=== PATIENT | female | born 1985 | race African-American/Black ===

== ENCOUNTER 2016-05-18 02:22 | Emergency (ER) | payer OTHER ==
[~2016-05-18 02:22] MED LIST: HYDR-3535 PO
[2016-05-18 02:24] VITALS: BP 118/76; PULSE 114; RESP 20; TEMP 98.7; O2SAT 90
[2016-05-18] MEDS ORDERED: SODIUM CHLOR 0.9% 1000 ML INJ 1,000 ML IV ONE (07:38)
[2016-05-18 07:41] LABS: MEAN CORPUSCULAR HGB CONC 36.5 % (32.0-36.0)
[2016-05-18] MEDS ORDERED: diphenhydrAMINE HCL 50 MG/ML VIAL IV ONE (07:45)
[2016-05-18] MEDS ORDERED: HYDROmorphone HCL PF 1 MG/ML VIAL IVS ONE ×2 (07:45→09:45)
[2016-05-18] MEDS ORDERED: SODIUM CHLORIDE 0.9% FLUSH 5 ML FLUSH IVF PRN (07:45)
[2016-05-18 08:18] VITALS: BP 115/66; PULSE 79; RESP 16; O2SAT 95
--- NOTE | 2016-05-18 08:32 | PD ---
HPI Chief Complaint: Sickle Cell Time Seen by Provider: 07:30 Travel History International Travel<30 days: No Contact w/Intl Traveler<30days: No Traveled to known affect area: No History of Present Illness HPI 30-year-old woman with chronic pain and sickle cell anemia presents to the emergency department complaining exacerbation of her chronic back and legs pain , consistent with previous pain crises. She is otherwise well. No fevers or chills. No other complaints. She takes methadone for chronic pain, and Lortab for breakthrough. History Past Medical History Narrative Medical Chronic Back Pain Depression Hemosiderosis History of Sickle-Cell Anemia Influenza Vaccination: Yes PNEUMOCCOCAL Vaccine (Year): 2 LMP: 05/18/2016 : 2 Para: 1 Social History Alcohol Use: No Tobacco Use: No Allergies-Medications (Allergen,Severity, Reaction): Coded Allergies: Morphine (Verified Allergy, Severe, RASH, 05/18/16) *MDRO Multi-Drug Resistant Organism (Verified Allergy, Unknown, 05/18/16) Reported Meds & Prescriptions Reported Meds & Active Scripts Active Reported Lortab (Hydrocodone-Acetaminophen) 10-325 Mg Tab 1 Tab PO Q4H PRN Review of Systems Except as stated in HPI: all other systems reviewed are Neg Physical Exam Narrative GENERAL: 30 year-old woman, SKIN: Warm and dry. HEAD: Atraumatic. Normocephalic. CARDIOVASCULAR: Regular rate and rhythm. No murmur appreciated. RESPIRATORY: No accessory muscle use. Clear to auscultation. Breath sounds equal bilaterally. GASTROINTESTINAL: Abdomen soft, non-tender, nondistended. Hepatic and splenic margins not palpable. MUSCULOSKELETAL: No obvious deformities. No edema. NEUROLOGICAL: Awake and alert. No obvious cranial nerve deficits. Motor grossly within normal limits. Normal speech. Data Data Last Documented VS Vital Signs Date Time Temp Pulse Resp B/P Pulse Ox O2 Delivery O2 Flow Rate FiO2 05/18/16 08:18 79 16 115/66 95 Room Air 05/18/16 02:24 98.7 Orders Complete Blood Count With Diff (05/18/16 07:38) Comprehensive Metabolic Panel (05/18/16 07:38) Retic Count (05/18/16 07:38) Ecg Monitoring (05/18/16 07:38) Iv Access Insert/Monitor (05/18/16 07:38) Oximetry (05/18/16 07:38) Sodium Chloride 0.9% Flush (Ns Flush) (05/18/16 07:45) Sodium Chlor 0.9% 1000 Ml Inj (Ns 1000 M (05/18/16 07:38) Diphenhydramine Inj (Benadryl Inj) (05/18/16 07:45) Hydromorphone Pf Inj (Dilaudid Pf Inj) (05/18/16 07:45) Hydromorphone Pf Inj (Dilaudid Pf Inj) (05/18/16 09:45) Diphenhydramine Inj (Benadryl Inj) (05/18/16 09:38) Labs Laboratory Tests Test 05/18/16 08:30 White Blood Count 8.4 TH/MM3 Red Blood Count 2.49 MIL/MM3 Hemoglobin 7.4 GM/DL Hematocrit 20.2 % Mean Corpuscular Volume 81.0 FL Mean Corpuscular Hemoglobin 29.6 PG Mean Corpuscular Hemoglobin 36.5 % Concent Red Cell Distribution Width 23.5 % Platelet Count 355 TH/MM3 Mean Platelet Volume 8.2 FL Neutrophils (%) (Auto) 42.1 % Lymphocytes (%) (Auto) 42.8 % Monocytes (%) (Auto) 10.0 % Eosinophils (%) (Auto) 2.9 % Basophils (%) (Auto) 2.2 % Neutrophils # (Auto) 3.5 TH/MM3 Lymphocytes # (Auto) 3.6 TH/MM3 Monocytes # (Auto) 0.8 TH/MM3 Eosinophils # (Auto) 0.2 TH/MM3 Basophils # (Auto) 0.2 TH/MM3 CBC Comment AUTO DIFF Reticulocyte Count 6.6 % Absolute Reticulocyte Count 163.3 MIL/L Sodium Level 140 MEQ/L Potassium Level 3.6 MEQ/L Chloride Level 107 MEQ/L Carbon Dioxide Level 26.7 MEQ/L Anion Gap 6 MEQ/L Blood Urea Nitrogen 6 MG/DL Creatinine 0.41 MG/DL Estimat Glomerular Filtration 218 ML/MIN Rate Random Glucose 89 MG/DL Calcium Level 8.4 MG/DL Total Bilirubin 2.2 MG/DL Aspartate Amino Transf 66 U/L (AST/SGOT) Alanine Aminotransferase 14 U/L (ALT/SGPT) Alkaline Phosphatase 91 U/L Total Protein 7.5 GM/DL Albumin 3.4 GM/DL [facility] Medical Decision Making Medical Screen Exam Complete: Yes Emergency Medical Condition: Yes Interpretation(s) LABS: CBC remarkable for mild anemia. Retake count 6.6 Total bili 2.2 Differential Diagnosis Acute on chronic back pain, sickle cell crisis, other Narrative Course Medical decision making INITIAL: 30 year-old woman, well-known to the ED, sickle cell with frequent crises. We'll check labs, fluids and pain medicine, likely secondary dose and discharge. Diagnosis Primary Impression: Anemia, sickle cell with crisis Additional Instructions: Continue current medications. 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 Return to the emergency department for any new or worsening symptoms. Med/Other Pt SpecificInfo: No Change to Meds Disposition: 01 DISCHARGE HOME Condition: Stable Balbir Clark MD May 18, 2016 08:32
[2016-05-18 09:16] LABS: AUTOMATED NEUTROPHIL # 3.5 TH/MM3 (1.8-7.7); BASOPHIL # 0.2 TH/MM3 (0-0.2); BASOPHIL % 2.2 % (0.0-2.0); EOSINOPHIL # 0.2 TH/MM3 (0-0.4); EOSINOPHIL % 2.9 % (0.0-4.0); LYMPH % 42.8 % (9.0-44.0); LYMPHOCYTE # 3.6 TH/MM3 (1.0-4.8); MEAN CORPUSCULAR HEMOGLOBIN 29.6 PG (27.0-34.0); NEUT % 42.1 % (16.0-70.0); PLATELET COUNT 355 TH/MM3 (150-450); RED BLOOD COUNT 2.49 MIL/MM3 (4.00-5.30); RED CELL DISTRIBUTION WIDTH 23.5 % (11.6-17.2); RETIC % 6.6 % (0.4-3.0); WHITE BLOOD COUNT 8.4 TH/MM3 (4.0-11.0)
[2016-05-18 09:18] LABS: HEMO FLAGS AUTO DIFF; REVIEW FLAG FINAL
[2016-05-18 09:19] LABS: HEMATOCRIT 20.2 % (35.0-46.0)
[2016-05-18 09:23] LABS: ALKALINE PHOSPHATASE 91 U/L (45-117); ALT (GPT) 14 U/L (10-53); ANION GAP 6 MEQ/L (5-15); AST (GOT) 66 U/L (15-37); BICARBONATE 26.7 MEQ/L (21.0-32.0); BLOOD UREA NITROGEN 6 MG/DL (7-18); CHLORIDE 107 MEQ/L (98-107); GLOMERULAR FILTRATION RATE 218 ML/MIN (>89); SODIUM (NA) 140 MEQ/L (136-145); TOTAL BILIRUBIN ADULT 2.2 MG/DL (0.2-1.0)
[2016-05-18 09:24] LABS: POTASSIUM 3.6 MEQ/L (3.5-5.1)
[2016-05-18] MEDS ORDERED: diphenhydrAMINE HCL 50 MG/ML VIAL IV PUSH STA (09:38)
[2016-05-18 10:00] LABS: BANDS 3 % (0-6); CORRECTED NUCLEATED RBC 3 /100 WBC (0-0); EOSINOPHILS 5 % (0-4); MYELOCYTES 1 % (0-0); POLYS (SEG NEUTROPHILS) 44 % (16-70); SICKLE CELLS 2+ (NORMAL); WBC DIFF SAMPLE 100
[2016-05-18 10:01] LABS: PLATELET ESTIMATE SMEAR NORMAL (NORMAL); PLATELET MORPHOLOGY NORMAL (NORMAL); POLYCHROMASIA 2.6 % (0.0-1.9); SCAN/DIFF FINAL DIFF MANUAL; TARGET CELLS 1+ (NORMAL)
[2016-08-26] MEDS ORDERED: METH5TAB PO (11:49)
== END 2016-05-18 10:37 | disposition home or self-care (01) ==
LOC: NEPC 02:22
DX: D57.00 Hb-SS disease with crisis, unspecified (principal); G89.29 Other chronic pain
CPT/HCPCS: 80053; 85007; 85027; 85044; 96361; 96374; 96375; 96376; 99284; J1170; J1200; J1642; J7030

== ENCOUNTER 2016-06-01 02:46 | Emergency (ER) | payer OTHER ==
[~2016-06-01] VITALS: Ht 152.4 cm; Wt 58.0 kg
[2016-06-01 02:51] VITALS: BP 109/75; PULSE 96; RESP 20; TEMP 98.7; O2SAT 88
[2016-06-01] MEDS ORDERED: SODIUM CHLOR 0.9% 1000 ML INJ 1,000 ML IV ONE (03:15)
[2016-06-01] MEDS ORDERED: SODIUM CHLORIDE 0.9% FLUSH 5 ML FLUSH IVF PRN (03:15)
[2016-06-01] MEDS ORDERED: diphenhydrAMINE HCL 50 MG/ML VIAL IV PUSH ONE ×2 (04:00→08:00)
[2016-06-01] MEDS ORDERED: HYDROmorphone HCL PF 1 MG/ML VIAL IV PUSH ONE ×2 (04:00→08:00)
--- NOTE | 2016-06-01 04:19 | PD ---
HPI Chief Complaint: Sickle Cell Time Seen by Provider: 03:15 Travel History International Travel<30 days: No Contact w/Intl Traveler<30days: No Traveled to known affect area: No History of Present Illness HPI 30-year-old female with history of sickle cell anemia here for evaluation of sickle cell pain crisis. The patient reports having lower back pain and pain in her bilateral lower extremities. This is typical for her sickle cell crisis. She states that her menstrual period started yesterday and this usually triggers her sickle cell disease. No chest pain or dyspnea. No fevers or chills. PFSH Past Medical History Hx Anticoagulant Therapy: No Anemia: Yes (WITH MULTIPLE BLOOD TRANSFUSIONS) Arthritis: No Asthma: No Autoimmune Disease: No Blood Disorders: Yes (SICKLE CELL) Anxiety: No Depression: No Cancer: No Cardiovascular Problems: Yes (CHEST PAIN) Chemotherapy: No Chest Pain: Yes Congestive Heart Failure: No COPD: No Cerebrovascular Accident: No Diabetes: No Diminished Hearing: No Endocrine: No Gastrointestinal Disorders: Yes (GALLSTONES) GERD: No Genitourinary: Yes (MULTIPLE UTIs) Headaches: Yes Hiatal Hernia: No Immune Disorder: No Implanted Vascular Access Dvce: Yes (RIGHT CHEST INFUSAPORT) Insomnia: Yes Kidney Stones: No Musculoskeletal: Yes (BACK PAIN) Neurologic: Yes Psychiatric: No Reproductive: No Respiratory: No Immunizations Current: Yes Migraines: No Pneumonia: Yes Radiation Therapy: No Renal Failure: No Seizures: No Sickle Cell Disease: Yes Thyroid Disease: No Ulcer: No PNEUMOCCOCAL Vaccine (Year): 2 : 2 Para: 1 Miscarriage: 1 : 0 Tubal Ligation: Yes (IN 2007) Past Surgical History Abdominal Surgery: Yes AICD: No Arteriovenous Shunt: No Body Medical Devices: INFUSAPORT Cardiac Surgery: No Section: Yes Cholecystectomy: Yes (1994) Ear Surgery: No Endocrine Surgery: No Eye Surgery: No Genitourinary Surgery: No Gynecologic Surgery: Yes Insulin Pump: No Joint Replacement: No Oral Surgery: Yes Pacemaker: No Thoracic Surgery: Yes (CHEST PORT ) Tonsillectomy: Yes Other Surgery: Yes (RIGHT CHEST INFUSAPORT ) Social History Alcohol Use: No Tobacco Use: No Substance Use: No Allergies-Medications (Allergen,Severity, Reaction): Coded Allergies: Morphine (Verified Allergy, Severe, RASH, 06/01/16) *MDRO Multi-Drug Resistant Organism (Verified Allergy, Unknown, 06/01/16) Reported Meds & Prescriptions Reported Meds & Active Scripts Active Reported Lortab (Hydrocodone-Acetaminophen) 10-325 Mg Tab 1 Tab PO Q4H PRN Review of Systems Except as stated in HPI: all other systems reviewed are Neg Physical Exam Narrative GENERAL: Well-developed, well-nourished, comfortable, on cell phone, no acute distress. SKIN: Warm and dry. No rash. HEAD: Atraumatic. Normocephalic. EYES: Pupils equal and round. No scleral icterus. No injection or drainage. ENT: Mucous membranes pink and moist. NECK: Trachea midline. No JVD. No nuchal rigidity. CARDIOVASCULAR: Regular rate and rhythm. RESPIRATORY: No accessory muscle use. Clear to auscultation. Breath sounds equal bilaterally. GASTROINTESTINAL: Abdomen soft, non-tender, nondistended. MUSCULOSKELETAL: No obvious deformities. No clubbing. No cyanosis. No edema. No warmth or swelling to any joint or extremity. No dactylitis. Normal range of motion in all joints and extremities. NEUROLOGICAL: Awake and alert. No obvious cranial nerve deficits. Motor grossly within normal limits. Normal speech. PSYCHIATRIC: Appropriate mood and affect; insight and judgment normal. Data Data Last Documented VS Vital Signs Date Time Temp Pulse Resp B/P Pulse Ox O2 Delivery O2 Flow Rate FiO2 06/01/16 07:15 83 16 116/74 99 Nasal Cannula 2 06/01/16 02:51 98.7 Orders Basic Metabolic Panel (Bmp) (06/01/16 03:15) Complete Blood Count With Diff (06/01/16 03:15) Retic Count (06/01/16 03:15) Ecg Monitoring (06/01/16 03:15) Iv Access Insert/Monitor (06/01/16 03:15) Oximetry (06/01/16 03:15) Sodium Chloride 0.9% Flush (Ns Flush) (06/01/16 03:15) Sodium Chlor 0.9% 1000 Ml Inj (Ns 1000 M (06/01/16 03:15) Hydromorphone Pf Inj (Dilaudid Pf Inj) (06/01/16 04:00) Diphenhydramine Inj (Benadryl Inj) (06/01/16 04:00) Urinalysis - C+S If Indicated (06/01/16 03:47) Labs Laboratory Tests Test 06/01/16 05:40 White Blood Count 11.2 TH/MM3 Red Blood Count 2.13 MIL/MM3 Hemoglobin 6.5 GM/DL Hematocrit 17.6 % Mean Corpuscular Volume 82.9 FL Mean Corpuscular Hemoglobin 30.7 PG Mean Corpuscular Hemoglobin 37.0 % Concent Red Cell Distribution Width 24.2 % Platelet Count 293 TH/MM3 Mean Platelet Volume 8.6 FL Neutrophils (%) (Auto) 43.7 % Lymphocytes (%) (Auto) 44.1 % Monocytes (%) (Auto) 9.1 % Eosinophils (%) (Auto) 2.5 % Basophils (%) (Auto) 0.6 % Neutrophils # (Auto) 4.9 TH/MM3 Lymphocytes # (Auto) 4.9 TH/MM3 Monocytes # (Auto) 1.0 TH/MM3 Eosinophils # (Auto) 0.3 TH/MM3 Basophils # (Auto) 0.1 TH/MM3 CBC Comment AUTO DIFF Reticulocyte Count 9.3 % Absolute Reticulocyte Count 198.0 MIL/L Sodium Level 142 MEQ/L Potassium Level 3.9 MEQ/L Chloride Level 109 MEQ/L Carbon Dioxide Level 26.1 MEQ/L Anion Gap 7 MEQ/L Blood Urea Nitrogen 8 MG/DL Creatinine 0.49 MG/DL Estimat Glomerular Filtration 177 ML/MIN Rate Random Glucose 106 MG/DL Calcium Level 7.7 MG/DL [facility] Medical Decision Making Medical Screen Exam Complete: Yes Emergency Medical Condition: Yes Medical Record Reviewed: Yes Differential Diagnosis Sickle cell crisis, anemia, septic arthritis unlikely Narrative Course Vital signs reviewed. CBC is remarkable for hemoglobin 6.5, hematocrit 17.6. The patient's baseline hemoglobin is between 7 and 8. BMP is unremarkable. Call placed to the patient's contact lens polisher. At approximately 7:00 PM patient was signed out to Dr. Clark who will follow with hematology recommendations. Mitchell Bonds MD Jun 01, 2016 04:19
[2016-06-01 06:36] LABS: AUTOMATED NEUTROPHIL # 4.9 TH/MM3 (1.8-7.7); BASOPHIL # 0.1 TH/MM3 (0-0.2); BASOPHIL % 0.6 % (0.0-2.0); EOSINOPHIL # 0.3 TH/MM3 (0-0.4); EOSINOPHIL % 2.5 % (0.0-4.0); LYMPH % 44.1 % (9.0-44.0); LYMPHOCYTE # 4.9 TH/MM3 (1.0-4.8); MEAN CELL VOLUME 82.9 FL (80.0-100.0); MEAN CORPUSCULAR HEMOGLOBIN 30.7 PG (27.0-34.0); MONO % 9.1 % (0.0-8.0); NEUT % 43.7 % (16.0-70.0); PLATELET COUNT 293 TH/MM3 (150-450); RED BLOOD COUNT 2.13 MIL/MM3 (4.00-5.30); RED CELL DISTRIBUTION WIDTH 24.2 % (11.6-17.2); RETIC % 9.3 % (0.4-3.0); WHITE BLOOD COUNT 11.2 TH/MM3 (4.0-11.0)
[2016-06-01 06:39] LABS: BICARBONATE 26.1 MEQ/L (21.0-32.0)
[2016-06-01 06:43] LABS: POTASSIUM 3.9 MEQ/L (3.5-5.1)
[2016-06-01 06:44] LABS: HEMO FLAGS AUTO DIFF; REVIEW FLAG FINAL
[2016-06-01 06:48] LABS: HEMATOCRIT 17.6 % (35.0-46.0)
[2016-06-01 07:15] VITALS: BP_SYST 116; BP_DIAS 60; BP_DIAS 74; PULSE 83; RESP 16; RESP 18; O2SAT 99
[2016-06-01] MEDS ORDERED: SODIUM CHLOR 0.9% 250 ML INJ 250 ML IV ONE (07:45)
--- NOTE | 2016-06-01 07:53 | PD ---
Data Data Last Documented VS Vital Signs Date Time Temp Pulse Resp B/P Pulse Ox O2 Delivery O2 Flow Rate FiO2 06/01/16 07:15 83 16 116/74 99 Nasal Cannula 2 06/01/16 02:51 98.7 Orders Basic Metabolic Panel (Bmp) (06/01/16 03:15) Complete Blood Count With Diff (06/01/16 03:15) Retic Count (06/01/16 03:15) Ecg Monitoring (06/01/16 03:15) Iv Access Insert/Monitor (06/01/16 03:15) Oximetry (06/01/16 03:15) Sodium Chloride 0.9% Flush (Ns Flush) (06/01/16 03:15) Sodium Chlor 0.9% 1000 Ml Inj (Ns 1000 M (06/01/16 03:15) Hydromorphone Pf Inj (Dilaudid Pf Inj) (06/01/16 04:00) Diphenhydramine Inj (Benadryl Inj) (06/01/16 04:00) Urinalysis - C+S If Indicated (06/01/16 03:47) Chest, Single Ap (06/01/16 ) Sodium Chlor 0.9% 250 Ml Inj (Ns 250 Ml (06/01/16 07:45) Hydromorphone Pf Inj (Dilaudid Pf Inj) (06/01/16 08:00) Diphenhydramine Inj (Benadryl Inj) (06/01/16 08:00) Heparin Central Flush (Heparin Central F (06/01/16 08:00) Labs Laboratory Tests Test 06/01/16 05:40 White Blood Count 11.2 TH/MM3 Red Blood Count 2.13 MIL/MM3 Hemoglobin 6.5 GM/DL Hematocrit 17.6 % Mean Corpuscular Volume 82.9 FL Mean Corpuscular Hemoglobin 30.7 PG Mean Corpuscular Hemoglobin 37.0 % Concent Red Cell Distribution Width 24.2 % Platelet Count 293 TH/MM3 Mean Platelet Volume 8.6 FL Neutrophils (%) (Auto) 43.7 % Lymphocytes (%) (Auto) 44.1 % Monocytes (%) (Auto) 9.1 % Eosinophils (%) (Auto) 2.5 % Basophils (%) (Auto) 0.6 % Neutrophils # (Auto) 4.9 TH/MM3 Lymphocytes # (Auto) 4.9 TH/MM3 Monocytes # (Auto) 1.0 TH/MM3 Eosinophils # (Auto) 0.3 TH/MM3 Basophils # (Auto) 0.1 TH/MM3 CBC Comment AUTO DIFF Reticulocyte Count 9.3 % Absolute Reticulocyte Count 198.0 MIL/L Sodium Level 142 MEQ/L Potassium Level 3.9 MEQ/L Chloride Level 109 MEQ/L Carbon Dioxide Level 26.1 MEQ/L Anion Gap 7 MEQ/L Blood Urea Nitrogen 8 MG/DL Creatinine 0.49 MG/DL Estimat Glomerular Filtration 177 ML/MIN Rate Random Glucose 106 MG/DL Calcium Level 7.7 MG/DL [facility] Supervised Visit with KYE: Yes Interpretation(s) My review of chest x-ray: Negative. LABS: CBC remarkable for mild leukocytosis, anemia with a hemoglobin of 6.5, reticulocyte count 9.3 BMP is unremarkable Narrative Course Qian Ching, 30 year-old woman with sickle cell disease, one on the myself in the emergency department. Presents with back pain and vaso-occlusive pain crisis. Hemoglobin is low at 6.5. Normally runs about 7.5 or so. Pulse ox is a little bit low on arrival. Chest x-rays clear. She's also due to start her menstrual cycle shortly. I spoke with Dr. Lock, on-call for Dr. Stone. Recommended transfusion of 1 unit. I spoke with the patient. Planning on admission for transfusion. She has a lot of antibodies and states that normally takes some time to get blood ready for her. She does not want to stay in the hospital. States she was not expecting to stay. She sees oncology every week. She would like to be discharged and follow-up with him to arrange for transfusion. She is very familiar with this disease process, and states she will return if she has any complications including worsening anemia symptoms. Diagnosis Primary Impression: Anemia, sickle cell with crisis Additional Instruction: Return to the emergency department for any chest pain, shortness of breath, or any other new or worsening symptoms. Follow-up with oncology as scheduled. Return to the emergency department for any new or worsening symptoms. Med/Other Pt SpecificInfo: No Change to Meds Disposition: 01 DISCHARGE HOME Condition: Stable Balbir Clark MD Jun 01, 2016 07:53
[2016-06-01 08:16] VITALS: BP 118/79; PULSE 82; RESP 18; TEMP 98.3; O2SAT 97
[2016-06-01 08:27] LABS: CORRECTED NUCLEATED RBC 10 /100 WBC (0-0); EOSINOPHILS 6 % (0-4); POLYS (SEG NEUTROPHILS) 36 % (16-70); WBC DIFF SAMPLE 100
[2016-06-01 08:28] LABS: PLATELET ESTIMATE SMEAR NORMAL (NORMAL); PLATELET MORPHOLOGY ENLARGED (NORMAL); SCAN/DIFF FINAL DIFF MANUAL; SICKLE CELLS 3+ (NORMAL)
[2016-06-01 08:29] LABS: HOWELL-JOLLY BODIES PRESENT (NONE SEEN)
--- NOTE | 2016-06-01 09:18 | RADRPT ---
EXAM DATE/TIME: 06/01/2016 07:49 [facility] COMPARISON: CHEST SINGLE AP, April 28, 2016, 14:43. INDICATIONS : Shortness of breath. MEDICAL HISTORY : Sickle Cell disease. SURGICAL HISTORY : Port placement. ENCOUNTER: Initial ACUITY: 1 day PAIN SCORE: 0/10 LOCATION: chest FINDINGS: Portable AP view of the chest demonstrates a normal-sized cardiac silhouette. No effusion, consolidat ion, or pneumothorax is visualized. The bones and soft tissues demonstrate no acute abnormality. Lung s are underinflated. Right chest wall [id number] remains present. CONCLUSION: Underinflation without acute finding identified. Michael Ellsworth MD on June 01, 2016 at 9:16 Board Certified Radiologist. This report was verified electronically.
[2016-08-26] MEDS ORDERED: METH5TAB PO (11:49)
== END 2016-06-01 09:52 | disposition home or self-care (01) ==
LOC: NEPE 02:46
DX: D64.9 Anemia, unspecified (principal); D57.1 Sickle-cell disease without crisis
CPT/HCPCS: 71010; 80048; 85007; 85027; 85044; 96361; 96374; 96375; 96376; 99284; J1170; J1200; J7030

== ENCOUNTER 2016-06-09 05:43 | Emergency (ER) | payer OTHER ==
[~2016-06-09] VITALS: Ht 152.4 cm; Wt 58.0 kg
[2016-06-09 05:46] VITALS: BP 132/58; PULSE 95; RESP 16; TEMP 98.3; O2SAT 96
[2016-06-09] MEDS ORDERED: ONDANSETRON HCL 4 MG/2 ML VIAL IV PUSH ONE (06:30)
[2016-06-09] MEDS ORDERED: diphenhydrAMINE HCL 50 MG/ML VIAL IV PUSH ONE (06:30)
[2016-06-09] MEDS ORDERED: SODIUM CHLOR 0.9% 1000 ML INJ 1,000 ML IV ONE (06:30)
[2016-06-09] MEDS ORDERED: HYDROmorphone HCL PF 1 MG/ML VIAL IV PUSH ONE (06:30)
[2016-06-09 06:31] LABS: MEAN CORPUSCULAR HGB CONC 37.1 % (32.0-36.0)
--- NOTE | 2016-06-09 06:33 | PD ---
HPI Chief Complaint: Sickle Cell Time Seen by Provider: 06:18 Travel History International Travel<30 days: No Contact w/Intl Traveler<30days: No Traveled to known affect area: No History of Present Illness HPI 30-year-old female complains of back pain extremity pain. Patient has history of sickle cell disease. Patient has frequent sickle cell crisis. Patient states that she started having back pain extremity pain 2 days ago. Patient denies any fever chills. Patient denies any coughing congestion. Patient denies any headache. Patient denies any chest pain or shortness of breath. Patient denies abdominal pain. PFSH Past Medical History Hx Anticoagulant Therapy: No Anemia: Yes (WITH MULTIPLE BLOOD TRANSFUSIONS) Arthritis: No Asthma: No Autoimmune Disease: No Blood Disorders: Yes (SICKLE CELL) Anxiety: No Depression: No Cancer: No Cardiovascular Problems: Yes (CHEST PAIN) Chemotherapy: No Chest Pain: Yes Congestive Heart Failure: No COPD: No Cerebrovascular Accident: No Diabetes: No Diminished Hearing: No Endocrine: No Gastrointestinal Disorders: Yes (GALLSTONES) GERD: No Genitourinary: Yes (MULTIPLE UTIs) Headaches: Yes Hiatal Hernia: No Immune Disorder: No Implanted Vascular Access Dvce: Yes (RIGHT CHEST INFUSAPORT) Insomnia: Yes Kidney Stones: No Musculoskeletal: Yes (BACK PAIN) Neurologic: Yes Psychiatric: No Reproductive: No Respiratory: No Immunizations Current: Yes Migraines: No Pneumonia: Yes Radiation Therapy: No Renal Failure: No Seizures: No Sickle Cell Disease: Yes Thyroid Disease: No Ulcer: No PNEUMOCCOCAL Vaccine (Year): 2 ?: Not LMP: 06/07/16 : 2 Para: 1 Miscarriage: 1 : 0 Tubal Ligation: Yes (IN 2007) Past Surgical History Abdominal Surgery: Yes AICD: No Arteriovenous Shunt: No Body Medical Devices: INFUSAPORT Cardiac Surgery: No Section: Yes Cholecystectomy: Yes (1994) Ear Surgery: No Endocrine Surgery: No Eye Surgery: No Genitourinary Surgery: No Gynecologic Surgery: Yes Insulin Pump: No Joint Replacement: No Oral Surgery: Yes Pacemaker: No Thoracic Surgery: Yes (CHEST PORT ) Tonsillectomy: Yes Other Surgery: Yes (RIGHT CHEST INFUSAPORT ) Social History Alcohol Use: No Tobacco Use: No Substance Use: No Allergies-Medications (Allergen,Severity, Reaction): Coded Allergies: Morphine (Verified Allergy, Severe, RASH, 06/09/16) *MDRO Multi-Drug Resistant Organism (Verified Allergy, Unknown, 06/09/16) Reported Meds & Prescriptions Reported Meds & Active Scripts Active No Active Prescriptions or Reported Medications Review of Systems General / Constitutional: No: Fever Eyes: No: Visual changes HENT: No: Headaches Cardiovascular: No: Chest Pain or Discomfort Respiratory: No: Shortness of Breath Gastrointestinal: No: Abdominal Pain Genitourinary: No: Dysuria Musculoskeletal: No: Pain Skin: No Rash Neurologic: No: Weakness Psychiatric: No: Depression Endocrine: No: Polydipsia Hematologic/Lymphatic: No: Easy Bruising Physical Exam Narrative GENERAL: Well-nourished, well-developed patient. SKIN: Warm and dry. HEAD: Normocephalic. EYES: No scleral icterus. No injection or drainage. NECK: Supple, trachea midline. No JVD or lymphadenopathy. CARDIOVASCULAR: Regular rate and rhythm without murmurs, gallops, or rubs. RESPIRATORY: Breath sounds equal bilaterally. No accessory muscle use. GASTROINTESTINAL: Abdomen soft, non-tender, nondistended. MUSCULOSKELETAL: No cyanosis, or edema. BACK: Nontender without obvious deformity. No CVA tenderness. Data Data Last Documented VS Vital Signs Date Time Temp Pulse Resp B/P Pulse Ox O2 Delivery O2 Flow Rate FiO2 06/09/16 06:22 98 Nasal Cannula 1 06/09/16 05:46 98.3 95 16 132/58 Orders Hydromorphone Pf Inj (Dilaudid Pf Inj) (06/09/16 06:30) Ondansetron Inj (Zofran Inj) (06/09/16 06:30) Diphenhydramine Inj (Benadryl Inj) (06/09/16 06:30) Sodium Chlor 0.9% 1000 Ml Inj (Ns 1000 M (06/09/16 06:30) Complete Blood Count With Diff (06/09/16 06:27) Basic Metabolic Panel (Bmp) (06/09/16 06:27) Iv Access Insert/Monitor (06/09/16 06:27) Ecg Monitoring (06/09/16 06:27) Oximetry (06/09/16 06:27) Retic Count (06/09/16 06:27) Heparin Central Flush (Heparin Central F (06/09/16 06:30) Labs Laboratory Tests Test 06/09/16 06:30 White Blood Count 13.9 TH/MM3 Red Blood Count 1.82 MIL/MM3 Hemoglobin 5.6 GM/DL Hematocrit 15.0 % Mean Corpuscular Volume 82.4 FL Mean Corpuscular Hemoglobin 30.6 PG Mean Corpuscular Hemoglobin 37.1 % Concent Red Cell Distribution Width 24.9 % Platelet Count 329 TH/MM3 Mean Platelet Volume 8.6 FL Neutrophils (%) (Auto) % Lymphocytes (%) (Auto) % Monocytes (%) (Auto) % Eosinophils (%) (Auto) % Basophils (%) (Auto) % Neutrophils # (Auto) TH/MM3 Lymphocytes # (Auto) TH/MM3 Monocytes # (Auto) TH/MM3 Eosinophils # (Auto) TH/MM3 Basophils # (Auto) TH/MM3 CBC Comment AUTO DIFF Reticulocyte Count 10.3 % Absolute Reticulocyte Count 188.5 MIL/L MDM Medical Decision Making Medical Screen Exam Complete: Yes Emergency Medical Condition: Yes Interpretation(s) 7 AM. CBC WBC 13.9. Hemoglobin 5.6 hematocrit hematocrit 15.0. Patient normally: Hemoglobin 6.5-7.1. Differential Diagnosis Differential diagnoses include sickle cell crisis. Narrative Course 30-year-old female with back pain and extremity pain. History of sickle cell disease with frequent sickle cell crisis. Normal saline solution 1 L IV bolus. Dilaudid 1 mg IV. Zofran 4 mg IV. Benadryl 50 mg IV. I advised patient she should be admitted for blood transfusion. Patient states that she will see her physician in a.m. for office visit and blood transfusion. Patient does not want to stay today. Diagnosis Primary Impression: Anemia, sickle cell with crisis Patient Instructions: General Instructions Additional Instructions: Encourage by mouth fluid. Follow-up with personal physician in a.m. Return if worse. Med/Other Pt SpecificInfo: No Change to Meds Scripts No Active Prescriptions or Reported Meds Disposition: 01 DISCHARGE HOME Condition: Stable Brent Gonsalves MD Jun 09, 2016 06:33
[2016-06-09 06:46] LABS: MEAN CELL VOLUME 82.4 FL (80.0-100.0); MEAN CORPUSCULAR HEMOGLOBIN 30.6 PG (27.0-34.0); PLATELET COUNT 329 TH/MM3 (150-450); RED BLOOD COUNT 1.82 MIL/MM3 (4.00-5.30); RED CELL DISTRIBUTION WIDTH 24.9 % (11.6-17.2); RETIC % 10.3 % (0.4-3.0); WHITE BLOOD COUNT 13.9 TH/MM3 (4.0-11.0)
[2016-06-09 06:49] LABS: HEMO FLAGS AUTO DIFF
[2016-06-09 07:05] LABS: BICARBONATE 24.7 MEQ/L (21.0-32.0)
[2016-06-09 07:34] LABS: BANDS 2 % (0-6); CORRECTED NUCLEATED RBC 1 /100 WBC (0-0); EOSINOPHILS 1 % (0-4); NEUTROPHIL # MANUAL DIFF 3.6 TH/MM3 (1.8-7.7); PLATELET ESTIMATE SMEAR NORMAL (NORMAL); PLATELET MORPHOLOGY NORMAL (NORMAL); POLYS (SEG NEUTROPHILS) 24 % (16-70); SCAN/DIFF FINAL DIFF MANUAL; WBC DIFF SAMPLE 100
[2016-06-09 07:36] LABS: SICKLE CELLS 3+ (NORMAL)
[2016-06-09 07:39] LABS: HOWELL-JOLLY BODIES PRESENT (NONE SEEN); POLYCHROMASIA 2.4 % (0.0-1.9)
[2016-06-09 07:41] LABS: TARGET CELLS 1+ (NORMAL)
[2016-08-26] MEDS ORDERED: METH5TAB PO (11:49)
== END 2016-06-09 07:37 | disposition home or self-care (01) ==
LOC: NEPE 05:43
DX: D57.00 Hb-SS disease with crisis, unspecified (principal); D64.9 Anemia, unspecified; M79.602 Pain in left arm; M79.601 Pain in right arm; M79.605 Pain in left leg; M79.604 Pain in right leg
CPT/HCPCS: 80048; 85007; 85027; 85044; 96361; 96374; 96375; 99284; J1170; J1200; J1642; J2405; J7030

== ENCOUNTER 2016-06-21 00:44 | Emergency (ER) | payer OTHER ==
[~2016-06-21] VITALS: Ht 152.4 cm; Wt 57.0 kg
[2016-06-21 00:47] VITALS: BP 129/73; PULSE 87; RESP 16; TEMP 98.2; O2SAT 94
[2016-06-21] MEDS ORDERED: SODIUM CHLOR 0.9% 1000 ML INJ 1,000 ML IV ONE (00:56)
[2016-06-21 00:58] LABS: MEAN CORPUSCULAR HGB CONC 37.2 % (32.0-36.0)
[2016-06-21] MEDS ORDERED: diphenhydrAMINE HCL 50 MG/ML VIAL IV ONE (01:00)
[2016-06-21] MEDS ORDERED: HYDROmorphone HCL PF 1 MG/ML VIAL IVS ONE ×3 (01:00→03:00)
[2016-06-21] MEDS ORDERED: SODIUM CHLORIDE 0.9% FLUSH 5 ML FLUSH IVF PRN ×2 (01:00→03:30)
--- NOTE | 2016-06-21 01:28 | PD ---
HPI Chief Complaint: Sickle Cell Time Seen by Provider: 00:53 Travel History International Travel<30 days: No Contact w/Intl Traveler<30days: No Traveled to known affect area: No History of Present Illness HPI 30-year-old woman with chronic pain and sickle cell anemia presents to the emergency department complaining exacerbation of her chronic back and legs pain , consistent with previous pain crises. She is otherwise well. No fevers or chills. No other complaints. She takes methadone for chronic pain, and Lortab for breakthrough. History Past Medical History Narrative Medical Chronic Back Pain Depression Hemosiderosis History of Sickle-Cell Anemia PNEUMOCCOCAL Vaccine (Year): 2 LMP: LAST WK : 2 Para: 1 Social History Alcohol Use: No Tobacco Use: No Allergies-Medications (Allergen,Severity, Reaction): Coded Allergies: Morphine (Verified Allergy, Severe, RASH, 06/21/16) *MDRO Multi-Drug Resistant Organism (Verified Allergy, Unknown, 06/21/16) Reported Meds & Prescriptions Reported Meds & Active Scripts Active No Active Prescriptions or Reported Medications Review of Systems Except as stated in HPI: all other systems reviewed are Neg Physical Exam Narrative GENERAL: 30 year-old woman, appears uncomfortable, tearful and crying. SKIN: Warm and dry. HEAD: Atraumatic. Normocephalic. CARDIOVASCULAR: Regular rate and rhythm. No murmur appreciated. RESPIRATORY: No accessory muscle use. Clear to auscultation. Breath sounds equal bilaterally. GASTROINTESTINAL: Abdomen soft, non-tender, nondistended. Hepatic and splenic margins not palpable. MUSCULOSKELETAL: No obvious deformities. No edema. NEUROLOGICAL: Awake and alert. No obvious cranial nerve deficits. Motor grossly within normal limits. Normal speech. Data Data Last Documented VS Vital Signs Date Time Temp Pulse Resp B/P Pulse Ox O2 Delivery O2 Flow Rate FiO2 06/21/16 02:51 78 16 99/60 98 Room Air 06/21/16 00:47 98.2 Orders Basic Metabolic Panel (Bmp) (06/21/16 00:56) Complete Blood Count With Diff (06/21/16 00:56) Retic Count (06/21/16 00:56) Ecg Monitoring (06/21/16 00:56) Iv Access Insert/Monitor (06/21/16 00:56) Oximetry (06/21/16 00:56) Sodium Chloride 0.9% Flush (Ns Flush) (06/21/16 01:00) Sodium Chlor 0.9% 1000 Ml Inj (Ns 1000 M (06/21/16 00:56) Diphenhydramine Inj (Benadryl Inj) (06/21/16 01:00) Hydromorphone Pf Inj (Dilaudid Pf Inj) (06/21/16 01:00) Hydromorphone Pf Inj (Dilaudid Pf Inj) (06/21/16 02:15) Diphenhydramine Inj (Benadryl Inj) (06/21/16 02:15) Hydromorphone Pf Inj (Dilaudid Pf Inj) (06/21/16 03:00) Labs Laboratory Tests Test 06/21/16 01:31 White Blood Count 7.6 TH/MM3 Red Blood Count 2.33 MIL/MM3 Hemoglobin 7.2 GM/DL Hematocrit 19.3 % Mean Corpuscular Volume 82.9 FL Mean Corpuscular Hemoglobin 30.9 PG Mean Corpuscular Hemoglobin 37.2 % Concent Red Cell Distribution Width 25.0 % Platelet Count 326 TH/MM3 Mean Platelet Volume 7.9 FL Neutrophils (%) (Auto) 37.9 % Lymphocytes (%) (Auto) 46.2 % Monocytes (%) (Auto) 11.4 % Eosinophils (%) (Auto) 3.2 % Basophils (%) (Auto) 1.3 % Neutrophils # (Auto) 2.9 TH/MM3 Lymphocytes # (Auto) 3.5 TH/MM3 Monocytes # (Auto) 0.9 TH/MM3 Eosinophils # (Auto) 0.2 TH/MM3 Basophils # (Auto) 0.1 TH/MM3 CBC Comment AUTO DIFF Differential Total Cells 100 Counted Neutrophils % (Manual) 30 % Lymphocytes % 57 % Monocytes % 10 % Eosinophils % 3 % Neutrophils # (Manual) 2.3 TH/MM3 Nucleated Red Blood Cells 6 /100 WBC Differential Comment FINAL DIFF MANUAL Platelet Estimate NORMAL Platelet Morphology Comment NORMAL Polychromasia 4.0 % Sickle Cells 2+ Fields-Kinta Bodies PRESENT Reticulocyte Count 6.8 % Absolute Reticulocyte Count 157.7 MIL/L Sodium Level 141 MEQ/L Potassium Level 3.6 MEQ/L Chloride Level 106 MEQ/L Carbon Dioxide Level 27.1 MEQ/L Anion Gap 8 MEQ/L Blood Urea Nitrogen 5 MG/DL Creatinine 0.44 MG/DL Estimat Glomerular Filtration 201 ML/MIN Rate Random Glucose 83 MG/DL Calcium Level 8.5 MG/DL [facility] Medical Decision Making Medical Screen Exam Complete: Yes Emergency Medical Condition: Yes Interpretation(s) LABS: CBC remarkable for hemoglobin 7.2/medical 19.3 Reticulocyte count 6.8 BMP unremarkable Differential Diagnosis Vaso-occlusive pain crisis, strain or sprain, other Narrative Course Medical decision-making 30 year-old woman, well-known to me, in the ER with her typical vaso-occlusive pain in her back and legs. She had pretty significant anemia earlier, but did not wish to be admitted. She followed up as an outpatient doctor to recheck labs and hemoglobin was improved. We'll check labs, pain medicine, reassess. FINAL: Patient continues to be anemic. Offered admission for transfusion but declined. 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 Diagnosis Primary Impression: Anemia Additional Impression: Sickle cell disease Additional Instructions: Follow-up with your warehouse general laborer. Return to the emergency department for any new or worsening symptoms. Scripts No Active Prescriptions or Reported Meds Disposition: 01 DISCHARGE HOME Condition: Stable Balbir Clark MD Jun 21, 2016 01:28
[2016-06-21 01:46] LABS: AUTOMATED NEUTROPHIL # 2.9 TH/MM3 (1.8-7.7); BASOPHIL # 0.1 TH/MM3 (0-0.2); BASOPHIL % 1.3 % (0.0-2.0); EOSINOPHIL # 0.2 TH/MM3 (0-0.4); EOSINOPHIL % 3.2 % (0.0-4.0); LYMPH % 46.2 % (9.0-44.0); LYMPHOCYTE # 3.5 TH/MM3 (1.0-4.8); MEAN CELL VOLUME 82.9 FL (80.0-100.0); MEAN CORPUSCULAR HEMOGLOBIN 30.9 PG (27.0-34.0); MONO % 11.4 % (0.0-8.0); NEUT % 37.9 % (16.0-70.0); PLATELET COUNT 326 TH/MM3 (150-450); RED BLOOD COUNT 2.33 MIL/MM3 (4.00-5.30); RETIC % 6.8 % (0.4-3.0); WHITE BLOOD COUNT 7.6 TH/MM3 (4.0-11.0)
[2016-06-21 01:47] LABS: HEMO FLAGS AUTO DIFF; REVIEW FLAG AUTO DIFF
[2016-06-21 01:51] LABS: HEMATOCRIT 19.3 % (35.0-46.0)
[2016-06-21 02:00] LABS: BICARBONATE 27.1 MEQ/L (21.0-32.0)
[2016-06-21 02:01] LABS: POTASSIUM 3.6 MEQ/L (3.5-5.1)
[2016-06-21] MEDS ORDERED: diphenhydrAMINE HCL 50 MG/ML VIAL IV PUSH ONE (02:15)
[2016-06-21 02:28] LABS: CORRECTED NUCLEATED RBC 6 /100 WBC (0-0); EOSINOPHILS 3 % (0-4); NEUTROPHIL # MANUAL DIFF 2.3 TH/MM3 (1.8-7.7); POLYS (SEG NEUTROPHILS) 30 % (16-70); SCAN/DIFF FINAL DIFF MANUAL; SICKLE CELLS 2+ (NORMAL); WBC DIFF SAMPLE 100
[2016-06-21 02:29] LABS: HOWELL-JOLLY BODIES PRESENT (NONE SEEN); PLATELET ESTIMATE SMEAR NORMAL (NORMAL); PLATELET MORPHOLOGY NORMAL (NORMAL)
[2016-06-21 02:51] VITALS: BP 99/60; PULSE 78; RESP 16; O2SAT 98
[2016-08-26] MEDS ORDERED: METH5TAB PO (11:49)
== END 2016-06-21 03:35 | disposition home or self-care (01) ==
LOC: NEPC 00:44
DX: D64.9 Anemia, unspecified (principal); D57.1 Sickle-cell disease without crisis; G89.29 Other chronic pain; M54.9 Dorsalgia, unspecified; M79.605 Pain in left leg; M79.604 Pain in right leg
CPT/HCPCS: 80048; 85007; 85027; 85044; 96361; 96374; 96375; 96376; 99284; J1170; J1200; J1642; J7030

== ENCOUNTER 2016-06-29 02:50 | Emergency (ER) | payer OTHER ==
[~2016-06-29] VITALS: Ht 152.4 cm; Wt 57.0 kg
[2016-06-29 02:53] VITALS: BP 124/62; PULSE 111; RESP 18; TEMP 99.1; O2SAT 93
[2016-06-29] MEDS ORDERED: HYDR-3535 PO (03:37)
[2016-06-29] MEDS ORDERED: SODIUM CHLOR 0.9% 1000 ML INJ 1,000 ML IV ONE (03:41)
[2016-06-29] MEDS ORDERED: SODIUM CHLORIDE 0.9% FLUSH 5 ML FLUSH IVF PRN (03:45)
[2016-06-29] MEDS ORDERED: KETOROLAC TROMETHAMINE 30 MG/ML (IVP) VIAL IVP ONE (03:45)
[2016-06-29] MEDS ORDERED: ONDANSETRON HCL 4 MG/2 ML VIAL IVP ONE (03:45)
[2016-06-29] MEDS ORDERED: HYDROmorphone HCL PF 2 MG/ML VIAL IV PUSH ONE ×2 (04:00→05:30)
[2016-06-29] MEDS ORDERED: diphenhydrAMINE HCL 50 MG/ML VIAL IV PUSH ONE (04:15)
--- NOTE | 2016-06-29 04:32 | PD ---
HPI . Back pain and leg pain Chief Complaint: Sickle Cell Time Seen by Provider: 03:39 Travel History International Travel<30 days: No Contact w/Intl Traveler<30days: No Traveled to known affect area: No History of Present Illness HPI Patient presents stating that she is in sickle cell crisis. She is complaining with back and leg pain. She states that this is her normal sickle cell crisis. Pain has been unrelieved by Lortab. She denies any chest pain, shortness of breath, fever. She is not having any urinary tract symptoms. She is not having any vomiting or diarrhea. PFSH Past Medical History Hx Anticoagulant Therapy: No Anemia: Yes (WITH MULTIPLE BLOOD TRANSFUSIONS) Arthritis: No Asthma: No Autoimmune Disease: No Blood Disorders: Yes (SICKLE CELL) Anxiety: No Depression: No Cancer: No Cardiovascular Problems: Yes (CHEST PAIN) Chemotherapy: No Chest Pain: Yes Congestive Heart Failure: No COPD: No Cerebrovascular Accident: No Diabetes: No Diminished Hearing: No Endocrine: No Gastrointestinal Disorders: Yes (GALLSTONES) GERD: No Genitourinary: Yes (MULTIPLE UTIs) Headaches: Yes Hiatal Hernia: No Immune Disorder: No Implanted Vascular Access Dvce: Yes (RIGHT CHEST INFUSAPORT) Insomnia: Yes Kidney Stones: No Musculoskeletal: Yes (BACK PAIN) Neurologic: Yes Psychiatric: No Reproductive: No Respiratory: No Immunizations Current: Yes Migraines: No Pneumonia: Yes Radiation Therapy: No Renal Failure: No Seizures: No Sickle Cell Disease: Yes Thyroid Disease: No Ulcer: No PNEUMOCCOCAL Vaccine (Year): 2 ?: Not LMP: NOW : 2 Para: 1 Miscarriage: 1 : 0 Tubal Ligation: Yes (IN 2007) Past Surgical History Abdominal Surgery: Yes AICD: No Arteriovenous Shunt: No Body Medical Devices: INFUSAPORT Cardiac Surgery: No Section: Yes Cholecystectomy: Yes (1994) Ear Surgery: No Endocrine Surgery: No Eye Surgery: No Genitourinary Surgery: No Gynecologic Surgery: Yes Insulin Pump: No Joint Replacement: No Oral Surgery: Yes Pacemaker: No Thoracic Surgery: Yes (CHEST PORT ) Tonsillectomy: Yes Other Surgery: Yes (RIGHT CHEST INFUSAPORT ) Social History Alcohol Use: No Tobacco Use: No Substance Use: No Allergies-Medications (Allergen,Severity, Reaction): Coded Allergies: Morphine (Verified Allergy, Severe, RASH, 06/29/16) *MDRO Multi-Drug Resistant Organism (Verified Allergy, Unknown, 06/29/16) Reported Meds & Prescriptions Reported Meds & Active Scripts Active Reported Lortab (Hydrocodone-Acetaminophen) 10-325 Mg Tab 1 Tab PO Q6H PRN Review of Systems Except as stated in HPI: all other systems reviewed are Neg General / Constitutional: No: Fever, Chills Cardiovascular: No: Chest Pain or Discomfort Respiratory: No: Cough, Shortness of Breath Gastrointestinal: No: Nausea, Vomiting Genitourinary: No: Urgency, Frequency, Dysuria Musculoskeletal: Positive: Myalgias Physical Exam Narrative GENERAL: She looks pretty comfortable lying on the stretcher. SKIN: Warm and dry. HEAD: Atraumatic. Normocephalic. EYES: Pupils equal and round. ENT: No nasal bleeding or discharge. Mucous membranes pink and moist. NECK: Trachea midline. Neck is supple. CARDIOVASCULAR: Regular rate and rhythm. Heart sounds are normal. RESPIRATORY: No accessory muscle use. Lungs are clear. GASTROINTESTINAL: Abdomen soft, non-tender, nondistended. MUSCULOSKELETAL: No obvious deformities. No edema. Back and legs are nontender to palpation. NEUROLOGICAL: Awake and alert. No obvious cranial nerve deficits. Motor grossly within normal limits. Normal speech. PSYCHIATRIC: Appropriate mood and affect; insight and judgment normal. Data Data Last Documented VS Vital Signs Date Time Temp Pulse Resp B/P Pulse Ox O2 Delivery O2 Flow Rate FiO2 06/29/16 03:33 18 06/29/16 02:53 99.1 111 124/62 93 Room Air Orders Basic Metabolic Panel (Bmp) (06/29/16 03:41) Complete Blood Count With Diff (06/29/16 03:41) Retic Count (06/29/16 03:41) Iv Access Insert/Monitor (06/29/16 03:41) Ketorolac Inj (Toradol Inj) (06/29/16 03:45) Ondansetron Inj (Zofran Inj) (06/29/16 03:45) Sodium Chloride 0.9% Flush (Ns Flush) (06/29/16 03:45) Sodium Chlor 0.9% 1000 Ml Inj (Ns 1000 M (06/29/16 03:41) Hydromorphone Pf Inj (Dilaudid Pf Inj) (06/29/16 04:00) Diphenhydramine Inj (Benadryl Inj) (06/29/16 04:15) Labs Laboratory Tests Test 06/29/16 03:05 White Blood Count 9.4 TH/MM3 Red Blood Count 2.28 MIL/MM3 Hemoglobin 7.1 GM/DL Hematocrit 19.2 % Mean Corpuscular Volume 84.0 FL Mean Corpuscular Hemoglobin 31.1 PG Mean Corpuscular Hemoglobin 37.0 % Concent Red Cell Distribution Width 24.8 % Platelet Count 352 TH/MM3 Mean Platelet Volume 8.4 FL Neutrophils (%) (Auto) 39.6 % Lymphocytes (%) (Auto) 47.2 % Monocytes (%) (Auto) 9.1 % Eosinophils (%) (Auto) 2.6 % Basophils (%) (Auto) 1.5 % Neutrophils # (Auto) 3.7 TH/MM3 Lymphocytes # (Auto) 4.4 TH/MM3 Monocytes # (Auto) 0.9 TH/MM3 Eosinophils # (Auto) 0.2 TH/MM3 Basophils # (Auto) 0.1 TH/MM3 CBC Comment AUTO DIFF Reticulocyte Count 10.5 % Absolute Reticulocyte Count 238.4 MIL/L Sodium Level 139 MEQ/L Potassium Level 3.5 MEQ/L Chloride Level 103 MEQ/L Carbon Dioxide Level 26.2 MEQ/L Anion Gap 10 MEQ/L Blood Urea Nitrogen 4 MG/DL Creatinine 0.57 MG/DL Estimat Glomerular Filtration 149 ML/MIN Rate Random Glucose 110 MG/DL Calcium Level 8.1 MG/DL MDM Medical Decision Making Medical Screen Exam Complete: Yes Emergency Medical Condition: Yes Differential Diagnosis My differential diagnosis of sickle cell disease includes but is not limited to vaso-occlusive crisis, acute chest syndrome, occult infection, electrolyte disturbance, drug-seeking behavior. Narrative Course Patient presents stating that she is in sickle cell crisis. She looks pretty comfortable. We have accessed her port to give her IV fluids, IV Toradol, IV Dilaudid and IV Benadryl. CBC and reticulocyte count are pending as well as a BMP. CBC & BMP Diagram 06/29/16 03:05 H&H is at her baseline. When I went in to check on the patient, she was doing fine. She reported that she was comfortable being discharged home in a little while. She told me that they usually always gave her a dose of Dilaudid and Benadryl just prior to discharge. I explained to the patient that it had not yet been 4 hours since her last dose of Benadryl. Therefore a second dose of Benadryl was not warranted at this point. She then became somewhat argumentative with the nurse. However, she now states that she is ready to go. I will give her a dose of Dilaudid prior to discharge but not a second dose of Benadryl. Diagnosis Primary Impression: Anemia, sickle cell with crisis Patient Instructions: General Instructions, Sickle Cell Crisis (ED) Disposition: 01 DISCHARGE HOME Condition: Stable Inna Delacruz MD Jun 29, 2016 04:32
[2016-06-29 04:35] LABS: AUTOMATED NEUTROPHIL # 3.7 TH/MM3 (1.8-7.7); BASOPHIL # 0.1 TH/MM3 (0-0.2); BASOPHIL % 1.5 % (0.0-2.0); EOSINOPHIL # 0.2 TH/MM3 (0-0.4); EOSINOPHIL % 2.6 % (0.0-4.0); LYMPH % 47.2 % (9.0-44.0); LYMPHOCYTE # 4.4 TH/MM3 (1.0-4.8); MEAN CORPUSCULAR HEMOGLOBIN 31.1 PG (27.0-34.0); MONO % 9.1 % (0.0-8.0); NEUT % 39.6 % (16.0-70.0); PLATELET COUNT 352 TH/MM3 (150-450); RED BLOOD COUNT 2.28 MIL/MM3 (4.00-5.30); RED CELL DISTRIBUTION WIDTH 24.8 % (11.6-17.2); RETIC % 10.5 % (0.4-3.0); WHITE BLOOD COUNT 9.4 TH/MM3 (4.0-11.0)
[2016-06-29 04:36] LABS: HEMO FLAGS AUTO DIFF; REVIEW FLAG AUTO DIFF
[2016-06-29 04:38] LABS: HEMATOCRIT 19.2 % (35.0-46.0)
[2016-06-29 04:40] LABS: BICARBONATE 26.2 MEQ/L (21.0-32.0)
[2016-06-29 04:41] LABS: POTASSIUM 3.5 MEQ/L (3.5-5.1)
[2016-06-29 06:18] LABS: BASOPHILS 1 % (0-2); CORRECTED NUCLEATED RBC 3 /100 WBC (0-0); EOSINOPHILS 2 % (0-4); NEUTROPHIL # MANUAL DIFF 3.1 TH/MM3 (1.8-7.7); POLYS (SEG NEUTROPHILS) 33 % (16-70); WBC DIFF SAMPLE 100
[2016-06-29 06:21] LABS: PLATELET ESTIMATE SMEAR HIGH (NORMAL); PLATELET MORPHOLOGY GIANT (NORMAL); SCAN/DIFF FINAL DIFF MANUAL; SICKLE CELLS 3+ (NORMAL); TARGET CELLS 2+ (NORMAL)
[2016-08-26] MEDS ORDERED: METH5TAB PO (11:49)
== END 2016-06-29 06:15 | disposition home or self-care (01) ==
LOC: NEPC 02:50
DX: D57.00 Hb-SS disease with crisis, unspecified (principal); D64.9 Anemia, unspecified; M54.9 Dorsalgia, unspecified; M79.604 Pain in right leg; M79.605 Pain in left leg; Z86.2 Personal history of diseases of the blood and blood-forming organs and certain disorders involving the immune mechanism; Z86.79 Personal history of other diseases of the circulatory system; Z87.19 Personal history of other diseases of the digestive system; Z87.448 Personal history of other diseases of urinary system; Z87.39 Personal history of other diseases of the musculoskeletal system and connective tissue; Z86.69 Personal history of other diseases of the nervous system and sense organs; Z87.01 Personal history of pneumonia (recurrent)
CPT/HCPCS: 80048; 85007; 85027; 85044; 96361; 96374; 96375; 96376; 99284; J1170; J1200; J1642; J1885; J2405; J7030

== ENCOUNTER 2016-07-02 02:57 | Emergency (ER) | payer OTHER ==
[~2016-07-02] VITALS: Ht 152.4 cm; Wt 58.0 kg
[2016-07-02 03:01] VITALS: BP 110/78; PULSE 101; RESP 18; TEMP 99.3; O2SAT 92
[2016-07-02] MEDS ORDERED: SODIUM CHLOR 0.9% 1000 ML INJ 1,000 ML IV ONE (04:34)
[2016-07-02 04:36] LABS: MEAN CORPUSCULAR HGB CONC 37.2 % (32.0-36.0)
[2016-07-02] MEDS ORDERED: SODIUM CHLORIDE 0.9% FLUSH 5 ML FLUSH IVF PRN (04:45)
[2016-07-02 04:53] VITALS: RESP 16; O2SAT 100
[2016-07-02 05:02] LABS: AUTOMATED NEUTROPHIL # 5.1 TH/MM3 (1.8-7.7); BASOPHIL # 0.1 TH/MM3 (0-0.2); EOSINOPHIL # 0.3 TH/MM3 (0-0.4); EOSINOPHIL % 2.6 % (0.0-4.0); LYMPH % 35.1 % (9.0-44.0); LYMPHOCYTE # 3.5 TH/MM3 (1.0-4.8); MEAN CELL VOLUME 81.9 FL (80.0-100.0); MEAN CORPUSCULAR HEMOGLOBIN 30.4 PG (27.0-34.0); MONO % 10.8 % (0.0-8.0); NEUT % 50.5 % (16.0-70.0); PLATELET COUNT 335 TH/MM3 (150-450); RED BLOOD COUNT 2.23 MIL/MM3 (4.00-5.30); RED CELL DISTRIBUTION WIDTH 26.3 % (11.6-17.2); RETIC % 10.5 % (0.4-3.0)
[2016-07-02 05:09] LABS: HEMO FLAGS AUTO DIFF; REVIEW FLAG AUTO DIFF
[2016-07-02 05:11] LABS: HEMATOCRIT 18.3 % (35.0-46.0)
--- NOTE | 2016-07-02 05:28 | PD ---
HPI Chief Complaint: Sickle Cell Time Seen by Provider: 04:34 Travel History International Travel<30 days: No Contact w/Intl Traveler<30days: No Traveled to known affect area: No History of Present Illness HPI The patient is a 30 year old female who presents to the [facility] emergency department with a history of low back pain and knee pain that began to worsen today at work. The patient reports that the pain is similar to her prior sickle cell pain crises. The patient reports that she was just seen in the emergency department recently, approximately 3 days ago and her hemoglobin at that time was noted to be 7.1. She reports that she does not usually get transfused until her hemoglobin is less than 6.5 as her oncologist is concerned about iron overload. The patient reports that she became concerned that her hemoglobin may drop further as on Friday she started her menstrual cycle. She reports that it usually lasts 5-7 days. The patient reports that she took a Lortab 10 for pain earlier in the evening. The patient denies any recent fevers , cough, congestion, neck pain, chest pain, shortness of breath, abdominal pain , vomiting, diarrhea, urinary symptoms, or neurologic symptoms. LMP: Last Friday [facility] Past Medical History Narrative Medical The patient's past medical history is significant for chronic back pain, depression, edema cirrhosis, sickle cell anemia, history of recurrent sickle cell pain crisis Hx Anticoagulant Therapy: No Anemia: Yes (WITH MULTIPLE BLOOD TRANSFUSIONS) Arthritis: No Asthma: No Autoimmune Disease: No Blood Disorders: Yes (SICKLE CELL) Anxiety: No Depression: No Cancer: No Cardiovascular Problems: Yes (CHEST PAIN) Chemotherapy: No Chest Pain: Yes Congestive Heart Failure: No COPD: No Cerebrovascular Accident: No Diabetes: No Diminished Hearing: No Endocrine: No Gastrointestinal Disorders: Yes (GALLSTONES) GERD: No Genitourinary: Yes (MULTIPLE UTIs) Headaches: Yes Hiatal Hernia: No Immune Disorder: No Implanted Vascular Access Dvce: Yes (RIGHT CHEST INFUSAPORT) Insomnia: Yes Kidney Stones: No Musculoskeletal: Yes (BACK PAIN) Neurologic: Yes Psychiatric: No Reproductive: No Respiratory: No Immunizations Current: Yes Migraines: No Pneumonia: Yes Radiation Therapy: No Renal Failure: No Seizures: No Sickle Cell Disease: Yes Thyroid Disease: No Ulcer: No Tetanus Vaccination: < 5 Years Influenza Vaccination: Yes PNEUMOCCOCAL Vaccine (Year): 2 ?: Not LMP: NOW : 2 Para: 1 Miscarriage: 1 : 0 Tubal Ligation: Yes (IN 2007) Past Surgical History Narrative Surgical The patient's past surgical history is significant for cholecystectomy, tonsillectomy, bilateral tubal ligation, Abdominal Surgery: Yes AICD: No Arteriovenous Shunt: No Body Medical Devices: INFUSAPORT Cardiac Surgery: No Section: Yes Cholecystectomy: Yes (1994) Ear Surgery: No Endocrine Surgery: No Eye Surgery: No Genitourinary Surgery: No Gynecologic Surgery: Yes Insulin Pump: No Joint Replacement: No Oral Surgery: Yes Pacemaker: No Thoracic Surgery: Yes (CHEST PORT ) Tonsillectomy: Yes Other Surgery: Yes (RIGHT CHEST INFUSAPORT ) Social History Alcohol Use: No Tobacco Use: No Substance Use: No Allergies-Medications (Allergen,Severity, Reaction): Coded Allergies: Morphine (Verified Allergy, Severe, RASH, 07/02/16) *MDRO Multi-Drug Resistant Organism (Verified Allergy, Unknown, 07/02/16) Reported Meds & Prescriptions Reported Meds & Active Scripts Active Reported Lortab (Hydrocodone-Acetaminophen) 10-325 Mg Tab 1 Tab PO Q6H PRN Review of Systems Except as stated in HPI: all other systems reviewed are Neg General / Constitutional: No: Fever, Chills Eyes: No: Visual changes HENT: No: Headaches Cardiovascular: No: Chest Pain or Discomfort Respiratory: No: Shortness of Breath Gastrointestinal: No: Nausea, Vomiting, Diarrhea, Abdominal Pain Genitourinary: No: Dysuria Musculoskeletal: Positive: Myalgias, Pain Skin: No Rash Neurologic: No: Weakness Psychiatric: No: Depression Endocrine: No: Polydipsia Hematologic/Lymphatic: No: Easy Bruising Physical Exam Narrative General: The patient is a well-developed well-nourished female in no acute distress. Head and Neck exam: Head is normocephalic atraumatic. Eyes: Pupils are equal round and reactive to light. Nose: Midline septum with pink mucous membranes Mouth: Dentition unremarkable. Moist mucus membranes. Posterior oropharynx is not erythematous. No tonsillar hypertrophy. Uvula midline. Airway patent. Neck: No palpable lymphadenopathy. No nuchal rigidity. No thyromegaly. Cardiovascular: Regular rate and rhythm without murmurs, gallops, or rubs. Lungs: Clear to auscultation bilaterally. No wheezes, rhonchi, or rales. Abdomen: Soft, without tenderness to palpation in all 4 quadrants of the abdomen. No guarding, rebound, or rigidity. Normal bowel sounds are audible. Extremities: No clubbing, cyanosis, or edema. 2+ pulses in all 4 extremities. The patient reports having bilateral knee pain, however there is no effusion, no erythema, no ligament laxity. No crepitus or deformity. Back: No costovertebral angle tenderness to palpation. Neurologic Exam: Grossly nonfocal. Skin Exam: No rash noted. Intact skin that is warm and dry. Data Data Last Documented VS Vital Signs Date Time Temp Pulse Resp B/P Pulse Ox O2 Delivery O2 Flow Rate FiO2 07/02/16 04:53 16 100 Nasal Cannula 2 07/02/16 03:01 99.3 101 110/78 Orders Complete Blood Count With Diff (07/02/16 04:34) Comprehensive Metabolic Panel (07/02/16 04:34) Retic Count (07/02/16 04:34) Ecg Monitoring (07/02/16 04:34) Iv Access Insert/Monitor (07/02/16 04:34) Oximetry (07/02/16 04:34) Oxygen Administration (07/02/16 04:34) Sodium Chloride 0.9% Flush (Ns Flush) (07/02/16 04:45) Sodium Chlor 0.9% 1000 Ml Inj (Ns 1000 M (07/02/16 04:34) Hydromorphone Pf Inj (Dilaudid Pf Inj) (07/02/16 05:30) Ondansetron Inj (Zofran Inj) (07/02/16 05:30) Diphenhydramine Inj (Benadryl Inj) (07/02/16 05:30) Hydromorphone Pf Inj (Dilaudid Pf Inj) (07/02/16 07:00) Ondansetron Inj (Zofran Inj) (07/02/16 07:00) Diphenhydramine Inj (Benadryl Inj) (07/02/16 07:00) Heparin Central Flush (Heparin Central F (07/02/16 07:15) Labs Laboratory Tests Test 07/02/16 04:45 White Blood Count 10.0 TH/MM3 Red Blood Count 2.23 MIL/MM3 Hemoglobin 6.8 GM/DL Hematocrit 18.3 % Mean Corpuscular Volume 81.9 FL Mean Corpuscular Hemoglobin 30.4 PG Mean Corpuscular Hemoglobin 37.2 % Concent Red Cell Distribution Width 26.3 % Platelet Count 335 TH/MM3 Mean Platelet Volume 8.0 FL Neutrophils (%) (Auto) 50.5 % Lymphocytes (%) (Auto) 35.1 % Monocytes (%) (Auto) 10.8 % Eosinophils (%) (Auto) 2.6 % Basophils (%) (Auto) 1.0 % Neutrophils # (Auto) 5.1 TH/MM3 Lymphocytes # (Auto) 3.5 TH/MM3 Monocytes # (Auto) 1.1 TH/MM3 Eosinophils # (Auto) 0.3 TH/MM3 Basophils # (Auto) 0.1 TH/MM3 CBC Comment AUTO DIFF Differential Total Cells 100 Counted Neutrophils % (Manual) 49 % Band Neutrophils % 2 % Lymphocytes % 36 % Monocytes % 8 % Eosinophils % 3 % Basophils % 1 % Neutrophils # (Manual) 5.2 TH/MM3 Metamyelocytes 1 % Nucleated Red Blood Cells 8 /100 WBC Differential Comment FINAL DIFF MANUAL Platelet Estimate NORMAL Platelet Morphology Comment NORMAL Sickle Cells 2+ Fields-Dexter Bodies PRESENT Reticulocyte Count 10.5 % Absolute Reticulocyte Count 234.5 MIL/L Sodium Level 141 MEQ/L Potassium Level 3.5 MEQ/L Chloride Level 106 MEQ/L Carbon Dioxide Level 27.3 MEQ/L Anion Gap 8 MEQ/L Blood Urea Nitrogen 6 MG/DL Creatinine 0.49 MG/DL Estimat Glomerular Filtration 177 ML/MIN Rate Random Glucose 89 MG/DL Calcium Level 8.3 MG/DL Total Bilirubin 2.7 MG/DL Aspartate Amino Transf 72 U/L (AST/SGOT) Alanine Aminotransferase 16 U/L (ALT/SGPT) Alkaline Phosphatase 85 U/L Total Protein 7.6 GM/DL Albumin 3.4 GM/DL MDM Medical Decision Making Medical Screen Exam Complete: Yes Emergency Medical Condition: Yes Medical Record Reviewed: Yes Interpretation(s) Laboratory Tests Test 07/02/16 04:45 White Blood Count 10.0 TH/MM3 Red Blood Count 2.23 MIL/MM3 Hemoglobin 6.8 GM/DL Hematocrit 18.3 % Mean Corpuscular Volume 81.9 FL Mean Corpuscular Hemoglobin 30.4 PG Mean Corpuscular Hemoglobin 37.2 % Concent Red Cell Distribution Width 26.3 % Platelet Count 335 TH/MM3 Mean Platelet Volume 8.0 FL Neutrophils (%) (Auto) 50.5 % Lymphocytes (%) (Auto) 35.1 % Monocytes (%) (Auto) 10.8 % Eosinophils (%) (Auto) 2.6 % Basophils (%) (Auto) 1.0 % Neutrophils # (Auto) 5.1 TH/MM3 Lymphocytes # (Auto) 3.5 TH/MM3 Monocytes # (Auto) 1.1 TH/MM3 Eosinophils # (Auto) 0.3 TH/MM3 Basophils # (Auto) 0.1 TH/MM3 CBC Comment AUTO DIFF Differential Total Cells 100 Counted Neutrophils % (Manual) 49 % Band Neutrophils % 2 % Lymphocytes % 36 % Monocytes % 8 % Eosinophils % 3 % Basophils % 1 % Neutrophils # (Manual) 5.2 TH/MM3 Metamyelocytes 1 % Nucleated Red Blood Cells 8 /100 WBC Differential Comment FINAL DIFF MANUAL Platelet Estimate NORMAL Platelet Morphology Comment NORMAL Sickle Cells 2+ Fields-Dexter Bodies PRESENT Reticulocyte Count 10.5 % Absolute Reticulocyte Count 234.5 MIL/L Sodium Level 141 MEQ/L Potassium Level 3.5 MEQ/L Chloride Level 106 MEQ/L Carbon Dioxide Level 27.3 MEQ/L Anion Gap 8 MEQ/L Blood Urea Nitrogen 6 MG/DL Creatinine 0.49 MG/DL Estimat Glomerular Filtration 177 ML/MIN Rate Random Glucose 89 MG/DL Calcium Level 8.3 MG/DL Total Bilirubin 2.7 MG/DL Aspartate Amino Transf 72 U/L (AST/SGOT) Alanine Aminotransferase 16 U/L (ALT/SGPT) Alkaline Phosphatase 85 U/L Total Protein 7.6 GM/DL Albumin 3.4 GM/DL Differential Diagnosis Worsening anemia triggering sickle cell pain crisis, versus mild dehydration triggering sickle cell pain crisis Narrative Course During the course of the patients emergency department visit, the patients history, examination, and differential diagnosis were reviewed with the patient. The patient had her [id number] access. The patient was placed on 2 L nasal cannula O2. The patient was provided hydromorphone 1 mg IV, Zofran 4 mg IV, Benadryl 25 mg IV, normal saline 1 L IV fluid bolus. The patients laboratory studies were reviewed and remarkable for a hemoglobin of 6.8, Reportedly according to her above the threshold that her pediatric speech language pathologist would normally want to transfuse her at. CMP is remarkable for some BUN of 6, creatinine 0.49, total bilirubin 2.7, AST 72 The patient is instructed to follow-up with Dr. Perez, her oncologist for reexamination and possibly a repeat hemoglobin in 2 days. The patient is resting comfortably and feels better, is alert and in no distress. The patients results and examination findings were discussed with the patient. The repeat examination is unremarkable and benign. The history, exam, diagnostic testing, and current condition do not suggest any significant pathology to warrant further testing, continued ED treatment, admission, or surgical evaluation at this point. The vital signs have been stable. The patient does not have uncontrollable pain, intractable vomiting, or other significant symptoms. The patient's condition is stable and appropriate for discharge. The patient will pursue further outpatient evaluation with a primary care physician or other designated or consulting physician as indicated in the discharge instructions. The patient expressed understanding and was agreeable with this plan. Diagnosis Primary Impression: Sickle cell pain crisis Referrals: Juan Perez MD 2 days Patient Instructions: General Instructions, Narcotic given in the ED, Sickle Cell Crisis (ED), Sickle Cell Disease in Children (ED) Med/Other Pt SpecificInfo: No Change to Meds Disposition: 01 DISCHARGE HOME Condition: Stable Mignon Lin MD Jul 02, 2016 05:28 Mignon Lin MD Jul 02, 2016 05:28
[2016-07-02] MEDS ORDERED: HYDROmorphone HCL PF 1 MG/ML VIAL IV PUSH ONE ×2 (05:30→07:00)
[2016-07-02] MEDS ORDERED: ONDANSETRON HCL 4 MG/2 ML VIAL IV PUSH ONE ×2 (05:30→07:00)
[2016-07-02] MEDS ORDERED: diphenhydrAMINE HCL 50 MG/ML VIAL IV PUSH ONE ×2 (05:30→07:00)
[2016-07-02 05:35] LABS: ALKALINE PHOSPHATASE 85 U/L (45-117); ALT (GPT) 16 U/L (10-53); ANION GAP 8 MEQ/L (5-15); AST (GOT) 72 U/L (15-37); BICARBONATE 27.3 MEQ/L (21.0-32.0); BLOOD UREA NITROGEN 6 MG/DL (7-18); CHLORIDE 106 MEQ/L (98-107); GLOMERULAR FILTRATION RATE 177 ML/MIN (>89); POTASSIUM 3.5 MEQ/L (3.5-5.1); SODIUM (NA) 141 MEQ/L (136-145)
[2016-07-02 05:36] LABS: TOTAL BILIRUBIN ADULT 2.7 MG/DL (0.2-1.0)
[2016-07-02 05:54] LABS: BANDS 2 % (0-6); BASOPHILS 1 % (0-2); CORRECTED NUCLEATED RBC 8 /100 WBC (0-0); EOSINOPHILS 3 % (0-4); METAMYELOCYTES 1 % (0-1); NEUTROPHIL # MANUAL DIFF 5.2 TH/MM3 (1.8-7.7); POLYS (SEG NEUTROPHILS) 49 % (16-70); WBC DIFF SAMPLE 100
[2016-07-02 05:59] LABS: PLATELET ESTIMATE SMEAR NORMAL (NORMAL); PLATELET MORPHOLOGY NORMAL (NORMAL); SICKLE CELLS 2+ (NORMAL)
[2016-07-02 06:00] LABS: HOWELL-JOLLY BODIES PRESENT (NONE SEEN)
[2016-07-02 06:01] LABS: SCAN/DIFF FINAL DIFF MANUAL
[2016-08-26] MEDS ORDERED: METH5TAB PO (11:49)
== END 2016-07-02 07:43 | disposition home or self-care (01) ==
LOC: NEPC 02:57
DX: D57.00 Hb-SS disease with crisis, unspecified (principal); M25.569 Pain in unspecified knee; K74.60 Unspecified cirrhosis of liver; D64.9 Anemia, unspecified
CPT/HCPCS: 80053; 85007; 85027; 85044; 96361; 96374; 96375; 96376; 99284; J1170; J1200; J1642; J2405; J7030

== ENCOUNTER 2016-07-05 02:56 | Emergency (ER) | payer OTHER ==
[~2016-07-05] VITALS: Ht 152.4 cm; Wt 58.0 kg
[2016-07-05 02:58] VITALS: BP 109/65; PULSE 88; RESP 16; TEMP 99.1; O2SAT 90
[2016-07-05] MEDS ORDERED: SODIUM CHLOR 0.9% 1000 ML INJ 1,000 ML IV ONE (03:36)
[2016-07-05] MEDS ORDERED: SODIUM CHLORIDE 0.9% FLUSH 5 ML FLUSH IVF PRN (03:45)
[2016-07-05] MEDS ORDERED: ONDANSETRON HCL 4 MG/2 ML VIAL IVP ONE (03:45)
[2016-07-05] MEDS ORDERED: diphenhydrAMINE HCL 50 MG/ML VIAL IV ONE (03:45)
[2016-07-05] MEDS ORDERED: HYDROmorphone HCL PF 1 MG/ML VIAL IVS ONE ×2 (03:45→05:00)
[2016-07-05 04:14] LABS: AUTOMATED NEUTROPHIL # 3.1 TH/MM3 (1.8-7.7); BASOPHIL # 0.1 TH/MM3 (0-0.2); BASOPHIL % 1.3 % (0.0-2.0); EOSINOPHIL # 0.3 TH/MM3 (0-0.4); EOSINOPHIL % 3.2 % (0.0-4.0); LYMPH % 46.9 % (9.0-44.0); LYMPHOCYTE # 3.9 TH/MM3 (1.0-4.8); MEAN CELL VOLUME 83.5 FL (80.0-100.0); MEAN CORPUSCULAR HEMOGLOBIN 31.7 PG (27.0-34.0); MONO % 10.8 % (0.0-8.0); NEUT % 37.8 % (16.0-70.0); PLATELET COUNT 330 TH/MM3 (150-450); RED BLOOD COUNT 2.16 MIL/MM3 (4.00-5.30); RED CELL DISTRIBUTION WIDTH 28.4 % (11.6-17.2); WHITE BLOOD COUNT 8.2 TH/MM3 (4.0-11.0)
[2016-07-05 04:19] LABS: HEMO FLAGS AUTO DIFF
[2016-07-05 04:27] VITALS: O2SAT 98
[2016-07-05] MEDS ORDERED: SODIUM CHLOR 0.9% 250 ML INJ 250 ML IV ONE (04:45)
[2016-07-05 04:48] LABS: BICARBONATE 26.4 MEQ/L (21.0-32.0); POTASSIUM 3.4 MEQ/L (3.5-5.1)
[2016-07-05 05:00] LABS: BASOPHILS 3 % (0-2); CORRECTED NUCLEATED RBC 16 /100 WBC (0-0); EOSINOPHILS 3 % (0-4); MYELOCYTES 1 % (0-0); NEUTROPHIL # MANUAL DIFF 2.9 TH/MM3 (1.8-7.7); POLYS (SEG NEUTROPHILS) 34 % (16-70); SCAN/DIFF FINAL DIFF MANUAL; WBC DIFF SAMPLE 100
[2016-07-05] MEDS ORDERED: POTASSIUM CHLORIDE 20 MEQ CONTROLLED RELEASE TAB PO ONE (05:00)
--- NOTE | 2016-07-05 05:00 | PD ---
HPI Chief Complaint: Sickle Cell Time Seen by Provider: 03:36 Travel History International Travel<30 days: No Contact w/Intl Traveler<30days: No Traveled to known affect area: No History of Present Illness HPI 30-year-old female with history of sickle cell disease arrives to the ER complaining of back pain and leg pain and ankle pain. She had it for 5 days. Her sickle cell crises are typically associated menstruation. She was seen here and her hemoglobin was low. She received pain management and was discharged. She's had no fever or shortness of breath. No cough. PFSH Past Medical History Hx Anticoagulant Therapy: No Anemia: Yes (WITH MULTIPLE BLOOD TRANSFUSIONS) Arthritis: No Asthma: No Autoimmune Disease: No Blood Disorders: Yes (SICKLE CELL) Anxiety: No Depression: No Cancer: No Cardiovascular Problems: Yes (CHEST PAIN) Chemotherapy: No Chest Pain: Yes Congestive Heart Failure: No COPD: No Cerebrovascular Accident: No Diabetes: No Diminished Hearing: No Endocrine: No Gastrointestinal Disorders: Yes (GALLSTONES) GERD: No Genitourinary: Yes (MULTIPLE UTIs) Headaches: Yes Hiatal Hernia: No Immune Disorder: No Implanted Vascular Access Dvce: Yes (RIGHT CHEST INFUSAPORT) Insomnia: Yes Kidney Stones: No Musculoskeletal: Yes (BACK PAIN) Neurologic: Yes Psychiatric: No Reproductive: No Respiratory: No Immunizations Current: Yes Migraines: No Pneumonia: Yes Radiation Therapy: No Renal Failure: No Seizures: No Sickle Cell Disease: Yes Thyroid Disease: No Ulcer: No PNEUMOCCOCAL Vaccine (Year): 2 ?: Not : 2 Para: 1 Miscarriage: 1 : 0 Tubal Ligation: Yes (IN 2007) Past Surgical History Abdominal Surgery: Yes AICD: No Arteriovenous Shunt: No Body Medical Devices: INFUSAPORT Cardiac Surgery: No Section: Yes Cholecystectomy: Yes (1994) Ear Surgery: No Endocrine Surgery: No Eye Surgery: No Genitourinary Surgery: No Gynecologic Surgery: Yes Insulin Pump: No Joint Replacement: No Oral Surgery: Yes Pacemaker: No Thoracic Surgery: Yes (CHEST PORT ) Tonsillectomy: Yes Other Surgery: Yes (RIGHT CHEST INFUSAPORT ) Social History Alcohol Use: No Tobacco Use: No Substance Use: No Allergies-Medications (Allergen,Severity, Reaction): Coded Allergies: Morphine (Verified Allergy, Severe, RASH, 07/05/16) *MDRO Multi-Drug Resistant Organism (Verified Allergy, Unknown, 07/05/16) Reported Meds & Prescriptions Reported Meds & Active Scripts Active Reported Lortab (Hydrocodone-Acetaminophen) 10-325 Mg Tab 1 Tab PO Q6H PRN Review of Systems Except as stated in HPI: all other systems reviewed are Neg Physical Exam Narrative GENERAL: 30 yo F, WNWND, NAD SKIN: Warm and dry. HEAD: Atraumatic. Normocephalic. EYES: Pupils equal and round. No scleral icterus. No injection or drainage. ENT: No nasal bleeding or discharge. Mucous membranes pink and moist. NECK: Trachea midline. No JVD. CARDIOVASCULAR: Regular rate and rhythm. RESPIRATORY: No accessory muscle use. Clear to auscultation. Breath sounds equal bilaterally. R anterior chest wall hemaport. GASTROINTESTINAL: Abdomen soft, non-tender, nondistended. Hepatic and splenic margins not palpable. MUSCULOSKELETAL: Extremities without clubbing, cyanosis, or edema. No obvious deformities. NEUROLOGICAL: Awake and alert. No obvious cranial nerve deficits. Motor grossly within normal limits. Five out of 5 muscle strength in the arms and legs. Normal speech. PSYCHIATRIC: Appropriate mood and affect; insight and judgment normal. Data Data Last Documented VS Vital Signs Date Time Temp Pulse Resp B/P Pulse Ox O2 Delivery O2 Flow Rate FiO2 07/05/16 04:27 98 Room Air 07/05/16 02:58 99.1 88 16 109/65 VS reviewed Orders Basic Metabolic Panel (Bmp) (07/05/16 03:36) Complete Blood Count With Diff (07/05/16 03:36) Ecg Monitoring (07/05/16 03:36) Iv Access Insert/Monitor (07/05/16 03:36) Oximetry (07/05/16 03:36) Ondansetron Inj (Zofran Inj) (07/05/16 03:45) Sodium Chloride 0.9% Flush (Ns Flush) (07/05/16 03:45) Sodium Chlor 0.9% 1000 Ml Inj (Ns 1000 M (07/05/16 03:36) Hydromorphone Pf Inj (Dilaudid Pf Inj) (07/05/16 03:45) Diphenhydramine Inj (Benadryl Inj) (07/05/16 03:45) Heparin Central Flush (Heparin Central F (07/05/16 03:45) Heparin Central Flush (Heparin Central F (07/05/16 03:45) Red Blood Cells (Rbc) (07/05/16 04:41) Blood Product Administration .UPON TRANSFUSION (07/05/16 04:41) Sodium Chlor 0.9% 250 Ml Inj (Ns 250 Ml (07/05/16 04:45) Hydromorphone Pf Inj (Dilaudid Pf Inj) (07/05/16 05:00) Labs Laboratory Tests Test 07/05/16 04:00 White Blood Count 8.2 TH/MM3 Red Blood Count 2.16 MIL/MM3 Hemoglobin 6.9 GM/DL Hematocrit 18.0 % Mean Corpuscular Volume 83.5 FL Mean Corpuscular Hemoglobin 31.7 PG Mean Corpuscular Hemoglobin 38.0 % Concent Red Cell Distribution Width 28.4 % Platelet Count 330 TH/MM3 Mean Platelet Volume 8.1 FL Neutrophils (%) (Auto) 37.8 % Lymphocytes (%) (Auto) 46.9 % Monocytes (%) (Auto) 10.8 % Eosinophils (%) (Auto) 3.2 % Basophils (%) (Auto) 1.3 % Neutrophils # (Auto) 3.1 TH/MM3 Lymphocytes # (Auto) 3.9 TH/MM3 Monocytes # (Auto) 0.9 TH/MM3 Eosinophils # (Auto) 0.3 TH/MM3 Basophils # (Auto) 0.1 TH/MM3 CBC Comment AUTO DIFF Sodium Level 143 MEQ/L Potassium Level 3.4 MEQ/L Chloride Level 108 MEQ/L Carbon Dioxide Level 26.4 MEQ/L Anion Gap 9 MEQ/L Blood Urea Nitrogen 6 MG/DL Creatinine 0.41 MG/DL Estimat Glomerular Filtration 218 ML/MIN Rate Random Glucose 87 MG/DL Calcium Level 8.3 MG/DL MDM Medical Decision Making Medical Screen Exam Complete: Yes Emergency Medical Condition: Yes Medical Record Reviewed: Yes Differential Diagnosis Anemia, acute chest syndrome, septic arthritis, avascular necrosis, PE Narrative Course CBC & BMP Diagram 07/05/16 04:00 Pt will f/u with Dr Perez today for transfusion. Diagnosis Primary Impression: Anemia, sickle cell with crisis Additional Impression: Hypokalemia Referrals: Juan Perez MD 1 day Additional Instructions: You have a choice when it comes to health care, and we are glad that you chose [email or web address]. Hopefully, we have met your expectations on today's visit. You are welcome to return to [email or web address] at any time, as we are committed to meeting the health care needs of our community. Med/Other Pt SpecificInfo: No Change to Meds Disposition: 01 DISCHARGE HOME Condition: Mac Crespo MD Jul 05, 2016 05:00
[2016-07-05 05:01] LABS: PLATELET ESTIMATE SMEAR NORMAL (NORMAL); PLATELET MORPHOLOGY NORMAL (NORMAL); SICKLE CELLS 2+ (NORMAL)
[2016-07-05 05:04] LABS: POLYCHROMASIA 7.6 % (0.0-1.9)
[2016-07-05 05:05] LABS: HOWELL-JOLLY BODIES PRESENT (NONE SEEN)
[2016-07-05] MEDS ORDERED: diphenhydrAMINE HCL 50 MG/ML VIAL IV PUSH ONE (05:15)
[2016-08-26] MEDS ORDERED: METH5TAB PO (11:49)
== END 2016-07-05 06:01 | disposition home or self-care (01) ==
LOC: NEPE 02:56
DX: D57.00 Hb-SS disease with crisis, unspecified (principal); E87.6 Hypokalemia; M79.606 Pain in leg, unspecified; M25.579 Pain in unspecified ankle and joints of unspecified foot
CPT/HCPCS: 80048; 85007; 85027; 96374; 96375; 96376; 99284; J1170; J1200; J1642; J2405; J7030

== ENCOUNTER 2016-07-06 03:39 | Emergency (ER) | payer OTHER ==
[~2016-07-06] VITALS: Ht 152.4 cm; Wt 58.0 kg
[2016-07-06 03:41] VITALS: BP 113/73; PULSE 90; RESP 16; TEMP 98.6; O2SAT 90
--- NOTE | 2016-07-06 04:35 | PD ---
HPI Chief Complaint: Sickle Cell Time Seen by Provider: 04:30 Travel History International Travel<30 days: No Contact w/Intl Traveler<30days: No Traveled to known affect area: No History of Present Illness HPI 30-year-old female returns to the emergency department for complaint of pain associated with her sickle cell disease. Patient complains of back pain and leg pain. Patient's had symptoms over the past several days. Patient was artery seen yesterday 07/05/16 for same complaint and 07/02/16 for same complaint. In the interim patient has not been to see Dr. Perez her sisal picker as she reports she was not able to make an appointment. No fever no chills no nausea no vomiting no chest pain no shortness of breath no cough reported. No reported abdominal pain. Patient reportedly had a hemoglobin of 6.9 yesterday and was encouraged to follow-up with her sisal picker for outpatient blood transfusion. Patient reports he routinely does not get a transfusion lesser hemoglobin is 6.5. Patient is menstruating and states that this is typically what triggers her sickle cell pain related issues. PFSH Past Medical History Narrative Medical Sickle cell disease multiple blood transfusions recurrent chest pain cholelithiasis right chest Pjblgj-[id number] chronic back pain pneumonia 2 para 1 miscarriage 1 tubal ligation cholecystectomy no tobacco use no alcohol use nursing notes reviewed Hx Anticoagulant Therapy: No Anemia: Yes (WITH MULTIPLE BLOOD TRANSFUSIONS) Arthritis: No Asthma: No Autoimmune Disease: No Blood Disorders: Yes (SICKLE CELL) Anxiety: No Depression: No Cancer: No Cardiovascular Problems: Yes (CHEST PAIN) Chemotherapy: No Chest Pain: Yes Congestive Heart Failure: No COPD: No Cerebrovascular Accident: No Diabetes: No Diminished Hearing: No Endocrine: No Gastrointestinal Disorders: Yes (GALLSTONES) GERD: No Genitourinary: Yes (MULTIPLE UTIs) Headaches: Yes Hiatal Hernia: No Immune Disorder: No Implanted Vascular Access Dvce: Yes (RIGHT CHEST INFUSAPORT) Insomnia: Yes Kidney Stones: No Musculoskeletal: Yes (BACK PAIN) Neurologic: Yes Psychiatric: No Reproductive: No Respiratory: No Immunizations Current: Yes Migraines: No Pneumonia: Yes Radiation Therapy: No Renal Failure: No Seizures: No Sickle Cell Disease: Yes Thyroid Disease: No Ulcer: No PNEUMOCCOCAL Vaccine (Year): 2 ?: Not LMP: CURRENT : 2 Para: 1 Miscarriage: 1 : 0 Tubal Ligation: Yes (IN 2007) Past Surgical History Abdominal Surgery: Yes AICD: No Arteriovenous Shunt: No Body Medical Devices: INFUSAPORT Cardiac Surgery: No Section: Yes Cholecystectomy: Yes (1994) Ear Surgery: No Endocrine Surgery: No Eye Surgery: No Genitourinary Surgery: No Gynecologic Surgery: Yes Insulin Pump: No Joint Replacement: No Oral Surgery: Yes Pacemaker: No Thoracic Surgery: Yes (CHEST PORT ) Tonsillectomy: Yes Other Surgery: Yes (RIGHT CHEST INFUSAPORT ) Social History Alcohol Use: No Tobacco Use: No Substance Use: No Allergies-Medications (Allergen,Severity, Reaction): Coded Allergies: Morphine (Verified Allergy, Severe, RASH, 07/05/16) *MDRO Multi-Drug Resistant Organism (Verified Allergy, Unknown, 07/05/16) Reported Meds & Prescriptions Reported Meds & Active Scripts Active Reported Lortab (Hydrocodone-Acetaminophen) 10-325 Mg Tab 1 Tab PO Q6H PRN Review of Systems Except as stated in HPI: all other systems reviewed are Neg General / Constitutional: No: Fever, Chills Eyes: No: Visual changes HENT: No: Congestion Cardiovascular: No: Chest Pain or Discomfort Respiratory: No: Shortness of Breath Gastrointestinal: No: Vomiting, Abdominal Pain Genitourinary: Positive: Flank Pain Musculoskeletal: Positive: Myalgias, Arthralgias, Pain (back pain and lower extremity pain) Skin: No Rash Neurologic: No: Weakness, Dizziness, Syncope, Focal Abnormalities, Coordination Problem Psychiatric: No: Anxiety Endocrine: No: Heat Intolerance Hematologic/Lymphatic: No: Easy Bruising Physical Exam Narrative GENERAL: Well-developed well-nourished female in no acute distress no respiratory distress SKIN: Warm and dry. HEAD: Normocephalic. EYES: No scleral icterus. No injection or drainage. NECK: Supple, trachea midline. No JVD or lymphadenopathy. CARDIOVASCULAR: Increased Regular rate and rhythm without murmurs, gallops, or rubs. RESPIRATORY: Breath sounds equal bilaterally. No accessory muscle use. GASTROINTESTINAL: Abdomen soft, non-tender, nondistended. MUSCULOSKELETAL: No cyanosis, or edema. BACK: Nontender without obvious deformity. No CVA tenderness. Data Data Last Documented VS Vital Signs Date Time Temp Pulse Resp B/P Pulse Ox O2 Delivery O2 Flow Rate FiO2 07/06/16 08:00 82 16 115/73 95 Room Air 07/06/16 03:41 98.6 Orders Sodium Chlor 0.9% 1000 Ml Inj (Ns 1000 M (07/06/16 04:45) Hydromorphone Pf Inj (Dilaudid Pf Inj) (07/06/16 04:45) Diphenhydramine Inj (Benadryl Inj) (07/06/16 04:45) Ondansetron Inj (Zofran Inj) (07/06/16 04:45) Complete Blood Count With Diff (07/06/16 05:51) Comprehensive Metabolic Panel (07/06/16 05:51) Ecg Monitoring (07/06/16 05:51) Iv Access Insert/Monitor (07/06/16 05:51) Oximetry (07/06/16 05:51) Sodium Chloride 0.9% Flush (Ns Flush) (07/06/16 06:00) Hydromorphone Pf Inj (Dilaudid Pf Inj) (07/06/16 07:45) Diphenhydramine Inj (Benadryl Inj) (07/06/16 07:45) Sodium Chlorid 0.9% 500 Ml Inj (Ns 500 M (07/06/16 07:45) Heparin Central Flush (Heparin Central F (07/06/16 07:45) Labs Laboratory Tests Test 07/06/16 04:30 White Blood Count 9.0 TH/MM3 Red Blood Count 2.18 MIL/MM3 Hemoglobin 6.8 GM/DL Hematocrit 18.6 % Mean Corpuscular Volume 85.1 FL Mean Corpuscular Hemoglobin 31.1 PG Mean Corpuscular Hemoglobin 36.5 % Concent Red Cell Distribution Width 27.4 % Platelet Count 347 TH/MM3 Mean Platelet Volume 8.4 FL Neutrophils (%) (Auto) 46.5 % Lymphocytes (%) (Auto) 41.3 % Monocytes (%) (Auto) 8.7 % Eosinophils (%) (Auto) 2.6 % Basophils (%) (Auto) 0.9 % Neutrophils # (Auto) 4.2 TH/MM3 Lymphocytes # (Auto) 3.7 TH/MM3 Monocytes # (Auto) 0.8 TH/MM3 Eosinophils # (Auto) 0.2 TH/MM3 Basophils # (Auto) 0.1 TH/MM3 CBC Comment AUTO DIFF Differential Total Cells 100 Counted Neutrophils % (Manual) 32 % Band Neutrophils % 1 % Lymphocytes % 53 % Monocytes % 9 % Eosinophils % 4 % Basophils % 1 % Neutrophils # (Manual) 3.0 TH/MM3 Nucleated Red Blood Cells 24 /100 WBC Differential Comment FINAL DIFF MANUAL Platelet Estimate NORMAL Platelet Morphology Comment NORMAL Polychromasia 2.4 % Sickle Cells 3+ Target Cells 1+ Fields-[place] Bodies PRESENT Sodium Level 141 MEQ/L Potassium Level 3.5 MEQ/L Chloride Level 108 MEQ/L Carbon Dioxide Level 24.4 MEQ/L Anion Gap 9 MEQ/L Blood Urea Nitrogen 7 MG/DL Creatinine 0.56 MG/DL Estimat Glomerular Filtration 152 ML/MIN Rate Random Glucose 101 MG/DL Calcium Level 8.1 MG/DL Total Bilirubin 1.9 MG/DL Aspartate Amino Transf 63 U/L (AST/SGOT) Alanine Aminotransferase 19 U/L (ALT/SGPT) Alkaline Phosphatase 87 U/L Total Protein 7.2 GM/DL Albumin 3.3 GM/DL MDM Medical Decision Making Medical Screen Exam Complete: Yes Emergency Medical Condition: Yes Medical Record Reviewed: Yes Interpretation(s) Vital Signs Date Time Temp Pulse Resp B/P Pulse Ox O2 Delivery O2 Flow Rate FiO2 07/06/16 07:02 18 96 Room Air 07/06/16 06:00 84 16 109/70 94 07/06/16 03:41 98.6 90 16 113/73 90 CBC & BMP Diagram 07/06/16 04:30 Differential Diagnosis Exacerbation sickle cell disease, vaso-occlusive crisis, anemia, UTI Narrative Course Fufjhs-x-Ytxk access patient given IV fluid bolus Benadryl and Dilaudid At 6:55 AM hemoglobin is cold as a critical at 6.8 this is essentially unchanged from hemoglobin 07/05/16 of 6.9. Patient reports that she does not typically receive blood transfusion until her hemoglobin is 6.5. Patient still having pain therefore additional Dilaudid 1 mg Benadryl 25 mg and additional IV fluid 500 cc bolus will be administered patient also ordered to receive a heparin flush for her Kyephr-p-Lnir. Patient is otherwise stable for outpatient management and close follow-up with her sisal picker on Friday. Patient is aware of lab values and desirous of being discharged to home after additional pain medication. Diagnosis Primary Impression: Anemia, sickle cell with crisis Referrals: Juan Perez MD 2 days Patient Instructions: General Instructions, Narcotic given in the ED, Sickle Cell Crisis (ED) Additional Instructions: Follow-up with your sisal picker on Friday Return to the emergency department for any concerns or change in condition Increase fluid hydration Continue taking your pain medication as prescribed by your sisal picker as needed Take acetaminophen/Tylenol as needed for fever 100.4F or greater Med/Other Pt SpecificInfo: No Change to Meds Disposition: 01 DISCHARGE HOME Condition: Stable Halina Jiang MD Jul 06, 2016 04:35
[2016-07-06] MEDS ORDERED: diphenhydrAMINE HCL 50 MG/ML VIAL IV PUSH ONE ×2 (04:45→07:45)
[2016-07-06] MEDS ORDERED: HYDROmorphone HCL PF 1 MG/ML VIAL IV PUSH ONE ×2 (04:45→07:45)
[2016-07-06] MEDS ORDERED: ONDANSETRON HCL 4 MG/2 ML VIAL IV PUSH ONE (04:45)
[2016-07-06] MEDS ORDERED: SODIUM CHLOR 0.9% 1000 ML INJ 1,000 ML IV ONE (04:45)
[2016-07-06 05:53] LABS: MEAN CORPUSCULAR HGB CONC 36.5 % (32.0-36.0)
[2016-07-06 06:00] VITALS: BP 109/70; PULSE 84; RESP 16; O2SAT 94
[2016-07-06] MEDS ORDERED: SODIUM CHLORIDE 0.9% FLUSH 5 ML FLUSH IVF PRN (06:00)
[2016-07-06 06:37] LABS: AUTOMATED NEUTROPHIL # 4.2 TH/MM3 (1.8-7.7); BASOPHIL # 0.1 TH/MM3 (0-0.2); BASOPHIL % 0.9 % (0.0-2.0); EOSINOPHIL # 0.2 TH/MM3 (0-0.4); EOSINOPHIL % 2.6 % (0.0-4.0); LYMPH % 41.3 % (9.0-44.0); LYMPHOCYTE # 3.7 TH/MM3 (1.0-4.8); MEAN CELL VOLUME 85.1 FL (80.0-100.0); MEAN CORPUSCULAR HEMOGLOBIN 31.1 PG (27.0-34.0); MONO % 8.7 % (0.0-8.0); NEUT % 46.5 % (16.0-70.0); PLATELET COUNT 347 TH/MM3 (150-450); RED BLOOD COUNT 2.18 MIL/MM3 (4.00-5.30); RED CELL DISTRIBUTION WIDTH 27.4 % (11.6-17.2)
[2016-07-06 06:41] LABS: HEMO FLAGS AUTO DIFF
[2016-07-06 06:48] LABS: HEMATOCRIT 18.6 % (35.0-46.0)
[2016-07-06 07:00] LABS: ALKALINE PHOSPHATASE 87 U/L (45-117); TOTAL BILIRUBIN ADULT 1.9 MG/DL (0.2-1.0)
[2016-07-06 07:02] VITALS: RESP 18; O2SAT 96
[2016-07-06 07:07] LABS: ALT (GPT) 19 U/L (10-53); ANION GAP 9 MEQ/L (5-15); AST (GOT) 63 U/L (15-37); BICARBONATE 24.4 MEQ/L (21.0-32.0); BLOOD UREA NITROGEN 7 MG/DL (7-18); CHLORIDE 108 MEQ/L (98-107); GLOMERULAR FILTRATION RATE 152 ML/MIN (>89); SODIUM (NA) 141 MEQ/L (136-145)
[2016-07-06 07:08] LABS: POTASSIUM 3.5 MEQ/L (3.5-5.1)
[2016-07-06] MEDS ORDERED: SODIUM CHLORID 0.9% 500 ML INJ 500 ML IV ONE (07:45)
[2016-07-06 08:00] VITALS: BP 115/73; PULSE 82; RESP 16; O2SAT 95
[2016-07-06 08:22] LABS: BANDS 1 % (0-6); BASOPHILS 1 % (0-2); CORRECTED NUCLEATED RBC 24 /100 WBC (0-0); EOSINOPHILS 4 % (0-4); POLYS (SEG NEUTROPHILS) 32 % (16-70); WBC DIFF SAMPLE 100
[2016-07-06 08:23] LABS: HOWELL-JOLLY BODIES PRESENT (NONE SEEN); PLATELET ESTIMATE SMEAR NORMAL (NORMAL); PLATELET MORPHOLOGY NORMAL (NORMAL); POLYCHROMASIA 2.4 % (0.0-1.9); SCAN/DIFF FINAL DIFF MANUAL; SICKLE CELLS 3+ (NORMAL); TARGET CELLS 1+ (NORMAL)
[2016-08-26] MEDS ORDERED: METH5TAB PO (11:49)
== END 2016-07-06 08:45 | disposition home or self-care (01) ==
LOC: NEPC 03:39
DX: D57.819 Other sickle-cell disorders with crisis, unspecified (principal); D64.9 Anemia, unspecified
CPT/HCPCS: 80053; 85007; 85027; 96360; 96361; 96374; 96375; 96376; 99284; J1170; J1200; J1642; J2405; J7030; J7040

== ENCOUNTER 2016-07-10 01:59 | Inpatient (IN) | payer OTHER ==
[~2016-07-10] VITALS: Ht 152.4 cm; Wt 58.0 kg
[2016-07-10] VITALS (14 sets, daily range): BP systolic 98–131; BP diastolic 60–82; PULSE 70–101; RESP 16–20; TEMP 97.4–99.2; O2SAT 91–99
[2016-07-10] MEDS ORDERED: HYDROmorphone HCL PF 1 MG/ML VIAL IVS ONE (03:15)
[2016-07-10] MEDS ORDERED: diphenhydrAMINE HCL 50 MG/ML VIAL IV ONE (03:15)
[2016-07-10] MEDS ORDERED: SODIUM CHLOR 0.9% 1000 ML INJ 1,000 ML IV ONE (03:15)
[2016-07-10] MEDS ORDERED: SODIUM CHLORIDE 0.9% FLUSH 5 ML FLUSH IVF PRN (03:15)
--- NOTE | 2016-07-10 03:15 | PD ---
HPI Chief Complaint: Sickle Cell Time Seen by Provider: 03:05 Travel History International Travel<30 days: No Contact w/Intl Traveler<30days: No Traveled to known affect area: No History of Present Illness HPI 30-year-old female with history of sickle cell disease, well-known to the emergency department and myself for frequent vaso-occlusive crises, here for evaluation of sickle cell pain. The patient is currently on her menstrual period and states that this usually triggers her sickle cell crisis. She is having diffuse joint pains and upper back pain. No dyspnea. No cough. No fever. PFSH Past Medical History Hx Anticoagulant Therapy: No Anemia: Yes (WITH MULTIPLE BLOOD TRANSFUSIONS) Arthritis: No Asthma: No Autoimmune Disease: No Blood Disorders: Yes (SICKLE CELL) Anxiety: No Depression: No Cancer: No Cardiovascular Problems: Yes (CHEST PAIN) Chemotherapy: No Chest Pain: Yes Congestive Heart Failure: No COPD: No Cerebrovascular Accident: No Diabetes: No Diminished Hearing: No Endocrine: No Gastrointestinal Disorders: Yes (GALLSTONES) GERD: No Genitourinary: Yes (MULTIPLE UTIs) Headaches: Yes Hiatal Hernia: No Immune Disorder: No Implanted Vascular Access Dvce: Yes (RIGHT CHEST INFUSAPORT) Insomnia: Yes Kidney Stones: No Musculoskeletal: Yes (BACK PAIN) Neurologic: Yes Psychiatric: No Reproductive: No Respiratory: No Immunizations Current: Yes Migraines: No Pneumonia: Yes Radiation Therapy: No Renal Failure: No Seizures: No Sickle Cell Disease: Yes Thyroid Disease: No Ulcer: No Tetanus Vaccination: < 5 Years Influenza Vaccination: Yes PNEUMOCCOCAL Vaccine (Year): 2 ?: Not : 2 Para: 1 Miscarriage: 1 : 0 Tubal Ligation: Yes (IN 2007) Past Surgical History Abdominal Surgery: Yes AICD: No Arteriovenous Shunt: No Body Medical Devices: INFUSAPORT Cardiac Surgery: No Section: Yes Cholecystectomy: Yes (1994) Ear Surgery: No Endocrine Surgery: No Eye Surgery: No Genitourinary Surgery: No Gynecologic Surgery: Yes Insulin Pump: No Joint Replacement: No Oral Surgery: Yes Pacemaker: No Thoracic Surgery: Yes (CHEST PORT ) Tonsillectomy: Yes Other Surgery: Yes (RIGHT CHEST INFUSAPORT ) Social History Alcohol Use: No Tobacco Use: No Substance Use: No Allergies-Medications (Allergen,Severity, Reaction): Coded Allergies: Morphine (Verified Allergy, Severe, RASH, 07/10/16) *MDRO Multi-Drug Resistant Organism (Verified Allergy, Unknown, 07/10/16) Reported Meds & Prescriptions Reported Meds & Active Scripts Active Reported Lortab (Hydrocodone-Acetaminophen) 10-325 Mg Tab 1 Tab PO Q6H PRN Review of Systems Except as stated in HPI: all other systems reviewed are Neg Physical Exam Narrative GENERAL: Well-developed, well-nourished, comfortable, no acute distress. SKIN: Warm and dry. No rash. HEAD: Atraumatic. Normocephalic. EYES: Pupils equal and round. No scleral icterus. No injection or drainage. ENT: Mucous membranes pink and moist. NECK: Trachea midline. No JVD. No nuchal rigidity. CARDIOVASCULAR: Regular rate and rhythm. No murmur appreciated. RESPIRATORY: No accessory muscle use. Clear to auscultation. Breath sounds equal bilaterally. GASTROINTESTINAL: Abdomen soft, non-tender, nondistended. MUSCULOSKELETAL: No obvious deformities. No clubbing. No cyanosis. No edema. No dactylitis. NEUROLOGICAL: Awake and alert. No obvious cranial nerve deficits. Motor grossly within normal limits. Normal speech. PSYCHIATRIC: Appropriate mood and affect; insight and judgment normal. Data Data Last Documented VS Vital Signs Date Time Temp Pulse Resp B/P Pulse Ox O2 Delivery O2 Flow Rate FiO2 07/10/16 03:42 18 98 Room Air 07/10/16 02:03 99.2 101 118/76 Orders Basic Metabolic Panel (Bmp) (07/10/16 03:05) Complete Blood Count With Diff (07/10/16 03:05) Retic Count (07/10/16 03:05) Chest, Single Ap (07/10/16 03:05) Ecg Monitoring (07/10/16 03:05) Iv Access Insert/Monitor (07/10/16 03:05) Oximetry (07/10/16 03:05) Sodium Chloride 0.9% Flush (Ns Flush) (07/10/16 03:15) Hydromorphone Pf Inj (Dilaudid Pf Inj) (07/10/16 03:15) Diphenhydramine Inj (Benadryl Inj) (07/10/16 03:15) Beta Hcg (Quant/Titer) (07/10/16 03:05) Sodium Chlor 0.9% 1000 Ml Inj (Ns 1000 M (07/10/16 03:15) Potassium Chloride (Kcl) (07/10/16 04:45) Type And Screen (07/10/16 05:42) Red Blood Cells (Rbc) (07/10/16 05:42) Blood Product Administration .UPON TRANSFUSION (07/10/16 05:42) Sodium Chlor 0.9% 250 Ml Inj (Ns 250 Ml (07/10/16 05:45) Hydromorphone Pf Inj (Dilaudid Pf Inj) (07/10/16 05:45) Diphenhydramine Inj (Benadryl Inj) (07/10/16 05:45) Labs Laboratory Tests Test 07/10/16 03:40 White Blood Count 8.9 TH/MM3 Red Blood Count 2.15 MIL/MM3 Hemoglobin 6.5 GM/DL Hematocrit 18.0 % Mean Corpuscular Volume 84.0 FL Mean Corpuscular Hemoglobin 30.1 PG Mean Corpuscular Hemoglobin 35.9 % Concent Red Cell Distribution Width 24.6 % Platelet Count 322 TH/MM3 Mean Platelet Volume 8.3 FL Neutrophils (%) (Auto) 47.4 % Lymphocytes (%) (Auto) 35.0 % Monocytes (%) (Auto) 14.1 % Eosinophils (%) (Auto) 3.0 % Basophils (%) (Auto) 0.5 % Neutrophils # (Auto) 4.0 TH/MM3 Lymphocytes # (Auto) 2.9 TH/MM3 Monocytes # (Auto) 1.2 TH/MM3 Eosinophils # (Auto) 0.3 TH/MM3 Basophils # (Auto) 0.0 TH/MM3 CBC Comment AUTO DIFF Differential Comment AUTO DIFF CONFIRMED Platelet Estimate NORMAL Platelet Morphology Comment NORMAL Sickle Cells 2+ Fields-[place] Bodies PRESENT Reticulocyte Count 9.4 % Absolute Reticulocyte Count 202.7 MIL/L Hematology Comments Sodium Level 142 MEQ/L Potassium Level 3.0 MEQ/L Chloride Level 107 MEQ/L Carbon Dioxide Level 24.6 MEQ/L Anion Gap 10 MEQ/L Blood Urea Nitrogen 7 MG/DL Creatinine 0.50 MG/DL Estimat Glomerular Filtration 173 ML/MIN Rate Random Glucose 105 MG/DL Calcium Level 7.7 MG/DL Human Chorionic Gonadotropin, LESS THAN 1 Quant MIU/ML MDM Medical Decision Making Medical Screen Exam Complete: Yes Emergency Medical Condition: Yes Differential Diagnosis Vaso-occlusive crisis, critical anemia, acute chest syndrome Narrative Course Vital signs show heart rate 101, blood pressure 118/76, pulse ox 98% on room air , oral temp of 99.2F. CBC is remarkable for hemoglobin 6.5, hematocrit 18. Reticulocyte count is 9.4% BMP is remarkable for potassium 3.0 which was replaced orally. Beta hCG is negative. Chest x-ray shows cardiomegaly, right Ifuxim-f-Ipuf unchanged, no new consolidation or effusion, mild interstitial prominence which is stable. Patient's baseline hemoglobin is between 7 and 8. She usually receives a blood transfusion when her hemoglobin is 6.5 and below. She was seen in the emergency department 5 days ago and at time her hemoglobin was 6.8. Patient is having ongoing pain despite receiving 1 mg of IV Dilaudid. She was made aware of all findings and agrees to admission for blood transfusion. Her emission technician is Dr. Perez. Case discussed with hospitalist Dr. Zepeda who will admit the patient to her service. Diagnosis Primary Impression: Anemia, sickle cell with crisis Admitting Information Admitting Physician Requests: Observation Mitchell Bonds MD Jul 10, 2016 03:14
[2016-07-10 04:13] LABS: BETA HCG QUANT LESS THAN 1 MIU/ML (0-5)
[2016-07-10 04:16] LABS: ANION GAP 10 MEQ/L (5-15); BICARBONATE 24.6 MEQ/L (21.0-32.0); CHLORIDE 107 MEQ/L (98-107); GLOMERULAR FILTRATION RATE 173 ML/MIN (>89); SODIUM (NA) 142 MEQ/L (136-145)
[2016-07-10 04:21] LABS: BLOOD UREA NITROGEN 7 MG/DL (7-18)
--- NOTE | 2016-07-10 04:27 | RADRPT ---
EXAM DATE/TIME: 07/10/2016 03:44 [facility] COMPARISON: CHEST SINGLE AP, June 01, 2016, 7:49. INDICATIONS : Short of breath. MEDICAL HISTORY : None. SURGICAL HISTORY : None. ENCOUNTER: Initial ACUITY: 1 day PAIN SCORE: 6/10 LOCATION: Bilateral chest FINDINGS: Right Dafrpy-j-Mbmk in superior vena cava. No focal consolidation or effusion. Cardiomegaly. Tortuous aorta. CONCLUSION: 1. Cardiomegaly. Right Hetqrq-i-Aaxl unchanged. No new consolidation or effusion. Mild interstitial p rominence, stable. Patrice Cheema MD on July 10, 2016 at 4:24 Board Certified Radiologist. This report was verified electronically.
[2016-07-10 04:37] LABS: BASOPHIL % 0.5 % (0.0-2.0); EOSINOPHIL # 0.3 TH/MM3 (0-0.4); HEMO FLAGS AUTO DIFF; LYMPHOCYTE # 2.9 TH/MM3 (1.0-4.8); MEAN CORPUSCULAR HEMOGLOBIN 30.1 PG (27.0-34.0); MEAN CORPUSCULAR HGB CONC 35.9 % (32.0-36.0); MONO % 14.1 % (0.0-8.0); NEUT % 47.4 % (16.0-70.0); RED BLOOD COUNT 2.15 MIL/MM3 (4.00-5.30); RED CELL DISTRIBUTION WIDTH 24.6 % (11.6-17.2); RETIC % 9.4 % (0.4-3.0)
[2016-07-10 04:38] LABS: PLATELET COUNT 322 TH/MM3 (150-450); REVIEW FLAG AUTO DIFF; WHITE BLOOD COUNT 8.9 TH/MM3 (4.0-11.0)
[2016-07-10] MEDS ORDERED: POTASSIUM CHLORIDE 20 MEQ CONTROLLED RELEASE TAB PO ONE (04:45)
[2016-07-10 05:03] LABS: PLATELET ESTIMATE SMEAR NORMAL (NORMAL); PLATELET MORPHOLOGY NORMAL (NORMAL); SCAN/DIFF AUTO DIFF CONFIRMED
[2016-07-10 05:04] LABS: HOWELL-JOLLY BODIES PRESENT (NONE SEEN); SICKLE CELLS 2+ (NORMAL)
[2016-07-10] MEDS ORDERED: HYDROmorphone HCL PF 1 MG/ML VIAL IV PUSH ONE (05:45)
[2016-07-10] MEDS ORDERED: diphenhydrAMINE HCL 50 MG/ML VIAL IV PUSH ONE (05:45)
[2016-07-10] MEDS ORDERED: SODIUM CHLOR 0.9% 250 ML INJ 250 ML IV ONE (05:45)
[2016-07-10] MEDS ORDERED: SODIUM CHLORIDE 0.9% FLUSH 5 ML FLUSH FLUSH PRN (06:15)
[2016-07-10] MEDS ORDERED: NALOXONE HCL 0.4 MG/ML AMP IV PRN (06:15)
[2016-07-10] MEDS ORDERED: HYDROmorphone HCL PF 1 MG/ML VIAL IV PUSH PRN (06:30)
[2016-07-10] MEDS: SODIUM CHLORIDE 0.9% FLUSH 5 ML FLUSH FLUSH SCH ×2 (08:09→21:00)
--- NOTE | 2016-07-10 10:21 | HHI.HP ---
[facility] Service [facility] Primary Care Physician No Primary Care Physician Admission Diagnosis sickle cell crisis with anemia Diagnoses: (1) Sickle cell pain crisis (2) Anemia, sickle cell with crisis (3) Narcotic seeking behavior Chief Complaint: pain all over Travel History International Travel<30 Days: No Contact w/Intl Traveler <30 Da: No Traveled to Known Affected Are: No History of Present Illness 30-year-old female with history of sickle cell disease presents with a 2 day history of diffuse pain consistent with her sickle cell flareups. She denies any chest pain or shortness of breath. Patient has made multiple numerous ED visits for possible weeks secondary to what she described as crisis. Patient has an appointment with Hematology Dr. Perez next week. Patient also states she' s been having her period and has felt weak. 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 Social History Denies any tobacco, alcohol, or illicit drug use. Physical Exam Vital Signs Vital Signs Date Time Temp Pulse Resp B/P Pulse Ox O2 Delivery O2 Flow Rate FiO2 07/10/16 08:55 99.2 88 20 117/76 92 07/10/16 08:10 98.6 81 16 111/71 94 Room Air 07/10/16 07:55 98.2 89 16 108/72 97 Room Air 07/10/16 03:42 18 98 Room Air 07/10/16 02:07 16 07/10/16 02:03 99.2 101 16 118/76 91 Physical Exam GENERAL: This is a well-nourished, well-developed patient, in no apparent distress. SKIN: No rashes, ecchymoses or lesions. Cool and dry. HEAD: Atraumatic. Normocephalic. No temporal or scalp tenderness. EYES: Pupils equal round and reactive. Extraocular motions intact. No scleral icterus. No injection or drainage. ENT: Nose without bleeding, purulent drainage or septal hematoma. Throat without erythema, tonsillar hypertrophy or exudate. Uvula midline. Airway patent. NECK: Trachea midline. No JVD or lymphadenopathy. Supple, nontender, no meningeal signs. CARDIOVASCULAR: Regular rate and rhythm without murmurs, gallops, or rubs. RESPIRATORY: Clear to auscultation. Breath sounds equal bilaterally. No wheezes , rales, or rhonchi. GASTROINTESTINAL: Abdomen soft, non-tender, nondistended. No hepato-splenomegaly , or palpable masses. No guarding. MUSCULOSKELETAL: Extremities without clubbing, cyanosis, or edema. No joint tenderness, effusion, or edema noted. No calf tenderness. Negative Homans sign bilaterally. NEUROLOGICAL: Awake and alert. Cranial nerves II through XII intact. Motor and sensory grossly within normal limits. Five out of 5 muscle strength in all muscle groups. Normal speech. Laboratory Laboratory Tests Test 07/10/16 07/10/16 03:40 06:26 White Blood Count 8.9 Red Blood Count 2.15 Hemoglobin 6.5 Hematocrit 18.0 Mean Corpuscular Volume 84.0 Mean Corpuscular Hemoglobin 30.1 Mean Corpuscular Hemoglobin 35.9 Concent Red Cell Distribution Width 24.6 Platelet Count 322 Mean Platelet Volume 8.3 Neutrophils (%) (Auto) 47.4 Lymphocytes (%) (Auto) 35.0 Monocytes (%) (Auto) 14.1 Eosinophils (%) (Auto) 3.0 Basophils (%) (Auto) 0.5 Neutrophils # (Auto) 4.0 Lymphocytes # (Auto) 2.9 Monocytes # (Auto) 1.2 Eosinophils # (Auto) 0.3 Basophils # (Auto) 0.0 CBC Comment AUTO DIFF Differential Comment AUTO DIFF CONFIRMED Platelet Estimate NORMAL Platelet Morphology Comment NORMAL Sickle Cells 2+ Fields-Crenshaw Bodies PRESENT Reticulocyte Count 9.4 Absolute Reticulocyte Count 202.7 Hematology Comments Sodium Level 142 Potassium Level 3.0 Chloride Level 107 Carbon Dioxide Level 24.6 Anion Gap 10 Blood Urea Nitrogen 7 Creatinine 0.50 Estimat Glomerular Filtration 173 Rate Random Glucose 105 Calcium Level 7.7 Human Chorionic Gonadotropin, LESS THAN 1 Quant Blood Type B POSITIVE Antibody Screen NEGATIVE Crossmatch Leukocyte-Reduced Red Blood Cells Blood Bank Comment Result Diagram: 07/10/1633907/10/16339 Assessment and Plan Problem List: (1) Sickle cell pain crisis ICD Code: D57.00 Status: Acute (2) Anemia, sickle cell with crisis ICD Code: D57.00 Status: Acute Assessment and Plan 30-year-old female with 1-Sickle cell pain crisis: Supportive care with IV fluid hydration, pain management, multivitamin 1 tablet by mouth daily, check LDH and reticulocyte counts. Patient will follow with hematology next week 2-Anemia, sickle cell disease: Transfuse 2 units packed red blood cell and monitor H&H 3-DVT prophylaxis: Lovenox in a.m. Code Status Full code Discussed Condition With Patient Zeke Gandhi MD Jul 10, 2016 10:21
[2016-07-10] MEDS ORDERED: diphenhydrAMINE HCL 25 MG CAP PO PRN (11:00)
[2016-07-10] MEDS ORDERED: ACETAMINOPHEN 325 MG TAB PO PRN ×2 (11:00→11:15)
[2016-07-10] MEDS ORDERED: DOCUSATE SODIUM 50 MG/SENNA 8.6 MG TAB PO PRN (11:15)
[2016-07-10] MEDS ORDERED: ONDANSETRON HCL 4 MG/2 ML VIAL IV PRN (11:15)
[2016-07-10] MEDS ORDERED: MULTIVITAMIN TAB PO SCH (11:15)
[2016-07-10] MEDS ORDERED: ENOXAPARIN SODIUM 40 MG/0.4 ML SYRINGE SQ SCH (11:15)
[2016-07-10] MEDS ORDERED: TEMAZEPAM 15 MG CAP PO PRN (11:15)
[2016-07-10] MEDS: HYDROmorphone HCL PF 1 MG/ML VIAL IV PUSH PRN ×3 (12:03→23:39)
[2016-07-10] MEDS: diphenhydrAMINE HCL 50 MG/ML VIAL IV PUSH PRN ×3 (12:04→23:39)
[2016-07-10] MEDS: SODIUM CHLOR 0.9% 1000 ML INJ 1,000 ML IV SCH ×2 (12:04→23:25)
[2016-07-11] MEDS: diphenhydrAMINE HCL 50 MG/ML VIAL IV PUSH PRN (05:15)
[2016-07-11] MEDS: HYDROmorphone HCL PF 1 MG/ML VIAL IV PUSH PRN (05:16)
[2016-07-11 06:05] VITALS: BP 126/69; PULSE 88; RESP 18; TEMP 98.9; O2SAT 98
[2016-07-11] MEDS ORDERED: ACETAMINOPHEN/HYDROcodone 325 MG/7.5 MG TAB PO PRN (07:30)
[2016-07-11 07:38] LABS: AUTOMATED NEUTROPHIL # 3.4 TH/MM3 (1.8-7.7); BASOPHIL % 0.6 % (0.0-2.0); EOSINOPHIL # 0.5 TH/MM3 (0-0.4); EOSINOPHIL % 5.9 % (0.0-4.0); HEMATOCRIT 26.9 % (35.0-46.0); LYMPH % 44.6 % (9.0-44.0); LYMPHOCYTE # 3.9 TH/MM3 (1.0-4.8); MEAN CELL VOLUME 84.6 FL (80.0-100.0); MEAN CORPUSCULAR HEMOGLOBIN 30.5 PG (27.0-34.0); MONO % 9.3 % (0.0-8.0); NEUT % 39.6 % (16.0-70.0); PLATELET COUNT 369 TH/MM3 (150-450); RED BLOOD COUNT 3.18 MIL/MM3 (4.00-5.30); RED CELL DISTRIBUTION WIDTH 20.7 % (11.6-17.2); WHITE BLOOD COUNT 8.7 TH/MM3 (4.0-11.0)
[2016-07-11 07:49] LABS: BICARBONATE 24.4 MEQ/L (21.0-32.0); HEMO FLAGS AUTO DIFF; POTASSIUM 3.7 MEQ/L (3.5-5.1)
--- NOTE | 2016-07-11 08:05 | HHI.PR ---
Subjective Remarks Follow-up sickle cell crisis/anemia of sickle cell disease 07/11/16-patient seen and examined, H&H stable. This morning patient refused vital check, and when confronted she states she was going to walk AMA which he attempted , then returned into her room Objective Vitals Vital Signs Date Time Temp Pulse Resp B/P Pulse Ox O2 Delivery O2 Flow Rate FiO2 07/11/16 07:53 07/11/16 06:05 98.9 88 18 126/69 98 07/10/16 23:55 98.1 77 18 106/66 95 07/10/16 16:15 98.3 70 20 110/73 94 07/10/16 16:00 97.4 73 20 109/70 97 07/10/16 13:25 97.7 85 19 98/63 99 07/10/16 13:10 97.6 84 19 102/60 99 07/10/16 12:55 97.6 80 19 107/65 97 07/10/16 12:25 97.6 82 19 105/70 98 07/10/16 12:25 97.6 75 20 130/80 97 07/10/16 11:33 97.4 83 20 131/82 97 07/10/16 10:00 97.4 82 18 131/82 98 07/10/16 08:55 99.2 88 20 117/76 92 07/10/16 08:10 98.6 81 16 111/71 94 Room Air I/O 07/10/16 07/10/16 07/10/16 07/11/16 07/11/16 07/11/16 06:59 14:59 22:59 06:59 14:59 22:59 Intake Total 1500 ml Balance 1500 ml Intake IV Total 500 ml Packed Cells 1000 ml # Voids 3 Result Diagram: 07/11/16 0330 07/11/16 0330 Imaging Last Impressions Chest X-Ray 07/10/16 0305 Signed Impressions: Service Date/Time: Sunday, July 10, 2016 03:44 - CONCLUSION: 1. Cardiomegaly. Right [id number] unchanged. No new consolidation or effusion. Mild interstitial prominence, stable. Patrice Cheema MD Objective Remarks GENERAL: NAD SKIN: Warm and dry. HEAD: Normocephalic. EYES: No scleral icterus. No injection or drainage. NECK: Supple, trachea midline. No JVD or lymphadenopathy. Infusion port in place CARDIOVASCULAR: Regular rate and rhythm without murmurs, gallops, or rubs. RESPIRATORY: Breath sounds equal bilaterally. No accessory muscle use. GASTROINTESTINAL: Abdomen soft, non-tender, nondistended. MUSCULOSKELETAL: No cyanosis, or edema. BACK: Nontender without obvious deformity. No CVA tenderness. A/P Problem List: (1) Sickle cell pain crisis ICD Code: D57.00 Status: Acute (2) Anemia, sickle cell with crisis ICD Code: D57.00 Status: Acute Assessment and Plan 30-year-old female with 1-Sickle cell pain crisis: Improved with Supportive care with IV fluid hydration , pain management, multivitamin 1 tablet by mouth daily. LDH and reticulocyte counts reviewed. Patient will follow with hematology next week 2-Anemia, sickle cell disease: Transfused 2 units packed red blood cell and H& H stable this morning 3-DVT prophylaxis: Lovenox Discharge Planning Discharge patient to home Condition on discharge: Improved Regular Diet as tolerated Ad Chichi activity Rx written: see EMR Follow-up with primary care physician in 1 week Zeke Gandhi MD Jul 11, 2016 08:05
[2016-07-11] MEDS ORDERED: THERTAB15 PO (08:08)
[2016-07-11] MEDS ORDERED: HYDR-3580 PO (08:08)
[2016-07-11] MEDS ORDERED: ENOXAPARIN SODIUM 40 MG/0.4 ML SYRINGE SQ SCH (09:00)
[2016-07-11 09:01] LABS: BANDS 1 % (0-6); BASOPHILS 1 % (0-2); CORRECTED NUCLEATED RBC 7 /100 WBC (0-0); EOSINOPHILS 4 % (0-4); NEUTROPHIL # MANUAL DIFF 3.2 TH/MM3 (1.8-7.7); POLYS (SEG NEUTROPHILS) 36 % (16-70); SICKLE CELLS 3+ (NORMAL); WBC DIFF SAMPLE 100
[2016-07-11 09:03] LABS: HOWELL-JOLLY BODIES PRESENT (NONE SEEN); PLATELET ESTIMATE SMEAR NORMAL (NORMAL); POLYCHROMASIA 2.4 % (0.0-1.9)
[2016-07-11 09:04] LABS: PLATELET MORPHOLOGY NORMAL (NORMAL); SCAN/DIFF FINAL DIFF MANUAL
[2016-08-26] MEDS ORDERED: METH5TAB PO (11:49)
== END 2016-07-11 09:39 | disposition home or self-care (01) | DRG 812 ==
LOC: NED 01:59 → NEDA 06:12 → OBSVTOIN 06:18 → NEPFCDU 08:24
PROVIDERS: ADMIT Hospitalist; ATTEND Hospitalist
DX: D57.00 Hb-SS disease with crisis, unspecified (principal); Z87.440 Personal history of urinary (tract) infections
CPT/HCPCS: 36430; 71010; 80048; 83615; 84702; 85007; 85025; 85027; 85044; 86850; 86900; 86901; 86920; 96374; 96375; 96376; J1170; J1200; J7030; J7050; P9016

== ENCOUNTER 2016-07-22 03:47 | Emergency (ER) | payer OTHER ==
[~2016-07-22] VITALS: Ht 152.4 cm; Wt 60.0 kg
[~2016-07-22 03:47] MED LIST changes: -HYDR-3535 PO; +HYDR-3580 PO; +THERTAB15 PO
[2016-07-22 03:53] VITALS: BP 111/55; PULSE 97; RESP 16; TEMP 99.5; O2SAT 95
[2016-07-22 04:55] LABS: AUTOMATED NEUTROPHIL # 4.5 TH/MM3 (1.8-7.7); BASOPHIL # 0.1 TH/MM3 (0-0.2); BASOPHIL % 1.4 % (0.0-2.0); EOSINOPHIL # 0.3 TH/MM3 (0-0.4); EOSINOPHIL % 2.5 % (0.0-4.0); HEMATOCRIT 21.7 % (35.0-46.0); LYMPH % 44.4 % (9.0-44.0); LYMPHOCYTE # 4.7 TH/MM3 (1.0-4.8); MEAN CELL VOLUME 85.2 FL (80.0-100.0); MEAN CORPUSCULAR HEMOGLOBIN 30.4 PG (27.0-34.0); MEAN CORPUSCULAR HGB CONC 35.6 % (32.0-36.0); MONO % 8.8 % (0.0-8.0); NEUT % 42.9 % (16.0-70.0); PLATELET COUNT 484 TH/MM3 (150-450); RED BLOOD COUNT 2.55 MIL/MM3 (4.00-5.30); RED CELL DISTRIBUTION WIDTH 18.9 % (11.6-17.2); RETIC % 7.1 % (0.4-3.0); WHITE BLOOD COUNT 10.5 TH/MM3 (4.0-11.0)
[2016-07-22 05:03] LABS: HEMO FLAGS AUTO DIFF
[2016-07-22 05:04] LABS: REVIEW FLAG FINAL
[2016-07-22 05:07] LABS: ALKALINE PHOSPHATASE 86 U/L (45-117); TOTAL BILIRUBIN ADULT 2.2 MG/DL (0.2-1.0)
[2016-07-22 05:12] LABS: ALT (GPT) 18 U/L (10-53); ANION GAP 9 MEQ/L (5-15); AST (GOT) 50 U/L (15-37); BICARBONATE 25.8 MEQ/L (21.0-32.0); BLOOD UREA NITROGEN 5 MG/DL (7-18); CHLORIDE 107 MEQ/L (98-107); GLOMERULAR FILTRATION RATE 177 ML/MIN (>89); POTASSIUM 3.3 MEQ/L (3.5-5.1); SODIUM (NA) 142 MEQ/L (136-145)
[2016-07-22] MEDS ORDERED: diphenhydrAMINE HCL 50 MG/ML VIAL IV PUSH STA ×2 (05:17→06:02)
[2016-07-22] MEDS ORDERED: SODIUM CHLORIDE 0.9% FLUSH 5 ML FLUSH IVF PRN (05:30)
[2016-07-22] MEDS ORDERED: SODIUM CHLOR 0.9% 1000 ML INJ 1,000 ML IV ONE (05:30)
[2016-07-22] MEDS ORDERED: HYDROmorphone HCL PF 1 MG/ML VIAL IVS ONE ×2 (05:30→06:15)
[2016-07-22 05:37] LABS: BANDS 1 % (0-6); BASOPHILS 1 % (0-2); CORRECTED NUCLEATED RBC 2 /100 WBC (0-0); EOSINOPHILS 2 % (0-4); NEUTROPHIL # MANUAL DIFF 4.2 TH/MM3 (1.8-7.7); PLATELET ESTIMATE SMEAR HIGH (NORMAL); PLATELET MORPHOLOGY NORMAL (NORMAL); POLYS (SEG NEUTROPHILS) 39 % (16-70); SCAN/DIFF FINAL DIFF MANUAL; SICKLE CELLS 1+ (NORMAL); WBC DIFF SAMPLE 100
[2016-07-22 05:38] LABS: DOHLE BODIES PRESENT (NONE SEEN)
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
[2016-07-22 06:35] VITALS: BP 108/61
[2016-08-26] MEDS ORDERED: METH5TAB PO (11:49)
== END 2016-07-22 06:35 | disposition home or self-care (01) ==
LOC: NEPE 03:47
DX: D57.00 Hb-SS disease with crisis, unspecified (principal)
CPT/HCPCS: 80053; 85007; 85027; 85044; 96361; 96374; 96375; 96376; 99284; J1170; J1200; J1642; J7030

== ENCOUNTER 2016-07-26 01:23 | Emergency (ER) | payer OTHER ==
[~2016-07-26] VITALS: Ht 152.4 cm; Wt 60.0 kg
[2016-07-26 01:25] VITALS: BP 123/57; PULSE 75; RESP 14; TEMP 98.3; O2SAT 98
[2016-07-26] MEDS ORDERED: ONDANSETRON HCL 4 MG/2 ML VIAL IVP ONE (02:15)
[2016-07-26] MEDS ORDERED: SODIUM CHLOR 0.9% 1000 ML INJ 1,000 ML IV ONE (02:15)
[2016-07-26] MEDS ORDERED: SODIUM CHLORIDE 0.9% FLUSH 5 ML FLUSH IVF PRN (02:15)
[2016-07-26] MEDS ORDERED: HYDROmorphone HCL PF 1 MG/ML VIAL IVS ONE ×2 (02:15→03:45)
[2016-07-26] MEDS ORDERED: diphenhydrAMINE HCL 50 MG/ML VIAL IV PUSH ONE ×2 (02:15→03:45)
--- NOTE | 2016-07-26 02:43 | RADRPT ---
EXAM DATE/TIME: 07/26/2016 02:21 [facility] COMPARISON: CHEST SINGLE AP, July 10, 2016, 3:44. INDICATIONS : Shortness of breath. MEDICAL HISTORY : Sickle Cell disease. SURGICAL HISTORY : Port placement. ENCOUNTER: Initial ACUITY: 1 day PAIN SCORE: 0/10 LOCATION: Bilateral chest FINDINGS: A single view of the chest demonstrates [id number] in superior vena cava. Minimal basilar atelecta sis or scarring. Cardiomegaly. No effusion or pneumothorax. CONCLUSION: 1. Cardiomegaly. [id number] in superior vena cava. Minimal basilar atelectasis or scarring. No sabrina nge from July 10. Patrice Cheema MD on July 26, 2016 at 2:40 Board Certified Radiologist. This report was verified electronically.
[2016-07-26 02:44] LABS: BASOPHIL # 0.2 TH/MM3 (0-0.2); BASOPHIL % 1.3 % (0.0-2.0); EOSINOPHIL # 0.4 TH/MM3 (0-0.4); EOSINOPHIL % 3.2 % (0.0-4.0); HEMATOCRIT 22.7 % (35.0-46.0); LYMPH % 45.7 % (9.0-44.0); LYMPHOCYTE # 5.6 TH/MM3 (1.0-4.8); MEAN CELL VOLUME 88.4 FL (80.0-100.0); MEAN CORPUSCULAR HEMOGLOBIN 31.2 PG (27.0-34.0); MEAN CORPUSCULAR HGB CONC 35.3 % (32.0-36.0); MONO % 9.2 % (0.0-8.0); NEUT % 40.6 % (16.0-70.0); PLATELET COUNT 440 TH/MM3 (150-450); RED BLOOD COUNT 2.56 MIL/MM3 (4.00-5.30); RED CELL DISTRIBUTION WIDTH 19.7 % (11.6-17.2); RETIC % 10.2 % (0.4-3.0); WHITE BLOOD COUNT 12.4 TH/MM3 (4.0-11.0)
[2016-07-26 02:46] LABS: HEMO FLAGS AUTO DIFF
[2016-07-26 02:47] LABS: REVIEW FLAG AUTO DIFF
[2016-07-26 03:03] LABS: BICARBONATE 28.4 MEQ/L (21.0-32.0); POTASSIUM 3.7 MEQ/L (3.5-5.1)
[2016-07-26 03:09] LABS: BANDS 1 % (0-6); CORRECTED NUCLEATED RBC 2 /100 WBC (0-0); EOSINOPHILS 3 % (0-4); NEUTROPHIL # MANUAL DIFF 6.7 TH/MM3 (1.8-7.7); PLATELET ESTIMATE SMEAR HIGH (NORMAL); PLATELET MORPHOLOGY NORMAL (NORMAL); POLYS (SEG NEUTROPHILS) 53 % (16-70); SCAN/DIFF FINAL DIFF MANUAL; WBC DIFF SAMPLE 100
[2016-07-26 03:10] LABS: HOWELL-JOLLY BODIES PRESENT (NONE SEEN); SICKLE CELLS 2+ (NORMAL)
[2016-07-26 03:11] LABS: TOXIC VACUOLATION PRESENT (NONE SEEN)
[2016-07-26 05:07] VITALS: RESP 18
--- NOTE | 2016-07-26 05:08 | PD ---
HPI Chief Complaint: Sickle Cell Time Seen by Provider: 02:08 Travel History International Travel<30 days: No Contact w/Intl Traveler<30days: No Traveled to known affect area: No History of Present Illness HPI Patient is a 30-year-old female who presents to emergency room with complaints of sickle cell crisis. Patient reports that she recently started her menstrual cycle on Friday, reports that this seemed to exacerbate her sickle cell pain. Reports that she feels as if she is an sickle cell crisis at this time, reports that she is having increased pains to her chest, back, leg. Patient reports that her symptoms are similar to her normal sickle cell crisis. Patient denies any fevers or chills, denies any nausea or vomiting. Patient reports that symptoms are typical sickle cell crisis, she usually does get IV Dilaudid, Zofran as well as Benadryl and fluids which usually helps with her symptoms. Patient does follow-up with Dr. Preez in the office with hematology [facility] Past Medical History Hx Anticoagulant Therapy: No Anemia: Yes (WITH MULTIPLE BLOOD TRANSFUSIONS) Arthritis: No Asthma: No Autoimmune Disease: No Blood Disorders: No Anxiety: No Depression: No Cancer: No Cardiovascular Problems: No Chemotherapy: No Chest Pain: Yes Congestive Heart Failure: No COPD: No Cerebrovascular Accident: No Diabetes: No Diminished Hearing: No Endocrine: No Gastrointestinal Disorders: Yes (GALLSTONES) GERD: No Genitourinary: No Headaches: Yes Hiatal Hernia: No Immune Disorder: Yes (SICKLE CELL) Implanted Vascular Access Dvce: Yes (RIGHT CHEST INFUSAPORT) Insomnia: Yes Kidney Stones: No Musculoskeletal: No Neurologic: No Psychiatric: No Reproductive: No Respiratory: No Immunizations Current: Yes Migraines: No Pneumonia: Yes Radiation Therapy: No Renal Failure: No Seizures: No Sickle Cell Disease: Yes Thyroid Disease: No Ulcer: No PNEUMOCCOCAL Vaccine (Year): 2 ?: Not LMP: NOW : 2 Para: 1 Miscarriage: 1 : 0 Tubal Ligation: Yes (IN 2007) Past Surgical History Abdominal Surgery: Yes AICD: No Arteriovenous Shunt: No Body Medical Devices: MEDPORT Cardiac Surgery: No Section: Yes Cholecystectomy: Yes (1994) Ear Surgery: No Endocrine Surgery: No Eye Surgery: No Genitourinary Surgery: No Gynecologic Surgery: Yes Insulin Pump: No Joint Replacement: No Oral Surgery: Yes Pacemaker: No Thoracic Surgery: Yes (CHEST PORT ) Tonsillectomy: Yes Other Surgery: Yes (RIGHT CHEST INFUSAPORT ) Social History Alcohol Use: No Tobacco Use: No Substance Use: No Allergies-Medications (Allergen,Severity, Reaction): Coded Allergies: Morphine (Verified Allergy, Severe, RASH, 07/26/16) *MDRO Multi-Drug Resistant Organism (Verified Adverse Reaction, Unknown, MRSA, 07/26/16) MRSA (blood) - 12/18/2004 Reported Meds & Prescriptions Reported Meds & Active Scripts Active Thera/Beta-Carotene (Multiple Vitamin) 1 Tab Tab 1 Tab PO DAILY Hydrocodone-Acetaminophen 7.5-325 mg Tab 1 Tab PO Q4H PRN Review of Systems General / Constitutional: No: Fever Eyes: No: Visual changes HENT: No: Headaches, Rhinorrhea Cardiovascular: Positive: Chest Pain or Discomfort Respiratory: No: Shortness of Breath Gastrointestinal: No: Abdominal Pain Genitourinary: No: Dysuria Musculoskeletal: Positive: Pain (leg pain and back pain) Skin: No Rash Neurologic: No: Weakness Psychiatric: No: Depression Endocrine: No: Polydipsia Hematologic/Lymphatic: No: Easy Bruising Physical Exam Narrative GENERAL: Mild distress SKIN: Warm and dry. HEAD: Atraumatic. Normocephalic. EYES: Pupils equal and round. No scleral icterus. No injection or drainage. ENT: No nasal bleeding or discharge. Mucous membranes pink and moist. NECK: Trachea midline. No JVD. CARDIOVASCULAR: Regular rate and rhythm. No murmur appreciated. RESPIRATORY: No accessory muscle use. Clear to auscultation. Breath sounds equal bilaterally. GASTROINTESTINAL: Abdomen soft, non-tender, nondistended. Hepatic and splenic margins not palpable. MUSCULOSKELETAL: No obvious deformities. No clubbing. No cyanosis. No edema. NEUROLOGICAL: Awake and alert. No obvious cranial nerve deficits. Motor grossly within normal limits. Normal speech. PSYCHIATRIC: Appropriate mood and affect; insight and judgment normal. Data Data Last Documented VS Vital Signs Date Time Temp Pulse Resp B/P Pulse Ox O2 Delivery O2 Flow Rate FiO2 07/26/16 05:07 18 07/26/16 01:38 Room Air 07/26/16 01:25 98.3 75 123/57 98 Orders Basic Metabolic Panel (Bmp) (07/26/16 02:15) Complete Blood Count With Diff (07/26/16 02:15) Retic Count (07/26/16 02:15) Chest, Single Ap (07/26/16 02:15) Ecg Monitoring (07/26/16 02:15) Iv Access Insert/Monitor (07/26/16 02:15) Oximetry (07/26/16 02:15) Ondansetron Inj (Zofran Inj) (07/26/16 02:15) Sodium Chloride 0.9% Flush (Ns Flush) (07/26/16 02:15) Sodium Chlor 0.9% 1000 Ml Inj (Ns 1000 M (07/26/16 02:15) Hydromorphone Pf Inj (Dilaudid Pf Inj) (07/26/16 02:15) Diphenhydramine Inj (Benadryl Inj) (07/26/16 02:15) Diphenhydramine Inj (Benadryl Inj) (07/26/16 03:45) Hydromorphone Pf Inj (Dilaudid Pf Inj) (07/26/16 03:45) Labs Laboratory Tests Test 07/26/16 02:30 White Blood Count 12.4 TH/MM3 Red Blood Count 2.56 MIL/MM3 Hemoglobin 8.0 GM/DL Hematocrit 22.7 % Mean Corpuscular Volume 88.4 FL Mean Corpuscular Hemoglobin 31.2 PG Mean Corpuscular Hemoglobin 35.3 % Concent Red Cell Distribution Width 19.7 % Platelet Count 440 TH/MM3 Mean Platelet Volume 9.1 FL Neutrophils (%) (Auto) 40.6 % Lymphocytes (%) (Auto) 45.7 % Monocytes (%) (Auto) 9.2 % Eosinophils (%) (Auto) 3.2 % Basophils (%) (Auto) 1.3 % Neutrophils # (Auto) 5.0 TH/MM3 Lymphocytes # (Auto) 5.6 TH/MM3 Monocytes # (Auto) 1.1 TH/MM3 Eosinophils # (Auto) 0.4 TH/MM3 Basophils # (Auto) 0.2 TH/MM3 CBC Comment AUTO DIFF Differential Total Cells 100 Counted Neutrophils % (Manual) 53 % Band Neutrophils % 1 % Lymphocytes % 40 % Monocytes % 3 % Eosinophils % 3 % Neutrophils # (Manual) 6.7 TH/MM3 Nucleated Red Blood Cells 2 /100 WBC Differential Comment FINAL DIFF MANUAL Toxic Vacuolation PRESENT Platelet Estimate HIGH Platelet Morphology Comment NORMAL Sickle Cells 2+ Fields-Repton Bodies PRESENT Reticulocyte Count 10.2 % Absolute Reticulocyte Count 261.6 MIL/L Sodium Level 142 MEQ/L Potassium Level 3.7 MEQ/L Chloride Level 105 MEQ/L Carbon Dioxide Level 28.4 MEQ/L Anion Gap 9 MEQ/L Blood Urea Nitrogen 7 MG/DL Creatinine 0.49 MG/DL Estimat Glomerular Filtration 177 ML/MIN Rate Random Glucose 102 MG/DL Calcium Level 8.6 MG/DL MDM Medical Decision Making Medical Screen Exam Complete: Yes Emergency Medical Condition: Yes Interpretation(s) Vital Signs Date Time Temp Pulse Resp B/P Pulse Ox O2 Delivery O2 Flow Rate FiO2 07/26/16 03:05 18 07/26/16 01:38 Room Air 07/26/16 01:25 98.3 75 14 123/57 98 Room Air Laboratory Tests Test 07/26/16 02:30 White Blood Count 12.4 TH/MM3 (4.0-11.0) Red Blood Count 2.56 MIL/MM3 (4.00-5.30) Hemoglobin 8.0 GM/DL (11.6-15.3) Hematocrit 22.7 % (35.0-46.0) Mean Corpuscular Volume 88.4 FL (80.0-100.0) Mean Corpuscular Hemoglobin 31.2 PG (27.0-34.0) Mean Corpuscular Hemoglobin 35.3 % Concent (32.0-36.0) Red Cell Distribution Width 19.7 % (11.6-17.2) Platelet Count 440 TH/MM3 (150-450) Mean Platelet Volume 9.1 FL (7.0-11.0) Neutrophils (%) (Auto) 40.6 % (16.0-70.0) Lymphocytes (%) (Auto) 45.7 % (9.0-44.0) Monocytes (%) (Auto) 9.2 % (0.0-8.0) Eosinophils (%) (Auto) 3.2 % (0.0-4.0) Basophils (%) (Auto) 1.3 % (0.0-2.0) Neutrophils # (Auto) 5.0 TH/MM3 (1.8-7.7) Lymphocytes # (Auto) 5.6 TH/MM3 (1.0-4.8) Monocytes # (Auto) 1.1 TH/MM3 (0-0.9) Eosinophils # (Auto) 0.4 TH/MM3 (0-0.4) Basophils # (Auto) 0.2 TH/MM3 (0-0.2) CBC Comment AUTO DIFF Differential Total Cells 100 Counted Neutrophils % (Manual) 53 % (16-70) Band Neutrophils % 1 % (0-6) Lymphocytes % 40 % (9-44) Monocytes % 3 % (0-8) Eosinophils % 3 % (0-4) Neutrophils # (Manual) 6.7 TH/MM3 (1.8-7.7) Nucleated Red Blood Cells 2 /100 WBC (0-0) Differential Comment FINAL DIFF MANUAL Toxic Vacuolation PRESENT (NONE SEEN) Platelet Estimate HIGH (NORMAL) Platelet Morphology Comment NORMAL (NORMAL) Sickle Cells 2+ (NORMAL) Fields-Repton Bodies PRESENT (NONE SEEN) Reticulocyte Count 10.2 % (0.4-3.0) Absolute Reticulocyte Count 261.6 MIL/L (20.0-150.0) Sodium Level 142 MEQ/L (136-145) Potassium Level 3.7 MEQ/L (3.5-5.1) Chloride Level 105 MEQ/L (98-107) Carbon Dioxide Level 28.4 MEQ/L (21.0-32.0) Anion Gap 9 MEQ/L (5-15) Blood Urea Nitrogen 7 MG/DL (7-18) Creatinine 0.49 MG/DL (0.50-1.00) Estimat Glomerular Filtration 177 ML/MIN Rate (>89) Random Glucose 102 MG/DL (74-106) Calcium Level 8.6 MG/DL (8.5-10.1) Differential Diagnosis Sickle cell disease, anemia Narrative Course Patient is a 30-year-old female who presents to emergency room with complaints of sickle cell crisis. Patient reports that she has been having increased chest , back, leg pain for the past few days. Patient reports that symptoms are typical her normal sickle cell crisis pain. Patient requesting pain medications at this time. Laboratory Tests Test 07/26/16 02:30 White Blood Count 12.4 TH/MM3 (4.0-11.0) Red Blood Count 2.56 MIL/MM3 (4.00-5.30) Hemoglobin 8.0 GM/DL (11.6-15.3) Hematocrit 22.7 % (35.0-46.0) Mean Corpuscular Volume 88.4 FL (80.0-100.0) Mean Corpuscular Hemoglobin 31.2 PG (27.0-34.0) Mean Corpuscular Hemoglobin 35.3 % Concent (32.0-36.0) Red Cell Distribution Width 19.7 % (11.6-17.2) Platelet Count 440 TH/MM3 (150-450) Mean Platelet Volume 9.1 FL (7.0-11.0) Neutrophils (%) (Auto) 40.6 % (16.0-70.0) Lymphocytes (%) (Auto) 45.7 % (9.0-44.0) Monocytes (%) (Auto) 9.2 % (0.0-8.0) Eosinophils (%) (Auto) 3.2 % (0.0-4.0) Basophils (%) (Auto) 1.3 % (0.0-2.0) Neutrophils # (Auto) 5.0 TH/MM3 (1.8-7.7) Lymphocytes # (Auto) 5.6 TH/MM3 (1.0-4.8) Monocytes # (Auto) 1.1 TH/MM3 (0-0.9) Eosinophils # (Auto) 0.4 TH/MM3 (0-0.4) Basophils # (Auto) 0.2 TH/MM3 (0-0.2) CBC Comment AUTO DIFF Differential Total Cells 100 Counted Neutrophils % (Manual) 53 % (16-70) Band Neutrophils % 1 % (0-6) Lymphocytes % 40 % (9-44) Monocytes % 3 % (0-8) Eosinophils % 3 % (0-4) Neutrophils # (Manual) 6.7 TH/MM3 (1.8-7.7) Nucleated Red Blood Cells 2 /100 WBC (0-0) Differential Comment FINAL DIFF MANUAL Toxic Vacuolation PRESENT (NONE SEEN) Platelet Estimate HIGH (NORMAL) Platelet Morphology Comment NORMAL (NORMAL) Sickle Cells 2+ (NORMAL) Fields-Repton Bodies PRESENT (NONE SEEN) Reticulocyte Count 10.2 % (0.4-3.0) Absolute Reticulocyte Count 261.6 MIL/L (20.0-150.0) Sodium Level 142 MEQ/L (136-145) Potassium Level 3.7 MEQ/L (3.5-5.1) Chloride Level 105 MEQ/L (98-107) Carbon Dioxide Level 28.4 MEQ/L (21.0-32.0) Anion Gap 9 MEQ/L (5-15) Blood Urea Nitrogen 7 MG/DL (7-18) Creatinine 0.49 MG/DL (0.50-1.00) Estimat Glomerular Filtration 177 ML/MIN Rate (>89) Random Glucose 102 MG/DL (74-106) Calcium Level 8.6 MG/DL (8.5-10.1) Last Impressions Chest X-Ray 07/26/16 0215 Signed Impressions: Service Date/Time: Tuesday, July 26, 2016 02:21 - CONCLUSION: 1. Cardiomegaly. [id number] in superior vena cava. Minimal basilar atelectasis or scarring. No change from July 10. Patrice Cheema MD Patient reports return of pain, will premedicate Patient reevaluated, patient with complete resolution of symptoms at this time. Patient will follow-up with her rug sample beveler and return to the emergency room as needed. I did review all labs and all studies with patient in detail. Diagnosis Primary Impression: Sickle cell pain crisis Additional Impression: Anemia Patient Instructions: General Instructions Additional Instructions: Please follow-up with your rug sample beveler Return to the emergency room as needed Disposition: 01 DISCHARGE HOME Condition: Stable Sheri Montoya DO Jul 26, 2016 05:08
[2016-07-26 05:20] VITALS: O2SAT 97
[2016-08-26] MEDS ORDERED: METH5TAB PO (11:49)
== END 2016-07-26 05:23 | disposition home or self-care (01) ==
LOC: NEPC 01:23
DX: D57.00 Hb-SS disease with crisis, unspecified (principal); D64.9 Anemia, unspecified
CPT/HCPCS: 71010; 80048; 85007; 85027; 85044; 96361; 96374; 96375; 96376; 99284; J1170; J1200; J1642; J2405; J7030

== ENCOUNTER 2016-07-30 03:03 | Emergency (ER) | payer OTHER ==
[2016-07-30 03:06] VITALS: BP 112/67; PULSE 84; RESP 16; TEMP 98.7; O2SAT 95
[2016-07-30] MEDS ORDERED: SODIUM CHLOR 0.9% 1000 ML INJ 1,000 ML IV ONE (05:07)
[2016-07-30] MEDS ORDERED: diphenhydrAMINE HCL 50 MG/ML VIAL IV PUSH ONE ×2 (05:15→06:45)
[2016-07-30] MEDS ORDERED: SODIUM CHLORIDE 0.9% FLUSH 5 ML FLUSH IVF PRN (05:15)
[2016-07-30] MEDS ORDERED: ONDANSETRON HCL 4 MG/2 ML VIAL IVP ONE (05:15)
[2016-07-30] MEDS ORDERED: HYDROmorphone HCL PF 1 MG/ML VIAL IVS ONE (05:15)
[2016-07-30 05:40] LABS: AUTOMATED NEUTROPHIL # 5.6 TH/MM3 (1.8-7.7); BASOPHIL # 0.2 TH/MM3 (0-0.2); BASOPHIL % 1.6 % (0.0-2.0); EOSINOPHIL # 0.3 TH/MM3 (0-0.4); EOSINOPHIL % 2.6 % (0.0-4.0); HEMATOCRIT 23.8 % (35.0-46.0); LYMPH % 35.2 % (9.0-44.0); LYMPHOCYTE # 3.8 TH/MM3 (1.0-4.8); MEAN CELL VOLUME 85.7 FL (80.0-100.0); MEAN CORPUSCULAR HEMOGLOBIN 30.5 PG (27.0-34.0); MEAN CORPUSCULAR HGB CONC 35.6 % (32.0-36.0); MONO % 8.2 % (0.0-8.0); NEUT % 52.4 % (16.0-70.0); PLATELET COUNT 396 TH/MM3 (150-450); RED BLOOD COUNT 2.78 MIL/MM3 (4.00-5.30); RED CELL DISTRIBUTION WIDTH 19.3 % (11.6-17.2); RETIC % 6.5 % (0.4-3.0); WHITE BLOOD COUNT 10.7 TH/MM3 (4.0-11.0)
[2016-07-30 05:45] LABS: HEMO FLAGS AUTO DIFF
[2016-07-30 06:00] LABS: ALKALINE PHOSPHATASE 100 U/L (45-117); ALT (GPT) 24 U/L (10-53); ANION GAP 9 MEQ/L (5-15); AST (GOT) 58 U/L (15-37); BICARBONATE 26.2 MEQ/L (21.0-32.0); BLOOD UREA NITROGEN 4 MG/DL (7-18); CHLORIDE 105 MEQ/L (98-107); GLOMERULAR FILTRATION RATE 165 ML/MIN (>89); POTASSIUM 3.9 MEQ/L (3.5-5.1); SODIUM (NA) 140 MEQ/L (136-145); TOTAL BILIRUBIN ADULT 2.1 MG/DL (0.2-1.0)
[2016-07-30] MEDS ORDERED: ONDANSETRON HCL 4 MG/2 ML VIAL IV PUSH ONE (06:45)
[2016-07-30] MEDS ORDERED: HYDROmorphone HCL PF 1 MG/ML VIAL IV PUSH ONE (06:45)
[2016-07-30 06:47] LABS: ACANTHOCYTES OCC (NORMAL); SICKLE CELLS 1+ (NORMAL); TARGET CELLS 1+ (NORMAL)
[2016-07-30 06:49] LABS: PLATELET ESTIMATE SMEAR NORMAL (NORMAL)
[2016-07-30 06:50] LABS: KERATOCYTES OCC (NORMAL); PLATELET MORPHOLOGY NORMAL (NORMAL); SCAN/DIFF AUTO DIFF CONFIRMED
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
[2016-07-30 07:22] VITALS: RESP 18; O2SAT 95
[2016-07-30] MEDS ORDERED: HYDR-3535 PO (07:29)
[2016-07-30 07:38] VITALS: RESP 18
[2016-08-26] MEDS ORDERED: METH5TAB PO (11:49)
== END 2016-07-30 07:58 | disposition home or self-care (01) ==
LOC: NEPC 03:03
DX: D57.00 Hb-SS disease with crisis, unspecified (principal); M54.5 Low back pain; M25.561 Pain in right knee; M25.562 Pain in left knee
CPT/HCPCS: 80053; 85025; 85044; 96361; 96374; 96375; 96376; 99283; J1170; J1200; J2405; J7030

== ENCOUNTER 2016-08-04 02:14 | Emergency (ER) | payer OTHER ==
[~2016-08-04 02:14] MED LIST changes: +HYDR-3535 PO
[2016-08-04] MEDS ORDERED: HYDROmorphone HCL PF 1 MG/ML VIAL IV PUSH ONE ×2 (02:35→03:00)
[2016-08-04] MEDS ORDERED: diphenhydrAMINE HCL 50 MG/ML VIAL IV PUSH ONE ×2 (02:35→03:00)
[2016-08-04] MEDS ORDERED: SODIUM CHLOR 0.9% 1000 ML INJ 1,000 ML IV ONE ×2 (02:35→03:00)
[2016-08-04 02:50] VITALS: BP 124/74; PULSE 108; RESP 18; TEMP 99.2; O2SAT 98
--- NOTE | 2016-08-04 02:51 | PD ---
HPI Chief Complaint: chest pain Time Seen by Provider: 02:47 Travel History International Travel<30 days: No Contact w/Intl Traveler<30days: No Traveled to known affect area: No History of Present Illness HPI 30-year-old female complaining chest pain, back pain, extremity pain. 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 Patient states the pain started 3 days ago. Patient denies any headache. Patient denies any neck pain. Patient denies any coughing congestion fever chills. Patient denies abdominal pain. Patient denies any nausea vomiting diarrhea. Patient denies any dysuria or frequency. PFSH Past Medical History Hx Anticoagulant Therapy: No Anemia: Yes (WITH MULTIPLE BLOOD TRANSFUSIONS) Arthritis: No Asthma: No Autoimmune Disease: No Blood Disorders: No Anxiety: No Depression: No Cancer: No Cardiovascular Problems: No Chemotherapy: No Chest Pain: Yes Congestive Heart Failure: No COPD: No Cerebrovascular Accident: No Diabetes: No Diminished Hearing: No Endocrine: No Gastrointestinal Disorders: Yes (GALLSTONES) GERD: No Genitourinary: No Headaches: Yes Hiatal Hernia: No Immune Disorder: Yes (SICKLE CELL) Implanted Vascular Access Dvce: Yes (RIGHT CHEST INFUSAPORT) Insomnia: Yes Kidney Stones: No Musculoskeletal: No Neurologic: No Psychiatric: No Reproductive: No Respiratory: No Immunizations Current: Yes Migraines: No Pneumonia: Yes Radiation Therapy: No Renal Failure: No Seizures: No Sickle Cell Disease: Yes Thyroid Disease: No Ulcer: No PNEUMOCCOCAL Vaccine (Year): 2 : 2 Para: 1 Miscarriage: 1 : 0 Tubal Ligation: Yes (IN 2007) Past Surgical History Abdominal Surgery: Yes AICD: No Arteriovenous Shunt: No Body Medical Devices: MEDPORT Cardiac Surgery: No Section: Yes Cholecystectomy: Yes (1994) Ear Surgery: No Endocrine Surgery: No Eye Surgery: No Genitourinary Surgery: No Gynecologic Surgery: Yes Insulin Pump: No Joint Replacement: No Oral Surgery: Yes Pacemaker: No Thoracic Surgery: Yes (CHEST PORT ) Tonsillectomy: Yes Other Surgery: Yes (RIGHT CHEST INFUSAPORT ) Social History Alcohol Use: No Tobacco Use: No Substance Use: No Allergies-Medications (Allergen,Severity, Reaction): Coded Allergies: Morphine (Verified Allergy, Severe, RASH, 08/04/16) *MDRO Multi-Drug Resistant Organism (Verified Adverse Reaction, Unknown, MRSA, 08/04/16) MRSA (blood) - 12/18/2004 Reported Meds & Prescriptions Reported Meds & Active Scripts Active Thera/Beta-Carotene (Multiple Vitamin) 1 Tab Tab 1 Tab PO DAILY Review of Systems General / Constitutional: No: Fever Eyes: No: Visual changes HENT: No: Headaches Cardiovascular: Positive: Chest Pain or Discomfort Respiratory: No: Shortness of Breath Gastrointestinal: No: Abdominal Pain Genitourinary: No: Dysuria Musculoskeletal: Positive: Pain Skin: No Rash Neurologic: No: Weakness Psychiatric: No: Depression Endocrine: No: Polydipsia Hematologic/Lymphatic: No: Easy Bruising Physical Exam Narrative GENERAL: Well-nourished, well-developed patient. SKIN: Warm and dry. HEAD: Normocephalic. EYES: No scleral icterus. No injection or drainage. NECK: Supple, trachea midline. No JVD or lymphadenopathy. CARDIOVASCULAR: Regular rate and rhythm without murmurs, gallops, or rubs. RESPIRATORY: Breath sounds equal bilaterally. No accessory muscle use. GASTROINTESTINAL: Abdomen soft, non-tender, nondistended. MUSCULOSKELETAL: No cyanosis, or edema. BACK: Nontender without obvious deformity. No CVA tenderness. Neurologic exam normal. Data Data Last Documented VS Vital Signs Date Time Temp Pulse Resp B/P Pulse Ox O2 Delivery O2 Flow Rate FiO2 08/04/16 02:53 108 18 08/04/16 02:50 99.2 124/74 98 Orders Sodium Chlor 0.9% 1000 Ml Inj (Ns 1000 M (08/04/16 03:00) Hydromorphone Pf Inj (Dilaudid Pf Inj) (08/04/16 03:00) Diphenhydramine Inj (Benadryl Inj) (08/04/16 03:00) Complete Blood Count With Diff (08/04/16 02:53) Iv Access Insert/Monitor (08/04/16 02:53) Ecg Monitoring (08/04/16 02:53) Oximetry (08/04/16 02:53) Retic Count (08/04/16 02:53) Hydromorphone Pf Inj (Dilaudid Pf Inj) (08/04/16 02:35) Diphenhydramine Inj (Benadryl Inj) (08/04/16 02:35) Sodium Chlor 0.9% 1000 Ml Inj (Ns 1000 M (08/04/16 02:35) Labs Laboratory Tests Test 08/04/16 03:10 White Blood Count 10.4 TH/MM3 Red Blood Count 2.39 MIL/MM3 Hemoglobin 7.4 GM/DL Hematocrit 20.1 % Mean Corpuscular Volume 84.2 FL Mean Corpuscular Hemoglobin 31.1 PG Mean Corpuscular Hemoglobin 37.0 % Concent Red Cell Distribution Width 20.7 % Platelet Count 326 TH/MM3 Mean Platelet Volume 8.3 FL Neutrophils (%) (Auto) 58.0 % Lymphocytes (%) (Auto) 29.8 % Monocytes (%) (Auto) 9.4 % Eosinophils (%) (Auto) 2.3 % Basophils (%) (Auto) 0.5 % Neutrophils # (Auto) 6.0 TH/MM3 Lymphocytes # (Auto) 3.1 TH/MM3 Monocytes # (Auto) 1.0 TH/MM3 Eosinophils # (Auto) 0.2 TH/MM3 Basophils # (Auto) 0.1 TH/MM3 CBC Comment AUTO DIFF Reticulocyte Count 10.6 % Absolute Reticulocyte Count 252.6 MIL/L MDM Medical Decision Making Medical Screen Exam Complete: Yes Emergency Medical Condition: Yes Medical Record Reviewed: Yes Interpretation(s) 3:52 AM. CBC normal globin 7.4 hematocrit 20.1. Patient's past hemoglobin run between 7.7-8.5. Reticulocyte count 10.6. Differential Diagnosis Differential diagnosis including sickle cell crisis, acute exacerbation of chronic pain. Narrative Course 30-year-old female with chest pain, back pain, extremity pain. History of sickle cell disease with frequent sickle cell crisis. Normal saline solution 1 L IV bolus. Dilaudid 1 mg IV. Benadryl 50 mg IV. Diagnosis Primary Impression: Sickle cell pain crisis Patient Instructions: General Instructions Additional Instructions: Encourage by mouth fluids. Follow-up with personal physician. Return if worse. Med/Other Pt SpecificInfo: No Change to Meds Disposition: 01 DISCHARGE HOME Condition: Stable Brent Gonsalves MD Aug 04, 2016 02:51 Brent Gonsalves MD Aug 04, 2016 02:51
[2016-08-04 03:27] LABS: BASOPHIL # 0.1 TH/MM3 (0-0.2); BASOPHIL % 0.5 % (0.0-2.0); EOSINOPHIL # 0.2 TH/MM3 (0-0.4); EOSINOPHIL % 2.3 % (0.0-4.0); LYMPH % 29.8 % (9.0-44.0); LYMPHOCYTE # 3.1 TH/MM3 (1.0-4.8); MEAN CELL VOLUME 84.2 FL (80.0-100.0); MEAN CORPUSCULAR HEMOGLOBIN 31.1 PG (27.0-34.0); MONO % 9.4 % (0.0-8.0); PLATELET COUNT 326 TH/MM3 (150-450); RED BLOOD COUNT 2.39 MIL/MM3 (4.00-5.30); RED CELL DISTRIBUTION WIDTH 20.7 % (11.6-17.2); RETIC % 10.6 % (0.4-3.0); WHITE BLOOD COUNT 10.4 TH/MM3 (4.0-11.0)
[2016-08-04 03:31] LABS: HEMO FLAGS AUTO DIFF
[2016-08-04 03:32] LABS: HEMATOCRIT 20.1 % (35.0-46.0)
[2016-08-04 04:18] VITALS: BP 112/68
[2016-08-04 04:37] LABS: KERATOCYTES 1+ (NORMAL); SICKLE CELLS 3+ (NORMAL); TARGET CELLS 1+ (NORMAL)
[2016-08-04 04:38] LABS: OVALOCYTES 1+ (NORMAL)
[2016-08-04 04:39] LABS: SCAN/DIFF AUTO DIFF CONFIRMED
[2016-08-26] MEDS ORDERED: METH5TAB PO (11:49)
== END 2016-08-04 04:19 | disposition home or self-care (01) ==
LOC: NETRI 02:14 → NEPC 04:19
DX: D57.00 Hb-SS disease with crisis, unspecified (principal); G89.29 Other chronic pain
CPT/HCPCS: 85025; 85044; 96374; 96375; 99284; J1170; J1200; J1642; J7030

== ENCOUNTER 2016-08-10 03:39 | Emergency (ER) | payer OTHER ==
[~2016-08-10] VITALS: Ht 152.4 cm; Wt 58.0 kg
[~2016-08-10 03:39] MED LIST changes: -HYDR-3535 PO; -HYDR-3580 PO
[2016-08-10 03:41] VITALS: BP 125/76; PULSE 98; RESP 14; TEMP 99.2; O2SAT 93
[2016-08-10] MEDS ORDERED: SODIUM CHLOR 0.9% 1000 ML INJ 1,000 ML IV ONE ×2 (04:44→05:50)
[2016-08-10] MEDS ORDERED: diphenhydrAMINE HCL 50 MG/ML VIAL IV ONE ×2 (04:45→06:00)
[2016-08-10] MEDS ORDERED: SODIUM CHLORIDE 0.9% FLUSH 10 ML FLUSH IVF PRN ×2 (04:45)
[2016-08-10] MEDS ORDERED: ONDANSETRON HCL 4 MG/2 ML VIAL IVP ONE ×2 (04:45→06:00)
[2016-08-10] MEDS ORDERED: HYDROmorphone HCL PF 1 MG/ML VIAL IVS ONE ×2 (04:45→06:00)
[2016-08-10 05:04] LABS: MEAN CORPUSCULAR HGB CONC 37.6 % (32.0-36.0)
[2016-08-10 05:13] VITALS: RESP 18; O2SAT 95
--- NOTE | 2016-08-10 05:28 | RADRPT ---
EXAM DATE/TIME: 08/10/2016 05:12 [facility] COMPARISON: CHEST SINGLE AP, July 26, 2016, 2:21. INDICATIONS : Shortness of breath. MEDICAL HISTORY : Sickle Cell disease. SURGICAL HISTORY : Port placement. ENCOUNTER: Initial ACUITY: 1 day PAIN SCORE: 0/10 LOCATION: Bilateral chest FINDINGS: Portable AP view of the chest demonstrates cardiac silhouette size at the upper limits for normal. Ri ght chest wall [id number] remains present. Lungs are underinflated with mild atelectasis at the ba ses. No pleural effusion, airspace consolidation, or pneumothorax is visualized. The bones and soft t issues demonstrate no acute finding. There has been prior cholecystectomy. CONCLUSION: Underinflated examination with mild atelectasis at the lung bases. Otherwise, no acute finding is vis ualized. Michael Ellsworth MD on August 10, 2016 at 5:26 Board Certified Radiologist. This report was verified electronically.
[2016-08-10 05:29] LABS: AUTOMATED NEUTROPHIL # 7.1 TH/MM3 (1.8-7.7); BASOPHIL # 0.1 TH/MM3 (0-0.2); BASOPHIL % 0.7 % (0.0-2.0); EOSINOPHIL # 0.3 TH/MM3 (0-0.4); EOSINOPHIL % 2.5 % (0.0-4.0); HEMATOCRIT 21.9 % (35.0-46.0); LYMPH % 27.7 % (9.0-44.0); LYMPHOCYTE # 3.3 TH/MM3 (1.0-4.8); MEAN CELL VOLUME 84.3 FL (80.0-100.0); MEAN CORPUSCULAR HEMOGLOBIN 31.7 PG (27.0-34.0); MONO % 9.8 % (0.0-8.0); NEUT % 59.3 % (16.0-70.0); PLATELET COUNT 362 TH/MM3 (150-450); RED CELL DISTRIBUTION WIDTH 20.1 % (11.6-17.2); WHITE BLOOD COUNT 11.9 TH/MM3 (4.0-11.0)
[2016-08-10 05:30] LABS: HEMO FLAGS AUTO DIFF
[2016-08-10 06:04] LABS: BICARBONATE 22.9 MEQ/L (21.0-32.0); POTASSIUM 3.8 MEQ/L (3.5-5.1)
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
[2016-08-10 06:24] LABS: SICKLE CELLS 3+ (NORMAL)
[2016-08-10 06:25] LABS: OVALOCYTES 1+ (NORMAL)
[2016-08-10 06:27] LABS: CRENATED RBCS 1+ (NORMAL); KERATOCYTES 1+ (NORMAL); SCAN/DIFF AUTO DIFF CONFIRMED; TEARDROP RBCS 1+ (NORMAL)
[2016-08-26] MEDS ORDERED: METH5TAB PO (11:49)
== END 2016-08-10 07:03 | disposition home or self-care (01) ==
LOC: NEPC 03:39
DX: D57.00 Hb-SS disease with crisis, unspecified (principal); M54.9 Dorsalgia, unspecified; M79.605 Pain in left leg; M79.604 Pain in right leg; Z86.2 Personal history of diseases of the blood and blood-forming organs and certain disorders involving the immune mechanism; Z87.19 Personal history of other diseases of the digestive system; Z87.01 Personal history of pneumonia (recurrent)
CPT/HCPCS: 71010; 80048; 85025; 96361; 96374; 96375; 96376; J1170; J1200; J1642; J2405; J7030

== ENCOUNTER 2016-08-12 03:31 | Inpatient (IN) | payer OTHER ==
[2016-08-12] VITALS (14 sets, daily range): BP systolic 89–120; BP diastolic 54–71; PULSE 62–88; RESP 15–21; TEMP 97.6–98.7; O2SAT 92–100
[~2016-08-12] VITALS: Ht 154.9 cm; Wt 62.5 kg
[2016-08-12] MEDS ORDERED: SODIUM CHLOR 0.9% 1000 ML INJ 1,000 ML IV ONE (05:42)
[2016-08-12] MEDS ORDERED: SODIUM CHLORIDE 0.9% FLUSH 10 ML FLUSH IVF PRN (05:45)
[2016-08-12 06:05] LABS: AUTOMATED NEUTROPHIL # 6.2 TH/MM3 (1.8-7.7); BASOPHIL # 0.1 TH/MM3 (0-0.2); BASOPHIL % 0.5 % (0.0-2.0); EOSINOPHIL # 0.3 TH/MM3 (0-0.4); EOSINOPHIL % 2.4 % (0.0-4.0); LYMPH % 42.7 % (9.0-44.0); MEAN CELL VOLUME 84.2 FL (80.0-100.0); MEAN CORPUSCULAR HEMOGLOBIN 30.3 PG (27.0-34.0); MONO % 10.2 % (0.0-8.0); NEUT % 44.2 % (16.0-70.0); PLATELET COUNT 388 TH/MM3 (150-450); RED BLOOD COUNT 1.49 MIL/MM3 (4.00-5.30); RETIC % 7.6 % (0.4-3.0); WHITE BLOOD COUNT 14.1 TH/MM3 (4.0-11.0)
[2016-08-12 06:09] LABS: BACTERIA, URINE MANY /hpf; BLOOD, URINE NEG (NEG); COMMENT (UR) CULTURE INDICATED; CULTURE IF INDICATED CULTURE INDICATED; GLUCOSE,URINE NEG (NEG); KETONE, URINE NEG (NEG); MUCUS URINE FEW /lpf (OCC); NITRITE,URINE POS (NEG); PH, URINE 5.5 (5.0-8.5); SQUAMOUS EPITHELIAL CELL URINE 1 /hpf (0-5); URINE COLOR YELLOW (YELLW/STRAW)
[2016-08-12 06:13] LABS: HEMO FLAGS AUTO DIFF; REVIEW FLAG AUTO DIFF
[2016-08-12 06:15] LABS: HEMATOCRIT 12.6 % (35.0-46.0)
[2016-08-12] MEDS ORDERED: ONDANSETRON HCL 4 MG/2 ML VIAL IV PUSH ONE ×2 (06:45→07:30)
[2016-08-12] MEDS ORDERED: HYDROmorphone HCL PF 1 MG/ML VIAL IV PUSH ONE ×2 (06:45→07:30)
[2016-08-12] MEDS ORDERED: diphenhydrAMINE HCL 50 MG/ML VIAL IV PUSH ONE ×2 (06:45→07:30)
[2016-08-12 06:49] LABS: BANDS 1 % (0-6); BASOPHILS 1 % (0-2); CORRECTED NUCLEATED RBC 3 /100 WBC (0-0); EOSINOPHILS 1 % (0-4); NEUTROPHIL # MANUAL DIFF 6.5 TH/MM3 (1.8-7.7); POLYS (SEG NEUTROPHILS) 45 % (16-70); WBC DIFF SAMPLE 100
[2016-08-12 06:51] LABS: HOWELL-JOLLY BODIES PRESENT (NONE SEEN); PLATELET ESTIMATE SMEAR NORMAL (NORMAL); PLATELET MORPHOLOGY NORMAL (NORMAL); SCAN/DIFF FINAL DIFF MANUAL; SICKLE CELLS 1+ (NORMAL); TARGET CELLS 1+ (NORMAL)
[2016-08-12 06:57] LABS: ALKALINE PHOSPHATASE 93 U/L (45-117); ALT (GPT) 17 U/L (10-53); ANION GAP 12 MEQ/L (5-15); AST (GOT) 60 U/L (15-37); BICARBONATE 23.4 MEQ/L (21.0-32.0); BLOOD UREA NITROGEN 6 MG/DL (7-18); CHLORIDE 106 MEQ/L (98-107); GLOMERULAR FILTRATION RATE 181 ML/MIN (>89); POTASSIUM 3.6 MEQ/L (3.5-5.1); SODIUM (NA) 141 MEQ/L (136-145); TOTAL BILIRUBIN ADULT 2.5 MG/DL (0.2-1.0)
[2016-08-12] MEDS ORDERED: SODIUM CHLORIDE 0.9% FLUSH 10 ML FLUSH IV FLUSH PRN (07:00)
[2016-08-12] MEDS ORDERED: cefTRIAXone INJ 1,000 MG in SODIUM CHLORIDE 0.9% INJ 100 ML IV ONE (07:00)
[2016-08-12] MEDS ORDERED: ONDANSETRON HCL 4 MG/2 ML VIAL IVP PRN (07:00)
[2016-08-12] MEDS ORDERED: ACETAMINOPHEN 325 MG TAB PO PRN (07:00)
[2016-08-12] MEDS ORDERED: BISACODYL 10 MG SUPP RECTAL PRN (07:00)
--- NOTE | 2016-08-12 07:30 | PD ---
HPI Chief Complaint: Sickle Cell Time Seen by Provider: 05:42 Travel History International Travel<30 days: No Contact w/Intl Traveler<30days: No Traveled to known affect area: No History of Present Illness HPI The patient is a 30 year old female who presents to the [facility] emergency department with a history of a sickle cell pain crisis that she reports began on Friday. The patient reports that the pain is in her back, chest, bilateral legs. The patient was seen in the emergency department on Friday regarding this. The patient reports that she was discharged home and has been taking Lortab, however it has not been helping. Her finished goods inspector is Dr. Perez. She reports that she is currently on her menstrual cycle. She reports that this started on . She denies her cycle being heavier than usual. She reports that it is usually heavy. She reports that she was previously on control pills last year, however they were discontinued related to headaches. The patient reports that her finished goods inspector will transfuse her if her hemoglobin is reportedly less than 6. The patient reports that her chest pain is related to her sickle cell crisis. She denies having any cough, congestion, fever, chills, or shortness of breath. She denies having any dysuria, hematuria, urinary urgency or frequency. The patient denies any neck pain,abdominal pain, vomiting, diarrhea, or neurologic symptoms. [facility] Past Medical History Narrative Medical The patient's past medical history is significant for sickle cell anemia with frequent pain crises, history of chest pain with her sickle cell pain crises, history of gallstones, history of pneumonia. Hx Anticoagulant Therapy: No Anemia: Yes (WITH MULTIPLE BLOOD TRANSFUSIONS) Arthritis: No Asthma: No Autoimmune Disease: No Blood Disorders: No Anxiety: No Depression: No Cancer: No Cardiovascular Problems: No Chemotherapy: No Chest Pain: Yes Congestive Heart Failure: No COPD: No Cerebrovascular Accident: No Diabetes: No Diminished Hearing: No Endocrine: No Gastrointestinal Disorders: Yes (GALLSTONES) GERD: No Genitourinary: No Headaches: Yes Hiatal Hernia: No Immune Disorder: Yes (SICKLE CELL) Implanted Vascular Access Dvce: Yes (RIGHT CHEST INFUSAPORT) Insomnia: Yes Kidney Stones: No Musculoskeletal: No Neurologic: No Psychiatric: No Reproductive: No Respiratory: No Immunizations Current: Yes Migraines: No Pneumonia: Yes Radiation Therapy: No Renal Failure: No Seizures: No Sickle Cell Disease: Yes Thyroid Disease: No Ulcer: No Tetanus Vaccination: < 5 Years Influenza Vaccination: Yes PNEUMOCCOCAL Vaccine (Year): 2 ?: Not : 2 Para: 1 Miscarriage: 1 : 0 Tubal Ligation: Yes (IN 2007) Past Surgical History Narrative Surgical The patient's past surgical history is significant for Rvpfzf-s-Cvyo placement, cholecystectomy, , tonsillectomy. Abdominal Surgery: Yes AICD: No Arteriovenous Shunt: No Body Medical Devices: MEDPORT Cardiac Surgery: No Section: Yes Cholecystectomy: Yes (1994) Ear Surgery: No Endocrine Surgery: No Eye Surgery: No Genitourinary Surgery: No Gynecologic Surgery: Yes Insulin Pump: No Joint Replacement: No Oral Surgery: Yes Pacemaker: No Thoracic Surgery: Yes (CHEST PORT ) Tonsillectomy: Yes Other Surgery: Yes (RIGHT CHEST INFUSAPORT ) Social History Alcohol Use: No Tobacco Use: No Substance Use: No Allergies-Medications (Allergen,Severity, Reaction): Coded Allergies: Morphine (Verified Allergy, Severe, RASH, 08/12/16) *MDRO Multi-Drug Resistant Organism (Verified Adverse Reaction, Unknown, MRSA, 08/12/16) MRSA (blood) - 12/18/2004 Reported Meds & Prescriptions Reported Meds & Active Scripts Active Thera/Beta-Carotene (Multiple Vitamin) 1 Tab Tab 1 Tab PO DAILY Review of Systems Except as stated in HPI: all other systems reviewed are Neg General / Constitutional: No: Fever Eyes: No: Visual changes HENT: No: Headaches, Rhinorrhea, Congestion Cardiovascular: Positive: Chest Pain or Discomfort, No: Dyspnea on exertion Respiratory: No: Shortness of Breath Gastrointestinal: No: Nausea, Vomiting, Diarrhea, Abdominal Pain Genitourinary: No: Dysuria Musculoskeletal: No: Pain Skin: No Rash Neurologic: No: Weakness, Focal Abnormalities, Change in Mentation, Slurred Speech, Sensory Disturbance Psychiatric: No: Depression Endocrine: No: Polydipsia Hematologic/Lymphatic: No: Easy Bruising Physical Exam Narrative General: The patient is a well-developed well-nourished female, tearful on examination, however otherwise in no acute distress. Head and Neck exam: Head is normocephalic atraumatic. Eyes: EOMI, pupils are equal round and reactive to light. Nose: Midline septum with pink mucous membranes Mouth: Dentition unremarkable. Moist mucus membranes. Posterior oropharynx is not erythematous. No tonsillar hypertrophy. Uvula midline. Airway patent. Neck: No palpable lymphadenopathy. No nuchal rigidity. No thyromegaly. Cardiovascular: Regular rate and rhythm without murmurs, gallops, or rubs. Lungs: Clear to auscultation bilaterally. No wheezes, rhonchi, or rales. Abdomen: Soft, without tenderness to palpation in all 4 quadrants of the abdomen. No guarding, rebound, or rigidity. Normal bowel sounds are audible. No tenderness on palpation of McBurney's point. Extremities: No clubbing, cyanosis, or edema. 2+ pulses in all 4 extremities. No calf tenderness on palpation. No joint swelling or deformity. Back: No spinous process tenderness to palpation. Left-sided CVA tenderness on palpation. Neurologic Exam: Grossly nonfocal. Skin Exam: No rash noted. Intact skin that is warm and dry. Data Data Last Documented VS Vital Signs Date Time Temp Pulse Resp B/P Pulse Ox O2 Delivery O2 Flow Rate FiO2 08/12/16 06:30 98.1 76 18 111/65 100 08/12/16 06:14 Room Air Orders Complete Blood Count With Diff (08/12/16 05:42) Comprehensive Metabolic Panel (08/12/16 05:42) Retic Count (08/12/16 05:42) Urinalysis - C+S If Indicated (08/12/16 05:42) Ecg Monitoring (08/12/16 05:42) Iv Access Insert/Monitor (08/12/16 05:42) Oximetry (08/12/16 05:42) Oxygen Administration (08/12/16 05:42) Sodium Chloride 0.9% Flush (Ns Flush) (08/12/16 05:45) Sodium Chlor 0.9% 1000 Ml Inj (Ns 1000 M (08/12/16 05:42) Urine Culture (08/12/16 05:49) Red Blood Cells (Rbc) (08/12/16 06:20) Blood Product Administration .UPON TRANSFUSION (08/12/16 06:20) Type And Screen (08/12/16 06:20) Hydromorphone Pf Inj (Dilaudid Pf Inj) (08/12/16 06:45) Ondansetron Inj (Zofran Inj) (08/12/16 06:45) Diphenhydramine Inj (Benadryl Inj) (08/12/16 06:45) Ceftriaxone Inj (Rocephin Inj) (08/12/16 07:00) Admit Order (Ed Use Only) (08/12/16 06:50) Labs Laboratory Tests Test 08/12/16 05:49 White Blood Count 14.1 TH/MM3 Red Blood Count 1.49 MIL/MM3 Hemoglobin 4.5 GM/DL Hematocrit 12.6 % Mean Corpuscular Volume 84.2 FL Mean Corpuscular Hemoglobin 30.3 PG Mean Corpuscular Hemoglobin 36.0 % Concent Red Cell Distribution Width 20.0 % Platelet Count 388 TH/MM3 Mean Platelet Volume 8.4 FL Neutrophils (%) (Auto) 44.2 % Lymphocytes (%) (Auto) 42.7 % Monocytes (%) (Auto) 10.2 % Eosinophils (%) (Auto) 2.4 % Basophils (%) (Auto) 0.5 % Neutrophils # (Auto) 6.2 TH/MM3 Lymphocytes # (Auto) 6.0 TH/MM3 Monocytes # (Auto) 1.4 TH/MM3 Eosinophils # (Auto) 0.3 TH/MM3 Basophils # (Auto) 0.1 TH/MM3 CBC Comment AUTO DIFF Differential Total Cells 100 Counted Neutrophils % (Manual) 45 % Band Neutrophils % 1 % Lymphocytes % 48 % Monocytes % 4 % Eosinophils % 1 % Basophils % 1 % Neutrophils # (Manual) 6.5 TH/MM3 Nucleated Red Blood Cells 3 /100 WBC Differential Comment FINAL DIFF MANUAL Platelet Estimate NORMAL Platelet Morphology Comment NORMAL Polychromasia 2.0 % Sickle Cells 1+ Target Cells 1+ Fields-Brainerd Bodies PRESENT Reticulocyte Count 7.6 % Absolute Reticulocyte Count 112.8 MIL/L Urine Color YELLOW Urine Turbidity HAZY Urine pH 5.5 Urine Specific [place] 1.010 Urine Protein NEG mg/dL Urine Glucose (UA) NEG mg/dL Urine Ketones NEG mg/dL Urine Occult Blood NEG Urine Nitrite POS Urine Bilirubin NEG Urine Urobilinogen 2.0 MG/DL Urine Leukocyte Esterase SMALL Urine RBC 1 /hpf Urine WBC 11 /hpf Urine Squamous Epithelial 1 /hpf Cells Urine Bacteria MANY /hpf Urine Mucus FEW /lpf Microscopic Urinalysis Comment CULTURE INDICATED Sodium Level 141 MEQ/L Potassium Level 3.6 MEQ/L Chloride Level 106 MEQ/L Carbon Dioxide Level 23.4 MEQ/L Anion Gap 12 MEQ/L Blood Urea Nitrogen 6 MG/DL Creatinine 0.48 MG/DL Estimat Glomerular Filtration 181 ML/MIN Rate Random Glucose 85 MG/DL Calcium Level 8.8 MG/DL Total Bilirubin 2.5 MG/DL Aspartate Amino Transf 60 U/L (AST/SGOT) Alanine Aminotransferase 17 U/L (ALT/SGPT) Alkaline Phosphatase 93 U/L Total Protein 8.0 GM/DL Albumin 3.5 GM/DL MDM Medical Decision Making Medical Screen Exam Complete: Yes Emergency Medical Condition: Yes Medical Record Reviewed: Yes Differential Diagnosis Sickle cell pain crisis, versus worsening anemia related to menstrual cycle with sickle cell anemia, versus pyelonephritis, versus cystitis Narrative Course During the course of the patients emergency department visit, the patients history, examination, and differential diagnosis were reviewed with the patient. The patient had her Mxvwfo-w-Hioh access. The patient was placed on a monitoring engineer with oximetry and blood pressure monitoring. The patient was provided normal saline 1 L IV fluid bolus, hydromorphone 1 mg IV , Zofran 4 mg IV, Benadryl 25 mg IV. When she had continued pain the patient was given a second dose of pain medication. The patients laboratory studies were reviewed and remarkable for a CBC that shows a white count of 14.1, hemoglobin 4.5, platelets 388 with 48 lymphocytes. The patient was typed and crossmatched for 2 units of pack red blood cells, 1 unit will be administered and her hemoglobin will be reassessed. CMP is remarkable for a BUN of 6, creatinine 0.48, AST 60, total bilirubin 2.5, urinalysis shows positive nitrites small leukocyte esterase 11 wbc's 1 RBC many bacteria. The patient was started on Rocephin 1 g IV. The patient's results were discussed with her. She is agreeable with plan to proceed with admission for sickle cell pain crisis with intractable pain and worsening anemia. The patients results were discussed with the patient, including the plan of care. I explained that further testing and/ or monitoring is indicated based on the patients history, examination, and/ or laboratory findings. Therefore, I recommended admission for additional evaluation. The patient expressed understanding and was agreeable with this plan. The patient was admitted to the hospital in stable condition and sent to a bed under the care of the [facility]. Physician Communication Physician Communication The patient's case is discussed with Dr. Galdamez who did agree to admit the patient for further evaluation and treatment at this time. Diagnosis Primary Impression: Sickle cell pain crisis Additional Impressions: Anemia Qualified Code: D64.9 - Anemia, unspecified type Urinary tract infection Qualified Code: N39.0 - Urinary tract infection without hematuria, site unspecified Admitting Information Admitting Physician Requests: it Mignon Lin MD Aug 12, 2016 07:30
--- NOTE | 2016-08-12 08:04 | HHI.HP ---
[facility] Primary Care Physician No Primary Care Physician Admission Diagnosis Sickle cell pain crisis, worsening anemia Diagnoses: Chief Complaint: Sickle Cell Pain crisis Travel History International Travel<30 Days: No Contact w/Intl Traveler <30 Da: No Traveled to Known Affected Are: No History of Present Illness This is a pleasant 30 y/o Female with Sickle Cell disease, multiple admissions due to Sickle Cell crisis with Anemia, chronic Pain syndrome/Narcotic dependence/Narcotic Seeking Behavior, followed by business analysis specialist doctor Chris Velasquez. the patient was seen already some days ago in ER, reported back pain, chest and bilateral leg pain, discharged on Lortab but not helping, currently on her Menstrual cycle, heavier than usual, she was on control pills last year was discontinued related to Headaches, reported that her process specialist recommended to transfuse as needed for Hb less than 6. She denies having any cough, congestion, fever, chills, or shortness of breath. She denies having any dysuria, hematuria, urinary urgency or frequency. The patient denies any neck pain,abdominal pain, vomiting , diarrhea, or neurologic symptoms. Seen in her bedroom no new symptoms stable Past Family Social History Past Medical History Sickled Cell Disease Multiple blood transfusions. Past Surgical History Tubal ligation Ijwakn-z-Sbep placement Cholecystectomy 1994 Tonsillectomy Reported Medications Reported Meds & Active Scripts Active Thera/Beta-Carotene (Multiple Vitamin) 1 Tab Tab 1 Tab PO DAILY Allergies: Coded Allergies: Morphine (Verified Allergy, Severe, RASH, 08/12/16) *MDRO Multi-Drug Resistant Organism (Verified Adverse Reaction, Unknown, MRSA, 08/12/16) MRSA (blood) - 12/18/2004 Active Ordered Medications Current Medications Medications (Trade) Dose Ordered Sig/Marielle Route Start Time Stop Time Status Last Admin (Folate) 1 mg DAILY PO 08/12/16 09:00 Diphenhydramine HCl 25 mg 25 mg Q4H PRN IV PUSH 08/12/16 07:00 (NS 1000 ml Inj) 1,000 ml @ 150 mls/hr Q6H40M IV 08/12/16 08:00 (NS Flush) 2 ml UNSCH PRN IV FLUSH 08/12/16 07:00 (NS Flush) 2 ml BID IV FLUSH 08/12/16 09:00 (Zofran Inj) 4 mg Q6H PRN IVP 08/12/16 07:00 (Dulcolax Supp) 10 mg DAILY PRN RECTAL 08/12/16 07:00 (Tylenol) 650 mg Q6H PRN PO 08/12/16 07:00 (Dilaudid Pf Inj) 1 mg Q2H PRN IV 08/12/16 07:00 (Dilaudid Pf Inj) 2 mg Q3H PRN IV 08/12/16 07:00 (Theragran) 1 tab DAILY PO 08/12/16 09:00 Family History Sister with sickle cell disease Denies any other significant family history of cancers, stroke, diabetes, or heart disease. Social History Lives with her Son, Denies any tobacco, alcohol, or illicit drug use. Physical Exam Vital Signs Vital Signs Date Time Temp Pulse Resp B/P Pulse Ox O2 Delivery O2 Flow Rate FiO2 08/12/16 06:30 98.1 76 18 111/65 100 08/12/16 06:14 100 Room Air 08/12/16 06:14 98 Room Air 08/12/16 05:11 75 18 100 Room Air 08/12/16 03:32 98.7 88 16 120/62 94 Physical Exam GENERAL: This is a well-nourished, well-developed patient, in no apparent distress. SKIN: No rashes, ecchymoses or lesions. Cool and dry. HEAD: Atraumatic. Normocephalic. No temporal or scalp tenderness. EYES: Pupils equal round and reactive. Extraocular motions intact. No scleral icterus. No injection or drainage. ENT: Nose without bleeding, purulent drainage or septal hematoma. Throat without erythema, tonsillar hypertrophy or exudate. Uvula midline. Airway patent. NECK: Trachea midline. No JVD or lymphadenopathy. Supple, nontender, no meningeal signs. CARDIOVASCULAR: Regular rate and rhythm without murmurs, gallops, or rubs. RESPIRATORY: Clear to auscultation. Breath sounds equal bilaterally. No wheezes , rales, or rhonchi. GASTROINTESTINAL: Abdomen soft, non-tender, nondistended. No hepato-splenomegaly , or palpable masses. No guarding. MUSCULOSKELETAL: Extremities without clubbing, cyanosis, or edema. No joint tenderness, effusion, or edema noted. No calf tenderness. Negative Homans sign bilaterally. NEUROLOGICAL: Awake and alert. Cranial nerves II through XII intact. Motor and sensory grossly within normal limits. Five out of 5 muscle strength in all muscle groups. Normal speech. Laboratory Laboratory Tests Test 08/12/16 08/12/16 05:49 06:30 White Blood Count 14.1 Red Blood Count 1.49 Hemoglobin 4.5 Hematocrit 12.6 Mean Corpuscular Volume 84.2 Mean Corpuscular Hemoglobin 30.3 Mean Corpuscular Hemoglobin 36.0 Concent Red Cell Distribution Width 20.0 Platelet Count 388 Mean Platelet Volume 8.4 Neutrophils (%) (Auto) 44.2 Lymphocytes (%) (Auto) 42.7 Monocytes (%) (Auto) 10.2 Eosinophils (%) (Auto) 2.4 Basophils (%) (Auto) 0.5 Neutrophils # (Auto) 6.2 Lymphocytes # (Auto) 6.0 Monocytes # (Auto) 1.4 Eosinophils # (Auto) 0.3 Basophils # (Auto) 0.1 CBC Comment AUTO DIFF Differential Total Cells 100 Counted Neutrophils % (Manual) 45 Band Neutrophils % 1 Lymphocytes % 48 Monocytes % 4 Eosinophils % 1 Basophils % 1 Neutrophils # (Manual) 6.5 Nucleated Red Blood Cells 3 Differential Comment FINAL DIFF MANUAL Platelet Estimate NORMAL Platelet Morphology Comment NORMAL Polychromasia 2.0 Sickle Cells 1+ Target Cells 1+ Fields-Thomson Bodies PRESENT Reticulocyte Count 7.6 Absolute Reticulocyte Count 112.8 Urine Color YELLOW Urine Turbidity HAZY Urine pH 5.5 Urine Specific [place] 1.010 Urine Protein NEG Urine Glucose (UA) NEG Urine Ketones NEG Urine Occult Blood NEG Urine Nitrite POS Urine Bilirubin NEG Urine Urobilinogen 2.0 Urine Leukocyte Esterase SMALL Urine RBC 1 Urine WBC 11 Urine Squamous Epithelial 1 Cells Urine Bacteria MANY Urine Mucus FEW Microscopic Urinalysis Comment CULTURE INDICATED Sodium Level 141 Potassium Level 3.6 Chloride Level 106 Carbon Dioxide Level 23.4 Anion Gap 12 Blood Urea Nitrogen 6 Creatinine 0.48 Estimat Glomerular Filtration 181 Rate Random Glucose 85 Calcium Level 8.8 Total Bilirubin 2.5 Aspartate Amino Transf 60 (AST/SGOT) Alanine Aminotransferase 17 (ALT/SGPT) Alkaline Phosphatase 93 Total Protein 8.0 Albumin 3.5 Blood Type B POSITIVE Antibody Screen NEGATIVE Crossmatch Leukocyte-Reduced Red Blood Cells Blood Bank Comment Date/Time Procedure Status Source Growth 08/12/16 05:49 Urine Culture Received Urine Clean Catch Pending Result Diagram: 08/12/16 0549 08/12/16 0549 Imaging No new imaging studies performed. Assessment and Plan Assessment and Plan 1-Sickle cell pain crisis: Supportive care with IV fluid hydration, pain management, multivitamin 1 tablet by mouth daily consult process specialist. 2-Anemia, Hemoglobin 4.5 due to sickle cell disease, related to menstrual cycle , Transfuse 2 units packed red blood cell and monitor H&H 3. UTI on Rocephin, DVT prophylaxis:SCDs Code Status Full code Discussed Condition With Patient Code Status Full Code Discussed Condition With Patient in the room. Physician Certification 2 Midnight Certification Type: Admission for Inpatient Services Order for Inpatient Services The services are ordered in accordance with Medicare regulations or non- Medicare payer requirements, as applicable. In the case of services not specified as inpatient-only, they are appropriately provided as inpatient services in accordance with the 2-midnight benchmark. Estimated LOS (days): 3 days is the estimated time the patient will need to remain in the hospital, assuming treatment plan goals are met and no additional complications. Post-Hospital Plan: Home Aldo Fletcher MD Aug 12, 2016 08:04
[2016-08-12] MEDS: SODIUM CHLOR 0.9% 1000 ML INJ 1,000 ML IV SCH ×2 (08:22→17:05)
[2016-08-12] MEDS: MULTIVITAMIN TAB PO SCH (08:22)
[2016-08-12] MEDS: FOLIC ACID 1 MG TAB PO SCH (08:22)
[2016-08-12] MEDS: SODIUM CHLORIDE 0.9% FLUSH 10 ML FLUSH IV FLUSH SCH ×2 (08:22→21:00)
[2016-08-12] MEDS: diphenhydrAMINE HCL 50 MG/ML VIAL IV PUSH PRN ×4 (11:29→21:32)
[2016-08-12] MEDS: HYDROmorphone HCL PF 2 MG/ML VIAL IV PRN (11:30)
[2016-08-12] MEDS: HYDROmorphone HCL PF 1 MG/ML VIAL IV PRN ×3 (14:59→21:32)
[2016-08-12 21:02] LABS: MEAN CORPUSCULAR HGB CONC 36.3 % (32.0-36.0)
[2016-08-13] VITALS (7 sets, daily range): BP systolic 98–125; BP diastolic 58–83; PULSE 62–73; RESP 17–20; TEMP 97.2–98.5; O2SAT 92–96
[2016-08-13] MEDS: diphenhydrAMINE HCL 50 MG/ML VIAL IV PUSH PRN ×6 (00:38→22:39)
[2016-08-13] MEDS: HYDROmorphone HCL PF 1 MG/ML VIAL IV PRN ×8 (00:39→22:38)
[2016-08-13 05:38] LABS: AUTOMATED NEUTROPHIL # 3.2 TH/MM3 (1.8-7.7); BASOPHIL # 0.1 TH/MM3 (0-0.2); BASOPHIL % 1.1 % (0.0-2.0); EOSINOPHIL # 0.3 TH/MM3 (0-0.4); EOSINOPHIL % 4.2 % (0.0-4.0); HEMATOCRIT 26.4 % (35.0-46.0); LYMPH % 43.9 % (9.0-44.0); LYMPHOCYTE # 3.5 TH/MM3 (1.0-4.8); MEAN CELL VOLUME 83.6 FL (80.0-100.0); MEAN CORPUSCULAR HEMOGLOBIN 30.3 PG (27.0-34.0); MONO % 10.2 % (0.0-8.0); NEUT % 40.6 % (16.0-70.0); PLATELET COUNT 294 TH/MM3 (150-450); RED BLOOD COUNT 3.15 MIL/MM3 (4.00-5.30); RED CELL DISTRIBUTION WIDTH 22.3 % (11.6-17.2); WHITE BLOOD COUNT 7.9 TH/MM3 (4.0-11.0)
[2016-08-13 05:42] LABS: HEMO FLAGS AUTO DIFF
[2016-08-13 06:12] LABS: ALKALINE PHOSPHATASE 78 U/L (45-117)
[2016-08-13 06:22] LABS: ALT (GPT) 13 U/L (10-53); ANION GAP 9 MEQ/L (5-15); AST (GOT) 49 U/L (15-37); BICARBONATE 22.7 MEQ/L (21.0-32.0); BLOOD UREA NITROGEN 3 MG/DL (7-18); CHLORIDE 109 MEQ/L (98-107); GLOMERULAR FILTRATION RATE 218 ML/MIN (>89); POTASSIUM 3.7 MEQ/L (3.5-5.1); SODIUM (NA) 141 MEQ/L (136-145)
[2016-08-13] MEDS: SODIUM CHLOR 0.9% 1000 ML INJ 1,000 ML IV SCH ×2 (06:30→07:00)
[2016-08-13] MEDS: MULTIVITAMIN TAB PO SCH (07:50)
[2016-08-13] MEDS: FOLIC ACID 1 MG TAB PO SCH (07:50)
[2016-08-13] MEDS: cefTRIAXone INJ 1,000 MG in SODIUM CHLORIDE 0.9% INJ 100 ML IV SCH (07:53)
[2016-08-13 07:57] LABS: BANDS 1 % (0-6); CORRECTED NUCLEATED RBC 4 /100 WBC (0-0); EOSINOPHILS 4 % (0-4); NEUTROPHIL # MANUAL DIFF 3.6 TH/MM3 (1.8-7.7); POLYS (SEG NEUTROPHILS) 45 % (16-70); WBC DIFF SAMPLE 100
[2016-08-13 07:58] LABS: HOWELL-JOLLY BODIES PRESENT (NONE SEEN); OVALOCYTES 1+ (NORMAL); PLATELET ESTIMATE SMEAR NORMAL (NORMAL); PLATELET MORPHOLOGY NORMAL (NORMAL); SCAN/DIFF FINAL DIFF MANUAL; SICKLE CELLS 2+ (NORMAL)
--- NOTE | 2016-08-13 09:01 | HHI.PR ---
Subjective Remarks This is a pleasant 30 y/o Female with Sickle Cell disease, multiple admissions due to Sickle Cell crisis with Anemia, chronic Pain syndrome/Narcotic dependence/Narcotic Seeking Behavior, followed by payroll accounting specialist doctor Chris Velasquez. the patient was seen already some days ago in ER, reported back pain, chest and bilateral leg pain, discharged on Lortab but not helping, currently on her Menstrual cycle, heavier than usual, she was on control pills last year was discontinued related to Headaches, reported that her cyber security specialist recommended to transfuse as needed for Hb less than 6. 4/04 Seen in her bedroom at all times with Nurse Mr. Mathur, no nausea, vomit or diarrhea, discussed with her about the use of Benadryl and Dilaudid together has to be given Benadryl Before Dilaudid because is given for itching and not for Synergistic Purposes. Objective Vital Signs Date Time Temp Pulse Resp B/P Pulse Ox O2 Delivery O2 Flow Rate FiO2 08/13/16 04:00 97.5 69 20 98/58 94 08/13/16 00:00 97.3 62 20 103/69 94 08/12/16 21:00 62 08/12/16 20:00 98.7 64 20 110/71 98 08/12/16 17:30 98.2 73 18 101/68 94 08/12/16 16:58 98.2 71 19 106/69 95 08/12/16 16:00 98.3 69 19 96/69 96 08/12/16 12:00 97.6 72 19 89/59 94 08/12/16 12:00 97.6 72 19 89/59 96 08/12/16 10:00 98.0 72 18 98/71 95 08/12/16 09:30 98.1 72 20 99/59 93 Room Air 08/12/16 09:08 98.0 75 18 99/54 92 Room Air I/O 08/12/16 08/12/16 08/12/16 08/13/16 08/13/16 08/13/16 07:00 15:00 23:00 07:00 15:00 23:00 Intake Total 500 ml Balance 500 ml Intake Oral 500 ml # Voids 4 1 # Bowel Movements 2 Result Diagram: 08/13/1651908/13/16 05 Imaging No Imaging studies performed. Procedures No procedures performed. Other Results Laboratory Tests Test 08/12/16 08/12/16 08/13/16 05:49 06:30 05:20 Basophils % 1 % Polychromasia 2.0 % Target Cells 1+ Reticulocyte Count 7.6 % Absolute Reticulocyte Count 112.8 MIL/L Urine Color YELLOW Urine Turbidity HAZY Urine pH 5.5 Urine Specific [place] 1.010 Urine Protein NEG mg/dL Urine Glucose (UA) NEG mg/dL Urine Ketones NEG mg/dL Urine Occult Blood NEG Urine Nitrite POS Urine Bilirubin NEG Urine Urobilinogen 2.0 MG/DL Urine Leukocyte Esterase SMALL Urine RBC 1 /hpf Urine WBC 11 /hpf Urine Squamous Epithelial 1 /hpf Cells Urine Bacteria MANY /hpf Urine Mucus FEW /lpf Microscopic Urinalysis Comment CULTURE INDICATED Blood Type B POSITIVE Antibody Screen NEGATIVE Crossmatch Leukocyte-Reduced Red Blood Cells Blood Bank Comment White Blood Count 7.9 TH/MM3 Red Blood Count 3.15 MIL/MM3 Hemoglobin 9.6 GM/DL Hematocrit 26.4 % Mean Corpuscular Volume 83.6 FL Mean Corpuscular Hemoglobin 30.3 PG Mean Corpuscular Hemoglobin 36.3 % Concent Red Cell Distribution Width 22.3 % Platelet Count 294 TH/MM3 Mean Platelet Volume 7.9 FL Neutrophils (%) (Auto) 40.6 % Lymphocytes (%) (Auto) 43.9 % Monocytes (%) (Auto) 10.2 % Eosinophils (%) (Auto) 4.2 % Basophils (%) (Auto) 1.1 % Neutrophils # (Auto) 3.2 TH/MM3 Lymphocytes # (Auto) 3.5 TH/MM3 Monocytes # (Auto) 0.8 TH/MM3 Eosinophils # (Auto) 0.3 TH/MM3 Basophils # (Auto) 0.1 TH/MM3 CBC Comment AUTO DIFF Differential Total Cells 100 Counted Neutrophils % (Manual) 45 % Band Neutrophils % 1 % Lymphocytes % 43 % Monocytes % 7 % Eosinophils % 4 % Neutrophils # (Manual) 3.6 TH/MM3 Nucleated Red Blood Cells 4 /100 WBC Differential Comment FINAL DIFF MANUAL Platelet Estimate NORMAL Platelet Morphology Comment NORMAL Sickle Cells 2+ Ovalocytes 1+ [place] Bodies PRESENT Sodium Level 141 MEQ/L Potassium Level 3.7 MEQ/L Chloride Level 109 MEQ/L Carbon Dioxide Level 22.7 MEQ/L Anion Gap 9 MEQ/L Blood Urea Nitrogen 3 MG/DL Creatinine 0.41 MG/DL Estimat Glomerular Filtration 218 ML/MIN Rate Random Glucose 84 MG/DL Calcium Level 8.1 MG/DL Total Bilirubin 2.0 MG/DL Aspartate Amino Transf 49 U/L (AST/SGOT) Alanine Aminotransferase 13 U/L (ALT/SGPT) Alkaline Phosphatase 78 U/L Total Protein 6.9 GM/DL Albumin 3.0 GM/DL Objective Remarks GENERAL: This is a well-nourished, well-developed patient, in no apparent distress. SKIN: No rashes, ecchymoses or lesions. Cool and dry. HEAD: Atraumatic. Normocephalic. No temporal or scalp tenderness. EYES: Pupils equal round and reactive. Extraocular motions intact. No scleral icterus. No injection or drainage. ENT: Nose without bleeding, purulent drainage or septal hematoma. Throat without erythema, tonsillar hypertrophy or exudate. Uvula midline. Airway patent. NECK: Trachea midline. No JVD or lymphadenopathy. Supple, nontender, no meningeal signs. CARDIOVASCULAR: Regular rate and rhythm without murmurs, gallops, or rubs. RESPIRATORY: Clear to auscultation. Breath sounds equal bilaterally. No wheezes , rales, or rhonchi. GASTROINTESTINAL: Abdomen soft, non-tender, nondistended. No hepato-splenomegaly , or palpable masses. No guarding. MUSCULOSKELETAL: Extremities without clubbing, cyanosis, or edema. No joint tenderness, effusion, or edema noted. No calf tenderness. Negative Homans sign bilaterally. NEUROLOGICAL: Awake and alert. Cranial nerves II through XII intact. Motor and sensory grossly within normal limits. Five out of 5 muscle strength in all muscle groups. Normal speech. 1-Sickle cell pain crisis: Supportive care with IV fluid hydration, pain management, multivitamin 1 tablet by mouth daily consult cyber security specialist. 2-Anemia, Hemoglobin 4.5 due to sickle cell disease, related to menstrual cycle , Transfuse 2 units packed red blood cell and monitor H&H 3. UTI on Rocephin, DVT prophylaxis:SCDs Code Status Full code Discussed Condition With Patient Code Status Full Code Medications and IVs Current Medications Medications (Trade) Dose Ordered Sig/Marielle Route Start Time Stop Time Status Last Admin (Folate) 1 mg DAILY PO 08/12/16 09:00 08/13/16 07:50 Diphenhydramine HCl 25 mg 25 mg Q4H PRN IV PUSH 08/12/16 07:00 08/13/16 07:47 (NS 1000 ml Inj) 1,000 ml @ 150 mls/hr Q6H40M IV 08/12/16 08:00 08/13/16 07:00 (NS Flush) 2 ml UNSCH PRN IV FLUSH 08/12/16 07:00 (NS Flush) 2 ml BID IV FLUSH 08/12/16 09:00 08/12/16 08:22 (Zofran Inj) 4 mg Q6H PRN IVP 08/12/16 07:00 (Dulcolax Supp) 10 mg DAILY PRN RECTAL 08/12/16 07:00 (Tylenol) 650 mg Q6H PRN PO 08/12/16 07:00 (Dilaudid Pf Inj) 1 mg Q2H PRN IV 08/12/16 07:00 08/13/16 08:16 (Dilaudid Pf Inj) 2 mg Q3H PRN IV 08/12/16 07:00 08/12/16 11:30 Multivitamins 1 tab 1 tab DAILY PO 08/12/16 09:00 08/13/16 07:50 (Rocephin Inj/NS Inj) 100 ml @ 200 mls/hr Q24H IV 08/13/16 08:00 08/13/16 07:53 A/P Assessment and Plan 1-Sickle cell pain crisis: Supportive care with IV fluid hydration, pain management, multivitamin 1 tablet by mouth daily consult Hematology performed by Doctor Chris Martinez appreciated following recommendations to continue IV fluids blood transfusion and no chelation therapy . 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 Leukemoid reaction trend back to normal. 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 2-Anemia, Hemoglobin 4.5 due to sickle cell disease, related to menstrual cycle , Transfuse 2 units PRBCs Hemoglobin 9.6 today. 3. UTI on Rocephin, DVT prophylaxis:SCDs Code Status Full code Discussed Condition With Patient and Nurse Mr. Mathur present at all times while I was in the room. Code Status Full Code Discharge Planning Expected by tomorrow. Aldo Fletcher MD Aug 13, 2016 09:01
--- NOTE | 2016-08-13 09:34 | MB ---
cc: SILVESTRE FITZPATRICK M.D. DATE OF CONSULTATION 08/13/[address] Ciro Tierney REASON FOR CONSULTATION Hematology consult to render opinion regarding patient admitted with sickle-cell crisis. HISTORY OF PRESENT ILLNESS The patient is a 30-year-old female with a history of sickle-cell disease and frequent hospital visits for pain crisis. She presented to the hospital complaining of back pain, her usual chest pain and bilateral leg pain. She stated that she started menstruating two days ago and it was irregular. She did not feel well and has increased weakness. When she presented to the hospital, her hemoglobin was found to be 4.5. She was given two units of packed red blood cell. When I saw this morning, she is feeling better. She denies any chest pressure or shortness of breath or cough. She has no nausea, vomiting or diarrhea. She denies any significant abdominal pain. Denies any dysuria or hematuria. PAST MEDICAL HISTORY 1. Sickle-cell disease and frequent pain crisis. 2. Chronic back pain 3. Depression 4. Hemosiderosis PAST SURGICAL HISTORY 1. Cholecystectomy 2. Tonsillectomy 3. Tubal ligation 4. Port placement FAMILY HISTORY Sister has sickle-cell disease. SOCIAL HISTORY Denies tobacco or alcohol use. ALLERGIES MORPHINE CURRENT MEDICATIONS 1. Ceftriaxone 2. Folic acid 3. Multivitamin 4. Dilaudid p.r.n. REVIEW OF SYSTEMS CONSTITUTIONAL: Denies any fever or chills, night sweats, weight loss. EYES: Denies any blurry vision or double vision. ENT: No mouth sores or voice changes. CARDIOVASCULAR: Denies chest pressure or palpitations. RESPIRATORY: Denies significant shortness of breath or cough. GI: No nausea, vomiting, diarrhea, or abdominal pain. : No dysuria or hematuria. She just started her menstrual period. MUSCULOSKELETAL: Chronic back pain. HEMATOLOGY: As above. ENDOCRINE: Negative. DERMATOLOGY: Negative. PSYCHIATRIC: Negative. NEUROLOGIC: Negative. PHYSICAL EXAMINATION VITAL SIGNS: Temperature 97.5, blood pressure 98/50, O2 saturation 94% room air. GENERAL: She is alert and oriented x3 in no acute distress. HEENT: Atraumatic, normocephalic. Pupils equal, round and reactive to light. Extraocular muscle intact. No sclerae icterus. Oropharynx dry mucosa. No lesion, thrush or mucositis. NECK: No thyromegaly. No palpable masses. LYMPHATICS: No palpable cervical, clavicular, axillary or inguinal lymph nodes. CARDIOVASCULAR: Regular S1-S2. No murmur. LUNGS: Clear to auscultation without wheezing or rhonchi. ABDOMEN: Soft and nontender. Could not palpate liver or spleen. EXTREMITIES: No cyanosis, clubbing or edema. No calf tenderness. BACK: No significant tenderness. SKIN: No rash or petechiae. NEUROLOGIC: Exam nonfocal. LABORATORY DATA Reviewed ASSESSMENT 1. Sickle-cell disease admitted with pain crisis. She has chronic back pain, but over last few days she has increased back pain, her usual chest pain and bilateral leg pain. She has frequent visits to the emergency room. Her recent workup showed hemoglobin-S around 81% with hemoglobin-F of 3.6%. She was noncompliant with taking hydroxyurea and has not been taking it for a while. She is taking her folic acid. At this time, she presented with a hemoglobin of 4.5. When I saw her this morning, she had received two units of packed red blood cells transfusion and hemoglobin is up to 9.6. I suspect that the hemoglobin of 4.5 is likely not accurate. Her bilirubin is quite stable at 2. No significant hemolysis noted at this time. She did have a menstrual bleed, but stated it was regular. 2. 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 She is currently not on chelation therapy. 3. Leukocytosis due to leukemoid reaction. White blood cell count has trended back down to normal. 4. 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 RECOMMENDATIONS 1. Continue supportive care with IV fluid hydration, oxygen supplement and pain management. 2. Monitor CBC. 3. Continue Rocephin for UTI. The patient has recently been discharged from [facility]. She will need to establish care with another assembly line brazer once she is discharged from the hospital. Thank you Dr. Tanner for asking us see this patient. MD GIOVANA Talavera/MAYCO /9:07 AM /9:19 AM CARLA
[2016-08-13] MEDS: SODIUM CHLORIDE 0.9% FLUSH 10 ML FLUSH IV FLUSH SCH (20:34)
[2016-08-14] MEDS: SODIUM CHLOR 0.9% 1000 ML INJ 1,000 ML IV SCH ×4 (00:26→20:08)
[2016-08-14] MEDS: HYDROmorphone HCL PF 1 MG/ML VIAL IV PRN ×4 (00:26→06:40)
[2016-08-14 00:54] VITALS: BP 100/63; PULSE 71; RESP 17; TEMP 98.4; O2SAT 94
[2016-08-14] MEDS: diphenhydrAMINE HCL 50 MG/ML VIAL IV PUSH PRN ×4 (04:53→22:34)
[2016-08-14 05:40] VITALS: BP 120/74; PULSE 73; RESP 17; TEMP 98.2; O2SAT 96
[2016-08-14 08:00] VITALS: BP 135/76; PULSE 70; RESP 17; TEMP 97.4; O2SAT 100
[2016-08-14] MEDS: MULTIVITAMIN TAB PO SCH (08:56)
[2016-08-14] MEDS: FOLIC ACID 1 MG TAB PO SCH (08:56)
[2016-08-14] MEDS: HYDROmorphone HCL PF 2 MG/ML VIAL IV PRN ×6 (08:57→23:10)
[2016-08-14] MEDS: cefTRIAXone INJ 1,000 MG in SODIUM CHLORIDE 0.9% INJ 100 ML IV SCH (08:57)
[2016-08-14] MEDS: SODIUM CHLORIDE 0.9% FLUSH 10 ML FLUSH IV FLUSH SCH ×2 (08:58→20:08)
[2016-08-14 10:00] VITALS: BP 115/72; PULSE 76; RESP 20; TEMP 98.2; O2SAT 95
--- NOTE | 2016-08-14 11:57 | PD.ONC.PN ---
Subjective Subjective Remarks Afebrile overnight. Patient reports still having pain in her legs and arms. She denies chest pain. Objective Data Date Time Temp Pulse Resp B/P Pulse Ox O2 Delivery O2 Flow Rate FiO2 08/14/16 08:00 97.4 70 17 135/76 100 08/14/16 05:40 98.2 73 17 120/74 96 08/14/16 00:54 98.4 71 17 100/63 94 08/13/16 21:00 64 08/13/16 20:20 97.2 73 17 101/65 94 08/13/16 16:00 98.5 72 20 111/73 92 08/13/16 12:03 98.1 65 20 104/64 93 08/14/16 08/14/16 08/14/16 07:00 15:00 23:00 Intake Total 1832 ml Balance 1832 ml Result Diagram: 08/13/16 0520 08/13/16 0520 Culture Results Microbiology Date/Time Procedure Status Source Growth 08/12/16 05:49 Urine Culture - Final Complete Urine Clean Catch Escherichia Coli Administered Medications Medications (Trade) Dose Ordered Sig/Marielle Route PRN Reason Start Time Stop Time Status Last Admin Dose Admin Folic Acid 1 mg 1 mg DAILY PO 08/12/16 09:00 08/14/16 08:56 Sodium Chloride (NS 1000 ml Inj) 1,000 ml @ 150 mls/hr Q6H40M IV 08/12/16 08:00 08/14/16 06:40 Sodium Chloride (NS Flush) 2 ml BID IV FLUSH 08/12/16 09:00 08/14/16 08:58 Hydromorphone HCl (Dilaudid Pf Inj) 1 mg Q2H PRN IV Pain 3-5 08/12/16 07:00 08/14/16 06:40 Hydromorphone HCl (Dilaudid Pf Inj) 2 mg Q3H PRN IV Pain 6-10 08/12/16 07:00 08/14/16 11:03 Multivitamins 1 tab 1 tab DAILY PO 08/12/16 09:00 08/14/16 08:56 Ceftriaxone Sodium/Sodium Chloride (Rocephin Inj/NS Inj) 100 ml @ 200 mls/hr Q24H IV 08/13/16 08:00 08/14/16 08:57 Diphenhydramine HCl (Benadryl Inj) 25 mg Q6H PRN IV PUSH ITCHING 08/13/16 18:30 08/14/16 11:03 Objective Remarks GENERAL: Young woman, sitting up in bed in nad. SKIN: Warm and dry. HEAD: Normocephalic. EYES: No injection or drainage. NECK: Supple, trachea midline. CARDIOVASCULAR: Regular rate and rhythm RESPIRATORY: Breath sounds equal bilaterally. No accessory muscle use. GASTROINTESTINAL: Abdomen soft, non-tender, nondistended. EXTREMITIES: No cyanosi NEUROLOGICAL: No obvious focal deficit. Awake, alert, and oriented x3. Assessment/Plan Problem List: (1) Sickle cell pain crisis Status: Acute Plan: --continue supportive care with IVF and pain management --recent workup showed hemoglobin-S around 81% with hemoglobin-F of 3.6%. --noncompliant with taking hydroxyurea and has not been taking it for a while. (2) UTI (urinary tract infection) Status: Acute Plan: --on abx Assessment 30y/o female with sickle cell disease admitted with pain crisis. Plan 1. continue IVF and pain management 2. monitor CBC 3. ok for discharge when pain controlled. 4. will need to find new lathe winder to follow up with. She was discharged from our clinic prior to this admission. Attending Statement The exam, history, and the medical decision-making described in the above note were completed with the assistance of the mid-level provider. I reviewed and agree with the findings presented. I attest that I had a [id number] encounter with the patient on the same day, and personally performed and documented my assessment and findings in the medical record. Pain in low back and legs improving. Hgb stable. Continue supportive care. Continue abx for UTI. Can be d/c once pain controlled. Ledy Hogan Aug 14, 2016 11:57 Juan Perez MD Aug 14, 2016 13:16
--- NOTE | 2016-08-14 12:17 | HHI.PR ---
Subjective Remarks This is a pleasant 30 y/o Female with Sickle Cell disease, multiple admissions due to Sickle Cell crisis with Anemia, chronic Pain syndrome/Narcotic dependence/Narcotic Seeking Behavior, followed by applied behavior science specialist doctor Chris Velasquez. the patient was seen already some days ago in ER, reported back pain, chest and bilateral leg pain, discharged on Lortab but not helping, currently on her Menstrual cycle, heavier than usual, she was on control pills last year was discontinued related to Headaches, reported that her desktop support specialist recommended to transfuse as needed for Hb less than 6. 08/13 Seen in her bedroom at all times with Nurse Jocelyn Kevan, discussed about the use of Benadryl and Dilaudid given together. 08/14 Recommended again to the nurse Mr Wharton to give Benadryl 30 minutes before Dilaudid to avoid Synergistic effect with Dilaudid this is given not for Synergy is given to avoid itchy sensation due to Narcotic, denies nausea, vomit or diarrhea. Objective Vital Signs Date Time Temp Pulse Resp B/P Pulse Ox O2 Delivery O2 Flow Rate FiO2 08/14/16 08:00 97.4 70 17 135/76 100 08/14/16 05:40 98.2 73 17 120/74 96 08/14/16 00:54 98.4 71 17 100/63 94 08/13/16 21:00 64 08/13/16 20:20 97.2 73 17 101/65 94 08/13/16 16:00 98.5 72 20 111/73 92 I/O 08/13/16 08/13/16 08/13/16 08/14/16 08/14/16 08/14/16 07:00 15:00 23:00 07:00 15:00 23:00 Intake Total 600 ml 1832 ml Balance 600 ml 1832 ml Intake Oral 600 ml 480 ml IV Total 1352 ml # Voids 1 4 6 # Bowel Movements 2 1 Result Diagram: 08/13/1651908/13/16519 Imaging No Imaging studies. Procedures No procedures performed. Other Results Laboratory Tests Test 08/12/16 08/12/16 08/13/16 05:49 06:30 05:20 Basophils % 1 % Polychromasia 2.0 % Target Cells 1+ Reticulocyte Count 7.6 % Absolute Reticulocyte Count 112.8 MIL/L Urine Color YELLOW Urine Turbidity HAZY Urine pH 5.5 Urine Specific [place] 1.010 Urine Protein NEG mg/dL Urine Glucose (UA) NEG mg/dL Urine Ketones NEG mg/dL Urine Occult Blood NEG Urine Nitrite POS Urine Bilirubin NEG Urine Urobilinogen 2.0 MG/DL Urine Leukocyte Esterase SMALL Urine RBC 1 /hpf Urine WBC 11 /hpf Urine Squamous Epithelial 1 /hpf Cells Urine Bacteria MANY /hpf Urine Mucus FEW /lpf Microscopic Urinalysis Comment CULTURE INDICATED Blood Type B POSITIVE Antibody Screen NEGATIVE Crossmatch Leukocyte-Reduced Red Blood Cells Blood Bank Comment White Blood Count 7.9 TH/MM3 Red Blood Count 3.15 MIL/MM3 Hemoglobin 9.6 GM/DL Hematocrit 26.4 % Mean Corpuscular Volume 83.6 FL Mean Corpuscular Hemoglobin 30.3 PG Mean Corpuscular Hemoglobin 36.3 % Concent Red Cell Distribution Width 22.3 % Platelet Count 294 TH/MM3 Mean Platelet Volume 7.9 FL Neutrophils (%) (Auto) 40.6 % Lymphocytes (%) (Auto) 43.9 % Monocytes (%) (Auto) 10.2 % Eosinophils (%) (Auto) 4.2 % Basophils (%) (Auto) 1.1 % Neutrophils # (Auto) 3.2 TH/MM3 Lymphocytes # (Auto) 3.5 TH/MM3 Monocytes # (Auto) 0.8 TH/MM3 Eosinophils # (Auto) 0.3 TH/MM3 Basophils # (Auto) 0.1 TH/MM3 CBC Comment AUTO DIFF Differential Total Cells 100 Counted Neutrophils % (Manual) 45 % Band Neutrophils % 1 % Lymphocytes % 43 % Monocytes % 7 % Eosinophils % 4 % Neutrophils # (Manual) 3.6 TH/MM3 Nucleated Red Blood Cells 4 /100 WBC Differential Comment FINAL DIFF MANUAL Platelet Estimate NORMAL Platelet Morphology Comment NORMAL Sickle Cells 2+ Ovalocytes 1+ [place] Bodies PRESENT Sodium Level 141 MEQ/L Potassium Level 3.7 MEQ/L Chloride Level 109 MEQ/L Carbon Dioxide Level 22.7 MEQ/L Anion Gap 9 MEQ/L Blood Urea Nitrogen 3 MG/DL Creatinine 0.41 MG/DL Estimat Glomerular Filtration 218 ML/MIN Rate Random Glucose 84 MG/DL Calcium Level 8.1 MG/DL Total Bilirubin 2.0 MG/DL Aspartate Amino Transf 49 U/L (AST/SGOT) Alanine Aminotransferase 13 U/L (ALT/SGPT) Alkaline Phosphatase 78 U/L Total Protein 6.9 GM/DL Albumin 3.0 GM/DL Objective Remarks GENERAL: This is a well-nourished, well-developed patient, in no apparent distress. SKIN: No rashes, ecchymoses or lesions. Cool and dry. HEAD: Atraumatic. Normocephalic. No temporal or scalp tenderness. EYES: Pupils equal round and reactive. Extraocular motions intact. No scleral icterus. No injection or drainage. ENT: Nose without bleeding, purulent drainage or septal hematoma. Throat without erythema, tonsillar hypertrophy or exudate. Uvula midline. Airway patent. NECK: Trachea midline. No JVD or lymphadenopathy. Supple, nontender, no meningeal signs. CARDIOVASCULAR: Regular rate and rhythm without murmurs, gallops, or rubs. RESPIRATORY: Clear to auscultation. Breath sounds equal bilaterally. No wheezes , rales, or rhonchi. GASTROINTESTINAL: Abdomen soft, non-tender, nondistended. No hepato-splenomegaly , or palpable masses. No guarding. MUSCULOSKELETAL: Extremities without clubbing, cyanosis, or edema. No joint tenderness, effusion, or edema noted. No calf tenderness. Negative Homans sign bilaterally. NEUROLOGICAL: Awake and alert. Cranial nerves II through XII intact. Motor and sensory grossly within normal limits. Five out of 5 muscle strength in all muscle groups. Normal speech. 1-Sickle cell pain crisis: Supportive care with IV fluid hydration, pain management, multivitamin 1 tablet by mouth daily consult desktop support specialist. 2-Anemia, Hemoglobin 4.5 due to sickle cell disease, related to menstrual cycle , Transfuse 2 units packed red blood cell and monitor H&H 3. UTI on Rocephin, DVT prophylaxis:SCDs Code Status Full code Discussed Condition With Patient Code Status Full Code Medications and IVs Current Medications Medications (Trade) Dose Ordered Sig/Marielle Route Start Time Stop Time Status Last Admin Folic Acid 1 mg 1 mg DAILY PO 08/12/16 09:00 08/14/16 08:56 (NS 1000 ml Inj) 1,000 ml @ 150 mls/hr Q6H40M IV 08/12/16 08:00 08/14/16 06:40 (NS Flush) 2 ml UNSCH PRN IV FLUSH 08/12/16 07:00 (NS Flush) 2 ml BID IV FLUSH 08/12/16 09:00 08/14/16 08:58 (Zofran Inj) 4 mg Q6H PRN IVP 08/12/16 07:00 (Dulcolax Supp) 10 mg DAILY PRN RECTAL 08/12/16 07:00 (Tylenol) 650 mg Q6H PRN PO 08/12/16 07:00 (Dilaudid Pf Inj) 1 mg Q2H PRN IV 08/12/16 07:00 08/14/16 06:40 (Dilaudid Pf Inj) 2 mg Q3H PRN IV 08/12/16 07:00 08/14/16 11:03 Multivitamins 1 tab 1 tab DAILY PO 08/12/16 09:00 08/14/16 08:56 (Rocephin Inj/NS Inj) 100 ml @ 200 mls/hr Q24H IV 08/13/16 08:00 08/14/16 08:57 (Benadryl Inj) 25 mg Q6H PRN IV PUSH 08/13/16 18:30 08/14/16 11:03 A/P Assessment and Plan 1-Sickle cell pain crisis: Supportive care with IV fluid hydration, pain management, multivitamin 1 tablet by mouth daily consult Hematology performed by Doctor Chris Martinez appreciated following recommendations to continue IV fluids blood transfusion and no chelation therapy . 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 Leukemoid reaction trend back to normal. 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 2-Anemia, Hemoglobin 4.5 due to sickle cell disease, related to menstrual cycle , Transfuse 2 units PRBCs Hemoglobin 9.6 today. stable desktop support specialist following. 3. UTI on Rocephin, DVT prophylaxis:SCDs Code Status Full code Discussed Condition With Patient and Nurse Mr. Wharton in the room at all times while I was in the room. all questions answered to the best of my abilities. Code Status Full Code Discharge Planning Expected by tomorrow. Aldo Fletcher MD Aug 14, 2016 12:16
[2016-08-14 12:52] LABS: AUTOMATED NEUTROPHIL # 2.9 TH/MM3 (1.8-7.7); BASOPHIL % 0.7 % (0.0-2.0); EOSINOPHIL # 0.7 TH/MM3 (0-0.4); EOSINOPHIL % 11.2 % (0.0-4.0); LYMPH % 33.5 % (9.0-44.0); LYMPHOCYTE # 2.1 TH/MM3 (1.0-4.8); MEAN CELL VOLUME 85.5 FL (80.0-100.0); MEAN CORPUSCULAR HEMOGLOBIN 29.6 PG (27.0-34.0); MEAN CORPUSCULAR HGB CONC 34.6 % (32.0-36.0); MONO % 9.3 % (0.0-8.0); NEUT % 45.3 % (16.0-70.0); PLATELET COUNT 263 TH/MM3 (150-450); RED CELL DISTRIBUTION WIDTH 22.1 % (11.6-17.2); WHITE BLOOD COUNT 6.4 TH/MM3 (4.0-11.0)
[2016-08-14 12:55] LABS: HEMO FLAGS AUTO DIFF
[2016-08-14 13:30] LABS: HOWELL-JOLLY BODIES PRESENT (NONE SEEN); KERATOCYTES OCC (NORMAL); PLATELET ESTIMATE SMEAR NORMAL (NORMAL); PLATELET MORPHOLOGY NORMAL (NORMAL); SCAN/DIFF AUTO DIFF CONFIRMED
[2016-08-14 13:31] LABS: SICKLE CELLS 2+ (NORMAL)
[2016-08-14 16:00] VITALS: BP 124/76; PULSE 69; RESP 18; TEMP 98; O2SAT 96
[2016-08-14 20:00] VITALS: BP 119/69; PULSE 77; RESP 18; TEMP 98.7; O2SAT 97
[2016-08-15] MEDS: HYDROmorphone HCL PF 2 MG/ML VIAL IV PRN ×8 (02:05→23:05)
[2016-08-15] MEDS: SODIUM CHLOR 0.9% 1000 ML INJ 1,000 ML IV SCH ×4 (02:40→20:17)
[2016-08-15 04:00] VITALS: BP 118/72; PULSE 65; RESP 18; TEMP 97.4; O2SAT 95
[2016-08-15] MEDS: diphenhydrAMINE HCL 50 MG/ML VIAL IV PUSH PRN ×4 (04:36→22:37)
[2016-08-15] MEDS: SODIUM CHLORIDE 0.9% FLUSH 10 ML FLUSH IV FLUSH SCH ×2 (08:21→20:14)
[2016-08-15] MEDS: cefTRIAXone INJ 1,000 MG in SODIUM CHLORIDE 0.9% INJ 100 ML IV SCH (08:21)
[2016-08-15] MEDS: MULTIVITAMIN TAB PO SCH (08:22)
[2016-08-15] MEDS: FOLIC ACID 1 MG TAB PO SCH (08:22)
[2016-08-15 08:29] VITALS: BP 121/73; PULSE 76; RESP 20; TEMP 97.3; O2SAT 97
--- NOTE | 2016-08-15 09:05 | PD.ONC.PN ---
Subjective Subjective Remarks Pain improving. No CP/SOB. Objective Data Date Time Temp Pulse Resp B/P Pulse Ox O2 Delivery O2 Flow Rate FiO2 08/15/16 08:29 97.3 76 20 121/73 97 08/15/16 04:00 97.4 65 18 118/72 95 08/14/16 20:00 98.7 77 18 119/69 97 08/14/16 16:00 98.0 69 18 124/76 96 08/14/16 10:00 98.2 76 20 115/72 95 08/15/16 08/15/16 08/15/16 07:00 15:00 23:00 Intake Total 1725 ml Balance 1725 ml Result Diagram: 08/14/16 1242 08/13/16 0520 Laboratory Results Laboratory Tests Test 08/14/16 12:42 White Blood Count 6.4 TH/MM3 Red Blood Count 2.80 MIL/MM3 Hemoglobin 8.3 GM/DL Hematocrit 24.0 % Mean Corpuscular Volume 85.5 FL Mean Corpuscular Hemoglobin 29.6 PG Mean Corpuscular Hemoglobin 34.6 % Concent Red Cell Distribution Width 22.1 % Platelet Count 263 TH/MM3 Mean Platelet Volume 7.6 FL Neutrophils (%) (Auto) 45.3 % Lymphocytes (%) (Auto) 33.5 % Monocytes (%) (Auto) 9.3 % Eosinophils (%) (Auto) 11.2 % Basophils (%) (Auto) 0.7 % Neutrophils # (Auto) 2.9 TH/MM3 Lymphocytes # (Auto) 2.1 TH/MM3 Monocytes # (Auto) 0.6 TH/MM3 Eosinophils # (Auto) 0.7 TH/MM3 Basophils # (Auto) 0.0 TH/MM3 CBC Comment AUTO DIFF Differential Comment AUTO DIFF CONFIRMED Platelet Estimate NORMAL Platelet Morphology Comment NORMAL Sickle Cells 2+ [place] Bodies PRESENT Keratocytes OCC Administered Medications Medications (Trade) Dose Ordered Sig/Marielle Route PRN Reason Start Time Stop Time Status Last Admin Dose Admin Folic Acid 1 mg 1 mg DAILY PO 08/12/16 09:00 08/15/16 08:22 Sodium Chloride (NS 1000 ml Inj) 1,000 ml @ 150 mls/hr Q6H40M IV 08/12/16 08:00 08/15/16 08:22 Sodium Chloride (NS Flush) 2 ml BID IV FLUSH 08/12/16 09:00 08/14/16 08:58 Hydromorphone HCl (Dilaudid Pf Inj) 1 mg Q2H PRN IV Pain 3-5 08/12/16 07:00 08/14/16 06:40 Hydromorphone HCl (Dilaudid Pf Inj) 2 mg Q3H PRN IV Pain 6-10 08/12/16 07:00 08/15/16 08:22 Multivitamins 1 tab 1 tab DAILY PO 08/12/16 09:00 08/15/16 08:22 Ceftriaxone Sodium/Sodium Chloride (Rocephin Inj/NS Inj) 100 ml @ 200 mls/hr Q24H IV 08/13/16 08:00 08/15/16 08:21 Diphenhydramine HCl (Benadryl Inj) 25 mg Q6H PRN IV PUSH ITCHING 08/13/16 18:30 08/15/16 04:36 Objective Remarks GENERAL: Well-nourished, well-developed patient. SKIN: Warm and dry. HEAD: Normocephalic. EYES: No scleral icterus. No injection or drainage. NECK: Supple, trachea midline. No JVD or lymphadenopathy. LYMPHATIC: No adenopathy. CARDIOVASCULAR: Regular rate and rhythm without murmurs. RESPIRATORY: Breath sounds equal bilaterally. No accessory muscle use. GASTROINTESTINAL: Abdomen soft, non-tender, nondistended. EXTREMITIES: No cyanosis, or edema. MUSCULOSKELETAL: Adequate muscle tone. NEUROLOGICAL: No obvious focal deficit. Awake, alert, and oriented x3. PSYCHIATRIC: Appropriate mood and affect; insight and judgment normal. Assessment/Plan Problem List: (1) Sickle cell pain crisis Status: Acute Plan: --Improved. --continue supportive care with IVF and pain management --recent workup showed hemoglobin-S around 81% with hemoglobin-F of 3.6%. --noncompliant with taking hydroxyurea and has not been taking it for a while. (2) UTI (urinary tract infection) Status: Acute Plan: --on abx Assessment 30y/o female with sickle cell disease admitted with pain crisis. Plan 1. continue IVF and pain management 2. monitor CBC while in patient. 3. Can be d/c when pain controlled. 4. will need to find new atmospheric physicist to follow up with. She was discharged from our clinic prior to this admission. Juan Perez MD Aug 15, 2016 09:05
[2016-08-15] MEDS ORDERED: HYDROmorphone HCL PF 1 MG/ML VIAL IV PRN (13:52)
--- NOTE | 2016-08-15 13:54 | HHI.PR ---
Subjective Remarks Follow-up sickle cell pain crisis. Still reporting pain in her back and knees, but states that the pain is improving. Does not feel ready to go home yet. Objective Vitals Vital Signs Date Time Temp Pulse Resp B/P Pulse Ox O2 Delivery O2 Flow Rate FiO2 08/15/16 08:29 97.3 76 20 121/73 97 08/15/16 04:00 97.4 65 18 118/72 95 08/14/16 20:00 98.7 77 18 119/69 97 08/14/16 16:00 98.0 69 18 124/76 96 I/O 08/14/16 08/14/16 08/14/16 08/15/16 08/15/16 08/15/16 07:00 15:00 23:00 07:00 15:00 23:00 Intake Total 1832 ml 650 ml 1725 ml Balance 1832 ml 650 ml 1725 ml Intake Oral 480 ml 650 ml IV Total 1352 ml 1725 ml # Voids 6 4 4 # Bowel Movements 1 1 Result Diagram: 08/14/16 1242 08/13/16 0520 Objective Remarks Patient examined in presence of the nurse. General: No acute distress. Heart: Regular rate and rhythm. No murmur. Lungs: Clear to auscultation bilaterally. No wheezes, rales, or rhonchi. Breathing is nonlabored. Abdomen: Soft, nontender, nondistended. Extremities: No lower extremity edema. Psych: Alert and oriented. Procedures None Urinary Catheter: No Vascular Central Line Catheter: No A/P Problem List: (1) Sickle cell pain crisis ICD Code: D57.00 Status: Acute (2) Anemia ICD Code: D64.9 Status: Acute Assessment and Plan 1. Sickle cell pain crisis: Continue supportive care with fluids, pain control. Appreciate hematology recommendations. 2. Anemia: S/P transfusion of 2 units PRBCs this hospitalization. H/H improved. 3. UTI: Continue antibiotics. Discharge Planning Discharge home when pain is controlled. Problem Qualifiers (1) Anemia: Qualified Code: D64.9 - Anemia, unspecified type Dilan Magallanes MD Aug 15, 2016 13:53
[2016-08-15 20:00] VITALS: BP 100/55; PULSE 80; RESP 20; TEMP 97; O2SAT 98
[2016-08-16] VITALS: BP 115/72; PULSE 65; RESP 20; TEMP 97.2; O2SAT 98
[2016-08-16] MEDS: HYDROmorphone HCL PF 2 MG/ML VIAL IV PRN ×6 (02:00→17:02)
[2016-08-16] MEDS: diphenhydrAMINE HCL 50 MG/ML VIAL IV PUSH PRN ×3 (04:26→16:56)
[2016-08-16 04:29] VITALS: BP 147/92; PULSE 64; RESP 18; RESP 48; TEMP 97.2; O2SAT 100
[2016-08-16] MEDS: SODIUM CHLOR 0.9% 1000 ML INJ 1,000 ML IV SCH ×3 (05:04→18:40)
[2016-08-16 08:00] VITALS: BP 125/85; PULSE 64; RESP 20; TEMP 97.8; O2SAT 95
[2016-08-16] MEDS: MULTIVITAMIN TAB PO SCH (08:18)
[2016-08-16] MEDS: SODIUM CHLORIDE 0.9% FLUSH 10 ML FLUSH IV FLUSH SCH (08:18)
[2016-08-16] MEDS: cefTRIAXone INJ 1,000 MG in SODIUM CHLORIDE 0.9% INJ 100 ML IV SCH (08:18)
[2016-08-16] MEDS: FOLIC ACID 1 MG TAB PO SCH (08:18)
[2016-08-16] MEDS ORDERED: FOLI1TAB4 PO (11:50)
[2016-08-16] MEDS ORDERED: HYDR-3580 PO (11:50)
--- NOTE | 2016-08-16 11:51 | HHI.DCPOC ---
Discharge Care Plan Diagnosis: (1) Anemia (2) Sickle cell pain crisis (3) UTI (urinary tract infection) Goals to Promote Your Health * To prevent worsening of your condition and complications * To maintain your health at the optimal level Directions to Meet Your Goals Take your medications as prescribed Follow your dietary instruction Follow activity as directed Keep your appointments as scheduled Take your immunizations and boosters as scheduled If your symptoms worsen call your PCP, if no PCP go to Urgent Care Center or Emergency Room Smoking is Dangerous to Your Health. Avoid second hand smoke Call the 24-hour hour crisis hotline for domestic abuse at Dilan Magallanes MD Aug 16, 2016 11:51
--- NOTE | 2016-08-16 11:54 | HHI.DS ---
Discharge Summary Admission Date Aug 12, 2016 at 06:52 Discharge Date: Aug 16, 2016 Admitting Diagnosis Sickle cell pain crisis, worsening anemia (1) Sickle cell pain crisis ICD Code: D57.00 (2) Anemia ICD Code: D64.9 Procedures None Brief History - From Admission This is a pleasant 30 y/o Female with Sickle Cell disease, multiple admissions due to Sickle Cell crisis with Anemia, chronic Pain syndrome/Narcotic dependence/Narcotic Seeking Behavior, followed by customer relations specialist doctor Chris Velasquez. the patient was seen already some days ago in ER, reported back pain, chest and bilateral leg pain, discharged on Lortab but not helping, currently on her Menstrual cycle, heavier than usual, she was on control pills last year was discontinued related to Headaches, reported that her culinary specialist recommended to transfuse as needed for Hb less than 6. She denies having any cough, congestion, fever, chills, or shortness of breath. She denies having any dysuria, hematuria, urinary urgency or frequency. The patient denies any neck pain,abdominal pain, vomiting , diarrhea, or neurologic symptoms. Seen in her bedroom no new symptoms stable CBC/BMP: 08/14/16 1242 08/13/16 0520 Significant Findings Laboratory Tests Test 08/14/16 12:42 Red Blood Count 2.80 MIL/MM3 (4.00-5.30) Hemoglobin 8.3 GM/DL (11.6-15.3) Hematocrit 24.0 % (35.0-46.0) Red Cell Distribution Width 22.1 % (11.6-17.2) Monocytes (%) (Auto) 9.3 % (0.0-8.0) Eosinophils (%) (Auto) 11.2 % (0.0-4.0) Eosinophils # (Auto) 0.7 TH/MM3 (0-0.4) Sickle Cells 2+ (NORMAL) Keratocytes OCC (NORMAL) PE at Discharge Patient examined in presence of the CHART READER. General: No acute distress. Heart: Regular rate and rhythm. No murmur. Lungs: Clear to auscultation bilaterally. No wheezes, rales, or rhonchi. Breathing is nonlabored. Abdomen: Soft, nontender, nondistended. Extremities: No lower extremity edema. Psych: Alert and oriented. Pt update on day of discharge The patient states that she feels better today. She is hoping she can go home this afternoon. Still having pain in her back and knees, but is less severe. Hospital Course The patient was admitted for management of sickle cell pain crisis with severe anemia. She received transfusion of 2 units PRBCs. Hematology was consulted. Patient was treated with Rocephin for urinary tract infection. Her pain improved and the patient felt that she was ready to go home with oral pain medication. Pt Condition on Discharge: Stable Discharge Disposition: Discharge Home Discharge Time: > 30 minutes Discharge Instructions DIET: Follow Instructions for: As Tolerated, No Restrictions Activities you can perform: Regular-No Restrictions Follow up Referrals: PCP Follow-up - 1 Week New Medications: Hydrocodone-Acetaminophen (Hydrocodone-Acetaminophen) 7.5-325 mg Tab 1 TAB PO Q6H PRN PAIN #30 Ref 0 TAB Folic Acid (Folate) 1 Mg Tab 1 MG PO DAILY Supplement #30 Ref 0 TAB Continued Medications: Multiple Vitamin (Thera/Beta-Carotene) 1 Tab Tab 1 TAB PO DAILY Immunosuppression #30 TAB Dilan Magallanes MD Aug 16, 2016 11:54
[2016-08-16 12:00] VITALS: BP 124/85; PULSE 86; RESP 20; TEMP 97.4; O2SAT 98
[2016-08-26] MEDS ORDERED: METH5TAB PO (11:49)
== END 2016-08-16 19:47 | disposition home or self-care (01) | DRG 812 ==
LOC: NEPC 03:31 → NEDA 06:52 → N05A 09:50
PROVIDERS: ADMIT Family Medicine; ATTEND Family Medicine
PROC: 30233N1 Transfusion of Nonautologous Red Blood Cells into Peripheral Vein, Percutaneous Approach (ICD-10-PCS; principal; 2016-08-12)
DX: D57.00 Hb-SS disease with crisis, unspecified (principal); F11.20 Opioid dependence, uncomplicated; N39.0 Urinary tract infection, site not specified; G47.00 Insomnia, unspecified; M54.9 Dorsalgia, unspecified; E83.19 Other disorders of iron metabolism; D72.823 Leukemoid reaction; G89.4 Chronic pain syndrome; B96.20 Unspecified Escherichia coli [E. coli] as the cause of diseases classified elsewhere; F32.9 Major depressive disorder, single episode, unspecified; Z86.14 Personal history of Methicillin resistant Staphylococcus aureus infection; Z88.5 Allergy status to narcotic agent; Z91.14 Patient's other noncompliance with medication regimen
CPT/HCPCS: 36430; 71010; 80048; 80053; 81001; 85007; 85025; 85027; 85044; 86850; 86900; 86901; 86920; 87077; 87086; 87186; 96361; 96374; 96375; 96376; J0696; J1170; J1200; J1642; J2405; J7030; P9016

== ENCOUNTER 2016-08-22 01:47 | Emergency (ER) | payer OTHER ==
[~2016-08-22] VITALS: Ht 152.4 cm; Wt 59.0 kg
[~2016-08-22 01:47] MED LIST changes: +FOLI1TAB4 PO; +HYDR-3580 PO
[2016-08-22 01:49] VITALS: BP 110/81; PULSE 93; RESP 16; TEMP 99; O2SAT 97
[2016-08-22 02:34] VITALS: BP 116/70; PULSE 83; RESP 18; O2SAT 100
[2016-08-22] MEDS ORDERED: SODIUM CHLOR 0.9% 1000 ML INJ 1,000 ML IV ONE (02:41)
[2016-08-22 02:44] LABS: MEAN CORPUSCULAR HGB CONC 36.3 % (32.0-36.0)
--- NOTE | 2016-08-22 02:44 | PD ---
HPI Chief Complaint: Sickle Cell Time Seen by Provider: 02:37 Travel History International Travel<30 days: No Contact w/Intl Traveler<30days: No Traveled to known affect area: No History of Present Illness HPI 30-year-old female with history of sickle cell disease, well-known to me, here for evaluation of sickle cell pain. The patient reports that she is on her menstrual period which usually triggers for her sickle cell pain crisis. She is complaining of chest, abdomen, back, and knee pains. She states that the pain feels like someone is kicking her in these areas. She reports that this is usual for her pain crises. No fevers. No dyspnea. PFSH Past Medical History Hx Anticoagulant Therapy: No Anemia: Yes (WITH MULTIPLE BLOOD TRANSFUSIONS) Arthritis: No Asthma: No Autoimmune Disease: No Blood Disorders: No Anxiety: No Depression: No Cancer: No Cardiovascular Problems: No Chemotherapy: No Chest Pain: Yes Congestive Heart Failure: No COPD: No Cerebrovascular Accident: No Diabetes: No Diminished Hearing: No Endocrine: No Gastrointestinal Disorders: Yes (GALLSTONES) GERD: No Genitourinary: No Headaches: Yes Hiatal Hernia: No Immune Disorder: Yes (SICKLE CELL) Implanted Vascular Access Dvce: Yes (RIGHT CHEST INFUSAPORT) Insomnia: Yes Kidney Stones: No Musculoskeletal: No Neurologic: No Psychiatric: No Reproductive: No Respiratory: No Immunizations Current: Yes Migraines: No Pneumonia: Yes Radiation Therapy: No Renal Failure: No Seizures: No Sickle Cell Disease: Yes Thyroid Disease: No Ulcer: No Tetanus Vaccination: < 5 Years Influenza Vaccination: Yes PNEUMOCCOCAL Vaccine (Year): 2 ?: Not : 2 Para: 1 Miscarriage: 1 : 0 Tubal Ligation: Yes (IN 2007) Past Surgical History Abdominal Surgery: Yes AICD: No Arteriovenous Shunt: No Body Medical Devices: MEDPORT Cardiac Surgery: No Section: Yes Cholecystectomy: Yes (1994) Ear Surgery: No Endocrine Surgery: No Eye Surgery: No Genitourinary Surgery: No Gynecologic Surgery: Yes Hysterectomy: Yes (TUBAL) Insulin Pump: No Joint Replacement: No Oral Surgery: Yes Pacemaker: No Thoracic Surgery: Yes (CHEST PORT ) Tonsillectomy: Yes Other Surgery: Yes (RIGHT CHEST INFUSAPORT ) Social History Alcohol Use: No Tobacco Use: No Substance Use: No Allergies-Medications (Allergen,Severity, Reaction): Coded Allergies: Morphine (Verified Allergy, Severe, RASH, 08/22/16) *MDRO Multi-Drug Resistant Organism (Verified Adverse Reaction, Unknown, MRSA, 08/22/16) MRSA (blood) - 12/18/2004 Reported Meds & Prescriptions Reported Meds & Active Scripts Active Hydrocodone-Acetaminophen 7.5-325 mg Tab 1 Tab PO Q6H PRN Folate (Folic Acid) 1 Mg Tab 1 Mg PO DAILY Review of Systems Except as stated in HPI: all other systems reviewed are Neg Physical Exam Narrative GENERAL: Well-developed, well-nourished, overall very well-appearing, on cell phone, comfortable, no acute distress. SKIN: Focused skin assessment warm/dry. HEAD: Atraumatic. Normocephalic. EYES: Pupils equal and round. Bilateral scleral icterus. No injection or drainage. ENT: Mucous membranes pink and moist. NECK: Trachea midline. No JVD. CARDIOVASCULAR: Regular rate and rhythm. RESPIRATORY: No accessory muscle use. Clear to auscultation. Breath sounds equal bilaterally. GASTROINTESTINAL: Abdomen soft, non-tender, nondistended. MUSCULOSKELETAL: No obvious deformities. No clubbing. No cyanosis. No edema. No dactylitis. NEUROLOGICAL: Awake and alert. No obvious cranial nerve deficits. Motor grossly within normal limits. Normal speech. PSYCHIATRIC: Appropriate mood and affect; insight and judgment normal. Data Data Last Documented VS Vital Signs Date Time Temp Pulse Resp B/P Pulse Ox O2 Delivery O2 Flow Rate FiO2 08/22/16 02:34 83 18 116/70 100 Nasal Cannula 1 08/22/16 01:49 99.0 Orders Complete Blood Count With Diff (08/22/16 02:41) Comprehensive Metabolic Panel (08/22/16 02:41) Retic Count (08/22/16 02:41) Chest, Single Ap (08/22/16 02:41) Ecg Monitoring (08/22/16 02:41) Iv Access Insert/Monitor (08/22/16 02:41) Oximetry (08/22/16 02:41) Sodium Chloride 0.9% Flush (Ns Flush) (08/22/16 02:45) Sodium Chlor 0.9% 1000 Ml Inj (Ns 1000 M (08/22/16 02:41) Hydromorphone Pf Inj (Dilaudid Pf Inj) (08/22/16 02:45) Diphenhydramine Inj (Benadryl Inj) (08/22/16 02:45) Beta Hcg (Quant/Titer) (08/22/16 02:41) Labs Laboratory Tests Test 08/22/16 03:00 White Blood Count 9.1 TH/MM3 Red Blood Count 2.95 MIL/MM3 Hemoglobin 9.0 GM/DL Hematocrit 24.8 % Mean Corpuscular Volume 84.0 FL Mean Corpuscular Hemoglobin 30.5 PG Mean Corpuscular Hemoglobin 36.3 % Concent Red Cell Distribution Width 20.1 % Platelet Count 346 TH/MM3 Mean Platelet Volume 8.4 FL Neutrophils (%) (Auto) 37.4 % Lymphocytes (%) (Auto) 47.7 % Monocytes (%) (Auto) 11.4 % Eosinophils (%) (Auto) 2.1 % Basophils (%) (Auto) 1.4 % Neutrophils # (Auto) 3.4 TH/MM3 Lymphocytes # (Auto) 4.3 TH/MM3 Monocytes # (Auto) 1.0 TH/MM3 Eosinophils # (Auto) 0.2 TH/MM3 Basophils # (Auto) 0.1 TH/MM3 CBC Comment AUTO DIFF Differential Comment AUTO DIFF CONFIRMED Platelet Estimate NORMAL Platelet Morphology Comment NORMAL Sickle Cells 1+ Reticulocyte Count 0.7 % Absolute Reticulocyte Count 21.5 MIL/L Sodium Level 139 MEQ/L Potassium Level 3.4 MEQ/L Chloride Level 103 MEQ/L Carbon Dioxide Level 28.2 MEQ/L Anion Gap 8 MEQ/L Blood Urea Nitrogen 10 MG/DL Creatinine 0.51 MG/DL Estimat Glomerular Filtration 169 ML/MIN Rate Random Glucose 91 MG/DL Calcium Level 8.6 MG/DL Total Bilirubin 2.4 MG/DL Aspartate Amino Transf 59 U/L (AST/SGOT) Alanine Aminotransferase 20 U/L (ALT/SGPT) Alkaline Phosphatase 80 U/L Total Protein 8.1 GM/DL Albumin 3.7 GM/DL Human Chorionic Gonadotropin, LESS THAN 1 Quant MIU/ML [facility] Medical Decision Making Medical Screen Exam Complete: Yes Emergency Medical Condition: Yes Differential Diagnosis Sickle cell pain crisis, acute chest syndrome, anemia Narrative Course Vital signs show heart rate 93, blood pressure 110/80, pulse ox 97% on room air , oral temp of 99F. CBC shows WBC 9.1, hemoglobin 9, hematocrit 24.8, platelets 346. CMP is remarkable for potassium 3.4, T bili 2.4 which is around her baseline, otherwise unremarkable. Beta hCG is negative. Chest x-ray: FINDINGS: A single view of the chest demonstrates the lungs to be symmetrically aerated without evidence of mass, infiltrate or effusion. There is cardiomegaly and slight interstitial prominence. The cardiomediastinal contours are unremarkable. Osseous structures are intact. Right-sided portacatheter with tip unchanged. CONCLUSION: Cardiomegaly and slight interstitial prominence. Patient was made aware of all findings. She is resting comfortably. No respiratory distress. She was given a dose of Dilaudid with improvement in pain. She is stable for discharge home with outpatient follow-up with a primary care physician or microelectronics technician this week. She tells me that she recently received a letter from the office of her microelectronics technician Dr. Perez stating that they will no longer see her. She did not tell me why they sent her this letter. I told her that she should contact their office and ask them to refer her to another microelectronics technician. She was informed on when to return to the emergency department. She verbalizes understanding and agreement with plan. Diagnosis Primary Impression: Sickle cell pain crisis Referrals: Juan Perez MD 3 days Primary Care Physician 3 days Additional Instructions: Call your microelectronics technician's office and ask for a referral to a another microelectronics technician. Follow-up with a primary care physician this week. Return to the emergency department for worsening symptoms or any other concerns. Disposition: 01 DISCHARGE HOME Condition: Stable Mitchell Bonds MD Aug 22, 2016 02:44
[2016-08-22] MEDS ORDERED: SODIUM CHLORIDE 0.9% FLUSH 10 ML FLUSH IVF PRN (02:45)
[2016-08-22] MEDS ORDERED: HYDROmorphone HCL PF 1 MG/ML VIAL IVS ONE (02:45)
[2016-08-22] MEDS ORDERED: diphenhydrAMINE HCL 50 MG/ML VIAL IV ONE (02:45)
[2016-08-22 03:18] LABS: AUTOMATED NEUTROPHIL # 3.4 TH/MM3 (1.8-7.7); BASOPHIL # 0.1 TH/MM3 (0-0.2); BASOPHIL % 1.4 % (0.0-2.0); EOSINOPHIL # 0.2 TH/MM3 (0-0.4); EOSINOPHIL % 2.1 % (0.0-4.0); HEMATOCRIT 24.8 % (35.0-46.0); LYMPH % 47.7 % (9.0-44.0); LYMPHOCYTE # 4.3 TH/MM3 (1.0-4.8); MEAN CORPUSCULAR HEMOGLOBIN 30.5 PG (27.0-34.0); MONO % 11.4 % (0.0-8.0); NEUT % 37.4 % (16.0-70.0); PLATELET COUNT 346 TH/MM3 (150-450); RED BLOOD COUNT 2.95 MIL/MM3 (4.00-5.30); RED CELL DISTRIBUTION WIDTH 20.1 % (11.6-17.2); RETIC % 0.7 % (0.4-3.0); WHITE BLOOD COUNT 9.1 TH/MM3 (4.0-11.0)
[2016-08-22 03:22] LABS: HEMO FLAGS AUTO DIFF
[2016-08-22 03:47] LABS: ALKALINE PHOSPHATASE 80 U/L (45-117); BETA HCG QUANT LESS THAN 1 MIU/ML (0-5); TOTAL BILIRUBIN ADULT 2.4 MG/DL (0.2-1.0)
[2016-08-22 03:52] LABS: ALT (GPT) 20 U/L (10-53); ANION GAP 8 MEQ/L (5-15); AST (GOT) 59 U/L (15-37); BICARBONATE 28.2 MEQ/L (21.0-32.0); BLOOD UREA NITROGEN 10 MG/DL (7-18); CHLORIDE 103 MEQ/L (98-107); GLOMERULAR FILTRATION RATE 169 ML/MIN (>89); POTASSIUM 3.4 MEQ/L (3.5-5.1); SODIUM (NA) 139 MEQ/L (136-145)
[2016-08-22 04:03] LABS: PLATELET ESTIMATE SMEAR NORMAL (NORMAL); PLATELET MORPHOLOGY NORMAL (NORMAL); SCAN/DIFF AUTO DIFF CONFIRMED; SICKLE CELLS 1+ (NORMAL)
--- NOTE | 2016-08-22 04:08 | RADRPT ---
EXAM DATE/TIME: 08/22/2016 02:57 [facility] COMPARISON: CHEST SINGLE AP, August 10, 2016, 5:12. INDICATIONS : Sickle Cell crisis MEDICAL HISTORY : Sickle Cell disease. SURGICAL HISTORY : Port placement ENCOUNTER: Initial ACUITY: 1 day PAIN SCORE: 0/10 LOCATION: Bilateral chest FINDINGS: A single view of the chest demonstrates the lungs to be symmetrically aerated without evidence of mas s, infiltrate or effusion. There is cardiomegaly and slight interstitial prominence. The cardiomedias tinal contours are unremarkable. Osseous structures are intact. Right-sided portacatheter with tip u nchanged. CONCLUSION: Cardiomegaly and slight interstitial prominence. Zeke Griffith MD on August 22, 2016 at 4:05 Board Certified Radiologist. This report was verified electronically.
[2016-08-22] MEDS ORDERED: HYDROmorphone HCL PF 1 MG/ML VIAL IV PUSH ONE (04:30)
[2016-08-22] MEDS ORDERED: diphenhydrAMINE HCL 50 MG/ML VIAL IV PUSH ONE (04:30)
[2016-08-26] MEDS ORDERED: METH5TAB PO (11:49)
== END 2016-08-22 05:11 | disposition home or self-care (01) ==
LOC: NEPC 01:47
DX: D57.00 Hb-SS disease with crisis, unspecified (principal)
CPT/HCPCS: 71010; 80053; 84702; 85025; 85044; 96374; 96375; 96376; 99284; J1170; J1200; J1642; J7030

== ENCOUNTER 2016-08-23 02:31 | Emergency (ER) | payer OTHER ==
[~2016-08-23] VITALS: Ht 152.4 cm; Wt 59.0 kg
[~2016-08-23 02:31] MED LIST changes: -THERTAB15 PO
[2016-08-23 02:33] VITALS: BP 114/75; PULSE 83; RESP 16; TEMP 99; O2SAT 98
--- NOTE | 2016-08-23 03:17 | PD ---
HPI Chief Complaint: Sickle Cell Time Seen by Provider: 03:08 Travel History International Travel<30 days: No Contact w/Intl Traveler<30days: No Traveled to known affect area: No History of Present Illness HPI 30-year-old female with history of sickle cell disease here for evaluation of sickle cell pain. Patient is complaining of pain all over. I personally evaluated the patient yesterday for similar symptoms. She had reassuring lab workup with CBC that showed WBC 9.1, hemoglobin 9.0, hematocrit 24.8%, platelets 346. Her chest x-ray also was unremarkable, not suggestive of acute chest syndrome. She was treated in the emergency department and discharged with significant improvement in pain. She tells me today that her pain never really got better. 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 PFSH Past Medical History Hx Anticoagulant Therapy: No Anemia: Yes (WITH MULTIPLE BLOOD TRANSFUSIONS) Arthritis: No Asthma: No Autoimmune Disease: No Blood Disorders: No Anxiety: No Depression: No Cancer: No Cardiovascular Problems: No Chemotherapy: No Chest Pain: Yes Congestive Heart Failure: No COPD: No Cerebrovascular Accident: No Diabetes: No Diminished Hearing: No Endocrine: No Gastrointestinal Disorders: Yes (GALLSTONES) GERD: No Genitourinary: No Headaches: Yes Hiatal Hernia: No Immune Disorder: Yes (SICKLE CELL) Implanted Vascular Access Dvce: Yes (RIGHT CHEST INFUSAPORT) Insomnia: Yes Kidney Stones: No Musculoskeletal: No Neurologic: No Psychiatric: No Reproductive: No Respiratory: No Immunizations Current: Yes Migraines: No Pneumonia: Yes Radiation Therapy: No Renal Failure: No Seizures: No Sickle Cell Disease: Yes Thyroid Disease: No Ulcer: No PNEUMOCCOCAL Vaccine (Year): 2 : 2 Para: 1 Miscarriage: 1 : 0 Tubal Ligation: Yes (IN 2007) Past Surgical History Abdominal Surgery: Yes AICD: No Arteriovenous Shunt: No Body Medical Devices: MEDPORT Cardiac Surgery: No Section: Yes Cholecystectomy: Yes (1994) Ear Surgery: No Endocrine Surgery: No Eye Surgery: No Genitourinary Surgery: No Gynecologic Surgery: Yes Hysterectomy: Yes (TUBAL) Insulin Pump: No Joint Replacement: No Oral Surgery: Yes Pacemaker: No Thoracic Surgery: Yes (CHEST PORT ) Tonsillectomy: Yes Other Surgery: Yes (RIGHT CHEST INFUSAPORT ) Social History Alcohol Use: No Tobacco Use: No Substance Use: No Allergies-Medications (Allergen,Severity, Reaction): Coded Allergies: Morphine (Verified Allergy, Severe, RASH, 08/23/16) *MDRO Multi-Drug Resistant Organism (Verified Adverse Reaction, Unknown, MRSA, 08/23/16) MRSA (blood) - 12/18/2004 Reported Meds & Prescriptions Reported Meds & Active Scripts Active Hydrocodone-Acetaminophen 7.5-325 mg Tab 1 Tab PO Q6H PRN Folate (Folic Acid) 1 Mg Tab 1 Mg PO DAILY Review of Systems Except as stated in HPI: all other systems reviewed are Neg Physical Exam Narrative GENERAL: Well-developed, well-nourished, comfortable, no acute distress. SKIN: Focused skin assessment warm/dry. HEAD: Atraumatic. Normocephalic. EYES: Pupils equal and round. No scleral icterus. No injection or drainage. ENT: Mucous membranes pink and moist. CARDIOVASCULAR: Regular rate and rhythm. RESPIRATORY: No accessory muscle use. Clear to auscultation. Breath sounds equal bilaterally. GASTROINTESTINAL: Abdomen soft, non-tender, nondistended. MUSCULOSKELETAL: No obvious deformities. No clubbing. No cyanosis. No edema. No dactylitis. NEUROLOGICAL: Awake and alert. No obvious cranial nerve deficits. Motor grossly within normal limits. Normal speech. PSYCHIATRIC: Appropriate mood and affect; insight and judgment normal. Data Data Last Documented VS Vital Signs Date Time Temp Pulse Resp B/P Pulse Ox O2 Delivery O2 Flow Rate FiO2 08/23/16 02:33 99.0 83 16 114/75 98 Room Air MDM Medical Decision Making Medical Screen Exam Complete: Yes Emergency Medical Condition: Yes Differential Diagnosis Sickle cell pain crisis, anemia, acute chest syndrome, drug-seeking behavior Narrative Course Vital signs show heart rate 83, blood pressure 116/70, pulse ox 97% on room air , oral temp of 99F. Patient is overall very well-appearing. Again I assessed the patient in the emergency department yesterday and she had reassuring lab work and was discharged home with significant improvement in pain after she received 2 doses of IV Dilaudid. I told her today that I will not be repeating these labs as she is overall very well-appearing and I offered to give her oral pain medication. The patient became upset that she was not going to receive intravenous pain medication and decided to leave the emergency department before being discharged. She walked out of the emergency department comfortably , without difficulty, and without assistance. Diagnosis Primary Impression: Left against medical advice Additional Impression: Sickle cell pain crisis Disposition: 07 AGAINST MEDICAL ADVICE Condition: Stable Mitchell Bonds MD Aug 23, 2016 03:17
== END 2016-08-23 03:20 | disposition left against medical advice (07) ==
LOC: NEPE 02:31
DX: D57.00 Hb-SS disease with crisis, unspecified (principal)
CPT/HCPCS: 99283

== ENCOUNTER 2016-08-24 06:46 | Inpatient (IN) | payer OTHER ==
[~2016-08-24] VITALS: Ht 152.4 cm; Wt 58.0 kg
[2016-08-24] VITALS (8 sets, daily range): BP systolic 108–132; BP diastolic 67–86; PULSE 68–92; RESP 14–20; TEMP 97.9–98.9; O2SAT 95–98
[2016-08-24] MEDS ORDERED: HYDROmorphone HCL PF 1 MG/ML VIAL IV PUSH ONE ×3 (07:30→09:45)
[2016-08-24] MEDS ORDERED: diphenhydrAMINE HCL 50 MG/ML VIAL IV PUSH ONE ×2 (07:30→08:45)
[2016-08-24] MEDS ORDERED: SODIUM CHLOR 0.9% 1000 ML INJ 1,000 ML IV ONE ×2 (07:30→09:45)
--- NOTE | 2016-08-24 08:00 | PD ---
HPI Chief Complaint: Sickle Cell Time Seen by Provider: 07:19 Travel History International Travel<30 days: No Contact w/Intl Traveler<30days: No Traveled to known affect area: No History of Present Illness HPI This is a 30-year-old female who is well-known to this emerged department, who presents today with complaints of sickle cell pain. The patient has a history of sickle cell disease and usually presents with complaints of pain in her chest wall and joints. She denies any shortness of breath. She denies any fevers, chills. The patient denies a productive cough. There are no urinary symptoms. Patient was seen here 2 days ago and had stable laboratory tests. Given this, I had discussion with her that we would likely not send any new blood work as this is not a new exacerbation. PFSH Past Medical History Hx Anticoagulant Therapy: No Anemia: Yes Arthritis: No Asthma: No Autoimmune Disease: No Blood Disorders: No Anxiety: No Depression: No Cancer: No Cardiovascular Problems: No Chemotherapy: No Chest Pain: Yes Congestive Heart Failure: No COPD: No Cerebrovascular Accident: No Diabetes: No Diminished Hearing: No Endocrine: No Gastrointestinal Disorders: Yes (GALLSTONES) GERD: No Genitourinary: No Headaches: Yes Hiatal Hernia: No Immune Disorder: Yes (SICKLE CELL) Implanted Vascular Access Dvce: Yes (RIGHT CHEST ) Insomnia: Yes Kidney Stones: No Musculoskeletal: No Neurologic: No Psychiatric: No Reproductive: No Respiratory: No Immunizations Current: Yes Migraines: No Pneumonia: Yes Radiation Therapy: No Renal Failure: No Seizures: No Sickle Cell Disease: Yes Thyroid Disease: No Ulcer: No Tetanus Vaccination: < 5 Years Influenza Vaccination: Yes PNEUMOCCOCAL Vaccine (Year): 2 ?: Not LMP: 08/24/16 : 2 Para: 1 Miscarriage: 1 : 0 Tubal Ligation: Yes Past Surgical History Abdominal Surgery: Yes AICD: No Arteriovenous Shunt: No Body Medical Devices: MEDPORT Cardiac Surgery: No Section: Yes Cholecystectomy: Yes Ear Surgery: No Endocrine Surgery: No Eye Surgery: No Genitourinary Surgery: No Gynecologic Surgery: Yes Hysterectomy: Yes Insulin Pump: No Joint Replacement: No Oral Surgery: Yes Pacemaker: No Thoracic Surgery: Yes (CHEST PORT ) Tonsillectomy: Yes Other Surgery: Yes (RIGHT CHEST INFUSAPORT ) Social History Alcohol Use: No Tobacco Use: No Substance Use: No Allergies-Medications (Allergen,Severity, Reaction): Coded Allergies: Morphine (Verified Allergy, Severe, RASH, 08/24/16) *MDRO Multi-Drug Resistant Organism (Verified Adverse Reaction, Unknown, MRSA, 08/24/16) MRSA (blood) - 12/18/2004 Reported Meds & Prescriptions Reported Meds & Active Scripts Active Hydrocodone-Acetaminophen 7.5-325 mg Tab 1 Tab PO Q6H PRN Folate (Folic Acid) 1 Mg Tab 1 Mg PO DAILY Review of Systems Except as stated in HPI: all other systems reviewed are Neg General / Constitutional: No: Fever, Chills HENT: No: Headaches, Lightheadedness, Neck Pain Cardiovascular: Positive: Chest Pain or Discomfort, No: Palpitations (chest wall), Tachycardia, Syncope Respiratory: No: Cough, Shortness of Breath Gastrointestinal: Positive: Nausea, No: Vomiting, Abdominal Pain Genitourinary: Positive: Other (the patient states that she feels as though her menstrual cycles coming on. She states that she is using exacerbated her of her sickle cell disease.), No: Frequency, Dysuria, Discharge Musculoskeletal: Positive: Myalgias, Pain (joint), No: Weakness Neurologic: No: Weakness, Dizziness, Headache Physical Exam Narrative GENERAL: Well-nourished, well-developed patient. SKIN: Focused skin assessment warm/dry. HEAD: Normocephalic/atraumatic. EYES: Slight scleral icterus. No injection or drainage. NECK: Supple, trachea midline. CARDIOVASCULAR: Regular rate and rhythm without murmurs, gallops, or rubs. RESPIRATORY: Breath sounds equal bilaterally. No accessory muscle use. GASTROINTESTINAL: Abdomen soft, non-tender, nondistended. MUSCULOSKELETAL: No cyanosis, or edema. NEUROLOGICAL: Awake and alert. Cranial nerves II through XII intact. Motor grossly within normal limits. Five out of 5 muscle strength in all muscle groups. Normal speech. Data Data Last Documented VS Vital Signs Date Time Temp Pulse Resp B/P Pulse Ox O2 Delivery O2 Flow Rate FiO2 08/24/16 09:30 92 17 118/76 97 Room Air 08/24/16 06:47 98.9 Orders Diphenhydramine Inj (Benadryl Inj) (08/24/16 07:30) Hydromorphone Pf Inj (Dilaudid Pf Inj) (08/24/16 07:30) Sodium Chlor 0.9% 1000 Ml Inj (Ns 1000 M (08/24/16 07:30) Hydromorphone Pf Inj (Dilaudid Pf Inj) (08/24/16 08:45) Diphenhydramine Inj (Benadryl Inj) (08/24/16 08:45) Sodium Chlor 0.9% 1000 Ml Inj (Ns 1000 M (08/24/16 09:45) Hydromorphone Pf Inj (Dilaudid Pf Inj) (08/24/16 09:45) Admit Order (Ed Use Only) (08/24/16 10:17) MDM Medical Decision Making Medical Screen Exam Complete: Yes Emergency Medical Condition: Yes Differential Diagnosis Sickle cell disease versus pain crisis versus acute exacerbation of chronic pain Narrative Course 30-year-old female history of sickle cell disease, well-known to this emergency department, who presents with pain crisis. The patient was seen here 2 days ago and had blood work done. Laboratory tests were within normal limits for her. Her reticulocyte count was 0.7. I discussed with her that we would try pain management with I V fluids. She is required 3 doses of IV pain medicines. I told her at this point if she was still in pain we would need to bring her in under observation. She states that if she were to go home, she would likely end up having to come back tomorrow if we were to send her home. There is a call out to the [facility] hospitalist service. She has had her second liter of IV fluid hung. I'm hoping that we can get her feeling better over the next 24 hours to go home. Diagnosis Primary Impression: Sickle cell pain crisis Admitting Information Admitting Physician Requests: Observation Lazaro Teague MD Aug 24, 2016 08:00
[2016-08-24] MEDS ORDERED: ACETAMINOPHEN 325 MG TAB PO PRN (10:45)
[2016-08-24] MEDS: DOCUSATE SODIUM 100 MG CAP PO SCH ×2 (10:45→21:00)
[2016-08-24] MEDS ORDERED: NALOXONE HCL 0.4 MG/ML AMP IV PRN (10:45)
[2016-08-24] MEDS ORDERED: ONDANSETRON HCL 4 MG/2 ML VIAL IVP PRN (10:45)
[2016-08-24] MEDS ORDERED: BISACODYL 10 MG SUPP RECTAL PRN (10:45)
--- NOTE | 2016-08-24 10:59 | HHI.HP ---
[facility] Service [facility] Hospitalists Primary Care Physician No Primary Care Physician Admission Diagnosis sickle cell crisis Diagnoses: Chief Complaint: Sickle cell pain crisis Travel History International Travel<30 Days: No Contact w/Intl Traveler <30 Da: No Traveled to Known Affected Are: No History of Present Illness This is a pleasant 30 y/o Female with Sickle Cell disease, multiple admissions due to Sickle Cell crisis with Anemia, chronic Pain syndrome/Narcotic dependence/Narcotic Seeking Behavior, followed by ad operations specialist doctor Chris Velasquez. the patient was recently discharged from this facility, she continue to come to Emergency room with chest pain, back pain and arm pain, Discussed She is been evaluated continuously in Emergency room she comes and is given Dilaudid IV and return at the very next day with Pain, as discussed with Doctor Lazaro Teague Emergency Medicine he does not think the patient has a real Sickle cell pain crisis, she has important Drug Seeking behavior, denies having any cough, congestion, fever, chills, or shortness of breath. She denies having any dysuria, hematuria, urinary urgency or frequency. no new laboratory performed in Emergency room due to multiple labs taken all this days. seen in Emergency room, in No acute distress. asking for Dilaudid and Benadryl to be given Together. Review of Systems Cardiovascular: COMPLAINS OF: Chest pain Musculoskeletal: COMPLAINS OF: Joint pain Past Family Social History Past Medical History Sickled Cell Disease Multiple blood transfusions. Past Surgical History Tubal ligation [id number] placement Cholecystectomy 1994 Tonsillectomy Reported Medications Reported Meds & Active Scripts Active Hydrocodone-Acetaminophen 7.5-325 mg Tab 1 Tab PO Q6H PRN Folate (Folic Acid) 1 Mg Tab 1 Mg PO DAILY Allergies: Coded Allergies: Morphine (Verified Allergy, Severe, RASH, 08/24/16) *MDRO Multi-Drug Resistant Organism (Verified Adverse Reaction, Unknown, MRSA, 08/24/16) MRSA (blood) - 12/18/2004 Active Ordered Medications Current Medications Medications (Trade) Dose Ordered Sig/Marielle Route Start Time Stop Time Status Last Admin (NS 1000 ml Inj) 1,000 ml @ 999 mls/hr BOLUS ONCE IV 08/24/16 09:45 08/24/16 10:45 08/24/16 10:02 Family History Sister with sickle cell disease Denies any other significant family history of cancers, stroke, diabetes, or heart disease. Social History Lives with her Son, Denies any tobacco, alcohol, or illicit drug use. Physical Exam Vital Signs Vital Signs Date Time Temp Pulse Resp B/P Pulse Ox O2 Delivery O2 Flow Rate FiO2 08/24/16 09:30 92 17 118/76 97 Room Air 08/24/16 07:40 88 15 126/68 98 Room Air 08/24/16 06:47 98.9 75 14 131/75 98 Room Air Physical Exam GENERAL: This is a well-nourished, well-developed patient, in no apparent distress. SKIN: No rashes, ecchymoses or lesions. Cool and dry. HEAD: Atraumatic. Normocephalic. No temporal or scalp tenderness. EYES: Pupils equal round and reactive. Extraocular motions intact. No scleral icterus. No injection or drainage. ENT: Nose without bleeding, purulent drainage or septal hematoma. Throat without erythema, tonsillar hypertrophy or exudate. Uvula midline. Airway patent. NECK: Trachea midline. No JVD or lymphadenopathy. Supple, nontender, no meningeal signs. CARDIOVASCULAR: Regular rate and rhythm without murmurs, gallops, or rubs. RESPIRATORY: Clear to auscultation. Breath sounds equal bilaterally. No wheezes , rales, or rhonchi. GASTROINTESTINAL: Abdomen soft, non-tender, nondistended. No hepato-splenomegaly , or palpable masses. No guarding. MUSCULOSKELETAL: Extremities without clubbing, cyanosis, or edema. No joint tenderness, effusion, or edema noted. No calf tenderness. Negative Homans sign bilaterally. NEUROLOGICAL: Awake and alert. Cranial nerves II through XII intact. Motor and sensory grossly within normal limits. Five out of 5 muscle strength in all muscle groups. Normal speech. Laboratory No New Laboratory performed. Imaging No new Imaging studies. Assessment and Plan Assessment and Plan 1-Sickle cell pain crisis: Supportive care with IV fluid hydration, pain management. 2. Narcotic dependency and Drug Seeking behavior. 3. Anemia, Hemoglobin 9 DVT prophylaxis: Lovenox Code Status Full Code Discussed Condition With Patient and Emergency Emergency Medicine Physician Doctor Lazaro Teague Physician Certification 2 Midnight Certification Type: Admission for Inpatient Services Order for Inpatient Services The services are ordered in accordance with Medicare regulations or non- Medicare payer requirements, as applicable. In the case of services not specified as inpatient-only, they are appropriately provided as inpatient services in accordance with the 2-midnight benchmark. Estimated LOS (days): 1 days is the estimated time the patient will need to remain in the hospital, assuming treatment plan goals are met and no additional complications. Post-Hospital Plan: Home Aldo Fletcher MD Aug 24, 2016 10:59
[2016-08-24] MEDS: ENOXAPARIN SODIUM 40 MG/0.4 ML SYRINGE SQ SCH (11:00)
[2016-08-24] MEDS: SODIUM CHLOR 0.9% 1000 ML INJ 1,000 ML IV SCH ×3 (11:19→18:05)
[2016-08-24] MEDS: FOLIC ACID 1 MG TAB PO SCH (11:30)
[2016-08-24] MEDS: ACETAMINOPHEN/HYDROcodone 325 MG/7.5 MG TAB PO PRN ×3 (13:10→21:45)
[2016-08-24] MEDS: diphenhydrAMINE HCL 50 MG/ML VIAL IV PUSH PRN ×3 (13:11→21:45)
[2016-08-24] MEDS: HYDROmorphone HCL PF 1 MG/ML VIAL IV PUSH PRN ×3 (14:15→22:40)
[2016-08-24 17:59] LABS: SQUAMOUS EPITHELIAL CELL URINE 2 /hpf (0-5)
[2016-08-24 18:00] LABS: BLOOD, URINE NEG (NEG); COMMENT (UR) CULT NOT INDICATED; CULTURE IF INDICATED CULT NOT INDICATED; GLUCOSE,URINE NEG (NEG); KETONE, URINE NEG (NEG); NITRITE,URINE NEG (NEG); URINE COLOR LIGHT-YELLOW (YELLW/STRAW)
[2016-08-24] MEDS: SODIUM CHLORIDE 0.9% FLUSH 10 ML FLUSH IV FLUSH SCH (21:00)
[2016-08-25] MEDS: ACETAMINOPHEN/HYDROcodone 325 MG/7.5 MG TAB PO PRN ×6 (01:48→22:49)
[2016-08-25] MEDS: diphenhydrAMINE HCL 50 MG/ML VIAL IV PUSH PRN ×6 (01:49→22:49)
[2016-08-25] MEDS: HYDROmorphone HCL PF 1 MG/ML VIAL IV PUSH PRN ×5 (02:44→19:34)
[2016-08-25 04:21] VITALS: BP 115/68; PULSE 75; RESP 18; TEMP 98.3; O2SAT 97
[2016-08-25 05:31] LABS: AUTOMATED NEUTROPHIL # 4.5 TH/MM3 (1.8-7.7); BASOPHIL # 0.1 TH/MM3 (0-0.2); BASOPHIL % 0.8 % (0.0-2.0); EOSINOPHIL # 0.5 TH/MM3 (0-0.4); EOSINOPHIL % 4.2 % (0.0-4.0); LYMPH % 46.1 % (9.0-44.0); LYMPHOCYTE # 5.2 TH/MM3 (1.0-4.8); MEAN CELL VOLUME 86.2 FL (80.0-100.0); MEAN CORPUSCULAR HEMOGLOBIN 29.4 PG (27.0-34.0); MEAN CORPUSCULAR HGB CONC 34.2 % (32.0-36.0); MONO % 8.7 % (0.0-8.0); NEUT % 40.2 % (16.0-70.0); PLATELET COUNT 382 TH/MM3 (150-450); RED BLOOD COUNT 2.42 MIL/MM3 (4.00-5.30); RED CELL DISTRIBUTION WIDTH 20.6 % (11.6-17.2); WHITE BLOOD COUNT 11.2 TH/MM3 (4.0-11.0)
[2016-08-25 05:43] LABS: HEMO FLAGS AUTO DIFF
[2016-08-25 05:44] LABS: HEMATOCRIT 20.9 % (35.0-46.0)
[2016-08-25] MEDS: SODIUM CHLOR 0.9% 1000 ML INJ 1,000 ML IV SCH ×3 (05:56→22:49)
[2016-08-25 06:00] LABS: BICARBONATE 27.4 MEQ/L (21.0-32.0); POTASSIUM 3.1 MEQ/L (3.5-5.1)
--- NOTE | 2016-08-25 07:59 | HHI.PR ---
Subjective Remarks This is a pleasant 30 y/o Female with Sickle Cell disease, multiple admissions due to Sickle Cell crisis with Anemia, chronic Pain syndrome/Narcotic dependence/Narcotic Seeking Behavior, followed by vocational services specialist doctor Chris Velasquez. the patient was recently discharged from this facility, she continue to come to Emergency room with chest pain, back pain and arm pain, Discussed She is been evaluated continuously in Emergency room she comes and is given Dilaudid IV and return at the very next day with Pain, as discussed with Doctor Lazaro Teague Emergency Medicine he does not think the patient has a real Sickle cell pain crisis, she has important Drug Seeking behavior, denies having any cough, congestion, fever, chills, or shortness of breath. She denies having any dysuria, hematuria, urinary urgency or frequency. no new laboratory performed in Emergency room due to multiple labs taken all this days. seen in Emergency room, in No acute distress. asking for Dilaudid and Benadryl to be given Together. 08/25: Seen in her bedroom in the presence of nurse miss Valencia No nausea, vomit or diarrhea, improving her pain, continue present care. Objective Vital Signs Date Time Temp Pulse Resp B/P Pulse Ox O2 Delivery O2 Flow Rate FiO2 08/25/16 04:21 98.3 75 18 115/68 97 08/24/16 23:40 98.3 78 19 115/70 96 08/24/16 18:25 71 18 118/77 95 08/24/16 16:00 98.2 68 20 108/67 97 08/24/16 12:30 97.9 72 20 117/76 95 08/24/16 11:36 74 16 132/86 98 08/24/16 09:30 92 17 118/76 97 Room Air I/O 08/24/16 08/24/16 08/24/16 08/25/16 08/25/16 08/25/16 07:00 15:00 23:00 07:00 15:00 23:00 Intake Total 240 ml 800 ml Output Total 150 ml Balance 240 ml 650 ml Intake Oral 240 ml IV Total 800 ml Output Urine Total 150 ml # Voids 1 # Bowel Movements 1 Result Diagram: 08/25/16 0431 08/25/16 0431 Imaging No Imaging studies performed Procedures No procedures performed Other Results Laboratory Tests Test 08/24/16 08/25/16 17:30 04:31 Urine Color LIGHT-YELLOW Urine Turbidity CLEAR Urine pH 7.0 Urine Specific [place] 1.008 Urine Protein NEG mg/dL Urine Glucose (UA) NEG mg/dL Urine Ketones NEG mg/dL Urine Occult Blood NEG Urine Nitrite NEG Urine Bilirubin NEG Urine Urobilinogen 2.0 MG/DL Urine Leukocyte Esterase NEG Urine WBC LESS THAN 1 /hpf Urine Squamous Epithelial 2 /hpf Cells Microscopic Urinalysis Comment CULT NOT INDICATED White Blood Count 11.2 TH/MM3 Red Blood Count 2.42 MIL/MM3 Hemoglobin 7.1 GM/DL Hematocrit 20.9 % Mean Corpuscular Volume 86.2 FL Mean Corpuscular Hemoglobin 29.4 PG Mean Corpuscular Hemoglobin 34.2 % Concent Red Cell Distribution Width 20.6 % Platelet Count 382 TH/MM3 Mean Platelet Volume 8.8 FL Neutrophils (%) (Auto) 40.2 % Lymphocytes (%) (Auto) 46.1 % Monocytes (%) (Auto) 8.7 % Eosinophils (%) (Auto) 4.2 % Basophils (%) (Auto) 0.8 % Neutrophils # (Auto) 4.5 TH/MM3 Lymphocytes # (Auto) 5.2 TH/MM3 Monocytes # (Auto) 1.0 TH/MM3 Eosinophils # (Auto) 0.5 TH/MM3 Basophils # (Auto) 0.1 TH/MM3 CBC Comment AUTO DIFF Sodium Level 142 MEQ/L Potassium Level 3.1 MEQ/L Chloride Level 107 MEQ/L Carbon Dioxide Level 27.4 MEQ/L Anion Gap 8 MEQ/L Blood Urea Nitrogen 3 MG/DL Creatinine 0.45 MG/DL Estimat Glomerular Filtration 195 ML/MIN Rate Random Glucose 96 MG/DL Calcium Level 8.3 MG/DL Objective Remarks GENERAL: This is a well-nourished, well-developed patient, in no apparent distress. SKIN: No rashes, ecchymoses or lesions. Cool and dry. HEAD: Atraumatic. Normocephalic. No temporal or scalp tenderness. EYES: Pupils equal round and reactive. Extraocular motions intact. No scleral icterus. No injection or drainage. ENT: Nose without bleeding, purulent drainage or septal hematoma. Throat without erythema, tonsillar hypertrophy or exudate. Uvula midline. Airway patent. NECK: Trachea midline. No JVD or lymphadenopathy. Supple, nontender, no meningeal signs. CARDIOVASCULAR: Regular rate and rhythm without murmurs, gallops, or rubs. RESPIRATORY: Clear to auscultation. Breath sounds equal bilaterally. No wheezes , rales, or rhonchi. GASTROINTESTINAL: Abdomen soft, non-tender, nondistended. No hepato-splenomegaly , or palpable masses. No guarding. MUSCULOSKELETAL: Extremities without clubbing, cyanosis, or edema. No joint tenderness, effusion, or edema noted. No calf tenderness. Negative Homans sign bilaterally. NEUROLOGICAL: Awake and alert. Cranial nerves II through XII intact. Motor and sensory grossly within normal limits. Five out of 5 muscle strength in all muscle groups. Normal speech. Medications and IVs Current Medications Medications (Trade) Dose Ordered Sig/Marielle Route Start Time Stop Time Status Last Admin Folic Acid 1 mg 1 mg DAILY PO 08/24/16 10:45 08/24/16 11:30 (NS 1000 ml Inj) 1,000 ml @ 150 mls/hr Q6H40M IV 08/24/16 10:44 08/25/16 05:56 (NS Flush) 2 ml UNSCH PRN IV FLUSH 08/24/16 10:45 (NS Flush) 2 ml BID IV FLUSH 08/24/16 21:00 (Tylenol) 650 mg Q4H PRN PO 08/24/16 10:45 (Zofran Inj) 4 mg Q6H PRN IVP 08/24/16 10:45 (Dulcolax Supp) 10 mg DAILY PRN RECTAL 08/24/16 10:45 (Colace) 100 mg Q12HR PO 08/24/16 10:45 (Lovenox Inj) 40 mg Q24H SQ 08/24/16 11:00 (Narcan Inj) 0.4 mg UNSCH PRN IV 08/24/16 10:45 (Dilaudid Pf Inj) 1 mg Q4H PRN IV PUSH 08/24/16 11:00 08/25/16 07:11 ([place] 7.5-325 Mg) 1 tab Q4H PRN PO 08/24/16 11:00 08/25/16 05:55 (Benadryl Inj) 25 mg Q4H PRN IV PUSH 08/24/16 11:00 08/25/16 05:55 (KCl) 40 meq ONCE ONCE PO 08/25/16 08:00 08/25/16 08:01 UNV A/P Assessment and Plan 1-Sickle cell pain crisis: Supportive care with IV fluid hydration, pain management. 2. Narcotic dependency and Drug Seeking behavior. 3. Anemia, Hemoglobin 7.1 dilutional effect. 4. Electrolyte derangement replaced and following. Decreased IV fluids to 100 ml per hour. DVT prophylaxis: Lovenox Code Status Full Code Discussed Condition With Aldo Fletcher MD Aug 25, 2016 07:59
[2016-08-25 08:00] VITALS: BP 110/65; PULSE 67; RESP 20; TEMP 97.3; O2SAT 93
[2016-08-25] MEDS ORDERED: POTASSIUM CHLORIDE 20 MEQ CONTROLLED RELEASE TAB PO ONE ×2 (08:00→11:00)
[2016-08-25 08:25] LABS: CORRECTED NUCLEATED RBC 1 /100 WBC (0-0); EOSINOPHILS 2 % (0-4); KERATOCYTES OCC (NORMAL); NEUTROPHIL # MANUAL DIFF 5.2 TH/MM3 (1.8-7.7); PLATELET ESTIMATE SMEAR NORMAL (NORMAL); PLATELET MORPHOLOGY NORMAL (NORMAL); POLYS (SEG NEUTROPHILS) 46 % (16-70); SCAN/DIFF FINAL DIFF MANUAL; SICKLE CELLS 1+ (NORMAL); WBC DIFF SAMPLE 100
[2016-08-25 08:26] LABS: OVALOCYTES 1+ (NORMAL)
[2016-08-25 08:39] LABS: MAGNESIUM 1.5 MG/DL (1.5-2.5)
[2016-08-25] MEDS: DOCUSATE SODIUM 100 MG CAP PO SCH ×2 (09:00→20:18)
[2016-08-25] MEDS: SODIUM CHLORIDE 0.9% FLUSH 10 ML FLUSH IV FLUSH SCH ×2 (09:00→20:18)
[2016-08-25] MEDS: FOLIC ACID 1 MG TAB PO SCH (09:27)
[2016-08-25] MEDS: ENOXAPARIN SODIUM 40 MG/0.4 ML SYRINGE SQ SCH (11:00)
[2016-08-25 12:00] VITALS: BP 114/77; PULSE 81; RESP 20; TEMP 97.7; O2SAT 94
[2016-08-25] MEDS: MAGNESIUM SULFATE 1 GM PREMIX 100 ML IV SCH ×2 (13:40→15:21)
[2016-08-25 16:00] VITALS: BP 108/70; PULSE 73; RESP 20; TEMP 97.4; O2SAT 95
[2016-08-25 17:12] LABS: HEMATOCRIT 22.2 % (35.0-46.0); MEAN CELL VOLUME 86.5 FL (80.0-100.0); MEAN CORPUSCULAR HEMOGLOBIN 29.4 PG (27.0-34.0); PLATELET COUNT 405 TH/MM3 (150-450); RED BLOOD COUNT 2.57 MIL/MM3 (4.00-5.30); RED CELL DISTRIBUTION WIDTH 20.8 % (11.6-17.2); REVIEW FLAG FINAL
[2016-08-25 19:39] VITALS: BP 120/77; PULSE 77; RESP 17; TEMP 98.6; O2SAT 99
[2016-08-26] VITALS: BP 100/63; PULSE 71; RESP 18; TEMP 97.3; O2SAT 94
[2016-08-26] MEDS: HYDROmorphone HCL PF 1 MG/ML VIAL IV PUSH PRN ×6 (00:03→22:37)
[2016-08-26] MEDS: diphenhydrAMINE HCL 50 MG/ML VIAL IV PUSH PRN ×5 (03:40→22:03)
[2016-08-26] MEDS: ACETAMINOPHEN/HYDROcodone 325 MG/7.5 MG TAB PO PRN (03:40)
[2016-08-26 04:00] VITALS: BP 106/64; PULSE 71; RESP 18; TEMP 97.4; O2SAT 95
[2016-08-26 05:06] LABS: MAGNESIUM 1.9 MG/DL (1.5-2.5); POTASSIUM 3.3 MEQ/L (3.5-5.1)
[2016-08-26 08:08] VITALS: BP 128/71; PULSE 73; RESP 18; TEMP 97.6; O2SAT 95
--- NOTE | 2016-08-26 08:14 | HHI.PR ---
Subjective Remarks This is a pleasant 30 y/o Female with Sickle Cell disease, multiple admissions due to Sickle Cell crisis with Anemia, chronic Pain syndrome/Narcotic dependence/Narcotic Seeking Behavior, followed by employee communications specialist doctor Chris Velasquez. the patient was recently discharged from this facility, she continue to come to Emergency room with chest pain, back pain and arm pain, Discussed She is been evaluated continuously in Emergency room she comes and is given Dilaudid IV and return at the very next day with Pain, as discussed with Doctor Lazaro Teague Emergency Medicine he does not think the patient has a real Sickle cell pain crisis, she has important Drug Seeking behavior, denies having any cough, congestion, fever, chills, or shortness of breath. She denies having any dysuria, hematuria, urinary urgency or frequency. no new laboratory performed in Emergency room due to multiple labs taken all this days. seen in Emergency room, in No acute distress. asking for Dilaudid and Benadryl to be given Together. 08/25: Seen in her bedroom in the presence of nurse miss Valencai, improving her pain. 08/26: Seen in the room in the presence of Nurse Miss Yang and Training nurse Miss Moncada present at all times while I was in the room, patient continue asking for the medicines Benadryl and Dilaudid given together, explained to the nurses that Benadryl is given previous to Dilaudid to prevent itching but not for Synergy, she asks to be given Methadone at Discharge she will need to follow with her retail presentation specialist and Pain medicine to continue this medicine No Nausea, vomit or diarrhea, but states continue in pain and do not want to go today will see how she feels tomorrow. Objective Vital Signs Date Time Temp Pulse Resp B/P Pulse Ox O2 Delivery O2 Flow Rate FiO2 08/26/16 08:08 97.6 73 18 128/71 95 08/26/16 04:00 97.4 71 18 106/64 95 08/26/16 00:00 97.3 71 18 100/63 94 08/25/16 19:39 98.6 77 17 120/77 99 08/25/16 16:00 97.4 73 20 108/70 95 08/25/16 12:00 97.7 81 20 114/77 94 I/O 08/25/16 08/25/16 08/25/16 08/26/1608/26/17 4/17/17 07:00 15:00 23:00 07:00 15:00 23:00 Output Total 500 ml Balance -500 ml Output Urine Total 500 ml # Voids 4 4 # Bowel Movements 1 Result Diagram: 08/25/16 1657 08/26/16 0340 Imaging No Imaging studies performed Procedures No procedures performed Other Results Laboratory Tests Test 08/24/16 08/25/16 08/25/16 08/26/16 17:30 04:31 16:57 03:40 Urine Color LIGHT-YELLOW Urine Turbidity CLEAR Urine pH 7.0 Urine Specific [place] 1.008 Urine Protein NEG mg/dL Urine Glucose (UA) NEG mg/dL Urine Ketones NEG mg/dL Urine Occult Blood NEG Urine Nitrite NEG Urine Bilirubin NEG Urine Urobilinogen 2.0 MG/DL Urine Leukocyte Esterase NEG Urine WBC LESS THAN 1 /hpf Urine Squamous Epithelial 2 /hpf Cells Microscopic Urinalysis Comment CULT NOT INDICATED Neutrophils (%) (Auto) 40.2 % Lymphocytes (%) (Auto) 46.1 % Monocytes (%) (Auto) 8.7 % Eosinophils (%) (Auto) 4.2 % Basophils (%) (Auto) 0.8 % Neutrophils # (Auto) 4.5 TH/MM3 Lymphocytes # (Auto) 5.2 TH/MM3 Monocytes # (Auto) 1.0 TH/MM3 Eosinophils # (Auto) 0.5 TH/MM3 Basophils # (Auto) 0.1 TH/MM3 CBC Comment AUTO DIFF Differential Total Cells 100 Counted Neutrophils % (Manual) 46 % Lymphocytes % 48 % Monocytes % 4 % Eosinophils % 2 % Neutrophils # (Manual) 5.2 TH/MM3 Nucleated Red Blood Cells 1 /100 WBC Differential Comment FINAL DIFF MANUAL Platelet Estimate NORMAL Platelet Morphology Comment NORMAL Sickle Cells 1+ Ovalocytes 1+ Keratocytes OCC Sodium Level 142 MEQ/L Chloride Level 107 MEQ/L Carbon Dioxide Level 27.4 MEQ/L Anion Gap 8 MEQ/L Blood Urea Nitrogen 3 MG/DL Creatinine 0.45 MG/DL Estimat Glomerular Filtration 195 ML/MIN Rate Random Glucose 96 MG/DL Calcium Level 8.3 MG/DL White Blood Count 11.0 TH/MM3 Red Blood Count 2.57 MIL/MM3 Hemoglobin 7.6 GM/DL Hematocrit 22.2 % Mean Corpuscular Volume 86.5 FL Mean Corpuscular Hemoglobin 29.4 PG Mean Corpuscular Hemoglobin 34.0 % Concent Red Cell Distribution Width 20.8 % Platelet Count 405 TH/MM3 Mean Platelet Volume 8.0 FL Potassium Level 3.3 MEQ/L Magnesium Level 1.9 MG/DL Objective Remarks GENERAL: This is a well-nourished, well-developed patient, in no apparent distress. SKIN: No rashes, ecchymoses or lesions. Cool and dry. HEAD: Atraumatic. Normocephalic. No temporal or scalp tenderness. EYES: Pupils equal round and reactive. Extraocular motions intact. No scleral icterus. No injection or drainage. ENT: Nose without bleeding, purulent drainage or septal hematoma. Throat without erythema, tonsillar hypertrophy or exudate. Uvula midline. Airway patent. NECK: Trachea midline. No JVD or lymphadenopathy. Supple, nontender, no meningeal signs. CARDIOVASCULAR: Regular rate and rhythm without murmurs, gallops, or rubs. RESPIRATORY: Clear to auscultation. Breath sounds equal bilaterally. No wheezes , rales, or rhonchi. GASTROINTESTINAL: Abdomen soft, non-tender, nondistended. No hepato-splenomegaly , or palpable masses. No guarding. MUSCULOSKELETAL: Extremities without clubbing, cyanosis, or edema. No joint tenderness, effusion, or edema noted. No calf tenderness. Negative Homans sign bilaterally. NEUROLOGICAL: Awake and alert. Cranial nerves II through XII intact. Motor and sensory grossly within normal limits. Five out of 5 muscle strength in all muscle groups. Normal speech. Medications and IVs Current Medications Medications (Trade) Dose Ordered Sig/Marielle Route Start Time Stop Time Status Last Admin Folic Acid 1 mg 1 mg DAILY PO 08/24/16 10:45 08/25/16 09:27 (NS 1000 ml Inj) 1,000 ml @ 100 mls/hr Q10H IV 08/24/16 10:44 08/25/16 22:49 (NS Flush) 2 ml UNSCH PRN IV FLUSH 08/24/16 10:45 (NS Flush) 2 ml BID IV FLUSH 08/24/16 21:00 (Tylenol) 650 mg Q4H PRN PO 08/24/16 10:45 (Zofran Inj) 4 mg Q6H PRN IVP 08/24/16 10:45 (Dulcolax Supp) 10 mg DAILY PRN RECTAL 08/24/16 10:45 (Colace) 100 mg Q12HR PO 08/24/16 10:45 (Lovenox Inj) 40 mg Q24H SQ 08/24/16 11:00 (Narcan Inj) 0.4 mg UNSCH PRN IV 08/24/16 10:45 (Dilaudid Pf Inj) 1 mg Q4H PRN IV PUSH 08/24/16 11:00 08/26/16 04:58 ([place] 7.5-325 Mg) 1 tab Q4H PRN PO 08/24/16 11:00 08/26/16 03:40 (Benadryl Inj) 25 mg Q4H PRN IV PUSH 08/24/16 11:00 08/26/16 03:40 A/P Assessment and Plan 1-Sickle cell pain crisis: Supportive care with IV fluid hydration, pain management. 2. Narcotic dependency and Drug Seeking behavior. asking for Script at discharge on Methadone I told her for this medicine will need to follow with Hematology and better with Pain medicine specialist this medicine has to be handled by Specialist. 3. Anemia, Hemoglobin 7.6 try not to give blood transfusion only if Hemoglobin below 7. 4. Electrolyte derangement replaced and following. IV fluids to 100 ml per hour. DVT prophylaxis: Lovenox Code Status Full Code Discussed Condition With Patient and Nurses Miss Yang and Miss Moncada Discharge Planning Expected later today or in am tomorrow. Aldo Fletcher MD Aug 26, 2016 08:14
[2016-08-26] MEDS: SODIUM CHLOR 0.9% 1000 ML INJ 1,000 ML IV SCH ×2 (08:37→18:33)
[2016-08-26] MEDS: SODIUM CHLORIDE 0.9% FLUSH 10 ML FLUSH IV FLUSH SCH ×2 (08:38→21:00)
[2016-08-26] MEDS: DOCUSATE SODIUM 100 MG CAP PO SCH ×2 (08:38→21:00)
[2016-08-26] MEDS: FOLIC ACID 1 MG TAB PO SCH (08:38)
[2016-08-26] MEDS: SODIUM CHLORIDE 0.9% FLUSH 10 ML FLUSH IV FLUSH PRN ×6 (08:58→18:34)
[2016-08-26] MEDS ORDERED: POTASSIUM CHLORIDE 20 MEQ CONTROLLED RELEASE TAB PO ONE ×2 (10:00→11:30)
[2016-08-26] MEDS: ENOXAPARIN SODIUM 40 MG/0.4 ML SYRINGE SQ SCH (11:00)
[2016-08-26 11:01] VITALS: BP 116/68; PULSE 72; RESP 18; TEMP 98.3; O2SAT 95
[2016-08-26] MEDS ORDERED: METH5TAB PO ×2 (11:49)
[2016-08-26 16:17] VITALS: BP 135/84; PULSE 86; RESP 18; TEMP 98.7; O2SAT 94
[2016-08-26 20:00] VITALS: BP 117/79; PULSE 60; RESP 20; TEMP 98; O2SAT 97
[2016-08-27] MEDS: diphenhydrAMINE HCL 50 MG/ML VIAL IV PUSH PRN ×6 (02:02→22:58)
[2016-08-27] MEDS: HYDROmorphone HCL PF 1 MG/ML VIAL IV PUSH PRN ×5 (02:38→21:29)
[2016-08-27] MEDS: SODIUM CHLOR 0.9% 1000 ML INJ 1,000 ML IV SCH ×2 (04:23→14:37)
[2016-08-27 07:48] VITALS: BP 98/52; PULSE 76; RESP 18; TEMP 97.8; O2SAT 92
[2016-08-27] MEDS: POTASSIUM CHLORIDE 20 MEQ CONTROLLED RELEASE TAB PO ONE ×2 (08:30→09:19)
[2016-08-27] MEDS: DOCUSATE SODIUM 100 MG CAP PO SCH ×2 (09:00→21:00)
[2016-08-27] MEDS: SODIUM CHLORIDE 0.9% FLUSH 10 ML FLUSH IV FLUSH SCH ×2 (09:00→21:28)
[2016-08-27] MEDS: FOLIC ACID 1 MG TAB PO SCH (09:19)
[2016-08-27] MEDS: SODIUM CHLORIDE 0.9% FLUSH 10 ML FLUSH IV FLUSH PRN ×6 (10:30→18:41)
[2016-08-27] MEDS: ENOXAPARIN SODIUM 40 MG/0.4 ML SYRINGE SQ SCH (10:30)
[2016-08-27 12:10] VITALS: BP 112/66; PULSE 72; RESP 18; TEMP 98.7; O2SAT 96
--- NOTE | 2016-08-27 12:53 | HHI.PR ---
Subjective Remarks This is a pleasant 30 y/o Female with Sickle Cell disease, multiple admissions due to Sickle Cell crisis with Anemia, chronic Pain syndrome/Narcotic dependence/Narcotic Seeking Behavior, followed by supply specialist doctor Chris Velasquez. the patient was recently discharged from this facility, she continue to come to Emergency room with chest pain, back pain and arm pain, Discussed She is been evaluated continuously in Emergency room she comes and is given Dilaudid IV and return at the very next day with Pain, as discussed with Doctor Lazaro Teague Emergency Medicine he does not think the patient has a real Sickle cell pain crisis, she has important Drug Seeking behavior, denies having any cough, congestion, fever, chills, or shortness of breath. She denies having any dysuria, hematuria, urinary urgency or frequency. no new laboratory performed in Emergency room due to multiple labs taken all this days. seen in Emergency room, in No acute distress. asking for Dilaudid and Benadryl to be given Together. 08/25: Seen in her bedroom in the presence of nurse miss Valencia, improving her pain. 08/26: Seen in the room in the presence of Nurse Miss Yang and Training nurse Miss Moncada present at all times while I was in the room, patient continue asking for the medicines Benadryl and Dilaudid given together, explained to the nurses that Benadryl is given previous to Dilaudid to prevent itching but not for Synergy, she asks to be given Methadone at Discharge she will need to follow with her publishing specialist and Pain medicine to continue this medicine No Nausea, vomit or diarrhea, but states continue in pain and do not want to go today will see how she feels tomorrow. 08/27: Stable initially states she needs to be seen by publishing specialist because she is not improving, as per nurse Miss Moncada the patient is been singing in the room, but at this time states she continue in pain and the need for specialized management, given one dose of Pain medicine and consulted publishing specialist. asked for new laboratory. discussed Potassium management will continue IV replacement she does not want to take this medicine by Mouth. Objective Vital Signs Date Time Temp Pulse Resp B/P Pulse Ox O2 Delivery O2 Flow Rate FiO2 08/27/16 12:10 98.7 72 18 112/66 96 08/27/16 07:48 97.8 76 18 98/52 92 08/26/16 20:00 98.0 60 20 117/79 97 08/26/16 16:17 98.7 86 18 135/84 94 I/O 08/26/16 08/26/16 08/26/16 08/27/16 08/27/16 08/27/16 07:00 15:00 23:00 07:00 15:00 23:00 Intake Total 1400 ml Balance 1400 ml Intake Oral 500 ml IV Total 900 ml # Voids 4 2 Result Diagram: 08/25/16 1657 08/27/16 1127 Imaging No Imaging studies performed. Procedures No procedures performed Other Results Laboratory Tests Test 08/24/16 08/25/16 08/25/16 08/26/16 17:30 04:31 16:57 03:40 Urine Color LIGHT-YELLOW Urine Turbidity CLEAR Urine pH 7.0 Urine Specific [place] 1.008 Urine Protein NEG mg/dL Urine Glucose (UA) NEG mg/dL Urine Ketones NEG mg/dL Urine Occult Blood NEG Urine Nitrite NEG Urine Bilirubin NEG Urine Urobilinogen 2.0 MG/DL Urine Leukocyte Esterase NEG Urine WBC LESS THAN 1 /hpf Urine Squamous Epithelial 2 /hpf Cells Microscopic Urinalysis Comment CULT NOT INDICATED Neutrophils (%) (Auto) 40.2 % Lymphocytes (%) (Auto) 46.1 % Monocytes (%) (Auto) 8.7 % Eosinophils (%) (Auto) 4.2 % Basophils (%) (Auto) 0.8 % Neutrophils # (Auto) 4.5 TH/MM3 Lymphocytes # (Auto) 5.2 TH/MM3 Monocytes # (Auto) 1.0 TH/MM3 Eosinophils # (Auto) 0.5 TH/MM3 Basophils # (Auto) 0.1 TH/MM3 CBC Comment AUTO DIFF Differential Total Cells 100 Counted Neutrophils % (Manual) 46 % Lymphocytes % 48 % Monocytes % 4 % Eosinophils % 2 % Neutrophils # (Manual) 5.2 TH/MM3 Nucleated Red Blood Cells 1 /100 WBC Differential Comment FINAL DIFF MANUAL Platelet Estimate NORMAL Platelet Morphology Comment NORMAL Sickle Cells 1+ Ovalocytes 1+ Keratocytes OCC Sodium Level 142 MEQ/L Chloride Level 107 MEQ/L Carbon Dioxide Level 27.4 MEQ/L Anion Gap 8 MEQ/L Blood Urea Nitrogen 3 MG/DL Creatinine 0.45 MG/DL Estimat Glomerular Filtration 195 ML/MIN Rate Random Glucose 96 MG/DL Calcium Level 8.3 MG/DL White Blood Count 11.0 TH/MM3 Red Blood Count 2.57 MIL/MM3 Hemoglobin 7.6 GM/DL Hematocrit 22.2 % Mean Corpuscular Volume 86.5 FL Mean Corpuscular Hemoglobin 29.4 PG Mean Corpuscular Hemoglobin 34.0 % Concent Red Cell Distribution Width 20.8 % Platelet Count 405 TH/MM3 Mean Platelet Volume 8.0 FL Magnesium Level 1.9 MG/DL Test 08/27/16 11:27 Potassium Level 3.4 MEQ/L Objective Remarks GENERAL: This is a well-nourished, well-developed patient, in no apparent distress. SKIN: No rashes, ecchymoses or lesions. Cool and dry. HEAD: Atraumatic. Normocephalic. No temporal or scalp tenderness. EYES: Pupils equal round and reactive. Extraocular motions intact. No scleral icterus. No injection or drainage. ENT: Nose without bleeding, purulent drainage or septal hematoma. Throat without erythema, tonsillar hypertrophy or exudate. Uvula midline. Airway patent. NECK: Trachea midline. No JVD or lymphadenopathy. Supple, nontender, no meningeal signs. CARDIOVASCULAR: Regular rate and rhythm without murmurs, gallops, or rubs. RESPIRATORY: Clear to auscultation. Breath sounds equal bilaterally. No wheezes , rales, or rhonchi. GASTROINTESTINAL: Abdomen soft, non-tender, nondistended. No hepato-splenomegaly , or palpable masses. No guarding. MUSCULOSKELETAL: Extremities without clubbing, cyanosis, or edema. No joint tenderness, effusion, or edema noted. No calf tenderness. Negative Homans sign bilaterally. NEUROLOGICAL: Awake and alert. Cranial nerves II through XII intact. Motor and sensory grossly within normal limits. Five out of 5 muscle strength in all muscle groups. Normal speech. Medications and IVs Current Medications Medications (Trade) Dose Ordered Sig/Marielle Route Start Time Stop Time Status Last Admin Folic Acid 1 mg 1 mg DAILY PO 08/24/16 10:45 08/27/16 09:19 (NS 1000 ml Inj) 1,000 ml @ 100 mls/hr Q10H IV 08/24/16 10:44 08/27/16 04:23 (NS Flush) 2 ml UNSCH PRN IV FLUSH 08/24/16 10:45 08/27/16 11:07 (NS Flush) 2 ml BID IV FLUSH 08/24/16 21:00 (Tylenol) 650 mg Q4H PRN PO 08/24/16 10:45 (Zofran Inj) 4 mg Q6H PRN IVP 08/24/16 10:45 (Dulcolax Supp) 10 mg DAILY PRN RECTAL 08/24/16 10:45 (Colace) 100 mg Q12HR PO 08/24/16 10:45 (Lovenox Inj) 40 mg Q24H SQ 08/24/16 11:00 (Narcan Inj) 0.4 mg UNSCH PRN IV 08/24/16 10:45 (Dilaudid Pf Inj) 1 mg Q4H PRN IV PUSH 08/24/16 11:00 08/27/16 11:07 ([place] 7.5-325 Mg) 1 tab Q4H PRN PO 08/24/16 11:00 08/26/16 03:40 (Benadryl Inj) 25 mg Q4H PRN IV PUSH 08/24/16 11:00 08/27/16 10:30 A/P Assessment and Plan 1-Sickle cell pain crisis: Supportive care with IV fluid hydration, pain management. as per patient is not improving will ask for publishing specialist consult. given one extra dose of Dilaudid. 2. Narcotic dependency and Drug Seeking behavior. she already discussed about her case with Life Coach she is asking for Pain medicines at discharge and was given a list of PCP and Hematology specialists in her Area. 3. Anemia, Hemoglobin 7.6 try not to give blood transfusion only if Hemoglobin below 7. get new laboratory 4. Electrolyte derangement replaced and following. DVT prophylaxis: Lovenox Code Status Full Code Discussed Condition With Patient and Nurses Miss Moncada and web marketing manager. Discharge Planning Once Cleared by publishing specialist. Aldo Fletcher MD Aug 27, 2016 12:53
[2016-08-27] MEDS ORDERED: HYDROmorphone HCL PF 1 MG/ML VIAL IV PUSH ONE (13:30)
[2016-08-27] MEDS: POTASSIUM CHLOR 10 MEQ PREMIX 100 ML IV SCH ×3 (16:46→21:28)
[2016-08-27 17:13] VITALS: BP 130/87; PULSE 84; RESP 18; TEMP 98.8; O2SAT 97
[2016-08-27 20:03] VITALS: BP 108/75; PULSE 86; RESP 20; O2SAT 98
--- NOTE | 2016-08-27 21:27 | MB ---
cc: SILVESTRE FITZPATRICK MD DATE OF CONSULTATION 08/27/[address] Tanner REASON FOR CONSULTATION Hematology is consulted to render opinion regarding patient with sickle-cell disease admitted with pain crisis. HISTORY OF PRESENT ILLNESS Patient is a 30-year-old female with history of sickle-cell disease and frequent hospital visits for pain crisis who presented to hospital again last Friday with increased pain in the chest, low back and leg which is her usual pain. She has had multiple ER visits. She used to come to the clinic every week to get pain medicine and IV hydration. She was recently discharged from hematology clinic. She has not established care with another legal assistant. She was admitted to the hospital early this month with pain crisis. At that time, hemoglobin trended down to 4.5 and she received 2 units of packed blood cell transfusion. She also was noted to have urinary tract infection at that time. When I saw her today, she looked very comfortable. She was sitting on the bed playing with her phone. She denies any chest pressure, denies shortness of breath or cough, denied nausea or vomiting. Her last menstrual period was about 2 or 3 weeks ago. She denies any headache, denies any visual changes. She is asking for more pain medication, but she otherwise has no complaints. PAST MEDICAL HISTORY 1. Sickle-cell disease and frequent pain crisis. 2. Chronic back pain. 3. Depression. 4. Hemosiderosis PAST SURGICAL HISTORY 1. Cholecystectomy, 2. Tonsillectomy, 3. Tubal ligation 4. Port placement. FAMILY HISTORY Sister has sickle-cell disease. SOCIAL HISTORY Denies tobacco or alcohol use. ALLERGIES MORPHINE MEDICATIONS Current - 1. Dilaudid. 2. Lovenox. 3. Folic acid. REVIEW OF SYSTEMS CONSTITUTIONAL: Denies any fever, chills, night sweats or weight loss. EYES: Denies any blurry vision, double vision. ENT: Denies mouth sores pr voice changes. CARDIOVASCULAR: Denies chest pressure or palpitation RESPIRATORY: Denies shortness of breath or cough. GI: Denies any nausea, vomiting, diarrhea or abdominal pain. : No dysuria, hematuria. MUSCULOSKELETAL: As above. HEMATOLOGY: As above. ENDOCRINE: Negative. DERMATOLOGY: Negative. PSYCHIATRIC: Negative. NEUROLOGIC: Negative. PHYSICAL EXAMINATION VITAL SIGNS: Temperature 98.8, blood pressure 130/87, O2 saturation 97, pulse rate of 84. GENERAL: She is alert and oriented x3 in no acute distress. HEENT: Atraumatic, normocephalic. Pupils equal, round and reactive to light. Extraocular muscles intact. No scleral icterus Oropharynx moist mucosa. No lesion or thrush. No mucositis. NECK: No thyromegaly. No palpable masses. LYMPHATICS: No palpable cervical, clavicular, axillary or inguinal lymph node CARDIOVASCULAR: Regular S1-S2, no murmur. LUNGS: Clear to auscultation, bilateral wheezing ___ rhonchi. ABDOMEN: Soft, nontender, could not palpate liver or spleen. EXTREMITIES: No cyanosis or clubbing or edema. BACK: No paravertebral tenderness. SKIN: No rash or petechiae. NEUROLOGIC: Nonfocal. LABORATORY DATA Reviewed ASSESSMENT 1. Sickle-cell disease with frequent hospital visits with complaint of pain crisis. She was admitted earlier this month with pain crisis. At that time, she had a urinary tract infection and hemoglobin trended down to 4.5. She had two units of packed red blood cell transfusion and hemoglobin trended up to 9.5.. Since discharge from hospital, she has been to emergency room multiple times. She used to come to the clinic weekly for hydration and pain medicine. She was recently discharged from hematology clinic. She has not establish care with a hematology yet. When I saw her this afternoon, she looked very comfortable. She does not seem to be in pain. However, she is still asking for me to increase her Dilaudid schedule to every three hours from every four hours. When I talked to the nursing staff, apparently the patient has been singing in the room and talking on the phone when she is not asking for the pain medicine. Her hemoglobin two days ago was 7.6 which is her baseline. She does not appear that she is in significant crisis at this time. I think she is demonstrating drug-seeking behavior. I will check her CBC again tomorrow morning, if her hemoglobin is stable I think she can be discharged home. 2. 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 She is no longer on chelation therapy. 3. Chronic leukocytosis, leukemoid reaction. White blood cell count is stable. 4. Jaundice with chronic hemolysis. Her bilirubin is stable. RECOMMENDATIONS 1. Continue IV fluid hydration, oxygen supplement and pain management. 2. Check a CBC in the morning and, if her hemoglobin is stable, she can be discharged home. 3. The patient has been discharged from [place] hematology clinic. She is supposed to establish care with another legal assistant. Thank you, Dr. Tanner. for asking us see this patient. MD GIOVANA Talavera/ /5:50 PM /9:09 PM CARLA
[2016-08-28] MEDS: HYDROmorphone HCL PF 1 MG/ML VIAL IV PUSH PRN ×4 (01:45→14:27)
[2016-08-28] MEDS: SODIUM CHLOR 0.9% 1000 ML INJ 1,000 ML IV SCH ×2 (01:45→14:27)
[2016-08-28] MEDS: diphenhydrAMINE HCL 50 MG/ML VIAL IV PUSH PRN ×4 (03:03→15:39)
--- NOTE | 2016-08-28 07:50 | HHI.PR ---
Subjective Remarks This is a pleasant 30 y/o Female with Sickle Cell disease, multiple admissions due to Sickle Cell crisis with Anemia, chronic Pain syndrome/Narcotic dependence/Narcotic Seeking Behavior, followed by marketing services specialist doctor Chris Velasquez. the patient was recently discharged from this facility, she continue to come to Emergency room with chest pain, back pain and arm pain, Discussed She is been evaluated continuously in Emergency room she comes and is given Dilaudid IV and return at the very next day with Pain, as discussed with Doctor Lazaro Teague Emergency Medicine he does not think the patient has a real Sickle cell pain crisis, she has important Drug Seeking behavior, denies having any cough, congestion, fever, chills, or shortness of breath. She denies having any dysuria, hematuria, urinary urgency or frequency. no new laboratory performed in Emergency room due to multiple labs taken all this days. seen in Emergency room, in No acute distress. asking for Dilaudid and Benadryl to be given Together. 08/25: Seen in her bedroom in the presence of nurse miss Valencia, improving her pain. 08/26: Seen in the room in the presence of Nurse Miss Yang and Training nurse Miss Monacda present at all times while I was in the room, patient continue asking for the medicines Benadryl and Dilaudid given together, explained to the nurses that Benadryl is given previous to Dilaudid to prevent itching but not for Synergy, she asks to be given Methadone at Discharge she will need to follow with her workers compensation specialist and Pain medicine to continue this medicine No Nausea, vomit or diarrhea, but states continue in pain and do not want to go today will see how she feels tomorrow. 08/27: Stable initially states she needs to be seen by workers compensation specialist because she is not improving, as per nurse Miss Moncada the patient is been singing in the room, but at this time states she continue in pain and the need for specialized management, given one dose of Pain medicine and consulted workers compensation specialist. asked for new laboratory. discussed Potassium management will continue IV replacement she does not want to take this medicine by Mouth. 08/28: Seen in her bedroom in the presence at all times of female nurse Miss Garcia, the patient states she is not feeling well she is been cleared for discharge by workers compensation specialist, Internet Cafe Manager helping her to get a PCP and Hematology on the area, no nausea, vomit or diarrhea. Objective Vital Signs Date Time Temp Pulse Resp B/P Pulse Ox O2 Delivery O2 Flow Rate FiO2 08/28/16 06:23 16 08/27/16 20:03 86 20 108/75 98 08/27/16 17:13 98.8 84 18 130/87 97 08/27/16 12:10 98.7 72 18 112/66 96 I/O 08/27/16 08/27/16 08/27/16 08/28/16 08/28/16 08/28/16 07:00 15:00 23:00 07:00 15:00 23:00 Intake Total 2160 ml Balance 2160 ml Intake Oral 960 ml IV Total 1200 ml # Voids 1 Result Diagram: 08/25/16 1657 08/27/16 1127 Imaging No Imaging performed Procedures No procedures performed Other Results Laboratory Tests Test 08/24/16 08/25/16 08/25/16 08/26/16 17:30 04:31 16:57 03:40 Urine Color LIGHT-YELLOW Urine Turbidity CLEAR Urine pH 7.0 Urine Specific [place] 1.008 Urine Protein NEG mg/dL Urine Glucose (UA) NEG mg/dL Urine Ketones NEG mg/dL Urine Occult Blood NEG Urine Nitrite NEG Urine Bilirubin NEG Urine Urobilinogen 2.0 MG/DL Urine Leukocyte Esterase NEG Urine WBC LESS THAN 1 /hpf Urine Squamous Epithelial 2 /hpf Cells Microscopic Urinalysis Comment CULT NOT INDICATED Neutrophils (%) (Auto) 40.2 % Lymphocytes (%) (Auto) 46.1 % Monocytes (%) (Auto) 8.7 % Eosinophils (%) (Auto) 4.2 % Basophils (%) (Auto) 0.8 % Neutrophils # (Auto) 4.5 TH/MM3 Lymphocytes # (Auto) 5.2 TH/MM3 Monocytes # (Auto) 1.0 TH/MM3 Eosinophils # (Auto) 0.5 TH/MM3 Basophils # (Auto) 0.1 TH/MM3 CBC Comment AUTO DIFF Differential Total Cells 100 Counted Neutrophils % (Manual) 46 % Lymphocytes % 48 % Monocytes % 4 % Eosinophils % 2 % Neutrophils # (Manual) 5.2 TH/MM3 Nucleated Red Blood Cells 1 /100 WBC Differential Comment FINAL DIFF MANUAL Platelet Estimate NORMAL Platelet Morphology Comment NORMAL Sickle Cells 1+ Ovalocytes 1+ Keratocytes OCC Sodium Level 142 MEQ/L Chloride Level 107 MEQ/L Carbon Dioxide Level 27.4 MEQ/L Anion Gap 8 MEQ/L Blood Urea Nitrogen 3 MG/DL Creatinine 0.45 MG/DL Estimat Glomerular Filtration 195 ML/MIN Rate Random Glucose 96 MG/DL Calcium Level 8.3 MG/DL White Blood Count 11.0 TH/MM3 Red Blood Count 2.57 MIL/MM3 Hemoglobin 7.6 GM/DL Hematocrit 22.2 % Mean Corpuscular Volume 86.5 FL Mean Corpuscular Hemoglobin 29.4 PG Mean Corpuscular Hemoglobin 34.0 % Concent Red Cell Distribution Width 20.8 % Platelet Count 405 TH/MM3 Mean Platelet Volume 8.0 FL Magnesium Level 1.9 MG/DL Test 08/27/16 08/27/16 11:18 11:27 Nasal Screen MRSA (PCR) NEGATIVE Potassium Level 3.4 MEQ/L Objective Remarks GENERAL: This is a well-nourished, well-developed patient, in no apparent distress. SKIN: No rashes, ecchymoses or lesions. Cool and dry. HEAD: Atraumatic. Normocephalic. No temporal or scalp tenderness. EYES: Pupils equal round and reactive. Extraocular motions intact. No scleral icterus. No injection or drainage. ENT: Nose without bleeding, purulent drainage or septal hematoma. Throat without erythema, tonsillar hypertrophy or exudate. Uvula midline. Airway patent. NECK: Trachea midline. No JVD or lymphadenopathy. Supple, nontender, no meningeal signs. CARDIOVASCULAR: Regular rate and rhythm without murmurs, gallops, or rubs. RESPIRATORY: Clear to auscultation. Breath sounds equal bilaterally. No wheezes , rales, or rhonchi. GASTROINTESTINAL: Abdomen soft, non-tender, nondistended. No hepato-splenomegaly , or palpable masses. No guarding. MUSCULOSKELETAL: Extremities without clubbing, cyanosis, or edema. No joint tenderness, effusion, or edema noted. No calf tenderness. Negative Homans sign bilaterally. NEUROLOGICAL: Awake and alert. Cranial nerves II through XII intact. Motor and sensory grossly within normal limits. Five out of 5 muscle strength in all muscle groups. Normal speech. Medications and IVs Current Medications Medications (Trade) Dose Ordered Sig/Marielle Route Start Time Stop Time Status Last Admin Folic Acid 1 mg 1 mg DAILY PO 08/24/16 10:45 08/27/16 09:19 (NS 1000 ml Inj) 1,000 ml @ 100 mls/hr Q10H IV 08/24/16 10:44 08/28/16 01:45 (NS Flush) 2 ml UNSCH PRN IV FLUSH 08/24/16 10:45 08/27/16 18:41 (NS Flush) 2 ml BID IV FLUSH 08/24/16 21:00 08/27/16 21:28 (Tylenol) 650 mg Q4H PRN PO 08/24/16 10:45 (Zofran Inj) 4 mg Q6H PRN IVP 08/24/16 10:45 (Dulcolax Supp) 10 mg DAILY PRN RECTAL 08/24/16 10:45 (Colace) 100 mg Q12HR PO 08/24/16 10:45 (Lovenox Inj) 40 mg Q24H SQ 08/24/16 11:00 (Narcan Inj) 0.4 mg UNSCH PRN IV 08/24/16 10:45 (Dilaudid Pf Inj) 1 mg Q4H PRN IV PUSH 08/24/16 11:00 08/28/16 05:52 ([place] 7.5-325 Mg) 1 tab Q4H PRN PO 08/24/16 11:00 08/26/16 03:40 (Benadryl Inj) 25 mg Q4H PRN IV PUSH 08/24/16 11:00 08/28/16 07:26 A/P Assessment and Plan 1-Sickle cell pain crisis: Supportive care with IV fluid hydration, pain management. seen by workers compensation specialist and if Hemoglobin stable today 8.6 cleared for discharge, Dilaudid to by mouth, the patient states she is not feeling well continue present care. 2. Narcotic dependency and Drug Seeking behavior. she already discussed about her case with Internet Cafe Manager she is asking for Pain medicines at discharge and was given a list of PCP and Hematology specialists in her Area. 3. Anemia, Hemoglobin 8.6 try not to give blood transfusion only if Hemoglobin below 7. get new laboratory 4. Electrolyte derangement replaced and following. DVT prophylaxis: Lovenox Code Status Full Code Discussed Condition With Patient and Nurse Miss Garcia also discussed with Internet Cafe Manager. Discharge Planning Cleared by workers compensation specialist. Aldo Fletcher MD Aug 28, 2016 07:50
[2016-08-28 08:34] VITALS: BP 105/58; PULSE 60; RESP 20; TEMP 98.9; O2SAT 100
[2016-08-28] MEDS: SODIUM CHLORIDE 0.9% FLUSH 10 ML FLUSH IV FLUSH SCH (09:00)
[2016-08-28] MEDS: DOCUSATE SODIUM 100 MG CAP PO SCH (09:00)
[2016-08-28] MEDS: FOLIC ACID 1 MG TAB PO SCH (09:06)
[2016-08-28 09:15] LABS: AUTOMATED NEUTROPHIL # 5.8 TH/MM3 (1.8-7.7); BASOPHIL # 0.1 TH/MM3 (0-0.2); BASOPHIL % 0.9 % (0.0-2.0); EOSINOPHIL # 0.7 TH/MM3 (0-0.4); EOSINOPHIL % 5.7 % (0.0-4.0); HEMATOCRIT 26.2 % (35.0-46.0); LYMPH % 36.2 % (9.0-44.0); LYMPHOCYTE # 4.2 TH/MM3 (1.0-4.8); MEAN CELL VOLUME 89.4 FL (80.0-100.0); MEAN CORPUSCULAR HEMOGLOBIN 29.4 PG (27.0-34.0); MEAN CORPUSCULAR HGB CONC 32.9 % (32.0-36.0); MONO % 7.3 % (0.0-8.0); NEUT % 49.9 % (16.0-70.0); PLATELET COUNT 452 TH/MM3 (150-450); RED BLOOD COUNT 2.94 MIL/MM3 (4.00-5.30); RED CELL DISTRIBUTION WIDTH 22.6 % (11.6-17.2); WHITE BLOOD COUNT 11.6 TH/MM3 (4.0-11.0)
[2016-08-28 09:20] LABS: HEMO FLAGS AUTO DIFF
[2016-08-28 09:39] LABS: ANION GAP 8 MEQ/L (5-15); BICARBONATE 26.3 MEQ/L (21.0-32.0); BLOOD UREA NITROGEN 4 MG/DL (7-18); CHLORIDE 105 MEQ/L (98-107); GLOMERULAR FILTRATION RATE 190 ML/MIN (>89); LDH SERUM 562 U/L (84-246); MAGNESIUM 1.7 MG/DL (1.5-2.5); POTASSIUM 3.6 MEQ/L (3.5-5.1); SODIUM (NA) 139 MEQ/L (136-145)
[2016-08-28 09:58] LABS: CORRECTED NUCLEATED RBC 2 /100 WBC (0-0); EOSINOPHILS 6 % (0-4); NEUTROPHIL # MANUAL DIFF 6.5 TH/MM3 (1.8-7.7); POLYCHROMASIA 3.2 % (0.0-1.9); POLYS (SEG NEUTROPHILS) 56 % (16-70); WBC DIFF SAMPLE 100
[2016-08-28 09:59] LABS: HOWELL-JOLLY BODIES PRESENT (NONE SEEN); PLATELET ESTIMATE SMEAR HIGH (NORMAL); PLATELET MORPHOLOGY NORMAL (NORMAL); SCAN/DIFF FINAL DIFF MANUAL; SICKLE CELLS 1+ (NORMAL); TARGET CELLS 1+ (NORMAL); TEARDROP RBCS 1+ (NORMAL)
[2016-08-28] MEDS: ENOXAPARIN SODIUM 40 MG/0.4 ML SYRINGE SQ SCH (11:00)
[2016-08-28 11:57] VITALS: BP 109/69; PULSE 72; RESP 18; TEMP 97.9; O2SAT 100
--- NOTE | 2016-08-28 13:30 | PD.ONC.PN ---
Subjective Subjective Remarks Afebrile overnight. Patient resting comfortably. She states she still has pain in her back and legs, although reports that it is improving. Objective Data Date Time Temp Pulse Resp B/P Pulse Ox O2 Delivery O2 Flow Rate FiO2 08/28/16 11:57 97.9 72 18 109/69 100 08/28/16 08:34 98.9 60 20 105/58 100 08/28/16 06:23 16 08/27/16 20:03 86 20 108/75 98 08/27/16 17:13 98.8 84 18 130/87 97 Result Diagram: 08/28/16 0804 08/28/16 0804 Laboratory Results Laboratory Tests Test 08/28/16 08:04 White Blood Count 11.6 TH/MM3 Red Blood Count 2.94 MIL/MM3 Hemoglobin 8.6 GM/DL Hematocrit 26.2 % Mean Corpuscular Volume 89.4 FL Mean Corpuscular Hemoglobin 29.4 PG Mean Corpuscular Hemoglobin 32.9 % Concent Red Cell Distribution Width 22.6 % Platelet Count 452 TH/MM3 Mean Platelet Volume 8.5 FL Neutrophils (%) (Auto) 49.9 % Lymphocytes (%) (Auto) 36.2 % Monocytes (%) (Auto) 7.3 % Eosinophils (%) (Auto) 5.7 % Basophils (%) (Auto) 0.9 % Neutrophils # (Auto) 5.8 TH/MM3 Lymphocytes # (Auto) 4.2 TH/MM3 Monocytes # (Auto) 0.9 TH/MM3 Eosinophils # (Auto) 0.7 TH/MM3 Basophils # (Auto) 0.1 TH/MM3 CBC Comment AUTO DIFF Differential Total Cells 100 Counted Neutrophils % (Manual) 56 % Lymphocytes % 31 % Monocytes % 7 % Eosinophils % 6 % Neutrophils # (Manual) 6.5 TH/MM3 Nucleated Red Blood Cells 2 /100 WBC Differential Comment FINAL DIFF MANUAL Platelet Estimate HIGH Platelet Morphology Comment NORMAL Polychromasia 3.2 % Sickle Cells 1+ Target Cells 1+ Tear Drop Cells 1+ Fields-Everest Bodies PRESENT Red Cell Morphology Comment Sodium Level 139 MEQ/L Potassium Level 3.6 MEQ/L Chloride Level 105 MEQ/L Carbon Dioxide Level 26.3 MEQ/L Anion Gap 8 MEQ/L Blood Urea Nitrogen 4 MG/DL Creatinine 0.46 MG/DL Estimat Glomerular Filtration 190 ML/MIN Rate Random Glucose 82 MG/DL Calcium Level 8.6 MG/DL Phosphorus Level 4.3 MG/DL Magnesium Level 1.7 MG/DL Lactate Dehydrogenase 562 U/L C-Reactive Protein LESS THAN 0.29 MG/DL Administered Medications Medications (Trade) Dose Ordered Sig/Marielle Route PRN Reason Start Time Stop Time Status Last Admin Dose Admin Folic Acid 1 mg 1 mg DAILY PO 08/24/16 10:45 08/28/16 09:06 Sodium Chloride (NS 1000 ml Inj) 1,000 ml @ 100 mls/hr Q10H IV 08/24/16 10:44 08/28/16 01:45 Sodium Chloride (NS Flush) 2 ml UNSCH PRN IV FLUSH FLUSH AFTER USING IV ACCESS 08/24/16 10:45 08/27/16 18:41 Sodium Chloride (NS Flush) 2 ml BID IV FLUSH 08/24/16 21:00 08/27/16 21:28 Hydromorphone HCl (Dilaudid Pf Inj) 1 mg Q4H PRN IV PUSH PAIN SCALE 6 TO 10 08/24/16 11:00 08/28/16 10:03 Acetaminophen/ Hydrocodone Bitart (Jansen 7.5-325 Mg) 1 tab Q4H PRN PO PAIN SCALE 1 TO 5 08/24/16 11:00 08/26/16 03:40 Diphenhydramine HCl (Benadryl Inj) 25 mg Q4H PRN IV PUSH ITCHING 08/24/16 11:00 08/28/16 11:30 Objective Remarks GENERAL: Young woman, sitting up in bed in nad, listening to music on her phone SKIN: Warm and dry. HEAD: Normocephalic. EYES: No injection or drainage. NECK: Supple, trachea midline. CARDIOVASCULAR: Regular rate and rhythm RESPIRATORY: Breath sounds equal bilaterally. No accessory muscle use. GASTROINTESTINAL: Abdomen soft, non-tender, nondistended. EXTREMITIES: No cyanosis NEUROLOGICAL: No obvious focal deficit. Awake, alert, and oriented x3. Assessment/Plan Problem List: (1) Sickle cell disease Status: Chronic Plan: --IVF, pain medications, supportive care Assessment 30y/o female with sickle cell disease admitted for pain crisis Plan 1. hematology clear for discharge. 2. patient needs to arrange follow up with a new closing supervisor. he has been discharged from our clinic. Attending Statement The exam, history, and the medical decision-making described in the above note were completed with the assistance of the mid-level provider. I reviewed and agree with the findings presented. I attest that I had a [id number] encounter with the patient on the same day, and personally performed and documented my assessment and findings in the medical record. Pt appears comfortable. Hgb up to 8.6, CRP normal. No significant hemolysis noted. She can be d/c from hematology standpoint. Problem Qualifiers (1) Sickle cell disease: Qualified Code: D57.00 - Hb-SS disease with crisis Ledy Hogan Aug 28, 2016 13:30 Juan Perez MD Aug 28, 2016 17:05
[2016-08-28] MEDS ORDERED: HYDROmorphone HCL 4 MG TAB PO PRN (14:45)
[2016-08-28] MEDS ORDERED: POTASSIUM CHLORIDE 20 MEQ CONTROLLED RELEASE TAB PO ONE (15:00)
[2016-08-28 15:49] VITALS: BP 119/71; PULSE 76; RESP 20; TEMP 98.5; O2SAT 100
[2016-08-28] MEDS ORDERED: POTASSIUM CHLOR 20 MEQ PREMIX 100 ML IV ONE (16:45)
[2016-08-28] MEDS ORDERED: DILA4TAB2 PO (17:05)
--- NOTE | 2016-08-28 17:07 | HHI.DS ---
Discharge Summary Admission Date Aug 24, 2016 at 10:19 Discharge Date: Aug 28, 2016 Admitting Diagnosis sickle cell crisis (1) Sickle cell pain crisis ICD Code: D57.00 Diagnosis: Principal Procedures No procedures performed. Brief History - From Admission This is a pleasant 30 y/o Female with Sickle Cell disease, multiple admissions due to Sickle Cell crisis with Anemia, chronic Pain syndrome/Narcotic dependence/Narcotic Seeking Behavior, followed by claim benefit specialist doctor Chris Velasquez. the patient was recently discharged from this facility, she continue to come to Emergency room with chest pain, back pain and arm pain, Discussed She is been evaluated continuously in Emergency room she comes and is given Dilaudid IV and return at the very next day with Pain, as discussed with Doctor Lazaro Teague Emergency Medicine he does not think the patient has a real Sickle cell pain crisis, she has important Drug Seeking behavior, denies having any cough, congestion, fever, chills, or shortness of breath. She denies having any dysuria, hematuria, urinary urgency or frequency. no new laboratory performed in Emergency room due to multiple labs taken all this days. seen in Emergency room, in No acute distress. asking for Dilaudid and Benadryl to be given Together. CBC/BMP: 08/28/16 0804 08/28/16 0804 Significant Findings Laboratory Tests Test 08/26/16 08/26/16 08/27/16 08/28/16 03:40 15:34 11:27 08:04 Potassium Level 3.3 MEQ/L 3.2 MEQ/L 3.4 MEQ/L (3.5-5.1) (3.5-5.1) (3.5-5.1) White Blood Count 11.6 TH/MM3 (4.0-11.0) Red Blood Count 2.94 MIL/MM3 (4.00-5.30) Hemoglobin 8.6 GM/DL (11.6-15.3) Hematocrit 26.2 % (35.0-46.0) Red Cell Distribution Width 22.6 % (11.6-17.2) Platelet Count 452 TH/MM3 (150-450) Eosinophils (%) (Auto) 5.7 % (0.0-4.0) Eosinophils # (Auto) 0.7 TH/MM3 (0-0.4) Eosinophils % 6 % (0-4) Nucleated Red Blood Cells 2 /100 WBC (0-0) Platelet Estimate HIGH (NORMAL) Polychromasia 3.2 % (0.0-1.9) Sickle Cells 1+ (NORMAL) Target Cells 1+ (NORMAL) Tear Drop Cells 1+ (NORMAL) Blood Urea Nitrogen 4 MG/DL (7-18) Creatinine 0.46 MG/DL (0.50-1.00) Lactate Dehydrogenase 562 U/L (84-246) Imaging No imaging studies. PE at Discharge GENERAL: This is a well-nourished, well-developed patient, in no apparent distress. SKIN: No rashes, ecchymoses or lesions. Cool and dry. HEAD: Atraumatic. Normocephalic. No temporal or scalp tenderness. EYES: Pupils equal round and reactive. Extraocular motions intact. No scleral icterus. No injection or drainage. ENT: Nose without bleeding, purulent drainage or septal hematoma. Throat without erythema, tonsillar hypertrophy or exudate. Uvula midline. Airway patent. NECK: Trachea midline. No JVD or lymphadenopathy. Supple, nontender, no meningeal signs. CARDIOVASCULAR: Regular rate and rhythm without murmurs, gallops, or rubs. RESPIRATORY: Clear to auscultation. Breath sounds equal bilaterally. No wheezes , rales, or rhonchi. GASTROINTESTINAL: Abdomen soft, non-tender, nondistended. No hepato-splenomegaly , or palpable masses. No guarding. MUSCULOSKELETAL: Extremities without clubbing, cyanosis, or edema. No joint tenderness, effusion, or edema noted. No calf tenderness. Negative Homans sign bilaterally. NEUROLOGICAL: Awake and alert. Cranial nerves II through XII intact. Motor and sensory grossly within normal limits. Five out of 5 muscle strength in all muscle groups. Normal speech. Hospital Course This is a pleasant 30 y/o Female with Sickle Cell disease, multiple admissions due to Sickle Cell crisis with Anemia, chronic Pain syndrome/Narcotic dependence/Narcotic Seeking Behavior, followed by claim benefit specialist doctor Chris Velasquez. the patient was recently discharged from this facility, she continue to come to Emergency room with chest pain, back pain and arm pain, Discussed She is been evaluated continuously in Emergency room she comes and is given Dilaudid IV and return at the very next day with Pain, as discussed with Doctor Lazaro Teague Emergency Medicine he does not think the patient has a real Sickle cell pain crisis, she has important Drug Seeking behavior, denies having any cough, congestion, fever, chills, or shortness of breath. She denies having any dysuria, hematuria, urinary urgency or frequency. no new laboratory performed in Emergency room due to multiple labs taken all this days. seen in Emergency room, in No acute distress. asking for Dilaudid and Benadryl to be given Together. 08/25: Seen in her bedroom in the presence of nurse Annie, improving her pain. 08/26: Seen in the room in the presence of Nurse Miss Yang and Training nurse Miss Moncada present at all times while I was in the room, patient continue asking for the medicines Benadryl and Dilaudid given together, explained to the nurses that Benadryl is given previous to Dilaudid to prevent itching but not for Synergy, she asks to be given Methadone at Discharge she will need to follow with her revenue specialist and Pain medicine to continue this medicine No Nausea, vomit or diarrhea, but states continue in pain and do not want to go today will see how she feels tomorrow. 08/27: Stable initially states she needs to be seen by revenue specialist because she is not improving, as per nurse Miss Moncada the patient is been singing in the room, but at this time states she continue in pain and the need for specialized management, given one dose of Pain medicine and consulted revenue specialist. asked for new laboratory. discussed Potassium management will continue IV replacement she does not want to take this medicine by Mouth. 08/28: Seen in her bedroom in the presence at all times of female nurse Radha, the patient states she is not feeling well she is been cleared for discharge by revenue specialist, Rolled Seat Trimmer helping her to get a PCP and Hematology on the area, no nausea, vomit or diarrhea. Assessment and Plan 1-Sickle cell pain crisis: Supportive care with IV fluid hydration, pain management. seen by revenue specialist and if Hemoglobin stable today 8.6 cleared for discharge, Dilaudid to by mouth, the patient states she is not feeling well continue present care. 2. Narcotic dependency and Drug Seeking behavior. she already discussed about her case with Rolled Seat Trimmer she is asking for Pain medicines at discharge and was given a list of PCP and Hematology specialists in her Area. 3. Anemia, Hemoglobin 8.6 try not to give blood transfusion only if Hemoglobin below 7. get new laboratory 4. Electrolyte derangement replaced and following. DVT prophylaxis: Lovenox Code Status Full Code Discussed Condition With Patient and Nurse Miss Garcia also discussed with Rolled Seat Trimmer. Discharge Planning Cleared by revenue specialist. Pt Condition on Discharge: Good Discharge Disposition: Discharge Home Discharge Time: <= 30 minutes Discharge Instructions DIET: Follow Instructions for: As Tolerated, No Restrictions Activities you can perform: Regular-No Restrictions Aldo Fletcher MD Aug 28, 2016 17:07
== END 2016-08-28 18:27 | disposition home or self-care (01) | DRG 812 ==
LOC: NEPE 06:46 → OBSVTOIN 10:19 → NEDA 10:19 → NEPGCP 11:43
PROVIDERS: ADMIT Internal Medicine; ATTEND Internal Medicine
DX: D57.00 Hb-SS disease with crisis, unspecified (principal); F11.20 Opioid dependence, uncomplicated; R17 Unspecified jaundice; D72.823 Leukemoid reaction; G89.4 Chronic pain syndrome; Z76.5 Malingerer [conscious simulation]
CPT/HCPCS: 71010; 80048; 80053; 81001; 83615; 83735; 84100; 84132; 84702; 85007; 85025; 85027; 85044; 86140; 87641; 96374; 96375; 96376; 99283; J1170; J1200; J1642; J3475; J3480; J7030

== ENCOUNTER 2016-08-31 02:39 | Emergency (ER) | payer OTHER ==
[~2016-08-31] VITALS: Ht 167.6 cm; Wt 58.0 kg
[~2016-08-31 02:39] MED LIST changes: +DILA4TAB2 PO; +METH5TAB PO
[2016-08-31 02:42] VITALS: BP 123/76; PULSE 107; RESP 15; TEMP 99; O2SAT 99
[2016-08-31] MEDS ORDERED: SODIUM CHLOR 0.9% 1000 ML INJ 1,000 ML IV ONE (04:20)
--- NOTE | 2016-08-31 04:26 | PD ---
HPI Chief Complaint: Sickle Cell Time Seen by Provider: 04:07 Travel History International Travel<30 days: No Contact w/Intl Traveler<30days: No Traveled to known affect area: No History of Present Illness HPI The patient is a 30-year-old after [place] female who presents to the emergency department for sickle cell vaso-occlusive crisis. The patient has a history of sickle cell, multiple visits to emergency department with recent admission for sickle cell crisis. The patient was evaluated in the hospital by the oncologist, Dr. Perez. The patient has been recently discharged from the local oncology/hematology practice and is currently trying to get follow-up with another lube man for her primary physician. The patient states she was prescribed Dilaudid at discharge, but was unable to fill the Dilaudid secondary to monetary reasons. The patient is currently complaining of low back pain, joint pain, and chest pain, which she states her normal symptoms for sickle cell crisis. The patient also complains of intermittent abdominal pain located in the right upper quadrant, however, has been having normal bowel movements. She denies any dysuria, frequency, or urgency. She notes previous tubal ligation and denies . The patient has also had a previous cholecystectomy. PFSH Past Medical History Hx Anticoagulant Therapy: No Anemia: Yes Arthritis: No Asthma: No Autoimmune Disease: No Blood Disorders: No Anxiety: No Depression: No Cancer: No Cardiovascular Problems: No Chemotherapy: No Chest Pain: Yes Congestive Heart Failure: No COPD: No Cerebrovascular Accident: No Diabetes: No Diminished Hearing: No Endocrine: No Gastrointestinal Disorders: Yes (GALLSTONES) GERD: No Genitourinary: No Headaches: Yes Hiatal Hernia: No Immune Disorder: Yes (SICKLE CELL) Implanted Vascular Access Dvce: Yes (RIGHT CHEST ) Insomnia: Yes Kidney Stones: No Musculoskeletal: No Neurologic: No Psychiatric: No Reproductive: No Respiratory: No Immunizations Current: Yes Migraines: No Pneumonia: Yes Radiation Therapy: No Renal Failure: No Seizures: No Sickle Cell Disease: Yes Thyroid Disease: No Ulcer: No Tetanus Vaccination: < 5 Years Influenza Vaccination: Yes PNEUMOCCOCAL Vaccine (Year): 2 ?: Not : 2 Para: 1 Miscarriage: 1 : 0 Tubal Ligation: Yes Past Surgical History Abdominal Surgery: Yes AICD: No Arteriovenous Shunt: No Body Medical Devices: MEDPORT Cardiac Surgery: No Section: Yes Cholecystectomy: Yes Ear Surgery: No Endocrine Surgery: No Eye Surgery: No Genitourinary Surgery: No Gynecologic Surgery: Yes Hysterectomy: Yes Insulin Pump: No Joint Replacement: No Oral Surgery: Yes Pacemaker: No Thoracic Surgery: Yes (CHEST PORT ) Tonsillectomy: Yes Other Surgery: Yes (RIGHT CHEST INFUSAPORT ) Social History Alcohol Use: No Tobacco Use: No Substance Use: No Allergies-Medications (Allergen,Severity, Reaction): Coded Allergies: Morphine (Verified Allergy, Severe, RASH, 08/24/16) *MDRO Multi-Drug Resistant Organism (Verified Adverse Reaction, Unknown, MRSA, 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 Hydrocodone-Acetaminophen 7.5-325 mg Tab 1 Tab PO Q6H PRN Folate (Folic Acid) 1 Mg Tab 1 Mg PO DAILY Reported Methadone (Methadone HCl) 5 Mg Tab 5 Mg PO TID Review of Systems Except as stated in HPI: all other systems reviewed are Neg General / Constitutional: No: Fever Cardiovascular: No: Chest Pain or Discomfort Respiratory: No: Shortness of Breath Gastrointestinal: Positive: Abdominal Pain, No: Nausea, Vomiting Genitourinary: No: Dysuria Musculoskeletal: Positive: Myalgias, Arthralgias, Pain Physical Exam Narrative GENERAL: Awake, alert, 30-year-old female who appears her stated age and is in no acute respiratory distress. SKIN: Focused skin assessment warm/dry. HEAD: Atraumatic. Normocephalic. EYES: Pupils equal and round. Minimal icterus. ENT: No nasal bleeding or discharge. Mucous membranes pink and moist. NECK: Trachea midline. No JVD. CARDIOVASCULAR: Regular rate and rhythm. No murmur appreciated. Port in place right upper chest wall. RESPIRATORY: No accessory muscle use. Clear to auscultation. Breath sounds equal bilaterally. GASTROINTESTINAL: Abdomen soft, non-tender, nondistended. No rebound tenderness. Back: No CVA tenderness. MUSCULOSKELETAL: No obvious deformities. No clubbing. No cyanosis. No edema. NEUROLOGICAL: Awake and alert. No obvious cranial nerve deficits. Motor grossly within normal limits. Normal speech. PSYCHIATRIC: Appropriate mood and affect; insight and judgment normal. Data Data Last Documented VS Vital Signs Date Time Temp Pulse Resp B/P Pulse Ox O2 Delivery O2 Flow Rate FiO2 08/31/16 02:42 99.0 107 15 123/76 99 Room Air Orders Complete Blood Count With Diff (08/31/16 04:20) Retic Count (08/31/16 04:20) Ecg Monitoring (08/31/16 04:20) Iv Access Insert/Monitor (08/31/16 04:20) Oximetry (08/31/16 04:20) Hydromorphone Pf Inj (Dilaudid Pf Inj) (08/31/16 04:30) Ondansetron Inj (Zofran Inj) (08/31/16 04:30) Sodium Chloride 0.9% Flush (Ns Flush) (08/31/16 04:30) Sodium Chlor 0.9% 1000 Ml Inj (Ns 1000 M (08/31/16 04:20) Diphenhydramine Inj (Benadryl Inj) (08/31/16 04:30) Heparin Central Flush (Heparin Central F (08/31/16 04:30) Sodium Chloride 0.9% Flush (Ns Flush) (08/31/16 04:30) Heparin Central Flush (Heparin Central F (08/31/16 04:30) Labs Laboratory Tests Test 08/31/16 04:37 White Blood Count 8.6 TH/MM3 Red Blood Count 2.44 MIL/MM3 Hemoglobin 7.5 GM/DL Hematocrit 21.2 % Mean Corpuscular Volume 87.1 FL Mean Corpuscular Hemoglobin 30.8 PG Mean Corpuscular Hemoglobin 35.4 % Concent Red Cell Distribution Width 20.4 % Platelet Count 367 TH/MM3 Mean Platelet Volume 8.4 FL Neutrophils (%) (Auto) 52.1 % Lymphocytes (%) (Auto) 32.2 % Monocytes (%) (Auto) 12.0 % Eosinophils (%) (Auto) 2.8 % Basophils (%) (Auto) 0.9 % Neutrophils # (Auto) 4.5 TH/MM3 Lymphocytes # (Auto) 2.8 TH/MM3 Monocytes # (Auto) 1.0 TH/MM3 Eosinophils # (Auto) 0.2 TH/MM3 Basophils # (Auto) 0.1 TH/MM3 CBC Comment AUTO DIFF Reticulocyte Count 3.2 % Absolute Reticulocyte Count 77.7 MIL/L MDM Medical Decision Making Medical Screen Exam Complete: Yes Emergency Medical Condition: Yes Medical Record Reviewed: Yes Interpretation(s) Laboratory Tests Test 08/31/16 04:37 White Blood Count 8.6 TH/MM3 Red Blood Count 2.44 MIL/MM3 Hemoglobin 7.5 GM/DL Hematocrit 21.2 % Mean Corpuscular Volume 87.1 FL Mean Corpuscular Hemoglobin 30.8 PG Mean Corpuscular Hemoglobin 35.4 % Concent Red Cell Distribution Width 20.4 % Platelet Count 367 TH/MM3 Mean Platelet Volume 8.4 FL Neutrophils (%) (Auto) 52.1 % Lymphocytes (%) (Auto) 32.2 % Monocytes (%) (Auto) 12.0 % Eosinophils (%) (Auto) 2.8 % Basophils (%) (Auto) 0.9 % Neutrophils # (Auto) 4.5 TH/MM3 Lymphocytes # (Auto) 2.8 TH/MM3 Monocytes # (Auto) 1.0 TH/MM3 Eosinophils # (Auto) 0.2 TH/MM3 Basophils # (Auto) 0.1 TH/MM3 CBC Comment AUTO DIFF Reticulocyte Count 3.2 % Absolute Reticulocyte Count 77.7 MIL/L Differential Diagnosis Differential diagnosis includes vaso-occlusive crisis, symptomatic anemia, hemolytic anemia, drug-seeking behavior, malingering. Narrative Course The patient's port was accessed, labs are drawn and sent, and the patient was placed on cardiac telemetry monitoring and continuous pulse oximetry monitoring. CBC and reticulocyte count were sent to lab. The patient was administered Dilaudid, Zofran, Benadryl, and IV fluids. I reviewed the patient' s previous hospitalization notes by Dr. Tanner and Dr. Perez, it appears they thought the patient possibly had drug-seeking behavior as she appeared very comfortable and always requested Benadryl with Dilaudid. The patient is currently tachycardic with a heart rate of 105 on initial vitals, during examination a heart rate was in the 80s. Patient was administered Dilaudid, Benadryl, Zofran, and IV fluids. The patient's hemoglobin was 7.5, reticulin count was elevated at 3.2, appropriate. The patient was monitored in the emergency department. The patient was reevaluated at 5:13 AM, her heart rate was 88, O2 sat 96%, she appeared comfortable and was listening to music on her cell phone. Diagnosis Primary Impression: Sickle cell pain crisis Condition: Stable Markus Villarreal MD Aug 31, 2016 04:26
[2016-08-31] MEDS ORDERED: HYDROmorphone HCL PF 2 MG/ML VIAL IVS ONE (04:30)
[2016-08-31] MEDS ORDERED: ONDANSETRON HCL 4 MG/2 ML VIAL IVP ONE (04:30)
[2016-08-31] MEDS ORDERED: SODIUM CHLORIDE 0.9% FLUSH 10 ML FLUSH IVF PRN ×2 (04:30)
[2016-08-31] MEDS ORDERED: diphenhydrAMINE HCL 50 MG/ML VIAL IV ONE (04:30)
[2016-08-31 04:54] LABS: AUTOMATED NEUTROPHIL # 4.5 TH/MM3 (1.8-7.7); BASOPHIL # 0.1 TH/MM3 (0-0.2); BASOPHIL % 0.9 % (0.0-2.0); EOSINOPHIL # 0.2 TH/MM3 (0-0.4); EOSINOPHIL % 2.8 % (0.0-4.0); HEMATOCRIT 21.2 % (35.0-46.0); LYMPH % 32.2 % (9.0-44.0); LYMPHOCYTE # 2.8 TH/MM3 (1.0-4.8); MEAN CELL VOLUME 87.1 FL (80.0-100.0); MEAN CORPUSCULAR HEMOGLOBIN 30.8 PG (27.0-34.0); MEAN CORPUSCULAR HGB CONC 35.4 % (32.0-36.0); NEUT % 52.1 % (16.0-70.0); PLATELET COUNT 367 TH/MM3 (150-450); RED BLOOD COUNT 2.44 MIL/MM3 (4.00-5.30); RED CELL DISTRIBUTION WIDTH 20.4 % (11.6-17.2); RETIC % 3.2 % (0.4-3.0); WHITE BLOOD COUNT 8.6 TH/MM3 (4.0-11.0)
[2016-08-31 04:56] LABS: HEMO FLAGS AUTO DIFF; REVIEW FLAG AUTO DIFF
[2016-08-31 05:15] VITALS: PULSE 86; RESP 16; O2SAT 96
[2016-08-31 05:26] LABS: SCAN/DIFF AUTO DIFF CONFIRMED; SICKLE CELLS 1+ (NORMAL)
[2016-08-31 05:27] LABS: HOWELL-JOLLY BODIES PRESENT (NONE SEEN)
[2016-08-31] MEDS ORDERED: HYDROmorphone HCL PF 2 MG/ML VIAL IV PUSH ONE (05:45)
== END 2016-08-31 07:24 | disposition home or self-care (01) ==
LOC: NEPC 02:39
DX: D57.00 Hb-SS disease with crisis, unspecified (principal); M54.5 Low back pain; M25.50 Pain in unspecified joint; R07.9 Chest pain, unspecified; R10.11 Right upper quadrant pain; Z86.2 Personal history of diseases of the blood and blood-forming organs and certain disorders involving the immune mechanism; Z87.19 Personal history of other diseases of the digestive system; Z87.01 Personal history of pneumonia (recurrent)
CPT/HCPCS: 85025; 85044; 96361; 96374; 96375; 96376; 99284; J1170; J1200; J1642; J2405; J7030

== ENCOUNTER 2016-09-05 02:44 | Emergency (ER) | payer OTHER ==
[~2016-09-05] VITALS: Ht 152.4 cm; Wt 58.0 kg
[2016-09-05 02:46] VITALS: BP 126/73; PULSE 106; RESP 18; TEMP 98.9; O2SAT 99
--- NOTE | 2016-09-05 02:52 | PD ---
HPI Chief Complaint: Sickle Cell Time Seen by Provider: 02:52 Travel History International Travel<30 days: No Contact w/Intl Traveler<30days: No Traveled to known affect area: No History of Present Illness HPI 30-year-old female came to the emergency room with history of sickle cell painful crisis. Patient has been in the emergency room multiple times for her sickle cell pain related crisis. She says she is taking Folic acid. Her team facilitator Dr. Del Castillo has retired and currently she has an appointment with another team facilitator in a week. Meanwhile the pain started last night. She describes the pain all over her body. She was mildly tachycardic in triage. PFSH Past Medical History Narrative Medical List of her past medical, surgical, social and family history was reviewed from the nursing note. Hx Anticoagulant Therapy: No Anemia: Yes Arthritis: No Asthma: No Autoimmune Disease: No Blood Disorders: No Anxiety: No Depression: No Cancer: No Cardiovascular Problems: No Chemotherapy: No Chest Pain: Yes Congestive Heart Failure: No COPD: No Cerebrovascular Accident: No Diabetes: No Diminished Hearing: No Endocrine: No Gastrointestinal Disorders: Yes (GALLSTONES) GERD: No Genitourinary: No Headaches: Yes Hiatal Hernia: No Immune Disorder: Yes (SICKLE CELL) Implanted Vascular Access Dvce: Yes (RIGHT CHEST ) Insomnia: Yes Kidney Stones: No Musculoskeletal: No Neurologic: No Psychiatric: No Reproductive: No Respiratory: No Immunizations Current: Yes Migraines: No Pneumonia: Yes Radiation Therapy: No Renal Failure: No Seizures: No Sickle Cell Disease: Yes Thyroid Disease: No Ulcer: No Influenza Vaccination: Yes PNEUMOCCOCAL Vaccine (Year): 2 ?: Not : 2 Para: 1 Miscarriage: 1 : 0 Tubal Ligation: Yes Past Surgical History Abdominal Surgery: Yes AICD: No Arteriovenous Shunt: No Body Medical Devices: MEDPORT Cardiac Surgery: No Section: Yes Cholecystectomy: Yes Ear Surgery: No Endocrine Surgery: No Eye Surgery: No Genitourinary Surgery: No Gynecologic Surgery: Yes Hysterectomy: Yes Insulin Pump: No Joint Replacement: No Oral Surgery: Yes Pacemaker: No Thoracic Surgery: Yes (CHEST PORT ) Tonsillectomy: Yes Other Surgery: Yes (RIGHT CHEST INFUSAPORT ) Social History Alcohol Use: No Tobacco Use: No Substance Use: No Allergies-Medications (Allergen,Severity, Reaction): Coded Allergies: Morphine (Verified Allergy, Severe, RASH, 4/27/17) *MDRO Multi-Drug Resistant Organism (Verified Adverse Reaction, Unknown, MRSA, 09/05/16) MRSA (blood) - 12/18/2004 Comments List of her allergies reviewed from the nursing note. Reported Meds & Prescriptions Reported Meds & Active Scripts Active Folate (Folic Acid) 1 Mg Tab 1 Mg PO DAILY Narrative Medication List of her home medications reviewed from the nursing note. Review of Systems Except as stated in HPI: all other systems reviewed are Neg Physical Exam Narrative GENERAL: Awake, alert, no obvious distress SKIN: Focused skin assessment warm/dry. HEAD: Atraumatic. Normocephalic. EYES: Pupils equal and round. No scleral icterus. No injection or drainage. ENT: No nasal bleeding or discharge. Mucous membranes pink and moist. NECK: Trachea midline. No JVD. CARDIOVASCULAR: Regular rate and rhythm. No murmur appreciated. RESPIRATORY: No accessory muscle use. Clear to auscultation. Breath sounds equal bilaterally. GASTROINTESTINAL: Abdomen soft, non-tender, nondistended. Hepatic and splenic margins not palpable. MUSCULOSKELETAL: No obvious deformities. No clubbing. No cyanosis. No edema. NEUROLOGICAL: Awake and alert. No obvious cranial nerve deficits. Motor grossly within normal limits. Normal speech. PSYCHIATRIC: Appropriate mood and affect; insight and judgment normal. Data Data Last Documented VS Vital Signs Date Time Temp Pulse Resp B/P Pulse Ox O2 Delivery O2 Flow Rate FiO2 09/05/16 02:46 98.9 106 18 126/73 99 Orders Complete Blood Count With Diff (09/05/16 03:07) Retic Count (09/05/16 03:07) Hydromorphone Pf Inj (Dilaudid Pf Inj) (09/05/16 03:15) Sodium Chlor 0.9% 1000 Ml Inj (Ns 1000 M (09/05/16 03:15) Heparin Central Flush (Heparin Central F (09/05/16 05:15) Labs Laboratory Tests Test 09/05/16 03:38 White Blood Count 12.9 TH/MM3 Red Blood Count 3.04 MIL/MM3 Hemoglobin 8.9 GM/DL Hematocrit 26.5 % Mean Corpuscular Volume 87.3 FL Mean Corpuscular Hemoglobin 29.4 PG Mean Corpuscular Hemoglobin 33.6 % Concent Red Cell Distribution Width 21.3 % Platelet Count 407 TH/MM3 Mean Platelet Volume 9.3 FL Neutrophils (%) (Auto) 60.6 % Lymphocytes (%) (Auto) 28.0 % Monocytes (%) (Auto) 9.6 % Eosinophils (%) (Auto) 1.1 % Basophils (%) (Auto) 0.7 % Neutrophils # (Auto) 7.8 TH/MM3 Lymphocytes # (Auto) 3.6 TH/MM3 Monocytes # (Auto) 1.2 TH/MM3 Eosinophils # (Auto) 0.1 TH/MM3 Basophils # (Auto) 0.1 TH/MM3 CBC Comment DIFF FINAL Differential Comment Reticulocyte Count 9.2 % Absolute Reticulocyte Count 278.9 MIL/L MDM Medical Decision Making Medical Screen Exam Complete: Yes Emergency Medical Condition: Yes Medical Record Reviewed: Yes Differential Diagnosis Sickle cell painful crisis Narrative Course 4:20 AM blood test results are back. Patient is slightly anemic but when trended to her past hemoglobin she has had that in the past as well. We could count is elevated but she has had elevated reticulocyte count in the past as well. I have medicated her for pain and 1 L of IV fluid bolus. I'm ready to discharge her at this point. Procedures EKG Prior to Arrival: No Diagnosis Primary Impression: Sickle cell pain crisis Referrals: Primary Care Physician 2 days Additional Instructions: Please return to the ER if the condition worsens or any other new concerns. Please follow-up with your team facilitator. Med/Other Pt SpecificInfo: No Change to Meds Disposition: 01 DISCHARGE HOME Condition: Stable Iesha Lynn MD Sep 05, 2016 02:52 Iesha Lynn MD Sep 05, 2016 02:52
[2016-09-05] MEDS ORDERED: SODIUM CHLOR 0.9% 1000 ML INJ 1,000 ML IV ONE (03:15)
[2016-09-05] MEDS ORDERED: HYDROmorphone HCL PF 1 MG/ML VIAL IV PUSH ONE (03:15)
[2016-09-05 04:04] LABS: RETIC % 9.2 % (0.4-3.0)
[2016-09-05 04:05] LABS: REVIEW FLAG FINAL
[2016-09-05 04:07] LABS: AUTOMATED NEUTROPHIL # 7.8 TH/MM3 (1.8-7.7); BASOPHIL # 0.1 TH/MM3 (0-0.2); BASOPHIL % 0.7 % (0.0-2.0); EOSINOPHIL # 0.1 TH/MM3 (0-0.4); EOSINOPHIL % 1.1 % (0.0-4.0); HEMATOCRIT 26.5 % (35.0-46.0); HEMO FLAGS DIFF FINAL; LYMPHOCYTE # 3.6 TH/MM3 (1.0-4.8); MEAN CELL VOLUME 87.3 FL (80.0-100.0); MEAN CORPUSCULAR HEMOGLOBIN 29.4 PG (27.0-34.0); MEAN CORPUSCULAR HGB CONC 33.6 % (32.0-36.0); MONO % 9.6 % (0.0-8.0); NEUT % 60.6 % (16.0-70.0); PLATELET COUNT 407 TH/MM3 (150-450); RED BLOOD COUNT 3.04 MIL/MM3 (4.00-5.30); RED CELL DISTRIBUTION WIDTH 21.3 % (11.6-17.2); WHITE BLOOD COUNT 12.9 TH/MM3 (4.0-11.0)
== END 2016-09-05 05:22 | disposition home or self-care (01) ==
LOC: NEPE 02:44
DX: D57.00 Hb-SS disease with crisis, unspecified (principal)
CPT/HCPCS: 85025; 85044; 96361; 96374; 99284; J1170; J1642; J7030

== ENCOUNTER 2016-09-06 00:30 | Emergency (ER) | payer OTHER ==
[~2016-09-06] VITALS: Ht 152.4 cm; Wt 58.0 kg
[~2016-09-06 00:30] MED LIST changes: -DILA4TAB2 PO; -HYDR-3580 PO; -METH5TAB PO
[2016-09-06 00:32] VITALS: BP 125/77; PULSE 88; RESP 16; TEMP 99.2; O2SAT 98
[2016-09-06] MEDS ORDERED: HYDROmorphone HCL PF 1 MG/ML VIAL IV PUSH ONE ×2 (03:45→05:00)
[2016-09-06] MEDS ORDERED: SODIUM CHLOR 0.9% 1000 ML INJ 1,000 ML IV ONE (03:45)
[2016-09-06] MEDS ORDERED: ONDANSETRON HCL 4 MG/2 ML VIAL IV PUSH ONE (03:45)
[2016-09-06 04:29] LABS: AUTOMATED NEUTROPHIL # 6.3 TH/MM3 (1.8-7.7); BASOPHIL % 0.4 % (0.0-2.0); EOSINOPHIL # 0.2 TH/MM3 (0-0.4); EOSINOPHIL % 1.5 % (0.0-4.0); HEMATOCRIT 23.8 % (35.0-46.0); HEMO FLAGS DIFF FINAL; LYMPHOCYTE # 3.2 TH/MM3 (1.0-4.8); MEAN CELL VOLUME 86.4 FL (80.0-100.0); MEAN CORPUSCULAR HEMOGLOBIN 30.3 PG (27.0-34.0); MONO % 10.8 % (0.0-8.0); NEUT % 58.3 % (16.0-70.0); PLATELET COUNT 424 TH/MM3 (150-450); RED BLOOD COUNT 2.75 MIL/MM3 (4.00-5.30); WHITE BLOOD COUNT 10.9 TH/MM3 (4.0-11.0)
[2016-09-06 04:33] LABS: RETIC % 10.5 % (0.4-3.0)
[2016-09-06 04:34] LABS: REVIEW FLAG FINAL
--- NOTE | 2016-09-06 04:49 | PD ---
HPI Chief Complaint: Sickle Cell Time Seen by Provider: 03:42 Travel History International Travel<30 days: No Contact w/Intl Traveler<30days: No Traveled to known affect area: No History of Present Illness HPI 30-year-old female came to the emergency room with history of joint pains. Patient has history of sickle cell disease. I have seen this patient yesterday for the same complain. Vital signs otherwise stable. PFSH Past Medical History Narrative Medical List of her past medical, surgical, social and family history as reviewed from the nursing note. Hx Anticoagulant Therapy: No Anemia: Yes Arthritis: No Asthma: No Autoimmune Disease: No Blood Disorders: No Anxiety: No Depression: No Cancer: No Cardiovascular Problems: No Chemotherapy: No Chest Pain: Yes Congestive Heart Failure: No COPD: No Cerebrovascular Accident: No Diabetes: No Diminished Hearing: No Endocrine: No Gastrointestinal Disorders: Yes (GALLSTONES) GERD: No Genitourinary: No Headaches: Yes Hiatal Hernia: No Immune Disorder: Yes (SICKLE CELL) Implanted Vascular Access Dvce: Yes (RIGHT CHEST ) Insomnia: Yes Kidney Stones: No Musculoskeletal: No Neurologic: No Psychiatric: No Reproductive: No Respiratory: No Immunizations Current: Yes Migraines: No Pneumonia: Yes Radiation Therapy: No Renal Failure: No Seizures: No Sickle Cell Disease: Yes Thyroid Disease: No Ulcer: No PNEUMOCCOCAL Vaccine (Year): 2 ?: Not LMP: 09/05/2016 : 2 Para: 1 Miscarriage: 1 : 0 Tubal Ligation: Yes Past Surgical History Abdominal Surgery: Yes AICD: No Arteriovenous Shunt: No Body Medical Devices: MEDPORT Cardiac Surgery: No Section: Yes Cholecystectomy: Yes Ear Surgery: No Endocrine Surgery: No Eye Surgery: No Genitourinary Surgery: No Gynecologic Surgery: Yes Hysterectomy: Yes Insulin Pump: No Joint Replacement: No Oral Surgery: Yes Pacemaker: No Thoracic Surgery: Yes (CHEST PORT ) Tonsillectomy: Yes Other Surgery: Yes (RIGHT CHEST INFUSAPORT ) Social History Alcohol Use: No Tobacco Use: No Substance Use: No Allergies-Medications (Allergen,Severity, Reaction): Coded Allergies: Morphine (Verified Allergy, Severe, RASH, 09/05/16) *MDRO Multi-Drug Resistant Organism (Verified Adverse Reaction, Unknown, MRSA, 09/05/16) MRSA (blood) - 12/18/2004 Comments List or allergies reviewed from the nursing note. Reported Meds & Prescriptions Reported Meds & Active Scripts Active Folate (Folic Acid) 1 Mg Tab 1 Mg PO DAILY Narrative Medication List of her home medications reviewed from the nursing note. Review of Systems Except as stated in HPI: all other systems reviewed are Neg Physical Exam Narrative GENERAL: Awake, alert, moderate distress SKIN: Focused skin assessment warm/dry. HEAD: Atraumatic. Normocephalic. EYES: Pupils equal and round. No scleral icterus. No injection or drainage. ENT: No nasal bleeding or discharge. Mucous membranes pink and moist. NECK: Trachea midline. No JVD. CARDIOVASCULAR: Regular rate and rhythm. No murmur appreciated. RESPIRATORY: No accessory muscle use. Clear to auscultation. Breath sounds equal bilaterally. GASTROINTESTINAL: Abdomen soft, non-tender, nondistended. Hepatic and splenic margins not palpable. MUSCULOSKELETAL: No obvious deformities. No clubbing. No cyanosis. No edema. NEUROLOGICAL: Awake and alert. No obvious cranial nerve deficits. Motor grossly within normal limits. Normal speech. PSYCHIATRIC: Appropriate mood and affect; insight and judgment normal. Data Data Last Documented VS Vital Signs Date Time Temp Pulse Resp B/P Pulse Ox O2 Delivery O2 Flow Rate FiO2 09/06/16 06:24 83 20 108/69 97 09/06/16 00:32 99.2 Room Air Orders Complete Blood Count With Diff (09/06/16 03:42) Retic Count (09/06/16 03:42) Hydromorphone Pf Inj (Dilaudid Pf Inj) (09/06/16 03:45) Sodium Chlor 0.9% 1000 Ml Inj (Ns 1000 M (09/06/16 03:45) Ondansetron Inj (Zofran Inj) (09/06/16 03:45) Hydromorphone Pf Inj (Dilaudid Pf Inj) (09/06/16 05:00) Chest, Single Ap (09/06/16 ) Heparin Central Flush (Heparin Central F (09/06/16 06:00) Labs Laboratory Tests Test 09/06/16 04:10 White Blood Count 10.9 TH/MM3 Red Blood Count 2.75 MIL/MM3 Hemoglobin 8.3 GM/DL Hematocrit 23.8 % Mean Corpuscular Volume 86.4 FL Mean Corpuscular Hemoglobin 30.3 PG Mean Corpuscular Hemoglobin 35.0 % Concent Red Cell Distribution Width 21.0 % Platelet Count 424 TH/MM3 Mean Platelet Volume 8.3 FL Neutrophils (%) (Auto) 58.3 % Lymphocytes (%) (Auto) 29.0 % Monocytes (%) (Auto) 10.8 % Eosinophils (%) (Auto) 1.5 % Basophils (%) (Auto) 0.4 % Neutrophils # (Auto) 6.3 TH/MM3 Lymphocytes # (Auto) 3.2 TH/MM3 Monocytes # (Auto) 1.2 TH/MM3 Eosinophils # (Auto) 0.2 TH/MM3 Basophils # (Auto) 0.0 TH/MM3 CBC Comment DIFF FINAL Differential Comment Reticulocyte Count 10.5 % Absolute Reticulocyte Count 296.2 MIL/L MDM Medical Decision Making Medical Screen Exam Complete: Yes Emergency Medical Condition: Yes Medical Record Reviewed: Yes Differential Diagnosis Sickle cell disease, painful crisis. Chronic pain Narrative Course 6:04 AM blood test results are back. Hemoglobin has slightly drop since yesterday and the reticulocyte count is slightly gone on since yesterday. Chest x-rays negative. Patient received pain medications 2 and IV fluid bolus. I'll discharge her home. Procedures EKG Prior to Arrival: No Diagnosis Primary Impression: Sickle cell pain crisis Referrals: Primary Care Physician 3 days Disposition: DISCHARGE HOME Condition: Stable Iesha Lynn MD Sep 06, 2016 04:49
--- NOTE | 2016-09-06 05:18 | RADRPT ---
EXAM DATE/TIME: 09/06/2016 05:02 [facility] COMPARISON: CHEST SINGLE AP, August 22, 2016, 2:57. INDICATIONS : Sickle cell crisis. MEDICAL HISTORY : Sickle Cell disease. SURGICAL HISTORY : Port placement. ENCOUNTER: Initial ACUITY: 1 day PAIN SCORE: 4/10 LOCATION: Bilateral chest FINDINGS: No infiltrate or effusion demonstrated. No pneumothorax. Heart size stable, upper limits of normal. T here is a right subclavian [id number] catheter are again noted with tip at atriocaval junction. CONCLUSION: No significant change. Lungs reasonably clear. Borderline compensated cardiomegaly. Michael Downey MD on September 06, 2016 at 5:16 Board Certified Radiologist. This report was verified electronically.
[2016-09-06 06:24] VITALS: BP 108/69
== END 2016-09-06 06:36 | disposition home or self-care (01) ==
LOC: NEPC 00:30
DX: D57.00 Hb-SS disease with crisis, unspecified (principal)
CPT/HCPCS: 71010; 85025; 85044; 96361; 96374; 96375; 96376; 99284; J1170; J1642; J2405; J7030

== ENCOUNTER 2016-09-13 02:21 | Emergency (ER) | payer OTHER ==
[~2016-09-13] VITALS: Ht 167.6 cm; Wt 85.0 kg
[2016-09-13 02:24] VITALS: BP 111/73; PULSE 88; RESP 14; TEMP 99; O2SAT 92
[2016-09-13] MEDS ORDERED: SODIUM CHLOR 0.9% 1000 ML INJ 1,000 ML IV ONE (03:29)
[2016-09-13] MEDS ORDERED: ONDANSETRON HCL 4 MG/2 ML VIAL IVP ONE (03:30)
[2016-09-13] MEDS ORDERED: HYDROmorphone HCL PF 1 MG/ML VIAL IV PUSH ONE (03:30)
[2016-09-13] MEDS ORDERED: SODIUM CHLORIDE 0.9% FLUSH 10 ML FLUSH IVF PRN (03:30)
[2016-09-13] MEDS ORDERED: diphenhydrAMINE HCL 50 MG/ML VIAL IV PUSH ONE (03:30)
[2016-09-13 04:12] VITALS: O2SAT 98
[2016-09-13 04:17] LABS: AUTOMATED NEUTROPHIL # 5.7 TH/MM3 (1.8-7.7); BASOPHIL # 0.1 TH/MM3 (0-0.2); BASOPHIL % 0.8 % (0.0-2.0); EOSINOPHIL # 0.2 TH/MM3 (0-0.4); EOSINOPHIL % 1.3 % (0.0-4.0); HEMATOCRIT 22.6 % (35.0-46.0); LYMPH % 46.5 % (9.0-44.0); LYMPHOCYTE # 6.5 TH/MM3 (1.0-4.8); MEAN CELL VOLUME 87.1 FL (80.0-100.0); MEAN CORPUSCULAR HEMOGLOBIN 30.4 PG (27.0-34.0); MEAN CORPUSCULAR HGB CONC 34.9 % (32.0-36.0); MONO % 10.7 % (0.0-8.0); NEUT % 40.7 % (16.0-70.0); PLATELET COUNT 347 TH/MM3 (150-450); RED BLOOD COUNT 2.59 MIL/MM3 (4.00-5.30); RED CELL DISTRIBUTION WIDTH 21.3 % (11.6-17.2); RETIC % 6.8 % (0.4-3.0); WHITE BLOOD COUNT 14.1 TH/MM3 (4.0-11.0)
[2016-09-13 04:33] LABS: HEMO FLAGS AUTO DIFF; REVIEW FLAG AUTO DIFF
[2016-09-13 04:41] LABS: BICARBONATE 27.3 MEQ/L (21.0-32.0)
--- NOTE | 2016-09-13 04:41 | RADRPT ---
EXAM DATE/TIME: 09/13/2016 03:55 [facility] COMPARISON: CHEST SINGLE AP, September 06, 2016, 5:02. INDICATIONS : Shortness of breath. MEDICAL HISTORY : Sickle Cell disease. SURGICAL HISTORY : Infusaport. ENCOUNTER: Initial ACUITY: 1 day PAIN SCORE: Non-responsive. LOCATION: Bilateral chest FINDINGS: A single view of the chest demonstrates the lungs to be symmetrically aerated without evidence of mas s, infiltrate or effusion. Right-sided portacatheter unchanged. The cardiomediastinal contours are un remarkable. Osseous structures are intact. CONCLUSION: No acute disease. Zeke Griffith MD on September 13, 2016 at 4:39 Board Certified Radiologist. This report was verified electronically.
[2016-09-13 04:43] LABS: POTASSIUM 2.8 MEQ/L (3.5-5.1)
--- NOTE | 2016-09-13 04:58 | PD ---
HPI Chief Complaint: Sickle Cell Time Seen by Provider: 03:29 Travel History International Travel<30 days: No Contact w/Intl Traveler<30days: No Traveled to known affect area: No History of Present Illness HPI 30-year-old female with history of sickle cell anemia with multiple visits to the emergency department returns for complaint of joint pain or lower extremity pain typical of her sickle cell crises. Patient states that this episode is not as severe as prior episodes. Patient states she is trying to get an early to get IV medication to control her pain since that she can continue to manage her pain as an outpatient. Patient has appointment with her new filemaker developer Dr. Rivas on Friday. Patient denies other concerns or complaints. No fever no chills no nausea no vomiting no chest pain no shortness of breath no pleuritic pain no abdominal pain no flank pain. Patient states she just finished her menstrual cycle which typically triggers an episode of sickle pain. Patient denies any other concerns or complaints. Patient rates her pain 8/10 in intensity. PFSH Past Medical History Narrative Medical Sickle-cell anemia chest pain headache [id number]-[id number] insomnia tubal ligation cholecystectomy; no tobacco use; nursing notes reviewed Hx Anticoagulant Therapy: No Anemia: Yes Arthritis: No Asthma: No Autoimmune Disease: No Blood Disorders: No Anxiety: No Depression: No Cancer: No Cardiovascular Problems: No Chemotherapy: No Chest Pain: Yes Congestive Heart Failure: No COPD: No Cerebrovascular Accident: No Diabetes: No Diminished Hearing: No Endocrine: No Gastrointestinal Disorders: Yes (GALLSTONES) GERD: No Genitourinary: No Headaches: Yes Hiatal Hernia: No Immune Disorder: Yes (SICKLE CELL) Implanted Vascular Access Dvce: Yes (RIGHT CHEST ) Insomnia: Yes Kidney Stones: No Musculoskeletal: No Neurologic: No Psychiatric: No Reproductive: No Respiratory: No Immunizations Current: Yes Migraines: No Pneumonia: Yes Radiation Therapy: No Renal Failure: No Seizures: No Sickle Cell Disease: Yes Thyroid Disease: No Ulcer: No Tetanus Vaccination: < 5 Years PNEUMOCCOCAL Vaccine (Year): 2 ?: Not : 2 Para: 1 Miscarriage: 1 : 0 Tubal Ligation: Yes Past Surgical History Abdominal Surgery: Yes AICD: No Arteriovenous Shunt: No Body Medical Devices: MEDPORT Cardiac Surgery: No Section: Yes Cholecystectomy: Yes Ear Surgery: No Endocrine Surgery: No Eye Surgery: No Genitourinary Surgery: No Gynecologic Surgery: Yes Hysterectomy: Yes Insulin Pump: No Joint Replacement: No Oral Surgery: Yes Pacemaker: No Thoracic Surgery: Yes (CHEST PORT ) Tonsillectomy: Yes Other Surgery: Yes (RIGHT CHEST INFUSAPORT ) Social History Alcohol Use: No Tobacco Use: No Substance Use: No Allergies-Medications (Allergen,Severity, Reaction): Coded Allergies: Morphine (Verified Allergy, Severe, RASH, 09/05/16) *MDRO Multi-Drug Resistant Organism (Verified Adverse Reaction, Unknown, MRSA, 09/05/16) MRSA (blood) - 12/18/2004 Reported Meds & Prescriptions Reported Meds & Active Scripts Active Potassium Chloride CR (Potassium Chloride) 10 Meq Tab 10 Meq PO BID 5 Days Folate (Folic Acid) 1 Mg Tab 1 Mg PO DAILY Review of Systems Except as stated in HPI: all other systems reviewed are Neg General / Constitutional: No: Fever, Chills HENT: No: Congestion Cardiovascular: No: Chest Pain or Discomfort Respiratory: No: Cough Gastrointestinal: No: Nausea Genitourinary: No: Urgency Musculoskeletal: No: Myalgias Skin: No Rash Neurologic: No: Weakness Psychiatric: No: Anxiety Hematologic/Lymphatic: No: Lymph Node Enlargement Physical Exam Narrative GENERAL: Well-developed well-nourished male in no acute distress no respiratory distress SKIN: Warm and dry. HEAD: Normocephalic. EYES: No scleral icterus. No injection or drainage. NECK: Supple, trachea midline. No JVD or lymphadenopathy. CARDIOVASCULAR: Regular rate and rhythm without murmurs, gallops, or rubs. RESPIRATORY: Breath sounds equal bilaterally. No accessory muscle use. GASTROINTESTINAL: Abdomen soft, non-tender, nondistended. MUSCULOSKELETAL: No cyanosis, or edema. BACK: Nontender without obvious deformity. No CVA tenderness. Data Data Last Documented VS Vital Signs Date Time Temp Pulse Resp B/P Pulse Ox O2 Delivery O2 Flow Rate FiO2 09/13/16 05:20 75 16 118/74 98 09/13/16 02:24 99.0 Room Air Orders Basic Metabolic Panel (Bmp) (09/13/16 03:29) Complete Blood Count With Diff (09/13/16 03:29) Retic Count (09/13/16 03:29) Chest, Single Ap (09/13/16 03:29) Ecg Monitoring (09/13/16 03:29) Iv Access Insert/Monitor (09/13/16 03:29) Oximetry (09/13/16 03:29) Ondansetron Inj (Zofran Inj) (09/13/16 03:30) Sodium Chloride 0.9% Flush (Ns Flush) (09/13/16 03:30) Sodium Chlor 0.9% 1000 Ml Inj (Ns 1000 M (09/13/16 03:29) Hydromorphone Pf Inj (Dilaudid Pf Inj) (09/13/16 03:30) Diphenhydramine Inj (Benadryl Inj) (09/13/16 03:30) Ed Urine Pregnancytest Poc (09/13/16 03:29) Potassium Chloride (Kcl) (09/13/16 05:00) Potassium Chlor 10 Meq Premix (Kcl 10 Me (09/13/16 05:00) Heparin Central Flush (Heparin Central F (09/13/16 05:30) Potassium Chloride (Kcl) (09/13/16 05:30) Labs Laboratory Tests Test 09/13/16 04:00 White Blood Count 14.1 TH/MM3 Red Blood Count 2.59 MIL/MM3 Hemoglobin 7.9 GM/DL Hematocrit 22.6 % Mean Corpuscular Volume 87.1 FL Mean Corpuscular Hemoglobin 30.4 PG Mean Corpuscular Hemoglobin 34.9 % Concent Red Cell Distribution Width 21.3 % Platelet Count 347 TH/MM3 Mean Platelet Volume 8.0 FL Neutrophils (%) (Auto) 40.7 % Lymphocytes (%) (Auto) 46.5 % Monocytes (%) (Auto) 10.7 % Eosinophils (%) (Auto) 1.3 % Basophils (%) (Auto) 0.8 % Neutrophils # (Auto) 5.7 TH/MM3 Lymphocytes # (Auto) 6.5 TH/MM3 Monocytes # (Auto) 1.5 TH/MM3 Eosinophils # (Auto) 0.2 TH/MM3 Basophils # (Auto) 0.1 TH/MM3 CBC Comment AUTO DIFF Differential Total Cells 100 Counted Neutrophils % (Manual) 45 % Band Neutrophils % 1 % Lymphocytes % 46 % Monocytes % 7 % Eosinophils % 1 % Neutrophils # (Manual) 6.5 TH/MM3 Nucleated Red Blood Cells 1 /100 WBC Differential Comment FINAL DIFF MANUAL Platelet Estimate NORMAL Platelet Morphology Comment NORMAL Sickle Cells 1+ Hillary Bodies PRESENT Reticulocyte Count 6.8 % Absolute Reticulocyte Count 175.8 MIL/L Sodium Level 141 MEQ/L Potassium Level 2.8 MEQ/L Chloride Level 105 MEQ/L Carbon Dioxide Level 27.3 MEQ/L Anion Gap 9 MEQ/L Blood Urea Nitrogen 5 MG/DL Creatinine 0.45 MG/DL Estimat Glomerular Filtration 195 ML/MIN Rate Random Glucose 91 MG/DL Calcium Level 8.7 MG/DL MDM Medical Decision Making Medical Screen Exam Complete: Yes Emergency Medical Condition: Yes Medical Record Reviewed: Yes Interpretation(s) CBC & BMP Diagram 09/13/16 04:00 Vital Signs Date Time Temp Pulse Resp B/P Pulse Ox O2 Delivery O2 Flow Rate FiO2 09/13/16 04:12 98 09/13/16 02:24 99.0 88 14 111/73 92 Room Air Differential Diagnosis Sickle-cell crisis is occlusive crisis anemia pneumonia UTI Narrative Course [id number] access to IV fluid normal saline bolus administered 1 L along with Dilaudid 1 mg IV Benadryl 25 mg IV Specimens collected and sent for resulting Patient identified to have potassium of 2.8; patient given oral potassium 40 mEq and ordered for 10 mEq IV along with oral hydration with Gatorade Patient reports feels improved after IV Dilaudid and Benadryl Informed by patient's nurse that she is refusing IV potassium; with nurse at bedside now reports she didn't know she needed iv potassium -- not willing to have iv potassium peripherally Diagnosis Primary Impression: Sickle cell anemia Qualified Code: D57.00 - Hb-SS disease with crisis Additional Impression: Hypokalemia Referrals: Primary Care Physician 1 day follow up with your managing filemaker developer Dr. Rivas Patient Instructions: General Instructions Additional Instructions: Increase fluid hydration Add potassium containing foods and beverages to dietary intake Take potassium supplement as prescribed Return to the emergency department for any concerns or change in condition Take acetaminophen/Tylenol as needed for fever 100.4F or greater Med/Other Pt SpecificInfo: Prescription(s) given Scripts Potassium Chloride ER (Potassium Chloride CR)10 Meq Tab10 Meq PO BID 5 Days Prov:Halina Jiang MD 09/13/16 Halina Jiang MD September 13, 2016 04:58
[2016-09-13] MEDS ORDERED: POTASSIUM CHLORIDE 20 MEQ CONTROLLED RELEASE TAB PO ONE (05:00)
[2016-09-13] MEDS ORDERED: POTASSIUM CHLOR 10 MEQ PREMIX 100 ML IV ONE (05:00)
[2016-09-13 05:18] LABS: BANDS 1 % (0-6); CORRECTED NUCLEATED RBC 1 /100 WBC (0-0); EOSINOPHILS 1 % (0-4); NEUTROPHIL # MANUAL DIFF 6.5 TH/MM3 (1.8-7.7); POLYS (SEG NEUTROPHILS) 45 % (16-70); SCAN/DIFF FINAL DIFF MANUAL; WBC DIFF SAMPLE 100
[2016-09-13 05:19] VITALS: RESP 16
[2016-09-13 05:19] LABS: PLATELET ESTIMATE SMEAR NORMAL (NORMAL); PLATELET MORPHOLOGY NORMAL (NORMAL); SICKLE CELLS 1+ (NORMAL)
[2016-09-13 05:20] VITALS: BP 118/74
[2016-09-13 05:20] LABS: HOWELL-JOLLY BODIES PRESENT (NONE SEEN)
[2016-09-13] MEDS ORDERED: POTA10TA8 PO (05:24)
[2016-09-13] MEDS ORDERED: POTASSIUM CHLORIDE 10 MEQ CONTROLLED RELEASE TAB PO ONE (05:30)
== END 2016-09-13 05:37 | disposition home or self-care (01) ==
LOC: NEPC 02:21
DX: D57.00 Hb-SS disease with crisis, unspecified (principal); E87.6 Hypokalemia
CPT/HCPCS: 71010; 80048; 85007; 85027; 85044; 96361; 96374; 96375; 99284; J1170; J1200; J2405; J7030

== ENCOUNTER 2016-09-17 01:36 | Emergency (ER) | payer OTHER ==
[~2016-09-17] VITALS: Ht 167.6 cm; Wt 85.0 kg
[~2016-09-17 01:36] MED LIST changes: +POTA10TA8 PO
[2016-09-17 01:39] VITALS: BP 101/63; PULSE 122; RESP 16; TEMP 102.9; O2SAT 94
[2016-09-17] MEDS ORDERED: diphenhydrAMINE HCL 50 MG/ML VIAL IV PUSH STA ×2 (02:33→03:50)
[2016-09-17] MEDS ORDERED: HYDROmorphone HCL PF 2 MG/ML VIAL IVS ONE ×2 (02:45→04:00)
[2016-09-17] MEDS ORDERED: SODIUM CHLOR 0.9% 1000 ML INJ 1,000 ML IV ONE (02:45)
[2016-09-17] MEDS ORDERED: ACETAMINOPHEN 325 MG TAB PO ONE (02:45)
--- NOTE | 2016-09-17 03:06 | RADRPT ---
EXAM DATE/TIME: 09/17/2016 02:49 [facility] COMPARISON: CHEST SINGLE AP, September 13, 2016, 3:55. INDICATIONS : Fever. MEDICAL HISTORY : Sickle Cell disease. SURGICAL HISTORY : Infusaport. ENCOUNTER: Initial ACUITY: 1 day PAIN SCORE: 5/10 LOCATION: Bilateral chest FINDINGS: A single view of the chest demonstrates the lungs to be symmetrically aerated without evidence of mas s, infiltrate or effusion. The cardiomediastinal contours are unremarkable. Osseous structures are intact. A right subclavian Port-A-Cath. CONCLUSION: Normal examination. Marquis Dukes Jr., MD on September 17, 2016 at 3:04 Board Certified Radiologist. This report was verified electronically.
[2016-09-17 03:10] VITALS: O2SAT 95
[2016-09-17 03:16] LABS: AUTOMATED NEUTROPHIL # 16.6 TH/MM3 (1.8-7.7); BASOPHIL % 0.2 % (0.0-2.0); EOSINOPHIL % 0.1 % (0.0-4.0); HEMATOCRIT 24.3 % (35.0-46.0); LYMPH % 6.4 % (9.0-44.0); LYMPHOCYTE # 1.3 TH/MM3 (1.0-4.8); MEAN CELL VOLUME 87.9 FL (80.0-100.0); MEAN CORPUSCULAR HEMOGLOBIN 29.3 PG (27.0-34.0); MEAN CORPUSCULAR HGB CONC 33.3 % (32.0-36.0); MONO % 12.3 % (0.0-8.0); PLATELET COUNT 373 TH/MM3 (150-450); RED BLOOD COUNT 2.76 MIL/MM3 (4.00-5.30); RED CELL DISTRIBUTION WIDTH 19.5 % (11.6-17.2); WHITE BLOOD COUNT 20.5 TH/MM3 (4.0-11.0)
[2016-09-17 03:34] LABS: HEMO FLAGS AUTO DIFF
[2016-09-17 03:41] LABS: ALKALINE PHOSPHATASE 118 U/L (45-117); ALT (GPT) 25 U/L (10-53); ANION GAP 8 MEQ/L (5-15); AST (GOT) 41 U/L (15-37); BICARBONATE 29.1 MEQ/L (21.0-32.0); BLOOD UREA NITROGEN 11 MG/DL (7-18); CHLORIDE 99 MEQ/L (98-107); GLOMERULAR FILTRATION RATE 140 ML/MIN (>89); MAGNESIUM 2.2 MG/DL (1.5-2.5); SODIUM (NA) 136 MEQ/L (136-145); TOTAL BILIRUBIN ADULT 4.4 MG/DL (0.2-1.0)
[2016-09-17 03:45] VITALS: BP 108/85; PULSE 108; RESP 18; TEMP 99; O2SAT 95
[2016-09-17 03:47] LABS: POTASSIUM 2.8 MEQ/L (3.5-5.1)
--- NOTE | 2016-09-17 04:01 | PD ---
HPI Chief Complaint: Sickle Cell Time Seen by Provider: 02:09 Travel History International Travel<30 days: No Contact w/Intl Traveler<30days: No Traveled to known affect area: No History of Present Illness HPI Is a 30 year-old woman presents to the emergency department complaining of feeling bad, sluggish, chills, and back pain and leg pain. She is a known history of sickle cell disease. She is in the emergency department weekly. She states she's felt unwell for a day or 2 now. She hasn't had any cough. No urinary symptoms. She did just start her menstrual cycle. The pain in her back arms and legs is typical for her sickle cell crisis. She has a port. No other recent illness or injury. No other complaints. History Past Medical History Narrative Medical Sickle cell disease. Hemosiderosis Chronic back pain Tetanus Vaccination: < 5 Years Influenza Vaccination: Yes PNEUMOCCOCAL Vaccine (Year): 2 : 2 Para: 1 Social History Alcohol Use: No Tobacco Use: No Allergies-Medications (Allergen,Severity, Reaction): Coded Allergies: Morphine (Verified Allergy, Severe, RASH, 09/05/16) *MDRO Multi-Drug Resistant Organism (Verified Adverse Reaction, Unknown, MRSA, 09/05/16) MRSA (blood) - 12/18/2004 Reported Meds & Prescriptions Reported Meds & Active Scripts Active Potassium Chloride CR (Potassium Chloride) 10 Meq Tab 10 Meq PO BID 5 Days Folate (Folic Acid) 1 Mg Tab 1 Mg PO DAILY Review of Systems Except as stated in HPI: all other systems reviewed are Neg Physical Exam Narrative GENERAL: The surgery she looks like her normal self. No acute distress. SKIN: Focused skin assessment warm/dry. NECK: Trachea midline. No JVD. CARDIOVASCULAR: Heart rates over rapid. No murmurs. RESPIRATORY: No accessory muscle use. Clear to auscultation. Breath sounds equal bilaterally. GASTROINTESTINAL: Abdomen soft, non-tender, nondistended. Hepatic and splenic margins not palpable. MUSCULOSKELETAL: No obvious deformities. No edema. NEUROLOGICAL: Awake and alert. No obvious cranial nerve deficits. Motor grossly within normal limits. Normal speech. PSYCHIATRIC: Appropriate mood and affect; insight and judgment normal. Data Data Last Documented VS Vital Signs Date Time Temp Pulse Resp B/P Pulse Ox O2 Delivery O2 Flow Rate FiO2 09/17/16 03:10 95 Room Air 09/17/16 01:39 102.9 122 16 101/63 Orders Complete Blood Count With Diff (09/17/16 02:33) Comprehensive Metabolic Panel (09/17/16 02:33) Lactic Acid Sepsis Protocol (09/17/16 02:33) Magnesium (Mg) (09/17/16 02:33) Urinalysis - C+S If Indicated (09/17/16 02:33) Influenzae A/B Antigen (09/17/16 02:33) Blood Culture (09/17/16 02:33) Chest, Single Ap (09/17/16 02:33) Blood Glucose (09/17/16 02:33) Ecg Monitoring (09/17/16 02:33) Iv Access Insert/Monitor (09/17/16 02:33) Oximetry (09/17/16 02:33) Oxygen Administration (09/17/16 02:33) Acetaminophen (Tylenol) (09/17/16 02:45) Ed Urine Pregnancytest Poc (09/17/16 02:33) Sodium Chlor 0.9% 1000 Ml Inj (Ns 1000 M (09/17/16 02:45) Hydromorphone Pf Inj (Dilaudid Pf Inj) (09/17/16 02:45) Diphenhydramine Inj (Benadryl Inj) (09/17/16 02:33) Hydromorphone Pf Inj (Dilaudid Pf Inj) (09/17/16 04:00) Diphenhydramine Inj (Benadryl Inj) (09/17/16 03:50) Labs Laboratory Tests Test 09/17/16 02:55 White Blood Count 20.5 TH/MM3 Red Blood Count 2.76 MIL/MM3 Hemoglobin 8.1 GM/DL Hematocrit 24.3 % Mean Corpuscular Volume 87.9 FL Mean Corpuscular Hemoglobin 29.3 PG Mean Corpuscular Hemoglobin 33.3 % Concent Red Cell Distribution Width 19.5 % Platelet Count 373 TH/MM3 Mean Platelet Volume 7.9 FL Neutrophils (%) (Auto) 81.0 % Lymphocytes (%) (Auto) 6.4 % Monocytes (%) (Auto) 12.3 % Eosinophils (%) (Auto) 0.1 % Basophils (%) (Auto) 0.2 % Neutrophils # (Auto) 16.6 TH/MM3 Lymphocytes # (Auto) 1.3 TH/MM3 Monocytes # (Auto) 2.5 TH/MM3 Eosinophils # (Auto) 0.0 TH/MM3 Basophils # (Auto) 0.0 TH/MM3 CBC Comment AUTO DIFF Sodium Level 136 MEQ/L Potassium Level 2.8 MEQ/L Chloride Level 99 MEQ/L Carbon Dioxide Level 29.1 MEQ/L Anion Gap 8 MEQ/L Blood Urea Nitrogen 11 MG/DL Creatinine 0.60 MG/DL Estimat Glomerular Filtration 140 ML/MIN Rate Random Glucose 108 MG/DL Lactic Acid Level 0.5 mmol/L Calcium Level 8.4 MG/DL Magnesium Level 2.2 MG/DL Total Bilirubin 4.4 MG/DL Aspartate Amino Transf 41 U/L (AST/SGOT) Alanine Aminotransferase 25 U/L (ALT/SGPT) Alkaline Phosphatase 118 U/L Total Protein 7.9 GM/DL Albumin 3.4 GM/DL [facility] Medical Decision Making Medical Screen Exam Complete: Yes Emergency Medical Condition: Yes Interpretation(s) LABS: CBC is remarkable for mild anemia, significant leukocytosis at 20,000 CMP remarkable for hypokalemia Total bili 4.4 Lactate 0.5 Influenza negative. Chest x-ray: Negative Differential Diagnosis Infection or sepsis, port infection, bacteremia, sickle cell crisis, pneumonia, other Narrative Course Medical decision making This a 30 year-old woman presents to the emergency department complaining of feeling poorly, fevers and chills, back and leg pain with sickle cell crisis. She isn't typically have a fever when she calms, especially up to 103. Her white count is not usually more than 14, today it is 20. She does look otherwise well. FINAL: Unfortunately brendon Ching is not able to stay because she has to go get her child. She has sepsis but looks overall pretty well. I'm not sure if this is from a source of infection, related to her pain crisis. She also is hypokalemic. I'm not sure why she is hypokalemic but she has been recently. She is on potassium. I recommend keeping her in the hospital for further evaluation but she states she has to leave. Her plan is to return to the emergency department at 8 AM for repeat evaluation and likely admission. Diagnosis Primary Impression: Sepsis Additional Impression: Sickle cell pain crisis Additional Instructions: Return to the emergency department for further evaluation for possible sepsis. Disposition: 01 DISCHARGE HOME Condition: Stable Balbir Clark MD September 17, 2016 04:01
[2016-09-17] MEDS ORDERED: POTASSIUM CHLORIDE 25 MEQ EFFERVESCENT TAB PO ONE (04:30)
[2016-09-17 04:38] LABS: SCAN/DIFF AUTO DIFF CONFIRMED
[2016-09-17 04:39] LABS: HOWELL-JOLLY BODIES PRESENT (NONE SEEN); PLATELET ESTIMATE SMEAR NORMAL (NORMAL); PLATELET MORPHOLOGY NORMAL (NORMAL)
[2016-09-20] MEDS ORDERED: cefTRIAXone INJ 1,000 MG in SODIUM CHLORIDE 0.9% INJ 100 ML IV SCH (06:00)
== END 2016-09-17 04:54 | disposition home or self-care (01) ==
LOC: NEPE 01:36
DX: A41.9 Sepsis, unspecified organism (principal); D57.00 Hb-SS disease with crisis, unspecified
CPT/HCPCS: 71010; 80053; 83605; 83735; 85025; 87040; 87077; 87186; 87205; 87804; 96374; 96375; 96376; 99283; J1170; J1200; J1642; J7030

== ENCOUNTER 2016-09-20 02:46 | Inpatient (IN) | payer OTHER ==
[2016-09-20] VITALS (14 sets, daily range): BP systolic 88–112; BP diastolic 50–63; PULSE 79–109; RESP 16–18; TEMP 96–101.9; O2SAT 96–100
[~2016-09-20] VITALS: Ht 152.4 cm; Wt 59.1 kg
[2016-09-20] MEDS ORDERED: cefTRIAXone INJ 1,000 MG in SODIUM CHLORIDE 0.9% INJ 100 ML IV ONE (03:30)
[2016-09-20] MEDS ORDERED: SODIUM CHLOR 0.9% 1000 ML INJ 1,000 ML IV ONE (03:30)
[2016-09-20] MEDS ORDERED: diphenhydrAMINE HCL 50 MG/ML VIAL IV PUSH ONE (03:30)
[2016-09-20] MEDS ORDERED: HYDROmorphone HCL PF 1 MG/ML VIAL IV PUSH ONE (03:30)
[2016-09-20] MEDS ORDERED: VANCOMYCIN INJ 1,000 MG in SODIUM CHLOR 0.9% 250 ML INJ 250 ML IV ONE (03:30)
--- NOTE | 2016-09-20 03:39 | PD ---
HPI Chief Complaint: Sickle Cell Time Seen by Provider: 03:02 Travel History International Travel<30 days: No Contact w/Intl Traveler<30days: No Traveled to known affect area: No History of Present Illness HPI 30-year-old female complains of fever and joint pain. Patient has history of sickle cell disease with frequent sickle cell crisis pain. Patient was seen in emergency room 3 days ago for fever which started 2 days before that. Patient had blood test done and blood culture done. Patient was advised to be admitted for IV antibiotic treatment for fever. Patient was unable to stay because of family situation. Patient states that she had persistent fever since last visit. Patient also complaining of joint pain all over the body. Patient denies any headache. Patient denies any earache sore throat. Patient denies any coughing congestion. Patient denies abdominal pain. Patient denies any nausea vomiting diarrhea. Patient denies any dysuria or frequency. Patient denies any vaginal discharge or bleeding. Blood culture done closeted grew Escherichia coli which is sensitive to all antibiotics except ampicillin. UA was ordered however was not able to be collected at last visit. PFSH Past Medical History Hx Anticoagulant Therapy: No Anemia: Yes Arthritis: No Asthma: No Autoimmune Disease: No Blood Disorders: No Anxiety: No Depression: No Cancer: No Cardiovascular Problems: No Chemotherapy: No Chest Pain: Yes Congestive Heart Failure: No COPD: No Cerebrovascular Accident: No Diabetes: No Diminished Hearing: No Endocrine: No Gastrointestinal Disorders: Yes (GALLSTONES) GERD: No Genitourinary: No Headaches: Yes Hiatal Hernia: No Immune Disorder: Yes (SICKLE CELL) Implanted Vascular Access Dvce: Yes (RIGHT CHEST ) Insomnia: Yes Kidney Stones: No Musculoskeletal: No Neurologic: No Psychiatric: No Reproductive: No Respiratory: No Immunizations Current: Yes Migraines: No Pneumonia: Yes Radiation Therapy: No Renal Failure: No Seizures: No Sickle Cell Disease: Yes Thyroid Disease: No Ulcer: No PNEUMOCCOCAL Vaccine (Year): 2 ?: Not LMP: CURRENT : 2 Para: 1 Miscarriage: 1 : 0 Tubal Ligation: Yes Past Surgical History Abdominal Surgery: Yes AICD: No Arteriovenous Shunt: No Body Medical Devices: MEDPORT Cardiac Surgery: No Section: Yes Cholecystectomy: Yes Ear Surgery: No Endocrine Surgery: No Eye Surgery: No Genitourinary Surgery: No Gynecologic Surgery: Yes Hysterectomy: Yes Insulin Pump: No Joint Replacement: No Oral Surgery: Yes Pacemaker: No Thoracic Surgery: Yes (CHEST PORT ) Tonsillectomy: Yes Other Surgery: Yes (RIGHT CHEST INFUSAPORT ) Social History Alcohol Use: No Tobacco Use: No Substance Use: No Allergies-Medications (Allergen,Severity, Reaction): Coded Allergies: Morphine (Verified Allergy, Severe, RASH, 09/20/16) *MDRO Multi-Drug Resistant Organism (Verified Adverse Reaction, Unknown, MRSA, 09/20/16) MRSA (blood) - 12/18/2004 Reported Meds & Prescriptions Reported Meds & Active Scripts Active Potassium Chloride CR (Potassium Chloride) 10 Meq Tab 10 Meq PO BID 5 Days Folate (Folic Acid) 1 Mg Tab 1 Mg PO DAILY Review of Systems General / Constitutional: Positive: Fever Eyes: No: Visual changes HENT: No: Headaches Cardiovascular: No: Chest Pain or Discomfort Respiratory: No: Shortness of Breath Gastrointestinal: No: Abdominal Pain Genitourinary: No: Dysuria Musculoskeletal: Positive: Pain Skin: No Rash Neurologic: No: Weakness Psychiatric: No: Depression Endocrine: No: Polydipsia Hematologic/Lymphatic: No: Easy Bruising Physical Exam Narrative GENERAL: Well-nourished, well-developed patient. SKIN: Focused skin assessment warm/dry. HEAD: Normocephalic. EYES: No scleral icterus. No injection or drainage. NECK: Supple, trachea midline. No JVD or lymphadenopathy. CARDIOVASCULAR: Regular rate and rhythm without murmurs, gallops, or rubs. RESPIRATORY: Breath sounds equal bilaterally. No accessory muscle use. GASTROINTESTINAL: Abdomen soft, non-tender, nondistended. MUSCULOSKELETAL: No cyanosis, or edema. BACK: Nontender without obvious deformity. No CVA tenderness. Neurologic exam normal. Data Data Last Documented VS Vital Signs Date Time Temp Pulse Resp B/P Pulse Ox O2 Delivery O2 Flow Rate FiO2 09/20/16 03:48 100 Room Air 09/20/16 02:48 101.9 109 18 112/61 Orders Complete Blood Count With Diff (09/20/16 03:20) Comprehensive Metabolic Panel (09/20/16 03:20) Prothrombin Time / Inr (Pt) (09/20/16 03:20) Act Partial Throm Time (Ptt) (09/20/16 03:20) Blood Culture (09/20/16 03:20) Urinalysis - C+S If Indicated (09/20/16 03:20) Influenzae A/B Antigen (09/20/16 03:20) Chest, Single Ap (09/20/16 03:20) Iv Access Insert/Monitor (09/20/16 03:20) Ecg Monitoring (09/20/16 03:20) Oximetry (09/20/16 03:20) Sodium Chlor 0.9% 1000 Ml Inj (Ns 1000 M (09/20/16 03:30) Ceftriaxone Inj (Rocephin Inj) (09/20/16 03:30) Hydromorphone Pf Inj (Dilaudid Pf Inj) (09/20/16 03:30) Diphenhydramine Inj (Benadryl Inj) (09/20/16 03:30) Vancomycin Inj (Vancomycin Inj) (09/20/16 03:30) Lactic Acid (09/20/16 03:39) Labs Laboratory Tests Test 09/20/16 09/20/16 03:53 04:00 White Blood Count 21.3 TH/MM3 Red Blood Count 1.93 MIL/MM3 Hemoglobin 5.5 GM/DL Hematocrit 16.6 % Mean Corpuscular Volume 85.8 FL Mean Corpuscular Hemoglobin 28.4 PG Mean Corpuscular Hemoglobin 33.2 % Concent Red Cell Distribution Width 21.6 % Platelet Count 426 TH/MM3 Mean Platelet Volume 8.8 FL Neutrophils (%) (Auto) 73.5 % Lymphocytes (%) (Auto) 12.9 % Monocytes (%) (Auto) 12.8 % Eosinophils (%) (Auto) 0.3 % Basophils (%) (Auto) 0.5 % Neutrophils # (Auto) 15.6 TH/MM3 Lymphocytes # (Auto) 2.7 TH/MM3 Monocytes # (Auto) 2.7 TH/MM3 Eosinophils # (Auto) 0.1 TH/MM3 Basophils # (Auto) 0.1 TH/MM3 CBC Comment AUTO DIFF Prothrombin Time 13.1 SEC Prothromb Time International 1.2 RATIO Ratio Activated Partial 44.9 SEC Thromboplast Time Sodium Level 135 MEQ/L Potassium Level 2.9 MEQ/L Chloride Level 96 MEQ/L Carbon Dioxide Level 29.4 MEQ/L Anion Gap 10 MEQ/L Blood Urea Nitrogen 8 MG/DL Creatinine 0.71 MG/DL Estimat Glomerular Filtration 115 ML/MIN Rate Random Glucose 98 MG/DL Calcium Level 8.5 MG/DL Total Bilirubin 3.9 MG/DL Aspartate Amino Transf 54 U/L (AST/SGOT) Alanine Aminotransferase 32 U/L (ALT/SGPT) Alkaline Phosphatase 260 U/L Total Protein 8.2 GM/DL Albumin 3.1 GM/DL Lactic Acid Level 0.7 mmol/L MDM Medical Decision Making Medical Screen Exam Complete: Yes Emergency Medical Condition: Yes Interpretation(s) 4:50 AM. Last Impressions Chest X-Ray 09/20/16 0320 Signed Impressions: Service Date/Time: Tuesday, September 20, 2016 03:39 - CONCLUSION: No acute disease. No significant change has occurred. Devin Alamo MD 4:50 AM. CBC WBC 21.3. Hemoglobin 5.5. Hematocrit 16.6. 73 neutrophil. Potassium 2.9. Lactic acid 0.7. Alkaline phosphatase 260. AST 54. Total bili 3.9. Differential Diagnosis Differential diagnosis including UTI, pyelonephritis, port infection, pneumonia , sepsis. Narrative Course 30-year-old female with persistent fever. History of sickle cell disease. Blood culture was positive 3 days ago for Escherichia coli. Patient did not want to be admitted at that time. Patient returned today. Patient still has fever. Normal saline solution 1 L IV bolus. Dilaudid 1 mg IV. Zofran 4 mg IV. Benadryl 50 mg IV. Rocephin 1 g IV. Vancomycin 1 g IV. I advised patient that we should obtain peripheral line and gave medication and blood through peripheral line. Patient refused IV referral. Patient demanded that we use her port. I advised patient that she has infection that could be coming from the port. Patient still demanded that we use her port. KCl 40 mEq by mouth. KCl 20 mEq IV given. Type and cross 2 units of blood. Diagnosis Primary Impression: Sepsis Qualified Code: A41.51 - Sepsis due to Escherichia coli Additional Impressions: Severe anemia Hypokalemia Admitting Information Admitting Physician Requests: Admit Brent Gonsalves MD September 20, 2016 03:39
--- NOTE | 2016-09-20 04:14 | RADRPT ---
EXAM DATE/TIME: 09/20/2016 03:39 [facility] COMPARISON: CHEST SINGLE AP, September 17, 2016, 2:49. INDICATIONS : Shortness of breath and fever. MEDICAL HISTORY : Sickle Cell disease. Hypertension SURGICAL HISTORY : Infusaport. ENCOUNTER: Initial ACUITY: 1 day PAIN SCORE: 0/10 LOCATION: Bilateral chest FINDINGS: A single view of the chest demonstrates the lungs to be symmetrically aerated without evidence of mas s, infiltrate or effusion. The cardiomediastinal contours are unremarkable. Osseous structures are intact. Right-sided central line Remains in place. CONCLUSION: No acute disease. No significant change has occurred. Devin Alamo MD on September 20, 2016 at 4:12 Board Certified Radiologist. This report was verified electronically.
[2016-09-20 04:19] LABS: AUTOMATED NEUTROPHIL # 15.6 TH/MM3 (1.8-7.7); BASOPHIL # 0.1 TH/MM3 (0-0.2); BASOPHIL % 0.5 % (0.0-2.0); EOSINOPHIL # 0.1 TH/MM3 (0-0.4); EOSINOPHIL % 0.3 % (0.0-4.0); LYMPH % 12.9 % (9.0-44.0); LYMPHOCYTE # 2.7 TH/MM3 (1.0-4.8); MEAN CELL VOLUME 85.8 FL (80.0-100.0); MEAN CORPUSCULAR HEMOGLOBIN 28.4 PG (27.0-34.0); MEAN CORPUSCULAR HGB CONC 33.2 % (32.0-36.0); MONO % 12.8 % (0.0-8.0); NEUT % 73.5 % (16.0-70.0); PLATELET COUNT 426 TH/MM3 (150-450); RED BLOOD COUNT 1.93 MIL/MM3 (4.00-5.30); RED CELL DISTRIBUTION WIDTH 21.6 % (11.6-17.2); WHITE BLOOD COUNT 21.3 TH/MM3 (4.0-11.0)
[2016-09-20 04:22] LABS: HEMO FLAGS AUTO DIFF
[2016-09-20 04:27] LABS: HEMATOCRIT 16.6 % (35.0-46.0)
[2016-09-20 04:28] LABS: APTT (PATIENT) 44.9 SEC (24.3-30.1); INTERNATIONAL NORMALIZED RATIO 1.2 RATIO; PROTHROMBIN TIME - PATIENT 13.1 SEC (9.8-11.6)
[2016-09-20 04:40] LABS: ALKALINE PHOSPHATASE 260 U/L (45-117); ALT (GPT) 32 U/L (10-53); ANION GAP 10 MEQ/L (5-15); AST (GOT) 54 U/L (15-37); BICARBONATE 29.4 MEQ/L (21.0-32.0); BLOOD UREA NITROGEN 8 MG/DL (7-18); CHLORIDE 96 MEQ/L (98-107); GLOMERULAR FILTRATION RATE 115 ML/MIN (>89); SODIUM (NA) 135 MEQ/L (136-145); TOTAL BILIRUBIN ADULT 3.9 MG/DL (0.2-1.0)
[2016-09-20 04:41] LABS: POTASSIUM 2.9 MEQ/L (3.5-5.1)
[2016-09-20 04:51] LABS: PLATELET ESTIMATE SMEAR NORMAL (NORMAL); TARGET CELLS 1+ (NORMAL)
[2016-09-20 04:52] LABS: PLATELET MORPHOLOGY NORMAL (NORMAL); SCAN/DIFF AUTO DIFF CONFIRMED
[2016-09-20 04:56] LABS: POLYCHROMASIA 3.8 % (0.0-1.9)
[2016-09-20] MEDS ORDERED: SODIUM CHLOR 0.9% 250 ML INJ 250 ML IV ONE (05:15)
[2016-09-20] MEDS ORDERED: POTASSIUM CHLORIDE 20 MEQ CONTROLLED RELEASE TAB PO ONE (05:15)
[2016-09-20] MEDS ORDERED: POTASSIUM CHLOR 20 MEQ PREMIX 100 ML IV ONE (05:15)
[2016-09-20] MEDS ORDERED: ONDANSETRON HCL 4 MG/2 ML VIAL IVP PRN (05:45)
[2016-09-20] MEDS ORDERED: NALOXONE HCL 0.4 MG/ML AMP IV PRN (05:45)
[2016-09-20] MEDS ORDERED: Vancomycin Consult Pharmacy 1 EA OTHER SCH ×2 (06:00→06:30)
--- NOTE | 2016-09-20 06:15 | HHI.HP ---
[facility] Phys[facility] Unknown Admission Diagnosis sepsis. Anemia. Hypokalemia. Diagnoses: Chief Complaint: Generalized pain Travel History International Travel<30 Days: No Contact w/Intl Traveler <30 Da: No Traveled to Known Affected Are: No Sepsis Criteria SIRS Criteria (2 or more): Temp > 100.9 or < 96.8, Heart rate over 90, WBC > 56043, < 4000 or > 10% bands Sepsis Criteria (SIRS+source): Infect source susp/known History of Present Illness This a 30-year-old female patient with sickle cell disease and multiple blood transfusions in the past. Patient reports initially started feeling generally unwell on Sundays came to the emergency department on 09/17/2016 and had a temperature of 11.9 with heart rate of 122 blood and urine cultures were obtained and patient was advised to stay in the hospital for admission and further treatment. Patient left the hospital stating that she had arrange care for her son. Patient returned to emergency department today because of generalized pain. Patient reports the pain is, "all over," and "real bad." Patient unable to elaborate further. Patient patient reports this pain is not consistent with her typical sickle cell crises as with her typical sickle cell crises she pain primarily located in her back. Urine cultures obtained 2016 positive for Escherichia coli, blood cultures 2 obtained from right upper chest port positive Escherichia coli 2. Per nursing at the time patient refused to have peripheral blood culture drawn. Patient's hemoglobin noted to be 5.5. Patient reports her usual menstrual cycle in heavy and last 3-4 days last menstrual cycle started Friday is ending. Patient denies shortness of breath nausea vomiting diarrhea constipation or chills. Patient also noted have a temperature of 101.9 upon arrival reports she was unaware she had a fever. Review of Systems Except as stated in HPI: all other systems reviewed are Neg Past Family Social History Past Medical History Sickled Cell Disease Multiple blood transfusions. Past Surgical History Tubal ligation [id number] placement Cholecystectomy 1994 Tonsillectomy Reported Medications Folate (Folic Acid) 1 Mg Tab 1 Mg PO DAILY Allergies: Coded Allergies: Morphine (Verified Allergy, Severe, RASH, 10/16/16) *MDRO Multi-Drug Resistant Organism (Verified Adverse Reaction, Unknown, MRSA, 10/16/16) MRSA (blood) - 12/18/2004 MRSA PCR screen NEGATIVE 08/27/16 & 09/21/16 Cleared per Infection Control Active Ordered Medications Current Medications Medications (Trade) Dose Ordered Sig/Marielle Route Start Time Stop Time Status Last Admin Sodium Chloride 250 ml @ 15 mls/hr ONCE ONCE IV 09/20/16 05:15 09/20/16 21:54 Potassium Chloride 100 ml @ 50 mls/hr BOLUS ONCE IV 09/20/16 05:15 09/20/16 07:14 (KCl 20 Meq Premix Inj) 100 ml @ 50 mls/hr Q2H IV 09/20/16 05:45 09/20/16 09:44 (NS Flush) 2 ml UNSCH PRN IV FLUSH 09/20/16 05:45 (NS Flush) 2 ml BID IV FLUSH 09/20/16 09:00 (Zofran Inj) 4 mg Q6H PRN IVP 09/20/16 05:45 Naloxone HCl 0.4 mg 0.4 mg UNSCH PRN IV 09/20/16 05:45 Ceftriaxone Sodium 1000 mg/ Sodium Chloride 100 ml @ 200 mls/hr Q24H IV 09/20/16 07:00 (NS 1000 ml Inj) 1,000 ml @ 200 mls/hr Q5H IV 09/20/16 07:00 (Dilaudid Pf Inj) 0.5 mg Q4H PRN IV PUSH 09/20/16 06:15 (Benadryl Inj) 25 mg Q4H PRN IV PUSH 09/20/16 06:15 Family History Sister with sickle cell disease Mother had breast CA Social History Lives with her Son, Denies any tobacco, alcohol, or illicit drug use. Physical Exam Vital Signs Vital Signs Date Time Temp Pulse Resp B/P Pulse Ox O2 Delivery O2 Flow Rate FiO2 09/20/16 05:01 99.0 85 18 98/55 98 Room Air 09/20/16 03:48 100 Room Air 09/20/16 02:48 101.9 109 18 112/61 96 Room Air Physical Exam GENERAL: This is a well-nourished, well-developed patient, appears fatigued and generally unwell SKIN: No rashes, ecchymoses or lesions. Cool and dry. HEAD: Atraumatic. Normocephalic. No temporal or scalp tenderness. EYES: Extraocular motions intact. No scleral icterus. No injection or drainage. CARDIOVASCULAR: Regular rate and rhythm without murmurs, gallops, or rubs. RESPIRATORY: Clear to auscultation. Breath sounds equal bilaterally. No wheezes , rales, or rhonchi. GASTROINTESTINAL: Abdomen soft, non-tender, nondistended. No hepato-splenomegaly , or palpable masses. No guarding. MUSCULOSKELETAL: Extremities without clubbing, cyanosis, or edema. No joint tenderness, effusion, or edema noted. No calf tenderness. Negative Homans sign bilaterally. NEUROLOGICAL: Awake and alert. No focal deficits appreciated. Motor and sensory grossly within normal limits. 4 out of 5 muscle strength in all muscle groups. Normal speech. Laboratory Laboratory Tests Test 09/20/16 09/20/16 03:53 04:00 White Blood Count 21.3 Red Blood Count 1.93 Hemoglobin 5.5 Hematocrit 16.6 Mean Corpuscular Volume 85.8 Mean Corpuscular Hemoglobin 28.4 Mean Corpuscular Hemoglobin 33.2 Concent Red Cell Distribution Width 21.6 Platelet Count 426 Mean Platelet Volume 8.8 Neutrophils (%) (Auto) 73.5 Lymphocytes (%) (Auto) 12.9 Monocytes (%) (Auto) 12.8 Eosinophils (%) (Auto) 0.3 Basophils (%) (Auto) 0.5 Neutrophils # (Auto) 15.6 Lymphocytes # (Auto) 2.7 Monocytes # (Auto) 2.7 Eosinophils # (Auto) 0.1 Basophils # (Auto) 0.1 CBC Comment AUTO DIFF Differential Comment AUTO DIFF CONFIRMED Platelet Estimate NORMAL Platelet Morphology Comment NORMAL Polychromasia 3.8 Target Cells 1+ Prothrombin Time 13.1 Prothromb Time International 1.2 Ratio Activated Partial 44.9 Thromboplast Time Sodium Level 135 Potassium Level 2.9 Chloride Level 96 Carbon Dioxide Level 29.4 Anion Gap 10 Blood Urea Nitrogen 8 Creatinine 0.71 Estimat Glomerular Filtration 115 Rate Random Glucose 98 Calcium Level 8.5 Total Bilirubin 3.9 Aspartate Amino Transf 54 (AST/SGOT) Alanine Aminotransferase 32 (ALT/SGPT) Alkaline Phosphatase 260 Total Protein 8.2 Albumin 3.1 Lactic Acid Level 0.7 Date/Time Procedure Status Source Growth 09/20/16 04:00 Influenza Types A,B Antigen (INOCENTE) - Final Complete Nasal Washing NEGATIVE FOR FLU A AND B ANTIGEN.... 09/20/16 04:00 Aerobic Blood Culture Received Blood Peripheral Pending 09/20/16 04:00 Anaerobic Blood Culture Received Blood Peripheral Pending Result Diagram: 09/20/16 0353 09/20/16 0353 Imaging Last Impressions Chest X-Ray 09/20/16 0320 Signed Impressions: Service Date/Time: Friday, September 20, 2016 03:39 - CONCLUSION: No acute disease. No significant change has occurred. Devin Alamo MD Assessment and Plan Problem List: (1) Sepsis ICD Code: A41.9 Status: Acute (2) Severe anemia ICD Code: D64.9 Status: Acute (3) Hypokalemia ICD Code: E87.6 Status: Acute (4) UTI (urinary tract infection) ICD Code: N39.0 Status: Acute (5) Bacteremia ICD Code: R78.81 Status: Acute Assessment and Plan This a 30-year-old female patient with sickle cell disease and multiple blood transfusions in the past. Patient reports initially started feeling generally unwell since Sundays came to the emergency department on 09/17/2016 Urine cultures obtained 09/17/2016 positive for Escherichia coli, blood cultures 2 obtained from right upper chest port positive Escherichia coli 2. Per nursing at the time patient refused to have peripheral blood culture drawn. Patient's hemoglobin noted to be 5.5. Patient reports her usual menstrual cycle in heavy and last 3-4 days last menstrual cycle started Friday is ending. Sepsis (suspected source UTI) bacteremia and positive blood cultures Leukocytosis Urine cultures obtained 09/17/2016 positive for Escherichia coli, blood cultures 2 obtained from right upper chest port positive Escherichia coli 2. Repeat blood cultures 2 both from port and peripheral line Vancomycin and Rocephin emergency department will continue with pharmacy consulted to dose vancomycin Infectious disease consultation Severe anemia hemoglobin 5.5 Transfuse 2 units of packed red blood cells and continue close monitoring Hypokalemia potassium 2.9 with magnesium 2.2 on 09/17/2016 At on magnesium Patient refusing by mouth potassium supplementation will supplement IV Closely monitor with continuous telemetry and repeat lab draw Discussed ER provider, nursing and patient Written by Yajaira Hodge, acting as scribe for Dr. Zepeda on 09/20/16 at 06: 42. This note was transcribed by scribe [Yajaira Hodge,]. I, Dr. Jaci Zepeda personally performed the history, physical exam, and medical decision making; and confirmed the accuracy of the information in the transcribed note. Authenticated by Dr. Jaci Zepeda on 09/20/16 at 06:42. Physician Certification 2 Midnight Certification Type: Admission for Inpatient Services Order for Inpatient Services The services are ordered in accordance with Medicare regulations or non- Medicare payer requirements, as applicable. In the case of services not specified as inpatient-only, they are appropriately provided as inpatient services in accordance with the 2-midnight benchmark. Estimated LOS (days): 3 days is the estimated time the patient will need to remain in the hospital, assuming treatment plan goals are met and no additional complications. Post-Hospital Plan: Home Problem Qualifiers (1) Sepsis: Qualified Code: A41.51 - Sepsis due to Escherichia coli Yajaira Hodge September 20, 2016 06:15 Jcai Zepeda MD Oct 21, 2016 12:23
[2016-09-20] MEDS: POTASSIUM CHLOR 20 MEQ PREMIX 100 ML IV SCH ×2 (06:34→08:08)
[2016-09-20] MEDS: SODIUM CHLOR 0.9% 1000 ML INJ 1,000 ML IV SCH ×3 (06:48→16:57)
[2016-09-20] MEDS ORDERED: cefTRIAXone INJ 1,000 MG in SODIUM CHLORIDE 0.9% INJ 100 ML IV SCH (07:00)
[2016-09-20 07:38] LABS: MAGNESIUM 2.5 MG/DL (1.5-2.5)
[2016-09-20] MEDS: SODIUM CHLORIDE 0.9% FLUSH 10 ML FLUSH IV FLUSH SCH ×2 (08:09→21:25)
[2016-09-20] MEDS: diphenhydrAMINE HCL 50 MG/ML VIAL IV PUSH PRN ×3 (08:10→18:35)
[2016-09-20] MEDS: HYDROmorphone HCL PF 1 MG/ML VIAL IV PUSH PRN ×3 (08:10→18:35)
[2016-09-20] MEDS ORDERED: ACETAMINOPHEN 325 MG TAB PO ONE (13:45)
[2016-09-20] MEDS ORDERED: VANCOMYCIN INJ 900 MG in SODIUM CHLOR 0.9% 250 ML INJ 250 ML IV SCH (17:00)
--- NOTE | 2016-09-20 17:22 | PD.ID.CON ---
History of Present Illness Service ID Consult Requested By Latoya Jimenez. Reason for Consult Evaluation and Mment of E.coli bacteremia in a patient with Port for sickle cell anemia Management. Primary Care Physician Unknown Diagnoses: History of Present Illness is a 30-year-old female with sickle cell disease, status post multiple blood transfusions in the past using port. Patient's past medical history is significant for multiple infections including MRSA, MSSA, strep viridans and Escherichia coli bacteremia related to her port. Patient also has had several ED visits for Escherichia coli UTIs. Patient has had her port removed at least twice once in 2005 and another time in 2012. With this background patient presents to the emergency room on September 17, 2016 with signs and symptoms suggestive sepsis and underwent a sepsis workup. Patient did not have anybody to leave her son with and therefore decided to leave the hospital. Blood cultures from September 17, 2016 are positive for Escherichia coli which appears to be pansensitive. Patient to return to the emergency department today because of generalized pain and feeling of unwellness. Patient reports pain in her back. Urine cultures obtained on 09/17/2016 and positive for Escherichia coli and so her blood cultures. Blood cultures were drawn from the port as patient refused peripheral IV blood draws. At the time of evaluation in the emergency department her hemoglobin was 5.5. Patient also reported that she was having her menstrual cycles which are heavy for the last several days prior to admission. Patient denies any shortness of breath, nausea vomiting diarrhea constipation or chills prior to admission. Upon admission she has a temperature 101.9 but she was unaware of this fever. Patient again met criteria for sepsis. Of note patient was not on any antibiotics in the interim period between September 17, 2016 and this readmission on September 20, 2016. Infectious disease is consulted for evaluation and management of Escherichia coli bacteremia and Escherichia coli UTI in a patient with port for sickle cell anemia management. Review of Systems ROS Limitations: Poor Historian Constitutional: COMPLAINS OF: Fever, Chills, DENIES: Diaphoretic episodes, Fatigue, Weight gain, Weight loss, Dizziness, Change in appetite, Night Sweats Endocrine: DENIES: Abnorml menstrual pattern, Heat/cold intolerance, Polydipsia , Polyuria, Polyphagia Eyes: DENIES: Blurred vision, Diplopia, Eye inflammation, Eye pain, Vision loss , Photosensitivity, Double Vision Ears, nose, mouth, throat: DENIES: Tinnitus, Hearing loss, Vertigo, Nasal discharge, Oral lesions, Throat pain, Hoarseness, Ear Pain, Running Nose, Epistaxis, Sinus Pain, Toothache, Odynophagia Respiratory: DENIES: Apneas, Cough, Snoring, Wheezing, Hemoptysis, Sputum production, Shortness of breath Cardiovascular: DENIES: Chest pain, Palpitations, Syncope, Dyspnea on Exertion , PND, Lower Extremity Edema, Orthopnea, Claudication Gastrointestinal: DENIES: Abdominal pain, Black stools, Bloody stools, Constipation, Diarrhea, Nausea, Vomiting, Difficulty Swallowing, Anorexia Genitourinary: DENIES: Abnormal vaginal bleeding, Dysmenorrhea, Dyspareunia, Sexual dysfunction, Urinary frequency, Urinary incontinence, Urgency, Hematuria , Dysuria, Nocturia, Vaginal discharge Musculoskeletal: DENIES: Joint pain, Muscle aches, Stiffness, Joint Swelling, Back pain, Neck pain Integumentary: DENIES: Abnormal pigmentation, Pruritus, Rash, Nail changes, Breast masses, Breast skin changes, Nipple discharge Immunologic/allergic: DENIES: Eczema, Urticaria Neurologic: DENIES: Abnormal gait, Headache, Localized weakness, Paresthesias, Seizures, Speech Problems, Tremor, Poor Balance Psychiatric: DENIES: Anxiety, Confusion, Mood changes, Depression, Hallucinations, Agitation, Suicidal Ideation, Homicidal Ideation, Delusions Except as stated in HPI: all other systems reviewed are Neg Past Family Social History Allergies: Coded Allergies: Morphine (Verified Allergy, Severe, RASH, 09/20/16) *MDRO Multi-Drug Resistant Organism (Verified Adverse Reaction, Unknown, MRSA, 09/20/16) MRSA (blood) - 12/18/2004 Past Medical History MRSA and MSSA bacteremia port related s/p removal in 2005 E.coli bacteremia twice in 2012, s/p port removal. h/o Strep bacteremia port related. Recurrent E.coli UTIs Sickle Cell Disease Multiple blood transfusions. Past Surgical History Tubal ligation [id number] placement and removal several times (2005.2012) Cholecystectomy 1995 Tonsillectomy Reported Medications Reported Meds & Active Scripts Active Folate (Folic Acid) 1 Mg Tab 1 Mg PO DAILY Active Ordered Medications Current Medications Medications (Trade) Dose Ordered Sig/Marielle Route Start Time Stop Time Status Last Admin (NS 250 ml Inj) 250 ml @ 15 mls/hr ONCE ONCE IV 09/20/16 05:15 09/20/16 21:54 (NS Flush) 2 ml UNSCH PRN IV FLUSH 09/20/16 05:45 (NS Flush) 2 ml BID IV FLUSH 09/20/16 09:00 09/20/16 08:09 (Zofran Inj) 4 mg Q6H PRN IVP 09/20/16 05:45 Naloxone HCl 0.4 mg 0.4 mg UNSCH PRN IV 09/20/16 05:45 Ceftriaxone Sodium 1000 mg/ Sodium Chloride 100 ml @ 200 mls/hr Q24H IV 09/20/16 07:00 09/20/16 08:08 (NS 1000 ml Inj) 1,000 ml @ 200 mls/hr Q5H IV 09/20/16 07:00 09/20/16 16:57 (Dilaudid Pf Inj) 0.5 mg Q4H PRN IV PUSH 09/20/16 06:15 09/20/16 18:35 Diphenhydramine HCl 25 mg 25 mg Q4H PRN IV PUSH 09/20/16 06:15 09/20/16 18:35 Pharmacy Profile Note 0 ml @ 0 mls/hr UNSCH OTHER 09/20/16 06:30 (Vancomycin Inj/ NS 250 ml Inj) 259 ml @ 250 mls/hr Q12H IV 09/20/16 17:00 09/20/16 16:56 Miscellaneous Information SPECIFIC LAB TO BE DRAWN:VANCO TROUGH DATE TO... ONCE ONCE .XX 09/21/16 16:45 09/21/16 16:46 Family History Sister with sickle cell disease Mother had breast CA Social History Lives with her Son, Denies any tobacco, alcohol, or illicit drug use. Physical Exam Vital Signs Vital Signs Date Time Temp Pulse Resp B/P Pulse Ox O2 Delivery O2 Flow Rate FiO2 09/20/16 14:15 100.2 99 17 98/63 98 09/20/16 14:00 100.2 97 16 96/61 98 09/20/16 13:45 100.4 90 16 93/56 97 09/20/16 13:38 100.3 98 17 100/61 98 09/20/16 13:30 100.3 97 16 100/61 100 09/20/16 11:30 99.4 86 16 92/58 98 09/20/16 08:00 98.9 87 16 88/55 97 09/20/16 06:10 88 18 100 Room Air 09/20/16 05:01 99.0 85 18 98/55 98 Room Air 09/20/16 03:48 100 Room Air 09/20/16 02:48 101.9 109 18 112/61 96 Room Air Physical Exam GENERAL: This is a well-nourished, well-developed patient, in no apparent distress. SKIN: No rashes, ecchymoses or lesions. Cool and dry. HEAD: Atraumatic. Normocephalic. No temporal or scalp tenderness. EYES: Pupils equal round and reactive. Extraocular motions intact. No scleral icterus. No injection or drainage. ENT: Nose without bleeding, purulent drainage or septal hematoma. Throat without erythema, tonsillar hypertrophy or exudate. Uvula midline. Airway patent. NECK: Trachea midline. No JVD or lymphadenopathy. Supple, nontender, no meningeal signs. CARDIOVASCULAR: Regular rate and rhythm without murmurs, gallops, or rubs. RESPIRATORY: Clear to auscultation. Breath sounds equal bilaterally. No wheezes , rales, or rhonchi. GASTROINTESTINAL: Abdomen soft, non-tender, nondistended. No hepato-splenomegaly , or palpable masses. No guarding. MUSCULOSKELETAL: Extremities without clubbing, cyanosis, or edema. No joint tenderness, effusion, or edema noted. No calf tenderness. Negative Homans sign bilaterally. NEUROLOGICAL: Awake and alert. Cranial nerves II through XII intact. Motor and sensory grossly within normal limits. Five out of 5 muscle strength in all muscle groups. Normal speech. Laboratory Laboratory Tests Test 09/20/16 09/20/16 09/20/16 03:53 04:00 06:45 White Blood Count 21.3 Red Blood Count 1.93 Hemoglobin 5.5 Hematocrit 16.6 Mean Corpuscular Volume 85.8 Mean Corpuscular Hemoglobin 28.4 Mean Corpuscular Hemoglobin 33.2 Concent Red Cell Distribution Width 21.6 Platelet Count 426 Mean Platelet Volume 8.8 Neutrophils (%) (Auto) 73.5 Lymphocytes (%) (Auto) 12.9 Monocytes (%) (Auto) 12.8 Eosinophils (%) (Auto) 0.3 Basophils (%) (Auto) 0.5 Neutrophils # (Auto) 15.6 Lymphocytes # (Auto) 2.7 Monocytes # (Auto) 2.7 Eosinophils # (Auto) 0.1 Basophils # (Auto) 0.1 CBC Comment AUTO DIFF Differential Comment AUTO DIFF CONFIRMED Platelet Estimate NORMAL Platelet Morphology Comment NORMAL Polychromasia 3.8 Target Cells 1+ Prothrombin Time 13.1 Prothromb Time International 1.2 Ratio Activated Partial 44.9 Thromboplast Time Sodium Level 135 Potassium Level 2.9 Chloride Level 96 Carbon Dioxide Level 29.4 Anion Gap 10 Blood Urea Nitrogen 8 Creatinine 0.71 Estimat Glomerular Filtration 115 Rate Random Glucose 98 Calcium Level 8.5 Magnesium Level 2.5 Total Bilirubin 3.9 Aspartate Amino Transf 54 (AST/SGOT) Alanine Aminotransferase 32 (ALT/SGPT) Alkaline Phosphatase 260 Total Protein 8.2 Albumin 3.1 Lactic Acid Level 0.7 Blood Type B POSITIVE Antibody Screen NEGATIVE Crossmatch Leukocyte-Reduced Red Blood Cells Blood Bank Comment Date/Time Procedure Status Source Growth 09/20/16 04:00 Influenza Types A,B Antigen (INOCENTE) - Final Complete Nasal Washing NEGATIVE FOR FLU A AND B ANTIGEN.... 09/20/16 04:00 Aerobic Blood Culture Received Blood Peripheral Pending 09/20/16 04:00 Anaerobic Blood Culture Received Blood Peripheral Pending Result Diagram: 09/20/16 0353 09/20/16 0353 Imaging Last Impressions Chest X-Ray 09/20/16 0320 Signed Impressions: Service Date/Time: Tuesday, September 20, 2016 03:39 - CONCLUSION: No acute disease. No significant change has occurred. Devin Alamo MD Assessment and Plan Assessment and Plan Sepsis present on admission Escherichia coli bacteremia Escherichia coli UTI Sickle cell crisis likely due to infection as a precipitant. Anemia requiring transfusion Port in place Abnormal LFTs likely sepsis related or sickle cell crisis related Recs: Ultrasound kidney ureter bladder rule out stones. Patient is complaining of back pain. Rule out hydronephrosis. If any stones or hydronephrosis please consult urology. Repeat blood cultures 2 if persistent bacteremia. Continue ceftriaxone IV increase dose to 2 g in view of bacteremia. Discontinue vancomycin IV sources E coli bacteremia and UTI Follow cultures Follow clinically If any interim cultures are positive please call Dr. Corbett sooner. Dr. Corbett covering for me this weekend. Mariel Espinoza MD September 20, 2016 17:21
[2016-09-21] MEDS: diphenhydrAMINE HCL 50 MG/ML VIAL IV PUSH PRN ×5 (00:31→23:59)
[2016-09-21] MEDS: HYDROmorphone HCL PF 1 MG/ML VIAL IV PUSH PRN ×5 (00:31→23:59)
[2016-09-21] MEDS: SODIUM CHLORIDE 0.9% FLUSH 10 ML FLUSH IV FLUSH PRN (00:32)
[2016-09-21 04:25] VITALS: BP 92/62; PULSE 74; RESP 16; TEMP 98.4; O2SAT 98
[2016-09-21] MEDS: cefTRIAXone INJ 2,000 MG in SODIUM CHLORIDE 0.9% INJ 100 ML IV SCH (06:52)
[2016-09-21 07:25] LABS: AUTOMATED NEUTROPHIL # 9.3 TH/MM3 (1.8-7.7); BASOPHIL # 0.2 TH/MM3 (0-0.2); BASOPHIL % 1.2 % (0.0-2.0); EOSINOPHIL # 0.4 TH/MM3 (0-0.4); EOSINOPHIL % 2.8 % (0.0-4.0); HEMATOCRIT 26.2 % (35.0-46.0); LYMPH % 19.3 % (9.0-44.0); LYMPHOCYTE # 2.7 TH/MM3 (1.0-4.8); MEAN CELL VOLUME 85.9 FL (80.0-100.0); MEAN CORPUSCULAR HEMOGLOBIN 28.2 PG (27.0-34.0); MEAN CORPUSCULAR HGB CONC 32.9 % (32.0-36.0); NEUT % 65.7 % (16.0-70.0); PLATELET COUNT 386 TH/MM3 (150-450); RED BLOOD COUNT 3.05 MIL/MM3 (4.00-5.30); RED CELL DISTRIBUTION WIDTH 19.3 % (11.6-17.2); WHITE BLOOD COUNT 14.2 TH/MM3 (4.0-11.0)
[2016-09-21 07:27] LABS: HEMO FLAGS AUTO DIFF
[2016-09-21 08:00] VITALS: BP 92/53; PULSE 81; RESP 16; TEMP 98.1; O2SAT 96
[2016-09-21 08:38] LABS: BANDS 1 % (0-6); CORRECTED NUCLEATED RBC 1 /100 WBC (0-0); EOSINOPHILS 2 % (0-4); HOWELL-JOLLY BODIES PRESENT (NONE SEEN); MYELOCYTES 1 % (0-0); NEUTROPHIL # MANUAL DIFF 8.5 TH/MM3 (1.8-7.7); PLASMA CELLS 1 % (0-0); PLATELET ESTIMATE SMEAR NORMAL (NORMAL); PLATELET MORPHOLOGY NORMAL (NORMAL); POLYS (SEG NEUTROPHILS) 58 % (16-70); SCAN/DIFF FINAL DIFF MANUAL; TARGET CELLS 1+ (NORMAL); WBC DIFF SAMPLE 100
[2016-09-21] MEDS: SODIUM CHLORIDE 0.9% FLUSH 10 ML FLUSH IV FLUSH SCH ×2 (09:00→20:07)
--- NOTE | 2016-09-21 09:24 | HHI.PR ---
Subjective Remarks In bed. Says she feels very weak and tired. She is nauseated but dud not vomit. Zodayana helps with nausea. Able to keep some food down. Doesn't eat much, has decreased appetite. K is low again. Says she can't tolerate PO K as it makes her nauseated Objective Vitals Vital Signs Date Time Temp Pulse Resp B/P Pulse Ox O2 Delivery O2 Flow Rate FiO2 09/21/16 08:00 98.1 81 16 92/53 96 09/21/16 04:25 98.4 74 16 92/62 98 09/20/16 21:50 99.5 86 18 96/55 98 09/20/16 21:30 98.2 93 17 90/56 98 09/20/16 20:00 96.0 103 18 93/50 99 09/20/16 16:00 98.6 79 16 95/54 96 09/20/16 14:15 100.2 99 17 98/63 98 09/20/16 14:00 100.2 97 16 96/61 98 09/20/16 13:45 100.4 90 16 93/56 97 09/20/16 13:38 100.3 98 17 100/61 98 09/20/16 13:30 100.3 97 16 100/61 100 09/20/16 11:30 99.4 86 16 92/58 98 I/O 09/20/16 09/20/16 09/20/16 09/21/16 09/21/16 09/21/16 07:00 15:00 23:00 07:00 15:00 23:00 Intake Total 840 ml 240 ml Balance 840 ml 240 ml Intake Oral 840 ml 240 ml # Voids 4 2 # Bowel Movements 0 0 Result Diagram: 09/21/16 0700 09/20/16 0353 Imaging Last Impressions Chest X-Ray 09/20/16 0320 Signed Impressions: Service Date/Time: Tuesday, September 20, 2016 03:39 - CONCLUSION: No acute disease. No significant change has occurred. Devin Alamo MD Objective Remarks GENERAL: This is a well-nourished, well-developed patient, appears fatigued and generally unwell SKIN: No rashes, ecchymoses or lesions. Cool and dry. HEAD: Atraumatic. Normocephalic. No temporal or scalp tenderness. EYES: Extraocular motions intact. No scleral icterus. No injection or drainage. CARDIOVASCULAR: Regular rate and rhythm without murmurs, gallops, or rubs. RESPIRATORY: Clear to auscultation. Breath sounds equal bilaterally. No wheezes , rales, or rhonchi. GASTROINTESTINAL: Abdomen soft, non-tender, nondistended. No hepato-splenomegaly , or palpable masses. No guarding. MUSCULOSKELETAL: Extremities without clubbing, cyanosis, or edema. No joint tenderness, effusion, or edema noted. No calf tenderness. Negative Homans sign bilaterally. NEUROLOGICAL: Awake and alert. No focal deficits appreciated. Motor and sensory grossly within normal limits. 4 out of 5 muscle strength in all muscle groups. Normal speech. A/P Problem List: (1) Sepsis ICD Code: A41.9 Status: Acute (2) Severe anemia ICD Code: D64.9 Status: Acute (3) Hypokalemia ICD Code: E87.6 Status: Acute (4) UTI (urinary tract infection) ICD Code: N39.0 Status: Acute (5) Bacteremia ICD Code: R78.81 Status: Acute Assessment and Plan This a 30-year-old female patient with sickle cell disease and multiple blood transfusions in the past. Patient reports initially started feeling generally unwell since Sundays came to the emergency department on 09/17/2016 Urine cultures obtained 09/17/2016 positive for Escherichia coli, blood cultures 2 obtained from right upper chest port positive Escherichia coli 2. Per nursing at the time patient refused to have peripheral blood culture drawn. Patient's hemoglobin noted to be 5.5. Patient reports her usual menstrual cycle in heavy and last 3-4 days last menstrual cycle started Friday is ending. Sepsis (suspected source UTI) Bacteremia and positive blood cultures. E coli . Repeat blood cx Leukocytosis Urine cultures obtained 09/17/2016 positive for Escherichia coli, blood cultures 2 obtained from right upper chest port positive Escherichia coli 2. Repeat blood cultures 2 both from port and peripheral line Vancomycin and Rocephin emergency department will continue with pharmacy consulted to dose vancomycin Infectious disease consulted, appreciate recommendations Severe anemia hemoglobin 5.5 on admission Type and screen, pretreated. Transfused 2 units of packed red blood cell. Monitor H/H and transfuse if HGB < 7 Hypokalemia potassium 2.9 with magnesium 2.2 on 09/17/2016 Continue magnesium Patient refusing by mouth potassium supplementation will supplement IV Closely monitor with continuous telemetry and repeat lab draw Discussed with the patient , nurse Problem Qualifiers (1) Sepsis: Qualified Code: A41.51 - Sepsis due to Escherichia coli Gianna Nixon MD September 21, 2016 09:23
[2016-09-21] MEDS: POTASSIUM CHLOR 20 MEQ PREMIX 100 ML IV SCH ×2 (11:16→13:47)
[2016-09-21 12:00] VITALS: BP_SYST 101; BP_SYST 125; BP_DIAS 69; BP_DIAS 72; PULSE 81; PULSE 98; RESP 15; RESP 17; TEMP 96.5; TEMP 98.4; O2SAT 96; O2SAT 98
[2016-09-21 12:27] LABS: BICARBONATE 28.2 MEQ/L (21.0-32.0); POTASSIUM 3.5 MEQ/L (3.5-5.1)
[2016-09-21] MEDS: SODIUM CHLOR 0.9% 1000 ML INJ 1,000 ML IV SCH ×3 (13:00→20:06)
--- NOTE | 2016-09-21 15:48 | EC ---
Study Study Date:09/21/2016 STUDY CONCLUSIONS SUMMARY - Left ventricle: The cavity size was normal. Wall thickness was normal. Systolic function was normal. The estimated ejection fraction was in the range of 55% to 60%. Wall motion was normal; there were no regional wall motion abnormalities. - Aortic valve: Valve area: 2.03cm^2 (Vmax). If LV function is below 40, please consider prescribing an ACEI or ARB or document rationale for non-use. PROCEDURE DATA STUDY STATUS: Elective. Procedure: Transthoracic echocardiography. Image quality was good. Scanning was performed from the parasternal, apical, and subcostal acoustic windows. Study completion: The patient tolerated the procedure well. Transthoracic echocardiography. M-mode, complete 2D, complete spectral Doppler, and color Doppler. Height: Height: 60in. Weight: Weight: 126.7lb. Body mass index: BMI: 24.8kg/m^2. Body surface area: BSA: 1.54m^2. Patient status: Inpatient. CARDIAC ANATOMY LEFT VENTRICLE: The cavity size was normal. Wall thickness was normal. Systolic function was normal. The estimated ejection fraction was in the range of 55% to 60%. Wall motion was normal; there were no regional wall motion abnormalities. AORTIC VALVE: Trileaflet; normal thickness leaflets. Doppler: Transvalvular velocity was within the normal range. There was no stenosis. No regurgitation. Valve area: 2.03cm^2 (Vmax). Indexed valve area: 1.32cm^2/m^2 (Vmax). AORTA: Aortic root: The aortic root was normal in size. MITRAL VALVE: Structurally normal valve. Doppler: Transvalvular velocity was within the normal range. There was no evidence for stenosis. No regurgitation. Peak gradient: 5mm Hg (D). LEFT ATRIUM: The atrium was normal in size. RIGHT VENTRICLE: The cavity size was normal. Wall thickness was normal. PULMONIC VALVE: Doppler: Transvalvular velocity was within the normal range. There was no evidence for stenosis. No regurgitation. TRICUSPID VALVE: Structurally normal valve. Doppler: Transvalvular velocity was within the normal range. No regurgitation. PULMONARY ARTERY: The main pulmonary artery was normal-sized. Systolic pressure was within the normal range. RIGHT ATRIUM: The atrium was normal in size. PERICARDIUM: There was no pericardial effusion. SYSTEMIC VEINS: Inferior vena cava: The vessel was normal in size. Patient weight: 126.7lb _Ejection fraction:_ 65-75% _Fractional shortening:_ 32% up to 5Kg 5-11.5Kg 11.6-22.9Kg 23-45Kg 45-57Kg Aortic Root 7-13 <17 13-22 17-27 17-27 LA diam 6-13 <23 24-38 33-47 37-40 RVID 10-17 7-15 7-15 7-18 8-17 LVIDd 12-22 <32 24-38 33-47 37-40 LVPW 2-4 3-6 5-7 6-8 7-8 IVS 2-4 3-6 5-7 6-8 7-8 BASIC MEASUREMENTS ADULT NORMAL Left ventricle LV internal dimension, ED, chordal 44 mm 43-52 level, PLAX LV internal dimension, ES, chordal 33 mm 23-38 level, PLAX Fractional shortening, chordal level, *25 % >29 PLAX LV posterior wall thickness, ED 9.92 mm IVS/LVPW ratio, ED 1.11 <1.3 Ventricular septum Septal thickness, ED 11 mm Aortic valve Leaflet separation 15 mm 15-26 BASIC MEASUREMENTS ADULT NORMAL Aortic valve Leaflet separation 15 mm 15-26 Aorta Root diameter, ED 29 mm 20-37 Left atrium Anterior-posterior dimension, ES 26 mm 19-40 Anterior-posterior dimension index, ES 1.69 cm/m^2 <2.2 LA/aortic root ratio 0.9 DOPPLER MEASUREMENTS ADULT NORMAL Main pulmonary artery Pressure, S 25 mm Hg =30 Aortic valve Peak velocity, S 138 cm/s Valve area, Vmax 2.03 cm^2 Valve area index, Vmax 1.32 cm^2/m^2 Mitral valve Peak E-wave velocity 112 cm/s Peak A-wave velocity 54.3 cm/s Deceleration time *144 ms 150-230 Peak gradient, D 5 mm Hg Peak E/A ratio 2.1 Tricuspid valve Regurgitant peak velocity 227 cm/s Peak RV-RA gradient, S 21 mm Hg Maximal regurgitant velocity 227 cm/s Systemic veins Estimated CVP 10 mm Hg Right ventricle RV pressure, S *32 mm Hg <30 Pulmonic valve Peak velocity, S 128 cm/s LEGEND: Mean values are shown as u=mean value. Asterisk (*) san values outside specified normal range. Prepared and signed by Sonny Arguelles [id number]
[2016-09-21 16:00] VITALS: BP 96/59; PULSE 81; RESP 18; TEMP 99.6; O2SAT 99
[2016-09-21] MEDS ORDERED: PHARMACY ORDERED LAB ONE (16:45)
[2016-09-21 19:55] VITALS: BP 95/55; PULSE 86; RESP 16; TEMP 100.1; O2SAT 98
[2016-09-22] VITALS: BP 94/65; PULSE 79; RESP 17; TEMP 99.3; O2SAT 97
[2016-09-22] MEDS: SODIUM CHLOR 0.9% 1000 ML INJ 1,000 ML IV SCH ×2 (04:00→20:16)
[2016-09-22] MEDS: diphenhydrAMINE HCL 50 MG/ML VIAL IV PUSH PRN ×6 (04:03→23:56)
[2016-09-22] MEDS: HYDROmorphone HCL PF 1 MG/ML VIAL IV PUSH PRN ×6 (04:04→23:56)
[2016-09-22] MEDS: cefTRIAXone INJ 2,000 MG in SODIUM CHLORIDE 0.9% INJ 100 ML IV SCH (06:23)
[2016-09-22 08:00] VITALS: BP 98/57; PULSE 74; RESP 18; TEMP 97.7; O2SAT 99
--- NOTE | 2016-09-22 13:07 | HHI.PR ---
Subjective Remarks Eating better. She is refusing blood cultures. No n/v/d/c. Patient says she feel very weak. She has a weak voice. No fever or chills overnight. Objective Vitals Vital Signs Date Time Temp Pulse Resp B/P Pulse Ox O2 Delivery O2 Flow Rate FiO2 09/22/16 08:00 97.7 74 18 98/57 99 09/22/16 00:00 99.3 79 17 94/65 97 09/21/16 19:55 100.1 86 16 95/55 98 09/21/16 16:00 99.6 81 18 96/59 99 I/O 09/21/16 09/21/16 09/21/16 09/22/16 09/22/16 09/22/16 06:59 14:59 22:59 06:59 14:59 22:59 Intake Total 240 ml 2300 ml 480 ml Output Total 800 ml Balance 240 ml 1500 ml 480 ml Intake Oral 240 ml 1200 ml 480 ml IV Total 1100 ml Output Urine Total 800 ml # Voids 2 6 1 # Bowel Movements 0 Result Diagram: 09/21/16 0700 09/21/16 1150 Imaging Last Impressions Chest X-Ray 09/20/16 0320 Signed Impressions: Service Date/Time: Tuesday, September 20, 2016 03:39 - CONCLUSION: No acute disease. No significant change has occurred. Devin Alamo MD Objective Remarks GENERAL: This is a well-nourished, well-developed patient, appears fatigued and generally unwell SKIN: No rashes, ecchymoses or lesions. Cool and dry. HEAD: Atraumatic. Normocephalic. No temporal or scalp tenderness. EYES: Extraocular motions intact. No scleral icterus. No injection or drainage. CARDIOVASCULAR: Regular rate and rhythm without murmurs, gallops, or rubs. RESPIRATORY: Clear to auscultation. Breath sounds equal bilaterally. No wheezes , rales, or rhonchi. GASTROINTESTINAL: Abdomen soft, non-tender, nondistended. No hepato-splenomegaly , or palpable masses. No guarding. MUSCULOSKELETAL: Extremities without clubbing, cyanosis, or edema. No joint tenderness, effusion, or edema noted. No calf tenderness. Negative Homans sign bilaterally. NEUROLOGICAL: Awake and alert. No focal deficits appreciated. Motor and sensory grossly within normal limits. 4 out of 5 muscle strength in all muscle groups. Normal speech. A/P Problem List: (1) Sepsis ICD Code: A41.9 Status: Acute (2) Severe anemia ICD Code: D64.9 Status: Acute (3) Hypokalemia ICD Code: E87.6 Status: Acute (4) UTI (urinary tract infection) ICD Code: N39.0 Status: Acute (5) Bacteremia ICD Code: R78.81 Status: Acute Assessment and Plan This a 30-year-old female patient with sickle cell disease and multiple blood transfusions in the past. Patient reports initially started feeling generally unwell since Sundays came to the emergency department on 09/17/2016 Urine cultures obtained 09/17/2016 positive for Escherichia coli, blood cultures 2 obtained from right upper chest port positive Escherichia coli 2. Per nursing at the time patient refused to have peripheral blood culture drawn. Patient's hemoglobin noted to be 5.5. Patient reports her usual menstrual cycle in heavy and last 3-4 days last menstrual cycle started Friday is ending. Sepsis (suspected source UTI) Bacteremia and positive blood cultures. E coli . Repeat blood cx Leukocytosis Urine cultures obtained 09/17/2016 positive for Escherichia coli, blood cultures 2 obtained from right upper chest port positive Escherichia coli 2. Repeat blood cultures 2 both from port and peripheral line Vancomycin and Rocephin emergency department will continue with pharmacy consulted to dose vancomycin Infectious disease consulted, appreciate recommendations Severe anemia hemoglobin 5.5 on admission Type and screen, pretreated. Transfused 2 units of packed red blood cell. Monitor H/H and transfuse if HGB < 7 Hypokalemia potassium 2.9 with magnesium 2.2 on 09/17/2016 Continue magnesium Patient refusing by mouth potassium supplementation will supplement IV Closely monitor with continuous telemetry and repeat lab draw Discussed with the patient , nurse Problem Qualifiers (1) Sepsis: Qualified Code: A41.51 - Sepsis due to Escherichia coli Gianna Nixon MD September 22, 2016 13:07
[2016-09-22 16:00] VITALS: BP 110/70; PULSE 75; RESP 18; TEMP 97.5; O2SAT 98
[2016-09-22] MEDS: SODIUM CHLORIDE 0.9% FLUSH 10 ML FLUSH IV FLUSH SCH (20:16)
[2016-09-22 20:20] VITALS: BP 100/69; PULSE 85; RESP 17; TEMP 99.2; O2SAT 100
[2016-09-22] MEDS: SODIUM CHLORIDE 0.9% FLUSH 10 ML FLUSH IV FLUSH PRN (23:56)
[2016-09-23 00:30] VITALS: BP 90/59; PULSE 73; RESP 17; TEMP 98.6; O2SAT 99
[2016-09-23] MEDS: diphenhydrAMINE HCL 50 MG/ML VIAL IV PUSH PRN (04:01)
[2016-09-23] MEDS: HYDROmorphone HCL PF 1 MG/ML VIAL IV PUSH PRN (04:02)
[2016-09-23 04:19] VITALS: BP 106/62; PULSE 78; RESP 17; TEMP 97.3; O2SAT 100
[2016-09-23] MEDS: SODIUM CHLOR 0.9% 1000 ML INJ 1,000 ML IV SCH ×2 (05:00)
[2016-09-23] MEDS: cefTRIAXone INJ 2,000 MG in SODIUM CHLORIDE 0.9% INJ 100 ML IV SCH (06:42)
--- NOTE | 2016-09-23 09:54 | HHI.DS ---
Discharge Summary Admission Date September 20, 2016 at 05:11 Discharge Date: September 23, 2016 Admitting Diagnosis sepsis. Anemia. Hypokalemia. (1) Sepsis ICD Code: A41.9 Diagnosis: Principal (2) Severe anemia ICD Code: D64.9 Diagnosis: Principal (3) Hypokalemia ICD Code: E87.6 Diagnosis: Principal (4) UTI (urinary tract infection) ICD Code: N39.0 Diagnosis: Principal (5) Bacteremia ICD Code: R78.81 Diagnosis: Principal Procedures none Brief History - From Admission This a 30-year-old female patient with sickle cell disease and multiple blood transfusions in the past. Patient reports initially started feeling generally unwell on Sundays came to the emergency department on 09/17/2016 and had a temperature of 11.9 with heart rate of 122 blood and urine cultures were obtained and patient was advised to stay in the hospital for admission and further treatment. Patient left the hospital stating that she had arrange care for her son. Patient returned to emergency department today because of generalized pain. Patient reports the pain is, "all over," and "real bad." Patient unable to elaborate further. Patient patient reports this pain is not consistent with her typical sickle cell crises as with her typical sickle cell crises she pain primarily located in her back. Urine cultures obtained 2016 positive for Escherichia coli, blood cultures 2 obtained from right upper chest port positive Escherichia coli 2. Per nursing at the time patient refused to have peripheral blood culture drawn. Patient's hemoglobin noted to be 5.5. Patient reports her usual menstrual cycle in heavy and last 3-4 days last menstrual cycle started Friday is ending. Patient denies shortness of breath nausea vomiting diarrhea constipation or chills. Patient also noted have a temperature of 101.9 upon arrival reports she was unaware she had a fever. CBC/BMP: 09/21/16 0700 09/21/16 1150 Significant Findings Laboratory Tests Test 09/21/16 09/21/16 07:00 11:50 White Blood Count 14.2 TH/MM3 (4.0-11.0) Red Blood Count 3.05 MIL/MM3 (4.00-5.30) Hemoglobin 8.6 GM/DL (11.6-15.3) Hematocrit 26.2 % (35.0-46.0) Red Cell Distribution Width 19.3 % (11.6-17.2) Monocytes (%) (Auto) 11.0 % (0.0-8.0) Neutrophils # (Auto) 9.3 TH/MM3 (1.8-7.7) Monocytes # (Auto) 1.6 TH/MM3 (0-0.9) Neutrophils # (Manual) 8.5 TH/MM3 (1.8-7.7) Myelocytes 1 % (0-0) Nucleated Red Blood Cells 1 /100 WBC (0-0) Plasma Cells 1 % (0-0) Target Cells 1+ (NORMAL) Blood Urea Nitrogen 2 MG/DL (7-18) Random Glucose 108 MG/DL (74-106) Calcium Level 7.9 MG/DL (8.5-10.1) PE at Discharge GENERAL: This is a well-nourished, well-developed patient, appears fatigued and generally unwell SKIN: No rashes, ecchymoses or lesions. Cool and dry. HEAD: Atraumatic. Normocephalic. No temporal or scalp tenderness. EYES: Extraocular motions intact. No scleral icterus. No injection or drainage. CARDIOVASCULAR: Regular rate and rhythm without murmurs, gallops, or rubs. RESPIRATORY: Clear to auscultation. Breath sounds equal bilaterally. No wheezes , rales, or rhonchi. GASTROINTESTINAL: Abdomen soft, non-tender, nondistended. No hepato-splenomegaly , or palpable masses. No guarding. MUSCULOSKELETAL: Extremities without clubbing, cyanosis, or edema. No joint tenderness, effusion, or edema noted. No calf tenderness. Negative Homans sign bilaterally. NEUROLOGICAL: Awake and alert. No focal deficits appreciated. Motor and sensory grossly within normal limits. 4 out of 5 muscle strength in all muscle groups. Normal speech. Pt update on day of discharge Refusing repeat blood cultures. patient left A Hospital Course This a 30-year-old female patient with sickle cell disease and multiple blood transfusions in the past. Patient reports initially started feeling generally unwell since Sundays came to the emergency department on 09/17/2016 Urine cultures obtained 09/17/2016 positive for Escherichia coli, blood cultures 2 obtained from right upper chest port positive Escherichia coli 2. Per nursing at the time patient refused to have peripheral blood culture drawn. Patient's hemoglobin noted to be 5.5. Patient reports her usual menstrual cycle in heavy and last 3-4 days last menstrual cycle started Friday is ending. Sepsis (suspected source UTI) Bacteremia and positive blood cultures. E coli . Repeat blood cx Leukocytosis Urine cultures obtained 09/17/2016 positive for Escherichia coli, blood cultures 2 obtained from right upper chest port positive Escherichia coli 2. Repeat blood cultures 2 both from port and peripheral line Vancomycin and Rocephin emergency department will continue with pharmacy consulted to dose vancomycin Infectious disease consulted, appreciate recommendations Severe anemia hemoglobin 5.5 on admission Type and screen, pretreated. Transfused 2 units of packed red blood cell. Monitor H/H and transfuse if HGB < 7 Hypokalemia potassium 2.9 with magnesium 2.2 on 09/17/2016 Continue magnesium Patient refusing by mouth potassium supplementation will supplement IV Closely monitor with continuous telemetry and repeat lab draw Refusing repeat blood cultures , treatments as well. Patient left AMA Pt Condition on Discharge: Stable Discharge Disposition: Discharge Home (AMA) Discharge Time: <= 30 minutes Discharge Instructions DIET: Follow Instructions for: As Tolerated, No Restrictions Activities you can perform: Regular-No Restrictions Gianna Nixon MD September 23, 2016 09:54
[2016-09-23] MEDS ORDERED: HYDR-3535 PO (11:26)
== END 2016-09-23 08:57 | disposition left against medical advice (07) | DRG 872 ==
LOC: NEPC 02:46 → NEDA 05:11 → N06B 07:00
PROVIDERS: ADMIT Hospitalist; ATTEND Hospitalist
PROC: 30233N1 Transfusion of Nonautologous Red Blood Cells into Peripheral Vein, Percutaneous Approach (ICD-10-PCS; principal; 2016-09-20)
DX: A41.51 Sepsis due to Escherichia coli [E. coli] (principal); D57.1 Sickle-cell disease without crisis; N39.0 Urinary tract infection, site not specified; E87.6 Hypokalemia; G47.00 Insomnia, unspecified; B96.20 Unspecified Escherichia coli [E. coli] as the cause of diseases classified elsewhere
CPT/HCPCS: 36430; 71010; 76937; 80048; 80053; 83605; 83735; 85007; 85025; 85027; 85610; 85730; 86850; 86900; 86901; 86920; 87040; 87641; 87804; 93306; 96374; 96375; J0696; J1170; J1200; J3370; J3480; J7030; J7050; P9016

== ENCOUNTER 2016-09-23 10:21 | Inpatient (IN) | payer OTHER ==
[~2016-09-23] VITALS: Ht 162.6 cm; Wt 64.9 kg
[~2016-09-23 10:21] MED LIST changes: -POTA10TA8 PO
[2016-09-23 10:24] VITALS: BP 111/74; PULSE 92; RESP 20; TEMP 99.2; O2SAT 97
[2016-09-23] MEDS ORDERED: HYDR-3535 PO (11:26)
[2016-09-23] MEDS ORDERED: diphenhydrAMINE HCL 50 MG/ML VIAL IV PUSH ONE (11:30)
[2016-09-23] MEDS ORDERED: ONDANSETRON HCL 4 MG/2 ML VIAL IVP ONE (11:30)
[2016-09-23] MEDS ORDERED: HYDROmorphone HCL PF 1 MG/ML VIAL IVS ONE (11:30)
[2016-09-23] MEDS ORDERED: SODIUM CHLOR 0.9% 1000 ML INJ 1,000 ML IV ONE (11:45)
[2016-09-23] MEDS ORDERED: BISACODYL 10 MG SUPP RECTAL PRN (12:00)
[2016-09-23] MEDS ORDERED: ONDANSETRON HCL 4 MG/2 ML VIAL IVP PRN (12:00)
[2016-09-23] MEDS ORDERED: SODIUM CHLORIDE 0.9% FLUSH 10 ML FLUSH IV FLUSH PRN (12:00)
[2016-09-23] MEDS ORDERED: ACETAMINOPHEN 325 MG TAB PO PRN (12:00)
[2016-09-23] MEDS ORDERED: VANCOMYCIN INJ 1,000 MG in SODIUM CHLOR 0.9% 250 ML INJ 250 ML IV SCH (12:00)
[2016-09-23] MEDS ORDERED: Vancomycin Consult Pharmacy 1 EA OTHER SCH (12:00)
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
[2016-09-23 12:09] VITALS: O2SAT 97
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
[2016-09-23 12:30] VITALS: BP 118/77; PULSE 90; RESP 20; TEMP 99.2; O2SAT 99
[2016-09-23 12:41] LABS: AUTOMATED NEUTROPHIL # 8.4 TH/MM3 (1.8-7.7); BASOPHIL # 0.1 TH/MM3 (0-0.2); BASOPHIL % 0.9 % (0.0-2.0); EOSINOPHIL # 0.2 TH/MM3 (0-0.4); EOSINOPHIL % 2.1 % (0.0-4.0); HEMATOCRIT 30.2 % (35.0-46.0); HEMO FLAGS DIFF FINAL; LYMPH % 12.5 % (9.0-44.0); LYMPHOCYTE # 1.3 TH/MM3 (1.0-4.8); MEAN CORPUSCULAR HEMOGLOBIN 28.4 PG (27.0-34.0); MEAN CORPUSCULAR HGB CONC 32.7 % (32.0-36.0); MONO % 6.3 % (0.0-8.0); NEUT % 78.2 % (16.0-70.0); PLATELET COUNT 543 TH/MM3 (150-450); RED BLOOD COUNT 3.48 MIL/MM3 (4.00-5.30); WHITE BLOOD COUNT 10.7 TH/MM3 (4.0-11.0)
[2016-09-23] MEDS: HEPARIN SODIUM - SQ 10,000 UNITS/ML VIAL SQ SCH (13:00)
[2016-09-23 13:05] LABS: ALKALINE PHOSPHATASE 206 U/L (45-117); ALT (GPT) 57 U/L (10-53); ANION GAP 8 MEQ/L (5-15); AST (GOT) 52 U/L (15-37); BICARBONATE 24.7 MEQ/L (21.0-32.0); BLOOD UREA NITROGEN 4 MG/DL (7-18); CHLORIDE 106 MEQ/L (98-107); GLOMERULAR FILTRATION RATE 158 ML/MIN (>89); POTASSIUM 3.9 MEQ/L (3.5-5.1); SODIUM (NA) 139 MEQ/L (136-145)
[2016-09-23] MEDS ORDERED: VANCOMYCIN 1,000 MG/NS 250 ML IV ONE ×2 (13:15)
[2016-09-23] MEDS: SODIUM CHLOR 0.9% 1000 ML INJ 1,000 ML IV SCH ×2 (13:32→21:40)
[2016-09-23] MEDS: cefTRIAXone INJ 2,000 MG in SODIUM CHLORIDE 0.9% INJ 100 ML IV SCH (13:32)
[2016-09-23] MEDS: VANCOMYCIN 1,000 MG/NS 250 ML IV SCH ×4 (14:00→21:39)
[2016-09-23 14:27] VITALS: BP 121/84; PULSE 88; RESP 20; O2SAT 98
[2016-09-23] MEDS ORDERED: NALOXONE HCL 0.4 MG/ML AMP IV PRN (14:30)
[2016-09-23] MEDS ORDERED: HYDROmorphone HCL PF 1 MG/ML VIAL IV PRN ×2 (14:30→15:45)
[2016-09-23 14:49] LABS: LDH SERUM 347 U/L (84-246)
[2016-09-23] MEDS: diphenhydrAMINE HCL 50 MG/ML VIAL IV PUSH PRN ×2 (16:18→20:33)
[2016-09-23] MEDS: HYDROmorphone HCL PF 1 MG/ML VIAL IV PRN ×2 (16:19→20:34)
[2016-09-23 20:00] VITALS: BP 100/68; PULSE 79; RESP 17; TEMP 97; O2SAT 98
[2016-09-23] MEDS: SODIUM CHLORIDE 0.9% FLUSH 10 ML FLUSH IV FLUSH SCH (21:00)
[2016-09-23 22:15] VITALS: O2SAT 98
[2016-09-23 23:06] LABS: AMPHETAMINE, URINE NEG (NEG); BARBITURATES, URINE NEG (NEG); COCAINE, URINE NEG (NEG)
[2016-09-24] VITALS (8 sets, daily range): BP systolic 98–106; BP diastolic 55–68; PULSE 74–80; RESP 17–20; TEMP 96.8–98.6; O2SAT 67–97
[2016-09-24] MEDS: diphenhydrAMINE HCL 50 MG/ML VIAL IV PUSH PRN ×5 (00:10→20:12)
[2016-09-24] MEDS: HEPARIN SODIUM - SQ 10,000 UNITS/ML VIAL SQ SCH ×3 (00:10→12:14)
[2016-09-24] MEDS: HYDROmorphone HCL PF 1 MG/ML VIAL IV PRN ×6 (00:11→20:18)
[2016-09-24 05:57] LABS: AUTOMATED NEUTROPHIL # 4.7 TH/MM3 (1.8-7.7); BASOPHIL # 0.1 TH/MM3 (0-0.2); BASOPHIL % 0.7 % (0.0-2.0); EOSINOPHIL # 0.4 TH/MM3 (0-0.4); EOSINOPHIL % 4.5 % (0.0-4.0); HEMATOCRIT 26.9 % (35.0-46.0); HEMO FLAGS DIFF FINAL; LYMPH % 30.7 % (9.0-44.0); LYMPHOCYTE # 2.7 TH/MM3 (1.0-4.8); MEAN CELL VOLUME 86.7 FL (80.0-100.0); MEAN CORPUSCULAR HEMOGLOBIN 28.8 PG (27.0-34.0); MEAN CORPUSCULAR HGB CONC 33.2 % (32.0-36.0); MONO % 11.4 % (0.0-8.0); NEUT % 52.7 % (16.0-70.0); PLATELET COUNT 516 TH/MM3 (150-450); RED BLOOD COUNT 3.11 MIL/MM3 (4.00-5.30); RED CELL DISTRIBUTION WIDTH 19.2 % (11.6-17.2)
[2016-09-24] MEDS: VANCOMYCIN 1,000 MG/NS 250 ML IV SCH ×6 (06:29→23:41)
[2016-09-24 06:33] LABS: ALKALINE PHOSPHATASE 177 U/L (45-117); ALT (GPT) 45 U/L (10-53); ANION GAP 7 MEQ/L (5-15); AST (GOT) 43 U/L (15-37); BICARBONATE 25.8 MEQ/L (21.0-32.0); BLOOD UREA NITROGEN 2 MG/DL (7-18); CHLORIDE 107 MEQ/L (98-107); GLOMERULAR FILTRATION RATE 201 ML/MIN (>89); SODIUM (NA) 140 MEQ/L (136-145); TOTAL BILIRUBIN ADULT 0.7 MG/DL (0.2-1.0)
[2016-09-24] MEDS: SODIUM CHLOR 0.9% 1000 ML INJ 1,000 ML IV SCH ×2 (07:49→16:06)
--- NOTE | 2016-09-24 07:54 | HHI.PR ---
Subjective Remarks Patient is in bed, per nurse she is not moving much. She is complaining of pain all over the body especially in her joints says she has less abdominal pain today. She was able to eat regular food. No fever or chills. Objective Vitals Vital Signs Date Time Temp Pulse Resp B/P Pulse Ox O2 Delivery O2 Flow Rate FiO2 09/24/16 04:00 96.8 76 17 104/68 97 09/24/16 00:00 96.9 80 17 98/55 96 09/23/16 22:15 98 21 09/23/16 20:00 97.0 79 17 100/68 98 09/23/16 14:27 88 20 121/84 98 Room Air 09/23/16 12:30 99.2 90 20 118/77 99 Room Air 09/23/16 12:18 18 09/23/16 12:09 97 21 09/23/16 11:21 100 18 100 Room Air 09/23/16 10:24 99.2 92 20 111/74 97 Room Air I/O 09/23/16 09/23/16 09/23/16 09/24/16 09/24/16 09/24/16 07:00 15:00 23:00 07:00 15:00 23:00 Intake Total 240 ml 1440 ml 600 ml 1888 ml Output Total 450 ml 1100 ml 1200 ml Balance -210 ml 340 ml -600 ml 1888 ml Intake Oral 240 ml 1440 ml 600 ml IV Total 1888 ml Output Urine Total 450 ml 1100 ml 1200 ml Result Diagram: 09/24/16 0416 09/24/16 0416 Objective Remarks GENERAL: This is a well-nourished, well-developed patient, in no apparent distress. SKIN: No rashes, ecchymoses or lesions. Cool and dry. HEAD: Atraumatic. Normocephalic. No temporal or scalp tenderness. EYES: Pupils equal round and reactive. Extraocular motions intact. No scleral icterus. No injection or drainage. ENT: Nose without bleeding, purulent drainage or septal hematoma. Throat without erythema, tonsillar hypertrophy or exudate. Uvula midline. Airway patent. NECK: Trachea midline. No JVD or lymphadenopathy. Supple, nontender, no meningeal signs. CARDIOVASCULAR: Regular rate and rhythm without murmurs, gallops, or rubs. RESPIRATORY: Clear to auscultation. Breath sounds equal bilaterally. No wheezes , rales, or rhonchi. GASTROINTESTINAL: Abdomen soft, non-tender, nondistended. No hepato-splenomegaly , or palpable masses. No guarding. MUSCULOSKELETAL: Extremities without clubbing, cyanosis, or edema. No joint tenderness, effusion, or edema noted. No calf tenderness. Negative Homans sign bilaterally. NEUROLOGICAL: Awake and alert. Cranial nerves II through XII intact. Motor and sensory grossly within normal limits. Five out of 5 muscle strength in all muscle groups. Normal speech. A/P Assessment and Plan This a 30-year-old female patient with sickle cell disease and multiple blood transfusions in the past. Patient reports initially started feeling generally unwell since Sundays came to the emergency department on 09/17/2016 Urine cultures obtained 09/17/2016 positive for Escherichia coli, blood cultures 2 obtained from right upper chest port positive Escherichia coli 2. Per nursing at the time patient refused to have peripheral blood culture drawn. Patient's hemoglobin noted to be 5.5. Patient reports her usual menstrual cycle in heavy and last 3-4 days last menstrual cycle started Friday is ending. Sepsis (suspected source UTI) bacteremia and positive blood cultures Leukocytosis Urine cultures obtained 09/17/2016 positive for Escherichia coli, blood cultures 2 obtained from right upper chest port positive Escherichia coli 2. Repeat blood cultures 2 both from port and peripheral line Vancomycin and Rocephin IV abx pharmacy consulted to dose vancomycin Infectious disease consultation Anemia hemoglobin is stable She had a hgb of 5.5 last admission and received 2 units of packed red blood cells. Will monitor H/H Hypokalemia potassium 2.9 with magnesium 2.2 on 09/17/2016, persistently low during the stay, replaced. Today normal. Will monitor. Patient refusing by mouth potassium supplementation will supplement IV if need. Closely monitor, repeat lab Discussed with the nurse and the patient Discharge plan Patient is with bacteremia. Blood cultures 09/23/16 negative to date. Per infectious disease if blood cultures remain negative for 72 hours we'll consider discharging patient on by mouth antibiotics. If blood cultures are positive needs to remove port and sent the tip for culture. Gianna Nixon MD September 24, 2016 07:54
[2016-09-24] MEDS: SODIUM CHLORIDE 0.9% FLUSH 10 ML FLUSH IV FLUSH SCH ×2 (08:06→21:00)
[2016-09-24] MEDS: FOLIC ACID 1 MG TAB PO SCH (08:09)
--- NOTE | 2016-09-24 11:23 | PD.ID.CON ---
History of Present Illness Service ID Consult Requested By Reason for Consult Evaluation and Mment of E.coli bacteremia in a patient with PORT. Primary Care Physician No Primary Care Physician Diagnoses: History of Present Illness is a 30-year-old female with sickle cell disease, status post multiple blood transfusions in the past using port. Patient's past medical history is significant for multiple infections including MRSA, MSSA, strep viridans and Escherichia coli bacteremia related to her port. Patient also has had several ED visits for Escherichia coli UTIs. Patient has had her port removed at least twice once in 2005 and another time in 2012. With this background patient presents to the emergency room on September 17, 2016 with signs and symptoms suggestive sepsis and underwent a sepsis workup. Patient did not have anybody to leave her son with and therefore decided to leave the hospital. Blood cultures from September 17, 2016 are positive for Escherichia coli which appears to be pansensitive. Patient to return to the emergency department today because of generalized pain and feeling of unwellness. Patient reports pain in her back. Urine cultures obtained on 09/17/2016 and positive for Escherichia coli and so her blood cultures. Blood cultures were drawn from the port as patient refused peripheral IV blood draws. At the time of evaluation in the emergency department her hemoglobin was 5.5. Patient also reported that she was having her menstrual cycles which are heavy for the last several days prior to admission. Patient denies any shortness of breath, nausea vomiting diarrhea constipation or chills prior to admission. Upon admission she has a temperature 101.9 but she was unaware of this fever. Patient again met criteria for sepsis. Of note patient was not on any antibiotics in the interim period between September 17, 2016 and this readmission on September 20, 2016. Infectious disease is consulted for evaluation and management of Escherichia coli bacteremia and Escherichia coli UTI in a patient with port for sickle cell anemia management. Review of Systems ROS Limitations: Poor Historian Constitutional: DENIES: Diaphoretic episodes, Fatigue, Fever, Weight gain, Weight loss, Chills, Dizziness, Change in appetite, Night Sweats Endocrine: DENIES: Abnorml menstrual pattern, Heat/cold intolerance, Polydipsia , Polyuria, Polyphagia Eyes: DENIES: Blurred vision, Diplopia, Eye inflammation, Eye pain, Vision loss , Photosensitivity, Double Vision Ears, nose, mouth, throat: DENIES: Tinnitus, Hearing loss, Vertigo, Nasal discharge, Oral lesions, Throat pain, Hoarseness, Ear Pain, Running Nose, Epistaxis, Sinus Pain, Toothache, Odynophagia Respiratory: DENIES: Apneas, Cough, Snoring, Wheezing, Hemoptysis, Sputum production, Shortness of breath Cardiovascular: DENIES: Chest pain, Palpitations, Syncope, Dyspnea on Exertion , PND, Lower Extremity Edema, Orthopnea, Claudication Gastrointestinal: DENIES: Abdominal pain, Black stools, Bloody stools, Constipation, Diarrhea, Nausea, Vomiting, Difficulty Swallowing, Anorexia Genitourinary: DENIES: Abnormal vaginal bleeding, Dysmenorrhea, Dyspareunia, Sexual dysfunction, Urinary frequency, Urinary incontinence, Urgency, Hematuria , Dysuria, Nocturia, Vaginal discharge Musculoskeletal: COMPLAINS OF: Joint pain, Muscle aches, DENIES: Stiffness, Joint Swelling, Back pain, Neck pain Integumentary: DENIES: Abnormal pigmentation, Pruritus, Rash, Nail changes, Breast masses, Breast skin changes, Nipple discharge Hematologic/lymphatic: DENIES: Bruising, Lymphadenopathy Immunologic/allergic: DENIES: Eczema, Urticaria Neurologic: DENIES: Abnormal gait, Headache, Localized weakness, Paresthesias, Seizures, Speech Problems, Tremor, Poor Balance Psychiatric: DENIES: Anxiety, Confusion, Mood changes, Depression, Hallucinations, Agitation, Suicidal Ideation, Homicidal Ideation, Delusions Except as stated in HPI: all other systems reviewed are Neg Past Family Social History Allergies: Coded Allergies: Morphine (Verified Allergy, Severe, RASH, 09/23/16) *MDRO Multi-Drug Resistant Organism (Verified Adverse Reaction, Unknown, MRSA, 09/24/16) MRSA (blood) - 12/18/2004 MRSA PCR screen NEGATIVE 08/27/16 & 09/21/16 Cleared per Infection Control Past Medical History MRSA and MSSA bacteremia port related s/p removal in 2005 E.coli bacteremia twice in 2012, s/p port removal. h/o Strep bacteremia port related. Recurrent E.coli UTIs Sickle Cell Disease Multiple blood transfusions. Past Surgical History Tubal ligation [id number] placement and removal several times (2005.2012) Cholecystectomy 1995 Tonsillectomy. Reported Medications Reported Meds & Active Scripts Active Folate (Folic Acid) 1 Mg Tab 1 Mg PO DAILY Reported Lortab (Hydrocodone-Acetaminophen) 10-325 Mg Tab 1 Tab PO Q6H PRN Active Ordered Medications Current Medications Medications (Trade) Dose Ordered Sig/Marielle Route Start Time Stop Time Status Last Admin (NS 1000 ml Inj) 1,000 ml @ 100 mls/hr Q10H IV 09/23/16 11:49 09/24/16 07:49 (NS Flush) 2 ml UNSCH PRN IV FLUSH 09/23/16 12:00 (NS Flush) 2 ml BID IV FLUSH 09/23/16 21:00 (Tylenol) 650 mg Q4H PRN PO 09/23/16 12:00 (Zofran Inj) 4 mg Q6H PRN IVP 09/23/16 12:00 (Dulcolax Supp) 10 mg DAILY PRN RECTAL 09/23/16 12:00 (Heparin Inj) 5,000 units Q12H SQ 09/23/16 13:00 Folic Acid 1 mg 1 mg DAILY PO 09/24/16 09:00 09/24/16 08:09 Ceftriaxone Sodium 2000 mg/ Sodium Chloride 100 ml @ 200 mls/hr Q24H IV 09/23/16 13:00 09/24/16 12:18 Pharmacy Profile Note 0 ml @ 0 mls/hr UNSCH OTHER 09/23/16 12:00 (Vancomycin Inj/ NS 250 ml Inj) 250 ml @ 250 mls/hr Q8H IV 09/23/16 14:00 09/24/16 06:29 (Roxicodone) 10 mg Q4H PRN PO 09/23/16 14:30 09/23/16 15:08 (Roxicodone) 5 mg Q4H PRN PO 09/23/16 14:30 (Narcan Inj) 0.4 mg UNSCH PRN IV 09/23/16 14:30 (Dilaudid Pf Inj) 0.5 mg Q4H PRN IV 09/23/16 15:45 (Dilaudid Pf Inj) 1 mg Q3H PRN IV 09/23/16 15:45 09/24/16 12:09 (Dilaudid Pf Inj) 1 mg Q4H PRN IV 09/23/16 15:45 09/23/16 20:34 (Benadryl Inj) 25 mg Q4H PRN IV PUSH 09/23/16 15:45 09/24/16 12:08 Family History Sister with sickle cell disease Mother had breast CA. Social History Lives with her Son, Denies any tobacco, alcohol, or illicit drug use. Physical Exam Vital Signs Vital Signs Date Time Temp Pulse Resp B/P Pulse Ox O2 Delivery O2 Flow Rate FiO2 09/24/16 09:30 97 21 09/24/16 08:00 97.2 74 20 103/60 97 09/24/16 04:00 96.8 76 17 104/68 97 09/24/16 00:00 96.9 80 17 98/55 96 09/23/16 22:15 98 21 09/23/16 20:00 97.0 79 17 100/68 98 09/23/16 14:27 88 20 121/84 98 Room Air 09/23/16 12:30 99.2 90 20 118/77 99 Room Air 09/23/16 12:18 18 09/23/16 12:09 97 21 Physical Exam GENERAL: This is a well-nourished, well-developed patient, in no apparent distress. SKIN: No rashes, ecchymoses or lesions. Cool and dry. HEAD: Atraumatic. Normocephalic. No temporal or scalp tenderness. EYES: Pupils equal round and reactive. Extraocular motions intact. No scleral icterus. No injection or drainage. ENT: Nose without bleeding, purulent drainage or septal hematoma. Throat without erythema, tonsillar hypertrophy or exudate. Uvula midline. Airway patent. NECK: Trachea midline. Supple, nontender, no meningeal signs. Port with no e.o infection. CARDIOVASCULAR: RRR RESPIRATORY: Clear to auscultation. Breath sounds equal bilaterally. No wheezes , rales, or rhonchi. GASTROINTESTINAL: Abdomen soft, non-tender, nondistended. MUSCULOSKELETAL: Extremities without clubbing, cyanosis, or edema. NEUROLOGICAL: Awake and alert. Grossly non focal Psych: cooperative IV line sites with no e.o infection. Laboratory Laboratory Tests Test 09/23/16 09/23/16 09/24/16 11:50 22:00 04:16 White Blood Count 10.7 9.0 Red Blood Count 3.48 3.11 Hemoglobin 9.9 8.9 Hematocrit 30.2 26.9 Mean Corpuscular Volume 87.0 86.7 Mean Corpuscular Hemoglobin 28.4 28.8 Mean Corpuscular Hemoglobin 32.7 33.2 Concent Red Cell Distribution Width 20.0 19.2 Platelet Count 543 516 Mean Platelet Volume 8.6 8.1 Neutrophils (%) (Auto) 78.2 52.7 Lymphocytes (%) (Auto) 12.5 30.7 Monocytes (%) (Auto) 6.3 11.4 Eosinophils (%) (Auto) 2.1 4.5 Basophils (%) (Auto) 0.9 0.7 Neutrophils # (Auto) 8.4 4.7 Lymphocytes # (Auto) 1.3 2.7 Monocytes # (Auto) 0.7 1.0 Eosinophils # (Auto) 0.2 0.4 Basophils # (Auto) 0.1 0.1 CBC Comment DIFF FINAL DIFF FINAL Differential Comment Sodium Level 139 140 Potassium Level 3.9 4.0 Chloride Level 106 107 Carbon Dioxide Level 24.7 25.8 Anion Gap 8 7 Blood Urea Nitrogen 4 2 Creatinine 0.54 0.44 Estimat Glomerular Filtration 158 201 Rate Random Glucose 101 81 Calcium Level 9.2 8.5 Total Bilirubin 1.0 0.7 Aspartate Amino Transf 52 43 (AST/SGOT) Alanine Aminotransferase 57 45 (ALT/SGPT) Alkaline Phosphatase 206 177 Lactate Dehydrogenase 347 Total Protein 8.4 7.3 Albumin 3.1 2.5 Urine Opiates Screen NEG Urine Barbiturates Screen NEG Urine Amphetamines Screen NEG Urine Benzodiazepines Screen NEG Urine Cocaine Screen NEG Urine Cannabinoids Screen NEG Date/Time Procedure Status Source Growth 09/23/16 11:55 Aerobic Blood Culture - Preliminary Resulted Blood Peripheral NO GROWTH IN 1 DAY 09/23/16 11:55 Anaerobic Blood Culture - Preliminary Resulted Blood Peripheral NO GROWTH IN 1 DAY Result Diagram: 09/24/16 0416 09/24/16 0416 Assessment and Plan Assessment and Plan Sepsis present on admission E.coli bacteremia E.coli UTI/? Pyelonephritis. Sickle cell crisis Recs: Ceftriaxone 2 gm IV q24hrs Hopefully if repeat cultures from today are negative at 72 hrs we can transition to oral high dose Levaquin on discharge. Vasquez franco. Mariel Espinoza MD September 24, 2016 11:23
[2016-09-24] MEDS: cefTRIAXone INJ 2,000 MG in SODIUM CHLORIDE 0.9% INJ 100 ML IV SCH (12:18)
[2016-09-24] MEDS ORDERED: PHARMACY ORDERED LAB ONE (13:45)
[2016-09-25] VITALS (8 sets, daily range): BP systolic 93–107; BP diastolic 58–67; PULSE 65–79; RESP 15–17; TEMP 97.5–98.9; O2SAT 96–99
[2016-09-25] MEDS: diphenhydrAMINE HCL 50 MG/ML VIAL IV PUSH PRN ×7 (00:15→23:58)
[2016-09-25] MEDS: HYDROmorphone HCL PF 1 MG/ML VIAL IV PRN ×7 (00:19→23:59)
[2016-09-25] MEDS: SODIUM CHLOR 0.9% 1000 ML INJ 1,000 ML IV SCH ×2 (00:19→13:49)
[2016-09-25] MEDS: HEPARIN SODIUM - SQ 10,000 UNITS/ML VIAL SQ SCH ×2 (00:21→13:00)
[2016-09-25] MEDS: VANCOMYCIN 1,000 MG/NS 250 ML IV SCH ×4 (06:37→14:00)
[2016-09-25] MEDS: FOLIC ACID 1 MG TAB PO SCH (07:57)
[2016-09-25] MEDS: SODIUM CHLORIDE 0.9% FLUSH 10 ML FLUSH IV FLUSH SCH ×2 (09:00→21:00)
[2016-09-25] MEDS: cefTRIAXone INJ 2,000 MG in SODIUM CHLORIDE 0.9% INJ 100 ML IV SCH (13:17)
--- NOTE | 2016-09-25 15:24 | HHI.PR ---
Subjective Remarks no fever or chills "comfortable" denies any dysuria, cough Objective Vitals Vital Signs Date Time Temp Pulse Resp B/P Pulse Ox O2 Delivery O2 Flow Rate FiO2 09/25/16 12:00 97.5 67 16 100/64 97 09/25/16 10:26 98 09/25/16 08:30 18 09/25/16 08:00 97.5 65 16 101/61 97 09/25/16 04:00 97.6 78 16 107/58 99 09/25/16 00:00 98.0 79 17 93/60 98 09/24/16 20:00 98.6 79 17 101/62 96 09/24/16 19:35 93 Nasal Cannula 21 09/24/16 16:56 97.2 76 20 100/60 95 I/O 09/24/16 09/24/16 09/24/16 09/25/16 09/25/16 09/25/16 07:00 15:00 23:00 07:00 15:00 23:00 Intake Total 600 ml 2128 ml 1502 ml 480 ml Output Total 1200 ml Balance -600 ml 2128 ml 1502 ml 480 ml Intake Oral 600 ml 240 ml 240 ml 480 ml IV Total 1888 ml 1262 ml Output Urine Total 1200 ml # Voids 5 2 5 # Bowel Movements 1 Result Diagram: 09/24/16 0416 09/24/16 0416 Objective Remarks awake and alert, NAD anicteric lungs clear port site- no erythema regular rhtyhm abdomen soft, nontender, no CVA tenderness no leg swelling A/P Assessment and Plan This a 30-year-old female patient with sickle cell disease and multiple blood transfusions in the past. Patient reports initially started feeling generally unwell since Sundays came to the emergency department on 09/17/2016 Urine cultures obtained 09/17/2016 positive for Escherichia coli, blood cultures 2 obtained from right upper chest port positive Escherichia coli 2. Per nursing at the time patient refused to have peripheral blood culture drawn. Patient's hemoglobin noted to be 5.5. Patient reports her usual menstrual cycle in heavy and last 3-4 days last menstrual cycle started Friday is ending. Sepsis - E. coli bacteremia Leukocytosis Urine cultures obtained 09/17/2016 positive for Escherichia coli, blood cultures 2 obtained from right upper chest port positive Escherichia coli 2. Repeat blood cultures 2 both from port and peripheral line Vancomycin and Rocephin IV abx pharmacy consulted to dose vancomycin Infectious disease consultation Anemia hemoglobin S/P 2 units RBC H and H up Per infectious disease if blood cultures remain negative for 72 hours we'll consider discharging patient on by mouth antibiotics. If blood cultures persistently positive are positive needs to remove port and sent the tip for culture. encourage patient to up and ambulate, increase activity Zeina Allen MD September 25, 2016 15:24 Zeina Allen MD September 25, 2016 15:24
[2016-09-26] VITALS (8 sets, daily range): BP systolic 93–143; BP diastolic 54–76; PULSE 64–87; RESP 16–18; TEMP 96–97.9; O2SAT 97–100
[2016-09-26] MEDS: SODIUM CHLOR 0.9% 1000 ML INJ 1,000 ML IV SCH ×3 (00:02→19:49)
[2016-09-26] MEDS: HEPARIN SODIUM - SQ 10,000 UNITS/ML VIAL SQ SCH ×2 (01:00→13:00)
[2016-09-26] MEDS: diphenhydrAMINE HCL 50 MG/ML VIAL IV PUSH PRN ×6 (03:58→23:31)
[2016-09-26] MEDS: HYDROmorphone HCL PF 1 MG/ML VIAL IV PRN ×6 (03:59→23:30)
[2016-09-26] MEDS ORDERED: PHARMACY ORDERED LAB ONE (05:45)
[2016-09-26] MEDS: SODIUM CHLORIDE 0.9% FLUSH 10 ML FLUSH IV FLUSH SCH ×2 (09:00→21:00)
[2016-09-26] MEDS ORDERED: SODIUM CHLORID 0.9% 500 ML INJ 500 ML IV ONE (09:00)
[2016-09-26] MEDS: FOLIC ACID 1 MG TAB PO SCH (09:31)
[2016-09-26] MEDS: cefTRIAXone INJ 2,000 MG in SODIUM CHLORIDE 0.9% INJ 100 ML IV SCH (12:53)
[2016-09-26 13:24] LABS: AUTOMATED NEUTROPHIL # 6.5 TH/MM3 (1.8-7.7); BASOPHIL # 0.1 TH/MM3 (0-0.2); BASOPHIL % 0.6 % (0.0-2.0); EOSINOPHIL # 0.2 TH/MM3 (0-0.4); EOSINOPHIL % 2.6 % (0.0-4.0); HEMATOCRIT 29.6 % (35.0-46.0); HEMO FLAGS DIFF FINAL; LYMPHOCYTE # 1.8 TH/MM3 (1.0-4.8); MEAN CORPUSCULAR HEMOGLOBIN 27.5 PG (27.0-34.0); MONO % 9.2 % (0.0-8.0); NEUT % 68.6 % (16.0-70.0); PLATELET COUNT 588 TH/MM3 (150-450); RED BLOOD COUNT 3.44 MIL/MM3 (4.00-5.30); RED CELL DISTRIBUTION WIDTH 19.5 % (11.6-17.2); WHITE BLOOD COUNT 9.5 TH/MM3 (4.0-11.0)
[2016-09-26 13:29] LABS: RETIC % 0.9 % (0.4-3.0); REVIEW FLAG FINAL
[2016-09-26 13:42] LABS: ALT (GPT) 31 U/L (10-53); ANION GAP 7 MEQ/L (5-15); AST (GOT) 26 U/L (15-37); BICARBONATE 26.7 MEQ/L (21.0-32.0); BLOOD UREA NITROGEN 4 MG/DL (7-18); CHLORIDE 107 MEQ/L (98-107); GLOMERULAR FILTRATION RATE 165 ML/MIN (>89); POTASSIUM 3.5 MEQ/L (3.5-5.1); SODIUM (NA) 141 MEQ/L (136-145)
[2016-09-26 13:44] LABS: ALKALINE PHOSPHATASE 161 U/L (45-117); LDH SERUM 290 U/L (84-246); TOTAL BILIRUBIN ADULT 0.7 MG/DL (0.2-1.0)
--- NOTE | 2016-09-26 20:54 | HHI.PR ---
Subjective Remarks Deferred entry - patient seen earlier at 8:50 am Patient hypotensive with sbp in the 90's denies sob c/o pain in chest and back. Objective Vitals Vital Signs Date Time Temp Pulse Resp B/P Pulse Ox O2 Delivery O2 Flow Rate FiO2 09/26/16 16:00 97.3 73 18 102/66 98 09/26/16 12:00 96.8 66 16 102/71 97 09/26/16 11:05 66 102/71 09/26/16 08:42 96.0 64 16 93/54 97 09/26/16 08:00 96.0 64 16 93/54 97 09/26/16 07:37 16 09/26/16 04:00 97.6 87 17 111/65 100 09/26/16 00:00 97.8 76 17 106/66 97 I/O 09/25/16 09/25/16 09/25/16 09/26/16 09/26/16 09/26/16 07:00 15:00 23:00 07:00 15:00 23:00 Intake Total 480 ml 720 ml 600 ml 600 ml 720 ml Balance 480 ml 720 ml 600 ml 600 ml 720 ml Intake Oral 480 ml 720 ml 600 ml 600 ml 720 ml # Voids 5 3 3 3 7 # Bowel Movements 1 1 Result Diagram: 09/26/16 1300 09/26/16 1300 Objective Remarks awake and alert, NAD anicteric lungs clear port site- no erythema regular rhtyhm abdomen soft, nontender, no CVA tenderness no leg swelling Procedures None Medications and IVs Current Medications Medications (Trade) Dose Ordered Sig/Marielle Route Start Time Stop Time Status Last Admin (NS 1000 ml Inj) 1,000 ml @ 100 mls/hr Q10H IV 09/23/16 11:49 09/26/16 00:02 (NS Flush) 2 ml UNSCH PRN IV FLUSH 09/23/16 12:00 (NS Flush) 2 ml BID IV FLUSH 09/23/16 21:00 09/25/16 21:00 (Tylenol) 650 mg Q4H PRN PO 09/23/16 12:00 (Zofran Inj) 4 mg Q6H PRN IVP 09/23/16 12:00 (Dulcolax Supp) 10 mg DAILY PRN RECTAL 09/23/16 12:00 (Heparin Inj) 5,000 units Q12H SQ 09/23/16 13:00 Folic Acid 1 mg 1 mg DAILY PO 09/24/16 09:00 09/26/16 09:31 (Rocephin Inj/NS Inj) 100 ml @ 200 mls/hr Q24H IV 09/23/16 13:00 09/26/16 12:53 (Roxicodone) 10 mg Q4H PRN PO 09/23/16 14:30 09/23/16 15:08 (Roxicodone) 5 mg Q4H PRN PO 09/23/16 14:30 (Narcan Inj) 0.4 mg UNSCH PRN IV 09/23/16 14:30 (Dilaudid Pf Inj) 0.5 mg Q4H PRN IV 09/23/16 15:45 (Dilaudid Pf Inj) 1 mg Q4H PRN IV 09/23/16 15:45 09/26/16 19:12 (Benadryl Inj) 25 mg Q4H PRN IV PUSH 09/23/16 15:45 09/26/16 19:12 A/P Problem List: (1) Sepsis ICD Code: A41.9 Status: Acute Plan: Present on admission. Patient initially with tachycardia and leukocytosis. Urine cultures obtained on 09/17/16 positive for Escherichia coli, blood cultures 2 obtained from right upper chest port positive for Escherichia coli 2. Repeat blood cultures obtained on 09/21/16 and 09/23/16 are so far negative to date. Infectious disease consulted on following. Appreciate recommendations. As per ID recommendations if blood cultures remain negative for 72 hours, patient will be considered for discharge. Continue IV antibiotics as per infectious disease recommendations. The patient currently on IV Rocephin. (2) E coli bacteremia ICD Code: R78.81 Status: Acute Plan: As above (3) UTI (urinary tract infection) ICD Code: N39.0 Status: Acute Plan: As above (4) Anemia, sickle cell with crisis ICD Code: D57.00 Status: Acute Plan: Status post infusion of 2 units of packed red blood cells. Continue IV fluids, oxygen and pain control with oxycodone. Check haptoglobin, LDH and reticulocyte count. (5) Hypotension ICD Code: I95.9 Status: Acute Assessment and Plan DVT prophylaxis: Heparin subcutaneously. Discharge Planning Pending clinical improvement and ID clearance. Problem Qualifiers (1) Sepsis: Qualified Code: A41.51 - Sepsis due to Escherichia coli Gus Zayas MD September 26, 2016 20:54
[2016-09-27] VITALS: BP 111/62; PULSE 72; RESP 17; TEMP 98.1; O2SAT 98
[2016-09-27] MEDS: HEPARIN SODIUM - SQ 10,000 UNITS/ML VIAL SQ SCH ×2 (01:00→11:43)
[2016-09-27] MEDS: HYDROmorphone HCL PF 1 MG/ML VIAL IV PRN ×6 (03:30→23:39)
[2016-09-27] MEDS: diphenhydrAMINE HCL 50 MG/ML VIAL IV PUSH PRN ×6 (03:31→23:39)
[2016-09-27 04:00] VITALS: BP 100/65; PULSE 69; RESP 17; TEMP 96.1; O2SAT 99
[2016-09-27] MEDS: SODIUM CHLOR 0.9% 1000 ML INJ 1,000 ML IV SCH ×2 (05:49→15:49)
[2016-09-27 06:56] LABS: AUTOMATED NEUTROPHIL # 4.2 TH/MM3 (1.8-7.7); BASOPHIL # 0.1 TH/MM3 (0-0.2); BASOPHIL % 0.8 % (0.0-2.0); EOSINOPHIL # 0.3 TH/MM3 (0-0.4); EOSINOPHIL % 3.9 % (0.0-4.0); HEMATOCRIT 28.8 % (35.0-46.0); HEMO FLAGS DIFF FINAL; LYMPH % 34.6 % (9.0-44.0); LYMPHOCYTE # 2.8 TH/MM3 (1.0-4.8); MEAN CELL VOLUME 86.3 FL (80.0-100.0); MEAN CORPUSCULAR HGB CONC 32.5 % (32.0-36.0); MONO % 9.5 % (0.0-8.0); NEUT % 51.2 % (16.0-70.0); PLATELET COUNT 579 TH/MM3 (150-450); RED BLOOD COUNT 3.34 MIL/MM3 (4.00-5.30); RED CELL DISTRIBUTION WIDTH 19.2 % (11.6-17.2); WHITE BLOOD COUNT 8.2 TH/MM3 (4.0-11.0)
[2016-09-27] MEDS ORDERED: LEVA750T PO (06:57)
--- NOTE | 2016-09-27 07:04 | HHI.PR ---
Addendum to Inpatient Note Addendum Reason: Additional Documentation Additional Information Chart reviewed Cultures repeat negative at 72 hours. BP improved. DC Ceftriaxone IV Discharge plan: Start Levaquin oral plan for 12 additional days. Will sign off please call back if any change in clinical condition or questions. covering for me this weekend if need be. Mariel Espinoza MD September 27, 2016 07:04
[2016-09-27] MEDS ORDERED: LEVOFLOXACIN 750 MG TAB PO ONE (07:30)
[2016-09-27 07:32] LABS: ALKALINE PHOSPHATASE 161 U/L (45-117); ALT (GPT) 29 U/L (10-53); ANION GAP 9 MEQ/L (5-15); AST (GOT) 29 U/L (15-37); BICARBONATE 25.4 MEQ/L (21.0-32.0); BLOOD UREA NITROGEN 5 MG/DL (7-18); CHLORIDE 104 MEQ/L (98-107); GLOMERULAR FILTRATION RATE 165 ML/MIN (>89); MAGNESIUM 1.9 MG/DL (1.5-2.5); POTASSIUM 3.7 MEQ/L (3.5-5.1); SODIUM (NA) 138 MEQ/L (136-145); TOTAL BILIRUBIN ADULT 0.6 MG/DL (0.2-1.0)
[2016-09-27 08:45] VITALS: BP 109/73; PULSE 73; RESP 16; TEMP 97.8; O2SAT 96
[2016-09-27] MEDS: SODIUM CHLORIDE 0.9% FLUSH 10 ML FLUSH IV FLUSH SCH ×2 (09:00→21:19)
[2016-09-27] MEDS: FOLIC ACID 1 MG TAB PO SCH (11:33)
[2016-09-27 12:41] VITALS: BP 98/65; PULSE 70; RESP 16; TEMP 97.1; O2SAT 97
[2016-09-27] MEDS ORDERED: ACETAMINOPHEN/HYDROcodone 325 MG/5 MG TAB PO PRN (14:00)
[2016-09-27] MEDS: ACETAMINOPHEN/HYDROcodone 325 MG/5 MG TAB PO PRN ×3 (14:20→23:08)
--- NOTE | 2016-09-27 16:00 | HHI.PR ---
Subjective Remarks Patient complains of pain in the back and all over her body. She rates the pain as 8/10. States that Percocet is not helping. RN states that the patient is only requesting IV Dilaudid and she is requesting frequently. Objective Vitals Vital Signs Date Time Temp Pulse Resp B/P Pulse Ox O2 Delivery O2 Flow Rate FiO2 09/27/16 12:41 97.1 70 16 98/65 97 09/27/16 08:45 97.8 73 16 109/73 96 09/27/16 05:10 16 09/27/16 04:00 96.1 69 17 100/65 99 09/27/16 00:00 98.1 72 17 111/62 98 09/26/16 20:00 97.3 85 17 93/62 98 09/26/16 16:00 97.3 73 18 102/66 98 I/O 09/26/16 09/26/16 09/26/16 09/27/16 09/27/16 09/27/16 07:00 15:00 23:00 07:00 15:00 23:00 Intake Total 600 ml 720 ml 600 ml 1580 ml Balance 600 ml 720 ml 600 ml 1580 ml Intake Oral 600 ml 720 ml 600 ml 960 ml IV Total 620 ml # Voids 3 7 2 4 6 # Bowel Movements 1 1 Result Diagram: 09/27/1652709/27/16527 Objective Remarks awake and alert, NAD anicteric lungs clear port site- no erythema regular rhtyhm abdomen soft, nontender, no CVA tenderness no leg swelling Procedures None Medications and IVs Current Medications Medications (Trade) Dose Ordered Sig/Marielle Route Start Time Stop Time Status Last Admin (NS 1000 ml Inj) 1,000 ml @ 100 mls/hr Q10H IV 09/23/16 11:49 09/26/16 19:49 (NS Flush) 2 ml UNSCH PRN IV FLUSH 09/23/16 12:00 (NS Flush) 2 ml BID IV FLUSH 09/23/16 21:00 09/26/16 21:00 (Tylenol) 650 mg Q4H PRN PO 09/23/16 12:00 (Zofran Inj) 4 mg Q6H PRN IVP 09/23/16 12:00 (Dulcolax Supp) 10 mg DAILY PRN RECTAL 09/23/16 12:00 (Heparin Inj) 5,000 units Q12H SQ 09/23/16 13:00 (Folate) 1 mg DAILY PO 09/24/16 09:00 09/27/16 11:33 (Narcan Inj) 0.4 mg UNSCH PRN IV 09/23/16 14:30 (Dilaudid Pf Inj) 1 mg Q4H PRN IV 09/23/16 15:45 09/27/16 15:16 (Benadryl Inj) 25 mg Q4H PRN IV PUSH 09/23/16 15:45 09/27/16 15:20 (Levaquin) 750 mg Q24H PO 09/28/16 09:00 ([place] 5-325 Mg) 1 tab Q4H PRN PO 09/27/16 14:00 ([place] 5-325 Mg) 2 tab Q4H PRN PO 09/27/16 14:00 09/27/16 14:20 A/P Problem List: (1) Sepsis ICD Code: A41.9 Status: Acute Plan: Present on admission. Patient initially with tachycardia and leukocytosis. Urine cultures obtained on 09/17/16 positive for Escherichia coli, blood cultures 2 obtained from right upper chest port positive for Escherichia coli 2. Repeat blood cultures obtained on 09/21/16 and 09/23/16 are so far negative to date. Infectious disease consulted on following. Appreciate recommendations. As per ID recommendations if blood cultures remain negative for 72 hours, patient will be considered for discharge. Continue IV antibiotics as per infectious disease recommendations. The patient currently on IV Rocephin. 09/27 IV Rocephin discontinued by infectious disease. The patient started on oral Levaquin to be taken for 12 days. (2) E coli bacteremia ICD Code: R78.81 Status: Acute Plan: As above (3) UTI (urinary tract infection) ICD Code: N39.0 Status: Acute Plan: As above (4) Anemia, sickle cell with crisis ICD Code: D57.00 Status: Acute Plan: Status post infusion of 2 units of packed red blood cells. Continue IV fluids, oxygen and pain control with oxycodone. Haptoglobin is low at 8, LDH is trending down from 347 2 290, bilirubin total is 0.6 and hemoglobin continues to be stable at 9.3 which seems to be the patient's baseline. (5) Hypotension ICD Code: I95.9 Status: Acute Plan: Patient's hypotension resolved after IV bolus administration. Continue to monitor vital signs. Assessment and Plan DVT prophylaxis: Heparin subcutaneously. Discharge Planning Pending improvement of pain. We'll discharge either later today or tomorrow in a.m. Problem Qualifiers (1) Sepsis: Qualified Code: A41.51 - Sepsis due to Escherichia coli (2) Hypotension: Qualified Code: I95.9 - Hypotension, unspecified hypotension type Gus Zayas MD September 27, 2016 16:00
[2016-09-27 16:49] VITALS: BP 102/55; PULSE 72; RESP 16; TEMP 97.5; O2SAT 98
[2016-09-27 20:00] VITALS: BP 108/71; PULSE 65; RESP 17; TEMP 97.1; O2SAT 97
[2016-09-28] VITALS: BP 112/73; PULSE 71; RESP 18; TEMP 97; O2SAT 97
[2016-09-28] MEDS: HEPARIN SODIUM - SQ 10,000 UNITS/ML VIAL SQ SCH ×2 (00:16→13:00)
[2016-09-28] MEDS: SODIUM CHLOR 0.9% 1000 ML INJ 1,000 ML IV SCH ×3 (01:49→19:30)
[2016-09-28] MEDS: ACETAMINOPHEN/HYDROcodone 325 MG/5 MG TAB PO PRN ×6 (03:07→22:20)
[2016-09-28] MEDS: HYDROmorphone HCL PF 1 MG/ML VIAL IV PRN ×6 (03:44→23:17)
[2016-09-28] MEDS: diphenhydrAMINE HCL 50 MG/ML VIAL IV PUSH PRN ×6 (03:44→23:17)
[2016-09-28 04:00] VITALS: BP 98/62; PULSE 76; RESP 17; TEMP 97; O2SAT 96
[2016-09-28] MEDS: SODIUM CHLORIDE 0.9% FLUSH 10 ML FLUSH IV FLUSH SCH ×2 (07:33→19:30)
[2016-09-28] MEDS: LEVOFLOXACIN 750 MG TAB PO SCH (07:33)
[2016-09-28] MEDS: FOLIC ACID 1 MG TAB PO SCH (07:33)
[2016-09-28 08:00] VITALS: BP 100/59; PULSE 69; RESP 16; TEMP 97; O2SAT 97
[2016-09-28 12:00] VITALS: BP 93/55; PULSE 68; RESP 18; TEMP 97.6; O2SAT 98
--- NOTE | 2016-09-28 14:14 | HHI.PR ---
Subjective Remarks As per RN report, the patient previously seen in moderate distress due to pain. Patient still complains of back pain and generalized muscle pain. Denies fevers or chills Denies shortness of breath or chest pain. Objective Vitals Vital Signs Date Time Temp Pulse Resp B/P Pulse Ox O2 Delivery O2 Flow Rate FiO2 09/28/16 12:00 97.6 68 18 93/55 98 09/28/16 08:00 97.0 69 16 100/59 97 09/28/16 04:00 97.0 76 17 98/62 96 09/28/16 00:00 97.0 71 18 112/73 97 09/27/16 20:00 97.1 65 17 108/71 97 09/27/16 16:49 97.5 72 16 102/55 98 I/O 09/27/16 09/27/16 09/27/16 09/28/16 09/28/16 09/28/16 06:59 14:59 22:59 06:59 14:59 22:59 Intake Total 1580 ml 1280 ml 480 ml Balance 1580 ml 1280 ml 480 ml Intake Oral 960 ml 480 ml 480 ml IV Total 620 ml 800 ml # Voids 4 6 7 5 # Bowel Movements 1 3 1 Result Diagram: 09/27/1652709/27/16527 Objective Remarks awake and alert, NAD anicteric lungs clear port site- no erythema regular rhtyhm abdomen soft, nontender, no CVA tenderness no leg swelling Procedures None Medications and IVs Current Medications Medications (Trade) Dose Ordered Sig/Marielle Route Start Time Stop Time Status Last Admin (NS 1000 ml Inj) 1,000 ml @ 100 mls/hr Q10H IV 09/23/16 11:49 09/28/16 07:33 (NS Flush) 2 ml UNSCH PRN IV FLUSH 09/23/16 12:00 09/28/16 03:44 (NS Flush) 2 ml BID IV FLUSH 09/23/16 21:00 09/26/16 21:00 (Tylenol) 650 mg Q4H PRN PO 09/23/16 12:00 (Zofran Inj) 4 mg Q6H PRN IVP 09/23/16 12:00 (Dulcolax Supp) 10 mg DAILY PRN RECTAL 09/23/16 12:00 (Heparin Inj) 5,000 units Q12H SQ 09/23/16 13:00 (Folate) 1 mg DAILY PO 09/24/16 09:00 09/28/16 07:33 (Narcan Inj) 0.4 mg UNSCH PRN IV 09/23/16 14:30 (Dilaudid Pf Inj) 1 mg Q4H PRN IV 09/23/16 15:45 09/28/16 11:27 (Benadryl Inj) 25 mg Q4H PRN IV PUSH 09/23/16 15:45 09/28/16 11:28 (Levaquin) 750 mg Q24H PO 09/28/16 09:00 09/28/16 07:33 ([place] 5-325 Mg) 1 tab Q4H PRN PO 09/27/16 14:00 ([place] 5-325 Mg) 2 tab Q4H PRN PO 09/27/16 14:00 09/28/16 14:38 Urinary Catheter: No Vascular Central Line Catheter: No A/P Problem List: (1) Sepsis ICD Code: A41.9 Status: Resolved Plan: Present on admission. Patient initially with tachycardia and leukocytosis. Urine cultures obtained on 09/17/16 positive for Escherichia coli, blood cultures 2 obtained from right upper chest port positive for Escherichia coli 2. Repeat blood cultures obtained on 09/21/16 and 09/23/16 are so far negative to date. Infectious disease consulted on following. Appreciate recommendations. As per ID recommendations if blood cultures remain negative for 72 hours, patient will be considered for discharge. Continue IV antibiotics as per infectious disease recommendations. The patient currently on IV Rocephin. 09/27 IV Rocephin discontinued by infectious disease. The patient started on oral Levaquin to be taken for 12 days. (2) E coli bacteremia ICD Code: R78.81 Status: Acute Plan: As above (3) UTI (urinary tract infection) ICD Code: N39.0 Status: Acute Plan: As above (4) Anemia, sickle cell with crisis ICD Code: D57.00 Status: Acute Plan: Status post infusion of 2 units of packed red blood cells. Continue IV fluids, oxygen and pain control with Lortab and IV Dilaudid. Haptoglobin is low at 8, LDH is trending down from 347 2 290, bilirubin total is 0.6 and hemoglobin continues to be stable at 9.3 which seems to be the patient's baseline. Patient still with significant pain. Will continue to provide treatment as above and plan to DC tomorrow if pain controlled. I will consult hematology Monitor CBC, LDH, haptoglobin and reticulocyte count. (5) Hypotension ICD Code: I95.9 Status: Resolved Plan: Patient's hypotension resolved after IV bolus administration. Continue to monitor vital signs. Assessment and Plan DVT prophylaxis: Heparin subcutaneously. Discharge Planning Pending improvement of pain. We'll discharge either later today or tomorrow in a.m. Problem Qualifiers (1) Sepsis: Qualified Code: A41.51 - Sepsis due to Escherichia coli (2) Hypotension: Qualified Code: I95.9 - Hypotension, unspecified hypotension type Gus Zayas MD September 28, 2016 14:14
[2016-09-28 16:00] VITALS: BP 107/67; PULSE 65; RESP 18; TEMP 96.6; O2SAT 99
[2016-09-28 19:21] LABS: AUTOMATED NEUTROPHIL # 4.1 TH/MM3 (1.8-7.7); BASOPHIL # 0.1 TH/MM3 (0-0.2); BASOPHIL % 1.1 % (0.0-2.0); EOSINOPHIL # 0.3 TH/MM3 (0-0.4); EOSINOPHIL % 3.3 % (0.0-4.0); HEMATOCRIT 30.1 % (35.0-46.0); HEMO FLAGS DIFF FINAL; LYMPH % 32.5 % (9.0-44.0); LYMPHOCYTE # 2.5 TH/MM3 (1.0-4.8); MEAN CORPUSCULAR HEMOGLOBIN 28.3 PG (27.0-34.0); MEAN CORPUSCULAR HGB CONC 32.5 % (32.0-36.0); MONO % 8.7 % (0.0-8.0); NEUT % 54.4 % (16.0-70.0); PLATELET COUNT 606 TH/MM3 (150-450); RED BLOOD COUNT 3.46 MIL/MM3 (4.00-5.30); RED CELL DISTRIBUTION WIDTH 19.1 % (11.6-17.2); WHITE BLOOD COUNT 7.6 TH/MM3 (4.0-11.0)
[2016-09-28 19:40] LABS: ALKALINE PHOSPHATASE 147 U/L (45-117); ALT (GPT) 28 U/L (10-53); ANION GAP 8 MEQ/L (5-15); AST (GOT) 32 U/L (15-37); BICARBONATE 27.7 MEQ/L (21.0-32.0); BLOOD UREA NITROGEN 6 MG/DL (7-18); CHLORIDE 104 MEQ/L (98-107); GLOMERULAR FILTRATION RATE 128 ML/MIN (>89); LDH SERUM 367 U/L (84-246); POTASSIUM 3.9 MEQ/L (3.5-5.1); SODIUM (NA) 140 MEQ/L (136-145); TOTAL BILIRUBIN ADULT 0.8 MG/DL (0.2-1.0)
[2016-09-28 20:00] VITALS: BP 105/63; PULSE 81; RESP 17; TEMP 98; O2SAT 96
[2016-09-29] VITALS: BP 98/64; PULSE 76; RESP 18; TEMP 96.8; O2SAT 96
[2016-09-29] MEDS: HEPARIN SODIUM - SQ 10,000 UNITS/ML VIAL SQ SCH (01:00)
[2016-09-29] MEDS: ACETAMINOPHEN/HYDROcodone 325 MG/5 MG TAB PO PRN ×2 (02:24→06:02)
[2016-09-29] MEDS: diphenhydrAMINE HCL 50 MG/ML VIAL IV PUSH PRN ×5 (03:05→18:22)
[2016-09-29] MEDS: HYDROmorphone HCL PF 1 MG/ML VIAL IV PRN ×5 (03:05→18:22)
[2016-09-29 04:00] VITALS: BP 105/63; PULSE 69; RESP 17; TEMP 97.3; O2SAT 98
[2016-09-29] MEDS: SODIUM CHLOR 0.9% 1000 ML INJ 1,000 ML IV SCH (06:02)
[2016-09-29 07:15] LABS: RETIC % 0.5 % (0.4-3.0); REVIEW FLAG FINAL
[2016-09-29] MEDS: SODIUM CHLORIDE 0.9% FLUSH 10 ML FLUSH IV FLUSH SCH (07:47)
[2016-09-29] MEDS: LEVOFLOXACIN 750 MG TAB PO SCH (07:48)
[2016-09-29] MEDS: FOLIC ACID 1 MG TAB PO SCH (07:48)
[2016-09-29 08:00] VITALS: BP 95/55; PULSE 63; RESP 16; TEMP 96.6; O2SAT 95
[2016-09-29 12:00] VITALS: BP 105/63; PULSE 61; RESP 16; TEMP 97.8; O2SAT 97
[2016-09-29] MEDS ORDERED: HYDR-3535 PO (14:07)
--- NOTE | 2016-09-29 14:08 | HHI.DCPOC ---
Discharge Care Plan Diagnosis: (1) Hypotension (2) Sepsis (3) E coli bacteremia (4) Anemia, sickle cell with crisis (5) UTI (urinary tract infection) Goals to Promote Your Health * To prevent worsening of your condition and complications * To maintain your health at the optimal level Directions to Meet Your Goals Take your medications as prescribed Follow your dietary instruction Follow activity as directed Keep your appointments as scheduled Take your immunizations and boosters as scheduled If your symptoms worsen call your PCP, if no PCP go to Urgent Care Center or Emergency Room Smoking is Dangerous to Your Health. Avoid second hand smoke Call the 24-hour hour crisis hotline for domestic abuse at Gus Zayas MD September 29, 2016 14:08
--- NOTE | 2016-09-29 14:38 | HHI.DS ---
Discharge Summary Admission Date September 23, 2016 at 11:59 Discharge Date: September 29, 2016 Admitting Diagnosis SEPSIS, SICKLE CELL, ANEMIA (1) Sepsis ICD Code: A41.9 Diagnosis: Principal (2) E coli bacteremia ICD Code: R78.81 Diagnosis: Principal (3) UTI (urinary tract infection) ICD Code: N39.0 Diagnosis: Principal (4) Anemia, sickle cell with crisis ICD Code: D57.00 Diagnosis: Principal (5) Hypotension ICD Code: I95.9 Diagnosis: Principal Procedures None Brief History - From Admission This a 30-year-old female patient with sickle cell disease and multiple blood transfusions in the past. Patient presented initially to the hospital reporting started feeling generally unwell on Sundays came to the emergency department on 09/17/2016 and had a temperature of 101.9 with heart rate of 122 blood and urine cultures were obtained and patient was advised to stay in the hospital for admission and further treatment. Patient left the hospital stating that she had arrange care for her son. Patient returned to emergency department because of generalized pain. Bl;ood cultures are positive with E Coli. Patient was started on IV abx ceftriaxone and vancoycin. She refused repeat cultures. She also left AMA today in the morning again on 09/23/16 and return today at noon in the ED for further care. Patient reports pain is, "all over". Patient unable to elaborate further. Patient patient reports this pain is not consistent with her typical sickle cell crises as with her typical sickle cell crises she pain primarily located in her back. Urine cultures obtained 09/17/2016 positive for Escherichia coli, blood cultures 2 obtained from right upper chest port positive Escherichia coli 2. Refused repeat cultures, however she did have blood cultures drawn today in the ED. Patient denies shortness of breath nausea vomiting diarrhea constipation or chills. Patient says she went home because was told somebody broke in her house. Says she has pain and she return to the ED. Says pain is all over her body and it feels like SSA crisis. CBC/BMP: 09/28/16 1840 5/20/17 1840 Significant Findings Laboratory Tests Test 09/27/16 09/28/16 09/29/16 05:28 18:40 06:00 Red Blood Count 3.34 MIL/MM3 3.46 MIL/MM3 (4.00-5.30) (4.00-5.30) Hemoglobin 9.3 GM/DL 9.8 GM/DL (11.6-15.3) (11.6-15.3) Hematocrit 28.8 % 30.1 % (35.0-46.0) (35.0-46.0) Red Cell Distribution Width 19.2 % 19.1 % (11.6-17.2) (11.6-17.2) Platelet Count 579 TH/MM3 606 TH/MM3 (150-450) (150-450) Monocytes (%) (Auto) 9.5 % (0.0-8.0) 8.7 % (0.0-8.0) Blood Urea Nitrogen 5 MG/DL (7-18) 6 MG/DL (7-18) Alkaline Phosphatase 161 U/L 147 U/L (45-117) (45-117) Albumin 2.6 GM/DL 2.9 GM/DL (3.4-5.0) (3.4-5.0) Haptoglobin LESS THAN 10 MG/DL (30-200) Lactate Dehydrogenase 367 U/L (84-246) Absolute Reticulocyte Count 16.7 MIL/L (20.0-150.0) PE at Discharge awake and alert, NAD anicteric lungs clear port site- no erythema regular rhtyhm abdomen soft, nontender, no CVA tenderness no leg swelling Pt update on day of discharge still c/o of generalized pain but controlled. denies cp or sob. Hospital Course 1) Sepsis Present on admission. Patient initially with tachycardia and leukocytosis. Urine cultures obtained on 09/17/16 positive for Escherichia coli, blood cultures 2 obtained from right upper chest port positive for Escherichia coli 2. Repeat blood cultures obtained on 09/21/16 and 09/23/16 are so far negative to date. Infectious disease consulted, patient was treated with IV vancomycin and IV Rocephin which will eventually discontinued and transitioned to oral Levaquin. 09/27 IV Rocephin discontinued by infectious disease. The patient started on oral Levaquin to be taken for 12 days. (2) E coli bacteremia As above (3) UTI (urinary tract infection) As above (4) Anemia, sickle cell with crisis Status post infusion of 2 units of packed red blood cells. Continue IV fluids, oxygen and pain control with Lortab and IV Dilaudid. Haptoglobin is low at 8, LDH is trending down from 347 2 290, bilirubin total is 0.6 and hemoglobin continues to be stable at 9.3 which seems to be the patient's baseline. Patient still with significant pain. Will continue to provide treatment as above and plan to DC tomorrow if pain controlled. During hospital stay CBC, LDH, haptoglobin and reticulocyte count were monitored. (5) Hypotension Patient's hypotension resolved after IV bolus administration. Vital signs monitored throughout hospital stay DVT prophylaxis: Heparin subcutaneously. Pt Condition on Discharge: Stable Discharge Disposition: Discharge Home Discharge Time: <= 30 minutes Discharge Instructions Follow up Referrals: Oncology - 1 Week PCP Follow-up - 1 Week New Medications: Hydrocodone-Acetaminophen (Lortab) 10-325 Mg Tab 1 TAB PO Q4H PRN PAIN #30 Ref 0 TAB Levofloxacin (Levaquin) 750 Mg Tab 750 MG PO DAILY E.coli bacteremia Days 12 Ref 0 TAB Continued Medications: Folic Acid (Folate) 1 Mg Tab 1 MG PO DAILY Supplement #30 Ref 0 TAB Discontinued Medications: Hydrocodone-Acetaminophen (Lortab) 10-325 Mg Tab 1 TAB PO Q6H PRN PAIN Ref 0 TAB Gus Zayas MD September 29, 2016 14:38
[2016-09-29 16:00] VITALS: BP 106/57; PULSE 63; RESP 16; TEMP 97.9; O2SAT 97
== END 2016-09-29 18:33 | disposition home or self-care (01) | DRG 871 ==
LOC: NEPC 10:21 → NEDA 11:59 → HOCB 14:46
PROVIDERS: ADMIT Hospitalist; ATTEND Hospitalist
DX: A41.51 Sepsis due to Escherichia coli [E. coli] (principal); D57.00 Hb-SS disease with crisis, unspecified; I95.9 Hypotension, unspecified; N39.0 Urinary tract infection, site not specified; E87.6 Hypokalemia; G47.00 Insomnia, unspecified; Z88.5 Allergy status to narcotic agent; Z86.14 Personal history of Methicillin resistant Staphylococcus aureus infection; Z80.3 Family history of malignant neoplasm of breast
CPT/HCPCS: 80053; 80202; 80307; 83010; 83615; 83735; 84100; 85025; 85044; 87040; 96374; 96375; J0696; J1170; J1200; J1644; J2405; J3370; J7030; J7040; J7050

== ENCOUNTER 2016-10-09 02:12 | Emergency (ER) | payer OTHER ==
[~2016-10-09 02:12] MED LIST changes: +HYDR-3535 PO; +LEVA750T PO
[2016-10-09 02:15] VITALS: BP 113/78; PULSE 98; RESP 16; TEMP 99.3; O2SAT 95
[2016-10-09] MEDS ORDERED: SODIUM CHLOR 0.9% 1000 ML INJ 1,000 ML IV ONE (02:49)
--- NOTE | 2016-10-09 02:54 | PD ---
HPI Chief Complaint: Sickle Cell Time Seen by Provider: 02:33 Travel History International Travel<30 days: No Contact w/Intl Traveler<30days: No Traveled to known affect area: No History of Present Illness HPI The patient is a 30-year-old L[place] female who presents emergency department for chest pain and back pain related to her sickle cell. The patient has a history of sickle cell SS, states she recently started her menstrual cycle, which triggered her sickle cell crisis. The patient was at work earlier [employer] in [place], [place], when she was traveling home and developed pain. The patient denies any change in her pain pattern, denies any shortness of breath, nausea, vomiting, or fever. The patient was recently hospitalized earlier this month for sepsis with a prolonged hospital course. She denies any current fever, dysuria, or cough. Symptoms are moderate , exacerbated by history of sickle cell disease, and there are no current alleviating factors. PFSH Past Medical History Hx Anticoagulant Therapy: No Anemia: Yes Arthritis: No Asthma: No Autoimmune Disease: No Blood Disorders: No Anxiety: No Depression: No Cancer: No Cardiovascular Problems: No Chemotherapy: No Chest Pain: Yes Congestive Heart Failure: No COPD: No Cerebrovascular Accident: No Diabetes: No Diminished Hearing: No Endocrine: No Gastrointestinal Disorders: Yes (GALLSTONES) GERD: No Genitourinary: Yes Headaches: Yes Hiatal Hernia: No Immune Disorder: No Implanted Vascular Access Dvce: Yes (RIGHT CHEST ) Insomnia: Yes Kidney Stones: Yes Musculoskeletal: No Neurologic: No Psychiatric: No Reproductive: No Respiratory: No Immunizations Current: Yes Migraines: No Pneumonia: Yes Radiation Therapy: No Renal Failure: No Seizures: No Sickle Cell Disease: Yes Thyroid Disease: No Ulcer: No PNEUMOCCOCAL Vaccine (Year): 2 ?: Not : 2 Para: 1 Miscarriage: 1 : 0 Tubal Ligation: Yes Past Surgical History Abdominal Surgery: Yes (hector) AICD: No Arteriovenous Shunt: No Body Medical Devices: MEDPORT Cardiac Surgery: No Section: Yes Cholecystectomy: Yes Ear Surgery: No Endocrine Surgery: No Eye Surgery: No Genitourinary Surgery: No Gynecologic Surgery: Yes (tubal ligation) Hysterectomy: No Insulin Pump: No Joint Replacement: No Oral Surgery: Yes Pacemaker: No Thoracic Surgery: Yes (CHEST PORT ) Tonsillectomy: Yes Other Surgery: Yes (RIGHT CHEST INFUSAPORT ) Social History Alcohol Use: No Tobacco Use: No Substance Use: No Allergies-Medications (Allergen,Severity, Reaction): Coded Allergies: Morphine (Verified Allergy, Severe, RASH, 10/09/16) *MDRO Multi-Drug Resistant Organism (Verified Adverse Reaction, Unknown, MRSA, 10/09/16) MRSA (blood) - 12/18/2004 MRSA PCR screen NEGATIVE 08/27/16 & 09/21/16 Cleared per Infection Control Reported Meds & Prescriptions Reported Meds & Active Scripts Active Lortab (Hydrocodone-Acetaminophen) 10-325 Mg Tab 1 Tab PO Q4H PRN Levaquin (Levofloxacin) 750 Mg Tab 750 Mg PO DAILY 12 Days Folate (Folic Acid) 1 Mg Tab 1 Mg PO DAILY Review of Systems Except as stated in HPI: all other systems reviewed are Neg General / Constitutional: No: Fever Cardiovascular: Positive: Chest Pain or Discomfort Respiratory: No: Shortness of Breath Gastrointestinal: No: Nausea, Vomiting, Abdominal Pain Musculoskeletal: Positive: Myalgias, Arthralgias Physical Exam Narrative GENERAL: Awake, alert, pleasant 30-year-old female who appears her stated age and is in no acute respiratory distress. SKIN: Focused skin assessment warm/dry. HEAD: Atraumatic. Normocephalic. EYES: Pupils equal and round. Mild icterus. ENT: No nasal bleeding or discharge. Mucous membranes pink and moist. NECK: Trachea midline. No JVD. CARDIOVASCULAR: Regular, tachycardic with a heart rate of 105. Port in place right chest wall. RESPIRATORY: No accessory muscle use. Clear to auscultation. Breath sounds equal bilaterally. GASTROINTESTINAL: Abdomen soft, non-tender, nondistended. MUSCULOSKELETAL: No obvious deformities. No clubbing. No cyanosis. No edema. NEUROLOGICAL: Awake and alert. No obvious cranial nerve deficits. Motor grossly within normal limits. Normal speech. PSYCHIATRIC: Appropriate mood and affect; insight and judgment normal. Data Data Last Documented VS Vital Signs Date Time Temp Pulse Resp B/P Pulse Ox O2 Delivery O2 Flow Rate FiO2 10/09/16 03:35 100 20 106/64 97 10/09/16 02:15 99.3 Room Air Orders Complete Blood Count With Diff (10/09/16 02:49) Retic Count (10/09/16 02:49) Ecg Monitoring (10/09/16 02:49) Iv Access Insert/Monitor (10/09/16 02:49) Oximetry (10/09/16 02:49) Hydromorphone Pf Inj (Dilaudid Pf Inj) (10/09/16 03:00) Ondansetron Inj (Zofran Inj) (10/09/16 03:00) Sodium Chloride 0.9% Flush (Ns Flush) (10/09/16 03:00) Sodium Chlor 0.9% 1000 Ml Inj (Ns 1000 M (10/09/16 02:49) Diphenhydramine Inj (Benadryl Inj) (10/09/16 03:00) Hydromorphone Pf Inj (Dilaudid Pf Inj) (10/09/16 04:00) Diphenhydramine Inj (Benadryl Inj) (10/09/16 04:00) Labs Laboratory Tests Test 10/09/16 03:10 White Blood Count 13.1 TH/MM3 Red Blood Count 2.82 MIL/MM3 Hemoglobin 8.1 GM/DL Hematocrit 24.2 % Mean Corpuscular Volume 85.9 FL Mean Corpuscular Hemoglobin 28.8 PG Mean Corpuscular Hemoglobin 33.5 % Concent Red Cell Distribution Width 19.5 % Platelet Count 482 TH/MM3 Mean Platelet Volume 8.3 FL Neutrophils (%) (Auto) 48.8 % Lymphocytes (%) (Auto) 39.4 % Monocytes (%) (Auto) 7.8 % Eosinophils (%) (Auto) 2.6 % Basophils (%) (Auto) 1.4 % Neutrophils # (Auto) 6.4 TH/MM3 Lymphocytes # (Auto) 5.2 TH/MM3 Monocytes # (Auto) 1.0 TH/MM3 Eosinophils # (Auto) 0.3 TH/MM3 Basophils # (Auto) 0.2 TH/MM3 CBC Comment AUTO DIFF Differential Total Cells 100 Counted Neutrophils % (Manual) 52 % Lymphocytes % 36 % Monocytes % 8 % Eosinophils % 4 % Neutrophils # (Manual) 6.8 TH/MM3 Nucleated Red Blood Cells 1 /100 WBC Differential Comment FINAL DIFF MANUAL Platelet Estimate HIGH Platelet Morphology Comment NORMAL Target Cells 1+ Ovalocytes 1+ [place] Bodies PRESENT Keratocytes 1+ Reticulocyte Count 7.1 % Absolute Reticulocyte Count 199.6 MIL/L [facility] Medical Decision Making Medical Screen Exam Complete: Yes Emergency Medical Condition: Yes Medical Record Reviewed: Yes Interpretation(s) Laboratory Tests Test 10/09/16 03:10 White Blood Count 13.1 TH/MM3 Red Blood Count 2.82 MIL/MM3 Hemoglobin 8.1 GM/DL Hematocrit 24.2 % Mean Corpuscular Volume 85.9 FL Mean Corpuscular Hemoglobin 28.8 PG Mean Corpuscular Hemoglobin 33.5 % Concent Red Cell Distribution Width 19.5 % Platelet Count 482 TH/MM3 Mean Platelet Volume 8.3 FL Neutrophils (%) (Auto) 48.8 % Lymphocytes (%) (Auto) 39.4 % Monocytes (%) (Auto) 7.8 % Eosinophils (%) (Auto) 2.6 % Basophils (%) (Auto) 1.4 % Neutrophils # (Auto) 6.4 TH/MM3 Lymphocytes # (Auto) 5.2 TH/MM3 Monocytes # (Auto) 1.0 TH/MM3 Eosinophils # (Auto) 0.3 TH/MM3 Basophils # (Auto) 0.2 TH/MM3 CBC Comment AUTO DIFF Differential Total Cells 100 Counted Neutrophils % (Manual) 52 % Lymphocytes % 36 % Monocytes % 8 % Eosinophils % 4 % Neutrophils # (Manual) 6.8 TH/MM3 Nucleated Red Blood Cells 1 /100 WBC Differential Comment FINAL DIFF MANUAL Platelet Estimate HIGH Platelet Morphology Comment NORMAL Target Cells 1+ Ovalocytes 1+ [place]ck Bodies PRESENT Keratocytes 1+ Reticulocyte Count 7.1 % Absolute Reticulocyte Count 199.6 MIL/L Differential Diagnosis Differential diagnosis includes vaso-occlusive crisis, aplastic anemia, hemolytic anemia, drug-seeking behavior, malingering, dehydration, sepsis. Narrative Course The patient's port was accessed. Labs were drawn and sent and the patient was placed on cardiac telemetry monitoring and continuous pulse oximetry monitoring. The patient was provided Dilaudid, Zofran, Benadryl, and IV fluids. The patient was reevaluated, continued to have pain, therefore, was redosed with pain medications. Hemoglobin is stable at 8.1, retake count is appropriate. No evidence of aplastic crisis. The patient was reevaluated at 4: 25 AM, her symptoms have improved. The patient will be discharged home is advised to follow-up with her brush stainer. Return if symptoms worsen or progress. Diagnosis Primary Impression: Sickle cell crisis Patient Instructions: General Instructions Additional Instructions: Follow-up with your primary physician and/or brush stainer. Return if symptoms worsen or progress. Disposition: 01 DISCHARGE HOME Condition: Stable Markus Villarreal MD October 09, 2016 02:54
[2016-10-09] MEDS ORDERED: HYDROmorphone HCL PF 2 MG/ML VIAL IVS ONE (03:00)
[2016-10-09] MEDS ORDERED: SODIUM CHLORIDE 0.9% FLUSH 10 ML FLUSH IVF PRN (03:00)
[2016-10-09] MEDS ORDERED: diphenhydrAMINE HCL 50 MG/ML VIAL IV ONE (03:00)
[2016-10-09] MEDS ORDERED: ONDANSETRON HCL 4 MG/2 ML VIAL IVP ONE (03:00)
[2016-10-09 03:35] VITALS: BP 106/64; PULSE 100; RESP 20; O2SAT 97
[2016-10-09 03:36] LABS: AUTOMATED NEUTROPHIL # 6.4 TH/MM3 (1.8-7.7); BASOPHIL # 0.2 TH/MM3 (0-0.2); BASOPHIL % 1.4 % (0.0-2.0); EOSINOPHIL # 0.3 TH/MM3 (0-0.4); EOSINOPHIL % 2.6 % (0.0-4.0); HEMATOCRIT 24.2 % (35.0-46.0); LYMPH % 39.4 % (9.0-44.0); LYMPHOCYTE # 5.2 TH/MM3 (1.0-4.8); MEAN CELL VOLUME 85.9 FL (80.0-100.0); MEAN CORPUSCULAR HEMOGLOBIN 28.8 PG (27.0-34.0); MEAN CORPUSCULAR HGB CONC 33.5 % (32.0-36.0); MONO % 7.8 % (0.0-8.0); NEUT % 48.8 % (16.0-70.0); PLATELET COUNT 482 TH/MM3 (150-450); RED BLOOD COUNT 2.82 MIL/MM3 (4.00-5.30); RED CELL DISTRIBUTION WIDTH 19.5 % (11.6-17.2); RETIC % 7.1 % (0.4-3.0); WHITE BLOOD COUNT 13.1 TH/MM3 (4.0-11.0)
[2016-10-09 03:43] LABS: HEMO FLAGS AUTO DIFF; REVIEW FLAG AUTO DIFF
[2016-10-09] MEDS ORDERED: HYDROmorphone HCL PF 2 MG/ML VIAL IV PUSH ONE (04:00)
[2016-10-09] MEDS ORDERED: diphenhydrAMINE HCL 50 MG/ML VIAL IV PUSH ONE (04:00)
[2016-10-09 04:15] LABS: CORRECTED NUCLEATED RBC 1 /100 WBC (0-0); EOSINOPHILS 4 % (0-4); NEUTROPHIL # MANUAL DIFF 6.8 TH/MM3 (1.8-7.7); POLYS (SEG NEUTROPHILS) 52 % (16-70); WBC DIFF SAMPLE 100
[2016-10-09 04:16] LABS: OVALOCYTES 1+ (NORMAL); TARGET CELLS 1+ (NORMAL)
[2016-10-09 04:17] LABS: HOWELL-JOLLY BODIES PRESENT (NONE SEEN); KERATOCYTES 1+ (NORMAL); PLATELET ESTIMATE SMEAR HIGH (NORMAL); PLATELET MORPHOLOGY NORMAL (NORMAL); SCAN/DIFF FINAL DIFF MANUAL
[2016-10-09 05:18] VITALS: BP 120/68
== END 2016-10-09 05:20 | disposition home or self-care (01) ==
LOC: NEPC 02:12
DX: D57.00 Hb-SS disease with crisis, unspecified (principal)
CPT/HCPCS: 85007; 85027; 85044; 96361; 96374; 96375; 96376; 99284; J1170; J1200; J1642; J2405; J7030

== ENCOUNTER 2016-10-10 02:06 | Emergency (ER) | payer OTHER ==
[~2016-10-10] VITALS: Ht 152.4 cm; Wt 57.0 kg
[2016-10-10 02:08] VITALS: BP 121/74; PULSE 93; RESP 16; TEMP 100; O2SAT 93
[2016-10-10] MEDS ORDERED: SODIUM CHLOR 0.9% 1000 ML INJ 1,000 ML IV ONE (03:18)
[2016-10-10] MEDS ORDERED: HYDROmorphone HCL PF 1 MG/ML VIAL IV PUSH ONE ×2 (03:30→05:00)
[2016-10-10] MEDS ORDERED: ONDANSETRON HCL 4 MG/2 ML VIAL IVP ONE (03:30)
[2016-10-10] MEDS ORDERED: diphenhydrAMINE HCL 50 MG/ML VIAL IV PUSH ONE (03:30)
[2016-10-10 03:35] VITALS: RESP 18; O2SAT 98
[2016-10-10] MEDS: SODIUM CHLORIDE 0.9% FLUSH 10 ML FLUSH IVF PRN ×2 (04:07→05:18)
[2016-10-10 04:15] LABS: AUTOMATED NEUTROPHIL # 5.2 TH/MM3 (1.8-7.7); BASOPHIL # 0.1 TH/MM3 (0-0.2); BASOPHIL % 0.7 % (0.0-2.0); EOSINOPHIL # 0.4 TH/MM3 (0-0.4); EOSINOPHIL % 3.3 % (0.0-4.0); HEMATOCRIT 23.4 % (35.0-46.0); LYMPH % 44.7 % (9.0-44.0); LYMPHOCYTE # 5.3 TH/MM3 (1.0-4.8); MEAN CELL VOLUME 85.5 FL (80.0-100.0); MEAN CORPUSCULAR HEMOGLOBIN 29.4 PG (27.0-34.0); MEAN CORPUSCULAR HGB CONC 34.4 % (32.0-36.0); NEUT % 43.3 % (16.0-70.0); PLATELET COUNT 447 TH/MM3 (150-450); RED BLOOD COUNT 2.74 MIL/MM3 (4.00-5.30); RED CELL DISTRIBUTION WIDTH 18.8 % (11.6-17.2); RETIC % 6.5 % (0.4-3.0)
[2016-10-10 04:17] LABS: HEMO FLAGS AUTO DIFF; REVIEW FLAG AUTO DIFF
[2016-10-10 04:39] LABS: BICARBONATE 29.5 MEQ/L (21.0-32.0); POTASSIUM 3.7 MEQ/L (3.5-5.1)
[2016-10-10 04:45] LABS: BANDS 2 % (0-6); EOSINOPHILS 5 % (0-4); METAMYELOCYTES 1 % (0-1); NEUTROPHIL # MANUAL DIFF 6.1 TH/MM3 (1.8-7.7); PLATELET ESTIMATE SMEAR NORMAL (NORMAL); PLATELET MORPHOLOGY NORMAL (NORMAL); POLYS (SEG NEUTROPHILS) 48 % (16-70); SCAN/DIFF FINAL DIFF MANUAL; WBC DIFF SAMPLE 100
[2016-10-10 04:48] LABS: ACANTHOCYTES OCC (NORMAL); HOWELL-JOLLY BODIES PRESENT (NONE SEEN)
--- NOTE | 2016-10-10 04:51 | PD ---
HPI Chief Complaint: Sickle Cell Time Seen by Provider: 03:18 Travel History International Travel<30 days: No Contact w/Intl Traveler<30days: No Traveled to known affect area: No History of Present Illness HPI 30 year-old female with sickle cell anemia presents to the emergency department stating that she is in crisis. Patient states she typically has crisis type symptoms when she starts her period. Patient was seen yesterday in the emergency department for same complaint. Patient denies fever chills nausea vomiting or any respiratory illness symptoms or other infectious complaints. Patient states that her medications at home and not working for her. Her general maintenance engineer Dr. Rivas is out of town. Patient states that she would like to have a dose of medication to help control her pain so that she can go home and continue her home regimen. Patient denies other concerns or complaints. PFSH Past Medical History Narrative Medical Sickle cell anemia nephrolithiasis cholecystectomy [id number]; nursing notes reviewed Hx Anticoagulant Therapy: No Anemia: Yes Arthritis: No Asthma: No Autoimmune Disease: No Blood Disorders: No Anxiety: No Depression: No Cancer: No Cardiovascular Problems: No Chemotherapy: No Chest Pain: Yes Congestive Heart Failure: No COPD: No Cerebrovascular Accident: No Diabetes: No Diminished Hearing: No Endocrine: No Gastrointestinal Disorders: Yes (GALLSTONES) GERD: No Genitourinary: Yes Headaches: Yes Hiatal Hernia: No Immune Disorder: No Implanted Vascular Access Dvce: Yes (RIGHT CHEST ) Insomnia: Yes Kidney Stones: Yes Musculoskeletal: No Neurologic: No Psychiatric: No Reproductive: No Respiratory: No Immunizations Current: Yes Migraines: No Pneumonia: Yes Radiation Therapy: No Renal Failure: No Seizures: No Sickle Cell Disease: Yes Thyroid Disease: No Ulcer: No Tetanus Vaccination: < 5 Years Influenza Vaccination: Yes PNEUMOCCOCAL Vaccine (Year): 2 ?: Not LMP: NOW : 2 Para: 1 Miscarriage: 1 : 0 Tubal Ligation: Yes Past Surgical History Abdominal Surgery: Yes (hector) AICD: No Arteriovenous Shunt: No Body Medical Devices: MEDPORT Cardiac Surgery: No Section: Yes Cholecystectomy: Yes Ear Surgery: No Endocrine Surgery: No Eye Surgery: No Genitourinary Surgery: No Gynecologic Surgery: Yes (tubal ligation) Hysterectomy: No Insulin Pump: No Joint Replacement: No Oral Surgery: Yes Pacemaker: No Thoracic Surgery: Yes (CHEST PORT ) Tonsillectomy: Yes Other Surgery: Yes (RIGHT CHEST INFUSAPORT ) Social History Alcohol Use: No Tobacco Use: No Substance Use: No Allergies-Medications (Allergen,Severity, Reaction): Coded Allergies: Morphine (Verified Allergy, Severe, RASH, 10/10/16) *MDRO Multi-Drug Resistant Organism (Verified Adverse Reaction, Unknown, MRSA, 10/10/16) MRSA (blood) - 12/18/2004 MRSA PCR screen NEGATIVE 08/27/16 & 09/21/16 Cleared per Infection Control Reported Meds & Prescriptions Reported Meds & Active Scripts Active Lortab (Hydrocodone-Acetaminophen) 10-325 Mg Tab 1 Tab PO Q4H PRN Review of Systems Except as stated in HPI: all other systems reviewed are Neg Physical Exam Narrative GENERAL: Well-developed thin female in apparent mild discomfort with no respiratory distress SKIN: Warm and dry. HEAD: Normocephalic. EYES: No scleral icterus. No injection or drainage. NECK: Supple, trachea midline. No JVD or lymphadenopathy. CARDIOVASCULAR: Regular rate and rhythm without murmurs, gallops, or rubs. RESPIRATORY: Breath sounds equal bilaterally. No accessory muscle use. GASTROINTESTINAL: Abdomen soft, non-tender, nondistended. MUSCULOSKELETAL: No cyanosis, or edema. BACK: Nontender without obvious deformity. No CVA tenderness. Data Data Last Documented VS Vital Signs Date Time Temp Pulse Resp B/P Pulse Ox O2 Delivery O2 Flow Rate FiO2 10/10/16 03:35 18 98 Room Air 10/10/16 02:08 100.0 93 121/74 Orders Basic Metabolic Panel (Bmp) (10/10/16 03:18) Complete Blood Count With Diff (10/10/16 03:18) Retic Count (10/10/16 03:18) Ecg Monitoring (10/10/16 03:18) Iv Access Insert/Monitor (10/10/16 03:18) Oximetry (10/10/16 03:18) Ondansetron Inj (Zofran Inj) (10/10/16 03:30) Sodium Chloride 0.9% Flush (Ns Flush) (10/10/16 03:30) Sodium Chlor 0.9% 1000 Ml Inj (Ns 1000 M (10/10/16 03:18) Hydromorphone Pf Inj (Dilaudid Pf Inj) (10/10/16 03:30) Diphenhydramine Inj (Benadryl Inj) (10/10/16 03:30) Sodium Chlorid 0.9% 500 Ml Inj (Ns 500 M (10/10/16 05:00) Hydromorphone Pf Inj (Dilaudid Pf Inj) (10/10/16 05:00) Diphenhydramine Inj (Benadryl Inj) (10/10/16 05:00) Heparin Central Flush (Heparin Central F (10/10/16 05:00) Labs Laboratory Tests Test 10/10/16 03:00 White Blood Count 12.0 TH/MM3 Red Blood Count 2.74 MIL/MM3 Hemoglobin 8.0 GM/DL Hematocrit 23.4 % Mean Corpuscular Volume 85.5 FL Mean Corpuscular Hemoglobin 29.4 PG Mean Corpuscular Hemoglobin 34.4 % Concent Red Cell Distribution Width 18.8 % Platelet Count 447 TH/MM3 Mean Platelet Volume 8.4 FL Neutrophils (%) (Auto) 43.3 % Lymphocytes (%) (Auto) 44.7 % Monocytes (%) (Auto) 8.0 % Eosinophils (%) (Auto) 3.3 % Basophils (%) (Auto) 0.7 % Neutrophils # (Auto) 5.2 TH/MM3 Lymphocytes # (Auto) 5.3 TH/MM3 Monocytes # (Auto) 1.0 TH/MM3 Eosinophils # (Auto) 0.4 TH/MM3 Basophils # (Auto) 0.1 TH/MM3 CBC Comment AUTO DIFF Differential Total Cells 100 Counted Neutrophils % (Manual) 48 % Band Neutrophils % 2 % Lymphocytes % 36 % Monocytes % 8 % Eosinophils % 5 % Neutrophils # (Manual) 6.1 TH/MM3 Metamyelocytes 1 % Differential Comment FINAL DIFF MANUAL Atypical Lymphocytes % Platelet Estimate NORMAL Platelet Morphology Comment NORMAL [place] Bodies PRESENT Acanthocytes OCC Reticulocyte Count 6.5 % Absolute Reticulocyte Count 176.7 MIL/L Sodium Level 140 MEQ/L Potassium Level 3.7 MEQ/L Chloride Level 104 MEQ/L Carbon Dioxide Level 29.5 MEQ/L Anion Gap 7 MEQ/L Blood Urea Nitrogen 5 MG/DL Creatinine 0.53 MG/DL Estimat Glomerular Filtration 162 ML/MIN Rate Random Glucose 86 MG/DL Calcium Level 8.8 MG/DL MDM Medical Decision Making Medical Screen Exam Complete: Yes Emergency Medical Condition: Yes Medical Record Reviewed: Yes Interpretation(s) Absolutely retake 176.7; take count 6.5( these values are improved from 10/09/16) Vital Signs Date Time Temp Pulse Resp B/P Pulse Ox O2 Delivery O2 Flow Rate FiO2 10/10/16 03:35 18 98 Room Air 10/10/16 02:13 16 10/10/16 02:08 100.0 93 16 121/74 93 Room Air CBC & BMP Diagram 10/10/16 03:00 Vital Signs Date Time Temp Pulse Resp B/P Pulse Ox O2 Delivery O2 Flow Rate FiO2 10/10/16 03:35 18 98 Room Air 10/10/16 02:13 16 10/10/16 02:08 100.0 93 16 121/74 93 Room Air Differential Diagnosis Sickle-cell crisis, vaso-occlusive crisis, anemia, dehydration, electronic disturbance Narrative Course Patient's port accessed and patient administered 1 L normal saline along with Dilaudid 1 mg IV and Benadryl 25 mg IV and Zofran 4 mg IV Lab values collected and shows evidence of improvement of results compared to day before Patient requested one additional dose of pain medicine prior to being discharged given 500 cc normal saline Dilaudid 1 mg and Benadryl 25 mg Patient stable for outpatient management and follow-up with your managing physician. Diagnosis Primary Impression: Anemia, sickle cell with crisis Referrals: Primary Care Physician call for appointment Follow-up with your general maintenance engineer call office name to schedule follow-up appointment Patient Instructions: General Instructions Additional Instructions: Increase fluid hydration Take as needed acetaminophen/Tylenol for fever 100.4F or greater monitor temperature every 4 hours with thermometer Continue chronic medications as chronically prescribed Follow-up with your primary care provider/general maintenance engineer call office in a.m. to schedule follow-up appointment Return to the emergency department for any concerns or change in condition Med/Other Pt SpecificInfo: No Change to Meds Disposition: 01 DISCHARGE HOME Condition: Stable Halina Jiang MD Oct 10, 2016 04:51
[2016-10-10] MEDS ORDERED: SODIUM CHLORID 0.9% 500 ML INJ 500 ML IV ONE (05:00)
[2016-10-10] MEDS ORDERED: diphenhydrAMINE HCL 50 MG/ML VIAL IM ONE (05:00)
== END 2016-10-10 05:53 | disposition home or self-care (01) ==
LOC: NEPC 02:06
DX: D57.819 Other sickle-cell disorders with crisis, unspecified (principal); Z87.442 Personal history of urinary calculi
CPT/HCPCS: 80048; 85007; 85027; 85044; 96361; 96372; 96374; 96375; 96376; 99284; J1170; J1200; J1642; J2405; J7030; J7040

== ENCOUNTER 2016-10-13 02:17 | Emergency (ER) | payer OTHER ==
[~2016-10-13] VITALS: Ht 152.4 cm; Wt 58.0 kg
[~2016-10-13 02:17] MED LIST changes: -FOLI1TAB4 PO; -LEVA750T PO
[2016-10-13 02:18] VITALS: BP 120/63; PULSE 94; RESP 16; TEMP 98.7; O2SAT 95
[2016-10-13] MEDS ORDERED: SODIUM CHLOR 0.9% 1000 ML INJ 1,000 ML IV ONE (04:42)
[2016-10-13] MEDS ORDERED: SODIUM CHLORIDE 0.9% FLUSH 10 ML FLUSH IVF PRN (04:45)
[2016-10-13] MEDS ORDERED: KETOROLAC TROMETHAMINE 30 MG/ML (IVP) VIAL IVP ONE (04:45)
--- NOTE | 2016-10-13 05:01 | RADRPT ---
EXAM DATE/TIME: 10/13/2016 04:55 [facility] COMPARISON: CHEST SINGLE AP, September 20, 2016, 3:39. INDICATIONS : Chest pain. MEDICAL HISTORY : Hypertension. Sickle Cell disease. SURGICAL HISTORY : Infusaport. ENCOUNTER: Initial ACUITY: 1 day PAIN SCORE: 5/10 LOCATION: Bilateral chest FINDINGS: The lungs are clear without infiltrate, nodule, or mass. There is no appreciable pleural effusion fo r technique. Heart and mediastinum are unremarkable. Right subclavian [id number] is present with tip overlapping the expected region of the SVC. CONCLUSION: No acute cardiopulmonary disease. Khadar Delgado MD on October 13, 2016 at 5:00 Board Certified Radiologist. This report was verified electronically.
--- NOTE | 2016-10-13 05:10 | PD ---
HPI . Sickle cell crisis Chief Complaint: Sickle Cell Time Seen by Provider: 04:34 Travel History International Travel<30 days: No Contact w/Intl Traveler<30days: No Traveled to known affect area: No History of Present Illness HPI Patient presents complaining with sickle cell crisis. She is complaining with diffuse body pain and chest pain. She complains of pain that she rates as 8/ 10. No exacerbating factors. Pain is been unrelieved by Lortab. She denies any cough or shortness of breath. She has not been running a fever. She denies any vomiting or diarrhea. She denies any urinary tract symptoms. PFSH Past Medical History Hx Anticoagulant Therapy: No Anemia: Yes Arthritis: No Asthma: No Autoimmune Disease: No Blood Disorders: No Anxiety: No Depression: No Cancer: No Cardiovascular Problems: No Chemotherapy: No Chest Pain: Yes Congestive Heart Failure: No COPD: No Cerebrovascular Accident: No Diabetes: No Diminished Hearing: No Endocrine: No Gastrointestinal Disorders: Yes (GALLSTONES) GERD: No Genitourinary: Yes Headaches: Yes Hiatal Hernia: No Immune Disorder: No Implanted Vascular Access Dvce: Yes (RIGHT CHEST ) Insomnia: Yes Kidney Stones: Yes Musculoskeletal: No Neurologic: No Psychiatric: No Reproductive: No Respiratory: No Immunizations Current: Yes Migraines: No Pneumonia: Yes Radiation Therapy: No Renal Failure: No Seizures: No Sickle Cell Disease: Yes Thyroid Disease: No Ulcer: No Tetanus Vaccination: < 5 Years Influenza Vaccination: Yes PNEUMOCCOCAL Vaccine (Year): 2 ?: Not LMP: 10/13/16 : 2 Para: 1 Miscarriage: 1 : 0 Tubal Ligation: Yes Past Surgical History Abdominal Surgery: Yes (hector) AICD: No Arteriovenous Shunt: No Body Medical Devices: MEDPORT Cardiac Surgery: No Section: Yes Cholecystectomy: Yes Ear Surgery: No Endocrine Surgery: No Eye Surgery: No Genitourinary Surgery: No Gynecologic Surgery: Yes (tubal ligation) Hysterectomy: No Insulin Pump: No Joint Replacement: No Oral Surgery: Yes Pacemaker: No Thoracic Surgery: Yes (CHEST PORT ) Tonsillectomy: Yes Other Surgery: Yes (RIGHT CHEST INFUSAPORT ) Social History Alcohol Use: No Tobacco Use: No Substance Use: No Allergies-Medications (Allergen,Severity, Reaction): Coded Allergies: Morphine (Verified Allergy, Severe, RASH, 10/13/16) *MDRO Multi-Drug Resistant Organism (Verified Adverse Reaction, Unknown, MRSA, 10/13/16) MRSA (blood) - 12/18/2004 MRSA PCR screen NEGATIVE 08/27/16 & 09/21/16 Cleared per Infection Control Reported Meds & Prescriptions Reported Meds & Active Scripts Active Lortab (Hydrocodone-Acetaminophen) 10-325 Mg Tab 1 Tab PO Q4H PRN Review of Systems Except as stated in HPI: all other systems reviewed are Neg General / Constitutional: No: Fever, Chills Cardiovascular: Positive: Chest Pain or Discomfort Respiratory: No: Cough, Shortness of Breath Gastrointestinal: No: Nausea, Vomiting, Diarrhea Genitourinary: No: Urgency, Frequency, Dysuria Musculoskeletal: Positive: Myalgias, No: Limited ROM Physical Exam Narrative GENERAL: Patient is lying on the stretcher with earphones in in no acute distress. SKIN: Warm and dry. HEAD: Atraumatic. Normocephalic. EYES: Pupils equal and round. Positive scleral icterus. ENT: No nasal bleeding or discharge. Mucous membranes pink and moist. NECK: Trachea midline. Neck is supple. CARDIOVASCULAR: Regular rate and rhythm. She is not tachycardic. RESPIRATORY: No accessory muscle use. Lungs are clear with full air movement throughout. GASTROINTESTINAL: Abdomen soft, non-tender, nondistended. MUSCULOSKELETAL: No obvious deformities. No edema. NEUROLOGICAL: Awake and alert. No obvious cranial nerve deficits. Motor grossly within normal limits. Normal speech. PSYCHIATRIC: Appropriate mood and affect; insight and judgment normal. Data Data Last Documented VS Vital Signs Date Time Temp Pulse Resp B/P Pulse Ox O2 Delivery O2 Flow Rate FiO2 10/13/16 02:18 98.7 94 16 120/63 95 Room Air Orders Basic Metabolic Panel (Bmp) (10/13/16 04:42) Complete Blood Count With Diff (10/13/16 04:42) Retic Count (10/13/16 04:42) Urinalysis - C+S If Indicated (10/13/16 04:42) Chest, Single Ap (10/13/16 04:42) Iv Access Insert/Monitor (10/13/16 04:42) Ketorolac Inj (Toradol Inj) (10/13/16 04:45) Sodium Chloride 0.9% Flush (Ns Flush) (10/13/16 04:45) Sodium Chlor 0.9% 1000 Ml Inj (Ns 1000 M (10/13/16 04:42) Heparin Central Flush (Heparin Central F (10/13/16 05:30) MDM Medical Decision Making Medical Screen Exam Complete: Yes Emergency Medical Condition: Yes Medical Record Reviewed: Yes (this patient was seen here on a very frequent basis. She was admitted in mid September. She had Escherichia coli sepsis. It looks like she actually left the hospital twice AMA and then later returned. She was eventually discharged on 09/29. She has been back here twice since then. ) Differential Diagnosis My differential diagnosis of sickle cell disease includes but is not limited to vaso-occlusive crisis, acute chest syndrome, occult infection, electrolyte disturbance, drug-seeking behavior. Narrative Course Patient presents complaining with sickle cell crisis. She looks comfortable. CXR>>No acute cardiopulmonary disease. A chest x-ray was independently viewed by me. I did not order narcotic pain medications for this patient initially. The nurse tells me that the patient now states that she is ready to leave. Diagnosis Primary Impression: Sickle cell disease Qualified Code: D57.00 - Hb-SS disease with crisis Disposition: AGAINST MEDICAL ADVICE Condition: Stable Inna Delacruz MD Oct 13, 2016 05:10
[2016-10-13 05:39] LABS: AUTOMATED NEUTROPHIL # 6.8 TH/MM3 (1.8-7.7); BASOPHIL # 0.2 TH/MM3 (0-0.2); BASOPHIL % 1.3 % (0.0-2.0); EOSINOPHIL # 0.4 TH/MM3 (0-0.4); EOSINOPHIL % 2.9 % (0.0-4.0); LYMPH % 31.1 % (9.0-44.0); LYMPHOCYTE # 3.8 TH/MM3 (1.0-4.8); MEAN CELL VOLUME 85.3 FL (80.0-100.0); MEAN CORPUSCULAR HEMOGLOBIN 29.6 PG (27.0-34.0); MEAN CORPUSCULAR HGB CONC 34.7 % (32.0-36.0); MONO % 8.4 % (0.0-8.0); NEUT % 56.3 % (16.0-70.0); PLATELET COUNT 419 TH/MM3 (150-450); RED BLOOD COUNT 2.69 MIL/MM3 (4.00-5.30); RED CELL DISTRIBUTION WIDTH 19.9 % (11.6-17.2); RETIC % 9.6 % (0.4-3.0); WHITE BLOOD COUNT 12.1 TH/MM3 (4.0-11.0)
[2016-10-13 05:45] LABS: HEMO FLAGS AUTO DIFF; REVIEW FLAG AUTO DIFF
[2016-10-13 06:09] LABS: BICARBONATE 25.1 MEQ/L (21.0-32.0); POTASSIUM 3.8 MEQ/L (3.5-5.1)
[2016-10-13 07:00] LABS: ACANTHOCYTES OCC (NORMAL)
[2016-10-13 07:02] LABS: HOWELL-JOLLY BODIES PRESENT (NONE SEEN)
[2016-10-13 07:03] LABS: SCAN/DIFF AUTO DIFF CONFIRMED
== END 2016-10-13 05:39 | disposition left against medical advice (07) ==
LOC: NEPC 02:17
DX: D57.00 Hb-SS disease with crisis, unspecified (principal); R07.9 Chest pain, unspecified; R52 Pain, unspecified; Z87.442 Personal history of urinary calculi
CPT/HCPCS: 71010; 80048; 85025; 85044; 99284; J1642; J7030

== ENCOUNTER 2016-10-14 03:03 | Emergency (ER) | payer OTHER ==
[2016-10-14 03:05] VITALS: BP 117/74; PULSE 87; RESP 16; TEMP 98.9; O2SAT 96
--- NOTE | 2016-10-14 04:09 | PD ---
HPI Chief Complaint: Sickle Cell Time Seen by Provider: 03:56 Travel History International Travel<30 days: No Contact w/Intl Traveler<30days: No Traveled to known affect area: No History of Present Illness HPI 30-year-old female complains of chest wall pain and joint pain. Patient has history of sickle cell disease. Patient has been to the emergency room multiple times recently for sickle cell pain crisis. Patient was seen in emergency room 5 times last month for sickle cell pain crisis. Patient was seen in emergency room 4 days ago for the same problem. Patient was seen in emergency room yesterday and left AMA. Patient denies any fever chills. Patient denies any new problem. CBC done yesterday which showed WBC 12.1. Hemoglobin 8.0 hematocrit 23.0. Normal differential. Reticulocyte count 9.6. PFSH Past Medical History Hx Anticoagulant Therapy: No Anemia: Yes Arthritis: No Asthma: No Autoimmune Disease: No Blood Disorders: No Anxiety: No Depression: No Cancer: No Cardiovascular Problems: No Chemotherapy: No Chest Pain: Yes Congestive Heart Failure: No COPD: No Cerebrovascular Accident: No Diabetes: No Diminished Hearing: No Endocrine: No Gastrointestinal Disorders: Yes (GALLSTONES) GERD: No Genitourinary: Yes Headaches: Yes Hiatal Hernia: No Immune Disorder: No Implanted Vascular Access Dvce: Yes (RIGHT CHEST ) Insomnia: Yes Kidney Stones: Yes Musculoskeletal: No Neurologic: No Psychiatric: No Reproductive: No Respiratory: No Immunizations Current: Yes Migraines: No Pneumonia: Yes Radiation Therapy: No Renal Failure: No Seizures: No Sickle Cell Disease: Yes Thyroid Disease: No Ulcer: No PNEUMOCCOCAL Vaccine (Year): 2 ?: Not : 2 Para: 1 Miscarriage: 1 : 0 Tubal Ligation: Yes Past Surgical History Abdominal Surgery: Yes (hector) AICD: No Arteriovenous Shunt: No Body Medical Devices: MEDPORT Cardiac Surgery: No Section: Yes Cholecystectomy: Yes Ear Surgery: No Endocrine Surgery: No Eye Surgery: No Genitourinary Surgery: No Gynecologic Surgery: Yes (tubal ligation) Hysterectomy: No Insulin Pump: No Joint Replacement: No Oral Surgery: Yes Pacemaker: No Thoracic Surgery: Yes (CHEST PORT ) Tonsillectomy: Yes Other Surgery: Yes (RIGHT CHEST INFUSAPORT ) Social History Alcohol Use: No Tobacco Use: No Substance Use: No Allergies-Medications (Allergen,Severity, Reaction): Coded Allergies: Morphine (Verified Allergy, Severe, RASH, 10/16/16) *MDRO Multi-Drug Resistant Organism (Verified Adverse Reaction, Unknown, MRSA, 10/16/16) MRSA (blood) - 12/18/2004 MRSA PCR screen NEGATIVE 08/27/16 & 09/21/16 Cleared per Infection Control Reported Meds & Prescriptions Reported Meds & Active Scripts Active Lortab (Hydrocodone-Acetaminophen) 10-325 Mg Tab 1 Tab PO Q4H PRN Review of Systems General / Constitutional: No: Fever Eyes: No: Visual changes HENT: No: Headaches Cardiovascular: Positive: Chest Pain or Discomfort Respiratory: No: Shortness of Breath Gastrointestinal: No: Abdominal Pain Genitourinary: No: Dysuria Musculoskeletal: Positive: Pain Skin: No Rash Neurologic: No: Weakness Psychiatric: No: Depression Endocrine: No: Polydipsia Hematologic/Lymphatic: No: Easy Bruising Physical Exam Narrative GENERAL: Well-nourished, well-developed patient. SKIN: Focused skin assessment warm/dry. HEAD: Normocephalic. EYES: No scleral icterus. No injection or drainage. NECK: Supple, trachea midline. No JVD or lymphadenopathy. CARDIOVASCULAR: Regular rate and rhythm without murmurs, gallops, or rubs. RESPIRATORY: Breath sounds equal bilaterally. No accessory muscle use. GASTROINTESTINAL: Abdomen soft, non-tender, nondistended. MUSCULOSKELETAL: No cyanosis, or edema. BACK: Nontender without obvious deformity. No CVA tenderness. Neurologic exam normal. Data Data Last Documented VS Vital Signs Date Time Temp Pulse Resp B/P Pulse Ox O2 Delivery O2 Flow Rate FiO2 10/14/16 03:05 98.9 87 16 117/74 96 Room Air Orders Hydromorphone Pf Inj (Dilaudid Pf Inj) (10/14/16 04:15) Diphenhydramine Inj (Benadryl Inj) (10/14/16 04:15) Ondansetron Odt (Zofran Odt) (10/14/16 04:15) MDM Medical Decision Making Medical Screen Exam Complete: Yes Emergency Medical Condition: Yes Differential Diagnosis Differential diagnosis including sickle cell pain crisis, acute on chronic pain Narrative Course 30-year-old female with frequent ED visits for sickle cell pain crisis. Blood test done yesterday and at baseline. Dilaudid 0.5 mg IM. Benadryl 25 mg IM. Zofran 4 g ODT. I advised patient I do not want to access her port today and give her the medication through the port. Patient states that she would accept the medication IM injection. Diagnosis Primary Impression: Sickle cell pain crisis Patient Instructions: General Instructions Additional Instructions: Advised patient to follow-up with her physician. Return as needed. Med/Other Pt SpecificInfo: No Change to Meds Disposition: 01 DISCHARGE HOME Condition: Stable Brent Gonsalves MD Oct 14, 2016 04:09
[2016-10-14] MEDS ORDERED: ONDANSETRON ODT 4 MG TAB PO ONE (04:15)
[2016-10-14] MEDS ORDERED: diphenhydrAMINE HCL 50 MG/ML VIAL IM ONE (04:15)
[2016-10-14] MEDS ORDERED: HYDROmorphone HCL PF 1 MG/ML VIAL IM ONE (04:15)
== END 2016-10-14 04:46 | disposition home or self-care (01) ==
LOC: NEPC 03:03
DX: D57.00 Hb-SS disease with crisis, unspecified (principal)
CPT/HCPCS: 96372; 99284; J1170; J1200

== ENCOUNTER 2016-10-16 02:59 | Emergency (ER) | payer OTHER ==
[~2016-10-16] VITALS: Ht 152.4 cm; Wt 57.0 kg
[2016-10-16 03:01] VITALS: BP 117/78; PULSE 104; RESP 18; TEMP 99.2; O2SAT 97
[2016-10-16] MEDS ORDERED: SODIUM CHLOR 0.9% 1000 ML INJ 1,000 ML IV ONE (03:44)
[2016-10-16] MEDS ORDERED: KETOROLAC TROMETHAMINE 30 MG/ML (IVP) VIAL IV PUSH ONE (04:00)
[2016-10-16 04:14] VITALS: RESP 18; O2SAT 98
[2016-10-16] MEDS: SODIUM CHLORIDE 0.9% FLUSH 10 ML FLUSH IVF PRN ×2 (04:15→05:27)
[2016-10-16 04:23] LABS: AUTOMATED NEUTROPHIL # 6.7 TH/MM3 (1.8-7.7); BASOPHIL # 0.1 TH/MM3 (0-0.2); BASOPHIL % 0.7 % (0.0-2.0); EOSINOPHIL # 0.4 TH/MM3 (0-0.4); HEMATOCRIT 23.9 % (35.0-46.0); HEMO FLAGS DIFF FINAL; LYMPH % 33.5 % (9.0-44.0); LYMPHOCYTE # 4.2 TH/MM3 (1.0-4.8); MEAN CELL VOLUME 85.6 FL (80.0-100.0); MEAN CORPUSCULAR HEMOGLOBIN 29.3 PG (27.0-34.0); MEAN CORPUSCULAR HGB CONC 34.2 % (32.0-36.0); NEUT % 52.8 % (16.0-70.0); PLATELET COUNT 357 TH/MM3 (150-450); RED BLOOD COUNT 2.79 MIL/MM3 (4.00-5.30); RED CELL DISTRIBUTION WIDTH 19.2 % (11.6-17.2); RETIC % 8.3 % (0.4-3.0); REVIEW FLAG FINAL; WHITE BLOOD COUNT 12.7 TH/MM3 (4.0-11.0)
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
[2016-10-16 04:36] LABS: BACTERIA, URINE RARE /hpf; BLOOD, URINE NEG (NEG); COMMENT (UR) CULT NOT INDICATED; CULTURE IF INDICATED CULT NOT INDICATED; GLUCOSE,URINE NEG (NEG); KETONE, URINE NEG (NEG); MUCUS URINE FEW /lpf (OCC); NITRITE,URINE NEG (NEG); PH, URINE 5.5 (5.0-8.5); SQUAMOUS EPITHELIAL CELL URINE 4 /hpf (0-5); URINE COLOR YELLOW (YELLW/STRAW)
[2016-10-16 04:41] LABS: ALT (GPT) 31 U/L (10-53); ANION GAP 10 MEQ/L (5-15); AST (GOT) 64 U/L (15-37); BICARBONATE 25.2 MEQ/L (21.0-32.0); BLOOD UREA NITROGEN 6 MG/DL (7-18); CHLORIDE 104 MEQ/L (98-107); GLOMERULAR FILTRATION RATE 165 ML/MIN (>89); POTASSIUM 3.3 MEQ/L (3.5-5.1); SODIUM (NA) 139 MEQ/L (136-145)
--- NOTE | 2016-10-16 04:42 | RADRPT ---
EXAM DATE/TIME: 10/16/2016 04:02 [facility] COMPARISON: CHEST SINGLE AP, October 13, 2016, 4:55. INDICATIONS : Cough. MEDICAL HISTORY : Hypertension. Sickle Cell disease. SURGICAL HISTORY : Infusaport. ENCOUNTER: Initial ACUITY: 1 day PAIN SCORE: 4/10 LOCATION: Bilateral chest FINDINGS: A single view of the chest demonstrates the lungs to be symmetrically aerated without evidence of mas s, infiltrate or effusion. The cardiomediastinal contours are unremarkable. Osseous structures are intact. CONCLUSION: Normal examination. Right subclavian [id number] catheter with its tip in excellent position Balbir Oneill MD on October 16, 2016 at 4:40 Board Certified Radiologist. This report was verified electronically.
[2016-10-16 04:43] LABS: ALKALINE PHOSPHATASE 116 U/L (45-117); TOTAL BILIRUBIN ADULT 1.9 MG/DL (0.2-1.0)
[2016-10-16] MEDS ORDERED: POTASSIUM CHLORIDE 20 MEQ CONTROLLED RELEASE TAB PO ONE (05:00)
[2016-10-16] MEDS ORDERED: ONDANSETRON HCL 4 MG/2 ML VIAL IV PUSH ONE (05:00)
[2016-10-16] MEDS ORDERED: diphenhydrAMINE HCL 50 MG/ML VIAL IV PUSH ONE (05:00)
[2016-10-16] MEDS ORDERED: HYDROmorphone HCL PF 1 MG/ML VIAL IV PUSH ONE (05:00)
[2016-10-16] MEDS ORDERED: SODIUM CHLORID 0.9% 500 ML INJ 500 ML IV ONE (05:00)
[2016-10-16] MEDS ORDERED: SODIUM CHLORIDE 0.9% FLUSH 10 ML FLUSH IVF PRN (05:45)
== END 2016-10-16 06:00 | disposition home or self-care (01) ==
LOC: NEPE 02:59
DX: D57.00 Hb-SS disease with crisis, unspecified (principal); J06.9 Acute upper respiratory infection, unspecified; R05 Cough; V49.9XXA Car occupant (driver) (passenger) injured in unspecified traffic accident, initial encounter
CPT/HCPCS: 71010; 80053; 81001; 84703; 85025; 85044; 86140; 87040; 96361; 96374; 96375; 99284; J1170; J1200; J1885; J2405; J7030; J7040

== ENCOUNTER 2016-10-26 03:20 | Emergency (ER) | payer OTHER ==
[~2016-10-26] VITALS: Ht 152.4 cm; Wt 57.0 kg
[2016-10-26 03:22] VITALS: BP 121/82; PULSE 110; RESP 18; TEMP 99.6; O2SAT 100
[2016-10-26] MEDS ORDERED: SODIUM CHLOR 0.9% 1000 ML INJ 1,000 ML IV ONE (03:46)
[2016-10-26] MEDS ORDERED: diphenhydrAMINE HCL 50 MG/ML VIAL IV ONE (04:00)
[2016-10-26] MEDS ORDERED: HYDROmorphone HCL PF 1 MG/ML VIAL IVS ONE (04:00)
[2016-10-26] MEDS ORDERED: SODIUM CHLORIDE 0.9% FLUSH 10 ML FLUSH IVF PRN ×2 (04:00)
--- NOTE | 2016-10-26 04:02 | PD ---
HPI Chief Complaint: Sickle Cell Time Seen by Provider: 03:40 Travel History International Travel<30 days: No Contact w/Intl Traveler<30days: No Traveled to known affect area: No History of Present Illness HPI Patient is a 30-year-old female with history of sickle cell well-known to myself and our emergency department here with complaint of pain. Patient has been feeling poorly for the last 2 days with reported subjective fevers and chills. Notes body aches throughout, most notably in the back, neck. Patient states that this is typically where her sickle cell pain seems to be most prominent. She denies any cough congestion, significant chest pain, sputum production. No abdominal pain or urinary symptoms. Patient takes methadone for her chronic pain and has been compliant with this. PFSH Past Medical History Hx Anticoagulant Therapy: No Anemia: Yes Arthritis: No Asthma: No Autoimmune Disease: No Blood Disorders: No Anxiety: No Depression: No Cancer: No Cardiovascular Problems: No Chemotherapy: No Chest Pain: Yes Congestive Heart Failure: No COPD: No Cerebrovascular Accident: No Diabetes: No Diminished Hearing: No Endocrine: No Gastrointestinal Disorders: Yes (GALLSTONES) GERD: No Genitourinary: Yes Headaches: Yes Hiatal Hernia: No Immune Disorder: No Implanted Vascular Access Dvce: Yes (RIGHT CHEST ) Insomnia: Yes Kidney Stones: Yes Musculoskeletal: No Neurologic: No Psychiatric: No Reproductive: No Respiratory: No Immunizations Current: Yes Migraines: No Pneumonia: Yes Radiation Therapy: No Renal Failure: No Seizures: No Sickle Cell Disease: Yes Thyroid Disease: No Ulcer: No PNEUMOCCOCAL Vaccine (Year): 2 ?: Not LMP: 10/26/16 : 2 Para: 1 Miscarriage: 1 : 0 Tubal Ligation: Yes Past Surgical History Abdominal Surgery: Yes (hector) AICD: No Arteriovenous Shunt: No Body Medical Devices: MEDPORT Cardiac Surgery: No Section: Yes Cholecystectomy: Yes Ear Surgery: No Endocrine Surgery: No Eye Surgery: No Genitourinary Surgery: No Gynecologic Surgery: Yes (tubal ligation) Hysterectomy: No Insulin Pump: No Joint Replacement: No Oral Surgery: Yes Pacemaker: No Thoracic Surgery: Yes (CHEST PORT ) Tonsillectomy: Yes Other Surgery: Yes (RIGHT CHEST INFUSAPORT ) Social History Alcohol Use: No Tobacco Use: No Substance Use: No Allergies-Medications (Allergen,Severity, Reaction): Coded Allergies: Morphine (Verified Allergy, Severe, RASH, 10/26/16) *MDRO Multi-Drug Resistant Organism (Verified Adverse Reaction, Unknown, MRSA, 10/26/16) MRSA (blood) - 12/18/2004 MRSA PCR screen NEGATIVE 08/27/16 & 09/21/16 Cleared per Infection Control Reported Meds & Prescriptions Reported Meds & Active Scripts Active Lortab (Hydrocodone-Acetaminophen) 10-325 Mg Tab 1 Tab PO Q4H PRN Review of Systems Except as stated in HPI: all other systems reviewed are Neg Physical Exam Narrative GENERAL: female in no acute distress SKIN: Focused skin assessment warm/dry. HEAD: Normocephalic. EYES: Pupils equal and round. No scleral icterus. No injection or drainage. ENT: No nasal bleeding or discharge. Mucous membranes pink and moist. NECK: Trachea midline. No JVD. CARDIOVASCULAR: Tachycardic with heart rate 110, regular rhythm No murmur appreciated. RESPIRATORY: No accessory muscle use. Clear to auscultation. Breath sounds equal bilaterally. GASTROINTESTINAL: Abdomen soft, non-tender, nondistended. MUSCULOSKELETAL: No obvious deformities. No edema. NEUROLOGICAL: Awake and alert. Normal speech. PSYCHIATRIC: Appropriate mood and affect; insight and judgment normal. Data Data Last Documented VS Vital Signs Date Time Temp Pulse Resp B/P Pulse Ox O2 Delivery O2 Flow Rate FiO2 10/26/16 04:38 83 18 103/65 98 Room Air 10/26/16 03:22 99.6 Orders Basic Metabolic Panel (Bmp) (10/26/16 03:46) C-Reactive Protein (Crp) (10/26/16 03:46) Complete Blood Count With Diff (10/26/16 03:46) Retic Count (10/26/16 03:46) Blood Culture (10/26/16 03:46) Chest, Single Ap (10/26/16 03:46) Ecg Monitoring (10/26/16 03:46) Iv Access Insert/Monitor (10/26/16 03:46) Oximetry (10/26/16 03:46) Sodium Chloride 0.9% Flush (Ns Flush) (10/26/16 04:00) Sodium Chlor 0.9% 1000 Ml Inj (Ns 1000 M (10/26/16 03:46) Hydromorphone Pf Inj (Dilaudid Pf Inj) (10/26/16 04:00) Diphenhydramine Inj (Benadryl Inj) (10/26/16 04:00) Heparin Central Flush (Heparin Central F (10/26/16 04:00) Sodium Chloride 0.9% Flush (Ns Flush) (10/26/16 04:00) Heparin Central Flush (Heparin Central F (10/26/16 04:00) Labs Laboratory Tests Test 10/26/16 04:00 White Blood Count 16.4 TH/MM3 Red Blood Count 3.05 MIL/MM3 Hemoglobin 8.9 GM/DL Hematocrit 25.9 % Mean Corpuscular Volume 84.7 FL Mean Corpuscular Hemoglobin 29.3 PG Mean Corpuscular Hemoglobin 34.6 % Concent Red Cell Distribution Width 20.0 % Platelet Count 386 TH/MM3 Mean Platelet Volume 7.8 FL Neutrophils (%) (Auto) 64.5 % Lymphocytes (%) (Auto) 23.9 % Monocytes (%) (Auto) 8.9 % Eosinophils (%) (Auto) 1.9 % Basophils (%) (Auto) 0.8 % Neutrophils # (Auto) 10.6 TH/MM3 Lymphocytes # (Auto) 3.9 TH/MM3 Monocytes # (Auto) 1.5 TH/MM3 Eosinophils # (Auto) 0.3 TH/MM3 Basophils # (Auto) 0.1 TH/MM3 CBC Comment AUTO DIFF Reticulocyte Count 9.7 % Absolute Reticulocyte Count 294.4 MIL/L Sodium Level 135 MEQ/L Potassium Level 3.4 MEQ/L Chloride Level 100 MEQ/L Carbon Dioxide Level 27.1 MEQ/L Anion Gap 8 MEQ/L Blood Urea Nitrogen 10 MG/DL Creatinine 0.53 MG/DL Estimat Glomerular Filtration 162 ML/MIN Rate Random Glucose 94 MG/DL Calcium Level 8.8 MG/DL C-Reactive Protein 2.77 MG/DL MDM Medical Decision Making Medical Screen Exam Complete: Yes Emergency Medical Condition: Yes Medical Record Reviewed: Yes Differential Diagnosis 30-year-old female with history of sickle cell here with subjective fevers and chills and generalized body pains for the last 1-2 days. Differential includes viral syndrome, bacteremia, acute chest syndrome, anemia, vaso-occlusive pain crisis, pneumonia Narrative Course Patient placed on monitor, her port was accessed and blood obtained. Given 1 L normal saline bolus, 1 mg Dilaudid, 25 mg Benadryl. Portal chest x-ray obtained that by my read shows no acute abnormalities. CBC, BMP, CRP, reticulocyte count, blood cultures notable for mild leukocytosis with WBC 16. CRP slightly elevated and hemoglobin is actually improved from baseline. Her heart rate normalized into the 80s after the above treatment and she is feeling improved. No evidence of acute chest syndrome at this time. Suspect viral syndrome. Will be discharged home pending blood cultures. Diagnosis Primary Impression: Viral syndrome Additional Impression: Sickle cell pain crisis Referrals: Primary Care Physician as needed Additional Instructions: Return to the ER for the warning signs discussed Med/Other Pt SpecificInfo: No Change to Meds Disposition: 01 DISCHARGE HOME Condition: Stable Theresa Casillas MD Oct 26, 2016 04:02
[2016-10-26 04:03] VITALS: RESP 18; O2SAT 100
[2016-10-26 04:12] LABS: AUTOMATED NEUTROPHIL # 10.6 TH/MM3 (1.8-7.7); BASOPHIL # 0.1 TH/MM3 (0-0.2); BASOPHIL % 0.8 % (0.0-2.0); EOSINOPHIL # 0.3 TH/MM3 (0-0.4); EOSINOPHIL % 1.9 % (0.0-4.0); HEMATOCRIT 25.9 % (35.0-46.0); LYMPH % 23.9 % (9.0-44.0); LYMPHOCYTE # 3.9 TH/MM3 (1.0-4.8); MEAN CELL VOLUME 84.7 FL (80.0-100.0); MEAN CORPUSCULAR HEMOGLOBIN 29.3 PG (27.0-34.0); MEAN CORPUSCULAR HGB CONC 34.6 % (32.0-36.0); MONO % 8.9 % (0.0-8.0); NEUT % 64.5 % (16.0-70.0); PLATELET COUNT 386 TH/MM3 (150-450); RED BLOOD COUNT 3.05 MIL/MM3 (4.00-5.30); RETIC % 9.7 % (0.4-3.0); WHITE BLOOD COUNT 16.4 TH/MM3 (4.0-11.0)
[2016-10-26 04:14] LABS: HEMO FLAGS AUTO DIFF; REVIEW FLAG AUTO DIFF
--- NOTE | 2016-10-26 04:29 | RADRPT ---
EXAM DATE/TIME: 10/26/2016 03:45 [facility] COMPARISON: CHEST SINGLE AP, October 16, 2016, 4:02. INDICATIONS : Pt feeling shortness of breath. MEDICAL HISTORY : Sickle Cell disease. SURGICAL HISTORY : None. ENCOUNTER: Initial ACUITY: 1 day PAIN SCORE: 6/10 LOCATION: Bilateral chest FINDINGS: Right Fsrvrp-r-Uyih tip in superior vena cava. Minimal basilar atelectasis. No effusion. No pneumotho rax. Heart size upper limits normal. CONCLUSION: 1. Right Qiuosr-i-Sywd in superior vena cava. Minimal basilar atelectasis. No significant change from October 16. Patrice Cheema MD on October 26, 2016 at 4:27 Board Certified Radiologist. This report was verified electronically.
[2016-10-26 04:33] LABS: BICARBONATE 27.1 MEQ/L (21.0-32.0); POTASSIUM 3.4 MEQ/L (3.5-5.1)
[2016-10-26 04:38] VITALS: BP 103/65; PULSE 83; RESP 18; O2SAT 98
[2016-10-26 05:42] LABS: TARGET CELLS 1+ (NORMAL)
[2016-10-26 05:43] LABS: OVALOCYTES 1+ (NORMAL); PLATELET ESTIMATE SMEAR NORMAL (NORMAL); PLATELET MORPHOLOGY NORMAL (NORMAL); SCAN/DIFF AUTO DIFF CONFIRMED; SICKLE CELLS 1+ (NORMAL)
== END 2016-10-26 05:15 | disposition home or self-care (01) ==
LOC: NEPE 03:20
DX: B34.9 Viral infection, unspecified (principal); D57.00 Hb-SS disease with crisis, unspecified; Z87.442 Personal history of urinary calculi
CPT/HCPCS: 71010; 80048; 85025; 85044; 86140; 87040; 96361; 96374; 96375; 99284; J1170; J1200; J1642; J7030

== ENCOUNTER 2016-10-31 03:42 | Emergency (ER) | payer OTHER ==
[~2016-10-31] VITALS: Ht 152.4 cm; Wt 57.0 kg
[2016-10-31 03:43] VITALS: BP 129/62; PULSE 98; RESP 16; TEMP 99.2; O2SAT 98
== END 2016-10-31 04:06 | disposition left against medical advice (07) ==
LOC: NEPC 03:42
DX: D57.1 Sickle-cell disease without crisis (principal)
CPT/HCPCS: 99281

== ENCOUNTER 2016-11-02 03:30 | Emergency (ER) | payer OTHER ==
[~2016-11-02] VITALS: Ht 152.4 cm; Wt 58.0 kg
[~2016-11-02 03:30] MED LIST changes: +FOLI1TAB4 PO; +LEVA750T PO
[2016-11-02 03:32] VITALS: BP 122/74; PULSE 89; RESP 15; TEMP 99.6; O2SAT 96
--- NOTE | 2016-11-02 05:36 | PD ---
HPI Chief Complaint: Sickle Cell Time Seen by Provider: 05:36 Travel History International Travel<30 days: No Contact w/Intl Traveler<30days: No Traveled to known affect area: No History of Present Illness HPI 31-year-old female came to the emergency room with history of body ache from her sickle cell crisis. Patient has been here multiple times. Says this time she came back from [facility] and ever since she has been hurting. Vital signs are stable. She did not appear in any significant distress. [facility] Past Medical History Narrative Medical List of her past medical, surgical, social and family history was reviewed from the nursing note. Hx Anticoagulant Therapy: No Anemia: Yes Arthritis: No Asthma: No Autoimmune Disease: No Blood Disorders: No Anxiety: No Depression: No Cancer: No Cardiovascular Problems: No Chemotherapy: No Chest Pain: Yes Congestive Heart Failure: No COPD: No Cerebrovascular Accident: No Diabetes: No Diminished Hearing: No Endocrine: No Gastrointestinal Disorders: Yes (GALLSTONES) GERD: No Genitourinary: Yes Headaches: Yes Hiatal Hernia: No Immune Disorder: No Implanted Vascular Access Dvce: Yes (RIGHT CHEST ) Insomnia: Yes Kidney Stones: Yes Musculoskeletal: No Neurologic: No Psychiatric: No Reproductive: No Respiratory: No Immunizations Current: Yes Migraines: No Pneumonia: Yes Radiation Therapy: No Renal Failure: No Seizures: No Sickle Cell Disease: Yes Thyroid Disease: No Ulcer: No PNEUMOCCOCAL Vaccine (Year): 2 ?: Not LMP: CURRENT : 2 Para: 1 Miscarriage: 1 : 0 Tubal Ligation: Yes Past Surgical History Abdominal Surgery: Yes (hector) AICD: No Arteriovenous Shunt: No Body Medical Devices: MEDPORT Cardiac Surgery: No Section: Yes Cholecystectomy: Yes Ear Surgery: No Endocrine Surgery: No Eye Surgery: No Genitourinary Surgery: No Gynecologic Surgery: Yes (tubal ligation) Hysterectomy: No Insulin Pump: No Joint Replacement: No Oral Surgery: Yes Pacemaker: No Thoracic Surgery: Yes (CHEST PORT ) Tonsillectomy: Yes Other Surgery: Yes (RIGHT CHEST INFUSAPORT ) Social History Alcohol Use: No Tobacco Use: No Substance Use: No Allergies-Medications (Allergen,Severity, Reaction): Coded Allergies: Morphine (Verified Allergy, Severe, RASH, 11/05/16) *MDRO Multi-Drug Resistant Organism (Verified Adverse Reaction, Unknown, MRSA, 11/05/16) MRSA (blood) - 12/18/2004 MRSA PCR screen NEGATIVE 08/27/16 & 09/21/16 Cleared per Infection Control Comments List of her allergies reviewed from the nursing note. Reported Meds & Prescriptions Reported Meds & Active Scripts Active Lortab (Hydrocodone-Acetaminophen) 10-325 Mg Tab 1 Tab PO Q4H PRN Narrative Medication List of her home medications reviewed from the nursing note. Review of Systems Except as stated in HPI: all other systems reviewed are Neg Physical Exam Narrative GENERAL: Awake, alert, no obvious distress SKIN: Focused skin assessment warm/dry. HEAD: Atraumatic. Normocephalic. EYES: Pupils equal and round. No scleral icterus. No injection or drainage. ENT: No nasal bleeding or discharge. Mucous membranes pink and moist. NECK: Trachea midline. No JVD. CARDIOVASCULAR: Regular rate and rhythm. No murmur appreciated. RESPIRATORY: No accessory muscle use. Clear to auscultation. Breath sounds equal bilaterally. GASTROINTESTINAL: Abdomen soft, non-tender, nondistended. Hepatic and splenic margins not palpable. MUSCULOSKELETAL: No obvious deformities. No clubbing. No cyanosis. No edema. NEUROLOGICAL: Awake and alert. No obvious cranial nerve deficits. Motor grossly within normal limits. Normal speech. PSYCHIATRIC: Appropriate mood and affect; insight and judgment normal. Data Data Last Documented VS Orders Ketorolac Inj (Toradol Inj) (11/02/16 06:00) [facility] Medical Decision Making Medical Screen Exam Complete: Yes Emergency Medical Condition: Yes Medical Record Reviewed: Yes Differential Diagnosis Sickle cell crisis, chronic pain Narrative Course 5:54 AM patient is medicated for pain. I'll discharge her home. She is drinking Gatorade. Procedures EKG Prior to Arrival: No Diagnosis Primary Impression: Chronic pain Qualified Code: G89.29 - Other chronic pain Referrals: Primary Care Physician Additional Instructions: Please follow-up with her primary care. Disposition: DISCHARGE HOME Condition: Iesha Hannah MD Nov 02, 2016 05:36 Referrals: Primary Care Physician Additional Instructions: Please follow-up with her primary care. Disposition: DISCHARGE HOME Condition: Iesha Hannah MD Nov 02, 2016 05:36
[2016-11-02] MEDS ORDERED: KETOROLAC TROMETHAMINE 60 MG/2 ML (IM) VIAL IM ONE (06:00)
== END 2016-11-02 06:14 | disposition home or self-care (01) ==
LOC: NEPC 03:30
DX: G89.29 Other chronic pain (principal); D57.00 Hb-SS disease with crisis, unspecified; Z88.5 Allergy status to narcotic agent; Z79.899 Other long term (current) drug therapy
CPT/HCPCS: 99281

== ENCOUNTER 2016-11-04 09:38 | Emergency (ER) | payer OTHER ==
[~2016-11-04] VITALS: Ht 152.4 cm; Wt 58.0 kg
[~2016-11-04 09:38] MED LIST changes: -FOLI1TAB4 PO; -LEVA750T PO
== END 2016-11-04 11:07 | disposition left against medical advice (07) ==
LOC: NEPC 09:38
DX: D57.1 Sickle-cell disease without crisis (principal); Z53.21 Procedure and treatment not carried out due to patient leaving prior to being seen by health care provider
CPT/HCPCS: 99281

== ENCOUNTER 2016-11-05 03:17 | Emergency (ER) | payer OTHER ==
[2016-11-05 03:19] VITALS: BP 117/71; PULSE 97; RESP 18; TEMP 98.7; O2SAT 96
[2016-11-05] MEDS ORDERED: SODIUM CHLOR 0.9% 1000 ML INJ 1,000 ML IV ONE ×2 (03:50→06:15)
--- NOTE | 2016-11-05 03:57 | PD ---
HPI Chief Complaint: Chest Pain Time Seen by Provider: 03:50 Travel History International Travel<30 days: No Contact w/Intl Traveler<30days: No Traveled to known affect area: No History of Present Illness HPI The patient is a 31 year old female who presents to the [facility] emergency department with a history of all over body pain that began on Friday. The patient reports that the pain is similar to her prior sickle cell pain crises. She last took Lortab 10mg for pain at 11 PM. She has had intermittent fevers. Her last fever was 100.8 yesterday. She has chest pain that has been constant since Friday. Her last BM was this morning. The patient denies any recent cough, congestion, neck pain, shortness of breath, abdominal pain, vomiting, diarrhea, urinary symptoms, or neurologic symptoms. LMP: Started on Friday. PFSH Past Medical History Narrative Medical The patient's past medical history is significant for sickle cell anemia with frequent pain crises, history of sepsis related to Escherichia coli, history of headaches, history of kidney stones, remote prior history of pneumonia. Hx Anticoagulant Therapy: No Anemia: Yes Arthritis: No Asthma: No Autoimmune Disease: No Blood Disorders: No Anxiety: No Depression: No Cancer: No Cardiovascular Problems: No Chemotherapy: No Chest Pain: Yes Congestive Heart Failure: No COPD: No Cerebrovascular Accident: No Diabetes: No Diminished Hearing: No Endocrine: No Gastrointestinal Disorders: Yes (GALLSTONES) GERD: No Genitourinary: Yes Headaches: Yes Hiatal Hernia: No Immune Disorder: No Implanted Vascular Access Dvce: Yes (RIGHT CHEST ) Insomnia: Yes Kidney Stones: Yes Musculoskeletal: No Neurologic: No Psychiatric: No Reproductive: No Respiratory: No Immunizations Current: Yes Migraines: No Pneumonia: Yes Radiation Therapy: No Renal Failure: No Seizures: No Sickle Cell Disease: Yes Thyroid Disease: No Ulcer: No PNEUMOCCOCAL Vaccine (Year): 2 ?: Not : 2 Para: 1 Miscarriage: 1 : 0 Tubal Ligation: Yes Past Surgical History Narrative Surgical The patient's past surgical history is significant for bilateral tubal ligation , Drggro-a-Vmvh placement, cholecystectomy, , tonsillectomy. Abdominal Surgery: Yes (hector) AICD: No Arteriovenous Shunt: No Body Medical Devices: MEDPORT Cardiac Surgery: No Section: Yes Cholecystectomy: Yes Ear Surgery: No Endocrine Surgery: No Eye Surgery: No Genitourinary Surgery: No Gynecologic Surgery: Yes (tubal ligation) Hysterectomy: No Insulin Pump: No Joint Replacement: No Oral Surgery: Yes Pacemaker: No Thoracic Surgery: Yes (CHEST PORT ) Tonsillectomy: Yes Other Surgery: Yes (RIGHT CHEST INFUSAPORT ) Social History Alcohol Use: No Tobacco Use: No Substance Use: No Allergies-Medications (Allergen,Severity, Reaction): Coded Allergies: Morphine (Verified Allergy, Severe, RASH, 11/05/16) *MDRO Multi-Drug Resistant Organism (Verified Adverse Reaction, Unknown, MRSA, 11/05/16) MRSA (blood) - 12/18/2004 MRSA PCR screen NEGATIVE 08/27/16 & 09/21/16 Cleared per Infection Control Reported Meds & Prescriptions Reported Meds & Active Scripts Active Lortab (Hydrocodone-Acetaminophen) 10-325 Mg Tab 1 Tab PO Q4H PRN Review of Systems Except as stated in HPI: all other systems reviewed are Neg General / Constitutional: Positive: Fever Eyes: No: Visual changes HENT: No: Headaches Cardiovascular: Positive: Chest Pain or Discomfort Respiratory: No: Shortness of Breath Gastrointestinal: No: Nausea, Vomiting, Diarrhea, Abdominal Pain Genitourinary: No: Dysuria Musculoskeletal: Positive: Myalgias, Arthralgias, Pain, No: Edema Skin: No Rash Neurologic: No: Weakness Psychiatric: No: Depression Endocrine: No: Polydipsia Hematologic/Lymphatic: No: Easy Bruising Physical Exam Narrative General: The patient is a well-developed well-nourished female, uncomfortable appearing on arrival, tearful on examination. Head and Neck exam: Head is normocephalic atraumatic. Eyes: EOMI, pupils are equal round and reactive to light. Nose: Midline septum with pink mucous membranes Mouth: Dentition unremarkable. Moist mucus membranes. Posterior oropharynx is not erythematous. No tonsillar hypertrophy. Uvula midline. Airway patent. Neck: No palpable lymphadenopathy. No nuchal rigidity. No thyromegaly. Cardiovascular: Regular rate and rhythm without murmurs, gallops, or rubs. Lungs: Clear to auscultation bilaterally. No wheezes, rhonchi, or rales. Abdomen: Soft, without tenderness to palpation in all 4 quadrants of the abdomen. No guarding, rebound, or rigidity. Normal bowel sounds are audible. No tenderness on palpation of McBurney's point. Extremities: No clubbing, cyanosis, or edema. 2+ pulses in all 4 extremities. No calf tenderness on palpation. No joint swelling or erythema or loss of range of motion on examination of her extremities. Back: No spinous process tenderness to palpation. No costovertebral angle tenderness to palpation. No step-off or crepitus, no erythema or ecchymosis. Neurologic Exam: Grossly nonfocal. Skin Exam: No rash noted. Intact skin that is warm and dry. Data Data Last Documented VS Vital Signs Date Time Temp Pulse Resp B/P Pulse Ox O2 Delivery O2 Flow Rate FiO2 11/05/16 06:44 100 Room Air 11/05/16 03:19 98.7 97 18 117/71 Orders C-Reactive Protein (Crp) (11/05/16 03:50) Complete Blood Count With Diff (11/05/16 03:50) Comprehensive Metabolic Panel (11/05/16 03:50) Retic Count (11/05/16 03:50) Urinalysis - C+S If Indicated (11/05/16 03:50) Blood Culture (11/05/16 03:50) Chest, Single Ap (11/05/16 03:50) Ecg Monitoring (11/05/16 03:50) Iv Access Insert/Monitor (11/05/16 03:50) Oximetry (11/05/16 03:50) Oxygen Administration (11/05/16 03:50) Sodium Chloride 0.9% Flush (Ns Flush) (11/05/16 04:00) Sodium Chlor 0.9% 1000 Ml Inj (Ns 1000 M (11/05/16 03:50) Creatine Kinase (Cpk) (11/05/16 03:50) Ckmb (Isoenzyme) Profile (11/05/16 03:50) Troponin I (11/05/16 03:50) B-Type Natriuretic Peptide (11/05/16 03:50) Ed Urine Pregnancytest Poc (11/05/16 03:50) Hydromorphone Pf Inj (Dilaudid Pf Inj) (11/05/16 05:15) Ondansetron Inj (Zofran Inj) (11/05/16 05:15) Diphenhydramine Inj (Benadryl Inj) (11/05/16 05:15) Sodium Chlor 0.9% 1000 Ml Inj (Ns 1000 M (11/05/16 06:15) Labs Laboratory Tests Test 11/05/16 04:08 White Blood Count 16.4 TH/MM3 Red Blood Count 2.89 MIL/MM3 Hemoglobin 8.2 GM/DL Hematocrit 24.6 % Mean Corpuscular Volume 85.3 FL Mean Corpuscular Hemoglobin 28.4 PG Mean Corpuscular Hemoglobin 33.3 % Concent Red Cell Distribution Width 20.5 % Platelet Count 350 TH/MM3 Mean Platelet Volume 8.0 FL Neutrophils (%) (Auto) 42.0 % Lymphocytes (%) (Auto) 44.4 % Monocytes (%) (Auto) 9.9 % Eosinophils (%) (Auto) 2.6 % Basophils (%) (Auto) 1.1 % Neutrophils # (Auto) 6.9 TH/MM3 Lymphocytes # (Auto) 7.3 TH/MM3 Monocytes # (Auto) 1.6 TH/MM3 Eosinophils # (Auto) 0.4 TH/MM3 Basophils # (Auto) 0.2 TH/MM3 CBC Comment AUTO DIFF Differential Total Cells 100 Counted Neutrophils % (Manual) 45 % Band Neutrophils % 3 % Lymphocytes % 38 % Monocytes % 7 % Eosinophils % 5 % Neutrophils # (Manual) 8.2 TH/MM3 Metamyelocytes 1 % Myelocytes 1 % Nucleated Red Blood Cells 3 /100 WBC Differential Comment FINAL DIFF MANUAL Toxic Vacuolation PRESENT Platelet Estimate NORMAL Platelet Morphology Comment NORMAL Sickle Cells 1+ [place] Bodies PRESENT Reticulocyte Count 12.1 % Absolute Reticulocyte Count 348.5 MIL/L Sodium Level 137 MEQ/L Potassium Level 3.4 MEQ/L Chloride Level 102 MEQ/L Carbon Dioxide Level 26.8 MEQ/L Anion Gap 8 MEQ/L Blood Urea Nitrogen 7 MG/DL Creatinine 0.58 MG/DL Estimat Glomerular Filtration 145 ML/MIN Rate Random Glucose 112 MG/DL Calcium Level 8.5 MG/DL Total Bilirubin 2.3 MG/DL Aspartate Amino Transf 59 U/L (AST/SGOT) Alanine Aminotransferase 20 U/L (ALT/SGPT) Alkaline Phosphatase 114 U/L Total Creatine Kinase 41 U/L Troponin I LESS THAN 0.02 NG/ML C-Reactive Protein 1.30 MG/DL B-Type Natriuretic Peptide 7 PG/ML Total Protein 8.7 GM/DL Albumin 3.3 GM/DL MDM Medical Decision Making Medical Screen Exam Complete: Yes Emergency Medical Condition: Yes Medical Record Reviewed: Yes Interpretation(s) Last Impressions Chest X-Ray 11/05/16 0350 Signed Impressions: Service Date/Time: Saturday, November 05, 2016 04:06 - CONCLUSION: No focal infiltrates seen. Marquis Redding MD Differential Diagnosis Sickle cell pain crisis, versus pneumonia, versus chest syndrome, versus urinary tract infection Narrative Course During the course of the patients emergency department visit, the patients history, examination, and differential diagnosis were reviewed with the patient. The patient had IV access obtained and blood work sent for analysis. The patient was placed on a awake overnight monitor with oximetry and blood pressure monitoring. An EKG was done on arrival. The patient's EKG shows a sinus tachycardia rate of 118, however the patient was crying during her initial evaluation. QRS duration 85 ms, QTC 497 ms, nonspecific T-wave abnormalities are noted, T waves inverted in V1, V3, V4, V5. The patient was initially provided hydromorphone 1 mg IV, Benadryl 25 mg IV, Zofran 4 mg IV, normal saline 1 L IV fluid bolus was administered. This was repeated 1. The patient was started on nasal cannula O2. The patients laboratory studies were reviewed and remarkable for a white count 16.4 which is the same as previously, hemoglobin 8.2 which is at the patient's baseline, platelets 350 with 44.4 lymphocytes, monocytes 9.9. CRP is 1.3 which is decreased compared to 2.77 on October 26. CMP is remarkable for potassium 3.4, glucose 112, AST 59, CPK 41, troponin I less than 0.02, BNP 7, urinalysis is pending Radiology studies were reviewed and remarkable for a chest x-ray that shows no evidence of acute infiltrates. The patient's results were discussed with her, the only thing that is pending is a urinalysis. 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 As the urinalysis is pending I did discuss this further with Dr. Gonsalves. He will review the patient's urinalysis and treat with antibiotic necessary. The patient is resting comfortably and feels better, is alert and in no distress. The patients results and examination findings were discussed with the patient. The repeat examination is unremarkable and benign. The history, exam, diagnostic testing, and current condition do not suggest any significant pathology to warrant further testing, continued ED treatment, admission, or surgical evaluation at this point. The vital signs have been stable. The patient does not have uncontrollable pain, intractable vomiting, or other significant symptoms. The patient's condition is stable and appropriate for discharge. The patient will pursue further outpatient evaluation with a primary care physician or other designated or consulting physician as indicated in the discharge instructions. The patient expressed understanding and was agreeable with this plan. Diagnosis Primary Impression: Sickle cell pain crisis Referrals: Primary Care Physician 2 days Patient Instructions: General Instructions, Sickle Cell Crisis (ED) Med/Other Pt SpecificInfo: No Change to Meds Disposition: 01 DISCHARGE HOME Condition: Stable Mignon Lin MD Nov 05, 2016 03:57
[2016-11-05] MEDS ORDERED: SODIUM CHLORIDE 0.9% FLUSH 10 ML FLUSH IVF PRN (04:00)
[2016-11-05 04:21] LABS: AUTOMATED NEUTROPHIL # 6.9 TH/MM3 (1.8-7.7); BASOPHIL # 0.2 TH/MM3 (0-0.2); BASOPHIL % 1.1 % (0.0-2.0); EOSINOPHIL # 0.4 TH/MM3 (0-0.4); EOSINOPHIL % 2.6 % (0.0-4.0); HEMATOCRIT 24.6 % (35.0-46.0); LYMPH % 44.4 % (9.0-44.0); LYMPHOCYTE # 7.3 TH/MM3 (1.0-4.8); MEAN CELL VOLUME 85.3 FL (80.0-100.0); MEAN CORPUSCULAR HEMOGLOBIN 28.4 PG (27.0-34.0); MEAN CORPUSCULAR HGB CONC 33.3 % (32.0-36.0); MONO % 9.9 % (0.0-8.0); PLATELET COUNT 350 TH/MM3 (150-450); RED BLOOD COUNT 2.89 MIL/MM3 (4.00-5.30); RED CELL DISTRIBUTION WIDTH 20.5 % (11.6-17.2); RETIC % 12.1 % (0.4-3.0); WHITE BLOOD COUNT 16.4 TH/MM3 (4.0-11.0)
[2016-11-05 04:23] LABS: HEMO FLAGS AUTO DIFF; REVIEW FLAG AUTO DIFF
--- NOTE | 2016-11-05 04:31 | RADRPT ---
EXAM DATE/TIME: 11/05/2016 04:06 [facility] COMPARISON: CHEST SINGLE AP, October 26, 2016, 3:45. INDICATIONS : Short of breath. MEDICAL HISTORY : Sickle Cell disease. SURGICAL HISTORY : None. ENCOUNTER: Initial ACUITY: 1 day PAIN SCORE: 0/10 LOCATION: Bilateral chest FINDINGS: A single view of the chest demonstrates the lungs to be symmetrically aerated without evidence of mas s, infiltrate or effusion. The cardiomediastinal contours are unremarkable. Osseous structures are intact. Serebi-d-Eghh catheter tip at the cavoatrial junction. CONCLUSION: No focal infiltrates seen. Marquis Redding MD on November 05, 2016 at 4:30 Board Certified Radiologist. This report was verified electronically.
[2016-11-05 04:46] LABS: ALKALINE PHOSPHATASE 114 U/L (45-117); TOTAL BILIRUBIN ADULT 2.3 MG/DL (0.2-1.0)
[2016-11-05 05:01] LABS: ALT (GPT) 20 U/L (10-53); ANION GAP 8 MEQ/L (5-15); AST (GOT) 59 U/L (15-37); BICARBONATE 26.8 MEQ/L (21.0-32.0); BLOOD UREA NITROGEN 7 MG/DL (7-18); CHLORIDE 102 MEQ/L (98-107); GLOMERULAR FILTRATION RATE 145 ML/MIN (>89); POTASSIUM 3.4 MEQ/L (3.5-5.1); SODIUM (NA) 137 MEQ/L (136-145)
[2016-11-05 05:02] LABS: CREATINE KINASE 41 U/L (26-192)
[2016-11-05] MEDS ORDERED: ONDANSETRON HCL 4 MG/2 ML VIAL IV PUSH ONE (05:15)
[2016-11-05] MEDS ORDERED: HYDROmorphone HCL PF 1 MG/ML VIAL IV PUSH ONE (05:15)
[2016-11-05] MEDS ORDERED: diphenhydrAMINE HCL 50 MG/ML VIAL IV PUSH ONE (05:15)
[2016-11-05 05:18] LABS: BANDS 3 % (0-6); CORRECTED NUCLEATED RBC 3 /100 WBC (0-0); EOSINOPHILS 5 % (0-4); METAMYELOCYTES 1 % (0-1); MYELOCYTES 1 % (0-0); NEUTROPHIL # MANUAL DIFF 8.2 TH/MM3 (1.8-7.7); PLATELET ESTIMATE SMEAR NORMAL (NORMAL); PLATELET MORPHOLOGY NORMAL (NORMAL); POLYS (SEG NEUTROPHILS) 45 % (16-70); SCAN/DIFF FINAL DIFF MANUAL; WBC DIFF SAMPLE 100
[2016-11-05 05:19] LABS: HOWELL-JOLLY BODIES PRESENT (NONE SEEN); SICKLE CELLS 1+ (NORMAL); TOXIC VACUOLATION PRESENT (NONE SEEN)
[2016-11-05 06:44] VITALS: O2SAT 100
[2016-11-05 07:21] VITALS: BP 117/67; PULSE 86; RESP 18; O2SAT 98
[2016-11-05 07:32] LABS: BLOOD, URINE NEG (NEG); COMMENT (UR) CULT NOT INDICATED; CULTURE IF INDICATED CULT NOT INDICATED; GLUCOSE,URINE NEG (NEG); HYALINE CAST, URINE 1 /lpf (RARE); KETONE, URINE NEG (NEG); MUCUS URINE FEW /lpf (OCC); NITRITE,URINE NEG (NEG); PH, URINE 5.5 (5.0-8.5); SQUAMOUS EPITHELIAL CELL URINE 2 /hpf (0-5); URINE COLOR YELLOW (YELLW/STRAW)
--- NOTE | 2016-11-07 00:02 | EKG ---
Date Performed: 11/05/2016 Time Performed: 03:45:53 PTAGE: 31 years EKG: SINUS TACHYCARDIA ST DEVIATION AND MODERATE T-WAVE ABNORMALITY, ABNORMAL ECG PREVIOUS TRACING : 02/04/2016 06.19 Compared to the previous tracing RATE FASTER DOCTOR: Rocco Monahan Interpretating Date/Time 11/07/2016 00:00:43
== END 2016-11-05 07:40 | disposition home or self-care (01) ==
LOC: NEPE 03:17
DX: D57.00 Hb-SS disease with crisis, unspecified (principal); R00.0 Tachycardia, unspecified
CPT/HCPCS: 71010; 80053; 81001; 82550; 83880; 84484; 84703; 85007; 85027; 85044; 86140; 87040; 93005; 96374; 96375; 99284; J1170; J1200; J1642; J2405; J7030

== ENCOUNTER 2016-11-09 02:39 | Emergency (ER) | payer OTHER ==
[2016-11-09 02:42] VITALS: BP 112/64; PULSE 94; TEMP 98.8; O2SAT 100
[2016-11-09] MEDS ORDERED: FOLI400T PO (02:57)
[2016-11-09] MEDS ORDERED: SODIUM CHLOR 0.9% 1000 ML INJ 1,000 ML IV ONE (03:26)
[2016-11-09 03:28] LABS: MEAN CORPUSCULAR HGB CONC 37.2 % (32.0-36.0)
[2016-11-09] MEDS ORDERED: ONDANSETRON HCL 4 MG/2 ML VIAL IVP ONE (03:30)
[2016-11-09] MEDS ORDERED: diphenhydrAMINE HCL 50 MG/ML VIAL IV ONE (03:30)
[2016-11-09] MEDS ORDERED: HYDROmorphone HCL PF 1 MG/ML VIAL IVS ONE (03:30)
[2016-11-09] MEDS ORDERED: KETOROLAC TROMETHAMINE 30 MG/ML (IVP) VIAL IVP ONE (03:30)
[2016-11-09] MEDS ORDERED: SODIUM CHLORIDE 0.9% FLUSH 10 ML FLUSH IVF PRN (03:30)
--- NOTE | 2016-11-09 03:51 | RADRPT ---
EXAM DATE/TIME: 11/09/2016 03:38 [place] COMPARISON: CHEST SINGLE AP, November 05, 2016, 4:06. INDICATIONS : Shortness of breat for two days. Pain in center chest area. MEDICAL HISTORY : Sickle Cell disease. SURGICAL HISTORY : None. ENCOUNTER: Initial ACUITY: 2 days PAIN SCORE: 7/10 LOCATION: Bilateral chest FINDINGS: A single view of the chest demonstrates the lungs to be symmetrically aerated without evidence of mas s, infiltrate or effusion. The cardiomediastinal contours are unremarkable. Osseous structures are intact. CONCLUSION: Normal examination. Right subclavian Jtwgqj-r-Jizb catheter Balbir Oneill MD on November 09, 2016 at 3:48 Board Certified Radiologist. This report was verified electronically.
[2016-11-09 04:15] LABS: AUTOMATED NEUTROPHIL # 7.2 TH/MM3 (1.8-7.7); BASOPHIL # 0.1 TH/MM3 (0-0.2); BASOPHIL % 1.1 % (0.0-2.0); EOSINOPHIL # 0.3 TH/MM3 (0-0.4); EOSINOPHIL % 2.2 % (0.0-4.0); HEMATOCRIT 21.7 % (35.0-46.0); LYMPH % 32.8 % (9.0-44.0); LYMPHOCYTE # 4.2 TH/MM3 (1.0-4.8); MEAN CORPUSCULAR HEMOGLOBIN 31.3 PG (27.0-34.0); MONO % 8.3 % (0.0-8.0); NEUT % 55.6 % (16.0-70.0); PLATELET COUNT 335 TH/MM3 (150-450); RED BLOOD COUNT 2.59 MIL/MM3 (4.00-5.30); RED CELL DISTRIBUTION WIDTH 21.4 % (11.6-17.2); RETIC % 12.1 % (0.4-3.0); WHITE BLOOD COUNT 12.9 TH/MM3 (4.0-11.0)
[2016-11-09 04:17] LABS: HEMO FLAGS AUTO DIFF
[2016-11-09 04:18] LABS: REVIEW FLAG AUTO DIFF
[2016-11-09 04:51] LABS: BICARBONATE 27.9 MEQ/L (21.0-32.0); POTASSIUM 3.7 MEQ/L (3.5-5.1)
[2016-11-09 05:33] LABS: BANDS 2 % (0-6); BASOPHILS 1 % (0-2); CORRECTED NUCLEATED RBC 5 /100 WBC (0-0); EOSINOPHILS 4 % (0-4); NEUTROPHIL # MANUAL DIFF 7.2 TH/MM3 (1.8-7.7); POLYS (SEG NEUTROPHILS) 54 % (16-70); WBC DIFF SAMPLE 100
[2016-11-09 05:34] LABS: SICKLE CELLS 2+ (NORMAL)
[2016-11-09 05:35] LABS: PLATELET ESTIMATE SMEAR NORMAL (NORMAL); PLATELET MORPHOLOGY NORMAL (NORMAL); SCAN/DIFF FINAL DIFF MANUAL; TARGET CELLS 1+ (NORMAL)
[2016-11-09] MEDS ORDERED: HYDROmorphone HCL PF 1 MG/ML VIAL IV PUSH ONE (06:15)
[2016-11-09 06:20] VITALS: O2SAT 95
[2016-11-09 06:21] VITALS: BP 105/61; PULSE 72; RESP 18; O2SAT 95
--- NOTE | 2016-11-09 06:26 | PD ---
HPI Chief Complaint: Sickle Cell Time Seen by Provider: 03:26 Travel History International Travel<30 days: No Contact w/Intl Traveler<30days: No Traveled to known affect area: No History of Present Illness HPI 31-year-old female presents to the emergency department complaining of 3 days of generalized body pain consistent with exacerbation of her sickle cell disease. Patient states she return from the [facility] 1 week ago Friday and since that time has had bone pain affecting her arms or back or chest or spine her pelvis and her extremities. Patient states this is consistent with a flare- up of her sickle cell disease. Patient was seen by her restaurant and bar manager reportedly last was seen reportedly in the emergency department on Friday of this week and then saw her restaurant and bar manager again on who told her to come to the emergency room when she has these episodes and if anyone has a concern about her need to be here to call his office. Patient states that she has been taking her medication as prescribed and has not provided any relief. Patient does not report any fever or chills. Patient states often times when she has her. She will also have an exacerbation of her anemia. Patient reportedly started her period 3 days ago and states this is day 3 of her period. Review of medical records from her visit Friday indicates that her. Actually began on Friday based on that report and that information provided by her on Friday. Patient denies . Patient is status post tubal ligation. Patient does not report pelvic pain or abdominal pain. PFSH Past Medical History Narrative Medical Sickle cell anemia headache kidney stones cholecystectomy [id number] tubal ligation; no tobacco use: Nursing notes reviewed Hx Anticoagulant Therapy: No Anemia: Yes Arthritis: No Asthma: No Autoimmune Disease: No Blood Disorders: No Anxiety: No Depression: No Cancer: No Cardiovascular Problems: No Chemotherapy: No Chest Pain: Yes Congestive Heart Failure: No COPD: No Cerebrovascular Accident: No Diabetes: No Diminished Hearing: No Endocrine: No Gastrointestinal Disorders: Yes (GALLSTONES) GERD: No Genitourinary: Yes Headaches: Yes Hiatal Hernia: No Immune Disorder: No Implanted Vascular Access Dvce: Yes (RIGHT CHEST ) Insomnia: Yes Kidney Stones: Yes Musculoskeletal: No Neurologic: No Psychiatric: No Reproductive: No Respiratory: No Immunizations Current: Yes Migraines: No Pneumonia: Yes Radiation Therapy: No Renal Failure: No Seizures: No Sickle Cell Disease: Yes Thyroid Disease: No Ulcer: No PNEUMOCCOCAL Vaccine (Year): 2 ?: Not : 2 Para: 1 Miscarriage: 1 : 0 Tubal Ligation: Yes Past Surgical History Abdominal Surgery: Yes (hector) AICD: No Arteriovenous Shunt: No Body Medical Devices: MEDPORT Cardiac Surgery: No Section: Yes Cholecystectomy: Yes Ear Surgery: No Endocrine Surgery: No Eye Surgery: No Genitourinary Surgery: No Gynecologic Surgery: Yes (tubal ligation) Hysterectomy: No Insulin Pump: No Joint Replacement: No Oral Surgery: Yes Pacemaker: No Thoracic Surgery: Yes (CHEST PORT ) Tonsillectomy: Yes Other Surgery: Yes (RIGHT CHEST INFUSAPORT ) Social History Alcohol Use: No Tobacco Use: No Substance Use: No Allergies-Medications (Allergen,Severity, Reaction): Coded Allergies: Morphine (Verified Allergy, Severe, RASH, 11/09/16) *MDRO Multi-Drug Resistant Organism (Verified Adverse Reaction, Unknown, MRSA, 11/09/16) MRSA (blood) - 12/18/2004 MRSA PCR screen NEGATIVE 08/27/16 & 09/21/16 Cleared per Infection Control Reported Meds & Prescriptions Reported Meds & Active Scripts Active Lortab (Hydrocodone-Acetaminophen) 10-325 Mg Tab 1 Tab PO Q4H PRN Reported Folic Acid 400 Mcg Tab 400 Mcg PO DAILY Review of Systems Except as stated in HPI: all other systems reviewed are Neg General / Constitutional: No: Fever, Chills HENT: No: Sore Throat, Congestion, Neck Pain Cardiovascular: No: Chest Pain or Discomfort Respiratory: No: Shortness of Breath Gastrointestinal: No: Abdominal Pain Genitourinary: No: Flank Pain Musculoskeletal: Positive: Myalgias, Arthralgias, Pain Skin: No Rash Neurologic: No: Weakness Psychiatric: No: Anxiety Hematologic/Lymphatic: No: Lymph Node Enlargement Physical Exam Narrative GENERAL: Well-developed well-nourished female in no acute distress no respiratory distress SKIN: Warm and dry. HEAD: Normocephalic. EYES: No scleral icterus. No injection or drainage. NECK: Supple, trachea midline. No JVD or lymphadenopathy. CARDIOVASCULAR: Regular rate and rhythm without murmurs, gallops, or rubs. Chest wall: Osjubq-c-Gufr/no redness tenderness or induration RESPIRATORY: Breath sounds equal bilaterally. No accessory muscle use. GASTROINTESTINAL: Abdomen soft, non-tender, nondistended. MUSCULOSKELETAL: No cyanosis, or edema. BACK: Nontender without obvious deformity. No CVA tenderness. Data Data Last Documented VS Vital Signs Date Time Temp Pulse Resp B/P Pulse Ox O2 Delivery O2 Flow Rate FiO2 11/09/16 06:45 18 11/09/16 06:21 72 105/61 95 Room Air 11/09/16 02:42 98.8 Orders Basic Metabolic Panel (Bmp) (11/09/16 03:26) Complete Blood Count With Diff (11/09/16 03:26) Retic Count (11/09/16 03:26) Chest, Single Ap (11/09/16 03:26) Ecg Monitoring (11/09/16 03:26) Iv Access Insert/Monitor (11/09/16 03:26) Oximetry (11/09/16 03:26) Ketorolac Inj (Toradol Inj) (11/09/16 03:30) Ondansetron Inj (Zofran Inj) (11/09/16 03:30) Sodium Chloride 0.9% Flush (Ns Flush) (11/09/16 03:30) Sodium Chlor 0.9% 1000 Ml Inj (Ns 1000 M (11/09/16 03:26) Hydromorphone Pf Inj (Dilaudid Pf Inj) (11/09/16 03:30) Diphenhydramine Inj (Benadryl Inj) (11/09/16 03:30) Hydromorphone Pf Inj (Dilaudid Pf Inj) (11/09/16 06:15) Heparin Central Flush (Heparin Central F (11/09/16 09:00) Diphenhydramine Inj (Benadryl Inj) (11/09/16 06:30) Heparin Central Flush (Heparin Central F (11/09/16 06:45) Labs Laboratory Tests Test 11/09/16 04:02 White Blood Count 12.9 TH/MM3 Red Blood Count 2.59 MIL/MM3 Hemoglobin 8.1 GM/DL Hematocrit 21.7 % Mean Corpuscular Volume 84.0 FL Mean Corpuscular Hemoglobin 31.3 PG Mean Corpuscular Hemoglobin 37.2 % Concent Red Cell Distribution Width 21.4 % Platelet Count 335 TH/MM3 Mean Platelet Volume 8.1 FL Neutrophils (%) (Auto) 55.6 % Lymphocytes (%) (Auto) 32.8 % Monocytes (%) (Auto) 8.3 % Eosinophils (%) (Auto) 2.2 % Basophils (%) (Auto) 1.1 % Neutrophils # (Auto) 7.2 TH/MM3 Lymphocytes # (Auto) 4.2 TH/MM3 Monocytes # (Auto) 1.1 TH/MM3 Eosinophils # (Auto) 0.3 TH/MM3 Basophils # (Auto) 0.1 TH/MM3 CBC Comment AUTO DIFF Differential Total Cells 100 Counted Neutrophils % (Manual) 54 % Band Neutrophils % 2 % Lymphocytes % 31 % Monocytes % 8 % Eosinophils % 4 % Basophils % 1 % Neutrophils # (Manual) 7.2 TH/MM3 Nucleated Red Blood Cells 5 /100 WBC Differential Comment FINAL DIFF MANUAL Platelet Estimate NORMAL Platelet Morphology Comment NORMAL Sickle Cells 2+ Target Cells 1+ Reticulocyte Count 12.1 % Absolute Reticulocyte Count 312.4 MIL/L Sodium Level 136 MEQ/L Potassium Level 3.7 MEQ/L Chloride Level 104 MEQ/L Carbon Dioxide Level 27.9 MEQ/L Anion Gap 4 MEQ/L Blood Urea Nitrogen 9 MG/DL Creatinine 0.49 MG/DL Estimat Glomerular Filtration 176 ML/MIN Rate Random Glucose 90 MG/DL Calcium Level 8.6 MG/DL [facility] Medical Decision Making Medical Screen Exam Complete: Yes Emergency Medical Condition: Yes Medical Record Reviewed: Yes Interpretation(s) Last Impressions Chest X-Ray 11/09/16 0326 Signed Impressions: Service Date/Time: Wednesday, November 09, 2016 03:38 - CONCLUSION: Normal examination. Right subclavian Xgtnop-c-Cvhj catheter Balbir Oneill MD CBC & BMP Diagram 11/09/16 04:02 Vital Signs Date Time Temp Pulse Resp B/P Pulse Ox O2 Delivery O2 Flow Rate FiO2 11/09/16 06:21 72 18 105/61 95 Room Air 11/09/16 06:20 95 Room Air 11/09/16 02:53 18 100 11/09/16 02:42 98.8 94 112/64 100 Differential Diagnosis Sickle cell anemia, vaso-occlusive crisis, pneumonia, ACS, UTI, dehydration Narrative Course Port was accessed IV fluids administered along with Dilaudid Benadryl and Zofran ; specimens collected and sent for resulting Diagnosis Primary Impression: Sickle cell anemia Qualified Code: D57.00 - Hb-SS disease with crisis Additional Impression: Sickle cell pain crisis Referrals: Primary Care Physician 2 days Patient Instructions: Narcotic given in the ED, General Instructions Additional Instructions: Continue current medications as presently prescribed Follow-up with your primary care provider Return to the emergency department for any concerns or change in condition Take acetaminophen as needed for fever 100.4F or greater Med/Other Pt SpecificInfo: No Change to Meds Disposition: 01 DISCHARGE HOME Condition: Stable Halina Jiang MD Nov 09, 2016 06:26
[2016-11-09] MEDS ORDERED: diphenhydrAMINE HCL 50 MG/ML VIAL IV PUSH ONE (06:30)
[2016-11-09 06:45] VITALS: RESP 18
== END 2016-11-09 06:47 | disposition home or self-care (01) ==
LOC: NEPC 02:39
DX: D57.00 Hb-SS disease with crisis, unspecified (principal); R52 Pain, unspecified
CPT/HCPCS: 71010; 80048; 85007; 85027; 85044; 96361; 96374; 96375; 96376; 99284; J1170; J1200; J1642; J1885; J2405; J7030

== ENCOUNTER 2016-11-23 04:16 | Emergency (ER) | payer OTHER ==
[~2016-11-23] VITALS: Ht 160 cm; Wt 55.0 kg
[~2016-11-23 04:16] MED LIST changes: +FOLI400T PO
[2016-11-23 04:24] VITALS: BP 117/65; PULSE 84; RESP 12; O2SAT 100
[2016-11-23] MEDS ORDERED: SODIUM CHLOR 0.9% 1000 ML INJ 1,000 ML IV ONE (04:26)
[2016-11-23 04:28] LABS: MEAN CORPUSCULAR HGB CONC 36.9 % (32.0-36.0)
[2016-11-23] MEDS ORDERED: SODIUM CHLORIDE 0.9% FLUSH 10 ML FLUSH IVF PRN ×2 (04:30)
[2016-11-23] MEDS ORDERED: HYDROmorphone HCL 2 MG TAB PO ONE (04:30)
[2016-11-23] MEDS ORDERED: diphenhydrAMINE HCL 50 MG CAP PO ONE (04:30)
[2016-11-23] MEDS ORDERED: ONDANSETRON HCL 4 MG/2 ML VIAL IV PUSH ONE (04:45)
--- NOTE | 2016-11-23 04:58 | PD ---
HPI Chief Complaint: Sickle Cell Time Seen by Provider: 04:23 Travel History International Travel<30 days: No Contact w/Intl Traveler<30days: No Traveled to known affect area: No History of Present Illness HPI 31-year-old female with history of sickle cell well-known to myself in our ER here with complaint of increasing crisis. Patient states that she got her menstrual period yesterday and since her pain has increased. Describes pain in the neck, primarily in the back, and less so in the extremities. This is typical for her pain crises. Patient denies any chest pain, shortness of breath , cough, chest congestion or fever. No urinary symptoms. Patient is followed by hematology, who prescribes her methadone. Patient has been compliant with this. PFSH Past Medical History Hx Anticoagulant Therapy: No Anemia: Yes Arthritis: No Asthma: No Autoimmune Disease: No Blood Disorders: No Anxiety: No Depression: No Cancer: No Cardiovascular Problems: No Chemotherapy: No Chest Pain: Yes Congestive Heart Failure: No COPD: No Cerebrovascular Accident: No Diabetes: No Diminished Hearing: No Endocrine: No Gastrointestinal Disorders: Yes (GALLSTONES) GERD: No Genitourinary: Yes Headaches: Yes Hiatal Hernia: No Immune Disorder: No Implanted Vascular Access Dvce: Yes (RIGHT CHEST ) Insomnia: Yes Kidney Stones: Yes Musculoskeletal: No Neurologic: No Psychiatric: No Reproductive: No Respiratory: No Immunizations Current: Yes Migraines: No Pneumonia: Yes Radiation Therapy: No Renal Failure: No Seizures: No Sickle Cell Disease: Yes Thyroid Disease: No Ulcer: No PNEUMOCCOCAL Vaccine (Year): 2 ?: Not : 2 Para: 1 Miscarriage: 1 : 0 Tubal Ligation: Yes Past Surgical History Abdominal Surgery: Yes (hector) AICD: No Arteriovenous Shunt: No Body Medical Devices: MEDPORT Cardiac Surgery: No Section: Yes Cholecystectomy: Yes Ear Surgery: No Endocrine Surgery: No Eye Surgery: No Genitourinary Surgery: No Gynecologic Surgery: Yes (tubal ligation) Hysterectomy: No Insulin Pump: No Joint Replacement: No Oral Surgery: Yes Pacemaker: No Thoracic Surgery: Yes (CHEST PORT ) Tonsillectomy: Yes Other Surgery: Yes (RIGHT CHEST INFUSAPORT ) Social History Alcohol Use: No Tobacco Use: No Substance Use: No Allergies-Medications (Allergen,Severity, Reaction): Coded Allergies: Morphine (Verified Allergy, Severe, RASH, 11/23/16) *MDRO Multi-Drug Resistant Organism (Verified Adverse Reaction, Unknown, MRSA, 11/23/16) MRSA (blood) - 12/18/2004 MRSA PCR screen NEGATIVE 08/27/16 & 09/21/16 Cleared per Infection Control Reported Meds & Prescriptions Reported Meds & Active Scripts Active Lortab (Hydrocodone-Acetaminophen) 10-325 Mg Tab 1 Tab PO Q4H PRN Reported Folic Acid 400 Mcg Tab 400 Mcg PO DAILY Review of Systems Except as stated in HPI: all other systems reviewed are Neg Physical Exam Narrative GENERAL: Well-appearing female in no acute distress SKIN: Focused skin assessment warm/dry. HEAD: Normocephalic. EYES: No scleral icterus. No injection or drainage. ENT: Mucous membranes pink and moist. NECK: Supple CARDIOVASCULAR: Regular rate and rhythm. No murmur appreciated. RESPIRATORY: No accessory muscle use. Clear to auscultation. Breath sounds equal bilaterally. GASTROINTESTINAL: Abdomen soft, non-tender, nondistended. MUSCULOSKELETAL: No obvious deformities. No edema. NEUROLOGICAL: Awake and alert. Motor grossly within normal limits. Normal speech. PSYCHIATRIC: Appropriate mood and affect; insight and judgment normal. Data Data Last Documented VS Vital Signs Date Time Temp Pulse Resp B/P Pulse Ox O2 Delivery O2 Flow Rate FiO2 11/23/16 05:40 99.1 11/23/16 05:19 18 98 11/23/16 04:24 84 117/65 Room Air Orders Complete Blood Count With Diff (11/23/16 04:26) Ecg Monitoring (11/23/16 04:26) Iv Access Insert/Monitor (11/23/16 04:26) Oximetry (11/23/16 04:26) Sodium Chloride 0.9% Flush (Ns Flush) (11/23/16 04:30) Sodium Chlor 0.9% 1000 Ml Inj (Ns 1000 M (11/23/16 04:26) Heparin Central Flush (Heparin Central F (11/23/16 04:30) Sodium Chloride 0.9% Flush (Ns Flush) (11/23/16 04:30) Heparin Central Flush (Heparin Central F (11/23/16 04:30) Hydromorphone (Dilaudid) (11/23/16 04:30) Diphenhydramine (Benadryl) (11/23/16 04:30) Ondansetron Inj (Zofran Inj) (11/23/16 04:45) Ketorolac Inj (Toradol Inj) (11/23/16 05:15) Diphenhydramine Inj (Benadryl Inj) (11/23/16 05:15) Labs Laboratory Tests Test 11/23/16 05:05 White Blood Count 10.4 TH/MM3 Red Blood Count 2.65 MIL/MM3 Hemoglobin 8.4 GM/DL Hematocrit 22.7 % Mean Corpuscular Volume 85.8 FL Mean Corpuscular Hemoglobin 31.6 PG Mean Corpuscular Hemoglobin 36.9 % Concent Red Cell Distribution Width 21.9 % Platelet Count 380 TH/MM3 Mean Platelet Volume 7.7 FL Neutrophils (%) (Auto) 33.8 % Lymphocytes (%) (Auto) 51.0 % Monocytes (%) (Auto) 10.5 % Eosinophils (%) (Auto) 3.2 % Basophils (%) (Auto) 1.5 % Neutrophils # (Auto) 3.5 TH/MM3 Lymphocytes # (Auto) 5.3 TH/MM3 Monocytes # (Auto) 1.1 TH/MM3 Eosinophils # (Auto) 0.3 TH/MM3 Basophils # (Auto) 0.2 TH/MM3 CBC Comment AUTO DIFF MDM Medical Decision Making Medical Screen Exam Complete: Yes Emergency Medical Condition: Yes Medical Record Reviewed: Yes Differential Diagnosis 31-year-old female with history of sickle cell here with complaint of pain in the neck, back 2 days since starting her menstrual period. Differential includes acute on chronic pain syndrome, sickle cell crisis, dehydration, elect to light abnormality, and less likely acute chest syndrome. Narrative Course Patient placed on monitor, her port was accessed and blood obtained. She was given 1 L normal saline bolus, 4 mg Zofran. I had ordered 2 mg Dilaudid and 50 mg Benadryl orally, but patient refused requesting Toradol and Benadryl IV instead. She was given 30 mg Toradol, 50 mg Benadryl IV. CBC notable for hemoglobin 8.4, stable for patient. Diagnosis Primary Impression: Pain syndrome, chronic Referrals: Primary Care Physician as needed Additional Instructions: Home analgesics as prescribed. Follow-up with ent physician as needed. Med/Other Pt SpecificInfo: No Change to Meds Disposition: 01 DISCHARGE HOME Condition: Stable Theresa Casillas MD Nov 23, 2016 04:58
[2016-11-23] MEDS ORDERED: KETOROLAC TROMETHAMINE 30 MG/ML (IVP) VIAL IVP ONE (05:15)
[2016-11-23] MEDS ORDERED: diphenhydrAMINE HCL 50 MG/ML VIAL IV PUSH ONE (05:15)
[2016-11-23 05:19] VITALS: RESP 18; O2SAT 98
[2016-11-23 05:22] LABS: AUTOMATED NEUTROPHIL # 3.5 TH/MM3 (1.8-7.7); BASOPHIL # 0.2 TH/MM3 (0-0.2); BASOPHIL % 1.5 % (0.0-2.0); EOSINOPHIL # 0.3 TH/MM3 (0-0.4); EOSINOPHIL % 3.2 % (0.0-4.0); HEMATOCRIT 22.7 % (35.0-46.0); HEMO FLAGS AUTO DIFF; LYMPHOCYTE # 5.3 TH/MM3 (1.0-4.8); MEAN CELL VOLUME 85.8 FL (80.0-100.0); MEAN CORPUSCULAR HEMOGLOBIN 31.6 PG (27.0-34.0); MONO % 10.5 % (0.0-8.0); NEUT % 33.8 % (16.0-70.0); PLATELET COUNT 380 TH/MM3 (150-450); RED BLOOD COUNT 2.65 MIL/MM3 (4.00-5.30); RED CELL DISTRIBUTION WIDTH 21.9 % (11.6-17.2); WHITE BLOOD COUNT 10.4 TH/MM3 (4.0-11.0)
[2016-11-23 05:40] VITALS: TEMP 99.1
[2016-11-23 06:13] LABS: BANDS 1 % (0-6); BASOPHILS 2 % (0-2); CORRECTED NUCLEATED RBC 8 /100 WBC (0-0); EOSINOPHILS 2 % (0-4); NEUTROPHIL # MANUAL DIFF 3.2 TH/MM3 (1.8-7.7); PLATELET ESTIMATE SMEAR NORMAL (NORMAL); PLATELET MORPHOLOGY NORMAL (NORMAL); POLYS (SEG NEUTROPHILS) 30 % (16-70); SCAN/DIFF FINAL DIFF MANUAL; SMUDGE CELLS PRESENT PRESENT; WBC DIFF SAMPLE 100
[2016-11-23 06:14] LABS: SICKLE CELLS 1+ (NORMAL)
== END 2016-11-23 06:30 | disposition home or self-care (01) ==
LOC: NEPE 04:16
DX: G89.4 Chronic pain syndrome (principal); D57.1 Sickle-cell disease without crisis
CPT/HCPCS: 85007; 85027; 96361; 96374; 96375; 99284; J1200; J1642; J1885; J7030

== ENCOUNTER 2016-11-28 02:49 | Emergency (ER) | payer OTHER ==
[2016-11-28 02:59] VITALS: BP 114/61; PULSE 92; RESP 16; TEMP 99; O2SAT 95
[2016-11-28] MEDS ORDERED: SODIUM CHLOR 0.9% 1000 ML INJ 1,000 ML IV ONE ×2 (03:56→04:30)
[2016-11-28 03:58] LABS: MEAN CORPUSCULAR HGB CONC 37.5 % (32.0-36.0)
[2016-11-28] MEDS ORDERED: SODIUM CHLORIDE 0.9% FLUSH 10 ML FLUSH IVF PRN (04:00)
--- NOTE | 2016-11-28 04:26 | PD ---
HPI Chief Complaint: Sickle Cell Time Seen by Provider: 04:11 Travel History International Travel<30 days: No Contact w/Intl Traveler<30days: No Traveled to known affect area: No History of Present Illness HPI Patient is a 31-year-old female with history of sickle cell disease, who is well -known to the emergency room, presents to the Emergency room with complaints of sickle cell crisis. Patient reports that she has been having her typical flair up of sickle cell pain with neck, back and leg pain. Patient reports that symptoms are typical for her sickle cell crisis. Denies chest pain/sob. Denies cough/congestion. Reports that she is followed by chief ultrasound technologist and was told to come to ER for breakthrough pain as needed. PFSH Past Medical History Hx Anticoagulant Therapy: No Anemia: Yes Arthritis: No Asthma: No Autoimmune Disease: No Blood Disorders: No Anxiety: No Depression: No Cancer: No Cardiovascular Problems: No Chemotherapy: No Chest Pain: Yes Congestive Heart Failure: No COPD: No Cerebrovascular Accident: No Diabetes: No Diminished Hearing: No Endocrine: No Gastrointestinal Disorders: Yes (GALLSTONES) GERD: No Genitourinary: Yes Headaches: Yes Hiatal Hernia: No Immune Disorder: No Implanted Vascular Access Dvce: Yes (RIGHT CHEST ) Insomnia: Yes Kidney Stones: Yes Musculoskeletal: No Neurologic: No Psychiatric: No Reproductive: No Respiratory: No Immunizations Current: Yes Migraines: No Pneumonia: Yes Radiation Therapy: No Renal Failure: No Seizures: No Sickle Cell Disease: Yes Thyroid Disease: No Ulcer: No PNEUMOCCOCAL Vaccine (Year): 2 ?: Not LMP: 11/26/16 : 2 Para: 1 Miscarriage: 1 : 0 Tubal Ligation: Yes Past Surgical History Abdominal Surgery: Yes (hector) AICD: No Arteriovenous Shunt: No Body Medical Devices: MEDPORT Cardiac Surgery: No Section: Yes Cholecystectomy: Yes Ear Surgery: No Endocrine Surgery: No Eye Surgery: No Genitourinary Surgery: No Gynecologic Surgery: Yes (tubal ligation) Hysterectomy: No Insulin Pump: No Joint Replacement: No Oral Surgery: Yes Pacemaker: No Thoracic Surgery: Yes (CHEST PORT ) Tonsillectomy: Yes Other Surgery: Yes (RIGHT CHEST INFUSAPORT ) Social History Alcohol Use: No Tobacco Use: No Substance Use: No Allergies-Medications (Allergen,Severity, Reaction): Coded Allergies: Morphine (Verified Allergy, Severe, RASH, 11/23/16) *MDRO Multi-Drug Resistant Organism (Verified Adverse Reaction, Unknown, MRSA, 11/23/16) MRSA (blood) - 12/18/2004 MRSA PCR screen NEGATIVE 08/27/16 & 09/21/16 Cleared per Infection Control Reported Meds & Prescriptions Reported Meds & Active Scripts Active Lortab (Hydrocodone-Acetaminophen) 10-325 Mg Tab 1 Tab PO Q4H PRN Reported Folic Acid 400 Mcg Tab 400 Mcg PO DAILY Review of Systems General / Constitutional: No: Fever Eyes: No: Visual changes HENT: No: Headaches Cardiovascular: No: Chest Pain or Discomfort Respiratory: No: Shortness of Breath Gastrointestinal: No: Abdominal Pain Genitourinary: No: Dysuria Musculoskeletal: Positive: Pain (back pain and leg pain) Skin: No Rash Neurologic: No: Weakness Psychiatric: No: Depression Endocrine: No: Polydipsia Hematologic/Lymphatic: No: Easy Bruising Physical Exam Narrative GENERAL: nad, nontoxic SKIN: Focused skin assessment warm/dry. HEAD: Atraumatic. Normocephalic. EYES: Pupils equal and round. No scleral icterus. No injection or drainage. ENT: No nasal bleeding or discharge. Mucous membranes pink and moist. NECK: Trachea midline. No JVD. CARDIOVASCULAR: Regular rate and rhythm. No murmur appreciated. RESPIRATORY: No accessory muscle use. Clear to auscultation. Breath sounds equal bilaterally. GASTROINTESTINAL: Abdomen soft, non-tender, nondistended. Hepatic and splenic margins not palpable. MUSCULOSKELETAL: No obvious deformities. No clubbing. No cyanosis. No edema. NEUROLOGICAL: Awake and alert. No obvious cranial nerve deficits. Motor grossly within normal limits. Normal speech. PSYCHIATRIC: Appropriate mood and affect; insight and judgment normal. Data Data Last Documented VS Vital Signs Date Time Temp Pulse Resp B/P Pulse Ox O2 Delivery O2 Flow Rate FiO2 11/28/16 04:30 76 16 100 Room Air 11/28/16 02:59 99.0 114/61 Orders Basic Metabolic Panel (Bmp) (11/28/16 03:56) Complete Blood Count With Diff (11/28/16 03:56) Retic Count (11/28/16 03:56) Urinalysis - C+S If Indicated (11/28/16 03:56) Ecg Monitoring (11/28/16 03:56) Iv Access Insert/Monitor (11/28/16 03:56) Oximetry (11/28/16 03:56) Sodium Chloride 0.9% Flush (Ns Flush) (11/28/16 04:00) Sodium Chlor 0.9% 1000 Ml Inj (Ns 1000 M (11/28/16 03:56) Hydromorphone Pf Inj (Dilaudid Pf Inj) (11/28/16 04:30) Diphenhydramine Inj (Benadryl Inj) (11/28/16 04:30) Sodium Chlor 0.9% 1000 Ml Inj (Ns 1000 M (11/28/16 04:30) Labs Laboratory Tests Test 11/28/16 11/28/16 04:15 04:30 White Blood Count 9.9 TH/MM3 Red Blood Count 2.44 MIL/MM3 Hemoglobin 7.6 GM/DL Hematocrit 20.3 % Mean Corpuscular Volume 83.4 FL Mean Corpuscular Hemoglobin 31.3 PG Mean Corpuscular Hemoglobin 37.5 % Concent Red Cell Distribution Width 22.0 % Platelet Count 340 TH/MM3 Mean Platelet Volume 8.0 FL Neutrophils (%) (Auto) 46.6 % Lymphocytes (%) (Auto) 38.6 % Monocytes (%) (Auto) 10.6 % Eosinophils (%) (Auto) 3.1 % Basophils (%) (Auto) 1.1 % Neutrophils # (Auto) 4.6 TH/MM3 Lymphocytes # (Auto) 3.8 TH/MM3 Monocytes # (Auto) 1.0 TH/MM3 Eosinophils # (Auto) 0.3 TH/MM3 Basophils # (Auto) 0.1 TH/MM3 CBC Comment AUTO DIFF Differential Total Cells 100 Counted Neutrophils % (Manual) 50 % Band Neutrophils % 1 % Lymphocytes % 40 % Monocytes % 5 % Eosinophils % 1 % Basophils % 1 % Neutrophils # (Manual) 5.2 TH/MM3 Myelocytes 1 % Promyelocytes 1 % Nucleated Red Blood Cells 6 /100 WBC Differential Comment FINAL DIFF MANUAL Platelet Estimate NORMAL Platelet Morphology Comment NORMAL Polychromasia 3.2 % Sickle Cells 2+ Reticulocyte Count 7.5 % Absolute Reticulocyte Count 183.5 MIL/L Sodium Level 141 MEQ/L Potassium Level 4.2 MEQ/L Chloride Level 105 MEQ/L Carbon Dioxide Level 28.5 MEQ/L Anion Gap 8 MEQ/L Blood Urea Nitrogen 10 MG/DL Creatinine 0.49 MG/DL Estimat Glomerular Filtration 176 ML/MIN Rate Random Glucose 85 MG/DL Calcium Level 8.3 MG/DL Urine Color YELLOW Urine Turbidity HAZY Urine pH 6.0 Urine Specific Macy 1.011 Urine Protein NEG mg/dL Urine Glucose (UA) NEG mg/dL Urine Ketones NEG mg/dL Urine Occult Blood NEG Urine Nitrite NEG Urine Bilirubin NEG Urine Urobilinogen 4.0 MG/DL Urine Leukocyte Esterase NEG Urine RBC LESS THAN 1 /hpf Urine WBC 2 /hpf Urine Squamous Epithelial 1 /hpf Cells Urine Amorphous Sediment RARE Urine Mucus FEW /lpf Microscopic Urinalysis Comment CULT NOT INDICATED MDM Medical Decision Making Medical Screen Exam Complete: Yes Emergency Medical Condition: Yes Interpretation(s) Vital Signs Date Time Temp Pulse Resp B/P Pulse Ox O2 Delivery O2 Flow Rate FiO2 11/28/16 02:59 99.0 92 16 114/61 95 Room Air Differential Diagnosis Differential includes sickle cell crisis, chronic pain, dehydration, electrolyte abnormality, anemia Narrative Course Patient is a 31-year-old female who presents to emergency room with complaints of sickle cell crisis. Patient was placed on a cardiac monitor technician upon arrival to ER. Her port was accessed and blood was obtained. Labs including retic count ordered. Plan to give ivf, dilaudid and benadryl. Will monitor patient. Vital Signs Date Time Temp Pulse Resp B/P Pulse Ox O2 Delivery O2 Flow Rate FiO2 11/28/16 04:30 76 16 100 Room Air 11/28/16 02:59 99.0 92 16 114/61 95 Room Air Laboratory Tests Test 11/28/16 11/28/16 04:15 04:30 White Blood Count 9.9 TH/MM3 (4.0-11.0) Red Blood Count 2.44 MIL/MM3 (4.00-5.30) Hemoglobin 7.6 GM/DL (11.6-15.3) Hematocrit 20.3 % (35.0-46.0) Mean Corpuscular Volume 83.4 FL (80.0-100.0) Mean Corpuscular Hemoglobin 31.3 PG (27.0-34.0) Mean Corpuscular Hemoglobin 37.5 % Concent (32.0-36.0) Red Cell Distribution Width 22.0 % (11.6-17.2) Platelet Count 340 TH/MM3 (150-450) Mean Platelet Volume 8.0 FL (7.0-11.0) Neutrophils (%) (Auto) 46.6 % (16.0-70.0) Lymphocytes (%) (Auto) 38.6 % (9.0-44.0) Monocytes (%) (Auto) 10.6 % (0.0-8.0) Eosinophils (%) (Auto) 3.1 % (0.0-4.0) Basophils (%) (Auto) 1.1 % (0.0-2.0) Neutrophils # (Auto) 4.6 TH/MM3 (1.8-7.7) Lymphocytes # (Auto) 3.8 TH/MM3 (1.0-4.8) Monocytes # (Auto) 1.0 TH/MM3 (0-0.9) Eosinophils # (Auto) 0.3 TH/MM3 (0-0.4) Basophils # (Auto) 0.1 TH/MM3 (0-0.2) CBC Comment AUTO DIFF Differential Total Cells 100 Counted Neutrophils % (Manual) 50 % (16-70) Band Neutrophils % 1 % (0-6) Lymphocytes % 40 % (9-44) Monocytes % 5 % (0-8) Eosinophils % 1 % (0-4) Basophils % 1 % (0-2) Neutrophils # (Manual) 5.2 TH/MM3 (1.8-7.7) Myelocytes 1 % (0-0) Promyelocytes 1 % (0-0) Nucleated Red Blood Cells 6 /100 WBC (0-0) Differential Comment FINAL DIFF MANUAL Platelet Estimate NORMAL (NORMAL) Platelet Morphology Comment NORMAL (NORMAL) Polychromasia 3.2 % (0.0-1.9) Sickle Cells 2+ (NORMAL) Reticulocyte Count 7.5 % (0.4-3.0) Absolute Reticulocyte Count 183.5 MIL/L (20.0-150.0) Urine Color YELLOW (YELLW/STRAW) Urine Turbidity HAZY (CLEAR) Urine pH 6.0 (5.0-8.5) Urine Specific Macy 1.011 (1.002-1.035) Urine Protein NEG mg/dL (NEG-TRACE) Urine Glucose (UA) NEG mg/dL (NEG) Urine Ketones NEG mg/dL (NEG) Urine Occult Blood NEG (NEG) Urine Nitrite NEG (NEG) Urine Bilirubin NEG (NEG) Urine Urobilinogen 4.0 MG/DL (LESS THAN 2.0) Urine Leukocyte Esterase NEG (NEG) Urine RBC LESS THAN 1 /hpf (0-3) Urine WBC 2 /hpf (0-5) Urine Squamous Epithelial 1 /hpf (0-5) Cells Urine Amorphous Sediment RARE Urine Mucus FEW /lpf (OCC) Microscopic Urinalysis Comment CULT NOT INDICATED Patient re-evaluated, patient reports that she is feeling much better. patient requesting to be discharged to home. I reviewed all labs and studies with patient in detail. patient will follow up with her chief ultrasound technologist as well as pcp , she will return to ER as needed Diagnosis Primary Impression: Pain syndrome, chronic Additional Impression: Anemia Qualified Code: D64.9 - Anemia, unspecified type Patient Instructions: General Instructions, Narcotic given in the ED Additional Instructions: Please follow up with your primary care doctor Return to ER as needed Return to ER if symptoms return Please follow up with your chief ultrasound technologist Disposition: 01 DISCHARGE HOME Condition: Stable Sheri Montoya DO Nov 28, 2016 04:26
[2016-11-28 04:30] VITALS: PULSE 76; RESP 16; O2SAT 100
[2016-11-28] MEDS ORDERED: diphenhydrAMINE HCL 50 MG/ML VIAL IV ONE (04:30)
[2016-11-28] MEDS ORDERED: HYDROmorphone HCL PF 1 MG/ML VIAL IVS ONE (04:30)
[2016-11-28 04:43] LABS: AUTOMATED NEUTROPHIL # 4.6 TH/MM3 (1.8-7.7); BASOPHIL # 0.1 TH/MM3 (0-0.2); BASOPHIL % 1.1 % (0.0-2.0); EOSINOPHIL # 0.3 TH/MM3 (0-0.4); EOSINOPHIL % 3.1 % (0.0-4.0); LYMPH % 38.6 % (9.0-44.0); LYMPHOCYTE # 3.8 TH/MM3 (1.0-4.8); MEAN CELL VOLUME 83.4 FL (80.0-100.0); MEAN CORPUSCULAR HEMOGLOBIN 31.3 PG (27.0-34.0); MONO % 10.6 % (0.0-8.0); NEUT % 46.6 % (16.0-70.0); PLATELET COUNT 340 TH/MM3 (150-450); RED BLOOD COUNT 2.44 MIL/MM3 (4.00-5.30); RETIC % 7.5 % (0.4-3.0); WHITE BLOOD COUNT 9.9 TH/MM3 (4.0-11.0)
[2016-11-28 04:44] LABS: HEMO FLAGS AUTO DIFF; REVIEW FLAG AUTO DIFF
[2016-11-28 04:45] LABS: HEMATOCRIT 20.3 % (35.0-46.0)
[2016-11-28 04:46] LABS: BLOOD, URINE NEG (NEG); COMMENT (UR) CULT NOT INDICATED; CULTURE IF INDICATED CULT NOT INDICATED; GLUCOSE,URINE NEG (NEG); KETONE, URINE NEG (NEG); MUCUS URINE FEW /lpf (OCC); NITRITE,URINE NEG (NEG); SQUAMOUS EPITHELIAL CELL URINE 1 /hpf (0-5); URINE COLOR YELLOW (YELLW/STRAW)
[2016-11-28 05:13] LABS: BANDS 1 % (0-6); BASOPHILS 1 % (0-2); CORRECTED NUCLEATED RBC 6 /100 WBC (0-0); EOSINOPHILS 1 % (0-4); MYELOCYTES 1 % (0-0); NEUTROPHIL # MANUAL DIFF 5.2 TH/MM3 (1.8-7.7); POLYS (SEG NEUTROPHILS) 50 % (16-70); PROMYELOCYTES 1 % (0-0); SCAN/DIFF FINAL DIFF MANUAL; WBC DIFF SAMPLE 100
[2016-11-28 05:16] LABS: PLATELET ESTIMATE SMEAR NORMAL (NORMAL); PLATELET MORPHOLOGY NORMAL (NORMAL); SICKLE CELLS 2+ (NORMAL)
[2016-11-28 05:18] LABS: POLYCHROMASIA 3.2 % (0.0-1.9)
[2016-11-28 05:34] LABS: BICARBONATE 28.5 MEQ/L (21.0-32.0)
[2016-11-28 05:35] LABS: POTASSIUM 4.2 MEQ/L (3.5-5.1)
== END 2016-11-28 05:49 | disposition home or self-care (01) ==
LOC: NEPC 02:49
DX: D57.00 Hb-SS disease with crisis, unspecified (principal)
CPT/HCPCS: 80048; 81001; 85007; 85027; 85044; 96374; 96375; 99284; J1170; J1200; J7030

== ENCOUNTER 2016-12-02 02:15 | Emergency (ER) | payer OTHER ==
[2016-12-02 02:17] VITALS: BP 128/58; PULSE 68; RESP 16; TEMP 98.9; O2SAT 96
[2016-12-02] MEDS ORDERED: SODIUM CHLOR 0.9% 1000 ML INJ 1,000 ML IV ONE (04:18)
[2016-12-02 04:21] LABS: MEAN CORPUSCULAR HGB CONC 36.1 % (32.0-36.0)
[2016-12-02] MEDS ORDERED: SODIUM CHLORIDE 0.9% FLUSH 10 ML FLUSH IVF PRN (04:30)
[2016-12-02] MEDS ORDERED: HYDROmorphone HCL PF 1 MG/ML VIAL IVS ONE (04:30)
[2016-12-02] MEDS ORDERED: diphenhydrAMINE HCL 50 MG/ML VIAL IV PUSH ONE (04:30)
[2016-12-02 04:56] LABS: HEMATOCRIT 23.7 % (35.0-46.0); MEAN CELL VOLUME 85.4 FL (80.0-100.0); MEAN CORPUSCULAR HEMOGLOBIN 30.8 PG (27.0-34.0); PLATELET COUNT 374 TH/MM3 (150-450); RED BLOOD COUNT 2.77 MIL/MM3 (4.00-5.30); RED CELL DISTRIBUTION WIDTH 22.6 % (11.6-17.2); RETIC % 10.9 % (0.4-3.0); WHITE BLOOD COUNT 11.3 TH/MM3 (4.0-11.0)
--- NOTE | 2016-12-02 04:56 | PD ---
HPI Chief Complaint: Sickle Cell Time Seen by Provider: 04:10 Travel History International Travel<30 days: No Contact w/Intl Traveler<30days: No Traveled to known affect area: No History of Present Illness HPI 31yo F with PMH of sickle cell disease presents to the ED with c/o sickle cell crisis. States she has bilateral arm pain, back pain and chest pain and feels like her sickle cell crisis. Chest pain is throbbing, midsternal and not associated with any sob. Denies any fever, n/v, abdominal pain, focal weakness or numbness. Pt is a well known patient to our ED and comes often for this. States her twisting operator is Dr. Rivas and she took lortab for pain which didnt help. States she has appointment with Dr. Rivas this Friday. PFSH Past Medical History Hx Anticoagulant Therapy: No Anemia: Yes Arthritis: No Asthma: No Autoimmune Disease: No Blood Disorders: No Anxiety: No Depression: No Cancer: No Cardiovascular Problems: No Chemotherapy: No Chest Pain: Yes Congestive Heart Failure: No COPD: No Cerebrovascular Accident: No Diabetes: No Diminished Hearing: No Endocrine: No Gastrointestinal Disorders: Yes (GALLSTONES) GERD: No Genitourinary: Yes Headaches: Yes Hiatal Hernia: No Immune Disorder: No Implanted Vascular Access Dvce: Yes (RIGHT CHEST ) Insomnia: Yes Kidney Stones: Yes Musculoskeletal: No Neurologic: No Psychiatric: No Reproductive: No Respiratory: No Immunizations Current: Yes Migraines: No Pneumonia: Yes Radiation Therapy: No Renal Failure: No Seizures: No Sickle Cell Disease: Yes Thyroid Disease: No Ulcer: No PNEUMOCCOCAL Vaccine (Year): 2 ?: Not LMP: currently : 2 Para: 1 Miscarriage: 1 : 0 Tubal Ligation: Yes Past Surgical History Abdominal Surgery: Yes (hector) AICD: No Arteriovenous Shunt: No Body Medical Devices: MEDPORT Cardiac Surgery: No Section: Yes Cholecystectomy: Yes Ear Surgery: No Endocrine Surgery: No Eye Surgery: No Genitourinary Surgery: No Gynecologic Surgery: Yes (tubal ligation) Hysterectomy: No Insulin Pump: No Joint Replacement: No Oral Surgery: Yes Pacemaker: No Thoracic Surgery: Yes (CHEST PORT ) Tonsillectomy: Yes Other Surgery: Yes (RIGHT CHEST INFUSAPORT ) Social History Alcohol Use: No Tobacco Use: No Substance Use: No Allergies-Medications (Allergen,Severity, Reaction): Coded Allergies: Morphine (Verified Allergy, Severe, RASH, 11/23/16) *MDRO Multi-Drug Resistant Organism (Verified Adverse Reaction, Unknown, MRSA, 11/23/16) MRSA (blood) - 12/18/2004 MRSA PCR screen NEGATIVE 08/27/16 & 09/21/16 Cleared per Infection Control Reported Meds & Prescriptions Reported Meds & Active Scripts Active Lortab (Hydrocodone-Acetaminophen) 10-325 Mg Tab 1 Tab PO Q4H PRN Reported Folic Acid 400 Mcg Tab 400 Mcg PO DAILY Review of Systems Except as stated in HPI: all other systems reviewed are Neg Physical Exam Narrative GENERAL: 31yo F in mild distress. SKIN: Focused skin assessment warm/dry. HEAD: Atraumatic. Normocephalic. EYES: Pupils equal and round. No scleral icterus. No injection or drainage. ENT: No nasal bleeding or discharge. Mucous membranes pink and moist. NECK: Trachea midline. No JVD. CARDIOVASCULAR: Regular rate and rhythm. No murmur appreciated. CHEST WALL: +TTP midsternal region. RESPIRATORY: No accessory muscle use. Clear to auscultation. Breath sounds equal bilaterally. GASTROINTESTINAL: Abdomen soft, non-tender, nondistended. MUSCULOSKELETAL: No obvious deformities. No clubbing. No cyanosis. No edema. NEUROLOGICAL: Awake and alert. No obvious cranial nerve deficits. Motor grossly within normal limits. Normal speech. PSYCHIATRIC: Appropriate mood and affect; insight and judgment normal. Data Data Last Documented VS Vital Signs Date Time Temp Pulse Resp B/P Pulse Ox O2 Delivery O2 Flow Rate FiO2 12/02/16 02:17 98.9 68 16 128/58 96 Room Air Orders Basic Metabolic Panel (Bmp) (12/02/16 04:18) Complete Blood Count With Diff (12/02/16 04:18) Retic Count (12/02/16 04:18) Chest, Single Ap (12/02/16 04:18) Ecg Monitoring (12/02/16 04:18) Iv Access Insert/Monitor (12/02/16 04:18) Oximetry (12/02/16 04:18) Sodium Chloride 0.9% Flush (Ns Flush) (12/02/16 04:30) Sodium Chlor 0.9% 1000 Ml Inj (Ns 1000 M (12/02/16 04:18) Hydromorphone Pf Inj (Dilaudid Pf Inj) (12/02/16 04:30) Diphenhydramine Inj (Benadryl Inj) (12/02/16 04:30) Troponin I (12/02/16 04:18) Electrocardiogram (12/02/16 ) Labs Laboratory Tests Test 12/02/16 04:30 White Blood Count 11.3 TH/MM3 Red Blood Count 2.77 MIL/MM3 Hemoglobin 8.5 GM/DL Hematocrit 23.7 % Mean Corpuscular Volume 85.4 FL Mean Corpuscular Hemoglobin 30.8 PG Mean Corpuscular Hemoglobin 36.1 % Concent Red Cell Distribution Width 22.6 % Platelet Count 374 TH/MM3 Mean Platelet Volume 8.5 FL Neutrophils (%) (Auto) % Lymphocytes (%) (Auto) % Monocytes (%) (Auto) % Eosinophils (%) (Auto) % Basophils (%) (Auto) % Neutrophils # (Auto) TH/MM3 Lymphocytes # (Auto) TH/MM3 Monocytes # (Auto) TH/MM3 Eosinophils # (Auto) TH/MM3 Basophils # (Auto) TH/MM3 CBC Comment AUTO DIFF Reticulocyte Count 10.9 % Absolute Reticulocyte Count 301.6 MIL/L Sodium Level 140 MEQ/L Potassium Level 3.7 MEQ/L Chloride Level 105 MEQ/L Carbon Dioxide Level 27.2 MEQ/L Anion Gap 8 MEQ/L Blood Urea Nitrogen 8 MG/DL Creatinine 0.52 MG/DL Estimat Glomerular Filtration 164 ML/MIN Rate Random Glucose 90 MG/DL Calcium Level 8.6 MG/DL Troponin I LESS THAN 0.02 NG/ML MDM Medical Decision Making Medical Screen Exam Complete: Yes Emergency Medical Condition: Yes Interpretation(s) EKG: NSR 75bpm. Normal axis. TWI V3. Differential Diagnosis Vasoocclusive crisis vs. acute chest syndrome vs. malingering Narrative Course 31yo F with sickle cell disease here with complaint of her usual crisis. Chest pain is very atypical and states that it is part of her crisis. Do not think this is cardiac. Labs reviewed, WBC 11.3. H/H 8.5/23.7. Troponin negative. Reticulocyte count elevated at 10.9. CXR showed no acute cardiopulmonary abnormality. Pt given NS IVF, dilaudid 1mg IV, and diphenhydramine 25mg IV. Pt reevaluated at bedside and pain has improved. Instructed pt to follow up with her twisting operator. Diagnosis Primary Impression: Sickle cell pain crisis Patient Instructions: General Instructions Departure Forms: Tests/Procedures Additional Instructions: Please follow up with your twisting operator in 1-2 days at your appointment. Return to the ED if your symptoms worsen. Med/Other Pt SpecificInfo: No Change to Meds Disposition: 01 DISCHARGE HOME Condition: Stable Allison Hernandez DO Dec 02, 2016 04:56
[2016-12-02 05:00] LABS: HEMO FLAGS AUTO DIFF
[2016-12-02 05:01] LABS: REVIEW FLAG AUTO DIFF
--- NOTE | 2016-12-02 05:04 | RADRPT ---
EXAM DATE/TIME: 12/02/2016 04:39 [facility] COMPARISON: CHEST SINGLE AP, November 05, 2016, 4:06. CHEST SINGLE AP, November 09, 2016, 3:38. INDICATIONS : Chest pain. MEDICAL HISTORY : Sickle Cell disease. SURGICAL HISTORY : None. ENCOUNTER: Initial ACUITY: 1 day PAIN SCORE: 0/10 LOCATION: Bilateral chest FINDINGS: Portable AP view of the chest demonstrates a normal-sized cardiac silhouette. Right chest wall Infuse -a-Port is present. Lungs are underinflated. No pleural effusion or pneumothorax is identified. No de finite consolidation is seen. CONCLUSION: Underinflated examination. No acute cardiopulmonary abnormality is identified. Michael Elslworth MD on December 02, 2016 at 5:01 Board Certified Radiologist. This report was verified electronically.
[2016-12-02 05:17] LABS: ANION GAP 8 MEQ/L (5-15); BICARBONATE 27.2 MEQ/L (21.0-32.0); BLOOD UREA NITROGEN 8 MG/DL (7-18); CHLORIDE 105 MEQ/L (98-107); GLOMERULAR FILTRATION RATE 164 ML/MIN (>89); POTASSIUM 3.7 MEQ/L (3.5-5.1); SODIUM (NA) 140 MEQ/L (136-145)
[2016-12-02 06:28] LABS: BANDS 1 % (0-6); CORRECTED NUCLEATED RBC 5 /100 WBC (0-0); EOSINOPHILS 1 % (0-4); NEUTROPHIL # MANUAL DIFF 5.5 TH/MM3 (1.8-7.7); POLYS (SEG NEUTROPHILS) 48 % (16-70); WBC DIFF SAMPLE 100
[2016-12-02 06:30] LABS: SICKLE CELLS 2+ (NORMAL)
[2016-12-02 06:32] LABS: OVALOCYTES 1+ (NORMAL); PLATELET ESTIMATE SMEAR NORMAL (NORMAL); PLATELET MORPHOLOGY NORMAL (NORMAL); SCAN/DIFF FINAL DIFF MANUAL
[2016-12-02 06:48] VITALS: BP 132/64
--- NOTE | 2016-12-02 08:38 | EKG ---
Date Performed: 12/02/2016 Time Performed: 05:24:20 PTAGE: 31 years EKG: Sinus rhythm NONSPECIFIC T-WAVE ABNORMALITY BORDERLINE ECG PREVIOUS TRACING : 11/05/2016 03.45 Compared to previous tracing, nonspecific ST abnormality no longer present. DOCTOR: Solis [place] Interpretating Date/Time 12/02/2016 08:37:37
== END 2016-12-02 06:55 | disposition home or self-care (01) ==
LOC: NEPC 02:15
DX: D57.00 Hb-SS disease with crisis, unspecified (principal); R07.89 Other chest pain; M79.602 Pain in left arm; M79.601 Pain in right arm; M54.9 Dorsalgia, unspecified; R94.31 Abnormal electrocardiogram [ECG] [EKG]; Z88.5 Allergy status to narcotic agent; Z79.899 Other long term (current) drug therapy
CPT/HCPCS: 71010; 80048; 84484; 85007; 85027; 85044; 93005; 96361; 96374; 96375; 99285; J1170; J1200; J1642; J7030

== ENCOUNTER 2016-12-04 04:08 | Emergency (ER) | payer OTHER ==
[~2016-12-04] VITALS: Ht 152.4 cm; Wt 58.0 kg
[2016-12-04 04:10] VITALS: BP 127/71; PULSE 93; RESP 16; TEMP 99.1; O2SAT 94
[2016-12-04 05:40] VITALS: BP 108/66; PULSE 95; RESP 16; O2SAT 97
[2016-12-04] MEDS ORDERED: SODIUM CHLOR 0.9% 1000 ML INJ 1,000 ML IV ONE (05:57)
[2016-12-04 05:59] LABS: MEAN CORPUSCULAR HGB CONC 36.4 % (32.0-36.0)
[2016-12-04] MEDS ORDERED: SODIUM CHLORIDE 0.9% FLUSH 10 ML FLUSH IVF PRN (06:00)
[2016-12-04 06:03] VITALS: O2SAT 98
--- NOTE | 2016-12-04 06:05 | PD ---
HPI Chief Complaint: Sickle Cell Time Seen by Provider: 05:57 Travel History International Travel<30 days: No Contact w/Intl Traveler<30days: No Traveled to known affect area: No History of Present Illness HPI The patient is a 31 year old female who presents to the [facility] emergency department with a history of dizziness, chest pain, back pain, bilateral knee pain similar to her prior pain crises that began 2 days ago. She reports that she typically will get a pain crisis with her menstrual cycle. Her menstrual cycle began on Friday, 2 days ago. She is taking Lortab 10mg at home. She has had n/v x2. She was seen in the emergency department yesterday for treatment. She has a f/u with her supervisor heading scheduled for Friday. On review of systems, she denies any recent fevers, cough, congestion, neck pain, shortness of breath, abdominal pain, diarrhea, urinary symptoms, or neurologic symptoms. PFSH Past Medical History Narrative Medical The patient's past medical history is significant for sickle cell anemia with recurrent pain crises, history of chest pain with pain crises, history of headaches Hx Anticoagulant Therapy: No Anemia: Yes Arthritis: No Asthma: No Autoimmune Disease: No Blood Disorders: No Anxiety: No Depression: No Cancer: No Cardiovascular Problems: No Chemotherapy: No Chest Pain: Yes Congestive Heart Failure: No COPD: No Cerebrovascular Accident: No Diabetes: No Diminished Hearing: No Endocrine: No Gastrointestinal Disorders: Yes (GALLSTONES) GERD: No Genitourinary: Yes Headaches: Yes Hiatal Hernia: No Immune Disorder: No Implanted Vascular Access Dvce: Yes (RIGHT CHEST ) Insomnia: Yes Kidney Stones: Yes Musculoskeletal: No Neurologic: No Psychiatric: No Reproductive: No Respiratory: No Immunizations Current: Yes Migraines: No Pneumonia: Yes Radiation Therapy: No Renal Failure: No Seizures: No Sickle Cell Disease: Yes Thyroid Disease: No Ulcer: No PNEUMOCCOCAL Vaccine (Year): 2 ?: Not LMP: CURRENT : 2 Para: 1 Miscarriage: 1 : 0 Tubal Ligation: Yes Past Surgical History Narrative Surgical The patient's past surgical history is significant for Jeaeax-j-Bnpv placement, cholecystectomy, Abdominal Surgery: Yes (hector) AICD: No Arteriovenous Shunt: No Body Medical Devices: MEDPORT Cardiac Surgery: No Section: Yes Cholecystectomy: Yes Ear Surgery: No Endocrine Surgery: No Eye Surgery: No Genitourinary Surgery: No Gynecologic Surgery: Yes (tubal ligation) Hysterectomy: No Insulin Pump: No Joint Replacement: No Oral Surgery: Yes Pacemaker: No Thoracic Surgery: Yes (CHEST PORT ) Tonsillectomy: Yes Other Surgery: Yes (RIGHT CHEST INFUSAPORT ) Social History Alcohol Use: No Tobacco Use: No Substance Use: No Allergies-Medications (Allergen,Severity, Reaction): Coded Allergies: Morphine (Verified Allergy, Severe, RASH, 12/04/16) *MDRO Multi-Drug Resistant Organism (Verified Adverse Reaction, Unknown, MRSA, 12/04/16) MRSA (blood) - 12/18/2004 MRSA PCR screen NEGATIVE 08/27/16 & 09/21/16 Cleared per Infection Control Reported Meds & Prescriptions Reported Meds & Active Scripts Active Lortab (Hydrocodone-Acetaminophen) 10-325 Mg Tab 1 Tab PO Q4H PRN Reported Folic Acid 400 Mcg Tab 400 Mcg PO DAILY Review of Systems Except as stated in HPI: all other systems reviewed are Neg General / Constitutional: No: Fever Eyes: No: Visual changes HENT: No: Headaches Cardiovascular: Positive: Chest Pain or Discomfort (chest wall pain) Respiratory: No: Shortness of Breath Gastrointestinal: Positive: Nausea, Vomiting, No: Diarrhea, Abdominal Pain, Changes in Bowel Habits, Indigestion, Loss of Appetite Genitourinary: No: Dysuria Musculoskeletal: Positive: Myalgias, Arthralgias, Pain Skin: No Rash Neurologic: No: Weakness Psychiatric: No: Depression Endocrine: No: Polydipsia Hematologic/Lymphatic: No: Easy Bruising Physical Exam Narrative General: The patient is a well-developed well-nourished female in no acute distress. Head and Neck exam: Head is normocephalic atraumatic. Eyes: EOMI, pupils are equal round and reactive to light. Nose: Midline septum with pink mucous membranes Mouth: Dentition unremarkable. Moist mucus membranes. Posterior oropharynx is not erythematous. No tonsillar hypertrophy. Uvula midline. Airway patent. Neck: No palpable lymphadenopathy. No nuchal rigidity. No thyromegaly. Cardiovascular: Regular rate and rhythm without murmurs, gallops, or rubs. Lungs: Clear to auscultation bilaterally. No wheezes, rhonchi, or rales. Abdomen: Soft, without tenderness to palpation in all 4 quadrants of the abdomen. No guarding, rebound, or rigidity. Normal bowel sounds are audible. No tenderness on palpation of McBurney's point. Negative [place] sign. Extremities: No clubbing, cyanosis, or edema. 2+ pulses in all 4 extremities. No calf tenderness on palpation. The patient reports having bilateral knee pain, however there is no effusion, no erythema. No loss of range of motion. No crepitus. No ballotable patella. No ligament laxity. Back: No spinous process tenderness to palpation. She reports having bilateral CVA tenderness on palpation. Neurologic Exam: Grossly nonfocal. Skin Exam: No rash noted. Intact skin that is warm and dry. Data Data Last Documented VS Vital Signs Date Time Temp Pulse Resp B/P Pulse Ox O2 Delivery O2 Flow Rate FiO2 12/04/16 06:03 98 Room Air 12/04/16 05:40 95 16 108/66 12/04/16 04:10 99.1 Orders Complete Blood Count With Diff (12/04/16 05:57) Comprehensive Metabolic Panel (12/04/16 05:57) Retic Count (12/04/16 05:57) Urinalysis - C+S If Indicated (12/04/16 05:57) Ecg Monitoring (12/04/16 05:57) Iv Access Insert/Monitor (12/04/16 05:57) Oximetry (12/04/16 05:57) Oxygen Administration (12/04/16 05:57) Sodium Chloride 0.9% Flush (Ns Flush) (12/04/16 06:00) Sodium Chlor 0.9% 1000 Ml Inj (Ns 1000 M (12/04/16 05:57) Hydromorphone Pf Inj (Dilaudid Pf Inj) (12/04/16 06:45) Ondansetron Inj (Zofran Inj) (12/04/16 06:45) Diphenhydramine Inj (Benadryl Inj) (12/04/16 06:45) Ketorolac Inj (Toradol Inj) (12/04/16 07:15) Potassium Chloride Eff (K-Lyte Cl Eff) (12/04/16 08:00) Labs Laboratory Tests Test 7/26/17 7/26/17 06:15 07:26 White Blood Count 13.5 TH/MM3 Red Blood Count 2.68 MIL/MM3 Hemoglobin 8.3 GM/DL Hematocrit 22.7 % Mean Corpuscular Volume 84.8 FL Mean Corpuscular Hemoglobin 30.9 PG Mean Corpuscular Hemoglobin 36.4 % Concent Red Cell Distribution Width 23.0 % Platelet Count 367 TH/MM3 Mean Platelet Volume 7.3 FL Neutrophils (%) (Auto) 42.4 % Lymphocytes (%) (Auto) 43.5 % Monocytes (%) (Auto) 10.2 % Eosinophils (%) (Auto) 2.4 % Basophils (%) (Auto) 1.5 % Neutrophils # (Auto) 5.7 TH/MM3 Lymphocytes # (Auto) 5.9 TH/MM3 Monocytes # (Auto) 1.4 TH/MM3 Eosinophils # (Auto) 0.3 TH/MM3 Basophils # (Auto) 0.2 TH/MM3 CBC Comment AUTO DIFF Differential Total Cells 100 Counted Neutrophils % (Manual) 49 % Lymphocytes % 44 % Monocytes % 5 % Eosinophils % 1 % Basophils % 1 % Neutrophils # (Manual) 6.6 TH/MM3 Nucleated Red Blood Cells 5 /100 WBC Differential Comment FINAL DIFF MANUAL Platelet Estimate NORMAL Platelet Morphology Comment NORMAL Polychromasia 2.4 % Sickle Cells 2+ Ovalocytes 1+ Reticulocyte Count 8.4 % Absolute Reticulocyte Count 225.8 MIL/L Sodium Level 140 MEQ/L Potassium Level 3.2 MEQ/L Chloride Level 106 MEQ/L Carbon Dioxide Level 26.5 MEQ/L Anion Gap 8 MEQ/L Blood Urea Nitrogen 5 MG/DL Creatinine 0.49 MG/DL Estimat Glomerular Filtration 176 ML/MIN Rate Random Glucose 103 MG/DL Calcium Level 8.4 MG/DL Total Bilirubin 2.0 MG/DL Aspartate Amino Transf 64 U/L (AST/SGOT) Alanine Aminotransferase 24 U/L (ALT/SGPT) Alkaline Phosphatase 107 U/L Total Protein 7.9 GM/DL Albumin 3.4 GM/DL Urine Color YELLOW Urine Turbidity HAZY Urine pH 5.5 Urine Specific [place] 1.010 Urine Protein NEG mg/dL Urine Glucose (UA) NEG mg/dL Urine Ketones NEG mg/dL Urine Occult Blood TRACE Urine Nitrite NEG Urine Bilirubin NEG Urine Urobilinogen 4.0 MG/DL Urine Leukocyte Esterase NEG Urine RBC 1 /hpf Urine WBC 1 /hpf Urine Squamous Epithelial 2 /hpf Cells Urine Bacteria RARE /hpf Urine Mucus FEW /lpf Microscopic Urinalysis Comment CULT NOT INDICATED MDM Medical Decision Making Medical Screen Exam Complete: Yes Emergency Medical Condition: Yes Medical Record Reviewed: Yes Differential Diagnosis Sickle cell pain crisis, versus pyelonephritis, versus musculoskeletal strain, versus arthritis Narrative Course During the course of the patients emergency department visit, the patients history, examination, and differential diagnosis were reviewed with the patient. The patient had IV access obtained and blood work sent for analysis. The patient was placed on a surveillance monitor with oximetry and blood pressure monitoring. The patient was initially provided hydromorphone 1 mg IV, Benadryl 25 mg IV, Zofran 4 mg IV along with normal saline 1 L IV fluid bolus. The patient was given additional pain relief 20 minutes later with Toradol 15 mg IV. The patients laboratory studies were reviewed and remarkable for white count of 13.5, hemoglobin 8.3, platelets 367 with 10.2 monocytes, reticulocyte count 8.4, CMP is remarkable for a potassium of 3.2 which will be supplemented orally , BUN 5, creatinine 0.49, calcium 8.4, total bilirubin 2.0, AST 64. Urinalysis shows no acute abnormality. The patient is again instructed regarding the importance of following up with her supervisor heading as soon as possible. The patient is resting comfortably and feels better, is alert and in no distress. The patients results and examination findings were discussed with the patient. The repeat examination is unremarkable and benign. The history, exam, diagnostic testing, and current condition do not suggest any significant pathology to warrant further testing, continued ED treatment, admission, or surgical evaluation at this point. The vital signs have been stable. The patient does not have uncontrollable pain, intractable vomiting, or other significant symptoms. The patient's condition is stable and appropriate for discharge. The patient will pursue further outpatient evaluation with a primary care physician or other designated or consulting physician as indicated in the discharge instructions. The patient expressed understanding and was agreeable with this plan. Diagnosis Primary Impression: Sickle cell pain crisis Referrals: supervisor heading 1 day Patient Instructions: Sickle Cell Crisis (ED), General Instructions Med/Other Pt SpecificInfo: No Change to Meds Disposition: 01 DISCHARGE HOME Condition: Stable Mignon Lin MD Dec 04, 2016 06:05
[2016-12-04 06:32] LABS: AUTOMATED NEUTROPHIL # 5.7 TH/MM3 (1.8-7.7); BASOPHIL # 0.2 TH/MM3 (0-0.2); BASOPHIL % 1.5 % (0.0-2.0); EOSINOPHIL # 0.3 TH/MM3 (0-0.4); EOSINOPHIL % 2.4 % (0.0-4.0); HEMATOCRIT 22.7 % (35.0-46.0); LYMPH % 43.5 % (9.0-44.0); LYMPHOCYTE # 5.9 TH/MM3 (1.0-4.8); MEAN CELL VOLUME 84.8 FL (80.0-100.0); MEAN CORPUSCULAR HEMOGLOBIN 30.9 PG (27.0-34.0); MONO % 10.2 % (0.0-8.0); NEUT % 42.4 % (16.0-70.0); PLATELET COUNT 367 TH/MM3 (150-450); RED BLOOD COUNT 2.68 MIL/MM3 (4.00-5.30); RETIC % 8.4 % (0.4-3.0); WHITE BLOOD COUNT 13.5 TH/MM3 (4.0-11.0)
[2016-12-04 06:33] LABS: HEMO FLAGS AUTO DIFF
[2016-12-04 06:34] LABS: REVIEW FLAG AUTO DIFF
[2016-12-04] MEDS ORDERED: diphenhydrAMINE HCL 50 MG/ML VIAL IV PUSH ONE (06:45)
[2016-12-04] MEDS ORDERED: HYDROmorphone HCL PF 1 MG/ML VIAL IV PUSH ONE (06:45)
[2016-12-04] MEDS ORDERED: ONDANSETRON HCL 4 MG/2 ML VIAL IV PUSH ONE (06:45)
[2016-12-04 07:03] LABS: ALKALINE PHOSPHATASE 107 U/L (45-117); ALT (GPT) 24 U/L (10-53); ANION GAP 8 MEQ/L (5-15); AST (GOT) 64 U/L (15-37); BICARBONATE 26.5 MEQ/L (21.0-32.0); BLOOD UREA NITROGEN 5 MG/DL (7-18); CHLORIDE 106 MEQ/L (98-107); GLOMERULAR FILTRATION RATE 176 ML/MIN (>89); POTASSIUM 3.2 MEQ/L (3.5-5.1); SODIUM (NA) 140 MEQ/L (136-145)
[2016-12-04] MEDS ORDERED: KETOROLAC TROMETHAMINE 30 MG/ML (IVP) VIAL IV PUSH ONE (07:15)
[2016-12-04 07:53] LABS: BASOPHILS 1 % (0-2); CORRECTED NUCLEATED RBC 5 /100 WBC (0-0); EOSINOPHILS 1 % (0-4); NEUTROPHIL # MANUAL DIFF 6.6 TH/MM3 (1.8-7.7); OVALOCYTES 1+ (NORMAL); PLATELET ESTIMATE SMEAR NORMAL (NORMAL); PLATELET MORPHOLOGY NORMAL (NORMAL); POLYCHROMASIA 2.4 % (0.0-1.9); POLYS (SEG NEUTROPHILS) 49 % (16-70); SICKLE CELLS 2+ (NORMAL); WBC DIFF SAMPLE 100
[2016-12-04 07:54] LABS: SCAN/DIFF FINAL DIFF MANUAL
[2016-12-04] MEDS ORDERED: POTASSIUM CHLORIDE 25 MEQ EFFERVESCENT TAB PO ONE (08:00)
[2016-12-04 08:24] LABS: BACTERIA, URINE RARE /hpf; BLOOD, URINE TRACE (NEG); COMMENT (UR) CULT NOT INDICATED; CULTURE IF INDICATED CULT NOT INDICATED; GLUCOSE,URINE NEG (NEG); KETONE, URINE NEG (NEG); MUCUS URINE FEW /lpf (OCC); NITRITE,URINE NEG (NEG); PH, URINE 5.5 (5.0-8.5); SQUAMOUS EPITHELIAL CELL URINE 2 /hpf (0-5); URINE COLOR YELLOW (YELLW/STRAW)
[2016-12-04] MEDS ORDERED: HYDROmorphone HCL PF 1 MG/ML VIAL IVS ONE (08:45)
== END 2016-12-04 09:02 | disposition home or self-care (01) ==
LOC: NEPE 04:08
DX: D57.00 Hb-SS disease with crisis, unspecified (principal); R11.2 Nausea with vomiting, unspecified; R42 Dizziness and giddiness; R07.9 Chest pain, unspecified; M54.9 Dorsalgia, unspecified; M25.562 Pain in left knee; M25.561 Pain in right knee; D64.9 Anemia, unspecified; Z79.899 Other long term (current) drug therapy
CPT/HCPCS: 80053; 81001; 85007; 85027; 85044; 96361; 96374; 96375; 96376; 99284; J1170; J1200; J1642; J1885; J2405; J7030

== ENCOUNTER 2016-12-13 04:08 | Emergency (ER) | payer OTHER ==
[2016-12-13 04:10] VITALS: BP 124/64; PULSE 92; RESP 16; TEMP 98.7; O2SAT 95
[2016-12-13] MEDS ORDERED: SODIUM CHLOR 0.9% 1000 ML INJ 1,000 ML IV ONE ×2 (04:36→05:42)
[2016-12-13] MEDS ORDERED: ONDANSETRON HCL 4 MG/2 ML VIAL IVP ONE ×2 (04:45→05:45)
[2016-12-13] MEDS ORDERED: HYDROmorphone HCL PF 1 MG/ML VIAL IVS ONE ×2 (04:45→05:45)
[2016-12-13] MEDS ORDERED: SODIUM CHLORIDE 0.9% FLUSH 10 ML FLUSH IVF PRN ×2 (04:45)
[2016-12-13] MEDS ORDERED: diphenhydrAMINE HCL 50 MG/ML VIAL IV ONE ×2 (04:45→05:45)
--- NOTE | 2016-12-13 04:56 | PD ---
HPI Chief Complaint: Sickle Cell Time Seen by Provider: 04:36 Travel History International Travel<30 days: No Contact w/Intl Traveler<30days: No Traveled to known affect area: No History of Present Illness HPI 31-year-old female history of sickle cell disease arrives complaining of chest pain consistent with a typical sickle cell pain crisis. Her pain crises 10 to accompany menstruation, which is currently affecting the patient. No dyspnea. Pain is constant. She started hydroxyurea about 2 weeks ago. She denies fever. PFSH Past Medical History Hx Anticoagulant Therapy: No Anemia: Yes Arthritis: No Asthma: No Autoimmune Disease: No Blood Disorders: No Anxiety: No Depression: No Cancer: No Cardiovascular Problems: No Chemotherapy: No Chest Pain: Yes Congestive Heart Failure: No COPD: No Cerebrovascular Accident: No Diabetes: No Diminished Hearing: No Endocrine: No Gastrointestinal Disorders: Yes (GALLSTONES) GERD: No Genitourinary: Yes Headaches: Yes Hiatal Hernia: No Immune Disorder: No Implanted Vascular Access Dvce: Yes (RIGHT CHEST ) Insomnia: Yes Kidney Stones: Yes Musculoskeletal: No Neurologic: No Psychiatric: No Reproductive: No Respiratory: No Immunizations Current: Yes Migraines: No Pneumonia: Yes Radiation Therapy: No Renal Failure: No Seizures: No Sickle Cell Disease: Yes Thyroid Disease: No Ulcer: No Tetanus Vaccination: < 5 Years Influenza Vaccination: Yes PNEUMOCCOCAL Vaccine (Year): 2 ?: Unknown : 2 Para: 1 Miscarriage: 1 : 0 Tubal Ligation: Yes Past Surgical History Abdominal Surgery: Yes (hector) AICD: No Arteriovenous Shunt: No Body Medical Devices: MEDPORT Cardiac Surgery: No Section: Yes Cholecystectomy: Yes Ear Surgery: No Endocrine Surgery: No Eye Surgery: No Genitourinary Surgery: No Gynecologic Surgery: Yes (tubal ligation) Hysterectomy: No Insulin Pump: No Joint Replacement: No Oral Surgery: Yes Pacemaker: No Thoracic Surgery: Yes (CHEST PORT ) Tonsillectomy: Yes Other Surgery: Yes (RIGHT CHEST INFUSAPORT ) Social History Alcohol Use: No Tobacco Use: No Substance Use: No Allergies-Medications (Allergen,Severity, Reaction): Coded Allergies: Morphine (Verified Allergy, Severe, RASH, 12/04/16) *MDRO Multi-Drug Resistant Organism (Verified Adverse Reaction, Unknown, MRSA, 12/04/16) MRSA (blood) - 12/18/2004 MRSA PCR screen NEGATIVE 08/27/16 & 09/21/16 Cleared per Infection Control Reported Meds & Prescriptions Reported Meds & Active Scripts Active Lortab (Hydrocodone-Acetaminophen) 10-325 Mg Tab 1 Tab PO Q4H PRN Reported Folic Acid 400 Mcg Tab 400 Mcg PO DAILY Review of Systems Except as stated in HPI: all other systems reviewed are Neg General / Constitutional: No: Fever Physical Exam Narrative GENERAL: 31-year-old female well-nourished well-developed mild distress secondary to pain SKIN: Focused skin assessment warm/dry. HEAD: Atraumatic. Normocephalic. EYES: Pupils equal and round. No scleral icterus. No injection or drainage. ENT: No nasal bleeding or discharge. Mucous membranes pink and moist. NECK: Trachea midline. No JVD. CARDIOVASCULAR: Regular rate and rhythm. No murmur appreciated. RESPIRATORY: No accessory muscle use. Clear to auscultation. Breath sounds equal bilaterally. GASTROINTESTINAL: Abdomen soft, non-tender, nondistended. Hepatic and splenic margins not palpable. MUSCULOSKELETAL: No obvious deformities. No clubbing. No cyanosis. No edema. NEUROLOGICAL: Awake and alert. No obvious cranial nerve deficits. Motor grossly within normal limits. Normal speech. PSYCHIATRIC: Appropriate mood and affect; insight and judgment normal. Data Data Last Documented VS Vital Signs Date Time Temp Pulse Resp B/P Pulse Ox O2 Delivery O2 Flow Rate FiO2 12/13/16 06:02 16 12/13/16 04:10 98.7 92 124/64 95 Room Air Vital signs reviewed Orders Ecg Monitoring (12/13/16 04:36) Iv Access Insert/Monitor (12/13/16 04:36) Oximetry (12/13/16 04:36) Ondansetron Inj (Zofran Inj) (12/13/16 04:45) Sodium Chloride 0.9% Flush (Ns Flush) (12/13/16 04:45) Sodium Chlor 0.9% 1000 Ml Inj (Ns 1000 M (12/13/16 04:36) Hydromorphone Pf Inj (Dilaudid Pf Inj) (12/13/16 04:45) Diphenhydramine Inj (Benadryl Inj) (12/13/16 04:45) Heparin Central Flush (Heparin Central F (12/13/16 04:45) Sodium Chloride 0.9% Flush (Ns Flush) (12/13/16 04:45) Heparin Central Flush (Heparin Central F (12/13/16 04:45) Ondansetron Inj (Zofran Inj) (12/13/16 05:45) Sodium Chlor 0.9% 1000 Ml Inj (Ns 1000 M (12/13/16 05:42) Hydromorphone Pf Inj (Dilaudid Pf Inj) (12/13/16 05:45) Diphenhydramine Inj (Benadryl Inj) (12/13/16 05:45) MDM Medical Decision Making Medical Screen Exam Complete: Yes Emergency Medical Condition: Yes Medical Record Reviewed: Yes Differential Diagnosis avascular necrosis, anemia, sick cell anemia, PE Narrative Course Having come to know Miss Ching quite well over the past 3 years we can see that today's presentation is a fairly mild sickle cell crisis fairly typical for her. As such routine blood work considered reasonably safely deferable. Patient will maintain a low threshold to return if necessary. As of 6:24 AM the Patient's pain has been controlled and she is ready for discharge home. Diagnosis Primary Impression: Sickle cell disease Qualified Code: D57.00 - Hb-SS disease with crisis Referrals: [facility] call for appointment Additional Instructions: You have a choice when it comes to health care, and we are glad that you chose [facility]. Hopefully, we have met your expectations on today's visit. You are welcome to return to [facility] at any time, as we are committed to meeting the health care needs of our community. Med/Other Pt SpecificInfo: No Change to Meds Disposition: 01 DISCHARGE HOME Condition: Mac Crespo MD Dec 13, 2016 04:56
[2016-12-13 06:02] VITALS: RESP 16
== END 2016-12-13 06:35 | disposition home or self-care (01) ==
LOC: NEPC 04:08
DX: D57.00 Hb-SS disease with crisis, unspecified (principal)
CPT/HCPCS: 96361; 96374; 96375; 96376; 99284; J1170; J1200; J1642; J2405; J7030

== ENCOUNTER 2016-12-19 02:26 | Emergency (ER) | payer OTHER ==
[~2016-12-19] VITALS: Ht 152.4 cm; Wt 58.0 kg
[2016-12-19 02:29] VITALS: BP 133/66; PULSE 93; RESP 16; TEMP 99; O2SAT 95
[2016-12-19 02:50] VITALS: RESP 18; O2SAT 97
[2016-12-19] MEDS ORDERED: SODIUM CHLOR 0.9% 1000 ML INJ 1,000 ML IV ONE (02:53)
[2016-12-19 02:56] LABS: MEAN CORPUSCULAR HGB CONC 36.2 % (32.0-36.0)
--- NOTE | 2016-12-19 02:58 | PD ---
HPI Chief Complaint: Sickle Cell Time Seen by Provider: 02:51 Travel History International Travel<30 days: No Contact w/Intl Traveler<30days: No Traveled to known affect area: No History of Present Illness HPI 31-year-old female with history of sickle cell disease, frequent visits to the emergency department for pain crisis, here for evaluation of chest pain, back pain, abdominal pain, bilateral knee and joint pains. Symptoms are typical for her sickle cell crisis. She also reports feeling nauseous and having a couple episodes of vomiting while at work today. She claims to have tried to call her auxiliary powerplant operator Dr. Rivas, however the office is closed. She is not sure if she is having any fevers. No dyspnea. She tried her Lortab at home without relief of symptoms. PFSH Past Medical History Hx Anticoagulant Therapy: No Anemia: Yes Arthritis: No Asthma: No Autoimmune Disease: No Blood Disorders: No Anxiety: No Depression: No Cancer: No Cardiovascular Problems: No Chemotherapy: No Chest Pain: Yes Congestive Heart Failure: No COPD: No Cerebrovascular Accident: No Diabetes: No Diminished Hearing: No Endocrine: No Gastrointestinal Disorders: Yes (GALLSTONES) GERD: No Genitourinary: Yes Headaches: Yes Hiatal Hernia: No Immune Disorder: No Implanted Vascular Access Dvce: Yes (RIGHT CHEST ) Insomnia: Yes Kidney Stones: Yes Musculoskeletal: No Neurologic: No Psychiatric: No Reproductive: No Respiratory: No Immunizations Current: Yes Migraines: No Pneumonia: Yes Radiation Therapy: No Renal Failure: No Seizures: No Sickle Cell Disease: Yes Thyroid Disease: No Ulcer: No PNEUMOCCOCAL Vaccine (Year): 2 ?: Not : 2 Para: 1 Miscarriage: 1 : 0 Tubal Ligation: Yes Past Surgical History Abdominal Surgery: Yes (hector) AICD: No Arteriovenous Shunt: No Body Medical Devices: MEDPORT Cardiac Surgery: No Section: Yes Cholecystectomy: Yes Ear Surgery: No Endocrine Surgery: No Eye Surgery: No Genitourinary Surgery: No Gynecologic Surgery: Yes (tubal ligation) Hysterectomy: No Insulin Pump: No Joint Replacement: No Oral Surgery: Yes Pacemaker: No Thoracic Surgery: Yes (CHEST PORT ) Tonsillectomy: Yes Other Surgery: Yes (RIGHT CHEST INFUSAPORT ) Social History Alcohol Use: No Tobacco Use: No Substance Use: No Allergies-Medications (Allergen,Severity, Reaction): Coded Allergies: Morphine (Verified Allergy, Severe, RASH, 8/10/17) *MDRO Multi-Drug Resistant Organism (Verified Adverse Reaction, Unknown, MRSA, 12/19/16) MRSA (blood) - 12/18/2004 MRSA PCR screen NEGATIVE 08/27/16 & 09/21/16 Cleared per Infection Control Reported Meds & Prescriptions Reported Meds & Active Scripts Active Lortab (Hydrocodone-Acetaminophen) 10-325 Mg Tab 1 Tab PO Q4H PRN Reported Folic Acid 400 Mcg Tab 400 Mcg PO DAILY Review of Systems Except as stated in HPI: all other systems reviewed are Neg Physical Exam Narrative GENERAL: Well-developed, well-nourished, awake, alert, no apparent distress, ambulated to and from the restroom without difficulty and without assistance. SKIN: Focused skin assessment warm/dry. No rash. HEAD: Atraumatic. Normocephalic. EYES: Pupils equal and round. No injection or drainage. ENT: Mucous membranes pink and moist. NECK: Trachea midline. No JVD. CARDIOVASCULAR: Regular rate and rhythm. RESPIRATORY: No accessory muscle use. Clear to auscultation. Breath sounds equal bilaterally. GASTROINTESTINAL: Abdomen soft, non-tender, nondistended. MUSCULOSKELETAL: No obvious deformities. No clubbing. No cyanosis. No edema. No swollen or warm joints. No dactylitis. NEUROLOGICAL: Awake and alert. No obvious cranial nerve deficits. Motor grossly within normal limits. Normal speech. PSYCHIATRIC: Appropriate mood and affect; insight and judgment normal. Data Data Last Documented VS Vital Signs Date Time Temp Pulse Resp B/P Pulse Ox O2 Delivery O2 Flow Rate FiO2 12/19/16 04:37 85 18 111/62 95 Room Air 12/19/16 02:29 99.0 Orders Complete Blood Count With Diff (12/19/16 02:53) Comprehensive Metabolic Panel (12/19/16 02:53) Retic Count (12/19/16 02:53) Ecg Monitoring (12/19/16 02:53) Iv Access Insert/Monitor (12/19/16 02:53) Oximetry (12/19/16 02:53) Ondansetron Inj (Zofran Inj) (12/19/16 03:00) Sodium Chloride 0.9% Flush (Ns Flush) (12/19/16 03:00) Sodium Chlor 0.9% 1000 Ml Inj (Ns 1000 M (12/19/16 02:53) Hydromorphone Pf Inj (Dilaudid Pf Inj) (12/19/16 03:00) Chest, Single Ap (12/19/16 ) Labs Laboratory Tests Test 12/19/16 03:10 White Blood Count 11.7 TH/MM3 Red Blood Count 2.59 MIL/MM3 Hemoglobin 7.9 GM/DL Hematocrit 21.9 % Mean Corpuscular Volume 84.3 FL Mean Corpuscular Hemoglobin 30.5 PG Mean Corpuscular Hemoglobin 36.2 % Concent Red Cell Distribution Width 23.7 % Platelet Count 329 TH/MM3 Mean Platelet Volume 7.6 FL Neutrophils (%) (Auto) 44.3 % Lymphocytes (%) (Auto) 42.5 % Monocytes (%) (Auto) 9.2 % Eosinophils (%) (Auto) 2.9 % Basophils (%) (Auto) 1.1 % Neutrophils # (Auto) 5.2 TH/MM3 Lymphocytes # (Auto) 5.0 TH/MM3 Monocytes # (Auto) 1.1 TH/MM3 Eosinophils # (Auto) 0.3 TH/MM3 Basophils # (Auto) 0.1 TH/MM3 CBC Comment AUTO DIFF Differential Total Cells 100 Counted Neutrophils % (Manual) 55 % Lymphocytes % 39 % Monocytes % 4 % Eosinophils % 2 % Neutrophils # (Manual) 6.4 TH/MM3 Nucleated Red Blood Cells 3 /100 WBC Differential Comment FINAL DIFF MANUAL Platelet Estimate NORMAL Platelet Morphology Comment NORMAL Polychromasia 6.5 % Sickle Cells 2+ [place] Bodies PRESENT Reticulocyte Count 10.7 % Absolute Reticulocyte Count 276.5 MIL/L Sodium Level 140 MEQ/L Potassium Level 3.6 MEQ/L Chloride Level 107 MEQ/L Carbon Dioxide Level 26.9 MEQ/L Anion Gap 6 MEQ/L Blood Urea Nitrogen 7 MG/DL Creatinine 0.46 MG/DL Estimat Glomerular Filtration 189 ML/MIN Rate Random Glucose 91 MG/DL Calcium Level 8.5 MG/DL Total Bilirubin 2.5 MG/DL Aspartate Amino Transf 60 U/L (AST/SGOT) Alanine Aminotransferase 17 U/L (ALT/SGPT) Alkaline Phosphatase 98 U/L Total Protein 8.1 GM/DL Albumin 3.4 GM/DL MDM Medical Decision Making Medical Screen Exam Complete: Yes Emergency Medical Condition: Yes Medical Record Reviewed: Yes Differential Diagnosis Sickle cell crisis, acute chest syndrome, anemia, drug-seeking Narrative Course Initial vital signs show heart rate 93, blood pressure 133/66, pulse ox 97% on room air, oral temp of 99F. CBC shows WBC 11.7, hemoglobin 7.9, hematocrit 21.9, platelets 329, neutrophils 44.3%. 2+ sickle cells Reticulocyte count of 10.7%. CMP is remarkable for TB bili 2.5, otherwise unremarkable. Chest x-ray: No acute disease. On my initial assessment, the patient appeared very comfortable. She had just walked back from the restroom and did not appear to be in any distress. One nurse administered for pain medication and the patient found out that she was not receiving Benadryl with her Dilaudid, she began to cry loudly. Patient was given one dose of IV Dilaudid. On reassessment she is resting comfortably. She is tolerating Gatorade orally. She was made aware of all laboratory findings. She is stable for discharge home. I informed her to follow up with her auxiliary powerplant operator Dr. Rivas today. She was informed on when to return to the emergency department. She verbalizes understanding and agreement with plan. Diagnosis Primary Impression: Sickle cell pain crisis Referrals: Oncologist 1 day Additional Instructions: Follow-up with your auxiliary powerplant operator today. Return to the emergency department for worsening symptoms or any other concerns. Disposition: 01 DISCHARGE HOME Condition: Stable Mitchell Bonds MD Dec 19, 2016 02:58
[2016-12-19] MEDS ORDERED: SODIUM CHLORIDE 0.9% FLUSH 10 ML FLUSH IVF PRN (03:00)
[2016-12-19] MEDS ORDERED: ONDANSETRON HCL 4 MG/2 ML VIAL IVP ONE (03:00)
[2016-12-19] MEDS ORDERED: HYDROmorphone HCL PF 1 MG/ML VIAL IVS ONE (03:00)
[2016-12-19 03:20] LABS: AUTOMATED NEUTROPHIL # 5.2 TH/MM3 (1.8-7.7); BASOPHIL # 0.1 TH/MM3 (0-0.2); BASOPHIL % 1.1 % (0.0-2.0); EOSINOPHIL # 0.3 TH/MM3 (0-0.4); EOSINOPHIL % 2.9 % (0.0-4.0); HEMATOCRIT 21.9 % (35.0-46.0); HEMO FLAGS AUTO DIFF; LYMPH % 42.5 % (9.0-44.0); MEAN CELL VOLUME 84.3 FL (80.0-100.0); MEAN CORPUSCULAR HEMOGLOBIN 30.5 PG (27.0-34.0); MONO % 9.2 % (0.0-8.0); NEUT % 44.3 % (16.0-70.0); PLATELET COUNT 329 TH/MM3 (150-450); RED BLOOD COUNT 2.59 MIL/MM3 (4.00-5.30); RED CELL DISTRIBUTION WIDTH 23.7 % (11.6-17.2); RETIC % 10.7 % (0.4-3.0); REVIEW FLAG AUTO DIFF; WHITE BLOOD COUNT 11.7 TH/MM3 (4.0-11.0)
--- NOTE | 2016-12-19 03:38 | RADRPT ---
EXAM DATE/TIME: 12/19/2016 02:53 [place] COMPARISON: CHEST SINGLE AP, December 02, 2016, 4:39. INDICATIONS : Chest pain, sickle cell crisis MEDICAL HISTORY : Sickle Cell disease. SURGICAL HISTORY : None. ENCOUNTER: Initial ACUITY: 2 days PAIN SCORE: 10/10 LOCATION: Bilateral chest FINDINGS: A single view of the chest demonstrates the lungs to be symmetrically aerated without evidence of mas s, infiltrate or effusion. The cardiomediastinal contours are unremarkable. Osseous structures are intact. Right portacatheter again noted. CONCLUSION: No acute disease. Jose Alfredo Gu MD on December 19, 2016 at 3:36 Board Certified Radiologist. This report was verified electronically.
[2016-12-19 03:50] LABS: ALKALINE PHOSPHATASE 98 U/L (45-117); TOTAL BILIRUBIN ADULT 2.5 MG/DL (0.2-1.0)
[2016-12-19 03:51] LABS: CORRECTED NUCLEATED RBC 3 /100 WBC (0-0); EOSINOPHILS 2 % (0-4); NEUTROPHIL # MANUAL DIFF 6.4 TH/MM3 (1.8-7.7); POLYS (SEG NEUTROPHILS) 55 % (16-70); SCAN/DIFF FINAL DIFF MANUAL; SICKLE CELLS 2+ (NORMAL); WBC DIFF SAMPLE 100
[2016-12-19 03:55] LABS: PLATELET ESTIMATE SMEAR NORMAL (NORMAL); PLATELET MORPHOLOGY NORMAL (NORMAL)
[2016-12-19 04:02] LABS: POLYCHROMASIA 6.5 % (0.0-1.9)
[2016-12-19 04:03] LABS: HOWELL-JOLLY BODIES PRESENT (NONE SEEN)
[2016-12-19 04:08] LABS: ALT (GPT) 17 U/L (10-53); ANION GAP 6 MEQ/L (5-15); AST (GOT) 60 U/L (15-37); BICARBONATE 26.9 MEQ/L (21.0-32.0); BLOOD UREA NITROGEN 7 MG/DL (7-18); CHLORIDE 107 MEQ/L (98-107); GLOMERULAR FILTRATION RATE 189 ML/MIN (>89); POTASSIUM 3.6 MEQ/L (3.5-5.1); SODIUM (NA) 140 MEQ/L (136-145)
[2016-12-19 04:37] VITALS: BP 111/62; PULSE 85; RESP 18; O2SAT 95
== END 2016-12-19 06:06 | disposition home or self-care (01) ==
LOC: NEPE 02:26
DX: D57.00 Hb-SS disease with crisis, unspecified (principal)
CPT/HCPCS: 71010; 80053; 85007; 85027; 85044; 96361; 96374; 96375; 99284; J1170; J1642; J2405; J7030

== ENCOUNTER 2016-12-21 15:30 | Inpatient (IN) | payer OTHER ==
[~2016-12-21] VITALS: Ht 152.4 cm; Wt 59.7 kg
[2016-12-21 15:38] VITALS: BP 106/56; PULSE 71; RESP 16; TEMP 97.6; O2SAT 99
[2016-12-21] MEDS ORDERED: SODIUM CHLOR 0.9% 1000 ML INJ 1,000 ML IV ONE (15:41)
[2016-12-21 15:44] LABS: MEAN CORPUSCULAR HGB CONC 36.8 % (32.0-36.0)
[2016-12-21] MEDS ORDERED: HYDROmorphone HCL PF 1 MG/ML VIAL IVS ONE ×2 (15:45→17:00)
[2016-12-21] MEDS ORDERED: SODIUM CHLORIDE 0.9% FLUSH 10 ML FLUSH IVF PRN (15:45)
[2016-12-21] MEDS ORDERED: ONDANSETRON HCL 4 MG/2 ML VIAL IVP ONE (15:45)
[2016-12-21] MEDS ORDERED: diphenhydrAMINE HCL 50 MG/ML VIAL IV ONE (15:45)
[2016-12-21 16:16] VITALS: O2SAT 100
--- NOTE | 2016-12-21 16:20 | PD ---
HPI Chief Complaint: Sickle Cell Time Seen by Provider: 15:41 Travel History International Travel<30 days: No Contact w/Intl Traveler<30days: No Traveled to known affect area: No History of Present Illness HPI This is a 31-year-old female well known to this emerged from, presents here with complaints of sickle cell pain. The patient was here last 2 days ago. She states that she is having worse pain in all of her joints. She denies any fevers but does state that she's been warm over the last 24 hours. She denies any PFSH Past Medical History Hx Anticoagulant Therapy: No Anemia: Yes Arthritis: No Asthma: No Autoimmune Disease: No Blood Disorders: No Anxiety: No Depression: No Cancer: No Cardiovascular Problems: No Chemotherapy: No Chest Pain: Yes Congestive Heart Failure: No COPD: No Cerebrovascular Accident: No Diabetes: No Diminished Hearing: No Endocrine: No Gastrointestinal Disorders: Yes (GALLSTONES) GERD: No Genitourinary: Yes Headaches: Yes Hiatal Hernia: No Immune Disorder: No Implanted Vascular Access Dvce: Yes (RIGHT CHEST ) Insomnia: Yes Kidney Stones: Yes Musculoskeletal: No Neurologic: No Psychiatric: No Reproductive: No Respiratory: No Immunizations Current: Yes Migraines: No Pneumonia: Yes Radiation Therapy: No Renal Failure: No Seizures: No Sickle Cell Disease: Yes Thyroid Disease: No Ulcer: No PNEUMOCCOCAL Vaccine (Year): 2 ?: Not LMP: now : 2 Para: 1 Miscarriage: 1 : 0 Tubal Ligation: Yes Past Surgical History Abdominal Surgery: Yes (hector) AICD: No Arteriovenous Shunt: No Body Medical Devices: MEDPORT Cardiac Surgery: No Section: Yes Cholecystectomy: Yes Ear Surgery: No Endocrine Surgery: No Eye Surgery: No Genitourinary Surgery: No Gynecologic Surgery: Yes (tubal ligation) Insulin Pump: No Joint Replacement: No Oral Surgery: Yes Pacemaker: No Thoracic Surgery: Yes (CHEST PORT ) Tonsillectomy: Yes Other Surgery: Yes (RIGHT CHEST INFUSAPORT ) Social History Alcohol Use: No Tobacco Use: No Substance Use: No Allergies-Medications (Allergen,Severity, Reaction): Coded Allergies: Morphine (Verified Allergy, Severe, RASH, 12/21/16) *MDRO Multi-Drug Resistant Organism (Verified Adverse Reaction, Unknown, MRSA, 12/21/16) MRSA (blood) - 12/18/2004 MRSA PCR screen NEGATIVE 08/27/16 & 09/21/16 Cleared per Infection Control Reported Meds & Prescriptions Reported Meds & Active Scripts Active Lortab (Hydrocodone-Acetaminophen) 10-325 Mg Tab 1 Tab PO Q4H PRN Reported Folic Acid 400 Mcg Tab 400 Mcg PO DAILY Physical Exam Narrative GENERAL: Well-nourished, well-developed patient. SKIN: Focused skin assessment warm/dry. HEAD: Normocephalic/atraumatic. EYES: No scleral icterus. No injection or drainage. NECK: Supple, trachea midline. No JVD or lymphadenopathy. CARDIOVASCULAR: Regular rate and rhythm without murmurs, gallops, or rubs. RESPIRATORY: Breath sounds equal bilaterally. No accessory muscle use. GASTROINTESTINAL: Abdomen soft, non-tender, nondistended. MUSCULOSKELETAL: No cyanosis, or edema. BACK: Subjective joint pain including her lower back. NEUROLOGICAL: Awake and alert. Cranial nerves II through XII intact. Motor grossly within normal limits. Five out of 5 muscle strength in all muscle groups. Normal speech. Data Data Last Documented VS Vital Signs Date Time Temp Pulse Resp B/P Pulse Ox O2 Delivery O2 Flow Rate FiO2 12/21/16 17:12 81 15 100/61 94 Room Air 12/21/16 16:16 1 12/21/16 15:38 97.6 Orders Basic Metabolic Panel (Bmp) (12/21/16 15:41) Complete Blood Count With Diff (12/21/16 15:41) Retic Count (12/21/16 15:41) Urinalysis - C+S If Indicated (12/21/16 15:41) Ecg Monitoring (12/21/16 15:41) Iv Access Insert/Monitor (12/21/16 15:41) Oximetry (12/21/16 15:41) Ondansetron Inj (Zofran Inj) (12/21/16 15:45) Sodium Chloride 0.9% Flush (Ns Flush) (12/21/16 15:45) Sodium Chlor 0.9% 1000 Ml Inj (Ns 1000 M (12/21/16 15:41) Hydromorphone Pf Inj (Dilaudid Pf Inj) (12/21/16 15:45) Diphenhydramine Inj (Benadryl Inj) (12/21/16 15:45) Hydromorphone Pf Inj (Dilaudid Pf Inj) (12/21/16 17:00) Admit Order (Ed Use Only) (12/21/16 17:30) Ns + Kcl 40 Meq Inj (Ns + Kcl 40 Meq Inj (12/21/16 17:30) Labs Laboratory Tests Test 12/21/16 15:50 White Blood Count 12.2 TH/MM3 Red Blood Count 2.67 MIL/MM3 Hemoglobin 8.2 GM/DL Hematocrit 22.3 % Mean Corpuscular Volume 83.4 FL Mean Corpuscular Hemoglobin 30.7 PG Mean Corpuscular Hemoglobin 36.8 % Concent Red Cell Distribution Width 21.6 % Platelet Count 392 TH/MM3 Mean Platelet Volume 8.5 FL Neutrophils (%) (Auto) 62.7 % Lymphocytes (%) (Auto) 27.2 % Monocytes (%) (Auto) 7.4 % Eosinophils (%) (Auto) 1.8 % Basophils (%) (Auto) 0.9 % Neutrophils # (Auto) 7.6 TH/MM3 Lymphocytes # (Auto) 3.3 TH/MM3 Monocytes # (Auto) 0.9 TH/MM3 Eosinophils # (Auto) 0.2 TH/MM3 Basophils # (Auto) 0.1 TH/MM3 CBC Comment AUTO DIFF Differential Comment AUTO DIFF CONFIRMED Platelet Estimate NORMAL Platelet Morphology Comment NORMAL Sickle Cells 2+ Reticulocyte Count 7.8 % Absolute Reticulocyte Count 206.8 MIL/L Sodium Level 140 MEQ/L Potassium Level 2.5 MEQ/L Chloride Level 105 MEQ/L Carbon Dioxide Level 21.2 MEQ/L Anion Gap 14 MEQ/L Blood Urea Nitrogen 5 MG/DL Creatinine 0.60 MG/DL Estimat Glomerular Filtration 139 ML/MIN Rate Random Glucose 162 MG/DL Calcium Level 9.0 MG/DL [facility] Medical Decision Making Medical Screen Exam Complete: Yes Emergency Medical Condition: Yes Differential Diagnosis Sickle cell pain crisis versus metabolic derangement versus UTI Narrative Course This is a 31-year-old female with history of sickle cell disease, who presents today with complaints of reported pain crisis. The patient states this is worse than her normal pain crisis. She was seen here 2 days ago for the same thing. At that time she had stable blood work. Today her blood potassium comes back at 2.5. She will be admitted to the hospital under observation for pain control and potassium replacement. The case was discussed with the resident service who graciously here to see the patient and will admit her under observation. Diagnosis Primary Impression: Sickle cell pain crisis Additional Impression: Hypokalemia Admitting Information Admitting Physician Requests: Observation Lazaro Teague MD Dec 21, 2016 16:20
[2016-12-21 16:26] LABS: AUTOMATED NEUTROPHIL # 7.6 TH/MM3 (1.8-7.7); BASOPHIL # 0.1 TH/MM3 (0-0.2); BASOPHIL % 0.9 % (0.0-2.0); EOSINOPHIL # 0.2 TH/MM3 (0-0.4); EOSINOPHIL % 1.8 % (0.0-4.0); HEMATOCRIT 22.3 % (35.0-46.0); LYMPH % 27.2 % (9.0-44.0); LYMPHOCYTE # 3.3 TH/MM3 (1.0-4.8); MEAN CELL VOLUME 83.4 FL (80.0-100.0); MEAN CORPUSCULAR HEMOGLOBIN 30.7 PG (27.0-34.0); MONO % 7.4 % (0.0-8.0); NEUT % 62.7 % (16.0-70.0); PLATELET COUNT 392 TH/MM3 (150-450); RED BLOOD COUNT 2.67 MIL/MM3 (4.00-5.30); RED CELL DISTRIBUTION WIDTH 21.6 % (11.6-17.2); RETIC % 7.8 % (0.4-3.0); WHITE BLOOD COUNT 12.2 TH/MM3 (4.0-11.0)
[2016-12-21 16:28] LABS: HEMO FLAGS AUTO DIFF; REVIEW FLAG AUTO DIFF
[2016-12-21 16:56] LABS: SICKLE CELLS 2+ (NORMAL)
[2016-12-21 16:57] LABS: PLATELET ESTIMATE SMEAR NORMAL (NORMAL); PLATELET MORPHOLOGY NORMAL (NORMAL); SCAN/DIFF AUTO DIFF CONFIRMED
[2016-12-21 17:12] VITALS: BP 100/61; PULSE 81; RESP 15; O2SAT 94
[2016-12-21 17:18] LABS: BICARBONATE 21.2 MEQ/L (21.0-32.0)
[2016-12-21 17:20] LABS: POTASSIUM 2.5 MEQ/L (3.5-5.1)
[2016-12-21] MEDS ORDERED: NS + KCL 40 MEQ INJ 1,000 ML IV SCH (17:30)
--- NOTE | 2016-12-21 17:40 | HHI.HP ---
HPI Service Family Medicine Primary Care Physician Unknown Admission Diagnosis sickle cell pain crisis, hypokalemia Diagnoses: International Travel<30 Days: No Contact w/Intl Traveler<30days: No Known Affected Area: No History of Present Illness Pt is a 31 year old female with past medical history significant for sickle cell disease presenting due to an acute pain crisis. Patient was brought to the ED via [facility]. She reports that while she was getting dressed earlier this morning she started to feel hot. She proceeded to get in the shower and felt as if she was going to faint. She stepped out of the shower to go lay down and started to have severe pain in her back and lower extremities. She was not able to walk and fell to the ground due to pain. No injury sustained. She reports that pain in her legs and back is a 10 out of 10 in intensity. She endorses lower abdominal pain which she attributes to her menstrual period. She reports that her director of vital statistics is Dr. Rivas, she last saw him several weeks ago. She reports that her hemoglobin normally ranges from 89. She denies any chest pain, shortness of breath. (Christie Henry MD R3) Review of Systems Constitutional: DENIES: Fever, Chills Endocrine: DENIES: Abnorml menstrual pattern Eyes: DENIES: Blurred vision Ears, nose, mouth, throat: DENIES: Hearing loss Respiratory: DENIES: Shortness of breath Cardiovascular: DENIES: Chest pain Gastrointestinal: COMPLAINS OF: Abdominal pain (menstrual cramps) Musculoskeletal: COMPLAINS OF: Joint pain, Muscle aches, Back pain Integumentary: DENIES: Rash Hematologic/lymphatic: DENIES: Bruising Neurologic: COMPLAINS OF: Localized weakness (Christie Henry MD R3) Past Family Social History Past Medical History Sickled Cell Disease Multiple blood transfusions. Past Surgical History Tubal ligation Ikhbrp-[id number] placement Cholecystectomy 1994 Tonsillectomy Reported Medications Reported Meds & Active Scripts Active Lortab (Hydrocodone-Acetaminophen) 10-325 Mg Tab 1 Tab PO Q4H PRN Reported Folic Acid 400 Mcg Tab 400 Mcg PO DAILY (Christie Henry MD R3) Allergies: Coded Allergies: Morphine (Verified Allergy, Severe, RASH, 12/21/16) *MDRO Multi-Drug Resistant Organism (Verified Adverse Reaction, Unknown, MRSA, 12/21/16) MRSA (blood) - 12/18/2004 MRSA PCR screen NEGATIVE 08/27/16 & 09/21/16 Cleared per Infection Control Active Ordered Medications Inpatient Medications Acetaminophen (Tylenol) 650 mg Q4H PRN PO TEMP > 100.4; Start 12/21/16 at 17:45 Acetaminophen/ Hydrocodone Bitart ([place] 5-325 Mg) 1 tab Q4H PRN PO PAIN SCALE 3 TO 5; Start 12/21/16 at 18:15 Acetaminophen/ Hydrocodone Bitart ([place] 10-325 Mg) 1 tab Q4H PRN PO PAIN SCALE 6 TO 10; Start 12/21/16 at 18:15 Bisacodyl (Dulcolax Supp) 10 mg DAILY PRN RECTAL SEVERE CONSITIPATION; Start at 17:45 Diphenhydramine HCl (Benadryl Inj) 25 mg Q4H PRN IM ITCHING Last administered on 12/22/16 04:44; Start 12/21/16 at 19:45 Diphenhydramine HCl (Benadryl) 25 mg Q4H PRN PO MILD TO MODERATE ITCHING; Start 12/21/16 at 18:15; Stop 12/21/16 at 19:47; Status DC Hydromorphone HCl (Dilaudid Pf Inj) 1 mg Q3H PRN IV BREAKTHROUGH PAIN Last administered on 12/22/16 04:45; Start 12/21/16 at 18:15 Hydromorphone HCl 1 mg 1 mg ONCE ONCE IVS Last administered on 12/21/16 17:09 ; Start 12/21/16 at 17:00; Stop 12/21/16 at 17:01; Status DC Influenza Virus Vaccine (Flu (Quadrivalent) Vaccine Inj) 0.5 ml ONCE ONCE IM ; Start 12/22/16 at 10:00; Stop 12/22/16 at 10:00; Status DC Lactulose (Lactulose Liq) 30 ml DAILY PRN PO SEVERE CONSITIPATION; Start at 17:45 Magnesium Hydroxide (Milk Of Magnesia Liq) 30 ml Q12H PRN PO MILD - MODERATE CONSTIPATION; Start 12/21/16 at 17:45 Naloxone HCl (Narcan Inj) 0.4 mg UNSCH PRN IV SEE LABEL COMMENTS; Start at 18:15 Ondansetron HCl (Zofran Inj) 4 mg Q6H PRN IVP NAUSEA OR VOMITING; Start at 17:45 Pneumococcal Polyvalent Vaccine (Pneumovax-23 Inj) 25 mcg ONCE ONCE IM ; Start 12/22/16 at 10:00; Stop 12/22/16 at 10:01 Potassium Chloride 40 meq 40 meq ONCE ONCE PO Last administered on 12/22/16 03:30; Start 12/22/16 at 03:30; Stop 12/22/16 at 03:31; Status DC Potassium Chloride/Sodium Chloride (NS + KCl 40 Meq Inj) 1,000 ml @ 100 mls/hr Q10H IV Last administered on 12/22/16 04:46; Start 12/22/16 at 04:45 Senna/Docusate Sodium (Leticia-Colace) 1 tab BID PO Last administered on 20:29; Start 12/21/16 at 21:00 Sennosides (Senokot) 17.2 mg Q12H PRN PO MODERATE - SEVERE CONSTIPATION; Start 12/21/16 at 17:45 Sodium Chloride (NS 1000 ml Inj) 1,000 ml @ 100 mls/hr Q10H IV Last administered on 12/21/16 17:45; Start 12/21/16 at 17:45; Stop 12/22/16 at 04:25 ; Status DC Sodium Chloride (NS Flush) 2 ml BID IV FLUSH Last administered on 12/21/16 20: 29; Start 12/21/16 at 21:00 Family History Mother: Breast cancer Father: None Sister with sickle cell Social History Lives with her son Denies looking, alcohol, illicit substance use (Christie Henry MD R3) Physical Exam Vital Signs Vital Signs Date Time Temp Pulse Resp B/P Pulse Ox O2 Delivery O2 Flow Rate FiO2 12/21/16 17:35 15 12/21/16 17:12 81 15 100/61 94 Room Air 12/21/16 16:24 15 12/21/16 16:16 100 Nasal Cannula 1 12/21/16 15:38 97.6 71 16 106/56 99 Physical Exam GENERAL: This is a well-nourished, well-developed patient, laying in bed, appears uncomfortable. SKIN: No rashes, ecchymoses or lesions. Cool and dry. HEAD: Atraumatic. Normocephalic. No temporal or scalp tenderness. EYES: Pupils equal round and reactive. [place] sclera. Extraocular motions intact. ENT: Nose without bleeding, purulent drainage or septal hematoma. Throat without erythema, tonsillar hypertrophy or exudate. Uvula midline. Airway patent. NECK: Trachea midline. No JVD or lymphadenopathy. Supple, nontender, no meningeal signs. CARDIOVASCULAR: Regular rate and rhythm without murmurs, gallops, or rubs. RESPIRATORY: Clear to auscultation. Breath sounds equal bilaterally. No wheezes , rales, or rhonchi. GASTROINTESTINAL: Abdomen soft, mild tenderness of lower quadrants, nondistended. No palpable masses. No guarding. MUSCULOSKELETAL: Extremities without clubbing, cyanosis, or edema. Pain with palpation of lower extremities and lower back. Pt declines additional movement due to pain. No calf tenderness. Negative Homans sign bilaterally. NEUROLOGICAL: Awake and alert. Cranial nerves II through XII intact. Motor and sensory grossly within normal limits. Five out of 5 muscle strength in all muscle groups. Normal speech. Laboratory Laboratory Tests Test 12/21/16 15:50 White Blood Count 12.2 Red Blood Count 2.67 Hemoglobin 8.2 Hematocrit 22.3 Mean Corpuscular Volume 83.4 Mean Corpuscular Hemoglobin 30.7 Mean Corpuscular Hemoglobin 36.8 Concent Red Cell Distribution Width 21.6 Platelet Count 392 Mean Platelet Volume 8.5 Neutrophils (%) (Auto) 62.7 Lymphocytes (%) (Auto) 27.2 Monocytes (%) (Auto) 7.4 Eosinophils (%) (Auto) 1.8 Basophils (%) (Auto) 0.9 Neutrophils # (Auto) 7.6 Lymphocytes # (Auto) 3.3 Monocytes # (Auto) 0.9 Eosinophils # (Auto) 0.2 Basophils # (Auto) 0.1 CBC Comment AUTO DIFF Differential Comment AUTO DIFF CONFIRMED Platelet Estimate NORMAL Platelet Morphology Comment NORMAL Sickle Cells 2+ Reticulocyte Count 7.8 Absolute Reticulocyte Count 206.8 Sodium Level 140 Potassium Level 2.5 Chloride Level 105 Carbon Dioxide Level 21.2 Anion Gap 14 Blood Urea Nitrogen 5 Creatinine 0.60 Estimat Glomerular Filtration 139 Rate Random Glucose 162 Calcium Level 9.0 (Christie Henry MD R3) Result Diagram: 12/21/16 1550 12/21/16 1550 Assessment and Plan Assessment and Plan Patient is a 31-piyn-ifi-[place] female with past history significant for sickle cell disease presenting to the ED due to a pain crisis. Code Status Full Discussed Condition With SDW Dr. Dill (Christie Henry MD R3) Attending Attestation THIS CASE WAS DISCUSSED WITH THE RESIDENT PHYSICIANS. I HAVE REVIEWED THE RECORD AND AGREE WITH THE ABOVE NOTE AND PLAN OF CARE WAS DISCUSSED. I HAVE AUTHORIZED THE ORDER FOR ADMISSION TO AN IN-PATIENT STATUS. (Anthony Berry MD) Problem List: (1) Sickle cell pain crisis Status: Acute Plan: Patient with history of sickle cell disease reports acute pain crisis. Patient is afebrile and vital signs are stable. Patient has had 8 visits to the ED over the past 2 months due to pain crises. -Hemoglobin currently stable at 8.2 -Continue to monitor H&H -See fluids below -[place] 5325 prn pain 3-5, [place] 5325 prn pain 6-10 -Dilaudid 1 mg IV Q3hrs prn breakthrough -Benadryl prn Itching -Continue home folate -Consider chest x-ray if patient becomes febrile to evaluate for acute chest syndrome (2) Hypokalemia Status: Acute Plan: On admission potassium low at 2.5. -Pt given 40 meq of KCL IV with fluid x2 -Patient refuses any oral potassium she reports that this causes GI upset -Will recheck in the morning (3) FEN/PPX Status: Acute Plan: Fluids: Normal saline with KCl at 100mls/hr Electrolytes: See hypokalemia above, continue to monitor. Nutrition: Regular diet DVT PPX: Heparin, scds/tessie hose (Christie Henry MD R3) Christie Henry MD R3 Dec 21, 2016 17:39 Anthony Berry MD Dec 22, 2016 15:26
[2016-12-21] MEDS ORDERED: BISACODYL 10 MG SUPP RECTAL PRN (17:45)
[2016-12-21] MEDS ORDERED: ONDANSETRON HCL 4 MG/2 ML VIAL IVP PRN (17:45)
[2016-12-21] MEDS ORDERED: ACETAMINOPHEN 325 MG TAB PO PRN (17:45)
[2016-12-21] MEDS ORDERED: MAGNESIUM HYDROXIDE SUSP 30 ML CUP PO PRN (17:45)
[2016-12-21] MEDS ORDERED: LACTULOSE SYRUP 20 GM/30 ML CUP PO PRN (17:45)
[2016-12-21] MEDS ORDERED: SODIUM CHLOR 0.9% 1000 ML INJ 1,000 ML IV SCH (17:45)
[2016-12-21] MEDS ORDERED: SENNOSIDES 8.6 MG TAB PO PRN (17:45)
[2016-12-21] MEDS ORDERED: SODIUM CHLORIDE 0.9% FLUSH 10 ML FLUSH IV FLUSH PRN (17:45)
[2016-12-21] MEDS ORDERED: diphenhydrAMINE HCL 25 MG CAP PO PRN (18:15)
[2016-12-21] MEDS ORDERED: ACETAMINOPHEN/HYDROcodone 325 MG/10 MG TAB PO PRN (18:15)
[2016-12-21] MEDS ORDERED: ACETAMINOPHEN/HYDROcodone 325 MG/5 MG TAB PO PRN (18:15)
[2016-12-21] MEDS ORDERED: NALOXONE HCL 0.4 MG/ML AMP IV PRN (18:15)
[2016-12-21 20:00] VITALS: BP 127/57; PULSE 103; RESP 20; TEMP 98.5; O2SAT 92
[2016-12-21] MEDS: diphenhydrAMINE HCL 50 MG/ML VIAL IM PRN (20:28)
[2016-12-21] MEDS: HYDROmorphone HCL PF 1 MG/ML VIAL IV PRN (20:29)
[2016-12-21] MEDS: SODIUM CHLORIDE 0.9% FLUSH 10 ML FLUSH IV FLUSH SCH (20:29)
[2016-12-21] MEDS: DOCUSATE SODIUM 50 MG/SENNA 8.6 MG TAB PO SCH (20:29)
[2016-12-22] VITALS (9 sets, daily range): BP systolic 95–127; BP diastolic 50–78; PULSE 64–90; RESP 14–20; TEMP 96.3–98.7; O2SAT 90–97
[2016-12-22] MEDS: diphenhydrAMINE HCL 50 MG/ML VIAL IM PRN ×2 (00:40→04:44)
[2016-12-22] MEDS: HYDROmorphone HCL PF 1 MG/ML VIAL IV PRN ×4 (00:41→15:29)
[2016-12-22] MEDS ORDERED: POTASSIUM CHLORIDE 10 MEQ CAP PO ONE (03:30)
[2016-12-22] MEDS: NS + KCL 40 MEQ INJ 1,000 ML IV SCH (04:46)
[2016-12-22] MEDS: HEPARIN SODIUM - SQ 10,000 UNITS/ML VIAL SQ SCH ×2 (09:00→21:00)
[2016-12-22] MEDS: SODIUM CHLORIDE 0.9% FLUSH 10 ML FLUSH IV FLUSH SCH ×2 (09:00→21:00)
--- NOTE | 2016-12-22 09:15 | HHI.FPPN ---
Subjective Remarks FM Attending Note: Patient seen and examined. S: Chart and all resident physician notes reviewed. In summary this is a 31 year old female who was admitted with an admission diagnosis of Sickle Cell Crisis Pain,Hypokalemia. This patient has a past medical history significant for sickle cell disease presenting due to an acute pain crisis. Patient was brought to the ED via [facility]. She reports that while she was getting dressed earlier this morning she started to feel hot. She proceeded to get in the shower and felt as if she was going to faint. She stepped out of the shower to go lay down and started to have severe pain in her back and lower extremities. She was not able to walk and fell to the ground due to pain. No injury sustained. She reports that pain in her legs and back is a 10 out of 10 in intensity. She endorses lower abdominal pain which she attributes to her menstrual period. She reports that her crate tier is Dr. Rivas, she last saw him several weeks ago. She reports that her hemoglobin normally ranges from 89. She denies any chest pain, shortness of breath. Over night and this morning the patient continues to have pain in her low back and legs. Overall she feels it has improved somewhat but still significant requiring parenteral pain medications. The patient was again asked about precipitating events and none are noted. The history of the present illness, past/family/social history and review of systems documented by Dr. Henry were reviewed and confirmed. Objective Vitals Vital Signs Date Time Temp Pulse Resp B/P Pulse Ox O2 Delivery O2 Flow Rate FiO2 12/22/16 07:44 98.4 75 16 93 12/22/16 05:47 18 12/22/16 04:00 98.2 83 20 95/53 96 12/22/16 00:00 96.3 81 20 103/50 90 12/21/16 20:00 98.5 103 20 127/57 92 12/21/16 17:35 15 12/21/16 17:12 81 15 100/61 94 Room Air 12/21/16 16:24 15 12/21/16 16:16 100 Nasal Cannula 1 12/21/16 15:38 97.6 71 16 106/56 99 I/O 12/21/16 12/21/16 12/21/16 12/22/16 12/22/16 12/22/16 07:00 15:00 23:00 07:00 15:00 23:00 Intake Total 450 ml Balance 450 ml Intake Oral 450 ml Result Diagram: 12/21/16 1550 12/21/16 1550 Other Results Item Value Date Time Absolute Reticulocyte Count 206.8 MIL/L H 12/21/16 1550 Reticulocyte Count 7.8 % H 12/21/16 1550 Sickle Cells 2+ H 12/21/16 1550 Potassium Level 4.2 MEQ/L # 12/22/16 1045 Creatinine 0.51 MG/DL 12/22/16 1045 Magnesium Level 1.7 MG/DL 12/22/16 1045 Total Bilirubin 2.3 MG/DL H 12/22/16 1045 Aspartate Amino Transf (AST/SGOT) 58 U/L H 12/22/16 1045 Alanine Aminotransferase (ALT/SGPT) 13 U/L 12/22/16 1045 Objective Remarks O. CONSTITUTIONAL/GEN: normally nourished, in NAD. EYES: conjunctiva normal, PERRLA, EOMI. ENT: Mouth and pharynx normal. NECK: thyroid midline, carotids symmetrical. LUNGS: clear A-P, respiratory effort is normal. CARDIOVASCULAR: RR without murmur or gallop. No significant edema. GI/ABD: soft without masses, without organomegaly. NEURO: No focal deficits. SKIN: color normal, no rashes noted. HEME/LYMPH: no bruising, petechia or significant adenopathy MUSC: back is normal in appearance. Extremities are normal in appearance. PSYCH/MENTAL STATUS: Alert and oriented x 3. A/P Assessment and Plan Patient is a 71-gmij-wns-[place] female with past history significant for sickle cell disease presenting to the ED due to a pain crisis. Problem List: (1) Sickle cell pain crisis Status: Acute Plan: Patient with history of sickle cell disease reports acute pain crisis. Patient is afebrile and vital signs are stable. Patient has had 8 visits to the ED over the past 2 months due to pain crises. -Hemoglobin currently stable at 8.2 -Continue to monitor H&H -See fluids below -[place] 5325 prn pain 3-5, [place] 5325 prn pain 6-10 -Dilaudid 1 mg IV Q3hrs prn breakthrough -Benadryl prn Itching -Continue home folate -Consider chest x-ray if patient becomes febrile to evaluate for acute chest syndrome 12/22/16 The patient notes that her pain is somewhat improved but still present. She is tearful during our examination due to discomfort. For now will continue current treatment with IV hydration and pain medications. Will continue to observe. (2) Hypokalemia Status: Acute Plan: On admission potassium low at 2.5. -Pt given 40 meq of KCL IV with fluid x2 -Patient refuses any oral potassium she reports that this causes GI upset -Will recheck in the morning 12/22/16 The repeat potassium level this morning now is within the normal range. (3) FEN/PPX Status: Acute Plan: Fluids: Normal saline with KCl at 100mls/hr Electrolytes: See hypokalemia above, continue to monitor. Nutrition: Regular diet DVT PPX: Heparin, scds/Anthony Cheung MD Dec 22, 2016 09:15
[2016-12-22] MEDS ORDERED: diphenhydrAMINE HCL 50 MG/ML VIAL IM PRN (10:00)
[2016-12-22] MEDS ORDERED: INFLUENZA VIRUS VACCINE (QUADRIVALENT) 0.5 ML SYR IM ONE (10:00)
[2016-12-22] MEDS ORDERED: PNEUMOCOCCAL POLYVALENT INJ 25 MCG/0.5 ML SYR IM ONE (10:00)
[2016-12-22] MEDS: diphenhydrAMINE HCL 50 MG/ML VIAL IV PUSH PRN ×4 (10:52→23:53)
[2016-12-22] MEDS: FOLIC ACID 1 MG TAB PO SCH (11:06)
[2016-12-22] MEDS: DOCUSATE SODIUM 50 MG/SENNA 8.6 MG TAB PO SCH ×2 (11:06→21:00)
[2016-12-22 11:18] LABS: AUTOMATED NEUTROPHIL # 4.3 TH/MM3 (1.8-7.7); BASOPHIL # 0.1 TH/MM3 (0-0.2); BASOPHIL % 0.9 % (0.0-2.0); EOSINOPHIL # 0.2 TH/MM3 (0-0.4); EOSINOPHIL % 2.7 % (0.0-4.0); LYMPH % 33.1 % (9.0-44.0); LYMPHOCYTE # 2.7 TH/MM3 (1.0-4.8); MEAN CELL VOLUME 83.8 FL (80.0-100.0); MEAN CORPUSCULAR HEMOGLOBIN 30.1 PG (27.0-34.0); MEAN CORPUSCULAR HGB CONC 35.9 % (32.0-36.0); MONO % 11.7 % (0.0-8.0); NEUT % 51.6 % (16.0-70.0); PLATELET COUNT 301 TH/MM3 (150-450); RED BLOOD COUNT 2.22 MIL/MM3 (4.00-5.30); RED CELL DISTRIBUTION WIDTH 22.2 % (11.6-17.2); WHITE BLOOD COUNT 8.3 TH/MM3 (4.0-11.0)
[2016-12-22 11:31] LABS: HEMATOCRIT 18.6 % (35.0-46.0); HEMO FLAGS AUTO DIFF
[2016-12-22 11:45] LABS: ALKALINE PHOSPHATASE 86 U/L (45-117); ALT (GPT) 13 U/L (10-53); ANION GAP 6 MEQ/L (5-15); AST (GOT) 58 U/L (15-37); BICARBONATE 26.4 MEQ/L (21.0-32.0); BLOOD UREA NITROGEN 3 MG/DL (7-18); CHLORIDE 111 MEQ/L (98-107); GLOMERULAR FILTRATION RATE 168 ML/MIN (>89); MAGNESIUM 1.7 MG/DL (1.5-2.5); POTASSIUM 4.2 MEQ/L (3.5-5.1); SODIUM (NA) 143 MEQ/L (136-145); TOTAL BILIRUBIN ADULT 2.3 MG/DL (0.2-1.0)
[2016-12-22 12:07] LABS: BANDS 1 % (0-6); CORRECTED NUCLEATED RBC 10 /100 WBC (0-0); EOSINOPHILS 1 % (0-4); POLYS (SEG NEUTROPHILS) 59 % (16-70); SICKLE CELLS 2+ (NORMAL); WBC DIFF SAMPLE 100
[2016-12-22 12:09] LABS: HOWELL-JOLLY BODIES PRESENT (NONE SEEN); PLATELET ESTIMATE SMEAR NORMAL (NORMAL); PLATELET MORPHOLOGY NORMAL (NORMAL); POLYCHROMASIA 3.8 % (0.0-1.9); SCAN/DIFF FINAL DIFF MANUAL
[2016-12-22] MEDS ORDERED: diphenhydrAMINE HCL 25 MG CAP PO PRN (13:45)
[2016-12-22] MEDS ORDERED: SODIUM CHLOR 0.9% 250 ML INJ 250 ML IV ONE (13:45)
[2016-12-22] MEDS ORDERED: POTASSIUM CHLORIDE INJ 40 MEQ in SODIUM CHLOR 0.9% 1000 ML INJ 1,000 ML IV SCH (17:45)
[2016-12-22] MEDS: HYDROmorphone HCL PF 1 MG/ML VIAL IV PUSH PRN ×2 (19:55→23:54)
[2016-12-22] MEDS ORDERED: ACETAMINOPHEN 325 MG TAB PO PRN (20:15)
--- NOTE | 2016-12-22 20:31 | MB ---
cc: JITENDRA SERNA M.D., RUBY ANNE E. M.D. CHEW, BOON Y. M.D. DATE OF CONSULTATION: 12/22/2016. REASON FOR CONSULTATION / CHIEF COMPLAINT: Dr. Dill requested a consultation for Ms. Ching regarding sickle-cell disease and acute vasoocclusive pain crises. REFERRING PHYSICIAN: Dr. Cinthya Serna. HISTORY OF PRESENT ILLNESS: Ms. Ching is a 31-year-old woman well-known patient with sickle-cell disease. She has frequent vasoocclusive pain crises. She has had multiple emergency room visits for pain. She has been discharged from the hematology clinic. She was last seen by my partner, Dr. Juan Perez, on 08/27/2016, during a hospital consultation. Ms. Ching describes the precipitating event of her vasoocclusive pain crises is her menses. She describes having a syncopal episodes witnessed by her 9-year-old son. On review of records from the emergency room, she complained of sickle pain and had been in the emergency department two days prior. She describes worsening joint pains. She describes that her menses are quite heavy. She was agreeable to transfusions. Her hemoglobin on admission was 8.2. After hydration, her hemoglobin decreased to 6.7. She appears comfortable with moving all her extremities. She reports an 8/10 pain to nursing. She is currently under the care of Dr. Rivas. She describes being under the care of a rodding machine tender and has not responded well to Depo-Provera in controlling her menses. She is contemplating other options to stop her menses. She has had a tubal ligation. The rest of her review of systems is negative. She denies any fevers, chills or night sweats. She has no sick contacts. No headaches at present. No nausea or vomiting. She has a typical crisis-like pain. She denies any urinary complaints. PAST MEDICAL HISTORY: 1. Sickle-cell disease and frequent vasoocclusive pain crises. 2. Chronic back pain. 3. Depression. 4. Iron overload. PAST SURGICAL HISTORY: 1. Cholecystectomy. 2. Tonsillectomy. 3. Tubal ligation. 4. Port placement. FAMILY HISTORY: A sister has sickle-cell disease. Both parents have trait. SOCIAL HISTORY: She denies any tobacco, alcohol or illicit drug use. ALLERGIES: MORPHINE. CURRENT MEDICATIONS: 1. Hydromorphone. 2. Sodium chloride. 3. Benadryl PRN. 4. Folic acid. 5. Leticia-Colace. PHYSICAL EXAMINATION: VITAL SIGNS: Temperature 98.2, heart rate 83, respiratory rate 14, blood pressure 114/78, saturation 92%. GENERAL: Ms. Ching is a well-developed, well-nourished woman in no acute distress. She looks heavier than previous evaluation. HEAD, EYES, EARS, NOSE, THROAT: The sclerae are mildly icteric. Her oropharynx is clear. NECK: The neck is supple. LUNGS: Clear to auscultation. CARDIOVASCULAR: Normal rate and rhythm. ABDOMEN: Benign. LOWER EXTREMITIES: No edema. LABS: Significant for: Normocytic anemia with hemoglobin of 6.7. Chemistry significant for elevated bilirubin of 2.3. AST is elevated at 58. Renal function is normal. Her last ferritin from 2016 is 537. ASSESSMENT AND PLAN: Ms. Ching is a 31-year-old woman with sickle-cell disease and frequent vasoocclusive pain crises and chronic pain. She has multiple emergency room admissions for vasoocclusive pain symptoms. She reports that they are precipitated by her menses. She is admitted with acute vasoocclusive pain crises. She was given supportive treatment, IV fluid hydration and pain medication. Her pain appears to be well-controlled on the current regimen. We discussed the risks and benefits of transfusion, to which she was agreeable. I recommend a unit of packed red cells. She is encouraged to follow with Dr. Rivas. He checks her ferritin for iron overload. We will monitor her bilirubin and LDH decrease as surrogates for hemolysis improving. She describes that her typical crises symptoms last three days and she usually is able to manage at home. Her questions were answered to her satisfaction. MD RAGHAV Pierre/JCC /8:00 PM /8:10 PM [facility]ITALMarvin
[2016-12-22 21:05] LABS: MEAN CORPUSCULAR HGB CONC 36.4 % (32.0-36.0)
[2016-12-23] VITALS: BP 107/60; PULSE 79; RESP 16; TEMP 98.7; O2SAT 93
[2016-12-23 04:00] VITALS: BP 117/75; PULSE 65; RESP 17; TEMP 97.2; O2SAT 96
[2016-12-23] MEDS: diphenhydrAMINE HCL 50 MG/ML VIAL IV PUSH PRN ×6 (04:09→23:58)
[2016-12-23] MEDS: HYDROmorphone HCL PF 1 MG/ML VIAL IV PUSH PRN ×3 (04:09→12:36)
[2016-12-23] MEDS: NS + KCL 40 MEQ INJ 1,000 ML IV SCH ×4 (04:15→22:18)
[2016-12-23 06:05] LABS: HEMATOCRIT 25.8 % (35.0-46.0); MEAN CELL VOLUME 84.5 FL (80.0-100.0); MEAN CORPUSCULAR HEMOGLOBIN 30.8 PG (27.0-34.0); PLATELET COUNT 351 TH/MM3 (150-450); RED BLOOD COUNT 3.06 MIL/MM3 (4.00-5.30); WHITE BLOOD COUNT 9.7 TH/MM3 (4.0-11.0)
[2016-12-23 06:09] LABS: REVIEW FLAG FINAL
[2016-12-23 06:33] LABS: BICARBONATE 28.6 MEQ/L (21.0-32.0); INDIRECT BILIRUBIN 1.8 MG/DL (0.0-0.8); POTASSIUM 4.2 MEQ/L (3.5-5.1); TOTAL BILIRUBIN ADULT 2.2 MG/DL (0.2-1.0)
[2016-12-23 08:00] VITALS: BP 117/78; PULSE 76; RESP 16; TEMP 99; O2SAT 96
--- NOTE | 2016-12-23 08:14 | PD.ONC.PN ---
Subjective Subjective Remarks Pt did not want me to see her. She was dismissed from [facility] hematology clinic earlier this year. She has been seeing another ice guard inspector. She does not want me to participate in her care. I did not perform any exam. I will sign off. Objective Data Date Time Temp Pulse Resp B/P Pulse Ox O2 Delivery O2 Flow Rate FiO2 12/23/16 04:00 97.2 65 17 117/75 96 12/22/16 23:48 97.9 64 19 127/70 97 12/22/16 21:33 96.9 83 18 101/61 94 12/22/16 21:15 96.5 83 18 106/68 95 12/22/16 20:00 98.7 79 16 107/60 93 12/22/16 16:00 98.0 83 14 114/78 92 12/22/16 11:21 88 16 102/63 92 12/22/16 11:19 20 Result Diagram: 12/23/16 0410 12/23/16 0410 Laboratory Results Laboratory Tests Test 12/22/16 12/22/16 12/23/16 10:45 15:40 04:10 White Blood Count 8.3 TH/MM3 9.7 TH/MM3 Red Blood Count 2.22 MIL/MM3 3.06 MIL/MM3 Hemoglobin 6.7 GM/DL 9.4 GM/DL Hematocrit 18.6 % 25.8 % Mean Corpuscular Volume 83.8 FL 84.5 FL Mean Corpuscular Hemoglobin 30.1 PG 30.8 PG Mean Corpuscular Hemoglobin 35.9 % 36.4 % Concent Red Cell Distribution Width 22.2 % 21.0 % Platelet Count 301 TH/MM3 351 TH/MM3 Mean Platelet Volume 8.1 FL 8.6 FL Neutrophils (%) (Auto) 51.6 % Lymphocytes (%) (Auto) 33.1 % Monocytes (%) (Auto) 11.7 % Eosinophils (%) (Auto) 2.7 % Basophils (%) (Auto) 0.9 % Neutrophils # (Auto) 4.3 TH/MM3 Lymphocytes # (Auto) 2.7 TH/MM3 Monocytes # (Auto) 1.0 TH/MM3 Eosinophils # (Auto) 0.2 TH/MM3 Basophils # (Auto) 0.1 TH/MM3 CBC Comment AUTO DIFF Differential Total Cells 100 Counted Neutrophils % (Manual) 59 % Band Neutrophils % 1 % Lymphocytes % 34 % Monocytes % 5 % Eosinophils % 1 % Neutrophils # (Manual) 5.0 TH/MM3 Nucleated Red Blood Cells 10 /100 WBC Differential Comment FINAL DIFF MANUAL Platelet Estimate NORMAL Platelet Morphology Comment NORMAL Polychromasia 3.8 % Sickle Cells 2+ Fields-Woodall Bodies PRESENT Sodium Level 143 MEQ/L 140 MEQ/L Potassium Level 4.2 MEQ/L 4.2 MEQ/L Chloride Level 111 MEQ/L 107 MEQ/L Carbon Dioxide Level 26.4 MEQ/L 28.6 MEQ/L Anion Gap 6 MEQ/L 4 MEQ/L Blood Urea Nitrogen 3 MG/DL 4 MG/DL Creatinine 0.51 MG/DL 0.50 MG/DL Estimat Glomerular Filtration 168 ML/MIN 172 ML/MIN Rate Random Glucose 87 MG/DL 88 MG/DL Calcium Level 8.1 MG/DL 8.4 MG/DL Magnesium Level 1.7 MG/DL Total Bilirubin 2.3 MG/DL 2.2 MG/DL Aspartate Amino Transf 58 U/L (AST/SGOT) Alanine Aminotransferase 13 U/L (ALT/SGPT) Alkaline Phosphatase 86 U/L Total Protein 7.1 GM/DL Albumin 3.0 GM/DL Blood Type B POSITIVE Antibody Screen NEGATIVE Crossmatch Leukocyte-Reduced Red Blood Cells Blood Bank Comment Ferritin 466 NG/ML Direct Bilirubin 0.4 MG/DL Indirect Bilirubin 1.8 MG/DL Lactate Dehydrogenase 1018 U/L Administered Medications Medications (Trade) Dose Ordered Sig/Marielle Route PRN Reason Start Time Stop Time Status Last Admin Dose Admin Sodium Chloride (NS Flush) 2 ml BID IV FLUSH 12/21/16 21:00 12/21/16 20:29 Senna/Docusate Sodium (Leticia-Colace) 1 tab BID PO 12/21/16 21:00 12/22/16 11:06 Hydromorphone HCl 1 mg 1 mg Q3H PRN IV BREAKTHROUGH PAIN 12/21/16 18:15 12/22/16 15:29 Potassium Chloride/Sodium Chloride (NS + KCl 40 Meq Inj) 1,000 ml @ 150 mls/hr Q6H40M IV 12/22/16 04:45 12/23/16 04:15 Folic Acid (Folate) 1 mg DAILY PO 12/22/16 09:00 12/22/16 11:06 Diphenhydramine HCl (Benadryl Inj) 25 mg Q4H PRN IV PUSH PAIN SCALE 1 TO 10 12/22/16 10:00 12/23/16 04:09 Hydromorphone HCl (Dilaudid Pf Inj) 1 mg Q3H PRN IV PUSH PAIN3-10 12/22/16 19:45 12/23/16 04:09 Objective Remarks GENERAL: Well-nourished, well-developed patient. SKIN: Warm and dry. HEAD: Normocephalic. EYES: No scleral icterus. No injection or drainage. NECK: Supple, trachea midline. No JVD or lymphadenopathy. LYMPHATIC: No adenopathy. CARDIOVASCULAR: Regular rate and rhythm without murmurs. RESPIRATORY: Breath sounds equal bilaterally. No accessory muscle use. GASTROINTESTINAL: Abdomen soft, non-tender, nondistended. EXTREMITIES: No cyanosis, or edema. MUSCULOSKELETAL: Adequate muscle tone. NEUROLOGICAL: No obvious focal deficit. Awake, alert, and oriented x3. PSYCHIATRIC: Appropriate mood and affect; insight and judgment normal. Juan Perez MD Dec 23, 2016 08:14
[2016-12-23] MEDS: FOLIC ACID 1 MG TAB PO SCH (08:43)
[2016-12-23] MEDS: SODIUM CHLORIDE 0.9% FLUSH 10 ML FLUSH IV FLUSH SCH ×2 (08:44→23:59)
[2016-12-23] MEDS: HEPARIN SODIUM - SQ 10,000 UNITS/ML VIAL SQ SCH ×3 (08:44→20:13)
[2016-12-23] MEDS: DOCUSATE SODIUM 50 MG/SENNA 8.6 MG TAB PO SCH ×2 (08:44→20:05)
--- NOTE | 2016-12-23 09:47 | HHI.FPPN ---
Subjective Remarks Patient states that she is doing better this morning. She says that the pain in her chest has resolved, but she is still having pain in her back and legs. Her current pain is an 8 out of 10. She feels that the Dilaudid is helping and thinks that she may be able to go home tomorrow. She does not want to stay for more than 3 days. She does not expect to for her pain to fully go away, but to be manageable so she can return home. (Carmel Patricio MD R1) Objective Vitals Vital Signs Date Time Temp Pulse Resp B/P Pulse Ox O2 Delivery O2 Flow Rate FiO2 12/23/16 08:00 99.0 76 16 117/78 96 12/23/16 04:00 97.2 65 17 117/75 96 12/22/16 23:48 97.9 64 19 127/70 97 12/22/16 21:33 96.9 83 18 101/61 94 12/22/16 21:15 96.5 83 18 106/68 95 12/22/16 20:00 98.7 79 16 107/60 93 12/22/16 16:00 98.0 83 14 114/78 92 12/22/16 11:21 88 16 102/63 92 12/22/16 11:19 20 I/O 12/22/16 12/22/16 12/22/16 12/23/16 12/23/16 12/23/16 07:00 15:00 23:00 07:00 15:00 23:00 Intake Total 450 ml 480 ml 480 ml Balance 450 ml 480 ml 480 ml Intake Oral 450 ml 480 ml 480 ml # Voids 4 3 # Bowel Movements 2 1 # Sanitary Pads 3 Pads (Carmel Patricio MD R1) Result Diagram: 12/23/1640912/23/160 Objective Remarks O. CONSTITUTIONAL/GEN: normally nourished, in NAD. EYES: conjunctiva normal, PERRLA, EOMI. ENT: Mouth and pharynx normal. NECK: thyroid midline, carotids symmetrical. LUNGS: clear A-P, respiratory effort is normal. CARDIOVASCULAR: RR without murmur or gallop. No significant edema. GI/ABD: soft without masses, without organomegaly. NEURO: No focal deficits. SKIN: color normal, no rashes noted. HEME/LYMPH: no bruising, petechia or significant adenopathy MUSC: back is normal in appearance. Extremities are normal in appearance. PSYCH/MENTAL STATUS: Alert and oriented x 3. (Carmel Patricio MD R1) A/P Assessment and Plan Patient is a 42-ovwa-vfj-[place]inamese female with past history significant for sickle cell disease presenting to the ED due to a pain crisis. Discharge Planning Plan to discharge once pain is under control and hemoglobin is stable. (Carmel Patricio MD R1) Attending Attestation Patient seen and examined. Case reviewed and discussed with the resident team. Agree with plan of care as discussed with me and documented in the resident note. (Anthony Berry MD) Problem List: (1) Sickle cell pain crisis Status: Acute Plan: Patient with history of sickle cell disease reports acute pain crisis. Patient is afebrile and vital signs are stable. Patient has had 8 visits to the ED over the past 2 months due to pain crises. -Hemoglobin currently at 9.4 s/p transfusion. -Continue to monitor H&H -Will monitor trend of bilirubin and LDH per Heme recs -See fluids below -[place] [id number] prn pain 3-5, [place] 5325 prn pain 6-10 -Dilaudid 1 mg IV Q3hrs prn breakthrough -Benadryl prn Itching -Continue home folate -Consider chest x-ray if patient becomes febrile to evaluate for acute chest syndrome (2) FEN/PPX Status: Acute Plan: Fluids: Normal saline with KCl at 100mls/hr Electrolytes: Hypokalemia resolved, will continue to monitor. Nutrition: Regular diet DVT PPX: Heparin, scds/tessie rahmane (Carmel Patricio MD R1) Carmel Patricio MD R1 Dec 23, 2016 09:47 Anthony Berry MD Dec 24, 2016 10:24
[2016-12-23 13:00] VITALS: BP 123/76; PULSE 71; RESP 16; TEMP 98.2; O2SAT 95
[2016-12-23 14:12] LABS: AUTOMATED NEUTROPHIL # 3.2 TH/MM3 (1.8-7.7); BASOPHIL # 0.1 TH/MM3 (0-0.2); BASOPHIL % 0.8 % (0.0-2.0); EOSINOPHIL # 0.7 TH/MM3 (0-0.4); EOSINOPHIL % 8.7 % (0.0-4.0); HEMATOCRIT 25.6 % (35.0-46.0); LYMPH % 44.7 % (9.0-44.0); LYMPHOCYTE # 3.8 TH/MM3 (1.0-4.8); MEAN CELL VOLUME 85.2 FL (80.0-100.0); MEAN CORPUSCULAR HGB CONC 35.3 % (32.0-36.0); MONO % 8.5 % (0.0-8.0); NEUT % 37.3 % (16.0-70.0); PLATELET COUNT 345 TH/MM3 (150-450); RED CELL DISTRIBUTION WIDTH 20.5 % (11.6-17.2); WHITE BLOOD COUNT 8.6 TH/MM3 (4.0-11.0)
[2016-12-23 14:17] LABS: HEMO FLAGS AUTO DIFF
[2016-12-23 14:33] LABS: ALKALINE PHOSPHATASE 87 U/L (45-117); ALT (GPT) 14 U/L (10-53); ANION GAP 6 MEQ/L (5-15); AST (GOT) 60 U/L (15-37); BICARBONATE 25.5 MEQ/L (21.0-32.0); BLOOD UREA NITROGEN 3 MG/DL (7-18); CHLORIDE 107 MEQ/L (98-107); GLOMERULAR FILTRATION RATE 210 ML/MIN (>89); INDIRECT BILIRUBIN 1.7 MG/DL (0.0-0.8); LDH SERUM 982 U/L (84-246); POTASSIUM 4.4 MEQ/L (3.5-5.1); SODIUM (NA) 138 MEQ/L (136-145)
[2016-12-23 15:36] LABS: CORRECTED NUCLEATED RBC 7 /100 WBC (0-0); EOSINOPHILS 8 % (0-4); NEUTROPHIL # MANUAL DIFF 3.3 TH/MM3 (1.8-7.7); OVALOCYTES 2+ (NORMAL); PLATELET ESTIMATE SMEAR NORMAL (NORMAL); PLATELET MORPHOLOGY NORMAL (NORMAL); POLYS (SEG NEUTROPHILS) 38 % (16-70); SCAN/DIFF FINAL DIFF MANUAL; SICKLE CELLS 2+ (NORMAL); TARGET CELLS 1+ (NORMAL); WBC DIFF SAMPLE 100
[2016-12-23 16:00] VITALS: BP 110/68; PULSE 81; RESP 18; TEMP 98.5; O2SAT 96
[2016-12-23] MEDS: HYDROmorphone HCL PF 1 MG/ML VIAL IV PRN ×3 (16:03→23:59)
[2016-12-23 20:00] VITALS: BP 119/68; PULSE 75; RESP 18; TEMP 98.9; O2SAT 96
[2016-12-24 04:00] VITALS: BP 114/68; PULSE 71; RESP 18; TEMP 97.7; O2SAT 97
[2016-12-24] MEDS: NS + KCL 40 MEQ INJ 1,000 ML IV SCH ×5 (04:13→22:21)
[2016-12-24] MEDS: HYDROmorphone HCL PF 1 MG/ML VIAL IV PRN ×2 (04:14→20:43)
[2016-12-24] MEDS: diphenhydrAMINE HCL 50 MG/ML VIAL IV PUSH PRN ×5 (04:15→20:41)
[2016-12-24 04:51] LABS: AUTOMATED NEUTROPHIL # 2.8 TH/MM3 (1.8-7.7); BASOPHIL # 0.1 TH/MM3 (0-0.2); BASOPHIL % 1.2 % (0.0-2.0); EOSINOPHIL # 0.9 TH/MM3 (0-0.4); EOSINOPHIL % 10.2 % (0.0-4.0); HEMATOCRIT 27.4 % (35.0-46.0); LYMPH % 45.8 % (9.0-44.0); LYMPHOCYTE # 3.9 TH/MM3 (1.0-4.8); MEAN CORPUSCULAR HEMOGLOBIN 30.1 PG (27.0-34.0); MEAN CORPUSCULAR HGB CONC 35.4 % (32.0-36.0); NEUT % 32.8 % (16.0-70.0); PLATELET COUNT 355 TH/MM3 (150-450); RED BLOOD COUNT 3.22 MIL/MM3 (4.00-5.30); RED CELL DISTRIBUTION WIDTH 20.6 % (11.6-17.2); WHITE BLOOD COUNT 8.5 TH/MM3 (4.0-11.0)
[2016-12-24 04:56] LABS: HEMO FLAGS AUTO DIFF
[2016-12-24 05:08] LABS: ALT (GPT) 16 U/L (10-53)
[2016-12-24 05:23] LABS: ALKALINE PHOSPHATASE 92 U/L (45-117); ANION GAP 4 MEQ/L (5-15); AST (GOT) 57 U/L (15-37); BICARBONATE 28.4 MEQ/L (21.0-32.0); BLOOD UREA NITROGEN 7 MG/DL (7-18); CHLORIDE 107 MEQ/L (98-107); GLOMERULAR FILTRATION RATE 172 ML/MIN (>89); INDIRECT BILIRUBIN 1.9 MG/DL (0.0-0.8); LDH SERUM 992 U/L (84-246); POTASSIUM 4.3 MEQ/L (3.5-5.1); SODIUM (NA) 139 MEQ/L (136-145); TOTAL BILIRUBIN ADULT 2.3 MG/DL (0.2-1.0)
[2016-12-24 08:00] VITALS: BP 106/67; PULSE 65; RESP 16; TEMP 98.2; O2SAT 95
[2016-12-24] MEDS: FOLIC ACID 1 MG TAB PO SCH (08:02)
[2016-12-24] MEDS: DOCUSATE SODIUM 50 MG/SENNA 8.6 MG TAB PO SCH ×2 (08:02→20:43)
[2016-12-24] MEDS: SODIUM CHLORIDE 0.9% FLUSH 10 ML FLUSH IV FLUSH SCH ×2 (08:03→20:40)
[2016-12-24 08:10] LABS: BANDS 1 % (0-6); BASOPHILS 1 % (0-2); CORRECTED NUCLEATED RBC 4 /100 WBC (0-0); EOSINOPHILS 10 % (0-4); METAMYELOCYTES 1 % (0-1); NEUTROPHIL # MANUAL DIFF 5.5 TH/MM3 (1.8-7.7); POLYS (SEG NEUTROPHILS) 63 % (16-70); WBC DIFF SAMPLE 100
[2016-12-24] MEDS: HEPARIN SODIUM - SQ 10,000 UNITS/ML VIAL SQ SCH ×2 (08:10→20:41)
[2016-12-24] MEDS: HYDROmorphone HCL PF 1 MG/ML VIAL IV PUSH PRN ×3 (08:10→16:19)
[2016-12-24 08:11] LABS: OVALOCYTES 2+ (NORMAL); SICKLE CELLS 3+ (NORMAL); TARGET CELLS 1+ (NORMAL)
[2016-12-24 08:12] LABS: PLATELET ESTIMATE SMEAR NORMAL (NORMAL); PLATELET MORPHOLOGY NORMAL (NORMAL); SCAN/DIFF FINAL DIFF MANUAL
[2016-12-24] MEDS ORDERED: HYDR-3535 PO (08:31)
--- NOTE | 2016-12-24 09:14 | HHI.FPPN ---
Subjective Remarks Patient seen and examined this morning. No acute events overnight. States pain is improving this morning. Pain is still in legs and back. No new pain. Rates pain as 7/10. Would like to possibly go home later this afternoon. Denies any fever/chills, chest pain, SOB, abdominal pain. (Desean Doty MD, R2) Objective Vitals Vital Signs Date Time Temp Pulse Resp B/P Pulse Ox O2 Delivery O2 Flow Rate FiO2 12/24/16 04:44 16 12/24/16 04:00 97.7 71 18 114/68 97 12/23/16 20:00 98.9 75 18 119/68 96 12/23/16 16:00 98.5 81 18 110/68 96 12/23/16 13:00 98.2 71 16 123/76 95 I/O 12/23/16 12/23/16 12/23/16 12/24/16 12/24/16 12/24/16 07:00 15:00 23:00 07:00 15:00 23:00 Intake Total 480 ml 1560 ml 720 ml Balance 480 ml 1560 ml 720 ml Intake Oral 480 ml 1560 ml 720 ml # Voids 3 8 3 # Bowel Movements 1 1 # Sanitary Pads 3 Pads 3 Pads (Desean Doty MD, R2) Result Diagram: 12/24/1640912/24/16409 Objective Remarks CONSTITUTIONAL/GEN: Lying in bed, no acute distress LUNGS: clear A-P, respiratory effort is normal. CARDIOVASCULAR: RR without murmur or gallop. GI/ABD: soft without masses, without organomegaly. NEURO: No focal deficits. EXT: No edema. no calf pain MUSC: back is normal in appearance. Extremities are normal in appearance. PSYCH/MENTAL STATUS: Alert and oriented x 3. (Desean Doty MD, R2) A/P Assessment and Plan Patient is a 47-vuak-fbn-[place] female with past history significant for sickle cell disease presenting to the ED due to a pain crisis. Admitted for pain control and to stabilize hemoglobin levels. Discharge Planning Plan to discharge once pain is under control and hemoglobin is stable, possibly later today (Desean Doty MD, R2) Attending Attestation Patient seen and examined. Case reviewed and discussed with the resident team. Agree with plan of care as discussed with me and documented in the resident note. (Anthony Berry MD) Problem List: (1) Sickle cell pain crisis Status: Acute Plan: Patient with history of sickle cell disease reports acute pain crisis. Patient is afebrile and vital signs are stable. Patient has had 8 visits to the ED over the past 2 months due to pain crises. Hemoglobin stable, s/p 1 unit pRBC on 12/22 Consider chest x-ray if patient becomes febrile to evaluate for acute chest syndrome -Continue to monitor H&H -Will monitor trend of bilirubin and LDH per Heme recs -See fluids below Meds -Dilaudid 1 mg IV Q3hrs prn pain 3-10 & for breakthrough -Benadryl prn Itching -Continue home folate (2) FEN/PPX Status: Acute Plan: Fluids: Normal saline with KCl at 100mls/hr Electrolytes: wnl, continue to monitor Nutrition: Regular diet DVT PPX: Heparin, scds/tessie hose (Desean Doty MD, R2) Desean Doty MD, R2 Dec 24, 2016 09:14 Anthony Berry MD Dec 24, 2016 10:28
[2016-12-24 12:00] VITALS: BP 112/62; PULSE 67; RESP 18; TEMP 98.6; O2SAT 96
--- NOTE | 2016-12-24 14:18 | HHI.DCPOC ---
Discharge Care Plan Diagnosis: (1) Hypokalemia, excessive renal losses (2) Sickle cell crisis Goals to Promote Your Health * To prevent worsening of your condition and complications * To maintain your health at the optimal level Directions to Meet Your Goals Take your medications as prescribed Follow your dietary instruction Follow activity as directed Keep your appointments as scheduled Take your immunizations and boosters as scheduled If your symptoms worsen call your PCP, if no PCP go to Urgent Care Center or Emergency Room Smoking is Dangerous to Your Health. Avoid second hand smoke Call the 24-hour hour crisis hotline for domestic abuse at Carmel Patricio MD R1 Dec 24, 2016 14:18
--- NOTE | 2016-12-24 14:29 | HHI.DS ---
Discharge Summary Admission Date Dec 22, 2016 at 13:06 Discharge Date: Dec 24, 2016 Admitting Diagnosis sickle cell pain crisis, hypokalemia (1) Sickle cell pain crisis Diagnosis: Principal Plan: Patient with history of sickle cell disease reports acute pain crisis. Patient is afebrile and vital signs are stable. Patient has had 8 visits to the ED over the past 2 months due to pain crises. Hemoglobin stable, s/p 1 unit pRBC on 12/22 Consider chest x-ray if patient becomes febrile to evaluate for acute chest syndrome -Continue to monitor H&H -Will monitor trend of bilirubin and LDH per Heme recs -See fluids below Meds -Dilaudid 1 mg IV Q3hrs prn pain 3-10 & for breakthrough -Benadryl prn Itching -Continue home folate (2) FEN/PPX Diagnosis: Secondary Plan: Fluids: Normal saline with KCl at 100mls/hr Electrolytes: wnl, continue to monitor Nutrition: Regular diet DVT PPX: Heparin, scds/tessie [facility] Procedures Transfusion pRBCs Brief History Pt is a 31 year old female with past medical history significant for sickle cell disease presenting due to an acute pain crisis. Patient was brought to the ED via [facility]. She reports that while she was getting dressed earlier this morning she started to feel hot. She proceeded to get in the shower and felt as if she was going to faint. She stepped out of the shower to go lay down and started to have severe pain in her back and lower extremities. She was not able to walk and fell to the ground due to pain. No injury sustained. She reports that pain in her legs and back is a 10 out of 10 in intensity. She endorses lower abdominal pain which she attributes to her menstrual period. She reports that her brineyard supervisor is Dr. Rivas, she last saw him several weeks ago. She reports that her hemoglobin normally ranges from 89. She denies any chest pain, shortness of breath. CBC/BMP: 12/24/16 0410 12/24/16 0410 Significant Findings Laboratory Tests Test 12/21/16 12/22/16 12/23/16 12/23/16 15:50 10:45 04:10 12:30 White Blood Count 12.2 TH/MM3 (4.0-11.0) Red Blood Count 2.67 MIL/MM3 2.22 MIL/MM3 3.06 MIL/MM3 3.00 MIL/MM3 (4.00-5.30) (4.00-5.30) (4.00-5.30) (4.00-5.30) Hemoglobin 8.2 GM/DL 6.7 GM/DL 9.4 GM/DL 9.0 GM/DL (11.6-15.3) (11.6-15.3) (11.6-15.3) (11.6-15.3) Hematocrit 22.3 % 18.6 % 25.8 % 25.6 % (35.0-46.0) (35.0-46.0) (35.0-46.0) (35.0-46.0) Mean Corpuscular Hemoglobin 36.8 % 36.4 % Concent (32.0-36.0) (32.0-36.0) Red Cell Distribution Width 21.6 % 22.2 % 21.0 % 20.5 % (11.6-17.2) (11.6-17.2) (11.6-17.2) (11.6-17.2) Sickle Cells 2+ (NORMAL) 2+ (NORMAL) 2+ (NORMAL) Reticulocyte Count 7.8 % (0.4-3.0) Absolute Reticulocyte Count 206.8 MIL/L (20.0-150.0) Potassium Level 2.5 MEQ/L (3.5-5.1) Blood Urea Nitrogen 5 MG/DL (7-18) 3 MG/DL (7-18) 4 MG/DL (7-18) 3 MG/DL (7-18) Random Glucose 162 MG/DL (74-106) Monocytes (%) (Auto) 11.7 % 8.5 % (0.0-8.0) (0.0-8.0) Monocytes # (Auto) 1.0 TH/MM3 (0-0.9) Nucleated Red Blood Cells 10 /100 WBC 7 /100 WBC (0-0) (0-0) Polychromasia 3.8 % (0.0-1.9) Chloride Level 111 MEQ/L (98-107) Calcium Level 8.1 MG/DL 8.4 MG/DL 8.2 MG/DL (8.5-10.1) (8.5-10.1) (8.5-10.1) Total Bilirubin 2.3 MG/DL 2.2 MG/DL 2.0 MG/DL (0.2-1.0) (0.2-1.0) (0.2-1.0) Aspartate Amino Transf 58 U/L (15-37) 60 U/L (15-37) (AST/SGOT) Albumin 3.0 GM/DL 3.1 GM/DL (3.4-5.0) (3.4-5.0) Anion Gap 4 MEQ/L (5-15) Ferritin 466 NG/ML (8-252) Direct Bilirubin 0.4 MG/DL 0.3 MG/DL (0.0-0.2) (0.0-0.2) Indirect Bilirubin 1.8 MG/DL 1.7 MG/DL (0.0-0.8) (0.0-0.8) Lactate Dehydrogenase 1018 U/L 982 U/L (84-246) (84-246) Lymphocytes (%) (Auto) 44.7 % (9.0-44.0) Eosinophils (%) (Auto) 8.7 % (0.0-4.0) Eosinophils # (Auto) 0.7 TH/MM3 (0-0.4) Lymphocytes % 46 % (9-44) Eosinophils % 8 % (0-4) Target Cells 1+ (NORMAL) Ovalocytes 2+ (NORMAL) Creatinine 0.42 MG/DL (0.50-1.00) Test 12/24/16 04:10 Red Blood Count 3.22 MIL/MM3 (4.00-5.30) Hemoglobin 9.7 GM/DL (11.6-15.3) Hematocrit 27.4 % (35.0-46.0) Red Cell Distribution Width 20.6 % (11.6-17.2) Lymphocytes (%) (Auto) 45.8 % (9.0-44.0) Monocytes (%) (Auto) 10.0 % (0.0-8.0) Eosinophils (%) (Auto) 10.2 % (0.0-4.0) Eosinophils # (Auto) 0.9 TH/MM3 (0-0.4) Eosinophils % 10 % (0-4) Nucleated Red Blood Cells 4 /100 WBC (0-0) Sickle Cells 3+ (NORMAL) Target Cells 1+ (NORMAL) Ovalocytes 2+ (NORMAL) Anion Gap 4 MEQ/L (5-15) Calcium Level 8.2 MG/DL (8.5-10.1) Total Bilirubin 2.3 MG/DL (0.2-1.0) Direct Bilirubin 0.4 MG/DL (0.0-0.2) Indirect Bilirubin 1.9 MG/DL (0.0-0.8) Aspartate Amino Transf 57 U/L (15-37) (AST/SGOT) Lactate Dehydrogenase 992 U/L (84-246) Albumin 3.3 GM/DL (3.4-5.0) PE at Discharge CONSTITUTIONAL/GEN: Lying in bed, no acute distress LUNGS: clear A-P, respiratory effort is normal. CARDIOVASCULAR: RR without murmur or gallop. GI/ABD: soft without masses, without organomegaly. NEURO: No focal deficits. EXT: No edema. no calf pain MUSC: back is normal in appearance. Extremities are normal in appearance. PSYCH/MENTAL STATUS: Alert and oriented x 3. Hospital Course Ms. Ching is a 31yo female with a past medical history of sickle cell disease who was came to the ED with acute pain in her back and lower extremities. She was diagnosed with sickle cell pain crisis. Her initial hemoglobin was 8.2, but after getting IV fluids it decreased to 6.7. She was transfused one unit of packed RBCs after which her hemoglobin increased to 9.4 and stabilized. Her pain was controlled with IV Dilaudid. She is being discharged home in stable condition. She is to follow up with her PCP and brineyard supervisor within one week. Pt Condition on Discharge: Stable Discharge Disposition: Discharge Home Discharge Instructions DIET: Follow Instructions for: As Tolerated, No Restrictions Activities you can perform: Regular-No Restrictions Follow up Referrals: Hematology - 1 Week PCP Follow-up - 1 Week Continued Medications: Folic Acid (Folic Acid) 400 Mcg Tab 400 MCG PO DAILY Nutritional Supplement Ref 0 TAB Hydrocodone-Acetaminophen (Lortab) 10-325 Mg Tab 1 TAB PO Q4H PRN PAIN #30 Ref 0 TAB (This prescription has been renewed) Carmel Patricio MD R1 Dec 24, 2016 14:29
[2016-12-24 16:00] VITALS: BP 103/70; PULSE 79; RESP 18; TEMP 98; O2SAT 96
[2016-12-24 20:00] VITALS: BP 99/66; PULSE 79; RESP 16; TEMP 99; O2SAT 97
[2016-12-25] VITALS: BP 126/65; PULSE 86; RESP 16; TEMP 86; O2SAT 94
[2016-12-25] MEDS: diphenhydrAMINE HCL 50 MG/ML VIAL IV PUSH PRN ×6 (00:17→21:20)
[2016-12-25] MEDS: HYDROmorphone HCL PF 1 MG/ML VIAL IV PUSH PRN ×5 (00:18→16:06)
[2016-12-25 04:00] VITALS: BP 102/71; PULSE 79; RESP 16; TEMP 98.5; O2SAT 94
[2016-12-25] MEDS: HEPARIN SODIUM - SQ 10,000 UNITS/ML VIAL SQ SCH ×2 (07:51→20:30)
[2016-12-25] MEDS: DOCUSATE SODIUM 50 MG/SENNA 8.6 MG TAB PO SCH ×2 (07:51→20:30)
[2016-12-25] MEDS: FOLIC ACID 1 MG TAB PO SCH (07:51)
[2016-12-25] MEDS: SODIUM CHLORIDE 0.9% FLUSH 10 ML FLUSH IV FLUSH SCH ×2 (07:52→20:31)
[2016-12-25 08:00] VITALS: BP 107/78; PULSE 73; RESP 18; TEMP 98.3; O2SAT 97
--- NOTE | 2016-12-25 09:13 | HHI.FPPN ---
Subjective Remarks Pt states that she is feeling better this AM. She feels that she will be able to go home this evening before dinner. Her pain is still 7/10, but just in her back and knees. No fever/chills, nausea/vomiting, no abdominal pain. (Carmel Patricio MD R1) Objective Vitals Vital Signs Date Time Temp Pulse Resp B/P Pulse Ox O2 Delivery O2 Flow Rate FiO2 12/25/16 08:00 98.3 73 18 107/78 97 12/25/16 04:00 98.5 79 16 102/71 94 12/25/16 00:00 86.0 86 16 126/65 94 12/24/16 20:00 99.0 79 16 99/66 97 12/24/16 16:00 98.0 79 18 103/70 96 12/24/16 12:00 98.6 67 18 112/62 96 I/O 12/24/16 12/24/16 12/24/16 12/25/16 12/25/16 12/25/16 07:00 15:00 23:00 07:00 15:00 23:00 Intake Total 720 ml 829 ml 460 ml 450 ml Output Total 800 ml Balance 720 ml 829 ml -340 ml 450 ml Intake Oral 720 ml 460 ml 450 ml IV Total 829 ml Output Urine Total 800 ml # Voids 3 2 # Bowel Movements 0 0 (Carmel Patricio MD R1) Result Diagram: 12/24/1640912/24/16409 Objective Remarks CONSTITUTIONAL/GEN: Lying in bed, no acute distress LUNGS: clear A-P, respiratory effort is normal. CARDIOVASCULAR: RR without murmur or gallop. GI/ABD: soft without masses, nontender, without organomegaly. NEURO: No focal deficits. EXT: No edema. no calf pain MUSC: back is normal in appearance. Extremities are normal in appearance. PSYCH/MENTAL STATUS: Alert and oriented x 3. Procedures 1x Transfusion pRBCs (Carmel Patricio MD R1) A/P Assessment and Plan Patient is a 17-xvga-eao-[place]ian female with past history significant for sickle cell disease presenting to the ED due to a pain crisis. Admitted for pain control and to stabilize hemoglobin levels. Discharge Planning Plan to discharge today since pain is under control and hemoglobin is stable. ( Carmel Patricio MD R1) Attending Attestation Patient seen and examined. Case reviewed and discussed with the resident team. Agree with plan of care as discussed with me and documented in the resident note. (Anthony Berry MD) Problem List: (1) Sickle cell pain crisis Status: Acute Plan: Patient with history of sickle cell disease reports acute pain crisis. Patient is afebrile and vital signs are stable. Patient has had 8 visits to the ED over the past 2 months due to pain crises. Hemoglobin stable, s/p 1 unit pRBC on 12/22 Consider chest x-ray if patient becomes febrile to evaluate for acute chest syndrome -Continue to monitor H&H -Will monitor trend of bilirubin and LDH per Heme recs -See fluids below Meds -Dilaudid 1 mg IV Q3hrs prn pain 3-10 & for breakthrough -Benadryl prn Itching -Continue home folate (2) FEN/PPX Status: Acute Plan: Fluids: Normal saline with KCl at 100mls/hr Electrolytes: wnl, continue to monitor Nutrition: Regular diet DVT PPX: Heparin, scds/tessie hose (Carmel Patricio MD R1) Carmel Patricio MD R1 Dec 25, 2016 09:13 Anthony Berry MD Dec 25, 2016 16:02
[2016-12-25 12:00] VITALS: BP 104/66; PULSE 90; RESP 18; TEMP 98; O2SAT 95
[2016-12-25] MEDS: NS + KCL 40 MEQ INJ 1,000 ML IV SCH ×2 (14:18→20:30)
--- NOTE | 2016-12-25 19:15 | HHI.PR ---
Addendum to Inpatient Note Addendum Reason: Additional Documentation Additional Information Got a page from the nurse at 6pm about patient still having 8/10 and not wanting to go home. Went to see patient with Dr. Doty. Explained to her about the risks of nosocomial infections from prolonged hospital stay, especially for a patient with sickle cell disease. She stated that she wanted her pain to be at a 5/10 and she was currently at a 7. We decided to start her back on her at home Lortab medication with IV Dilaudid for breakthrough pain. Will reassess patient in the morning. Carmel Patricio MD R1 Dec 25, 2016 19:15
[2016-12-25 20:00] VITALS: BP 110/73; PULSE 85; RESP 16; TEMP 98.8; O2SAT 93
[2016-12-25] MEDS: ACETAMINOPHEN/HYDROcodone 325 MG/10 MG TAB PO SCH ×2 (20:29→23:03)
[2016-12-25 21:09] LABS: MEAN CORPUSCULAR HGB CONC 36.2 % (32.0-36.0)
[2016-12-25] MEDS: HYDROmorphone HCL PF 1 MG/ML VIAL IV PRN (21:20)
[2016-12-26] VITALS: BP 99/66; PULSE 87; RESP 16; TEMP 98.4; O2SAT 94
[2016-12-26] MEDS: HYDROmorphone HCL PF 1 MG/ML VIAL IV PRN ×5 (00:53→17:43)
[2016-12-26] MEDS: diphenhydrAMINE HCL 50 MG/ML VIAL IV PUSH PRN ×4 (00:54→17:43)
[2016-12-26] MEDS: ACETAMINOPHEN/HYDROcodone 325 MG/10 MG TAB PO SCH ×4 (02:45→15:32)
[2016-12-26] MEDS: NS + KCL 40 MEQ INJ 1,000 ML IV SCH ×3 (03:38→16:58)
[2016-12-26 04:00] VITALS: BP_SYST 86; BP_SYST 98; BP_DIAS 52; BP_DIAS 64; PULSE 80; RESP 16; TEMP 97.5; O2SAT 92
[2016-12-26 05:36] LABS: AUTOMATED NEUTROPHIL # 3.8 TH/MM3 (1.8-7.7); BASOPHIL # 0.1 TH/MM3 (0-0.2); BASOPHIL % 0.7 % (0.0-2.0); EOSINOPHIL # 0.6 TH/MM3 (0-0.4); EOSINOPHIL % 6.7 % (0.0-4.0); HEMATOCRIT 27.4 % (35.0-46.0); LYMPH % 41.7 % (9.0-44.0); LYMPHOCYTE # 3.9 TH/MM3 (1.0-4.8); MEAN CORPUSCULAR HEMOGLOBIN 30.4 PG (27.0-34.0); MONO % 10.2 % (0.0-8.0); NEUT % 40.7 % (16.0-70.0); PLATELET COUNT 287 TH/MM3 (150-450); RED BLOOD COUNT 3.26 MIL/MM3 (4.00-5.30); RED CELL DISTRIBUTION WIDTH 20.7 % (11.6-17.2); RETIC % 3.4 % (0.4-3.0); WHITE BLOOD COUNT 9.4 TH/MM3 (4.0-11.0)
[2016-12-26 05:38] LABS: HEMO FLAGS AUTO DIFF; REVIEW FLAG FINAL
[2016-12-26 05:39] VITALS: BP 115/69
[2016-12-26 06:09] LABS: BANDS 2 % (0-6); BASOPHILS 2 % (0-2); CORRECTED NUCLEATED RBC 6 /100 WBC (0-0); EOSINOPHILS 6 % (0-4); HOWELL-JOLLY BODIES PRESENT (NONE SEEN); NEUTROPHIL # MANUAL DIFF 4.3 TH/MM3 (1.8-7.7); OVALOCYTES 1+ (NORMAL); PLATELET ESTIMATE SMEAR NORMAL (NORMAL); PLATELET MORPHOLOGY NORMAL (NORMAL); POLYS (SEG NEUTROPHILS) 44 % (16-70); SCAN/DIFF FINAL DIFF MANUAL; SICKLE CELLS 2+ (NORMAL); WBC DIFF SAMPLE 100
[2016-12-26 06:22] LABS: ALKALINE PHOSPHATASE 102 U/L (45-117); ALT (GPT) 16 U/L (10-53); ANION GAP 6 MEQ/L (5-15); BICARBONATE 27.9 MEQ/L (21.0-32.0); BLOOD UREA NITROGEN 9 MG/DL (7-18); CHLORIDE 100 MEQ/L (98-107); GLOMERULAR FILTRATION RATE 134 ML/MIN (>89); INDIRECT BILIRUBIN 2.1 MG/DL (0.0-0.8); LDH SERUM 1014 U/L (84-246); POTASSIUM 3.9 MEQ/L (3.5-5.1); SODIUM (NA) 134 MEQ/L (136-145); TOTAL BILIRUBIN ADULT 2.5 MG/DL (0.2-1.0)
[2016-12-26 06:23] LABS: AST (GOT) 54 U/L (15-37)
[2016-12-26] MEDS: FOLIC ACID 1 MG TAB PO SCH (08:30)
[2016-12-26 08:31] VITALS: BP 95/67; PULSE 63; RESP 18; TEMP 98; O2SAT 98
[2016-12-26] MEDS: DOCUSATE SODIUM 50 MG/SENNA 8.6 MG TAB PO SCH (08:31)
[2016-12-26] MEDS: SODIUM CHLORIDE 0.9% FLUSH 10 ML FLUSH IV FLUSH SCH (08:31)
[2016-12-26] MEDS: HEPARIN SODIUM - SQ 10,000 UNITS/ML VIAL SQ SCH (08:31)
[2016-12-26 09:33] VITALS: BP 118/83; PULSE 108
--- NOTE | 2016-12-26 10:51 | HHI.FPPN ---
Subjective Remarks Pt states that she is feeling the same this morning. Her pain is 7/10 in her back and legs. She states that even though she is not feeling better she will still leave to go home today. She is feeling frustrated that her pain has not subsided like it usually does. Her menstrual cycle usually lasts 3 days and have for years, but this one is prolonged with heavy bleeding. She sees Dr. Rivas in [place] for Hematology. She says that his practice does not have the means to deal with an acute pain crisis, which is why she returns to the ED often. She has been on hydroxyurea in the past, but had to discontinue because it made her sick.This morning she is having no fever/chills, no abdominal pain, no CP/SOB, no nausea/vomiting, her bowel movements are regular. (Carmel Patricio MD R1) Objective Vitals Vital Signs Date Time Temp Pulse Resp B/P Pulse Ox O2 Delivery O2 Flow Rate FiO2 12/26/16 09:33 108 118/83 12/26/16 08:31 98.0 63 18 95/67 98 Manual Cuff/Auscultation 12/26/16 05:39 115/69 12/26/16 04:00 97.5 80 16 86/52 92 98/64 12/26/16 00:00 98.4 87 16 99/66 94 12/25/16 20:00 98.8 85 16 110/73 93 12/25/16 16:36 18 12/25/16 12:00 98.0 90 18 104/66 95 I/O 12/25/16 12/25/16 12/25/16 12/26/16 12/26/16 12/26/16 06:59 14:59 22:59 06:59 14:59 22:59 Intake Total 450 ml 1080 ml 600 ml 600 ml Balance 450 ml 1080 ml 600 ml 600 ml Intake Oral 450 ml 1080 ml 600 ml 600 ml # Voids 2 2 2 3 # Bowel Movements 0 0 2 1 (Carmel Patricio MD R1) Result Diagram: 12/26/1645812/26/16458 Objective Remarks CONSTITUTIONAL/GEN: Lying in bed, no acute distress EYES: scleral icterus LUNGS: clear A-P, respiratory effort is normal. CARDIOVASCULAR: RR without murmur or gallop. GI/ABD: soft without masses, nontender, without organomegaly. NEURO: No focal deficits. EXT: No edema. no calf pain MUSC: back is normal in appearance. Extremities are normal in appearance. PSYCH/MENTAL STATUS: Alert and oriented x 3. Procedures 1x Transfusion pRBCs (Carmel Patricio MD R1) A/P Assessment and Plan Patient is a [id number] female with past history significant for sickle cell disease presenting to the ED due to a pain crisis. Admitted for pain control and to stabilize hemoglobin levels. Discharge Planning Plan to discharge today since pain is under control and hemoglobin is stable. ( Carmel Patricio MD R1) Attending Attestation Patient seen and examined. Case reviewed and discussed with the resident team. Agree with plan of care as discussed with me and documented in the resident note. (Anthony Berry MD) Problem List: (1) Sickle cell pain crisis Status: Acute Plan: Patient with history of sickle cell disease reports acute pain crisis. Patient is afebrile and vital signs are stable. Patient has had 8 visits to the ED over the past 2 months due to pain crises. Hemoglobin stable, s/p 1 unit pRBC on 12/22 Consider chest x-ray if patient becomes febrile to evaluate for acute chest syndrome -Continue to monitor H&H -Will monitor trend of bilirubin and LDH per Heme recs -See fluids below Meds -Gansevoort 325-10mg q4hrs -Dilaudid 1 mg IV Q4hrs prn pain 3-10 & for breakthrough -Benadryl prn Itching -Continue home folate (2) FEN/PPX Status: Acute Plan: Fluids: Normal saline with KCl at 100mls/hr Electrolytes: wnl, continue to monitor Nutrition: Regular diet DVT PPX: Heparin, scds/tessie hose (Carmel Patricio MD R1) Carmel Patricio MD R1 Dec 26, 2016 10:51 Anthony Berry MD Dec 26, 2016 21:23
[2016-12-26 13:30] VITALS: BP 110/74; PULSE 92; RESP 16; TEMP 98.3; O2SAT 96
== END 2016-12-26 18:37 | disposition home or self-care (01) | DRG 812 ==
LOC: NEPC 15:30 → NEDA 17:33 → NEPHCDU 18:49 → OBSVTOIN 12-22 13:06 → HOCB 12-22 16:14
PROVIDERS: ADMIT Family Medicine; ATTEND Family Medicine
PROC: 30233N1 Transfusion of Nonautologous Red Blood Cells into Peripheral Vein, Percutaneous Approach (ICD-10-PCS; principal; 2016-12-22)
DX: D57.00 Hb-SS disease with crisis, unspecified (principal); F32.9 Major depressive disorder, single episode, unspecified; E87.6 Hypokalemia; G89.29 Other chronic pain; M54.9 Dorsalgia, unspecified
CPT/HCPCS: 36430; 80048; 80053; 82247; 82248; 82728; 83615; 83735; 85007; 85025; 85027; 85044; 86850; 86900; 86901; 86920; 96361; 96374; 96375; 96376; G0378; G8987-GP; G8988-GP; J1170; J1200; J1644; J2405; J3480; J7030; J7050; P9016

== ENCOUNTER 2017-01-10 03:09 | Emergency (ER) | payer OTHER ==
[2017-01-10 03:11] VITALS: BP 126/57; PULSE 84; RESP 16; TEMP 99.1; O2SAT 95
[2017-01-10 03:55] VITALS: BP 103/57; PULSE 87; RESP 14; O2SAT 95
[2017-01-10] MEDS ORDERED: ONDANSETRON HCL 4 MG/2 ML VIAL IV PUSH ONE (04:30)
[2017-01-10] MEDS ORDERED: diphenhydrAMINE HCL 50 MG/ML VIAL IV PUSH ONE ×2 (04:30→06:00)
[2017-01-10] MEDS ORDERED: HYDROmorphone HCL PF 1 MG/ML VIAL IV PUSH ONE ×2 (04:30→06:00)
--- NOTE | 2017-01-10 04:43 | PD ---
HPI Chief Complaint: Sickle Cell Time Seen by Provider: 04:08 Travel History International Travel<30 days: No Contact w/Intl Traveler<30days: No Traveled to known affect area: No History of Present Illness HPI 31yo F with PMH of sickle cell disease presents to the ED with c/o having a sickle cell crisis. States she has her usual symptoms which include chest pain , back pain, leg pain for 2 days. Chest pain is midsternal and she states she has it every time with her crisis and it feels like her crisis. Pt is requesting pain medication with benadryl and zofran. Denies any fever, sob, vomiting, abdominal pain, focal weakness or numbness. PFSH Past Medical History Hx Anticoagulant Therapy: No Anemia: Yes Arthritis: No Asthma: No Autoimmune Disease: No Anxiety: No Depression: No Heart Rhythm Problems: No Cancer: No Cardiovascular Problems: Yes (sickle cell disease) High Cholesterol: No Chemotherapy: No Chest Pain: No Congestive Heart Failure: No COPD: No Cerebrovascular Accident: No Diabetes: No Diminished Hearing: No Endocrine: No GERD: No Genitourinary: No Headaches: Yes Hiatal Hernia: No Immune Disorder: No Insomnia: Yes Kidney Stones: Yes Musculoskeletal: No Neurologic: No Psychiatric: No Reproductive: No Respiratory: No Immunizations Current: Yes Migraines: No Pneumonia: Yes Radiation Therapy: No Renal Failure: No Seizures: No Sickle Cell Disease: Yes Sleep Apnea: No Thyroid Disease: No Ulcer: No Influenza Vaccination: No PNEUMOCCOCAL Vaccine (Year): 2 ?: Not : 2 Para: 1 Miscarriage: 1 : 0 Tubal Ligation: Yes Past Surgical History Abdominal Surgery: Yes (gallbladder removed) AICD: No Arteriovenous Shunt: No Body Medical Devices: right chest port Cardiac Surgery: No Section: Yes Cholecystectomy: Yes Ear Surgery: No Endocrine Surgery: No Eye Surgery: No Genitourinary Surgery: No Gynecologic Surgery: Yes (tubal ligation) Insulin Pump: No Joint Replacement: No Oral Surgery: Yes Pacemaker: No Thoracic Surgery: Yes (CHEST PORT ) Tonsillectomy: Yes Other Surgery: Yes (right chest port) Social History Alcohol Use: No Tobacco Use: No Substance Use: No Allergies-Medications (Allergen,Severity, Reaction): Coded Allergies: morphine (Unverified Allergy, Severe, RASH, 01/10/17) *MDRO Multi-Drug Resistant Organism (Verified Adverse Reaction, Unknown, MRSA, 01/10/17) MRSA (blood) - 12/18/2004 MRSA PCR screen NEGATIVE 08/27/16 & 09/21/16 Cleared per Infection Control Reported Meds & Prescriptions Reported Meds & Active Scripts Active Lortab (Hydrocodone-Acetaminophen) 10-325 Mg Tab 1 Tab PO Q4H PRN Reported Folic Acid 400 Mcg Tab 400 Mcg PO DAILY Review of Systems Except as stated in HPI: all other systems reviewed are Neg Physical Exam Narrative GENERAL: 31yo F in mild distress. SKIN: Focused skin assessment warm/dry. HEAD: Atraumatic. Normocephalic. EYES: Pupils equal and round. No scleral icterus. No injection or drainage. ENT: No nasal bleeding or discharge. Mucous membranes pink and moist. NECK: Trachea midline. No JVD. CARDIOVASCULAR: Regular rate and rhythm. No murmur appreciated. RESPIRATORY: No accessory muscle use. Clear to auscultation. Breath sounds equal bilaterally. GASTROINTESTINAL: Abdomen soft, non-tender, nondistended. No rebound tenderness or guarding. MUSCULOSKELETAL: No obvious deformities. No clubbing. No cyanosis. No edema. NEUROLOGICAL: Awake and alert. No obvious cranial nerve deficits. Motor grossly within normal limits. Normal speech. PSYCHIATRIC: Appropriate mood and affect; insight and judgment normal. Data Data Last Documented VS Vital Signs Date Time Temp Pulse Resp B/P (MAP) Pulse Ox O2 Delivery O2 Flow Rate FiO2 01/10/17 03:55 87 14 103/57 (72) 95 Room Air 01/10/17 03:11 99.1 Orders Orders Complete Blood Count With Diff (01/10/17 04:11) Retic Count (01/10/17 04:11) Electrocardiogram (01/10/17 ) Troponin I (01/10/17 04:30) Chest, Single Ap (01/10/17 ) Bhcg Screen Qualitative (01/10/17 04:30) Hydromorphone Pf Inj (Dilaudid Pf Inj) (01/10/17 04:30) Diphenhydramine Inj (Benadryl Inj) (01/10/17 04:30) Ondansetron Inj (Zofran Inj) (01/10/17 04:30) Sodium Chlor 0.9% 1000 Ml Inj (Ns 1000 M (01/10/17 04:45) Basic Metabolic Panel (Bmp) (01/10/17 04:30) Hydromorphone Pf Inj (Dilaudid Pf Inj) (01/10/17 06:00) Diphenhydramine Inj (Benadryl Inj) (01/10/17 06:00) Sodium Chlor 0.9% 1000 Ml Inj (Ns 1000 M (01/10/17 06:00) Potassium Chloride (Kcl) (01/10/17 06:45) Labs Laboratory Tests Test 01/10/17 04:20 White Blood Count 13.0 TH/MM3 Red Blood Count 2.47 MIL/MM3 Hemoglobin 7.7 GM/DL Hematocrit 21.2 % Mean Corpuscular Volume 85.9 FL Mean Corpuscular Hemoglobin 31.1 PG Mean Corpuscular Hemoglobin Concent 36.2 % Red Cell Distribution Width 20.8 % Platelet Count 285 TH/MM3 Mean Platelet Volume 8.5 FL Neutrophils (%) (Auto) 46.3 % Lymphocytes (%) (Auto) 40.0 % Monocytes (%) (Auto) 10.5 % Eosinophils (%) (Auto) 2.7 % Basophils (%) (Auto) 0.5 % Neutrophils # (Auto) 6.0 TH/MM3 Lymphocytes # (Auto) 5.2 TH/MM3 Monocytes # (Auto) 1.4 TH/MM3 Eosinophils # (Auto) 0.4 TH/MM3 Basophils # (Auto) 0.1 TH/MM3 CBC Comment AUTO DIFF Differential Total Cells Counted 100 Neutrophils % (Manual) 50 % Lymphocytes % 37 % Monocytes % 8 % Eosinophils % 5 % Neutrophils # (Manual) 6.5 TH/MM3 Nucleated Red Blood Cells 2 /100 WBC Differential Comment FINAL DIFF MANUAL Platelet Estimate NORMAL Platelet Morphology Comment NORMAL Sickle Cells 2+ Target Cells 1+ Ovalocytes 1+ Fields-Mahtomedi Bodies PRESENT Reticulocyte Count 9.8 % Absolute Reticulocyte Count 243.2 MIL/L Blood Urea Nitrogen 7 MG/DL Creatinine 0.64 MG/DL Random Glucose 89 MG/DL Calcium Level 8.1 MG/DL Sodium Level 138 MEQ/L Potassium Level 3.0 MEQ/L Chloride Level 102 MEQ/L Carbon Dioxide Level 27.4 MEQ/L Anion Gap 9 MEQ/L Estimat Glomerular Filtration Rate 129 ML/MIN Troponin I LESS THAN 0.02 NG/ML Beta HCG, Qualitative LESS THAN 1 MIU/ML MDM Medical Decision Making Medical Screen Exam Complete: Yes Emergency Medical Condition: Yes Interpretation(s) EKG: NSR 79bpm. Normal axis. TWI III, V2, V3, V4. Differential Diagnosis Vasoocclusive crisis vs. acute chest syndrome Narrative Course 31yo F with sickle cell disease here with her usual sickle cell crisis. Pt states she always have chest pain with it and does not feel sob. Labs reviewed , leukocytosis at 13,000. H/H is low at 7.7/21.2. Increased retic count at 9.8. Troponin negative. negative. Hypokalemia at 3.0, replaced orally with 60mEq KCl. CXR negative. Pt given 2mg of IV dialudid, 50mg diphenhydramine, 4mg zofran and NS IVF x2. Pt reevaluated at bedside and said her pain has resolved and she wants to go home. States she can follow up with her career services representative as outpatient. Return precautions given. Diagnosis Primary Impression: Sickle cell crisis Patient Instructions: General Instructions Departure Forms: Tests/Procedures Additional Instructions: Please follow up with your career services representative in 1-2 days. Return to the ED if symptoms worsen. Med/Other Pt SpecificInfo: No Change to Meds Disposition: 01 DISCHARGE HOME Condition: Stable HernandezSakina saundersnoble FRAZIER Jan 10, 2017 04:43
[2017-01-10] MEDS ORDERED: SODIUM CHLOR 0.9% 1000 ML INJ 1,000 ML IV ONE ×2 (04:45→06:00)
[2017-01-10 05:00] LABS: BASOPHIL # 0.1 TH/MM3 (0-0.2); BASOPHIL % 0.5 % (0.0-2.0); EOSINOPHIL # 0.4 TH/MM3 (0-0.4); EOSINOPHIL % 2.7 % (0.0-4.0); HEMATOCRIT 21.2 % (35.0-46.0); LYMPHOCYTE # 5.2 TH/MM3 (1.0-4.8); MEAN CELL VOLUME 85.9 FL (80.0-100.0); MEAN CORPUSCULAR HEMOGLOBIN 31.1 PG (27.0-34.0); MONO % 10.5 % (0.0-8.0); NEUT % 46.3 % (16.0-70.0); PLATELET COUNT 285 TH/MM3 (150-450); RED BLOOD COUNT 2.47 MIL/MM3 (4.00-5.30); RED CELL DISTRIBUTION WIDTH 20.8 % (11.6-17.2); RETIC % 9.8 % (0.4-3.0)
[2017-01-10 05:08] LABS: HEMO FLAGS AUTO DIFF; MEAN CORPUSCULAR HGB CONC 36.2 % (32.0-36.0); REVIEW FLAG AUTO DIFF
--- NOTE | 2017-01-10 05:28 | RADRPT ---
EXAM DATE/TIME: 01/10/2017 04:52 [facility] COMPARISON: CHEST SINGLE AP, December 19, 2016, 2:53. INDICATIONS : Chest pain. MEDICAL HISTORY : Sickle cell. SURGICAL HISTORY : None. ENCOUNTER: Initial ACUITY: 1 day PAIN SCORE: 8/10 LOCATION: chest FINDINGS: Underinflated portable AP view of the chest demonstrates a normal-sized cardiac silhouette. Right elvis st wall [id number] is present with distal tip in the superior vena cava. No effusion, consolidatio n, or pneumothorax identified. Bones and soft tissues demonstrate no acute finding. Cholecystectomy c lips are present. CONCLUSION: No acute cardiopulmonary abnormality is identified. Michael Ellsworth MD on January 10, 2017 at 5:26 Board Certified Radiologist. This report was verified electronically.
[2017-01-10 06:01] LABS: BLOOD UREA NITROGEN 7 MG/DL (7-18); GLOMERULAR FILTRATION RATE 129 ML/MIN (>89)
[2017-01-10 06:02] LABS: ANION GAP 9 MEQ/L (5-15); BICARBONATE 27.4 MEQ/L (21.0-32.0); CHLORIDE 102 MEQ/L (98-107); SODIUM (NA) 138 MEQ/L (136-145)
[2017-01-10 06:14] LABS: BHCG SCREEN QUALITATIVE LESS THAN 1 MIU/ML (0-5)
[2017-01-10 06:17] LABS: CORRECTED NUCLEATED RBC 2 /100 WBC (0-0); EOSINOPHILS 5 % (0-4); NEUTROPHIL # MANUAL DIFF 6.5 TH/MM3 (1.8-7.7); POLYS (SEG NEUTROPHILS) 50 % (16-70); TARGET CELLS 1+ (NORMAL); WBC DIFF SAMPLE 100
[2017-01-10 06:18] LABS: HOWELL-JOLLY BODIES PRESENT (NONE SEEN); OVALOCYTES 1+ (NORMAL); PLATELET ESTIMATE SMEAR NORMAL (NORMAL); PLATELET MORPHOLOGY NORMAL (NORMAL); SCAN/DIFF FINAL DIFF MANUAL; SICKLE CELLS 2+ (NORMAL)
[2017-01-10] MEDS ORDERED: POTASSIUM CHLORIDE 20 MEQ CONTROLLED RELEASE TAB PO ONE (06:45)
--- NOTE | 2017-01-11 00:17 | EKG ---
Date Performed: 01/10/2017 Time Performed: 04:53:17 PTAGE: 31 years EKG: Sinus rhythm MODERATE T-WAVE ABNORMALITY, CONSIDER ANTERIOR ISCHEMIA ABNORMAL ECG PREVIOUS TRACING : 12/02/2016 05.24 Compared to prior tracing no significant change DOCTOR: Nelson Pulido Interpretating Date/Time 01/11/2017 00:16:35
== END 2017-01-10 06:55 | disposition home or self-care (01) ==
LOC: NEPC 03:09
DX: D57.00 Hb-SS disease with crisis, unspecified (principal); D72.829 Elevated white blood cell count, unspecified; E87.6 Hypokalemia; R94.31 Abnormal electrocardiogram [ECG] [EKG]; Z86.2 Personal history of diseases of the blood and blood-forming organs and certain disorders involving the immune mechanism; Z86.79 Personal history of other diseases of the circulatory system; Z87.442 Personal history of urinary calculi; Z87.01 Personal history of pneumonia (recurrent)
CPT/HCPCS: 71010; 80048; 84484; 84703; 85007; 85027; 85044; 93005; 96361; 96374; 96375; 96376; 99285; J1170; J1200; J2405; J7030

== ENCOUNTER 2017-01-22 07:09 | Emergency (ER) | payer OTHER ==
[~2017-01-22] VITALS: Ht 152.4 cm; Wt 55.0 kg
[2017-01-22 07:11] VITALS: BP 124/63; PULSE 104; RESP 20; TEMP 98.7; O2SAT 96
[2017-01-22] MEDS ORDERED: SODIUM CHLORID 0.9% 500 ML INJ 500 ML IV ONE (08:00)
[2017-01-22] MEDS ORDERED: HYDROmorphone HCL PF 1 MG/ML VIAL IV PUSH ONE (08:00)
[2017-01-22] MEDS ORDERED: diphenhydrAMINE HCL 50 MG/ML VIAL IV PUSH ONE (08:00)
--- NOTE | 2017-01-22 08:30 | PD ---
HPI Chief Complaint: Sickle Cell Time Seen by Provider: 07:49 Travel History International Travel<30 days: No Contact w/Intl Traveler<30days: No Traveled to known affect area: No History of Present Illness HPI Is a 31-year-old woman who presents to the emergency department complaining of sickle cell disease. She's gone on to myself and to the emergency department. Symptoms before for the past couple days. She is on her menstrual cycle now and can get anemic. She has pain in her chest and throughout her body. No fevers. No trouble breathing. History Past Medical History Narrative Medical Sickle cell disease PNEUMOCCOCAL Vaccine (Year): 2 : 2 Para: 1 Social History Alcohol Use: No Tobacco Use: No Allergies-Medications (Allergen,Severity, Reaction): Coded Allergies: morphine (Unverified Allergy, Severe, RASH, 01/10/17) *MDRO Multi-Drug Resistant Organism (Verified Adverse Reaction, Unknown, MRSA, 01/10/17) MRSA (blood) - 12/18/2004 MRSA PCR screen NEGATIVE 08/27/16 & 09/21/16 Cleared per Infection Control Reported Meds & Prescriptions Reported Meds & Active Scripts Active Lortab (Hydrocodone-Acetaminophen) 10-325 Mg Tab 1 Tab PO Q4H PRN Reported Folic Acid 400 Mcg Tab 400 Mcg PO DAILY Review of Systems Except as stated in HPI: all other systems reviewed are Neg Physical Exam Narrative GENERAL: Well-appearing 31-year-old woman, no acute distress. SKIN: Focused skin assessment warm/dry. HEAD: Atraumatic. Normocephalic. EYES: Pupils equal and round. No scleral icterus. No injection or drainage. ENT: No nasal bleeding or discharge. Mucous membranes pink and moist. NECK: Trachea midline. No JVD. CARDIOVASCULAR: Regular rate and rhythm. No murmur appreciated. RESPIRATORY: No accessory muscle use. Clear to auscultation. Breath sounds equal bilaterally. GASTROINTESTINAL: Abdomen soft, non-tender, nondistended. Hepatic and splenic margins not palpable. MUSCULOSKELETAL: No obvious deformities. No clubbing. No cyanosis. No edema. NEUROLOGICAL: Awake and alert. No obvious cranial nerve deficits. Motor grossly within normal limits. Normal speech. PSYCHIATRIC: Appropriate mood and affect; insight and judgment normal. Data Data Last Documented VS Vital Signs Date Time Temp Pulse Resp B/P (MAP) Pulse Ox O2 Delivery O2 Flow Rate FiO2 01/22/17 07:11 98.7 104 20 124/63 (83) 96 Room Air Orders Orders Complete Blood Count With Diff (01/22/17 07:37) Comprehensive Metabolic Panel (01/22/17 07:37) Retic Count (01/22/17 07:37) Hydromorphone Pf Inj (Dilaudid Pf Inj) (01/22/17 08:00) Diphenhydramine Inj (Benadryl Inj) (01/22/17 08:00) Sodium Chlorid 0.9% 500 Ml Inj (Ns 500 M (01/22/17 08:00) Hydromorphone Pf Inj (Dilaudid Pf Inj) (01/22/17 09:15) Diphenhydramine Inj (Benadryl Inj) (01/22/17 09:07) Hydromorphone Pf Inj (Dilaudid Pf Inj) (01/22/17 10:45) Heparin Central Flush (Heparin Central F (01/22/17 10:45) Labs Laboratory Tests Test 01/22/17 08:15 White Blood Count 12.3 TH/MM3 Red Blood Count 2.43 MIL/MM3 Hemoglobin 7.3 GM/DL Hematocrit 20.5 % Mean Corpuscular Volume 84.3 FL Mean Corpuscular Hemoglobin 29.9 PG Mean Corpuscular Hemoglobin Concent 35.5 % Red Cell Distribution Width 20.9 % Platelet Count 323 TH/MM3 Mean Platelet Volume 8.0 FL Neutrophils (%) (Auto) 51.9 % Lymphocytes (%) (Auto) 33.9 % Monocytes (%) (Auto) 9.4 % Eosinophils (%) (Auto) 3.7 % Basophils (%) (Auto) 1.1 % Neutrophils # (Auto) 6.4 TH/MM3 Lymphocytes # (Auto) 4.2 TH/MM3 Monocytes # (Auto) 1.2 TH/MM3 Eosinophils # (Auto) 0.5 TH/MM3 Basophils # (Auto) 0.1 TH/MM3 CBC Comment AUTO DIFF Differential Total Cells Counted 100 Neutrophils % (Manual) 52 % Lymphocytes % 36 % Monocytes % 7 % Eosinophils % 3 % Basophils % 1 % Neutrophils # (Manual) 6.5 TH/MM3 Myelocytes 1 % Nucleated Red Blood Cells 5 /100 WBC Differential Comment FINAL DIFF MANUAL Platelet Estimate NORMAL Platelet Morphology Comment NORMAL Polychromasia 2.2 % Sickle Cells 3+ Fields-Ursine Bodies PRESENT Reticulocyte Count 7.7 % Absolute Reticulocyte Count 189.4 MIL/L Blood Urea Nitrogen 6 MG/DL Creatinine 0.44 MG/DL Random Glucose 88 MG/DL Total Protein 8.0 GM/DL Albumin 3.4 GM/DL Calcium Level 8.3 MG/DL Alkaline Phosphatase 96 U/L Aspartate Amino Transf (AST/SGOT) 72 U/L Alanine Aminotransferase (ALT/SGPT) 19 U/L Total Bilirubin 2.9 MG/DL Sodium Level 138 MEQ/L Potassium Level 3.7 MEQ/L Chloride Level 105 MEQ/L Carbon Dioxide Level 25.5 MEQ/L Anion Gap 8 MEQ/L Estimat Glomerular Filtration Rate 199 ML/MIN [facility] Medical Decision Making Medical Screen Exam Complete: Yes Emergency Medical Condition: Yes Interpretation(s) Hemoglobin 7.2 Differential Diagnosis Sickle cell disease, anemia, pain crisis, other Narrative Course Medical decision making 31-year-old woman, well-known to us, here vaso-occlusive pain crisis. Looks well. May be anemic. We'll check labs. Diagnosis Primary Impression: Sickle cell crisis Additional Instructions: Follow-up with Dr. Perez tomorrow. Disposition: 01 DISCHARGE HOME Condition: Stable Balbir Clark MD Jan 22, 2017 08:30
[2017-01-22 08:44] LABS: AUTOMATED NEUTROPHIL # 6.4 TH/MM3 (1.8-7.7); BASOPHIL # 0.1 TH/MM3 (0-0.2); BASOPHIL % 1.1 % (0.0-2.0); EOSINOPHIL # 0.5 TH/MM3 (0-0.4); EOSINOPHIL % 3.7 % (0.0-4.0); LYMPH % 33.9 % (9.0-44.0); LYMPHOCYTE # 4.2 TH/MM3 (1.0-4.8); MEAN CELL VOLUME 84.3 FL (80.0-100.0); MEAN CORPUSCULAR HEMOGLOBIN 29.9 PG (27.0-34.0); MEAN CORPUSCULAR HGB CONC 35.5 % (32.0-36.0); MONO % 9.4 % (0.0-8.0); NEUT % 51.9 % (16.0-70.0); PLATELET COUNT 323 TH/MM3 (150-450); RED BLOOD COUNT 2.43 MIL/MM3 (4.00-5.30); RED CELL DISTRIBUTION WIDTH 20.9 % (11.6-17.2); WHITE BLOOD COUNT 12.3 TH/MM3 (4.0-11.0)
[2017-01-22 08:46] LABS: HEMO FLAGS AUTO DIFF
[2017-01-22 08:48] LABS: RETIC % 7.7 % (0.4-3.0)
[2017-01-22 08:49] LABS: HEMATOCRIT 20.5 % (35.0-46.0); REVIEW FLAG FINAL
[2017-01-22] MEDS ORDERED: diphenhydrAMINE HCL 50 MG/ML VIAL IV PUSH STA (09:07)
[2017-01-22 09:08] LABS: ALT (GPT) 19 U/L (10-53)
[2017-01-22 09:10] LABS: ALKALINE PHOSPHATASE 96 U/L (45-117); TOTAL BILIRUBIN ADULT 2.9 MG/DL (0.2-1.0)
[2017-01-22] MEDS ORDERED: HYDROmorphone HCL PF 1 MG/ML VIAL IVS ONE ×2 (09:15→10:45)
[2017-01-22 09:24] LABS: ANION GAP 8 MEQ/L (5-15); AST (GOT) 72 U/L (15-37); BICARBONATE 25.5 MEQ/L (21.0-32.0); BLOOD UREA NITROGEN 6 MG/DL (7-18); CHLORIDE 105 MEQ/L (98-107); GLOMERULAR FILTRATION RATE 199 ML/MIN (>89); SODIUM (NA) 138 MEQ/L (136-145)
[2017-01-22 09:25] LABS: POTASSIUM 3.7 MEQ/L (3.5-5.1)
[2017-01-22 09:50] LABS: BASOPHILS 1 % (0-2); CORRECTED NUCLEATED RBC 5 /100 WBC (0-0); EOSINOPHILS 3 % (0-4); MYELOCYTES 1 % (0-0); NEUTROPHIL # MANUAL DIFF 6.5 TH/MM3 (1.8-7.7); PLATELET ESTIMATE SMEAR NORMAL (NORMAL); PLATELET MORPHOLOGY NORMAL (NORMAL); POLYS (SEG NEUTROPHILS) 52 % (16-70); SCAN/DIFF FINAL DIFF MANUAL; WBC DIFF SAMPLE 100
[2017-01-22 09:51] LABS: HOWELL-JOLLY BODIES PRESENT (NONE SEEN); POLYCHROMASIA 2.2 % (0.0-1.9); SICKLE CELLS 3+ (NORMAL)
== END 2017-01-22 16:21 | disposition home or self-care (01) ==
LOC: NEPE 07:09
DX: D57.00 Hb-SS disease with crisis, unspecified (principal)
CPT/HCPCS: 80053; 85007; 85027; 85044; 96361; 96374; 96375; 96376; 99284; J1170; J1200; J7040

== ENCOUNTER 2017-02-01 02:51 | Emergency (ER) | payer OTHER ==
[~2017-02-01] VITALS: Ht 152.4 cm; Wt 58.0 kg
[2017-02-01 02:52] VITALS: BP 131/58; PULSE 88; RESP 16; TEMP 98.9; O2SAT 98
[2017-02-01] MEDS ORDERED: diphenhydrAMINE HCL 50 MG/ML VIAL IV ONE (03:45)
[2017-02-01] MEDS ORDERED: HYDROmorphone HCL PF 2 MG/ML VIAL IVS ONE (03:45)
[2017-02-01] MEDS ORDERED: SODIUM CHLOR 0.9% 1000 ML INJ 1,000 ML IV ONE (03:45)
[2017-02-01] MEDS ORDERED: ONDANSETRON HCL 4 MG/2 ML VIAL IVP ONE (03:45)
--- NOTE | 2017-02-01 03:50 | PD ---
HPI Chief Complaint: Sickle Cell Time Seen by Provider: 03:34 Travel History International Travel<30 days: No Contact w/Intl Traveler<30days: No Traveled to known affect area: No History of Present Illness HPI The patient is a 31-year-old after [place] female who presents to the emergency department for sickle cell pain crisis. The patient has a history of sickle cell, is followed by a police officer booking and Tate who writes her for Merritt 10 mg. However, the patient states she is having breakthrough pain. The pain is located in the lower back, through the chest, is her typical sickle cell pain. The patient does note her hemoglobin has been running on the lower and they're 7.1 7.5 recently, states her baseline is at 8. She denies any acute shortness of breath, nausea, vomiting, or headache. Symptoms are moderate, exacerbated by history of sickle cell, and there are no current alleviating factors. She denies any company fever, chills, or sweats. PFSH Past Medical History Hx Anticoagulant Therapy: No Anemia: Yes Arthritis: No Asthma: No Autoimmune Disease: No Anxiety: No Depression: No Heart Rhythm Problems: No Cancer: No Cardiovascular Problems: Yes (sickle cell disease) High Cholesterol: No Chemotherapy: No Chest Pain: No Congestive Heart Failure: No COPD: No Cerebrovascular Accident: No Diabetes: No Diminished Hearing: No Endocrine: No GERD: No Genitourinary: No Headaches: Yes Hiatal Hernia: No Immune Disorder: No Insomnia: Yes Kidney Stones: Yes Musculoskeletal: No Neurologic: No Psychiatric: No Reproductive: No Respiratory: No Immunizations Current: Yes Migraines: No Pneumonia: Yes Radiation Therapy: No Renal Failure: No Seizures: No Sickle Cell Disease: Yes Sleep Apnea: No Thyroid Disease: No Ulcer: No PNEUMOCCOCAL Vaccine (Year): 2 ?: Not LMP: CURRENT : 2 Para: 1 Miscarriage: 1 : 0 Tubal Ligation: Yes Past Surgical History Abdominal Surgery: Yes (gallbladder removed) AICD: No Arteriovenous Shunt: No Body Medical Devices: right chest port Cardiac Surgery: No Section: Yes Cholecystectomy: Yes Ear Surgery: No Endocrine Surgery: No Eye Surgery: No Genitourinary Surgery: No Gynecologic Surgery: Yes (tubal ligation) Insulin Pump: No Joint Replacement: No Oral Surgery: Yes Pacemaker: No Thoracic Surgery: Yes (CHEST PORT ) Tonsillectomy: Yes Other Surgery: Yes (right chest port) Social History Alcohol Use: No Tobacco Use: No Substance Use: No Allergies-Medications (Allergen,Severity, Reaction): Coded Allergies: morphine (Unverified Allergy, Severe, RASH, 02/01/17) *MDRO Multi-Drug Resistant Organism (Verified Adverse Reaction, Unknown, MRSA, 02/01/17) MRSA (blood) - 12/18/2004 MRSA PCR screen NEGATIVE 08/27/16 & 09/21/16 Cleared per Infection Control Reported Meds & Prescriptions Reported Meds & Active Scripts Active Lortab (Hydrocodone-Acetaminophen) 10-325 Mg Tab 1 Tab PO Q4H PRN Reported Folic Acid 400 Mcg Tab 400 Mcg PO DAILY Review of Systems Except as stated in HPI: all other systems reviewed are Neg General / Constitutional: No: Fever Cardiovascular: Positive: Chest Pain or Discomfort Respiratory: No: Shortness of Breath Gastrointestinal: No: Nausea, Vomiting, Abdominal Pain Musculoskeletal: Positive: Myalgias, Arthralgias Physical Exam Narrative GENERAL: Awake, alert, nontoxic-appearing 31 year-old female who appears her stated age and is in no acute respiratory distress. SKIN: Focused skin assessment warm/dry. HEAD: Atraumatic. Normocephalic. EYES: Pupils equal and round. Bilateral scleral icterus noted.. ENT: No nasal bleeding or discharge. Mucous membranes pink and moist. NECK: Trachea midline. No JVD. CARDIOVASCULAR: Regular rate and rhythm. No murmur appreciated. Port in place right chest wall. RESPIRATORY: No accessory muscle use. Clear to auscultation. Breath sounds equal bilaterally. MUSCULOSKELETAL: No obvious deformities. No clubbing. No cyanosis. No edema. NEUROLOGICAL: Awake and alert. No obvious cranial nerve deficits. Motor grossly within normal limits. Normal speech. PSYCHIATRIC: Appropriate mood and affect; insight and judgment normal. Data Data Last Documented VS Vital Signs Date Time Temp Pulse Resp B/P (MAP) Pulse Ox O2 Delivery O2 Flow Rate FiO2 02/01/17 05:59 02/01/17 02:52 98.9 88 16 98 Orders Orders Complete Blood Count With Diff (02/01/17 03:45) Retic Count (02/01/17 03:45) Ecg Monitoring (02/01/17 03:45) Iv Access Insert/Monitor (02/01/17 03:45) Oximetry (02/01/17 03:45) Hydromorphone Pf Inj (Dilaudid Pf Inj) (02/01/17 03:45) Ondansetron Inj (Zofran Inj) (02/01/17 03:45) Sodium Chloride 0.9% Flush (Ns Flush) (02/01/17 03:45) Sodium Chlor 0.9% 1000 Ml Inj (Ns 1000 M (02/01/17 03:45) Diphenhydramine Inj (Benadryl Inj) (02/01/17 03:45) Hydromorphone Pf Inj (Dilaudid Pf Inj) (02/01/17 05:00) Diphenhydramine Inj (Benadryl Inj) (02/01/17 05:30) Heparin Central Flush (Heparin Central F (02/01/17 06:00) Labs Laboratory Tests Test 02/01/17 04:10 White Blood Count 10.5 TH/MM3 Red Blood Count 2.44 MIL/MM3 Hemoglobin 7.6 GM/DL Hematocrit 20.6 % Mean Corpuscular Volume 84.5 FL Mean Corpuscular Hemoglobin 31.3 PG Mean Corpuscular Hemoglobin Concent 37.0 % Red Cell Distribution Width 21.4 % Platelet Count 310 TH/MM3 Mean Platelet Volume 8.1 FL Neutrophils (%) (Auto) 54.2 % Lymphocytes (%) (Auto) 30.8 % Monocytes (%) (Auto) 10.8 % Eosinophils (%) (Auto) 3.4 % Basophils (%) (Auto) 0.8 % Neutrophils # (Auto) 5.7 TH/MM3 Lymphocytes # (Auto) 3.2 TH/MM3 Monocytes # (Auto) 1.1 TH/MM3 Eosinophils # (Auto) 0.4 TH/MM3 Basophils # (Auto) 0.1 TH/MM3 CBC Comment AUTO DIFF Differential Total Cells Counted 100 Neutrophils % (Manual) 56 % Band Neutrophils % 1 % Lymphocytes % 30 % Monocytes % 8 % Eosinophils % 4 % Neutrophils # (Manual) 6.1 TH/MM3 Myelocytes 1 % Nucleated Red Blood Cells 9 /100 WBC Differential Comment FINAL DIFF MANUAL Platelet Estimate NORMAL Platelet Morphology Comment NORMAL Sickle Cells 2+ Target Cells 1+ Ovalocytes 1+ Helmet Cells 1+ Keratocytes 1+ Reticulocyte Count 8.0 % Absolute Reticulocyte Count 196.2 MIL/L MDM Medical Decision Making Medical Screen Exam Complete: Yes Emergency Medical Condition: Yes Medical Record Reviewed: Yes Interpretation(s) Laboratory Tests Test 02/01/17 04:10 White Blood Count 10.5 TH/MM3 Red Blood Count 2.44 MIL/MM3 Hemoglobin 7.6 GM/DL Hematocrit 20.6 % Mean Corpuscular Volume 84.5 FL Mean Corpuscular Hemoglobin 31.3 PG Mean Corpuscular Hemoglobin Concent 37.0 % Red Cell Distribution Width 21.4 % Platelet Count 310 TH/MM3 Mean Platelet Volume 8.1 FL Neutrophils (%) (Auto) 54.2 % Lymphocytes (%) (Auto) 30.8 % Monocytes (%) (Auto) 10.8 % Eosinophils (%) (Auto) 3.4 % Basophils (%) (Auto) 0.8 % Neutrophils # (Auto) 5.7 TH/MM3 Lymphocytes # (Auto) 3.2 TH/MM3 Monocytes # (Auto) 1.1 TH/MM3 Eosinophils # (Auto) 0.4 TH/MM3 Basophils # (Auto) 0.1 TH/MM3 CBC Comment AUTO DIFF Reticulocyte Count 8.0 % Absolute Reticulocyte Count 196.2 MIL/L Differential Diagnosis Differential diagnosis includes vaso-occlusive crisis, sickle cell crisis, dehydration, drug-seeking behavior, malingering, symptomatically anemia. Narrative Course The patient's port was accessed, labs are drawn and sent, and the patient was placed on cardiac telemetry monitoring and continuous pulse oximetry monitoring. The patient was administered Dilaudid, Zofran, Benadryl, and IV fluids. CBC and reticulocyte count were sent to lab. The patient's hemoglobin had improved to 7.6, retake count is appropriate. The patient was administered a second dose of pain medications. The patient is stable for outpatient follow- up with her police officer booking. She is advised to return if symptoms worsen or progress. Diagnosis Primary Impression: Sickle cell pain crisis Patient Instructions: General Instructions Additional Instructions: Follow-up with her primary physician/police officer booking. Return if symptoms worsen or progress. Disposition: 01 DISCHARGE HOME Condition: Stable Markus Villarreal MD Feb 01, 2017 03:50
[2017-02-01] MEDS: SODIUM CHLORIDE 0.9% FLUSH 10 ML FLUSH IVF PRN ×2 (04:16→05:34)
[2017-02-01 04:30] LABS: AUTOMATED NEUTROPHIL # 5.7 TH/MM3 (1.8-7.7); BASOPHIL # 0.1 TH/MM3 (0-0.2); BASOPHIL % 0.8 % (0.0-2.0); EOSINOPHIL # 0.4 TH/MM3 (0-0.4); EOSINOPHIL % 3.4 % (0.0-4.0); LYMPH % 30.8 % (9.0-44.0); LYMPHOCYTE # 3.2 TH/MM3 (1.0-4.8); MEAN CELL VOLUME 84.5 FL (80.0-100.0); MEAN CORPUSCULAR HEMOGLOBIN 31.3 PG (27.0-34.0); MONO % 10.8 % (0.0-8.0); NEUT % 54.2 % (16.0-70.0); PLATELET COUNT 310 TH/MM3 (150-450); RED BLOOD COUNT 2.44 MIL/MM3 (4.00-5.30); RED CELL DISTRIBUTION WIDTH 21.4 % (11.6-17.2); WHITE BLOOD COUNT 10.5 TH/MM3 (4.0-11.0)
[2017-02-01 05:00] LABS: HEMO FLAGS AUTO DIFF; REVIEW FLAG AUTO DIFF
[2017-02-01] MEDS ORDERED: HYDROmorphone HCL PF 1 MG/ML VIAL IV PUSH ONE (05:00)
[2017-02-01 05:01] LABS: HEMATOCRIT 20.6 % (35.0-46.0)
[2017-02-01] MEDS ORDERED: diphenhydrAMINE HCL 50 MG/ML VIAL IV PUSH ONE (05:30)
[2017-02-01 06:00] LABS: BANDS 1 % (0-6); CORRECTED NUCLEATED RBC 9 /100 WBC (0-0); EOSINOPHILS 4 % (0-4); MYELOCYTES 1 % (0-0); NEUTROPHIL # MANUAL DIFF 6.1 TH/MM3 (1.8-7.7); OVALOCYTES 1+ (NORMAL); POLYS (SEG NEUTROPHILS) 56 % (16-70); SICKLE CELLS 2+ (NORMAL); TARGET CELLS 1+ (NORMAL); WBC DIFF SAMPLE 100
[2017-02-01 06:01] LABS: HELMET CELLS 1+ (NORMAL); KERATOCYTES 1+ (NORMAL); PLATELET ESTIMATE SMEAR NORMAL (NORMAL); PLATELET MORPHOLOGY NORMAL (NORMAL); SCAN/DIFF FINAL DIFF MANUAL
== END 2017-02-01 06:05 | disposition home or self-care (01) ==
LOC: NEPE 02:51
DX: D57.00 Hb-SS disease with crisis, unspecified (principal); M54.5 Low back pain
CPT/HCPCS: 85007; 85027; 85044; 96361; 96374; 96375; 96376; 99284; J1170; J1200; J1642; J2405; J7030

== ENCOUNTER 2017-02-05 01:31 | Emergency (ER) | payer OTHER ==
[~2017-02-05] VITALS: Ht 152.4 cm; Wt 57.0 kg
[2017-02-05 01:33] VITALS: BP 129/72; PULSE 91; RESP 16; TEMP 98.9; O2SAT 92
[2017-02-05] MEDS ORDERED: SODIUM CHLOR 0.9% 1000 ML INJ 1,000 ML IV ONE (03:23)
[2017-02-05] MEDS ORDERED: ONDANSETRON HCL 4 MG/2 ML VIAL IVP ONE (03:30)
[2017-02-05] MEDS ORDERED: HYDROmorphone HCL PF 1 MG/ML VIAL IVS ONE (03:30)
[2017-02-05] MEDS ORDERED: SODIUM CHLORIDE 0.9% FLUSH 10 ML FLUSH IVF PRN (03:30)
[2017-02-05 03:32] VITALS: RESP 18
--- NOTE | 2017-02-05 03:33 | PD ---
HPI Chief Complaint: Sickle Cell Time Seen by Provider: 03:21 Travel History International Travel<30 days: No Contact w/Intl Traveler<30days: No Traveled to known affect area: No History of Present Illness HPI The patient is a 31 year old female who presents to the [facility] emergency department with a history of pain in her back, legs, and chest that began yesterday. It is similar to her prior sickle cell pain crisis. She has felt weak. She denies having any fevers or chills, cough or congestion. She denies having any shortness of breath. She denies having any swelling or redness to her joints. She denies having any rashes. Otherwise on review of systems, the patient denies any recent neck pain, abdominal pain, vomiting, diarrhea, urinary symptoms, or neurologic symptoms. The patient reports that she is currently on her menstrual cycle and her menstrual cycles usually trigger a sickle cell pain crisis. LMP: started yesterday. Shop Firer/Fireman is Dr. Rivas. [facility] Past Medical History Narrative Medical The patient's pelvis medical history is significant for sickle cell anemia, dysmenorrhea, chronic back pain, depression, history of iron overload. Hx Anticoagulant Therapy: No Anemia: Yes Arthritis: No Asthma: No Autoimmune Disease: No Anxiety: No Depression: No Heart Rhythm Problems: No Cancer: No Cardiovascular Problems: Yes (sickle cell disease) High Cholesterol: No Chemotherapy: No Chest Pain: No Congestive Heart Failure: No COPD: No Cerebrovascular Accident: No Diabetes: No Diminished Hearing: No Endocrine: No GERD: No Genitourinary: No Headaches: Yes Hiatal Hernia: No Immune Disorder: No Implanted Vascular Access Dvce: Yes (RIGHT CHEST ) Insomnia: Yes Kidney Stones: Yes Musculoskeletal: No Neurologic: No Psychiatric: No Reproductive: No Respiratory: No Immunizations Current: Yes Migraines: No Pneumonia: Yes Radiation Therapy: No Renal Failure: No Seizures: No Sickle Cell Disease: Yes Sleep Apnea: No Thyroid Disease: No Ulcer: No PNEUMOCCOCAL Vaccine (Year): 2 ?: Not : 2 Para: 1 Miscarriage: 1 : 0 Tubal Ligation: Yes Past Surgical History Narrative Surgical The patient's past surgical history is significant for cholecystectomy, tonsillectomy, bilateral tubal ligation, [id number]-[id number] placement in the right chest Abdominal Surgery: Yes (gallbladder removed) AICD: No Arteriovenous Shunt: No Body Medical Devices: right chest port Cardiac Surgery: No Section: Yes Cholecystectomy: Yes Ear Surgery: No Endocrine Surgery: No Eye Surgery: No Genitourinary Surgery: No Gynecologic Surgery: Yes (tubal ligation) Insulin Pump: No Joint Replacement: No Oral Surgery: Yes Pacemaker: No Thoracic Surgery: Yes (CHEST PORT ) Tonsillectomy: Yes Other Surgery: Yes (right chest port) Social History Alcohol Use: No Tobacco Use: No Substance Use: No Allergies-Medications (Allergen,Severity, Reaction): Coded Allergies: morphine (Unverified Allergy, Severe, RASH, 02/05/17) *MDRO Multi-Drug Resistant Organism (Verified Adverse Reaction, Unknown, MRSA, 02/05/17) MRSA (blood) - 12/18/2004 MRSA PCR screen NEGATIVE 08/27/16 & 09/21/16 Cleared per Infection Control Reported Meds & Prescriptions Reported Meds & Active Scripts Active Lortab (Hydrocodone-Acetaminophen) 10-325 Mg Tab 1 Tab PO Q4-6H PRN Review of Systems Except as stated in HPI: all other systems reviewed are Neg General / Constitutional: No: Fever Eyes: No: Visual changes HENT: No: Headaches, Congestion Cardiovascular: Positive: Chest Pain or Discomfort, No: Dyspnea on exertion Respiratory: No: Shortness of Breath Gastrointestinal: No: Abdominal Pain Genitourinary: No: Dysuria Musculoskeletal: Positive: Myalgias, Arthralgias, Pain, No: Limited ROM, Edema Skin: No Rash Neurologic: No: Weakness Psychiatric: No: Depression Endocrine: No: Polydipsia Hematologic/Lymphatic: No: Easy Bruising Physical Exam Narrative General: The patient is a well-developed well-nourished female in no acute distress. Head and Neck exam: Head is normocephalic atraumatic. Eyes: EOMI, pupils are equal round and reactive to light. Nose: Midline septum with pink mucous membranes Mouth: Dentition unremarkable. Moist mucus membranes. Posterior oropharynx is not erythematous. No tonsillar hypertrophy. Uvula midline. Airway patent. Neck: No palpable lymphadenopathy. No nuchal rigidity. No thyromegaly. Cardiovascular: Regular rate and rhythm without murmurs, gallops, or rubs. The patient has an [id number]-[id number] in place in the right upper chest that appears to be in good repair without any overlying erythema, edema, or tenderness to palpation Lungs: Clear to auscultation bilaterally. No wheezes, rhonchi, or rales. Abdomen: Soft, without tenderness to palpation in all 4 quadrants of the abdomen. No guarding, rebound, or rigidity. Normal bowel sounds are audible. No tenderness on palpation of McBurney's point Extremities: No clubbing, cyanosis, or edema. 2+ pulses in all 4 extremities. Back: No spinous process tenderness to palpation. No costovertebral angle tenderness to palpation. Neurologic Exam: Grossly nonfocal. Skin Exam: No rash noted. Intact skin that is warm and dry. Data Data Last Documented VS Vital Signs Date Time Temp Pulse Resp B/P (MAP) Pulse Ox O2 Delivery O2 Flow Rate FiO2 02/05/17 05:35 02/05/17 05:05 89 16 96 Room Air 02/05/17 01:33 98.9 Orders Orders Complete Blood Count With Diff (02/05/17 03:23) Comprehensive Metabolic Panel (02/05/17 03:23) Retic Count (02/05/17 03:23) Ecg Monitoring (02/05/17 03:23) Iv Access Insert/Monitor (02/05/17 03:23) Oximetry (02/05/17 03:23) Oxygen Administration (02/05/17 03:23) Ondansetron Inj (Zofran Inj) (02/05/17 03:30) Sodium Chloride 0.9% Flush (Ns Flush) (02/05/17 03:30) Sodium Chlor 0.9% 1000 Ml Inj (Ns 1000 M (02/05/17 03:23) Hydromorphone Pf Inj (Dilaudid Pf Inj) (02/05/17 03:30) Diphenhydramine Inj (Benadryl Inj) (02/05/17 03:45) Hydromorphone Pf Inj (Dilaudid Pf Inj) (02/05/17 05:30) Diphenhydramine Inj (Benadryl Inj) (02/05/17 05:30) Heparin Central Flush (Heparin Central F (02/05/17 05:30) Labs Laboratory Tests Test 02/05/17 03:30 White Blood Count 12.3 TH/MM3 Red Blood Count 2.41 MIL/MM3 Hemoglobin 7.4 GM/DL Hematocrit 20.9 % Mean Corpuscular Volume 86.8 FL Mean Corpuscular Hemoglobin 30.8 PG Mean Corpuscular Hemoglobin Concent 35.5 % Red Cell Distribution Width 22.4 % Platelet Count 308 TH/MM3 Mean Platelet Volume 8.5 FL Neutrophils (%) (Auto) 45.1 % Lymphocytes (%) (Auto) 39.9 % Monocytes (%) (Auto) 10.3 % Eosinophils (%) (Auto) 4.0 % Basophils (%) (Auto) 0.7 % Neutrophils # (Auto) 5.6 TH/MM3 Lymphocytes # (Auto) 4.9 TH/MM3 Monocytes # (Auto) 1.3 TH/MM3 Eosinophils # (Auto) 0.5 TH/MM3 Basophils # (Auto) 0.1 TH/MM3 CBC Comment AUTO DIFF Differential Total Cells Counted 100 Neutrophils % (Manual) 44 % Band Neutrophils % 2 % Lymphocytes % 40 % Monocytes % 9 % Eosinophils % 3 % Basophils % 1 % Neutrophils # (Manual) 5.8 TH/MM3 Metamyelocytes 1 % Nucleated Red Blood Cells 11 /100 WBC Differential Comment FINAL DIFF MANUAL Platelet Estimate NORMAL Platelet Morphology Comment NORMAL Polychromasia 7.0 % Sickle Cells 2+ Target Cells 1+ Fields-Sparks Bodies PRESENT Reticulocyte Count 13.3 % Absolute Reticulocyte Count 319.9 MIL/L Blood Urea Nitrogen 8 MG/DL Creatinine 0.64 MG/DL Random Glucose 94 MG/DL Total Protein 7.4 GM/DL Albumin 3.2 GM/DL Calcium Level 8.2 MG/DL Alkaline Phosphatase 85 U/L Aspartate Amino Transf (AST/SGOT) 59 U/L Alanine Aminotransferase (ALT/SGPT) 14 U/L Total Bilirubin 2.6 MG/DL Sodium Level 140 MEQ/L Potassium Level 3.9 MEQ/L Chloride Level 105 MEQ/L Carbon Dioxide Level 29.5 MEQ/L Anion Gap 6 MEQ/L Estimat Glomerular Filtration Rate 129 ML/MIN MDM Medical Decision Making Medical Screen Exam Complete: Yes Emergency Medical Condition: Yes Medical Record Reviewed: Yes Differential Diagnosis Sickle cell pain crisis, versus arthritis, versus musculoskeletal strain, versus septic joint Narrative Course During the course of the patients emergency department visit, the patients history, examination, and differential diagnosis were reviewed with the patient. The patient had IV access obtained and blood work sent for analysis. The patient states on a cardiac/vascular sonographer with oximetry and blood pressure monitoring. The patient was initially provided 2 L nasal cannula O2 to prevent further sickling, normal saline 1 L IV fluid bolus, hydromorphone 1 mg IV, Zofran 4 mg IV and Benadryl 25 mg IV for itching. The patients laboratory studies were reviewed and remarkable for a white count of 12.3, hemoglobin 7.4 which is compared to the patient's prior hemoglobin at this facility which over the last few evaluations ranged from 7.7- 7.3. She reports that her telecommunication lines repairer will usually only transfuse her when her hemoglobin is down to 6, given her iron overload from prior transfusions. Her platelets are noted to be 308, she has a monocytosis at 9, sickle cells are 2+, reticulocyte count is 13.3, CMP is remarkable for a calcium of 8.2, total bilirubin 2.6, AST 59, albumin 3.2. The patient reported improvement in her pain to a decreased pain level, however an additional dose of pain relief was administered to further lower her pain level. She reports that her telecommunication lines repairer is currently out of town, and she is currently out of her hydrocodone for pain crises. The patient was given a small course of pain reliever. She was instructed to follow-up with her tire adjuster to discuss further options regarding her dysmenorrhea as he seems to be triggering her pain crises. The patient was agreeable with this plan. The patient is resting comfortably and feels better, is alert and in no distress. The patients results and examination findings were discussed with the patient. The repeat examination is unremarkable and benign. The history, exam, diagnostic testing, and current condition do not suggest any significant pathology to warrant further testing, continued ED treatment, admission, or surgical evaluation at this point. The vital signs have been stable. The patient does not have uncontrollable pain, intractable vomiting, or other significant symptoms. The patient's condition is stable and appropriate for discharge. The patient will pursue further outpatient evaluation with a primary care physician or other designated or consulting physician as indicated in the discharge instructions. The patient expressed understanding and was agreeable with this plan. Diagnosis Primary Impression: Sickle cell crisis Referrals: Primary Care Physician 3 days Patient Instructions: General Instructions, Sickle Cell Crisis (ED) Med/Other Pt SpecificInfo: Prescription(s) given Scripts Hydrocodone-Acetaminophen (Lortab) 10-325 Mg Tab 1 TAB PO Q4-6H Y for PAIN, #12 TAB 0 Refills Prov: Mignon Lin MD 02/05/17 Disposition: 01 DISCHARGE HOME Condition: Stable Mignon Lin MD Feb 05, 2017 03:33
[2017-02-05 03:45] LABS: AUTOMATED NEUTROPHIL # 5.6 TH/MM3 (1.8-7.7); BASOPHIL # 0.1 TH/MM3 (0-0.2); BASOPHIL % 0.7 % (0.0-2.0); EOSINOPHIL # 0.5 TH/MM3 (0-0.4); LYMPH % 39.9 % (9.0-44.0); LYMPHOCYTE # 4.9 TH/MM3 (1.0-4.8); MEAN CELL VOLUME 86.8 FL (80.0-100.0); MEAN CORPUSCULAR HEMOGLOBIN 30.8 PG (27.0-34.0); MEAN CORPUSCULAR HGB CONC 35.5 % (32.0-36.0); MONO % 10.3 % (0.0-8.0); NEUT % 45.1 % (16.0-70.0); PLATELET COUNT 308 TH/MM3 (150-450); RED BLOOD COUNT 2.41 MIL/MM3 (4.00-5.30); RED CELL DISTRIBUTION WIDTH 22.4 % (11.6-17.2); RETIC % 13.3 % (0.4-3.0); WHITE BLOOD COUNT 12.3 TH/MM3 (4.0-11.0)
[2017-02-05] MEDS ORDERED: diphenhydrAMINE HCL 50 MG/ML VIAL IV PUSH ONE ×2 (03:45→05:30)
[2017-02-05 03:46] LABS: HEMO FLAGS AUTO DIFF; REVIEW FLAG AUTO DIFF
[2017-02-05 03:48] LABS: HEMATOCRIT 20.9 % (35.0-46.0)
[2017-02-05 04:07] LABS: ALKALINE PHOSPHATASE 85 U/L (45-117); ALT (GPT) 14 U/L (10-53); TOTAL BILIRUBIN ADULT 2.6 MG/DL (0.2-1.0)
[2017-02-05 04:17] LABS: ANION GAP 6 MEQ/L (5-15); AST (GOT) 59 U/L (15-37); BICARBONATE 29.5 MEQ/L (21.0-32.0); BLOOD UREA NITROGEN 8 MG/DL (7-18); CHLORIDE 105 MEQ/L (98-107); GLOMERULAR FILTRATION RATE 129 ML/MIN (>89); SODIUM (NA) 140 MEQ/L (136-145)
[2017-02-05 04:18] LABS: POTASSIUM 3.9 MEQ/L (3.5-5.1)
[2017-02-05 04:22] LABS: BANDS 2 % (0-6); BASOPHILS 1 % (0-2); CORRECTED NUCLEATED RBC 11 /100 WBC (0-0); EOSINOPHILS 3 % (0-4); METAMYELOCYTES 1 % (0-1); NEUTROPHIL # MANUAL DIFF 5.8 TH/MM3 (1.8-7.7); POLYS (SEG NEUTROPHILS) 44 % (16-70); SCAN/DIFF FINAL DIFF MANUAL; WBC DIFF SAMPLE 100
[2017-02-05 04:24] LABS: PLATELET ESTIMATE SMEAR NORMAL (NORMAL); PLATELET MORPHOLOGY NORMAL (NORMAL); SICKLE CELLS 2+ (NORMAL)
[2017-02-05 04:28] LABS: HOWELL-JOLLY BODIES PRESENT (NONE SEEN); TARGET CELLS 1+ (NORMAL)
[2017-02-05 05:05] VITALS: BP 121/68; PULSE 89; RESP 16; O2SAT 96
[2017-02-05] MEDS ORDERED: HYDR-3535 PO (05:22)
[2017-02-05] MEDS ORDERED: HYDROmorphone HCL PF 1 MG/ML VIAL IV PUSH ONE (05:30)
== END 2017-02-05 05:37 | disposition home or self-care (01) ==
LOC: NEPE 01:31
DX: D57.00 Hb-SS disease with crisis, unspecified (principal)
CPT/HCPCS: 80053; 85007; 85027; 85044; 96361; 96374; 96375; 96376; 99284; J1170; J1200; J1642; J2405; J7030

== ENCOUNTER 2017-02-11 02:11 | Emergency (ER) | payer OTHER ==
[~2017-02-11 02:11] MED LIST changes: -FOLI400T PO
[2017-02-11 02:13] VITALS: BP 118/72; PULSE 91; RESP 16; TEMP 99.1; O2SAT 96
[2017-02-11] MEDS ORDERED: SODIUM CHLOR 0.9% 1000 ML INJ 1,000 ML IV ONE (03:01)
[2017-02-11] MEDS ORDERED: SODIUM CHLORIDE 0.9% FLUSH 10 ML FLUSH IVF PRN (03:15)
[2017-02-11] MEDS ORDERED: ONDANSETRON HCL 4 MG/2 ML VIAL IVP ONE (03:15)
[2017-02-11] MEDS ORDERED: HYDROmorphone HCL PF 1 MG/ML VIAL IVS ONE (03:15)
[2017-02-11] MEDS ORDERED: diphenhydrAMINE HCL 50 MG/ML VIAL IV PUSH ONE ×2 (03:15→04:30)
[2017-02-11] MEDS ORDERED: KETOROLAC TROMETHAMINE 30 MG/ML (IVP) VIAL IVP ONE (03:15)
--- NOTE | 2017-02-11 03:16 | PD ---
HPI . Sickle cell crisis Chief Complaint: Sickle Cell Time Seen by Provider: 03:01 Travel History International Travel<30 days: No Contact w/Intl Traveler<30days: No Traveled to known affect area: No History of Present Illness HPI This patient presents with the chief complaint of sickle cell crisis. Current onset of symptoms was today. She states that she took a Lortab 10 at about 10: 30 PM with no relief of her symptoms. She is complaining with diffuse pain. No cough or fever. No urinary tract symptoms. No vomiting or diarrhea. Patient reports that her sickle cell is exacerbated her menstrual cycle. She states that she is currently menstruating. The patient was seen here on 02/05 for the same thing. She was also menstruating at that time. She states that it is not at all unusual for her periods to last for several weeks. PFSH Past Medical History Hx Anticoagulant Therapy: No Anemia: Yes Arthritis: No Asthma: No Autoimmune Disease: No Blood Disorders: Yes (sickle cell disease) Anxiety: No Depression: No Heart Rhythm Problems: No Cancer: No Cardiovascular Problems: Yes (sickle cell disease) High Cholesterol: No Chemotherapy: No Chest Pain: No Congestive Heart Failure: No COPD: No Cerebrovascular Accident: No Diabetes: No Diminished Hearing: No Endocrine: No GERD: No Genitourinary: No Headaches: Yes Hiatal Hernia: No Immune Disorder: No Implanted Vascular Access Dvce: Yes (RIGHT CHEST ) Insomnia: Yes Kidney Stones: Yes Musculoskeletal: No Neurologic: No Psychiatric: No Reproductive: No Respiratory: No Immunizations Current: Yes Migraines: No Pneumonia: Yes Radiation Therapy: No Renal Failure: No Seizures: No Sickle Cell Disease: Yes Sleep Apnea: No Thyroid Disease: No Ulcer: No Tetanus Vaccination: < 5 Years Influenza Vaccination: Yes PNEUMOCCOCAL Vaccine (Year): 2 ?: Not : 2 Para: 1 Miscarriage: 1 : 0 Tubal Ligation: Yes Past Surgical History Abdominal Surgery: Yes (gallbladder removed) AICD: No Arteriovenous Shunt: No Body Medical Devices: right chest port Cardiac Surgery: No Section: Yes Cholecystectomy: Yes Ear Surgery: No Endocrine Surgery: No Eye Surgery: No Genitourinary Surgery: No Gynecologic Surgery: Yes (tubal ligation) Insulin Pump: No Joint Replacement: No Oral Surgery: Yes Pacemaker: No Thoracic Surgery: Yes (CHEST PORT ) Tonsillectomy: Yes Other Surgery: Yes (right chest port) Social History Alcohol Use: No Tobacco Use: No Substance Use: No Allergies-Medications (Allergen,Severity, Reaction): Coded Allergies: morphine (Unverified Allergy, Severe, RASH, 02/11/17) *MDRO Multi-Drug Resistant Organism (Verified Adverse Reaction, Unknown, MRSA, 02/05/17) MRSA (blood) - 12/18/2004 MRSA PCR screen NEGATIVE 08/27/16 & 09/21/16 Cleared per Infection Control Reported Meds & Prescriptions Reported Meds & Active Scripts Active Lortab (Hydrocodone-Acetaminophen) 10-325 Mg Tab 1 Tab PO Q4-6H PRN Review of Systems Except as stated in HPI: all other systems reviewed are Neg General / Constitutional: No: Fever, Chills Eyes: No: Blurred Vision HENT: No: Headaches Cardiovascular: Positive: Chest Pain or Discomfort Respiratory: No: Cough, Shortness of Breath Gastrointestinal: No: Nausea, Vomiting, Diarrhea Genitourinary: Positive: Vaginal Bleeding, No: Urgency, Frequency, Dysuria Musculoskeletal: Positive: Pain Physical Exam Narrative GENERAL: Patient is awake and alert. She does not appear to be in any acute distress. SKIN: warm/dry. HEAD: Normocephalic. Atraumatic. EYES: Pupils equal and round. No scleral icterus. No injection or drainage. ENT: No nasal bleeding or discharge. Mucous membranes pink and moist. NECK: Trachea midline. Full range of motion without pain.. CARDIOVASCULAR: Regular rate and rhythm. Heart sounds are normal. RESPIRATORY: No accessory muscle use. Clear to auscultation. Breath sounds equal bilaterally. GASTROINTESTINAL: Abdomen soft. Nontender. Bowel sounds present. Nondistended. MUSCULOSKELETAL: No obvious deformities. NEUROLOGICAL: Awake and alert. No obvious cranial nerve deficits. Motor grossly within normal limits. Normal speech. PSYCHIATRIC: Appropriate mood and affect; insight and judgment normal. Data Data Last Documented VS Vital Signs Date Time Temp Pulse Resp B/P (MAP) Pulse Ox O2 Delivery O2 Flow Rate FiO2 02/11/17 02:59 18 98 Room Air 02/11/17 02:13 99.1 91 118/72 (87) Orders Orders Complete Blood Count With Diff (02/11/17 03:01) Comprehensive Metabolic Panel (02/11/17 03:01) Retic Count (02/11/17 03:01) Iv Access Insert/Monitor (02/11/17 03:01) Oxygen Administration (02/11/17 03:01) Ketorolac Inj (Toradol Inj) (02/11/17 03:15) Ondansetron Inj (Zofran Inj) (02/11/17 03:15) Sodium Chloride 0.9% Flush (Ns Flush) (02/11/17 03:15) Sodium Chlor 0.9% 1000 Ml Inj (Ns 1000 M (02/11/17 03:01) Hydromorphone Pf Inj (Dilaudid Pf Inj) (02/11/17 03:15) Diphenhydramine Inj (Benadryl Inj) (02/11/17 03:15) Labs Laboratory Tests Test 02/11/17 03:34 White Blood Count 11.1 TH/MM3 Red Blood Count 2.41 MIL/MM3 Hemoglobin 7.6 GM/DL Hematocrit 20.4 % Mean Corpuscular Volume 84.5 FL Mean Corpuscular Hemoglobin 31.5 PG Mean Corpuscular Hemoglobin Concent 37.3 % Red Cell Distribution Width 24.0 % Platelet Count 270 TH/MM3 Mean Platelet Volume 7.8 FL Neutrophils (%) (Auto) 45.4 % Lymphocytes (%) (Auto) 39.2 % Monocytes (%) (Auto) 10.8 % Eosinophils (%) (Auto) 3.4 % Basophils (%) (Auto) 1.2 % Neutrophils # (Auto) 5.0 TH/MM3 Lymphocytes # (Auto) 4.3 TH/MM3 Monocytes # (Auto) 1.2 TH/MM3 Eosinophils # (Auto) 0.4 TH/MM3 Basophils # (Auto) 0.1 TH/MM3 CBC Comment AUTO DIFF Reticulocyte Count 9.9 % Absolute Reticulocyte Count 239.1 MIL/L Blood Urea Nitrogen 7 MG/DL Creatinine 0.52 MG/DL Random Glucose 94 MG/DL Total Protein 7.7 GM/DL Albumin 3.3 GM/DL Calcium Level 7.7 MG/DL Alkaline Phosphatase 86 U/L Aspartate Amino Transf (AST/SGOT) 78 U/L Alanine Aminotransferase (ALT/SGPT) 17 U/L Total Bilirubin 2.5 MG/DL Sodium Level 137 MEQ/L Potassium Level 3.4 MEQ/L Chloride Level 103 MEQ/L Carbon Dioxide Level 26.4 MEQ/L Anion Gap 8 MEQ/L Estimat Glomerular Filtration Rate 164 ML/MIN [facility] Medical Decision Making Medical Screen Exam Complete: Yes Emergency Medical Condition: Yes Medical Record Reviewed: Yes (patient was treated here on 02/05 with Dilaudid 1 mg IV 2, Zofran, Benadryl, IV fluids and oxygen. Her hemoglobin was 7.4 which is her baseline. Reticulocyte count was 13.3. Her bilirubin was 2.6.) Differential Diagnosis My differential diagnosis of sickle cell disease includes but is not limited to vaso-occlusive crisis, acute chest syndrome, occult infection, electrolyte disturbance, drug-seeking behavior. Narrative Course This patient presents with her usual pain associated with sickle cell crisis. I have ordered oxygen, IV fluids, IV Dilaudid, IV Zofran and IV Benadryl. Labs will be checked. CBC & BMP Diagram 02/11/17 03:34 Total Protein 7.7, Albumin 3.3 L, Calcium Level 7.7 L, Alkaline Phosphatase 86, Aspartate Amino Transf (AST/SGOT) 78 H, Alanine Aminotransferase (ALT/SGPT) 17, Total Bilirubin 2.5 H Reticulocyte count is 9.9. Patient reports she is feeling much better. She is requesting an additional dose of medication prior to discharge. Otherwise, she states that she is ready to go home. Diagnosis Primary Impression: Sickle cell crisis Patient Instructions: General Instructions, Sickle Cell Crisis (ED) Disposition: DISCHARGE HOME Condition: Stable Inna Delacruz MD Feb 11, 2017 03:16
[2017-02-11 03:41] LABS: BASOPHIL # 0.1 TH/MM3 (0-0.2); BASOPHIL % 1.2 % (0.0-2.0); EOSINOPHIL # 0.4 TH/MM3 (0-0.4); EOSINOPHIL % 3.4 % (0.0-4.0); LYMPH % 39.2 % (9.0-44.0); LYMPHOCYTE # 4.3 TH/MM3 (1.0-4.8); MEAN CELL VOLUME 84.5 FL (80.0-100.0); MEAN CORPUSCULAR HEMOGLOBIN 31.5 PG (27.0-34.0); MONO % 10.8 % (0.0-8.0); NEUT % 45.4 % (16.0-70.0); PLATELET COUNT 270 TH/MM3 (150-450); RED BLOOD COUNT 2.41 MIL/MM3 (4.00-5.30); RETIC % 9.9 % (0.4-3.0); WHITE BLOOD COUNT 11.1 TH/MM3 (4.0-11.0)
[2017-02-11 03:42] LABS: MEAN CORPUSCULAR HGB CONC 37.3 % (32.0-36.0)
[2017-02-11 03:43] LABS: HEMO FLAGS AUTO DIFF; REVIEW FLAG AUTO DIFF
[2017-02-11 03:53] LABS: HEMATOCRIT 20.4 % (35.0-46.0)
[2017-02-11 04:06] LABS: ALKALINE PHOSPHATASE 86 U/L (45-117); TOTAL BILIRUBIN ADULT 2.5 MG/DL (0.2-1.0)
[2017-02-11 04:12] LABS: ALT (GPT) 17 U/L (10-53); ANION GAP 8 MEQ/L (5-15); AST (GOT) 78 U/L (15-37); BICARBONATE 26.4 MEQ/L (21.0-32.0); BLOOD UREA NITROGEN 7 MG/DL (7-18); CHLORIDE 103 MEQ/L (98-107); GLOMERULAR FILTRATION RATE 164 ML/MIN (>89); POTASSIUM 3.4 MEQ/L (3.5-5.1); SODIUM (NA) 137 MEQ/L (136-145)
[2017-02-11 04:15] LABS: BASOPHILS 2 % (0-2); CORRECTED NUCLEATED RBC 11 /100 WBC (0-0); EOSINOPHILS 4 % (0-4); MYELOCYTES 1 % (0-0); NEUTROPHIL # MANUAL DIFF 5.3 TH/MM3 (1.8-7.7); POLYS (SEG NEUTROPHILS) 47 % (16-70); SCAN/DIFF FINAL DIFF MANUAL; WBC DIFF SAMPLE 100
[2017-02-11 04:16] LABS: PLATELET ESTIMATE SMEAR NORMAL (NORMAL); PLATELET MORPHOLOGY NORMAL (NORMAL); SICKLE CELLS 2+ (NORMAL)
[2017-02-11 04:26] LABS: HOWELL-JOLLY BODIES PRESENT (NONE SEEN)
[2017-02-11 04:28] LABS: TARGET CELLS 1+ (NORMAL)
[2017-02-11] MEDS ORDERED: HYDROmorphone HCL PF 1 MG/ML VIAL IV PUSH ONE (04:30)
== END 2017-02-11 04:54 | disposition home or self-care (01) ==
LOC: NEPE 02:11
DX: D57.00 Hb-SS disease with crisis, unspecified (principal)
CPT/HCPCS: 80053; 85007; 85027; 85044; 96374; 96375; 99284; J1170; J1200; J1885; J2405; J7030

== ENCOUNTER 2017-02-15 02:48 | Emergency (ER) | payer OTHER ==
[~2017-02-15] VITALS: Ht 152.4 cm; Wt 58.0 kg
[2017-02-15 02:50] VITALS: BP 123/72; PULSE 122; RESP 15; TEMP 100.4; O2SAT 92
[2017-02-15] MEDS ORDERED: SODIUM CHLOR 0.9% 1000 ML INJ 1,000 ML IV ONE (03:48)
[2017-02-15] MEDS ORDERED: SODIUM CHLORIDE 0.9% FLUSH 10 ML FLUSH IVF PRN (04:00)
[2017-02-15] MEDS ORDERED: HYDROmorphone HCL PF 1 MG/ML VIAL IVS ONE (04:00)
[2017-02-15] MEDS ORDERED: ONDANSETRON HCL 4 MG/2 ML VIAL IVP ONE (04:00)
[2017-02-15] MEDS ORDERED: diphenhydrAMINE HCL 50 MG/ML VIAL IV PUSH ONE (04:00)
--- NOTE | 2017-02-15 04:14 | PD ---
HPI Chief Complaint: Sickle Cell Time Seen by Provider: 04:12 Travel History International Travel<30 days: No Contact w/Intl Traveler<30days: No Traveled to known affect area: No History of Present Illness HPI 31-year-old female with history of sickle cell disease, presents to the ER today for 1 day history of sickle cell crisis, states that she is having back pain, chest pains, feels like her usual crisis symptoms. Pain is described as a constant 810 ache. She states she has been having fevers of 100.9. She denies any nausea, vomiting, or other symptoms. Modifying Factors: None Associated Signs & Symptoms: Chest and back pains, fevers Risk Factors: Sickle cell PFSH Past Medical History Hx Anticoagulant Therapy: No Anemia: Yes Arthritis: No Asthma: No Autoimmune Disease: No Blood Disorders: Yes (sickle cell disease) Anxiety: No Depression: No Heart Rhythm Problems: No Cancer: No Cardiovascular Problems: Yes (sickle cell disease) High Cholesterol: No Chemotherapy: No Chest Pain: No Congestive Heart Failure: No COPD: No Cerebrovascular Accident: No Diabetes: No Diminished Hearing: No Endocrine: No GERD: No Genitourinary: No Headaches: Yes Hiatal Hernia: No Immune Disorder: No Implanted Vascular Access Dvce: Yes (RIGHT CHEST ) Insomnia: Yes Kidney Stones: Yes Musculoskeletal: No Neurologic: No Psychiatric: No Reproductive: No Respiratory: No Immunizations Current: Yes Migraines: No Pneumonia: Yes Radiation Therapy: No Renal Failure: No Seizures: No Sickle Cell Disease: Yes Sleep Apnea: No Thyroid Disease: No Ulcer: No PNEUMOCCOCAL Vaccine (Year): 2 ?: Not LMP: CURRENT : 2 Para: 1 Miscarriage: 1 : 0 Tubal Ligation: Yes Past Surgical History Abdominal Surgery: Yes (gallbladder removed) AICD: No Arteriovenous Shunt: No Body Medical Devices: right chest port Cardiac Surgery: No Section: Yes Cholecystectomy: Yes Ear Surgery: No Endocrine Surgery: No Eye Surgery: No Genitourinary Surgery: No Gynecologic Surgery: Yes (tubal ligation) Insulin Pump: No Joint Replacement: No Oral Surgery: Yes Pacemaker: No Thoracic Surgery: Yes (CHEST PORT ) Tonsillectomy: Yes Other Surgery: Yes (right chest port) Social History Alcohol Use: No Tobacco Use: No Substance Use: No Allergies-Medications (Allergen,Severity, Reaction): Coded Allergies: morphine (Unverified Allergy, Severe, RASH, 10/3/17) *MDRO Multi-Drug Resistant Organism (Verified Adverse Reaction, Unknown, MRSA, 02/05/17) MRSA (blood) - 12/18/2004 MRSA PCR screen NEGATIVE 08/27/16 & 09/21/16 Cleared per Infection Control Reported Meds & Prescriptions Reported Meds & Active Scripts Active Lortab (Hydrocodone-Acetaminophen) 10-325 Mg Tab 1 Tab PO Q4-6H PRN Review of Systems Except as stated in HPI: all other systems reviewed are Neg Physical Exam Narrative GENERAL: Well-developed young -[place] female patient currently in mild distress. Awake and oriented 3. SKIN: Focused skin assessment warm/dry. HEAD: Atraumatic. Normocephalic. EYES: Pupils equal and round. No scleral icterus. No injection or drainage. ENT: No nasal bleeding or discharge. Mucous membranes pink and moist. NECK: Trachea midline. No JVD. CARDIOVASCULAR: Regular rate and rhythm. No murmur appreciated. RESPIRATORY: No accessory muscle use. Clear to auscultation. Breath sounds equal bilaterally. GASTROINTESTINAL: Abdomen soft, non-tender, nondistended. Hepatic and splenic margins not palpable. MUSCULOSKELETAL: No obvious deformities. No clubbing. No cyanosis. No edema. NEUROLOGICAL: Awake and alert. No obvious cranial nerve deficits. Motor grossly within normal limits. Normal speech. PSYCHIATRIC: Appropriate mood and affect; insight and judgment normal. Data Data Last Documented VS Vital Signs Date Time Temp Pulse Resp B/P (MAP) Pulse Ox O2 Delivery O2 Flow Rate FiO2 02/15/17 02:50 100.4 122 15 123/72 (89) 92 Room Air Orders Orders C-Reactive Protein (Crp) (02/15/17 03:48) Complete Blood Count With Diff (02/15/17 03:48) Comprehensive Metabolic Panel (02/15/17 03:48) Retic Count (02/15/17 03:48) Chest, Single Ap (02/15/17 03:48) Ecg Monitoring (02/15/17 03:48) Iv Access Insert/Monitor (02/15/17 03:48) Oximetry (02/15/17 03:48) Ondansetron Inj (Zofran Inj) (02/15/17 04:00) Sodium Chloride 0.9% Flush (Ns Flush) (02/15/17 04:00) Sodium Chlor 0.9% 1000 Ml Inj (Ns 1000 M (02/15/17 03:48) Hydromorphone Pf Inj (Dilaudid Pf Inj) (02/15/17 04:00) Diphenhydramine Inj (Benadryl Inj) (02/15/17 04:00) Electrocardiogram (02/15/17 03:48) Red Blood Cells (Rbc) (02/15/17 05:10) Blood Product Administration (02/15/17 05:10) Sodium Chlor 0.9% 250 Ml Inj (Ns 250 Ml (02/15/17 05:15) Type And Screen (02/15/17 05:10) Acetamin-Hydrocod 325-5 Mg ([place] 5-325 (02/15/17 05:45) Labs Laboratory Tests Test 02/15/17 04:28 White Blood Count 11.0 TH/MM3 Red Blood Count 1.90 MIL/MM3 Hemoglobin 6.0 GM/DL Hematocrit 16.2 % Mean Corpuscular Volume 85.2 FL Mean Corpuscular Hemoglobin 31.8 PG Mean Corpuscular Hemoglobin Concent 37.3 % Red Cell Distribution Width 23.2 % Platelet Count 304 TH/MM3 Mean Platelet Volume 8.3 FL Neutrophils (%) (Auto) 41.1 % Lymphocytes (%) (Auto) 40.7 % Monocytes (%) (Auto) 10.2 % Eosinophils (%) (Auto) 6.9 % Basophils (%) (Auto) 1.1 % Neutrophils # (Auto) 4.5 TH/MM3 Lymphocytes # (Auto) 4.5 TH/MM3 Monocytes # (Auto) 1.1 TH/MM3 Eosinophils # (Auto) 0.8 TH/MM3 Basophils # (Auto) 0.1 TH/MM3 CBC Comment AUTO DIFF Reticulocyte Count 10.6 % Absolute Reticulocyte Count 201.8 MIL/L Blood Urea Nitrogen 7 MG/DL Creatinine 0.53 MG/DL Random Glucose 97 MG/DL Total Protein 7.6 GM/DL Albumin 3.4 GM/DL Calcium Level 8.1 MG/DL Alkaline Phosphatase 89 U/L Aspartate Amino Transf (AST/SGOT) 97 U/L Alanine Aminotransferase (ALT/SGPT) 23 U/L Total Bilirubin 2.5 MG/DL Sodium Level 139 MEQ/L Potassium Level 4.2 MEQ/L Chloride Level 108 MEQ/L Carbon Dioxide Level 24.7 MEQ/L Anion Gap 6 MEQ/L Estimat Glomerular Filtration Rate 161 ML/MIN C-Reactive Protein 1.29 MG/DL [facility] Medical Decision Making Medical Screen Exam Complete: Yes Emergency Medical Condition: Yes Medical Record Reviewed: Yes Interpretation(s) EKG shows NSR, no ST elevation or depression, and no arrhythmias. No significant T-wave inversions. Laboratory Tests Test 02/15/17 04:28 Red Blood Count 1.90 MIL/MM3 (4.00-5.30) Hemoglobin 6.0 GM/DL (11.6-15.3) Hematocrit 16.2 % (35.0-46.0) Mean Corpuscular Hemoglobin Concent 37.3 % (32.0-36.0) Red Cell Distribution Width 23.2 % (11.6-17.2) Monocytes (%) (Auto) 10.2 % (0.0-8.0) Eosinophils (%) (Auto) 6.9 % (0.0-4.0) Monocytes # (Auto) 1.1 TH/MM3 (0-0.9) Eosinophils # (Auto) 0.8 TH/MM3 (0-0.4) Reticulocyte Count 10.6 % (0.4-3.0) Absolute Reticulocyte Count 201.8 MIL/L (20.0-150.0) Calcium Level 8.1 MG/DL (8.5-10.1) Aspartate Amino Transf (AST/SGOT) 97 U/L (15-37) Total Bilirubin 2.5 MG/DL (0.2-1.0) Chloride Level 108 MEQ/L (98-107) C-Reactive Protein 1.29 MG/DL (0.00-0.30) Last 24 hours Impressions Chest X-Ray 02/15/17 0348 Signed Impressions: Service Date/Time: Wednesday, February 15, 2017 04:04 - CONCLUSION: No acute disease. Marquis Dukes Jr., MD Differential Diagnosis Sickle cell crisis versus acute chest syndrome versus pneumonia versus bronchitis versus dysrhythmias versus metabolic issues versus dehydration versus sepsis Narrative Course EKG did not show any signs of dysrhythmias or ST changes. Her chest x-ray was unremarkable. Lab work does show significant anemia which is suspect is causing some of her symptoms. She was given IV fluids, Dilaudid, Zofran, and Medrol in the ER. On reevaluation at 5 AM, she is feeling improved and her pain is down to a 4 out of 10. Patient will need transfusion for further treatment and at this point, I have urged to patient to be admitted for further treatment. However, she states that she has to go make arrangements for her child before she gets treatment. She states her child is with her sister and she wants to go home and make arrangements and then come back for the transfusion and treatment and to be admitted for further treatment. At this point, considering her symptoms, this would not be medically advisable but I will be releasing her as the patient wishes. She states she will return for further treatment this morning after she makes the rain judgment for her child. She will be leaving AGAINST MEDICAL ADVICE. AMA: The risks of leaving against medical advice without further evaluation treatment were discussed with the patient. These risks include cardiac dysfunction, cardiac dysrhythmia, possible heart attack, possible stroke or . The patient indicated understanding of these risks and appeared to have the capacity to make this decision. Diagnosis Primary Impression: Sickle cell crisis Additional Impression: Anemia, sickle cell with crisis Disposition: 07 AGAINST MEDICAL ADVICE Condition: Stable Diallo Kiran MD Feb 15, 2017 04:14
--- NOTE | 2017-02-15 04:29 | RADRPT ---
EXAM DATE/TIME: 02/15/2017 04:04 [facility] COMPARISON: CHEST SINGLE AP, January 10, 2017, 4:52. INDICATIONS : Short of breath. MEDICAL HISTORY : Sickle Cell disease. SURGICAL HISTORY : Port. ENCOUNTER: Initial ACUITY: 2 days PAIN SCORE: 6/10 LOCATION: Left chest FINDINGS: A single view of the chest demonstrates the lungs to be symmetrically aerated without evidence of mas s, infiltrate or effusion. The cardiomediastinal contours are unremarkable. Osseous structures are intact. A power port is seen on the right. CONCLUSION: No acute disease. Marquis Dukes Jr., MD on February 15, 2017 at 4:27 Board Certified Radiologist. This report was verified electronically.
[2017-02-15 04:47] LABS: AUTOMATED NEUTROPHIL # 4.5 TH/MM3 (1.8-7.7); BASOPHIL # 0.1 TH/MM3 (0-0.2); BASOPHIL % 1.1 % (0.0-2.0); EOSINOPHIL # 0.8 TH/MM3 (0-0.4); EOSINOPHIL % 6.9 % (0.0-4.0); LYMPH % 40.7 % (9.0-44.0); LYMPHOCYTE # 4.5 TH/MM3 (1.0-4.8); MEAN CELL VOLUME 85.2 FL (80.0-100.0); MEAN CORPUSCULAR HEMOGLOBIN 31.8 PG (27.0-34.0); MONO % 10.2 % (0.0-8.0); NEUT % 41.1 % (16.0-70.0); PLATELET COUNT 304 TH/MM3 (150-450); RED CELL DISTRIBUTION WIDTH 23.2 % (11.6-17.2); RETIC % 10.6 % (0.4-3.0)
[2017-02-15 04:55] LABS: HEMO FLAGS AUTO DIFF; MEAN CORPUSCULAR HGB CONC 37.3 % (32.0-36.0); REVIEW FLAG AUTO DIFF
[2017-02-15 05:00] LABS: ALKALINE PHOSPHATASE 89 U/L (45-117); HEMATOCRIT 16.2 % (35.0-46.0); TOTAL BILIRUBIN ADULT 2.5 MG/DL (0.2-1.0)
[2017-02-15] MEDS ORDERED: SODIUM CHLOR 0.9% 250 ML INJ 250 ML IV ONE (05:15)
[2017-02-15 05:21] LABS: ALT (GPT) 23 U/L (10-53); ANION GAP 6 MEQ/L (5-15); AST (GOT) 97 U/L (15-37); BICARBONATE 24.7 MEQ/L (21.0-32.0); BLOOD UREA NITROGEN 7 MG/DL (7-18); CHLORIDE 108 MEQ/L (98-107); GLOMERULAR FILTRATION RATE 161 ML/MIN (>89); POTASSIUM 4.2 MEQ/L (3.5-5.1); SODIUM (NA) 139 MEQ/L (136-145)
[2017-02-15] MEDS ORDERED: ACETAMINOPHEN/HYDROcodone 325 MG/5 MG TAB PO ONE (05:45)
[2017-02-15 06:26] LABS: CORRECTED NUCLEATED RBC 12 /100 WBC (0-0); EOSINOPHILS 2 % (0-4); NEUTROPHIL # MANUAL DIFF 4.6 TH/MM3 (1.8-7.7); POLYS (SEG NEUTROPHILS) 42 % (16-70); WBC DIFF SAMPLE 100
[2017-02-15 06:27] LABS: SICKLE CELLS 2+ (NORMAL)
[2017-02-15 06:28] LABS: PLATELET ESTIMATE SMEAR NORMAL (NORMAL); PLATELET MORPHOLOGY NORMAL (NORMAL); SCAN/DIFF FINAL DIFF MANUAL; TARGET CELLS 2+ (NORMAL)
[2017-02-15 06:29] LABS: OVALOCYTES 1+ (NORMAL)
[2017-02-15 06:30] LABS: KERATOCYTES OCC (NORMAL)
[2017-02-15] MEDS ORDERED: FOLI400T PO (09:07)
--- NOTE | 2017-02-15 14:21 | EKG ---
Date Performed: 02/15/2017 Time Performed: 05:07:27 PTAGE: 31 years EKG: Sinus rhythm NONSPECIFIC T-WAVE ABNORMALITY BORDERLINE ECG PREVIOUS TRACING : 01/10/2017 04.53 DOCTOR: Holger De La Paz Interpretating Date/Time 02/15/2017 14:15:33
== END 2017-02-15 05:59 | disposition left against medical advice (07) ==
LOC: NEPC 02:48
DX: D57.00 Hb-SS disease with crisis, unspecified (principal)
CPT/HCPCS: 71010; 80053; 85007; 85027; 85044; 86140; 86920; 93005; 96374; 96375; J1170; J1200; J1642; J2405; J7030

== ENCOUNTER 2017-02-15 08:19 | Inpatient (IN) | payer OTHER ==
[~2017-02-15] VITALS: Ht 152.4 cm; Wt 61.1 kg
[2017-02-15] VITALS (10 sets, daily range): BP systolic 99–122; BP diastolic 57–67; PULSE 20–104; RESP 14–22; TEMP 97.3–98.8; O2SAT 90–98
[2017-02-15] MEDS ORDERED: FOLI400T PO (09:07)
[2017-02-15] MEDS ORDERED: SODIUM CHLOR 0.9% 250 ML INJ 250 ML IV ONE (09:15)
--- NOTE | 2017-02-15 09:17 | PD ---
HPI Chief Complaint: Sickle Cell Time Seen by Provider: 08:58 Travel History International Travel<30 days: No Contact w/Intl Traveler<30days: No Traveled to known affect area: No History of Present Illness HPI Patient is a 31 year old female with history of sickle cell anemia presents to the ER for evaluation of anemia. patient seen last night for sickle cell pain crisis found to have hemoglobin of 6.0 and recommended for transfusion and admission to the hospital. Patient had personal business to take care of and left AMA. She presents for transfusion. Patient only at the end of the encounter endorses pain and requests pain medication. Denies CP/SOB/Abdominal pain/NV/Diarrhea. But she does state she feels pain all over and asks me to "look at her record to find out what she gets for her pain". PFSH Past Medical History Hx Anticoagulant Therapy: No Anemia: Yes Arthritis: No Asthma: No Autoimmune Disease: No Blood Disorders: Yes (sickle cell disease) Anxiety: No Depression: No Heart Rhythm Problems: No Cancer: No Cardiovascular Problems: Yes (sickle cell disease) High Cholesterol: No Chemotherapy: No Chest Pain: No Congestive Heart Failure: No COPD: No Cerebrovascular Accident: No Diabetes: No Diminished Hearing: No Endocrine: No GERD: No Genitourinary: No Headaches: Yes Hiatal Hernia: No Immune Disorder: No Implanted Vascular Access Dvce: Yes (RIGHT CHEST ) Insomnia: Yes Kidney Stones: Yes Musculoskeletal: No Neurologic: No Psychiatric: No Reproductive: No Respiratory: Yes Immunizations Current: Yes Migraines: No Pneumonia: Yes Radiation Therapy: No Renal Failure: No Seizures: No Sickle Cell Disease: Yes Sleep Apnea: No Thyroid Disease: No Ulcer: No PNEUMOCCOCAL Vaccine (Year): 2 ?: Not LMP: 02/15/17 : 2 Para: 1 Miscarriage: 1 : 0 Tubal Ligation: Yes Past Surgical History Abdominal Surgery: Yes (gallbladder removed) AICD: No Arteriovenous Shunt: No Body Medical Devices: right chest port Cardiac Surgery: No Section: Yes (X 1) Cholecystectomy: Yes Ear Surgery: No Endocrine Surgery: No Eye Surgery: No Genitourinary Surgery: No Gynecologic Surgery: Yes (tubal ligation) Insulin Pump: No Joint Replacement: No Oral Surgery: Yes Pacemaker: No Thoracic Surgery: Yes (CHEST PORT ) Tonsillectomy: Yes Other Surgery: Yes (right chest port) Social History Alcohol Use: No Tobacco Use: No Substance Use: No Allergies-Medications (Allergen,Severity, Reaction): Coded Allergies: morphine (Verified Allergy, Severe, RASH, 02/15/17) *MDRO Multi-Drug Resistant Organism (Verified Adverse Reaction, Unknown, MRSA, 02/15/17) MRSA (blood) - 12/18/2004 MRSA PCR screen NEGATIVE 08/27/16 & 09/21/16 Cleared per Infection Control Reported Meds & Prescriptions Reported Meds & Active Scripts Active Lortab (Hydrocodone-Acetaminophen) 10-325 Mg Tab 1 Tab PO Q4-6H PRN Reported Folic Acid 0.4 Mg Tab 400 Mcg PO DAILY Review of Systems Except as stated in HPI: all other systems reviewed are Neg Physical Exam Narrative GENERAL: WD/WN in nad. SKIN: Warm and dry. HEAD: Atraumatic. Normocephalic. EYES: Pupils equal and round. No scleral icterus. No injection or drainage. ENT: No nasal bleeding or discharge. Mucous membranes pink and moist. NECK: Trachea midline. No JVD. CARDIOVASCULAR: Regular rate and rhythm. RESPIRATORY: No accessory muscle use. Clear to auscultation. Breath sounds equal bilaterally. GASTROINTESTINAL: Abdomen soft, non-tender, nondistended. Hepatic and splenic margins not palpable. MUSCULOSKELETAL: Extremities without clubbing, cyanosis, or edema. No obvious deformities. NEUROLOGICAL: Awake and alert. No obvious cranial nerve deficits. Motor grossly within normal limits. Five out of 5 muscle strength in the arms and legs. Normal speech. PSYCHIATRIC: Appropriate mood and affect; insight and judgment normal. Data Data Last Documented VS Vital Signs Date Time Temp Pulse Resp B/P (MAP) Pulse Ox O2 Delivery O2 Flow Rate FiO2 02/15/17 08:21 97.7 104 14 122/60 (80) 98 Orders Orders Red Blood Cells (Rbc) (02/15/17 09:14) Blood Product Administration (02/15/17 09:14) Sodium Chlor 0.9% 250 Ml Inj (Ns 250 Ml (02/15/17 09:15) Diphenhydramine Inj (Benadryl Inj) (02/15/17 09:30) Hydromorphone Pf Inj (Dilaudid Pf Inj) (02/15/17 09:30) Admit Order (Ed Use Only) (10/7/17 ) Vital Signs (Adult) GURDEEP.Q4H (02/15/17 09:37) Sodium Chloride 0.9% Flush (Ns Flush) (02/15/17 09:45) Sodium Chloride 0.9% Flush (Ns Flush) (02/15/17 21:00) Type And Screen (02/15/17 09:36) MDM Medical Decision Making Medical Screen Exam Complete: Yes Emergency Medical Condition: Yes Differential Diagnosis Anemia, Aplastic crisis, chronic anemia, occlusive crisis. Narrative Course patient with hbg of 6.0 has indication for admission and transfusion. She is agreeable after discussion of R/B/C/A of transfusion. Discussed with Dr. Lyons for admission. Labs reviewed from early ED visit. No indication for further workup at this time. Pritesh Deng MD Feb 15, 2017 09:17
[2017-02-15] MEDS ORDERED: diphenhydrAMINE HCL 50 MG/ML VIAL IV PUSH ONE (09:30)
[2017-02-15] MEDS ORDERED: HYDROmorphone HCL PF 1 MG/ML VIAL IV PUSH ONE (09:30)
[2017-02-15] MEDS: SODIUM CHLORIDE 0.9% FLUSH 10 ML FLUSH IV FLUSH PRN ×3 (09:42→23:17)
--- NOTE | 2017-02-15 10:03 | HHI.HP ---
HPI Service Family Medicine Primary Care Physician No Primary Care Physician Admission Diagnosis Sickle Cell crisis with anemia requiring transfusion. Diagnoses: International Travel<30 Days: No Contact w/Intl Traveler<30days: No Known Affected Area: No History of Present Illness 31-year-old female with sickle cell disease, and history of multiple hospitalizations for sickle cell crisis, returns to the ED this morning for sickle cell crisis; she has been experiencing leg pain, back pain, and epigastric pain since 8 AM yesterday. He felt the sickle cell crisis coming on and it got much worse yesterday afternoon. She normally takes Lortab 10 when she feels her crisis coming on, however this time the Lortab did not work. She is also on her period right now which is commonly when she experiences her worst exacerbations. She started her period 2 days ago and she has had a regular flow, requiring 2-3 pads per day. She felt a little fatigued this week but not much more than usual. He denies any chest pain or shortness of breath. She did have a fever of 100.9 at home. She came into the ED at 3 AM and was found to have a hemoglobin of 6.0 and a temperature of 100.4. However, she had to leave AMA because she had to take care of her cat at home. The patient has a history of multiple admissions for sickle cell crisis, the last being in December. She has 3-4 exacerbations per year and requires 2-3 transfusions per year. Her engineer byproduct is Dr. Rivas, and her baseline hemoglobin is 8-9. (Philly Cooney MD R2) Review of Systems Constitutional: DENIES: Weight loss, Dizziness Endocrine: DENIES: Polyuria, Polyphagia Eyes: DENIES: Eye inflammation, Eye pain Ears, nose, mouth, throat: DENIES: Hearing loss, Vertigo Respiratory: DENIES: Sputum production, Shortness of breath Cardiovascular: DENIES: Palpitations, Syncope Gastrointestinal: DENIES: Diarrhea, Nausea Genitourinary: DENIES: Urgency Musculoskeletal: DENIES: Stiffness, Joint Swelling Integumentary: DENIES: Pruritus Hematologic/lymphatic: DENIES: Bruising Psychiatric: DENIES: Anxiety, Confusion (Philly Cooney MD R2) Past Family Social History Past Medical History Sickled Cell Disease - diagnosed at 1 years old, hx per HPI Multiple blood transfusions -2-3x/year Past Surgical History Tubal ligation [id number]-u-[id number] placement : 2005 Cholecystectomy 1995 (Philly Cooney MD R2) Allergies: Coded Allergies: morphine (Verified Allergy, Severe, RASH, 02/15/17) *MDRO Multi-Drug Resistant Organism (Verified Adverse Reaction, Unknown, MRSA, 02/15/17) MRSA (blood) - 12/18/2004 MRSA PCR screen NEGATIVE 08/27/16 & 09/21/16 Cleared per Infection Control Family History sister- sickle cell parents- sickle cell trait Social History denies smoking, drinking, drugs social: school and work, lives at home with son (Philly Cooney MD R2) Physical Exam Vital Signs Vital Signs Date Time Temp Pulse Resp B/P (MAP) Pulse Ox O2 Delivery O2 Flow Rate FiO2 02/15/17 09:50 96 14 109/61 (77) 95 Nasal Cannula 3.00 02/15/17 08:21 97.7 104 14 122/60 (80) 98 Physical Exam GENERAL: This is a well-nourished, well-developed patient, in no apparent distress. SKIN: No rashes, ecchymoses or lesions. Cool and dry. HEAD: Atraumatic. Normocephalic. No temporal or scalp tenderness. EYES: Pupils equal round and reactive. Extraocular motions intact. No scleral icterus. No injection or drainage. ENT: Nose without bleeding, purulent drainage or septal hematoma. Throat without erythema, tonsillar hypertrophy or exudate. Uvula midline. Airway patent. NECK: Trachea midline. No JVD or lymphadenopathy. Supple, nontender, no meningeal signs. CARDIOVASCULAR: Regular rate and rhythm without murmurs, gallops, or rubs. RESPIRATORY: Clear to auscultation. Breath sounds equal bilaterally. No wheezes , rales, or rhonchi. GASTROINTESTINAL: Abdomen soft, non-tender, nondistended. No hepato-splenomegaly , or palpable masses. No guarding. MUSCULOSKELETAL: Extremities without clubbing, cyanosis, or edema. tenderness to light touch of legs, arms, and spine, no erythema or swelling, no pitting edema. Negative Homans sign bilaterally. NEUROLOGICAL: Awake and alert. Cranial nerves II through XII intact. Motor and sensory grossly within normal limits. Five out of 5 muscle strength in all muscle groups. Normal speech. (Philly Cooney MD R2) Caprini VTE Risk Assessment Caprini VTE Risk Assessment: No/Low Risk (score <= 1) Caprini Risk Assessment Model Point Value = 1 Point Value = 2 Point Value = 3 Point Value = 5 Age 41-60 Minor surgery BMI > 25 kg/m2 Swollen legs Varicose veins or History of unexplained or recurrent spontaneous Oral contraceptives or hormone replacement Sepsis (< 1 month) Serious lung disease, including pneumonia (< 1 month) Abnormal pulmonary function Acute myocardial infarction Congestive heart failure (< 1 month) History of inflammatory bowel disease Medical patient at bed rest Age 61-74 Arthroscopic surgery Major open surgery (> 45 min) Laparoscopic surgery (> 45 min) Malignancy Confined to bed (> 72 hours) Immobilizing plaster cast Central venous access Age >= 75 History of VTE Family history of VTE Factor V Leiden Prothrombin [id number] Lupus anticoagulant Anticardiolipin antibodies Elevated serum homocysteine Heparin-induced thrombocytopenia Other congenital or acquired thrombophilia Stroke (< 1 month) Elective arthroplasty Hip, pelvis, or leg fracture Acute spinal cord injury (< 1 month) Prophylaxis Regimen Total Risk Factor Score Risk Level Prophylaxis Regimen 0-1 Low Early ambulation 2 Moderate Order ONE of the following: *Sequential Compression Device (SCD) *Heparin 5000 units SQ BID 3-4 Higher Order ONE of the following medications: *Heparin 5000 units SQ TID *Enoxaparin/Lovenox 40 mg SQ daily (WT < 150 kg, CrCl > 30 mL/min) *Enoxaparin/Lovenox 30 mg SQ daily (WT < 150 kg, CrCl > 10-29 mL/min) *Enoxaparin/Lovenox 30 mg SQ BID (WT < 150 kg, CrCl > 30 mL/min) AND/OR *Sequential Compression Device (SCD) 5 or more Highest Order ONE of the following medications: *Heparin 5000 units SQ TID (Preferred with Epidurals) *Enoxaparin/Lovenox 40 mg SQ daily (WT < 150 kg, CrCl > 30 mL/min) *Enoxaparin/Lovenox 30 mg SQ daily (WT < 150 kg, CrCl > 10-29 mL/min) *Enoxaparin/Lovenox 30 mg SQ BID (WT < 150 kg, CrCl > 30 mL/min) AND *Sequential Compression Device (SCD) (Philly Cooney MD R2) Assessment and Plan Assessment and Plan 31-year-old female with sickle cell disease admitted for sickle cell crisis and acute anemia Code Status Full code Discussed Condition With Dr. Lyons (Philly Cooney MD R2) Attending Attestation THIS CASE WAS DISCUSSED WITH THE RESIDENT PHYSICIANS. I HAVE REVIEWED THE RECORD AND AGREE WITH THE ABOVE NOTE AND PLAN OF CARE WAS DISCUSSED. I HAVE AUTHORIZED THE ORDER FOR ADMISSION TO AN IN-PATIENT STATUS. (Devin Potts MD) Problem List: (1) Sickle cell pain crisis ICD Codes: D57.00 - Hb-SS disease with crisis, unspecified Status: Acute Plan: Patient with history of sickle cell disease reports acute pain crisis. Patient is afebrile and vital signs are stable. Patient has had 9 visits to the ED over the past 5 months due to pain crises. -Hemoglobin at 3AM 6.0 -Transfuse 2U PRBC -See fluids below -Dilaudid 1 mg IV Q3hrs pain 1-5, Dilaudid 2mg IV q3h pain 5-10 -Benadryl prn Itching -Continue home folate - Incentive spirometer -CXR: No acute disease. (2) fen/ppx Status: Chronic Plan: Fluid: Half normal Saline at 100 mL per hour Electrolytes: Within normal limits, follow-up BMP Nutrition: Regular diet DVT prophylaxis: Heparin every 8, SCDs (Philly Cooney MD R2) Physician Certification 2 Midnight Certification Type: Admission for Inpatient Services Order for Inpatient Services The services are ordered in accordance with Medicare regulations or non- Medicare payer requirements, as applicable. In the case of services not specified as inpatient-only, they are appropriately provided as inpatient services in accordance with the 2-midnight benchmark. Estimated LOS (days): 2 days is the estimated time the patient will need to remain in the hospital, assuming treatment plan goals are met and no additional complications. Post-Hospital Plan: Home (Philly Cooney MD R2) Philly Cooney MD R2 Feb 15, 2017 10:03 Devin Potts MD Feb 15, 2017 12:55
[2017-02-15] MEDS ORDERED: diphenhydrAMINE HCL 25 MG CAP PO PRN ×3 (10:30→12:30)
[2017-02-15] MEDS ORDERED: HYDROmorphone HCL PF 2 MG/ML VIAL IV PUSH PRN ×3 (10:30→15:45)
[2017-02-15] MEDS ORDERED: HYDROmorphone HCL PF 1 MG/ML VIAL IV PUSH PRN ×2 (10:30→12:30)
[2017-02-15] MEDS ORDERED: DOCUSATE SODIUM 50 MG/SENNA 8.6 MG TAB PO PRN (10:30)
[2017-02-15] MEDS ORDERED: ACETAMINOPHEN 325 MG TAB PO PRN ×2 (10:30→11:00)
[2017-02-15] MEDS ORDERED: MAGNESIUM HYDROXIDE SUSP 30 ML CUP PO PRN (10:30)
[2017-02-15] MEDS ORDERED: RESP: ALBUTEROL 2.5 MG/IPRATROPIUM 0.5 MG NEB (PRN) INH (10:30)
[2017-02-15] MEDS: HEPARIN SODIUM - SQ 10,000 UNITS/ML VIAL SQ SCH (11:00)
[2017-02-15 11:59] LABS: POTASSIUM 4.1 MEQ/L (3.5-5.1)
--- NOTE | 2017-02-15 12:54 | HHI.HP ---
HPI Service Family Medicine Primary Care Physician No Primary Care Physician Admission Diagnosis Sickle Cell crisis with anemia requiring transfusion. Diagnoses: (1) Sickle cell pain crisis (2) fen/ppx International Travel<30 Days: No Contact w/Intl Traveler<30days: No Known Affected Area: No History of Present Illness 31-year-old female with a history of sickle cell disease and multiple sickle cell crisis/attacks presenting to the hospital with 1 day history of progressive low back/leg pain that is now described as full body pain. She states that this began yesterday while she was at work and became much worse throughout the day. She tried to go home, hydrate herself and take pain medication, however this did not seem to help and she presented to the hospital this morning where she was found to have a hemoglobin of 6 and it was recommended that she be admitted to the hospital for blood transfusion and treatment of her sickle cell crisis. She had to take care of her son, so she left the hospital AMA but returned for admission and further treatment. She states that her sickle cell crisis are usually associated with her menses, and she has been on her menses for the last 2 days and she describes them as moderate to heavy. She denies any melena or hematochezia, denies any nausea or vomiting, denies any fevers or chills, denies any chest pain or shortness of breath, denies any cough or sputum production. The patient has a history of multiple admissions for sickle cell crisis, the last being in December. She has 3-4 exacerbations per year and requires 2-3 transfusions per year. Her manager hvac is Dr. Rivas, and her baseline hemoglobin is 8-9. Review of Systems Constitutional: DENIES: Fever, Chills Eyes: DENIES: Blurred vision Respiratory: DENIES: Cough, Wheezing, Hemoptysis, Sputum production, Shortness of breath Cardiovascular: DENIES: Chest pain, Palpitations, Syncope, Dyspnea on Exertion Gastrointestinal: COMPLAINS OF: Abdominal pain, DENIES: Black stools, Bloody stools, Constipation, Diarrhea, Nausea, Vomiting Genitourinary: DENIES: Abnormal vaginal bleeding, Dysuria Musculoskeletal: COMPLAINS OF: Joint pain, Muscle aches, Back pain, Neck pain Hematologic/lymphatic: DENIES: Bruising Past Family Social History Past Medical History Sickled Cell Disease - diagnosed at 1 years old, hx per HPI Multiple blood transfusions -2-3x/year Past Surgical History Tubal ligation Qrcijx-i-Ffjt placement : 2005 Cholecystectomy 1994 Allergies: Coded Allergies: morphine (Verified Allergy, Severe, RASH, 02/15/17) *MDRO Multi-Drug Resistant Organism (Verified Adverse Reaction, Unknown, MRSA, 02/15/17) MRSA (blood) - 12/18/2004 MRSA PCR screen NEGATIVE 08/27/16 & 09/21/16 Cleared per Infection Control Family History sister- sickle cell parents- sickle cell trait Social History denies smoking, drinking, drugs social: school and work, lives at home with son Physical Exam Vital Signs Vital Signs Date Time Temp Pulse Resp B/P (MAP) Pulse Ox O2 Delivery O2 Flow Rate FiO2 02/15/17 12:00 97.8 89 20 99/61 (74) 92 02/15/17 11:05 02/15/17 10:58 20 02/15/17 09:50 96 14 109/61 (77) 95 Nasal Cannula 3.00 02/15/17 08:21 97.7 104 14 122/60 (80) 98 Physical Exam GENERAL: This is a well-nourished, well-developed patient, in no apparent distress. SKIN: No rashes, ecchymoses or lesions. Cool and dry. CARDIOVASCULAR: Regular rate and rhythm without murmurs, gallops, or rubs. RESPIRATORY: Clear to auscultation. Breath sounds equal bilaterally. No wheezes , rales, or rhonchi. GASTROINTESTINAL: Abdomen soft, non-tender, nondistended. MUSCULOSKELETAL: Extremities without clubbing, cyanosis, or edema. Diffusely painful with musculoskeletal exam, but no distinct areas of erythema, swelling, or gross abnormality. NEUROLOGICAL: Awake and alert. Normal speech. Laboratory Laboratory Tests Test 02/15/17 11:10 Blood Urea Nitrogen 6 Creatinine 0.47 Random Glucose 100 Calcium Level 7.8 Lactate Dehydrogenase 1111 Sodium Level 141 Potassium Level 4.1 Chloride Level 110 Carbon Dioxide Level 25.0 Anion Gap 6 Estimat Glomerular Filtration Rate 185 CBC on 02/15/17: WBC 11.0, hemoglobin 6.0, hematocrit 16.2, platelets 304 CRP on 02/15/17:1.29 Result Diagram: 02/15/17 1110 Imaging 02/15/17: Chest x-ray - Single view of the chest demonstrates lungs to be symmetrically aerated without evidence of mass, infiltrate, or effusion. Cardiomediastinal contours are unremarkable. Osseous structures are intact. Power port is seen on the right Septic Shock Reassessment Heart: Regular rate and rhythm Lungs: Clear Skin: Warm Peripheral Pulses: Bounding Right Radial Bounding Left Radial Capillary Refill: Brisk Caprini VTE Risk Assessment Caprini VTE Risk Assessment: No/Low Risk (score <= 1) Caprini Risk Assessment Model Point Value = 1 Point Value = 2 Point Value = 3 Point Value = 5 Age 41-60 Minor surgery BMI > 25 kg/m2 Swollen legs Varicose veins or History of unexplained or recurrent spontaneous Oral contraceptives or hormone replacement Sepsis (< 1 month) Serious lung disease, including pneumonia (< 1 month) Abnormal pulmonary function Acute myocardial infarction Congestive heart failure (< 1 month) History of inflammatory bowel disease Medical patient at bed rest Age 61-74 Arthroscopic surgery Major open surgery (> 45 min) Laparoscopic surgery (> 45 min) Malignancy Confined to bed (> 72 hours) Immobilizing plaster cast Central venous access Age >= 75 History of VTE Family history of VTE Factor V Leiden Prothrombin [id number] Lupus anticoagulant Anticardiolipin antibodies Elevated serum homocysteine Heparin-induced thrombocytopenia Other congenital or acquired thrombophilia Stroke (< 1 month) Elective arthroplasty Hip, pelvis, or leg fracture Acute spinal cord injury (< 1 month) Prophylaxis Regimen Total Risk Factor Score Risk Level Prophylaxis Regimen 0-1 Low Early ambulation 2 Moderate Order ONE of the following: *Sequential Compression Device (SCD) *Heparin 5000 units SQ BID 3-4 Higher Order ONE of the following medications: *Heparin 5000 units SQ TID *Enoxaparin/Lovenox 40 mg SQ daily (WT < 150 kg, CrCl > 30 mL/min) *Enoxaparin/Lovenox 30 mg SQ daily (WT < 150 kg, CrCl > 10-29 mL/min) *Enoxaparin/Lovenox 30 mg SQ BID (WT < 150 kg, CrCl > 30 mL/min) AND/OR *Sequential Compression Device (SCD) 5 or more Highest Order ONE of the following medications: *Heparin 5000 units SQ TID (Preferred with Epidurals) *Enoxaparin/Lovenox 40 mg SQ daily (WT < 150 kg, CrCl > 30 mL/min) *Enoxaparin/Lovenox 30 mg SQ daily (WT < 150 kg, CrCl > 10-29 mL/min) *Enoxaparin/Lovenox 30 mg SQ BID (WT < 150 kg, CrCl > 30 mL/min) AND *Sequential Compression Device (SCD) Assessment and Plan Assessment and Plan 31-year-old female with sickle cell disease admitted for sickle cell crisis and acute anemia Problem List: (1) Sickle cell pain crisis ICD Codes: D57.00 - Hb-SS disease with crisis, unspecified Status: Acute Plan: Patient with history of sickle cell disease reports acute pain crisis. Patient is afebrile without leukocytosis or acute findings on chest x-ray. Consult placed for hematology to evaluate patient, patient's manager hvac is Dr. Rivas in [place] who does not round in this hospital - Hemoglobin at 3AM 6.0 -Transfuse 2U PRBC per emergency department orders - IV fluid hydration with 1/2 normal Saline at 100 mL per hour - Dilaudid 1 mg IV Q3hrs pain 1-5, Dilaudid 2mg IV q3h pain 5-10 - Benadryl prn Itching - Continue home folate - Started on hydroxyurea - Incentive spirometer - CXR: No acute disease. (2) fen/ppx Status: Chronic Plan: Fluid: Half normal Saline at 100 mL per hour Electrolytes: Within normal limits, follow-up BMP Nutrition: Regular diet DVT prophylaxis: Heparin every 8, SCDs Physician Certification 2 Midnight Certification Type: Admission for Inpatient Services Order for Inpatient Services The services are ordered in accordance with Medicare regulations or non- Medicare payer requirements, as applicable. In the case of services not specified as inpatient-only, they are appropriately provided as inpatient services in accordance with the 2-midnight benchmark. Estimated LOS (days): 2 2 days is the estimated time the patient will need to remain in the hospital, assuming treatment plan goals are met and no additional complications. Post-Hospital Plan: Home Devin Potts MD Feb 15, 2017 12:54
--- NOTE | 2017-02-15 16:40 | MB ---
cc: GISSELLE LOU MD DATE OF CONSULTATION: 02/15/2017. REASON FOR CONSULTATION / HEMATOLOGIC ISSUE: Hemoglobin sickle-cell disease, the patient presenting with pain crisis. CONSULTATION REQUESTED BY: Dr. Potts of Family Medicine. PRIMARY SHAREPOINT ADMINISTRATOR: Dr. Melissa Pineda of [facility]. CHIEF COMPLAINT: The patient reports pain in her back, shoulders legs and hips which started about 24 hours ago. She reports the pain was provoked by her menstrual cycle. She presented to the emergency department last night for pain management. She was given pain medications. She left and because of pain did not improve at home and because it did not respond to her oral opioids, she came back into the emergency department earlier this morning and was admitted to the hospital. Blood work drawn last night revealed a hemoglobin of 6 gm/dl. The hematology service has been asked to see her for management of her sickle cell pain crisis. Her pain crisis appears not to be complicated by acute chest syndrome, pneumonia, acute stroke or avascular necrosis. PAST MEDICAL HISTORY: 1. Hemoglobin sickle-cell disease. 2. Recurrent pain crises. 3. High tolerance for opioid pain medications. 4. Suspected opioid pain medication dependence. 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 PAST SURGICAL HISTORY: 1. Tubal ligation. 2. Infusion port placement. 3. Cholecystectomy. 4. section. FAMILY HISTORY: Sister with sickle cell disease. Parents with sickle cell traits. SOCIAL HISTORY: Denies smoking, alcohol. 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 She does have son who is 9 years old. She lives at home with him. She lives with her grandmother. ALLERGIES: MORPHINE. CURRENT INPATIENT MEDICATIONS: 1. Folic acid 1 milligram once daily. 2. Hydroxyurea 500 milligrams p.o. daily. 3. Normal saline 100 cc/hour. 4. Heparin 5000 units subcutaneous q. 8 hours. 5. Hydromorphone 2 milligrams IV every 3 hours mixed in 100 cc normal saline infused over thirty minutes. 6. Tylenol 650 milligrams q. 4 hours as needed for pain. 7. Colace / Senna two tablets twice a day as needed for constipation. REVIEW OF SYSTEMS: A thirteen point review of systems was obtained and the following are the pertinent positives and negatives. CONSTITUTIONAL: Fatigue, weakness, she reports having had a low grade fever of 100.9 degrees Fahrenheit last night. She reports her appetite is fair. She denies overt bleeding. HEAD, EYES, EARS, NOSE, THROAT: No complaints. RESPIRATORY: Denies respiratory difficulty, she denies cough, shortness of breath. She denies pleuritic chest pain. CARDIOVASCULAR: Denies angina-like chest pain, PND, orthopnea. Denies lower extremity edema. GI: Denies nausea, vomiting, diarrhea, hematochezia, or melena. UG: Reports currently being on her menstrual cycle. BURNER OPERATOR: Denies any focal sensory or motor deficits. MUSCULOSKELETAL: Please note she has sickle cell related back pain, hip pain and shoulder pain. PHYSICAL EXAMINATION Vital signs: Temperature 98.6 degrees Fahrenheit, heart rate 91 beats minute, blood pressure is 100/65, O2 sats 92% 3 liters nasal cannula. GENERAL PHYSICAL APPEARANCE: Ms. Ching is a 31-year-old female who is sitting up in bed. She appears to be in no acute distress and her son is at bedside. HEAD, EYES, EARS, NOSE, THROAT: Head is atraumatic and normocephalic. Conjunctivae are pale. The sclerae are icteric. Extraocular muscles intact. Pupils equal, round and reactive to light and accommodation. ORAL EXAM: No pharyngeal erythema. NECK EXAM: No palpable cervical or supraclavicular lymphadenopathy. RESPIRATORY EXAM: Good air movement bilaterally. No added breath sounds. CARDIOVASCULAR EXAM: Regular rate and rhythm. S1, S2. No obvious murmurs, rubs or gallops. ABDOMINAL EXAM: Protuberant, soft, nontender and nondistended. No palpable organ enlargement. LOWER EXTREMITIES: No pretibial edema. No calf tenderness. BURNER OPERATOR: No focal sensory or motor deficits. LABORATORY FINDINGS: The blood work dated 02/15/2017: WBC count 11, hemoglobin 6 gm/dl, hematocrit 16%, platelet count 304,000. Absolute neutrophil count is 4.5. Sickle cells were noted, target cells noted, karyocytes and reticulocytes were noted. Chemistries: Sodium 139, potassium 4.2, chloride 108, bicarb 24.7, BUN 7, creatinine 0.53, EGFR 161, random glucose 97, calcium 8.1, total bilirubin 2.5, AST 97, ALT 23, alkaline phosphatase 89, CRP 1.29, albumin 3.4. IMAGING STUDIES: Chest x-ray dated 02/15/2017 performed in the emergency department reveals no acute disease. ASSESSMENT: Ms. Ching is a 31-year-old female with a diagnosis of hemoglobin sickle cell disease. She has recurrent pain crises, frequent hospitalizations, ER visits and outpatient clinic visits for management of her pain symptoms. This patient presents to the hospital with a 24-hour history of sickle cell related pain involving her hips, lower back and shoulders. She tells me she thinks the pain crisis was provoked by her menstrual cycles. The hematology service has been asked to see her for management of her sickle cell pain crisis. She is presently on hydromorphone every three hours. She is on IV fluid hydration and O2 supplementation. RECOMMENDATIONS: 1. Uncomplicated sickle-cell crisis: I would recommend continuing IV fluid hydration. I would change her IV fluids to a hypotonic saline such as half-normal saline to help promote intracellular displacement of free water to help prevent sickling of additional red blood cells. I would recommend incentive spirometry. Continue oxygen supplementation. 2. Management of pain: I would recommend using IV opioids very judiciously in this patient because she has a track record of opioid dependence. She has been discharged from our practice some months ago due to various incidents in which this patient's conduct was concerning for drug-seeking behavior. I did talk to her about breakthrough pain management with intravenous Dilaudid. I told her that for management of her pain, Dilaudid would be infused over thirty minutes rather than being given as a bolused push. This did not sit well with her. She became very quickly abusive. Please note, in the future to consider calling her primary mechanical engineer with [facility] as [facility] is not involved with her outpatient care. Perhaps it would preferable to the patient that her primary mechanical engineer be telephoned and involved with the patient's care going forward. The [facility] will be however available for all inpatient-related care if there are emergencies in the future. Please note that this is the patient's preference and if you review her previous notes, she has refused to see multiple [facility]ologists in the past, including myself. MD BRENDA Olivo/DAREK /3:42 PM /4:07 PM CARLA
[2017-02-15] MEDS: diphenhydrAMINE HCL 50 MG/ML VIAL IV PUSH SCH ×2 (19:59→23:16)
[2017-02-15] MEDS: DEXT 5%-NACL 0.45% 1000 ML INJ 1,000 ML IV SCH (19:59)
[2017-02-15] MEDS: HYDROMORPHONE IV PRN ×2 (20:00→23:21)
[2017-02-15] MEDS: SODIUM CHLORIDE 0.9% IV PRN ×2 (20:00→23:21)
[2017-02-15] MEDS: SODIUM CHLORIDE 0.9% FLUSH 10 ML FLUSH IV FLUSH SCH (20:04)
[2017-02-16] VITALS (7 sets, daily range): BP systolic 95–146; BP diastolic 55–70; PULSE 57–89; RESP 16–20; TEMP 97.3–99; O2SAT 90–99
[2017-02-16] MEDS: diphenhydrAMINE HCL 50 MG/ML VIAL IV PUSH SCH ×8 (02:00→23:00)
[2017-02-16] MEDS: SODIUM CHLORIDE 0.9% IV PRN ×7 (02:15→22:50)
[2017-02-16] MEDS: HYDROMORPHONE IV PRN ×7 (02:15→22:50)
[2017-02-16] MEDS: HEPARIN SODIUM - SQ 10,000 UNITS/ML VIAL SQ SCH ×2 (03:00→11:00)
[2017-02-16 03:28] LABS: REVIEW FLAG FINAL
[2017-02-16] MEDS: DEXT 5%-NACL 0.45% 1000 ML INJ 1,000 ML IV SCH ×2 (05:02→22:50)
[2017-02-16 05:18] LABS: AUTOMATED NEUTROPHIL # 3.5 TH/MM3 (1.8-7.7); BASOPHIL # 0.1 TH/MM3 (0-0.2); BASOPHIL % 1.3 % (0.0-2.0); EOSINOPHIL # 0.8 TH/MM3 (0-0.4); EOSINOPHIL % 8.3 % (0.0-4.0); LYMPH % 41.7 % (9.0-44.0); LYMPHOCYTE # 3.9 TH/MM3 (1.0-4.8); MEAN CELL VOLUME 82.7 FL (80.0-100.0); MEAN CORPUSCULAR HEMOGLOBIN 29.7 PG (27.0-34.0); MEAN CORPUSCULAR HGB CONC 35.9 % (32.0-36.0); MONO % 10.4 % (0.0-8.0); NEUT % 38.3 % (16.0-70.0); PLATELET COUNT 311 TH/MM3 (150-450); RED BLOOD COUNT 3.39 MIL/MM3 (4.00-5.30); RED CELL DISTRIBUTION WIDTH 21.8 % (11.6-17.2); WHITE BLOOD COUNT 9.2 TH/MM3 (4.0-11.0)
[2017-02-16 05:28] LABS: HEMO FLAGS AUTO DIFF
[2017-02-16 07:44] LABS: BANDS 1 % (0-6); CORRECTED NUCLEATED RBC 7 /100 WBC (0-0); EOSINOPHILS 9 % (0-4); NEUTROPHIL # MANUAL DIFF 4.4 TH/MM3 (1.8-7.7); POLYS (SEG NEUTROPHILS) 47 % (16-70); WBC DIFF SAMPLE 100
[2017-02-16 07:45] LABS: SICKLE CELLS 2+ (NORMAL)
[2017-02-16 07:46] LABS: POLYCHROMASIA 2.7 % (0.0-1.9)
[2017-02-16 07:47] LABS: HOWELL-JOLLY BODIES PRESENT (NONE SEEN)
[2017-02-16 07:49] LABS: PLATELET ESTIMATE SMEAR NORMAL (NORMAL); PLATELET MORPHOLOGY NORMAL (NORMAL); SCAN/DIFF FINAL DIFF MANUAL
[2017-02-16] MEDS: FOLIC ACID 1 MG TAB PO SCH (08:31)
[2017-02-16] MEDS: HYDROXYUREA 500 MG CAP PO SCH (08:35)
--- NOTE | 2017-02-16 11:59 | HHI.FPPN ---
Subjective Remarks Pt seen and examined this morning. No acute events overnight. Pt reports that her pain is improving, but is not yet tolerable. She has been afebrile. Chest pain has improved, she denies shortness of breath, cough. She endorsing abdominal cramping. Menstrual bleeding is decreasing. Pain medication is helping. (Christie Henry MD R3) Objective Vitals Vital Signs Date Time Temp Pulse Resp B/P (MAP) Pulse Ox O2 Delivery O2 Flow Rate FiO2 02/16/17 08:00 98.6 77 18 103/60 (74) 93 02/16/17 04:00 98.3 80 16 108/61 (77) 99 02/16/17 00:57 92 21 02/15/17 23:15 98.8 86 16 105/64 91 02/15/17 23:15 Room Air 02/15/17 21:26 97.3 78 16 107/67 93 02/15/17 21:01 98.5 87 16 120/65 93 02/15/17 20:00 Room Air 02/15/17 17:30 98.3 20 20 100/59 02/15/17 16:00 98.5 86 18 107/57 (74) 90 02/15/17 14:50 98.6 86 20 107/57 02/15/17 14:35 98.6 91 22 100/65 02/15/17 14:00 Nasal Cannula 1.00 02/15/17 12:00 97.8 89 20 99/61 (74) 92 I/O 02/15/17 02/15/17 02/15/17 02/16/17 02/16/17 02/16/17 07:00 15:00 23:00 07:00 15:00 23:00 Intake Total 10 ml 1771 ml 1482 ml Balance 10 ml 1771 ml 1482 ml Intake Oral 960 ml 360 ml IV Total 101 ml 812 ml Packed Cells 400 ml 300 ml Blood Product IV Normal Saline Flush 10 ml 310 ml 10 ml # Voids 2 4 # Bowel Movements 1 1 (Christie Henry MD R3) Result Diagram: 02/16/17 0500 02/15/17 1110 Objective Remarks GENERAL: This is a well-nourished, well-developed patient, resting comfortably in bed. SKIN: No rashes, ecchymoses or lesions. Cool and dry. HEAD: Atraumatic. Normocephalic. No temporal or scalp tenderness. EYES: Extraocular motions intact. No scleral icterus. No injection or drainage. ENT: Nose without bleeding, purulent drainage or septal hematoma. Uvula midline. Airway patent. NECK: Trachea midline. No JVD or lymphadenopathy. Supple, nontender, no meningeal signs. CARDIOVASCULAR: Regular rate and rhythm without obvious murmurs, gallops, or rubs. RESPIRATORY: Clear to auscultation. Breath sounds equal bilaterally. No wheezes , rales, or rhonchi. GASTROINTESTINAL: Abdomen soft, non-tender, nondistended. No hepato-splenomegaly , or palpable masses. No guarding. MUSCULOSKELETAL: Extremities without clubbing, cyanosis, or edema. Pt endorses tenderness with palpation of lower back, legs, arms, but is distractible. NEUROLOGICAL: Awake and alert. Cranial nerves II through XII intact. Motor and sensory grossly within normal limits. Five out of 5 muscle strength in all muscle groups. Normal speech. (Christie Henry MD R3) A/P Assessment and Plan 31-year-old female with sickle cell disease admitted for sickle cell crisis and acute anemia Discharge Planning Anticipate discahrege later today or tomorrow, once pain medication stable on oral medications. (Christie Henry MD R3) Attending Attestation Pt. examined and case discussed with resident physicians I have read the above note and agree with the assessment/plan as discussed with me I was involved in all medical decision making for this patient Devin Potts MD (Devin Potts MD) Problem List: (1) Sickle cell pain crisis ICD Codes: D57.00 - Hb-SS disease with crisis, unspecified Status: Acute Plan: Patient with history of sickle cell disease reports acute pain crisis. Patient is afebrile without leukocytosis or acute findings on chest x-ray. Pain control: -Dilaudid 2 mg mixed with normal saline to be infused over 30 minutes, Q3hrs prn breakthrough, use caution with additional IV pain medication due to concern for pain seeking behavior, refer to hematology note. -[place] 10-325 Q4hrs prn pain 5-10 -See fluids below -Benadryl as needed for itching -Home folate continued -Continue Hydroxyurea -Incentive spirometry Imaging: CXR 02/15/17: No acute disease (2) fen/ppx Status: Chronic Plan: Fluid: D5 Half normal Saline at 100 mLs per hour Electrolytes: Within normal limits, continue to monitor Nutrition: Regular diet DVT prophylaxis: Heparin every 8, SCDs (Christie Henry MD R3) Christie Henry MD R3 Feb 16, 2017 11:59 Devin Potts MD Feb 16, 2017 13:34
[2017-02-16] MEDS ORDERED: ACETAMINOPHEN/HYDROcodone 325 MG/5 MG TAB PO PRN (13:30)
[2017-02-16] MEDS: ACETAMINOPHEN/HYDROcodone 325 MG/10 MG TAB PO PRN (20:45)
[2017-02-16] MEDS: SODIUM CHLORIDE 0.9% FLUSH 10 ML FLUSH IV FLUSH SCH (20:46)
[2017-02-16 22:03] LABS: ALT (GPT) 19 U/L (10-53)
[2017-02-16 22:05] LABS: ANION GAP 6 MEQ/L (5-15); AST (GOT) 76 U/L (15-37); BICARBONATE 24.2 MEQ/L (21.0-32.0); BLOOD UREA NITROGEN 7 MG/DL (7-18); CHLORIDE 107 MEQ/L (98-107); GLOMERULAR FILTRATION RATE 180 ML/MIN (>89); SODIUM (NA) 137 MEQ/L (136-145)
[2017-02-16 22:06] LABS: ALKALINE PHOSPHATASE 94 U/L (45-117); TOTAL BILIRUBIN ADULT 1.6 MG/DL (0.2-1.0)
[2017-02-16 22:09] LABS: POTASSIUM 4.1 MEQ/L (3.5-5.1)
[2017-02-16] MEDS: SODIUM CHLORIDE 0.9% FLUSH 10 ML FLUSH IV FLUSH PRN (22:51)
[2017-02-17] VITALS: BP 105/64; PULSE 81; RESP 18; TEMP 98.2; O2SAT 90
[2017-02-17] MEDS: ACETAMINOPHEN/HYDROcodone 325 MG/10 MG TAB PO PRN ×2 (01:11→05:58)
[2017-02-17] MEDS: HYDROMORPHONE IV PRN ×3 (02:58→12:42)
[2017-02-17] MEDS: diphenhydrAMINE HCL 50 MG/ML VIAL IV PUSH SCH ×6 (02:58→16:18)
[2017-02-17] MEDS: SODIUM CHLORIDE 0.9% IV PRN ×3 (02:58→12:42)
[2017-02-17] MEDS: HEPARIN SODIUM - SQ 10,000 UNITS/ML VIAL SQ SCH ×2 (02:59→11:00)
[2017-02-17] MEDS: SODIUM CHLORIDE 0.9% FLUSH 10 ML FLUSH IV FLUSH PRN (03:00)
[2017-02-17 07:05] LABS: AUTOMATED NEUTROPHIL # 2.8 TH/MM3 (1.8-7.7); BASOPHIL % 0.5 % (0.0-2.0); EOSINOPHIL % 11.9 % (0.0-4.0); HEMATOCRIT 29.4 % (35.0-46.0); LYMPH % 43.3 % (9.0-44.0); LYMPHOCYTE # 3.6 TH/MM3 (1.0-4.8); MEAN CELL VOLUME 83.9 FL (80.0-100.0); MEAN CORPUSCULAR HEMOGLOBIN 30.2 PG (27.0-34.0); NEUT % 34.3 % (16.0-70.0); PLATELET COUNT 322 TH/MM3 (150-450); RED CELL DISTRIBUTION WIDTH 22.3 % (11.6-17.2); WHITE BLOOD COUNT 8.2 TH/MM3 (4.0-11.0)
[2017-02-17 07:08] LABS: HEMO FLAGS AUTO DIFF
[2017-02-17 07:28] LABS: ALKALINE PHOSPHATASE 83 U/L (45-117); ALT (GPT) 19 U/L (10-53); TOTAL BILIRUBIN ADULT 1.8 MG/DL (0.2-1.0)
[2017-02-17 07:29] VITALS: O2SAT 99
[2017-02-17 07:33] LABS: ANION GAP 8 MEQ/L (5-15); AST (GOT) 67 U/L (15-37); BICARBONATE 22.3 MEQ/L (21.0-32.0); BLOOD UREA NITROGEN 4 MG/DL (7-18); CHLORIDE 107 MEQ/L (98-107); GLOMERULAR FILTRATION RATE 194 ML/MIN (>89); POTASSIUM 4.2 MEQ/L (3.5-5.1); SODIUM (NA) 137 MEQ/L (136-145)
[2017-02-17] MEDS: FOLIC ACID 1 MG TAB PO SCH (08:07)
[2017-02-17] MEDS: SODIUM CHLORIDE 0.9% FLUSH 10 ML FLUSH IV FLUSH SCH (08:08)
[2017-02-17 08:10] VITALS: BP 107/65; PULSE 76; RESP 17; TEMP 99; O2SAT 94
[2017-02-17] MEDS: HYDROXYUREA 500 MG CAP PO SCH (08:17)
[2017-02-17 08:18] LABS: BASOPHILS 2 % (0-2); CORRECTED NUCLEATED RBC 2 /100 WBC (0-0); EOSINOPHILS 13 % (0-4); NEUTROPHIL # MANUAL DIFF 3.3 TH/MM3 (1.8-7.7); POLYS (SEG NEUTROPHILS) 40 % (16-70); SICKLE CELLS 2+ (NORMAL); WBC DIFF SAMPLE 100
[2017-02-17 08:19] LABS: PLATELET ESTIMATE SMEAR NORMAL (NORMAL); PLATELET MORPHOLOGY NORMAL (NORMAL); SCAN/DIFF FINAL DIFF MANUAL
[2017-02-17 08:20] LABS: HOWELL-JOLLY BODIES PRESENT (NONE SEEN)
--- NOTE | 2017-02-17 09:41 | HHI.FPPN ---
Subjective Remarks No acute events overnight. Afebrile vital signs stable overnight. Patient still complaining of pain. She reports that her chest pain is improved. She still has diffuse pain in her chest and extremities. She reports that her pain is currently a 9 out of 10. She would like her pain to be a 5 out of 10 before leaving the hospital. Discussed plan of care with patient. Patient refused to transition to oral medications. She reports that once her pain is under 5 out of 10, that she will leave the hospital without needing additional IV pain medication. (Flaco Lyons MD R2) Objective Vitals Vital Signs Date Time Temp Pulse Resp B/P (MAP) Pulse Ox O2 Delivery O2 Flow Rate FiO2 02/17/17 08:10 99.0 76 17 107/65 (79) 94 02/17/17 07:29 99 21 02/17/17 00:00 Room Air 02/17/17 00:00 98.2 81 18 105/64 (78) 90 02/16/17 20:00 Room Air 02/16/17 20:00 98.9 89 18 101/61 (74) 90 02/16/17 16:00 97.9 84 18 95/55 (68) 98 02/16/17 12:00 99.0 74 18 106/62 (77) 94 I/O 02/16/17 02/16/17 02/16/17 02/17/17 02/17/17 02/17/17 07:00 15:00 23:00 07:00 15:00 23:00 Intake Total 1482 ml 720 ml 360 ml Balance 1482 ml 720 ml 360 ml Intake Oral 360 ml 720 ml 360 ml IV Total 812 ml Packed Cells 300 ml Blood Product IV Normal Saline Flush 10 ml # Voids 4 4 3 # Bowel Movements 1 1 (Flaco Lyons MD R2) Result Diagram: 02/17/17 0653 02/17/17652 Objective Remarks GENERAL: This is a well-nourished, well-developed patient, resting comfortably in bed. SKIN: No rashes, ecchymoses or lesions. Cool and dry. HEAD: Atraumatic. Normocephalic. EYES: Extraocular motions intact. No scleral icterus. No injection or drainage. ENT: Nose without bleeding, purulent drainage or septal hematoma. Uvula midline. Airway patent. NECK: Trachea midline. No JVD or lymphadenopathy. Supple, nontender, no meningeal signs. CARDIOVASCULAR: Regular rate and rhythm without obvious murmurs, gallops, or rubs. RESPIRATORY: Clear to auscultation. Breath sounds equal bilaterally. No wheezes , rales, or rhonchi. GASTROINTESTINAL: Abdomen soft, non-tender, nondistended. No guarding. MUSCULOSKELETAL: Extremities without clubbing, cyanosis, or edema. No calf tenderness NEUROLOGICAL: Awake and alert. Cranial nerves II through XII grossly intact. Motor and sensory grossly within normal limits. Normal speech. (Flaco Lyons MD R2) A/P Assessment and Plan 31-year-old female with sickle cell disease admitted for sickle cell crisis and acute anemia s/p transfusion of 2u PRBC Discharge Planning Anticipate discahrege later today or tomorrow, once pain under 5/10 and we can discharge with oral medications. (Flaco Lyons MD R2) Attending Attestation Pt. examined and case discussed with resident physicians. I have read the above note and agree with the assessment and plan as discussed with me. I was involved in all medical decision making for this patient. Devin Potts MD (Devin Potts MD) Problem List: (1) Sickle cell pain crisis ICD Codes: D57.00 - Hb-SS disease with crisis, unspecified Status: Acute Plan: Patient with history of sickle cell disease reports acute pain crisis. Patient is afebrile without leukocytosis or acute findings on chest x-ray. Pain control: -Dilaudid 2 mg mixed with normal saline to be infused over 30 minutes, Q4hrs prn for breakthrough pain, use caution with additional IV pain medication due to concern for pain seeking behavior, refer to hematology note. -[place] Q4hrs prn pain 1-10 -See fluids below -Benadryl as needed for itching -Home folate continued -Continue Hydroxyurea -Incentive spirometry Imaging: CXR 02/15/17: No acute disease (2) fen/ppx Status: Chronic Plan: Fluid: D5 Half normal Saline at 100 mLs per hour Electrolytes: Within normal limits, continue to monitor Nutrition: Regular diet DVT prophylaxis: Heparin every 8, SCDs (Flaco Lyons MD R2) Problem List: (1) fen/ppx Status: Chronic Plan: Fluid: D5 Half normal Saline at 100 mLs per hour Electrolytes: Within normal limits, continue to monitor Nutrition: Regular diet DVT prophylaxis: Heparin every 8, SCDs (2) Sickle cell pain crisis ICD Codes: D57.00 - Hb-SS disease with crisis, unspecified Status: Acute Plan: Patient with history of sickle cell disease reports acute pain crisis. Patient is afebrile without leukocytosis or acute findings on chest x-ray. Pain control: -Dilaudid 2 mg mixed with normal saline to be infused over 30 minutes, Q4hrs prn for breakthrough pain, use caution with additional IV pain medication due to concern for pain seeking behavior, refer to hematology note. -[place] Q4hrs prn pain 1-10 -See fluids below -Benadryl as needed for itching -Home folate continued -Continue Hydroxyurea -Incentive spirometry Imaging: CXR 02/15/17: No acute disease (Devin Potts MD) Flaco Lyons MD R2 Feb 17, 2017 09:41 Devin Potts MD Feb 17, 2017 21:03
[2017-02-17 12:12] VITALS: BP 100/58; PULSE 72; RESP 17; TEMP 98.2; O2SAT 95
[2017-02-17] MEDS ORDERED: HYDR500C PO (14:21)
[2017-02-17] MEDS ORDERED: HYDR-3516 PO (14:21)
--- NOTE | 2017-02-17 14:22 | HHI.DCPOC ---
Discharge Care Plan Diagnosis: (1) Anemia, sickle cell with crisis (2) Sickle cell pain crisis (3) Anemia Goals to Promote Your Health * To prevent worsening of your condition and complications, please follow up with your doctor. * To maintain your health at the optimal level, please follow your doctor's instructions/recommendations. Directions to Meet Your Goals Take your medications as prescribed Follow your dietary instruction Follow activity as directed Keep your appointments as scheduled Take your immunizations and boosters as scheduled If your symptoms worsen call your PCP, if no PCP go to Urgent Care Center or Emergency Room Smoking is Dangerous to Your Health. Avoid second hand smoke Call the 24-hour hour crisis hotline for domestic abuse at Flaco Lyons MD R2 Feb 17, 2017 14:22
[2017-02-17] MEDS ORDERED: HYDR-3583 PO (14:25)
[2017-02-17] MEDS ORDERED: HYDROMORPHONE IV PRN (14:30)
[2017-02-17] MEDS ORDERED: SODIUM CHLORIDE 0.9% IV PRN (14:30)
== END 2017-02-17 17:01 | disposition home or self-care (01) | DRG 812 ==
LOC: NEPC 08:19 → NEDA 09:38 → N04A 11:00
PROVIDERS: ADMIT Family Medicine; ATTEND Family Medicine
PROC: 30233N1 Transfusion of Nonautologous Red Blood Cells into Peripheral Vein, Percutaneous Approach (ICD-10-PCS; principal; 2017-02-15)
DX: D57.00 Hb-SS disease with crisis, unspecified (principal)
CPT/HCPCS: 36430; 71010; 80048; 80053; 83615; 85007; 85014; 85018; 85027; 85044; 86140; 86850; 86900; 86901; 86920; 93005; 94150; 96374; 96375; J1170; J1200; J1642; J2405; J7030; P9016

== ENCOUNTER 2017-03-01 01:55 | Emergency (ER) | payer OTHER ==
[~2017-03-01] VITALS: Ht 162.6 cm; Wt 66.0 kg
[~2017-03-01 01:55] MED LIST changes: +FOLI400T PO; -HYDR-3535 PO; +HYDR-3583 PO; +HYDR500C PO
[2017-03-01 01:58] VITALS: BP 124/58; PULSE 78; RESP 16; TEMP 98.2; O2SAT 96
[2017-03-01] MEDS ORDERED: HYDROmorphone HCL PF 1 MG/ML VIAL IV PUSH ONE (02:45)
[2017-03-01] MEDS ORDERED: SODIUM CHLOR 0.9% 1000 ML INJ 1,000 ML IV ONE (02:45)
--- NOTE | 2017-03-01 03:06 | RADRPT ---
EXAM DATE/TIME: 03/01/2017 02:54 [facility] COMPARISON: CHEST SINGLE AP, February 15, 2017, 4:04. INDICATIONS : Sickle cell patient with chest pain. MEDICAL HISTORY : Sickle Cell disease. SURGICAL HISTORY : None. ENCOUNTER: Initial ACUITY: 1 day PAIN SCORE: 7/10 LOCATION: Bilateral chest FINDINGS: PA and lateral views of the chest demonstrate the lungs to be symmetrically aerated without evidence of mass, infiltrate or effusion. There are multiple codfish-type thoracic vertebra consistent with hi story of sickle cell anemia.. Osseous structures are intact. The right-sided implantable port cathet er remains in place. CONCLUSION: No acute disease. Flaco Young MD on March 01, 2017 at 3:04 Board Certified Radiologist. This report was verified electronically.
[2017-03-01] MEDS ORDERED: diphenhydrAMINE HCL 25 MG CAP PO ONE (03:15)
[2017-03-01] MEDS ORDERED: ONDANSETRON HCL 4 MG/2 ML VIAL IV PUSH ONE (03:15)
[2017-03-01 03:39] LABS: AUTOMATED NEUTROPHIL # 5.8 TH/MM3 (1.8-7.7); BASOPHIL # 0.1 TH/MM3 (0-0.2); BASOPHIL % 1.1 % (0.0-2.0); EOSINOPHIL # 0.2 TH/MM3 (0-0.4); EOSINOPHIL % 2.2 % (0.0-4.0); HEMATOCRIT 21.3 % (35.0-46.0); HEMOGLOBIN 7.5 GM/DL (11.6-15.3); LYMPH % 28.2 % (9.0-44.0); LYMPHOCYTE # 2.9 TH/MM3 (1.0-4.8); MEAN CELL VOLUME 84.6 FL (80.0-100.0); MEAN CORPUSCULAR HEMOGLOBIN 29.8 PG (27.0-34.0); MEAN CORPUSCULAR HGB CONC 35.2 % (32.0-36.0); MEAN PLATELET VOLUME 8.3 FL (7.0-11.0); MONO % 12.9 % (0.0-8.0); MONOCYTE # 1.3 TH/MM3 (0-0.9); NEUT % 55.6 % (16.0-70.0); PLATELET COUNT 457 TH/MM3 (150-450); RED BLOOD COUNT 2.52 MIL/MM3 (4.00-5.30); RED CELL DISTRIBUTION WIDTH 19.6 % (11.6-17.2); RETIC # 203.5 MIL/L (20.0-150.0); RETIC % 8.1 % (0.4-3.0); WHITE BLOOD COUNT 10.4 TH/MM3 (4.0-11.0)
[2017-03-01 03:45] VITALS: BP 102/64; PULSE 73; RESP 18; O2SAT 96
[2017-03-01 04:01] LABS: BICARBONATE 27.8 MEQ/L (21.0-32.0); CALCIUM 8.7 MG/DL (8.5-10.1); CREATININE 0.4 MG/DL (0.50-1.00)
[2017-03-01 04:25] LABS: BANDS 1 % (0-6); BASOPHILS 1 % (0-2); CORRECTED NUCLEATED RBC 1 /100 WBC (0-0); LYMPHOCYTES 24 % (9-44); MONOCYTES 17 % (0-8); NEUTROPHIL # MANUAL DIFF 5.6 TH/MM3 (1.8-7.7); NUCLEATED RED BLOOD CELL 1 (0-0); POLYS (SEG NEUTROPHILS) 53 % (16-70)
[2017-03-01 04:31] LABS: SICKLE CELLS 2+ (NORMAL)
[2017-03-01 04:32] LABS: HOWELL-JOLLY BODIES PRESENT (NONE SEEN); KERATOCYTES 1+ (NORMAL); POLYCHROMASIA 2.2 % (0.0-1.9)
--- NOTE | 2017-03-01 05:56 | PD ---
HPI Chief Complaint: Sickle Cell Time Seen by Provider: 02:29 Travel History International Travel<30 days: No Contact w/Intl Traveler<30days: No Traveled to known affect area: No History of Present Illness HPI Patient is a 31-year-old female with history of sickle cell disease, who comes in complaining of crisis. She is here often and well-known to this emergency department. She says for the past week she has had a cold and she feels like says triggered her crisis. She says she feels weak. She denies shortness of breath. She denies chest pain. She says she has pain in her hands and feet. She denies fever or chills. She says she took Lortab at home without relief. PFSH Past Medical History Hx Anticoagulant Therapy: No Anemia: Yes Arthritis: No Asthma: No Autoimmune Disease: No Blood Disorders: Yes (sickle cell disease) Anxiety: No Depression: No Heart Rhythm Problems: No Cancer: No Cardiovascular Problems: Yes (sickle cell disease) High Cholesterol: No Chemotherapy: No Chest Pain: No Congestive Heart Failure: No COPD: No Cerebrovascular Accident: No Diabetes: No Diminished Hearing: No Endocrine: No GERD: No Genitourinary: No Headaches: Yes Hiatal Hernia: No Immune Disorder: No Implanted Vascular Access Dvce: Yes (RIGHT CHEST ) Insomnia: Yes Kidney Stones: Yes Musculoskeletal: No Neurologic: No Psychiatric: No Reproductive: No Respiratory: No Immunizations Current: Yes Migraines: No Pneumonia: Yes Radiation Therapy: No Renal Failure: No Seizures: No Sickle Cell Disease: Yes Sleep Apnea: No Thyroid Disease: No Ulcer: No PNEUMOCCOCAL Vaccine (Year): 2 ?: Unknown : 2 Para: 1 Miscarriage: 1 : 0 Tubal Ligation: Yes Past Surgical History Abdominal Surgery: Yes (gallbladder removed) AICD: No Arteriovenous Shunt: No Body Medical Devices: right chest port Cardiac Surgery: No Section: Yes (X 1) Cholecystectomy: Yes Ear Surgery: No Endocrine Surgery: No Eye Surgery: No Genitourinary Surgery: No Gynecologic Surgery: Yes (tubal ligation) Insulin Pump: No Joint Replacement: No Oral Surgery: Yes Pacemaker: No Thoracic Surgery: Yes (CHEST PORT ) Tonsillectomy: Yes Other Surgery: Yes (right chest port) Social History Alcohol Use: No Tobacco Use: No Substance Use: No Allergies-Medications (Allergen,Severity, Reaction): Coded Allergies: morphine (Verified Allergy, Severe, RASH, 02/15/17) *MDRO Multi-Drug Resistant Organism (Verified Adverse Reaction, Unknown, MRSA, 02/15/17) MRSA (blood) - 12/18/2004 MRSA PCR screen NEGATIVE 08/27/16 & 09/21/16 Cleared per Infection Control Reported Meds & Prescriptions Reported Meds & Active Scripts Active Hydrocodone-Acetaminophen 10-325 mg Tab 1 Tab PO Q6H PRN Hydrea (Hydroxyurea) 500 Mg Cap 500 Mg PO DAILY 30 Days Reported Folic Acid 0.4 Mg Tab 400 Mcg PO DAILY Review of Systems Except as stated in HPI: all other systems reviewed are Neg General / Constitutional: No: Fever, Chills Eyes: No: Blurred Vision HENT: Positive: Congestion, No: Headaches Cardiovascular: No: Chest Pain or Discomfort Respiratory: No: Shortness of Breath Gastrointestinal: No: Nausea, Vomiting Musculoskeletal: Positive: Myalgias Skin: No Rash, No Change in Pigmentation Neurologic: No: Weakness, Dizziness Physical Exam Narrative GENERAL: Awake and alert, in no acute distress. SKIN: Focused skin assessment warm/dry. HEAD: Atraumatic. Normocephalic. EYES: Pupils equal and round. No scleral icterus. ENT: Mucous membranes pink and moist. NECK: Trachea midline. No JVD. CARDIOVASCULAR: Regular rate and rhythm. No murmur appreciated. RESPIRATORY: No accessory muscle use. Clear to auscultation. Breath sounds equal bilaterally. GASTROINTESTINAL: Abdomen soft, non-tender, nondistended. MUSCULOSKELETAL: No obvious deformities. No clubbing. No cyanosis. No edema. NEUROLOGICAL: Awake and alert. No obvious cranial nerve deficits. Motor grossly within normal limits. Normal speech. PSYCHIATRIC: Appropriate mood and affect; insight and judgment normal. Data Data Last Documented VS Vital Signs Date Time Temp Pulse Resp B/P (MAP) Pulse Ox O2 Delivery O2 Flow Rate FiO2 03/01/17 03:45 73 18 102/64 (77) 96 Room Air 03/01/17 01:58 98.2 Orders Orders Iv Access Insert/Monitor (03/01/17 02:38) Complete Blood Count With Diff (03/01/17 02:38) Basic Metabolic Panel (Bmp) (03/01/17 02:38) Retic Count (03/01/17 02:38) Chest, Pa & Lat (03/01/17 ) Ed Urine Pregnancytest Poc (03/01/17 02:38) Sodium Chlor 0.9% 1000 Ml Inj (Ns 1000 M (03/01/17 02:45) Hydromorphone Pf Inj (Dilaudid Pf Inj) (03/01/17 02:45) Diphenhydramine (Benadryl) (03/01/17 03:15) Ondansetron Inj (Zofran Inj) (03/01/17 03:15) Labs Laboratory Tests Test 03/01/17 03:25 White Blood Count 10.4 TH/MM3 Red Blood Count 2.52 MIL/MM3 Hemoglobin 7.5 GM/DL Hematocrit 21.3 % Mean Corpuscular Volume 84.6 FL Mean Corpuscular Hemoglobin 29.8 PG Mean Corpuscular Hemoglobin Concent 35.2 % Red Cell Distribution Width 19.6 % Platelet Count 457 TH/MM3 Mean Platelet Volume 8.3 FL Neutrophils (%) (Auto) 55.6 % Lymphocytes (%) (Auto) 28.2 % Monocytes (%) (Auto) 12.9 % Eosinophils (%) (Auto) 2.2 % Basophils (%) (Auto) 1.1 % Neutrophils # (Auto) 5.8 TH/MM3 Lymphocytes # (Auto) 2.9 TH/MM3 Monocytes # (Auto) 1.3 TH/MM3 Eosinophils # (Auto) 0.2 TH/MM3 Basophils # (Auto) 0.1 TH/MM3 CBC Comment AUTO DIFF Differential Total Cells Counted 100 Neutrophils % (Manual) 53 % Band Neutrophils % 1 % Lymphocytes % 24 % Monocytes % 17 % Eosinophils % 4 % Basophils % 1 % Neutrophils # (Manual) 5.6 TH/MM3 Nucleated Red Blood Cells 1 /100 WBC Differential Comment FINAL DIFF MANUAL Platelet Estimate HIGH Platelet Morphology Comment ENLARGED Polychromasia 2.2 % Sickle Cells 2+ Fields-Hilger Bodies PRESENT Keratocytes 1+ Reticulocyte Count 8.1 % Absolute Reticulocyte Count 203.5 MIL/L Blood Urea Nitrogen 9 MG/DL Creatinine 0.40 MG/DL Random Glucose 89 MG/DL Calcium Level 8.7 MG/DL Sodium Level 139 MEQ/L Potassium Level 3.4 MEQ/L Chloride Level 105 MEQ/L Carbon Dioxide Level 27.8 MEQ/L Anion Gap 6 MEQ/L Estimat Glomerular Filtration Rate 222 ML/MIN MDM Medical Decision Making Medical Screen Exam Complete: Yes Emergency Medical Condition: Yes Medical Record Reviewed: Yes Differential Diagnosis Sickle cell crisis versus anemia versus URI Narrative Course Patient is a 31-year-old female comes in complaining of sickle cell crisis. Exam shows no acute abnormalities. Port accessed, labs sent. Labs show hemoglobin of 7.5 with an inappropriate or tick count. Her labs are similar to previous. She's given IV fluids, Dilaudid and oral Benadryl. She reports feeling better. 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 Chest x-ray performed shows no acute abnormalities. Advised to return to the ED as needed for any worsening symptoms. Diagnosis Primary Impression: Sickle cell crisis Patient Instructions: General Instructions, Sickle Cell Crisis (ED) Additional Instructions: Drink plenty of fluids. Follow-up with her doctor. Return to the ED as needed for any worsening symptoms. Disposition: 01 DISCHARGE HOME Condition: Stable Tresa Gu MD Mar 01, 2017 05:56
[2017-03-01 06:15] VITALS: BP 92/56
== END 2017-03-01 06:17 | disposition home or self-care (01) ==
LOC: NEPE 01:55
DX: D57.00 Hb-SS disease with crisis, unspecified (principal)
CPT/HCPCS: 71020; 80048; 84703; 85007; 85027; 85044; 96361; 96374; 96375; 99284; J1170; J2405; J7030

== ENCOUNTER 2017-03-03 02:08 | Emergency (ER) | payer OTHER ==
[~2017-03-03] VITALS: Ht 152.4 cm; Wt 57.2 kg
[2017-03-03 02:09] VITALS: BP 110/64; PULSE 96; RESP 16; TEMP 99.2; O2SAT 95
[2017-03-03] MEDS ORDERED: SODIUM CHLORIDE 0.9% FLUSH 10 ML FLUSH IVF PRN (03:15)
--- NOTE | 2017-03-03 03:19 | PD ---
HPI Chief Complaint: Sickle Cell Time Seen by Provider: 03:11 Travel History International Travel<30 days: No Contact w/Intl Traveler<30days: No Traveled to known affect area: No History of Present Illness HPI The patient is a 31 year old female who presents to the [facility] emergency department with a history of sickle cell pain that began on Friday. The pain is in her ankles, knees, elbows, back, and today it began in her chest. She reports that the symptoms are similar to her usual sickle cell pain crisis. She is unsure of the trigger. She has been taking Lortab 10mg without relief. She reports having generalized weakness. She has had a clear rhinorrhea with a mild cough that she attributes to a mild cold. She has had chills. No known fevers on review of systems otherwise, the patient denies having any recent neck pain, shortness of breath, abdominal pain, vomiting, diarrhea, urinary symptoms, or neurologic symptoms. Dr. Rivas- Loan Processing Supervisor on Friday. LMP: 01/28/17 [facility] Past Medical History Narrative Medical The patient's past medical history is significant for sickle cell anemia, asthma , dysmenorrhea Hx Anticoagulant Therapy: No Anemia: Yes Arthritis: No Asthma: No Autoimmune Disease: No Blood Disorders: Yes (sickle cell disease) Anxiety: No Depression: No Heart Rhythm Problems: No Cancer: No Cardiovascular Problems: Yes (sickle cell disease) High Cholesterol: No Chemotherapy: No Chest Pain: No Congestive Heart Failure: No COPD: No Cerebrovascular Accident: No Diabetes: No Diminished Hearing: No Endocrine: No GERD: No Genitourinary: No Headaches: Yes Hiatal Hernia: No Immune Disorder: No Implanted Vascular Access Dvce: Yes (RIGHT CHEST ) Insomnia: Yes Kidney Stones: Yes Musculoskeletal: No Neurologic: No Psychiatric: No Reproductive: No Respiratory: No Immunizations Current: Yes Migraines: No Pneumonia: Yes Radiation Therapy: No Renal Failure: No Seizures: No Sickle Cell Disease: Yes Sleep Apnea: No Thyroid Disease: No Ulcer: No PNEUMOCCOCAL Vaccine (Year): 2 ?: Not LMP: 02-01-17 : 2 Para: 1 Miscarriage: 1 : 0 Tubal Ligation: Yes Past Surgical History Abdominal Surgery: Yes (gallbladder removed) AICD: No Arteriovenous Shunt: No Body Medical Devices: right chest port Cardiac Surgery: No Section: Yes (X 1) Cholecystectomy: Yes Ear Surgery: No Endocrine Surgery: No Eye Surgery: No Genitourinary Surgery: No Gynecologic Surgery: Yes (tubal ligation) Insulin Pump: No Joint Replacement: No Oral Surgery: Yes Pacemaker: No Thoracic Surgery: Yes (CHEST PORT ) Tonsillectomy: Yes Other Surgery: Yes (right chest port) Social History Alcohol Use: No Tobacco Use: No Substance Use: No Allergies-Medications (Allergen,Severity, Reaction): Coded Allergies: morphine (Verified Allergy, Severe, RASH, 03/03/17) *MDRO Multi-Drug Resistant Organism (Verified Adverse Reaction, Unknown, MRSA, 03/03/17) MRSA (blood) - 12/18/2004 MRSA PCR screen NEGATIVE 08/27/16 & 09/21/16 Cleared per Infection Control Reported Meds & Prescriptions Reported Meds & Active Scripts Active Hydrocodone-Acetaminophen 10-325 mg Tab 1 Tab PO Q6H PRN Hydrea (Hydroxyurea) 500 Mg Cap 500 Mg PO DAILY 30 Days Reported Folic Acid 0.4 Mg Tab 400 Mcg PO DAILY Review of Systems Except as stated in HPI: all other systems reviewed are Neg General / Constitutional: No: Fever Eyes: No: Visual changes HENT: Positive: Rhinorrhea, No: Headaches, Congestion Cardiovascular: Positive: Chest Pain or Discomfort, No: Dyspnea on exertion Respiratory: Positive: Cough, No: Shortness of Breath Gastrointestinal: No: Abdominal Pain Genitourinary: No: Dysuria Musculoskeletal: Positive: Myalgias, Arthralgias, Pain, No: Edema Skin: No Rash Neurologic: No: Weakness, Change in Mentation, Slurred Speech, Sensory Disturbance Psychiatric: No: Depression Endocrine: No: Polydipsia Hematologic/Lymphatic: No: Easy Bruising Physical Exam Narrative General: The patient is well-developed well-nourished female in no acute distress. Head and Neck exam: Head is normocephalic atraumatic. Eyes: EOMI, pupils are equal round and reactive to light. Nose: Midline septum with pink mucous membranes Mouth: Dentition unremarkable. Moist mucus membranes. Posterior oropharynx is not erythematous. No tonsillar hypertrophy. Uvula midline. Airway patent. Neck: No palpable lymphadenopathy. No nuchal rigidity. No thyromegaly. Cardiovascular: Regular rate and rhythm without murmurs, gallops, or rubs. The patient has a port in place in the right upper anterior chest that appears to be in good repair without any overlying erythema, edema, or drainage noted. Lungs: Clear to auscultation bilaterally. No wheezes, rhonchi, or rales. Abdomen: Soft, without tenderness to palpation in all 4 quadrants of the abdomen. No guarding, rebound, or rigidity. Normal bowel sounds are audible. No tenderness on palpation of McBurney's point. Extremities: No clubbing, cyanosis, or edema. 2+ pulses in all 4 extremities. No joint swelling or erythema. No loss of range of motion. However, the patient does report having an aching sensation in bilateral elbows, bilateral ankles, bilateral knees. Back: No spinous process tenderness to palpation. No costovertebral angle tenderness to palpation. Neurologic Exam: Grossly nonfocal. Skin Exam: No rash noted. Intact skin that is warm and dry. Data Data Last Documented VS Vital Signs Date Time Temp Pulse Resp B/P (MAP) Pulse Ox O2 Delivery O2 Flow Rate FiO2 03/03/17 06:03 03/03/17 02:09 99.2 96 16 95 Room Air Orders Orders Complete Blood Count With Diff (03/03/17 03:11) Comprehensive Metabolic Panel (03/03/17 03:11) Retic Count (03/03/17 03:11) Ecg Monitoring (03/03/17 03:11) Iv Access Insert/Monitor (03/03/17 03:11) Oximetry (03/03/17 03:11) Sodium Chloride 0.9% Flush (Ns Flush) (03/03/17 03:15) Diphenhydramine Inj (Benadryl Inj) (03/03/17 03:30) Ketorolac Inj (Toradol Inj) (03/03/17 03:30) Ondansetron Inj (Zofran Inj) (03/03/17 03:30) Sodium Chlor 0.9% 1000 Ml Inj (Ns 1000 M (03/03/17 03:30) Hydromorphone Pf Inj (Dilaudid Pf Inj) (03/03/17 03:45) Potassium Chloride (Kcl) (03/03/17 05:00) Potassium Chloride Eff (K-Lyte Cl Eff) (03/03/17 05:15) Hydromorphone Pf Inj (Dilaudid Pf Inj) (03/03/17 05:15) Diphenhydramine Inj (Benadryl Inj) (03/03/17 05:15) Hydromorphone Pf Inj (Dilaudid Pf Inj) (03/03/17 05:15) Heparin Central Flush (Heparin Central F (03/03/17 05:15) Ed Discharge Order (03/03/17 05:11) Labs Laboratory Tests Test 03/03/17 03:17 White Blood Count 14.9 TH/MM3 Red Blood Count 2.83 MIL/MM3 Hemoglobin 8.1 GM/DL Hematocrit 24.1 % Mean Corpuscular Volume 85.3 FL Mean Corpuscular Hemoglobin 28.6 PG Mean Corpuscular Hemoglobin Concent 33.6 % Red Cell Distribution Width 18.6 % Platelet Count 470 TH/MM3 Mean Platelet Volume 9.0 FL Neutrophils (%) (Auto) 43.5 % Lymphocytes (%) (Auto) 44.1 % Monocytes (%) (Auto) 9.2 % Eosinophils (%) (Auto) 2.1 % Basophils (%) (Auto) 1.1 % Neutrophils # (Auto) 6.5 TH/MM3 Lymphocytes # (Auto) 6.5 TH/MM3 Monocytes # (Auto) 1.4 TH/MM3 Eosinophils # (Auto) 0.3 TH/MM3 Basophils # (Auto) 0.2 TH/MM3 CBC Comment AUTO DIFF Differential Total Cells Counted 100 Neutrophils % (Manual) 45 % Band Neutrophils % 1 % Lymphocytes % 42 % Monocytes % 7 % Eosinophils % 4 % Basophils % 1 % Neutrophils # (Manual) 6.9 TH/MM3 Nucleated Red Blood Cells 3 /100 WBC Differential Comment FINAL DIFF MANUAL Atypical Lymphocytes % Platelet Estimate HIGH Platelet Morphology Comment NORMAL Polychromasia 6.4 % Sickle Cells 1+ [place] Bodies PRESENT Acanthocytes OCC Reticulocyte Count 8.8 % Absolute Reticulocyte Count 247.3 MIL/L Blood Urea Nitrogen 5 MG/DL Creatinine 0.52 MG/DL Random Glucose 90 MG/DL Total Protein 8.0 GM/DL Albumin 3.6 GM/DL Calcium Level 8.4 MG/DL Alkaline Phosphatase 96 U/L Aspartate Amino Transf (AST/SGOT) 51 U/L Alanine Aminotransferase (ALT/SGPT) 15 U/L Total Bilirubin 2.5 MG/DL Sodium Level 139 MEQ/L Potassium Level 3.1 MEQ/L Chloride Level 105 MEQ/L Carbon Dioxide Level 26.5 MEQ/L Anion Gap 8 MEQ/L Estimat Glomerular Filtration Rate 164 ML/MIN MDM Medical Decision Making Medical Screen Exam Complete: Yes Emergency Medical Condition: Yes Medical Record Reviewed: Yes Differential Diagnosis Sickle cell pain crisis, versus chest syndrome, versus septic arthritis, versus arthritis Narrative Course During the course of the patients emergency department visit, the patients history, examination, and differential diagnosis were reviewed with the patient. The patient was placed on a electronic device monitor with oximetry and frequent blood pressure monitoring. The patient had IV access obtained and blood work sent for analysis. The patient was initially provided normal saline 1 L IV fluid bolus, hydromorphone 1 mg IV, Benadryl 25 mg IV for reported itching, Zofran 4 mg IV. The patient was additionally given Toradol 15 mg IV for pain. On reexamination , the patient reported that her pain level was improved, however still present. The patient was given a second dose of hydromorphone and another dose of Benadryl for itching. The patients laboratory studies were reviewed and remarkable for a white count of 14.9, hemoglobin 8.1, platelets 470 with 44.1 lymphocytes, monocytes 9.2, CMP is remarkable for a potassium of 3.1 which was supplemented orally with a potassium effervescence solution as well as Gatorade. BUN 5, calcium 8.4, total bilirubin 2.5, AST 51 The patient on reexamination at discharge reportedly was feeling improved. The patient is resting comfortably and feels better, is alert and in no distress. The patients results and examination findings were discussed with the patient. The repeat examination is unremarkable and benign. The history, exam, diagnostic testing, and current condition do not suggest any significant pathology to warrant further testing, continued ED treatment, admission, or surgical evaluation at this point. The vital signs have been stable. The patient does not have uncontrollable pain, intractable vomiting, or other significant symptoms. The patient's condition is stable and appropriate for discharge. The patient will pursue further outpatient evaluation with a primary care physician or other designated or consulting physician as indicated in the discharge instructions. The patient expressed understanding and was agreeable with this plan. Diagnosis Primary Impression: Sickle cell pain crisis Referrals: Zhao Louise MD 1 week Bow Maker Machine Tender 1 week Primary Care Physician 3 days Follow-up with her wind turbine technician, Dr. Rivas as previously scheduled this week Patient Instructions: General Instructions, Sickle Cell Crisis (ED) Med/Other Pt SpecificInfo: No Change to Meds Disposition: 01 DISCHARGE HOME Condition: Stable Mignon Lin MD Mar 03, 2017 03:19
[2017-03-03] MEDS ORDERED: ONDANSETRON HCL 4 MG/2 ML VIAL IV PUSH ONE (03:30)
[2017-03-03] MEDS ORDERED: diphenhydrAMINE HCL 50 MG/ML VIAL IV PUSH ONE ×2 (03:30→05:15)
[2017-03-03] MEDS ORDERED: HYDROmorphone HCL PF 1 MG/ML VIAL IV PUSH ONE (03:30)
[2017-03-03] MEDS ORDERED: SODIUM CHLOR 0.9% 1000 ML INJ 1,000 ML IV ONE (03:30)
[2017-03-03] MEDS ORDERED: KETOROLAC TROMETHAMINE 30 MG/ML (IVP) VIAL IV PUSH ONE (03:30)
[2017-03-03 03:33] LABS: AUTOMATED NEUTROPHIL # 6.5 TH/MM3 (1.8-7.7); BASOPHIL # 0.2 TH/MM3 (0-0.2); BASOPHIL % 1.1 % (0.0-2.0); EOSINOPHIL # 0.3 TH/MM3 (0-0.4); EOSINOPHIL % 2.1 % (0.0-4.0); HEMATOCRIT 24.1 % (35.0-46.0); HEMOGLOBIN 8.1 GM/DL (11.6-15.3); LYMPH % 44.1 % (9.0-44.0); LYMPHOCYTE # 6.5 TH/MM3 (1.0-4.8); MEAN CELL VOLUME 85.3 FL (80.0-100.0); MEAN CORPUSCULAR HEMOGLOBIN 28.6 PG (27.0-34.0); MEAN CORPUSCULAR HGB CONC 33.6 % (32.0-36.0); MONO % 9.2 % (0.0-8.0); MONOCYTE # 1.4 TH/MM3 (0-0.9); NEUT % 43.5 % (16.0-70.0); PLATELET COUNT 470 TH/MM3 (150-450); RED BLOOD COUNT 2.83 MIL/MM3 (4.00-5.30); RED CELL DISTRIBUTION WIDTH 18.6 % (11.6-17.2); RETIC # 247.3 MIL/L (20.0-150.0); RETIC % 8.8 % (0.4-3.0); WHITE BLOOD COUNT 14.9 TH/MM3 (4.0-11.0)
[2017-03-03] MEDS ORDERED: HYDROmorphone HCL PF 0.5 MG/0.5 ML SYRINGE IV PUSH ONE ×3 (03:45→05:15)
[2017-03-03 03:47] LABS: ALKALINE PHOSPHATASE 96 U/L (45-117); TOTAL BILIRUBIN ADULT 2.5 MG/DL (0.2-1.0)
[2017-03-03 03:51] LABS: ALBUMIN 3.6 GM/DL (3.4-5.0); ALT (GPT) 15 U/L (10-53); AST (GOT) 51 U/L (15-37); BICARBONATE 26.5 MEQ/L (21.0-32.0); BLOOD UREA NITROGEN 5 MG/DL (7-18); CALCIUM 8.4 MG/DL (8.5-10.1); CHLORIDE 105 MEQ/L (98-107); CREATININE 0.52 MG/DL (0.50-1.00); GLOMERULAR FILTRATION RATE 164 ML/MIN (>89); GLUCOSE,RANDOM 90 MG/DL (74-106); SODIUM (NA) 139 MEQ/L (136-145)
[2017-03-03 04:16] LABS: BANDS 1 % (0-6); BASOPHILS 1 % (0-2); CORRECTED NUCLEATED RBC 3 /100 WBC (0-0); LYMPHOCYTES 42 % (9-44); MONOCYTES 7 % (0-8); NEUTROPHIL # MANUAL DIFF 6.9 TH/MM3 (1.8-7.7); NUCLEATED RED BLOOD CELL 3 (0-0); POLYS (SEG NEUTROPHILS) 45 % (16-70)
[2017-03-03 04:17] LABS: SICKLE CELLS 1+ (NORMAL)
[2017-03-03 04:18] LABS: POLYCHROMASIA 6.4 % (0.0-1.9)
[2017-03-03 04:19] LABS: ACANTHOCYTES OCC (NORMAL); HOWELL-JOLLY BODIES PRESENT (NONE SEEN)
[2017-03-03] MEDS ORDERED: POTASSIUM CHLORIDE 20 MEQ CONTROLLED RELEASE TAB PO ONE (05:00)
[2017-03-03] MEDS ORDERED: POTASSIUM CHLORIDE 25 MEQ EFFERVESCENT TAB PO ONE (05:15)
== END 2017-03-03 06:05 | disposition home or self-care (01) ==
LOC: NEPC 02:08
DX: D57.00 Hb-SS disease with crisis, unspecified (principal)
CPT/HCPCS: 80053; 85007; 85027; 85044; 96374; 96375; 96376; 99284; J1170; J1200; J1642; J1885; J2405; J7030

== ENCOUNTER 2017-03-13 01:39 | Emergency (ER) | payer OTHER ==
[~2017-03-13] VITALS: Ht 152.4 cm; Wt 55.0 kg
[2017-03-13 01:41] VITALS: BP 108/56; PULSE 106; RESP 16; TEMP 99.4; O2SAT 96
[2017-03-13] MEDS ORDERED: SODIUM CHLOR 0.9% 1000 ML INJ 1,000 ML IV ONE (03:09)
[2017-03-13] MEDS ORDERED: SODIUM CHLORIDE 0.9% FLUSH 10 ML FLUSH IVF PRN (03:15)
--- NOTE | 2017-03-13 03:40 | PD ---
HPI . Sickle cell crisis Chief Complaint: Sickle Cell Time Seen by Provider: 03:35 Travel History International Travel<30 days: No Contact w/Intl Traveler<30days: No Traveled to known affect area: No History of Present Illness HPI This patient presents with chief complaint of sickle cell crisis. She is complaining of pain in her chest, legs and back. She states that it is her usual sickle cell pain. It started about 10:30 this morning. It has been unrelieved by Lortab. She believes that her symptoms may be exacerbated by working out in the cold. She rates her pain as 10/10. PFSH Past Medical History Hx Anticoagulant Therapy: No Anemia: Yes Arthritis: No Asthma: No Autoimmune Disease: No Blood Disorders: Yes (sickle cell disease) Anxiety: No Depression: No Heart Rhythm Problems: No Cancer: No Cardiovascular Problems: Yes (sickle cell disease) High Cholesterol: No Chemotherapy: No Chest Pain: No Congestive Heart Failure: No COPD: No Cerebrovascular Accident: No Diabetes: No Diminished Hearing: No Endocrine: No GERD: No Genitourinary: No Headaches: Yes Hiatal Hernia: No Immune Disorder: No Implanted Vascular Access Dvce: Yes (RIGHT CHEST ) Insomnia: Yes Kidney Stones: Yes Musculoskeletal: No Neurologic: No Psychiatric: No Reproductive: No Respiratory: No Immunizations Current: Yes Migraines: No Pneumonia: Yes Radiation Therapy: No Renal Failure: No Seizures: No Sickle Cell Disease: Yes Sleep Apnea: No Thyroid Disease: No Ulcer: No Influenza Vaccination: Yes PNEUMOCCOCAL Vaccine (Year): 2 ?: Not LMP: 03/13/2017 : 2 Para: 1 Miscarriage: 1 : 0 Tubal Ligation: Yes Past Surgical History Abdominal Surgery: Yes AICD: No Arteriovenous Shunt: No Body Medical Devices: right chest port Cardiac Surgery: No Section: Yes (X 1) Cholecystectomy: Yes Ear Surgery: No Endocrine Surgery: No Eye Surgery: No Genitourinary Surgery: No Gynecologic Surgery: Yes (tubal ligation) Insulin Pump: No Joint Replacement: No Oral Surgery: Yes Pacemaker: No Thoracic Surgery: Yes (CHEST PORT ) Tonsillectomy: Yes Other Surgery: Yes (right chest port) Social History Alcohol Use: No Tobacco Use: No Substance Use: No Allergies-Medications (Allergen,Severity, Reaction): Coded Allergies: morphine (Verified Allergy, Severe, RASH, 03/08/17) *MDRO Multi-Drug Resistant Organism (Verified Adverse Reaction, Unknown, MRSA, 03/08/17) MRSA (blood) - 12/18/2004 MRSA PCR screen NEGATIVE 08/27/16 & 09/21/16 Cleared per Infection Control Reported Meds & Prescriptions Reported Meds & Active Scripts Active Hydrocodone-Acetaminophen 10-325 mg Tab 1 Tab PO Q6H PRN Hydrea (Hydroxyurea) 500 Mg Cap 500 Mg PO DAILY 30 Days Reported Folic Acid 0.4 Mg Tab 400 Mcg PO DAILY Review of Systems Except as stated in HPI: all other systems reviewed are Neg General / Constitutional: No: Fever, Chills Respiratory: No: Shortness of Breath Gastrointestinal: No: Nausea, Vomiting Musculoskeletal: Positive: Pain Physical Exam Narrative GENERAL: She looks her usual self. SKIN: warm/dry. HEAD: Normocephalic. Atraumatic. EYES: Pupils equal and round. No scleral icterus. No injection or drainage. ENT: No nasal bleeding or discharge. Mucous membranes pink and moist. NECK: Trachea midline. Full range of motion without pain.. CARDIOVASCULAR: Tachycardic at about 110. RESPIRATORY: No accessory muscle use. Clear to auscultation. Breath sounds equal bilaterally. GASTROINTESTINAL: Abdomen soft. Nontender. Bowel sounds present. Nondistended. MUSCULOSKELETAL: No obvious deformities. NEUROLOGICAL: Awake and alert. No obvious cranial nerve deficits. Motor grossly within normal limits. Normal speech. PSYCHIATRIC: Appropriate mood and affect; insight and judgment normal. Data Data Last Documented VS Vital Signs Date Time Temp Pulse Resp B/P (MAP) Pulse Ox O2 Delivery O2 Flow Rate FiO2 03/13/17 02:31 96 Room Air 03/13/17 01:41 99.4 106 16 108/56 (73) Orders Orders Complete Blood Count With Diff (03/13/17 03:09) Comprehensive Metabolic Panel (03/13/17 03:09) Retic Count (03/13/17 03:09) Iv Access Insert/Monitor (03/13/17 03:09) Sodium Chlor 0.9% 1000 Ml Inj (Ns 1000 M (03/13/17 03:09) Heparin Central Flush (Heparin Central F (03/13/17 03:15) Sodium Chloride 0.9% Flush (Ns Flush) (03/13/17 03:15) Heparin Central Flush (Heparin Central F (03/13/17 03:15) Ketorolac Inj (Toradol Inj) (03/13/17 03:45) Labs Laboratory Tests Test 03/13/17 03:46 White Blood Count 13.2 TH/MM3 Red Blood Count 2.64 MIL/MM3 Hemoglobin 7.9 GM/DL Hematocrit 22.3 % Mean Corpuscular Volume 84.7 FL Mean Corpuscular Hemoglobin 30.0 PG Mean Corpuscular Hemoglobin Concent 35.4 % Red Cell Distribution Width 20.7 % Platelet Count 377 TH/MM3 Mean Platelet Volume 7.7 FL Neutrophils (%) (Auto) 62.6 % Lymphocytes (%) (Auto) 23.7 % Monocytes (%) (Auto) 11.8 % Eosinophils (%) (Auto) 1.3 % Basophils (%) (Auto) 0.6 % Neutrophils # (Auto) 8.3 TH/MM3 Lymphocytes # (Auto) 3.1 TH/MM3 Monocytes # (Auto) 1.6 TH/MM3 Eosinophils # (Auto) 0.2 TH/MM3 Basophils # (Auto) 0.1 TH/MM3 CBC Comment AUTO DIFF Reticulocyte Count 7.9 % Absolute Reticulocyte Count 208.9 MIL/L MDM Medical Decision Making Medical Screen Exam Complete: Yes Emergency Medical Condition: Yes Medical Record Reviewed: Yes (this patient presents here extremely frequently with sickle cell crisis. She was last seen on 03/08. Her hemoglobin was 8.0 which is about her baseline. Her reticulocyte count was 6.9 and her bilirubin was 2.3. She always rates her pain 10/10. She often states that her SCC is brought on by menstruation.) Differential Diagnosis My differential diagnosis of sickle cell disease includes but is not limited to vaso-occlusive crisis, acute chest syndrome, occult infection, electrolyte disturbance, drug-seeking behavior. Narrative Course This patient presents with chief complaint of sickle cell crisis. This patient is seen here extremely frequently for same. I have ordered IV fluids and labs. She was given Toradol for pain. The patient subsequently requested to see me again. She wants to go home as long as she is going to be here. I have told her that I can let her go right now if she would like. Diagnosis Primary Impression: Chronic pain Qualified Codes: G89.4 - Chronic pain syndrome Patient Instructions: Chronic Pain (DC), General Instructions Disposition: 01 DISCHARGE HOME Condition: Stable Inna Delacruz MD Mar 13, 2017 03:40
[2017-03-13] MEDS ORDERED: KETOROLAC TROMETHAMINE 30 MG/ML (IVP) VIAL IV PUSH ONE (03:45)
[2017-03-13 04:01] LABS: AUTOMATED NEUTROPHIL # 8.3 TH/MM3 (1.8-7.7); BASOPHIL # 0.1 TH/MM3 (0-0.2); BASOPHIL % 0.6 % (0.0-2.0); EOSINOPHIL # 0.2 TH/MM3 (0-0.4); EOSINOPHIL % 1.3 % (0.0-4.0); HEMATOCRIT 22.3 % (35.0-46.0); LYMPH % 23.7 % (9.0-44.0); LYMPHOCYTE # 3.1 TH/MM3 (1.0-4.8); MEAN CELL VOLUME 84.7 FL (80.0-100.0); MEAN CORPUSCULAR HGB CONC 35.4 % (32.0-36.0); MONO % 11.8 % (0.0-8.0); NEUT % 62.6 % (16.0-70.0); PLATELET COUNT 377 TH/MM3 (150-450); RED BLOOD COUNT 2.64 MIL/MM3 (4.00-5.30); RED CELL DISTRIBUTION WIDTH 20.7 % (11.6-17.2); RETIC % 7.9 % (0.4-3.0); WHITE BLOOD COUNT 13.2 TH/MM3 (4.0-11.0)
[2017-03-13 04:02] LABS: HEMO FLAGS AUTO DIFF; REVIEW FLAG AUTO DIFF
[2017-03-13 04:33] LABS: ALKALINE PHOSPHATASE 85 U/L (45-117); ALT (GPT) 20 U/L (10-53); TOTAL BILIRUBIN ADULT 2.1 MG/DL (0.2-1.0)
[2017-03-13 04:36] LABS: ANION GAP 10 MEQ/L (5-15); AST (GOT) 49 U/L (15-37); BICARBONATE 24.6 MEQ/L (21.0-32.0); BLOOD UREA NITROGEN 6 MG/DL (7-18); CHLORIDE 102 MEQ/L (98-107); GLOMERULAR FILTRATION RATE 216 ML/MIN (>89); POTASSIUM 3.7 MEQ/L (3.5-5.1); SODIUM (NA) 137 MEQ/L (136-145)
[2017-03-13 04:39] LABS: BANDS 1 % (0-6); CORRECTED NUCLEATED RBC 5 /100 WBC (0-0); EOSINOPHILS 1 % (0-4); NEUTROPHIL # MANUAL DIFF 8.6 TH/MM3 (1.8-7.7); POLYS (SEG NEUTROPHILS) 64 % (16-70); WBC DIFF SAMPLE 100
[2017-03-13 04:40] LABS: PLATELET ESTIMATE SMEAR NORMAL (NORMAL); PLATELET MORPHOLOGY NORMAL (NORMAL); SCAN/DIFF FINAL DIFF MANUAL; SICKLE CELLS 1+ (NORMAL)
[2017-03-13 04:42] LABS: POLYCHROMASIA 5.2 % (0.0-1.9)
[2017-03-13 04:43] LABS: HOWELL-JOLLY BODIES PRESENT (NONE SEEN)
== END 2017-03-13 04:57 | disposition home or self-care (01) ==
LOC: NEPE 01:39
DX: G89.4 Chronic pain syndrome (principal); D57.00 Hb-SS disease with crisis, unspecified
CPT/HCPCS: 80053; 85007; 85027; 85044; 96361; 96374; 99284; J1642; J1885; J7030

== ENCOUNTER 2017-03-22 02:44 | Emergency (ER) | payer OTHER ==
[~2017-03-22] VITALS: Ht 165.1 cm; Wt 57.0 kg
[2017-03-22 04:22] LABS: ALT (GPT) 22 U/L (10-53); ANION GAP 8 MEQ/L (5-15); AST (GOT) 50 U/L (15-37); BLOOD UREA NITROGEN 9 MG/DL (7-18); CHLORIDE 106 MEQ/L (98-107); GLOMERULAR FILTRATION RATE 185 ML/MIN (>89); POTASSIUM 3.4 MEQ/L (3.5-5.1); SODIUM (NA) 140 MEQ/L (136-145)
[2017-03-22 04:23] LABS: ALKALINE PHOSPHATASE 92 U/L (45-117); TOTAL BILIRUBIN ADULT 1.8 MG/DL (0.2-1.0)
[2017-03-22] MEDS ORDERED: SODIUM CHLOR 0.9% 1000 ML INJ 1,000 ML IV ONE (04:30)
--- NOTE | 2017-03-22 04:32 | PD ---
HPI Chief Complaint: Sickle Cell Time Seen by Provider: 03:21 Travel History International Travel<30 days: No Contact w/Intl Traveler<30days: No Traveled to known affect area: No History of Present Illness HPI Patient is a sickle cell disease patient who has had a cold recently and that her menstruation precipitates the crisis she says. She feels pain in her femur distally bilaterally above the knee she has lower back pain And some chest sternal pain where she usually gets her crisis pain . She says her doctor used to be able to let her come in for oxygen and IV fluid but there is no longer set of there so she is coming in for treatment in the ER she has a port which we have accessed and we have sent off CBC. I ordered chest x-ray and reticular count count. We'll give her a liter fluid put her on oxygen and give her IV dose of narcotics to start PFSH Past Medical History Hx Anticoagulant Therapy: No Anemia: Yes Arthritis: No Asthma: No Autoimmune Disease: No Blood Disorders: Yes (sickle cell disease) Anxiety: No Depression: No Heart Rhythm Problems: No Cancer: No Cardiovascular Problems: Yes (sickle cell disease) High Cholesterol: No Chemotherapy: No Chest Pain: No Congestive Heart Failure: No COPD: No Cerebrovascular Accident: No Diabetes: No Diminished Hearing: No Endocrine: No GERD: No Genitourinary: No Headaches: Yes Hiatal Hernia: No Immune Disorder: No Implanted Vascular Access Dvce: Yes (RIGHT CHEST ) Insomnia: Yes Kidney Stones: Yes Musculoskeletal: No Neurologic: No Psychiatric: No Reproductive: No Respiratory: No Immunizations Current: Yes Migraines: No Pneumonia: Yes Radiation Therapy: No Renal Failure: No Seizures: No Sickle Cell Disease: Yes Sleep Apnea: No Thyroid Disease: No Ulcer: No PNEUMOCCOCAL Vaccine (Year): 2 ?: Not LMP: CURRENT : 2 Para: 1 Miscarriage: 1 : 0 Tubal Ligation: Yes Past Surgical History Abdominal Surgery: Yes AICD: No Arteriovenous Shunt: No Body Medical Devices: right chest port Cardiac Surgery: No Section: Yes (X 1) Cholecystectomy: Yes Ear Surgery: No Endocrine Surgery: No Eye Surgery: No Genitourinary Surgery: No Gynecologic Surgery: Yes (tubal ligation) Insulin Pump: No Joint Replacement: No Oral Surgery: Yes Pacemaker: No Thoracic Surgery: Yes (CHEST PORT ) Tonsillectomy: Yes Other Surgery: Yes (right chest port) Social History Alcohol Use: No Tobacco Use: No Substance Use: No Allergies-Medications (Allergen,Severity, Reaction): Coded Allergies: morphine (Verified Allergy, Severe, RASH, 03/22/17) *MDRO Multi-Drug Resistant Organism (Verified Adverse Reaction, Unknown, MRSA, 03/22/17) MRSA (blood) - 12/18/2004 MRSA PCR screen NEGATIVE 08/27/16 & 09/21/16 Cleared per Infection Control Reported Meds & Prescriptions Reported Meds & Active Scripts Active Hydrocodone-Acetaminophen 10-325 mg Tab 1 Tab PO Q6H PRN Hydrea (Hydroxyurea) 500 Mg Cap 500 Mg PO DAILY 30 Days Reported Folic Acid 0.4 Mg Tab 400 Mcg PO DAILY Review of Systems Except as stated in HPI: all other systems reviewed are Neg Musculoskeletal: Positive: Myalgias, Arthralgias, Pain (low back pain and sternal pain) Physical Exam Narrative GENERAL: Patient appears comfortable not in any severe crisis pain mild jaundice of her sclera SKIN: Warm and dry. HEAD: Atraumatic. Normocephalic. EYES: Pupils equal and round. +positive scleral icterus. No injection or drainage. ENT: No nasal bleeding or discharge. Mucous membranes pink and moist. NECK: Trachea midline. No JVD. CARDIOVASCULAR: Regular rate and rhythm. RESPIRATORY: No accessory muscle use. Clear to auscultation. Breath sounds equal bilaterally. GASTROINTESTINAL: Abdomen soft, non-tender, nondistended. Hepatic and splenic margins not palpable. MUSCULOSKELETAL: Extremities without clubbing, cyanosis, or edema. No obvious deformities. NEUROLOGICAL: Awake and alert. No obvious cranial nerve deficits. Motor grossly within normal limits. Five out of 5 muscle strength in the arms and legs. Normal speech. PSYCHIATRIC: Appropriate mood and affect; insight and judgment normal. Data Data Orders Orders Retic Count (03/22/17 03:32) Complete Blood Count With Diff (03/22/17 03:32) Comprehensive Metabolic Panel (03/22/17 03:32) Sodium Chlor 0.9% 1000 Ml Inj (Ns 1000 M (03/22/17 04:30) Hydromorphone Pf Inj (Dilaudid Pf Inj) (03/22/17 05:30) Diphenhydramine Inj (Benadryl Inj) (03/22/17 05:30) Ed Discharge Order (03/22/17 06:04) Heparin Central Flush (Heparin Central F (03/22/17 06:15) Labs Laboratory Tests Test 03/22/17 03:47 White Blood Count 12.3 TH/MM3 Red Blood Count 2.48 MIL/MM3 Hemoglobin 7.4 GM/DL Hematocrit 21.1 % Mean Corpuscular Volume 84.8 FL Mean Corpuscular Hemoglobin 29.9 PG Mean Corpuscular Hemoglobin Concent 35.2 % Red Cell Distribution Width 19.6 % Platelet Count 358 TH/MM3 Mean Platelet Volume 8.4 FL Neutrophils (%) (Auto) 49.0 % Lymphocytes (%) (Auto) 38.2 % Monocytes (%) (Auto) 9.0 % Eosinophils (%) (Auto) 2.8 % Basophils (%) (Auto) 1.0 % Neutrophils # (Auto) 6.0 TH/MM3 Lymphocytes # (Auto) 4.7 TH/MM3 Monocytes # (Auto) 1.1 TH/MM3 Eosinophils # (Auto) 0.3 TH/MM3 Basophils # (Auto) 0.1 TH/MM3 CBC Comment AUTO DIFF Differential Total Cells Counted 100 Neutrophils % (Manual) 52 % Lymphocytes % 39 % Monocytes % 8 % Neutrophils # (Manual) 6.5 TH/MM3 Myelocytes 1 % Nucleated Red Blood Cells 3 /100 WBC Differential Comment FINAL DIFF MANUAL Atypical Lymphocytes % Platelet Estimate NORMAL Platelet Morphology Comment NORMAL Sickle Cells 1+ Target Cells 1+ Keratocytes OCC Reticulocyte Count 7.2 % Absolute Reticulocyte Count 173.6 MIL/L Blood Urea Nitrogen 9 MG/DL Creatinine 0.47 MG/DL Random Glucose 96 MG/DL Total Protein 7.3 GM/DL Albumin 3.1 GM/DL Calcium Level 8.2 MG/DL Alkaline Phosphatase 92 U/L Aspartate Amino Transf (AST/SGOT) 50 U/L Alanine Aminotransferase (ALT/SGPT) 22 U/L Total Bilirubin 1.8 MG/DL Sodium Level 140 MEQ/L Potassium Level 3.4 MEQ/L Chloride Level 106 MEQ/L Carbon Dioxide Level 26.0 MEQ/L Anion Gap 8 MEQ/L Estimat Glomerular Filtration Rate 185 ML/MIN [facility] Medical Decision Making Medical Screen Exam Complete: Yes Emergency Medical Condition: Yes Differential Diagnosis SCD vs acute pain crisis vs acute chest syndrome vs medication addiction Narrative Course pt is anemic to 21 HCT pt offered admission and transfusion but refuses to stay and says she wants to go to take care of her child and then return after I tell her that she would have to sign out against medical advice as she could exacerbate her SCD crisis and cuase infection that could lead to sepsis and eventually possible , she under sttod but still wanted to sign out against medical advise Diagnosis Primary Impression: Sickle cell crisis Kirk Angeles MD Mar 22, 2017 04:32
[2017-03-22 04:53] LABS: BASOPHIL # 0.1 TH/MM3 (0-0.2); EOSINOPHIL # 0.3 TH/MM3 (0-0.4); EOSINOPHIL % 2.8 % (0.0-4.0); HEMATOCRIT 21.1 % (35.0-46.0); LYMPH % 38.2 % (9.0-44.0); LYMPHOCYTE # 4.7 TH/MM3 (1.0-4.8); MEAN CELL VOLUME 84.8 FL (80.0-100.0); MEAN CORPUSCULAR HEMOGLOBIN 29.9 PG (27.0-34.0); MEAN CORPUSCULAR HGB CONC 35.2 % (32.0-36.0); PLATELET COUNT 358 TH/MM3 (150-450); RED BLOOD COUNT 2.48 MIL/MM3 (4.00-5.30); RED CELL DISTRIBUTION WIDTH 19.6 % (11.6-17.2); WHITE BLOOD COUNT 12.3 TH/MM3 (4.0-11.0)
[2017-03-22 04:55] LABS: HEMO FLAGS AUTO DIFF
[2017-03-22 05:14] LABS: RETIC % 7.2 % (0.4-3.0)
[2017-03-22] MEDS ORDERED: diphenhydrAMINE HCL 50 MG/ML VIAL IV PUSH ONE (05:30)
[2017-03-22] MEDS ORDERED: HYDROmorphone HCL PF 2 MG/ML VIAL IV PUSH ONE (05:30)
[2017-03-22 05:53] LABS: REVIEW FLAG FINAL
[2017-03-22 06:40] LABS: CORRECTED NUCLEATED RBC 3 /100 WBC (0-0); KERATOCYTES OCC (NORMAL); MYELOCYTES 1 % (0-0); NEUTROPHIL # MANUAL DIFF 6.5 TH/MM3 (1.8-7.7); POLYS (SEG NEUTROPHILS) 52 % (16-70); SICKLE CELLS 1+ (NORMAL); WBC DIFF SAMPLE 100
[2017-03-22 06:41] LABS: PLATELET ESTIMATE SMEAR NORMAL (NORMAL); PLATELET MORPHOLOGY NORMAL (NORMAL); TARGET CELLS 1+ (NORMAL)
[2017-03-22 06:42] LABS: SCAN/DIFF FINAL DIFF MANUAL
== END 2017-03-22 06:31 | disposition home or self-care (01) ==
LOC: NEPE 02:44
DX: D57.00 Hb-SS disease with crisis, unspecified (principal); D64.9 Anemia, unspecified; Z87.442 Personal history of urinary calculi; Z79.899 Other long term (current) drug therapy; Z88.5 Allergy status to narcotic agent
CPT/HCPCS: 80053; 85007; 85027; 85044; 96361; 96374; 96375; 99284; J1170; J1200; J1642; J7030

== ENCOUNTER 2017-03-22 13:30 | Emergency (ER) | payer OTHER ==
[2017-03-22 13:44] VITALS: BP 109/72; PULSE 80; RESP 18; TEMP 98.9; O2SAT 100
[2017-03-22 13:47] VITALS: BP 109/72; PULSE 76; RESP 18; TEMP 98.9; O2SAT 98
--- NOTE | 2017-03-22 13:54 | PD ---
HPI Chief Complaint: Sickle Cell Time Seen by Provider: 13:53 Travel History International Travel<30 days: No Contact w/Intl Traveler<30days: No Traveled to known affect area: No History of Present Illness HPI 31-year-old female , with history of sickle cell, arrives via EMS with complaint of continued generalized pain that started yesterday. Says she was seen here earlier this morning and the doctor told her that he wanted to admit her and she couldn't be admitted at that time and he told her to come back. She has continued pain in her legs, arms, elbows, back, chest. Rates pain as/ 10. Describes it as a throbbing sensation. Denies fever. Reports vomiting last 2 hours ago. Sickle cell crisis is aggravated with onset of menses. No known relieving factors. Allergies to morphine. Primary care providers at this to care. Denies other significant past medical history. He has no other medical complaints. No other modifying factors or associated signs and symptoms. PFSH Past Medical History Hx Anticoagulant Therapy: No Anemia: Yes Arthritis: No Asthma: No Autoimmune Disease: No Blood Disorders: Yes (sickle cell disease) Anxiety: No Depression: No Heart Rhythm Problems: No Cancer: No Cardiovascular Problems: Yes (sickle cell disease) High Cholesterol: No Chemotherapy: No Chest Pain: No Congestive Heart Failure: No COPD: No Cerebrovascular Accident: No Diabetes: No Diminished Hearing: No Endocrine: No GERD: No Genitourinary: No Headaches: Yes Hiatal Hernia: No Heparin Induced Thrombocytopen: No Immune Disorder: No Implanted Vascular Access Dvce: Yes (RIGHT CHEST ) Insomnia: Yes Kidney Stones: Yes Musculoskeletal: No Neurologic: No Psychiatric: No Reproductive: No Respiratory: No Immunizations Current: Yes Migraines: No Pneumonia: Yes Radiation Therapy: No Renal Failure: No Seizures: No Sickle Cell Disease: Yes Sleep Apnea: No Thyroid Disease: No Ulcer: No PNEUMOCCOCAL Vaccine (Year): 2 ?: Not LMP: 03/22/17 : 2 Para: 1 Miscarriage: 1 : 0 Tubal Ligation: Yes Past Surgical History Abdominal Surgery: Yes AICD: No Arteriovenous Shunt: No Body Medical Devices: right chest port Cardiac Surgery: No Section: Yes (X 1) Cholecystectomy: Yes Ear Surgery: No Endocrine Surgery: No Eye Surgery: No Genitourinary Surgery: No Gynecologic Surgery: Yes (tubal ligation) Insulin Pump: No Joint Replacement: No Oral Surgery: Yes Pacemaker: No Thoracic Surgery: Yes (CHEST PORT ) Tonsillectomy: Yes Other Surgery: Yes (right chest port) Social History Alcohol Use: No Tobacco Use: No Substance Use: No Allergies-Medications (Allergen,Severity, Reaction): Coded Allergies: morphine (Verified Allergy, Severe, RASH, 03/22/17) *MDRO Multi-Drug Resistant Organism (Verified Adverse Reaction, Unknown, MRSA, 03/22/17) MRSA (blood) - 12/18/2004 MRSA PCR screen NEGATIVE 08/27/16 & 09/21/16 Cleared per Infection Control Reported Meds & Prescriptions Reported Meds & Active Scripts Active Hydrocodone-Acetaminophen 10-325 mg Tab 1 Tab PO Q6H PRN Hydrea (Hydroxyurea) 500 Mg Cap 500 Mg PO DAILY 30 Days Reported Folic Acid 0.4 Mg Tab 400 Mcg PO DAILY Review of Systems Except as stated in HPI: all other systems reviewed are Neg Physical Exam Narrative GENERAL: Well-nourished, well-developed black female patient, in no acute distress; afebrile, nontoxic-appearing SKIN: Warm and dry. HEAD: Atraumatic. Normocephalic. EYES: Pupils equal and round. No scleral icterus. No injection or drainage. ENT: Mucosa pink and moist. Airway patent. NECK: Trachea midline. CARDIOVASCULAR: Regular rate and rhythm. No murmur appreciated. RESPIRATORY: No accessory muscle use. Breath sounds clear and equal bilaterally. GASTROINTESTINAL: Abdomen soft, non-tender, nondistended. MUSCULOSKELETAL: No obvious deformities. No clubbing. No cyanosis. No edema. NEUROLOGICAL: Awake and alert. Oriented 3. No obvious cranial nerve deficits. Motor grossly within normal limits. Normal speech. PSYCHIATRIC: Appropriate mood and affect; insight and judgment normal. Data Data Last Documented VS Vital Signs Date Time Temp Pulse Resp B/P (MAP) Pulse Ox O2 Delivery O2 Flow Rate FiO2 03/22/17 13:47 98.9 76 18 109/72 (84) 98 Room Air Orders Orders Hydromorphone Pf Inj (Dilaudid Pf Inj) (03/22/17 14:15) Ondansetron Inj (Zofran Inj) (03/22/17 14:15) Sodium Chlor 0.9% 1000 Ml Inj (Ns 1000 M (03/22/17 14:06) Electrocardiogram (03/22/17 14:06) [facility] Medical Decision Making Medical Screen Exam Complete: Yes Emergency Medical Condition: Yes Medical Record Reviewed: Yes Differential Diagnosis Sickle cell crisis, narcotic seeking, medical clearance, malingering Narrative Course This is a 31-year-old female with sickle cell crisis it was seen here earlier this morning for sickle cell crisis. The patient returned via [facility] with continued generalized pain. Labs were drawn earlier today show retic count 7.2 , absolute reticulocyte 173.6 and hemoglobin 7.4 which is consistent with her hemoglobin for the past month. This patient is well-known to the emergency department and seen multiple times for sickle cell crisis. Dr. Addison chirinoss Dilaudid, Zofran, 1 L normal saline, EKG and to discharge patient home. Orders entered. 1422: AMA: The risks of leaving against medical advice without further evaluation treatment were discussed with the patient. These risks include cardiac dysfunction, cardiac dysrhythmia, possible heart attack, possible stroke or . The patient indicated understanding of these risks and appeared to have the capacity to make this decision. Diagnosis Primary Impression: Left against medical advice Additional Impression: Malingering Disposition: 07 AGAINST MEDICAL ADVICE Nohemy Sandoval Mar 22, 2017 13:54
[2017-03-22] MEDS ORDERED: SODIUM CHLOR 0.9% 1000 ML INJ 1,000 ML IV SCH (14:06)
[2017-03-22] MEDS ORDERED: HYDROmorphone HCL PF 1 MG/ML VIAL IV PUSH ONE (14:15)
[2017-03-22] MEDS ORDERED: ONDANSETRON HCL 4 MG/2 ML VIAL IV PUSH ONE (14:15)
== END 2017-03-22 15:09 | disposition left against medical advice (07) ==
LOC: NEPD 13:30
DX: Z76.5 Malingerer [conscious simulation] (principal); D57.1 Sickle-cell disease without crisis; R52 Pain, unspecified; D64.9 Anemia, unspecified; Z87.442 Personal history of urinary calculi
CPT/HCPCS: 96374; 96375

== ENCOUNTER 2017-03-24 10:41 | Emergency (ER) | payer OTHER ==
[~2017-03-24] VITALS: Ht 152.4 cm; Wt 58.0 kg
[2017-03-24 10:52] VITALS: BP 110/71; PULSE 104; RESP 20; TEMP 98.7; O2SAT 96
[2017-03-24] MEDS ORDERED: SODIUM CHLOR 0.9% 1000 ML INJ 1,000 ML IV ONE (10:55)
[2017-03-24] MEDS ORDERED: HYDROmorphone HCL PF 2 MG/ML VIAL IVS ONE (11:00)
[2017-03-24] MEDS ORDERED: diphenhydrAMINE HCL 50 MG/ML VIAL IV PUSH ONE ×2 (11:00→12:45)
[2017-03-24] MEDS ORDERED: SODIUM CHLORIDE 0.9% FLUSH 10 ML FLUSH IVF PRN (11:00)
[2017-03-24 11:02] VITALS: RESP 19; O2SAT 94
--- NOTE | 2017-03-24 11:04 | PD ---
HPI Chief Complaint: Abnormal Results Time Seen by Provider: 10:46 Travel History International Travel<30 days: No Contact w/Intl Traveler<30days: No Traveled to known affect area: No History of Present Illness HPI The patient is a 31-year-old female who is well-known to the emergency department, who presents with a sickle cell crisis. The patient states over the last several days she's had URI type symptoms with cough and cold symptoms, now complains of chest pain and body aches. The patient was evaluated in the emergency department last week and was offered admission but her hemoglobin was noted to be in the sevens, however, had to leave AGAINST MEDICAL ADVICE to go home and take care of her child. She denies any fever. She does complain of body aches, try to follow-up with her frozen foods manager Dr. Rivas, however, her physician was not in the office today. The patient's symptoms are moderate, there are no current alleviating or exacerbating factors. She does have a history of sickle cell crisis in the past with similar symptoms. She denies any shortness of breath. PFSH Past Medical History Hx Anticoagulant Therapy: Yes Anemia: Yes Arthritis: No Asthma: No Autoimmune Disease: No Blood Disorders: Yes (sickle cell disease) Anxiety: No Depression: No Heart Rhythm Problems: No Cancer: No Cardiovascular Problems: Yes (sickle cell disease) High Cholesterol: No Chemotherapy: No Chest Pain: No Congestive Heart Failure: No COPD: No Cerebrovascular Accident: No Diabetes: No Diminished Hearing: No Endocrine: No GERD: No Genitourinary: No Headaches: Yes Hiatal Hernia: No Heparin Induced Thrombocytopen: No Immune Disorder: No Implanted Vascular Access Dvce: Yes (RIGHT CHEST ) Insomnia: Yes Kidney Stones: Yes Musculoskeletal: No Neurologic: No Psychiatric: No Reproductive: No Respiratory: No Immunizations Current: Yes Migraines: No Pneumonia: Yes Radiation Therapy: No Renal Failure: No Seizures: No Sickle Cell Disease: Yes Sleep Apnea: No Thyroid Disease: No Ulcer: No PNEUMOCCOCAL Vaccine (Year): 2 ?: Not : 2 Para: 1 Miscarriage: 1 : 0 Tubal Ligation: Yes Past Surgical History Abdominal Surgery: Yes AICD: No Arteriovenous Shunt: No Body Medical Devices: right chest port Cardiac Surgery: No Section: Yes (X 1) Cholecystectomy: Yes Ear Surgery: No Endocrine Surgery: No Eye Surgery: No Genitourinary Surgery: No Gynecologic Surgery: Yes (tubal ligation) Insulin Pump: No Joint Replacement: No Oral Surgery: Yes Pacemaker: No Thoracic Surgery: Yes (CHEST PORT ) Tonsillectomy: Yes Other Surgery: Yes (right chest port) Social History Alcohol Use: No Tobacco Use: No Substance Use: No Allergies-Medications (Allergen,Severity, Reaction): Coded Allergies: morphine (Verified Allergy, Severe, RASH, 03/24/17) *MDRO Multi-Drug Resistant Organism (Verified Adverse Reaction, Unknown, MRSA, 03/24/17) MRSA (blood) - 12/18/2004 MRSA PCR screen NEGATIVE 08/27/16 & 09/21/16 Cleared per Infection Control Reported Meds & Prescriptions Reported Meds & Active Scripts Active Hydrocodone-Acetaminophen 10-325 mg Tab 1 Tab PO Q6H PRN Hydrea (Hydroxyurea) 500 Mg Cap 500 Mg PO DAILY 30 Days Reported Folic Acid 0.4 Mg Tab 400 Mcg PO DAILY Review of Systems Except as stated in HPI: all other systems reviewed are Neg General / Constitutional: No: Fever HENT: Positive: Congestion Cardiovascular: Positive: Chest Pain or Discomfort Respiratory: Positive: Cough, No: Shortness of Breath Gastrointestinal: No: Nausea, Vomiting, Abdominal Pain Genitourinary: No: Dysuria Musculoskeletal: Positive: Myalgias, Arthralgias, Pain Physical Exam Narrative GENERAL: Awake, alert, pleasant 31 year-old female who appears her stated age and is in no acute respiratory distress. SKIN: Focused skin assessment warm/dry. HEAD: Atraumatic. Normocephalic. EYES: Pupils equal and round. Mild scleral icterus. ENT: No nasal bleeding or discharge. Mucous membranes pink and moist. NECK: Trachea midline. No JVD. CARDIOVASCULAR: Regular, tachycardic with a heart rate of 105. Port in place right chest wall. RESPIRATORY: No accessory muscle use. Clear to auscultation. Breath sounds equal bilaterally. GASTROINTESTINAL: Abdomen soft, non-tender, nondistended. No guarding or rigidity. MUSCULOSKELETAL: No obvious deformities. No clubbing. No cyanosis. No edema. NEUROLOGICAL: Awake and alert. No obvious cranial nerve deficits. Motor grossly within normal limits. Normal speech. PSYCHIATRIC: Appropriate mood and affect; insight and judgment normal. Data Data Last Documented VS Vital Signs Date Time Temp Pulse Resp B/P (MAP) Pulse Ox O2 Delivery O2 Flow Rate FiO2 03/24/17 11:02 19 94 Room Air 03/24/17 10:52 98.7 104 110/71 (84) Orders Orders Complete Blood Count With Diff (03/24/17 10:55) Retic Count (03/24/17 10:55) Chest, Single Ap (03/24/17 10:55) Ecg Monitoring (03/24/17 10:55) Iv Access Insert/Monitor (03/24/17 10:55) Oximetry (03/24/17 10:55) Hydromorphone Pf Inj (Dilaudid Pf Inj) (03/24/17 11:00) Sodium Chloride 0.9% Flush (Ns Flush) (03/24/17 11:00) Sodium Chlor 0.9% 1000 Ml Inj (Ns 1000 M (03/24/17 10:55) Diphenhydramine Inj (Benadryl Inj) (03/24/17 11:00) Heparin Central Flush (Heparin Central F (03/24/17 11:00) Hydromorphone Pf Inj (Dilaudid Pf Inj) (03/24/17 12:45) Diphenhydramine Inj (Benadryl Inj) (03/24/17 12:45) Labs Laboratory Tests Test 03/24/17 11:00 White Blood Count 10.3 TH/MM3 Red Blood Count 2.58 MIL/MM3 Hemoglobin 7.6 GM/DL Hematocrit 21.7 % Mean Corpuscular Volume 84.3 FL Mean Corpuscular Hemoglobin 29.6 PG Mean Corpuscular Hemoglobin Concent 35.1 % Red Cell Distribution Width 21.0 % Platelet Count 352 TH/MM3 Mean Platelet Volume 7.8 FL Neutrophils (%) (Auto) 38.9 % Lymphocytes (%) (Auto) 45.9 % Monocytes (%) (Auto) 10.3 % Eosinophils (%) (Auto) 4.2 % Basophils (%) (Auto) 0.7 % Neutrophils # (Auto) 4.0 TH/MM3 Lymphocytes # (Auto) 4.8 TH/MM3 Monocytes # (Auto) 1.1 TH/MM3 Eosinophils # (Auto) 0.4 TH/MM3 Basophils # (Auto) 0.1 TH/MM3 CBC Comment AUTO DIFF Differential Total Cells Counted 100 Neutrophils % (Manual) 43 % Band Neutrophils % 2 % Lymphocytes % 38 % Monocytes % 12 % Eosinophils % 3 % Basophils % 2 % Neutrophils # (Manual) 4.6 TH/MM3 Nucleated Red Blood Cells 8 /100 WBC Differential Comment FINAL DIFF MANUAL Platelet Estimate NORMAL Platelet Morphology Comment NORMAL Sickle Cells 2+ Target Cells 1+ Fields-Roderfield Bodies PRESENT Reticulocyte Count 10.1 % Absolute Reticulocyte Count 260.7 MIL/L MDM Medical Decision Making Medical Screen Exam Complete: Yes Emergency Medical Condition: Yes Medical Record Reviewed: Yes Interpretation(s) Last Impressions Chest X-Ray 03/24/17 1055 Signed Impressions: Service Date/Time: Friday, March 24, 2017 11:08 - CONCLUSION: Mild cardiomegaly. Clear lungs. Marquis Dukes Jr., MD Laboratory Tests Test 03/24/17 11:00 White Blood Count 10.3 TH/MM3 Red Blood Count 2.58 MIL/MM3 Hemoglobin 7.6 GM/DL Hematocrit 21.7 % Mean Corpuscular Volume 84.3 FL Mean Corpuscular Hemoglobin 29.6 PG Mean Corpuscular Hemoglobin Concent 35.1 % Red Cell Distribution Width 21.0 % Platelet Count 352 TH/MM3 Mean Platelet Volume 7.8 FL Neutrophils (%) (Auto) 38.9 % Lymphocytes (%) (Auto) 45.9 % Monocytes (%) (Auto) 10.3 % Eosinophils (%) (Auto) 4.2 % Basophils (%) (Auto) 0.7 % Neutrophils # (Auto) 4.0 TH/MM3 Lymphocytes # (Auto) 4.8 TH/MM3 Monocytes # (Auto) 1.1 TH/MM3 Eosinophils # (Auto) 0.4 TH/MM3 Basophils # (Auto) 0.1 TH/MM3 CBC Comment AUTO DIFF Differential Total Cells Counted 100 Neutrophils % (Manual) 43 % Band Neutrophils % 2 % Lymphocytes % 38 % Monocytes % 12 % Eosinophils % 3 % Basophils % 2 % Neutrophils # (Manual) 4.6 TH/MM3 Nucleated Red Blood Cells 8 /100 WBC Differential Comment FINAL DIFF MANUAL Platelet Estimate NORMAL Platelet Morphology Comment NORMAL Sickle Cells 2+ Target Cells 1+ Fields-Roderfield Bodies PRESENT Reticulocyte Count 10.1 % Absolute Reticulocyte Count 260.7 MIL/L Differential Diagnosis Differential diagnosis includes sickle cell crisis, malingering, drug-seeking behavior, acute chest syndrome, bronchitis, pneumonia. Narrative Course The patient's port was accessed, labs are drawn and sent, and the patient was placed on cardiac telemetry monitoring and continuous pulse oximetry monitoring. Chest x-ray was obtained. The patient was administered Dilaudid, Benadryl, Zofran, and IV fluids. Hemoglobin is 7.6, reticulin is elevated and appropriate. Chest x-ray reveals cardiomegaly but no acute findings. Patient is afebrile there is no hypoxia. The patient was administered a second dose of pain medications. She will be discharged home is advised to follow-up with her frozen foods manager. Return if symptoms worsen or progress. Diagnosis Primary Impression: Sickle cell pain crisis Patient Instructions: General Instructions Additional Instructions: Follow-up with her frozen foods manager. Return for fever or progressing symptoms. Plenty of fluids to stay hydrated. Med/Other Pt SpecificInfo: No Change to Meds Disposition: 01 DISCHARGE HOME Condition: Stable Markus Villarreal MD Mar 24, 2017 11:04
[2017-03-24 11:32] LABS: BASOPHIL # 0.1 TH/MM3 (0-0.2); BASOPHIL % 0.7 % (0.0-2.0); EOSINOPHIL # 0.4 TH/MM3 (0-0.4); EOSINOPHIL % 4.2 % (0.0-4.0); HEMATOCRIT 21.7 % (35.0-46.0); LYMPH % 45.9 % (9.0-44.0); LYMPHOCYTE # 4.8 TH/MM3 (1.0-4.8); MEAN CELL VOLUME 84.3 FL (80.0-100.0); MEAN CORPUSCULAR HEMOGLOBIN 29.6 PG (27.0-34.0); MEAN CORPUSCULAR HGB CONC 35.1 % (32.0-36.0); MONO % 10.3 % (0.0-8.0); NEUT % 38.9 % (16.0-70.0); PLATELET COUNT 352 TH/MM3 (150-450); RED BLOOD COUNT 2.58 MIL/MM3 (4.00-5.30); RETIC % 10.1 % (0.4-3.0); WHITE BLOOD COUNT 10.3 TH/MM3 (4.0-11.0)
[2017-03-24 11:33] LABS: HEMO FLAGS AUTO DIFF; REVIEW FLAG FINAL
--- NOTE | 2017-03-24 11:34 | RADRPT ---
EXAM DATE/TIME: 03/24/2017 11:08 [facility] COMPARISON: CHEST PA & LAT, March 01, 2017, 2:54. CHEST SINGLE AP, February 15, 2017, 4:04. INDICATIONS : Patient states shortness of breath. MEDICAL HISTORY : Sickle Cell disease. SURGICAL HISTORY : Port ENCOUNTER: Initial ACUITY: 1 day PAIN SCORE: 0/10 LOCATION: Bilateral chest FINDINGS: A single view of the chest demonstrates the lungs to be symmetrically aerated without evidence of mas s, infiltrate or effusion. Mild cardiomegaly. No pulmonary vascular engorgement. Endplate changes see n involving the thoracic spine consistent with the underlying history of sickle cell disease. A Port- A-Cath overlies the right chest. CONCLUSION: Mild cardiomegaly. Clear lungs. Marquis Dukes Jr., MD on March 24, 2017 at 11:31 Board Certified Radiologist. This report was verified electronically.
[2017-03-24 12:42] LABS: BANDS 2 % (0-6); BASOPHILS 2 % (0-2); CORRECTED NUCLEATED RBC 8 /100 WBC (0-0); EOSINOPHILS 3 % (0-4); HOWELL-JOLLY BODIES PRESENT (NONE SEEN); NEUTROPHIL # MANUAL DIFF 4.6 TH/MM3 (1.8-7.7); POLYS (SEG NEUTROPHILS) 43 % (16-70); SICKLE CELLS 2+ (NORMAL); TARGET CELLS 1+ (NORMAL); WBC DIFF SAMPLE 100
[2017-03-24 12:43] LABS: PLATELET ESTIMATE SMEAR NORMAL (NORMAL); PLATELET MORPHOLOGY NORMAL (NORMAL); SCAN/DIFF FINAL DIFF MANUAL
[2017-03-24] MEDS ORDERED: HYDROmorphone HCL PF 2 MG/ML VIAL IV PUSH ONE (12:45)
== END 2017-03-24 14:03 | disposition home or self-care (01) ==
LOC: NEPE 10:41
DX: D57.00 Hb-SS disease with crisis, unspecified (principal); R07.9 Chest pain, unspecified; R05 Cough; Z79.01 Long term (current) use of anticoagulants
CPT/HCPCS: 71010; 85007; 85027; 85044; 96361; 96374; 96375; 96376; 99284; J1170; J1200; J1642; J7030

== ENCOUNTER 2017-03-29 01:54 | Emergency (ER) | payer OTHER ==
[~2017-03-29] VITALS: Ht 152.4 cm; Wt 57.0 kg
[2017-03-29 01:55] VITALS: BP 115/66; PULSE 77; RESP 16; TEMP 99.1; O2SAT 95
[2017-03-29] MEDS ORDERED: SODIUM CHLOR 0.9% 1000 ML INJ 1,000 ML IV ONE (02:37)
[2017-03-29] MEDS ORDERED: SODIUM CHLORIDE 0.9% FLUSH 10 ML FLUSH IVF PRN (02:45)
[2017-03-29] MEDS ORDERED: diphenhydrAMINE HCL 50 MG/ML VIAL IV PUSH ONE (02:45)
[2017-03-29] MEDS ORDERED: ONDANSETRON HCL 4 MG/2 ML VIAL IVP ONE (02:45)
[2017-03-29] MEDS ORDERED: HYDROmorphone HCL PF 1 MG/ML VIAL IVS ONE (02:45)
--- NOTE | 2017-03-29 02:46 | PD ---
HPI Chief Complaint: Sickle Cell Time Seen by Provider: 02:42 Travel History International Travel<30 days: No Contact w/Intl Traveler<30days: No Traveled to known affect area: No History of Present Illness HPI 31-year-old female patient with history of sickle cell disease, presents to the ER today for 1 day history of sickle cell crisis, lower back pains, knee pains, chest pains. She states that she had tried to take control medications at home but is not getting better. She denies any fevers, vomiting, shortness of breath , or any other symptoms. She states that she thinks it was triggered by being out in the cold. Modifying Factors: None Associated Signs & Symptoms: Chest discomfort, back pains, knee pains, sickle cell crisis Risk Factors: History of sickle cell disease PFSH Past Medical History Hx Anticoagulant Therapy: Yes Anemia: Yes Arthritis: No Asthma: No Autoimmune Disease: No Blood Disorders: Yes (sickle cell disease) Anxiety: No Depression: No Heart Rhythm Problems: No Cancer: No Cardiovascular Problems: Yes (sickle cell disease) High Cholesterol: No Chemotherapy: No Chest Pain: No Congestive Heart Failure: No COPD: No Cerebrovascular Accident: No Diabetes: No Diminished Hearing: No Endocrine: No GERD: No Genitourinary: No Headaches: Yes Hiatal Hernia: No Heparin Induced Thrombocytopen: No Immune Disorder: No Implanted Vascular Access Dvce: Yes (RIGHT CHEST ) Insomnia: Yes Kidney Stones: Yes Musculoskeletal: No Neurologic: No Psychiatric: No Reproductive: No Respiratory: No Immunizations Current: Yes Migraines: No Pneumonia: Yes Radiation Therapy: No Renal Failure: No Seizures: No Sickle Cell Disease: Yes Sleep Apnea: No Thyroid Disease: No Ulcer: No PNEUMOCCOCAL Vaccine (Year): 2 ?: Not LMP: CURRENT : 2 Para: 1 Miscarriage: 1 : 0 Tubal Ligation: Yes Past Surgical History Abdominal Surgery: Yes AICD: No Arteriovenous Shunt: No Body Medical Devices: right chest port Cardiac Surgery: No Section: Yes (X 1) Cholecystectomy: Yes Ear Surgery: No Endocrine Surgery: No Eye Surgery: No Genitourinary Surgery: No Gynecologic Surgery: Yes (tubal ligation) Insulin Pump: No Joint Replacement: No Oral Surgery: Yes Pacemaker: No Thoracic Surgery: Yes (CHEST PORT ) Tonsillectomy: Yes Other Surgery: Yes (right chest port) Social History Alcohol Use: No Tobacco Use: No Substance Use: No Allergies-Medications (Allergen,Severity, Reaction): Coded Allergies: morphine (Verified Allergy, Severe, RASH, 03/29/17) *MDRO Multi-Drug Resistant Organism (Verified Adverse Reaction, Unknown, MRSA, 03/29/17) MRSA (blood) - 12/18/2004 MRSA PCR screen NEGATIVE 08/27/16 & 09/21/16 Cleared per Infection Control Reported Meds & Prescriptions Reported Meds & Active Scripts Active Hydrocodone-Acetaminophen 10-325 mg Tab 1 Tab PO Q6H PRN Hydrea (Hydroxyurea) 500 Mg Cap 500 Mg PO DAILY 30 Days Reported Folic Acid 0.4 Mg Tab 400 Mcg PO DAILY Review of Systems Except as stated in HPI: all other systems reviewed are Neg Physical Exam Narrative GENERAL: Well-developed young -[place] female patient currently in mild distress. Awake and oriented 3. SKIN: Focused skin assessment warm/dry. HEAD: Atraumatic. Normocephalic. EYES: Pupils equal and round. No scleral icterus. No injection or drainage. ENT: No nasal bleeding or discharge. Mucous membranes pink and moist. NECK: Trachea midline. No JVD. CARDIOVASCULAR: Regular rate and rhythm. No murmur appreciated. RESPIRATORY: No accessory muscle use. Clear to auscultation. Breath sounds equal bilaterally. GASTROINTESTINAL: Abdomen soft, non-tender, nondistended. Hepatic and splenic margins not palpable. MUSCULOSKELETAL: No obvious deformities. No clubbing. No cyanosis. No edema. NEUROLOGICAL: Awake and alert. No obvious cranial nerve deficits. Motor grossly within normal limits. Normal speech. PSYCHIATRIC: Appropriate mood and affect; insight and judgment normal. Data Data Last Documented VS Vital Signs Date Time Temp Pulse Resp B/P (MAP) Pulse Ox O2 Delivery O2 Flow Rate FiO2 03/29/17 02:24 96 Room Air 03/29/17 01:55 99.1 77 16 115/66 (82) Orders Orders C-Reactive Protein (Crp) (03/29/17 02:37) Complete Blood Count With Diff (03/29/17 02:37) Comprehensive Metabolic Panel (03/29/17 02:37) Retic Count (03/29/17 02:37) Urinalysis - C+S If Indicated (03/29/17 02:37) Ecg Monitoring (03/29/17 02:37) Iv Access Insert/Monitor (03/29/17 02:37) Oximetry (03/29/17 02:37) Ondansetron Inj (Zofran Inj) (03/29/17 02:45) Sodium Chloride 0.9% Flush (Ns Flush) (03/29/17 02:45) Sodium Chlor 0.9% 1000 Ml Inj (Ns 1000 M (03/29/17 02:37) Hydromorphone Pf Inj (Dilaudid Pf Inj) (03/29/17 02:45) Diphenhydramine Inj (Benadryl Inj) (03/29/17 02:45) Chest, Single Ap (03/29/17 02:42) Electrocardiogram (03/29/17 02:42) Type And Screen (03/29/17 03:55) Red Blood Cells (Rbc) (03/29/17 03:55) Blood Product Administration (03/29/17 03:55) Sodium Chlor 0.9% 250 Ml Inj (Ns 250 Ml (03/29/17 04:00) Hydromorphone Pf Inj (Dilaudid Pf Inj) (03/29/17 04:15) Ed Discharge Order (03/29/17 04:16) Labs Laboratory Tests Test 03/29/17 03:00 White Blood Count 9.2 TH/MM3 Red Blood Count 2.33 MIL/MM3 Hemoglobin 6.9 GM/DL Hematocrit 19.6 % Mean Corpuscular Volume 84.3 FL Mean Corpuscular Hemoglobin 29.7 PG Mean Corpuscular Hemoglobin Concent 35.2 % Red Cell Distribution Width 21.1 % Platelet Count 322 TH/MM3 Mean Platelet Volume 8.3 FL Neutrophils (%) (Auto) 47.3 % Lymphocytes (%) (Auto) 38.5 % Monocytes (%) (Auto) 10.0 % Eosinophils (%) (Auto) 3.0 % Basophils (%) (Auto) 1.2 % Neutrophils # (Auto) 4.3 TH/MM3 Lymphocytes # (Auto) 3.5 TH/MM3 Monocytes # (Auto) 0.9 TH/MM3 Eosinophils # (Auto) 0.3 TH/MM3 Basophils # (Auto) 0.1 TH/MM3 CBC Comment AUTO DIFF Reticulocyte Count 11.2 % Absolute Reticulocyte Count 260.6 MIL/L Blood Urea Nitrogen 7 MG/DL Creatinine 0.43 MG/DL Random Glucose 86 MG/DL Total Protein 7.1 GM/DL Albumin 3.1 GM/DL Calcium Level 7.5 MG/DL Alkaline Phosphatase 89 U/L Aspartate Amino Transf (AST/SGOT) 57 U/L Alanine Aminotransferase (ALT/SGPT) 19 U/L Total Bilirubin 1.9 MG/DL Sodium Level 142 MEQ/L Potassium Level 3.2 MEQ/L Chloride Level 110 MEQ/L Carbon Dioxide Level 25.1 MEQ/L Anion Gap 7 MEQ/L Estimat Glomerular Filtration Rate 205 ML/MIN C-Reactive Protein 0.65 MG/DL [facility] Medical Decision Making Medical Screen Exam Complete: Yes Emergency Medical Condition: Yes Medical Record Reviewed: Yes Interpretation(s) EKG shows NSR, no ST elevation or depression, and no arrhythmias. No significant T-wave inversions. Laboratory Tests Test 03/29/17 03:00 Red Blood Count 2.33 MIL/MM3 (4.00-5.30) Hemoglobin 6.9 GM/DL (11.6-15.3) Hematocrit 19.6 % (35.0-46.0) Red Cell Distribution Width 21.1 % (11.6-17.2) Monocytes (%) (Auto) 10.0 % (0.0-8.0) Reticulocyte Count 11.2 % (0.4-3.0) Absolute Reticulocyte Count 260.6 MIL/L (20.0-150.0) Creatinine 0.43 MG/DL (0.50-1.00) Albumin 3.1 GM/DL (3.4-5.0) Calcium Level 7.5 MG/DL (8.5-10.1) Aspartate Amino Transf (AST/SGOT) 57 U/L (15-37) Total Bilirubin 1.9 MG/DL (0.2-1.0) Potassium Level 3.2 MEQ/L (3.5-5.1) Chloride Level 110 MEQ/L (98-107) C-Reactive Protein 0.65 MG/DL (0.00-0.30) Differential Diagnosis Chest pains, back pains, knee pains: Sickle cell crisis versus acute chest syndrome versus pneumonia versus symptomatic anemia versus malingering Narrative Course Blood work shows significant anemia even compared to her previous studies. At this point, I think that she may be having some underlying symptomatic anemia as well. I have recommended that she be admitted for blood transfusion. However, the patient states that she cannot stay at this time, has other obligations, and does not want to get transfused right now. She states that she will be back today for transfusion and admission. At this point, patient was made aware that her symptoms could be affected by the anemia, that she could have worsening and have outcome secondary to this issue. Patient states understanding and will be leaving AGAINST MEDICAL ADVICE. AMA: The risks of leaving against medical advice without further evaluation treatment were discussed with the patient. These risks include cardiac dysfunction, cardiac dysrhythmia, possible heart attack, possible stroke or . The patient indicated understanding of these risks and appeared to have the capacity to make this decision. Diagnosis Primary Impression: Anemia, sickle cell with crisis Additional Impression: Severe anemia Disposition: 07 AGAINST MEDICAL ADVICE Condition: Stable Diallo Kiran MD Mar 29, 2017 02:46
--- NOTE | 2017-03-29 03:02 | RADRPT ---
EXAM DATE/TIME: 03/29/2017 02:48 [place] COMPARISON: CHEST SINGLE AP, March 24, 2017, 11:08. INDICATIONS : Chest pain started this morning. MEDICAL HISTORY : Sickle Cell disease. SURGICAL HISTORY : Port ENCOUNTER: Initial ACUITY: 1 day PAIN SCORE: 5/10 LOCATION: Bilateral chest FINDINGS: A single view of the chest demonstrates the lungs to be symmetrically aerated without evidence of mas s, infiltrate or effusion. The cardiomediastinal contours are unremarkable. Osseous structures are intact. [id number] catheter tip projects at the cavoatrial junction. CONCLUSION: The lungs are clear. Marquis Redding MD on March 29, 2017 at 3:01 Board Certified Radiologist. This report was verified electronically.
[2017-03-29 03:33] LABS: AUTOMATED NEUTROPHIL # 4.3 TH/MM3 (1.8-7.7); BASOPHIL # 0.1 TH/MM3 (0-0.2); BASOPHIL % 1.2 % (0.0-2.0); EOSINOPHIL # 0.3 TH/MM3 (0-0.4); LYMPH % 38.5 % (9.0-44.0); LYMPHOCYTE # 3.5 TH/MM3 (1.0-4.8); MEAN CELL VOLUME 84.3 FL (80.0-100.0); MEAN CORPUSCULAR HEMOGLOBIN 29.7 PG (27.0-34.0); MEAN CORPUSCULAR HGB CONC 35.2 % (32.0-36.0); NEUT % 47.3 % (16.0-70.0); PLATELET COUNT 322 TH/MM3 (150-450); RED BLOOD COUNT 2.33 MIL/MM3 (4.00-5.30); RED CELL DISTRIBUTION WIDTH 21.1 % (11.6-17.2); RETIC % 11.2 % (0.4-3.0); WHITE BLOOD COUNT 9.2 TH/MM3 (4.0-11.0)
[2017-03-29 03:38] LABS: HEMO FLAGS AUTO DIFF; REVIEW FLAG AUTO DIFF
[2017-03-29 03:41] LABS: HEMATOCRIT 19.6 % (35.0-46.0)
[2017-03-29 03:52] LABS: ALKALINE PHOSPHATASE 89 U/L (45-117); ALT (GPT) 19 U/L (10-53); TOTAL BILIRUBIN ADULT 1.9 MG/DL (0.2-1.0)
[2017-03-29] MEDS ORDERED: SODIUM CHLOR 0.9% 250 ML INJ 250 ML IV ONE (04:00)
[2017-03-29 04:06] LABS: ANION GAP 7 MEQ/L (5-15); AST (GOT) 57 U/L (15-37); BICARBONATE 25.1 MEQ/L (21.0-32.0); BLOOD UREA NITROGEN 7 MG/DL (7-18); CHLORIDE 110 MEQ/L (98-107); GLOMERULAR FILTRATION RATE 205 ML/MIN (>89); POTASSIUM 3.2 MEQ/L (3.5-5.1); SODIUM (NA) 142 MEQ/L (136-145)
[2017-03-29] MEDS ORDERED: HYDROmorphone HCL PF 1 MG/ML VIAL IV PUSH ONE (04:15)
[2017-03-29 04:34] LABS: CORRECTED NUCLEATED RBC 3 /100 WBC (0-0); EOSINOPHILS 4 % (0-4); NEUTROPHIL # MANUAL DIFF 4.1 TH/MM3 (1.8-7.7); POLYS (SEG NEUTROPHILS) 45 % (16-70); WBC DIFF SAMPLE 100
[2017-03-29 04:36] LABS: POLYCHROMASIA 2.7 % (0.0-1.9); SICKLE CELLS 2+ (NORMAL); TARGET CELLS 1+ (NORMAL)
[2017-03-29 04:38] LABS: PLATELET ESTIMATE SMEAR NORMAL (NORMAL); PLATELET MORPHOLOGY NORMAL (NORMAL); SCAN/DIFF FINAL DIFF MANUAL
--- NOTE | 2017-03-29 16:00 | EKG ---
Date Performed: 03/29/2017 Time Performed: 02:49:39 PTAGE: 31 years EKG: Sinus rhythm NONSPECIFIC T-WAVE ABNORMALITY Compared to prior tracing no significant change BORDERLINE ECG PREVIOUS TRACING : 02/15/2017 05.07 DOCTOR: Rubén Henry Interpretating Date/Time 03/29/2017 15:59:37
[2017-03-30] MEDS ORDERED: HYDR-3583 PO (12:36)
== END 2017-03-29 04:46 | disposition left against medical advice (07) ==
LOC: NEPE 01:54
DX: D57.00 Hb-SS disease with crisis, unspecified (principal); D64.9 Anemia, unspecified; M54.5 Low back pain; M25.562 Pain in left knee; M25.561 Pain in right knee; R07.9 Chest pain, unspecified; R94.31 Abnormal electrocardiogram [ECG] [EKG]; Z53.29 Procedure and treatment not carried out because of patient's decision for other reasons; Z86.2 Personal history of diseases of the blood and blood-forming organs and certain disorders involving the immune mechanism; Z86.79 Personal history of other diseases of the circulatory system; Z87.442 Personal history of urinary calculi
CPT/HCPCS: 71010; 80053; 85007; 85027; 85044; 86140; 86920; 93005; 96361; 96374; 96375; J1170; J1200; J2405; J7030

== ENCOUNTER 2017-03-29 08:27 | Inpatient (IN) | payer OTHER ==
[~2017-03-29] VITALS: Ht 152.4 cm; Wt 57.0 kg
[2017-03-29 08:30] VITALS: BP 120/72; PULSE 84; RESP 17; TEMP 98.2; O2SAT 95
[2017-03-29] MEDS ORDERED: diphenhydrAMINE HCL 25 MG CAP PO ONE (09:00)
[2017-03-29] MEDS ORDERED: ACETAMINOPHEN 325 MG TAB PO ONE (09:00)
[2017-03-29] MEDS ORDERED: SODIUM CHLOR 0.9% 250 ML INJ 250 ML IV ONE (09:00)
--- NOTE | 2017-03-29 09:08 | PD ---
HPI . Anemia Chief Complaint: Sickle Cell Time Seen by Provider: 08:40 Travel History International Travel<30 days: No Contact w/Intl Traveler<30days: No History of Present Illness HPI This patient presents for a blood transfusion. She was seen here around 3 in the morning for her usual sickle cell crisis. Her hemoglobin was found to be 6.9. Blood was ordered for her but she signed out AMA stating that she would be back this morning for her transfusion. She states that she is transfused infrequently, probably about every 3-4 months. She states that her dial buffer tries to keep her hemoglobin above 7. She states that she has been feeling unusually tired and weak. She is also complaining with her usual sickle cell pain. At triage, she rates her pain 8/10. However, her pain was 5/ 10 by the time she got to her room. PFSH Past Medical History Hx Anticoagulant Therapy: No Anemia: Yes Arthritis: No Asthma: No Autoimmune Disease: No Blood Disorders: Yes (sickle cell disease) Anxiety: No Depression: No Heart Rhythm Problems: No Cancer: No Cardiovascular Problems: No High Cholesterol: No Chemotherapy: No Chest Pain: No Congestive Heart Failure: No COPD: No Cerebrovascular Accident: No Diabetes: No Diminished Hearing: No Endocrine: No Gastrointestinal Disorders: Yes (GALLSTONES) GERD: No Genitourinary: No Headaches: Yes Hiatal Hernia: No Heparin Induced Thrombocytopen: No Immune Disorder: No Implanted Vascular Access Dvce: Yes (RIGHT CHEST ) Insomnia: Yes Kidney Stones: Yes Medical other: Yes Musculoskeletal: No Neurologic: No Psychiatric: No Reproductive: No Respiratory: No Immunizations Current: Yes Migraines: No Pneumonia: Yes Radiation Therapy: No Renal Failure: No Seizures: No Sickle Cell Disease: Yes Sleep Apnea: No Thyroid Disease: No Ulcer: No Tetanus Vaccination: < 5 Years Influenza Vaccination: Yes PNEUMOCCOCAL Vaccine (Year): 2 ?: Not LMP: 03/29/17 : 2 Para: 1 Miscarriage: 1 : 0 Tubal Ligation: Yes Past Surgical History Abdominal Surgery: Yes AICD: No Arteriovenous Shunt: No Body Medical Devices: right chest port Cardiac Surgery: No Section: Yes (X 1) Cholecystectomy: Yes Ear Surgery: No Endocrine Surgery: No Eye Surgery: No Genitourinary Surgery: No Gynecologic Surgery: Yes (tubal ligation) Hysterectomy: No Insulin Pump: No Joint Replacement: No Oral Surgery: Yes Pacemaker: No Thoracic Surgery: Yes (CHEST PORT ) Tonsillectomy: Yes Other Surgery: Yes (right chest port) Social History Alcohol Use: No Tobacco Use: No Substance Use: No Allergies-Medications (Allergen,Severity, Reaction): Coded Allergies: morphine (Verified Allergy, Severe, RASH, 03/29/17) *MDRO Multi-Drug Resistant Organism (Verified Adverse Reaction, Unknown, MRSA, 03/29/17) MRSA (blood) - 12/18/2004 MRSA PCR screen NEGATIVE 08/27/16 & 09/21/16 Cleared per Infection Control Reported Meds & Prescriptions Reported Meds & Active Scripts Active Hydrocodone-Acetaminophen 10-325 mg Tab 1 Tab PO Q6H PRN Hydrea (Hydroxyurea) 500 Mg Cap 500 Mg PO DAILY 30 Days Reported Folic Acid 0.4 Mg Tab 400 Mcg PO DAILY Review of Systems Except as stated in HPI: all other systems reviewed are Neg General / Constitutional: No: Fever, Chills Respiratory: No: Shortness of Breath Musculoskeletal: Positive: Pain (her usual sickle cell pain) Neurologic: Positive: Weakness Physical Exam Narrative GENERAL: Awake and alert and in no acute distress. SKIN: Warm and dry. Good turgor. HEAD: Normocephalic/atraumatic. EYES: Pupils are equal. Extraocular movements are intact. No scleral icterus. NECK: Normal range of motion. CARDIOVASCULAR: Regular rate and rhythm. Systolic ejection murmur. RESPIRATORY: Nonlabored respirations. Lungs are clear with good air movement throughout. Port in her right chest. MUSCULOSKELETAL: Atraumatic. NEUROLOGICAL: Nonfocal. PSYCHIATRIC: Appropriate mood and affect. Data Data Last Documented VS Vital Signs Date Time Temp Pulse Resp B/P (MAP) Pulse Ox O2 Delivery O2 Flow Rate FiO2 03/29/17 09:41 97.9 81 16 115/71 98 03/29/17 08:40 Room Air Orders Orders Blood Product Administration (03/29/17 08:58) Sodium Chlor 0.9% 250 Ml Inj (Ns 250 Ml (03/29/17 09:00) Diphenhydramine (Benadryl) (03/29/17 09:00) Acetaminophen (Tylenol) (03/29/17 09:00) Red Blood Cells (Rbc) (03/29/17 04:05) Type And Screen (03/29/17 04:05) Diphenhydramine Inj (Benadryl Inj) (03/29/17 09:15) Hydromorphone Pf Inj (Dilaudid Pf Inj) (03/29/17 09:15) Admit Order (Ed Use Only) (03/29/17 ) Vital Signs (Adult) Q4H (03/29/17 10:01) Diet Heart Healthy (03/29/17 Lunch) Activity Bed Rest (03/29/17 10:01) Notify Dr: Other (03/29/17 10:01) [facility] Medical Decision Making Medical Screen Exam Complete: Yes Emergency Medical Condition: Yes Medical Record Reviewed: Yes (this is this patient's sixth visit in the month of March for sickle cell. Her hemoglobin is generally in the sevens. Early this morning, it was 6.9. She did have PRBCs ordered.) Differential Diagnosis My differential diagnosis of sickle cell disease includes but is not limited to vaso-occlusive crisis, acute chest syndrome, occult infection, electrolyte disturbance, drug-seeking behavior. Narrative Course This patient presents stating that she is here for her blood transfusion. She is also complaining with sickle cell pain. Her port has been accessed. We checked with the blood bank to see if she has to be typed and crossed again. She does not. One unit of PRBCs has been ordered. This should get her above her usual baseline hemoglobin. She will then be discharged home. The patient was requesting admission for transfusion. I have contacted the hospitalist to see if this is possible. He is agreeable to admission. She will be admitted to obs. Physician Communication Physician Communication Dr. Mj Mancera Diagnosis Primary Impression: Sickle cell anemia Qualified Codes: D57.00 - Hb-SS disease with crisis, unspecified Additional Impression: Sickle cell pain crisis Admitting Information Admitting Physician Requests: Observation Patient Instructions: General Instructions, Sickle Cell Disease (DC) Disposition: DISCHARGE HOME Condition: Stable Inna Delacruz MD Mar 29, 2017 09:08
[2017-03-29] MEDS ORDERED: HYDROmorphone HCL PF 2 MG/ML VIAL IV PUSH ONE (09:15)
[2017-03-29] MEDS ORDERED: diphenhydrAMINE HCL 50 MG/ML VIAL IV PUSH ONE (09:15)
[2017-03-29 09:25] VITALS: BP 104/68; PULSE 89; RESP 18; TEMP 98.2; O2SAT 93
[2017-03-29 09:41] VITALS: BP 115/71; PULSE 81; RESP 16; TEMP 97.9; O2SAT 98
[2017-03-29] MEDS ORDERED: ACETAMINOPHEN/HYDROcodone 325 MG/10 MG TAB PO PRN (10:15)
[2017-03-29] MEDS ORDERED: MAGNESIUM HYDROXIDE SUSP 30 ML CUP PO PRN (10:15)
[2017-03-29] MEDS ORDERED: NALOXONE HCL 0.4 MG/ML AMP IV PUSH PRN (10:15)
[2017-03-29] MEDS ORDERED: ACETAMINOPHEN/HYDROcodone 325 MG/5 MG TAB PO PRN (10:15)
[2017-03-29] MEDS ORDERED: ONDANSETRON HCL 4 MG/2 ML VIAL IVP PRN (10:15)
[2017-03-29] MEDS ORDERED: SODIUM CHLORIDE 0.9% FLUSH 10 ML FLUSH IV FLUSH PRN (10:15)
[2017-03-29 10:50] VITALS: BP 127/62; TEMP 97.8
[2017-03-29] MEDS ORDERED: oxyCODONE/ACETAMINOPHEN 5 MG/325 MG TAB PO PRN (11:15)
[2017-03-29] MEDS ORDERED: HYDROmorphone HCL PF 1 MG/ML VIAL IV PUSH PRN (11:15)
--- NOTE | 2017-03-29 11:18 | HHI.HP ---
[facility] No Primary Care Physician Admission Diagnosis sickle cell anemia Diagnoses: (1) Sickle cell pain crisis Diagnosis: Principal (2) Sickle cell anemia Diagnosis: Principal (3) Severe anemia Diagnosis: Principal (4) Anemia, sickle cell with crisis Diagnosis: Principal Travel History International Travel<30 Days: No Contact w/Intl Traveler <30 Da: No History of Present Illness Mrs. Ching 31-year-old female. She came into the hospital with sickle cell pain crisis and anemia. She left AMA previously but has returned. Hemoglobin was 6.9 on last check. Potassium is slightly depressed. She says that her crisis episodes occur about 3 times per year on average. Her last episode is 4- 5 months ago. She has no secondary complications now or in the past from her crises. No history of heart failure, lung failure, bone infarction, or CVA per patient. She is having some itching with the blood transfusion. No other complaints today. Review of Systems Constitutional: COMPLAINS OF: Fatigue, DENIES: Fever, Chills Eyes: DENIES: Blurred vision, Diplopia, Eye inflammation, Eye pain Ears, nose, mouth, throat: DENIES: Tinnitus, Hearing loss, Vertigo Respiratory: DENIES: Cough, Wheezing, Shortness of breath Cardiovascular: DENIES: Chest pain, Palpitations, Syncope Gastrointestinal: DENIES: Abdominal pain, Black stools, Bloody stools Musculoskeletal: COMPLAINS OF: Joint pain, Muscle aches, Stiffness, Joint Swelling, Back pain, Neck pain Integumentary: COMPLAINS OF: Pruritus, DENIES: Abnormal pigmentation, Rash, Nail changes Hematologic/lymphatic: DENIES: Bruising, Lymphadenopathy Immunologic/allergic: DENIES: Eczema, Urticaria Neurologic: DENIES: Abnormal gait, Headache, Paresthesias Psychiatric: DENIES: Anxiety, Confusion, Hallucinations Past Family Social History Past Medical History Sickle cell disease Past Surgical History Cholecystectomy Tubal ligation Reported Medications Reported Meds & Active Scripts Active Hydrocodone-Acetaminophen 10-325 mg Tab 1 Tab PO Q6H PRN Hydrea (Hydroxyurea) 500 Mg Cap 500 Mg PO DAILY 30 Days Reported Folic Acid 0.4 Mg Tab 400 Mcg PO DAILY Allergies: Coded Allergies: morphine (Verified Allergy, Severe, RASH, 03/29/17) *MDRO Multi-Drug Resistant Organism (Verified Adverse Reaction, Unknown, MRSA, 03/29/17) MRSA (blood) - 12/18/2004 MRSA PCR screen NEGATIVE 08/27/16 & 09/21/16 Cleared per Infection Control Active Ordered Medications Administered Medications Medications (Trade) Dose Ordered Sig/Marielle Route PRN Reason Start Time Stop Time Status Last Admin Dose Admin Sodium Chloride 250 ml @ 15 mls/hr ONCE ONCE IV 03/29/17 09:00 03/30/17 01:39 03/29/17 09:19 Family History Sickle cell disease Social History No smoking, no drinking, no illicit drug abuse. Physical Exam Vital Signs Vital Signs Date Time Temp Pulse Resp B/P (MAP) Pulse Ox O2 Delivery O2 Flow Rate FiO2 03/29/17 10:50 97.8 76 17 127/62 (83) 99 03/29/17 10:17 17 03/29/17 09:48 17 03/29/17 09:41 97.9 81 16 115/71 98 03/29/17 09:25 98.2 89 18 104/68 93 03/29/17 08:40 87 16 98 Room Air 03/29/17 08:30 98.2 84 17 120/72 (88) 95 Room Air Physical Exam GENERAL: NAD, A&Ox3 HEAD: Normocephalic. NECK: Supple, trachea midline. No lymphadenopathy. EYES: No scleral icterus. No injection or drainage. CARDIOVASCULAR: Regular rate and rhythm without murmurs, gallops, or rubs. RESPIRATORY: Breath sounds equal bilaterally. No accessory muscle use. GASTROINTESTINAL: Abdomen soft, non-tender, nondistended. MUSCULOSKELETAL: No cyanosis, or edema. Diffuse joint tenderness with range of motion. SKIN: Warm and dry. NEURO: No focal neurological deficitis. Caprini VTE Risk Assessment Caprini VTE Risk Assessment: No/Low Risk (score <= 1) Caprini Risk Assessment Model Point Value = 1 Point Value = 2 Point Value = 3 Point Value = 5 Age 41-60 Minor surgery BMI > 25 kg/m2 Swollen legs Varicose veins or History of unexplained or recurrent spontaneous Oral contraceptives or hormone replacement Sepsis (< 1 month) Serious lung disease, including pneumonia (< 1 month) Abnormal pulmonary function Acute myocardial infarction Congestive heart failure (< 1 month) History of inflammatory bowel disease Medical patient at bed rest Age 61-74 Arthroscopic surgery Major open surgery (> 45 min) Laparoscopic surgery (> 45 min) Malignancy Confined to bed (> 72 hours) Immobilizing plaster cast Central venous access Age >= 75 History of VTE Family history of VTE Factor V Leiden Prothrombin [id number] Lupus anticoagulant Anticardiolipin antibodies Elevated serum homocysteine Heparin-induced thrombocytopenia Other congenital or acquired thrombophilia Stroke (< 1 month) Elective arthroplasty Hip, pelvis, or leg fracture Acute spinal cord injury (< 1 month) Prophylaxis Regimen Total Risk Factor Score Risk Level Prophylaxis Regimen 0-1 Low Early ambulation 2 Moderate Order ONE of the following: *Sequential Compression Device (SCD) *Heparin 5000 units SQ BID 3-4 Higher Order ONE of the following medications: *Heparin 5000 units SQ TID *Enoxaparin/Lovenox 40 mg SQ daily (WT < 150 kg, CrCl > 30 mL/min) *Enoxaparin/Lovenox 30 mg SQ daily (WT < 150 kg, CrCl > 10-29 mL/min) *Enoxaparin/Lovenox 30 mg SQ BID (WT < 150 kg, CrCl > 30 mL/min) AND/OR *Sequential Compression Device (SCD) 5 or more Highest Order ONE of the following medications: *Heparin 5000 units SQ TID (Preferred with Epidurals) *Enoxaparin/Lovenox 40 mg SQ daily (WT < 150 kg, CrCl > 30 mL/min) *Enoxaparin/Lovenox 30 mg SQ daily (WT < 150 kg, CrCl > 10-29 mL/min) *Enoxaparin/Lovenox 30 mg SQ BID (WT < 150 kg, CrCl > 30 mL/min) AND *Sequential Compression Device (SCD) Assessment and Plan Problem List: (1) Severe anemia ICD Code: D64.9 - Severe anemia Status: Acute (2) Anemia, sickle cell with crisis ICD Code: D57.00 - Hb-SS disease with crisis, unspecified Status: Acute (3) Sickle cell pain crisis ICD Code: D57.00 - Hb-SS disease with crisis, unspecified Status: Acute (4) Sickle cell anemia ICD Code: D57.1 - Sickle-cell disease without crisis Status: Acute Assessment and Plan Assessment and plan 31-year-old female admitted secondary to sickle cell crisis with anemia Sickle cell crisis Acute blood loss anemia Sickle cell pain crisis Transfuse 1 unit packed red blood cells on 03/29/17 Follow hemoglobin Treat pain with Percocet breakthrough Dilaudid Monitor for improvement of symptoms IV hydration Hypokalemia Monitor and replace as needed Pruritus Continue as needed Benadryl Consider steroids as a breakthrough if this Benadryl treatment fails DVT prophylaxis SCDs Physician Certification 2 Midnight Certification Type: Admission for Inpatient Services Order for Inpatient Services The services are ordered in accordance with Medicare regulations or non- Medicare payer requirements, as applicable. In the case of services not specified as inpatient-only, they are appropriately provided as inpatient services in accordance with the 2-midnight benchmark. Estimated LOS (days): 2 days is the estimated time the patient will need to remain in the hospital, assuming treatment plan goals are met and no additional complications. Post-Hospital Plan: Home Problem Qualifiers (1) Sickle cell anemia: Qualified Codes: D57.00 - Hb-SS disease with crisis, unspecified Mac Mancera MD Mar 29, 2017 11:18
[2017-03-29] MEDS: SODIUM CHLOR 0.9% 1000 ML INJ 1,000 ML IV SCH ×2 (11:44→20:11)
[2017-03-29 12:00] VITALS: BP 102/67; PULSE 72; RESP 16; TEMP 97.2; O2SAT 94
[2017-03-29] MEDS: oxyCODONE/ACETAMINOPHEN 10 MG/325 MG TAB PO PRN ×3 (12:02→21:04)
[2017-03-29] MEDS: HYDROmorphone HCL PF 1 MG/ML VIAL IV PUSH PRN ×3 (13:26→21:44)
[2017-03-29] MEDS: diphenhydrAMINE HCL 50 MG/ML VIAL IV PUSH PRN ×3 (13:27→21:45)
[2017-03-29 20:00] VITALS: BP 119/81; PULSE 73; RESP 17; TEMP 97.2; O2SAT 94
[2017-03-29] MEDS: SODIUM CHLORIDE 0.9% FLUSH 10 ML FLUSH IV FLUSH SCH (20:12)
[2017-03-30] VITALS: BP 116/78; PULSE 73; RESP 17; TEMP 97; O2SAT 95
[2017-03-30] MEDS: oxyCODONE/ACETAMINOPHEN 10 MG/325 MG TAB PO PRN ×6 (01:10→22:03)
[2017-03-30] MEDS: HYDROmorphone HCL PF 1 MG/ML VIAL IV PUSH PRN ×6 (02:00→22:48)
[2017-03-30] MEDS: SODIUM CHLOR 0.9% 1000 ML INJ 1,000 ML IV SCH (06:01)
[2017-03-30] MEDS: diphenhydrAMINE HCL 50 MG/ML VIAL IV PUSH PRN ×5 (06:20→22:48)
[2017-03-30 06:46] LABS: AUTOMATED NEUTROPHIL # 3.1 TH/MM3 (1.8-7.7); BASOPHIL # 0.1 TH/MM3 (0-0.2); BASOPHIL % 1.2 % (0.0-2.0); EOSINOPHIL # 0.4 TH/MM3 (0-0.4); HEMATOCRIT 24.4 % (35.0-46.0); LYMPH % 47.7 % (9.0-44.0); LYMPHOCYTE # 3.9 TH/MM3 (1.0-4.8); MEAN CELL VOLUME 83.9 FL (80.0-100.0); MEAN CORPUSCULAR HEMOGLOBIN 30.5 PG (27.0-34.0); MONO % 8.5 % (0.0-8.0); NEUT % 37.6 % (16.0-70.0); PLATELET COUNT 335 TH/MM3 (150-450); RED BLOOD COUNT 2.91 MIL/MM3 (4.00-5.30); RED CELL DISTRIBUTION WIDTH 20.1 % (11.6-17.2); WHITE BLOOD COUNT 8.2 TH/MM3 (4.0-11.0)
[2017-03-30 07:03] LABS: HEMO FLAGS AUTO DIFF; MEAN CORPUSCULAR HGB CONC 36.3 % (32.0-36.0)
[2017-03-30 07:12] LABS: ALT (GPT) 20 U/L (10-53)
[2017-03-30] MEDS: SODIUM CHLORIDE 0.9% FLUSH 10 ML FLUSH IV FLUSH SCH ×2 (07:13→21:00)
[2017-03-30 07:14] LABS: ALKALINE PHOSPHATASE 89 U/L (45-117); TOTAL BILIRUBIN ADULT 1.6 MG/DL (0.2-1.0)
[2017-03-30 07:21] LABS: ANION GAP 4 MEQ/L (5-15); AST (GOT) 67 U/L (15-37); BICARBONATE 26.6 MEQ/L (21.0-32.0); BLOOD UREA NITROGEN 5 MG/DL (7-18); CHLORIDE 108 MEQ/L (98-107); GLOMERULAR FILTRATION RATE 176 ML/MIN (>89); SODIUM (NA) 139 MEQ/L (136-145)
[2017-03-30 08:00] VITALS: BP 105/68; PULSE 70; RESP 16; TEMP 97.4; O2SAT 93
[2017-03-30 09:19] LABS: CORRECTED NUCLEATED RBC 6 /100 WBC (0-0); EOSINOPHILS 5 % (0-4); NEUTROPHIL # MANUAL DIFF 3.6 TH/MM3 (1.8-7.7); PLATELET ESTIMATE SMEAR NORMAL (NORMAL); PLATELET MORPHOLOGY NORMAL (NORMAL); POLYS (SEG NEUTROPHILS) 44 % (16-70); SCAN/DIFF FINAL DIFF MANUAL; WBC DIFF SAMPLE 100
[2017-03-30 09:20] LABS: OVALOCYTES 1+ (NORMAL); SICKLE CELLS 2+ (NORMAL); TARGET CELLS 1+ (NORMAL)
[2017-03-30 09:21] LABS: HOWELL-JOLLY BODIES PRESENT (NONE SEEN)
[2017-03-30 12:00] VITALS: BP 106/70; PULSE 76; RESP 18; TEMP 97; O2SAT 92
[2017-03-30] MEDS ORDERED: HYDR-3583 PO (12:36)
--- NOTE | 2017-03-30 13:27 | HHI.PR ---
Subjective Remarks Pain slightly improved but still requesting Dilaudid. States pain is not controlled on oral medications. Objective Vitals Vital Signs Date Time Temp Pulse Resp B/P (MAP) Pulse Ox O2 Delivery O2 Flow Rate FiO2 03/30/17 12:00 97.0 76 18 106/70 (82) 92 03/30/17 08:00 97.4 70 16 105/68 (80) 93 03/30/17 00:00 97.0 73 17 116/78 (91) 95 03/29/17 20:00 97.2 73 17 119/81 (94) 94 I/O 03/29/17 03/29/17 03/29/17 03/30/17 03/30/17 03/30/17 07:00 15:00 23:00 07:00 15:00 23:00 Intake Total 420 ml 1491 ml 767 ml Balance 420 ml 1491 ml 767 ml Intake Oral 600 ml 240 ml IV Total 891 ml 527 ml Packed Cells 400 ml Blood Product IV Normal Saline Flush 20 ml # Voids 3 2 # Bowel Movements 0 Result Diagram: 03/30/17 0600 03/30/17 0600 Objective Remarks GENERAL: No acute distress. SKIN: Warm and dry CARDIOVASCULAR: Regular rate and rhythm. RESPIRATORY: No accessory muscle use. Clear to auscultation. Breath sounds equal bilaterally. GASTROINTESTINAL: Abdomen soft, non-tender, nondistended. MUSCULOSKELETAL: Report pain in bilateral knees. NEUROLOGICAL: Awake and alert. No obvious cranial nerve deficits. Motor grossly within normal limits. Five out of 5 muscle strength in the arms and legs. Normal speech. PSYCHIATRIC: Appropriate mood and affect; insight and judgment normal. A/P Problem List: (1) Severe anemia ICD Code: D64.9 - Severe anemia Status: Acute (2) Anemia, sickle cell with crisis ICD Code: D57.00 - Hb-SS disease with crisis, unspecified Status: Acute (3) Sickle cell pain crisis ICD Code: D57.00 - Hb-SS disease with crisis, unspecified Status: Acute (4) Sickle cell anemia ICD Code: D57.1 - Sickle-cell disease without crisis Status: Acute Assessment and Plan 31-year-old female admitted secondary to sickle cell crisis with anemia. Patient with frequent Hospital visit for pain. She reports she was previously followed by Dr. Del Castillo and had better control when she could go to the clinic for IV hydration and pain control. Her current quirk sander does not offer IV therapy in the clinic. We discussed addiction potential of Narcotics and the need to establish with a sickle cell clinic. Sickle cell crisis Acute blood loss anemia Sickle cell pain crisis S/P Transfusion of 1 unit packed red blood cells on 03/29/17 H&H improved Continue with Percocet with Dilaudid for breakthrough. Patient reports her pain is not controlled yet with oral pain meds only. She will se if she feels better later. If she feels she can manage at home on Lortab, she can be DC later today on Lortab otherwise continue current management Follow labs, LDH in AM if remain in house. Monitor for improvement of symptoms IV hydration, change to 1/2 NS at 126 CC/Hr Pruritus Continue as needed Benadryl DVT prophylaxis SCDs Discharge Planning Plan to DC later today or tomorrow depending on symptoms and labs. Problem Qualifiers (1) Sickle cell anemia: Qualified Codes: D57.00 - Hb-SS disease with crisis, unspecified Rachana Garcia MD Mar 30, 2017 13:27
[2017-03-30] MEDS: POTASSIUM CHLORIDE INJ 10 MEQ in SODIUM CHLOR 0.45% 1000 ML INJ 1,000 ML IV SCH ×2 (14:28→22:18)
[2017-03-30 16:00] VITALS: BP_SYST 86; BP_SYST 91; BP_DIAS 54; BP_DIAS 56; PULSE 82; RESP 16; TEMP 97.9; O2SAT 94
[2017-03-30 20:00] VITALS: BP 96/51; PULSE 74; RESP 17; TEMP 98.2; O2SAT 94
[2017-03-31] VITALS: BP 103/58; PULSE 70; RESP 17; TEMP 97.7; O2SAT 95
[2017-03-31] MEDS: oxyCODONE/ACETAMINOPHEN 10 MG/325 MG TAB PO PRN ×4 (02:12→14:19)
[2017-03-31] MEDS: HYDROmorphone HCL PF 1 MG/ML VIAL IV PUSH PRN ×4 (02:50→15:16)
[2017-03-31] MEDS: diphenhydrAMINE HCL 50 MG/ML VIAL IV PUSH PRN ×4 (02:50→15:15)
[2017-03-31 06:25] LABS: MEAN CELL VOLUME 84.5 FL (80.0-100.0); MEAN CORPUSCULAR HEMOGLOBIN 29.6 PG (27.0-34.0); MEAN CORPUSCULAR HGB CONC 35.1 % (32.0-36.0); PLATELET COUNT 370 TH/MM3 (150-450); RED BLOOD COUNT 3.08 MIL/MM3 (4.00-5.30); RED CELL DISTRIBUTION WIDTH 20.5 % (11.6-17.2); WHITE BLOOD COUNT 8.7 TH/MM3 (4.0-11.0)
[2017-03-31 06:27] LABS: REVIEW FLAG FINAL
[2017-03-31] MEDS: POTASSIUM CHLORIDE INJ 10 MEQ in SODIUM CHLOR 0.45% 1000 ML INJ 1,000 ML IV SCH ×2 (07:05→14:39)
[2017-03-31 07:14] LABS: TOTAL BILIRUBIN ADULT 1.9 MG/DL (0.2-1.0)
[2017-03-31 07:20] LABS: INDIRECT BILIRUBIN 1.7 MG/DL (0.0-0.8)
[2017-03-31 07:21] LABS: POTASSIUM 4.1 MEQ/L (3.5-5.1)
[2017-03-31 08:00] VITALS: BP 99/60; PULSE 72; RESP 16; TEMP 97.6; O2SAT 93
[2017-03-31] MEDS: SODIUM CHLORIDE 0.9% FLUSH 10 ML FLUSH IV FLUSH SCH (08:16)
[2017-03-31 12:00] VITALS: BP 107/75; PULSE 75; RESP 17; TEMP 98.6; O2SAT 94
--- NOTE | 2017-03-31 14:45 | HHI.DCPOC ---
Discharge Care Plan Diagnosis: (1) Sickle cell pain crisis (2) Sickle cell anemia Goals to Promote Your Health * To prevent worsening of your condition and complications * To maintain your health at the optimal level Directions to Meet Your Goals Take your medications as prescribed Follow your dietary instruction Follow activity as directed Keep your appointments as scheduled Take your immunizations and boosters as scheduled If your symptoms worsen call your PCP, if no PCP go to Urgent Care Center or Emergency Room Smoking is Dangerous to Your Health. Avoid second hand smoke Call the 24-hour hour crisis hotline for domestic abuse at Rachana Garcia MD Mar 31, 2017 14:45
--- NOTE | 2017-03-31 14:55 | HHI.DS ---
Discharge Summary Admission Date Mar 29, 2017 at 10:35 Discharge Date: Mar 31, 2017 Admitting Diagnosis sickle cell anemia (1) Severe anemia ICD Code: D64.9 - Severe anemia Status: Acute (2) Anemia, sickle cell with crisis ICD Code: D57.00 - Hb-SS disease with crisis, unspecified Status: Acute (3) Sickle cell pain crisis ICD Code: D57.00 - Hb-SS disease with crisis, unspecified Status: Acute (4) Sickle cell anemia ICD Code: D57.1 - Sickle-cell disease without crisis Status: Acute Procedures None Brief History - From Admission History of present illness from the admitting physician Mrs. Ching 31-year-old female. She came into the hospital with sickle cell pain crisis and anemia. She left AMA previously but has returned. Hemoglobin was 6.9 on last check. Potassium is slightly depressed. She says that her crisis episodes occur about 3 times per year on average. Her last episode is 4- 5 months ago. She has no secondary complications now or in the past from her crises. No history of heart failure, lung failure, bone infarction, or CVA per patient. She is having some itching with the blood transfusion. No other complaints today. CBC/BMP: 03/31/17 0600 03/31/17 0600 Significant Findings Laboratory Tests Test 03/30/17 06:00 03/31/17 06:00 Red Blood Count 2.91 MIL/MM3 (4.00-5.30) 3.08 MIL/MM3 (4.00-5.30) Hemoglobin 8.9 GM/DL (11.6-15.3) 9.1 GM/DL (11.6-15.3) Hematocrit 24.4 % (35.0-46.0) 26.0 % (35.0-46.0) Mean Corpuscular Hemoglobin Concent 36.3 % (32.0-36.0) Red Cell Distribution Width 20.1 % (11.6-17.2) 20.5 % (11.6-17.2) Lymphocytes (%) (Auto) 47.7 % (9.0-44.0) Monocytes (%) (Auto) 8.5 % (0.0-8.0) Eosinophils (%) (Auto) 5.0 % (0.0-4.0) Lymphocytes % 45 % (9-44) Eosinophils % 5 % (0-4) Nucleated Red Blood Cells 6 /100 WBC (0-0) Sickle Cells 2+ (NORMAL) Target Cells 1+ (NORMAL) Ovalocytes 1+ (NORMAL) Blood Urea Nitrogen 5 MG/DL (7-18) 5 MG/DL (7-18) Creatinine 0.49 MG/DL (0.50-1.00) 0.44 MG/DL (0.50-1.00) Albumin 3.1 GM/DL (3.4-5.0) 3.2 GM/DL (3.4-5.0) Calcium Level 8.1 MG/DL (8.5-10.1) 8.3 MG/DL (8.5-10.1) Aspartate Amino Transf (AST/SGOT) 67 U/L (15-37) 72 U/L (15-37) Total Bilirubin 1.6 MG/DL (0.2-1.0) 1.9 MG/DL (0.2-1.0) Chloride Level 108 MEQ/L (98-107) Anion Gap 4 MEQ/L (5-15) Lactate Dehydrogenase 996 U/L (84-246) 952 U/L (84-246) Indirect Bilirubin 1.7 MG/DL (0.0-0.8) PE at Discharge GENERAL: No acute distress. SKIN: Warm and dry CARDIOVASCULAR: Regular rate and rhythm. RESPIRATORY: No accessory muscle use. Clear to auscultation. Breath sounds equal bilaterally. GASTROINTESTINAL: Abdomen soft, non-tender, nondistended. MUSCULOSKELETAL: Report pain in bilateral knees. NEUROLOGICAL: Awake and alert. No obvious cranial nerve deficits. Motor grossly within normal limits. Five out of 5 muscle strength in the arms and legs. Normal speech. PSYCHIATRIC: Appropriate mood and affect; insight and judgment normal. Pt update on day of discharge Patient reports that her pain is better controlled. She wants 1 more dose of Dilaudid prior to being discharged today. No shortness of breath or chest pain. Hospital Course 31-year-old female with sickle cell and recurrent/frequent hospital visit for pain. She reports she was previously followed by Dr. Del Castillo and had better control when she could go to the clinic for IV hydration and pain control. Her current electric needle specialist does not offer IV therapy in the clinic. The patient was admitted and treated with hypotonic IV fluid and pain control with Percocet and IV Dilaudid. Patient did show preference for IV pain medication. We discussed addiction potential of Narcotics and the need to establish with a sickle cell clinic. Patient received 1 units of PRBC transfusion on 03/29/17. Her H&H continued to improve. LDH also improved. She reported that her pain was improved. She is discharged on Magnet. She is to remain on hydroxyurea and folic acid. It is unclear if she is compliant. I also advised the patient to discuss referral to pain management with her PCP. Pt Condition on Discharge: Good Discharge Disposition: Discharge Home Discharge Time: <= 30 minutes Discharge Instructions DIET: Follow Instructions for: As Tolerated, No Restrictions Activities you can perform: Regular-No Restrictions Follow up Referrals: Hematology - 1 Week PCP Follow-up - 1 Week Continued Medications: Folic Acid (Folic Acid) 0.4 Mg Tab 400 MCG PO DAILY for Nutritional Supplement, TAB 0 Refills Hydrocodone-Acetaminophen (Hydrocodone-Acetaminophen) 10-325 mg Tab 1 TAB PO Q6H PRN for PAIN, #30 TAB 0 Refills (This prescription has been renewed ) Hydroxyurea (Hydrea) 500 Mg Cap 500 MG PO DAILY for 30 Days, #30 CAP Rachana Garcia MD Mar 31, 2017 14:55
== END 2017-03-31 18:01 | disposition home or self-care (01) | DRG 812 ==
LOC: NEPC 08:27 → NEDA 10:03 → OBSVTOIN 10:35 → N07A 10:56
PROVIDERS: ADMIT Family Medicine; ATTEND Family Medicine
PROC: 30233N1 Transfusion of Nonautologous Red Blood Cells into Peripheral Vein, Percutaneous Approach (ICD-10-PCS; principal; 2017-03-29)
DX: D57.00 Hb-SS disease with crisis, unspecified (principal); E87.6 Hypokalemia; L29.9 Pruritus, unspecified; D62 Acute posthemorrhagic anemia
CPT/HCPCS: 36430; 71010; 80048; 80053; 80076; 83615; 85007; 85027; 85044; 86140; 86850; 86900; 86901; 86920; 93005; 96361; 96374; 96375; J1170; J1200; J2405; J3480; J7030; J7050; P9016

== ENCOUNTER 2017-04-09 07:28 | Emergency (ER) | payer OTHER ==
[~2017-04-09] VITALS: Ht 152.4 cm; Wt 57.0 kg
[2017-04-09 07:30] VITALS: BP 120/68; PULSE 95; RESP 18; TEMP 98.7; O2SAT 96
--- NOTE | 2017-04-09 07:54 | PD ---
HPI Chief Complaint: Sickle Cell Time Seen by Provider: 07:35 Travel History International Travel<30 days: No Contact w/Intl Traveler<30days: No Traveled to known affect area: No History of Present Illness HPI This is a 31-year-old female with history of sickle cell disease, who presents here today with complaints of back pain and knee pain. Patient was recently admitted to the hospital and had to be transfused 2 weeks ago. She reports no fevers, chills. She reports no cough or shortness of breath. She denies any dysuria urgency or frequency. The patient is well-known to this emerged department and usually gets fluid, IVP pain medicine and Benadryl. There are no other complaints time my examination. PFSH Past Medical History Hx Anticoagulant Therapy: No Anemia: Yes Arthritis: No Asthma: No Autoimmune Disease: No Blood Disorders: Yes (sickle cell disease) Anxiety: No Depression: No Heart Rhythm Problems: No Cancer: No Cardiovascular Problems: No High Cholesterol: No Chemotherapy: No Chest Pain: No Congestive Heart Failure: No COPD: No Cerebrovascular Accident: No Diabetes: No Diminished Hearing: No Endocrine: No Gastrointestinal Disorders: Yes (GALLSTONES) GERD: No Genitourinary: No Headaches: Yes Hiatal Hernia: No Heparin Induced Thrombocytopen: No Immune Disorder: No Implanted Vascular Access Dvce: Yes (RIGHT CHEST ) Insomnia: Yes Kidney Stones: Yes Musculoskeletal: No Neurologic: No Psychiatric: No Reproductive: No Respiratory: No Immunizations Current: Yes Migraines: No Pneumonia: Yes Radiation Therapy: No Renal Failure: No Seizures: No Sickle Cell Disease: Yes Sleep Apnea: No Thyroid Disease: No Ulcer: No PNEUMOCCOCAL Vaccine (Year): 2 : 2 Para: 1 Miscarriage: 1 : 0 Tubal Ligation: Yes Past Surgical History Abdominal Surgery: Yes AICD: No Arteriovenous Shunt: No Body Medical Devices: right chest port Cardiac Surgery: No Section: Yes (X 1) Cholecystectomy: Yes Ear Surgery: No Endocrine Surgery: No Eye Surgery: No Genitourinary Surgery: No Gynecologic Surgery: Yes (tubal ligation) Hysterectomy: No Insulin Pump: No Joint Replacement: No Oral Surgery: Yes Pacemaker: No Thoracic Surgery: Yes (CHEST PORT ) Tonsillectomy: Yes Other Surgery: Yes (right chest port) Social History Alcohol Use: No Tobacco Use: No Substance Use: No Allergies-Medications (Allergen,Severity, Reaction): Coded Allergies: morphine (Verified Allergy, Mild, RASH, 04/09/17) *MDRO Multi-Drug Resistant Organism (Verified Adverse Reaction, Unknown, MRSA, 04/09/17) MRSA (blood) - 12/18/2004 MRSA PCR screen NEGATIVE 08/27/16 & 09/21/16 Cleared per Infection Control Reported Meds & Prescriptions Reported Meds & Active Scripts Active Hydrocodone-Acetaminophen 10-325 mg Tab 1 Tab PO Q6H PRN Hydrea (Hydroxyurea) 500 Mg Cap 500 Mg PO DAILY 30 Days Reported Folic Acid 0.4 Mg Tab 400 Mcg PO DAILY Review of Systems Except as stated in HPI: all other systems reviewed are Neg General / Constitutional: No: Fever HENT: No: Headaches, Neck Pain Cardiovascular: No: Chest Pain or Discomfort, Palpitations Respiratory: No: Cough, Shortness of Breath Gastrointestinal: No: Nausea, Vomiting, Abdominal Pain Genitourinary: No: Frequency, Dysuria Musculoskeletal: Positive: Pain, No: Weakness, Edema Neurologic: No: Weakness, Headache Physical Exam Narrative GENERAL: Well-nourished, well-developed patient. SKIN: Focused skin assessment warm/dry. HEAD: Normocephalic/atraumatic. EYES: Positive scleral icterus. No injection or drainage. NECK: Supple, trachea midline. CARDIOVASCULAR: Regular rate and rhythm without murmurs, gallops, or rubs. RESPIRATORY: Breath sounds equal bilaterally. No accessory muscle use. GASTROINTESTINAL: Abdomen soft, non-tender, nondistended. MUSCULOSKELETAL: No cyanosis, or edema. BACK: Objective tenderness in her bilateral SI joint region. No spinous tenderness. NEUROLOGICAL: Awake and alert. Cranial nerves II through XII intact. Motor grossly within normal limits. Five out of 5 muscle strength in all muscle groups. Normal speech. Data Data Last Documented VS Vital Signs Date Time Temp Pulse Resp B/P (MAP) Pulse Ox O2 Delivery O2 Flow Rate FiO2 04/09/17 11:24 75 15 95/58 (70) 95 Room Air 04/09/17 07:30 98.7 Orders Orders Complete Blood Count With Diff (04/09/17 07:47) Basic Metabolic Panel (Bmp) (04/09/17 07:47) Urinalysis - C+S If Indicated (04/09/17 07:47) Iv Access Insert/Monitor (04/09/17 07:47) Ecg Monitoring (04/09/17 07:47) Oximetry (04/09/17 07:47) Ondansetron Inj (Zofran Inj) (04/09/17 08:00) Hydromorphone Pf Inj (Dilaudid Pf Inj) (04/09/17 08:00) Diphenhydramine Inj (Benadryl Inj) (04/09/17 08:00) Sodium Chlor 0.9% 1000 Ml Inj (Ns 1000 M (04/09/17 08:00) Hydromorphone Pf Inj (Dilaudid Pf Inj) (04/09/17 09:00) Diphenhydramine Inj (Benadryl Inj) (04/09/17 09:00) Potassium Chloride (Kcl) (04/09/17 11:30) Ed Discharge Order (04/09/17 11:25) Labs Laboratory Tests Test 04/09/17 08:00 White Blood Count 9.9 TH/MM3 Red Blood Count 2.49 MIL/MM3 Hemoglobin 8.2 GM/DL Hematocrit 21.8 % Mean Corpuscular Volume 87.6 FL Mean Corpuscular Hemoglobin 33.0 PG Mean Corpuscular Hemoglobin Concent 37.7 % Red Cell Distribution Width 19.7 % Platelet Count 357 TH/MM3 Mean Platelet Volume 8.5 FL Neutrophils (%) (Auto) 33.9 % Lymphocytes (%) (Auto) 52.5 % Monocytes (%) (Auto) 9.8 % Eosinophils (%) (Auto) 3.5 % Basophils (%) (Auto) 0.3 % Neutrophils # (Auto) 3.4 TH/MM3 Lymphocytes # (Auto) 5.2 TH/MM3 Monocytes # (Auto) 1.0 TH/MM3 Eosinophils # (Auto) 0.3 TH/MM3 Basophils # (Auto) 0.0 TH/MM3 CBC Comment AUTO DIFF Differential Total Cells Counted 100 Neutrophils % (Manual) 40 % Lymphocytes % 48 % Monocytes % 7 % Eosinophils % 5 % Neutrophils # (Manual) 4.0 TH/MM3 Nucleated Red Blood Cells 7 /100 WBC Differential Comment FINAL DIFF MANUAL Platelet Estimate NORMAL Platelet Morphology Comment NORMAL Polychromasia 2.0 % Sickle Cells 2+ Target Cells 1+ [place] Bodies PRESENT Red Cell Morphology Comment Blood Urea Nitrogen 7 MG/DL Creatinine 0.57 MG/DL Random Glucose 121 MG/DL Calcium Level 8.3 MG/DL Sodium Level 137 MEQ/L Potassium Level 3.4 MEQ/L Chloride Level 103 MEQ/L Carbon Dioxide Level 29.0 MEQ/L Anion Gap 5 MEQ/L Estimat Glomerular Filtration Rate 148 ML/MIN MDM Medical Decision Making Medical Screen Exam Complete: Yes Emergency Medical Condition: Yes Differential Diagnosis Pain crisis versus UTI versus anemia Narrative Course 31-year-old female well-known to this emergency department, who presents today with complaints of pain in her back and knees. Patient has a history of sickle cell disease. She's been given 1 L of IVD fluid, 2 doses of Dilaudid and 2 doses of Benadryl. She'll be discharged home. She'll be instructed to follow up with her physician. Diagnosis Primary Impression: Pain syndrome, chronic Additional Impressions: Sickle cell anemia mild hypokalemia Additional Instructions: Increase your potassium rich foods Disposition: 01 DISCHARGE HOME Condition: Stable Lazaro Teague MD Apr 09, 2017 07:54
[2017-04-09] MEDS ORDERED: diphenhydrAMINE HCL 50 MG/ML VIAL IV PUSH ONE (08:00)
[2017-04-09] MEDS ORDERED: SODIUM CHLOR 0.9% 1000 ML INJ 1,000 ML IV ONE (08:00)
[2017-04-09] MEDS ORDERED: ONDANSETRON HCL 4 MG/2 ML VIAL IV PUSH ONE (08:00)
[2017-04-09] MEDS ORDERED: HYDROmorphone HCL PF 1 MG/ML VIAL IV PUSH ONE ×2 (08:00→09:00)
[2017-04-09 08:34] LABS: AUTOMATED NEUTROPHIL # 3.4 TH/MM3 (1.8-7.7); BASOPHIL % 0.3 % (0.0-2.0); EOSINOPHIL # 0.3 TH/MM3 (0-0.4); EOSINOPHIL % 3.5 % (0.0-4.0); HEMATOCRIT 21.8 % (35.0-46.0); LYMPH % 52.5 % (9.0-44.0); LYMPHOCYTE # 5.2 TH/MM3 (1.0-4.8); MEAN CELL VOLUME 87.6 FL (80.0-100.0); MONO % 9.8 % (0.0-8.0); NEUT % 33.9 % (16.0-70.0); PLATELET COUNT 357 TH/MM3 (150-450); RED BLOOD COUNT 2.49 MIL/MM3 (4.00-5.30); RED CELL DISTRIBUTION WIDTH 19.7 % (11.6-17.2); WHITE BLOOD COUNT 9.9 TH/MM3 (4.0-11.0)
[2017-04-09 08:36] LABS: MEAN CORPUSCULAR HGB CONC 37.7 % (32.0-36.0)
[2017-04-09 08:37] LABS: HEMO FLAGS AUTO DIFF
[2017-04-09] MEDS ORDERED: diphenhydrAMINE HCL 50 MG/ML VIAL IM ONE (09:00)
[2017-04-09 09:07] LABS: POTASSIUM 3.4 MEQ/L (3.5-5.1)
[2017-04-09 09:12] LABS: CORRECTED NUCLEATED RBC 7 /100 WBC (0-0); EOSINOPHILS 5 % (0-4); POLYS (SEG NEUTROPHILS) 40 % (16-70); WBC DIFF SAMPLE 100
[2017-04-09 09:13] LABS: PLATELET ESTIMATE SMEAR NORMAL (NORMAL); PLATELET MORPHOLOGY NORMAL (NORMAL); SCAN/DIFF FINAL DIFF MANUAL; SICKLE CELLS 2+ (NORMAL); TARGET CELLS 1+ (NORMAL)
[2017-04-09 09:14] LABS: HOWELL-JOLLY BODIES PRESENT (NONE SEEN)
[2017-04-09 11:24] VITALS: BP_SYST 95; BP_DIAS 56; BP_DIAS 58; PULSE 75; RESP 15; O2SAT 95
[2017-04-09] MEDS ORDERED: POTASSIUM CHLORIDE 10 MEQ CONTROLLED RELEASE TAB PO ONE (11:30)
== END 2017-04-09 12:26 | disposition home or self-care (01) ==
LOC: NEPC 07:28
DX: G89.4 Chronic pain syndrome (principal); D57.1 Sickle-cell disease without crisis; E87.6 Hypokalemia; M54.9 Dorsalgia, unspecified; M25.569 Pain in unspecified knee; D64.9 Anemia, unspecified; G47.00 Insomnia, unspecified; Z87.442 Personal history of urinary calculi; Z79.899 Other long term (current) drug therapy
CPT/HCPCS: 80048; 85007; 85027; 96361; 96372; 96374; 96375; 99284; J1170; J1200; J2405; J7030

== ENCOUNTER 2017-04-12 02:27 | Emergency (ER) | payer OTHER ==
[2017-04-12 02:29] VITALS: BP 110/63; PULSE 92; RESP 16; TEMP 99.1; O2SAT 95
[2017-04-12 03:16] LABS: AUTOMATED NEUTROPHIL # 4.6 TH/MM3 (1.8-7.7); BASOPHIL # 0.1 TH/MM3 (0-0.2); BASOPHIL % 0.8 % (0.0-2.0); EOSINOPHIL # 0.4 TH/MM3 (0-0.4); EOSINOPHIL % 3.7 % (0.0-4.0); HEMATOCRIT 22.9 % (35.0-46.0); LYMPH % 41.8 % (9.0-44.0); LYMPHOCYTE # 4.2 TH/MM3 (1.0-4.8); MEAN CELL VOLUME 84.8 FL (80.0-100.0); MEAN CORPUSCULAR HEMOGLOBIN 30.3 PG (27.0-34.0); MEAN CORPUSCULAR HGB CONC 35.7 % (32.0-36.0); MONO % 8.1 % (0.0-8.0); NEUT % 45.6 % (16.0-70.0); PLATELET COUNT 419 TH/MM3 (150-450); RED CELL DISTRIBUTION WIDTH 19.6 % (11.6-17.2); RETIC % 11.1 % (0.4-3.0); WHITE BLOOD COUNT 10.1 TH/MM3 (4.0-11.0)
[2017-04-12 03:18] LABS: HEMO FLAGS AUTO DIFF; REVIEW FLAG AUTO DIFF
[2017-04-12] MEDS ORDERED: SODIUM CHLOR 0.9% 1000 ML INJ 1,000 ML IV ONE (04:00)
[2017-04-12] MEDS ORDERED: HYDROmorphone HCL PF 1 MG/ML VIAL IV PUSH ONE (04:00)
--- NOTE | 2017-04-12 04:00 | PD ---
HPI Chief Complaint: Sickle Cell Time Seen by Provider: 03:45 Travel History International Travel<30 days: No Contact w/Intl Traveler<30days: No Traveled to known affect area: No History of Present Illness HPI 31-year-old female seen in the presence of her nurse notes continued pain to her back and bilateral knees since being discharged. She states that she does not have any fever or other new complaints. She states she followed with her flue lining dipper Dr. Rivas and he did not make any changes. She states given she felt worse she elected to come here. Quality pain is sharp. Severity severe. PFSH Past Medical History Hx Anticoagulant Therapy: No Anemia: Yes Arthritis: No Asthma: No Autoimmune Disease: No Blood Disorders: Yes (sickle cell disease) Anxiety: No Depression: No Heart Rhythm Problems: No Cancer: No Cardiovascular Problems: No High Cholesterol: No Chemotherapy: No Chest Pain: No Congestive Heart Failure: No COPD: No Cerebrovascular Accident: No Diabetes: No Diminished Hearing: No Endocrine: No Gastrointestinal Disorders: Yes (GALLSTONES) GERD: No Genitourinary: No Headaches: Yes Hiatal Hernia: No Heparin Induced Thrombocytopen: No Immune Disorder: No Implanted Vascular Access Dvce: Yes (RIGHT CHEST ) Insomnia: Yes Kidney Stones: Yes Musculoskeletal: No Neurologic: No Psychiatric: No Reproductive: No Respiratory: No Immunizations Current: Yes Migraines: No Pneumonia: Yes Radiation Therapy: No Renal Failure: No Seizures: No Sickle Cell Disease: Yes Sleep Apnea: No Thyroid Disease: No Ulcer: No PNEUMOCCOCAL Vaccine (Year): 2 ?: Not : 2 Para: 1 Miscarriage: 1 : 0 Tubal Ligation: Yes Past Surgical History Abdominal Surgery: Yes AICD: No Arteriovenous Shunt: No Body Medical Devices: right chest port Cardiac Surgery: No Section: Yes (X 1) Cholecystectomy: Yes Ear Surgery: No Endocrine Surgery: No Eye Surgery: No Genitourinary Surgery: No Gynecologic Surgery: Yes (tubal ligation) Hysterectomy: No Insulin Pump: No Joint Replacement: No Oral Surgery: Yes Pacemaker: No Thoracic Surgery: Yes (CHEST PORT ) Tonsillectomy: Yes Other Surgery: Yes (right chest port) Social History Alcohol Use: No Tobacco Use: No Substance Use: No Allergies-Medications (Allergen,Severity, Reaction): Coded Allergies: morphine (Verified Allergy, Mild, RASH, 04/12/17) *MDRO Multi-Drug Resistant Organism (Verified Adverse Reaction, Unknown, MRSA, 04/12/17) MRSA (blood) - 12/18/2004 MRSA PCR screen NEGATIVE 08/27/16 & 09/21/16 Cleared per Infection Control Reported Meds & Prescriptions Reported Meds & Active Scripts Active Hydrocodone-Acetaminophen 10-325 mg Tab 1 Tab PO Q6H PRN Hydrea (Hydroxyurea) 500 Mg Cap 500 Mg PO DAILY 30 Days Reported Folic Acid 0.4 Mg Tab 400 Mcg PO DAILY Review of Systems Except as stated in HPI: all other systems reviewed are Neg Respiratory: No: Shortness of Breath Genitourinary: No: Dysuria Physical Exam Narrative GENERAL: Well-nourished, well-developed patient. Well-appearing SKIN: Warm and dry. HEAD: Normocephalic and atraumatic. EYES: No injection or drainage. ENT: No nasal drainage noted. NECK: Supple, trachea midline. CARDIOVASCULAR: Regular rate and rhythm RESPIRATORY: Breath sounds equal bilaterally. No accessory muscle use. GASTROINTESTINAL: Abdomen soft, non-tender, nondistended. EXTREMITIES: No edema. No trauma noted to bilateral knees, no swelling, no pain with palpation BACK: Nontender without obvious deformity in midline. NEUROLOGICAL: Awake and alert. Motor and sensory grossly within normal limits. Normal speech. Data Data Last Documented VS Vital Signs Date Time Temp Pulse Resp B/P (MAP) Pulse Ox O2 Delivery O2 Flow Rate FiO2 04/12/17 02:29 99.1 92 16 110/63 (79) 95 Room Air Orders Orders Complete Blood Count With Diff (04/12/17 03:00) Retic Count (04/12/17 03:00) Iv Access Insert/Monitor (04/12/17 03:00) Comprehensive Metabolic Panel (04/12/17 03:00) Sodium Chlor 0.9% 1000 Ml Inj (Ns 1000 M (04/12/17 04:00) Hydromorphone Pf Inj (Dilaudid Pf Inj) (04/12/17 04:00) Ed Discharge Order (04/12/17 04:08) Labs Laboratory Tests Test 04/12/17 03:05 White Blood Count 10.1 TH/MM3 Red Blood Count 2.70 MIL/MM3 Hemoglobin 8.2 GM/DL Hematocrit 22.9 % Mean Corpuscular Volume 84.8 FL Mean Corpuscular Hemoglobin 30.3 PG Mean Corpuscular Hemoglobin Concent 35.7 % Red Cell Distribution Width 19.6 % Platelet Count 419 TH/MM3 Mean Platelet Volume 8.3 FL Neutrophils (%) (Auto) 45.6 % Lymphocytes (%) (Auto) 41.8 % Monocytes (%) (Auto) 8.1 % Eosinophils (%) (Auto) 3.7 % Basophils (%) (Auto) 0.8 % Neutrophils # (Auto) 4.6 TH/MM3 Lymphocytes # (Auto) 4.2 TH/MM3 Monocytes # (Auto) 0.8 TH/MM3 Eosinophils # (Auto) 0.4 TH/MM3 Basophils # (Auto) 0.1 TH/MM3 CBC Comment AUTO DIFF Reticulocyte Count 11.1 % Absolute Reticulocyte Count 299.9 MIL/L Blood Urea Nitrogen 5 MG/DL Creatinine 0.47 MG/DL Random Glucose 91 MG/DL Total Protein 8.0 GM/DL Albumin 3.3 GM/DL Calcium Level 8.8 MG/DL Alkaline Phosphatase 98 U/L Aspartate Amino Transf (AST/SGOT) 78 U/L Alanine Aminotransferase (ALT/SGPT) 23 U/L Total Bilirubin 1.7 MG/DL Sodium Level 137 MEQ/L Potassium Level 4.3 MEQ/L Chloride Level 103 MEQ/L Carbon Dioxide Level 30.2 MEQ/L Anion Gap 4 MEQ/L Estimat Glomerular Filtration Rate 185 ML/MIN MDM Medical Decision Making Medical Screen Exam Complete: Yes Emergency Medical Condition: Yes Medical Record Reviewed: Yes (past history confirmed) Interpretation(s) CBC & BMP Diagram 04/12/17 03:05 CBC & BMP Diagram 04/12/17 03:05 Total Protein 8.0, Albumin 3.3 L, Calcium Level 8.8, Alkaline Phosphatase 98, Aspartate Amino Transf (AST/SGOT) 78 H, Alanine Aminotransferase (ALT/SGPT) 23, Total Bilirubin 1.7 H Differential Diagnosis Vaso-occlusive crisis, anemia, chronic pain Narrative Course Will check labs and reevaluate, give 1 dose of IV fluids that contain 1 mg of Dilaudid Labs are stable, patient given return instructions and can follow with her flue lining dipper Patient elected to leave before getting her pain medication as she requested Benadryl and as she was told this could be given oral she decided she didn't want to stay to get the rest of her pain medication and fluids and just wanted to go in that case. Diagnosis Primary Impression: Sickle cell anemia Additional Impression: Chronic pain Qualified Codes: G89.29 - Other chronic pain Patient Instructions: General Instructions Additional Instructions: return with any emergent need, take home pain medication, follow with your flue lining dipper Med/Other Pt SpecificInfo: No Change to Meds Disposition: 01 DISCHARGE HOME Condition: Stable Ria Javed MD Apr 12, 2017 04:00
[2017-04-12 04:01] LABS: ALKALINE PHOSPHATASE 98 U/L (45-117); ALT (GPT) 23 U/L (10-53); ANION GAP 4 MEQ/L (5-15); AST (GOT) 78 U/L (15-37); BICARBONATE 30.2 MEQ/L (21.0-32.0); BLOOD UREA NITROGEN 5 MG/DL (7-18); CHLORIDE 103 MEQ/L (98-107); GLOMERULAR FILTRATION RATE 185 ML/MIN (>89); POTASSIUM 4.3 MEQ/L (3.5-5.1); SODIUM (NA) 137 MEQ/L (136-145); TOTAL BILIRUBIN ADULT 1.7 MG/DL (0.2-1.0)
[2017-04-12 04:52] LABS: BASOPHILS 3 % (0-2); CORRECTED NUCLEATED RBC 12 /100 WBC (0-0); EOSINOPHILS 4 % (0-4); NEUTROPHIL # MANUAL DIFF 5.6 TH/MM3 (1.8-7.7); POLYS (SEG NEUTROPHILS) 55 % (16-70); WBC DIFF SAMPLE 100
[2017-04-12 04:53] LABS: OVALOCYTES 2+ (NORMAL); SICKLE CELLS 2+ (NORMAL)
[2017-04-12 04:54] LABS: HOWELL-JOLLY BODIES PRESENT (NONE SEEN); PLATELET ESTIMATE SMEAR HIGH (NORMAL); PLATELET MORPHOLOGY NORMAL (NORMAL); SCAN/DIFF FINAL DIFF MANUAL; TARGET CELLS 1+ (NORMAL)
== END 2017-04-12 04:29 | disposition home or self-care (01) ==
LOC: NEPC 02:27
DX: D57.1 Sickle-cell disease without crisis (principal); G89.29 Other chronic pain
CPT/HCPCS: 80053; 85007; 85027; 85044; 99282

== ENCOUNTER 2017-04-15 08:04 | Emergency (ER) | payer OTHER ==
[~2017-04-15] VITALS: Ht 152.4 cm; Wt 57.0 kg
[2017-04-15 08:05] VITALS: BP 111/68; PULSE 96; RESP 18; TEMP 99.6; O2SAT 94
[2017-04-15] MEDS ORDERED: SODIUM CHLOR 0.9% 1000 ML INJ 1,000 ML IV ONE ×2 (09:17→09:45)
[2017-04-15] MEDS ORDERED: SODIUM CHLORIDE 0.9% FLUSH 10 ML FLUSH IVF PRN (09:30)
[2017-04-15 09:35] VITALS: RESP 18; O2SAT 97
[2017-04-15] MEDS ORDERED: diphenhydrAMINE HCL 50 MG/ML VIAL IV PUSH ONE ×2 (09:45→11:45)
[2017-04-15] MEDS ORDERED: HYDROmorphone HCL PF 1 MG/ML VIAL IVS ONE ×2 (09:45→11:45)
[2017-04-15] MEDS ORDERED: KETOROLAC TROMETHAMINE 30 MG/ML (IVP) VIAL IVP ONE (09:45)
--- NOTE | 2017-04-15 09:46 | PD ---
HPI Chief Complaint: Sickle Cell Time Seen by Provider: 09:16 Travel History International Travel<30 days: No Contact w/Intl Traveler<30days: No Traveled to known affect area: No History of Present Illness HPI Patient is a 31-year-old female who presents to emergency room with complaints of sickle cell crisis. Patient reports that she does follow-up with Dr. Rivas her big data lead for sickle cell disease. She was seen by him on , reports that he usually prescribes Lortab for her chronic pain. Patient reports that her sickle cell crisis was exacerbated on Friday after she fell onto her lower back at work. Patient denies any incontinence of urine or stool , denies any difficulty with gait ambulation. Denies saddle anesthesia. Patient reports that since she hurt her back on Friday, she has exacerbation of her low back pain as well as bilateral knee pain. Patient reports that whenever she has her sickle cell flareups, she has increased pains to her back as well as bilateral knees. Patient reports that symptoms today are typical for her sickle cell crisis. Patient reports that in the past, her previous hematologists would treat her for her chronic pain with Dilaudid in the office, reports that Dr. Rivas does not offer these services and tells her to go to the emergency room every time she has her sickle cell crisis for treatment. Patient reports that pain is moderate to severe, reports no fever or chills with her symptoms. Reports that symptoms are typical to her normal sickle cell crisis. PFSH Past Medical History Hx Anticoagulant Therapy: No Anemia: Yes Arthritis: No Asthma: No Autoimmune Disease: No Blood Disorders: Yes (sickle cell disease) Anxiety: No Depression: No Heart Rhythm Problems: No Cancer: No Cardiovascular Problems: No High Cholesterol: No Chemotherapy: No Chest Pain: No Congestive Heart Failure: No COPD: No Cerebrovascular Accident: No Diabetes: No Diminished Hearing: No Endocrine: No Gastrointestinal Disorders: Yes (GALLSTONES) GERD: No Genitourinary: No Headaches: Yes Hiatal Hernia: No Heparin Induced Thrombocytopen: No Immune Disorder: No Implanted Vascular Access Dvce: Yes (RIGHT CHEST ) Insomnia: Yes Kidney Stones: Yes Musculoskeletal: No Neurologic: No Psychiatric: No Reproductive: No Respiratory: No Immunizations Current: Yes Migraines: No Pneumonia: Yes Radiation Therapy: No Renal Failure: No Seizures: No Sickle Cell Disease: Yes Sleep Apnea: No Thyroid Disease: No Ulcer: No PNEUMOCCOCAL Vaccine (Year): 2 : 2 Para: 1 Miscarriage: 1 : 0 Tubal Ligation: Yes Past Surgical History Abdominal Surgery: Yes AICD: No Arteriovenous Shunt: No Body Medical Devices: right chest port Cardiac Surgery: No Section: Yes (X 1) Cholecystectomy: Yes Ear Surgery: No Endocrine Surgery: No Eye Surgery: No Genitourinary Surgery: No Gynecologic Surgery: Yes (tubal ligation) Hysterectomy: No Insulin Pump: No Joint Replacement: No Oral Surgery: Yes Pacemaker: No Thoracic Surgery: Yes (CHEST PORT ) Tonsillectomy: Yes Other Surgery: Yes (right chest port) Social History Alcohol Use: No Tobacco Use: No Substance Use: No Allergies-Medications (Allergen,Severity, Reaction): Coded Allergies: morphine (Verified Allergy, Severe, RASH, 04/15/17) *MDRO Multi-Drug Resistant Organism (Verified Adverse Reaction, Unknown, MRSA, 04/12/17) MRSA (blood) - 12/18/2004 MRSA PCR screen NEGATIVE 08/27/16 & 09/21/16 Cleared per Infection Control Reported Meds & Prescriptions Reported Meds & Active Scripts Active Hydrocodone-Acetaminophen 10-325 mg Tab 1 Tab PO Q6H PRN Hydrea (Hydroxyurea) 500 Mg Cap 500 Mg PO DAILY 30 Days Reported Folic Acid 0.4 Mg Tab 400 Mcg PO DAILY Review of Systems General / Constitutional: No: Fever, Chills Eyes: No: Visual changes HENT: No: Headaches Cardiovascular: No: Chest Pain or Discomfort Respiratory: No: Shortness of Breath Gastrointestinal: No: Abdominal Pain Genitourinary: No: Dysuria Musculoskeletal: Positive: Pain (back pain, bilateral knee pain), No: Edema Skin: No Rash Neurologic: No: Weakness Psychiatric: No: Depression Endocrine: No: Polydipsia Hematologic/Lymphatic: No: Easy Bruising Physical Exam Narrative GENERAL: Mild distress SKIN: Focused skin assessment warm/dry. HEAD: Atraumatic. Normocephalic. EYES: Pupils equal and round. No scleral icterus. No injection or drainage. ENT: No nasal bleeding or discharge. Mucous membranes pink and moist. NECK: Trachea midline. No JVD. CARDIOVASCULAR: Regular rate and rhythm. No murmur appreciated. RESPIRATORY: No accessory muscle use. Clear to auscultation. Breath sounds equal bilaterally. GASTROINTESTINAL: Abdomen soft, non-tender, nondistended. Hepatic and splenic margins not palpable. MUSCULOSKELETAL: No obvious deformities. No clubbing. No cyanosis. No edema. Patient with lumbar paraspinal tenderness NEUROLOGICAL: Awake and alert. No obvious cranial nerve deficits. Motor grossly within normal limits. Normal speech. PSYCHIATRIC: Appropriate mood and affect; insight and judgment normal. Data Data Last Documented VS Vital Signs Date Time Temp Pulse Resp B/P (MAP) Pulse Ox O2 Delivery O2 Flow Rate FiO2 04/15/17 11:30 97.9 68 16 118/83 (95) 98 Room Air Orders Orders Basic Metabolic Panel (Bmp) (04/15/17 09:17) Complete Blood Count With Diff (04/15/17 09:17) Retic Count (04/15/17 09:17) Urinalysis - C+S If Indicated (04/15/17 09:17) Iv Access Insert/Monitor (04/15/17 09:17) Oximetry (04/15/17 09:17) Sodium Chloride 0.9% Flush (Ns Flush) (04/15/17 09:30) Sodium Chlor 0.9% 1000 Ml Inj (Ns 1000 M (04/15/17 09:17) Ed Urine Pregnancytest Poc (04/15/17 09:17) Spine, Lumbar - Ltd (Ap & Lat) (04/15/17 ) Electrocardiogram (04/15/17 09:32) Ecg Monitoring (04/15/17 09:32) Chest, Pa & Lat (04/15/17 09:32) Ketorolac Inj (Toradol Inj) (04/15/17 09:45) Hydromorphone Pf Inj (Dilaudid Pf Inj) (04/15/17 09:45) Diphenhydramine Inj (Benadryl Inj) (04/15/17 09:45) Sodium Chlor 0.9% 1000 Ml Inj (Ns 1000 M (04/15/17 09:45) Hydromorphone Pf Inj (Dilaudid Pf Inj) (04/15/17 11:45) Diphenhydramine Inj (Benadryl Inj) (04/15/17 11:45) Labs Laboratory Tests Test 04/15/17 10:15 White Blood Count 11.3 TH/MM3 Red Blood Count 2.66 MIL/MM3 Hemoglobin 8.0 GM/DL Hematocrit 22.4 % Mean Corpuscular Volume 84.3 FL Mean Corpuscular Hemoglobin 30.1 PG Mean Corpuscular Hemoglobin Concent 35.7 % Red Cell Distribution Width 19.4 % Platelet Count 343 TH/MM3 Mean Platelet Volume 7.9 FL Neutrophils (%) (Auto) 50.6 % Lymphocytes (%) (Auto) 35.1 % Monocytes (%) (Auto) 9.9 % Eosinophils (%) (Auto) 3.7 % Basophils (%) (Auto) 0.7 % Neutrophils # (Auto) 5.7 TH/MM3 Lymphocytes # (Auto) 4.0 TH/MM3 Monocytes # (Auto) 1.1 TH/MM3 Eosinophils # (Auto) 0.4 TH/MM3 Basophils # (Auto) 0.1 TH/MM3 CBC Comment AUTO DIFF Differential Total Cells Counted 100 Neutrophils % (Manual) 52 % Lymphocytes % 44 % Monocytes % 3 % Neutrophils # (Manual) 6.0 TH/MM3 Myelocytes 1 % Nucleated Red Blood Cells 1 /100 WBC Differential Comment FINAL DIFF MANUAL Platelet Estimate NORMAL Platelet Morphology Comment NORMAL Polychromasia 3.0 % Sickle Cells 2+ Target Cells 2+ Fields-Bowring Bodies PRESENT Keratocytes OCC Reticulocyte Count 8.1 % Absolute Reticulocyte Count 215.5 MIL/L Blood Urea Nitrogen 5 MG/DL Creatinine 0.51 MG/DL Random Glucose 112 MG/DL Calcium Level 8.6 MG/DL Sodium Level 138 MEQ/L Potassium Level 3.7 MEQ/L Chloride Level 103 MEQ/L Carbon Dioxide Level 28.7 MEQ/L Anion Gap 6 MEQ/L Estimat Glomerular Filtration Rate 168 ML/MIN [facility] Medical Decision Making Medical Screen Exam Complete: Yes Emergency Medical Condition: Yes Medical Record Reviewed: Yes Interpretation(s) EKG at 1011: NSR at 89bpm,qt/qtc: 345/392, nonspecific t wave changes, ekg similar to ekg from 03/29/17 Vital Signs Date Time Temp Pulse Resp B/P (MAP) Pulse Ox O2 Delivery O2 Flow Rate FiO2 04/15/17 08:05 99.6 96 18 111/68 (82) 94 Room Air Differential Diagnosis Sickle cell crisis, anemia, electrolyte abnormality, muscle sprain Narrative Course Patient is a 31-year-old female who is well-known to emergency room as she has history of sickle cell disease and has recurrent sickle cell crisis. She is currently being followed by big data lead, Dr. Rivas. Patient presents the emergency room for acute on chronic low back pain as well as bilateral knee pain. Patient reports that she injured her low back on Friday while at work, patient with no signs and symptoms of cauda equina. Patient reports that symptoms exacerbate her sickle cell crisis, she does take Lortab at home which has not helped with her symptoms today. During the course of the patients emergency department visit, the patients history, examination, and differential diagnosis were reviewed with the patient. The patient was placed on a paper cone machine operator with oximetry and frequent blood pressure monitoring. The patient had an IV access obtained and blood work sent for analysis. The patient was initially provided IV fluids, IV Dilaudid, IV Toradol. The patients laboratory studies were reviewed and remarkable for: Laboratory Tests Test 04/15/17 10:15 White Blood Count 11.3 TH/MM3 (4.0-11.0) Red Blood Count 2.66 MIL/MM3 (4.00-5.30) Hemoglobin 8.0 GM/DL (11.6-15.3) Hematocrit 22.4 % (35.0-46.0) Mean Corpuscular Volume 84.3 FL (80.0-100.0) Mean Corpuscular Hemoglobin 30.1 PG (27.0-34.0) Mean Corpuscular Hemoglobin Concent 35.7 % (32.0-36.0) Red Cell Distribution Width 19.4 % (11.6-17.2) Platelet Count 343 TH/MM3 (150-450) Mean Platelet Volume 7.9 FL (7.0-11.0) Neutrophils (%) (Auto) 50.6 % (16.0-70.0) Lymphocytes (%) (Auto) 35.1 % (9.0-44.0) Monocytes (%) (Auto) 9.9 % (0.0-8.0) Eosinophils (%) (Auto) 3.7 % (0.0-4.0) Basophils (%) (Auto) 0.7 % (0.0-2.0) Neutrophils # (Auto) 5.7 TH/MM3 (1.8-7.7) Lymphocytes # (Auto) 4.0 TH/MM3 (1.0-4.8) Monocytes # (Auto) 1.1 TH/MM3 (0-0.9) Eosinophils # (Auto) 0.4 TH/MM3 (0-0.4) Basophils # (Auto) 0.1 TH/MM3 (0-0.2) CBC Comment AUTO DIFF Differential Total Cells Counted 100 Neutrophils % (Manual) 52 % (16-70) Lymphocytes % 44 % (9-44) Monocytes % 3 % (0-8) Neutrophils # (Manual) 6.0 TH/MM3 (1.8-7.7) Myelocytes 1 % (0-0) Nucleated Red Blood Cells 1 /100 WBC (0-0) Differential Comment FINAL DIFF MANUAL Platelet Estimate NORMAL (NORMAL) Platelet Morphology Comment NORMAL (NORMAL) Polychromasia 3.0 % (0.0-1.9) Sickle Cells 2+ (NORMAL) Target Cells 2+ (NORMAL) Fields-Bowring Bodies PRESENT (NONE SEEN) Keratocytes OCC (NORMAL) Reticulocyte Count 8.1 % (0.4-3.0) Absolute Reticulocyte Count 215.5 MIL/L (20.0-150.0) Blood Urea Nitrogen 5 MG/DL (7-18) Creatinine 0.51 MG/DL (0.50-1.00) Random Glucose 112 MG/DL (74-106) Calcium Level 8.6 MG/DL (8.5-10.1) Sodium Level 138 MEQ/L (136-145) Potassium Level 3.7 MEQ/L (3.5-5.1) Chloride Level 103 MEQ/L (98-107) Carbon Dioxide Level 28.7 MEQ/L (21.0-32.0) Anion Gap 6 MEQ/L (5-15) Estimat Glomerular Filtration Rate 168 ML/MIN (>89) Radiology studies were reviewed and remarkable for: Last Impressions Chest X-Ray 04/15/17 0932 Signed Impressions: Service Date/Time: Saturday, April 15, 2017 09:48 - CONCLUSION: No acute disease. Kevan Romo MD FACR Lumbar Spine X-Ray 04/15/17 0000 Signed Impressions: Service Date/Time: Saturday, April 15, 2017 09:51 - CONCLUSION: Negative Kevan Romo MD FACR Patient reevaluated, patient reports that she is feeling slightly better, patient requesting another round of IV pain medications with IV Benadryl for pruritus Patient reevaluated, patient reports that she feels 100% better and would like to be discharged. Reviewed all studies as well as all labs patient including all incidental findings, she will follow up with big data lead and will return to the emergency room as needed. Diagnosis Primary Impression: Anemia, sickle cell with crisis Patient Instructions: General Instructions, Narcotic given in the ED Additional Instructions: Please provide patient with a copy of their lab work and studies at discharge* * Please follow up with your primary care doctor in 2-3 days Return to the ER if symptoms worsen or progress Return to the ER as needed Please follow-up with your big data lead as scheduled Disposition: 01 DISCHARGE HOME Condition: Stable Sheri Montoya DO Apr 15, 2017 09:46
[2017-04-15 10:00] VITALS: BP 122/77; PULSE 69; RESP 17; TEMP 97.8; O2SAT 98
--- NOTE | 2017-04-15 10:18 | RADRPT ---
EXAM DATE/TIME: 04/15/2017 09:48 [facility] COMPARISON: CHEST PA & LAT, March 01, 2017, 2:54. INDICATIONS : Sickle cell patient with chest pain. MEDICAL HISTORY : Sickle Cell disease. SURGICAL HISTORY : Cholecystectomy. Infuse a port. ENCOUNTER: Initial ACUITY: 1 day PAIN SCORE: 4/10 LOCATION: Bilateral chest FINDINGS: PA and lateral views of the chest demonstrate the lungs to be symmetrically aerated without evidence of mass, infiltrate or effusion. [id number]-Ofmg in good position. The cardiomediastinal contours are unremarkable. Osseous structures are intact. CONCLUSION: No acute disease. Kevan Romo MD FACR on April 15, 2017 at 10:16 Board Certified Radiologist. This report was verified electronically.
--- NOTE | 2017-04-15 10:19 | RADRPT ---
EXAM DATE/TIME: 04/15/2017 09:51 [facility] COMPARISON: No previous studies available for comparison. INDICATIONS : Sickle cell patient with low back pain. MEDICAL HISTORY : Sickle Cell disease. SURGICAL HISTORY : Cholecystectomy. Infuse a port. ENCOUNTER: Initial ACUITY: 1 day PAIN SCORE: 4/10 LOCATION: Lumbar spine. FINDINGS: Vertebral body changes consistent with sickle cell with osteomyelitis or acute fracture. CONCLUSION: Negative Kevan Romo MD FACR on April 15, 2017 at 10:16 Board Certified Radiologist. This report was verified electronically.
[2017-04-15 10:38] LABS: AUTOMATED NEUTROPHIL # 5.7 TH/MM3 (1.8-7.7); BASOPHIL # 0.1 TH/MM3 (0-0.2); BASOPHIL % 0.7 % (0.0-2.0); EOSINOPHIL # 0.4 TH/MM3 (0-0.4); EOSINOPHIL % 3.7 % (0.0-4.0); HEMATOCRIT 22.4 % (35.0-46.0); LYMPH % 35.1 % (9.0-44.0); MEAN CELL VOLUME 84.3 FL (80.0-100.0); MEAN CORPUSCULAR HEMOGLOBIN 30.1 PG (27.0-34.0); MEAN CORPUSCULAR HGB CONC 35.7 % (32.0-36.0); MONO % 9.9 % (0.0-8.0); NEUT % 50.6 % (16.0-70.0); PLATELET COUNT 343 TH/MM3 (150-450); RED BLOOD COUNT 2.66 MIL/MM3 (4.00-5.30); RED CELL DISTRIBUTION WIDTH 19.4 % (11.6-17.2); RETIC % 8.1 % (0.4-3.0); WHITE BLOOD COUNT 11.3 TH/MM3 (4.0-11.0)
[2017-04-15 10:42] LABS: HEMO FLAGS AUTO DIFF; REVIEW FLAG FINAL
[2017-04-15 10:54] LABS: BICARBONATE 28.7 MEQ/L (21.0-32.0); POTASSIUM 3.7 MEQ/L (3.5-5.1)
[2017-04-15 11:12] LABS: CORRECTED NUCLEATED RBC 1 /100 WBC (0-0); MYELOCYTES 1 % (0-0); POLYS (SEG NEUTROPHILS) 52 % (16-70); WBC DIFF SAMPLE 100
[2017-04-15 11:13] LABS: PLATELET ESTIMATE SMEAR NORMAL (NORMAL); PLATELET MORPHOLOGY NORMAL (NORMAL); SCAN/DIFF FINAL DIFF MANUAL; SICKLE CELLS 2+ (NORMAL); TARGET CELLS 2+ (NORMAL)
[2017-04-15 11:14] LABS: HOWELL-JOLLY BODIES PRESENT (NONE SEEN); KERATOCYTES OCC (NORMAL)
[2017-04-15 11:30] VITALS: BP 118/83; PULSE 68; RESP 16; TEMP 97.9; O2SAT 5; O2SAT 98
[2017-04-15 12:14] VITALS: RESP 16
[2017-04-15 12:51] VITALS: BP 109/76; TEMP 97.8
--- NOTE | 2017-04-15 22:25 | EKG ---
Date Performed: 04/15/2017 Time Performed: 10:11:47 PTAGE: 31 years EKG: Sinus rhythm MODERATE T-WAVE ABNORMALITY, CONSIDER ANTEROLATERAL ISCHEMIA ABNORMAL ECG PREVIOUS TRACING : 03/29/2017 02.49 Compared to prior tracing no significant change DOCTOR: Rocco Monahan Interpretating Date/Time 04/15/2017 22:23:52
== END 2017-04-15 12:51 | disposition home or self-care (01) ==
LOC: NEPD 08:04
DX: D57.00 Hb-SS disease with crisis, unspecified (principal); M25.562 Pain in left knee; M25.561 Pain in right knee; R94.31 Abnormal electrocardiogram [ECG] [EKG]; D64.9 Anemia, unspecified; G47.00 Insomnia, unspecified; Z87.442 Personal history of urinary calculi; Z79.899 Other long term (current) drug therapy; Z87.19 Personal history of other diseases of the digestive system
CPT/HCPCS: 71020; 72100; 80048; 85007; 85027; 85044; 93005; 96361; 96374; 96375; 96376; 99285; J1170; J1200; J1642; J1885; J7030

== ENCOUNTER 2017-04-21 07:57 | Emergency (ER) | payer OTHER ==
[~2017-04-21] VITALS: Ht 152.4 cm; Wt 57.0 kg
[2017-04-21 07:58] VITALS: BP 117/80; PULSE 96; RESP 16; TEMP 98.7; O2SAT 98
--- NOTE | 2017-04-21 08:18 | PD ---
HPI Chief Complaint: Sickle Cell Time Seen by Provider: 08:18 Travel History International Travel<30 days: No Contact w/Intl Traveler<30days: No Traveled to known affect area: No History of Present Illness HPI 31-year-old female came to the emergency room with history of sickle cell crisis pain. She describes her pain in the lower back and lower extremities. Said that this started yesterday. Patient is well-known to the department. She was here on the fifth of this month for painful crisis. Vital signs are stable. [facility] Past Medical History Narrative Medical List of her social, medical, surgical and family history was reviewed from the nursing note. Hx Anticoagulant Therapy: No Anemia: Yes Arthritis: No Asthma: No Autoimmune Disease: No Blood Disorders: Yes (sickle cell disease) Anxiety: No Depression: No Heart Rhythm Problems: No Cancer: No Cardiovascular Problems: No High Cholesterol: No Chemotherapy: No Chest Pain: No Congestive Heart Failure: No COPD: No Cerebrovascular Accident: No Diabetes: No Diminished Hearing: No Endocrine: No Gastrointestinal Disorders: Yes (GALLSTONES) GERD: No Genitourinary: No Headaches: Yes Hiatal Hernia: No Heparin Induced Thrombocytopen: No Immune Disorder: No Implanted Vascular Access Dvce: Yes (RIGHT CHEST ) Insomnia: Yes Kidney Stones: Yes Musculoskeletal: No Neurologic: No Psychiatric: No Reproductive: No Respiratory: No Immunizations Current: Yes Migraines: No Pneumonia: Yes Radiation Therapy: No Renal Failure: No Seizures: No Sickle Cell Disease: Yes Sleep Apnea: No Thyroid Disease: No Ulcer: No PNEUMOCCOCAL Vaccine (Year): 2 ?: Not LMP: now, and had a tubal ligation : 2 Para: 1 Miscarriage: 1 : 0 Tubal Ligation: Yes Past Surgical History Abdominal Surgery: Yes AICD: No Arteriovenous Shunt: No Body Medical Devices: right chest port Cardiac Surgery: No Section: Yes (X 1) Cholecystectomy: Yes Ear Surgery: No Endocrine Surgery: No Eye Surgery: No Genitourinary Surgery: No Gynecologic Surgery: Yes (tubal ligation) Hysterectomy: No Insulin Pump: No Joint Replacement: No Oral Surgery: Yes Pacemaker: No Thoracic Surgery: Yes (CHEST PORT ) Tonsillectomy: Yes Other Surgery: Yes (right chest port) Social History Alcohol Use: No Tobacco Use: No Substance Use: No Allergies-Medications (Allergen,Severity, Reaction): Coded Allergies: morphine (Verified Allergy, Severe, RASH, 04/21/17) *MDRO Multi-Drug Resistant Organism (Verified Adverse Reaction, Unknown, MRSA, 04/21/17) MRSA (blood) - 12/18/2004 MRSA PCR screen NEGATIVE 08/27/16 & 09/21/16 Cleared per Infection Control Comments List of her allergies reviewed from the nursing note. Reported Meds & Prescriptions Reported Meds & Active Scripts Active Hydrocodone-Acetaminophen 10-325 mg Tab 1 Tab PO Q6H PRN Hydrea (Hydroxyurea) 500 Mg Cap 500 Mg PO DAILY 30 Days Reported Folic Acid 0.4 Mg Tab 400 Mcg PO DAILY Narrative Medication List of her home medications reviewed from the nursing note. Review of Systems Except as stated in HPI: all other systems reviewed are Neg Physical Exam Narrative GENERAL: Awake, alert, mild distress SKIN: Focused skin assessment warm/dry. HEAD: Atraumatic. Normocephalic. EYES: Pupils equal and round. No scleral icterus. No injection or drainage. ENT: No nasal bleeding or discharge. Mucous membranes pink and moist. NECK: Trachea midline. No JVD. CARDIOVASCULAR: Regular rate and rhythm. No murmur appreciated. RESPIRATORY: No accessory muscle use. Clear to auscultation. Breath sounds equal bilaterally. GASTROINTESTINAL: Abdomen soft, non-tender, nondistended. Hepatic and splenic margins not palpable. MUSCULOSKELETAL: No obvious deformities. No clubbing. No cyanosis. No edema. NEUROLOGICAL: Awake and alert. No obvious cranial nerve deficits. Motor grossly within normal limits. Normal speech. PSYCHIATRIC: Appropriate mood and affect; insight and judgment normal. Data Data Last Documented VS Vital Signs Date Time Temp Pulse Resp B/P (MAP) Pulse Ox O2 Delivery O2 Flow Rate FiO2 04/21/17 09:20 04/21/17 08:39 96 18 98 Room Air 04/21/17 07:58 98.7 Orders Orders Complete Blood Count With Diff (04/21/17 08:34) Urinalysis - C+S If Indicated (04/21/17 08:34) Basic Metabolic Panel (Bmp) (04/21/17 08:34) Hydromorphone Pf Inj (Dilaudid Pf Inj) (04/21/17 08:45) Sodium Chlor 0.9% 1000 Ml Inj (Ns 1000 M (04/21/17 08:45) Diphenhydramine (Benadryl) (04/21/17 09:00) Urine Culture (04/21/17 08:41) Labs Laboratory Tests Test 04/21/17 08:41 White Blood Count 10.7 TH/MM3 Red Blood Count 2.75 MIL/MM3 Hemoglobin 8.0 GM/DL Hematocrit 22.9 % Mean Corpuscular Volume 83.1 FL Mean Corpuscular Hemoglobin 29.1 PG Mean Corpuscular Hemoglobin Concent 35.0 % Red Cell Distribution Width 19.9 % Platelet Count 338 TH/MM3 Mean Platelet Volume 7.9 FL Neutrophils (%) (Auto) 53.6 % Lymphocytes (%) (Auto) 30.5 % Monocytes (%) (Auto) 12.5 % Eosinophils (%) (Auto) 2.1 % Basophils (%) (Auto) 1.3 % Neutrophils # (Auto) 5.7 TH/MM3 Lymphocytes # (Auto) 3.3 TH/MM3 Monocytes # (Auto) 1.3 TH/MM3 Eosinophils # (Auto) 0.2 TH/MM3 Basophils # (Auto) 0.1 TH/MM3 CBC Comment AUTO DIFF Differential Total Cells Counted 100 Neutrophils % (Manual) 48 % Band Neutrophils % 1 % Lymphocytes % 38 % Monocytes % 11 % Eosinophils % 1 % Basophils % 1 % Neutrophils # (Manual) 5.2 TH/MM3 Nucleated Red Blood Cells 9 /100 WBC Differential Comment FINAL DIFF MANUAL Platelet Estimate NORMAL Platelet Morphology Comment NORMAL Polychromasia 2.2 % Spherocytes OCC Sickle Cells 3+ Fields-Sabattus Bodies PRESENT Urine Color YELLOW Urine Turbidity HAZY Urine pH 6.0 Urine Specific [place] 1.012 Urine Protein NEG mg/dL Urine Glucose (UA) NEG mg/dL Urine Ketones NEG mg/dL Urine Occult Blood TRACE Urine Nitrite NEG Urine Bilirubin NEG Urine Urobilinogen 4.0 MG/DL Urine Leukocyte Esterase NEG Urine RBC 1 /hpf Urine WBC 2 /hpf Urine Squamous Epithelial Cells 15 /hpf Urine Bacteria MOD /hpf Urine Mucus FEW /lpf Microscopic Urinalysis Comment CULTURE INDICATED Blood Urea Nitrogen 5 MG/DL Creatinine 0.52 MG/DL Random Glucose 87 MG/DL Calcium Level 8.5 MG/DL Sodium Level 137 MEQ/L Potassium Level 3.6 MEQ/L Chloride Level 105 MEQ/L Carbon Dioxide Level 24.5 MEQ/L Anion Gap 8 MEQ/L Estimat Glomerular Filtration Rate 164 ML/MIN [facility] Medical Decision Making Medical Screen Exam Complete: Yes Emergency Medical Condition: Yes Medical Record Reviewed: Yes Differential Diagnosis Sickle cell painful crisis, chronic pain syndrome Narrative Course 9:30 AM patient was given pain medication. However I was told by the nurse that patient was not in the room anymore and left without telling anybody. Apparently this is not the first time of her doing this. Procedures EKG Prior to Arrival: No Diagnosis Primary Impression: Sickle cell pain crisis Disposition: AGAINST MEDICAL ADVICE Condition: Serious Iesha Lynn MD Apr 21, 2017 08:18
[2017-04-21] MEDS ORDERED: SODIUM CHLOR 0.9% 1000 ML INJ 1,000 ML IV ONE (08:45)
[2017-04-21] MEDS ORDERED: HYDROmorphone HCL PF 1 MG/ML VIAL IV PUSH ONE (08:45)
[2017-04-21] MEDS ORDERED: diphenhydrAMINE HCL 50 MG CAP PO ONE (09:00)
[2017-04-21 09:13] LABS: AUTOMATED NEUTROPHIL # 5.7 TH/MM3 (1.8-7.7); BASOPHIL # 0.1 TH/MM3 (0-0.2); BASOPHIL % 1.3 % (0.0-2.0); EOSINOPHIL # 0.2 TH/MM3 (0-0.4); EOSINOPHIL % 2.1 % (0.0-4.0); HEMATOCRIT 22.9 % (35.0-46.0); LYMPH % 30.5 % (9.0-44.0); LYMPHOCYTE # 3.3 TH/MM3 (1.0-4.8); MEAN CELL VOLUME 83.1 FL (80.0-100.0); MEAN CORPUSCULAR HEMOGLOBIN 29.1 PG (27.0-34.0); MONO % 12.5 % (0.0-8.0); NEUT % 53.6 % (16.0-70.0); PLATELET COUNT 338 TH/MM3 (150-450); RED BLOOD COUNT 2.75 MIL/MM3 (4.00-5.30); RED CELL DISTRIBUTION WIDTH 19.9 % (11.6-17.2); WHITE BLOOD COUNT 10.7 TH/MM3 (4.0-11.0)
[2017-04-21 09:20] LABS: HEMO FLAGS AUTO DIFF
[2017-04-21 09:22] LABS: BACTERIA, URINE MOD /hpf; BLOOD, URINE TRACE (NEG); COMMENT (UR) CULTURE INDICATED; CULTURE IF INDICATED CULTURE INDICATED; GLUCOSE,URINE NEG (NEG); KETONE, URINE NEG (NEG); MUCUS URINE FEW /lpf (OCC); NITRITE,URINE NEG (NEG); SQUAMOUS EPITHELIAL CELL URINE 15 /hpf (0-5); URINE COLOR YELLOW (YELLW/STRAW)
[2017-04-21 09:44] LABS: BICARBONATE 24.5 MEQ/L (21.0-32.0); POTASSIUM 3.6 MEQ/L (3.5-5.1)
[2017-04-21 09:51] LABS: BANDS 1 % (0-6); BASOPHILS 1 % (0-2); CORRECTED NUCLEATED RBC 9 /100 WBC (0-0); EOSINOPHILS 1 % (0-4); NEUTROPHIL # MANUAL DIFF 5.2 TH/MM3 (1.8-7.7); PLATELET ESTIMATE SMEAR NORMAL (NORMAL); PLATELET MORPHOLOGY NORMAL (NORMAL); POLYS (SEG NEUTROPHILS) 48 % (16-70); SCAN/DIFF FINAL DIFF MANUAL; SICKLE CELLS 3+ (NORMAL); WBC DIFF SAMPLE 100
[2017-04-21 09:52] LABS: HOWELL-JOLLY BODIES PRESENT (NONE SEEN); POLYCHROMASIA 2.2 % (0.0-1.9)
[2017-04-21 09:53] LABS: SPHEROCYTES OCC (NORMAL)
== END 2017-04-21 09:20 | disposition left against medical advice (07) ==
LOC: NEPE 07:57
DX: D57.00 Hb-SS disease with crisis, unspecified (principal); R82.71 Bacteriuria
CPT/HCPCS: 80048; 81001; 85007; 85027; 87086; 96374; 99285; J1170; J7030

== ENCOUNTER 2017-05-03 04:51 | Emergency (ER) | payer OTHER ==
[~2017-05-03] VITALS: Ht 157.5 cm; Wt 56.0 kg
[2017-05-03 04:52] VITALS: BP 114/52; PULSE 92; RESP 16; TEMP 98.8; O2SAT 95
[2017-05-03] MEDS ORDERED: SODIUM CHLOR 0.9% 1000 ML INJ 1,000 ML IV ONE ×2 (05:12→06:30)
[2017-05-03] MEDS ORDERED: diphenhydrAMINE HCL 50 MG/ML VIAL IV PUSH ONE ×2 (05:15→06:30)
[2017-05-03] MEDS ORDERED: HYDROmorphone HCL PF 2 MG/ML VIAL IV PUSH ONE ×2 (05:15→06:30)
--- NOTE | 2017-05-03 05:16 | PD ---
HPI Chief Complaint: Sickle Cell Time Seen by Provider: 05:10 Travel History International Travel<30 days: No Contact w/Intl Traveler<30days: No Traveled to known affect area: No History of Present Illness HPI 31yo F with PMH of sickle cell disease presents to the ED with c/o generalized pain that feels like her sickle cell. Denies any fever, chest pain, sob, n/v, abdominal pain, focal weakness or numbness. Said she is on her menstrual period which makes it worst. Follows with Dr. Rivas cutter tender. PFSH Past Medical History Hx Anticoagulant Therapy: No Anemia: Yes Arthritis: No Asthma: No Autoimmune Disease: No Blood Disorders: Yes (sickle cell disease) Anxiety: No Depression: No Heart Rhythm Problems: No Cancer: No Cardiovascular Problems: Yes High Cholesterol: No Chemotherapy: No Chest Pain: No Congestive Heart Failure: No COPD: No Diabetes: No Diminished Hearing: No Endocrine: No Gastrointestinal Disorders: Yes (GALLSTONES) GERD: No Genitourinary: No Headaches: Yes Hiatal Hernia: No Heparin Induced Thrombocytopen: No Immune Disorder: No Implanted Vascular Access Dvce: Yes (RIGHT CHEST ) Insomnia: Yes Kidney Stones: Yes Musculoskeletal: No Neurologic: No Psychiatric: No Reproductive: No Respiratory: No Immunizations Current: Yes Migraines: No Pneumonia: Yes Radiation Therapy: No Renal Failure: No Seizures: No Sickle Cell Disease: Yes Sleep Apnea: No Thyroid Disease: No Ulcer: No PNEUMOCCOCAL Vaccine (Year): 2 ?: Not : 2 Para: 1 Miscarriage: 1 : 0 Tubal Ligation: Yes Past Surgical History Abdominal Surgery: Yes AICD: No Arteriovenous Shunt: No Body Medical Devices: right chest port Cardiac Surgery: No Section: Yes (X 1) Cholecystectomy: Yes Ear Surgery: No Endocrine Surgery: No Eye Surgery: No Genitourinary Surgery: No Gynecologic Surgery: Yes (tubal ligation) Hysterectomy: No Insulin Pump: No Joint Replacement: No Oral Surgery: Yes Pacemaker: No Thoracic Surgery: Yes (CHEST PORT ) Tonsillectomy: Yes Other Surgery: Yes (right chest port) Social History Alcohol Use: No Tobacco Use: No Substance Use: No Allergies-Medications (Allergen,Severity, Reaction): Coded Allergies: morphine (Verified Allergy, Severe, RASH, 04/21/17) *MDRO Multi-Drug Resistant Organism (Verified Adverse Reaction, Unknown, MRSA, 04/21/17) MRSA (blood) - 12/18/2004 MRSA PCR screen NEGATIVE 08/27/16 & 09/21/16 Cleared per Infection Control Reported Meds & Prescriptions Reported Meds & Active Scripts Active Hydrocodone-Acetaminophen 10-325 mg Tab 1 Tab PO Q6H PRN Hydrea (Hydroxyurea) 500 Mg Cap 500 Mg PO DAILY 30 Days Reported Folic Acid 0.4 Mg Tab 400 Mcg PO DAILY Review of Systems Except as stated in HPI: all other systems reviewed are Neg Physical Exam Narrative GENERAL: 31yo F in mild distress. SKIN: Focused skin assessment warm/dry. HEAD: Atraumatic. Normocephalic. EYES: Pupils equal and round. No scleral icterus. No injection or drainage. ENT: No nasal bleeding or discharge. Mucous membranes pink and moist. NECK: Trachea midline. No JVD. CARDIOVASCULAR: Regular rate and rhythm. No murmur appreciated. RESPIRATORY: No accessory muscle use. Clear to auscultation. Breath sounds equal bilaterally. GASTROINTESTINAL: Abdomen soft, non-tender, nondistended. MUSCULOSKELETAL: No obvious deformities. No clubbing. No cyanosis. No edema. NEUROLOGICAL: Awake and alert. No obvious cranial nerve deficits. Motor grossly within normal limits. Normal speech. PSYCHIATRIC: Appropriate mood and affect; insight and judgment normal. Data Data Last Documented VS Vital Signs Date Time Temp Pulse Resp B/P (MAP) Pulse Ox O2 Delivery O2 Flow Rate FiO2 05/03/17 07:35 86 16 110/54 (72) 97 05/03/17 04:52 98.8 Room Air Orders Orders Basic Metabolic Panel (Bmp) (05/03/17 05:12) Complete Blood Count With Diff (05/03/17 05:12) Retic Count (05/03/17 05:12) Sodium Chlor 0.9% 1000 Ml Inj (Ns 1000 M (05/03/17 05:12) Diphenhydramine Inj (Benadryl Inj) (05/03/17 05:15) Hydromorphone Pf Inj (Dilaudid Pf Inj) (05/03/17 05:15) Hydromorphone Pf Inj (Dilaudid Pf Inj) (05/03/17 06:30) Diphenhydramine Inj (Benadryl Inj) (05/03/17 06:30) Sodium Chlor 0.9% 1000 Ml Inj (Ns 1000 M (05/03/17 06:30) Ed Discharge Order (05/03/17 07:12) Labs Laboratory Tests Test 05/03/17 05:30 White Blood Count 13.0 TH/MM3 Red Blood Count 2.54 MIL/MM3 Hemoglobin 7.9 GM/DL Hematocrit 21.5 % Mean Corpuscular Volume 84.7 FL Mean Corpuscular Hemoglobin 31.1 PG Mean Corpuscular Hemoglobin Concent 36.7 % Red Cell Distribution Width 20.6 % Platelet Count 338 TH/MM3 Mean Platelet Volume 8.3 FL Neutrophils (%) (Auto) 46.2 % Lymphocytes (%) (Auto) 39.5 % Monocytes (%) (Auto) 11.1 % Eosinophils (%) (Auto) 2.4 % Basophils (%) (Auto) 0.8 % Neutrophils # (Auto) 6.0 TH/MM3 Lymphocytes # (Auto) 5.1 TH/MM3 Monocytes # (Auto) 1.4 TH/MM3 Eosinophils # (Auto) 0.3 TH/MM3 Basophils # (Auto) 0.1 TH/MM3 CBC Comment AUTO DIFF Differential Total Cells Counted 100 Neutrophils % (Manual) 49 % Lymphocytes % 46 % Monocytes % 4 % Eosinophils % 1 % Neutrophils # (Manual) 6.4 TH/MM3 Nucleated Red Blood Cells 11 /100 WBC Differential Comment FINAL DIFF MANUAL Platelet Estimate NORMAL Platelet Morphology Comment NORMAL Basophilic Stippling FAINT Spherocytes OCC Sickle Cells 2+ Fields-Anadarko Bodies PRESENT Reticulocyte Count 11.3 % Absolute Reticulocyte Count 285.6 MIL/L Blood Urea Nitrogen 11 MG/DL Creatinine 0.59 MG/DL Random Glucose 100 MG/DL Calcium Level 8.2 MG/DL Sodium Level 137 MEQ/L Potassium Level 3.8 MEQ/L Chloride Level 105 MEQ/L Carbon Dioxide Level 24.5 MEQ/L Anion Gap 8 MEQ/L Estimat Glomerular Filtration Rate 142 ML/MIN [facility] Medical Decision Making Medical Screen Exam Complete: Yes Emergency Medical Condition: Yes Differential Diagnosis Vasoocclusive crisis Narrative Course 31yo F with sickle cell disease here with her usual crisis. Labs reviewed, leukocytosis at 13. H/H 7.9/21.5. BMP unremarkable. Pt given NS IVF, dilaudid and diphenhydramine. Pt reevaluated at bedside and pain has resolved. Return precautions given. Diagnosis Primary Impression: Sickle cell pain crisis Patient Instructions: General Instructions Departure Forms: Tests/Procedures Additional Instructions: Please follow up with your primary care physician in 3-7 days. Return to the ED if symptoms worsen. Med/Other Pt SpecificInfo: No Change to Meds Disposition: 01 DISCHARGE HOME Condition: Stable HernandezSakina saundersnoble FRAZIER May 03, 2017 05:16
[2017-05-03 05:52] LABS: BASOPHIL # 0.1 TH/MM3 (0-0.2); BASOPHIL % 0.8 % (0.0-2.0); EOSINOPHIL # 0.3 TH/MM3 (0-0.4); EOSINOPHIL % 2.4 % (0.0-4.0); HEMATOCRIT 21.5 % (35.0-46.0); HEMOGLOBIN 7.9 GM/DL (11.6-15.3); LYMPH % 39.5 % (9.0-44.0); LYMPHOCYTE # 5.1 TH/MM3 (1.0-4.8); MEAN CELL VOLUME 84.7 FL (80.0-100.0); MEAN CORPUSCULAR HEMOGLOBIN 31.1 PG (27.0-34.0); MEAN PLATELET VOLUME 8.3 FL (7.0-11.0); MONO % 11.1 % (0.0-8.0); MONOCYTE # 1.4 TH/MM3 (0-0.9); NEUT % 46.2 % (16.0-70.0); PLATELET COUNT 338 TH/MM3 (150-450); RED BLOOD COUNT 2.54 MIL/MM3 (4.00-5.30); RED CELL DISTRIBUTION WIDTH 20.6 % (11.6-17.2); RETIC # 285.6 MIL/L (20.0-150.0); RETIC % 11.3 % (0.4-3.0)
[2017-05-03 05:55] LABS: MEAN CORPUSCULAR HGB CONC 36.7 % (32.0-36.0)
[2017-05-03 06:18] LABS: BICARBONATE 24.5 MEQ/L (21.0-32.0); CALCIUM 8.2 MG/DL (8.5-10.1); CREATININE 0.59 MG/DL (0.50-1.00)
[2017-05-03 06:31] LABS: CORRECTED NUCLEATED RBC 11 /100 WBC (0-0); LYMPHOCYTES 46 % (9-44); MONOCYTES 4 % (0-8); NEUTROPHIL # MANUAL DIFF 6.4 TH/MM3 (1.8-7.7); NUCLEATED RED BLOOD CELL 11 (0-0); POLYS (SEG NEUTROPHILS) 49 % (16-70)
[2017-05-03 06:33] LABS: HOWELL-JOLLY BODIES PRESENT (NONE SEEN); SICKLE CELLS 2+ (NORMAL)
[2017-05-03 06:35] LABS: SPHEROCYTES OCC (NORMAL)
[2017-05-03 07:35] VITALS: BP 110/54
== END 2017-05-03 07:37 | disposition home or self-care (01) ==
LOC: NEPE 04:51
DX: D57.00 Hb-SS disease with crisis, unspecified (principal); D72.829 Elevated white blood cell count, unspecified; D64.9 Anemia, unspecified; G47.00 Insomnia, unspecified; Z87.442 Personal history of urinary calculi; Z79.899 Other long term (current) drug therapy; Z88.5 Allergy status to narcotic agent
CPT/HCPCS: 80048; 85007; 85027; 85044; 96361; 96374; 96375; 96376; 99283; J1170; J1200; J7030

== ENCOUNTER 2017-05-07 07:38 | Emergency (ER) | payer OTHER ==
[~2017-05-07] VITALS: Ht 152.4 cm; Wt 58.0 kg
[2017-05-07 07:40] VITALS: BP 123/77; PULSE 89; RESP 16; TEMP 98.8; O2SAT 91
[2017-05-07] MEDS ORDERED: HYDROmorphone HCL PF 2 MG/ML VIAL IVS ONE ×2 (08:00→09:30)
[2017-05-07] MEDS ORDERED: SODIUM CHLOR 0.9% 1000 ML INJ 1,000 ML IV ONE ×2 (08:00→09:30)
[2017-05-07] MEDS ORDERED: diphenhydrAMINE HCL 50 MG/ML VIAL IV PUSH ONE ×2 (08:00→09:30)
--- NOTE | 2017-05-07 08:28 | PD ---
HPI Chief Complaint: Sickle Cell Time Seen by Provider: 07:51 Travel History International Travel<30 days: No Contact w/Intl Traveler<30days: No Traveled to known affect area: No History of Present Illness HPI This is a 31-year-old female with a history of sickle cell disease, who is well- known to this emerged from, presents today with complaints of pain in her back and arms. Patient states that this is around her menstrual cycle time which tends to exacerbate her pain episode. She denies any fevers, chills. She denies any cough or congestion. She denies any dysuria urgency or frequency. She was last seen here reported on the for similar findings. The patient has multiple visits here for sickle cell disease related issues. She is not been transfused recently. PFSH Past Medical History Hx Anticoagulant Therapy: No Anemia: Yes Arthritis: No Asthma: No Autoimmune Disease: No Blood Disorders: Yes (sickle cell disease) Anxiety: No Depression: No Heart Rhythm Problems: No Cancer: No Cardiovascular Problems: Yes High Cholesterol: No Chemotherapy: No Chest Pain: No Congestive Heart Failure: No COPD: No Diabetes: No Diminished Hearing: No Endocrine: No Gastrointestinal Disorders: Yes (GALLSTONES) GERD: No Genitourinary: No Headaches: Yes Hiatal Hernia: No Heparin Induced Thrombocytopen: No Immune Disorder: No Implanted Vascular Access Dvce: Yes (RIGHT CHEST ) Insomnia: Yes Kidney Stones: Yes Musculoskeletal: No Neurologic: No Psychiatric: No Reproductive: No Respiratory: No Immunizations Current: Yes Migraines: No Pneumonia: Yes Radiation Therapy: No Renal Failure: No Seizures: No Sickle Cell Disease: Yes Sleep Apnea: No Thyroid Disease: No Ulcer: No PNEUMOCCOCAL Vaccine (Year): 2 ?: Not LMP: 05/07/17 : 2 Para: 1 Miscarriage: 1 : 0 Tubal Ligation: Yes Past Surgical History Abdominal Surgery: Yes AICD: No Arteriovenous Shunt: No Body Medical Devices: right chest port Cardiac Surgery: No Section: Yes (X 1) Cholecystectomy: Yes Ear Surgery: No Endocrine Surgery: No Eye Surgery: No Genitourinary Surgery: No Gynecologic Surgery: Yes (tubal ligation) Hysterectomy: No Insulin Pump: No Joint Replacement: No Oral Surgery: Yes Pacemaker: No Thoracic Surgery: Yes (CHEST PORT ) Tonsillectomy: Yes Other Surgery: Yes (right chest port) Social History Alcohol Use: No Tobacco Use: No Substance Use: No Allergies-Medications (Allergen,Severity, Reaction): Coded Allergies: morphine (Verified Allergy, Severe, RASH, 04/21/17) *MDRO Multi-Drug Resistant Organism (Verified Adverse Reaction, Unknown, MRSA, 04/21/17) MRSA (blood) - 12/18/2004 MRSA PCR screen NEGATIVE 08/27/16 & 09/21/16 Cleared per Infection Control Reported Meds & Prescriptions Reported Meds & Active Scripts Active Hydrocodone-Acetaminophen 10-325 mg Tab 1 Tab PO Q6H PRN Hydrea (Hydroxyurea) 500 Mg Cap 500 Mg PO DAILY 30 Days Reported Folic Acid 0.4 Mg Tab 400 Mcg PO DAILY Review of Systems Except as stated in HPI: all other systems reviewed are Neg General / Constitutional: No: Fever, Chills HENT: No: Headaches, Lightheadedness, Neck Pain Cardiovascular: No: Chest Pain or Discomfort, Palpitations Respiratory: No: Cough, Shortness of Breath Gastrointestinal: No: Nausea, Vomiting, Abdominal Pain Genitourinary: Positive: Vaginal Bleeding, No: Dysuria, Discharge Musculoskeletal: Positive: Pain (bilateral arm and lower back pain), No: Weakness, Edema Skin: No Rash, No Lesions Neurologic: No: Weakness, Dizziness, Headache Physical Exam Narrative GENERAL: Well-nourished, well-developed patient. SKIN: Focused skin assessment warm/dry. HEAD: Normocephalic. Atraumatic EYES: Slightly icteric sclera. No injection or drainage. NECK: Supple, trachea midline. No JVD or lymphadenopathy. CARDIOVASCULAR: Regular rate and rhythm without murmurs, gallops, or rubs. RESPIRATORY: Breath sounds equal bilaterally. No accessory muscle use. GASTROINTESTINAL: Abdomen soft, non-tender, nondistended. MUSCULOSKELETAL: No cyanosis, or edema. Subjective bilateral arm pain BACK: Nontender without obvious deformity. No CVA tenderness. Patient has subjective a side location pain. Not reproducible on palpation. This is her normal location. NEUROLOGICAL: Awake and alert. Cranial nerves II through XII intact. Motor grossly within normal limits. Five out of 5 muscle strength in all muscle groups. Normal speech. Data Data Last Documented VS Vital Signs Date Time Temp Pulse Resp B/P (MAP) Pulse Ox O2 Delivery O2 Flow Rate FiO2 05/07/17 10:17 16 05/07/17 08:34 95 Room Air 05/07/17 07:40 98.8 89 Orders Orders Complete Blood Count With Diff (05/07/17 07:51) Basic Metabolic Panel (Bmp) (05/07/17 07:51) Iv Access Insert/Monitor (05/07/17 07:51) Ecg Monitoring (05/07/17 07:51) Oximetry (05/07/17 07:51) Diphenhydramine Inj (Benadryl Inj) (05/07/17 08:00) Hydromorphone Pf Inj (Dilaudid Pf Inj) (05/07/17 08:00) Sodium Chlor 0.9% 1000 Ml Inj (Ns 1000 M (05/07/17 08:00) Diphenhydramine Inj (Benadryl Inj) (05/07/17 09:30) Hydromorphone Pf Inj (Dilaudid Pf Inj) (05/07/17 09:30) Sodium Chlor 0.9% 1000 Ml Inj (Ns 1000 M (05/07/17 09:30) Labs Laboratory Tests Test 05/07/17 08:30 White Blood Count 9.8 TH/MM3 Red Blood Count 2.63 MIL/MM3 Hemoglobin 7.8 GM/DL Hematocrit 22.2 % Mean Corpuscular Volume 84.5 FL Mean Corpuscular Hemoglobin 29.7 PG Mean Corpuscular Hemoglobin Concent 35.1 % Red Cell Distribution Width 21.7 % Platelet Count 347 TH/MM3 Mean Platelet Volume 8.0 FL Neutrophils (%) (Auto) 46.6 % Lymphocytes (%) (Auto) 38.0 % Monocytes (%) (Auto) 11.1 % Eosinophils (%) (Auto) 3.3 % Basophils (%) (Auto) 1.0 % Neutrophils # (Auto) 4.6 TH/MM3 Lymphocytes # (Auto) 3.7 TH/MM3 Monocytes # (Auto) 1.1 TH/MM3 Eosinophils # (Auto) 0.3 TH/MM3 Basophils # (Auto) 0.1 TH/MM3 CBC Comment AUTO DIFF Differential Total Cells Counted 100 Neutrophils % (Manual) 47 % Band Neutrophils % 1 % Lymphocytes % 38 % Monocytes % 9 % Eosinophils % 4 % Basophils % 1 % Neutrophils # (Manual) 4.7 TH/MM3 Nucleated Red Blood Cells 10 /100 WBC Differential Comment FINAL DIFF MANUAL Platelet Estimate NORMAL Platelet Morphology Comment NORMAL Polychromasia 2.7 % Sickle Cells 2+ Blood Urea Nitrogen 7 MG/DL Creatinine 0.50 MG/DL Random Glucose 95 MG/DL Calcium Level 8.4 MG/DL Sodium Level 139 MEQ/L Potassium Level 3.5 MEQ/L Chloride Level 106 MEQ/L Carbon Dioxide Level 25.6 MEQ/L Anion Gap 7 MEQ/L Estimat Glomerular Filtration Rate 172 ML/MIN MDM Medical Decision Making Medical Screen Exam Complete: Yes Emergency Medical Condition: Yes Differential Diagnosis Sickle cell disease pain episode versus pain crisis versus metabolic derangement Narrative Course 31-year-old female with history of sickle cell, who is well-known to this emerged from, presents here with complaints of pain. Patient has a hemoglobin of 7.8. It was 7.9 on the . The patient's doctor lites are within normal limits. She is afebrile. Lungs are clear to auscultation. She has no urinary symptoms. She's been given 2 doses of IVD pain medicine each with Benadryl. She's also been given 2 L of IVD fluid. She states she feels better and is ready to go home. She'll be discharged told to follow up with her space planner. Diagnosis Primary Impression: Sickle cell disease Additional Impressions: Pain syndrome, chronic Anemia Additional Instructions: Drink plenty of fluids. Return if fevers, chills, dysuria, URI symptoms. Follow up with her space planner. Disposition: 01 DISCHARGE HOME Condition: Stable Lazaro Teague MD May 07, 2017 08:28
[2017-05-07 08:34] VITALS: RESP 20; O2SAT 95
[2017-05-07 08:35] LABS: AUTOMATED NEUTROPHIL # 4.6 TH/MM3 (1.8-7.7); BASOPHIL # 0.1 TH/MM3 (0-0.2); EOSINOPHIL # 0.3 TH/MM3 (0-0.4); EOSINOPHIL % 3.3 % (0.0-4.0); HEMATOCRIT 22.2 % (35.0-46.0); HEMOGLOBIN 7.8 GM/DL (11.6-15.3); LYMPHOCYTE # 3.7 TH/MM3 (1.0-4.8); MEAN CELL VOLUME 84.5 FL (80.0-100.0); MEAN CORPUSCULAR HEMOGLOBIN 29.7 PG (27.0-34.0); MEAN CORPUSCULAR HGB CONC 35.1 % (32.0-36.0); MONO % 11.1 % (0.0-8.0); MONOCYTE # 1.1 TH/MM3 (0-0.9); NEUT % 46.6 % (16.0-70.0); PLATELET COUNT 347 TH/MM3 (150-450); RED BLOOD COUNT 2.63 MIL/MM3 (4.00-5.30); RED CELL DISTRIBUTION WIDTH 21.7 % (11.6-17.2); WHITE BLOOD COUNT 9.8 TH/MM3 (4.0-11.0)
[2017-05-07 08:59] LABS: BICARBONATE 25.6 MEQ/L (21.0-32.0); CALCIUM 8.4 MG/DL (8.5-10.1); CREATININE 0.5 MG/DL (0.50-1.00)
[2017-05-07 09:27] LABS: BANDS 1 % (0-6); BASOPHILS 1 % (0-2); CORRECTED NUCLEATED RBC 10 /100 WBC (0-0); LYMPHOCYTES 38 % (9-44); MONOCYTES 9 % (0-8); NEUTROPHIL # MANUAL DIFF 4.7 TH/MM3 (1.8-7.7); NUCLEATED RED BLOOD CELL 10 (0-0); POLYCHROMASIA 2.7 % (0.0-1.9); POLYS (SEG NEUTROPHILS) 47 % (16-70); SICKLE CELLS 2+ (NORMAL)
[2017-05-07 10:17] VITALS: RESP 16
[2017-05-07 11:57] VITALS: BP 102/62
== END 2017-05-07 12:00 | disposition home or self-care (01) ==
LOC: NEPC 07:38
DX: D57.1 Sickle-cell disease without crisis (principal)
CPT/HCPCS: 80048; 85007; 85027; 96361; 96374; 96375; 96376; 99284; J1170; J1200; J1642; J7030

== ENCOUNTER 2017-05-13 03:15 | Emergency (ER) | payer OTHER ==
[~2017-05-13] VITALS: Ht 152.4 cm; Wt 58.0 kg
[2017-05-13 03:16] VITALS: BP 128/76; PULSE 92; RESP 16; TEMP 99.2; O2SAT 95
[2017-05-13] MEDS ORDERED: SODIUM CHLOR 0.9% 1000 ML INJ 1,000 ML IV ONE ×2 (03:39→05:45)
[2017-05-13] MEDS ORDERED: SODIUM CHLORIDE 0.9% FLUSH 10 ML FLUSH IVF PRN (03:45)
[2017-05-13] MEDS ORDERED: HYDROmorphone HCL PF 2 MG/ML VIAL IV PUSH ONE ×2 (03:45→05:45)
[2017-05-13] MEDS ORDERED: ONDANSETRON HCL 4 MG/2 ML VIAL IVP ONE (03:45)
[2017-05-13] MEDS ORDERED: diphenhydrAMINE HCL 50 MG/ML VIAL IV PUSH ONE ×2 (03:45→05:45)
--- NOTE | 2017-05-13 03:49 | PD ---
HPI Chief Complaint: Sickle Cell Time Seen by Provider: 03:36 Travel History International Travel<30 days: No Contact w/Intl Traveler<30days: No Traveled to known affect area: No History of Present Illness HPI The patient is 31 year old female who presents to the [facility] emergency department with a history of pain in her chest, back, and legs that recurred yesterday. The patient reports the pain is similar to her prior sickle cell pain crises. She took a Lortab 10mg for pain last at 10 PM, however her pain continues to worsen. She has generalized weakness. She reports that she usually develops a sickle cell pain crisis when she has her menstrual cycle. She reports that her menstrual cycle started on Friday. She denies having any fevers or chills, cough or congestion. She denies having any shortness of breath. I review systems otherwise, she denies having any neck pain, abdominal pain (other than cramping with her menstrual cycle), vomiting, diarrhea, urinary symptoms, or neurologic symptoms. She reports that her hat braider is currently out of town. Her hat braider will be back in the office on and she does have an appointment scheduled for Friday. She denies having any joint swelling or erythema. LMP: Started Friday. [facility] Past Medical History Narrative Medical The patient's past medical history is significant for frequent sickle cell pain crisis, sickle cell anemia, dysmenorrhea, asthma. Hx Anticoagulant Therapy: No Anemia: Yes Arthritis: No Asthma: No Autoimmune Disease: No Blood Disorders: Yes (sickle cell disease) Anxiety: No Depression: No Heart Rhythm Problems: No Cancer: No Cardiovascular Problems: Yes High Cholesterol: No Chemotherapy: No Chest Pain: No Congestive Heart Failure: No COPD: No Diabetes: No Diminished Hearing: No Endocrine: No Gastrointestinal Disorders: Yes (GALLSTONES) GERD: No Genitourinary: No Headaches: Yes Hiatal Hernia: No Heparin Induced Thrombocytopen: No Immune Disorder: No Implanted Vascular Access Dvce: Yes (RIGHT CHEST ) Insomnia: Yes Kidney Stones: Yes Musculoskeletal: No Neurologic: No Psychiatric: No Reproductive: No Respiratory: No Immunizations Current: Yes Migraines: No Pneumonia: Yes Radiation Therapy: No Renal Failure: No Seizures: No Sickle Cell Disease: Yes Sleep Apnea: No Thyroid Disease: No Ulcer: No PNEUMOCCOCAL Vaccine (Year): 2 ?: Not LMP: 05/10/17 : 2 Para: 1 Miscarriage: 1 : 0 Tubal Ligation: Yes Past Surgical History Narrative Surgical The patient's past surgical history is significant for Rxnflp-r-Vvwt placement, cholecystectomy, 1, bilateral tubal ligation. Abdominal Surgery: Yes AICD: No Arteriovenous Shunt: No Body Medical Devices: right chest port Cardiac Surgery: No Section: Yes (X 1) Cholecystectomy: Yes Ear Surgery: No Endocrine Surgery: No Eye Surgery: No Genitourinary Surgery: No Gynecologic Surgery: Yes (tubal ligation) Hysterectomy: No Insulin Pump: No Joint Replacement: No Oral Surgery: Yes Pacemaker: No Thoracic Surgery: Yes (CHEST PORT ) Tonsillectomy: Yes Other Surgery: Yes (right chest port) Social History Alcohol Use: No Tobacco Use: No Substance Use: No Allergies-Medications (Allergen,Severity, Reaction): Coded Allergies: morphine (Verified Allergy, Severe, RASH, 05/13/17) *MDRO Multi-Drug Resistant Organism (Verified Adverse Reaction, Unknown, MRSA, 05/13/17) MRSA (blood) - 12/18/2004 MRSA PCR screen NEGATIVE 08/27/16 & 09/21/16 Cleared per Infection Control Reported Meds & Prescriptions Reported Meds & Active Scripts Active K-Vescent (Potassium Bicarbonate) 25 Meq Tab 25 Meq PO BID 7 Days Calcium Gluconate 45 Mg Calcium (500 Mg) Tab 500 Mg PO TID 30 Days 1 gram of salt is 93 mg elemental calcium. Hydrocodone-Acetaminophen 10-325 mg Tab 1 Tab PO Q6H PRN Hydrea (Hydroxyurea) 500 Mg Cap 500 Mg PO DAILY 30 Days Reported Folic Acid 0.4 Mg Tab 400 Mcg PO DAILY Review of Systems Except as stated in HPI: all other systems reviewed are Neg General / Constitutional: No: Fever Eyes: No: Visual changes HENT: No: Headaches Cardiovascular: Positive: Chest Pain or Discomfort Respiratory: No: Shortness of Breath Gastrointestinal: No: Abdominal Pain Genitourinary: No: Dysuria Musculoskeletal: Positive: Myalgias, No: Pain Skin: No Rash Neurologic: No: Weakness Psychiatric: No: Depression Endocrine: No: Polydipsia Hematologic/Lymphatic: No: Easy Bruising Physical Exam Narrative General: The patient is a well-developed well-nourished female in no acute distress. Head and Neck exam: Head is normocephalic atraumatic. Eyes: EOMI, pupils are equal round and reactive to light. Nose: Midline septum with pink mucous membranes Mouth: Dentition unremarkable. Moist mucus membranes. Posterior oropharynx is not erythematous. No tonsillar hypertrophy. Uvula midline. Airway patent. Neck: No palpable lymphadenopathy. No nuchal rigidity. No thyromegaly. Cardiovascular: She has an Wxdgjx-u-Cxvj in place in the right upper chest that appears to be in good repair. No erythema or edema overlying the Oxldbp-b-Oquw. No tenderness on palpation. Regular rate and rhythm without murmurs, gallops, or rubs. Lungs: Clear to auscultation bilaterally. No wheezes, rhonchi, or rales. Abdomen: Soft, without tenderness to palpation in all 4 quadrants of the abdomen. No guarding, rebound, or rigidity. Normal bowel sounds are audible. No tenderness on palpation of McBurney's point. Extremities: No clubbing, cyanosis, or edema. 2+ pulses in all 4 extremities. No calf tenderness on palpation. No joint erythema or edema. She has full range of motion of her extremities. Back: No spinous process tenderness to palpation. No costovertebral angle tenderness to palpation. Neurologic Exam: Grossly nonfocal. Skin Exam: No rash noted. Intact skin that is warm and dry. Data Data Last Documented VS Vital Signs Date Time Temp Pulse Resp B/P (MAP) Pulse Ox O2 Delivery O2 Flow Rate FiO2 05/13/17 04:08 16 94 Room Air 05/13/17 04:08 1.00 05/13/17 03:16 99.2 92 Orders Orders Complete Blood Count With Diff (05/13/17 03:39) Comprehensive Metabolic Panel (05/13/17 03:39) Retic Count (05/13/17 03:39) Ecg Monitoring (05/13/17 03:39) Iv Access Insert/Monitor (05/13/17 03:39) Oximetry (05/13/17 03:39) Oxygen Administration (05/13/17 03:39) Ondansetron Inj (Zofran Inj) (05/13/17 03:45) Sodium Chloride 0.9% Flush (Ns Flush) (05/13/17 03:45) Sodium Chlor 0.9% 1000 Ml Inj (Ns 1000 M (05/13/17 03:39) Diphenhydramine Inj (Benadryl Inj) (05/13/17 03:45) Hydromorphone Pf Inj (Dilaudid Pf Inj) (05/13/17 03:45) Bedside Glucose GURDEEP.CSUGAR (05/13/17 05:08) Potassium Chloride Eff (K-Lyte Cl Eff) (05/13/17 05:15) Calcium Gluconate Inj (Calcium Gluconate (05/13/17 05:15) Sodium Chlor 0.9% 1000 Ml Inj (Ns 1000 M (05/13/17 05:45) Ondansetron Inj (Zofran Inj) (05/13/17 05:45) Hydromorphone Pf Inj (Dilaudid Pf Inj) (05/13/17 05:45) Diphenhydramine Inj (Benadryl Inj) (05/13/17 05:45) Ed Discharge Order (05/13/17 05:58) Labs Laboratory Tests Test 05/13/17 04:00 White Blood Count 10.7 TH/MM3 Red Blood Count 2.76 MIL/MM3 Hemoglobin 8.5 GM/DL Hematocrit 23.3 % Mean Corpuscular Volume 84.6 FL Mean Corpuscular Hemoglobin 30.7 PG Mean Corpuscular Hemoglobin Concent 36.3 % Red Cell Distribution Width 20.9 % Platelet Count 421 TH/MM3 Mean Platelet Volume 7.7 FL Neutrophils (%) (Auto) 47.2 % Lymphocytes (%) (Auto) 38.2 % Monocytes (%) (Auto) 10.3 % Eosinophils (%) (Auto) 3.0 % Basophils (%) (Auto) 1.3 % Neutrophils # (Auto) 5.0 TH/MM3 Lymphocytes # (Auto) 4.1 TH/MM3 Monocytes # (Auto) 1.1 TH/MM3 Eosinophils # (Auto) 0.3 TH/MM3 Basophils # (Auto) 0.1 TH/MM3 CBC Comment AUTO DIFF Differential Total Cells Counted 100 Neutrophils % (Manual) 42 % Lymphocytes % 43 % Monocytes % 10 % Eosinophils % 5 % Neutrophils # (Manual) 4.5 TH/MM3 Nucleated Red Blood Cells 3 /100 WBC Differential Comment FINAL DIFF MANUAL Platelet Estimate NORMAL Platelet Morphology Comment NORMAL Polychromasia 5.3 % Sickle Cells 1+ Reticulocyte Count 7.7 % Absolute Reticulocyte Count 213.0 MIL/L Blood Urea Nitrogen 5 MG/DL Creatinine 0.31 MG/DL Random Glucose 70 MG/DL Total Protein 6.4 GM/DL Albumin 2.8 GM/DL Calcium Level 6.8 MG/DL Alkaline Phosphatase 76 U/L Aspartate Amino Transf (AST/SGOT) 50 U/L Alanine Aminotransferase (ALT/SGPT) 14 U/L Total Bilirubin 1.8 MG/DL Sodium Level 144 MEQ/L Potassium Level 2.6 MEQ/L Chloride Level 113 MEQ/L Carbon Dioxide Level 23.6 MEQ/L Anion Gap 7 MEQ/L Estimat Glomerular Filtration Rate 298 ML/MIN Protein Corrected Calcium 7.2 MG/DL MDM Medical Decision Making Medical Screen Exam Complete: Yes Emergency Medical Condition: Yes Medical Record Reviewed: Yes Differential Diagnosis Sickle cell pain crisis, versus dysmenorrhea, versus arthritis, versus drug- seeking behavior Narrative Course During the course of the patients emergency department visit, the patients history, examination, and differential diagnosis were reviewed with the patient. The patient was placed on a satellite project site monitor with oximetry and frequent blood pressure monitoring. The patient had her Wpjbdf-h-Ybcp access. The patient was initially provided normal saline 1 L IV fluid bolus, hydromorphone 1 mg IV, Zofran 4 mg IV, Benadryl 25 mg IV. The patients laboratory studies were reviewed and remarkable for a white count of 10.7, hemoglobin 8.5 which is increased compared to previously, platelets 421 with 10 monocytes, 5 eosinophils, reticulocyte count 7.7, CMP is remarkable for potassium of 2.6 which was supplemented orally with 50 mEq potassium chloride. The patient will also be discharged home with a potassium supplement. Protein corrected calcium is 7.2, BUN 5, creatinine 0.31, glucose 70, total bilirubin 1.8, AST 50, albumin 2.8. The patient was given calcium gluconate 1 g IV. The patient will be discharged home on a calcium supplement. On reexamination the patient reports feeling improved, however she continues to have some pain and is requesting an additional dose of pain reliever. The patient was given an additional dose of pain medication and nausea medication as well as Benadryl for itching. The patient reported feeling improved. The patient will be discharged home to follow-up with her hat braider. She is instructed to have her potassium rechecked in one week. Given a prescription for calcium gluconate and potassium. The patient is resting comfortably and feels better, is alert and in no distress. The patients results and examination findings were discussed with the patient. The repeat examination is unremarkable and benign. The history, exam, diagnostic testing, and current condition do not suggest any significant pathology to warrant further testing, continued ED treatment, admission, or surgical evaluation at this point. The vital signs have been stable. The patient does not have uncontrollable pain, intractable vomiting, or other significant symptoms. The patient's condition is stable and appropriate for discharge. The patient will pursue further outpatient evaluation with a primary care physician or other designated or consulting physician as indicated in the discharge instructions. The patient expressed understanding and was agreeable with this plan. Diagnosis Primary Impression: Sickle cell pain crisis Additional Impressions: Hypocalcemia Hypokalemia Referrals: Primary Care Physician 3 days Patient Instructions: General Instructions, Hypocalcemia (ED), Hypokalemia (ED) , Sickle Cell Crisis (ED) Additional Instructions: Follow-up with her hat braider to have your potassium and calcium rechecked in one week. Med/Other Pt SpecificInfo: Prescription(s) given Scripts Potassium Bicarbonate Effervescent (K-Vescent) 25 Meq Tab 25 MEQ PO BID for Electrolyte Replacement for 7 Days, #14 TAB 0 Refills Prov: Mignon Lin MD 05/13/17 Calcium Gluconate (Calcium Gluconate) 45 Mg Calcium (500 Mg) Tab 500 MG PO TID for Calcium Supplement for 30 Days, TAB 0 Refills 1 gram of salt is 93 mg elemental calcium. Prov: Mignon Lin MD 05/13/17 Disposition: 01 DISCHARGE HOME Condition: Stable Mignon Lin MD May 13, 2017 03:49
[2017-05-13 04:08] VITALS: RESP 16; O2SAT 94
[2017-05-13 04:26] LABS: BASOPHIL # 0.1 TH/MM3 (0-0.2); BASOPHIL % 1.3 % (0.0-2.0); EOSINOPHIL # 0.3 TH/MM3 (0-0.4); HEMATOCRIT 23.3 % (35.0-46.0); HEMOGLOBIN 8.5 GM/DL (11.6-15.3); LYMPH % 38.2 % (9.0-44.0); LYMPHOCYTE # 4.1 TH/MM3 (1.0-4.8); MEAN CELL VOLUME 84.6 FL (80.0-100.0); MEAN CORPUSCULAR HEMOGLOBIN 30.7 PG (27.0-34.0); MEAN PLATELET VOLUME 7.7 FL (7.0-11.0); MONO % 10.3 % (0.0-8.0); MONOCYTE # 1.1 TH/MM3 (0-0.9); NEUT % 47.2 % (16.0-70.0); PLATELET COUNT 421 TH/MM3 (150-450); RED BLOOD COUNT 2.76 MIL/MM3 (4.00-5.30); RED CELL DISTRIBUTION WIDTH 20.9 % (11.6-17.2); RETIC % 7.7 % (0.4-3.0); WHITE BLOOD COUNT 10.7 TH/MM3 (4.0-11.0)
[2017-05-13 04:47] LABS: MEAN CORPUSCULAR HGB CONC 36.3 % (32.0-36.0)
[2017-05-13 04:57] LABS: ALBUMIN 2.8 GM/DL (3.4-5.0); BICARBONATE 23.6 MEQ/L (21.0-32.0); CALCIUM 6.8 MG/DL (8.5-10.1); CREATININE 0.31 MG/DL (0.50-1.00); TOTAL BILIRUBIN ADULT 1.8 MG/DL (0.2-1.0); TOTAL PROTEIN 6.4 GM/DL (6.4-8.2)
[2017-05-13 05:03] LABS: CALCIUM-PROTEIN CORRECTED 7.2 MG/DL (8.5-10.1)
[2017-05-13] MEDS ORDERED: CALCIUM GLUCONATE INJ 1 GM in DEXTROSE 5% IN WATER 100ML INJ 100 ML IV ONE ×2 (05:15)
[2017-05-13] MEDS ORDERED: POTASSIUM CHLORIDE 25 MEQ EFFERVESCENT TAB PO ONE (05:15)
[2017-05-13 05:26] LABS: CORRECTED NUCLEATED RBC 3 /100 WBC (0-0); LYMPHOCYTES 43 % (9-44); MONOCYTES 10 % (0-8); NEUTROPHIL # MANUAL DIFF 4.5 TH/MM3 (1.8-7.7); NUCLEATED RED BLOOD CELL 3 (0-0); POLYS (SEG NEUTROPHILS) 42 % (16-70)
[2017-05-13 05:27] LABS: SICKLE CELLS 1+ (NORMAL)
[2017-05-13 05:28] LABS: POLYCHROMASIA 5.3 % (0.0-1.9)
[2017-05-13] MEDS ORDERED: ONDANSETRON HCL 4 MG/2 ML VIAL IV ONE (05:45)
[2017-05-13] MEDS ORDERED: KLORCONEF PO (05:58)
[2017-05-13] MEDS ORDERED: CALG500 PO (05:58)
== END 2017-05-13 07:02 | disposition home or self-care (01) ==
LOC: NEPE 03:15
DX: D57.00 Hb-SS disease with crisis, unspecified (principal); E83.51 Hypocalcemia; E87.6 Hypokalemia
CPT/HCPCS: 80053; 85007; 85027; 85044; 96361; 96365; 96375; 96376; 99284; J0610; J1170; J1200; J1642; J2405; J7030

== ENCOUNTER 2017-05-17 01:44 | Emergency (ER) | payer OTHER ==
[~2017-05-17] VITALS: Ht 152.4 cm; Wt 57.0 kg
[~2017-05-17 01:44] MED LIST changes: +CALG500 PO; +KLORCONEF PO
[2017-05-17 01:46] VITALS: BP 114/59; PULSE 94; RESP 16; TEMP 98.4; O2SAT 95
[2017-05-17 02:00] VITALS: O2SAT 100
[2017-05-17] MEDS ORDERED: SODIUM CHLORIDE 0.9% FLUSH 10 ML FLUSH IVF PRN (02:00)
[2017-05-17] MEDS ORDERED: SODIUM CHLOR 0.9% 1000 ML INJ 1,000 ML IV ONE (02:00)
[2017-05-17 02:27] LABS: AUTOMATED NEUTROPHIL # 6.1 TH/MM3 (1.8-7.7); BASOPHIL % 0.2 % (0.0-2.0); EOSINOPHIL # 0.3 TH/MM3 (0-0.4); EOSINOPHIL % 2.2 % (0.0-4.0); HEMATOCRIT 21.9 % (35.0-46.0); HEMOGLOBIN 7.7 GM/DL (11.6-15.3); LYMPH % 39.4 % (9.0-44.0); LYMPHOCYTE # 4.8 TH/MM3 (1.0-4.8); MEAN CELL VOLUME 85.7 FL (80.0-100.0); MEAN PLATELET VOLUME 8.2 FL (7.0-11.0); MONO % 8.1 % (0.0-8.0); NEUT % 50.1 % (16.0-70.0); PLATELET COUNT 351 TH/MM3 (150-450); RED BLOOD COUNT 2.55 MIL/MM3 (4.00-5.30); RED CELL DISTRIBUTION WIDTH 22.5 % (11.6-17.2); RETIC # 320.2 MIL/L (20.0-150.0); RETIC % 12.5 % (0.4-3.0); WHITE BLOOD COUNT 12.1 TH/MM3 (4.0-11.0)
--- NOTE | 2017-05-17 02:29 | PD ---
HPI Chief Complaint: Sickle Cell Time Seen by Provider: 01:55 Travel History International Travel<30 days: No Contact w/Intl Traveler<30days: No Traveled to known affect area: No History of Present Illness HPI Patient is a 31-year-old female who's known sickle cell disease comes to the ER often for sickle crisis she has a port for the time she has had to come in for pain crisis ..now she is here her pain crisis is similar distribution to prior crisis but it is not responding to her home pain meds by mouth meds ,,,she does not appear jaundiced she is not appeared to be in severe distress. She has not seen another MD nor heme MD for this crisis. Pain is 10/10 localized deep aching feeling lower back arms legs PFSH Past Medical History Hx Anticoagulant Therapy: No Anemia: Yes Arthritis: No Asthma: No Autoimmune Disease: No Blood Disorders: Yes (sickle cell disease) Anxiety: No Depression: No Heart Rhythm Problems: No Cancer: No Cardiovascular Problems: Yes High Cholesterol: No Chemotherapy: No Chest Pain: No Congestive Heart Failure: No COPD: No Diabetes: No Diminished Hearing: No Endocrine: No Gastrointestinal Disorders: Yes (GALLSTONES) GERD: No Genitourinary: No Headaches: Yes Hiatal Hernia: No Heparin Induced Thrombocytopen: No Immune Disorder: No Implanted Vascular Access Dvce: Yes (RIGHT CHEST ) Insomnia: Yes Kidney Stones: Yes Musculoskeletal: No Neurologic: No Psychiatric: No Reproductive: No Respiratory: No Immunizations Current: Yes Migraines: No Pneumonia: Yes Radiation Therapy: No Renal Failure: No Seizures: No Sickle Cell Disease: Yes Sleep Apnea: No Thyroid Disease: No Ulcer: No PNEUMOCCOCAL Vaccine (Year): 2 ?: Not LMP: 05/17/16 : 2 Para: 1 Miscarriage: 1 : 0 Tubal Ligation: Yes Past Surgical History Abdominal Surgery: Yes AICD: No Arteriovenous Shunt: No Body Medical Devices: right chest port Cardiac Surgery: No Section: Yes (X 1) Cholecystectomy: Yes Ear Surgery: No Endocrine Surgery: No Eye Surgery: No Genitourinary Surgery: No Gynecologic Surgery: Yes (tubal ligation) Hysterectomy: No Insulin Pump: No Joint Replacement: No Oral Surgery: Yes Pacemaker: No Thoracic Surgery: Yes (CHEST PORT ) Tonsillectomy: Yes Other Surgery: Yes (right chest port) Social History Alcohol Use: No Tobacco Use: No Substance Use: No Allergies-Medications (Allergen,Severity, Reaction): Coded Allergies: morphine (Verified Allergy, Severe, RASH, 05/20/17) *MDRO Multi-Drug Resistant Organism (Verified Adverse Reaction, Unknown, MRSA, 05/20/17) MRSA (blood) - 12/18/2004 MRSA PCR screen NEGATIVE 08/27/16 & 09/21/16 Cleared per Infection Control Reported Meds & Prescriptions Reported Meds & Active Scripts Active Hydrocodone-Acetaminophen 10-325 mg Tab 1 Tab PO Q6H PRN Hydrea (Hydroxyurea) 500 Mg Cap 500 Mg PO DAILY 30 Days Reported Folic Acid 0.4 Mg Tab 400 Mcg PO DAILY Review of Systems Except as stated in HPI: all other systems reviewed are Neg Physical Exam Narrative GENERAL: non toxic non jaundice appearing in no obvious distress SKIN: Warm and dry. HEAD: Atraumatic. Normocephalic. EYES: Pupils equal and round. No scleral icterus. No injection or drainage. ENT: No nasal bleeding or discharge. Mucous membranes pink and moist. NECK: Trachea midline. No JVD. CARDIOVASCULAR: Regular rate and rhythm. RESPIRATORY: No accessory muscle use. Clear to auscultation. Breath sounds equal bilaterally. GASTROINTESTINAL: Abdomen soft, non-tender, nondistended. Hepatic and splenic margins not palpable. MUSCULOSKELETAL: Extremities arm and leg pain reported bilateral without clubbing, cyanosis, or edema. No obvious deformities. Lower back pain NEUROLOGICAL: Awake and alert. No obvious cranial nerve deficits. Motor grossly within normal limits. Five out of 5 muscle strength in the arms and legs. Normal speech. PSYCHIATRIC: Appropriate mood and affect; insight and judgment normal. Data Data Last Documented VS Vital Signs Date Time Temp Pulse Resp B/P (MAP) Pulse Ox O2 Delivery O2 Flow Rate FiO2 05/17/17 04:30 05/17/17 02:00 100 Room Air 05/17/17 01:46 98.4 94 16 Orders Orders Complete Blood Count With Diff (05/17/17 01:55) Comprehensive Metabolic Panel (05/17/17 01:55) Retic Count (05/17/17 01:55) Chest, Pa & Lat (05/17/17 01:55) Ecg Monitoring (05/17/17 01:55) Iv Access Insert/Monitor (05/17/17 01:55) Oximetry (05/17/17 01:55) Sodium Chloride 0.9% Flush (Ns Flush) (05/17/17 02:00) Sodium Chlor 0.9% 1000 Ml Inj (Ns 1000 M (05/17/17 02:00) Hydromorphone Pf Inj (Dilaudid Pf Inj) (05/17/17 03:00) Diphenhydramine Inj (Benadryl Inj) (05/17/17 03:00) Ondansetron Inj (Zofran Inj) (05/17/17 03:00) Diphenhydramine Inj (Benadryl Inj) (05/17/17 04:30) Ed Discharge Order (05/17/17 04:27) Heparin Central Flush (Heparin Central F (05/17/17 05:15) Labs Laboratory Tests Test 05/17/17 02:05 White Blood Count 12.1 TH/MM3 Red Blood Count 2.55 MIL/MM3 Hemoglobin 7.7 GM/DL Hematocrit 21.9 % Mean Corpuscular Volume 85.7 FL Mean Corpuscular Hemoglobin 30.0 PG Mean Corpuscular Hemoglobin Concent 35.0 % Red Cell Distribution Width 22.5 % Platelet Count 351 TH/MM3 Mean Platelet Volume 8.2 FL Neutrophils (%) (Auto) 50.1 % Lymphocytes (%) (Auto) 39.4 % Monocytes (%) (Auto) 8.1 % Eosinophils (%) (Auto) 2.2 % Basophils (%) (Auto) 0.2 % Neutrophils # (Auto) 6.1 TH/MM3 Lymphocytes # (Auto) 4.8 TH/MM3 Monocytes # (Auto) 1.0 TH/MM3 Eosinophils # (Auto) 0.3 TH/MM3 Basophils # (Auto) 0.0 TH/MM3 CBC Comment AUTO DIFF Differential Total Cells Counted 100 Neutrophils % (Manual) 58 % Band Neutrophils % 1 % Lymphocytes % 31 % Monocytes % 6 % Eosinophils % 1 % Basophils % 2 % Neutrophils # (Manual) 7.3 TH/MM3 Myelocytes 1 % Nucleated Red Blood Cells 7 /100 WBC Differential Comment FINAL DIFF MANUAL Platelet Estimate NORMAL Platelet Morphology Comment NORMAL Basophilic Stippling FAINT Spherocytes OCC Sickle Cells 2+ Target Cells 1+ Fields-[place] Bodies PRESENT Reticulocyte Count 12.5 % Absolute Reticulocyte Count 320.2 MIL/L Blood Urea Nitrogen 3 MG/DL Creatinine 0.53 MG/DL Random Glucose 93 MG/DL Total Protein 7.6 GM/DL Albumin 3.4 GM/DL Calcium Level 8.4 MG/DL Alkaline Phosphatase 104 U/L Aspartate Amino Transf (AST/SGOT) 67 U/L Alanine Aminotransferase (ALT/SGPT) 18 U/L Total Bilirubin 2.4 MG/DL Sodium Level 140 MEQ/L Potassium Level 3.6 MEQ/L Chloride Level 105 MEQ/L Carbon Dioxide Level 30.3 MEQ/L Anion Gap 5 MEQ/L Estimat Glomerular Filtration Rate 161 ML/MIN MDM Medical Decision Making Medical Screen Exam Complete: Yes Emergency Medical Condition: Yes Differential Diagnosis her PAIN is in similiar areas of prior ischemic pain crisis, SCD vs crisis vs acute chest vs severe anemia . other pain med dependence Narrative Course Retic count evaluated and H and H and pt responds well to IV dialudid and benadryl, no signs symptoms of sepsis nor acute chest, no need for transfusion at this time d/c close Hemaatology follow up and home pain management Diagnosis Primary Impression: Sickle cell disease Qualified Codes: D57.00 - Hb-SS disease with crisis, unspecified Patient Instructions: General Instructions, Sickle Cell Disease (GEN) Disposition: 01 DISCHARGE HOME Condition: Good Kirk Angeles MD May 17, 2017 02:29
--- NOTE | 2017-05-17 02:34 | RADRPT ---
EXAM DATE/TIME: 05/17/2017 02:14 [place] COMPARISON: CHEST PA & LAT, March 01, 2017, 2:54. CHEST PA & LAT, April 15, 2017, 9:48. INDICATIONS : Short of breath. MEDICAL HISTORY : Sickle Cell disease. SURGICAL HISTORY : Cholecystectomy. Infuse a port. ENCOUNTER: Initial ACUITY: 1 day PAIN SCORE: 8/10 LOCATION: Bilateral chest FINDINGS: PA and lateral views of the chest. Right-sided Yfuoxw-h-Imuc remains in place. The lungs are clear. C ardiomediastinal silhouette within normal limits. No evidence of pleural effusion or pneumothorax. Ch olecystectomy clips again seen in the right upper quadrant of the abdomen. CONCLUSION: No acute cardiopulmonary disease identified. Norris Wolfe MD on May 17, 2017 at 2:29 Board Certified Radiologist. This report was verified electronically.
[2017-05-17 02:49] LABS: ALKALINE PHOSPHATASE 104 U/L (45-117); ALT (GPT) 18 U/L (10-53); TOTAL BILIRUBIN ADULT 2.4 MG/DL (0.2-1.0); TOTAL PROTEIN 7.6 GM/DL (6.4-8.2)
[2017-05-17 02:54] LABS: ALBUMIN 3.4 GM/DL (3.4-5.0); AST (GOT) 67 U/L (15-37); BICARBONATE 30.3 MEQ/L (21.0-32.0); BLOOD UREA NITROGEN 3 MG/DL (7-18); CALCIUM 8.4 MG/DL (8.5-10.1); CHLORIDE 105 MEQ/L (98-107); CREATININE 0.53 MG/DL (0.50-1.00); GLOMERULAR FILTRATION RATE 161 ML/MIN (>89); GLUCOSE,RANDOM 93 MG/DL (74-106); SODIUM (NA) 140 MEQ/L (136-145)
[2017-05-17] MEDS ORDERED: diphenhydrAMINE HCL 50 MG/ML VIAL IV PUSH ONE ×2 (03:00→04:30)
[2017-05-17] MEDS ORDERED: HYDROmorphone HCL PF 2 MG/ML VIAL IV PUSH ONE (03:00)
[2017-05-17] MEDS ORDERED: ONDANSETRON HCL 4 MG/2 ML VIAL IV PUSH ONE (03:00)
[2017-05-17 03:23] LABS: BANDS 1 % (0-6); BASOPHILS 2 % (0-2); CORRECTED NUCLEATED RBC 7 /100 WBC (0-0); LYMPHOCYTES 31 % (9-44); MONOCYTES 6 % (0-8); MYELOCYTES 1 % (0-0); NEUTROPHIL # MANUAL DIFF 7.3 TH/MM3 (1.8-7.7); NUCLEATED RED BLOOD CELL 7 (0-0); POLYS (SEG NEUTROPHILS) 58 % (16-70)
[2017-05-17 03:24] LABS: HOWELL-JOLLY BODIES PRESENT (NONE SEEN)
[2017-05-17 03:26] LABS: TARGET CELLS 1+ (NORMAL)
[2017-05-17 03:27] LABS: SICKLE CELLS 2+ (NORMAL)
[2017-05-17 03:28] LABS: SPHEROCYTES OCC (NORMAL)
== END 2017-05-17 05:21 | disposition home or self-care (01) ==
LOC: NEPE 01:44
DX: D57.1 Sickle-cell disease without crisis (principal); D64.9 Anemia, unspecified; G47.00 Insomnia, unspecified; Z87.442 Personal history of urinary calculi; Z79.899 Other long term (current) drug therapy; Z88.5 Allergy status to narcotic agent
CPT/HCPCS: 71046; 80053; 85007; 85027; 85044; 96361; 96374; 96375; 99284; J1170; J1200; J1642; J2405; J7030

== ENCOUNTER 2017-05-19 07:42 | Emergency (ER) | payer OTHER ==
[~2017-05-19] VITALS: Ht 152.4 cm; Wt 57.0 kg
[2017-05-19 07:44] VITALS: BP 111/59; PULSE 101; RESP 16; TEMP 100.1; O2SAT 99
[2017-05-19] MEDS ORDERED: SODIUM CHLOR 0.9% 1000 ML INJ 400 ML IV ONE (07:48)
[2017-05-19] MEDS ORDERED: SODIUM CHLOR 0.9% 1000 ML INJ 1,000 ML IV ONE ×2 (07:48)
--- NOTE | 2017-05-19 07:48 | PD ---
HPI Chief Complaint: Sickle Cell Time Seen by Provider: 07:48 Travel History International Travel<30 days: No Contact w/Intl Traveler<30days: No Traveled to known affect area: No History of Present Illness HPI 31-year-old female came to the emergency room with history of sickle cell pain. Patient is extremely well-known to the department. She is already been 3-4 times in the ER in past 8 days. Each time the reason for the visit is sickle cell pain. However this time in triage she had a temperature of 100.1. Patient is unaware of the fever and says she has not been coughing or vomiting or any other symptoms. Her symptoms that she is complaining of is no different than her symptoms that she usually comes with. She says the pain is generalized including her chest. PFSH Past Medical History Narrative Medical List of her past medical, surgical, social and family history is reviewed from the nursing note. Hx Anticoagulant Therapy: No Anemia: Yes Arthritis: No Asthma: No Autoimmune Disease: No Blood Disorders: Yes (sickle cell disease) Anxiety: No Depression: No Heart Rhythm Problems: No Cancer: No Cardiovascular Problems: Yes High Cholesterol: No Chemotherapy: No Chest Pain: No Congestive Heart Failure: No COPD: No Diabetes: No Diminished Hearing: No Endocrine: No Gastrointestinal Disorders: Yes (GALLSTONES) GERD: No Genitourinary: No Headaches: Yes Hiatal Hernia: No Heparin Induced Thrombocytopen: No Immune Disorder: No Implanted Vascular Access Dvce: Yes (RIGHT CHEST ) Insomnia: Yes Kidney Stones: Yes Musculoskeletal: No Neurologic: No Psychiatric: No Reproductive: No Respiratory: No Immunizations Current: Yes Migraines: No Pneumonia: Yes Radiation Therapy: No Renal Failure: No Seizures: No Sickle Cell Disease: Yes Sleep Apnea: No Thyroid Disease: No Ulcer: No PNEUMOCCOCAL Vaccine (Year): 2 : 2 Para: 1 Miscarriage: 1 : 0 Tubal Ligation: Yes Past Surgical History Abdominal Surgery: Yes AICD: No Arteriovenous Shunt: No Body Medical Devices: right chest port Cardiac Surgery: No Section: Yes (X 1) Cholecystectomy: Yes Ear Surgery: No Endocrine Surgery: No Eye Surgery: No Genitourinary Surgery: No Gynecologic Surgery: Yes (tubal ligation) Hysterectomy: No Insulin Pump: No Joint Replacement: No Oral Surgery: Yes Pacemaker: No Thoracic Surgery: Yes (CHEST PORT ) Tonsillectomy: Yes Other Surgery: Yes (right chest port) Social History Alcohol Use: No Tobacco Use: No Substance Use: No Allergies-Medications (Allergen,Severity, Reaction): Coded Allergies: morphine (Verified Allergy, Severe, RASH, 05/20/17) *MDRO Multi-Drug Resistant Organism (Verified Adverse Reaction, Unknown, MRSA, 05/20/17) MRSA (blood) - 12/18/2004 MRSA PCR screen NEGATIVE 08/27/16 & 09/21/16 Cleared per Infection Control Comments List of her allergies reviewed from the nursing note. Reported Meds & Prescriptions Reported Meds & Active Scripts Active Hydrocodone-Acetaminophen 10-325 mg Tab 1 Tab PO Q6H PRN Hydrea (Hydroxyurea) 500 Mg Cap 500 Mg PO DAILY 30 Days Reported Folic Acid 0.4 Mg Tab 400 Mcg PO DAILY Narrative Medication List of her home medications reviewed from the nursing note. Review of Systems Except as stated in HPI: all other systems reviewed are Neg Physical Exam Narrative GENERAL: Awake, alert, no obvious distress SKIN: Focused skin assessment warm/dry. HEAD: Atraumatic. Normocephalic. EYES: Pupils equal and round. No scleral icterus. No injection or drainage. ENT: No nasal bleeding or discharge. Mucous membranes pink and moist. NECK: Trachea midline. No JVD. CARDIOVASCULAR: Regular rate and rhythm. No murmur appreciated. RESPIRATORY: No accessory muscle use. Clear to auscultation. Breath sounds equal bilaterally. GASTROINTESTINAL: Abdomen soft, non-tender, nondistended. Hepatic and splenic margins not palpable. MUSCULOSKELETAL: No obvious deformities. No clubbing. No cyanosis. No edema. NEUROLOGICAL: Awake and alert. No obvious cranial nerve deficits. Motor grossly within normal limits. Normal speech. PSYCHIATRIC: Appropriate mood and affect; insight and judgment normal. Data Data Last Documented VS Vital Signs Date Time Temp Pulse Resp B/P (MAP) Pulse Ox O2 Delivery O2 Flow Rate FiO2 05/19/17 09:17 05/19/17 08:10 99.0 05/19/17 08:03 Room Air 05/19/17 07:44 101 16 99 Orders Orders Sepsis Workup Initiated (05/19/17 ) Complete Blood Count With Diff (05/19/17 07:48) Comprehensive Metabolic Panel (05/19/17 07:48) Lactic Acid Sepsis Protocol (05/19/17 07:48) Influenzae A/B Antigen (05/19/17 07:48) Blood Culture (05/19/17 07:48) Chest, Single Ap (05/19/17 07:48) Blood Glucose (05/19/17 07:48) Ecg Monitoring (05/19/17 07:48) Iv Access Insert/Monitor (05/19/17 07:48) Oximetry (05/19/17 07:48) Oxygen Administration (05/19/17 07:48) Sodium Chlor 0.9% 1000 Ml Inj (Ns 1000 M (05/19/17 07:48) Sodium Chlor 0.9% 1000 Ml Inj (Ns 1000 M (05/19/17 07:48) Sodium Chlor 0.9% 1000 Ml Inj (Ns 1000 M (05/19/17 07:48) Blood Product Administration (05/19/17 08:50) Sodium Chlor 0.9% 250 Ml Inj (Ns 250 Ml (05/19/17 09:00) Hydromorphone Pf Inj (Dilaudid Pf Inj) (05/19/17 09:00) Diphenhydramine (Benadryl) (05/19/17 09:00) Labs Laboratory Tests Test 05/19/17 08:20 White Blood Count 14.3 TH/MM3 Red Blood Count 2.17 MIL/MM3 Hemoglobin 6.8 GM/DL Hematocrit 19.3 % Mean Corpuscular Volume 89.3 FL Mean Corpuscular Hemoglobin 31.5 PG Mean Corpuscular Hemoglobin Concent 35.3 % Red Cell Distribution Width 22.6 % Platelet Count 279 TH/MM3 Mean Platelet Volume 8.4 FL Neutrophils (%) (Auto) 45.5 % Lymphocytes (%) (Auto) 40.8 % Monocytes (%) (Auto) 11.9 % Eosinophils (%) (Auto) 1.3 % Basophils (%) (Auto) 0.5 % Neutrophils # (Auto) 6.5 TH/MM3 Lymphocytes # (Auto) 5.8 TH/MM3 Monocytes # (Auto) 1.7 TH/MM3 Eosinophils # (Auto) 0.2 TH/MM3 Basophils # (Auto) 0.1 TH/MM3 CBC Comment AUTO DIFF Differential Total Cells Counted 100 Neutrophils % (Manual) 38 % Lymphocytes % 47 % Monocytes % 10 % Eosinophils % 2 % Basophils % 1 % Neutrophils # (Manual) 5.7 TH/MM3 Myelocytes 2 % Nucleated Red Blood Cells 9 /100 WBC Differential Comment FINAL DIFF MANUAL Platelet Estimate NORMAL Platelet Morphology Comment NORMAL Polychromasia 2.6 % Sickle Cells 2+ [place] Bodies PRESENT Keratocytes OCC Red Cell Morphology Comment Blood Urea Nitrogen 6 MG/DL Creatinine 0.55 MG/DL Random Glucose 92 MG/DL Total Protein 7.5 GM/DL Albumin 3.3 GM/DL Calcium Level 8.3 MG/DL Alkaline Phosphatase 103 U/L Aspartate Amino Transf (AST/SGOT) 77 U/L Alanine Aminotransferase (ALT/SGPT) 16 U/L Total Bilirubin 3.5 MG/DL Sodium Level 136 MEQ/L Potassium Level 3.4 MEQ/L Chloride Level 101 MEQ/L Carbon Dioxide Level 28.0 MEQ/L Anion Gap 7 MEQ/L Estimat Glomerular Filtration Rate 154 ML/MIN Lactic Acid Level 0.8 mmol/L MDM Medical Decision Making Medical Screen Exam Complete: Yes Emergency Medical Condition: Yes Medical Record Reviewed: Yes Differential Diagnosis Chronic pain, sickle cell disease Narrative Course 9:27 AM patient had not consented for treatment and wanted to see what treatment she would receive before she could get the consent. She consented verbally for blood test. CBC came back with low H&H which indicated transfusion. I let her know that I would prefer her to be admitted and get the 2 units of blood transfusion and further workup for the fever. She wanted to go home since she could not get anybody to take care of her baby at home. She is in full capacity to make decisions for herself. She understands the risks of leaving without getting treatment. She signed AMA. Procedures EKG Prior to Arrival: No Diagnosis Primary Impression: Sickle cell disease Qualified Codes: D57.00 - Hb-SS disease with crisis, unspecified Additional Impressions: Pain syndrome, chronic Symptomatic anemia Disposition: AGAINST MEDICAL ADVICE Condition: Serious Iesha Lynn MD May 19, 2017 07:48
--- NOTE | 2017-05-19 08:06 | RADRPT ---
EXAM DATE/TIME: 05/19/2017 07:52 [facility] COMPARISON: CHEST PA & LAT, May 17, 2017, 2:14. INDICATIONS : Fever. Chest pain. MEDICAL HISTORY : Sickle Cell disease. SURGICAL HISTORY : Cholecystectomy. Infuse a port. ENCOUNTER: Subsequent ACUITY: 2 days PAIN SCORE: 3/10 LOCATION: Bilateral chest FINDINGS: A single view of the chest demonstrates diminished lung volumes without evidence of mass, infiltrate or effusion. The cardiomediastinal contours are unremarkable. Right-sided Rzwoez-p-Gehd catheter is unchanged. Osseous structures are intact. CONCLUSION: No acute disease. Zeke Griffith MD on May 19, 2017 at 8:04 Board Certified Radiologist. This report was verified electronically.
[2017-05-19 08:10] VITALS: TEMP 99
[2017-05-19 08:38] LABS: AUTOMATED NEUTROPHIL # 6.5 TH/MM3 (1.8-7.7); BASOPHIL # 0.1 TH/MM3 (0-0.2); BASOPHIL % 0.5 % (0.0-2.0); EOSINOPHIL # 0.2 TH/MM3 (0-0.4); EOSINOPHIL % 1.3 % (0.0-4.0); LYMPH % 40.8 % (9.0-44.0); LYMPHOCYTE # 5.8 TH/MM3 (1.0-4.8); MEAN CELL VOLUME 89.3 FL (80.0-100.0); MEAN CORPUSCULAR HEMOGLOBIN 31.5 PG (27.0-34.0); MEAN CORPUSCULAR HGB CONC 35.3 % (32.0-36.0); MEAN PLATELET VOLUME 8.4 FL (7.0-11.0); MONO % 11.9 % (0.0-8.0); MONOCYTE # 1.7 TH/MM3 (0-0.9); NEUT % 45.5 % (16.0-70.0); PLATELET COUNT 279 TH/MM3 (150-450); RED BLOOD COUNT 2.17 MIL/MM3 (4.00-5.30); RED CELL DISTRIBUTION WIDTH 22.6 % (11.6-17.2); WHITE BLOOD COUNT 14.3 TH/MM3 (4.0-11.0)
[2017-05-19 08:46] LABS: HEMATOCRIT 19.3 % (35.0-46.0); HEMOGLOBIN 6.8 GM/DL (11.6-15.3)
[2017-05-19 08:50] LABS: ALT (GPT) 16 U/L (10-53)
[2017-05-19 08:52] LABS: ALKALINE PHOSPHATASE 103 U/L (45-117); TOTAL BILIRUBIN ADULT 3.5 MG/DL (0.2-1.0); TOTAL PROTEIN 7.5 GM/DL (6.4-8.2)
[2017-05-19 08:53] LABS: ALBUMIN 3.3 GM/DL (3.4-5.0); AST (GOT) 77 U/L (15-37); BLOOD UREA NITROGEN 6 MG/DL (7-18); CALCIUM 8.3 MG/DL (8.5-10.1); CHLORIDE 101 MEQ/L (98-107); CREATININE 0.55 MG/DL (0.50-1.00); GLOMERULAR FILTRATION RATE 154 ML/MIN (>89); GLUCOSE,RANDOM 92 MG/DL (74-106); SODIUM (NA) 136 MEQ/L (136-145)
[2017-05-19] MEDS ORDERED: diphenhydrAMINE HCL 25 MG CAP PO ONE (09:00)
[2017-05-19] MEDS ORDERED: SODIUM CHLOR 0.9% 250 ML INJ 250 ML IV ONE (09:00)
[2017-05-19] MEDS ORDERED: HYDROmorphone HCL PF 2 MG/ML VIAL IV PUSH ONE (09:00)
[2017-05-19 09:30] LABS: BASOPHILS 1 % (0-2); CORRECTED NUCLEATED RBC 9 /100 WBC (0-0); LYMPHOCYTES 47 % (9-44); MONOCYTES 10 % (0-8); MYELOCYTES 2 % (0-0); NEUTROPHIL # MANUAL DIFF 5.7 TH/MM3 (1.8-7.7); NUCLEATED RED BLOOD CELL 9 (0-0); POLYS (SEG NEUTROPHILS) 38 % (16-70)
[2017-05-19 09:31] LABS: HOWELL-JOLLY BODIES PRESENT (NONE SEEN); POLYCHROMASIA 2.6 % (0.0-1.9)
[2017-05-19 09:32] LABS: KERATOCYTES OCC (NORMAL); SICKLE CELLS 2+ (NORMAL)
== END 2017-05-19 09:17 | disposition left against medical advice (07) ==
LOC: NEPE 07:42
DX: D57.1 Sickle-cell disease without crisis (principal); G89.29 Other chronic pain; R07.9 Chest pain, unspecified; K80.80 Other cholelithiasis without obstruction; G47.00 Insomnia, unspecified; Z87.442 Personal history of urinary calculi; Z79.899 Other long term (current) drug therapy; Z88.5 Allergy status to narcotic agent
CPT/HCPCS: 71045; 80053; 83605; 85007; 85027; 87040; 87804; 99285; J7030

== ENCOUNTER 2017-05-20 03:14 | Emergency (ER) | payer OTHER ==
[~2017-05-20] VITALS: Ht 152.4 cm; Wt 55.0 kg
[~2017-05-20 03:14] MED LIST changes: -CALG500 PO; -KLORCONEF PO
[2017-05-20 03:15] VITALS: BP 112/54; PULSE 101; RESP 16; TEMP 100.3; O2SAT 99
--- NOTE | 2017-05-20 03:55 | PD ---
HPI Chief Complaint: Sickle Cell Time Seen by Provider: 03:48 Travel History International Travel<30 days: No Contact w/Intl Traveler<30days: No Traveled to known affect area: No History of Present Illness HPI Patient is a 31-year-old female well-known to me in the department for repeated admissions and presentations for sickle cell anemia with crisis. The patient was actually seen here less than 24 hours ago, she was seen by a colleague of [facility] who noted that she had a hemoglobin of 6.8 and also had a temperature of 100.0. She returns today stating that she couldn't be admitted before but is ready to be admitted now. Patient states nothing is changed is the last time she was here, she states she did not even receive a dose of pain medication on her last admission. Per the previous provider's documentation the patient had inquired about her treatment regimen before she would be admitted to the hospital and ultimately left AGAINST MEDICAL ADVICE yesterday morning. Patient states she still having lower extremity pain and intermittent chest discomfort. States she's also been having some chills but denies any cough or congestion. Denies any nausea vomiting abdominal pain vaginal bleeding or vaginal discharge. PFSH Past Medical History Hx Anticoagulant Therapy: No Anemia: Yes Arthritis: No Asthma: No Autoimmune Disease: No Blood Disorders: Yes (sickle cell disease) Anxiety: No Depression: No Heart Rhythm Problems: No Cancer: No Cardiovascular Problems: No High Cholesterol: No Chemotherapy: No Chest Pain: No Congestive Heart Failure: No COPD: No Cerebrovascular Accident: No Diabetes: No Diminished Hearing: No Endocrine: No Gastrointestinal Disorders: Yes (GALLSTONES) GERD: No Genitourinary: No Headaches: Yes Hiatal Hernia: No Heparin Induced Thrombocytopen: No Immune Disorder: No Implanted Vascular Access Dvce: Yes (RIGHT CHEST ) Insomnia: Yes Kidney Stones: Yes Musculoskeletal: No Neurologic: No Psychiatric: No Reproductive: No Respiratory: No Immunizations Current: Yes Migraines: No Pneumonia: Yes Radiation Therapy: No Renal Failure: No Seizures: No Sickle Cell Disease: Yes Sleep Apnea: No Thyroid Disease: No Ulcer: No Tetanus Vaccination: < 5 Years Influenza Vaccination: No PNEUMOCCOCAL Vaccine (Year): 2 ?: Not LMP: 05/18/2017 : 2 Para: 1 Miscarriage: 1 : 0 Tubal Ligation: Yes Past Surgical History Abdominal Surgery: Yes AICD: No Arteriovenous Shunt: No Body Medical Devices: right chest port Cardiac Surgery: No Section: Yes (X 1) Cholecystectomy: Yes Ear Surgery: No Endocrine Surgery: No Eye Surgery: No Genitourinary Surgery: No Gynecologic Surgery: Yes (tubal ligation) Hysterectomy: No Insulin Pump: No Joint Replacement: No Oral Surgery: Yes Pacemaker: No Thoracic Surgery: Yes (CHEST PORT ) Tonsillectomy: Yes Other Surgery: Yes (right chest port) Social History Alcohol Use: No Tobacco Use: No Substance Use: No Allergies-Medications (Allergen,Severity, Reaction): Coded Allergies: morphine (Verified Allergy, Severe, RASH, 05/20/17) *MDRO Multi-Drug Resistant Organism (Verified Adverse Reaction, Unknown, MRSA, 05/20/17) MRSA (blood) - 12/18/2004 MRSA PCR screen NEGATIVE 08/27/16 & 09/21/16 Cleared per Infection Control Reported Meds & Prescriptions Reported Meds & Active Scripts Active Hydrocodone-Acetaminophen 10-325 mg Tab 1 Tab PO Q6H PRN Hydrea (Hydroxyurea) 500 Mg Cap 500 Mg PO DAILY 30 Days Reported Folic Acid 0.4 Mg Tab 400 Mcg PO DAILY Review of Systems Except as stated in HPI: all other systems reviewed are Neg Physical Exam Narrative GENERAL: Well-developed well-nourished, sitting in a stretcher appears quite comfortable and in no obvious distress. SKIN: Focused skin assessment warm/dry. HEAD: Atraumatic. Normocephalic. EYES: Pupils equal and round. Positive scleral icterus. No injection or drainage. ENT: No nasal bleeding or discharge. Mucous membranes pink and moist. NECK: Trachea midline. No JVD. CARDIOVASCULAR: Regular rate and rhythm. No murmur appreciated. No murmurs gallops or rubs, 2+ bilateral equal pulses in all 4 extremities. RESPIRATORY: No accessory muscle use. Clear to auscultation. Breath sounds equal bilaterally. GASTROINTESTINAL: Abdomen soft, non-tender, nondistended. Hepatic and splenic margins not palpable. MUSCULOSKELETAL: No obvious deformities. No clubbing. No cyanosis. No edema. NEUROLOGICAL: Awake and alert. No obvious cranial nerve deficits. Motor grossly within normal limits. Normal speech. PSYCHIATRIC: Appropriate mood and affect; insight and judgment normal. Data Data Last Documented VS Vital Signs Date Time Temp Pulse Resp B/P (MAP) Pulse Ox O2 Delivery O2 Flow Rate FiO2 05/20/17 03:15 100.3 101 16 112/54 (73) 99 Room Air MDM Medical Decision Making Medical Screen Exam Complete: Yes Emergency Medical Condition: Yes Differential Diagnosis Sickle cell anemia with crisis, anemia requiring transfusion, fever, pneumonia, influenza. Narrative Course Patient presented to emergency department and was requesting admission per prior documentation she was anemic and febrile. She is just shy febrile at 100.3 here in the emergency department. She appears quite comfortable in no obvious distress. She states she never got a dose of Dilaudid even though one was ordered for her. At this point is comfortable as she appears I recommended by mouth opiates Toradol normal saline and blood transfusion as well as admission to the hospital and workup. Patient was quite upset that she would not be giving any IV Dilaudid. I discussed with her that at this point she appears comfortable and I would only treat her with by mouth until the hospitalist assumed care. At this time she was informed that given her febrile illness and her immune compromise she could get sicker. The patient was not listening to counseling and expressed her desire to leave. There is no indication to hold her against her will. An AMA paper was printed for her but she left prior to signing it. Patient was seen by me ambulating from the emergency department in no obvious distress. Diagnosis Primary Impression: Sickle cell pain crisis Disposition: 07 AGAINST MEDICAL ADVICE Condition: Stable Pritesh Deng MD May 20, 2017 03:55
== END 2017-05-20 03:50 | disposition left against medical advice (07) ==
LOC: NEPE 03:14
DX: D57.00 Hb-SS disease with crisis, unspecified (principal)
CPT/HCPCS: 99281

== ENCOUNTER 2017-05-22 06:13 | Inpatient (IN) | payer OTHER ==
[~2017-05-22] VITALS: Ht 152.4 cm; Wt 57.0 kg
[~2017-05-22 06:13] MED LIST changes: +CALG500 PO; +KLORCONEF PO
[2017-05-22 06:14] VITALS: BP 113/63; PULSE 102; RESP 16; TEMP 99.9; O2SAT 95
[2017-05-22] MEDS ORDERED: SODIUM CHLOR 0.9% 1000 ML INJ 1,000 ML IV SCH (06:45)
--- NOTE | 2017-05-22 06:57 | PD ---
HPI Chief Complaint: Cold / Flu Symptoms Time Seen by Provider: 06:25 Travel History International Travel<30 days: No Contact w/Intl Traveler<30days: No Traveled to known affect area: No History of Present Illness HPI 31-year-old female complains of left mid back pain and fever. Patient states that the fever started about 3 days ago. Patient denies earache sore throat coughing congestion. Patient denies chest pain or shortness of breath. Patient denies abdominal pain. Patient denies any nausea vomiting diarrhea. Patient complained of left flank pain and left mid back pain. 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 Patient was seen in emergency room 3 days ago and again 2 days ago. Patient was advised to be admitted for workup of fever and anemia. Patient refuses admission and left AMA both times. Patient states that she was seen at [facility] since then. Patient states that she was given pain medication and discharge. Patient states that she still has low-grade fever at home. Patient denies any dysuria or frequency. Patient denies any vaginal discharge or bleeding. PFSH Past Medical History Hx Anticoagulant Therapy: No Anemia: Yes Arthritis: No Asthma: No Autoimmune Disease: No Blood Disorders: Yes (sickle cell disease) Anxiety: No Depression: No Heart Rhythm Problems: No Cancer: No Cardiovascular Problems: No High Cholesterol: No Chemotherapy: No Chest Pain: No Congestive Heart Failure: No COPD: No Cerebrovascular Accident: No Diabetes: No Diminished Hearing: No Endocrine: No Gastrointestinal Disorders: Yes (GALLSTONES) GERD: No Genitourinary: No Headaches: Yes Hiatal Hernia: No Heparin Induced Thrombocytopen: No Immune Disorder: No Implanted Vascular Access Dvce: Yes (RIGHT CHEST ) Insomnia: Yes Kidney Stones: Yes Musculoskeletal: No Neurologic: No Psychiatric: No Reproductive: No Respiratory: No Immunizations Current: Yes Migraines: No Pneumonia: Yes Radiation Therapy: No Renal Failure: No Seizures: No Sickle Cell Disease: Yes Sleep Apnea: No Thyroid Disease: No Ulcer: No PNEUMOCCOCAL Vaccine (Year): 2 ?: Not : 2 Para: 1 Miscarriage: 1 : 0 Tubal Ligation: Yes Past Surgical History Abdominal Surgery: Yes AICD: No Arteriovenous Shunt: No Body Medical Devices: right chest port Cardiac Surgery: No Section: Yes (X 1) Cholecystectomy: Yes Ear Surgery: No Endocrine Surgery: No Eye Surgery: No Genitourinary Surgery: No Gynecologic Surgery: Yes (tubal ligation) Hysterectomy: No Insulin Pump: No Joint Replacement: No Oral Surgery: Yes Pacemaker: No Thoracic Surgery: Yes (CHEST PORT ) Tonsillectomy: Yes Other Surgery: Yes (right chest port) Social History Alcohol Use: No Tobacco Use: No Substance Use: No Allergies-Medications (Allergen,Severity, Reaction): Coded Allergies: morphine (Verified Allergy, Severe, RASH, 05/22/17) *MDRO Multi-Drug Resistant Organism (Verified Adverse Reaction, Unknown, MRSA, 05/22/17) MRSA (blood) - 12/18/2004 MRSA PCR screen NEGATIVE 08/27/16 & 09/21/16 Cleared per Infection Control Reported Meds & Prescriptions Reported Meds & Active Scripts Active Hydrocodone-Acetaminophen 10-325 mg Tab 1 Tab PO Q6H PRN Hydrea (Hydroxyurea) 500 Mg Cap 500 Mg PO DAILY 30 Days Reported Folic Acid 0.4 Mg Tab 400 Mcg PO DAILY Review of Systems General / Constitutional: Positive: Fever Eyes: No: Visual changes HENT: No: Headaches Cardiovascular: No: Chest Pain or Discomfort Respiratory: No: Shortness of Breath Gastrointestinal: No: Abdominal Pain Genitourinary: No: Dysuria Musculoskeletal: No: Pain Skin: No Rash Neurologic: No: Weakness Psychiatric: No: Depression Endocrine: No: Polydipsia Hematologic/Lymphatic: No: Easy Bruising Physical Exam Narrative GENERAL: Well-nourished, well-developed patient. SKIN: Focused skin assessment warm/dry. HEAD: Normocephalic. EYES: No scleral icterus. No injection or drainage. NECK: Supple, trachea midline. No JVD or lymphadenopathy. CARDIOVASCULAR: Regular rate and rhythm without murmurs, gallops, or rubs. RESPIRATORY: Breath sounds equal bilaterally. No accessory muscle use. GASTROINTESTINAL: Abdomen soft, non-tender, nondistended. MUSCULOSKELETAL: No cyanosis, or edema. BACK: Nontender without obvious deformity. No CVA tenderness. Neurologic exam normal. Data Data Last Documented VS Vital Signs Date Time Temp Pulse Resp B/P (MAP) Pulse Ox O2 Delivery O2 Flow Rate FiO2 05/22/17 06:14 99.9 102 16 113/63 (80) 95 Room Air Orders Orders Complete Blood Count With Diff (05/22/17 06:44) Comprehensive Metabolic Panel (05/22/17 06:44) Blood Culture (05/22/17 06:44) C-Reactive Protein (Crp) (05/22/17 06:44) Urinalysis - C+S If Indicated (05/22/17 06:44) W[place]gren Sedimentation Rate (05/22/17 06:44) Chest, Single Ap (05/22/17 06:44) Iv Access Insert/Monitor (05/22/17 06:44) Ecg Monitoring (05/22/17 06:44) Oximetry (05/22/17 06:44) Sodium Chlor 0.9% 1000 Ml Inj (Ns 1000 M (05/22/17 06:45) Lactic Acid (05/22/17 06:44) MDM Medical Decision Making Medical Screen Exam Complete: Yes Emergency Medical Condition: Yes Differential Diagnosis Differential diagnosis: Viral syndrome, pneumonia, UTI, sepsis, anemia, sickle cell crisis. Narrative Course 31-year-old female with left flank pain and fever. History of sickle cell disease with frequent sickle cell pain crisis. Patient has fever for the past 3 days and anemic. Brent Gonsalves MD May 22, 2017 06:57
[2017-05-22 07:10] LABS: MEAN CELL VOLUME 93.5 FL (80.0-100.0); MEAN CORPUSCULAR HEMOGLOBIN 31.2 PG (27.0-34.0); MEAN CORPUSCULAR HGB CONC 33.3 % (32.0-36.0); MEAN PLATELET VOLUME 8.7 FL (7.0-11.0); PLATELET COUNT 253 TH/MM3 (150-450); WHITE BLOOD COUNT 12.6 TH/MM3 (4.0-11.0)
--- NOTE | 2017-05-22 07:10 | RADRPT ---
EXAM DATE/TIME: 05/22/2017 06:52 [facility] COMPARISON: CHEST SINGLE AP, May 19, 2017, 7:52. INDICATIONS : Fever. MEDICAL HISTORY : Sickle Cell disease. SURGICAL HISTORY : Cholecystectomy. Infusaport. ENCOUNTER: Initial ACUITY: 3 days PAIN SCORE: 0/10 LOCATION: Bilateral chest FINDINGS: Portable AP view of the chest demonstrates cardiac silhouette size at the upper limits for normal. Ri ght chest wall Mlleae-s-Wwqu is present with distal tip in the SVC. Lungs are underinflated with mild bibasilar opacity. No pleural effusion or pneumothorax is visualized. The bones and soft tissues dem onstrate no acute finding. Cholecystectomy clips are present. CONCLUSION: 1. Underinflation with bibasilar opacity which could represent atelectasis or an interstitial lung pr ocess. 2. Cardiac silhouette size is at the upper limits for normal. Michael Ellsworth MD on May 22, 2017 at 7:07 Board Certified Radiologist. This report was verified electronically.
[2017-05-22 07:32] LABS: HEMOGLOBIN 5.6 GM/DL (11.6-15.3)
[2017-05-22 07:33] LABS: HEMATOCRIT 16.8 % (35.0-46.0)
[2017-05-22 07:41] LABS: ALKALINE PHOSPHATASE 117 U/L (45-117)
[2017-05-22 07:43] LABS: ALBUMIN 3.4 GM/DL (3.4-5.0); ALT (GPT) 24 U/L (10-53); AST (GOT) 96 U/L (15-37); BICARBONATE 25.7 MEQ/L (21.0-32.0); BLOOD UREA NITROGEN 4 MG/DL (7-18); C-REACTIVE PROTEIN 2.53 MG/DL (0.00-0.30); CALCIUM 8.2 MG/DL (8.5-10.1); CHLORIDE 104 MEQ/L (98-107); CREATININE 0.52 MG/DL (0.50-1.00); GLOMERULAR FILTRATION RATE 164 ML/MIN (>89); GLUCOSE,RANDOM 129 MG/DL (74-106); SODIUM (NA) 138 MEQ/L (136-145)
[2017-05-22] MEDS ORDERED: SODIUM CHLOR 0.9% 250 ML INJ 250 ML IV ONE (07:45)
[2017-05-22 08:12] VITALS: RESP 18; O2SAT 99
--- NOTE | 2017-05-22 08:20 | PD ---
Physical Exam Date Seen by Provider: May 22, 2017 Time Seen by Provider: 08:17 Narrative 31-year-old female came to the emergency room for body wide pain. Patient is well-known to this department for her chronic pain mostly related to her sickle cell disease. She was actually seen by me 3 days ago for something similar at which point her blood test was suggestive of anemia. She was recommended to stay and get blood transfusion but patient left and signed AMA. She came back early this morning and was seen by the previous ER physician. Please refer to his history and physical for further details. Sign out was to follow-up on her blood test results. Her hemoglobin was called and is critical and was 5.6. I went and discussed this with her and she is willing to stay this time. I've ordered 2 units of blood transfusion. Due to critical shortage of inpatient beds in the hospital here the decision was to transfer her to the [facility] in [place]. She would be a good candidate for her and patient care there. I've a disarray to the patient and she was okay with it. Patient will go in the ambulance. Data Data Last Documented VS Vital Signs Date Time Temp Pulse Resp B/P (MAP) Pulse Ox O2 Delivery O2 Flow Rate FiO2 05/22/17 08:12 18 99 Room Air 05/22/17 06:14 99.9 102 Orders Orders Complete Blood Count With Diff (05/22/17 06:44) Comprehensive Metabolic Panel (05/22/17 06:44) Blood Culture (05/22/17 06:44) C-Reactive Protein (Crp) (05/22/17 06:44) Urinalysis - C+S If Indicated (05/22/17 06:44) [place]gren Sedimentation Rate (05/22/17 06:44) Chest, Single Ap (05/22/17 06:44) Iv Access Insert/Monitor (05/22/17 06:44) Ecg Monitoring (05/22/17 06:44) Oximetry (05/22/17 06:44) Sodium Chlor 0.9% 1000 Ml Inj (Ns 1000 M (05/22/17 06:45) Lactic Acid (05/22/17 06:44) Blood Product Administration (05/22/17 07:41) Sodium Chlor 0.9% 250 Ml Inj (Ns 250 Ml (05/22/17 07:45) Admit Order (Ed Use Only) (05/22/17 08:14) Admit To Inpatient (05/22/17 ) Vital Signs (Adult) GURDEEP.Q4H (05/22/17 08:13) Activity Oob With Assistance (05/22/17 08:13) Sample Checker / Telemetry GURDEEP.Q8H (05/22/17 08:13) Inpatient Certification (05/22/17 ) Labs Laboratory Tests Test 05/22/17 06:45 05/22/17 06:50 Blood Urea Nitrogen 4 MG/DL Creatinine 0.52 MG/DL Random Glucose 129 MG/DL Total Protein 8.0 GM/DL Albumin 3.4 GM/DL Calcium Level 8.2 MG/DL Alkaline Phosphatase 117 U/L Aspartate Amino Transf (AST/SGOT) 96 U/L Alanine Aminotransferase (ALT/SGPT) 24 U/L Total Bilirubin 3.0 MG/DL Sodium Level 138 MEQ/L Potassium Level 3.4 MEQ/L Chloride Level 104 MEQ/L Carbon Dioxide Level 25.7 MEQ/L Anion Gap 8 MEQ/L Estimat Glomerular Filtration Rate 164 ML/MIN C-Reactive Protein 2.53 MG/DL White Blood Count 12.6 TH/MM3 Red Blood Count 1.80 MIL/MM3 Hemoglobin 5.6 GM/DL Hematocrit 16.8 % Mean Corpuscular Volume 93.5 FL Mean Corpuscular Hemoglobin 31.2 PG Mean Corpuscular Hemoglobin Concent 33.3 % Red Cell Distribution Width 24.0 % Platelet Count 253 TH/MM3 Mean Platelet Volume 8.7 FL CBC Comment AUTO DIFF Differential Total Cells Counted 100 Neutrophils % (Manual) 41 % Band Neutrophils % 2 % Lymphocytes % 51 % Monocytes % 4 % Eosinophils % 2 % Neutrophils # (Manual) 5.4 TH/MM3 Nucleated Red Blood Cells 54 /100 WBC Differential Comment FINAL DIFF MANUAL Platelet Estimate NORMAL Platelet Morphology Comment NORMAL Sickle Cells 2+ Target Cells 1+ Fields-[place] Bodies PRESENT Erythrocyte Sedimentation Rate GREATER THAN 140 mm/hr Lactic Acid Level 1.8 mmol/L MDM Supervised Visit with KYE: No Narrative Course I spoke with the hospitalist from [place] who accepted the case. Meanwhile, I was told by the nurse that the patient has absconded and not in her room. She has left with her port access and PD has been called to locate her to get the access out. Procedures Procedure Narrative Aggregate critical care time was 30 minutes. Time to perform other separately billable procedures was not included in the critical care time. My time did not include minutes spent treating any other patients simultaneously or on activities that did not directly contribute to the patient's treatment. The services I provided to this patient were to treat and/or prevent clinically significant deterioration that could result in: Sickle cell anemia, symptomatic anemia, blood transfusion I provided critical care services requiring my management, as noted below: Chart data review, documentation time, medication orders and management, vital sign assessments/reviewing monitor data, ordering and reviewing lab tests, ordering and interpreting/reviewing x-rays and diagnostic studies, care of the patient and discussion of the patient with the admitting physicians. Diagnosis Primary Impression: Sickle cell disease Qualified Codes: D57.00 - Hb-SS disease with crisis, unspecified Additional Impression: Symptomatic anemia Admitting Information Admitting Physician Requests: Admit Disposition: 07 AGAINST MEDICAL ADVICE Condition: Serious Iesha Lynn MD May 22, 2017 08:20
[2017-05-22 08:23] LABS: BANDS 2 % (0-6); CORRECTED NUCLEATED RBC 54 /100 WBC (0-0); LYMPHOCYTES 51 % (9-44); MONOCYTES 4 % (0-8); NEUTROPHIL # MANUAL DIFF 5.4 TH/MM3 (1.8-7.7); NUCLEATED RED BLOOD CELL 54 (0-0); POLYS (SEG NEUTROPHILS) 41 % (16-70)
[2017-05-22 08:25] LABS: HOWELL-JOLLY BODIES PRESENT (NONE SEEN); SICKLE CELLS 2+ (NORMAL); TARGET CELLS 1+ (NORMAL)
[2017-05-22 08:40] LABS: BILIRUBIN, URINE NEG (NEG); BLOOD, URINE TRACE (NEG); GLUCOSE,URINE NEG (NEG); KETONE, URINE NEG (NEG); NITRITE,URINE NEG (NEG); SQUAMOUS EPITHELIAL CELL URINE 1 /hpf (0-5); URINE COLOR YELLOW (YELLW/STRAW); URINE LEUKOCYTE ESTERASE NEG (NEG)
== END 2017-05-22 08:30 | disposition left against medical advice (07) | DRG 812 ==
LOC: NEPE 06:13 → NEDA 08:15
PROVIDERS: ADMIT Hospitalist; ATTEND Hospitalist
DX: D57.00 Hb-SS disease with crisis, unspecified (principal); R50.9 Fever, unspecified; Z88.5 Allergy status to narcotic agent
CPT/HCPCS: 71045; 80053; 81001; 83605; 85007; 85027; 85652; 86140; 87040; 96360; 99281; J7030

== ENCOUNTER 2017-05-24 04:22 | Observation (INO) | payer OTHER ==
[~2017-05-24 04:22] MED LIST changes: -CALG500 PO; -KLORCONEF PO
[2017-05-24 04:24] VITALS: BP 105/69; PULSE 89; RESP 16; TEMP 98.7; O2SAT 96
[2017-05-24] MEDS ORDERED: SODIUM CHLOR 0.9% 1000 ML INJ 1,000 ML IV ONE (06:01)
[2017-05-24] MEDS ORDERED: diphenhydrAMINE HCL 50 MG/ML VIAL IV PUSH ONE (06:15)
[2017-05-24] MEDS ORDERED: HYDROmorphone HCL PF 1 MG/ML VIAL IVS ONE (06:15)
[2017-05-24] MEDS ORDERED: ONDANSETRON HCL 4 MG/2 ML VIAL IVP ONE (06:15)
[2017-05-24] MEDS ORDERED: SODIUM CHLORIDE 0.9% FLUSH 10 ML FLUSH IVF PRN (06:15)
[2017-05-24 06:40] LABS: AUTOMATED NEUTROPHIL # 5.5 TH/MM3 (1.8-7.7); BASOPHIL # 0.1 TH/MM3 (0-0.2); BASOPHIL % 0.5 % (0.0-2.0); EOSINOPHIL # 0.2 TH/MM3 (0-0.4); EOSINOPHIL % 1.6 % (0.0-4.0); LYMPH % 43.6 % (9.0-44.0); LYMPHOCYTE # 5.4 TH/MM3 (1.0-4.8); MEAN CELL VOLUME 96.4 FL (80.0-100.0); MEAN CORPUSCULAR HEMOGLOBIN 33.2 PG (27.0-34.0); MEAN CORPUSCULAR HGB CONC 34.5 % (32.0-36.0); MEAN PLATELET VOLUME 8.8 FL (7.0-11.0); MONO % 9.6 % (0.0-8.0); MONOCYTE # 1.2 TH/MM3 (0-0.9); NEUT % 44.7 % (16.0-70.0); PLATELET COUNT 284 TH/MM3 (150-450); RED BLOOD COUNT 1.91 MIL/MM3 (4.00-5.30); RED CELL DISTRIBUTION WIDTH 28.6 % (11.6-17.2); RETIC # 413.5 MIL/L (20.0-150.0); RETIC % 21.7 % (0.4-3.0); WHITE BLOOD COUNT 12.3 TH/MM3 (4.0-11.0)
[2017-05-24 06:51] LABS: HEMATOCRIT 18.4 % (35.0-46.0); HEMOGLOBIN 6.3 GM/DL (11.6-15.3)
--- NOTE | 2017-05-24 06:57 | PD ---
HPI Chief Complaint: Sickle Cell Time Seen by Provider: 06:01 Travel History International Travel<30 days: No Contact w/Intl Traveler<30days: No Traveled to known affect area: No History of Present Illness HPI 28-year-old female presents to the emergency department for my back pain and leg pain generalized weakness and anemia. Patient is a known sickle cell patient who is seen frequently in this facility. Patient was. Previously followed by Dr. Del Castillo bed since he left the hematology oncology practice she has not established with a [place] oncologist/biodiesel production associate. Patient is followed by a biodiesel production associate in [place] reportedly. Patient states recently she has had issues with exacerbation of her sickle cell with decreasing hemoglobins. Patient reports that her hemoglobin is typically 7 or greater and less than 7 she typically requires a transfusion to abort her symptoms. Patient has been taking her outpatient medications as prescribed reportedly. Patient has had no fever or chills. Patient's had no injury. Patient denies . PFSH Past Medical History Narrative Medical Sickle cell anemia, no tobacco use; nursing notes reviewed Hx Anticoagulant Therapy: No Anemia: Yes Arthritis: No Asthma: No Autoimmune Disease: No Blood Disorders: Yes (sickle cell disease) Anxiety: No Depression: No Heart Rhythm Problems: No Cancer: No Cardiovascular Problems: No High Cholesterol: No Chemotherapy: No Chest Pain: No Congestive Heart Failure: No COPD: No Cerebrovascular Accident: No Diabetes: No Diminished Hearing: No Endocrine: No Gastrointestinal Disorders: Yes (GALLSTONES) GERD: No Genitourinary: No Headaches: Yes Hiatal Hernia: No Heparin Induced Thrombocytopen: No Immune Disorder: No Implanted Vascular Access Dvce: Yes (RIGHT CHEST ) Insomnia: Yes Kidney Stones: Yes Musculoskeletal: No Neurologic: No Psychiatric: No Reproductive: No Respiratory: No Immunizations Current: Yes Migraines: No Pneumonia: Yes Radiation Therapy: No Renal Failure: No Seizures: No Sickle Cell Disease: Yes Sleep Apnea: No Thyroid Disease: No Ulcer: No PNEUMOCCOCAL Vaccine (Year): 2 ?: Not : 2 Para: 1 Miscarriage: 1 : 0 Tubal Ligation: Yes Past Surgical History Abdominal Surgery: Yes AICD: No Arteriovenous Shunt: No Body Medical Devices: right chest port Cardiac Surgery: No Section: Yes (X 1) Cholecystectomy: Yes Ear Surgery: No Endocrine Surgery: No Eye Surgery: No Genitourinary Surgery: No Gynecologic Surgery: Yes (tubal ligation) Hysterectomy: No Insulin Pump: No Joint Replacement: No Oral Surgery: Yes Pacemaker: No Thoracic Surgery: Yes (CHEST PORT ) Tonsillectomy: Yes Other Surgery: Yes (right chest port) Social History Alcohol Use: No Tobacco Use: No Substance Use: No Allergies-Medications (Allergen,Severity, Reaction): Coded Allergies: morphine (Verified Allergy, Severe, RASH, 05/24/17) *MDRO Multi-Drug Resistant Organism (Verified Adverse Reaction, Unknown, MRSA, 05/24/17) MRSA (blood) - 12/18/2004 MRSA PCR screen NEGATIVE 08/27/16 & 09/21/16 Cleared per Infection Control Reported Meds & Prescriptions Reported Meds & Active Scripts Active Hydrocodone-Acetaminophen 10-325 mg Tab 1 Tab PO Q6H PRN Hydrea (Hydroxyurea) 500 Mg Cap 500 Mg PO DAILY 30 Days Reported Folic Acid 0.4 Mg Tab 400 Mcg PO DAILY Review of Systems Except as stated in HPI: all other systems reviewed are Neg Physical Exam Narrative GENERAL: Well-developed thin female in no acute respiratory distress SKIN: Warm and dry. HEAD: Normocephalic. EYES: No scleral icterus. No injection or drainage. NECK: Supple, trachea midline. No JVD or lymphadenopathy. CARDIOVASCULAR: Regular rate and rhythm without murmurs, gallops, or rubs. RESPIRATORY: Breath sounds equal bilaterally. No accessory muscle use. GASTROINTESTINAL: Abdomen soft, non-tender, nondistended. MUSCULOSKELETAL: No cyanosis, or edema. BACK: Nontender without obvious deformity. No CVA tenderness. Data Data Last Documented VS Vital Signs Date Time Temp Pulse Resp B/P (MAP) Pulse Ox O2 Delivery O2 Flow Rate FiO2 05/24/17 07:44 98.5 71 20 95/56 (69) 97 Room Air Orders Orders Basic Metabolic Panel (Bmp) (05/24/17 06:01) Complete Blood Count With Diff (05/24/17 06:01) Retic Count (05/24/17 06:01) Ua Includes Microscopic (05/24/17 06:01) Ecg Monitoring (05/24/17 06:01) Iv Access Insert/Monitor (05/24/17 06:01) Oximetry (05/24/17 06:01) Ondansetron Inj (Zofran Inj) (05/24/17 06:15) Sodium Chloride 0.9% Flush (Ns Flush) (05/24/17 06:15) Sodium Chlor 0.9% 1000 Ml Inj (Ns 1000 M (05/24/17 06:01) Hydromorphone Pf Inj (Dilaudid Pf Inj) (05/24/17 06:15) Diphenhydramine Inj (Benadryl Inj) (05/24/17 06:15) Ed Urine Pregnancytest Poc (05/24/17 06:01) Blood Product Administration (05/24/17 07:03) Sodium Chlor 0.9% 250 Ml Inj (Ns 250 Ml (05/24/17 07:15) Type And Screen (05/24/17 07:03) Chest, Single Ap (05/24/17 ) Ceftriaxone Inj (Rocephin Inj) (05/24/17 07:45) Place In Observation (05/24/17 ) Vital Signs (Adult) Q4H (05/24/17 07:44) Activity Oob With Assistance (05/24/17 07:44) Sodium Chlor 0.9% 1000 Ml Inj (Ns 1000 M (05/24/17 08:00) Sodium Chloride 0.9% Flush (Ns Flush) (05/24/17 07:45) Sodium Chloride 0.9% Flush (Ns Flush) (05/24/17 09:00) Acetaminophen (Tylenol) (05/24/17 07:45) Ondansetron Inj (Zofran Inj) (05/24/17 07:45) Resp Oxygen Will C Titrat 1-4 L (05/24/17 ) Case Management Consult (05/24/17 07:44) Zolpidem (Ambien) (05/24/17 07:45) Scd Bilateral/Knee High GURDEEP.BID (05/24/17 07:44) Derrick Bilateral/Knee High GURDEEP.QSHIFT (05/24/17 07:44) Pharmacologic Contraindication (05/24/17 07:44) Naloxone Inj (Narcan Inj) (05/24/17 07:45) Docusate Sodium-Senna (Leticia-Colace) (05/24/17 09:00) Magnesium Hydroxide Liq (Milk Of Magnesi (05/24/17 07:45) Sennosides (Senokot) (05/24/17 07:45) Bisacodyl Supp (Dulcolax Supp) (05/24/17 07:45) Lactulose Liq (Lactulose Liq) (05/24/17 07:45) Folic Acid (Folate) (05/24/17 09:00) Acetamin-Hydrocod 325-10 Mg ([place] 10-32 (05/24/17 08:00) Hydroxyurea (Hydrea) (05/24/17 09:00) Admit Order (Ed Use Only) (05/24/17 ) Vital Signs (Adult) Q4H (05/24/17 07:47) Activity Oob With Assistance (05/24/17 07:47) Notify Dr: Other (05/24/17 07:47) Ceftriaxone Inj (Rocephin Inj) (05/25/17 08:00) Labs Laboratory Tests Test 05/24/17 06:18 05/24/17 06:56 White Blood Count 12.3 TH/MM3 Red Blood Count 1.91 MIL/MM3 Hemoglobin 6.3 GM/DL Hematocrit 18.4 % Mean Corpuscular Volume 96.4 FL Mean Corpuscular Hemoglobin 33.2 PG Mean Corpuscular Hemoglobin Concent 34.5 % Red Cell Distribution Width 28.6 % Platelet Count 284 TH/MM3 Mean Platelet Volume 8.8 FL Neutrophils (%) (Auto) 44.7 % Lymphocytes (%) (Auto) 43.6 % Monocytes (%) (Auto) 9.6 % Eosinophils (%) (Auto) 1.6 % Basophils (%) (Auto) 0.5 % Neutrophils # (Auto) 5.5 TH/MM3 Lymphocytes # (Auto) 5.4 TH/MM3 Monocytes # (Auto) 1.2 TH/MM3 Eosinophils # (Auto) 0.2 TH/MM3 Basophils # (Auto) 0.1 TH/MM3 CBC Comment AUTO DIFF Differential Total Cells Counted 100 Neutrophils % (Manual) 36 % Lymphocytes % 59 % Monocytes % 4 % Neutrophils # (Manual) 4.6 TH/MM3 Myelocytes 1 % Nucleated Red Blood Cells 82 /100 WBC Differential Comment FINAL DIFF MANUAL Platelet Estimate NORMAL Platelet Morphology Comment NORMAL Polychromasia 4.0 % Sickle Cells 2+ Target Cells 1+ Fields-[place] Bodies PRESENT Red Cell Morphology Comment Reticulocyte Count 21.7 % Absolute Reticulocyte Count 413.5 MIL/L Blood Urea Nitrogen 5 MG/DL Creatinine 0.52 MG/DL Random Glucose 88 MG/DL Calcium Level 8.4 MG/DL Sodium Level 137 MEQ/L Potassium Level 3.6 MEQ/L Chloride Level 106 MEQ/L Carbon Dioxide Level 24.1 MEQ/L Anion Gap 7 MEQ/L Estimat Glomerular Filtration Rate 164 ML/MIN Urine Color YELLOW Urine Turbidity HAZY Urine pH 7.0 Urine Specific [place] 1.008 Urine Protein NEG mg/dL Urine Glucose (UA) NEG mg/dL Urine Ketones NEG mg/dL Urine Occult Blood TRACE Urine Nitrite NEG Urine Bilirubin NEG Urine Urobilinogen 8.0 MG/DL Urine Leukocyte Esterase NEG Urine WBC 2 /hpf Urine Squamous Epithelial Cells 5 /hpf Urine Bacteria MOD /hpf MDM Medical Decision Making Medical Screen Exam Complete: Yes Emergency Medical Condition: Yes Medical Record Reviewed: Yes Interpretation(s) hgb: 6.3 RC: 21.7%;ar: 413.5 Differential Diagnosis Sickle cell pain, vaso-occlusive crisis, anemia, UTI, viral syndrome, pneumonia Narrative Course Specimens collected and sent for resulting patient administered IV fluids and Dilaudid 1 mg 1 dose Benadryl 25 mg times one dose and Halina Mukherjee MD May 24, 2017 06:57
[2017-05-24 07:10] LABS: BILIRUBIN, URINE NEG (NEG); BLOOD, URINE TRACE (NEG); GLUCOSE,URINE NEG (NEG); KETONE, URINE NEG (NEG); NITRITE,URINE NEG (NEG); SQUAMOUS EPITHELIAL CELL URINE 5 /hpf (0-5); URINE COLOR YELLOW (YELLW/STRAW); URINE LEUKOCYTE ESTERASE NEG (NEG)
[2017-05-24 07:15] LABS: BACTERIA, URINE MOD /hpf
[2017-05-24] MEDS ORDERED: SODIUM CHLOR 0.9% 250 ML INJ 250 ML IV ONE (07:15)
[2017-05-24 07:21] LABS: BICARBONATE 24.1 MEQ/L (21.0-32.0); CALCIUM 8.4 MG/DL (8.5-10.1); CREATININE 0.52 MG/DL (0.50-1.00)
[2017-05-24 07:40] LABS: CORRECTED NUCLEATED RBC 82 /100 WBC (0-0); LYMPHOCYTES 59 % (9-44); MONOCYTES 4 % (0-8); MYELOCYTES 1 % (0-0); NEUTROPHIL # MANUAL DIFF 4.6 TH/MM3 (1.8-7.7); NUCLEATED RED BLOOD CELL 82 (0-0); POLYS (SEG NEUTROPHILS) 36 % (16-70); SICKLE CELLS 2+ (NORMAL)
[2017-05-24 07:41] LABS: HOWELL-JOLLY BODIES PRESENT (NONE SEEN); TARGET CELLS 1+ (NORMAL)
[2017-05-24 07:44] VITALS: BP 95/56; PULSE 71; RESP 20; TEMP 98.5; O2SAT 97
[2017-05-24] MEDS ORDERED: cefTRIAXone INJ 2,000 MG in SODIUM CHLORIDE 0.9% INJ 100 ML IV ONE (07:45)
[2017-05-24] MEDS ORDERED: SODIUM CHLORIDE 0.9% FLUSH 10 ML FLUSH IV FLUSH PRN (07:45)
[2017-05-24] MEDS ORDERED: ONDANSETRON HCL 4 MG/2 ML VIAL IVP PRN (07:45)
[2017-05-24] MEDS ORDERED: BISACODYL 10 MG SUPP RECTAL PRN (07:45)
[2017-05-24] MEDS ORDERED: SENNOSIDES 8.6 MG TAB PO PRN (07:45)
[2017-05-24] MEDS ORDERED: ZOLPIDEM TARTRATE 5 MG TAB PO PRN (07:45)
[2017-05-24] MEDS ORDERED: MAGNESIUM HYDROXIDE SUSP 30 ML CUP PO PRN (07:45)
[2017-05-24] MEDS ORDERED: ACETAMINOPHEN 325 MG TAB PO PRN (07:45)
[2017-05-24] MEDS ORDERED: NALOXONE HCL 0.4 MG/ML AMP IV PUSH PRN (07:45)
[2017-05-24] MEDS ORDERED: LACTULOSE SYRUP 20 GM/30 ML CUP PO PRN (07:45)
[2017-05-24 07:52] VITALS: O2SAT 94
[2017-05-24] MEDS ORDERED: ACETAMINOPHEN/HYDROcodone 325 MG/10 MG TAB PO PRN (08:00)
[2017-05-24] MEDS ORDERED: SODIUM CHLOR 0.9% 1000 ML INJ 1,000 ML IV SCH (08:00)
--- NOTE | 2017-05-24 08:31 | RADRPT ---
EXAM DATE/TIME: 05/24/2017 08:01 [facility] COMPARISON: CHEST SINGLE AP, May 22, 2017, 6:52. INDICATIONS : Fever. MEDICAL HISTORY : Sickle Cell disease. SURGICAL HISTORY : Cholecystectomy. Infusaport. ENCOUNTER: Initial ACUITY: 3 days PAIN SCORE: 0/10 LOCATION: chest FINDINGS: Single AP view of the chest. Right-sided Pmmgte-g-[id number] remains in place. The lungs are clear. Mildly prominent cardiac silhouette unchanged. No evidence of pleural effusion or pneumothorax. CONCLUSION: Mildly prominent cardiac silhouette unchanged. No acute cardiopulmonary disease i dentified. Norris Wolfe MD on May 24, 2017 at 8:27 Board Certified Radiologist. This report was verified electronically.
[2017-05-24] MEDS ORDERED: SODIUM CHLORIDE 0.9% FLUSH 10 ML FLUSH IV FLUSH SCH (09:00)
[2017-05-24] MEDS ORDERED: FOLIC ACID 1 MG TAB PO SCH (09:00)
[2017-05-24] MEDS ORDERED: HYDROXYUREA 500 MG CAP PO SCH (09:00)
[2017-05-24] MEDS ORDERED: DOCUSATE SODIUM 50 MG/SENNA 8.6 MG TAB PO SCH (09:00)
[2017-05-25] MEDS ORDERED: cefTRIAXone INJ 1,000 MG in SODIUM CHLORIDE 0.9% INJ 100 ML IV SCH (08:00)
== END 2017-05-24 08:30 | disposition left against medical advice (07) ==
LOC: NEPC 04:22 → NEDA 07:49
PROVIDERS: ADMIT Hospitalist; ATTEND Hospitalist
DX: D57.1 Sickle-cell disease without crisis (principal); Z79.899 Other long term (current) drug therapy
CPT/HCPCS: 71045; 80048; 81001; 84703; 85007; 85027; 85044; 86850; 86900; 86901; 86920; 96374; 96375; 99285; G0378; J1170; J1200; J2405; J7030

== ENCOUNTER 2017-06-12 04:36 | Emergency (ER) | payer OTHER ==
[~2017-06-12] VITALS: Ht 152.4 cm; Wt 55.0 kg
[2017-06-12 04:41] VITALS: BP 110/69; PULSE 91; RESP 18; TEMP 98.9; O2SAT 88; O2SAT 91
[2017-06-12 04:52] VITALS: PULSE 90; RESP 16; O2SAT 85
[2017-06-12 04:53] VITALS: O2SAT 98
[2017-06-12] MEDS ORDERED: SODIUM CHLOR 0.9% 1000 ML INJ 1,000 ML IV ONE (04:59)
[2017-06-12] MEDS ORDERED: SODIUM CHLORIDE 0.9% FLUSH 10 ML FLUSH IVF PRN (05:00)
[2017-06-12] MEDS ORDERED: KETOROLAC TROMETHAMINE 30 MG/ML (IVP) VIAL IV PUSH ONE (05:00)
[2017-06-12 05:18] VITALS: O2SAT 88
[2017-06-12 05:19] VITALS: O2SAT 98
--- NOTE | 2017-06-12 05:31 | RADRPT ---
EXAM DATE/TIME: 06/12/2017 05:13 [facility] COMPARISON: CHEST SINGLE AP, May 24, 2017, 8:01. INDICATIONS : Shortness of breath. MEDICAL HISTORY : Sickle Cell disease. SURGICAL HISTORY : Cholecystectomy. Infuse a port ENCOUNTER: Initial ACUITY: 1 day PAIN SCORE: 0/10 LOCATION: Bilateral chest FINDINGS: A single view of the chest demonstrates right-sided Frazgn-d-Olxp in superior vena cava. No focal con solidation or significant pneumothorax. Mildly tortuous aorta. CONCLUSION: 1. Right Plpjbm-p-Dcga in superior vena cava. No consolidation or significant effusion. Mild cardiome dayna. Patrice Cheema MD on June 12, 2017 at 5:25 Board Certified Radiologist. This report was verified electronically.
[2017-06-12 05:38] LABS: AMORPHOUS SEDIMENT, URINE RARE; BACTERIA, URINE RARE /hpf; BILIRUBIN, URINE NEG (NEG); BLOOD, URINE TRACE (NEG); GLUCOSE,URINE NEG (NEG); KETONE, URINE NEG (NEG); MUCUS URINE FEW /lpf (OCC); NITRITE,URINE NEG (NEG); SQUAMOUS EPITHELIAL CELL URINE 12 /hpf (0-5); URINE COLOR YELLOW (YELLW/STRAW); URINE LEUKOCYTE ESTERASE NEG (NEG)
[2017-06-12 05:40] VITALS: O2SAT 86
--- NOTE | 2017-06-12 06:40 | PD ---
HPI Chief Complaint: Sickle Cell Time Seen by Provider: 04:59 Travel History International Travel<30 days: No Contact w/Intl Traveler<30days: No Traveled to known affect area: No History of Present Illness HPI 31-year-old female presents to the emergency department for complaint of multiple areas of pain associated with exacerbation of her history of sickle cell anemia. Patient states she has back pain and leg pain arm pain and states typically she has exacerbation of her sickle cell symptoms with menses. Patient 's menstrual cycle began yesterday. Patient's had no fever no chills no nausea no vomiting no chest pain no shortness of breath or pleuritic chest pain no abdominal pain. Patient denies dysuria frequency or urgency. Patient denies . Patient was recently seen here 05/24/17 and was noted to have anemia and admitted for observation. Patient states that she has not needed to come to the emergency room until now. Patient rates her pain as 8/10 in intensity. Patient was noted in triage to have low O2 saturations on room air. Patient states she always has low O2 saturations on room air. Patient denies being short of breath. PFSH Past Medical History Narrative Medical Sickle-cell anemia cholelithiasis cholecystectomy and tubal ligation right Gonrcl-z-Ygse; no tobacco use; nursing notes reviewed Hx Anticoagulant Therapy: No Anemia: Yes Arthritis: No Asthma: No Autoimmune Disease: No Blood Disorders: Yes (sickle cell disease) Anxiety: No Depression: No Heart Rhythm Problems: No Cancer: No Cardiovascular Problems: No High Cholesterol: No Chemotherapy: No Chest Pain: No Congestive Heart Failure: No COPD: No Cerebrovascular Accident: No Diabetes: No Diminished Hearing: No Endocrine: No Gastrointestinal Disorders: Yes (GALLSTONES) GERD: No Genitourinary: No Headaches: Yes Hiatal Hernia: No Heparin Induced Thrombocytopen: No Immune Disorder: No Implanted Vascular Access Dvce: Yes (RIGHT CHEST ) Insomnia: Yes Kidney Stones: Yes Musculoskeletal: No Neurologic: No Psychiatric: No Reproductive: No Respiratory: No Immunizations Current: Yes Migraines: No Pneumonia: Yes Radiation Therapy: No Renal Failure: No Seizures: No Sickle Cell Disease: Yes Sleep Apnea: No Thyroid Disease: No Ulcer: No Tetanus Vaccination: < 5 Years PNEUMOCCOCAL Vaccine (Year): 2 ?: Not LMP: 06/11/2017 : 2 Para: 1 Miscarriage: 1 : 0 Tubal Ligation: Yes Past Surgical History Abdominal Surgery: Yes AICD: No Arteriovenous Shunt: No Body Medical Devices: right chest port Cardiac Surgery: No Section: Yes (X 1) Cholecystectomy: Yes Ear Surgery: No Endocrine Surgery: No Eye Surgery: No Genitourinary Surgery: No Gynecologic Surgery: Yes (tubal ligation) Hysterectomy: No Insulin Pump: No Joint Replacement: No Oral Surgery: Yes Pacemaker: No Thoracic Surgery: Yes (CHEST PORT ) Tonsillectomy: Yes Other Surgery: Yes (right chest port) Social History Alcohol Use: No Tobacco Use: No Substance Use: No Allergies-Medications (Allergen,Severity, Reaction): Coded Allergies: morphine (Verified Allergy, Severe, RASH, 05/24/17) *MDRO Multi-Drug Resistant Organism (Verified Adverse Reaction, Unknown, MRSA, 05/24/17) MRSA (blood) - 12/18/2004 MRSA PCR screen NEGATIVE 08/27/16 & 09/21/16 Cleared per Infection Control Reported Meds & Prescriptions Reported Meds & Active Scripts Active Hydrocodone-Acetaminophen 10-325 mg Tab 1 Tab PO Q6H PRN Hydrea (Hydroxyurea) 500 Mg Cap 500 Mg PO DAILY 30 Days Reported Folic Acid 0.4 Mg Tab 400 Mcg PO DAILY Review of Systems Except as stated in HPI: all other systems reviewed are Neg General / Constitutional: No: Fever, Chills HENT: No: Congestion Cardiovascular: Positive: Chest Pain or Discomfort Respiratory: No: Shortness of Breath Gastrointestinal: No: Abdominal Pain Genitourinary: Positive: Flank Pain Musculoskeletal: Positive: Myalgias, Arthralgias, Pain Skin: No Rash Neurologic: No: Weakness Psychiatric: No: Anxiety Hematologic/Lymphatic: No: Lymph Node Enlargement Physical Exam Narrative GENERAL: Well-developed well-nourished female in no acute distress no respiratory distress appears mildly drowsy; triage pulse oximetry 85% on room air 94% on 2 L/m nasal cannula SKIN: Warm and dry. HEAD: Normocephalic. EYES: No scleral icterus. No injection or drainage. NECK: Supple, trachea midline. No JVD or lymphadenopathy. CARDIOVASCULAR: Regular rate and rhythm without murmurs, gallops, or rubs. RESPIRATORY: Breath sounds equal bilaterally. No accessory muscle use. GASTROINTESTINAL: Abdomen soft, non-tender, nondistended. MUSCULOSKELETAL: No cyanosis, or edema. BACK: Nontender without obvious deformity. No CVA tenderness. Data Data Last Documented VS Vital Signs Date Time Temp Pulse Resp B/P (MAP) Pulse Ox O2 Delivery O2 Flow Rate FiO2 06/12/17 05:40 86 Room Air 06/12/17 05:19 2.00 06/12/17 04:52 90 16 06/12/17 04:41 98.9 Orders Orders Basic Metabolic Panel (Bmp) (06/12/17 04:59) Complete Blood Count With Diff (06/12/17 04:59) Retic Count (06/12/17 04:59) Urinalysis - C+S If Indicated (06/12/17 04:59) Chest, Single Ap (06/12/17 04:59) Ecg Monitoring (06/12/17 04:59) Iv Access Insert/Monitor (06/12/17 04:59) Oximetry (06/12/17 04:59) Sodium Chloride 0.9% Flush (Ns Flush) (06/12/17 05:00) Sodium Chlor 0.9% 1000 Ml Inj (Ns 1000 M (06/12/17 04:59) Ketorolac Inj (Toradol Inj) (06/12/17 05:00) Ed Urine Pregnancytest Poc (06/12/17 04:59) Labs Laboratory Tests Test 06/12/17 05:15 Urine Color YELLOW Urine Turbidity HAZY Urine pH 6.0 Urine Specific [place] 1.007 Urine Protein NEG mg/dL Urine Glucose (UA) NEG mg/dL Urine Ketones NEG mg/dL Urine Occult Blood TRACE Urine Nitrite NEG Urine Bilirubin NEG Urine Urobilinogen 4.0 MG/DL Urine Leukocyte Esterase NEG Urine RBC 1 /hpf Urine WBC 1 /hpf Urine Squamous Epithelial Cells 12 /hpf Urine Amorphous Sediment RARE Urine Bacteria RARE /hpf Urine Mucus FEW /lpf Microscopic Urinalysis Comment CULT NOT INDICATED MDM Medical Decision Making Medical Screen Exam Complete: Yes Emergency Medical Condition: Yes Medical Record Reviewed: Yes Interpretation(s) Urinalysis: Occasional bacteria culture not indicated specific gravity is not concentrated at 1.007 Ozczh-tu-[id number] hCG: negative Differential Diagnosis Sickle cell anemia, vaso-occlusive crisis, anemia, pneumonia, PE, UTI, elect light disturbance, dehydration Narrative Course Patient placed on monitors supplemental oxygen and access of Bkymij-p-Unfq ordered; 1 L normal saline ordered along with Toradol 30 mg IV Patient refusing nurse to access Akfffk-p-Klki unless she can get narcotic pain medication Discussed with patient concerns for low oxygenation and adding Benadryl and Dilaudid 2 her system further depressing her respirations like to obtain lab work and administer IV fluids along with supplemental oxygen prior to giving narcotics and Benadryl This is discussed in detail with the patient and she again refuses nurse to access Wojwbr-u-Hhky and refuses to have IV fluids Toradol. Patient provided urine specimen and [id number] hCG is negative urinalysis is remarkable for rare bacteria culture not indicated. S.007 At 6:48 AM went to patient's exam room to be discussed with patient her options and again request her to receive IV fluids to help with her sickle cell complaint patient has left the hospital emergency department and apparently has eloped. Diagnosis Primary Impression: Left against medical advice Disposition: 07 AGAINST MEDICAL ADVICE Condition: Stable Halina Jiang MD Jun 12, 2017 06:40
== END 2017-06-12 07:43 | disposition left against medical advice (07) ==
LOC: NEPC 04:36
DX: D57.1 Sickle-cell disease without crisis (principal); M54.9 Dorsalgia, unspecified; M79.606 Pain in leg, unspecified; M79.603 Pain in arm, unspecified; I51.7 Cardiomegaly; D64.9 Anemia, unspecified; Z79.899 Other long term (current) drug therapy; Z88.5 Allergy status to narcotic agent
CPT/HCPCS: 71045; 81001; 84703; 99283

== ENCOUNTER 2017-06-17 02:07 | Emergency (ER) | payer OTHER ==
[2017-06-17 02:11] VITALS: BP 130/67; PULSE 87; RESP 18; TEMP 98.8; O2SAT 95
[2017-06-17] MEDS ORDERED: SODIUM CHLOR 0.9% 1000 ML INJ 1,000 ML IV ONE (02:35)
[2017-06-17] MEDS ORDERED: diphenhydrAMINE HCL 50 MG/ML VIAL IV PUSH ONE ×2 (02:45→04:30)
[2017-06-17] MEDS ORDERED: SODIUM CHLORIDE 0.9% FLUSH 10 ML FLUSH IVF PRN (02:45)
[2017-06-17] MEDS ORDERED: ONDANSETRON HCL 4 MG/2 ML VIAL IVP ONE (02:45)
[2017-06-17] MEDS ORDERED: HYDROmorphone HCL PF 2 MG/ML VIAL IV PUSH ONE ×2 (02:45→04:30)
[2017-06-17 02:46] VITALS: BP 107/63; PULSE 86; RESP 16; O2SAT 96
[2017-06-17 03:00] LABS: AUTOMATED NEUTROPHIL # 4.6 TH/MM3 (1.8-7.7); BASOPHIL # 0.1 TH/MM3 (0-0.2); BASOPHIL % 0.8 % (0.0-2.0); EOSINOPHIL # 0.2 TH/MM3 (0-0.4); HEMOGLOBIN 7.4 GM/DL (11.6-15.3); LYMPH % 40.9 % (9.0-44.0); LYMPHOCYTE # 4.1 TH/MM3 (1.0-4.8); MEAN CELL VOLUME 86.6 FL (80.0-100.0); MEAN CORPUSCULAR HEMOGLOBIN 31.4 PG (27.0-34.0); MEAN PLATELET VOLUME 8.1 FL (7.0-11.0); MONO % 10.7 % (0.0-8.0); MONOCYTE # 1.1 TH/MM3 (0-0.9); NEUT % 45.6 % (16.0-70.0); PLATELET COUNT 315 TH/MM3 (150-450); RED BLOOD COUNT 2.36 MIL/MM3 (4.00-5.30); RED CELL DISTRIBUTION WIDTH 27.2 % (11.6-17.2)
[2017-06-17 03:02] LABS: MEAN CORPUSCULAR HGB CONC 36.2 % (32.0-36.0)
[2017-06-17 03:04] LABS: HEMATOCRIT 20.4 % (35.0-46.0)
[2017-06-17 03:17] LABS: ALKALINE PHOSPHATASE 93 U/L (45-117); TOTAL BILIRUBIN ADULT 3.4 MG/DL (0.2-1.0)
[2017-06-17 03:19] LABS: ALBUMIN 3.7 GM/DL (3.4-5.0); ALT (GPT) 10 U/L (10-53); AST (GOT) 66 U/L (15-37); BICARBONATE 26.9 MEQ/L (21.0-32.0); BLOOD UREA NITROGEN 4 MG/DL (7-18); CALCIUM 8.7 MG/DL (8.5-10.1); CHLORIDE 106 MEQ/L (98-107); CREATININE 0.45 MG/DL (0.50-1.00); GLOMERULAR FILTRATION RATE 194 ML/MIN (>89); GLUCOSE,RANDOM 125 MG/DL (74-106); SODIUM (NA) 140 MEQ/L (136-145)
[2017-06-17 03:33] LABS: CORRECTED NUCLEATED RBC 16 /100 WBC (0-0); LYMPHOCYTES 54 % (9-44); METAMYELOCYTES 3 % (0-1); MONOCYTES 5 % (0-8); NEUTROPHIL # MANUAL DIFF 3.9 TH/MM3 (1.8-7.7); NUCLEATED RED BLOOD CELL 16 (0-0); POLYS (SEG NEUTROPHILS) 36 % (16-70)
[2017-06-17 03:35] LABS: SICKLE CELLS 3+ (NORMAL)
--- NOTE | 2017-06-17 03:36 | PD ---
HPI Chief Complaint: General Weakness Time Seen by Provider: 02:24 Travel History International Travel<30 days: No Contact w/Intl Traveler<30days: No Traveled to known affect area: No History of Present Illness HPI The patient is a 31 year old female who presents to the [facility] emergency department with a history of yesterday having onset of bilateral leg pain, low back pain, bilateral arm pain associated with generalized weakness and dizziness. The patient describes a dizzy sensation as being lightheaded. She denies having any vertigo. The patient has a known history of sickle cell anemia. She last took pain medication at 9:30 PM. She reports that she has an appointment with her fruit picker, Dr. Rivas scheduled for Friday. The patient reports having nausea without any vomiting. The patient reports that this evening she began to have diarrhea and has had 2 episodes since onset. She denies having any blood in her stool or black or tarry stools. Otherwise on review of systems, she denies having any recent fevers, cough, congestion, neck pain, chest pain, shortness of breath, abdominal pain, urinary symptoms, or neurologic symptoms. LMP: May 18, 2017 [facility] Past Medical History Narrative Medical The patient's past medical history is significant for sickle cell anemia, dysmenorrhea, history of pneumonia, history of headaches. Hx Anticoagulant Therapy: No Anemia: Yes Arthritis: No Asthma: No Autoimmune Disease: No Blood Disorders: Yes (sickle cell disease) Anxiety: No Depression: No Heart Rhythm Problems: No Cancer: No Cardiovascular Problems: No High Cholesterol: No Chemotherapy: No Chest Pain: No Congestive Heart Failure: No COPD: No Cerebrovascular Accident: No Diabetes: No Diminished Hearing: No Endocrine: No Gastrointestinal Disorders: Yes (GALLSTONES) GERD: No Genitourinary: No Headaches: Yes Hiatal Hernia: No Heparin Induced Thrombocytopen: No Immune Disorder: No Implanted Vascular Access Dvce: Yes (RIGHT CHEST ) Insomnia: Yes Kidney Stones: Yes Musculoskeletal: No Neurologic: No Psychiatric: No Reproductive: No Respiratory: No Immunizations Current: Yes Migraines: No Pneumonia: Yes Radiation Therapy: No Renal Failure: No Seizures: No Sickle Cell Disease: Yes Sleep Apnea: No Thyroid Disease: No Ulcer: No PNEUMOCCOCAL Vaccine (Year): 2 ?: Not : 2 Para: 1 Miscarriage: 1 : 0 Tubal Ligation: Yes Past Surgical History Narrative Surgical The patient's past surgical history is significant for an [id number] placement, bilateral tubal ligation, 1, cholecystectomy. Abdominal Surgery: Yes AICD: No Arteriovenous Shunt: No Body Medical Devices: right chest port Cardiac Surgery: No Section: Yes (X 1) Cholecystectomy: Yes Ear Surgery: No Endocrine Surgery: No Eye Surgery: No Genitourinary Surgery: No Gynecologic Surgery: Yes (tubal ligation) Hysterectomy: No Insulin Pump: No Joint Replacement: No Oral Surgery: Yes Pacemaker: No Thoracic Surgery: Yes (CHEST PORT ) Tonsillectomy: Yes Other Surgery: Yes (right chest port) Social History Alcohol Use: No Tobacco Use: No Substance Use: No Allergies-Medications (Allergen,Severity, Reaction): Coded Allergies: morphine (Verified Allergy, Severe, RASH, 06/17/17) *MDRO Multi-Drug Resistant Organism (Verified Adverse Reaction, Unknown, MRSA, 05/24/17) MRSA (blood) - 12/18/2004 MRSA PCR screen NEGATIVE 08/27/16 & 09/21/16 Cleared per Infection Control Reported Meds & Prescriptions Reported Meds & Active Scripts Active K-Tab (Potassium Chloride) 20 Meq Tab 20 Meq PO BID 3 Days Hydrocodone-Acetaminophen 10-325 mg Tab 1 Tab PO Q6H PRN Reported Folic Acid 0.4 Mg Tab 400 Mcg PO DAILY Review of Systems Except as stated in HPI: all other systems reviewed are Neg General / Constitutional: No: Fever Eyes: No: Visual changes HENT: Positive: Lightheadedness, No: Headaches Cardiovascular: No: Chest Pain or Discomfort Respiratory: No: Shortness of Breath Gastrointestinal: Positive: Nausea, Diarrhea, Changes in Bowel Habits, No: Vomiting, Abdominal Pain, Indigestion, Loss of Appetite Genitourinary: No: Dysuria Musculoskeletal: Positive: Myalgias, Pain Skin: No Rash Neurologic: Positive: Weakness (Generalized weakness), No: Focal Abnormalities , Change in Mentation, Slurred Speech Psychiatric: No: Depression Endocrine: No: Polydipsia Hematologic/Lymphatic: No: Easy Bruising Physical Exam Narrative General: The patient is a well-developed well-nourished female in no acute distress. Head and Neck exam: Head is normocephalic atraumatic. Eyes: EOMI, pupils are equal round and reactive to light. Nose: Midline septum with pink mucous membranes Mouth: Dentition unremarkable. Moist mucus membranes. Posterior oropharynx is not erythematous. No tonsillar hypertrophy. Uvula midline. Airway patent. Neck: No palpable lymphadenopathy. No nuchal rigidity. No thyromegaly. Cardiovascular: Regular rate and rhythm without murmurs, gallops, or rubs. The patient has an [id number] in place in the right side of the chest that appears to be in good repair without any overlying erythema or edema. Lungs: Clear to auscultation bilaterally. No wheezes, rhonchi, or rales. Abdomen: Soft, without tenderness to palpation in all 4 quadrants of the abdomen. No guarding, rebound, or rigidity. Normal bowel sounds are audible. No tenderness on palpation of McBurney's point. Extremities: No clubbing, cyanosis, or edema. 2+ pulses in all 4 extremities. No calf tenderness on palpation. The patient has no joint erythema or edema. The patient has full range of motion of her upper and lower extremities. Back: No spinous process tenderness to palpation. No costovertebral angle tenderness to palpation. Neurologic Exam: Grossly intact. Skin Exam: No rash noted. Intact skin that is warm and dry. Data Data Last Documented VS Vital Signs Date Time Temp Pulse Resp B/P (MAP) Pulse Ox O2 Delivery O2 Flow Rate FiO2 06/17/17 04:57 06/17/17 04:14 80 16 97 06/17/17 02:46 Room Air 06/17/17 02:11 98.8 Orders Orders Complete Blood Count With Diff (06/17/17 02:35) Comprehensive Metabolic Panel (06/17/17 02:35) Ecg Monitoring (06/17/17 02:35) Iv Access Insert/Monitor (06/17/17 02:35) Oximetry (06/17/17 02:35) Oxygen Administration (06/17/17 02:35) Ondansetron Inj (Zofran Inj) (06/17/17 02:45) Sodium Chloride 0.9% Flush (Ns Flush) (06/17/17 02:45) Sodium Chlor 0.9% 1000 Ml Inj (Ns 1000 M (06/17/17 02:35) Diphenhydramine Inj (Benadryl Inj) (06/17/17 02:45) Hydromorphone Pf Inj (Dilaudid Pf Inj) (06/17/17 02:45) Potassium Chloride (Kcl) (06/17/17 04:00) Diphenhydramine Inj (Benadryl Inj) (06/17/17 04:30) Hydromorphone Pf Inj (Dilaudid Pf Inj) (06/17/17 04:30) Ondansetron Inj (Zofran Inj) (06/17/17 04:30) Heparin Central Flush (Heparin Central F (06/17/17 04:30) Labs Laboratory Tests Test 06/17/17 02:50 White Blood Count 10.0 TH/MM3 Red Blood Count 2.36 MIL/MM3 Hemoglobin 7.4 GM/DL Hematocrit 20.4 % Mean Corpuscular Volume 86.6 FL Mean Corpuscular Hemoglobin 31.4 PG Mean Corpuscular Hemoglobin Concent 36.2 % Red Cell Distribution Width 27.2 % Platelet Count 315 TH/MM3 Mean Platelet Volume 8.1 FL Neutrophils (%) (Auto) 45.6 % Lymphocytes (%) (Auto) 40.9 % Monocytes (%) (Auto) 10.7 % Eosinophils (%) (Auto) 2.0 % Basophils (%) (Auto) 0.8 % Neutrophils # (Auto) 4.6 TH/MM3 Lymphocytes # (Auto) 4.1 TH/MM3 Monocytes # (Auto) 1.1 TH/MM3 Eosinophils # (Auto) 0.2 TH/MM3 Basophils # (Auto) 0.1 TH/MM3 CBC Comment AUTO DIFF Differential Total Cells Counted 100 Neutrophils % (Manual) 36 % Lymphocytes % 54 % Monocytes % 5 % Eosinophils % 2 % Neutrophils # (Manual) 3.9 TH/MM3 Metamyelocytes 3 % Nucleated Red Blood Cells 16 /100 WBC Differential Comment FINAL DIFF MANUAL Platelet Estimate NORMAL Platelet Morphology Comment NORMAL Sickle Cells 3+ Blood Urea Nitrogen 4 MG/DL Creatinine 0.45 MG/DL Random Glucose 125 MG/DL Total Protein 8.0 GM/DL Albumin 3.7 GM/DL Calcium Level 8.7 MG/DL Alkaline Phosphatase 93 U/L Aspartate Amino Transf (AST/SGOT) 66 U/L Alanine Aminotransferase (ALT/SGPT) 10 U/L Total Bilirubin 3.4 MG/DL Sodium Level 140 MEQ/L Potassium Level 3.2 MEQ/L Chloride Level 106 MEQ/L Carbon Dioxide Level 26.9 MEQ/L Anion Gap 7 MEQ/L Estimat Glomerular Filtration Rate 194 ML/MIN MDM Medical Decision Making Medical Screen Exam Complete: Yes Emergency Medical Condition: Yes Medical Record Reviewed: Yes Differential Diagnosis Sickle cell pain crisis, versus viral syndrome, versus worsening anemia Narrative Course During the course of the patient's emergency department visit, the patient's history, examination, and differential diagnosis were reviewed with the patient. The patient was placed on a quality assurance monitor chassis with oximetry and frequent blood pressure monitoring. The patient had IV access obtained and blood work sent for analysis. The patient was initially provided hydromorphone 1 mg IV, Benadryl 25 mg IV, Zofran 4 mg IV, normal saline 1 L IV fluid bolus. The patient's laboratory studies were reviewed and remarkable for a white count of 10, hemoglobin 7.4 which is improved compared to previously at 6, platelets 315 with 54 lymphocytes, neutrophils 36, CMP is remarkable for a potassium of 3.2 which was supplemented orally. BUN 4, creatinine 0.45, glucose 125, AST 66. The patient was reexamined and reported that her pain level was down, however still not at her baseline, therefore the patient was given a second dose of hydromorphone, Benadryl, and Zofran. The patient on reexamination was feeling improved. The patient has a follow-up appointment already scheduled with Dr. Rivas on Friday for follow-up. The patient was given a prescription for potassium supplement to be completed over the next 3 days. The patient is resting comfortably and feels better, is alert and in no distress. The patient's results and examination findings were discussed with the patient. The repeat examination is unremarkable and benign. The history, exam, diagnostic testing, and current condition do not suggest any significant pathology to warrant further testing, continued ED treatment, admission, or surgical evaluation at this point. The vital signs have been stable. The patient does not have uncontrollable pain, intractable vomiting, or other significant symptoms. The patient's condition is stable and appropriate for discharge. The patient will pursue further outpatient evaluation with a primary care physician or other designated or consulting physician as indicated in the discharge instructions. The patient expressed understanding and was agreeable with this plan. Diagnosis Primary Impression: Sickle cell crisis Additional Impression: Hypokalemia Referrals: Primary Care Physician 1 day Patient Instructions: General Instructions, Hypokalemia (ED), Sickle Cell Crisis (ED) Med/Other Pt SpecificInfo: Prescription(s) given Scripts Potassium Chloride ER (K-Tab) 20 Meq Tab 20 MEQ PO BID for Electrolyte Replacement for 3 Days, #6 TAB 0 Refills Prov: Mignon Lin MD 06/17/17 Disposition: 01 DISCHARGE HOME Condition: Stable Mignon Lin MD Jun 17, 2017 03:36
[2017-06-17] MEDS ORDERED: POTA1TAB4 PO (03:59)
[2017-06-17] MEDS ORDERED: POTASSIUM CHLORIDE 20 MEQ CONTROLLED RELEASE TAB PO ONE (04:00)
[2017-06-17 04:14] VITALS: BP 101/56; PULSE 80; RESP 16; O2SAT 97
[2017-06-17] MEDS ORDERED: ONDANSETRON HCL 4 MG/2 ML VIAL IV PUSH ONE (04:30)
== END 2017-06-17 05:03 | disposition home or self-care (01) ==
LOC: NEPE 02:07
DX: D57.00 Hb-SS disease with crisis, unspecified (principal); E87.6 Hypokalemia
CPT/HCPCS: 80053; 85007; 85027; 96374; 96375; 96376; 99284; J1170; J1200; J1642; J2405; J7030

== ENCOUNTER 2017-06-27 05:57 | Inpatient (IN) | payer OTHER ==
[2017-06-27] VITALS (14 sets, daily range): BP systolic 96–119; BP diastolic 56–74; PULSE 78–98; RESP 15–20; TEMP 97.8–98.8; O2SAT 91–99
[~2017-06-27] VITALS: Ht 152.4 cm; Wt 57.0 kg
[~2017-06-27 05:57] MED LIST changes: -HYDR500C PO; +POTA1TAB4 PO
[2017-06-27] MEDS ORDERED: SODIUM CHLOR 0.9% 1000 ML INJ 1,000 ML IV ONE (06:08)
[2017-06-27] MEDS ORDERED: ONDANSETRON HCL 4 MG/2 ML VIAL IVP ONE (06:15)
[2017-06-27] MEDS ORDERED: MAGNESIUM SULFATE 1 GM PREMIX 100 ML IV ONE (06:45)
--- NOTE | 2017-06-27 06:48 | RADRPT ---
EXAM DATE/TIME: 06/27/2017 06:29 [facility] COMPARISON: CHEST SINGLE AP, June 12, 2017, 5:13. INDICATIONS : Shortness of breath. MEDICAL HISTORY : Sickle cell disease. SURGICAL HISTORY : Infusaport. ENCOUNTER: Initial ACUITY: 1 day PAIN SCORE: Non-responsive. LOCATION: chest FINDINGS: The lungs are clear without infiltrate, nodule, or mass. There is no appreciable pleural effusion fo r technique. Heart and mediastinum are unremarkable. Right subclavian [id number] is present with tip overlapping the expected region of the SVC. CONCLUSION: No acute cardiopulmonary disease. Khadar Delgado MD on June 27, 2017 at 6:47 Board Certified Radiologist. This report was verified electronically.
--- NOTE | 2017-06-27 06:53 | PD ---
HPI Chief Complaint: Sickle Cell Time Seen by Provider: 06:12 Travel History International Travel<30 days: No Contact w/Intl Traveler<30days: No Traveled to known affect area: No History of Present Illness HPI well known patient with h/o sickle cell (8 visits since May 2017) . patient comes in c/o generalized body aches c/w her sickle cell pain crisis...states that she is on her menses and is heavier than usual. last hb 7 per patient and she has followup appointment with her medical record specialist dr saba. denies any alleviating/aggravating factors. denies assoc factors such as fever/cp/bah/n/v/d /rash at this point all:morphine pmhs: htn, sickle cell has a chest port for it. anemia pshx:btl, cholecystectomy PFSH Past Medical History Hx Anticoagulant Therapy: No Anemia: Yes Arthritis: No Asthma: No Autoimmune Disease: No Blood Disorders: Yes (sickle cell disease) Anxiety: No Depression: No Heart Rhythm Problems: No Cancer: No Cardiovascular Problems: No High Cholesterol: No Chemotherapy: No Chest Pain: No Congestive Heart Failure: No COPD: No Cerebrovascular Accident: No Diabetes: No Diminished Hearing: No Endocrine: No Gastrointestinal Disorders: Yes (GALLSTONES) GERD: No Genitourinary: No Headaches: Yes Hiatal Hernia: No Heparin Induced Thrombocytopen: No Immune Disorder: No Implanted Vascular Access Dvce: Yes (RIGHT CHEST ) Insomnia: Yes Kidney Stones: Yes Musculoskeletal: No Neurologic: No Psychiatric: No Reproductive: No Respiratory: No Immunizations Current: Yes Migraines: No Pneumonia: Yes Radiation Therapy: No Renal Failure: No Seizures: No Sickle Cell Disease: Yes Sleep Apnea: No Thyroid Disease: No Ulcer: No Tetanus Vaccination: < 5 Years Influenza Vaccination: Yes PNEUMOCCOCAL Vaccine (Year): 2 ?: Not LMP: 06/27/17 : 2 Para: 1 Miscarriage: 1 : 0 Tubal Ligation: Yes Past Surgical History Abdominal Surgery: Yes AICD: No Arteriovenous Shunt: No Body Medical Devices: right chest port Cardiac Surgery: No Section: Yes (X 1) Cholecystectomy: Yes Ear Surgery: No Endocrine Surgery: No Eye Surgery: No Genitourinary Surgery: No Gynecologic Surgery: Yes (tubal ligation) Hysterectomy: No Insulin Pump: No Joint Replacement: No Oral Surgery: Yes Pacemaker: No Thoracic Surgery: Yes (CHEST PORT ) Tonsillectomy: Yes Other Surgery: Yes (right chest port) Social History Alcohol Use: No Tobacco Use: No Substance Use: No Allergies-Medications (Allergen,Severity, Reaction): Coded Allergies: morphine (Verified Allergy, Severe, RASH, 06/17/17) *MDRO Multi-Drug Resistant Organism (Verified Adverse Reaction, Unknown, MRSA, 05/24/17) MRSA (blood) - 12/18/2004 MRSA PCR screen NEGATIVE 08/27/16 & 09/21/16 Cleared per Infection Control Reported Meds & Prescriptions Reported Meds & Active Scripts Active K-Tab (Potassium Chloride) 20 Meq Tab 20 Meq PO BID 3 Days Hydrocodone-Acetaminophen 10-325 mg Tab 1 Tab PO Q6H PRN Reported Folic Acid 0.4 Mg Tab 400 Mcg PO DAILY Review of Systems Except as stated in HPI: all other systems reviewed are Neg General / Constitutional: No: Fever Eyes: No: Visual changes HENT: No: Headaches Cardiovascular: No: Chest Pain or Discomfort Respiratory: No: Shortness of Breath Gastrointestinal: No: Abdominal Pain Genitourinary: No: Dysuria Musculoskeletal: Positive: Pain (generalized c/w sickle cell) Skin: No Rash Neurologic: No: Weakness Psychiatric: No: Depression Endocrine: No: Polydipsia Hematologic/Lymphatic: No: Easy Bruising Physical Exam Narrative GENERAL: SKIN: Warm and dry. HEAD: Atraumatic. Normocephalic. EYES: Pupils equal and round. No scleral icterus. No injection or drainage. mild conjunctival icterus. ENT: No nasal bleeding or discharge. Mucous membranes pink and moist. NECK: Trachea midline. No JVD. CARDIOVASCULAR: Regular rate and rhythm. RESPIRATORY: No accessory muscle use. Clear to auscultation. Breath sounds equal bilaterally. chest port on right side. GASTROINTESTINAL: Abdomen soft, non-tender, nondistended. Hepatic and splenic margins not palpable. MUSCULOSKELETAL: Extremities without clubbing, cyanosis, or edema. No obvious deformities. NEUROLOGICAL: Awake and alert. No obvious cranial nerve deficits. Motor grossly within normal limits. Five out of 5 muscle strength in the arms and legs. Normal speech. PSYCHIATRIC: Appropriate mood and affect; insight and judgment normal. Data Data Last Documented VS Vital Signs Date Time Temp Pulse Resp B/P (MAP) Pulse Ox O2 Delivery O2 Flow Rate FiO2 06/27/17 09:19 78 16 113/66 (82) 94 Nasal Cannula 1.00 06/27/17 05:59 98.7 Orders Orders Complete Blood Count With Diff (06/27/17 06:08) Comprehensive Metabolic Panel (06/27/17 06:08) Retic Count (06/27/17 06:08) Urinalysis - C+S If Indicated (06/27/17 06:08) Chest, Single Ap (06/27/17 06:08) Ecg Monitoring (06/27/17 06:08) Iv Access Insert/Monitor (06/27/17 06:08) Oximetry (06/27/17 06:08) Ondansetron Inj (Zofran Inj) (06/27/17 06:15) Sodium Chlor 0.9% 1000 Ml Inj (Ns 1000 M (06/27/17 06:08) Heparin Central Flush (Heparin Central F (06/27/17 06:15) Ldh Serum (06/27/17 06:08) Oxygen Administration (06/27/17 06:25) Magnesium Sulfate 1 Gm Premix (Magnesium (06/27/17 06:45) Ketorolac Inj (Toradol Inj) (06/27/17 07:45) Diphenhydramine (Benadryl) (06/27/17 08:15) Type And Screen (06/27/17 08:48) Red Blood Cells (Rbc) (06/27/17 08:48) Blood Product Administration (06/27/17 08:48) Sodium Chlor 0.9% 250 Ml Inj (Ns 250 Ml (06/27/17 09:00) Admit Order (Ed Use Only) (06/27/17 09:20) Labs Laboratory Tests Test 06/27/17 06:15 White Blood Count 10.2 TH/MM3 Red Blood Count 2.24 MIL/MM3 Hemoglobin 6.9 GM/DL Hematocrit 19.3 % Mean Corpuscular Volume 85.9 FL Mean Corpuscular Hemoglobin 30.8 PG Mean Corpuscular Hemoglobin Concent 35.8 % Red Cell Distribution Width 24.6 % Platelet Count 339 TH/MM3 Mean Platelet Volume 8.2 FL Neutrophils (%) (Auto) 45.1 % Lymphocytes (%) (Auto) 40.1 % Monocytes (%) (Auto) 11.4 % Eosinophils (%) (Auto) 2.8 % Basophils (%) (Auto) 0.6 % Neutrophils # (Auto) 4.6 TH/MM3 Lymphocytes # (Auto) 4.1 TH/MM3 Monocytes # (Auto) 1.2 TH/MM3 Eosinophils # (Auto) 0.3 TH/MM3 Basophils # (Auto) 0.1 TH/MM3 CBC Comment AUTO DIFF Differential Total Cells Counted 100 Neutrophils % (Manual) 50 % Band Neutrophils % 4 % Lymphocytes % 36 % Monocytes % 5 % Eosinophils % 2 % Basophils % 2 % Neutrophils # (Manual) 5.6 TH/MM3 Metamyelocytes 1 % Nucleated Red Blood Cells 6 /100 WBC Differential Comment FINAL DIFF MANUAL Platelet Estimate NORMAL Platelet Morphology Comment NORMAL Polychromasia 3.4 % Sickle Cells 2+ Reticulocyte Count 11.5 % Absolute Reticulocyte Count 257.8 MIL/L Urine Color YELLOW Urine Turbidity CLEAR Urine pH 7.0 Urine Specific [place] 1.008 Urine Protein NEG mg/dL Urine Glucose (UA) NEG mg/dL Urine Ketones NEG mg/dL Urine Occult Blood TRACE Urine Nitrite NEG Urine Bilirubin NEG Urine Urobilinogen 4.0 MG/DL Urine Leukocyte Esterase NEG Urine RBC LESS THAN 1 /hpf Urine WBC 1 /hpf Urine Squamous Epithelial Cells 2 /hpf Urine Bacteria RARE /hpf Microscopic Urinalysis Comment CULT NOT INDICATED Blood Urea Nitrogen 4 MG/DL Creatinine 0.42 MG/DL Random Glucose 91 MG/DL Total Protein 7.8 GM/DL Albumin 3.5 GM/DL Calcium Level 8.4 MG/DL Alkaline Phosphatase 82 U/L Aspartate Amino Transf (AST/SGOT) 65 U/L Alanine Aminotransferase (ALT/SGPT) 10 U/L Lactate Dehydrogenase 1186 U/L Total Bilirubin 2.9 MG/DL Sodium Level 141 MEQ/L Potassium Level 3.5 MEQ/L Chloride Level 110 MEQ/L Carbon Dioxide Level 24.4 MEQ/L Anion Gap 7 MEQ/L Estimat Glomerular Filtration Rate 210 ML/MIN MDM Medical Decision Making Medical Screen Exam Complete: Yes Emergency Medical Condition: Yes Medical Record Reviewed: Yes Differential Diagnosis chest syndrome v sickle cell v uti v pna Narrative Course patient is signed out to dr pearson pending lab results and disposition Diagnosis Primary Impression: Sickle cell crisis Yung Herr MD Jun 27, 2017 06:53
[2017-06-27 07:00] LABS: AUTOMATED NEUTROPHIL # 4.6 TH/MM3 (1.8-7.7); BASOPHIL # 0.1 TH/MM3 (0-0.2); BASOPHIL % 0.6 % (0.0-2.0); EOSINOPHIL # 0.3 TH/MM3 (0-0.4); EOSINOPHIL % 2.8 % (0.0-4.0); LYMPH % 40.1 % (9.0-44.0); LYMPHOCYTE # 4.1 TH/MM3 (1.0-4.8); MEAN CELL VOLUME 85.9 FL (80.0-100.0); MEAN CORPUSCULAR HEMOGLOBIN 30.8 PG (27.0-34.0); MEAN CORPUSCULAR HGB CONC 35.8 % (32.0-36.0); MEAN PLATELET VOLUME 8.2 FL (7.0-11.0); MONO % 11.4 % (0.0-8.0); MONOCYTE # 1.2 TH/MM3 (0-0.9); NEUT % 45.1 % (16.0-70.0); PLATELET COUNT 339 TH/MM3 (150-450); RED BLOOD COUNT 2.24 MIL/MM3 (4.00-5.30); RED CELL DISTRIBUTION WIDTH 24.6 % (11.6-17.2); RETIC # 257.8 MIL/L (20.0-150.0); RETIC % 11.5 % (0.4-3.0); WHITE BLOOD COUNT 10.2 TH/MM3 (4.0-11.0)
[2017-06-27 07:09] LABS: BACTERIA, URINE RARE /hpf; BILIRUBIN, URINE NEG (NEG); BLOOD, URINE TRACE (NEG); GLUCOSE,URINE NEG (NEG); KETONE, URINE NEG (NEG); NITRITE,URINE NEG (NEG); SQUAMOUS EPITHELIAL CELL URINE 2 /hpf (0-5); URINE COLOR YELLOW (YELLW/STRAW); URINE LEUKOCYTE ESTERASE NEG (NEG)
[2017-06-27 07:10] LABS: HEMATOCRIT 19.3 % (35.0-46.0); HEMOGLOBIN 6.9 GM/DL (11.6-15.3)
[2017-06-27 07:35] LABS: ALBUMIN 3.5 GM/DL (3.4-5.0); ALKALINE PHOSPHATASE 82 U/L (45-117); ALT (GPT) 10 U/L (10-53); AST (GOT) 65 U/L (15-37); BICARBONATE 24.4 MEQ/L (21.0-32.0); BLOOD UREA NITROGEN 4 MG/DL (7-18); CALCIUM 8.4 MG/DL (8.5-10.1); CHLORIDE 110 MEQ/L (98-107); CREATININE 0.42 MG/DL (0.50-1.00); GLOMERULAR FILTRATION RATE 210 ML/MIN (>89); GLUCOSE,RANDOM 91 MG/DL (74-106); SODIUM (NA) 141 MEQ/L (136-145); TOTAL BILIRUBIN ADULT 2.9 MG/DL (0.2-1.0); TOTAL PROTEIN 7.8 GM/DL (6.4-8.2)
[2017-06-27] MEDS ORDERED: KETOROLAC TROMETHAMINE 30 MG/ML (IVP) VIAL IV PUSH ONE (07:45)
[2017-06-27 08:00] LABS: BANDS 4 % (0-6); BASOPHILS 2 % (0-2); CORRECTED NUCLEATED RBC 6 /100 WBC (0-0); LYMPHOCYTES 36 % (9-44); METAMYELOCYTES 1 % (0-1); MONOCYTES 5 % (0-8); NEUTROPHIL # MANUAL DIFF 5.6 TH/MM3 (1.8-7.7); NUCLEATED RED BLOOD CELL 6 (0-0); POLYCHROMASIA 3.4 % (0.0-1.9); POLYS (SEG NEUTROPHILS) 50 % (16-70); SICKLE CELLS 2+ (NORMAL)
[2017-06-27] MEDS ORDERED: diphenhydrAMINE HCL 50 MG CAP PO ONE (08:15)
--- NOTE | 2017-06-27 08:51 | PD ---
Data Data Last Documented VS Vital Signs Date Time Temp Pulse Resp B/P (MAP) Pulse Ox O2 Delivery O2 Flow Rate FiO2 06/27/17 08:01 93 Room Air 06/27/17 06:25 86 18 100/62 (75) 06/27/17 05:59 98.7 Orders Orders Complete Blood Count With Diff (06/27/17 06:08) Comprehensive Metabolic Panel (06/27/17 06:08) Retic Count (06/27/17 06:08) Urinalysis - C+S If Indicated (06/27/17 06:08) Chest, Single Ap (06/27/17 06:08) Ecg Monitoring (06/27/17 06:08) Iv Access Insert/Monitor (06/27/17 06:08) Oximetry (06/27/17 06:08) Ondansetron Inj (Zofran Inj) (06/27/17 06:15) Sodium Chlor 0.9% 1000 Ml Inj (Ns 1000 M (06/27/17 06:08) Heparin Central Flush (Heparin Central F (06/27/17 06:15) Ldh Serum (06/27/17 06:08) Oxygen Administration (06/27/17 06:25) Magnesium Sulfate 1 Gm Premix (Magnesium (06/27/17 06:45) Ketorolac Inj (Toradol Inj) (06/27/17 07:45) Diphenhydramine (Benadryl) (06/27/17 08:15) Type And Screen (06/27/17 08:48) Red Blood Cells (Rbc) (06/27/17 08:48) Blood Product Administration (06/27/17 08:48) Sodium Chlor 0.9% 250 Ml Inj (Ns 250 Ml (06/27/17 09:00) Labs Laboratory Tests Test 06/27/17 06:15 White Blood Count 10.2 TH/MM3 Red Blood Count 2.24 MIL/MM3 Hemoglobin 6.9 GM/DL Hematocrit 19.3 % Mean Corpuscular Volume 85.9 FL Mean Corpuscular Hemoglobin 30.8 PG Mean Corpuscular Hemoglobin Concent 35.8 % Red Cell Distribution Width 24.6 % Platelet Count 339 TH/MM3 Mean Platelet Volume 8.2 FL Neutrophils (%) (Auto) 45.1 % Lymphocytes (%) (Auto) 40.1 % Monocytes (%) (Auto) 11.4 % Eosinophils (%) (Auto) 2.8 % Basophils (%) (Auto) 0.6 % Neutrophils # (Auto) 4.6 TH/MM3 Lymphocytes # (Auto) 4.1 TH/MM3 Monocytes # (Auto) 1.2 TH/MM3 Eosinophils # (Auto) 0.3 TH/MM3 Basophils # (Auto) 0.1 TH/MM3 CBC Comment AUTO DIFF Differential Total Cells Counted 100 Neutrophils % (Manual) 50 % Band Neutrophils % 4 % Lymphocytes % 36 % Monocytes % 5 % Eosinophils % 2 % Basophils % 2 % Neutrophils # (Manual) 5.6 TH/MM3 Metamyelocytes 1 % Nucleated Red Blood Cells 6 /100 WBC Differential Comment FINAL DIFF MANUAL Platelet Estimate NORMAL Platelet Morphology Comment NORMAL Polychromasia 3.4 % Sickle Cells 2+ Reticulocyte Count 11.5 % Absolute Reticulocyte Count 257.8 MIL/L Urine Color YELLOW Urine Turbidity CLEAR Urine pH 7.0 Urine Specific [place] 1.008 Urine Protein NEG mg/dL Urine Glucose (UA) NEG mg/dL Urine Ketones NEG mg/dL Urine Occult Blood TRACE Urine Nitrite NEG Urine Bilirubin NEG Urine Urobilinogen 4.0 MG/DL Urine Leukocyte Esterase NEG Urine RBC LESS THAN 1 /hpf Urine WBC 1 /hpf Urine Squamous Epithelial Cells 2 /hpf Urine Bacteria RARE /hpf Microscopic Urinalysis Comment CULT NOT INDICATED Blood Urea Nitrogen 4 MG/DL Creatinine 0.42 MG/DL Random Glucose 91 MG/DL Total Protein 7.8 GM/DL Albumin 3.5 GM/DL Calcium Level 8.4 MG/DL Alkaline Phosphatase 82 U/L Aspartate Amino Transf (AST/SGOT) 65 U/L Alanine Aminotransferase (ALT/SGPT) 10 U/L Lactate Dehydrogenase 1186 U/L Total Bilirubin 2.9 MG/DL Sodium Level 141 MEQ/L Potassium Level 3.5 MEQ/L Chloride Level 110 MEQ/L Carbon Dioxide Level 24.4 MEQ/L Anion Gap 7 MEQ/L Estimat Glomerular Filtration Rate 210 ML/MIN [facility] Supervised Visit with KYE: No Narrative Course The patient was initially evaluated by the previous provider and sent out to me at the beginning my shift at approximately 7:00 AM pending labs and disposition. See his note for further details. Briefly this a 31-year-old female with history of sickle cell anemia here with complaints of pain that is typical for sickle cell crisis. Symptoms have been going on since Friday. Patient reports heavy menstrual period which usually triggers for sickle cell pain. No chest pain or dyspnea. Chest x-ray shows no acute disease. CBC is remarkable for hemoglobin 6.9, hematocrit 19. LDH is 1184. Reticulocyte count is 11.5%. On my assessment the patient is resting comfortably and is not in any acute distress. She was provided IV fluids by the previous provider. She is requesting a dose of Toradol. She also would like to be transfused. I was unable to get in touch with the patient's appeals officer Dr. Rivas as he is out of town. I discussed the case with our appeals officer Dr. Guerrero who does recommend transfusion of 1 unit of packed red blood cells. Transfusion will be ordered and the patient will be admitted for overnight observation. Case discussed with er medical technician Dr. Lemos. The patient will be admitted to their service under Dr. Bueno. Diagnosis Primary Impression: Sickle cell crisis Additional Impression: Anemia Qualified Codes: D64.9 - Anemia, unspecified Mitchell Bonds MD Jun 27, 2017 08:51
[2017-06-27] MEDS ORDERED: SODIUM CHLOR 0.9% 250 ML INJ 250 ML IV ONE (09:00)
--- NOTE | 2017-06-27 09:50 | HHI.HP ---
HPI Service Family Medicine Primary Care Physician Unknown Admission Diagnosis sickle cell pain crisis, anemia Diagnoses: International Travel<30 Days: No Contact w/Intl Traveler<30days: No Known Affected Area: No History of Present Illness 31 y/o F, LMP 2, hx of multiple sickle cell pain crisis during menstruation, started experiencing abdominal pain, N/V, sweats/chills since yesterday. She had to leave work because of the severe symptoms and she started drinking as much fluid as possible when she got home. But the pain kept increasing to a point that was intolerable. The pain is worst in the knees, lower back, and elbows and is 9/10 right now after Toradol. She tried her Lortab 10 for the pain at home but it did not do anything. Her nausea has been alleviated by zofran in the ED. This commonly happens during menstruation. She has severe periods and experiences pain during every cycle. She comes to the ED and gets fluids, gets the pain and nausea under control, but she frequently will AMA because she hates being in the hospital. She has had a heavy period than usual with this cycle, and has had severe cramps and clotting. She has had some mild chest pain, but she states this is normal for her when the sickle cell is bad. Denies any SOB/fevers. She called her heme , but he is not senior telecommunications technician right now. Another doctor answered and knows that she is here. In general, she has spoken with her Heme to see if there is anything else she can do about the monthly exacerbations during menstruation. She has tried Depo, which did not help. Review of Systems Constitutional: DENIES: Weight loss, Chills Endocrine: DENIES: Polydipsia, Polyuria Eyes: DENIES: Diplopia, Vision loss Ears, nose, mouth, throat: DENIES: Oral lesions, Throat pain Respiratory: DENIES: Snoring, Wheezing Cardiovascular: DENIES: Dyspnea on Exertion, PND Gastrointestinal: COMPLAINS OF: Diarrhea (some yesterday), DENIES: Constipation Genitourinary: DENIES: Dysmenorrhea, Dyspareunia Musculoskeletal: DENIES: Muscle aches, Stiffness Integumentary: DENIES: Nail changes, Breast masses Hematologic/lymphatic: DENIES: Lymphadenopathy Immunologic/allergic: DENIES: Urticaria Neurologic: DENIES: Paresthesias, Seizures Psychiatric: DENIES: Depression Past Family Social History Past Medical History Past Medical History Sickled Cell Disease - diagnosed at 1 years old, hx per HPI Multiple blood transfusions -2-3x/year, last transfused in February 2018 on our service Past Surgical History Tubal ligation [id number] placement : 2005 Cholecystectomy 1994 Family History sister- sickle cell parents- sickle cell trait Social History denies smoking, drinking, drugs social: school and work, lives at home with son Allergies: Coded Allergies: morphine (Verified Allergy, Severe, RASH, 06/17/17) *MDRO Multi-Drug Resistant Organism (Verified Adverse Reaction, Unknown, MRSA, 05/24/17) MRSA (blood) - 12/18/2004 MRSA PCR screen NEGATIVE 08/27/16 & 09/21/16 Cleared per Infection Control Physical Exam Vital Signs Vital Signs Date Time Temp Pulse Resp B/P (MAP) Pulse Ox O2 Delivery O2 Flow Rate FiO2 06/27/17 09:19 78 16 113/66 (82) 94 Nasal Cannula 1.00 06/27/17 08:01 93 Room Air 06/27/17 06:25 86 18 100/62 (75) 94 Room Air 06/27/17 06:25 90 18 94 Room Air 06/27/17 06:18 98 Room Air 06/27/17 05:59 98.7 98 16 115/56 (75) 95 Room Air Physical Exam GENERAL: This is a well-nourished, well-developed patient, in no apparent distress. SKIN: No rashes, ecchymoses or lesions. Cool and dry. HEAD: Atraumatic. Normocephalic. No temporal or scalp tenderness. EYES: Pupils equal round and reactive. Extraocular motions intact. No scleral icterus. No injection or drainage. ENT: Nose without bleeding, purulent drainage or septal hematoma. Throat without erythema, tonsillar hypertrophy or exudate. Uvula midline. Airway patent. NECK: Trachea midline. No JVD or lymphadenopathy. Supple, nontender, no meningeal signs. CARDIOVASCULAR: Regular rate and rhythm without murmurs, gallops, or rubs. RESPIRATORY: Clear to auscultation. Breath sounds equal bilaterally. No wheezes , rales, or rhonchi. GASTROINTESTINAL: Abdomen soft, non-tender, nondistended. No hepato-splenomegaly , or palpable masses. No guarding. MUSCULOSKELETAL: Extremities without clubbing, cyanosis, or edema. No joint tenderness, effusion, or edema noted. No calf tenderness. Negative Homans sign bilaterally. NEUROLOGICAL: Awake and alert. Cranial nerves II through XII intact. Motor and sensory grossly within normal limits. Five out of 5 muscle strength in all muscle groups. Normal speech. Laboratory Laboratory Tests Test 06/27/17 06:15 White Blood Count 10.2 Red Blood Count 2.24 Hemoglobin 6.9 Hematocrit 19.3 Mean Corpuscular Volume 85.9 Mean Corpuscular Hemoglobin 30.8 Mean Corpuscular Hemoglobin Concent 35.8 Red Cell Distribution Width 24.6 Platelet Count 339 Mean Platelet Volume 8.2 Neutrophils (%) (Auto) 45.1 Lymphocytes (%) (Auto) 40.1 Monocytes (%) (Auto) 11.4 Eosinophils (%) (Auto) 2.8 Basophils (%) (Auto) 0.6 Neutrophils # (Auto) 4.6 Lymphocytes # (Auto) 4.1 Monocytes # (Auto) 1.2 Eosinophils # (Auto) 0.3 Basophils # (Auto) 0.1 CBC Comment AUTO DIFF Differential Total Cells Counted 100 Neutrophils % (Manual) 50 Band Neutrophils % 4 Lymphocytes % 36 Monocytes % 5 Eosinophils % 2 Basophils % 2 Neutrophils # (Manual) 5.6 Metamyelocytes 1 Nucleated Red Blood Cells 6 Differential Comment FINAL DIFF MANUAL Platelet Estimate NORMAL Platelet Morphology Comment NORMAL Polychromasia 3.4 Sickle Cells 2+ Reticulocyte Count 11.5 Absolute Reticulocyte Count 257.8 Urine Color YELLOW Urine Turbidity CLEAR Urine pH 7.0 Urine Specific [place] 1.008 Urine Protein NEG Urine Glucose (UA) NEG Urine Ketones NEG Urine Occult Blood TRACE Urine Nitrite NEG Urine Bilirubin NEG Urine Urobilinogen 4.0 Urine Leukocyte Esterase NEG Urine RBC LESS THAN 1 Urine WBC 1 Urine Squamous Epithelial Cells 2 Urine Bacteria RARE Microscopic Urinalysis Comment CULT NOT INDICATED Blood Urea Nitrogen 4 Creatinine 0.42 Random Glucose 91 Total Protein 7.8 Albumin 3.5 Calcium Level 8.4 Alkaline Phosphatase 82 Aspartate Amino Transf (AST/SGOT) 65 Alanine Aminotransferase (ALT/SGPT) 10 Lactate Dehydrogenase 1186 Total Bilirubin 2.9 Sodium Level 141 Potassium Level 3.5 Chloride Level 110 Carbon Dioxide Level 24.4 Anion Gap 7 Estimat Glomerular Filtration Rate 210 Result Diagram: 06/27/1761406/27/1715 Caprini VTE Risk Assessment Caprini Risk Assessment Model Point Value = 1 Point Value = 2 Point Value = 3 Point Value = 5 Age 41-60 Minor surgery BMI > 25 kg/m2 Swollen legs Varicose veins or History of unexplained or recurrent spontaneous Oral contraceptives or hormone replacement Sepsis (< 1 month) Serious lung disease, including pneumonia (< 1 month) Abnormal pulmonary function Acute myocardial infarction Congestive heart failure (< 1 month) History of inflammatory bowel disease Medical patient at bed rest Age 61-74 Arthroscopic surgery Major open surgery (> 45 min) Laparoscopic surgery (> 45 min) Malignancy Confined to bed (> 72 hours) Immobilizing plaster cast Central venous access Age >= 75 History of VTE Family history of VTE Factor V Leiden Prothrombin [id number] Lupus anticoagulant Anticardiolipin antibodies Elevated serum homocysteine Heparin-induced thrombocytopenia Other congenital or acquired thrombophilia Stroke (< 1 month) Elective arthroplasty Hip, pelvis, or leg fracture Acute spinal cord injury (< 1 month) Prophylaxis Regimen Total Risk Factor Score Risk Level Prophylaxis Regimen 0-1 Low Early ambulation 2 Moderate Order ONE of the following: *Sequential Compression Device (SCD) *Heparin 5000 units SQ BID 3-4 Higher Order ONE of the following medications: *Heparin 5000 units SQ TID *Enoxaparin/Lovenox 40 mg SQ daily (WT < 150 kg, CrCl > 30 mL/min) *Enoxaparin/Lovenox 30 mg SQ daily (WT < 150 kg, CrCl > 10-29 mL/min) *Enoxaparin/Lovenox 30 mg SQ BID (WT < 150 kg, CrCl > 30 mL/min) AND/OR *Sequential Compression Device (SCD) 5 or more Highest Order ONE of the following medications: *Heparin 5000 units SQ TID (Preferred with Epidurals) *Enoxaparin/Lovenox 40 mg SQ daily (WT < 150 kg, CrCl > 30 mL/min) *Enoxaparin/Lovenox 30 mg SQ daily (WT < 150 kg, CrCl > 10-29 mL/min) *Enoxaparin/Lovenox 30 mg SQ BID (WT < 150 kg, CrCl > 30 mL/min) AND *Sequential Compression Device (SCD) Physician Certification Order for Inpatient Services The services are ordered in accordance with Medicare regulations or non- Medicare payer requirements, as applicable. In the case of services not specified as inpatient-only, they are appropriately provided as inpatient services in accordance with the 2-midnight benchmark. days is the estimated time the patient will need to remain in the hospital, assuming treatment plan goals are met and no additional complications. Osmin Monte MD R1 Jun 27, 2017 09:50
--- NOTE | 2017-06-27 10:05 | HHI.HP ---
HPI Service Family Medicine Primary Care Physician Unknown Admission Diagnosis sickle cell pain crisis, anemia Diagnoses: International Travel<30 Days: No Contact w/Intl Traveler<30days: No Known Affected Area: No History of Present Illness 31 y/o F, LMP 2, hx of multiple sickle cell pain crisis during menstruation, started experiencing abdominal pain, N/V, sweats/chills since yesterday. She had to leave work because of the severe symptoms and she started drinking as much fluid as possible when she got home. But the pain kept increasing to a point that was intolerable. The pain is worst in the knees, lower back, and elbows and is 9/10 right now after Toradol. She tried her Lortab 10 for the pain at home but it did not do anything. Her nausea has been alleviated by zofran in the ED. This commonly happens during menstruation. She has severe periods and experiences pain during every cycle. She regularly comes to the ED and gets fluids, gets the pain and nausea under control, but she frequently will AMA because she hates being in the hospital. She has had a heavier period than usual with this cycle, and has had severe cramps and clotting. She has had some mild chest pain, but she states this is normal for her when the sickle cell is bad. Denies any SOB/fevers. She called her heme , but he is not physicians and surgeons right now. Another doctor answered (presumably ) and knows that she is here. In general, she has spoken with her Heme to see if there is anything else she can do about the monthly exacerbations during menstruation. She has tried Depo, which did not help. Review of Systems Constitutional: DENIES: Fever, Weight gain Endocrine: DENIES: Polydipsia, Polyuria Eyes: DENIES: Eye inflammation, Eye pain Ears, nose, mouth, throat: DENIES: Oral lesions, Throat pain Respiratory: DENIES: Snoring, Wheezing Cardiovascular: DENIES: Dyspnea on Exertion, PND Gastrointestinal: COMPLAINS OF: Diarrhea (yesterday) Genitourinary: DENIES: Dyspareunia, Sexual dysfunction Musculoskeletal: DENIES: Joint Swelling Immunologic/allergic: DENIES: Urticaria Neurologic: DENIES: Headache, Localized weakness Psychiatric: DENIES: Depression Past Family Social History Past Medical History Sickled Cell Disease - diagnosed at 1 years old, hx per HPI Multiple blood transfusions -2-3x/year, last transfused in February 2018 on our service Past Surgical History Tubal ligation [id number] placement : 2005 Cholecystectomy 1994 Allergies: Coded Allergies: morphine (Verified Allergy, Severe, RASH, 06/17/17) *MDRO Multi-Drug Resistant Organism (Verified Adverse Reaction, Unknown, MRSA, 05/24/17) MRSA (blood) - 12/18/2004 MRSA PCR screen NEGATIVE 08/27/16 & 09/21/16 Cleared per Infection Control Family History sister- sickle cell parents- sickle cell trait Social History denies smoking, drinking, drugs social: school and work, lives at home with son Physical Exam Vital Signs Vital Signs Date Time Temp Pulse Resp B/P (MAP) Pulse Ox O2 Delivery O2 Flow Rate FiO2 06/27/17 09:19 78 16 113/66 (82) 94 Nasal Cannula 1.00 06/27/17 08:01 93 Room Air 06/27/17 06:25 86 18 100/62 (75) 94 Room Air 06/27/17 06:25 90 18 94 Room Air 06/27/17 06:18 98 Room Air 06/27/17 05:59 98.7 98 16 115/56 (75) 95 Room Air Physical Exam GENERAL: This is a well-nourished, well-developed patient, in no apparent distress. SKIN: No rashes, ecchymoses or lesions. Cool and dry. HEAD: Atraumatic. Normocephalic. No temporal or scalp tenderness. EYES: Pupils equal round and reactive. Extraocular motions intact. No scleral icterus. No injection or drainage. ENT: Nose without bleeding, purulent drainage or septal hematoma. Throat without erythema, tonsillar hypertrophy or exudate. Uvula midline. Airway patent. NECK: Trachea midline. No JVD or lymphadenopathy. Supple, nontender, no meningeal signs. CARDIOVASCULAR: Regular rate and rhythm without murmurs, gallops, or rubs. RESPIRATORY: Clear to auscultation. Breath sounds equal bilaterally. No wheezes , rales, or rhonchi. GASTROINTESTINAL: Abdomen soft, non-tender, nondistended. No hepato-splenomegaly , or palpable masses. No guarding. MUSCULOSKELETAL: Extremities without clubbing, cyanosis, or edema. No joint tenderness, effusion, or edema noted. No calf tenderness. Negative Homans sign bilaterally. NEUROLOGICAL: Awake and alert. Cranial nerves II through XII intact. Motor and sensory grossly within normal limits. Five out of 5 muscle strength in all muscle groups. Normal speech. Laboratory Laboratory Tests Test 06/27/17 06:15 White Blood Count 10.2 Red Blood Count 2.24 Hemoglobin 6.9 Hematocrit 19.3 Mean Corpuscular Volume 85.9 Mean Corpuscular Hemoglobin 30.8 Mean Corpuscular Hemoglobin Concent 35.8 Red Cell Distribution Width 24.6 Platelet Count 339 Mean Platelet Volume 8.2 Neutrophils (%) (Auto) 45.1 Lymphocytes (%) (Auto) 40.1 Monocytes (%) (Auto) 11.4 Eosinophils (%) (Auto) 2.8 Basophils (%) (Auto) 0.6 Neutrophils # (Auto) 4.6 Lymphocytes # (Auto) 4.1 Monocytes # (Auto) 1.2 Eosinophils # (Auto) 0.3 Basophils # (Auto) 0.1 CBC Comment AUTO DIFF Differential Total Cells Counted 100 Neutrophils % (Manual) 50 Band Neutrophils % 4 Lymphocytes % 36 Monocytes % 5 Eosinophils % 2 Basophils % 2 Neutrophils # (Manual) 5.6 Metamyelocytes 1 Nucleated Red Blood Cells 6 Differential Comment FINAL DIFF MANUAL Platelet Estimate NORMAL Platelet Morphology Comment NORMAL Polychromasia 3.4 Sickle Cells 2+ Reticulocyte Count 11.5 Absolute Reticulocyte Count 257.8 Urine Color YELLOW Urine Turbidity CLEAR Urine pH 7.0 Urine Specific [place] 1.008 Urine Protein NEG Urine Glucose (UA) NEG Urine Ketones NEG Urine Occult Blood TRACE Urine Nitrite NEG Urine Bilirubin NEG Urine Urobilinogen 4.0 Urine Leukocyte Esterase NEG Urine RBC LESS THAN 1 Urine WBC 1 Urine Squamous Epithelial Cells 2 Urine Bacteria RARE Microscopic Urinalysis Comment CULT NOT INDICATED Blood Urea Nitrogen 4 Creatinine 0.42 Random Glucose 91 Total Protein 7.8 Albumin 3.5 Calcium Level 8.4 Alkaline Phosphatase 82 Aspartate Amino Transf (AST/SGOT) 65 Alanine Aminotransferase (ALT/SGPT) 10 Lactate Dehydrogenase 1186 Total Bilirubin 2.9 Sodium Level 141 Potassium Level 3.5 Chloride Level 110 Carbon Dioxide Level 24.4 Anion Gap 7 Estimat Glomerular Filtration Rate 210 Result Diagram: 06/27/1761406/27/17614 Septic Shock Reassessment Septic shock perfusion: reassessment completed Caprini VTE Risk Assessment Caprini VTE Risk Assessment: No/Low Risk (score <= 1) Caprini Risk Assessment Model Point Value = 1 Point Value = 2 Point Value = 3 Point Value = 5 Age 41-60 Minor surgery BMI > 25 kg/m2 Swollen legs Varicose veins or History of unexplained or recurrent spontaneous Oral contraceptives or hormone replacement Sepsis (< 1 month) Serious lung disease, including pneumonia (< 1 month) Abnormal pulmonary function Acute myocardial infarction Congestive heart failure (< 1 month) History of inflammatory bowel disease Medical patient at bed rest Age 61-74 Arthroscopic surgery Major open surgery (> 45 min) Laparoscopic surgery (> 45 min) Malignancy Confined to bed (> 72 hours) Immobilizing plaster cast Central venous access Age >= 75 History of VTE Family history of VTE Factor V Leiden Prothrombin [id number] Lupus anticoagulant Anticardiolipin antibodies Elevated serum homocysteine Heparin-induced thrombocytopenia Other congenital or acquired thrombophilia Stroke (< 1 month) Elective arthroplasty Hip, pelvis, or leg fracture Acute spinal cord injury (< 1 month) Prophylaxis Regimen Total Risk Factor Score Risk Level Prophylaxis Regimen 0-1 Low Early ambulation 2 Moderate Order ONE of the following: *Sequential Compression Device (SCD) *Heparin 5000 units SQ BID 3-4 Higher Order ONE of the following medications: *Heparin 5000 units SQ TID *Enoxaparin/Lovenox 40 mg SQ daily (WT < 150 kg, CrCl > 30 mL/min) *Enoxaparin/Lovenox 30 mg SQ daily (WT < 150 kg, CrCl > 10-29 mL/min) *Enoxaparin/Lovenox 30 mg SQ BID (WT < 150 kg, CrCl > 30 mL/min) AND/OR *Sequential Compression Device (SCD) 5 or more Highest Order ONE of the following medications: *Heparin 5000 units SQ TID (Preferred with Epidurals) *Enoxaparin/Lovenox 40 mg SQ daily (WT < 150 kg, CrCl > 30 mL/min) *Enoxaparin/Lovenox 30 mg SQ daily (WT < 150 kg, CrCl > 10-29 mL/min) *Enoxaparin/Lovenox 30 mg SQ BID (WT < 150 kg, CrCl > 30 mL/min) AND *Sequential Compression Device (SCD) Assessment and Plan Assessment and Plan 31-year-old female, history of monthly sickle cell exacerbations with menstruation, presents with symptomatic anemia and sickle cell crisis. Code Status Full code Problem List: (1) Sickle cell crisis ICD Codes: D57.00 - Sickle cell crisis Status: Acute Plan: Pain crisis associated with acute anemia, no indication of acute chest syndrome at this time Chest x-ray normal, afebrile Follow-up influenza rapid test Pain management : History of opioid medication abuse, history of high opioid dependence and tolerance Ibuprofen Dilaudid 1 mg IV every 3 hours for pain 3-5 Dilaudid 2 mg IV every 3 hours pain 6-10 Benadryl 25 mg IV Transfusion: Anemia related to menstruation, patient is demanding transfusion, history of iron overload, called Dr. Jesus who said to transfuse 1 unit Hemoglobin 6.9 today Hemoglobin 7.4 two weeks ago Transfuse 1 unit Follow up posttransfusion CBC Chronic sickle cell Continue daily folic acid Continue home potassium supplements Reticulocyte count 257 LDH 1186 (2) Elevated AST (SGOT) ICD Codes: R74.0 - Nonspecific elevation of levels of transaminase and lactic acid dehydrogenase [LDH] Status: Chronic Plan: chronic based on previous visits AST 65 On 06/17 AST 66, range of 57-96 (3) fen/ppx Status: Chronic Plan: Fluids: Half normal saline at 1.5 maintenance Electrolytes: Follow-up BMP in morning and replete as needed Nutrition: Regular diet as tolerated Prophylaxis: Not indicated DVT prophylaxis: SCDs Physician Certification 2 Midnight Certification Type: Continued Stay Order for Inpatient Services The services are ordered in accordance with Medicare regulations or non- Medicare payer requirements, as applicable. In the case of services not specified as inpatient-only, they are appropriately provided as inpatient services in accordance with the 2-midnight benchmark. Estimated LOS (days): 2 days is the estimated time the patient will need to remain in the hospital, assuming treatment plan goals are met and no additional complications. Post-Hospital Plan: Home Philly Cooney MD R2 Jun 27, 2017 10:05
[2017-06-27] MEDS ORDERED: SODIUM CHLOR 0.9% 1000 ML INJ 1,000 ML IV SCH (10:06)
[2017-06-27] MEDS ORDERED: SODIUM CHLORIDE 0.9% FLUSH 10 ML FLUSH IV FLUSH PRN (10:15)
[2017-06-27] MEDS ORDERED: NALOXONE HCL 0.4 MG/ML AMP IV PUSH PRN (10:30)
[2017-06-27] MEDS ORDERED: HYDROmorphone HCL 2 MG TAB PO PRN ×2 (10:30→11:00)
[2017-06-27] MEDS ORDERED: DOCUSATE SODIUM 50 MG/SENNA 8.6 MG TAB PO PRN (11:00)
[2017-06-27] MEDS ORDERED: ACETAMINOPHEN 325 MG TAB PO PRN (11:00)
[2017-06-27] MEDS ORDERED: SODIUM CHLOR 0.45% 1000 ML INJ 1,000 ML IV SCH (11:00)
[2017-06-27] MEDS ORDERED: IBUPROFEN 400 MG TAB PO PRN (11:00)
[2017-06-27] MEDS ORDERED: RESP: ALBUTEROL 2.5 MG/3 ML NEB (PRN) INH (11:00)
[2017-06-27] MEDS ORDERED: HYDROmorphone HCL PF 1 MG/ML VIAL IV PUSH PRN (11:15)
[2017-06-27] MEDS: CALCIUM CARBONATE 500 MG CHEWABLE TAB CHEW SCH (12:00)
[2017-06-27] MEDS: diphenhydrAMINE HCL 50 MG/ML VIAL IV PUSH PRN ×3 (12:26→21:22)
[2017-06-27] MEDS: HYDROmorphone HCL PF 1 MG/ML VIAL IV PUSH PRN ×3 (12:30→21:31)
[2017-06-27 18:00] LABS: HEMATOCRIT 21.2 % (35.0-46.0); HEMOGLOBIN 7.9 GM/DL (11.6-15.3)
[2017-06-27 19:23] LABS: BICARBONATE 26.1 MEQ/L (21.0-32.0); CREATININE 0.46 MG/DL (0.50-1.00)
[2017-06-27] MEDS: SODIUM CHLORIDE 0.9% FLUSH 10 ML FLUSH IV FLUSH SCH (21:00)
[2017-06-28] MEDS ORDERED: POTASSIUM CHLORIDE 10 MEQ CONTROLLED RELEASE TAB PO ONE
[2017-06-28] MEDS: 1/2 NS + KCL 20 MEQ INJ 1,000 ML IV SCH ×3 (01:12→16:30)
[2017-06-28] MEDS: diphenhydrAMINE HCL 50 MG/ML VIAL IV PUSH PRN ×6 (01:24→20:54)
[2017-06-28] MEDS: HYDROmorphone HCL PF 1 MG/ML VIAL IV PUSH PRN (01:26)
[2017-06-28] MEDS: CALCIUM CARBONATE 500 MG CHEWABLE TAB CHEW SCH ×3 (01:31→20:54)
[2017-06-28 03:03] VITALS: BP 106/60; PULSE 92; RESP 18; TEMP 98.9; O2SAT 93
[2017-06-28 08:07] VITALS: BP 112/71; PULSE 83; RESP 19; TEMP 98.6; O2SAT 92
--- NOTE | 2017-06-28 08:21 | HHI.DCPOC ---
Discharge Care Plan Diagnosis: (1) Sickle cell pain crisis Goals to Promote Your Health * To prevent worsening of your condition and complications * To maintain your health at the optimal level Directions to Meet Your Goals Take your medications as prescribed Follow your dietary instruction Follow activity as directed Keep your appointments as scheduled Take your immunizations and boosters as scheduled If your symptoms worsen call your PCP, if no PCP go to Urgent Care Center or Emergency Room Smoking is Dangerous to Your Health. Avoid second hand smoke Call the 24-hour hour crisis hotline for domestic abuse at Joanna Herrera MD, R3 Jun 28, 2017 08:21
[2017-06-28] MEDS: SODIUM CHLORIDE 0.9% FLUSH 10 ML FLUSH IV FLUSH SCH ×2 (09:00→21:00)
[2017-06-28] MEDS: FOLIC ACID 1 MG TAB PO SCH (09:18)
[2017-06-28] MEDS ORDERED: HYDROmorphone HCL PF 2 MG/ML VIAL IV PUSH PRN (09:45)
[2017-06-28] MEDS: HYDROmorphone HCL PF 2 MG/ML VIAL IV PUSH PRN ×4 (09:54→20:55)
[2017-06-28 11:09] VITALS: BP 108/60; PULSE 81; RESP 18; TEMP 98.1; O2SAT 90
--- NOTE | 2017-06-28 11:34 | HHI.FPPN ---
Subjective Remarks Patient feeling pain throughout the night. She continues to have significant pain this morning. She would really like to leave the hospital, but feels that she needs to stay for 1 more day due to her persistent pain. Vitals are stable , she remains afebrile. She is tolerating by mouth intake. (Joanna Herrera MD, R3) Objective Vitals Vital Signs Date Time Temp Pulse Resp B/P (MAP) Pulse Ox O2 Delivery O2 Flow Rate FiO2 06/28/17 11:09 98.1 81 18 108/60 (76) 90 06/28/17 08:07 98.6 83 19 112/71 (85) 92 06/28/17 03:03 98.9 92 18 106/60 (75) 93 06/27/17 20:31 98.8 93 18 119/69 (86) 91 06/27/17 19:46 99 06/27/17 16:38 98.7 86 18 99/58 (72) 95 06/27/17 15:40 98.2 84 20 96/69 06/27/17 13:10 97.8 93 20 105/74 96 06/27/17 12:55 98.3 86 20 111/71 97 06/27/17 12:38 98.6 92 20 108/60 94 06/27/17 12:34 98.6 92 20 108/60 94 06/27/17 11:58 98.6 86 18 100/73 (82) 91 I/O 06/27/17 06/27/17 06/27/17 06/28/17 06/28/17 06/28/17 07:00 15:00 23:00 07:00 15:00 23:00 Intake Total 1000 ml 1360 ml 500 ml Balance 1000 ml 1360 ml 500 ml Intake IV Total 1000 ml 1350 ml Packed Cells 400 ml Blood Product IV Normal Saline Flush 10 ml 100 ml (Joanna Herrera MD, R3) Result Diagram: 06/27/17 1700 06/27/17 1820 Imaging Last Impressions Chest X-Ray 06/27/17 0608 Signed Impressions: Service Date/Time: Tuesday, June 27, 2017 06:29 - CONCLUSION: No acute cardiopulmonary disease. Khadar Delgado MD Objective Remarks GENERAL: This is a well-nourished, well-developed patient, who appears to be in pain. SKIN: No rashes, ecchymoses or lesions. Cool and dry. HEAD: Atraumatic. Normocephalic. No temporal or scalp tenderness. EYES: Pupils equal round and reactive. Extraocular motions intact. No scleral icterus. No injection or drainage. ENT: Nose without bleeding, purulent drainage or septal hematoma. Throat without erythema, tonsillar hypertrophy or exudate. Uvula midline. Airway patent. NECK: Trachea midline. No JVD or lymphadenopathy. Supple, nontender, no meningeal signs. CARDIOVASCULAR: Regular rate and rhythm without murmurs, gallops, or rubs. RESPIRATORY: Clear to auscultation. Breath sounds equal bilaterally. No wheezes , rales, or rhonchi. GASTROINTESTINAL: Abdomen soft, non-tender, nondistended. No hepato-splenomegaly , or palpable masses. No guarding. MUSCULOSKELETAL: Extremities without clubbing, cyanosis, or edema. No joint tenderness, effusion, or edema noted. No calf tenderness. Negative Homans sign bilaterally. NEUROLOGICAL: Awake and alert. Cranial nerves II through XII intact. Motor and sensory grossly within normal limits. Normal speech. (Joanna Herrera MD, R3) A/P Assessment and Plan 31-year-old female, history of monthly sickle cell exacerbations with menstruation, presents with symptomatic anemia and sickle cell crisis. Discharge Planning Anticipate discharge home tomorrow. (Joanna Herrera MD, R3) Attending Attestation Table rounds with DR Herrera, Dr Adamson, Dr Monte and Dr Barnett were performed this morning A detailed discussion regarding patients admission and hospital course was reviewed with Resident team Patient was seen and examined with team Agree with contents in above note SeeAssessment and Plan (Zachary Bueno MD) Problem List: (1) Sickle cell crisis ICD Codes: D57.00 - Sickle cell crisis Status: Acute Plan: Pain crisis associated with acute anemia, no indication of acute chest syndrome at this time Chest x-ray normal, afebrile Influenza negative Pain management : History of opioid medication abuse, history of high opioid dependence and tolerance Ibuprofen Dilaudid 1 mg IV every 3 hours for pain 3-5 Dilaudid 2 mg IV every 3 hours pain 6-10 Benadryl 25 mg IV Transfusion: Anemia related to menstruation, patient is demanding transfusion, history of iron overload, called Dr. Guerrero who said to transfuse 1 unit Hemoglobin trending up from 6.9 to 7.9 post transfusion Continue daily folic acid Continue home potassium supplements (2) Elevated AST (SGOT) ICD Codes: R74.0 - Nonspecific elevation of levels of transaminase and lactic acid dehydrogenase [LDH] Status: Chronic Plan: chronic based on previous visits AST 65 On 2/6 AST 66, range of 57-96 (3) fen/ppx Status: Chronic Plan: Fluids: Half normal saline + KCl at 1.5 maintenance Electrolytes: monitor BMP in morning and replete as needed Nutrition: Regular diet as tolerated Prophylaxis: Not indicated DVT prophylaxis: SCDs (Joanna Herrera MD, R3) Joanna Herrera MD, R3 Jun 28, 2017 11:34 Zachary Bueno MD Jun 28, 2017 16:29
[2017-06-28 11:36] LABS: AUTOMATED NEUTROPHIL # 4.7 TH/MM3 (1.8-7.7); BASOPHIL # 0.1 TH/MM3 (0-0.2); BASOPHIL % 0.9 % (0.0-2.0); EOSINOPHIL # 0.5 TH/MM3 (0-0.4); EOSINOPHIL % 4.9 % (0.0-4.0); HEMOGLOBIN 8.1 GM/DL (11.6-15.3); LYMPH % 36.2 % (9.0-44.0); LYMPHOCYTE # 3.5 TH/MM3 (1.0-4.8); MEAN CELL VOLUME 85.4 FL (80.0-100.0); MEAN CORPUSCULAR HEMOGLOBIN 31.5 PG (27.0-34.0); MEAN PLATELET VOLUME 7.8 FL (7.0-11.0); MONO % 10.2 % (0.0-8.0); NEUT % 47.8 % (16.0-70.0); PLATELET COUNT 345 TH/MM3 (150-450); RED BLOOD COUNT 2.57 MIL/MM3 (4.00-5.30); WHITE BLOOD COUNT 9.8 TH/MM3 (4.0-11.0)
[2017-06-28 11:43] LABS: MEAN CORPUSCULAR HGB CONC 36.9 % (32.0-36.0)
[2017-06-28 11:45] LABS: RETIC # 264.7 MIL/L (20.0-150.0); RETIC % 10.5 % (0.4-3.0)
[2017-06-28 12:08] LABS: TOTAL BILIRUBIN ADULT 2.7 MG/DL (0.2-1.0)
[2017-06-28 12:18] LABS: ALBUMIN 3.1 GM/DL (3.4-5.0); BICARBONATE 23.4 MEQ/L (21.0-32.0); CALCIUM 8.3 MG/DL (8.5-10.1); CREATININE 0.44 MG/DL (0.50-1.00); DIRECT BILIRUBIN ADULT 0.5 MG/DL (0.0-0.2); INDIRECT BILIRUBIN 2.2 MG/DL (0.0-0.8)
[2017-06-28 12:26] LABS: BANDS 2 % (0-6); CORRECTED NUCLEATED RBC 13 /100 WBC (0-0); LYMPHOCYTES 40 % (9-44); MONOCYTES 4 % (0-8); NEUTROPHIL # MANUAL DIFF 5.4 TH/MM3 (1.8-7.7); NUCLEATED RED BLOOD CELL 13 (0-0); POLYS (SEG NEUTROPHILS) 53 % (16-70)
[2017-06-28 12:27] LABS: SICKLE CELLS 2+ (NORMAL)
[2017-06-28 12:28] LABS: HOWELL-JOLLY BODIES PRESENT (NONE SEEN); POLYCHROMASIA 2.1 % (0.0-1.9)
[2017-06-28 16:06] VITALS: BP 104/59; PULSE 59; RESP 18; TEMP 97.7; O2SAT 91
[2017-06-28 19:51] VITALS: O2SAT 92
[2017-06-28 20:36] VITALS: BP 101/63; PULSE 86; RESP 19; TEMP 97.9; O2SAT 90
[2017-06-29 00:06] VITALS: BP 111/69; PULSE 80; RESP 19; TEMP 98.1; O2SAT 94
[2017-06-29] MEDS: diphenhydrAMINE HCL 50 MG/ML VIAL IV PUSH PRN ×8 (00:28→21:46)
[2017-06-29] MEDS: HYDROmorphone HCL PF 2 MG/ML VIAL IV PUSH PRN ×8 (00:29→21:46)
[2017-06-29] MEDS: 1/2 NS + KCL 20 MEQ INJ 1,000 ML IV SCH ×3 (03:46→18:39)
[2017-06-29 06:29] VITALS: BP 114/57; PULSE 84; RESP 16; TEMP 98.4; O2SAT 92
[2017-06-29 07:05] VITALS: BP 106/76; PULSE 83; RESP 18; TEMP 98.3; O2SAT 95
[2017-06-29 07:24] LABS: AUTOMATED NEUTROPHIL # 4.7 TH/MM3 (1.8-7.7); BASOPHIL # 0.1 TH/MM3 (0-0.2); BASOPHIL % 0.9 % (0.0-2.0); EOSINOPHIL # 0.7 TH/MM3 (0-0.4); EOSINOPHIL % 6.7 % (0.0-4.0); HEMATOCRIT 24.1 % (35.0-46.0); HEMOGLOBIN 8.8 GM/DL (11.6-15.3); LYMPH % 38.7 % (9.0-44.0); MEAN CELL VOLUME 87.1 FL (80.0-100.0); MEAN CORPUSCULAR HEMOGLOBIN 31.9 PG (27.0-34.0); MEAN PLATELET VOLUME 8.3 FL (7.0-11.0); MONO % 8.8 % (0.0-8.0); MONOCYTE # 0.9 TH/MM3 (0-0.9); NEUT % 44.9 % (16.0-70.0); PLATELET COUNT 360 TH/MM3 (150-450); RED BLOOD COUNT 2.76 MIL/MM3 (4.00-5.30); RED CELL DISTRIBUTION WIDTH 22.8 % (11.6-17.2); WHITE BLOOD COUNT 10.4 TH/MM3 (4.0-11.0)
[2017-06-29 07:30] LABS: MEAN CORPUSCULAR HGB CONC 36.7 % (32.0-36.0)
[2017-06-29] MEDS: CALCIUM CARBONATE 500 MG CHEWABLE TAB CHEW SCH ×2 (09:00→21:45)
[2017-06-29] MEDS: SODIUM CHLORIDE 0.9% FLUSH 10 ML FLUSH IV FLUSH SCH ×2 (09:37→21:00)
[2017-06-29] MEDS: FOLIC ACID 1 MG TAB PO SCH (09:38)
--- NOTE | 2017-06-29 09:43 | HHI.FPPN ---
Subjective Remarks Patient seen and examined bedside this morning. Patient states that her pain is improving a little but she is still in a significant amount of pain she does not feel that she is ready to go home. She thinks that she will 100% be ready to go home tomorrow morning. She denies any chest pain/shortness of breath/ dizziness. No acute events overnight. Objective Vitals Vital Signs Date Time Temp Pulse Resp B/P (MAP) Pulse Ox O2 Delivery O2 Flow Rate FiO2 06/29/17 07:05 98.3 83 18 106/76 (86) 95 06/29/17 06:29 98.4 84 16 114/57 (76) 92 06/29/17 04:52 18 06/29/17 00:06 98.1 80 19 111/69 (83) 94 06/28/17 20:36 97.9 86 19 101/63 (76) 90 06/28/17 19:51 92 06/28/17 16:06 97.7 59 18 104/59 (74) 91 06/28/17 11:09 98.1 81 18 108/60 (76) 90 I/O 06/28/17 06/28/17 06/28/17 06/29/17 06/29/17 06/29/17 07:00 15:00 23:00 07:00 15:00 23:00 Intake Total 1200 ml Balance 1200 ml Intake Oral 300 ml IV Total 900 ml Result Diagram: 06/29/17 0630 06/28/17 1102 Objective Remarks GENERAL: This is a well-nourished, well-developed patient, who appears to be in pain. SKIN: No rashes, ecchymoses or lesions. Cool and dry. HEAD: Atraumatic. Normocephalic. No temporal or scalp tenderness. EYES: Pupils equal round and reactive. Extraocular motions intact. No scleral icterus. No injection or drainage. ENT: Nose without bleeding, purulent drainage or septal hematoma. Throat without erythema, tonsillar hypertrophy or exudate. Uvula midline. Airway patent. NECK: Trachea midline. No JVD or lymphadenopathy. Supple, nontender, no meningeal signs. CARDIOVASCULAR: Regular rate and rhythm without murmurs, gallops, or rubs. RESPIRATORY: Clear to auscultation. Breath sounds equal bilaterally. No wheezes , rales, or rhonchi. GASTROINTESTINAL: Abdomen soft, non-tender, nondistended. No hepato-splenomegaly , or palpable masses. No guarding. MUSCULOSKELETAL: Extremities without clubbing, cyanosis, or edema. No joint tenderness, effusion, or edema noted. No calf tenderness. Negative Homans sign bilaterally. NEUROLOGICAL: Awake and alert. Cranial nerves II through XII intact. Motor and sensory grossly within normal limits. Normal speech. A/P Assessment and Plan 31-year-old female, history of monthly sickle cell exacerbations with menstruation, presents with symptomatic anemia and sickle cell crisis. Discharge Planning Anticipate discharge home tomorrow. Problem List: (1) Sickle cell crisis ICD Codes: D57.00 - Sickle cell crisis Status: Acute Plan: Pain crisis associated with acute anemia, no indication of acute chest syndrome at this time Chest x-ray normal, afebrile Influenza negative Pain management : History of opioid medication abuse, history of high opioid dependence and tolerance Ibuprofen Dilaudid 1 mg IV every 3 hours for pain 3-5 Dilaudid 2 mg IV every 3 hours pain 6-10 Benadryl 25 mg IV Transfusion: Anemia related to menstruation, patient is demanding transfusion, history of iron overload, called Dr. Guerrero who said to transfuse 1 unit Hemoglobin trending up from 6.9 to 7.9 post transfusion Hemoglobin 8.8 today Continue daily folic acid Continue home potassium supplements (2) Elevated AST (SGOT) ICD Codes: R74.0 - Nonspecific elevation of levels of transaminase and lactic acid dehydrogenase [LDH] Status: Chronic Plan: chronic based on previous visits AST 65, AST 52 range of 57-96 (3) fen/ppx Status: Chronic Plan: Fluids: Half normal saline + KCl at 1.5 maintenance Electrolytes: monitor BMP in morning and replete as needed Nutrition: Regular diet as tolerated Prophylaxis: Not indicated DVT prophylaxis: Philly Emmanuel MD R2 Jun 29, 2017 09:42
[2017-06-29 10:51] LABS: BANDS 1 % (0-6); CORRECTED NUCLEATED RBC 12 /100 WBC (0-0); LYMPHOCYTES 37 % (9-44); METAMYELOCYTES 2 % (0-1); MONOCYTES 8 % (0-8); NEUTROPHIL # MANUAL DIFF 5.3 TH/MM3 (1.8-7.7); NUCLEATED RED BLOOD CELL 12 (0-0); POLYS (SEG NEUTROPHILS) 48 % (16-70)
[2017-06-29 10:57] LABS: SICKLE CELLS 3+ (NORMAL)
[2017-06-29 11:23] VITALS: BP 108/69; PULSE 82; RESP 18; TEMP 97.5; O2SAT 93
[2017-06-29 15:12] VITALS: BP 101/61; PULSE 88; RESP 18; TEMP 98; O2SAT 95
[2017-06-30 00:07] VITALS: BP 94/61; PULSE 84; RESP 18; TEMP 98.5; O2SAT 98
[2017-06-30] MEDS: 1/2 NS + KCL 20 MEQ INJ 1,000 ML IV SCH ×3 (00:37→16:11)
[2017-06-30] MEDS: SODIUM CHLORIDE 0.9% FLUSH 10 ML FLUSH IV FLUSH SCH ×2 (00:37→03:30)
[2017-06-30] MEDS: diphenhydrAMINE HCL 50 MG/ML VIAL IV PUSH PRN ×8 (00:38→22:38)
[2017-06-30] MEDS: HYDROmorphone HCL PF 2 MG/ML VIAL IV PUSH PRN ×8 (00:38→22:36)
[2017-06-30 05:37] VITALS: BP 100/69; PULSE 94; RESP 18; TEMP 98.5; O2SAT 98
[2017-06-30 07:53] VITALS: BP 104/64; PULSE 88; RESP 16; TEMP 98; O2SAT 94
[2017-06-30] MEDS: FOLIC ACID 1 MG TAB PO SCH (09:00)
[2017-06-30] MEDS: CALCIUM CARBONATE 500 MG CHEWABLE TAB CHEW SCH ×2 (09:00→21:00)
--- NOTE | 2017-06-30 10:13 | HHI.FPPN ---
Subjective Remarks Patient seen and examined at bedside. No acute events overnight. Patient denies any shortness of breath or difficulty breathing. She has mild chest pain, describes as throbbing. Still reports pain, rates 8/10. She also complains of lower abdominal pain. Denies any urinary symptoms. Patient will like to go home this afternoon if her pain is better controlled. Objective Vitals Vital Signs Date Time Temp Pulse Resp B/P (MAP) Pulse Ox O2 Delivery O2 Flow Rate FiO2 06/30/17 09:06 20 06/30/17 07:53 98.0 88 16 104/64 (77) 94 06/30/17 05:37 98.5 94 18 100/69 (79) 98 06/30/17 00:07 98.5 84 18 94/61 (72) 98 06/29/17 15:12 98.0 88 18 101/61 (74) 95 06/29/17 11:23 97.5 82 18 108/69 (82) 93 I/O 06/29/17 06/29/17 06/29/17 06/30/17 06/30/17 06/30/17 07:00 15:00 23:00 07:00 15:00 23:00 Intake Total 200 ml Balance 200 ml Intake Oral 200 ml Result Diagram: 06/29/17 0630 06/28/17 1102 Imaging Last Impressions Chest X-Ray 06/27/17 0608 Signed Impressions: Service Date/Time: Tuesday, June 27, 2017 06:29 - CONCLUSION: No acute cardiopulmonary disease. Khadar Delgado MD Objective Remarks GENERAL: This is a well-nourished, well-developed patient, who appears to be in pain. SKIN: No rashes, ecchymoses or lesions. Cool and dry. HEAD: Atraumatic. Normocephalic. No temporal or scalp tenderness. EYES: Pupils equal round and reactive. Extraocular motions intact. No scleral icterus. No injection or drainage. ENT: Nose without bleeding, purulent drainage or septal hematoma. Throat without erythema, tonsillar hypertrophy or exudate. Uvula midline. Airway patent. NECK: Trachea midline. No JVD or lymphadenopathy. Supple, nontender, no meningeal signs. CARDIOVASCULAR: Regular rate and rhythm without murmurs, gallops, or rubs. RESPIRATORY: Clear to auscultation. Breath sounds equal bilaterally. No wheezes , rales, or rhonchi. GASTROINTESTINAL: Abdomen soft, non-tender, nondistended. No hepato-splenomegaly , or palpable masses. No guarding. MUSCULOSKELETAL: Extremities without clubbing, cyanosis, or edema. No joint tenderness, effusion, or edema noted. No calf tenderness. Negative Homans sign bilaterally. NEUROLOGICAL: Awake and alert. Cranial nerves II through XII intact. Motor and sensory grossly within normal limits. Normal speech. Urinary Catheter: No A/P Assessment and Plan 31-year-old female, history of monthly sickle cell exacerbations with menstruation, presents with symptomatic anemia and sickle cell crisis. Discharge Planning Anticipate discharge home today pending better pain control. Problem List: (1) Sickle cell crisis ICD Codes: D57.00 - Sickle cell crisis Status: Acute Plan: Pain crisis associated with acute anemia, no indication of acute chest syndrome at this time Chest x-ray normal, afebrile Influenza negative Pain management : History of opioid medication abuse, history of high opioid dependence and tolerance Ibuprofen Dilaudid 1 mg IV every 3 hours for pain 3-5 Dilaudid 2 mg IV every 3 hours pain 6-10 Benadryl 25 mg IV Transfusion: Anemia related to menstruation, patient is demanding transfusion, history of iron overload, called Dr. Guerrero who said to transfuse 1 unit Hemoglobin trending up from 6.9 to 7.9 post transfusion Hemoglobin 8.8 yesterday, f/u cbc for today Continue daily folic acid Continue home potassium supplements (2) Elevated AST (SGOT) ICD Codes: R74.0 - Nonspecific elevation of levels of transaminase and lactic acid dehydrogenase [LDH] Status: Chronic Plan: chronic based on previous visits AST 65, AST 52 range of 57-96 (3) fen/ppx Status: Chronic Plan: Fluids: Half normal saline + KCl at 1.5 maintenance Electrolytes: WNL, replete as needed Nutrition: Regular diet as tolerated Prophylaxis: Not indicated DVT prophylaxis: Juanjo Zamudio MD, R1 Jun 30, 2017 10:13
[2017-06-30 12:40] VITALS: BP 94/62; PULSE 93; RESP 18; TEMP 98.5; O2SAT 93
[2017-06-30 12:51] LABS: AUTOMATED NEUTROPHIL # 4.1 TH/MM3 (1.8-7.7); BASOPHIL # 0.1 TH/MM3 (0-0.2); BASOPHIL % 0.5 % (0.0-2.0); EOSINOPHIL % 10.8 % (0.0-4.0); HEMOGLOBIN 8.9 GM/DL (11.6-15.3); LYMPH % 36.3 % (9.0-44.0); LYMPHOCYTE # 3.5 TH/MM3 (1.0-4.8); MEAN CELL VOLUME 87.6 FL (80.0-100.0); MEAN CORPUSCULAR HEMOGLOBIN 32.4 PG (27.0-34.0); MONO % 10.3 % (0.0-8.0); NEUT % 42.1 % (16.0-70.0); PLATELET COUNT 334 TH/MM3 (150-450); RED BLOOD COUNT 2.74 MIL/MM3 (4.00-5.30); RED CELL DISTRIBUTION WIDTH 23.1 % (11.6-17.2); WHITE BLOOD COUNT 9.7 TH/MM3 (4.0-11.0)
[2017-06-30 13:08] LABS: ALBUMIN 3.4 GM/DL (3.4-5.0); BICARBONATE 21.6 MEQ/L (21.0-32.0); BLOOD UREA NITROGEN 8 MG/DL (7-18); CALCIUM 8.5 MG/DL (8.5-10.1); CHLORIDE 103 MEQ/L (98-107); GLOMERULAR FILTRATION RATE 172 ML/MIN (>89); GLUCOSE,RANDOM 101 MG/DL (74-106); SODIUM (NA) 135 MEQ/L (136-145)
[2017-06-30 13:10] LABS: ALKALINE PHOSPHATASE 84 U/L (45-117); ALT (GPT) 13 U/L (10-53); TOTAL BILIRUBIN ADULT 2.4 MG/DL (0.2-1.0); TOTAL PROTEIN 7.9 GM/DL (6.4-8.2)
[2017-06-30 13:16] LABS: AST (GOT) 69 U/L (15-37)
[2017-06-30 13:23] LABS: CORRECTED NUCLEATED RBC 7 /100 WBC (0-0); HOWELL-JOLLY BODIES PRESENT (NONE SEEN); LYMPHOCYTES 44 % (9-44); MONOCYTES 12 % (0-8); MYELOCYTES 1 % (0-0); NEUTROPHIL # MANUAL DIFF 3.9 TH/MM3 (1.8-7.7); NUCLEATED RED BLOOD CELL 7 (0-0); POLYS (SEG NEUTROPHILS) 39 % (16-70); SICKLE CELLS 2+ (NORMAL)
[2017-06-30 13:24] LABS: ACANTHOCYTES 1+ (NORMAL); POLYCHROMASIA 2.2 % (0.0-1.9)
[2017-06-30 13:25] LABS: KERATOCYTES OCC (NORMAL); TARGET CELLS 1+ (NORMAL)
[2017-06-30 15:27] VITALS: BP 105/58; PULSE 94; RESP 18; TEMP 98.2; O2SAT 95
[2017-06-30 20:39] VITALS: BP 100/60; PULSE 100; RESP 18; TEMP 98.7; O2SAT 98
[2017-07-01 00:44] VITALS: BP 95/58; PULSE 88; RESP 18; TEMP 98.7; O2SAT 96
[2017-07-01] MEDS: 1/2 NS + KCL 20 MEQ INJ 1,000 ML IV SCH ×3 (00:50→16:00)
[2017-07-01] MEDS: diphenhydrAMINE HCL 50 MG/ML VIAL IV PUSH PRN ×6 (01:42→17:16)
[2017-07-01] MEDS: HYDROmorphone HCL PF 2 MG/ML VIAL IV PUSH PRN ×6 (01:43→17:17)
[2017-07-01 04:41] VITALS: BP 98/67; PULSE 98; O2SAT 95
[2017-07-01 07:49] LABS: AUTOMATED NEUTROPHIL # 3.9 TH/MM3 (1.8-7.7); BASOPHIL # 0.1 TH/MM3 (0-0.2); BASOPHIL % 0.7 % (0.0-2.0); EOSINOPHIL # 1.1 TH/MM3 (0-0.4); EOSINOPHIL % 10.9 % (0.0-4.0); HEMATOCRIT 21.7 % (35.0-46.0); HEMOGLOBIN 8.2 GM/DL (11.6-15.3); LYMPH % 34.6 % (9.0-44.0); LYMPHOCYTE # 3.3 TH/MM3 (1.0-4.8); MEAN CELL VOLUME 85.1 FL (80.0-100.0); MEAN PLATELET VOLUME 7.6 FL (7.0-11.0); MONO % 13.3 % (0.0-8.0); MONOCYTE # 1.3 TH/MM3 (0-0.9); NEUT % 40.5 % (16.0-70.0); PLATELET COUNT 282 TH/MM3 (150-450); RED BLOOD COUNT 2.55 MIL/MM3 (4.00-5.30); RED CELL DISTRIBUTION WIDTH 22.2 % (11.6-17.2); WHITE BLOOD COUNT 9.6 TH/MM3 (4.0-11.0)
[2017-07-01 07:50] LABS: MEAN CORPUSCULAR HGB CONC 37.6 % (32.0-36.0)
[2017-07-01] MEDS: FOLIC ACID 1 MG TAB PO SCH (07:57)
[2017-07-01] MEDS: SODIUM CHLORIDE 0.9% FLUSH 10 ML FLUSH IV FLUSH SCH ×2 (07:59→19:28)
[2017-07-01] MEDS: CALCIUM CARBONATE 500 MG CHEWABLE TAB CHEW SCH (07:59)
[2017-07-01 08:35] VITALS: BP 101/61; PULSE 90; RESP 16; TEMP 98.8; O2SAT 95
[2017-07-01 09:03] LABS: CORRECTED NUCLEATED RBC 6 /100 WBC (0-0); LYMPHOCYTES 25 % (9-44); MONOCYTES 10 % (0-8); NEUTROPHIL # MANUAL DIFF 5.8 TH/MM3 (1.8-7.7); NUCLEATED RED BLOOD CELL 6 (0-0); POLYS (SEG NEUTROPHILS) 60 % (16-70)
[2017-07-01 09:04] LABS: HOWELL-JOLLY BODIES PRESENT (NONE SEEN); SICKLE CELLS 2+ (NORMAL)
[2017-07-01] MEDS ORDERED: HYDR-3583 PO (11:23)
[2017-07-01 11:49] VITALS: BP 95/59; PULSE 93; RESP 16; TEMP 98.6; O2SAT 95
--- NOTE | 2017-07-01 13:33 | HHI.FPPN ---
Subjective Remarks Patient seen and examined this morning. No acute events overnight. She reports her pain is improving today. Would like to be discharged at 5 PM. Otherwise, denies any new complaints. Denies any fever/chills, nausea/vomiting, chest pain , shortness of breath, leg pain. Objective Vitals Vital Signs Date Time Temp Pulse Resp B/P (MAP) Pulse Ox O2 Delivery O2 Flow Rate FiO2 07/01/17 11:49 98.6 93 16 95/59 (71) 95 07/01/17 11:43 20 07/01/17 08:35 98.8 90 16 101/61 (74) 95 07/01/17 06:30 2.00 07/01/17 04:41 98 98/67 (77) 95 07/01/17 00:44 98.7 88 18 95/58 (70) 96 06/30/17 20:39 98.7 100 18 100/60 (73) 98 06/30/17 15:27 98.2 94 18 105/58 (74) 95 I/O 06/30/17 06/30/17 06/30/17 07/01/17 07/01/17 07/01/17 07:00 15:00 23:00 07:00 15:00 23:00 Intake Total 200 ml Balance 200 ml Intake Oral 200 ml Result Diagram: 07/01/17 0736 06/30/17 1140 Objective Remarks GENERAL: This is a well-nourished, well-developed patient, who appears to be in pain. CARDIOVASCULAR: Regular rate and rhythm without murmurs, gallops, or rubs. RESPIRATORY: Clear to auscultation. Breath sounds equal bilaterally. No wheezes , rales, or rhonchi. GASTROINTESTINAL: Abdomen soft, nondistended, minimally tender to palpation. MUSCULOSKELETAL: Extremities without clubbing, cyanosis, or edema. NEUROLOGICAL: Awake and alert. Motor and sensory grossly within normal limits. Normal speech. A/P Assessment and Plan 31-year-old female, history of monthly sickle cell exacerbations with menstruation, presents with symptomatic anemia and sickle cell crisis. Discharge Planning Anticipate discharge home today pending better pain control. Problem List: (1) Sickle cell crisis ICD Codes: D57.00 - Sickle cell crisis Status: Acute Plan: Pain crisis associated with acute anemia, no indication of acute chest syndrome at this time Chest x-ray normal, afebrile Influenza negative CBC stable Pain management : History of opioid medication abuse, history of high opioid dependence and tolerance Ibuprofen Dilaudid 1 mg IV every 3 hours for pain 3-5 Dilaudid 2 mg IV every 3 hours pain 6-10 Benadryl 25 mg IV Continue daily folic acid Continue home potassium supplements (2) Elevated AST (SGOT) ICD Codes: R74.0 - Nonspecific elevation of levels of transaminase and lactic acid dehydrogenase [LDH] Status: Chronic Plan: chronic based on previous visits. Stable. (3) fen/ppx Status: Chronic Plan: Fluids: Half normal saline + KCl at 1.5 maintenance Electrolytes: WNL, replete as needed Nutrition: Regular diet as tolerated GI Prophylaxis: Not indicated DVT prophylaxis: Desean Anderson MD Jul 01, 2017 13:33
[2017-07-01 14:36] VITALS: RESP 18
--- NOTE | 2017-07-01 22:05 | HHI.DS ---
Discharge Summary Admission Date Jun 28, 2017 at 11:40 Discharge Date: Jul 01, 2017 Admitting Diagnosis sickle cell pain crisis, anemia (1) Sickle cell crisis Diagnosis: Principal Plan: Pain crisis associated with acute anemia, no indication of acute chest syndrome at this time Chest x-ray normal, afebrile Influenza negative CBC stable Pain management : History of opioid medication abuse, history of high opioid dependence and tolerance Ibuprofen Dilaudid 1 mg IV every 3 hours for pain 3-5 Dilaudid 2 mg IV every 3 hours pain 6-10 Benadryl 25 mg IV Continue daily folic acid Continue home potassium supplements ICD Codes: D57.00 - Sickle cell crisis Status: Acute (2) Elevated AST (SGOT) Diagnosis: Secondary Plan: chronic based on previous visits. Stable. ICD Codes: R74.0 - Nonspecific elevation of levels of transaminase and lactic acid dehydrogenase [LDH] Status: Chronic (3) fen/ppx Diagnosis: Secondary Plan: Fluids: Half normal saline + KCl at 1.5 maintenance Electrolytes: WNL, replete as needed Nutrition: Regular diet as tolerated GI Prophylaxis: Not indicated DVT prophylaxis: SCDs Status: Chronic Brief History 31 y/o F, LMP 2/15, hx of multiple sickle cell pain crisis during menstruation, started experiencing abdominal pain, N/V, sweats/chills since yesterday. She had to leave work because of the severe symptoms and she started drinking as much fluid as possible when she got home. But the pain kept increasing to a point that was intolerable. The pain is worst in the knees, lower back, and elbows and is 9/10 right now after Toradol. She tried her Lortab 10 for the pain at home but it did not do anything. Her nausea has been alleviated by zofran in the ED. This commonly happens during menstruation. She has severe periods and experiences pain during every cycle. She regularly comes to the ED and gets fluids, gets the pain and nausea under control, but she frequently will AMA because she hates being in the hospital. She has had a heavier period than usual with this cycle, and has had severe cramps and clotting. She has had some mild chest pain, but she states this is normal for her when the sickle cell is bad. Denies any SOB/fevers. She called her heme , but he is not estimation manager right now. Another doctor answered (presumably ) and knows that she is here. In general, she has spoken with her Heme to see if there is anything else she can do about the monthly exacerbations during menstruation. She has tried Depo, which did not help. CBC/BMP: 07/01/17 0736 06/30/17 1140 Significant Findings Laboratory Tests Test 06/29/17 06:30 06/30/17 11:40 07/01/17 07:36 Red Blood Count 2.76 MIL/MM3 (4.00-5.30) 2.74 MIL/MM3 (4.00-5.30) 2.55 MIL/MM3 (4.00-5.30) Hemoglobin 8.8 GM/DL (11.6-15.3) 8.9 GM/DL (11.6-15.3) 8.2 GM/DL (11.6-15.3) Hematocrit 24.1 % (35.0-46.0) 24.0 % (35.0-46.0) 21.7 % (35.0-46.0) Mean Corpuscular Hemoglobin Concent 36.7 % (32.0-36.0) 37.0 % (32.0-36.0) 37.6 % (32.0-36.0) Red Cell Distribution Width 22.8 % (11.6-17.2) 23.1 % (11.6-17.2) 22.2 % (11.6-17.2) Monocytes (%) (Auto) 8.8 % (0.0-8.0) 10.3 % (0.0-8.0) 13.3 % (0.0-8.0) Eosinophils (%) (Auto) 6.7 % (0.0-4.0) 10.8 % (0.0-4.0) 10.9 % (0.0-4.0) Eosinophils # (Auto) 0.7 TH/MM3 (0-0.4) 1.0 TH/MM3 (0-0.4) 1.1 TH/MM3 (0-0.4) Metamyelocytes 2 % (0-1) Nucleated Red Blood Cells 12 /100 WBC (0-0) 7 /100 WBC (0-0) 6 /100 WBC (0-0) Polychromasia 2.0 % (0.0-1.9) 2.2 % (0.0-1.9) Sickle Cells 3+ (NORMAL) 2+ (NORMAL) 2+ (NORMAL) Monocytes # (Auto) 1.0 TH/MM3 (0-0.9) 1.3 TH/MM3 (0-0.9) Monocytes % 12 % (0-8) 10 % (0-8) Myelocytes 1 % (0-0) Target Cells 1+ (NORMAL) Acanthocytes 1+ (NORMAL) Keratocytes OCC (NORMAL) Aspartate Amino Transf (AST/SGOT) 69 U/L (15-37) Total Bilirubin 2.4 MG/DL (0.2-1.0) Sodium Level 135 MEQ/L (136-145) Eosinophils % 5 % (0-4) Imaging Last Impressions Chest X-Ray 06/27/17 0608 Signed Impressions: Service Date/Time: Tuesday, June 27, 2017 06:29 - CONCLUSION: No acute cardiopulmonary disease. Khadar Delgado MD PE at Discharge GENERAL: This is a well-nourished, well-developed patient, who appears to be in pain. CARDIOVASCULAR: Regular rate and rhythm without murmurs, gallops, or rubs. RESPIRATORY: Clear to auscultation. Breath sounds equal bilaterally. No wheezes , rales, or rhonchi. GASTROINTESTINAL: Abdomen soft, nondistended, minimally tender to palpation. MUSCULOSKELETAL: Extremities without clubbing, cyanosis, or edema. NEUROLOGICAL: Awake and alert. Motor and sensory grossly within normal limits. Normal speech. Hospital Course 31-year-old female with history of sickle cell presents with abdominal pain, nausea/vomiting and pain. She started her menstruation, and the pain usually worsens around this time. Just x-ray was normal. Patient was admitted and started on Dilaudid for pain control. Patient was also found be slightly anemic at hemoglobin of 6.9. She was transferred 1 unit. Patient remained stable, with her pain slowly improving. Patient was discharged in stable condition with follow-up with her counselor supervisor. Pt Condition on Discharge: Stable Discharge Disposition: Discharge Home Discharge Instructions DIET: Follow Instructions for: As Tolerated, No Restrictions Activities you can perform: Regular-No Restrictions Follow up Referrals: Hematology - 1 Week PCP Follow-up - 1 Week Continued Medications: Folic Acid (Folic Acid) 0.4 Mg Tab 400 MCG PO DAILY for Nutritional Supplement, TAB 0 Refills Hydrocodone-Acetaminophen (Hydrocodone-Acetaminophen) 10-325 mg Tab 1 TAB PO Q6H PRN for PAIN, #24 TAB 0 Refills (This prescription has been renewed ) Potassium Chloride ER (K-Tab) 20 Meq Tab 20 MEQ PO BID for Electrolyte Replacement for 3 Days, #6 TAB 0 Refills Desean Doty MD Jul 01, 2017 22:05
== END 2017-07-01 19:58 | disposition home or self-care (01) | DRG 812 ==
LOC: NEPE 05:57 → NEDA 09:21 → NEPHCDU 11:46 → OBSVTOIN 06-28 11:40
PROVIDERS: ADMIT Family Medicine; ATTEND Family Medicine
PROC: 30233N1 Transfusion of Nonautologous Red Blood Cells into Peripheral Vein, Percutaneous Approach (ICD-10-PCS; principal; 2017-06-27)
DX: D57.00 Hb-SS disease with crisis, unspecified (principal); I10 Essential (primary) hypertension
CPT/HCPCS: 36430; 71045; 80048; 80053; 80076; 81001; 83615; 85007; 85014; 85018; 85027; 85044; 86850; 86900; 86901; 86920; 87804; 94150; 96361; 96374; 96375; 96376; G0378; J1170; J1200; J1642; J1885; J2405; J3475; J7030; J7050; P9016

== ENCOUNTER 2017-07-12 02:09 | Emergency (ER) | payer OTHER ==
[~2017-07-12] VITALS: Ht 152.4 cm; Wt 57.0 kg
[2017-07-12 02:37] VITALS: BP 110/63; PULSE 80; RESP 18; TEMP 97.9; O2SAT 98
[2017-07-12] MEDS ORDERED: SODIUM CHLOR 0.9% 1000 ML INJ 1,000 ML IV ONE (02:45)
[2017-07-12] MEDS ORDERED: KETOROLAC TROMETHAMINE 30 MG/ML (IVP) VIAL IVP ONE (02:45)
[2017-07-12] MEDS ORDERED: SODIUM CHLORIDE 0.9% FLUSH 10 ML FLUSH IVF PRN (02:45)
--- NOTE | 2017-07-12 02:51 | PD ---
HPI Chief Complaint: Sickle Cell Time Seen by Provider: 02:38 Travel History International Travel<30 days: No Contact w/Intl Traveler<30days: No Traveled to known affect area: No History of Present Illness HPI 31 y/o female presents with pain to her legs and low back. She states she started her menstrual cycle 2 days ago. She states that the pain is sharp. She denies any other concurrent complaints. She states her Lortab she has at home is not helping. She states she followed with her child custody evaluator and that her counts were where she should be. She states her symptoms just started today. Quality pain is sharp. Severity severe. She denies specific modifying factors. PFSH Past Medical History Hx Anticoagulant Therapy: No Anemia: Yes Arthritis: No Asthma: No Autoimmune Disease: No Blood Disorders: Yes (sickle cell disease) Anxiety: No Depression: No Heart Rhythm Problems: No Cancer: No Cardiovascular Problems: No High Cholesterol: No Chemotherapy: No Chest Pain: No Congestive Heart Failure: No COPD: No Cerebrovascular Accident: No Diabetes: No Diminished Hearing: No Endocrine: No Gastrointestinal Disorders: Yes (GALLSTONES) GERD: No Genitourinary: No Headaches: Yes Hiatal Hernia: No Heparin Induced Thrombocytopen: No Immune Disorder: No Implanted Vascular Access Dvce: Yes (RIGHT CHEST ) Insomnia: Yes Kidney Stones: Yes Musculoskeletal: No Neurologic: No Psychiatric: No Reproductive: No Respiratory: No Immunizations Current: Yes Migraines: No Pneumonia: Yes Radiation Therapy: No Renal Failure: No Seizures: No Sickle Cell Disease: Yes Sleep Apnea: No Thyroid Disease: No Ulcer: No PNEUMOCCOCAL Vaccine (Year): 2 ?: Not LMP: 07/10/17 : 2 Para: 1 Miscarriage: 1 : 0 Tubal Ligation: Yes Past Surgical History Abdominal Surgery: Yes AICD: No Arteriovenous Shunt: No Body Medical Devices: right chest port Cardiac Surgery: No Section: Yes (X 1) Cholecystectomy: Yes Ear Surgery: No Endocrine Surgery: No Eye Surgery: No Genitourinary Surgery: No Gynecologic Surgery: Yes (tubal ligation) Hysterectomy: No Insulin Pump: No Joint Replacement: No Oral Surgery: Yes Pacemaker: No Thoracic Surgery: Yes (CHEST PORT ) Tonsillectomy: Yes Other Surgery: Yes (right chest port) Social History Alcohol Use: No Tobacco Use: No Substance Use: No Allergies-Medications (Allergen,Severity, Reaction): Coded Allergies: morphine (Verified Allergy, Severe, RASH, 07/12/17) *MDRO Multi-Drug Resistant Organism (Verified Adverse Reaction, Unknown, MRSA, 07/12/17) MRSA (blood) - 12/18/2004 MRSA PCR screen NEGATIVE 08/27/16 & 09/21/16 Cleared per Infection Control Reported Meds & Prescriptions Reported Meds & Active Scripts Active Hydrocodone-Acetaminophen 10-325 mg Tab 1 Tab PO Q6H PRN K-Tab (Potassium Chloride) 20 Meq Tab 20 Meq PO BID 3 Days Reported Folic Acid 0.4 Mg Tab 400 Mcg PO DAILY Review of Systems Except as stated in HPI: all other systems reviewed are Neg Physical Exam Narrative GENERAL: 31 y/o female in no apparent distress SKIN: Focused skin assessment warm/dry. HEAD: Atraumatic. Normocephalic. EYES: No scleral icterus. No injection or drainage. ENT: No nasal bleeding or discharge. NECK: Trachea midline. No JVD. CARDIOVASCULAR: Regular rate and rhythm. RESPIRATORY: No accessory muscle use. Clear to auscultation. Breath sounds equal bilaterally. GASTROINTESTINAL: Abdomen soft, non-tender, nondistended. MUSCULOSKELETAL: No obvious deformities. No clubbing. No cyanosis. No edema. NEUROLOGICAL: Awake and alert. No obvious cranial nerve deficits. Motor grossly within normal limits. Normal speech. Data Data Last Documented VS Vital Signs Date Time Temp Pulse Resp B/P (MAP) Pulse Ox O2 Delivery O2 Flow Rate FiO2 07/12/17 02:37 97.9 80 18 110/63 (79) 98 Room Air Orders Orders Basic Metabolic Panel (Bmp) (07/12/17 02:45) Complete Blood Count With Diff (07/12/17 02:45) Retic Count (07/12/17 02:45) Ketorolac Inj (Toradol Inj) (07/12/17 02:45) Sodium Chloride 0.9% Flush (Ns Flush) (07/12/17 02:45) Sodium Chlor 0.9% 1000 Ml Inj (Ns 1000 M (07/12/17 02:45) MDM Medical Decision Making Medical Screen Exam Complete: Yes Emergency Medical Condition: Yes Medical Record Reviewed: Yes (pmh confirmed, recent er visit noted) Differential Diagnosis sickle crisis, anemia, chronic pain Narrative Course will check labs and dose with toradol and reevaluate 305 notified by staff that patient elected to leave AMA and would not stay any to talk with me further Diagnosis Primary Impression: Sickle cell anemia Disposition: 07 AGAINST MEDICAL ADVICE Condition: Stable Ria Javed MD Jul 12, 2017 02:51
== END 2017-07-12 03:13 | disposition left against medical advice (07) ==
LOC: NEPC 02:09
DX: D57.1 Sickle-cell disease without crisis (principal); Z79.899 Other long term (current) drug therapy; Z88.5 Allergy status to narcotic agent
CPT/HCPCS: 99281

== ENCOUNTER 2017-07-15 02:31 | Emergency (ER) | payer OTHER ==
[~2017-07-15] VITALS: Ht 152.4 cm; Wt 55.0 kg
[2017-07-15 03:28] VITALS: BP 113/60; PULSE 83; RESP 18; TEMP 98.6; O2SAT 95
[2017-07-15] MEDS ORDERED: ONDANSETRON ODT 4 MG TAB PO ONE (09:30)
--- NOTE | 2017-07-15 09:50 | PD ---
HPI Chief Complaint: Abdominal Pain Time Seen by Provider: 09:26 Travel History International Travel<30 days: No Contact w/Intl Traveler<30days: No Traveled to known affect area: No History of Present Illness HPI 31 y/o female presents stating she's been having nonbloody emesis and diarrhea with abdominal pain since she left here. She states that she's willing to stay this time for treatment. She states that she's not having any other new complaints and she was here. She denies any sick contacts. She denies specific modifying factors. Quality is nonbloody. Severity is multiple episodes per patient. Duration is over the past couple of days. She states she finished her menstrual cycle yesterday. PFSH Past Medical History Hx Anticoagulant Therapy: No Anemia: Yes Arthritis: No Asthma: No Autoimmune Disease: No Blood Disorders: Yes (sickle cell disease) Anxiety: No Depression: No Heart Rhythm Problems: No Cancer: No Cardiovascular Problems: No High Cholesterol: No Chemotherapy: No Chest Pain: No Congestive Heart Failure: No COPD: No Cerebrovascular Accident: No Diabetes: No Diminished Hearing: No Endocrine: No Gastrointestinal Disorders: Yes (GALLSTONES) GERD: No Genitourinary: No Headaches: Yes Hiatal Hernia: No Heparin Induced Thrombocytopen: No Immune Disorder: No Implanted Vascular Access Dvce: Yes (RIGHT CHEST ) Insomnia: Yes Kidney Stones: Yes Musculoskeletal: No Neurologic: No Psychiatric: No Reproductive: No Respiratory: No Immunizations Current: Yes Migraines: No Pneumonia: Yes Radiation Therapy: No Renal Failure: No Seizures: No Sickle Cell Disease: Yes Sleep Apnea: No Thyroid Disease: No Ulcer: No Tetanus Vaccination: < 5 Years Influenza Vaccination: No PNEUMOCCOCAL Vaccine (Year): 2 ?: Not LMP: 06/27/2015 : 2 Para: 1 Miscarriage: 1 : 0 Tubal Ligation: Yes Past Surgical History Abdominal Surgery: Yes AICD: No Arteriovenous Shunt: No Body Medical Devices: right chest port Cardiac Surgery: No Section: Yes (X 1) Cholecystectomy: Yes Ear Surgery: No Endocrine Surgery: No Eye Surgery: No Genitourinary Surgery: No Gynecologic Surgery: Yes (tubal ligation) Hysterectomy: No Insulin Pump: No Joint Replacement: No Oral Surgery: Yes Pacemaker: No Thoracic Surgery: Yes (CHEST PORT ) Tonsillectomy: Yes Other Surgery: Yes (right chest port) Social History Alcohol Use: No Tobacco Use: No Substance Use: No Allergies-Medications (Allergen,Severity, Reaction): Coded Allergies: morphine (Verified Allergy, Severe, RASH, 07/15/17) *MDRO Multi-Drug Resistant Organism (Verified Adverse Reaction, Unknown, MRSA, 07/15/17) MRSA (blood) - 12/18/2004 MRSA PCR screen NEGATIVE 08/27/16 & 09/21/16 Cleared per Infection Control Reported Meds & Prescriptions Reported Meds & Active Scripts Active Hydrocodone-Acetaminophen 10-325 mg Tab 1 Tab PO Q6H PRN K-Tab (Potassium Chloride) 20 Meq Tab 20 Meq PO BID 3 Days Reported Folic Acid 0.4 Mg Tab 400 Mcg PO DAILY Review of Systems Except as stated in HPI: all other systems reviewed are Neg Physical Exam Narrative GENERAL: 31-year-old female in no apparent distress SKIN: Focused skin assessment warm/dry. HEAD: Atraumatic. Normocephalic. EYES: Pupils equal and round. No scleral icterus. No injection or drainage. ENT: No nasal bleeding or discharge. Mucous membranes pink and moist. NECK: Trachea midline. No JVD. CARDIOVASCULAR: Regular rate and rhythm. RESPIRATORY: No accessory muscle use. Clear to auscultation. Breath sounds equal bilaterally. GASTROINTESTINAL: Abdomen soft, non-tender, nondistended. MUSCULOSKELETAL: No obvious deformities. No clubbing. No cyanosis. No edema. NEUROLOGICAL: Awake and alert. No obvious cranial nerve deficits. Motor grossly within normal limits. Normal speech. PSYCHIATRIC: Appropriate mood and affect; insight and judgment normal. Data Data Last Documented VS Vital Signs Date Time Temp Pulse Resp B/P (MAP) Pulse Ox O2 Delivery O2 Flow Rate FiO2 07/15/17 03:28 98.6 83 18 113/60 (77) 95 Orders Orders Ondansetron Odt (Zofran Odt) (07/15/17 09:30) [facility] Medical Decision Making Medical Screen Exam Complete: Yes Emergency Medical Condition: Yes Medical Record Reviewed: Yes (past history confirm, my recent note reviewed) Differential Diagnosis Gastroenteritis, pancreatitis, dehydration, sickle cell crisis Narrative Course Will check blood work, urinalysis, test and dose with Zofran. When patient was notified that she would be getting Bentyl or Toradol for pain she elected to leave against advice and would not stay and talk with me further while I was seeing another patient. Diagnosis Primary Impression: Vomiting and diarrhea Additional Impression: Abdominal pain Qualified Codes: R10.9 - Unspecified abdominal pain Patient Instructions: General Instructions Med/Other Pt SpecificInfo: No Change to Meds Disposition: 07 AGAINST MEDICAL ADVICE Condition: Stable Ria Javed MD Jul 15, 2017 09:49
== END 2017-07-15 10:23 | disposition left against medical advice (07) ==
LOC: NEPE 02:31
DX: R11.10 Vomiting, unspecified (principal); R19.7 Diarrhea, unspecified; R10.9 Unspecified abdominal pain
CPT/HCPCS: 99281

== ENCOUNTER 2017-07-18 04:49 | Emergency (ER) | payer OTHER ==
[~2017-07-18] VITALS: Ht 152.4 cm; Wt 57.3 kg
[2017-07-18 05:31] VITALS: BP 113/61; PULSE 82; RESP 16; TEMP 99; O2SAT 91
== END 2017-07-18 07:25 | disposition left against medical advice (07) ==
LOC: NEPE 04:49
DX: D57.1 Sickle-cell disease without crisis (principal)
CPT/HCPCS: 99281

== ENCOUNTER 2017-07-24 03:29 | Emergency (ER) | payer OTHER ==
[~2017-07-24] VITALS: Ht 152.4 cm; Wt 59.0 kg
[2017-07-24 03:31] VITALS: BP 117/73; PULSE 106; RESP 16; TEMP 99.1; O2SAT 99
[2017-07-24] MEDS ORDERED: SODIUM CHLOR 0.9% 1000 ML INJ 1,000 ML IV ONE (03:54)
[2017-07-24] MEDS ORDERED: HYDROmorphone HCL PF 1 MG/ML VIAL IVS ONE ×2 (04:00→06:15)
[2017-07-24] MEDS ORDERED: ONDANSETRON HCL 4 MG/2 ML VIAL IVP ONE ×2 (04:00→06:15)
[2017-07-24] MEDS ORDERED: diphenhydrAMINE HCL 50 MG/ML VIAL IV PUSH ONE ×2 (04:00→06:15)
[2017-07-24] MEDS ORDERED: SODIUM CHLORIDE 0.9% FLUSH 10 ML FLUSH IVF PRN ×2 (04:00)
[2017-07-24] MEDS ORDERED: HYDROmorphone HCL PF 2 MG/ML VIAL IV ONE (04:15)
[2017-07-24 04:36] VITALS: RESP 16; O2SAT 99
--- NOTE | 2017-07-24 04:39 | PD ---
HPI Chief Complaint: Abdominal Pain Time Seen by Provider: 03:54 Travel History International Travel<30 days: No Contact w/Intl Traveler<30days: No Traveled to known affect area: No History of Present Illness HPI The patient's 31 years old. She returns to ER with a complaint of abdominal pain. She reports menstruation is concurrent and typically accounts for sickle cell related pains. Additional complaints include pain in the arms. Timing constant. Severity moderate to severe. No fever. PFSH Past Medical History Hx Anticoagulant Therapy: No Anemia: Yes Arthritis: No Asthma: No Autoimmune Disease: No Blood Disorders: Yes (sickle cell disease) Anxiety: No Depression: No Heart Rhythm Problems: No Cancer: No Cardiovascular Problems: No High Cholesterol: No Chemotherapy: No Chest Pain: No Congestive Heart Failure: No COPD: No Cerebrovascular Accident: No Diabetes: No Diminished Hearing: No Endocrine: No Gastrointestinal Disorders: Yes (GALLSTONES) GERD: No Genitourinary: No Headaches: Yes Hiatal Hernia: No Heparin Induced Thrombocytopen: No Immune Disorder: No Implanted Vascular Access Dvce: Yes (RIGHT CHEST ) Insomnia: Yes Kidney Stones: Yes Musculoskeletal: No Neurologic: No Psychiatric: No Reproductive: No Respiratory: No Immunizations Current: Yes Migraines: No Pneumonia: Yes Radiation Therapy: No Renal Failure: No Seizures: No Sickle Cell Disease: Yes Sleep Apnea: No Thyroid Disease: No Ulcer: No PNEUMOCCOCAL Vaccine (Year): 2 ?: Not : 2 Para: 1 Miscarriage: 1 : 0 Tubal Ligation: Yes Past Surgical History Abdominal Surgery: Yes AICD: No Arteriovenous Shunt: No Body Medical Devices: right chest port Cardiac Surgery: No Section: Yes (X 1) Cholecystectomy: Yes Ear Surgery: No Endocrine Surgery: No Eye Surgery: No Genitourinary Surgery: No Gynecologic Surgery: Yes (tubal ligation) Hysterectomy: No Insulin Pump: No Joint Replacement: No Oral Surgery: Yes Pacemaker: No Thoracic Surgery: Yes (CHEST PORT ) Tonsillectomy: Yes Other Surgery: Yes (right chest port) Social History Alcohol Use: No Tobacco Use: No Substance Use: No Allergies-Medications (Allergen,Severity, Reaction): Coded Allergies: morphine (Verified Allergy, Severe, RASH, 07/24/17) *MDRO Multi-Drug Resistant Organism (Verified Adverse Reaction, Unknown, MRSA, 07/24/17) MRSA (blood) - 12/18/2004 MRSA PCR screen NEGATIVE 08/27/16 & 09/21/16 Cleared per Infection Control Reported Meds & Prescriptions Reported Meds & Active Scripts Active Hydrocodone-Acetaminophen 10-325 mg Tab 1 Tab PO Q6H PRN K-Tab (Potassium Chloride) 20 Meq Tab 20 Meq PO BID 3 Days Reported Folic Acid 0.4 Mg Tab 400 Mcg PO DAILY Review of Systems Except as stated in HPI: all other systems reviewed are Neg Physical Exam Narrative GENERAL: 31 yo F, WNWD, mild distress Vital Signs Date Time Temp Pulse Resp B/P (MAP) Pulse Ox O2 Delivery O2 Flow Rate FiO2 07/24/17 03:31 99.1 106 16 117/73 (88) 99 SKIN: Warm and dry. HEAD: Atraumatic. Normocephalic. EYES: Pupils equal and round. No scleral icterus. No injection or drainage. ENT: No nasal bleeding or discharge. Mucous membranes pink and moist. NECK: Trachea midline. No JVD. CARDIOVASCULAR: Regular rate and rhythm. RESPIRATORY: No accessory muscle use. Clear to auscultation. Breath sounds equal bilaterally. GASTROINTESTINAL: Abdomen soft, non-tender, nondistended. Hepatic and splenic margins not palpable. MUSCULOSKELETAL: Extremities without clubbing, cyanosis, or edema. No obvious deformities. NEUROLOGICAL: Awake and alert. No obvious cranial nerve deficits. Motor grossly within normal limits. Five out of 5 muscle strength in the arms and legs. Normal speech. PSYCHIATRIC: Appropriate mood and affect; insight and judgment normal. Data Data Last Documented VS Vital Signs Date Time Temp Pulse Resp B/P (MAP) Pulse Ox O2 Delivery O2 Flow Rate FiO2 07/24/17 04:36 16 99 Room Air 07/24/17 03:31 99.1 106 117/73 (88) Orders Orders Complete Blood Count With Diff (07/24/17 03:54) Comprehensive Metabolic Panel (07/24/17 03:54) Urinalysis - C+S If Indicated (07/24/17 03:54) Chest, Single Ap (07/24/17 03:54) Ecg Monitoring (07/24/17 03:54) Iv Access Insert/Monitor (07/24/17 03:54) Oximetry (07/24/17 03:54) Ondansetron Inj (Zofran Inj) (07/24/17 04:00) Sodium Chloride 0.9% Flush (Ns Flush) (07/24/17 04:00) Sodium Chlor 0.9% 1000 Ml Inj (Ns 1000 M (07/24/17 03:54) Hydromorphone Pf Inj (Dilaudid Pf Inj) (07/24/17 04:00) Diphenhydramine Inj (Benadryl Inj) (07/24/17 04:00) Heparin Central Flush (Heparin Central F (07/24/17 04:00) Sodium Chloride 0.9% Flush (Ns Flush) (07/24/17 04:00) Heparin Central Flush (Heparin Central F (07/24/17 04:00) Heparin Central Flush (Heparin Central F (07/24/17 04:00) Hydromorphone Pf Inj (Dilaudid Pf Inj) (07/24/17 04:15) Ondansetron Inj (Zofran Inj) (07/24/17 06:15) Hydromorphone Pf Inj (Dilaudid Pf Inj) (07/24/17 06:15) Diphenhydramine Inj (Benadryl Inj) (07/24/17 06:15) Ed Discharge Order (07/24/17 06:40) Labs Laboratory Tests Test 07/24/17 04:15 07/24/17 04:24 Urine Color YELLOW Urine Turbidity HAZY Urine pH 6.0 Urine Specific [place] 1.009 Urine Protein NEG mg/dL Urine Glucose (UA) NEG mg/dL Urine Ketones NEG mg/dL Urine Occult Blood TRACE Urine Nitrite NEG Urine Bilirubin NEG Urine Urobilinogen 4.0 MG/DL Urine Leukocyte Esterase TRACE Urine RBC LESS THAN 1 /hpf Urine WBC 1 /hpf Urine Squamous Epithelial Cells 9 /hpf Urine Bacteria RARE /hpf Urine Mucus FEW /lpf Microscopic Urinalysis Comment CULT NOT INDICATED White Blood Count 11.9 TH/MM3 Red Blood Count 2.28 MIL/MM3 Hemoglobin 7.3 GM/DL Hematocrit 19.8 % Mean Corpuscular Volume 86.7 FL Mean Corpuscular Hemoglobin 31.9 PG Mean Corpuscular Hemoglobin Concent 36.8 % Red Cell Distribution Width 22.4 % Platelet Count 331 TH/MM3 Mean Platelet Volume 8.3 FL Neutrophils (%) (Auto) 61.1 % Lymphocytes (%) (Auto) 23.0 % Monocytes (%) (Auto) 11.2 % Eosinophils (%) (Auto) 3.6 % Basophils (%) (Auto) 1.1 % Neutrophils # (Auto) 7.3 TH/MM3 Lymphocytes # (Auto) 2.7 TH/MM3 Monocytes # (Auto) 1.3 TH/MM3 Eosinophils # (Auto) 0.4 TH/MM3 Basophils # (Auto) 0.1 TH/MM3 CBC Comment AUTO DIFF Differential Total Cells Counted 100 Neutrophils % (Manual) 66 % Band Neutrophils % 1 % Lymphocytes % 20 % Monocytes % 11 % Eosinophils % 1 % Basophils % 1 % Neutrophils # (Manual) 8.0 TH/MM3 Nucleated Red Blood Cells 4 /100 WBC Differential Comment FINAL DIFF MANUAL Platelet Estimate NORMAL Platelet Morphology Comment NORMAL Polychromasia 5.0 % Basophilic Stippling FAINT Sickle Cells 2+ [place] Bodies PRESENT Acanthocytes OCC Blood Urea Nitrogen 4 MG/DL Creatinine 0.49 MG/DL Random Glucose 94 MG/DL Total Protein 8.0 GM/DL Albumin 3.4 GM/DL Calcium Level 8.4 MG/DL Alkaline Phosphatase 83 U/L Aspartate Amino Transf (AST/SGOT) 69 U/L Alanine Aminotransferase (ALT/SGPT) 14 U/L Total Bilirubin 2.6 MG/DL Sodium Level 138 MEQ/L Potassium Level 4.2 MEQ/L Chloride Level 106 MEQ/L Carbon Dioxide Level 22.3 MEQ/L Anion Gap 10 MEQ/L Estimat Glomerular Filtration Rate 176 ML/MIN MDM Medical Decision Making Medical Screen Exam Complete: Yes Emergency Medical Condition: Yes Differential Diagnosis sickle cell anemia, UTI, anemia Narrative Course CBC & BMP Diagram 07/24/17 04:24 Total Protein 8.0, Albumin 3.4, Calcium Level 8.4 L, Alkaline Phosphatase 83, Aspartate Amino Transf (AST/SGOT) 69 H, Alanine Aminotransferase (ALT/SGPT) 14, Total Bilirubin 2.6 H Pain controlled. Patient's ready to discharge. Return precautions discussed. Diagnosis Primary Impression: Sickle cell pain crisis Referrals: Primary Care Physician 2 days Med/Other Pt SpecificInfo: No Change to Meds Disposition: 01 DISCHARGE HOME Condition: Stable Mac Pulido MD Jul 24, 2017 04:39
--- NOTE | 2017-07-24 04:54 | RADRPT ---
EXAM DATE/TIME: 07/24/2017 04:06 [facility] COMPARISON: CHEST SINGLE AP, June 27, 2017, 6:29. INDICATIONS : abdominal pain. MEDICAL HISTORY : Sickle Cell disease. SURGICAL HISTORY : [id number] ENCOUNTER: Initial ACUITY: 1 day PAIN SCORE: 8/10 LOCATION: Bilateral abdomen FINDINGS: A single view of the chest demonstrates the lungs to be symmetrically aerated without evidence of mas s, infiltrate or effusion. The cardiomediastinal contours are unremarkable. Osseous structures are intact. Right-sided Port-A-Cath. No free air seen below either hemidiaphragm. CONCLUSION: Normal examination. Marquis Dukes Jr., MD on July 24, 2017 at 4:52 Board Certified Radiologist. This report was verified electronically.
[2017-07-24 04:58] LABS: AUTOMATED NEUTROPHIL # 7.3 TH/MM3 (1.8-7.7); BASOPHIL # 0.1 TH/MM3 (0-0.2); BASOPHIL % 1.1 % (0.0-2.0); EOSINOPHIL # 0.4 TH/MM3 (0-0.4); EOSINOPHIL % 3.6 % (0.0-4.0); HEMOGLOBIN 7.3 GM/DL (11.6-15.3); LYMPHOCYTE # 2.7 TH/MM3 (1.0-4.8); MEAN CELL VOLUME 86.7 FL (80.0-100.0); MEAN CORPUSCULAR HEMOGLOBIN 31.9 PG (27.0-34.0); MEAN PLATELET VOLUME 8.3 FL (7.0-11.0); MONO % 11.2 % (0.0-8.0); MONOCYTE # 1.3 TH/MM3 (0-0.9); NEUT % 61.1 % (16.0-70.0); PLATELET COUNT 331 TH/MM3 (150-450); RED BLOOD COUNT 2.28 MIL/MM3 (4.00-5.30); RED CELL DISTRIBUTION WIDTH 22.4 % (11.6-17.2); WHITE BLOOD COUNT 11.9 TH/MM3 (4.0-11.0)
[2017-07-24 05:01] LABS: MEAN CORPUSCULAR HGB CONC 36.8 % (32.0-36.0)
[2017-07-24 05:04] LABS: HEMATOCRIT 19.8 % (35.0-46.0)
[2017-07-24 05:14] LABS: ALKALINE PHOSPHATASE 83 U/L (45-117); TOTAL BILIRUBIN ADULT 2.6 MG/DL (0.2-1.0)
[2017-07-24 05:19] LABS: BACTERIA, URINE RARE /hpf; BILIRUBIN, URINE NEG (NEG); BLOOD, URINE TRACE (NEG); GLUCOSE,URINE NEG (NEG); KETONE, URINE NEG (NEG); MUCUS URINE FEW /lpf (OCC); NITRITE,URINE NEG (NEG); SQUAMOUS EPITHELIAL CELL URINE 9 /hpf (0-5); URINE COLOR YELLOW (YELLW/STRAW); URINE LEUKOCYTE ESTERASE TRACE (NEG)
[2017-07-24 05:20] LABS: ALBUMIN 3.4 GM/DL (3.4-5.0); ALT (GPT) 14 U/L (10-53); AST (GOT) 69 U/L (15-37); BICARBONATE 22.3 MEQ/L (21.0-32.0); BLOOD UREA NITROGEN 4 MG/DL (7-18); CALCIUM 8.4 MG/DL (8.5-10.1); CHLORIDE 106 MEQ/L (98-107); CREATININE 0.49 MG/DL (0.50-1.00); GLOMERULAR FILTRATION RATE 176 ML/MIN (>89); GLUCOSE,RANDOM 94 MG/DL (74-106); SODIUM (NA) 138 MEQ/L (136-145)
[2017-07-24 06:06] LABS: BANDS 1 % (0-6); BASOPHILS 1 % (0-2); CORRECTED NUCLEATED RBC 4 /100 WBC (0-0); LYMPHOCYTES 20 % (9-44); MONOCYTES 11 % (0-8); NUCLEATED RED BLOOD CELL 4 (0-0); POLYS (SEG NEUTROPHILS) 66 % (16-70)
[2017-07-24 06:07] LABS: HOWELL-JOLLY BODIES PRESENT (NONE SEEN); SICKLE CELLS 2+ (NORMAL)
[2017-07-24 06:09] LABS: ACANTHOCYTES OCC (NORMAL)
== END 2017-07-24 06:57 | disposition home or self-care (01) ==
LOC: NEPE 03:29
DX: D57.00 Hb-SS disease with crisis, unspecified (principal); R10.9 Unspecified abdominal pain; M79.603 Pain in arm, unspecified; D64.9 Anemia, unspecified; K80.80 Other cholelithiasis without obstruction; Z88.5 Allergy status to narcotic agent; Z79.899 Other long term (current) drug therapy
CPT/HCPCS: 71045; 80053; 81001; 85007; 85027; 96361; 96374; 96375; 96376; 99284; J1170; J1200; J1642; J2405; J7030

== ENCOUNTER 2017-07-29 03:16 | Emergency (ER) | payer OTHER ==
[2017-07-29 04:07] VITALS: BP 119/63; PULSE 99; RESP 18; TEMP 98.9; O2SAT 95
== END 2017-07-29 06:30 | disposition left against medical advice (07) ==
LOC: NED 03:16
DX: D57.1 Sickle-cell disease without crisis (principal)
CPT/HCPCS: 99281

== ENCOUNTER 2017-07-31 04:06 | Emergency (ER) | payer OTHER ==
[~2017-07-31] VITALS: Ht 152.4 cm; Wt 69.0 kg
[2017-07-31 04:14] VITALS: BP 124/63; PULSE 100; RESP 16; TEMP 99; O2SAT 97
[2017-07-31] MEDS ORDERED: SODIUM CHLOR 0.9% 1000 ML INJ 1,000 ML IV ONE (04:22)
[2017-07-31] MEDS ORDERED: KETOROLAC TROMETHAMINE 30 MG/ML (IVP) VIAL IVP ONE (04:30)
[2017-07-31] MEDS ORDERED: SODIUM CHLORIDE 0.9% FLUSH 10 ML FLUSH IVF PRN (04:30)
--- NOTE | 2017-07-31 04:43 | PD ---
HPI . Sickle cell crisis Chief Complaint: Sickle Cell Time Seen by Provider: 04:22 Travel History International Travel<30 days: No Contact w/Intl Traveler<30days: No Traveled to known affect area: No History of Present Illness HPI This patient presents complaining with sickle cell crisis. Onset yesterday. She is complaining of pain in her back and legs. She denies fever or urinary tract symptoms. Her symptoms have been unrelieved by fluids and Lortab at home. Modifying factor is her menstrual cycle. She has increased problems with her sickle cell anemia when she is menstruating. PFSH Past Medical History Hx Anticoagulant Therapy: No Anemia: Yes Arthritis: No Asthma: No Autoimmune Disease: No Blood Disorders: Yes (sickle cell disease) Anxiety: No Depression: No Heart Rhythm Problems: No Cancer: No Cardiovascular Problems: No High Cholesterol: No Chemotherapy: No Chest Pain: No Congestive Heart Failure: No COPD: No Cerebrovascular Accident: No Diabetes: No Diminished Hearing: No Endocrine: No Gastrointestinal Disorders: Yes (GALLSTONES) GERD: No Genitourinary: No Headaches: Yes Hiatal Hernia: No Heparin Induced Thrombocytopen: No Immune Disorder: No Implanted Vascular Access Dvce: Yes (RIGHT CHEST ) Insomnia: Yes Kidney Stones: Yes Musculoskeletal: No Neurologic: No Psychiatric: No Reproductive: No Respiratory: No Immunizations Current: Yes Migraines: No Pneumonia: Yes Radiation Therapy: No Renal Failure: No Seizures: No Sickle Cell Disease: Yes Sleep Apnea: No Thyroid Disease: No Ulcer: No Tetanus Vaccination: < 5 Years Influenza Vaccination: Yes PNEUMOCCOCAL Vaccine (Year): 2 ?: Unknown LMP: 07/31/17 : 2 Para: 1 Miscarriage: 1 : 0 Tubal Ligation: Yes Past Surgical History Abdominal Surgery: Yes AICD: No Arteriovenous Shunt: No Body Medical Devices: right chest port Cardiac Surgery: No Section: Yes (X 1) Cholecystectomy: Yes Ear Surgery: No Endocrine Surgery: No Eye Surgery: No Genitourinary Surgery: No Gynecologic Surgery: Yes (tubal ligation) Hysterectomy: No Insulin Pump: No Joint Replacement: No Oral Surgery: Yes Pacemaker: No Thoracic Surgery: Yes (CHEST PORT ) Tonsillectomy: Yes Other Surgery: Yes (right chest port) Social History Alcohol Use: No Tobacco Use: No Substance Use: No Allergies-Medications (Allergen,Severity, Reaction): Coded Allergies: morphine (Verified Allergy, Severe, RASH, 3/22/18) *MDRO Multi-Drug Resistant Organism (Verified Adverse Reaction, Unknown, MRSA, 07/31/17) MRSA (blood) - 12/18/2004 MRSA PCR screen NEGATIVE 08/27/16 & 09/21/16 Cleared per Infection Control Reported Meds & Prescriptions Reported Meds & Active Scripts Active Hydrocodone-Acetaminophen 10-325 mg Tab 1 Tab PO Q6H PRN K-Tab (Potassium Chloride) 20 Meq Tab 20 Meq PO BID 3 Days Reported Folic Acid 0.4 Mg Tab 400 Mcg PO DAILY Review of Systems Except as stated in HPI: all other systems reviewed are Neg General / Constitutional: No: Fever, Chills Cardiovascular: No: Chest Pain or Discomfort Respiratory: No: Shortness of Breath Gastrointestinal: No: Nausea, Vomiting, Diarrhea Genitourinary: No: Urgency, Frequency, Dysuria Musculoskeletal: Positive: Myalgias Neurologic: Positive: Weakness Physical Exam Narrative GENERAL: This patient looks her usual self. She is in no distress. SKIN: warm/dry. HEAD: Normocephalic. Atraumatic. EYES: Pupils equal and round. No scleral icterus. No injection or drainage. ENT: No nasal bleeding or discharge. Mucous membranes pink and moist. NECK: Trachea midline. Full range of motion without pain.. CARDIOVASCULAR: Regular rate and rhythm. RESPIRATORY: No accessory muscle use. Clear to auscultation. Breath sounds equal bilaterally. MUSCULOSKELETAL: No obvious deformities. NEUROLOGICAL: Awake and alert. No obvious cranial nerve deficits. Motor grossly within normal limits. Normal speech. PSYCHIATRIC: Appropriate mood and affect; insight and judgment normal. Data Data Last Documented VS Vital Signs Date Time Temp Pulse Resp B/P (MAP) Pulse Ox O2 Delivery O2 Flow Rate FiO2 07/31/17 04:47 16 97 Room Air 07/31/17 04:14 99.0 100 124/63 (83) Orders Orders Complete Blood Count With Diff (07/31/17 04:22) Comprehensive Metabolic Panel (07/31/17 04:22) Retic Count (07/31/17 04:22) Urinalysis - C+S If Indicated (07/31/17 04:22) Iv Access Insert/Monitor (07/31/17 04:22) Oximetry (07/31/17 04:22) Ketorolac Inj (Toradol Inj) (07/31/17 04:30) Sodium Chloride 0.9% Flush (Ns Flush) (07/31/17 04:30) Sodium Chlor 0.9% 1000 Ml Inj (Ns 1000 M (07/31/17 04:22) Diphenhydramine Inj (Benadryl Inj) (07/31/17 05:30) Hydromorphone Pf Inj (Dilaudid Pf Inj) (07/31/17 05:30) Labs Laboratory Tests Test 07/31/17 04:45 White Blood Count 14.2 TH/MM3 Red Blood Count 2.54 MIL/MM3 Hemoglobin 8.1 GM/DL Hematocrit 22.0 % Mean Corpuscular Volume 86.5 FL Mean Corpuscular Hemoglobin 31.8 PG Mean Corpuscular Hemoglobin Concent 36.8 % Red Cell Distribution Width 25.2 % Platelet Count 322 TH/MM3 Mean Platelet Volume 8.1 FL Neutrophils (%) (Auto) 59.5 % Lymphocytes (%) (Auto) 30.3 % Monocytes (%) (Auto) 7.8 % Eosinophils (%) (Auto) 1.5 % Basophils (%) (Auto) 0.9 % Neutrophils # (Auto) 8.5 TH/MM3 Lymphocytes # (Auto) 4.3 TH/MM3 Monocytes # (Auto) 1.1 TH/MM3 Eosinophils # (Auto) 0.2 TH/MM3 Basophils # (Auto) 0.1 TH/MM3 CBC Comment AUTO DIFF Differential Total Cells Counted 100 Neutrophils % (Manual) 59 % Lymphocytes % 31 % Monocytes % 7 % Eosinophils % 3 % Neutrophils # (Manual) 8.4 TH/MM3 Nucleated Red Blood Cells 11 /100 WBC Differential Comment FINAL DIFF MANUAL Platelet Estimate NORMAL Platelet Morphology Comment NORMAL Sickle Cells 3+ Target Cells 1+ Tear Drop Cells 1+ Reticulocyte Count 12.7 % Absolute Reticulocyte Count 321.5 MIL/L Blood Urea Nitrogen 8 MG/DL Creatinine 0.61 MG/DL Random Glucose 95 MG/DL Total Protein 8.4 GM/DL Albumin 3.6 GM/DL Calcium Level 8.5 MG/DL Alkaline Phosphatase 101 U/L Aspartate Amino Transf (AST/SGOT) 73 U/L Alanine Aminotransferase (ALT/SGPT) 19 U/L Total Bilirubin 2.8 MG/DL Sodium Level 140 MEQ/L Potassium Level 3.9 MEQ/L Chloride Level 106 MEQ/L Carbon Dioxide Level 26.5 MEQ/L Anion Gap 8 MEQ/L Estimat Glomerular Filtration Rate 137 ML/MIN MDM Medical Decision Making Medical Screen Exam Complete: Yes Emergency Medical Condition: Yes Medical Record Reviewed: Yes (This patient has multiple previous visits for sickle cell crisis.) Differential Diagnosis My differential diagnosis of sickle cell disease includes but is not limited to vaso-occlusive crisis, acute chest syndrome, occult infection, electrolyte disturbance, drug-seeking behavior. Narrative Course This patient presents with the chief complaint of sickle cell crisis. Onset was yesterday. Symptoms have been unrelieved by oral fluids and Lortab. This patient comes to the emergency department a lot for her sickle cell disease. However, she does have significant disease. I have ordered IV fluids and IV Toradol. CBC, reticulocyte count and CMP are in process. CBC & BMP Diagram 07/31/17 04:45 Total Protein 8.4 H, Albumin 3.6, Calcium Level 8.5, Alkaline Phosphatase 101, Aspartate Amino Transf (AST/SGOT) 73 H, Alanine Aminotransferase (ALT/SGPT) 19, Total Bilirubin 2.8 H These are baseline for her. The patient reported no pain relief with Toradol. I have subsequently ordered Benadryl and Dilaudid. She will be discharged home following the Benadryl and Dilaudid. The history, exam, diagnostic testing, and current condition do not suggest any significant pathology to warrant further testing, continued ED treatment, admission, or surgical evaluation at this point. No EMC was found. The patient 's condition is stable and appropriate for discharge. Diagnosis Primary Impression: Sickle cell crisis Disposition: 01 DISCHARGE HOME Condition: Stable Inna Delacruz MD Jul 31, 2017 04:43
[2017-07-31 04:47] VITALS: RESP 16; O2SAT 97
[2017-07-31 05:06] LABS: AUTOMATED NEUTROPHIL # 8.5 TH/MM3 (1.8-7.7); BASOPHIL # 0.1 TH/MM3 (0-0.2); BASOPHIL % 0.9 % (0.0-2.0); EOSINOPHIL # 0.2 TH/MM3 (0-0.4); EOSINOPHIL % 1.5 % (0.0-4.0); HEMOGLOBIN 8.1 GM/DL (11.6-15.3); LYMPH % 30.3 % (9.0-44.0); LYMPHOCYTE # 4.3 TH/MM3 (1.0-4.8); MEAN CELL VOLUME 86.5 FL (80.0-100.0); MEAN CORPUSCULAR HEMOGLOBIN 31.8 PG (27.0-34.0); MEAN PLATELET VOLUME 8.1 FL (7.0-11.0); MONO % 7.8 % (0.0-8.0); MONOCYTE # 1.1 TH/MM3 (0-0.9); NEUT % 59.5 % (16.0-70.0); PLATELET COUNT 322 TH/MM3 (150-450); RED BLOOD COUNT 2.54 MIL/MM3 (4.00-5.30); RED CELL DISTRIBUTION WIDTH 25.2 % (11.6-17.2); RETIC # 321.5 MIL/L (20.0-150.0); RETIC % 12.7 % (0.4-3.0); WHITE BLOOD COUNT 14.2 TH/MM3 (4.0-11.0)
[2017-07-31 05:11] LABS: MEAN CORPUSCULAR HGB CONC 36.8 % (32.0-36.0)
[2017-07-31 05:18] LABS: ALKALINE PHOSPHATASE 101 U/L (45-117); TOTAL BILIRUBIN ADULT 2.8 MG/DL (0.2-1.0); TOTAL PROTEIN 8.4 GM/DL (6.4-8.2)
[2017-07-31] MEDS ORDERED: HYDROmorphone HCL PF 2 MG/ML VIAL IV PUSH ONE (05:30)
[2017-07-31] MEDS ORDERED: diphenhydrAMINE HCL 50 MG/ML VIAL IV PUSH ONE (05:30)
[2017-07-31 05:39] LABS: ALBUMIN 3.6 GM/DL (3.4-5.0); ALT (GPT) 19 U/L (10-53); AST (GOT) 73 U/L (15-37); BICARBONATE 26.5 MEQ/L (21.0-32.0); CALCIUM 8.5 MG/DL (8.5-10.1); CHLORIDE 106 MEQ/L (98-107); CREATININE 0.61 MG/DL (0.50-1.00); GLOMERULAR FILTRATION RATE 137 ML/MIN (>89); GLUCOSE,RANDOM 95 MG/DL (74-106); SODIUM (NA) 140 MEQ/L (136-145)
[2017-07-31 05:42] LABS: BLOOD UREA NITROGEN 8 MG/DL (7-18)
[2017-07-31 05:53] LABS: CORRECTED NUCLEATED RBC 11 /100 WBC (0-0); LYMPHOCYTES 31 % (9-44); MONOCYTES 7 % (0-8); NEUTROPHIL # MANUAL DIFF 8.4 TH/MM3 (1.8-7.7); NUCLEATED RED BLOOD CELL 11 (0-0); POLYS (SEG NEUTROPHILS) 59 % (16-70)
[2017-07-31 05:59] LABS: SICKLE CELLS 3+ (NORMAL); TARGET CELLS 1+ (NORMAL); TEARDROP RBCS 1+ (NORMAL)
== END 2017-07-31 07:24 | disposition home or self-care (01) ==
LOC: NEPC 04:06
DX: D57.00 Hb-SS disease with crisis, unspecified (principal)
CPT/HCPCS: 80053; 85007; 85027; 85044; 96361; 96374; 96375; 99284; J1170; J1200; J1885; J7030

== ENCOUNTER 2017-08-20 02:54 | Inpatient (IN) | payer OTHER ==
[~2017-08-20] VITALS: Ht 167.6 cm; Wt 57.4 kg
[2017-08-20] VITALS (8 sets, daily range): BP systolic 92–112; BP diastolic 58–67; PULSE 60–83; RESP 16–20; TEMP 97.3–99.4; O2SAT 89–100
[2017-08-20] MEDS ORDERED: HYDR500C PO (03:44)
[2017-08-20] MEDS ORDERED: SODIUM CHLOR 0.9% 1000 ML INJ 1,000 ML IV ONE (04:09)
[2017-08-20] MEDS ORDERED: diphenhydrAMINE HCL 50 MG/ML VIAL IV PUSH ONE ×2 (04:15→06:15)
[2017-08-20] MEDS ORDERED: ONDANSETRON HCL 4 MG/2 ML VIAL IVP ONE (04:15)
[2017-08-20] MEDS ORDERED: SODIUM CHLORIDE 0.9% FLUSH 10 ML FLUSH IVF PRN (04:15)
[2017-08-20] MEDS ORDERED: HYDROmorphone HCL PF 1 MG/ML VIAL IVS ONE (04:15)
[2017-08-20] MEDS ORDERED: HYDROmorphone HCL PF 2 MG/ML VIAL IV PUSH ONE (04:45)
[2017-08-20 04:50] LABS: AUTOMATED NEUTROPHIL # 3.6 TH/MM3 (1.8-7.7); BASOPHIL # 0.1 TH/MM3 (0-0.2); EOSINOPHIL # 0.2 TH/MM3 (0-0.4); EOSINOPHIL % 2.4 % (0.0-4.0); LYMPH % 44.3 % (9.0-44.0); LYMPHOCYTE # 3.9 TH/MM3 (1.0-4.8); MEAN CELL VOLUME 84.6 FL (80.0-100.0); MEAN CORPUSCULAR HEMOGLOBIN 31.9 PG (27.0-34.0); MEAN PLATELET VOLUME 8.6 FL (7.0-11.0); MONO % 11.4 % (0.0-8.0); NEUT % 40.9 % (16.0-70.0); PLATELET COUNT 312 TH/MM3 (150-450); RED BLOOD COUNT 2.13 MIL/MM3 (4.00-5.30); RED CELL DISTRIBUTION WIDTH 24.4 % (11.6-17.2); RETIC # 215.5 MIL/L (20.0-150.0); RETIC % 10.1 % (0.4-3.0); WHITE BLOOD COUNT 8.8 TH/MM3 (4.0-11.0)
[2017-08-20 04:51] LABS: HEMOGLOBIN 6.8 GM/DL (11.6-15.3); MEAN CORPUSCULAR HGB CONC 37.7 % (32.0-36.0)
--- NOTE | 2017-08-20 04:52 | PD ---
HPI Chief Complaint: Sickle Cell Time Seen by Provider: 04:06 Travel History International Travel<30 days: No Contact w/Intl Traveler<30days: No Traveled to known affect area: No History of Present Illness HPI The patient is a 31 year old female who presents to the [facility] emergency department with a history of sickle cell pain crisis that she reports began yesterday. She reports that she has pain in her legs, low back, and chest. She reports that the symptoms are similar to her prior pain crises. The patient reports that she has had an elevated temperature at home earlier today with a T-max of 100.9. She reports that she did take her usual pain medication without relief. She is followed by Dr. Rivas for her hematologic care. The patient reports a history of having problems with her sickle cell pain crisis when she is on her menstrual cycle which did start yesterday. She reports that she has been referred to a nurses supervisor through Dr. Wahl's office and is planning to have a procedure to help with her dysmenorrhea. On review of systems otherwise, the patient denies having any recent cough or congestion, neck pain, shortness of breath, abdominal pain, vomiting, diarrhea, urinary symptoms, or neurologic symptoms. LMP: Began yesterday PFSH Past Medical History Narrative Medical The patient's past medical history is significant for sickle cell anemia, dysmenorrhea, history of pneumonia, history of headaches. Hx Anticoagulant Therapy: No Anemia: Yes Arthritis: No Asthma: No Autoimmune Disease: No Blood Disorders: Yes (sickle cell disease) Anxiety: No Depression: No Heart Rhythm Problems: No Cancer: No Cardiovascular Problems: No High Cholesterol: No Chemotherapy: No Chest Pain: No Congestive Heart Failure: No COPD: No Cerebrovascular Accident: No Diabetes: No Diminished Hearing: No Endocrine: No Gastrointestinal Disorders: Yes (GALLSTONES) GERD: No Genitourinary: No Headaches: Yes Hiatal Hernia: No Heparin Induced Thrombocytopen: No Immune Disorder: No Implanted Vascular Access Dvce: Yes (RIGHT CHEST ) Insomnia: Yes Kidney Stones: Yes Musculoskeletal: No Neurologic: No Psychiatric: No Reproductive: No Respiratory: No Immunizations Current: Yes Migraines: No Pneumonia: Yes Radiation Therapy: No Renal Failure: No Seizures: No Sickle Cell Disease: Yes Sleep Apnea: No Thyroid Disease: No Ulcer: No PNEUMOCCOCAL Vaccine (Year): 2 ?: Not LMP: 08/18/2017 : 2 Para: 1 Miscarriage: 1 : 0 Tubal Ligation: Yes Past Surgical History Narrative Surgical The patient's past surgical history is significant for an Jglnhf-e-Ireq placement, bilateral tubal ligation, 1, cholecystectomy Abdominal Surgery: Yes AICD: No Arteriovenous Shunt: No Body Medical Devices: right chest port Cardiac Surgery: No Section: Yes (X 1) Cholecystectomy: Yes Ear Surgery: No Endocrine Surgery: No Eye Surgery: No Genitourinary Surgery: No Gynecologic Surgery: Yes (tubal ligation) Hysterectomy: No Insulin Pump: No Joint Replacement: No Oral Surgery: Yes Pacemaker: No Thoracic Surgery: Yes (CHEST PORT ) Tonsillectomy: Yes Other Surgery: Yes (right chest port) Social History Alcohol Use: No Tobacco Use: No Substance Use: No Allergies-Medications (Allergen,Severity, Reaction): Coded Allergies: morphine (Verified Allergy, Severe, RASH, 08/20/17) *MDRO Multi-Drug Resistant Organism (Verified Adverse Reaction, Unknown, MRSA, 08/20/17) MRSA (blood) - 12/18/2004 MRSA PCR screen NEGATIVE 08/27/16 & 09/21/16 Cleared per Infection Control Reported Meds & Prescriptions Reported Meds & Active Scripts Active Reported Hydrea (Hydroxyurea) 500 Mg Cap 500 Mg PO DAILY Folic Acid 0.4 Mg Tab 400 Mcg PO DAILY Review of Systems Except as stated in HPI: all other systems reviewed are Neg General / Constitutional: No: Fever Eyes: No: Visual changes HENT: No: Headaches Cardiovascular: Positive: Chest Pain or Discomfort Respiratory: No: Shortness of Breath Gastrointestinal: No: Abdominal Pain Genitourinary: Positive: Vaginal Bleeding, No: Dysuria Musculoskeletal: Positive: Myalgias, Arthralgias, Pain Skin: No Rash Neurologic: No: Weakness Psychiatric: No: Depression Endocrine: No: Polydipsia Hematologic/Lymphatic: No: Easy Bruising Physical Exam Narrative General: The patient is a well-developed well-nourished female in no acute distress. Head and Neck exam: Head is normocephalic atraumatic. Eyes: EOMI, pupils are equal round and reactive to light. Nose: Midline septum with pink mucous membranes Mouth: Dentition unremarkable. Moist mucus membranes. Posterior oropharynx is not erythematous. No tonsillar hypertrophy. Uvula midline. Airway patent. Neck: No palpable lymphadenopathy. No nuchal rigidity. No thyromegaly. Cardiovascular: Regular rate and rhythm without murmurs, gallops, or rubs. Lungs: Clear to auscultation bilaterally. No wheezes, rhonchi, or rales. Abdomen: Soft, without tenderness to palpation in all 4 quadrants of the abdomen. No guarding, rebound, or rigidity. No tenderness on palpation of McBurney's point. Normal bowel sounds are audible. Extremities: No clubbing, cyanosis, or edema. 2+ pulses in all 4 extremities. No joint swelling or erythema. No ligament laxity noted. No loss of range of motion. No step-off or crepitus. Back: No spinous process tenderness to palpation. No costovertebral angle tenderness to palpation. Neurologic Exam: Grossly nonfocal. Skin Exam: No rash noted. Intact skin that is warm and dry. Data Data Last Documented VS Vital Signs Date Time Temp Pulse Resp B/P (MAP) Pulse Ox O2 Delivery O2 Flow Rate FiO2 08/20/17 04:22 89 Room Air 08/20/17 03:09 99.4 83 16 105/63 (77) Orders Orders C-Reactive Protein (Crp) (08/20/17 04:09) Complete Blood Count With Diff (08/20/17 04:09) Comprehensive Metabolic Panel (08/20/17 04:09) Retic Count (08/20/17 04:09) Ecg Monitoring (08/20/17 04:09) Iv Access Insert/Monitor (08/20/17 04:09) Oximetry (08/20/17 04:09) Oxygen Administration (08/20/17 04:09) Ondansetron Inj (Zofran Inj) (08/20/17 04:15) Sodium Chloride 0.9% Flush (Ns Flush) (08/20/17 04:15) Sodium Chlor 0.9% 1000 Ml Inj (Ns 1000 M (08/20/17 04:09) Hydromorphone Pf Inj (Dilaudid Pf Inj) (08/20/17 04:15) Diphenhydramine Inj (Benadryl Inj) (08/20/17 04:15) Hydromorphone Pf Inj (Dilaudid Pf Inj) (08/20/17 04:45) Type And Screen (08/20/17 04:55) Red Blood Cells (Rbc) (08/20/17 04:55) Blood Product Administration (08/20/17 04:55) Sodium Chlor 0.9% 250 Ml Inj (Ns 250 Ml (08/20/17 05:00) Admit Order (Ed Use Only) (08/20/17 05:24) Hydromorphone Pf Inj (Dilaudid Pf Inj) (08/20/17 05:30) Admit To Inpatient (08/20/17 ) Vital Signs (Adult) Q4H (08/20/17 05:24) Activity Oob With Assistance (08/20/17 05:24) Diet Regular Basic (08/20/17 Breakfast) Sodium Chloride 0.9% Flush (Ns Flush) (08/20/17 05:30) Sodium Chloride 0.9% Flush (Ns Flush) (08/20/17 09:00) Acetaminophen (Tylenol) (08/20/17 05:30) Ondansetron Inj (Zofran Inj) (08/20/17 05:30) Basic Metabolic Panel (Bmp) (08/21/17 06:00) Comprehensive Metabolic Panel (08/21/17 06:00) Naloxone Inj (Narcan Inj) (08/20/17 05:30) Docusate Sodium-Senna (Leticia-Colace) (08/20/17 09:00) Magnesium Hydroxide Liq (Milk Of Magnesi (08/20/17 05:30) Sennosides (Senokot) (08/20/17 05:30) Bisacodyl Supp (Dulcolax Supp) (08/20/17 05:30) Lactulose Liq (Lactulose Liq) (08/20/17 05:30) Inpatient Certification (08/20/17 ) Labs Laboratory Tests Test 08/20/17 04:21 White Blood Count 8.8 TH/MM3 Red Blood Count 2.13 MIL/MM3 Hemoglobin 6.8 GM/DL Hematocrit 18.0 % Mean Corpuscular Volume 84.6 FL Mean Corpuscular Hemoglobin 31.9 PG Mean Corpuscular Hemoglobin Concent 37.7 % Red Cell Distribution Width 24.4 % Platelet Count 312 TH/MM3 Mean Platelet Volume 8.6 FL Neutrophils (%) (Auto) 40.9 % Lymphocytes (%) (Auto) 44.3 % Monocytes (%) (Auto) 11.4 % Eosinophils (%) (Auto) 2.4 % Basophils (%) (Auto) 1.0 % Neutrophils # (Auto) 3.6 TH/MM3 Lymphocytes # (Auto) 3.9 TH/MM3 Monocytes # (Auto) 1.0 TH/MM3 Eosinophils # (Auto) 0.2 TH/MM3 Basophils # (Auto) 0.1 TH/MM3 CBC Comment AUTO DIFF Differential Total Cells Counted 100 Neutrophils % (Manual) 41 % Lymphocytes % 52 % Monocytes % 6 % Eosinophils % 1 % Neutrophils # (Manual) 3.6 TH/MM3 Nucleated Red Blood Cells 11 /100 WBC Differential Comment FINAL DIFF MANUAL Platelet Estimate NORMAL Platelet Morphology Comment NORMAL Polychromasia 2.2 % Sickle Cells 3+ Fields-Amelia Bodies PRESENT Reticulocyte Count 10.1 % Absolute Reticulocyte Count 215.5 MIL/L Blood Urea Nitrogen 7 MG/DL Creatinine 0.40 MG/DL Random Glucose 82 MG/DL Total Protein 7.3 GM/DL Albumin 3.1 GM/DL Calcium Level 7.6 MG/DL Alkaline Phosphatase 77 U/L Aspartate Amino Transf (AST/SGOT) 69 U/L Alanine Aminotransferase (ALT/SGPT) 11 U/L Total Bilirubin 2.9 MG/DL Sodium Level 140 MEQ/L Potassium Level 3.7 MEQ/L Chloride Level 108 MEQ/L Carbon Dioxide Level 23.6 MEQ/L Anion Gap 8 MEQ/L Estimat Glomerular Filtration Rate 222 ML/MIN C-Reactive Protein 0.60 MG/DL MDM Medical Decision Making Medical Screen Exam Complete: Yes Emergency Medical Condition: Yes Medical Record Reviewed: Yes Differential Diagnosis Sickle cell pain crisis, versus worsening anemia related to dysmenorrhea, versus arthritis Narrative Course During the course of the patient's emergency department visit, the patient's history, examination, and differential diagnosis were reviewed with the patient. The patient was placed on a inventory control specialist with oximetry and frequent blood pressure monitoring. The patient had IV access obtained and blood work sent for analysis. The patient was initially provided hydromorphone for pain, Zofran for nausea, Benadryl 25 mg IV for itching. The patient was given normal saline 1 L IV fluid bolus. The patient was given 2 L nasal cannula O2. The patient's laboratory studies were reviewed and remarkable for a white count of 8.8, hemoglobin 6.8 which is decreased compared to previously noted at 8.1 on July 31. Platelets are 312, neutrophils 41, lymphocytes 52. Reticulocyte count is elevated at 10.1. CMP is remarkable for chloride of 108, creatinine 0.40, calcium 7.6, total bilirubin 2.9, AST 69, C-reactive protein 0.60, albumin 3.1. The patient's coordinator skill training program does not usually want the patient transfused as long as her hemoglobin is at her baseline at 78, however the patient reports that when it goes down as low as 6 she usually requires transfusion. The patient will be admitted to the hospital for a 1 unit packed red blood cell transfusion and pain control regarding her sickle cell pain crisis. The patient's results were discussed with the patient, including the plan of care. I explained that further testing and/ or monitoring is indicated based on the patient's history, examination, and/ or laboratory findings. Therefore, I recommended admission for additional evaluation. The patient expressed understanding and was agreeable with this plan. The patient was admitted to the hospital in stable condition and sent to a bed under the care of the [facility]. Physician Communication Physician Communication The patient's case including history, pertinent physical examination findings, and laboratory studies were discussed with Dr. Hurst. It was agreed that the patient would be admitted to the [facility] service. Diagnosis Primary Impression: Sickle cell pain crisis Additional Impression: Severe anemia Admitting Information Admitting Physician Requests: Admit Mignon Lin MD Aug 20, 2017 04:52
[2017-08-20 04:54] LABS: ALT (GPT) 11 U/L (10-53)
[2017-08-20 04:56] LABS: ALKALINE PHOSPHATASE 77 U/L (45-117); TOTAL BILIRUBIN ADULT 2.9 MG/DL (0.2-1.0); TOTAL PROTEIN 7.3 GM/DL (6.4-8.2)
[2017-08-20 04:59] LABS: ALBUMIN 3.1 GM/DL (3.4-5.0); AST (GOT) 69 U/L (15-37); BICARBONATE 23.6 MEQ/L (21.0-32.0); CALCIUM 7.6 MG/DL (8.5-10.1); CHLORIDE 108 MEQ/L (98-107); GLOMERULAR FILTRATION RATE 222 ML/MIN (>89); GLUCOSE,RANDOM 82 MG/DL (74-106); SODIUM (NA) 140 MEQ/L (136-145)
[2017-08-20 05:00] LABS: BLOOD UREA NITROGEN 7 MG/DL (7-18)
[2017-08-20] MEDS ORDERED: SODIUM CHLOR 0.9% 250 ML INJ 250 ML IV ONE (05:00)
[2017-08-20] MEDS ORDERED: ACETAMINOPHEN 325 MG TAB PO PRN (05:30)
[2017-08-20] MEDS ORDERED: HYDROmorphone HCL PF 1 MG/ML VIAL IV PUSH PRN (05:30)
[2017-08-20] MEDS ORDERED: BISACODYL 10 MG SUPP RECTAL PRN (05:30)
[2017-08-20] MEDS ORDERED: MAGNESIUM HYDROXIDE SUSP 30 ML CUP PO PRN (05:30)
[2017-08-20] MEDS ORDERED: LACTULOSE SYRUP 20 GM/30 ML CUP PO PRN (05:30)
[2017-08-20] MEDS ORDERED: SENNOSIDES 8.6 MG TAB PO PRN (05:30)
[2017-08-20] MEDS ORDERED: NALOXONE HCL 0.4 MG/ML AMP IV PUSH PRN (05:30)
[2017-08-20] MEDS ORDERED: ONDANSETRON HCL 4 MG/2 ML VIAL IVP PRN (05:30)
[2017-08-20] MEDS ORDERED: SODIUM CHLORIDE 0.9% FLUSH 10 ML FLUSH IV FLUSH PRN (05:30)
[2017-08-20 05:54] LABS: CORRECTED NUCLEATED RBC 11 /100 WBC (0-0); LYMPHOCYTES 52 % (9-44); MONOCYTES 6 % (0-8); NEUTROPHIL # MANUAL DIFF 3.6 TH/MM3 (1.8-7.7); NUCLEATED RED BLOOD CELL 11 (0-0); POLYS (SEG NEUTROPHILS) 41 % (16-70)
[2017-08-20 05:55] LABS: HOWELL-JOLLY BODIES PRESENT (NONE SEEN); POLYCHROMASIA 2.2 % (0.0-1.9); SICKLE CELLS 3+ (NORMAL)
[2017-08-20] MEDS ORDERED: HYDROmorphone HCL PF 1 MG/ML VIAL IV PUSH ONE (06:15)
[2017-08-20] MEDS: DOCUSATE SODIUM 50 MG/SENNA 8.6 MG TAB PO SCH ×2 (09:00→21:00)
[2017-08-20] MEDS: FOLIC ACID 1 MG TAB PO SCH (09:07)
[2017-08-20] MEDS: HYDROXYUREA 500 MG CAP PO SCH (09:09)
[2017-08-20] MEDS: diphenhydrAMINE HCL 50 MG/ML VIAL IV PRN ×4 (09:09→22:18)
[2017-08-20] MEDS: HYDROmorphone HCL PF 2 MG/ML VIAL IV PUSH PRN ×4 (09:17→22:18)
[2017-08-20] MEDS: SODIUM CHLORIDE 0.9% FLUSH 10 ML FLUSH IV FLUSH SCH ×2 (09:18→22:17)
[2017-08-20] MEDS: SODIUM CHLOR 0.9% 1000 ML INJ 1,000 ML IV SCH (14:30)
--- NOTE | 2017-08-20 16:09 | HHI.HP ---
[facility] Unknown Admission Diagnosis Sickle Cell Pain Crisis Diagnoses: Chief Complaint: pain Travel History International Travel<30 Days: No Contact w/Intl Traveler <30 Da: No Traveled to Known Affected Are: No History of Present Illness 31 y/o F with history of multiple sickle cell pain crisis during menstruation, started experiencing back pain and legs since yesterday. LM began yesterday. Pain is getting progressively worse. The pain is worst in the knees, lower back. She reports that the symptoms are similar to her prior pain crises. She tried her Lortab 10 for the pain at home but it did not do anything. Her nausea has been alleviated by Zofran in the ED. This commonly happens during menstruation. She has severe periods and experiences pain during every cycle. She regularly comes to the ED and gets fluids, gets the pain and nausea under control, but she frequently will AMA because she hates being in the hospital. Denies any chest pain , SOB/fevers. Her heme , says she has a f/u appointment after he comes back from vacation. She has spoken with her Heme to see if there is anything else she can do about the monthly exacerbations during menstruation. She has tried Depo, which did not help. She reports that she has been referred to a volunteer patient representative through Dr. Wahl's office and is planning to have a procedure to help with her dysmenorrhea. Review of Systems Except as stated in HPI: all other systems reviewed are Neg Past Family Social History Past Medical History Sickled Cell Disease - diagnosed at 1 years old, hx per HPI Multiple blood transfusions -2-3x/year, last transfused in February 2018 on our service Past Surgical History Tubal ligation [id number] placement : 2005 Cholecystectomy 1994 Reported Medications Reported Meds & Active Scripts Active Reported Hydrea (Hydroxyurea) 500 Mg Cap 500 Mg PO DAILY Folic Acid 0.4 Mg Tab 400 Mcg PO DAILY Allergies: Coded Allergies: morphine (Verified Allergy, Severe, RASH, 08/20/17) *MDRO Multi-Drug Resistant Organism (Verified Adverse Reaction, Unknown, MRSA, 08/20/17) MRSA (blood) - 12/18/2004 MRSA PCR screen NEGATIVE 08/27/16 & 09/21/16 Cleared per Infection Control Family History Sister- sickle cell Parents- sickle cell trait Social History Denies tobacco use, EtOH or illicit drug use. Physical Exam Vital Signs Vital Signs Date Time Temp Pulse Resp B/P (MAP) Pulse Ox O2 Delivery O2 Flow Rate FiO2 08/20/17 15:48 16 08/20/17 11:10 97.6 60 20 98 08/20/17 09:39 97.3 79 18 97/66 100 08/20/17 09:25 98.7 83 18 102/62 97 08/20/17 08:00 98.3 74 17 94/58 (70) 93 08/20/17 04:22 89 Room Air 08/20/17 04:22 89 Room Air 08/20/17 03:09 99.4 83 16 105/63 (77) Physical Exam GENERAL: This is a well-nourished, well-developed patient, in no apparent distress. SKIN: No rashes, ecchymoses or lesions. Cool and dry. HEAD: Atraumatic. Normocephalic. No temporal or scalp tenderness. EYES: Pupils equal round and reactive. Extraocular motions intact. No scleral icterus. No injection or drainage. ENT: Nose without bleeding, purulent drainage or septal hematoma. Throat without erythema, tonsillar hypertrophy or exudate. Uvula midline. Airway patent. NECK: Trachea midline. No JVD or lymphadenopathy. Supple, nontender, no meningeal signs. CARDIOVASCULAR: Regular rate and rhythm without murmurs, gallops, or rubs. RESPIRATORY: Clear to auscultation. Breath sounds equal bilaterally. No wheezes , rales, or rhonchi. GASTROINTESTINAL: Abdomen soft, non-tender, nondistended. No hepato-splenomegaly , or palpable masses. No guarding. MUSCULOSKELETAL: Extremities without clubbing, cyanosis, or edema. No joint tenderness, effusion, or edema noted. No calf tenderness. Negative Homans sign bilaterally. NEUROLOGICAL: Awake and alert. Cranial nerves II through XII intact. Motor and sensory grossly within normal limits. Five out of 5 muscle strength in all muscle groups. Normal speech. Laboratory Laboratory Tests Test 08/20/17 04:21 White Blood Count 8.8 Red Blood Count 2.13 Hemoglobin 6.8 Hematocrit 18.0 Mean Corpuscular Volume 84.6 Mean Corpuscular Hemoglobin 31.9 Mean Corpuscular Hemoglobin Concent 37.7 Red Cell Distribution Width 24.4 Platelet Count 312 Mean Platelet Volume 8.6 Neutrophils (%) (Auto) 40.9 Lymphocytes (%) (Auto) 44.3 Monocytes (%) (Auto) 11.4 Eosinophils (%) (Auto) 2.4 Basophils (%) (Auto) 1.0 Neutrophils # (Auto) 3.6 Lymphocytes # (Auto) 3.9 Monocytes # (Auto) 1.0 Eosinophils # (Auto) 0.2 Basophils # (Auto) 0.1 CBC Comment AUTO DIFF Differential Total Cells Counted 100 Neutrophils % (Manual) 41 Lymphocytes % 52 Monocytes % 6 Eosinophils % 1 Neutrophils # (Manual) 3.6 Nucleated Red Blood Cells 11 Differential Comment FINAL DIFF MANUAL Platelet Estimate NORMAL Platelet Morphology Comment NORMAL Polychromasia 2.2 Sickle Cells 3+ [place] Bodies PRESENT Reticulocyte Count 10.1 Absolute Reticulocyte Count 215.5 Blood Urea Nitrogen 7 Creatinine 0.40 Random Glucose 82 Total Protein 7.3 Albumin 3.1 Calcium Level 7.6 Alkaline Phosphatase 77 Aspartate Amino Transf (AST/SGOT) 69 Alanine Aminotransferase (ALT/SGPT) 11 Total Bilirubin 2.9 Sodium Level 140 Potassium Level 3.7 Chloride Level 108 Carbon Dioxide Level 23.6 Anion Gap 8 Estimat Glomerular Filtration Rate 222 C-Reactive Protein 0.60 Result Diagram: 08/20/1742008/20/17420 Caprini VTE Risk Assessment Caprini VTE Risk Assessment: Mod/High Risk (score >= 2) Caprini Risk Assessment Model Point Value = 1 Point Value = 2 Point Value = 3 Point Value = 5 Age 41-60 Minor surgery BMI > 25 kg/m2 Swollen legs Varicose veins or History of unexplained or recurrent spontaneous Oral contraceptives or hormone replacement Sepsis (< 1 month) Serious lung disease, including pneumonia (< 1 month) Abnormal pulmonary function Acute myocardial infarction Congestive heart failure (< 1 month) History of inflammatory bowel disease Medical patient at bed rest Age 61-74 Arthroscopic surgery Major open surgery (> 45 min) Laparoscopic surgery (> 45 min) Malignancy Confined to bed (> 72 hours) Immobilizing plaster cast Central venous access Age >= 75 History of VTE Family history of VTE Factor V Leiden Prothrombin [id number] Lupus anticoagulant Anticardiolipin antibodies Elevated serum homocysteine Heparin-induced thrombocytopenia Other congenital or acquired thrombophilia Stroke (< 1 month) Elective arthroplasty Hip, pelvis, or leg fracture Acute spinal cord injury (< 1 month) Prophylaxis Regimen Total Risk Factor Score Risk Level Prophylaxis Regimen 0-1 Low Early ambulation 2 Moderate Order ONE of the following: *Sequential Compression Device (SCD) *Heparin 5000 units SQ BID 3-4 Higher Order ONE of the following medications: *Heparin 5000 units SQ TID *Enoxaparin/Lovenox 40 mg SQ daily (WT < 150 kg, CrCl > 30 mL/min) *Enoxaparin/Lovenox 30 mg SQ daily (WT < 150 kg, CrCl > 10-29 mL/min) *Enoxaparin/Lovenox 30 mg SQ BID (WT < 150 kg, CrCl > 30 mL/min) AND/OR *Sequential Compression Device (SCD) 5 or more Highest Order ONE of the following medications: *Heparin 5000 units SQ TID (Preferred with Epidurals) *Enoxaparin/Lovenox 40 mg SQ daily (WT < 150 kg, CrCl > 30 mL/min) *Enoxaparin/Lovenox 30 mg SQ daily (WT < 150 kg, CrCl > 10-29 mL/min) *Enoxaparin/Lovenox 30 mg SQ BID (WT < 150 kg, CrCl > 30 mL/min) AND *Sequential Compression Device (SCD) Assessment and Plan Assessment and Plan 31-year-old female, history of monthly sickle cell exacerbations with menstruation, presents with symptomatic anemia and sickle cell crisis. Sickle cell crisis Pain crisis associated with acute anemia, no indication of acute chest syndrome at this time Chest x-ray normal, afebrile Dilaudid IV every 4 hours per pain scale Benadryl 25 mg IV Hemoglobin 6.8 on admission Transfuse and monitor H/H , caution as risk of iron overload Follow up posttransfusion CBC Chronic sickle cell Continue daily folic acid Continue home potassium supplements Monitor Reticulocyte count, LDH Elevated AST (SGOT) chronic based on previous visits IVF Regular diet as tolerated DVT prophylaxis: SCDs Discussed Condition With pt, nurse Physician Certification 2 Midnight Certification Type: Admission for Inpatient Services Order for Inpatient Services The services are ordered in accordance with Medicare regulations or non- Medicare payer requirements, as applicable. In the case of services not specified as inpatient-only, they are appropriately provided as inpatient services in accordance with the 2-midnight benchmark. Estimated LOS (days): 3 days is the estimated time the patient will need to remain in the hospital, assuming treatment plan goals are met and no additional complications. Post-Hospital Plan: Home Gianna Nixon MD Aug 20, 2017 16:09
[2017-08-21] MEDS: diphenhydrAMINE HCL 50 MG/ML VIAL IV PRN ×6 (02:16→22:27)
[2017-08-21] MEDS: HYDROmorphone HCL PF 2 MG/ML VIAL IV PUSH PRN ×6 (02:16→22:28)
[2017-08-21 02:22] VITALS: BP 93/54; PULSE 65; RESP 18; TEMP 98.5; O2SAT 100
[2017-08-21 07:31] LABS: RETIC # 189.9 MIL/L (20.0-150.0); RETIC % 6.8 % (0.4-3.0)
[2017-08-21 07:50] LABS: ALT (GPT) 11 U/L (10-53); AST (GOT) 66 U/L (15-37); BICARBONATE 25.3 MEQ/L (21.0-32.0); BLOOD UREA NITROGEN 7 MG/DL (7-18); CALCIUM 8.2 MG/DL (8.5-10.1); CHLORIDE 110 MEQ/L (98-107); CREATININE 0.51 MG/DL (0.50-1.00); GLOMERULAR FILTRATION RATE 168 ML/MIN (>89); GLUCOSE,RANDOM 94 MG/DL (74-106); SODIUM (NA) 141 MEQ/L (136-145)
[2017-08-21 07:58] LABS: ALKALINE PHOSPHATASE 77 U/L (45-117); TOTAL BILIRUBIN ADULT 1.8 MG/DL (0.2-1.0); TOTAL PROTEIN 7.3 GM/DL (6.4-8.2)
[2017-08-21 08:00] VITALS: BP 101/62; PULSE 82; RESP 18; TEMP 98.4; O2SAT 97
[2017-08-21] MEDS ORDERED: FUROSEMIDE 20 MG/2 ML VIAL IV PUSH ONE (08:15)
[2017-08-21] MEDS ORDERED: SODIUM CHLOR 0.9% 250 ML INJ 250 ML IV ONE (08:15)
[2017-08-21] MEDS ORDERED: ACETAMINOPHEN 325 MG TAB PO PRN (08:15)
[2017-08-21] MEDS: HYDROXYUREA 500 MG CAP PO SCH (09:00)
[2017-08-21] MEDS: DOCUSATE SODIUM 50 MG/SENNA 8.6 MG TAB PO SCH ×2 (09:00→20:45)
[2017-08-21 09:23] LABS: AUTOMATED NEUTROPHIL # 3.4 TH/MM3 (1.8-7.7); BASOPHIL % 0.5 % (0.0-2.0); EOSINOPHIL # 0.4 TH/MM3 (0-0.4); EOSINOPHIL % 4.9 % (0.0-4.0); HEMATOCRIT 23.6 % (35.0-46.0); HEMOGLOBIN 8.5 GM/DL (11.6-15.3); LYMPH % 47.1 % (9.0-44.0); LYMPHOCYTE # 4.3 TH/MM3 (1.0-4.8); MEAN CELL VOLUME 83.6 FL (80.0-100.0); MEAN CORPUSCULAR HEMOGLOBIN 30.2 PG (27.0-34.0); MEAN PLATELET VOLUME 8.3 FL (7.0-11.0); MONO % 10.4 % (0.0-8.0); MONOCYTE # 0.9 TH/MM3 (0-0.9); NEUT % 37.1 % (16.0-70.0); PLATELET COUNT 379 TH/MM3 (150-450); RED BLOOD COUNT 2.83 MIL/MM3 (4.00-5.30); RED CELL DISTRIBUTION WIDTH 21.6 % (11.6-17.2); WHITE BLOOD COUNT 9.1 TH/MM3 (4.0-11.0)
[2017-08-21 09:25] LABS: MEAN CORPUSCULAR HGB CONC 36.2 % (32.0-36.0)
[2017-08-21] MEDS: SODIUM CHLORIDE 0.9% FLUSH 10 ML FLUSH IV FLUSH SCH ×2 (10:23→20:45)
[2017-08-21] MEDS: FOLIC ACID 1 MG TAB PO SCH (10:23)
[2017-08-21 11:05] LABS: BANDS 3 % (0-6); CORRECTED NUCLEATED RBC 15 /100 WBC (0-0); LYMPHOCYTES 43 % (9-44); MONOCYTES 13 % (0-8); NEUTROPHIL # MANUAL DIFF 3.7 TH/MM3 (1.8-7.7); NUCLEATED RED BLOOD CELL 15 (0-0); POLYCHROMASIA 2.2 % (0.0-1.9); POLYS (SEG NEUTROPHILS) 38 % (16-70); SICKLE CELLS 3+ (NORMAL)
[2017-08-21 12:00] VITALS: BP 93/58; PULSE 77; RESP 18; TEMP 98.6; O2SAT 96
[2017-08-21] MEDS: SODIUM CHLOR 0.9% 1000 ML INJ 1,000 ML IV SCH (14:20)
--- NOTE | 2017-08-21 14:52 | HHI.PR ---
Subjective Remarks In bed she complains of pain in her legs and back. Number much improvement since yesterday. Still with bleeding from her menstrual cycle. No nausea vomiting no diarrhea constipation. Able to eat. No fever or chills. No cough. No chest pain or shortness of breath she is saturating well on room air. Still feels very tired. Objective Vitals Vital Signs Date Time Temp Pulse Resp B/P (MAP) Pulse Ox O2 Delivery O2 Flow Rate FiO2 08/21/17 02:22 98.5 65 18 93/54 (67) 100 08/21/17 00:00 Room Air 08/20/17 20:28 Room Air 08/20/17 18:35 98.1 70 18 112/67 (82) 98 08/20/17 17:48 97.3 69 20 92/60 (71) 97 08/20/17 15:48 16 I/O 08/20/17 08/20/17 08/20/17 08/21/17 08/21/17 08/21/17 07:00 15:00 23:00 07:00 15:00 23:00 Intake Total 1000 ml 460 ml 1342 ml Balance 1000 ml 460 ml 1342 ml Intake Oral 600 ml IV Total 1000 ml 742 ml Packed Cells 400 ml Blood Product IV Normal Saline Flush 60 ml # Voids 4 # Bowel Movements 0 Result Diagram: 08/21/1762708/21/17627 Objective Remarks GENERAL: This is a well-nourished, well-developed patient, in no apparent distress. CARDIOVASCULAR: Regular rate and rhythm without murmurs, gallops, or rubs. RESPIRATORY: Clear to auscultation. Breath sounds equal bilaterally. No wheezes , rales, or rhonchi. GASTROINTESTINAL: Abdomen soft, non-tender, nondistended. No hepato-splenomegaly , or palpable masses. No guarding. MUSCULOSKELETAL: Extremities without clubbing, cyanosis, or edema. No joint tenderness, effusion, or edema noted. No calf tenderness. Negative Homans sign bilaterally. NEUROLOGICAL: Awake and alert. Cranial nerves II through XII intact. Motor and sensory grossly within normal limits. Five out of 5 muscle strength in all muscle groups. Normal speech. A/P Assessment and Plan 31-year-old female, history of monthly sickle cell exacerbations with menstruation, presents with symptomatic anemia and sickle cell crisis. Sickle cell crisis Pain crisis associated with acute anemia, no indication of acute chest syndrome at this time Chest x-ray normal, afebrile Dilaudid IV every 4 hours per pain scale Benadryl 25 mg IV Hemoglobin 6.8 on admission received 1U PRBC Repeat HGB at 8.5 Transfuse as need and monitor H/H , caution as risk of iron overload Follow up CBC, retic, LDH Chronic sickle cell Continue daily folic acid Continue home potassium supplements Monitor Reticulocyte count, LDH Elevated AST (SGOT) Chronic based on previous visits IVF Regular diet as tolerated DVT prophylaxis: SCDs Discussed Condition With pt, nurse Gianna Nixon MD Aug 21, 2017 14:52
[2017-08-21 20:00] VITALS: BP 104/63; PULSE 76; RESP 17; TEMP 99; O2SAT 99
[2017-08-22] VITALS: BP 99/55; PULSE 71; RESP 17; TEMP 98.4; O2SAT 100
[2017-08-22] MEDS: SODIUM CHLOR 0.9% 1000 ML INJ 1,000 ML IV SCH ×2 (02:15→13:55)
[2017-08-22] MEDS: diphenhydrAMINE HCL 50 MG/ML VIAL IV PRN ×5 (02:23→23:30)
[2017-08-22] MEDS: HYDROmorphone HCL PF 2 MG/ML VIAL IV PUSH PRN ×3 (02:24→10:21)
[2017-08-22] MEDS: DOCUSATE SODIUM 50 MG/SENNA 8.6 MG TAB PO SCH ×2 (09:00→21:00)
[2017-08-22] MEDS: SODIUM CHLORIDE 0.9% FLUSH 10 ML FLUSH IV FLUSH SCH ×2 (09:00→21:00)
[2017-08-22] MEDS: FOLIC ACID 1 MG TAB PO SCH (09:00)
[2017-08-22] MEDS: HYDROXYUREA 500 MG CAP PO SCH (09:00)
--- NOTE | 2017-08-22 10:26 | HHI.PR ---
Subjective Remarks Patient in bed says she still has a lot of pain in her legs and back. Taking meds IV around the clock. Will wean off pain meds. With bleeding from menstrual cycle. Some pelvic pain/cramps controlled . No fever or chills. No n/v/d/c. Objective Vitals Vital Signs Date Time Temp Pulse Resp B/P (MAP) Pulse Ox O2 Delivery O2 Flow Rate FiO2 08/22/17 02:54 16 08/22/17 00:00 98.4 71 17 99/55 (70) 100 08/21/17 20:00 99.0 76 17 104/63 (77) 99 08/21/17 19:30 Room Air 08/21/17 16:00 Room Air 08/21/17 12:00 Room Air 08/21/17 12:00 98.6 77 18 93/58 (70) 96 I/O 08/21/17 08/21/17 08/21/17 08/22/17 08/22/17 08/22/17 07:00 15:00 23:00 07:00 15:00 23:00 Intake Total 1342 ml 480 ml 240 ml Balance 1342 ml 480 ml 240 ml Intake Oral 600 ml 480 ml 240 ml IV Total 742 ml # Voids 4 3 1 # Bowel Movements 0 0 Result Diagram: 08/21/1762708/21/17627 Objective Remarks GENERAL: This is a well-nourished, well-developed patient, in no apparent distress. CARDIOVASCULAR: Regular rate and rhythm without murmurs, gallops, or rubs. RESPIRATORY: Clear to auscultation. Breath sounds equal bilaterally. No wheezes , rales, or rhonchi. GASTROINTESTINAL: Abdomen soft, non-tender, nondistended. No hepato-splenomegaly , or palpable masses. No guarding. MUSCULOSKELETAL: Extremities without clubbing, cyanosis, or edema. No joint tenderness, effusion, or edema noted. No calf tenderness. Negative Homans sign bilaterally. NEUROLOGICAL: Awake and alert. Cranial nerves II through XII intact. Motor and sensory grossly within normal limits. Five out of 5 muscle strength in all muscle groups. Normal speech. A/P Assessment and Plan 31-year-old female, history of monthly sickle cell exacerbations with menstruation, presents with symptomatic anemia and sickle cell crisis. Sickle cell crisis Pain crisis associated with acute anemia, no indication of acute chest syndrome at this time Chest x-ray normal, afebrile Dilaudid IV per pain scale , Benadryl 25 mg IV, wean off Hemoglobin 6.8 on admission received 1U PRBC Repeat HGB at 8.5 Transfuse as need and monitor H/H , caution as risk of iron overload Follow up CBC, retic, LDH Chronic sickle cell Continue daily folic acid Continue home potassium supplements Monitor Reticulocyte count, LDH Elevated AST (SGOT) Chronic based on previous visits IVF Regular diet as tolerated DVT prophylaxis: SCDs Discussed Condition With pt, nurse Dc plan . DC in 1-2 days if improves. Wean off pain meds Gianna Nixon MD Aug 22, 2017 10:26
[2017-08-22 10:30] VITALS: BP 108/54; PULSE 85; RESP 18; TEMP 98.5; O2SAT 95
[2017-08-22] MEDS ORDERED: PERC5TAB12 PO (14:06)
--- NOTE | 2017-08-22 14:06 | HHI.DS ---
Discharge Summary Admission Date Aug 20, 2017 at 05:27 Discharge Date: Aug 23, 2017 Admitting Diagnosis Sickle Cell Pain Crisis (1) Spasmodic dysmenorrhea ICD Code: N94.4 - Primary dysmenorrhea (2) Severe anemia ICD Code: D64.9 - Severe anemia Status: Acute (3) Elevated AST (SGOT) ICD Code: R74.0 - Nonspecific elevation of levels of transaminase and lactic acid dehydrogenase [LDH] Status: Chronic (4) Sickle cell pain crisis ICD Code: D57.00 - Hb-SS disease with crisis, unspecified Status: Acute (5) Anemia ICD Code: D64.9 - Anemia, unspecified Status: Acute (6) Hypokalemia ICD Code: E87.6 - Hypokalemia Status: Acute Procedures No procedures Brief History - From Admission 31 y/o F with history of multiple sickle cell pain crisis during menstruation, started experiencing back pain and legs since yesterday. LM began yesterday. Pain is getting progressively worse. The pain is worst in the knees, lower back. She reports that the symptoms are similar to her prior pain crises. She tried her Lortab 10 for the pain at home but it did not do anything. Her nausea has been alleviated by Zofran in the ED. This commonly happens during menstruation. She has severe periods and experiences pain during every cycle. She regularly comes to the ED and gets fluids, gets the pain and nausea under control, but she frequently will AMA because she hates being in the hospital. Denies any chest pain , SOB/fevers. Her heme , says she has a f/u appointment after he comes back from vacation. She has spoken with her Heme to see if there is anything else she can do about the monthly exacerbations during menstruation. She has tried Depo, which did not help. She reports that she has been referred to a oil distributor tender through Dr. Wahl's office and is planning to have a procedure to help with her dysmenorrhea. CBC/BMP: 08/21/17 0628 08/21/17 0628 Significant Findings Laboratory Tests Test 08/20/17 04:21 08/21/17 06:28 Red Blood Count 2.13 MIL/MM3 (4.00-5.30) 2.83 MIL/MM3 (4.00-5.30) Hemoglobin 6.8 GM/DL (11.6-15.3) 8.5 GM/DL (11.6-15.3) Hematocrit 18.0 % (35.0-46.0) 23.6 % (35.0-46.0) Mean Corpuscular Hemoglobin Concent 37.7 % (32.0-36.0) 36.2 % (32.0-36.0) Red Cell Distribution Width 24.4 % (11.6-17.2) 21.6 % (11.6-17.2) Lymphocytes (%) (Auto) 44.3 % (9.0-44.0) 47.1 % (9.0-44.0) Monocytes (%) (Auto) 11.4 % (0.0-8.0) 10.4 % (0.0-8.0) Monocytes # (Auto) 1.0 TH/MM3 (0-0.9) Lymphocytes % 52 % (9-44) Nucleated Red Blood Cells 11 /100 WBC (0-0) 15 /100 WBC (0-0) Polychromasia 2.2 % (0.0-1.9) 2.2 % (0.0-1.9) Sickle Cells 3+ (NORMAL) 3+ (NORMAL) Reticulocyte Count 10.1 % (0.4-3.0) 6.8 % (0.4-3.0) Absolute Reticulocyte Count 215.5 MIL/L (20.0-150.0) 189.9 MIL/L (20.0-150.0) Creatinine 0.40 MG/DL (0.50-1.00) Albumin 3.1 GM/DL (3.4-5.0) 3.0 GM/DL (3.4-5.0) Calcium Level 7.6 MG/DL (8.5-10.1) 8.2 MG/DL (8.5-10.1) Aspartate Amino Transf (AST/SGOT) 69 U/L (15-37) 66 U/L (15-37) Total Bilirubin 2.9 MG/DL (0.2-1.0) 1.8 MG/DL (0.2-1.0) Chloride Level 108 MEQ/L (98-107) 110 MEQ/L (98-107) C-Reactive Protein 0.60 MG/DL (0.00-0.30) Eosinophils (%) (Auto) 4.9 % (0.0-4.0) Monocytes % 13 % (0-8) Lactate Dehydrogenase 1044 U/L (84-246) PE at Discharge GENERAL: This is a well-nourished, well-developed patient, in no apparent distress. CARDIOVASCULAR: Regular rate and rhythm without murmurs, gallops, or rubs. RESPIRATORY: Clear to auscultation. Breath sounds equal bilaterally. No wheezes , rales, or rhonchi. GASTROINTESTINAL: Abdomen soft, non-tender, nondistended. No hepato-splenomegaly , or palpable masses. No guarding. MUSCULOSKELETAL: Extremities without clubbing, cyanosis, or edema. No joint tenderness, effusion, or edema noted. No calf tenderness. Negative Homans sign bilaterally. NEUROLOGICAL: Awake and alert. Cranial nerves II through XII intact. Motor and sensory grossly within normal limits. Five out of 5 muscle strength in all muscle groups. Normal speech. Hospital Course 31-year-old female, history of monthly sickle cell exacerbations with menstruation, presents with symptomatic anemia and sickle cell crisis. Sickle cell crisis Pain crisis associated with acute anemia, no indication of acute chest syndrome at this time Chest x-ray normal, afebrile PO lortab as need per pain scale. Dilaudid IV breakthrough pain, Benadryl 25 mg IV, wean off Hemoglobin 6.8 on admission received 1U PRBC Repeat HGB at 8.5 Transfuse as need and monitor H/H , caution as risk of iron overload Follow up CBC, retic, LDH improving Chronic sickle cell Continue daily folic acid Continue home potassium supplements Monitor Reticulocyte count, LDH Elevated AST (SGOT) Chronic based on previous visits IVF Regular diet as tolerated DVT prophylaxis: SCDs Patient improved. Labs improved significantly also. Tolerates food. Pain is controlled fairly well by medications. Discharge home in stable condition to follow-up with PCP and consultants as outpatient. Also referral given to Dr. Wahl SENIOR SOFTWARE TEST ENGINEER E. Pt Condition on Discharge: Stable Discharge Disposition: Discharge Home Discharge Time: > 30 minutes Discharge Instructions DIET: Follow Instructions for: Heart Healthy Diet Activities you can perform: Regular-No Restrictions Follow up Referrals: SENIOR SOFTWARE TEST ENGINEER - 1 Week with Joan Wahl MD Oncology - 1 Week PCP Follow-up - 2-3 Days New Medications: Hydrocodone/Acetaminophen (Hydrocodone-Acetamin 10-325 mg) 10 Mg-325 Mg Tablet 1 TAB PO Q4H PRN for pain management, #20 TAB Sennosides-Docusate Sodium (Gnp Senna Plus 8.6-50 mg) 8.6 Mg-50 Mg Tab 1 TAB PO BID for Constipation, #60 TAB Continued Medications: Folic Acid (Folic Acid) 0.4 Mg Tab 400 MCG PO DAILY for Nutritional Supplement, TAB 0 Refills Hydroxyurea (Hydrea) 500 Mg Cap 500 MG PO DAILY, CAP 0 Refills Gianna Nixon MD Aug 22, 2017 14:06
[2017-08-22] MEDS ORDERED: PERI PO (14:09)
[2017-08-22] MEDS ORDERED: HYDROmorphone HCL 2 MG TAB PO PRN (14:15)
[2017-08-22] MEDS ORDERED: SENNOSIDES 8.6 MG TAB PO PRN (14:45)
[2017-08-22] MEDS ORDERED: LACTULOSE SYRUP 20 GM/30 ML CUP PO PRN (14:45)
[2017-08-22] MEDS ORDERED: BISACODYL 10 MG SUPP RECTAL PRN (14:45)
[2017-08-22] MEDS ORDERED: oxyCODONE/ACETAMINOPHEN 10 MG/325 MG TAB PO PRN (14:45)
[2017-08-22] MEDS ORDERED: oxyCODONE/ACETAMINOPHEN 5 MG/325 MG TAB PO PRN (14:45)
[2017-08-22] MEDS ORDERED: NALOXONE HCL 0.4 MG/ML AMP IV PUSH PRN (14:45)
[2017-08-22] MEDS ORDERED: MAGNESIUM HYDROXIDE SUSP 30 ML CUP PO PRN (14:45)
[2017-08-22] MEDS ORDERED: ACETAMINOPHEN/HYDROcodone 325 MG/5 MG TAB PO PRN (15:30)
[2017-08-22] MEDS ORDERED: HYDROmorphone HCL PF 2 MG/ML VIAL IV PUSH ONE ×2 (15:45→23:15)
[2017-08-22] MEDS: ACETAMINOPHEN/HYDROcodone 325 MG/10 MG TAB PO PRN ×2 (18:15→22:54)
[2017-08-22] MEDS: HYDROmorphone HCL PF 0.5 MG/0.5 ML SYRINGE IV PUSH PRN (19:07)
[2017-08-22 23:05] VITALS: BP 110/75; PULSE 78; RESP 16; TEMP 97.8; O2SAT 100
[2017-08-23] MEDS: SODIUM CHLOR 0.9% 1000 ML INJ 1,000 ML IV SCH ×2 (02:20→12:02)
[2017-08-23] MEDS: ACETAMINOPHEN/HYDROcodone 325 MG/10 MG TAB PO PRN ×2 (03:02→09:39)
[2017-08-23] MEDS: HYDROmorphone HCL PF 0.5 MG/0.5 ML SYRINGE IV PUSH PRN ×5 (03:13→17:13)
[2017-08-23] MEDS: diphenhydrAMINE HCL 50 MG/ML VIAL IV PRN ×5 (03:13→17:13)
[2017-08-23 04:00] VITALS: BP 117/65; PULSE 76; RESP 18; TEMP 98.5; O2SAT 100
[2017-08-23 07:56] LABS: AUTOMATED NEUTROPHIL # 3.2 TH/MM3 (1.8-7.7); BASOPHIL # 0.1 TH/MM3 (0-0.2); BASOPHIL % 1.2 % (0.0-2.0); EOSINOPHIL # 0.8 TH/MM3 (0-0.4); EOSINOPHIL % 8.5 % (0.0-4.0); HEMOGLOBIN 9.1 GM/DL (11.6-15.3); LYMPH % 44.1 % (9.0-44.0); LYMPHOCYTE # 3.9 TH/MM3 (1.0-4.8); MEAN CELL VOLUME 83.4 FL (80.0-100.0); MEAN CORPUSCULAR HEMOGLOBIN 31.4 PG (27.0-34.0); MEAN PLATELET VOLUME 7.6 FL (7.0-11.0); MONO % 10.3 % (0.0-8.0); MONOCYTE # 0.9 TH/MM3 (0-0.9); NEUT % 35.9 % (16.0-70.0); PLATELET COUNT 403 TH/MM3 (150-450); RED BLOOD COUNT 2.88 MIL/MM3 (4.00-5.30); RED CELL DISTRIBUTION WIDTH 22.5 % (11.6-17.2); RETIC # 102.9 MIL/L (20.0-150.0); RETIC % 3.6 % (0.4-3.0); WHITE BLOOD COUNT 8.8 TH/MM3 (4.0-11.0)
[2017-08-23 07:59] LABS: MEAN CORPUSCULAR HGB CONC 37.7 % (32.0-36.0)
[2017-08-23 08:01] VITALS: BP 93/56; PULSE 77; RESP 18; TEMP 98.8; O2SAT 96
[2017-08-23 08:43] LABS: ALBUMIN 3.1 GM/DL (3.4-5.0); ALKALINE PHOSPHATASE 77 U/L (45-117); ALT (GPT) 13 U/L (10-53); AST (GOT) 73 U/L (15-37); BICARBONATE 22.6 MEQ/L (21.0-32.0); BLOOD UREA NITROGEN 8 MG/DL (7-18); CALCIUM 8.4 MG/DL (8.5-10.1); CHLORIDE 110 MEQ/L (98-107); CREATININE 0.59 MG/DL (0.50-1.00); GLOMERULAR FILTRATION RATE 142 ML/MIN (>89); GLUCOSE,RANDOM 91 MG/DL (74-106); SODIUM (NA) 140 MEQ/L (136-145); TOTAL PROTEIN 7.6 GM/DL (6.4-8.2)
[2017-08-23] MEDS: DOCUSATE SODIUM 50 MG/SENNA 8.6 MG TAB PO SCH (09:00)
[2017-08-23] MEDS: SODIUM CHLORIDE 0.9% FLUSH 10 ML FLUSH IV FLUSH SCH (09:00)
[2017-08-23] MEDS ORDERED: HYDR-3516 PO (09:09)
[2017-08-23 09:24] LABS: BANDS 1 % (0-6); CORRECTED NUCLEATED RBC 6 /100 WBC (0-0); LYMPHOCYTES 47 % (9-44); MONOCYTES 4 % (0-8); NEUTROPHIL # MANUAL DIFF 3.9 TH/MM3 (1.8-7.7); NUCLEATED RED BLOOD CELL 6 (0-0); POLYS (SEG NEUTROPHILS) 43 % (16-70)
[2017-08-23 09:25] LABS: HOWELL-JOLLY BODIES PRESENT (NONE SEEN); SICKLE CELLS 3+ (NORMAL); TARGET CELLS 1+ (NORMAL)
[2017-08-23] MEDS: FOLIC ACID 1 MG TAB PO SCH (09:39)
[2017-08-23] MEDS ORDERED: HYDR-3583 PO (09:42)
[2017-08-23] MEDS: HYDROXYUREA 500 MG CAP PO SCH (09:44)
[2017-08-23 12:01] VITALS: BP 96/60; PULSE 78; RESP 18; TEMP 98.7; O2SAT 97
--- NOTE | 2017-08-23 16:56 | HHI.PR ---
Subjective Remarks In bed says she still has apain and wants to go home later this afternoon. Doesn;t appear in acute distress. No much menstrual bleeding No fever ro chills No n/v/d/c. Labs better discussed with the patient. Objective Vitals Vital Signs Date Time Temp Pulse Resp B/P (MAP) Pulse Ox O2 Delivery O2 Flow Rate FiO2 08/23/17 12:01 98.7 78 18 96/60 (72) 97 08/23/17 08:01 98.8 77 18 93/56 (68) 96 08/23/17 08:00 Room Air 08/23/17 04:00 98.5 76 18 117/65 (82) 100 08/22/17 23:05 97.8 78 16 110/75 (87) 100 08/22/17 20:00 100 Room Air I/O 08/22/17 08/22/17 08/22/17 08/23/17 08/23/17 08/23/17 06:59 14:59 22:59 06:59 14:59 22:59 Intake Total 240 ml 360 ml Balance 240 ml 360 ml Intake Oral 240 ml 360 ml # Voids 1 2 Result Diagram: 08/23/17 0600 08/23/17 0600 Objective Remarks GENERAL: This is a well-nourished, well-developed patient, in no apparent distress. CARDIOVASCULAR: Regular rate and rhythm without murmurs, gallops, or rubs. RESPIRATORY: Clear to auscultation. Breath sounds equal bilaterally. No wheezes , rales, or rhonchi. GASTROINTESTINAL: Abdomen soft, non-tender, nondistended. No hepato-splenomegaly , or palpable masses. No guarding. MUSCULOSKELETAL: Extremities without clubbing, cyanosis, or edema. No joint tenderness, effusion, or edema noted. No calf tenderness. Negative Homans sign bilaterally. NEUROLOGICAL: Awake and alert. Cranial nerves II through XII intact. Motor and sensory grossly within normal limits. Five out of 5 muscle strength in all muscle groups. Normal speech. A/P Assessment and Plan 31-year-old female, history of monthly sickle cell exacerbations with menstruation, presents with symptomatic anemia and sickle cell crisis. Sickle cell crisis Pain crisis associated with acute anemia, no indication of acute chest syndrome at this time Chest x-ray normal, afebrile PO lortab as need per pain scale. Amberaudid IV breakthrough pain, Benadryl 25 mg IV, wean off Hemoglobin 6.8 on admission received 1U PRBC Repeat HGB at 8.5 Transfuse as need and monitor H/H , caution as risk of iron overload Follow up CBC, retic, LDH improving Chronic sickle cell Continue daily folic acid Continue home potassium supplements Monitor Reticulocyte count, LDH Elevated AST (SGOT) Chronic based on previous visits IVF Regular diet as tolerated DVT prophylaxis: SCDs Discussed Condition With pt, nurse Dc plan . DC later today Gianna Nixon MD Aug 23, 2017 16:56
== END 2017-08-23 17:46 | disposition home or self-care (01) | DRG 812 ==
LOC: NEPE 02:54 → NEDA 05:27 → NEDH 13:23 → N04B 18:25
PROVIDERS: ADMIT Hospitalist; ATTEND Hospitalist
PROC: 30243N1 Transfusion of Nonautologous Red Blood Cells into Central Vein, Percutaneous Approach (ICD-10-PCS; principal; 2017-08-20)
DX: D57.00 Hb-SS disease with crisis, unspecified (principal); N94.4 Primary dysmenorrhea
CPT/HCPCS: 36430; 80053; 83615; 85007; 85027; 85044; 86140; 86850; 86900; 86901; 86920; 96361; 96374; 96375; J1170; J1200; J2405; J7030; J7050; P9016

== ENCOUNTER 2017-09-09 02:46 | Emergency (ER) | payer OTHER ==
[~2017-09-09] VITALS: Ht 152.4 cm; Wt 60.0 kg
[~2017-09-09 02:46] MED LIST changes: +HYDR500C PO; +PERI PO; -POTA1TAB4 PO
[2017-09-09 02:48] VITALS: BP 106/66; PULSE 89; RESP 16; TEMP 98.2; O2SAT 95
[2017-09-09] MEDS ORDERED: SODIUM CHLOR 0.9% 1000 ML INJ 1,000 ML IV ONE (03:02)
--- NOTE | 2017-09-09 03:05 | PD ---
HPI Chief Complaint: Sickle Cell Time Seen by Provider: 03:01 Travel History International Travel<30 days: No Contact w/Intl Traveler<30days: No Traveled to known affect area: No History of Present Illness HPI The patient is a 31 year old female who presents to the [facility] emergency department with a history of low back pain and bilateral knee pain that began after her menstrual cycle started yesterday. The patient has a history of sickle cell anemia with frequent pain crises that are associated with her menstrual cycle. The patient is in the process of being approved for a procedure for her menorrhagia. The patient's autoclave operator is Dr. Rivas. The patient denies having any recent fevers. She denies having any nausea, vomiting, or diarrhea. The patient denies having any chest pain, chest pressure , or shortness of breath. Otherwise on review of systems, the patient denies having any recent cough or congestion, neck stiffness, urinary symptoms, or neurologic symptoms. LMP: Began yesterday PFSH Past Medical History Narrative Medical The patient's past medical history is significant for sickle cell anemia, dysmenorrhea and menorrhagia, history of pneumonia, history of headaches Hx Anticoagulant Therapy: No Anemia: Yes Arthritis: No Asthma: No Autoimmune Disease: No Blood Disorders: Yes (sickle cell disease) Anxiety: No Depression: No Heart Rhythm Problems: No Cancer: No Cardiovascular Problems: No High Cholesterol: No Chemotherapy: No Chest Pain: No Congestive Heart Failure: No COPD: No Cerebrovascular Accident: No Diabetes: No Diminished Hearing: No Endocrine: No Gastrointestinal Disorders: Yes (GALLSTONES) GERD: No Genitourinary: No Headaches: Yes Hiatal Hernia: No Heparin Induced Thrombocytopen: No Immune Disorder: No Implanted Vascular Access Dvce: Yes (RIGHT CHEST ) Insomnia: Yes Kidney Stones: Yes Musculoskeletal: No Neurologic: No Psychiatric: No Reproductive: No Respiratory: No Immunizations Current: Yes Migraines: No Pneumonia: Yes Radiation Therapy: No Renal Failure: No Seizures: No Sickle Cell Disease: Yes Sleep Apnea: No Thyroid Disease: No Ulcer: No PNEUMOCCOCAL Vaccine (Year): 2 ?: Not : 2 Para: 1 Miscarriage: 1 : 0 Tubal Ligation: Yes Past Surgical History Narrative Surgical The patient's past surgical history is significant for [id number] placement and removal, bilateral tubal ligation, 1, cholecystectomy. Abdominal Surgery: Yes AICD: No Arteriovenous Shunt: No Body Medical Devices: right chest port Cardiac Surgery: No Section: Yes (X 1) Cholecystectomy: Yes Ear Surgery: No Endocrine Surgery: No Eye Surgery: No Genitourinary Surgery: No Gynecologic Surgery: Yes (tubal ligation) Hysterectomy: No Insulin Pump: No Joint Replacement: No Oral Surgery: Yes Pacemaker: No Thoracic Surgery: Yes (CHEST PORT ) Tonsillectomy: Yes Other Surgery: Yes (right chest port) Social History Alcohol Use: No Tobacco Use: No Substance Use: No Allergies-Medications (Allergen,Severity, Reaction): Coded Allergies: morphine (Verified Allergy, Severe, RASH, 09/09/17) *MDRO Multi-Drug Resistant Organism (Verified Adverse Reaction, Unknown, MRSA, 09/09/17) MRSA (blood) - 12/18/2004 MRSA PCR screen NEGATIVE 08/27/16 & 09/21/16 Cleared per Infection Control Reported Meds & Prescriptions Reported Meds & Active Scripts Active Hydrocodone-Acetamin 10-325 mg (Hydrocodone/Acetaminophen) 10 Mg-325 Mg Tablet 1 Tab PO Q4H PRN Gnp Senna Plus 8.6-50 mg (Sennosides-Docusate Sodium) 8.6 Mg-50 Mg Tab 1 Tab PO BID Reported Hydrea (Hydroxyurea) 500 Mg Cap 500 Mg PO DAILY Folic Acid 0.4 Mg Tab 400 Mcg PO DAILY Review of Systems Except as stated in HPI: all other systems reviewed are Neg General / Constitutional: No: Fever Eyes: No: Visual changes HENT: No: Headaches Cardiovascular: No: Chest Pain or Discomfort Respiratory: No: Shortness of Breath Gastrointestinal: No: Abdominal Pain Genitourinary: No: Dysuria Musculoskeletal: Positive: Myalgias, Pain, No: Limited ROM, Edema Skin: No Rash Neurologic: No: Weakness, Focal Abnormalities, Change in Mentation, Slurred Speech, Sensory Disturbance Psychiatric: No: Depression Endocrine: No: Polydipsia Hematologic/Lymphatic: No: Easy Bruising Physical Exam Narrative General: The patient is a well-developed well-nourished female in no acute distress Head and Neck exam: Head is normocephalic atraumatic. Eyes: EOMI, pupils are equal round and reactive to light. Nose: Midline septum with pink mucous membranes Mouth: Dentition unremarkable. Moist mucus membranes. Posterior oropharynx is not erythematous. No tonsillar hypertrophy. Uvula midline. Airway patent. Neck: No palpable lymphadenopathy. No nuchal rigidity. No thyromegaly. Cardiovascular: Regular rate and rhythm without murmurs, gallops, or rubs. No pulse deficit to the extremities on simultaneous auscultation and palpation of her radial artery. Lungs: Clear to auscultation bilaterally. No wheezes, rhonchi, or rales. Abdomen: Soft, without tenderness to palpation in all 4 quadrants of the abdomen. No guarding, rebound, or rigidity. Normal bowel sounds are audible. No tenderness on palpation of McBurney's point. Negative Bolanos sign. Extremities: No clubbing, cyanosis, or edema. 2+ pulses in all 4 extremities. No calf tenderness on palpation. No joint swelling or erythema. No loss of range of motion of her joints. Back: No spinous process tenderness to palpation. No costovertebral angle tenderness to palpation. Neurologic Exam: Grossly nonfocal. Skin Exam: No rash noted. Intact skin that is warm and dry. Data Data Last Documented VS Vital Signs Date Time Temp Pulse Resp B/P (MAP) Pulse Ox O2 Delivery O2 Flow Rate FiO2 09/09/17 04:55 77 18 105/59 (74) 95 Room Air 09/09/17 02:48 98.2 Orders Orders Complete Blood Count With Diff (09/09/17 03:02) Comprehensive Metabolic Panel (09/09/17 03:02) Retic Count (09/09/17 03:02) Ecg Monitoring (09/09/17 03:02) Iv Access Insert/Monitor (09/09/17 03:02) Oximetry (09/09/17 03:02) Oxygen Administration (09/09/17 03:02) Ondansetron Inj (Zofran Inj) (09/09/17 03:15) Sodium Chloride 0.9% Flush (Ns Flush) (09/09/17 03:15) Sodium Chlor 0.9% 1000 Ml Inj (Ns 1000 M (09/09/17 03:02) Diphenhydramine Inj (Benadryl Inj) (09/09/17 03:15) Hydromorphone Pf Inj (Dilaudid Pf Inj) (09/09/17 03:15) Sodium Chlorid 0.9% 500 Ml Inj (Ns 500 M (09/09/17 04:45) Hydromorphone Pf Inj (Dilaudid Pf Inj) (09/09/17 04:45) Ondansetron Inj (Zofran Inj) (09/09/17 04:45) Diphenhydramine Inj (Benadryl Inj) (09/09/17 05:15) Heparin Central Flush (Heparin Central F (09/09/17 05:45) Labs Laboratory Tests Test 09/09/17 03:27 White Blood Count 11.8 TH/MM3 Red Blood Count 2.26 MIL/MM3 Hemoglobin 7.0 GM/DL Hematocrit 19.4 % Mean Corpuscular Volume 85.7 FL Mean Corpuscular Hemoglobin 31.1 PG Mean Corpuscular Hemoglobin Concent 36.2 % Red Cell Distribution Width 20.4 % Platelet Count 339 TH/MM3 Mean Platelet Volume 8.4 FL Neutrophils (%) (Auto) 42.1 % Lymphocytes (%) (Auto) 43.0 % Monocytes (%) (Auto) 12.1 % Eosinophils (%) (Auto) 2.1 % Basophils (%) (Auto) 0.7 % Neutrophils # (Auto) 5.0 TH/MM3 Lymphocytes # (Auto) 5.1 TH/MM3 Monocytes # (Auto) 1.4 TH/MM3 Eosinophils # (Auto) 0.2 TH/MM3 Basophils # (Auto) 0.1 TH/MM3 CBC Comment AUTO DIFF Differential Total Cells Counted 100 Neutrophils % (Manual) 45 % Lymphocytes % 42 % Monocytes % 10 % Eosinophils % 2 % Basophils % 1 % Neutrophils # (Manual) 5.3 TH/MM3 Nucleated Red Blood Cells 6 /100 WBC Differential Comment FINAL DIFF MANUAL Platelet Estimate NORMAL Platelet Morphology Comment NORMAL Polychromasia 6.2 % Sickle Cells 1+ Fields-Davie Bodies PRESENT Acanthocytes OCC Reticulocyte Count 10.9 % Absolute Reticulocyte Count 245.4 MIL/L Blood Urea Nitrogen 8 MG/DL Creatinine 0.74 MG/DL Random Glucose 88 MG/DL Total Protein 8.3 GM/DL Albumin 3.5 GM/DL Calcium Level 8.5 MG/DL Alkaline Phosphatase 104 U/L Aspartate Amino Transf (AST/SGOT) 72 U/L Alanine Aminotransferase (ALT/SGPT) 18 U/L Total Bilirubin 2.7 MG/DL Sodium Level 136 MEQ/L Potassium Level 3.4 MEQ/L Chloride Level 103 MEQ/L Carbon Dioxide Level 25.9 MEQ/L Anion Gap 7 MEQ/L Estimat Glomerular Filtration Rate 109 ML/MIN MDM Medical Decision Making Medical Screen Exam Complete: Yes Emergency Medical Condition: Yes Medical Record Reviewed: Yes Differential Diagnosis Sickle cell pain crisis, versus arthralgias, versus musculoskeletal strain, versus symptomatic anemia Narrative Course During the course of the patient's emergency department visit, the patient's history, examination, and differential diagnosis were reviewed with the patient. The patient was placed on a cardiac rn with oximetry and frequent blood pressure monitoring. The patient had her [id number]-[employer]-[id number] access. The patient was initially provided normal saline 1 L IV fluid bolus, hydromorphone 1 mg IV for pain, Zofran 4 mg IV for nausea, Benadryl 25 mg IV for itching related to the Dilaudid. The patient's laboratory studies were reviewed and remarkable for a white count of 11.8, hemoglobin 7.0, platelets 339 with 10 monocytes. Reticulocyte count is 10.9. CMP is remarkable for potassium of 3.4, total bilirubin 2.7, AST 72, total protein 8.3. The patient on repeat examination reports that the pain was improved, however it began to increase again. The patient was given a second dose of pain medication. The patient is encouraged to follow-up with her autoclave operator today regarding this emergency department visit. She is instructed to follow-up for reexamination in the next couple of days. The patient is encouraged to continue on her current pain management regimen and continue to push fluids and get plenty of rest. The patient is resting comfortably and feels better, is alert and in no distress. The patient's results and examination findings were discussed with the patient. The repeat examination is unremarkable and benign. The history, exam, diagnostic testing, and current condition do not suggest any significant pathology to warrant further testing, continued ED treatment, admission, or surgical evaluation at this point. The vital signs have been stable. The patient does not have uncontrollable pain, intractable vomiting, or other significant symptoms. The patient's condition is stable and appropriate for discharge. The patient will pursue further outpatient evaluation with a primary care physician or other designated or consulting physician as indicated in the discharge instructions. The patient expressed understanding and was agreeable with this plan. Diagnosis Primary Impression: Sickle cell pain crisis Additional Impression: Dysmenorrhea Referrals: Primary Care Physician Patient Instructions: General Instructions Med/Other Pt SpecificInfo: No Change to Meds Disposition: 01 DISCHARGE HOME Condition: Stable Mignon Lin MD September 09, 2017 03:05
[2017-09-09] MEDS ORDERED: SODIUM CHLORIDE 0.9% FLUSH 10 ML FLUSH IVF PRN (03:15)
[2017-09-09] MEDS ORDERED: ONDANSETRON HCL 4 MG/2 ML VIAL IVP ONE (03:15)
[2017-09-09] MEDS ORDERED: HYDROmorphone HCL PF 2 MG/ML VIAL IV PUSH ONE ×2 (03:15→04:45)
[2017-09-09] MEDS ORDERED: diphenhydrAMINE HCL 50 MG/ML VIAL IV PUSH ONE ×2 (03:15→05:15)
[2017-09-09 03:38] VITALS: BP 123/71; PULSE 89; RESP 18; O2SAT 97
[2017-09-09 03:43] VITALS: RESP 18; O2SAT 96
[2017-09-09 03:50] LABS: BASOPHIL # 0.1 TH/MM3 (0-0.2); BASOPHIL % 0.7 % (0.0-2.0); EOSINOPHIL # 0.2 TH/MM3 (0-0.4); EOSINOPHIL % 2.1 % (0.0-4.0); LYMPHOCYTE # 5.1 TH/MM3 (1.0-4.8); MEAN CELL VOLUME 85.7 FL (80.0-100.0); MEAN CORPUSCULAR HEMOGLOBIN 31.1 PG (27.0-34.0); MEAN PLATELET VOLUME 8.4 FL (7.0-11.0); MONO % 12.1 % (0.0-8.0); MONOCYTE # 1.4 TH/MM3 (0-0.9); NEUT % 42.1 % (16.0-70.0); PLATELET COUNT 339 TH/MM3 (150-450); RED BLOOD COUNT 2.26 MIL/MM3 (4.00-5.30); RED CELL DISTRIBUTION WIDTH 20.4 % (11.6-17.2); RETIC # 245.4 MIL/L (20.0-150.0); RETIC % 10.9 % (0.4-3.0); WHITE BLOOD COUNT 11.8 TH/MM3 (4.0-11.0)
[2017-09-09 03:58] LABS: MEAN CORPUSCULAR HGB CONC 36.2 % (32.0-36.0)
[2017-09-09 04:03] LABS: HEMATOCRIT 19.4 % (35.0-46.0)
[2017-09-09 04:23] LABS: ALKALINE PHOSPHATASE 104 U/L (45-117); TOTAL BILIRUBIN ADULT 2.7 MG/DL (0.2-1.0); TOTAL PROTEIN 8.3 GM/DL (6.4-8.2)
[2017-09-09 04:35] LABS: ALBUMIN 3.5 GM/DL (3.4-5.0); ALT (GPT) 18 U/L (10-53); AST (GOT) 72 U/L (15-37); BICARBONATE 25.9 MEQ/L (21.0-32.0); BLOOD UREA NITROGEN 8 MG/DL (7-18); CALCIUM 8.5 MG/DL (8.5-10.1); CHLORIDE 103 MEQ/L (98-107); CREATININE 0.74 MG/DL (0.50-1.00); GLOMERULAR FILTRATION RATE 109 ML/MIN (>89); GLUCOSE,RANDOM 88 MG/DL (74-106); SODIUM (NA) 136 MEQ/L (136-145)
[2017-09-09] MEDS ORDERED: SODIUM CHLORID 0.9% 500 ML INJ 500 ML IV ONE (04:45)
[2017-09-09] MEDS ORDERED: ONDANSETRON HCL 4 MG/2 ML VIAL IV PUSH ONE (04:45)
[2017-09-09 04:53] LABS: BASOPHILS 1 % (0-2); CORRECTED NUCLEATED RBC 6 /100 WBC (0-0); LYMPHOCYTES 42 % (9-44); MONOCYTES 10 % (0-8); NEUTROPHIL # MANUAL DIFF 5.3 TH/MM3 (1.8-7.7); NUCLEATED RED BLOOD CELL 6 (0-0); POLYS (SEG NEUTROPHILS) 45 % (16-70)
[2017-09-09 04:54] LABS: SICKLE CELLS 1+ (NORMAL)
[2017-09-09 04:55] VITALS: BP 105/59; PULSE 77; RESP 18; O2SAT 95
[2017-09-09 04:56] LABS: ACANTHOCYTES OCC (NORMAL); HOWELL-JOLLY BODIES PRESENT (NONE SEEN); POLYCHROMASIA 6.2 % (0.0-1.9)
== END 2017-09-09 06:02 | disposition home or self-care (01) ==
LOC: NEPE 02:46
DX: D57.00 Hb-SS disease with crisis, unspecified (principal); N94.6 Dysmenorrhea, unspecified
CPT/HCPCS: 80053; 85007; 85027; 85044; 96361; 96374; 96375; 96376; 99284; J1170; J1200; J1642; J2405; J7030; J7040

== ENCOUNTER 2017-09-13 03:44 | Emergency (ER) | payer OTHER ==
[~2017-09-13] VITALS: Ht 152.4 cm; Wt 60.0 kg
[2017-09-13 03:50] VITALS: BP 115/66; PULSE 83; RESP 18; TEMP 98.5; O2SAT 95
[2017-09-13] MEDS ORDERED: HYDROmorphone HCL PF 2 MG/ML VIAL IVS ONE ×3 (04:00→06:15)
[2017-09-13] MEDS ORDERED: diphenhydrAMINE HCL 50 MG/ML VIAL IV PUSH ONE (04:00)
[2017-09-13] MEDS ORDERED: SODIUM CHLOR 0.9% 1000 ML INJ 1,000 ML IV ONE (04:15)
[2017-09-13 04:26] LABS: HEMOGLOBIN 7.5 GM/DL (11.6-15.3); MEAN CELL VOLUME 85.5 FL (80.0-100.0); MEAN PLATELET VOLUME 7.6 FL (7.0-11.0); PLATELET COUNT 423 TH/MM3 (150-450); RED BLOOD COUNT 2.42 MIL/MM3 (4.00-5.30); RED CELL DISTRIBUTION WIDTH 20.9 % (11.6-17.2); RETIC # 190.5 MIL/L (20.0-150.0); RETIC % 7.9 % (0.4-3.0); WHITE BLOOD COUNT 10.5 TH/MM3 (4.0-11.0)
[2017-09-13 04:29] LABS: MEAN CORPUSCULAR HGB CONC 36.3 % (32.0-36.0)
[2017-09-13 04:31] LABS: HEMATOCRIT 20.7 % (35.0-46.0)
[2017-09-13 04:48] LABS: ALT (GPT) 17 U/L (10-53)
[2017-09-13 04:50] LABS: ALKALINE PHOSPHATASE 100 U/L (45-117); TOTAL PROTEIN 7.8 GM/DL (6.4-8.2)
[2017-09-13 05:06] LABS: ALBUMIN 3.3 GM/DL (3.4-5.0); AST (GOT) 70 U/L (15-37); BICARBONATE 26.8 MEQ/L (21.0-32.0); BLOOD UREA NITROGEN 3 MG/DL (7-18); CALCIUM 8.3 MG/DL (8.5-10.1); CHLORIDE 106 MEQ/L (98-107); CREATININE 0.47 MG/DL (0.50-1.00); GLOMERULAR FILTRATION RATE 185 ML/MIN (>89); GLUCOSE,RANDOM 78 MG/DL (74-106); SODIUM (NA) 141 MEQ/L (136-145)
--- NOTE | 2017-09-13 05:13 | PD ---
HPI Chief Complaint: Sickle Cell Time Seen by Provider: 03:56 Travel History International Travel<30 days: No Contact w/Intl Traveler<30days: No Traveled to known affect area: No History of Present Illness HPI 31-year-old woman, history of sickle cell disease, well-known to myself in the emergency department. Here with her typical vaso-occlusive pain, everywhere, ongoing for 2 days. Worse with menses. No other aggravating or alleviating factors. No radiation. History Past Medical History Narrative Medical Sickle cell disease Tetanus Vaccination: < 5 Years Influenza Vaccination: Yes PNEUMOCCOCAL Vaccine (Year): 2 : 1 Para: 1 Social History Alcohol Use: No Tobacco Use: No Allergies-Medications (Allergen,Severity, Reaction): Coded Allergies: morphine (Verified Allergy, Severe, RASH, 09/09/17) *MDRO Multi-Drug Resistant Organism (Verified Adverse Reaction, Unknown, MRSA, 09/09/17) MRSA (blood) - 12/18/2004 MRSA PCR screen NEGATIVE 08/27/16 & 09/21/16 Cleared per Infection Control Reported Meds & Prescriptions Reported Meds & Active Scripts Active Hydrocodone-Acetamin 10-325 mg (Hydrocodone/Acetaminophen) 10 Mg-325 Mg Tablet 1 Tab PO Q4H PRN Gnp Senna Plus 8.6-50 mg (Sennosides-Docusate Sodium) 8.6 Mg-50 Mg Tab 1 Tab PO BID Reported Hydrea (Hydroxyurea) 500 Mg Cap 500 Mg PO DAILY Folic Acid 0.4 Mg Tab 400 Mcg PO DAILY Review of Systems Except as stated in HPI: all other systems reviewed are Neg Physical Exam Narrative GENERAL: Well-appearing 31-year-old woman, no acute distress. SKIN: Focused skin assessment warm/dry. HEAD: Atraumatic. Normocephalic. EYES: Pupils equal and round. No scleral icterus. No injection or drainage. ENT: No nasal bleeding or discharge. Mucous membranes pink and moist. NECK: Trachea midline. No JVD. CARDIOVASCULAR: Regular rate and rhythm. No murmur appreciated. RESPIRATORY: No accessory muscle use. Clear to auscultation. Breath sounds equal bilaterally. GASTROINTESTINAL: Abdomen soft, non-tender, nondistended. Hepatic and splenic margins not palpable. MUSCULOSKELETAL: No obvious deformities. No clubbing. No cyanosis. No edema. NEUROLOGICAL: Awake and alert. No obvious cranial nerve deficits. Motor grossly within normal limits. Normal speech. PSYCHIATRIC: Appropriate mood and affect; insight and judgment normal. Data Data Last Documented VS Vital Signs Date Time Temp Pulse Resp B/P (MAP) Pulse Ox O2 Delivery O2 Flow Rate FiO2 09/13/17 03:50 98.5 83 18 115/66 (82) 95 Room Air Orders Orders Complete Blood Count With Diff (09/13/17 03:58) Comprehensive Metabolic Panel (09/13/17 03:58) Retic Count (09/13/17 03:58) Iv Access Insert/Monitor (09/13/17 03:58) Oximetry (09/13/17 03:58) Diphenhydramine Inj (Benadryl Inj) (09/13/17 04:00) Heparin Central Flush (Heparin Central F (09/13/17 04:00) Hydromorphone Pf Inj (Dilaudid Pf Inj) (09/13/17 04:00) Sodium Chlor 0.9% 1000 Ml Inj (Ns 1000 M (09/13/17 04:15) Diphenhydramine Inj (Benadryl Inj) (09/13/17 05:14) Hydromorphone Pf Inj (Dilaudid Pf Inj) (09/13/17 05:15) Hydromorphone Pf Inj (Dilaudid Pf Inj) (09/13/17 06:15) Labs Laboratory Tests Test 09/13/17 04:10 White Blood Count 10.5 TH/MM3 Red Blood Count 2.42 MIL/MM3 Hemoglobin 7.5 GM/DL Hematocrit 20.7 % Mean Corpuscular Volume 85.5 FL Mean Corpuscular Hemoglobin 31.0 PG Mean Corpuscular Hemoglobin Concent 36.3 % Red Cell Distribution Width 20.9 % Platelet Count 423 TH/MM3 Mean Platelet Volume 7.6 FL CBC Comment AUTO DIFF Differential Total Cells Counted 100 Neutrophils % (Manual) 39 % Band Neutrophils % 1 % Lymphocytes % 52 % Monocytes % 1 % Eosinophils % 4 % Neutrophils # (Manual) 4.5 TH/MM3 Metamyelocytes 3 % Nucleated Red Blood Cells 3 /100 WBC Differential Comment FINAL DIFF MANUAL Platelet Estimate NORMAL Platelet Morphology Comment NORMAL Sickle Cells 2+ Target Cells 1+ Reticulocyte Count 7.9 % Absolute Reticulocyte Count 190.5 MIL/L Blood Urea Nitrogen 3 MG/DL Creatinine 0.47 MG/DL Random Glucose 78 MG/DL Total Protein 7.8 GM/DL Albumin 3.3 GM/DL Calcium Level 8.3 MG/DL Alkaline Phosphatase 100 U/L Aspartate Amino Transf (AST/SGOT) 70 U/L Alanine Aminotransferase (ALT/SGPT) 17 U/L Total Bilirubin 2.0 MG/DL Sodium Level 141 MEQ/L Potassium Level 3.6 MEQ/L Chloride Level 106 MEQ/L Carbon Dioxide Level 26.8 MEQ/L Anion Gap 8 MEQ/L Estimat Glomerular Filtration Rate 185 ML/MIN [facility] Medical Decision Making Medical Screen Exam Complete: Yes Emergency Medical Condition: Yes Interpretation(s) Laboratory Tests Test 09/13/17 04:10 White Blood Count 10.5 TH/MM3 Red Blood Count 2.42 MIL/MM3 Hemoglobin 7.5 GM/DL Hematocrit 20.7 % Mean Corpuscular Volume 85.5 FL Mean Corpuscular Hemoglobin 31.0 PG Mean Corpuscular Hemoglobin Concent 36.3 % Red Cell Distribution Width 20.9 % Platelet Count 423 TH/MM3 Mean Platelet Volume 7.6 FL CBC Comment AUTO DIFF Differential Total Cells Counted 100 Neutrophils % (Manual) 39 % Band Neutrophils % 1 % Lymphocytes % 52 % Monocytes % 1 % Eosinophils % 4 % Neutrophils # (Manual) 4.5 TH/MM3 Metamyelocytes 3 % Nucleated Red Blood Cells 3 /100 WBC Differential Comment FINAL DIFF MANUAL Platelet Estimate NORMAL Platelet Morphology Comment NORMAL Sickle Cells 2+ Target Cells 1+ Reticulocyte Count 7.9 % Absolute Reticulocyte Count 190.5 MIL/L Blood Urea Nitrogen 3 MG/DL Creatinine 0.47 MG/DL Random Glucose 78 MG/DL Total Protein 7.8 GM/DL Albumin 3.3 GM/DL Calcium Level 8.3 MG/DL Alkaline Phosphatase 100 U/L Aspartate Amino Transf (AST/SGOT) 70 U/L Alanine Aminotransferase (ALT/SGPT) 17 U/L Total Bilirubin 2.0 MG/DL Sodium Level 141 MEQ/L Potassium Level 3.6 MEQ/L Chloride Level 106 MEQ/L Carbon Dioxide Level 26.8 MEQ/L Anion Gap 8 MEQ/L Estimat Glomerular Filtration Rate 185 ML/MIN Differential Diagnosis Vaso-occlusive pain,occult Infection, acute chest syndrome, other Narrative Course Medical decision-making 31-year-old woman with sickle cell disease, here for typical pain crisis. Looks well. Will access port, pain control, check labs. She follows with Dr. Rivas, community recreation coordinator in [facility]. Write her prescription. Diagnosis Primary Impression: Anemia, sickle cell with crisis Patient Instructions: General Instructions Additional Instructions: Follow-up with her community recreation coordinator. Return to the emergency department for any new or worsening symptoms. Med/Other Pt SpecificInfo: No Change to Meds Disposition: 01 DISCHARGE HOME Condition: Stable Balbir Clark MD September 13, 2017 05:13
[2017-09-13] MEDS ORDERED: diphenhydrAMINE HCL 50 MG/ML VIAL IV PUSH STA (05:14)
[2017-09-13 05:26] LABS: BANDS 1 % (0-6); CORRECTED NUCLEATED RBC 3 /100 WBC (0-0); LYMPHOCYTES 52 % (9-44); METAMYELOCYTES 3 % (0-1); MONOCYTES 1 % (0-8); NEUTROPHIL # MANUAL DIFF 4.5 TH/MM3 (1.8-7.7); NUCLEATED RED BLOOD CELL 3 (0-0); POLYS (SEG NEUTROPHILS) 39 % (16-70)
[2017-09-13 05:27] LABS: SICKLE CELLS 2+ (NORMAL); TARGET CELLS 1+ (NORMAL)
== END 2017-09-13 06:47 | disposition home or self-care (01) ==
LOC: NEPE 03:44
DX: D57.00 Hb-SS disease with crisis, unspecified (principal)
CPT/HCPCS: 80053; 85007; 85027; 85044; 96361; 96374; 96375; 96376; 99284; J1170; J1200; J1642; J7030

== ENCOUNTER 2017-09-16 04:04 | Emergency (ER) | payer OTHER ==
[2017-09-16 04:07] VITALS: BP 117/66; PULSE 94; RESP 17; TEMP 99; O2SAT 95
[2017-09-16] MEDS ORDERED: SODIUM CHLOR 0.9% 1000 ML INJ 1,000 ML IV ONE ×2 (04:43→06:00)
[2017-09-16] MEDS ORDERED: SODIUM CHLORIDE 0.9% FLUSH 10 ML FLUSH IVF PRN (04:45)
[2017-09-16] MEDS ORDERED: ACETAMINOPHEN/HYDROcodone 325 MG/10 MG TAB PO ONE (04:45)
--- NOTE | 2017-09-16 04:50 | PD ---
HPI Chief Complaint: Sickle Cell Time Seen by Provider: 04:43 Travel History International Travel<30 days: No Contact w/Intl Traveler<30days: No Traveled to known affect area: No History of Present Illness HPI Patient is a 31-year-old female presenting to the emergency department for evaluation of a sickle cell crisis. Patient states it started on September 13. She states is gotten progressively worse over the weekend. She relates it to the initiation of her menstrual cycle. She states her flow is heavy today which is exacerbating her pain. She reports her pain is a 9 out of 10 in her back in her legs. States is cramping in nature. Symptom onset was gradual, symptom severity is moderate. She denies any chest pain, shortness of breath, nausea, vomiting. Patient states she had a fever of 100.1 at 9 PM last night. At that time she took a Lortab 10 mg tablet. PFSH Past Medical History Anemia: Yes Blood Disorders: Yes (sickle cell disease) Gastrointestinal Disorders: Yes (GALLSTONES) Headaches: Yes Implanted Vascular Access Dvce: Yes (RIGHT CHEST ) Insomnia: Yes Kidney Stones: Yes Immunizations Current: Yes Pneumonia: Yes Sickle Cell Disease: Yes PNEUMOCCOCAL Vaccine (Year): 2 ?: Not LMP: 08/14/2017 : 1 Para: 1 Miscarriage: 1 : 0 Tubal Ligation: Yes Past Surgical History Body Medical Devices: right chest port Cholecystectomy: Yes Gynecologic Surgery: Yes (tubal ligation) Oral Surgery: Yes Tonsillectomy: Yes Other Surgery: Yes (right chest port) Social History Alcohol Use: No Tobacco Use: No Substance Use: No Allergies-Medications (Allergen,Severity, Reaction): Coded Allergies: morphine (Verified Allergy, Severe, RASH, 09/16/17) *MDRO Multi-Drug Resistant Organism (Verified Adverse Reaction, Unknown, MRSA, 09/16/17) MRSA (blood) - 12/18/2004 MRSA PCR screen NEGATIVE 08/27/16 & 09/21/16 Cleared per Infection Control Reported Meds & Prescriptions Reported Meds & Active Scripts Active Hydrocodone-Acetamin 10-325 mg (Hydrocodone/Acetaminophen) 10 Mg-325 Mg Tablet 1 Tab PO Q4H PRN Gnp Senna Plus 8.6-50 mg (Sennosides-Docusate Sodium) 8.6 Mg-50 Mg Tab 1 Tab PO BID Reported Hydrea (Hydroxyurea) 500 Mg Cap 500 Mg PO DAILY Folic Acid 0.4 Mg Tab 400 Mcg PO DAILY Review of Systems Except as stated in HPI: all other systems reviewed are Neg General / Constitutional: Positive: Fever, Chills HENT: No: Headaches Cardiovascular: No: Chest Pain or Discomfort Respiratory: No: Shortness of Breath Gastrointestinal: No: Nausea, Vomiting, Abdominal Pain Musculoskeletal: Positive: Myalgias, Cramping, Pain Physical Exam Narrative GENERAL: Well-developed, well-nourished, alert -Emirati female. Presenting in no acute distress. SKIN: Warm and dry. HEAD: Atraumatic. Normocephalic. EYES: Pupils equal and round. No scleral icterus. No injection or drainage. ENT: No nasal bleeding or discharge. Mucous membranes pink and moist. NECK: Trachea midline. No JVD. CARDIOVASCULAR: Regular rate and rhythm. RESPIRATORY: No accessory muscle use. Clear to auscultation. Breath sounds equal bilaterally. GASTROINTESTINAL: Abdomen soft, non-tender, nondistended. Hepatic and splenic margins not palpable. MUSCULOSKELETAL: Extremities without clubbing, cyanosis, or edema. No obvious deformities. NEUROLOGICAL: Awake and alert. No obvious cranial nerve deficits. Motor grossly within normal limits. Five out of 5 muscle strength in the arms and legs. Normal speech. PSYCHIATRIC: Appropriate mood and affect; insight and judgment normal. Data Data Last Documented VS Vital Signs Date Time Temp Pulse Resp B/P (MAP) Pulse Ox O2 Delivery O2 Flow Rate FiO2 09/16/17 06:35 09/16/17 05:17 95 18 93 Room Air 09/16/17 04:07 99.0 Orders Orders Complete Blood Count With Diff (09/16/17 04:43) Comprehensive Metabolic Panel (09/16/17 04:43) Retic Count (09/16/17 04:43) Ecg Monitoring (09/16/17 04:43) Iv Access Insert/Monitor (09/16/17 04:43) Oximetry (09/16/17 04:43) Sodium Chloride 0.9% Flush (Ns Flush) (09/16/17 04:45) Sodium Chlor 0.9% 1000 Ml Inj (Ns 1000 M (09/16/17 04:43) Acetamin-Hydrocod 325-10 Mg ([place] 10-32 (09/16/17 04:45) Sodium Chlor 0.9% 1000 Ml Inj (Ns 1000 M (09/16/17 06:00) Heparin Central Flush (Heparin Central F (09/16/17 06:30) Ed Discharge Order (09/16/17 06:31) Labs Laboratory Tests Test 09/16/17 05:07 White Blood Count 11.8 TH/MM3 Red Blood Count 2.33 MIL/MM3 Hemoglobin 7.3 GM/DL Hematocrit 20.2 % Mean Corpuscular Volume 86.6 FL Mean Corpuscular Hemoglobin 31.2 PG Mean Corpuscular Hemoglobin Concent 36.0 % Red Cell Distribution Width 21.1 % Platelet Count 376 TH/MM3 Mean Platelet Volume 8.1 FL Neutrophils (%) (Auto) 46.2 % Lymphocytes (%) (Auto) 40.2 % Monocytes (%) (Auto) 10.1 % Eosinophils (%) (Auto) 2.5 % Basophils (%) (Auto) 1.0 % Neutrophils # (Auto) 5.4 TH/MM3 Lymphocytes # (Auto) 4.7 TH/MM3 Monocytes # (Auto) 1.2 TH/MM3 Eosinophils # (Auto) 0.3 TH/MM3 Basophils # (Auto) 0.1 TH/MM3 CBC Comment AUTO DIFF Reticulocyte Count 10.0 % Absolute Reticulocyte Count 232.6 MIL/L Blood Urea Nitrogen 6 MG/DL Creatinine 0.53 MG/DL Random Glucose 97 MG/DL Total Protein 7.6 GM/DL Albumin 3.3 GM/DL Calcium Level 8.3 MG/DL Alkaline Phosphatase 97 U/L Aspartate Amino Transf (AST/SGOT) 72 U/L Alanine Aminotransferase (ALT/SGPT) 18 U/L Total Bilirubin 2.4 MG/DL Sodium Level 140 MEQ/L Potassium Level 3.4 MEQ/L Chloride Level 104 MEQ/L Carbon Dioxide Level 27.6 MEQ/L Anion Gap 8 MEQ/L Estimat Glomerular Filtration Rate 161 ML/MIN MDM Medical Decision Making Medical Screen Exam Complete: Yes Emergency Medical Condition: Yes Medical Record Reviewed: Yes Interpretation(s) Vital Signs Date Time Temp Pulse Resp B/P (MAP) Pulse Ox O2 Delivery O2 Flow Rate FiO2 09/16/17 04:07 99.0 94 17 117/66 (81) 60 Differential Diagnosis Sickle cell crisis versus sickle cell anemia versus malingering versus metabolic abnormality versus anemia versus other Narrative Course Patient is a 31-year-old female with a history of sickle cell disease presenting with complaints of a sickle cell crisis. Patient was seen and evaluated on 13 September the emergency department when her crisis initially started. She states it got worse today after several days of heavy menstrual flow. Labs ordered and pending. Patient be given IV fluids and Lortab for pain. Patient had requested to be discharged to my attending physician. Her labs were reviewed and the discharge order was placed. I went in to speak with patient, she became belligerent and using expletives. She and I had a good report upon her arrival to the emergency department. She became upset that she was only ordered Lortab. I explained to her that she last took the medication at 9 PM, it was ordered again around 430 this morning. She continued to yell and get upset with me, I left the room. Dr. Deng discharged patient home. Anne Thao September 16, 2017 04:50
[2017-09-16 05:17] VITALS: BP 107/67; PULSE 95; RESP 18; O2SAT 93
[2017-09-16 05:27] LABS: AUTOMATED NEUTROPHIL # 5.4 TH/MM3 (1.8-7.7); BASOPHIL # 0.1 TH/MM3 (0-0.2); EOSINOPHIL # 0.3 TH/MM3 (0-0.4); EOSINOPHIL % 2.5 % (0.0-4.0); HEMOGLOBIN 7.3 GM/DL (11.6-15.3); LYMPH % 40.2 % (9.0-44.0); LYMPHOCYTE # 4.7 TH/MM3 (1.0-4.8); MEAN CELL VOLUME 86.6 FL (80.0-100.0); MEAN CORPUSCULAR HEMOGLOBIN 31.2 PG (27.0-34.0); MEAN PLATELET VOLUME 8.1 FL (7.0-11.0); MONO % 10.1 % (0.0-8.0); MONOCYTE # 1.2 TH/MM3 (0-0.9); NEUT % 46.2 % (16.0-70.0); PLATELET COUNT 376 TH/MM3 (150-450); RED BLOOD COUNT 2.33 MIL/MM3 (4.00-5.30); RED CELL DISTRIBUTION WIDTH 21.1 % (11.6-17.2); RETIC # 232.6 MIL/L (20.0-150.0); WHITE BLOOD COUNT 11.8 TH/MM3 (4.0-11.0)
[2017-09-16 05:56] LABS: ALT (GPT) 18 U/L (10-53)
[2017-09-16 05:58] LABS: ALKALINE PHOSPHATASE 97 U/L (45-117); TOTAL BILIRUBIN ADULT 2.4 MG/DL (0.2-1.0); TOTAL PROTEIN 7.6 GM/DL (6.4-8.2)
[2017-09-16 06:03] LABS: ALBUMIN 3.3 GM/DL (3.4-5.0); AST (GOT) 72 U/L (15-37); BICARBONATE 27.6 MEQ/L (21.0-32.0); BLOOD UREA NITROGEN 6 MG/DL (7-18); CALCIUM 8.3 MG/DL (8.5-10.1); CHLORIDE 104 MEQ/L (98-107); CREATININE 0.53 MG/DL (0.50-1.00); GLOMERULAR FILTRATION RATE 161 ML/MIN (>89); GLUCOSE,RANDOM 97 MG/DL (74-106); SODIUM (NA) 140 MEQ/L (136-145)
[2017-09-16 06:04] LABS: HEMATOCRIT 20.2 % (35.0-46.0)
--- NOTE | 2017-09-16 06:09 | PD ---
Data Data Last Documented VS Vital Signs Date Time Temp Pulse Resp B/P (MAP) Pulse Ox O2 Delivery O2 Flow Rate FiO2 09/16/17 05:17 95 18 107/67 (80) 93 Room Air 09/16/17 04:07 99.0 Orders Orders Complete Blood Count With Diff (09/16/17 04:43) Comprehensive Metabolic Panel (09/16/17 04:43) Retic Count (09/16/17 04:43) Ecg Monitoring (09/16/17 04:43) Iv Access Insert/Monitor (09/16/17 04:43) Oximetry (09/16/17 04:43) Sodium Chloride 0.9% Flush (Ns Flush) (09/16/17 04:45) Sodium Chlor 0.9% 1000 Ml Inj (Ns 1000 M (09/16/17 04:43) Acetamin-Hydrocod 325-10 Mg ([place] 10-32 (09/16/17 04:45) Sodium Chlor 0.9% 1000 Ml Inj (Ns 1000 M (09/16/17 06:00) Heparin Central Flush (Heparin Central F (09/16/17 06:30) Ed Discharge Order (09/16/17 06:31) Labs Laboratory Tests Test 09/16/17 05:07 White Blood Count 11.8 TH/MM3 Red Blood Count 2.33 MIL/MM3 Hemoglobin 7.3 GM/DL Hematocrit 20.2 % Mean Corpuscular Volume 86.6 FL Mean Corpuscular Hemoglobin 31.2 PG Mean Corpuscular Hemoglobin Concent 36.0 % Red Cell Distribution Width 21.1 % Platelet Count 376 TH/MM3 Mean Platelet Volume 8.1 FL Neutrophils (%) (Auto) 46.2 % Lymphocytes (%) (Auto) 40.2 % Monocytes (%) (Auto) 10.1 % Eosinophils (%) (Auto) 2.5 % Basophils (%) (Auto) 1.0 % Neutrophils # (Auto) 5.4 TH/MM3 Lymphocytes # (Auto) 4.7 TH/MM3 Monocytes # (Auto) 1.2 TH/MM3 Eosinophils # (Auto) 0.3 TH/MM3 Basophils # (Auto) 0.1 TH/MM3 CBC Comment AUTO DIFF Reticulocyte Count 10.0 % Absolute Reticulocyte Count 232.6 MIL/L Blood Urea Nitrogen 6 MG/DL Creatinine 0.53 MG/DL Random Glucose 97 MG/DL Total Protein 7.6 GM/DL Albumin 3.3 GM/DL Calcium Level 8.3 MG/DL Alkaline Phosphatase 97 U/L Aspartate Amino Transf (AST/SGOT) 72 U/L Alanine Aminotransferase (ALT/SGPT) 18 U/L Total Bilirubin 2.4 MG/DL Sodium Level 140 MEQ/L Potassium Level 3.4 MEQ/L Chloride Level 104 MEQ/L Carbon Dioxide Level 27.6 MEQ/L Anion Gap 8 MEQ/L Estimat Glomerular Filtration Rate 161 ML/MIN [facility] Supervised Visit with KYE: No Narrative Course Patient seen by me in addition to Anne Andrea LOUIS, this is a 31-year-old female with a history of sickle cell disease presents emergency department for evaluation of pain. She was evaluated initially by Ms. Thao, the patient is being disruptive and is recording us while we are in the hallway caring for other patients. We have asked her several times to discontinue recording as other patients may also be in the recordings. I had an encounter with her, she became argumentative with me and stated that she refused the pain pill here because she would not have come here to get the exact same medication that she can get home. I discussed with her that I be happy to order fluids and I was considering ordering other medications with the patient interrupted me and stated that she just wanted her blood work. She requested to be discharged. She would not allow me to offer her other pain medications. She reiterated that she wanted to be discharged because she did not want to get a bill for this visit. She appears to be in no obvious distress , she has been ambulating in the hallways and continues to walk up to the nurses station and take pictures of multiple providers. Patient's hemoglobin today is 7.3, her chemistries are within normal limits. Hemoglobin is stable over the past week, review of her records show that she has been here September 09 - September 13 and now today. At the patient's request we will discharge her into her own care. Diagnosis Primary Impression: Sickle cell pain crisis Disposition: 01 DISCHARGE HOME Condition: Stable Pritesh Deng MD September 16, 2017 06:09
[2017-09-16 06:50] LABS: BASOPHILS 1 % (0-2); CORRECTED NUCLEATED RBC 3 /100 WBC (0-0); LYMPHOCYTES 33 % (9-44); MONOCYTES 9 % (0-8); NEUTROPHIL # MANUAL DIFF 6.3 TH/MM3 (1.8-7.7); NUCLEATED RED BLOOD CELL 3 (0-0); POLYS (SEG NEUTROPHILS) 53 % (16-70)
[2017-09-16 06:51] LABS: SICKLE CELLS 2+ (NORMAL)
[2017-09-16 06:52] LABS: HOWELL-JOLLY BODIES PRESENT (NONE SEEN); KERATOCYTES OCC (NORMAL)
== END 2017-09-16 06:49 | disposition home or self-care (01) ==
LOC: NEPC 04:04
DX: D57.00 Hb-SS disease with crisis, unspecified (principal)
CPT/HCPCS: 80053; 85007; 85027; 85044; 99283

== ENCOUNTER 2017-09-17 04:14 | Emergency (ER) | payer OTHER ==
[~2017-09-17] VITALS: Ht 152.4 cm; Wt 60.0 kg
[2017-09-17 04:33] VITALS: BP 104/60; PULSE 97; RESP 18; TEMP 99.3; O2SAT 95
[2017-09-17] MEDS ORDERED: KETOROLAC TROMETHAMINE 10 MG TAB PO ONE (05:30)
[2017-09-17] MEDS ORDERED: HYDROmorphone HCL PF 2 MG/ML VIAL IV PUSH ONE (05:30)
[2017-09-17] MEDS ORDERED: diphenhydrAMINE HCL 25 MG CAP PO ONE (05:30)
--- NOTE | 2017-09-17 05:39 | PD ---
HPI Chief Complaint: Sickle Cell Time Seen by Provider: 05:06 Travel History International Travel<30 days: No Contact w/Intl Traveler<30days: No Traveled to known affect area: No History of Present Illness HPI Patient 31-year-old female well-known to me in this department for evaluation of sickle cell anemia. She states her pain is in her abdominal, cramping, bilateral knees aching, she was actually seen by me yesterday for similar symptoms and evaluated initially by my TOOL SETTER. The patient became belligerent and ultimately wished for her blood work and left without pain medicine which was ordered orally. Patient states her symptoms have been constant since he left, today. She also endorses chest pain without shortness of breath or fever today. Patient has been taking her Percocet at home without relief. She denies any nausea vomiting diarrhea constipation. She states she was dropped off here by her fianc today. States her pain is severe, location as above, context as above, associated signs and symptoms as above. PFSH Past Medical History Anemia: Yes Blood Disorders: Yes (sickle cell disease) Diminished Hearing: No Gastrointestinal Disorders: Yes (GALLSTONES) Headaches: Yes Implanted Vascular Access Dvce: Yes (RIGHT CHEST ) Insomnia: Yes Kidney Stones: Yes Immunizations Current: Yes Pneumonia: Yes Sickle Cell Disease: Yes Tetanus Vaccination: < 5 Years Influenza Vaccination: Yes PNEUMOCCOCAL Vaccine (Year): 2 ?: Not LMP: 09/16/2017 : 1 Para: 1 Miscarriage: 1 : 0 Tubal Ligation: Yes Past Surgical History Abdominal Surgery: Yes Body Medical Devices: right chest port Section: Yes (X 1) Cholecystectomy: Yes Gynecologic Surgery: Yes (tubal ligation) Hysterectomy: No Oral Surgery: Yes Thoracic Surgery: Yes (CHEST PORT ) Tonsillectomy: Yes Other Surgery: Yes (right chest port) Social History Alcohol Use: No Tobacco Use: No Substance Use: No Allergies-Medications (Allergen,Severity, Reaction): Coded Allergies: morphine (Verified Allergy, Severe, RASH, 09/16/17) *MDRO Multi-Drug Resistant Organism (Verified Adverse Reaction, Unknown, MRSA, 09/16/17) MRSA (blood) - 12/18/2004 MRSA PCR screen NEGATIVE 08/27/16 & 09/21/16 Cleared per Infection Control Reported Meds & Prescriptions Reported Meds & Active Scripts Active Hydrocodone-Acetamin 10-325 mg (Hydrocodone/Acetaminophen) 10 Mg-325 Mg Tablet 1 Tab PO Q4H PRN Gnp Senna Plus 8.6-50 mg (Sennosides-Docusate Sodium) 8.6 Mg-50 Mg Tab 1 Tab PO BID Reported Hydrea (Hydroxyurea) 500 Mg Cap 500 Mg PO DAILY Folic Acid 0.4 Mg Tab 400 Mcg PO DAILY Review of Systems Except as stated in HPI: all other systems reviewed are Neg Physical Exam Narrative GENERAL: Well-developed well-nourished, much more pleasant today on the initial encounter. She appears quite comfortable in no obvious distress. Not tachycardic not tachypneic. She is texting on a phone in no obvious distress SKIN: Focused skin assessment warm/dry. HEAD: Atraumatic. Normocephalic. EYES: Pupils equal and round. Scleral icterus.. No injection or drainage. ENT: No nasal bleeding or discharge. Mucous membranes pink and moist. NECK: Trachea midline. No JVD. CARDIOVASCULAR: Regular rate and rhythm. No murmur appreciated. RESPIRATORY: No accessory muscle use. Clear to auscultation. Breath sounds equal bilaterally. No wheezes rales rhonchi peer GASTROINTESTINAL: Abdomen soft, non-tender, nondistended. Hepatic and splenic margins not palpable. Abdomen is benign MUSCULOSKELETAL: No obvious deformities. No clubbing. No cyanosis. No edema. Bilateral mild knee tenderness peer NEUROLOGICAL: Awake and alert. No obvious cranial nerve deficits. Motor grossly within normal limits. Normal speech. PSYCHIATRIC: Appropriate mood and affect; insight and judgment normal. Data Data Last Documented VS Vital Signs Date Time Temp Pulse Resp B/P (MAP) Pulse Ox O2 Delivery O2 Flow Rate FiO2 09/17/17 04:33 99.3 97 18 104/60 (75) 95 Orders Orders Electrocardiogram (09/17/17 ) Chest, Pa & Lat (09/17/17 ) Hydromorphone Pf Inj (Dilaudid Pf Inj) (09/17/17 05:30) Diphenhydramine (Benadryl) (09/17/17 05:30) Ketorolac (Toradol) (09/17/17 05:30) Hydromorphone Pf Inj (Dilaudid Pf Inj) (09/17/17 05:45) MDM Medical Decision Making Medical Screen Exam Complete: Yes Emergency Medical Condition: Yes Differential Diagnosis Occlusive sickle cell crisis, opiate dependence, acute chest seems unlikely peer Narrative Course Patient room to the emergency department, she appears fairly comfortable, vital signs are reassuring. Chest x-ray and EKG are also reassuring nonischemic and no signs of pulmonary edema or pneumonia. I reviewed her labs from yesterday, certainly she is anemic with a hemoglobin of 7.3 but this is been stable over the past 2 weeks or so. She has been checked here at least twice in that timeframe both with hemoglobins in the mid to low sevens. Patient had orders for IM Dilaudid, p.o. Toradol, p.o. Benadryl and she has refused these medications. I went to reassess her after chest x-ray and EKG and her refusal of meds and she is face timing, I offered to come back in a few minutes that she is on the phone and she nodded her head that she would like me to come back. I went to see another patient, and when I came out of was informed by nursing that the patient in no apparent distress eloped from the emergency department, I did not have a chance to reexamine her or academic counselor her. Diagnosis Primary Impression: Sickle cell pain crisis Disposition: 07 AGAINST MEDICAL ADVICE (Eloped) Pritesh Deng MD September 17, 2017 05:39
[2017-09-17] MEDS ORDERED: HYDROmorphone HCL PF 2 MG/ML VIAL IM ONE (05:45)
--- NOTE | 2017-09-17 06:08 | RADRPT ---
EXAM DATE/TIME: 09/17/2017 05:37 [facility] COMPARISON: No previous studies available for comparison. INDICATIONS : Chest pain. MEDICAL HISTORY : Sickle Cell disease. SURGICAL HISTORY : None. ENCOUNTER: Initial ACUITY: 1 day PAIN SCORE: 3/10 LOCATION: Bilateral chest FINDINGS: PA and lateral views of the chest demonstrate the lungs to be symmetrically aerated without evidence of mass, infiltrate or effusion. The cardiomediastinal contours are unremarkable. Osseous structure s are intact. Cholecystectomy clips CONCLUSION: Normal examination. Right subclavian Rvaoye-z-Eler in excellent position Balbir Oneill MD on September 17, 2017 at 6:06 Board Certified Radiologist. This report was verified electronically.
--- NOTE | 2017-09-17 09:11 | EKG ---
Date Performed: 09/17/2017 Time Performed: 05:45:49 PTAGE: 31 years EKG: Sinus rhythm NONSPECIFIC T-WAVE ABNORMALITY BORDERLINE ECG PREVIOUS TRACING : 04/15/2017 10.11 DOCTOR: Balbir Cedeño Interpretating Date/Time 09/17/2017 09:09:43
== END 2017-09-17 06:43 | disposition left against medical advice (07) ==
LOC: NEPC 04:14
DX: D57.00 Hb-SS disease with crisis, unspecified (principal); R94.31 Abnormal electrocardiogram [ECG] [EKG]
CPT/HCPCS: 71046; 93005

== ENCOUNTER 2017-09-23 02:50 | Emergency (ER) | payer OTHER ==
[2017-09-23 02:53] VITALS: BP 115/77; PULSE 96; RESP 15; TEMP 98.8; O2SAT 99
[2017-09-23] MEDS ORDERED: SODIUM CHLOR 0.9% 1000 ML INJ 1,000 ML IV ONE ×2 (03:47→06:30)
[2017-09-23] MEDS ORDERED: HYDROmorphone HCL PF 2 MG/ML VIAL IV PUSH ONE ×2 (04:00→06:30)
[2017-09-23] MEDS ORDERED: diphenhydrAMINE HCL 50 MG/ML VIAL IV PUSH ONE ×2 (04:00→06:30)
[2017-09-23] MEDS ORDERED: KETOROLAC TROMETHAMINE 30 MG/ML (IVP) VIAL IVP ONE (04:00)
[2017-09-23] MEDS ORDERED: SODIUM CHLORIDE 0.9% FLUSH 10 ML FLUSH IVF PRN (04:00)
[2017-09-23 04:07] VITALS: O2SAT 100
[2017-09-23 04:41] LABS: ALKALINE PHOSPHATASE 101 U/L (45-117); TOTAL BILIRUBIN ADULT 2.3 MG/DL (0.2-1.0); TOTAL PROTEIN 8.2 GM/DL (6.4-8.2)
--- NOTE | 2017-09-23 04:53 | PD ---
HPI Chief Complaint: Sickle Cell Time Seen by Provider: 03:47 Travel History International Travel<30 days: No Contact w/Intl Traveler<30days: No Traveled to known affect area: No History of Present Illness HPI 31-year-old female with sickle cell disease presents for typical pain associated with her vaso-occlusive crises. Patient complains of back pain and leg pain and chest pain which are typical for her. Patient states she has been using her prescription pain medication without symptom relief. Patient has been seen already in the month of September and for same complaint. Patient denies fever chills shortness of breath referred neck jaw shoulder arm abdominal pain nausea vomiting flank pain dysuria frequency urgency or respiratory illness symptoms. She denies injury. [facility] Past Medical History Narrative Medical Sickle cell disease; nursing notes reviewed Anemia: Yes Arthritis: No Asthma: No Autoimmune Disease: No Blood Disorders: Yes (sickle cell disease) Anxiety: No Depression: No Heart Rhythm Problems: No Cancer: No Cardiovascular Problems: No High Cholesterol: No Chemotherapy: No Chest Pain: No Congestive Heart Failure: No COPD: No Cerebrovascular Accident: No Diabetes: No Diminished Hearing: No Endocrine: No Gastrointestinal Disorders: Yes (GALLSTONES) GERD: No Genitourinary: No Headaches: Yes Hiatal Hernia: No Heparin Induced Thrombocytopen: No Immune Disorder: No Implanted Vascular Access Dvce: Yes (RIGHT CHEST ) Insomnia: Yes Kidney Stones: Yes Musculoskeletal: No Neurologic: No Psychiatric: No Reproductive: No Respiratory: No Immunizations Current: Yes Migraines: No Pneumonia: Yes Radiation Therapy: No Renal Failure: No Seizures: No Sickle Cell Disease: Yes Sleep Apnea: No Thyroid Disease: No Ulcer: No PNEUMOCCOCAL Vaccine (Year): 2 ?: LMP: 09/23/2017 : 1 Para: 1 Miscarriage: 1 : 0 Tubal Ligation: Yes Past Surgical History Abdominal Surgery: Yes AICD: No Arteriovenous Shunt: No Body Medical Devices: right chest port Cardiac Surgery: No Section: Yes (X 1) Cholecystectomy: Yes Ear Surgery: No Endocrine Surgery: No Eye Surgery: No Genitourinary Surgery: No Gynecologic Surgery: Yes (tubal ligation) Hysterectomy: No Insulin Pump: No Joint Replacement: No Oral Surgery: Yes Pacemaker: No Thoracic Surgery: Yes (CHEST PORT ) Tonsillectomy: Yes Other Surgery: Yes (right chest port) Social History Alcohol Use: No Tobacco Use: No Substance Use: No Allergies-Medications (Allergen,Severity, Reaction): Coded Allergies: morphine (Verified Allergy, Severe, RASH, 09/23/17) *MDRO Multi-Drug Resistant Organism (Verified Adverse Reaction, Unknown, MRSA, 09/23/17) MRSA (blood) - 12/18/2004 MRSA PCR screen NEGATIVE 08/27/16 & 09/21/16 Cleared per Infection Control Reported Meds & Prescriptions Reported Meds & Active Scripts Active Hydrocodone-Acetamin 10-325 mg (Hydrocodone/Acetaminophen) 10 Mg-325 Mg Tablet 1 Tab PO Q4H PRN Gnp Senna Plus 8.6-50 mg (Sennosides-Docusate Sodium) 8.6 Mg-50 Mg Tab 1 Tab PO BID Reported Hydrea (Hydroxyurea) 500 Mg Cap 500 Mg PO DAILY Folic Acid 0.4 Mg Tab 400 Mcg PO DAILY Review of Systems Except as stated in HPI: all other systems reviewed are Neg General / Constitutional: No: Fever, Chills HENT: No: Congestion Cardiovascular: Positive: Chest Pain or Discomfort Respiratory: No: Shortness of Breath Gastrointestinal: No: Nausea, Vomiting, Abdominal Pain Genitourinary: No: Flank Pain Musculoskeletal: Positive: Pain Skin: No Rash Neurologic: No: Weakness Psychiatric: Positive: Anxiety Hematologic/Lymphatic: No: Lymph Node Enlargement Physical Exam Narrative GENERAL: Well-developed thin female in no acute distress no respiratory distress SKIN: Warm and dry. HEAD: Normocephalic. EYES: No scleral icterus. No injection or drainage. NECK: Supple, trachea midline. No JVD or lymphadenopathy. CARDIOVASCULAR: Regular rate and rhythm without murmurs, gallops, or rubs. RESPIRATORY: Breath sounds equal bilaterally. No accessory muscle use. GASTROINTESTINAL: Abdomen soft, non-tender, nondistended. MUSCULOSKELETAL: No cyanosis, or edema. BACK: Nontender without obvious deformity. No CVA tenderness. Data Data Last Documented VS Vital Signs Date Time Temp Pulse Resp B/P (MAP) Pulse Ox O2 Delivery O2 Flow Rate FiO2 09/23/17 07:17 09/23/17 06:29 88 18 94 Room Air 09/23/17 02:53 98.8 Orders Orders Complete Blood Count With Diff (09/23/17 03:47) Comprehensive Metabolic Panel (09/23/17 03:47) Retic Count (09/23/17 03:47) Ecg Monitoring (09/23/17 03:47) Iv Access Insert/Monitor (09/23/17 03:47) Oximetry (09/23/17 03:47) Ketorolac Inj (Toradol Inj) (09/23/17 04:00) Sodium Chloride 0.9% Flush (Ns Flush) (09/23/17 04:00) Sodium Chlor 0.9% 1000 Ml Inj (Ns 1000 M (09/23/17 03:47) Hydromorphone Pf Inj (Dilaudid Pf Inj) (09/23/17 04:00) Diphenhydramine Inj (Benadryl Inj) (09/23/17 04:00) Promethazine Inj (Phenergan Inj) (09/23/17 05:00) Hydromorphone Pf Inj (Dilaudid Pf Inj) (09/23/17 06:30) Diphenhydramine Inj (Benadryl Inj) (09/23/17 06:30) Sodium Chlor 0.9% 1000 Ml Inj (Ns 1000 M (09/23/17 06:30) Ed Discharge Order (09/23/17 06:45) Labs Laboratory Tests Test 09/23/17 04:00 White Blood Count 10.6 TH/MM3 Red Blood Count 2.50 MIL/MM3 Hemoglobin 7.9 GM/DL Hematocrit 21.8 % Mean Corpuscular Volume 87.1 FL Mean Corpuscular Hemoglobin 31.7 PG Mean Corpuscular Hemoglobin Concent 36.5 % Red Cell Distribution Width 22.8 % Platelet Count 323 TH/MM3 Mean Platelet Volume 8.4 FL Neutrophils (%) (Auto) 41.2 % Lymphocytes (%) (Auto) 45.3 % Monocytes (%) (Auto) 10.6 % Eosinophils (%) (Auto) 1.3 % Basophils (%) (Auto) 1.6 % Neutrophils # (Auto) 4.4 TH/MM3 Lymphocytes # (Auto) 4.8 TH/MM3 Monocytes # (Auto) 1.1 TH/MM3 Eosinophils # (Auto) 0.1 TH/MM3 Basophils # (Auto) 0.2 TH/MM3 CBC Comment AUTO DIFF Differential Total Cells Counted 100 Neutrophils % (Manual) 48 % Band Neutrophils % 1 % Lymphocytes % 40 % Monocytes % 6 % Eosinophils % 5 % Neutrophils # (Manual) 5.2 TH/MM3 Nucleated Red Blood Cells 18 /100 WBC Differential Comment FINAL DIFF MANUAL Platelet Estimate NORMAL Platelet Morphology Comment ENLARGED Polychromasia 3.3 % Sickle Cells 2+ [employer] Bodies PRESENT Reticulocyte Count 13.5 % Absolute Reticulocyte Count 337.6 MIL/L Hematology Comments Blood Urea Nitrogen 7 MG/DL Creatinine 0.61 MG/DL Random Glucose 82 MG/DL Total Protein 8.2 GM/DL Albumin 3.5 GM/DL Calcium Level 8.2 MG/DL Alkaline Phosphatase 101 U/L Aspartate Amino Transf (AST/SGOT) 81 U/L Alanine Aminotransferase (ALT/SGPT) 21 U/L Total Bilirubin 2.3 MG/DL Sodium Level 138 MEQ/L Potassium Level 3.9 MEQ/L Chloride Level 105 MEQ/L Carbon Dioxide Level 25.3 MEQ/L Anion Gap 8 MEQ/L Estimat Glomerular Filtration Rate 137 ML/MIN MDM Medical Decision Making Medical Screen Exam Complete: Yes Emergency Medical Condition: Yes Medical Record Reviewed: Yes Differential Diagnosis Sickle cell anemia, vaso-occlusive crisis, UTI, sepsis Narrative Course [facility] accessed and specimens collected to sent for resulting patient administered a one-time dose of Dilaudid 1 mg IV Benadryl 25 mg IV and Phenergan 25 mg IM Patient's hemoglobin has remained essentially unchanged with hemoglobin of 7.9 hemoglobin was 7.3 patient reticulocyte count has increased from 10-13.5 with an absolute retic of 337.6; total bilirubin remains 2.3 Diagnosis Primary Impression: Anemia, sickle cell with crisis Referrals: Primary Care Physician call for appointment Dr. Rivas your briquette maker Patient Instructions: General Instructions Additional Instructions: Increase fluid hydration Take acetaminophen as needed for fever 100.4F or greater or may take ibuprofen/ Advil/Motrin per package directions as needed for fever 100.4F or greater or for pain Associates inflammation Follow-up with your primary care provider/briquette maker Dr. Rivas Return to the emergency department for any concerns or change in condition Med/Other Pt SpecificInfo: No Change to Meds Disposition: 01 DISCHARGE HOME Condition: Stable Halina Jiang MD September 23, 2017 04:53
[2017-09-23] MEDS ORDERED: PROMETHAZINE INJ 25 MG/ML VIAL IM ONE (05:00)
[2017-09-23 05:14] LABS: AUTOMATED NEUTROPHIL # 4.4 TH/MM3 (1.8-7.7); BASOPHIL # 0.2 TH/MM3 (0-0.2); BASOPHIL % 1.6 % (0.0-2.0); EOSINOPHIL # 0.1 TH/MM3 (0-0.4); EOSINOPHIL % 1.3 % (0.0-4.0); HEMATOCRIT 21.8 % (35.0-46.0); HEMOGLOBIN 7.9 GM/DL (11.6-15.3); LYMPH % 45.3 % (9.0-44.0); LYMPHOCYTE # 4.8 TH/MM3 (1.0-4.8); MEAN CELL VOLUME 87.1 FL (80.0-100.0); MEAN CORPUSCULAR HEMOGLOBIN 31.7 PG (27.0-34.0); MEAN PLATELET VOLUME 8.4 FL (7.0-11.0); MONO % 10.6 % (0.0-8.0); MONOCYTE # 1.1 TH/MM3 (0-0.9); NEUT % 41.2 % (16.0-70.0); PLATELET COUNT 323 TH/MM3 (150-450); RED CELL DISTRIBUTION WIDTH 22.8 % (11.6-17.2); RETIC # 337.6 MIL/L (20.0-150.0); RETIC % 13.5 % (0.4-3.0); WHITE BLOOD COUNT 10.6 TH/MM3 (4.0-11.0)
[2017-09-23 05:16] LABS: MEAN CORPUSCULAR HGB CONC 36.5 % (32.0-36.0)
[2017-09-23 06:08] LABS: ALBUMIN 3.5 GM/DL (3.4-5.0); ALT (GPT) 21 U/L (10-53); AST (GOT) 81 U/L (15-37); BICARBONATE 25.3 MEQ/L (21.0-32.0); BLOOD UREA NITROGEN 7 MG/DL (7-18); CALCIUM 8.2 MG/DL (8.5-10.1); CHLORIDE 105 MEQ/L (98-107); CREATININE 0.61 MG/DL (0.50-1.00); GLOMERULAR FILTRATION RATE 137 ML/MIN (>89); GLUCOSE,RANDOM 82 MG/DL (74-106); SODIUM (NA) 138 MEQ/L (136-145)
[2017-09-23 06:16] LABS: BANDS 1 % (0-6); CORRECTED NUCLEATED RBC 18 /100 WBC (0-0); LYMPHOCYTES 40 % (9-44); MONOCYTES 6 % (0-8); NEUTROPHIL # MANUAL DIFF 5.2 TH/MM3 (1.8-7.7); NUCLEATED RED BLOOD CELL 18 (0-0); POLYS (SEG NEUTROPHILS) 48 % (16-70)
[2017-09-23 06:17] LABS: HOWELL-JOLLY BODIES PRESENT (NONE SEEN); POLYCHROMASIA 3.3 % (0.0-1.9); SICKLE CELLS 2+ (NORMAL)
[2017-09-23 06:29] VITALS: BP 137/75; PULSE 88; RESP 18; O2SAT 94
== END 2017-09-23 07:18 | disposition home or self-care (01) ==
LOC: NEPC 02:50
DX: D57.00 Hb-SS disease with crisis, unspecified (principal)
CPT/HCPCS: 80053; 85007; 85027; 85044; 96361; 96374; 96375; 96376; 99284; J1170; J1200; J1885; J7030

== ENCOUNTER 2017-09-27 03:28 | Inpatient (IN) | payer OTHER ==
[2017-09-27] VITALS (12 sets, daily range): BP systolic 89–144; BP diastolic 51–84; PULSE 80–113; RESP 16–18; TEMP 98.1–100.4; O2SAT 95–98
--- NOTE | 2017-09-27 06:36 | PD ---
HPI Chief Complaint: Sickle Cell Time Seen by Provider: 05:08 Travel History International Travel<30 days: No Contact w/Intl Traveler<30days: No Traveled to known affect area: No History of Present Illness HPI pt is a 31 yr old femlae with history of SCD and has been in our ER many times , recently 09/23 had elevated retic count 13 and mild anemia , then she went to her Heme doctor redrew her blood and it was lower as per pt, she reports fever and no source no dysuria ,no cough no chills , she worries sje has an infection somewhere, Her home pain meds are not relieving her pain in back and legs PFSH Past Medical History Anemia: Yes Arthritis: No Asthma: No Autoimmune Disease: No Blood Disorders: Yes (sickle cell disease) Anxiety: No Depression: No Heart Rhythm Problems: No Cancer: No Cardiovascular Problems: No High Cholesterol: No Chemotherapy: No Chest Pain: No Congestive Heart Failure: No COPD: No Cerebrovascular Accident: No Diabetes: No Diminished Hearing: No Endocrine: No Gastrointestinal Disorders: Yes (GALLSTONES) GERD: No Genitourinary: No Headaches: Yes Hiatal Hernia: No Heparin Induced Thrombocytopen: No Immune Disorder: No Implanted Vascular Access Dvce: Yes (RIGHT CHEST ) Insomnia: Yes Kidney Stones: Yes Musculoskeletal: No Neurologic: No Psychiatric: No Reproductive: No Respiratory: No Immunizations Current: Yes Migraines: No Pneumonia: Yes Radiation Therapy: No Renal Failure: No Seizures: No Sickle Cell Disease: Yes Sleep Apnea: No Thyroid Disease: No Ulcer: No Tetanus Vaccination: < 5 Years Influenza Vaccination: Yes PNEUMOCCOCAL Vaccine (Year): 2 ?: Not LMP: 09/27/17 : 1 Para: 1 Miscarriage: 1 : 0 Tubal Ligation: Yes Past Surgical History Abdominal Surgery: Yes AICD: No Arteriovenous Shunt: No Body Medical Devices: right chest port Cardiac Surgery: No Section: Yes (X 1) Cholecystectomy: Yes Ear Surgery: No Endocrine Surgery: No Eye Surgery: No Genitourinary Surgery: No Gynecologic Surgery: Yes (tubal ligation) Hysterectomy: No Insulin Pump: No Joint Replacement: No Oral Surgery: Yes Pacemaker: No Thoracic Surgery: Yes (CHEST PORT ) Tonsillectomy: Yes Other Surgery: Yes (right chest port) Social History Alcohol Use: No Tobacco Use: No Substance Use: No Allergies-Medications (Allergen,Severity, Reaction): Coded Allergies: morphine (Verified Allergy, Severe, RASH, 09/23/17) *MDRO Multi-Drug Resistant Organism (Verified Adverse Reaction, Unknown, MRSA, 09/23/17) MRSA (blood) - 12/18/2004 MRSA PCR screen NEGATIVE 08/27/16 & 09/21/16 Cleared per Infection Control Reported Meds & Prescriptions Reported Meds & Active Scripts Active Hydrocodone-Acetamin 10-325 mg (Hydrocodone/Acetaminophen) 10 Mg-325 Mg Tablet 1 Tab PO Q4H PRN Gnp Senna Plus 8.6-50 mg (Sennosides-Docusate Sodium) 8.6 Mg-50 Mg Tab 1 Tab PO BID Reported Hydrea (Hydroxyurea) 500 Mg Cap 500 Mg PO DAILY Folic Acid 0.4 Mg Tab 400 Mcg PO DAILY Review of Systems Except as stated in HPI: all other systems reviewed are Neg General / Constitutional: Positive: Fever Musculoskeletal: Positive: Myalgias (long bone pain typica;l of her crisis and pain crisis--> no URI no UTI sx) Physical Exam Narrative GENERAL: non toxic in no acute distress SKIN: Warm and dry. HEAD: Atraumatic. Normocephalic. EYES: Pupils equal and round. No scleral icterus. No injection or drainage. ENT: No nasal bleeding or discharge. Mucous membranes pink and moist. NECK: Trachea midline. No JVD. CARDIOVASCULAR: Regular rate and rhythm. RESPIRATORY: No accessory muscle use. Clear to auscultation. Breath sounds equal bilaterally. GASTROINTESTINAL: Abdomen soft, non-tender, nondistended. Hepatic and splenic margins not palpable. MUSCULOSKELETAL: Extremities--> long bone femur area pain bilateral NEUROLOGICAL: Awake and alert. No obvious cranial nerve deficits. Motor grossly within normal limits. Five out of 5 muscle strength in the arms and legs. Normal speech. PSYCHIATRIC: Appropriate mood and affect; insight and judgment normal. Data Data Last Documented VS Vital Signs Date Time Temp Pulse Resp B/P (MAP) Pulse Ox O2 Delivery O2 Flow Rate FiO2 09/27/17 06:40 99.4 97 16 144/84 (104) 96 Room Air Orders Orders Complete Blood Count With Diff (09/27/17 06:53) Comprehensive Metabolic Panel (09/27/17 06:53) Chest, Pa & Lat (09/27/17 06:53) Type And Screen (09/27/17 06:53) Retic Count (09/27/17 06:54) Urinalysis - C+S If Indicated (09/27/17 06:54) Sodium Chlor 0.9% 1000 Ml Inj (Ns 1000 M (09/27/17 07:00) Acetaminophen (Tylenol) (09/27/17 07:00) Hydromorphone Pf Inj (Dilaudid Pf Inj) (09/27/17 07:00) Diphenhydramine Inj (Benadryl Inj) (09/27/17 07:15) Sodium Chlor 0.9% 1000 Ml Inj (Ns 1000 M (09/27/17 09:00) Hydromorphone Pf Inj (Dilaudid Pf Inj) (09/27/17 10:00) Blood Culture (09/27/17 09:54) Piperacil-Tazo 4.5 Gm Premix (Zosyn 4.5 (09/27/17 09:54) Admit Order (Ed Use Only) (09/27/17 10:49) Labs Laboratory Tests Test 09/27/17 07:03 White Blood Count 16.5 TH/MM3 Red Blood Count 2.61 MIL/MM3 Hemoglobin 7.8 GM/DL Hematocrit 22.4 % Mean Corpuscular Volume 85.7 FL Mean Corpuscular Hemoglobin 29.8 PG Mean Corpuscular Hemoglobin Concent 34.8 % Red Cell Distribution Width 20.6 % Platelet Count 373 TH/MM3 Mean Platelet Volume 8.3 FL Neutrophils (%) (Auto) 61.2 % Lymphocytes (%) (Auto) 25.9 % Monocytes (%) (Auto) 11.5 % Eosinophils (%) (Auto) 0.6 % Basophils (%) (Auto) 0.8 % Neutrophils # (Auto) 10.1 TH/MM3 Lymphocytes # (Auto) 4.3 TH/MM3 Monocytes # (Auto) 1.9 TH/MM3 Eosinophils # (Auto) 0.1 TH/MM3 Basophils # (Auto) 0.1 TH/MM3 CBC Comment AUTO DIFF Differential Total Cells Counted 100 Neutrophils % (Manual) 69 % Lymphocytes % 20 % Monocytes % 10 % Eosinophils % 1 % Neutrophils # (Manual) 11.4 TH/MM3 Nucleated Red Blood Cells 3 /100 WBC Differential Comment FINAL DIFF MANUAL Platelet Estimate NORMAL Platelet Morphology Comment NORMAL Sickle Cells 2+ Target Cells 1+ Fields-Crosswicks Bodies PRESENT Reticulocyte Count 5.9 % Absolute Reticulocyte Count 153.6 MIL/L Blood Urea Nitrogen 11 MG/DL Creatinine 0.56 MG/DL Random Glucose 88 MG/DL Total Protein 8.6 GM/DL Albumin 3.4 GM/DL Calcium Level 8.6 MG/DL Alkaline Phosphatase 111 U/L Aspartate Amino Transf (AST/SGOT) 84 U/L Alanine Aminotransferase (ALT/SGPT) 26 U/L Total Bilirubin 3.0 MG/DL Sodium Level 135 MEQ/L Potassium Level 3.9 MEQ/L Chloride Level 102 MEQ/L Carbon Dioxide Level 24.4 MEQ/L Anion Gap 9 MEQ/L Estimat Glomerular Filtration Rate 151 ML/MIN [facility] Medical Decision Making Medical Screen Exam Complete: Yes Emergency Medical Condition: Yes Medical Record Reviewed: Yes Differential Diagnosis acute chest vs uti vs URI viral SCD crisis vs other Narrative Course IV fluid O2 nasal chest xray urine analysis and pain meds for pain and signed out to oncoming MD Diagnosis Primary Impression: Sickle cell pain crisis Additional Impression: Sickle cell disease Kirk Angeles MD September 27, 2017 06:36
[2017-09-27] MEDS ORDERED: HYDROmorphone HCL PF 2 MG/ML VIAL IV PUSH ONE ×2 (07:00→10:00)
[2017-09-27] MEDS ORDERED: SODIUM CHLOR 0.9% 1000 ML INJ 1,000 ML IV ONE ×2 (07:00→09:00)
[2017-09-27] MEDS ORDERED: ACETAMINOPHEN 325 MG TAB PO ONE (07:00)
[2017-09-27] MEDS ORDERED: diphenhydrAMINE HCL 50 MG/ML VIAL IV PUSH ONE (07:15)
--- NOTE | 2017-09-27 07:22 | RADRPT ---
EXAM DATE/TIME: 09/27/2017 07:05 [facility] COMPARISON: CHEST PA & LAT, September 17, 2017, 5:37. INDICATIONS : Fever and shortness of breath. MEDICAL HISTORY : Sickle Cell disease. SURGICAL HISTORY : None. ENCOUNTER: Initial ACUITY: 2 days PAIN SCORE: 0/10 LOCATION: chest FINDINGS: PA and lateral views of the chest demonstrate the lungs to be symmetrically aerated without evidence of mass, infiltrate or effusion. The cardiomediastinal contours are unremarkable. Osseous structure s are intact. The [id number] catheter tip in the distal superior vena cava. CONCLUSION: No acute cardiopulmonary disease. Marquis Redding MD on September 27, 2017 at 7:19 Board Certified Radiologist. This report was verified electronically.
[2017-09-27 07:28] LABS: AUTOMATED NEUTROPHIL # 10.1 TH/MM3 (1.8-7.7); BASOPHIL # 0.1 TH/MM3 (0-0.2); BASOPHIL % 0.8 % (0.0-2.0); EOSINOPHIL # 0.1 TH/MM3 (0-0.4); EOSINOPHIL % 0.6 % (0.0-4.0); HEMATOCRIT 22.4 % (35.0-46.0); HEMOGLOBIN 7.8 GM/DL (11.6-15.3); LYMPH % 25.9 % (9.0-44.0); LYMPHOCYTE # 4.3 TH/MM3 (1.0-4.8); MEAN CELL VOLUME 85.7 FL (80.0-100.0); MEAN CORPUSCULAR HEMOGLOBIN 29.8 PG (27.0-34.0); MEAN CORPUSCULAR HGB CONC 34.8 % (32.0-36.0); MEAN PLATELET VOLUME 8.3 FL (7.0-11.0); MONO % 11.5 % (0.0-8.0); MONOCYTE # 1.9 TH/MM3 (0-0.9); NEUT % 61.2 % (16.0-70.0); PLATELET COUNT 373 TH/MM3 (150-450); RED BLOOD COUNT 2.61 MIL/MM3 (4.00-5.30); RED CELL DISTRIBUTION WIDTH 20.6 % (11.6-17.2); WHITE BLOOD COUNT 16.5 TH/MM3 (4.0-11.0)
[2017-09-27 07:30] LABS: RETIC # 153.6 MIL/L (20.0-150.0); RETIC % 5.9 % (0.4-3.0)
[2017-09-27 08:00] LABS: ALBUMIN 3.4 GM/DL (3.4-5.0); ALT (GPT) 26 U/L (10-53); AST (GOT) 84 U/L (15-37); BICARBONATE 24.4 MEQ/L (21.0-32.0); BLOOD UREA NITROGEN 11 MG/DL (7-18); CALCIUM 8.6 MG/DL (8.5-10.1); CHLORIDE 102 MEQ/L (98-107); CREATININE 0.56 MG/DL (0.50-1.00); GLOMERULAR FILTRATION RATE 151 ML/MIN (>89); GLUCOSE,RANDOM 88 MG/DL (74-106); SODIUM (NA) 135 MEQ/L (136-145)
[2017-09-27 08:02] LABS: ALKALINE PHOSPHATASE 111 U/L (45-117); CORRECTED NUCLEATED RBC 3 /100 WBC (0-0); LYMPHOCYTES 20 % (9-44); MONOCYTES 10 % (0-8); NEUTROPHIL # MANUAL DIFF 11.4 TH/MM3 (1.8-7.7); NUCLEATED RED BLOOD CELL 3 (0-0); POLYS (SEG NEUTROPHILS) 69 % (16-70); TOTAL PROTEIN 8.6 GM/DL (6.4-8.2)
[2017-09-27 08:03] LABS: HOWELL-JOLLY BODIES PRESENT (NONE SEEN); SICKLE CELLS 2+ (NORMAL)
[2017-09-27 08:04] LABS: TARGET CELLS 1+ (NORMAL)
[2017-09-27] MEDS ORDERED: PIPERACIL-TAZO 4.5 GM PREMIX 100 ML IV STA (09:54)
--- NOTE | 2017-09-27 10:59 | HHI.HP ---
HPI Service [facility] Primary Care Physician No Primary Care Physician Admission Diagnosis Sepsis/sickle cell crisis Diagnoses: Travel History International Travel<30 Days: No Contact w/Intl Traveler <30 Da: No Traveled to Known Affected Are: No Sepsis Criteria SIRS Criteria (2 or more): Heart rate over 90, WBC > 13321, < 4000 or > 10% bands History of Present Illness 31 year old female with sickle cell anemia presenting to the ER with diffuse pain, fever, and chills for the past two days. She was seen in the ER about six days ago for pain crisis and felt better for a couple days prior to her pain flaring up again. She saw her contact center team lead, Dr. Rivas, yesterday, and at that visit her temperature was 100.8 and her hemoglobin was reportedly 7.4. He advised her to go to the ER if she continued to feel bad and have fever. She pushed oral fluids and took Tylenol at home but just wasn't feeling any better so she came in for further evaluation. At home her highest temperature was 101 yesterday. She denies chest pain, cough, rhinorrhea, sore throat, ear pain, congestion, abdominal pain, open wounds, dysuria, or urgency. She endorses pain in her arms, back, and legs. She takes Lortab 10 mg at home but states that it has not been helping during this crisis. She endorses feeling very weak. She was recently admitted 08/20-08/23 for sickle cell crisis and treated with fluids and analgesics. She has since returned to the ER six times since discharge. Review of Systems Constitutional: COMPLAINS OF: Fever, Chills, DENIES: Fatigue, Change in appetite Eyes: DENIES: Blurred vision Ears, nose, mouth, throat: DENIES: Nasal discharge, Running Nose, Sinus Pain Respiratory: DENIES: Cough, Shortness of breath Cardiovascular: DENIES: Chest pain, Palpitations Gastrointestinal: DENIES: Abdominal pain, Diarrhea, Nausea, Vomiting Genitourinary: DENIES: Urgency, Hematuria, Dysuria Musculoskeletal: COMPLAINS OF: Joint pain, Back pain Integumentary: DENIES: Rash Neurologic: DENIES: Headache, Seizures Psychiatric: DENIES: Depression Past Family Social History Past Medical History Sickle cell anemia E. coli bacteremia September 2016 Past Surgical History Tubal ligation Port placement 2006 Cholecystectomy 1995 Reported Medications Hydrocodone-Acetamin 10-325 mg (Hydrocodone/Acetaminophen) 10 Mg-325 Mg Tablet 1 Tab PO Q4H PRN Gnp Senna Plus 8.6-50 mg (Sennosides-Docusate Sodium) 8.6 Mg-50 Mg Tab 1 Tab PO BID Hydrea (Hydroxyurea) 500 Mg Cap 500 Mg PO DAILY Folic Acid 0.4 Mg Tab 400 Mcg PO DAILY Allergies: Coded Allergies: morphine (Verified Allergy, Severe, RASH, 09/23/17) *MDRO Multi-Drug Resistant Organism (Verified Adverse Reaction, Unknown, MRSA, 09/23/17) MRSA (blood) - 12/18/2004 MRSA PCR screen NEGATIVE 08/27/16 & 09/21/16 Cleared per Infection Control Active Ordered Medications Acetaminophen (Tylenol) 650 mg ONCE ONCE PO Last administered on 09/27/17at 07: 17; Admin Dose 650 MG; Start 09/27/17 at 07:00; Stop 09/27/17 at 07:01; Status DC Acetaminophen (Tylenol) 650 mg Q4H PRN PO; Start 09/27/17 at 11:30 Albuterol Sulfate (Albuterol Neb) 2.5 mg Q2HR NEB PRN INH; Start 09/27/17 at 11 :30 Diphenhydramine HCl (Benadryl Inj) 25 mg ONCE ONCE IV PUSH Last administered on 09/27/17at 07:17; Admin Dose 25 MG; Start 09/27/17 at 07:15; Stop 09/27/17 at 07:16; Status DC Docusate Sodium (Colace) 100 mg BID PO; Start 09/27/17 at 21:00 Enoxaparin Sodium (Lovenox Inj) 40 mg Q24H SQ; Start 09/27/17 at 12:00 Folic Acid (Folate) 1 mg DAILY PO; Start 09/28/17 at 09:00 Hydromorphone HCl (Dilaudid Pf Inj) 1 mg ONCE ONCE IV PUSH Last administered on 09/27/17at 07:17; Admin Dose 1 MG; Start 09/27/17 at 07:00; Stop 09/27/17 at 07:01; Status DC Hydromorphone HCl (Dilaudid Pf Inj) 1 mg ONCE ONCE IV PUSH Last administered on 09/27/17at 10:05; Admin Dose 1 MG; Start 09/27/17 at 10:00; Stop 09/27/17 at 10:01; Status DC Hydromorphone HCl (Dilaudid Pf Inj) 1 mg Q4H PRN IV PUSH; Start 09/27/17 at 11: 30 Hydromorphone HCl (Dilaudid Pf Inj) 2 mg Q4H PRN IV PUSH; Start 09/27/17 at 11: 30 Multivitamins (Theragran) 1 tab DAILY PO; Start 09/28/17 at 09:00 Ondansetron HCl (Zofran Odt) 4 mg Q6H PRN PO; Start 09/27/17 at 11:30 Piperacillin Sod/ Tazobactam Sod 100 ml @ 200 mls/hr ONCE STAT IV Last administered on 09/27/17at 10:05; Admin Dose 200 MLS/HR; Start 09/27/17 at 09:54 ; Stop 09/27/17 at 10:23; Status DC Sodium Chloride 1,000 ml @ 125 mls/hr Q8H IV; Start 09/27/17 at 11:24 Sodium Chloride 1,000 ml @ 999 mls/hr BOLUS ONCE IV Last administered on at 07:17; Admin Dose 999 MLS/HR; Start 09/27/17 at 07:00; Stop 09/27/17 at 08: 00; Status DC Sodium Chloride 1,000 ml @ 999 mls/hr BOLUS ONCE IV Last administered on at 09:05; Admin Dose 999 MLS/HR; Start 09/27/17 at 09:00; Stop 09/27/17 at 10: 00; Status DC Sodium Chloride (NS Flush) 2 ml BID IV FLUSH; Start 09/27/17 at 21:00 Sodium Chloride (NS Flush) 2 ml UNSCH PRN IV FLUSH; Start 09/27/17 at 11:30 Family History Sister with sickle cell anemia No family history of diabetes or heart disease Social History Lives with son Going to school Denies EtOH, tobacco, illicit drugs Physical Exam Vital Signs Vital Signs Date Time Temp Pulse Resp B/P (MAP) Pulse Ox O2 Delivery O2 Flow Rate FiO2 09/27/17 06:40 99.4 97 16 144/84 (104) 96 Room Air 09/27/17 03:34 100.4 113 18 111/67 (82) 95 Room Air Physical Exam GENERAL: This is a well-nourished, well-developed patient, in no apparent distress. SKIN: No rashes, ecchymoses or lesions. Cool and dry. HEENT: Atraumatic. Normocephalic. No temporal or scalp tenderness. Pupils equal round and reactive. Extraocular motions intact. No scleral icterus. No injection or drainage. Nose without bleeding, purulent drainage or septal hematoma. Throat without erythema, tonsillar hypertrophy or exudate. Uvula midline. Airway patent. NECK: Trachea midline. No JVD or lymphadenopathy. Supple, nontender, no meningeal signs. CARDIOVASCULAR: Regular rate and rhythm without murmurs, gallops, or rubs. RESPIRATORY: Clear to auscultation. Breath sounds equal bilaterally. No wheezes , rales, or rhonchi. GASTROINTESTINAL: Abdomen soft, non-tender, nondistended. No hepato-splenomegaly , or palpable masses. No guarding. MUSCULOSKELETAL: Extremities without clubbing, cyanosis, or edema. No joint tenderness, effusion, or edema noted. No calf tenderness. Negative Homans sign bilaterally. NEUROLOGICAL: Awake and alert. Cranial nerves II through XII intact. Motor and sensory grossly within normal limits. Five out of 5 muscle strength in all muscle groups. Normal speech. Laboratory Laboratory Tests Test 09/27/17 07:03 White Blood Count 16.5 Red Blood Count 2.61 Hemoglobin 7.8 Hematocrit 22.4 Mean Corpuscular Volume 85.7 Mean Corpuscular Hemoglobin 29.8 Mean Corpuscular Hemoglobin Concent 34.8 Red Cell Distribution Width 20.6 Platelet Count 373 Mean Platelet Volume 8.3 Neutrophils (%) (Auto) 61.2 Lymphocytes (%) (Auto) 25.9 Monocytes (%) (Auto) 11.5 Eosinophils (%) (Auto) 0.6 Basophils (%) (Auto) 0.8 Neutrophils # (Auto) 10.1 Lymphocytes # (Auto) 4.3 Monocytes # (Auto) 1.9 Eosinophils # (Auto) 0.1 Basophils # (Auto) 0.1 CBC Comment AUTO DIFF Differential Total Cells Counted 100 Neutrophils % (Manual) 69 Lymphocytes % 20 Monocytes % 10 Eosinophils % 1 Neutrophils # (Manual) 11.4 Nucleated Red Blood Cells 3 Differential Comment FINAL DIFF MANUAL Platelet Estimate NORMAL Platelet Morphology Comment NORMAL Sickle Cells 2+ Target Cells 1+ Fields-Dexter Bodies PRESENT Reticulocyte Count 5.9 Absolute Reticulocyte Count 153.6 Blood Urea Nitrogen 11 Creatinine 0.56 Random Glucose 88 Total Protein 8.6 Albumin 3.4 Calcium Level 8.6 Alkaline Phosphatase 111 Aspartate Amino Transf (AST/SGOT) 84 Alanine Aminotransferase (ALT/SGPT) 26 Total Bilirubin 3.0 Sodium Level 135 Potassium Level 3.9 Chloride Level 102 Carbon Dioxide Level 24.4 Anion Gap 9 Estimat Glomerular Filtration Rate 151 Date/Time Source Procedure Growth Status 09/27/17 09:55 Blood Peripheral Aerobic Blood Culture Pending Received 09/27/17 09:55 Blood Peripheral Anaerobic Blood Culture Pending Received Result Diagram: 09/27/17 0703 09/27/17 0703 Imaging Chest X-Ray 09/27/17 0653 Signed Impressions: Service Date/Time: Wednesday, September 27, 2017 07:05 - CONCLUSION: No acute cardiopulmonary disease. Marquis Redding MD [place] VTE Risk Assessment Caprini VTE Risk Assessment: Mod/High Risk (score >= 2) Caprini Risk Assessment Model Point Value = 1 Point Value = 2 Point Value = 3 Point Value = 5 Age 41-60 Minor surgery BMI > 25 kg/m2 Swollen legs Varicose veins or History of unexplained or recurrent spontaneous Oral contraceptives or hormone replacement Sepsis (< 1 month) Serious lung disease, including pneumonia (< 1 month) Abnormal pulmonary function Acute myocardial infarction Congestive heart failure (< 1 month) History of inflammatory bowel disease Medical patient at bed rest Age 61-74 Arthroscopic surgery Major open surgery (> 45 min) Laparoscopic surgery (> 45 min) Malignancy Confined to bed (> 72 hours) Immobilizing plaster cast Central venous access Age >= 75 History of VTE Family history of VTE Factor V Leiden Prothrombin [id number] Lupus anticoagulant Anticardiolipin antibodies Elevated serum homocysteine Heparin-induced thrombocytopenia Other congenital or acquired thrombophilia Stroke (< 1 month) Elective arthroplasty Hip, pelvis, or leg fracture Acute spinal cord injury (< 1 month) Prophylaxis Regimen Total Risk Factor Score Risk Level Prophylaxis Regimen 0-1 Low Early ambulation 2 Moderate Order ONE of the following: *Sequential Compression Device (SCD) *Heparin 5000 units SQ BID 3-4 Higher Order ONE of the following medications: *Heparin 5000 units SQ TID *Enoxaparin/Lovenox 40 mg SQ daily (WT < 150 kg, CrCl > 30 mL/min) *Enoxaparin/Lovenox 30 mg SQ daily (WT < 150 kg, CrCl > 10-29 mL/min) *Enoxaparin/Lovenox 30 mg SQ BID (WT < 150 kg, CrCl > 30 mL/min) AND/OR *Sequential Compression Device (SCD) 5 or more Highest Order ONE of the following medications: *Heparin 5000 units SQ TID (Preferred with Epidurals) *Enoxaparin/Lovenox 40 mg SQ daily (WT < 150 kg, CrCl > 30 mL/min) *Enoxaparin/Lovenox 30 mg SQ daily (WT < 150 kg, CrCl > 10-29 mL/min) *Enoxaparin/Lovenox 30 mg SQ BID (WT < 150 kg, CrCl > 30 mL/min) AND *Sequential Compression Device (SCD) Assessment and Plan Assessment and Plan 31 year old female with sickle cell anemia admitted for acute vasoocclusive crisis. 1. Sickle cell with vasoocclusive crisis - Hb 7.8, retic count elevated - Last admission she was transfused 1 unit PRBC for a hemoglobin of 6.8 and was discharged with hemoglobin 9.1 on 08/23 - Monitor CBC, caution with transfusions given risk of iron overload - Pain control with IV Dilaudid - IV Benadryl PRN itching - NS at 125 ml/hr - No signs of acute chest (neg CXR, no hypoxia, no cough) 2. SIRS - Leukocytosis 16.5 with temperature 100.4 and HR >90 - CXR negative and clinically there are no signs of infection - U/A ordered but patient has been unable to provide sample yet - Blood cultures drawn - IV Zosyn began empirically in the ED, will continue - Check lactic acid - Monitor temps - Tylenol PRN fever 3. Sickle cell anemia - Continue daily folic acid - Continue home hydroxyurea 4. Elevated AST - Chronically elevated for years per EMR - Hepatitis panel negative in the past - Monitor - Can further be followed as OP DVT prophylaxis: Lovenox Code Status FULL Discussed Condition With The patient Physician Certification 2 Midnight Certification Type: Admission for Inpatient Services Order for Inpatient Services The services are ordered in accordance with Medicare regulations or non- Medicare payer requirements, as applicable. In the case of services not specified as inpatient-only, they are appropriately provided as inpatient services in accordance with the 2-midnight benchmark. Estimated LOS (days): 2 2 days is the estimated time the patient will need to remain in the hospital, assuming treatment plan goals are met and no additional complications. Post-Hospital Plan: Home Mignon Saini MD September 27, 2017 10:59
--- NOTE | 2017-09-27 11:13 | PD ---
Physical Exam Date Seen by Provider: September 27, 2017 Time Seen by Provider: 07:00 Narrative Patient is signed out to me by Dr. Angeles at 7 AM, please see his notes for further details. She is here because of sickle cell crisis, running fevers, and initial workup has been started. Lab work shows leukocytosis and she is febrile in the ER, Tylenol has been given. Chest x-ray did not show an obvious source, and patient was given several boluses of IV fluids and pain medications , but was unable to give me a urine, at this point, I had waited several hours and I gave her IV antibiotics after cultures of the blood have been done. Considering her history and renal compromise, my plan would be to admit her for further treatment of sepsis. Case was discussed with Dr. Lal for admission. Laboratory Tests Test 09/27/17 07:03 White Blood Count 16.5 TH/MM3 (4.0-11.0) Red Blood Count 2.61 MIL/MM3 (4.00-5.30) Hemoglobin 7.8 GM/DL (11.6-15.3) Hematocrit 22.4 % (35.0-46.0) Red Cell Distribution Width 20.6 % (11.6-17.2) Monocytes (%) (Auto) 11.5 % (0.0-8.0) Neutrophils # (Auto) 10.1 TH/MM3 (1.8-7.7) Monocytes # (Auto) 1.9 TH/MM3 (0-0.9) Monocytes % 10 % (0-8) Neutrophils # (Manual) 11.4 TH/MM3 (1.8-7.7) Nucleated Red Blood Cells 3 /100 WBC (0-0) Sickle Cells 2+ (NORMAL) Target Cells 1+ (NORMAL) Reticulocyte Count 5.9 % (0.4-3.0) Absolute Reticulocyte Count 153.6 MIL/L (20.0-150.0) Total Protein 8.6 GM/DL (6.4-8.2) Aspartate Amino Transf (AST/SGOT) 84 U/L (15-37) Total Bilirubin 3.0 MG/DL (0.2-1.0) Sodium Level 135 MEQ/L (136-145) Last 24 hours Impressions Chest X-Ray 09/27/17 0653 Signed Impressions: Service Date/Time: Wednesday, September 27, 2017 07:05 - CONCLUSION: No acute cardiopulmonary disease. Marquis Redding MD Data Data Last Documented VS Vital Signs Date Time Temp Pulse Resp B/P (MAP) Pulse Ox O2 Delivery O2 Flow Rate FiO2 09/27/17 06:40 99.4 97 16 144/84 (104) 96 Room Air Orders Orders Complete Blood Count With Diff (09/27/17 06:53) Comprehensive Metabolic Panel (09/27/17 06:53) Chest, Pa & Lat (09/27/17 06:53) Type And Screen (09/27/17 06:53) Retic Count (09/27/17 06:54) Urinalysis - C+S If Indicated (09/27/17 06:54) Sodium Chlor 0.9% 1000 Ml Inj (Ns 1000 M (09/27/17 07:00) Acetaminophen (Tylenol) (09/27/17 07:00) Hydromorphone Pf Inj (Dilaudid Pf Inj) (09/27/17 07:00) Diphenhydramine Inj (Benadryl Inj) (09/27/17 07:15) Sodium Chlor 0.9% 1000 Ml Inj (Ns 1000 M (09/27/17 09:00) Hydromorphone Pf Inj (Dilaudid Pf Inj) (09/27/17 10:00) Blood Culture (09/27/17 09:54) Piperacil-Tazo 4.5 Gm Premix (Zosyn 4.5 (09/27/17 09:54) Admit Order (Ed Use Only) (09/27/17 10:49) Labs Laboratory Tests Test 09/27/17 07:03 White Blood Count 16.5 TH/MM3 Red Blood Count 2.61 MIL/MM3 Hemoglobin 7.8 GM/DL Hematocrit 22.4 % Mean Corpuscular Volume 85.7 FL Mean Corpuscular Hemoglobin 29.8 PG Mean Corpuscular Hemoglobin Concent 34.8 % Red Cell Distribution Width 20.6 % Platelet Count 373 TH/MM3 Mean Platelet Volume 8.3 FL Neutrophils (%) (Auto) 61.2 % Lymphocytes (%) (Auto) 25.9 % Monocytes (%) (Auto) 11.5 % Eosinophils (%) (Auto) 0.6 % Basophils (%) (Auto) 0.8 % Neutrophils # (Auto) 10.1 TH/MM3 Lymphocytes # (Auto) 4.3 TH/MM3 Monocytes # (Auto) 1.9 TH/MM3 Eosinophils # (Auto) 0.1 TH/MM3 Basophils # (Auto) 0.1 TH/MM3 CBC Comment AUTO DIFF Differential Total Cells Counted 100 Neutrophils % (Manual) 69 % Lymphocytes % 20 % Monocytes % 10 % Eosinophils % 1 % Neutrophils # (Manual) 11.4 TH/MM3 Nucleated Red Blood Cells 3 /100 WBC Differential Comment FINAL DIFF MANUAL Platelet Estimate NORMAL Platelet Morphology Comment NORMAL Sickle Cells 2+ Target Cells 1+ [place] Bodies PRESENT Reticulocyte Count 5.9 % Absolute Reticulocyte Count 153.6 MIL/L Blood Urea Nitrogen 11 MG/DL Creatinine 0.56 MG/DL Random Glucose 88 MG/DL Total Protein 8.6 GM/DL Albumin 3.4 GM/DL Calcium Level 8.6 MG/DL Alkaline Phosphatase 111 U/L Aspartate Amino Transf (AST/SGOT) 84 U/L Alanine Aminotransferase (ALT/SGPT) 26 U/L Total Bilirubin 3.0 MG/DL Sodium Level 135 MEQ/L Potassium Level 3.9 MEQ/L Chloride Level 102 MEQ/L Carbon Dioxide Level 24.4 MEQ/L Anion Gap 9 MEQ/L Estimat Glomerular Filtration Rate 151 ML/MIN MDM Medical Record Reviewed: Yes Supervised Visit with KYE: No Diagnosis Primary Impression: Anemia, sickle cell with crisis Additional Impression: Sepsis Admitting Information Admitting Physician Requests: Admit Diallo Kiran MD September 27, 2017 11:13
[2017-09-27] MEDS ORDERED: SODIUM CHLORIDE 0.9% FLUSH 10 ML FLUSH IV FLUSH PRN (11:30)
[2017-09-27] MEDS ORDERED: ONDANSETRON ODT 4 MG TAB PO PRN (11:30)
[2017-09-27] MEDS ORDERED: ACETAMINOPHEN 325 MG TAB PO PRN (11:30)
[2017-09-27] MEDS ORDERED: RESP: ALBUTEROL 2.5 MG/3 ML NEB (PRN) INH (11:30)
[2017-09-27] MEDS: SODIUM CHLOR 0.9% 1000 ML INJ 1,000 ML IV SCH ×2 (12:04→22:10)
[2017-09-27] MEDS: ENOXAPARIN SODIUM 40 MG/0.4 ML SYRINGE SQ SCH (12:04)
[2017-09-27 12:36] LABS: GLUCOSE,URINE NEG (NEG); KETONE, URINE NEG (NEG); URINE COLOR YELLOW (YELLW/STRAW)
[2017-09-27 12:37] LABS: BILIRUBIN, URINE NEGATIVE (NEG); BLOOD, URINE MOD (NEG); NITRITE,URINE POS (NEG); SQUAMOUS EPITHELIAL CELL URINE 3 /hpf (0-5); URINE LEUKOCYTE ESTERASE MOD (NEG)
[2017-09-27 12:38] LABS: BACTERIA, URINE MOD /hpf
[2017-09-27] MEDS: diphenhydrAMINE HCL 50 MG/ML VIAL IV PUSH PRN ×3 (13:54→22:02)
[2017-09-27] MEDS: HYDROmorphone HCL PF 2 MG/ML VIAL IV PUSH PRN ×3 (13:54→22:01)
[2017-09-27] MEDS: PIPERACIL-TAZO 4.5 GM PREMIX 100 ML IV SCH (17:21)
[2017-09-27] MEDS: SODIUM CHLORIDE 0.9% FLUSH 10 ML FLUSH IV FLUSH SCH (22:03)
[2017-09-27] MEDS: DOCUSATE SODIUM 100 MG CAP PO SCH (22:22)
[2017-09-28] VITALS (14 sets, daily range): BP systolic 90–102; BP diastolic 56–70; PULSE 72–95; RESP 16–20; TEMP 97.9–99.2; O2SAT 97–100
[2017-09-28] MEDS: HYDROmorphone HCL PF 2 MG/ML VIAL IV PUSH PRN ×3 (02:10→22:14)
[2017-09-28] MEDS: diphenhydrAMINE HCL 50 MG/ML VIAL IV PUSH PRN ×6 (02:10→22:14)
[2017-09-28] MEDS: PIPERACIL-TAZO 4.5 GM PREMIX 100 ML IV SCH (03:04)
[2017-09-28] MEDS: SODIUM CHLOR 0.9% 1000 ML INJ 1,000 ML IV SCH ×3 (06:13→18:48)
[2017-09-28 07:38] LABS: BASOPHIL # 0.1 TH/MM3 (0-0.2); BASOPHIL % 0.6 % (0.0-2.0); EOSINOPHIL # 0.5 TH/MM3 (0-0.4); EOSINOPHIL % 4.1 % (0.0-4.0); LYMPH % 32.5 % (9.0-44.0); LYMPHOCYTE # 3.7 TH/MM3 (1.0-4.8); MEAN CELL VOLUME 85.4 FL (80.0-100.0); MEAN CORPUSCULAR HEMOGLOBIN 30.5 PG (27.0-34.0); MEAN CORPUSCULAR HGB CONC 35.7 % (32.0-36.0); MEAN PLATELET VOLUME 8.4 FL (7.0-11.0); MONO % 9.7 % (0.0-8.0); MONOCYTE # 1.1 TH/MM3 (0-0.9); NEUT % 53.1 % (16.0-70.0); PLATELET COUNT 377 TH/MM3 (150-450); RED BLOOD COUNT 1.99 MIL/MM3 (4.00-5.30); WHITE BLOOD COUNT 11.3 TH/MM3 (4.0-11.0)
[2017-09-28 07:39] LABS: ALBUMIN 2.8 GM/DL (3.4-5.0); ALKALINE PHOSPHATASE 99 U/L (45-117); ALT (GPT) 22 U/L (10-53); AST (GOT) 64 U/L (15-37); BLOOD UREA NITROGEN 4 MG/DL (7-18); CALCIUM 7.9 MG/DL (8.5-10.1); CHLORIDE 109 MEQ/L (98-107); CREATININE 0.44 MG/DL (0.50-1.00); GLOMERULAR FILTRATION RATE 199 ML/MIN (>89); GLUCOSE,RANDOM 82 MG/DL (74-106); SODIUM (NA) 140 MEQ/L (136-145); TOTAL BILIRUBIN ADULT 2.1 MG/DL (0.2-1.0); TOTAL PROTEIN 7.1 GM/DL (6.4-8.2)
[2017-09-28 07:59] LABS: HEMOGLOBIN 6.1 GM/DL (11.6-15.3)
--- NOTE | 2017-09-28 08:09 | HHI.PR ---
Subjective Remarks Pt seen and examined in f/u for sickle cell crisis and UTI with sepsis. AFVSS. No acute events overnight. Continues to complain of 8/10 over arms, back, and legs. She flinches when I touch her arms. She denies CP, SOB, fever, chills, dysuria, or abdominal pain. Tolerating PO. AMbulating. Objective Vitals Vital Signs Date Time Temp Pulse Resp B/P (MAP) Pulse Ox O2 Delivery O2 Flow Rate FiO2 09/28/17 06:05 99.2 87 18 98/60 (73) 99 09/28/17 05:30 77 09/28/17 02:07 98.5 85 18 98/60 (73) 100 09/27/17 22:01 18 100/60 (73) 09/27/17 22:00 80 09/27/17 20:00 98.1 81 18 96 09/27/17 18:00 94/58 (70) 09/27/17 17:22 96/58 (71) 09/27/17 17:00 95 21 09/27/17 16:55 98.3 82 18 89/51 (64) 98 09/27/17 16:00 82 09/27/17 12:00 98.8 82 18 103/65 (78) 96 09/27/17 11:45 09/27/17 11:44 81 16 134/76 (95) 97 Room Air I/O 09/27/17 09/27/17 09/27/17 09/28/17 09/28/17 09/28/17 07:00 15:00 23:00 07:00 15:00 23:00 Intake Total 2100 ml 100 ml Balance 2100 ml 100 ml Intake IV Total 2100 ml 100 ml # Voids 1 Result Diagram: 09/28/17 0605 09/28/17 0605 Imaging Chest X-Ray 09/27/17 0653 Signed Impressions: Service Date/Time: Wednesday, September 27, 2017 07:05 - CONCLUSION: No acute cardiopulmonary disease. Marquis Redding MD Objective Remarks GENERAL: WN, WD AA female resting in bed in NAD. SKIN: Warm and dry. HEENT: AT/NC. Pupils equal and round. +Scleral icterus. MMM. NECK: Supple no tender LAD or JVD. HEART: RRR w/ 1/6 ADELINE. LUNGS: CTAB without wheezes or crackles. ABDOMEN: +BS, soft, NT, ND. EXTREMITIES: No LE edema. 2+ pedal pulses. NEURO: Awake and alert. Nonfocal. PSYCH: Appropriate mood and affect. A/P Problem List: (1) Sepsis ICD Code: A41.9 - Sepsis, unspecified organism Status: Resolved (2) Sickle cell pain crisis ICD Code: D57.00 - Hb-SS disease with crisis, unspecified Status: Acute (3) UTI (urinary tract infection) ICD Code: N39.0 - Urinary tract infection, site not specified Assessment and Plan 31 year old female with sickle cell anemia admitted for acute vasoocclusive crisis. 1. Sickle cell with vasoocclusive crisis - Hb 7.8 with elevated retic count on admission - Hb down to 6.1, will transfuse 1 unit - Monitor CBC, caution with transfusions given risk of iron overload - Pain control with IV Dilaudid. Counseled patient that we have to be careful with her low BPs - IV Benadryl PRN itching - NS at 125 ml/hr - No signs of acute chest (neg CXR, no hypoxia, no cough) 2. UTI/sepsis - Sepsis component resolved --> patient afebrile, tachycardia resolved, and WBC down to 11.3 from 16.5 - Lactic acid WNL - U/A with + nitrites and LE - Urine culture pending - Blood cultures pending - IV Zosyn began empirically prior to U/A results, will discontinue and change to Rocephin until cultures finalize - Monitor temps - Tylenol PRN fever 3. Sickle cell anemia - Continue daily folic acid - Continue home hydroxyurea 4. Elevated AST - Chronically elevated for years per EMR - Hepatitis panel negative in the past - Monitor - Can further be followed as OP DVT prophylaxis: Lovenox Discharge Planning Anticipate D/C in a couple days Mignon Saini MD September 28, 2017 08:09
[2017-09-28] MEDS: MULTIVITAMIN TAB PO SCH (08:49)
[2017-09-28] MEDS: cefTRIAXone INJ 1,000 MG in SODIUM CHLORIDE 0.9% INJ 100 ML IV SCH (08:49)
[2017-09-28] MEDS: FOLIC ACID 1 MG TAB PO SCH (08:49)
[2017-09-28] MEDS: HYDROXYUREA 500 MG CAP PO SCH (08:50)
[2017-09-28] MEDS: SODIUM CHLORIDE 0.9% FLUSH 10 ML FLUSH IV FLUSH SCH ×2 (08:51→22:14)
[2017-09-28] MEDS: DOCUSATE SODIUM 100 MG CAP PO SCH ×2 (08:51→22:03)
[2017-09-28] MEDS: HYDROmorphone HCL PF 0.5 MG/0.5 ML SYRINGE IV PUSH PRN ×3 (10:07→18:15)
[2017-09-28] MEDS: ENOXAPARIN SODIUM 40 MG/0.4 ML SYRINGE SQ SCH (11:15)
[2017-09-28 11:25] LABS: CORRECTED NUCLEATED RBC 3 /100 WBC (0-0); LYMPHOCYTES 34 % (9-44); MONOCYTES 7 % (0-8); NEUTROPHIL # MANUAL DIFF 6.3 TH/MM3 (1.8-7.7); NUCLEATED RED BLOOD CELL 3 (0-0); POLYS (SEG NEUTROPHILS) 56 % (16-70)
[2017-09-28 11:26] LABS: HOWELL-JOLLY BODIES PRESENT (NONE SEEN); SICKLE CELLS 3+ (NORMAL)
[2017-09-28 11:28] LABS: KERATOCYTES OCC (NORMAL)
[2017-09-29] VITALS (8 sets, daily range): BP systolic 100–113; BP diastolic 60–72; PULSE 70–88; RESP 14–18; TEMP 97.8–99.3; O2SAT 98–100
[2017-09-29] MEDS: HYDROmorphone HCL PF 2 MG/ML VIAL IV PUSH PRN ×3 (01:45→09:21)
[2017-09-29] MEDS: diphenhydrAMINE HCL 50 MG/ML VIAL IV PUSH PRN ×6 (01:46→22:22)
[2017-09-29] MEDS: SODIUM CHLOR 0.9% 1000 ML INJ 1,000 ML IV SCH ×3 (05:36→21:32)
[2017-09-29 06:28] LABS: AUTOMATED NEUTROPHIL # 4.3 TH/MM3 (1.8-7.7); BASOPHIL # 0.1 TH/MM3 (0-0.2); BASOPHIL % 0.5 % (0.0-2.0); EOSINOPHIL # 0.6 TH/MM3 (0-0.4); EOSINOPHIL % 6.1 % (0.0-4.0); HEMOGLOBIN 7.2 GM/DL (11.6-15.3); LYMPH % 42.9 % (9.0-44.0); LYMPHOCYTE # 4.5 TH/MM3 (1.0-4.8); MEAN CORPUSCULAR HGB CONC 35.3 % (32.0-36.0); MEAN PLATELET VOLUME 8.4 FL (7.0-11.0); MONO % 9.3 % (0.0-8.0); NEUT % 41.2 % (16.0-70.0); PLATELET COUNT 446 TH/MM3 (150-450); RED BLOOD COUNT 2.41 MIL/MM3 (4.00-5.30); RED CELL DISTRIBUTION WIDTH 18.9 % (11.6-17.2); WHITE BLOOD COUNT 10.4 TH/MM3 (4.0-11.0)
[2017-09-29 06:36] LABS: HEMATOCRIT 20.5 % (35.0-46.0)
[2017-09-29 08:03] LABS: BANDS 2 % (0-6); BASOPHILS 1 % (0-2); CORRECTED NUCLEATED RBC 7 /100 WBC (0-0); LYMPHOCYTES 36 % (9-44); MONOCYTES 11 % (0-8); NEUTROPHIL # MANUAL DIFF 4.9 TH/MM3 (1.8-7.7); NUCLEATED RED BLOOD CELL 7 (0-0); POLYS (SEG NEUTROPHILS) 45 % (16-70); SICKLE CELLS 2+ (NORMAL); TARGET CELLS 1+ (NORMAL)
--- NOTE | 2017-09-29 08:45 | HHI.PR ---
Subjective Remarks Pt seen and examined this morning for f/u sickle cell pain crisis and UTI. AFVSS. No acute events overnight. Transfused 1 unit yesterday. States she is feeling overall better but still endorsing pain in arms, legs, and back. Doesn' t feel ready to go home. No urine symptoms. Denies CP, SOB, cough, fever, chills. Objective Vitals Vital Signs Date Time Temp Pulse Resp B/P (MAP) Pulse Ox O2 Delivery O2 Flow Rate FiO2 09/29/17 05:27 98.8 84 18 102/60 (74) 98 09/29/17 03:22 70 09/29/17 01:39 98.7 81 18 100/68 (79) 100 09/28/17 22:20 81 09/28/17 22:12 97.9 86 18 100/70 (80) 98 09/28/17 18:05 98.6 83 16 92/64 (73) 97 09/28/17 16:35 72 09/28/17 14:05 98.8 84 16 90/60 (70) 97 09/28/17 12:32 77 09/28/17 11:30 98.6 82 20 96/58 99 09/28/17 11:10 98.7 84 18 102/58 97 09/28/17 10:38 99.1 87 18 92/56 98 09/28/17 08:58 98.8 95 18 94/66 (75) 98 I/O 09/28/17 09/28/17 09/28/17 09/29/17 09/29/17 09/29/17 07:00 15:00 23:00 07:00 15:00 23:00 Intake Total 100 ml 890 ml Balance 100 ml 890 ml Intake IV Total 100 ml 100 ml Packed Cells 400 ml Blood Product IV Normal Saline Flush 390 ml Result Diagram: 09/29/17 0535 09/28/17 0605 Objective Remarks GENERAL: WN, WD AA female resting comfortably in bed in NAD. SKIN: Warm and dry. HEENT: AT/NC. Pupils equal and round. +Scleral icterus. MMM. NECK: Supple no tender LAD or JVD. HEART: RRR w/ 1/6 ADELINE. LUNGS: CTAB without wheezes or crackles. ABDOMEN: +BS, soft, NT, ND. EXTREMITIES: No LE edema. 2+ pedal pulses. Tender with minimal exam of extremities. NEURO: Awake and alert. Nonfocal. PSYCH: Appropriate mood and affect. A/P Problem List: (1) Sepsis ICD Code: A41.9 - Sepsis, unspecified organism Status: Resolved (2) Sickle cell pain crisis ICD Code: D57.00 - Hb-SS disease with crisis, unspecified Status: Acute (3) UTI (urinary tract infection) ICD Code: N39.0 - Urinary tract infection, site not specified Status: Acute Assessment and Plan 31 year old female with sickle cell anemia admitted for acute vasoocclusive crisis. 1. Sickle cell with vasoocclusive crisis - Hb 7.8 with elevated retic count on admission - Hb down to 6.1 yesterday and transfused 1 unit PRBC with post-transfusion hemoglobin of 7.0 - This AM Hb up slightly to 7.2 - Monitor CBC, caution with transfusions given risk of iron overload - Start Lortab 10 mg Q4H PRN with Dilaudid IV for breakthrough - IV Benadryl PRN itching - No signs of acute chest (neg CXR, no hypoxia, no cough) 2. UTI/sepsis - Sepsis component resolved --> patient afebrile, tachycardia resolved, and WBC down to 11.3 from 16.5 - Lactic acid WNL - U/A with + nitrites and LE - Urine culture with <10,000 CFU GNR - Blood cultures negative at 1 day - Continue Rocephin - Monitor temps - Tylenol PRN fever 3. Sickle cell anemia - Continue daily folic acid - Continue home hydroxyurea 4. Elevated AST - Chronically elevated for years per EMR - Hepatitis panel negative in the past - Monitor - Can further be followed as OP DVT prophylaxis: Lovenox Discharge Planning Anticipate D/C tomorrow if patient continues to improve Mignon Saini MD September 29, 2017 08:45
[2017-09-29] MEDS: FOLIC ACID 1 MG TAB PO SCH (09:20)
[2017-09-29] MEDS: MULTIVITAMIN TAB PO SCH (09:20)
[2017-09-29] MEDS: cefTRIAXone INJ 1,000 MG in SODIUM CHLORIDE 0.9% INJ 100 ML IV SCH (09:20)
[2017-09-29] MEDS: SODIUM CHLORIDE 0.9% FLUSH 10 ML FLUSH IV FLUSH SCH ×2 (09:31→21:38)
[2017-09-29] MEDS: DOCUSATE SODIUM 100 MG CAP PO SCH ×2 (09:31→21:38)
[2017-09-29] MEDS: HYDROXYUREA 500 MG CAP PO SCH (09:34)
[2017-09-29] MEDS: ENOXAPARIN SODIUM 40 MG/0.4 ML SYRINGE SQ SCH (09:35)
[2017-09-29] MEDS: ACETAMINOPHEN/HYDROcodone 325 MG/10 MG TAB PO PRN ×3 (12:12→21:32)
[2017-09-29] MEDS: HYDROmorphone HCL PF 0.5 MG/0.5 ML SYRINGE IV PUSH PRN ×3 (12:51→22:22)
[2017-09-30] VITALS (7 sets, daily range): BP systolic 104–120; BP diastolic 63–72; PULSE 66–119; RESP 15–18; TEMP 98.3–98.7; O2SAT 98–99
[2017-09-30] MEDS: ACETAMINOPHEN/HYDROcodone 325 MG/10 MG TAB PO PRN ×5 (01:08→15:31)
[2017-09-30] MEDS: diphenhydrAMINE HCL 50 MG/ML VIAL IV PUSH PRN ×3 (02:06→10:50)
[2017-09-30] MEDS: HYDROmorphone HCL PF 0.5 MG/0.5 ML SYRINGE IV PUSH PRN ×3 (02:06→10:41)
[2017-09-30] MEDS: SODIUM CHLOR 0.9% 1000 ML INJ 1,000 ML IV SCH ×2 (06:10→11:24)
[2017-09-30 07:18] LABS: BASOPHIL # 0.1 TH/MM3 (0-0.2); BASOPHIL % 0.9 % (0.0-2.0); EOSINOPHIL # 0.7 TH/MM3 (0-0.4); EOSINOPHIL % 8.4 % (0.0-4.0); HEMATOCRIT 21.5 % (35.0-46.0); HEMOGLOBIN 7.4 GM/DL (11.6-15.3); LYMPH % 47.3 % (9.0-44.0); LYMPHOCYTE # 4.2 TH/MM3 (1.0-4.8); MEAN CELL VOLUME 86.3 FL (80.0-100.0); MEAN CORPUSCULAR HEMOGLOBIN 29.7 PG (27.0-34.0); MEAN CORPUSCULAR HGB CONC 34.4 % (32.0-36.0); MONO % 9.6 % (0.0-8.0); MONOCYTE # 0.8 TH/MM3 (0-0.9); NEUT % 33.8 % (16.0-70.0); PLATELET COUNT 498 TH/MM3 (150-450); RED BLOOD COUNT 2.49 MIL/MM3 (4.00-5.30); RED CELL DISTRIBUTION WIDTH 19.5 % (11.6-17.2); WHITE BLOOD COUNT 8.8 TH/MM3 (4.0-11.0)
[2017-09-30 08:05] LABS: BASOPHILS 1 % (0-2); CORRECTED NUCLEATED RBC 4 /100 WBC (0-0); LYMPHOCYTES 43 % (9-44); MONOCYTES 3 % (0-8); MYELOCYTES 0 % (0-0); NEUTROPHIL # MANUAL DIFF 3.8 TH/MM3 (1.8-7.7); NUCLEATED RED BLOOD CELL 4 (0-0); POLYS (SEG NEUTROPHILS) 43 % (16-70); SICKLE CELLS 1+ (NORMAL)
[2017-09-30 08:06] LABS: HOWELL-JOLLY BODIES PRESENT (NONE SEEN); TARGET CELLS 1+ (NORMAL)
[2017-09-30] MEDS: DOCUSATE SODIUM 100 MG CAP PO SCH (09:00)
[2017-09-30] MEDS: SODIUM CHLORIDE 0.9% FLUSH 10 ML FLUSH IV FLUSH SCH (09:00)
[2017-09-30] MEDS: FOLIC ACID 1 MG TAB PO SCH (09:13)
[2017-09-30] MEDS: MULTIVITAMIN TAB PO SCH (09:13)
[2017-09-30] MEDS: cefTRIAXone INJ 1,000 MG in SODIUM CHLORIDE 0.9% INJ 100 ML IV SCH (09:14)
[2017-09-30] MEDS: HYDROXYUREA 500 MG CAP PO SCH (09:15)
[2017-09-30] MEDS: ENOXAPARIN SODIUM 40 MG/0.4 ML SYRINGE SQ SCH (12:00)
[2017-09-30] MEDS ORDERED: HYDROmorphone HCL PF 2 MG/ML VIAL IV PUSH PRN (12:15)
--- NOTE | 2017-09-30 17:02 | HHI.DS ---
Discharge Summary Admission Date September 27, 2017 at 10:50 Discharge Date: September 30, 2017 Admitting Diagnosis Sepsis/sickle cell crisis (1) Sepsis ICD Code: A41.9 - Sepsis, unspecified organism Status: Resolved (2) Sickle cell pain crisis ICD Code: D57.00 - Hb-SS disease with crisis, unspecified Status: Acute (3) UTI (urinary tract infection) ICD Code: N39.0 - Urinary tract infection, site not specified Status: Acute Procedures None Brief History - From Admission HPI from the admitting physician 31 year old female with sickle cell anemia presenting to the ER with diffuse pain, fever, and chills for the past two days. She was seen in the ER about six days ago for pain crisis and felt better for a couple days prior to her pain flaring up again. She saw her employment training specialist, Dr. Rivas, yesterday, and at that visit her temperature was 100.8 and her hemoglobin was reportedly 7.4. He advised her to go to the ER if she continued to feel bad and have fever. She pushed oral fluids and took Tylenol at home but just wasn't feeling any better so she came in for further evaluation. At home her highest temperature was 101 yesterday. She denies chest pain, cough, rhinorrhea, sore throat, ear pain, congestion, abdominal pain, open wounds, dysuria, or urgency. She endorses pain in her arms, back, and legs. She takes Lortab 10 mg at home but states that it has not been helping during this crisis. She endorses feeling very weak. She was recently admitted 08/20-08/23 for sickle cell crisis and treated with fluids and analgesics. She has since returned to the ER six times since discharge. CBC/BMP: 09/30/17 0605 09/28/17 0605 Significant Findings Laboratory Tests Test 09/28/17 06:05 09/28/17 14:02 09/29/17 05:35 09/30/17 06:05 White Blood Count 11.3 TH/MM3 (4.0-11.0) Red Blood Count 1.99 MIL/MM3 (4.00-5.30) 2.41 MIL/MM3 (4.00-5.30) 2.49 MIL/MM3 (4.00-5.30) Hemoglobin 6.1 GM/DL (11.6-15.3) 7.0 GM/DL (11.6-15.3) 7.2 GM/DL (11.6-15.3) 7.4 GM/DL (11.6-15.3) Hematocrit 17.0 % (35.0-46.0) 20.0 % (35.0-46.0) 20.5 % (35.0-46.0) 21.5 % (35.0-46.0) Red Cell Distribution Width 20.0 % (11.6-17.2) 18.9 % (11.6-17.2) 19.5 % (11.6-17.2) Monocytes (%) (Auto) 9.7 % (0.0-8.0) 9.3 % (0.0-8.0) 9.6 % (0.0-8.0) Eosinophils (%) (Auto) 4.1 % (0.0-4.0) 6.1 % (0.0-4.0) 8.4 % (0.0-4.0) Monocytes # (Auto) 1.1 TH/MM3 (0-0.9) 1.0 TH/MM3 (0-0.9) Eosinophils # (Auto) 0.5 TH/MM3 (0-0.4) 0.6 TH/MM3 (0-0.4) 0.7 TH/MM3 (0-0.4) Nucleated Red Blood Cells 3 /100 WBC (0-0) 7 /100 WBC (0-0) 4 /100 WBC (0-0) Sickle Cells 3+ (NORMAL) 2+ (NORMAL) 1+ (NORMAL) Keratocytes OCC (NORMAL) Blood Urea Nitrogen 4 MG/DL (7-18) Creatinine 0.44 MG/DL (0.50-1.00) Albumin 2.8 GM/DL (3.4-5.0) Calcium Level 7.9 MG/DL (8.5-10.1) Aspartate Amino Transf (AST/SGOT) 64 U/L (15-37) Total Bilirubin 2.1 MG/DL (0.2-1.0) Chloride Level 109 MEQ/L (98-107) Monocytes % 11 % (0-8) Eosinophils % 5 % (0-4) 10 % (0-4) Platelet Estimate HIGH (NORMAL) HIGH (NORMAL) Polychromasia 2.0 % (0.0-1.9) Target Cells 1+ (NORMAL) 1+ (NORMAL) Platelet Count 498 TH/MM3 (150-450) Lymphocytes (%) (Auto) 47.3 % (9.0-44.0) Imaging Last Impressions Chest X-Ray 09/27/17 0653 Signed Impressions: Service Date/Time: Friday, September 27, 2017 07:05 - CONCLUSION: No acute cardiopulmonary disease. Marquis Redding MD PE at Discharge GENERAL: WN, WD AA female resting comfortably in bed in NAD. HEENT: AT/NC. Pupils equal and round. +Scleral icterus. MMM. NECK: Supple no tender LAD or JVD. HEART: RRR w/ 1/6 ADELINE. LUNGS: CTAB without wheezes or crackles. PSYCH: Appropriate mood and affect. Pt update on day of discharge Patient reports she is feeling better. She states she will go home later this afternoon. However she wants her Dilaudid dose to be increased to 2 mg for this morning prior to going home later today. Hospital Course 31 year old female with sickle cell anemia admitted for acute vasoocclusive crisis. Patient was admitted and treated with IV fluid. Hemoglobin trended down to 6.1. She was transfused 1 unit of PRBC With Improvement in H&H. Urinalysis was concerning for UTI. Patient empirically treated with IV antibiotics. However urine culture was negative. Antibiotics were discontinued. Pain symptoms improved and the patient was discharged home in good condition to follow-up outpatient with her employment training specialist. Pt Condition on Discharge: Good Discharge Disposition: Discharge Home Discharge Time: <= 30 minutes Discharge Instructions DIET: Follow Instructions for: As Tolerated, No Restrictions Activities you can perform: Regular-No Restrictions Continued Medications: Folic Acid (Folic Acid) 0.4 Mg Tab 400 MCG PO DAILY for Nutritional Supplement, TAB 0 Refills Hydrocodone/Acetaminophen (Hydrocodone-Acetamin 10-325 mg) 10 Mg-325 Mg Tablet 1 TAB PO Q4H PRN for pain management, #20 TAB Hydroxyurea (Hydrea) 500 Mg Cap 500 MG PO DAILY, CAP 0 Refills Sennosides-Docusate Sodium (Gnp Senna Plus 8.6-50 mg) 8.6 Mg-50 Mg Tab 1 TAB PO BID for Constipation, #60 TAB Rachana Garcia MD September 30, 2017 17:02
== END 2017-09-30 16:50 | disposition home or self-care (01) | DRG 811 ==
LOC: NEPE 03:28 → NEDA 10:50 → N05B 11:53
PROVIDERS: ADMIT Family Medicine; ATTEND Family Medicine
PROC: 30233N1 Transfusion of Nonautologous Red Blood Cells into Peripheral Vein, Percutaneous Approach (ICD-10-PCS; principal; 2017-09-28)
DX: D57.00 Hb-SS disease with crisis, unspecified (principal); A41.9 Sepsis, unspecified organism; N39.0 Urinary tract infection, site not specified
CPT/HCPCS: 36430; 71046; 80053; 81001; 83605; 85007; 85014; 85018; 85027; 85044; 86850; 86900; 86901; 86920; 87040; 87086; 96361; 96365; 96375; 96376; J0696; J1170; J1200; J1650; J2543; J7030; P9016

== ENCOUNTER 2017-10-10 03:36 | Emergency (ER) | payer OTHER ==
[~2017-10-10] VITALS: Ht 167.6 cm; Wt 60.3 kg
[2017-10-10 04:17] VITALS: BP 111/68; PULSE 80; RESP 20; TEMP 99; O2SAT 95
[2017-10-10] MEDS ORDERED: SODIUM CHLOR 0.9% 1000 ML INJ 1,000 ML IV ONE (05:47)
--- NOTE | 2017-10-10 05:53 | PD ---
HPI Chief Complaint: Sickle Cell Time Seen by Provider: 05:47 Travel History International Travel<30 days: No Contact w/Intl Traveler<30days: No Traveled to known affect area: No History of Present Illness HPI 31-year-old female presents to the emergency department by private transportation for complaint of sickle cell pain. Patient complains of chest pain. Patient states temperature 100.7 earlier today. Patient states she was doing a walk for sickle cell disease and was continent down for an afterwards felt chilled and checked her temperature and it was 100.7. Patient was recently hospitalized for sickle cell crisis with sepsis and UTI. Patient is currently on antibiotic but does not know the name of the antibiotic. Patient' s had no subsequent temperature elevation or fever since her 100.7F temperature earlier in the evening. Patient states she is here for pain management of her sickle crisis. No report of shortness of breath or nausea or vomiting. Patient typically has chest pain with her crisis. Patient denies other concerns or complaints. Patient remains with her patented hogshead assembler Dr. Rivas is her managing provider. [facility] Past Medical History Narrative Medical Anemia sickle cell disease tubal ligation cholecystectomy Infuse-a- Port; no tobacco use; nursing notes reviewed Anemia: Yes Arthritis: No Asthma: No Autoimmune Disease: No Blood Disorders: Yes (sickle cell disease) Anxiety: No Depression: No Heart Rhythm Problems: No Cancer: No Cardiovascular Problems: No High Cholesterol: No Chemotherapy: No Chest Pain: No Congestive Heart Failure: No COPD: No Cerebrovascular Accident: No Diabetes: No Diminished Hearing: No Endocrine: No Gastrointestinal Disorders: Yes (GALLSTONES) GERD: No Genitourinary: No Headaches: Yes Hiatal Hernia: No Heparin Induced Thrombocytopen: No Immune Disorder: No Implanted Vascular Access Dvce: Yes (RIGHT CHEST ) Insomnia: Yes Kidney Stones: Yes Musculoskeletal: No Neurologic: No Psychiatric: No Reproductive: No Respiratory: No Immunizations Current: Yes Migraines: No Pneumonia: Yes Radiation Therapy: No Renal Failure: No Seizures: No Sickle Cell Disease: Yes Sleep Apnea: No Thyroid Disease: No Ulcer: No Tetanus Vaccination: < 5 Years Influenza Vaccination: Yes PNEUMOCCOCAL Vaccine (Year): 2 ?: Not : 1 Para: 1 Miscarriage: 1 : 0 Tubal Ligation: Yes Past Surgical History Abdominal Surgery: Yes AICD: No Arteriovenous Shunt: No Body Medical Devices: right chest port Cardiac Surgery: No Section: Yes (X 1) Cholecystectomy: Yes Ear Surgery: No Endocrine Surgery: No Eye Surgery: No Genitourinary Surgery: No Gynecologic Surgery: Yes (tubal ligation) Hysterectomy: No Insulin Pump: No Joint Replacement: No Oral Surgery: Yes Pacemaker: No Thoracic Surgery: Yes (CHEST PORT ) Tonsillectomy: Yes Other Surgery: Yes (right chest port) Social History Alcohol Use: No Tobacco Use: No Substance Use: No Allergies-Medications (Allergen,Severity, Reaction): Coded Allergies: morphine (Verified Allergy, Severe, RASH, 10/10/17) *MDRO Multi-Drug Resistant Organism (Verified Adverse Reaction, Unknown, MRSA, 10/10/17) MRSA (blood) - 12/18/2004 MRSA PCR screen NEGATIVE 08/27/16 & 09/21/16 Cleared per Infection Control Reported Meds & Prescriptions Reported Meds & Active Scripts Active Gnp Senna Plus 8.6-50 mg (Sennosides-Docusate Sodium) 8.6 Mg-50 Mg Tab 1 Tab PO BID Reported Hydrea (Hydroxyurea) 500 Mg Cap 500 Mg PO DAILY Folic Acid 0.4 Mg Tab 400 Mcg PO DAILY Review of Systems Except as stated in HPI: all other systems reviewed are Neg General / Constitutional: Positive: Fever (Temperature 100.7F earlier on ) HENT: Positive: Congestion Cardiovascular: Positive: Chest Pain or Discomfort Respiratory: No: Cough, Shortness of Breath, Wheezing Gastrointestinal: No: Nausea, Vomiting, Abdominal Pain Genitourinary: No: Dysuria, Flank Pain Musculoskeletal: No: Myalgias, Arthralgias Skin: No Rash Neurologic: No: Weakness Psychiatric: No: Anxiety Hematologic/Lymphatic: No: Easy Bruising Physical Exam Narrative GENERAL: Well-developed well-nourished female no acute distress no respiratory distress SKIN: Warm and dry. HEAD: Normocephalic. EYES: No scleral icterus. No injection or drainage. NECK: Supple, trachea midline. No JVD or lymphadenopathy. CARDIOVASCULAR: Regular rate and rhythm without murmurs, gallops, or rubs. RESPIRATORY: Breath sounds equal bilaterally. No accessory muscle use. GASTROINTESTINAL: Abdomen soft, non-tender, nondistended. MUSCULOSKELETAL: No cyanosis, or edema. BACK: Nontender without obvious deformity. No CVA tenderness. Data Data Last Documented VS Vital Signs Date Time Temp Pulse Resp B/P (MAP) Pulse Ox O2 Delivery O2 Flow Rate FiO2 10/10/17 04:17 99.0 80 20 111/68 (82) 95 Orders Orders Basic Metabolic Panel (Bmp) (10/10/17 05:47) Complete Blood Count With Diff (10/10/17 05:47) Retic Count (10/10/17 05:47) Urinalysis - C+S If Indicated (10/10/17 05:47) Chest, Single Ap (10/10/17 05:47) Ecg Monitoring (10/10/17 05:47) Iv Access Insert/Monitor (10/10/17 05:47) Oximetry (10/10/17 05:47) Sodium Chloride 0.9% Flush (Ns Flush) (10/10/17 06:00) Sodium Chlor 0.9% 1000 Ml Inj (Ns 1000 M (10/10/17 05:47) Hydromorphone Pf Inj (Dilaudid Pf Inj) (10/10/17 06:00) Diphenhydramine Inj (Benadryl Inj) (10/10/17 06:00) Ondansetron Odt (Zofran Odt) (10/10/17 06:00) MDM Medical Decision Making Medical Screen Exam Complete: Yes Emergency Medical Condition: Yes Medical Record Reviewed: Yes Differential Diagnosis Sickle cell disease, sickle cell crisis, UTI, pneumonia, viral syndrome, anemia Narrative Course Port access patient administered 1 L normal saline Dilaudid 1 mg ODT 4 mg by mouth Halina Jiang MD Oct 10, 2017 05:53
[2017-10-10] MEDS ORDERED: SODIUM CHLORIDE 0.9% FLUSH 10 ML FLUSH IVF PRN (06:00)
[2017-10-10] MEDS ORDERED: ONDANSETRON ODT 4 MG TAB PO ONE (06:00)
[2017-10-10] MEDS ORDERED: HYDROmorphone HCL PF 2 MG/ML VIAL IV PUSH ONE (06:00)
[2017-10-10] MEDS ORDERED: diphenhydrAMINE HCL 50 MG/ML VIAL IV PUSH ONE (06:00)
[2017-10-10 06:05] VITALS: RESP 17; O2SAT 94
[2017-10-10 06:10] LABS: AUTOMATED NEUTROPHIL # 5.8 TH/MM3 (1.8-7.7); BASOPHIL # 0.1 TH/MM3 (0-0.2); BASOPHIL % 0.7 % (0.0-2.0); EOSINOPHIL # 0.3 TH/MM3 (0-0.4); EOSINOPHIL % 2.5 % (0.0-4.0); HEMATOCRIT 23.2 % (35.0-46.0); HEMOGLOBIN 8.2 GM/DL (11.6-15.3); LYMPH % 32.6 % (9.0-44.0); LYMPHOCYTE # 3.4 TH/MM3 (1.0-4.8); MEAN CELL VOLUME 84.7 FL (80.0-100.0); MEAN CORPUSCULAR HGB CONC 35.4 % (32.0-36.0); MEAN PLATELET VOLUME 7.7 FL (7.0-11.0); MONO % 8.1 % (0.0-8.0); MONOCYTE # 0.8 TH/MM3 (0-0.9); NEUT % 56.1 % (16.0-70.0); PLATELET COUNT 505 TH/MM3 (150-450); RED BLOOD COUNT 2.74 MIL/MM3 (4.00-5.30); RETIC # 251.8 MIL/L (20.0-150.0); RETIC % 9.2 % (0.4-3.0); WHITE BLOOD COUNT 10.3 TH/MM3 (4.0-11.0)
--- NOTE | 2017-10-10 06:16 | RADRPT ---
EXAM DATE: 10/10/2017 6:10 AM EDT AGE/SEX: 31 years / Female INDICATIONS: Chest pain. CLINICAL DATA: This is the patient's initial encounter. Patient reports that signs and symptoms have been present for 1 day and indicates a pain score of 9/10. MEDICAL/SURGICAL HISTORY: Sickle Cell disease. . Infusaport. COMPARISON: [facility] [place], CHEST PA & LAT, 09/27/2017. . FINDINGS: [id number] in superior vena cava. Minimal basilar atelectasis or scarring. No new consolidation or effusion. Heart size upper limits normal. CONCLUSION: Minimal basilar atelectasis. No new consolidation or effusion. Electronically signed by: Patrice Cheema MD 10/10/2017 6:14 AM EDT
[2017-10-10 06:29] LABS: BICARBONATE 25.6 MEQ/L (21.0-32.0); CALCIUM 8.9 MG/DL (8.5-10.1); CREATININE 0.57 MG/DL (0.50-1.00)
[2017-10-10 07:09] LABS: BANDS 2 % (0-6); CORRECTED NUCLEATED RBC 5 /100 WBC (0-0); LYMPHOCYTES 31 % (9-44); MONOCYTES 8 % (0-8); NEUTROPHIL # MANUAL DIFF 6.2 TH/MM3 (1.8-7.7); NUCLEATED RED BLOOD CELL 5 (0-0); POLYS (SEG NEUTROPHILS) 58 % (16-70)
[2017-10-10 07:10] LABS: SICKLE CELLS 2+ (NORMAL); TARGET CELLS 1+ (NORMAL)
[2017-10-10 07:11] LABS: POLYCHROMASIA 2.1 % (0.0-1.9)
== END 2017-10-10 07:56 | disposition home or self-care (01) ==
LOC: NEPC 03:36
DX: R07.9 Chest pain, unspecified (principal); D57.1 Sickle-cell disease without crisis; J98.11 Atelectasis; D64.9 Anemia, unspecified; G47.00 Insomnia, unspecified; Z87.442 Personal history of urinary calculi; Z79.899 Other long term (current) drug therapy; Z88.5 Allergy status to narcotic agent
CPT/HCPCS: 71045; 80048; 85007; 85027; 85044; 96361; 96374; 96375; 99284; J1170; J1200; J7030

== ENCOUNTER 2017-10-15 03:43 | Emergency (ER) | payer OTHER ==
[~2017-10-15] VITALS: Ht 165.1 cm; Wt 60.3 kg
[~2017-10-15 03:43] MED LIST changes: -HYDR-3583 PO
[2017-10-15 03:48] VITALS: BP 131/59; PULSE 96; RESP 20; TEMP 98.7; O2SAT 92
[2017-10-15] MEDS ORDERED: SODIUM CHLOR 0.9% 1000 ML INJ 1,000 ML IV ONE (04:37)
[2017-10-15] MEDS ORDERED: diphenhydrAMINE HCL 50 MG/ML VIAL IV PUSH ONE ×2 (04:45→06:15)
[2017-10-15] MEDS ORDERED: HYDROmorphone HCL PF 2 MG/ML VIAL IV PUSH ONE ×2 (04:45→06:15)
[2017-10-15] MEDS ORDERED: SODIUM CHLORIDE 0.9% FLUSH 10 ML FLUSH IVF PRN (04:45)
[2017-10-15 05:08] LABS: HEMOGLOBIN 7.5 GM/DL (11.6-15.3); MEAN CORPUSCULAR HEMOGLOBIN 30.6 PG (27.0-34.0); MEAN CORPUSCULAR HGB CONC 35.9 % (32.0-36.0); MEAN PLATELET VOLUME 8.1 FL (7.0-11.0); PLATELET COUNT 399 TH/MM3 (150-450); RED BLOOD COUNT 2.47 MIL/MM3 (4.00-5.30); RED CELL DISTRIBUTION WIDTH 21.5 % (11.6-17.2); RETIC # 209.8 MIL/L (20.0-150.0); RETIC % 8.5 % (0.4-3.0); WHITE BLOOD COUNT 10.3 TH/MM3 (4.0-11.0)
--- NOTE | 2017-10-15 05:18 | PD ---
HPI Chief Complaint: Sickle Cell Time Seen by Provider: 04:21 Travel History International Travel<30 days: No Contact w/Intl Traveler<30days: No Traveled to known affect area: No History of Present Illness HPI The patient is a 31 year old female who presents to the [facility] emergency department with a history of cough and congestion that she reports began on Friday. The patient reports that the cough is dry in character. She reports that she has an associated sore throat with clear rhinorrhea. She denies having any fevers associated with this. She denies having any nausea, vomiting, or diarrhea. She denies having any chest pain, chest pressure, or shortness of breath. She does however report that she has since yesterday had a sickle cell pain crisis start with low back pain, bilateral upper and lower extremity pain. She denies having any swelling or redness of her joints. She denies having any rashes. Otherwise on review of systems, she denies having any headache, neck pain, abdominal pain, urinary symptoms, or neurologic symptoms. The patient reports that she last took a hydrocodone for pain at approximately 10:30 to 11 PM. LMP: Approximately 3 weeks ago [facility] Past Medical History Narrative Medical The patient's past medical history is significant for sickle cell anemia, E. coli bacteremia in September 2016, dysmenorrhea Anemia: Yes Arthritis: No Asthma: No Autoimmune Disease: No Blood Disorders: Yes (sickle cell disease) Anxiety: No Depression: No Heart Rhythm Problems: No Cancer: No Cardiovascular Problems: No High Cholesterol: No Chemotherapy: No Chest Pain: No Congestive Heart Failure: No COPD: No Cerebrovascular Accident: No Diabetes: No Diminished Hearing: No Endocrine: No Gastrointestinal Disorders: Yes (GALLSTONES) GERD: No Genitourinary: No Headaches: Yes Hiatal Hernia: No Heparin Induced Thrombocytopen: No Immune Disorder: No Implanted Vascular Access Dvce: Yes (RIGHT CHEST ) Insomnia: Yes Kidney Stones: Yes Musculoskeletal: No Neurologic: No Psychiatric: No Reproductive: No Respiratory: No Immunizations Current: Yes Migraines: No Pneumonia: Yes Radiation Therapy: No Renal Failure: No Seizures: No Sickle Cell Disease: Yes Sleep Apnea: No Thyroid Disease: No Ulcer: No Tetanus Vaccination: < 5 Years Influenza Vaccination: Yes PNEUMOCCOCAL Vaccine (Year): 2 ?: Not : 1 Para: 1 Miscarriage: 1 : 0 Tubal Ligation: Yes Past Surgical History Narrative Surgical The patient's past surgical history is significant for an [id number] placement, bilateral tubal ligation, cholecystectomy, . Abdominal Surgery: Yes AICD: No Arteriovenous Shunt: No Body Medical Devices: right chest port Cardiac Surgery: No Section: Yes (X 1) Cholecystectomy: Yes Ear Surgery: No Endocrine Surgery: No Eye Surgery: No Genitourinary Surgery: No Gynecologic Surgery: Yes (tubal ligation) Hysterectomy: No Insulin Pump: No Joint Replacement: No Oral Surgery: Yes Pacemaker: No Thoracic Surgery: Yes (CHEST PORT ) Tonsillectomy: Yes Other Surgery: Yes (right chest port) Social History Alcohol Use: No Tobacco Use: No Substance Use: No Allergies-Medications (Allergen,Severity, Reaction): Coded Allergies: morphine (Verified Allergy, Severe, RASH, 10/10/17) *MDRO Multi-Drug Resistant Organism (Verified Adverse Reaction, Unknown, MRSA, 10/10/17) MRSA (blood) - 12/18/2004 MRSA PCR screen NEGATIVE 08/27/16 & 09/21/16 Cleared per Infection Control Reported Meds & Prescriptions Reported Meds & Active Scripts Active Gnp Senna Plus 8.6-50 mg (Sennosides-Docusate Sodium) 8.6 Mg-50 Mg Tab 1 Tab PO BID Reported Hydrea (Hydroxyurea) 500 Mg Cap 500 Mg PO DAILY Folic Acid 0.4 Mg Tab 400 Mcg PO DAILY Review of Systems Except as stated in HPI: all other systems reviewed are Neg General / Constitutional: No: Fever Eyes: No: Visual changes HENT: Positive: Rhinorrhea, Congestion, No: Headaches Cardiovascular: No: Chest Pain or Discomfort, Dyspnea on exertion Respiratory: Positive: Cough, No: Shortness of Breath Gastrointestinal: No: Nausea, Vomiting, Diarrhea, Abdominal Pain Genitourinary: No: Dysuria Musculoskeletal: Positive: Myalgias, Arthralgias, Pain, No: Limited ROM, Edema Skin: No Rash Neurologic: No: Weakness, Focal Abnormalities, Change in Mentation, Slurred Speech, Sensory Disturbance Psychiatric: No: Depression Endocrine: No: Polydipsia Hematologic/Lymphatic: No: Easy Bruising Physical Exam Narrative General: The patient is a well-developed well-nourished female in no acute distress. Head and Neck exam: Head is normocephalic atraumatic. Eyes: EOMI, pupils are equal round and reactive to light. Nose: Midline septum with erythematous edematous nasal mucosa and a clear nasal discharge Mouth: Dentition unremarkable. Moist mucus membranes. Posterior oropharynx is mild erythematous. No tonsillar hypertrophy. Uvula midline. Airway patent. Neck: No palpable lymphadenopathy. No nuchal rigidity. No thyromegaly. Cardiovascular: Regular rate and rhythm without murmurs, gallops, or rubs. No pulse deficit to the extremities on simultaneous auscultation and palpation of her radial artery. Lungs: Clear to auscultation bilaterally. No wheezes, rhonchi, or rales. Abdomen: Soft, without tenderness to palpation in all 4 quadrants of the abdomen. No guarding, rebound, or rigidity. Normal bowel sounds are audible. No tenderness on palpation of McBurney's point. Negative Bolanos sign. Extremities: No clubbing, cyanosis, or edema. 2+ pulses in all 4 extremities. No calf tenderness on palpation. No joint erythema, edema, or loss of range of motion. Back: No spinous process tenderness to palpation. No costovertebral angle tenderness to palpation. Neurologic Exam: Grossly nonfocal. Skin Exam: No rash noted. Intact skin that is warm and dry. Data Data Last Documented VS Vital Signs Date Time Temp Pulse Resp B/P (MAP) Pulse Ox O2 Delivery O2 Flow Rate FiO2 10/15/17 05:53 84 16 99/69 (79) 94 Room Air 10/15/17 03:48 98.7 Orders Orders Complete Blood Count With Diff (10/15/17 04:37) Comprehensive Metabolic Panel (10/15/17 04:37) Retic Count (10/15/17 04:37) Ecg Monitoring (10/15/17 04:37) Iv Access Insert/Monitor (10/15/17 04:37) Oximetry (10/15/17 04:37) Oxygen Administration (10/15/17 04:37) Sodium Chloride 0.9% Flush (Ns Flush) (10/15/17 04:45) Sodium Chlor 0.9% 1000 Ml Inj (Ns 1000 M (10/15/17 04:37) Diphenhydramine Inj (Benadryl Inj) (10/15/17 04:45) Hydromorphone Pf Inj (Dilaudid Pf Inj) (10/15/17 04:45) Sodium Chlorid 0.9% 500 Ml Inj (Ns 500 M (10/15/17 06:15) Hydromorphone Pf Inj (Dilaudid Pf Inj) (10/15/17 06:15) Diphenhydramine Inj (Benadryl Inj) (10/15/17 06:15) Labs Laboratory Tests Test 10/15/17 04:45 White Blood Count 10.3 TH/MM3 Red Blood Count 2.47 MIL/MM3 Hemoglobin 7.5 GM/DL Hematocrit 21.0 % Mean Corpuscular Volume 85.0 FL Mean Corpuscular Hemoglobin 30.6 PG Mean Corpuscular Hemoglobin Concent 35.9 % Red Cell Distribution Width 21.5 % Platelet Count 399 TH/MM3 Mean Platelet Volume 8.1 FL CBC Comment AUTO DIFF Differential Total Cells Counted 100 Neutrophils % (Manual) 44 % Band Neutrophils % 1 % Lymphocytes % 45 % Monocytes % 6 % Eosinophils % 4 % Neutrophils # (Manual) 4.6 TH/MM3 Nucleated Red Blood Cells 6 /100 WBC Differential Comment FINAL DIFF MANUAL Platelet Estimate NORMAL Platelet Morphology Comment NORMAL Sickle Cells 2+ Reticulocyte Count 8.5 % Absolute Reticulocyte Count 209.8 MIL/L Blood Urea Nitrogen 4 MG/DL Creatinine 0.52 MG/DL Random Glucose 92 MG/DL Total Protein 7.5 GM/DL Albumin 3.2 GM/DL Calcium Level 8.2 MG/DL Alkaline Phosphatase 105 U/L Aspartate Amino Transf (AST/SGOT) 57 U/L Alanine Aminotransferase (ALT/SGPT) 21 U/L Total Bilirubin 2.1 MG/DL Sodium Level 139 MEQ/L Potassium Level 3.5 MEQ/L Chloride Level 103 MEQ/L Carbon Dioxide Level 25.0 MEQ/L Anion Gap 11 MEQ/L Estimat Glomerular Filtration Rate 164 ML/MIN MDM Medical Decision Making Medical Screen Exam Complete: Yes Emergency Medical Condition: Yes Medical Record Reviewed: Yes Differential Diagnosis Upper respiratory infection, versus seasonal allergies, versus sickle cell pain crisis, versus drug-seeking behavior Narrative Course During the course of the patient's emergency department visit, the patient's history, examination, and differential diagnosis were reviewed with the patient. The patient was placed on a monitoring manager with oximetry and frequent blood pressure monitoring. The patient had IV access obtained and blood work sent for analysis. The patient was placed on 2 L nasal cannula O2. The patient was initially provided normal saline 1 L IV fluid bolus, hydromorphone 1 mg IV, Benadryl 25 mg IV. The patient's laboratory studies were reviewed and remarkable for a white count of 10.3, hemoglobin 7.5, platelets 399, with a differential remarkable for a lymphocytosis of 45 suggestive of a viral source for the patient's upper respiratory infection. She has a reticulocyte count 8.5, CMP is remarkable for a BUN of 4, calcium 8.2, total bilirubin 2.1, AST is 57, albumin 3.2. The patient on reexamination reported improvement in her pain, however her pain level was still moderate. The patient was given an additional hydromorphone 0.5 mg IV, and another dose of Benadryl for nausea and itching. And a second bag of normal saline 500 mL bolus. On final examination, the patient reported feeling improved. The patient is eager to be discharged home. She was instructed to follow-up with her cyber security engineer regarding this emergency department visit. The patient is resting comfortably and feels better, is alert and in no distress. The patient's results and examination findings were discussed with the patient. The repeat examination is unremarkable and benign. The history, exam, diagnostic testing, and current condition do not suggest any significant pathology to warrant further testing, continued ED treatment, admission, or surgical evaluation at this point. The vital signs have been stable. The patient does not have uncontrollable pain, intractable vomiting, or other significant symptoms. The patient's condition is stable and appropriate for discharge. The patient will pursue further outpatient evaluation with a primary care physician or other designated or consulting physician as indicated in the discharge instructions. The patient is instructed to report back to the emergency department immediately for reexamination in the mean time if she develops any new or worsening signs or symptoms. The patient expressed understanding and was agreeable with this plan. Diagnosis Primary Impression: Upper respiratory infection Qualified Codes: J06.9 - Acute upper respiratory infection, unspecified Additional Impression: Sickle cell crisis Referrals: Primary Care Physician 2 days Patient Instructions: General Instructions, Sickle Cell Crisis (ED), Upper Respiratory Infection (ED) Med/Other Pt SpecificInfo: No Change to Meds Disposition: 01 DISCHARGE HOME Condition: Stable Mignon Lin MD Oct 15, 2017 05:18
[2017-10-15 05:24] LABS: ALT (GPT) 21 U/L (10-53)
[2017-10-15 05:27] LABS: ALKALINE PHOSPHATASE 105 U/L (45-117); TOTAL BILIRUBIN ADULT 2.1 MG/DL (0.2-1.0); TOTAL PROTEIN 7.5 GM/DL (6.4-8.2)
[2017-10-15 05:32] LABS: ALBUMIN 3.2 GM/DL (3.4-5.0); AST (GOT) 57 U/L (15-37); BLOOD UREA NITROGEN 4 MG/DL (7-18); CALCIUM 8.2 MG/DL (8.5-10.1); CHLORIDE 103 MEQ/L (98-107); CREATININE 0.52 MG/DL (0.50-1.00); GLOMERULAR FILTRATION RATE 164 ML/MIN (>89); GLUCOSE,RANDOM 92 MG/DL (74-106); SODIUM (NA) 139 MEQ/L (136-145)
[2017-10-15 05:49] LABS: BANDS 1 % (0-6); CORRECTED NUCLEATED RBC 6 /100 WBC (0-0); LYMPHOCYTES 45 % (9-44); MONOCYTES 6 % (0-8); NEUTROPHIL # MANUAL DIFF 4.6 TH/MM3 (1.8-7.7); NUCLEATED RED BLOOD CELL 6 (0-0); POLYS (SEG NEUTROPHILS) 44 % (16-70)
[2017-10-15 05:53] VITALS: BP 99/69; PULSE 84; RESP 16; O2SAT 94
[2017-10-15 05:54] LABS: SICKLE CELLS 2+ (NORMAL)
[2017-10-15] MEDS ORDERED: SODIUM CHLORID 0.9% 500 ML INJ 500 ML IV ONE (06:15)
[2017-10-15 06:31] VITALS: BP 109/72; PULSE 83; RESP 16; O2SAT 94
== END 2017-10-15 07:21 | disposition home or self-care (01) ==
LOC: NEPC 03:43
DX: J06.9 Acute upper respiratory infection, unspecified (principal); D57.00 Hb-SS disease with crisis, unspecified
CPT/HCPCS: 80053; 85007; 85027; 85044; 96361; 96374; 96375; 96376; 99284; J1170; J1200; J7030; J7040

== ENCOUNTER 2017-10-25 03:41 | Emergency (ER) | payer OTHER ==
[2017-10-25 03:50] VITALS: BP 113/57; PULSE 96; RESP 16; TEMP 99.7; O2SAT 93
[2017-10-25 04:24] VITALS: BP 106/64; PULSE 91; RESP 15; O2SAT 93
[2017-10-25 04:29] LABS: AUTOMATED NEUTROPHIL # 3.9 TH/MM3 (1.8-7.7); BASOPHIL # 0.2 TH/MM3 (0-0.2); BASOPHIL % 1.5 % (0.0-2.0); EOSINOPHIL # 0.3 TH/MM3 (0-0.4); EOSINOPHIL % 3.2 % (0.0-4.0); HEMOGLOBIN 7.4 GM/DL (11.6-15.3); LYMPH % 45.8 % (9.0-44.0); LYMPHOCYTE # 4.5 TH/MM3 (1.0-4.8); MEAN CELL VOLUME 83.2 FL (80.0-100.0); MEAN PLATELET VOLUME 7.8 FL (7.0-11.0); MONO % 10.4 % (0.0-8.0); NEUT % 39.1 % (16.0-70.0); PLATELET COUNT 340 TH/MM3 (150-450); RED BLOOD COUNT 2.38 MIL/MM3 (4.00-5.30); RED CELL DISTRIBUTION WIDTH 22.3 % (11.6-17.2); RETIC % 9.4 % (0.4-3.0); WHITE BLOOD COUNT 9.9 TH/MM3 (4.0-11.0)
[2017-10-25 04:31] LABS: MEAN CORPUSCULAR HGB CONC 37.3 % (32.0-36.0)
[2017-10-25 04:36] LABS: HEMATOCRIT 19.8 % (35.0-46.0)
[2017-10-25 04:45] LABS: ALKALINE PHOSPHATASE 123 U/L (45-117); TOTAL BILIRUBIN ADULT 2.8 MG/DL (0.2-1.0); TOTAL PROTEIN 7.6 GM/DL (6.4-8.2)
[2017-10-25 04:53] LABS: ALBUMIN 3.2 GM/DL (3.4-5.0); ALT (GPT) 26 U/L (10-53); AST (GOT) 73 U/L (15-37); BICARBONATE 24.6 MEQ/L (21.0-32.0); BLOOD UREA NITROGEN 5 MG/DL (7-18); CALCIUM 8.1 MG/DL (8.5-10.1); CHLORIDE 108 MEQ/L (98-107); CREATININE 0.51 MG/DL (0.50-1.00); GLOMERULAR FILTRATION RATE 168 ML/MIN (>89); GLUCOSE,RANDOM 110 MG/DL (74-106); SODIUM (NA) 141 MEQ/L (136-145)
--- NOTE | 2017-10-25 05:11 | PD ---
HPI Chief Complaint: Sickle Cell Time Seen by Provider: 05:08 Travel History International Travel<30 days: No Contact w/Intl Traveler<30days: No Traveled to known affect area: No History of Present Illness HPI 31-year-old female presents the emergency department with sickle cell pain. This is her typical pain in her low back and legs. Pain began yesterday. Multiple prior episodes, patient is well-known to the ER at [facility] however this is my first time seeing her. PFSH Past Medical History Anemia: Yes Arthritis: No Asthma: No Autoimmune Disease: No Blood Disorders: Yes (sickle cell disease) Anxiety: No Depression: No Heart Rhythm Problems: No Cancer: No Cardiovascular Problems: No High Cholesterol: No Chemotherapy: No Chest Pain: No Congestive Heart Failure: No COPD: No Cerebrovascular Accident: No Diabetes: No Diminished Hearing: No Endocrine: No Gastrointestinal Disorders: Yes (GALLSTONES) GERD: No Genitourinary: No Headaches: Yes Hiatal Hernia: No Heparin Induced Thrombocytopen: No Immune Disorder: No Implanted Vascular Access Dvce: Yes (RIGHT CHEST ) Insomnia: Yes Kidney Stones: Yes Musculoskeletal: No Neurologic: No Psychiatric: No Reproductive: No Respiratory: No Immunizations Current: Yes Migraines: No Pneumonia: Yes Radiation Therapy: No Renal Failure: No Seizures: No Sickle Cell Disease: Yes Sleep Apnea: No Thyroid Disease: No Ulcer: No PNEUMOCCOCAL Vaccine (Year): 2 ?: Not : 1 Para: 1 Miscarriage: 1 : 0 Tubal Ligation: Yes Past Surgical History Abdominal Surgery: Yes AICD: No Arteriovenous Shunt: No Body Medical Devices: right chest port Cardiac Surgery: No Section: Yes (X 1) Cholecystectomy: Yes Ear Surgery: No Endocrine Surgery: No Eye Surgery: No Genitourinary Surgery: No Gynecologic Surgery: Yes (tubal ligation) Hysterectomy: No Insulin Pump: No Joint Replacement: No Oral Surgery: Yes Pacemaker: No Thoracic Surgery: Yes (CHEST PORT ) Tonsillectomy: Yes Other Surgery: Yes (right chest port) Social History Alcohol Use: No Tobacco Use: No Substance Use: No Allergies-Medications (Allergen,Severity, Reaction): Coded Allergies: morphine (Verified Allergy, Severe, RASH, 10/10/17) *MDRO Multi-Drug Resistant Organism (Verified Adverse Reaction, Unknown, MRSA, 10/10/17) MRSA (blood) - 12/18/2004 MRSA PCR screen NEGATIVE 08/27/16 & 09/21/16 Cleared per Infection Control Reported Meds & Prescriptions Reported Meds & Active Scripts Active Gnp Senna Plus 8.6-50 mg (Sennosides-Docusate Sodium) 8.6 Mg-50 Mg Tab 1 Tab PO BID Reported Hydrea (Hydroxyurea) 500 Mg Cap 500 Mg PO DAILY Folic Acid 0.4 Mg Tab 400 Mcg PO DAILY Physical Exam Narrative GENERAL: Well-nourished, well-developed patient in no distress SKIN: Focused skin assessment warm/dry. HEAD: Normocephalic. EYES: No scleral icterus. No injection or drainage. NECK: Supple, trachea midline. No JVD or lymphadenopathy. CARDIOVASCULAR: Regular rate and rhythm without murmurs, gallops, or rubs. RESPIRATORY: Breath sounds equal bilaterally. No accessory muscle use. GASTROINTESTINAL: Abdomen soft, non-tender, nondistended. BACK: Nontender without obvious deformity. No CVA tenderness. Data Data Last Documented VS Vital Signs Date Time Temp Pulse Resp B/P (MAP) Pulse Ox O2 Delivery O2 Flow Rate FiO2 10/25/17 04:24 91 15 106/64 (78) 93 10/25/17 03:50 99.7 Orders Orders Complete Blood Count With Diff (10/25/17 04:14) Retic Count (10/25/17 04:14) Iv Access Insert/Monitor (10/25/17 04:14) Comprehensive Metabolic Panel (10/25/17 04:14) Labs Laboratory Tests Test 10/25/17 04:20 White Blood Count 9.9 TH/MM3 Red Blood Count 2.38 MIL/MM3 Hemoglobin 7.4 GM/DL Hematocrit 19.8 % Mean Corpuscular Volume 83.2 FL Mean Corpuscular Hemoglobin 31.0 PG Mean Corpuscular Hemoglobin Concent 37.3 % Red Cell Distribution Width 22.3 % Platelet Count 340 TH/MM3 Mean Platelet Volume 7.8 FL Neutrophils (%) (Auto) 39.1 % Lymphocytes (%) (Auto) 45.8 % Monocytes (%) (Auto) 10.4 % Eosinophils (%) (Auto) 3.2 % Basophils (%) (Auto) 1.5 % Neutrophils # (Auto) 3.9 TH/MM3 Lymphocytes # (Auto) 4.5 TH/MM3 Monocytes # (Auto) 1.0 TH/MM3 Eosinophils # (Auto) 0.3 TH/MM3 Basophils # (Auto) 0.2 TH/MM3 CBC Comment AUTO DIFF Reticulocyte Count 9.4 % Absolute Reticulocyte Count 224.0 MIL/L Blood Urea Nitrogen 5 MG/DL Creatinine 0.51 MG/DL Random Glucose 110 MG/DL Total Protein 7.6 GM/DL Albumin 3.2 GM/DL Calcium Level 8.1 MG/DL Alkaline Phosphatase 123 U/L Aspartate Amino Transf (AST/SGOT) 73 U/L Alanine Aminotransferase (ALT/SGPT) 26 U/L Total Bilirubin 2.8 MG/DL Sodium Level 141 MEQ/L Potassium Level 3.7 MEQ/L Chloride Level 108 MEQ/L Carbon Dioxide Level 24.6 MEQ/L Anion Gap 8 MEQ/L Estimat Glomerular Filtration Rate 168 ML/MIN MDM Medical Decision Making Medical Screen Exam Complete: Yes Emergency Medical Condition: Yes Differential Diagnosis Malingering, drug-seeking behavior Narrative Course 31-year-old female presents sickle cell pain. She is offered morphine but states she is allergic to it. She requests Dilaudid which was denied. I explained to the patient that my practice is to use 1 dose of morphine while awaiting labs. If indeed the labs demonstrate acute crisis additional medications would be given. If patient is not in crisis no additional meds would be given. Patient states that she signed a form with Dr. freire regarding administration of pain meds which could not be found in the system. When told the forms she mentioned could not be found she became angry and made threats. I reminded her that I was polite and explained very clearly the way I practice. Patient's labs demonstrate that she is not in acute crisis. She was discharged home. Diagnosis Primary Impression: Pain syndrome, chronic Patient Instructions: Chronic Back Pain (ED), General Instructions Disposition: 01 DISCHARGE HOME Condition: Jose M Altamirano DO Oct 25, 2017 05:11
[2017-10-25 05:17] LABS: BASOPHILS 2 % (0-2); CORRECTED NUCLEATED RBC 12 /100 WBC (0-0); LYMPHOCYTES 43 % (9-44); MONOCYTES 6 % (0-8); NEUTROPHIL # MANUAL DIFF 4.7 TH/MM3 (1.8-7.7); NUCLEATED RED BLOOD CELL 12 (0-0); POLYS (SEG NEUTROPHILS) 47 % (16-70)
[2017-10-25 05:18] LABS: SICKLE CELLS 3+ (NORMAL)
[2017-10-25 05:21] LABS: SPHEROCYTES OCC (NORMAL)
== END 2017-10-25 05:22 | disposition home or self-care (01) ==
LOC: NEPC 03:41
DX: D57.1 Sickle-cell disease without crisis (principal); M54.5 Low back pain; M79.605 Pain in left leg; M79.604 Pain in right leg; D64.9 Anemia, unspecified; G47.00 Insomnia, unspecified; Z87.442 Personal history of urinary calculi; Z87.01 Personal history of pneumonia (recurrent); Z79.899 Other long term (current) drug therapy; Z88.5 Allergy status to narcotic agent
CPT/HCPCS: 80053; 85007; 85027; 85044; 99283

== ENCOUNTER 2017-10-28 03:17 | Emergency (ER) | payer OTHER ==
[~2017-10-28] VITALS: Ht 162.6 cm; Wt 60.0 kg
[2017-10-28 03:18] VITALS: BP 119/77; PULSE 116; RESP 18; TEMP 99.8; O2SAT 90
[2017-10-28] MEDS ORDERED: SODIUM CHLOR 0.9% 1000 ML INJ 1,000 ML IV ONE ×2 (03:50→05:30)
[2017-10-28] MEDS ORDERED: SODIUM CHLORIDE 0.9% FLUSH 10 ML FLUSH IVF PRN (04:00)
[2017-10-28] MEDS ORDERED: HYDROmorphone HCL PF 1 MG/ML VIAL IVS ONE (04:00)
[2017-10-28] MEDS ORDERED: diphenhydrAMINE HCL 50 MG/ML VIAL IV PUSH ONE ×2 (04:00→05:30)
[2017-10-28] MEDS ORDERED: HYDROmorphone HCL PF 2 MG/ML VIAL ONE (04:25)
[2017-10-28] MEDS ORDERED: ONDANSETRON ODT 4 MG TAB PO ONE (04:30)
--- NOTE | 2017-10-28 04:30 | PD ---
HPI Chief Complaint: Sickle Cell Time Seen by Provider: 03:24 Travel History International Travel<30 days: No Contact w/Intl Traveler<30days: No Traveled to known affect area: No History of Present Illness HPI The patient is a 31 year old female who presents to the [facility] emergency department with a history of reported sickle cell related pain that began earlier in the evening. She reports that her usual pain medication regimen has not been helpful for it. The patient is followed by Dr. Rivas for her hematology care. She reports that she had a fever a few hours prior to arrival that was 101. She reports that she has had chills. She reports that she has back and extremity pain. She denies having any dysuria, hematuria, urinary urgency, or frequency. She denies having any cough or congestion. She denies having any sore throat. She denies having any headache or neck pain. On review of systems otherwise, she denies having any chest pain, shortness of breath, abdominal pain, vomiting, diarrhea, or neurologic symptoms. [facility] Past Medical History Narrative Medical The patient's past medical history is significant for sickle cell disease, frequent sickle cell pain crisis. Anemia: Yes Arthritis: No Asthma: No Autoimmune Disease: No Blood Disorders: Yes (sickle cell disease) Anxiety: No Depression: No Heart Rhythm Problems: No Cancer: No Cardiovascular Problems: No High Cholesterol: No Chemotherapy: No Chest Pain: No Congestive Heart Failure: No COPD: No Cerebrovascular Accident: No Diabetes: No Diminished Hearing: No Endocrine: No Gastrointestinal Disorders: Yes (GALLSTONES) GERD: No Genitourinary: No Headaches: Yes Hiatal Hernia: No Heparin Induced Thrombocytopen: No Immune Disorder: No Implanted Vascular Access Dvce: Yes (RIGHT CHEST ) Insomnia: Yes Kidney Stones: Yes Musculoskeletal: No Neurologic: No Psychiatric: No Reproductive: No Respiratory: No Immunizations Current: Yes Migraines: No Pneumonia: Yes Radiation Therapy: No Renal Failure: No Seizures: No Sickle Cell Disease: Yes Sleep Apnea: No Thyroid Disease: No Ulcer: No PNEUMOCCOCAL Vaccine (Year): 2 ?: Not : 1 Para: 1 Miscarriage: 1 : 0 Tubal Ligation: Yes Past Surgical History Narrative Surgical The patient's past surgical history is significant for Hqgeld-o-Gguu placement, cholecystectomy, Abdominal Surgery: Yes AICD: No Arteriovenous Shunt: No Body Medical Devices: right chest port Cardiac Surgery: No Section: Yes (X 1) Cholecystectomy: Yes Ear Surgery: No Endocrine Surgery: No Eye Surgery: No Genitourinary Surgery: No Gynecologic Surgery: Yes (tubal ligation) Hysterectomy: No Insulin Pump: No Joint Replacement: No Oral Surgery: Yes Pacemaker: No Thoracic Surgery: Yes (CHEST PORT ) Tonsillectomy: Yes Other Surgery: Yes (right chest port) Social History Alcohol Use: No Tobacco Use: No Substance Use: No Allergies-Medications (Allergen,Severity, Reaction): Coded Allergies: morphine (Verified Allergy, Severe, RASH, 10/28/17) *MDRO Multi-Drug Resistant Organism (Verified Adverse Reaction, Unknown, MRSA, 10/28/17) MRSA (blood) - 12/18/2004 MRSA PCR screen NEGATIVE 08/27/16 & 09/21/16 Cleared per Infection Control Reported Meds & Prescriptions Reported Meds & Active Scripts Active Cefuroxime (Cefuroxime Axetil) 500 Mg Tab 500 Mg PO BID 10 Days Gnp Senna Plus 8.6-50 mg (Sennosides-Docusate Sodium) 8.6 Mg-50 Mg Tab 1 Tab PO BID Reported Hydrea (Hydroxyurea) 500 Mg Cap 500 Mg PO DAILY Folic Acid 0.4 Mg Tab 400 Mcg PO DAILY Review of Systems Except as stated in HPI: all other systems reviewed are Neg General / Constitutional: Positive: Fever, Chills Eyes: No: Visual changes HENT: No: Headaches, Congestion, Neck Stiffness, Neck Pain Cardiovascular: No: Chest Pain or Discomfort Respiratory: No: Cough, Shortness of Breath Gastrointestinal: No: Nausea, Vomiting, Diarrhea, Abdominal Pain Genitourinary: No: Dysuria Musculoskeletal: Positive: Myalgias, Arthralgias, Pain, No: Limited ROM, Edema Skin: No Rash Neurologic: No: Weakness, Focal Abnormalities, Change in Mentation, Slurred Speech, Sensory Disturbance Psychiatric: No: Depression Endocrine: No: Polydipsia Hematologic/Lymphatic: No: Easy Bruising Physical Exam Narrative General: The patient is a well-developed well-nourished female in no acute distress. Head and Neck exam: Head is normocephalic atraumatic. Eyes: EOMI, pupils are equal round and reactive to light. Nose: Midline septum with pink mucous membranes Mouth: Dentition unremarkable. Moist mucus membranes. Posterior oropharynx is not erythematous. No tonsillar hypertrophy. Uvula midline. Airway patent. Neck: No palpable lymphadenopathy. No nuchal rigidity. No thyromegaly. Cardiovascular: Regular rate and rhythm without murmurs, gallops, or rubs. No pulse deficit to the extremities on simultaneous auscultation and palpation of her radial artery. Lungs: Clear to auscultation bilaterally. No wheezes, rhonchi, or rales. Abdomen: Soft, without tenderness to palpation in all 4 quadrants of the abdomen. No guarding, rebound, or rigidity. Normal bowel sounds are audible. No tenderness on palpation of McBurney's point. Extremities: No clubbing, cyanosis, or edema. 2+ pulses in all 4 extremities. No calf tenderness on palpation. No joint erythema or edema. She has full range of motion of all of her extremities. No rashes noted. Back: No spinous process tenderness to palpation. No step-off or crepitus. No erythema or ecchymosis. The patient reports having bilateral CVA tenderness on palpation. Neurologic Exam: Grossly nonfocal. Skin Exam: No rash noted. Intact skin that is warm and dry. Data Data Last Documented VS Vital Signs Date Time Temp Pulse Resp B/P (MAP) Pulse Ox O2 Delivery O2 Flow Rate FiO2 10/28/17 04:46 98 Room Air 10/28/17 03:18 99.8 116 18 119/77 (91) Orders Orders Basic Metabolic Panel (Bmp) (10/28/17 03:50) Complete Blood Count With Diff (10/28/17 03:50) Retic Count (10/28/17 03:50) Ecg Monitoring (10/28/17 03:50) Iv Access Insert/Monitor (10/28/17 03:50) Oximetry (10/28/17 03:50) Oxygen Administration (10/28/17 03:50) Sodium Chloride 0.9% Flush (Ns Flush) (10/28/17 04:00) Sodium Chlor 0.9% 1000 Ml Inj (Ns 1000 M (10/28/17 03:50) Hydromorphone Pf Inj (Dilaudid Pf Inj) (10/28/17 04:00) Diphenhydramine Inj (Benadryl Inj) (10/28/17 04:00) C-Reactive Protein (Crp) (10/28/17 04:16) Urinalysis - C+S If Indicated (10/28/17 04:16) Ondansetron Odt (Zofran Odt) (10/28/17 04:30) Ed Urine Pregnancytest Poc (10/28/17 04:25) Hydromorphone Pf Inj (Dilaudid Pf Inj) (10/28/17 04:25) Blood Culture (10/28/17 04:28) Urine Culture (10/28/17 04:41) Ceftriaxone Inj (Rocephin Inj) (10/28/17 05:30) Sodium Chlor 0.9% 1000 Ml Inj (Ns 1000 M (10/28/17 05:30) Hydromorphone Pf Inj (Dilaudid Pf Inj) (10/28/17 05:30) Diphenhydramine Inj (Benadryl Inj) (10/28/17 05:30) Labs Laboratory Tests Test 10/28/17 04:41 White Blood Count 10.7 TH/MM3 Red Blood Count 2.56 MIL/MM3 Hemoglobin 7.8 GM/DL Hematocrit 21.9 % Mean Corpuscular Volume 85.7 FL Mean Corpuscular Hemoglobin 30.3 PG Mean Corpuscular Hemoglobin Concent 35.4 % Red Cell Distribution Width 21.5 % Platelet Count 344 TH/MM3 Mean Platelet Volume 7.9 FL Neutrophils (%) (Auto) 46.6 % Lymphocytes (%) (Auto) 38.5 % Monocytes (%) (Auto) 10.7 % Eosinophils (%) (Auto) 3.4 % Basophils (%) (Auto) 0.8 % Neutrophils # (Auto) 5.0 TH/MM3 Lymphocytes # (Auto) 4.1 TH/MM3 Monocytes # (Auto) 1.2 TH/MM3 Eosinophils # (Auto) 0.4 TH/MM3 Basophils # (Auto) 0.1 TH/MM3 CBC Comment AUTO DIFF Reticulocyte Count 8.7 % Absolute Reticulocyte Count 221.5 MIL/L Hematology Comments Urine Color Day Urine Turbidity CLOUDY Urine pH 6.0 Urine Specific [place] 1.010 Urine Protein NEG mg/dL Urine Glucose (UA) NEG mg/dL Urine Ketones NEG mg/dL Urine Occult Blood SMALL Urine Nitrite POS Urine Bilirubin NEG Urine Urobilinogen 4.0 OR GREATER mg/dL Urine Leukocyte Esterase SMALL Urine RBC 1 /hpf Urine WBC 29 /hpf Urine Squamous Epithelial Cells 8 /hpf Urine Bacteria MANY /hpf Urine Mucus FEW /lpf Microscopic Urinalysis Comment CULTURE INDICATED Blood Urea Nitrogen 8 MG/DL Creatinine 0.66 MG/DL Random Glucose 90 MG/DL Calcium Level 8.3 MG/DL Sodium Level 138 MEQ/L Potassium Level 4.0 MEQ/L Chloride Level 105 MEQ/L Carbon Dioxide Level 23.0 MEQ/L Anion Gap 10 MEQ/L Estimat Glomerular Filtration Rate 125 ML/MIN C-Reactive Protein 0.95 MG/DL [facility] Medical Decision Making Medical Screen Exam Complete: Yes Emergency Medical Condition: Yes Medical Record Reviewed: Yes Differential Diagnosis Sickle cell pain crisis, versus pyelonephritis, versus musculoskeletal strain, versus arthritis, versus septic arthritis Narrative Course During the course of the patient's emergency department visit, the patient's history, examination, and differential diagnosis were reviewed with the patient. The patient was placed on a cardiac sonographer with oximetry and frequent blood pressure monitoring. The patient had IV access obtained and blood work sent for analysis. The patient was initially provided normal saline 1 L IV fluid bolus. Dilaudid 1mg IV, Benadryl 25 mg IV, zofran ODT. The patient's laboratory studies were reviewed and remarkable for a white count of 10.7, hemoglobin is stable at 7.8 compared to prior hemoglobin, platelets 344 with 10.7 monocytes, reticulocyte count 8.7, BMP is unremarkable except for calcium of 8.3, C-reactive protein 0.95, urinalysis shows cloudy urine small occult blood positive nitrite 4 urobilinogen small leukocyte esterase 1 RBC 29 WBCs, 8,'s epithelial cells, many bacteria, culture indicated. Review of the electronic medical record reveals that the patient last had a urinary tract infection that grew E. coli in September 2016. This was pansensitive. The patient was given Rocephin 1 g IV. The patient was given a second liter of normal saline IV fluids, a second dose of Dilaudid 1 mg IV, Benadryl 25 mg IV. The patient on reexamination reports feeling improved. The patient will be discharged home on cefuroxime for her urinary tract infection as in the past her UTI organism was sensitive to this. The patient is instructed regarding the importance of close follow-up with her care specialist, Dr. Rivas. She is instructed to call his office in the morning to notify him about her urinary tract infection and pain crisis. The patient is resting comfortably and feels better, is alert and in no distress. The patient's results and examination findings were discussed with the patient. The repeat examination is unremarkable and benign. The history, exam, diagnostic testing, and current condition do not suggest any significant pathology to warrant further testing, continued ED treatment, admission, or surgical evaluation at this point. The vital signs have been stable. The patient does not have uncontrollable pain, intractable vomiting, or other significant symptoms. The patient's condition is stable and appropriate for discharge. The patient will pursue further outpatient evaluation with a primary care physician or other designated or consulting physician as indicated in the discharge instructions. The patient is instructed to report back to the emergency department immediately for reexamination in the mean time if she develops any new or worsening signs or symptoms. The patient expressed understanding and was agreeable with this plan. Diagnosis Primary Impression: Sickle cell pain crisis Additional Impression: UTI (urinary tract infection) Qualified Codes: N39.0 - Urinary tract infection, site not specified Referrals: Primary Care Physician 2 days Patient Instructions: General Instructions, Sickle Cell Crisis (ED), Urinary Tract Infection in Women (ED) Med/Other Pt SpecificInfo: Prescription(s) given Scripts Cefuroxime (Cefuroxime) 500 Mg Tab 500 MG PO BID for Infection for 10 Days, #20 TAB 0 Refills Prov: Mignon Lin MD 10/28/17 Disposition: 01 DISCHARGE HOME Condition: Stable Mignon Lin MD Oct 28, 2017 04:30
[2017-10-28 04:46] VITALS: O2SAT 98
[2017-10-28 05:01] LABS: BACTERIA, URINE MANY /hpf; BILIRUBIN, URINE NEG (NEG); BLOOD, URINE SMALL (NEG); GLUCOSE,URINE NEG (NEG); KETONE, URINE NEG (NEG); MUCUS URINE FEW /lpf (OCC); NITRITE,URINE POS (NEG); SQUAMOUS EPITHELIAL CELL URINE 8 /hpf (0-5); URINE COLOR Amber (YELLW/STRAW); URINE LEUKOCYTE ESTERASE SMALL (NEG)
[2017-10-28 05:07] LABS: BASOPHIL # 0.1 TH/MM3 (0-0.2); BASOPHIL % 0.8 % (0.0-2.0); EOSINOPHIL # 0.4 TH/MM3 (0-0.4); EOSINOPHIL % 3.4 % (0.0-4.0); HEMATOCRIT 21.9 % (35.0-46.0); HEMOGLOBIN 7.8 GM/DL (11.6-15.3); LYMPH % 38.5 % (9.0-44.0); LYMPHOCYTE # 4.1 TH/MM3 (1.0-4.8); MEAN CELL VOLUME 85.7 FL (80.0-100.0); MEAN CORPUSCULAR HEMOGLOBIN 30.3 PG (27.0-34.0); MEAN CORPUSCULAR HGB CONC 35.4 % (32.0-36.0); MEAN PLATELET VOLUME 7.9 FL (7.0-11.0); MONO % 10.7 % (0.0-8.0); MONOCYTE # 1.2 TH/MM3 (0-0.9); NEUT % 46.6 % (16.0-70.0); PLATELET COUNT 344 TH/MM3 (150-450); RED BLOOD COUNT 2.56 MIL/MM3 (4.00-5.30); RED CELL DISTRIBUTION WIDTH 21.5 % (11.6-17.2); RETIC # 221.5 MIL/L (20.0-150.0); RETIC % 8.7 % (0.4-3.0); WHITE BLOOD COUNT 10.7 TH/MM3 (4.0-11.0)
[2017-10-28 05:26] LABS: CALCIUM 8.3 MG/DL (8.5-10.1); CREATININE 0.66 MG/DL (0.50-1.00)
[2017-10-28] MEDS ORDERED: cefTRIAXone INJ 1,000 MG in SODIUM CHLORIDE 0.9% INJ 100 ML IV ONE (05:30)
[2017-10-28] MEDS ORDERED: HYDROmorphone HCL PF 2 MG/ML VIAL IV PUSH ONE (05:30)
[2017-10-28] MEDS ORDERED: CEFU1TAB20 PO (05:49)
[2017-10-28 06:49] LABS: CORRECTED NUCLEATED RBC 8 /100 WBC (0-0); LYMPHOCYTES 33 % (9-44); MONOCYTES 10 % (0-8); NEUTROPHIL # MANUAL DIFF 5.9 TH/MM3 (1.8-7.7); NUCLEATED RED BLOOD CELL 8 (0-0); POLYS (SEG NEUTROPHILS) 55 % (16-70)
[2017-10-28 06:50] LABS: POLYCHROMASIA 3.8 % (0.0-1.9); SICKLE CELLS 2+ (NORMAL); TARGET CELLS 1+ (NORMAL)
[2017-11-04] MEDS ORDERED: HYDR-3583 PO (09:46)
== END 2017-10-28 06:38 | disposition home or self-care (01) ==
LOC: NEPE 03:17
DX: D57.00 Hb-SS disease with crisis, unspecified (principal); N39.0 Urinary tract infection, site not specified; B96.20 Unspecified Escherichia coli [E. coli] as the cause of diseases classified elsewhere; G47.00 Insomnia, unspecified; Z87.442 Personal history of urinary calculi; Z79.899 Other long term (current) drug therapy; Z88.5 Allergy status to narcotic agent
CPT/HCPCS: 80048; 81001; 84703; 85007; 85027; 85044; 86140; 87040; 87077; 87086; 87186; 96361; 96365; 96375; 96376; 99284; J0696; J1170; J1200; J1642; J7030

== ENCOUNTER 2017-11-04 03:36 | Inpatient (IN) ==
[2017-11-08] MEDS ORDERED: HYDROmorphone PF Inj 2 MG/ML Vial ONE (23:59)
[2017-11-09] MEDS ORDERED: Acetaminophen 325 MG Tablet PO PRN (00:46)
[2017-11-09] MEDS ORDERED: HYDROmorphone PF Inj 2 MG/ML Vial IV.PUSH PRN (00:50)
[2017-11-09] MEDS: HYDROmorphone PF Inj 2 MG/ML Vial IV.PUSH PRN ×2 (03:05→06:05)
[2017-11-09] MEDS: Sod Chloride 0.9% Inj 1,000 ML IV.SIG SCH ×2 (04:22→13:23)
[2017-11-09 06:50] LABS: Baso # (Auto) 0.1 th/mm3 (0.0-0.2); Baso % (Auto) 0.8 % (0.0-2.0); Eos # (Auto) 0.6 th/mm3 (0.0-0.4); Eos % (Auto) 8.1 % (0.0-4.0); Hematocrit 27.8 % (35.0-46.0); Hemoglobin 9.9 gm/dL (11.6-15.3); Lymph # (Auto) 3.5 th/mm3 (1.0-4.8); Lymph % (Auto) 46.9 % (9.0-44.0); Mean Corpuscular HGB Conc 35.8 % (32.0-36.0); Mean Corpuscular Hemoglobin 30.2 pg (27.0-34.0); Mean Corpuscular Volume 84.3 fL (80.0-100.0); Mean Platelet Volume 8.1 fL (7.0-11.0); Mono # (Auto) 0.9 th/mm3 (0.0-0.9); Neut # (Auto) 2.4 th/mm3 (1.8-7.7); Neut % (Auto) 32.2 % (16.0-70.0); Platelet Count 323 th/mm3 (150-450); Red Blood Count 3.29 mil/mm3 (4.00-5.30); Red Cell Distribution Width 19.4 % (11.6-17.2); White Blood Count 7.4 th/mm3 (4.0-11.0)
[2017-11-09 07:49] LABS: Anion Gap 7 meq/L (5-15); Blood Urea Nitrogen 7 mg/dL (7-18); Calcium 7.9 mg/dL (8.5-10.1); Carbon Dioxide 25.5 meq/L (21.0-32.0); Chloride 106 meq/L (98-107); Glomerular Filtration Rate Greater Than 89 mL/min (>89); Glucose,Random 93 mg/dL (74-106); Lactate Dehydrogenase 1353 U/L (84-246); Sodium 138 meq/L (136-145)
[2017-11-09 07:59] LABS: Potassium 4.3 meq/L (3.5-5.1)
[2017-11-09 08:52] LABS: Acanthocytes 1+; Eosinophils 9 % (0-4); Howell-Jolly Bodies Present; Lymphocytes 45 % (9-44); Monocytes 7 % (0-8); Platelet Estimate Normal (Normal); Platelet Morphology Normal (Normal); Sickle Cells 2+; Tallied Nucleated RBC 1 (0-0)
[2017-11-09 08:53] LABS: Pappenheimer Bodies Present
[2017-11-09] MEDS ORDERED: Lidocaine 5% Patch T-DERMAL SCH (09:00)
[2017-11-09] MEDS ORDERED: Hydroxyurea 500 MG Capsule PO SCH (09:00)
[2017-11-09] MEDS ORDERED: Folic Acid 1 MG Tablet PO SCH (09:00)
[2017-11-09] MEDS ORDERED: Docusate Sodium 100 MG Capsule PO SCH (09:00)
[2017-11-09] MEDS ORDERED: Heparin Central Flush 100 UNIT/ML 5 ML Vial IV.FLUSH ONE (14:00)
[2017-11-09] MEDS ORDERED: HYDROmorphone PF Inj 2 MG/ML Vial IV.PUSH ONE (14:00)
--- NOTE | 2017-11-09 14:36 | P.DS ---
Date of admission: 11/04/17 08:20 Primary care physician: No Primary Care Physician Brief History from admission: 32-year-old female with a history of sickle cell disease presents to the emergency room complaining of excruciating pain over as she feels she is in pain crisis. She states that she went to her cruise vacation 4 days ago and when she returned developed extreme pain. She denies any symptoms of coughing, diarrhea, dysuria, nor any fevers or chills. She reports she also start her menstrual cycle. She states her hemoglobin is usually around 8-9 range. She is currently receiving 2 units of packed red blood cell down in the emergency room. She reports despite taking her chronic [place] tens she reports the pain is not improved. DS: Diagnosis - Discharge Diagnosis (1) Sickle cell crisis Status: Acute DS: Summary Hospital Course: Patient was admitted, started on IV pain control. Due to claims of uncontrolled pain, hematology was consulted and advised for diluted IV pain medication infusion as well as blood transfusion. Objectively the patient was observed to be doing well on the latter half of her hospitalization. Remained afebrile and was tolerating p.o. intake well. Patient expressed substantial resistance to transitioning to oral pain meds but eventually agreed. Patient has met maximal benefit from hospitalization is clinically stable for discharge. - Time Spent with Patient Total time spent providing and/or coordinating discharge services: Less than 30 minutes Exam Vital signs: Vital Signs 11/09/17 02:46 11/09/17 08:00 Temperature 98.3 F Pulse Rate 85 Respiratory Rate 18 Blood Pressure 100/61 88/54 L Pulse Oximetry 93 L Intake & Output 11/08/17 11/09/17 11/09/17 18:59 06:59 18:59 Intake Total 480 / 480 1000 / 1000 Balance 480 / 480 1000 / 1000 Weight 70.9 kg Intake: IV 1000 / 1000 NS Inj 1,000 ML @ 100 mls/hr IV 1000 / 1000 .SIG .Q10H CIRO Rx#:[id number] Oral 480 / 480 Other: # Voids 4 Narrative: lying in bed, NAD, abd soft, NT, ND clear lungs BL, unlabored breathing Results Procedures completed during hospitalization: . Labs on day of discharge: Labs from last 24 hours 11/09/17 11/09/17 11/08/17 06:00 06:00 06:20 WBC 7.4 RBC 3.29 L Hgb 9.9 L Hct 27.8 L MCV 84.3 MCH 30.2 MCHC 35.8 RDW 19.4 H Plt Count 323 MPV 8.1 Prelim Diff (Auto) Slide review pending Neut % (Auto) 32.2 Lymph % (Auto) 46.9 H [place] % (Auto) 12.0 H Eos % (Auto) 8.1 H Baso % (Auto) 0.8 Neut # (Auto) 2.4 Lymph # (Auto) 3.5 [place] # (Auto) 0.9 Eos # (Auto) 0.6 H Baso # (Auto) 0.1 CBC Comment WBC Differential Manual diff final Total Counted Neutrophils % (Manual) Seg Neuts % (Manual) 39 Band Neutrophils % Lymphocytes % Lymphocytes % (Manual) 45 H Monocytes % Monocytes % (Manual) 7 Eosinophils % Eosinophils % (Manual) 9 H Basophils % Neutrophils # (Manual) Abs Neuts (Manual) 2.9 Nucleated RBCs Nucleated RBCs/100 WBC 1 H Differential Comment . Platelet Estimate Normal Platelet Morphology Normal Plt Morphology Comment Polychromasia Pappenheimer Bodies Present H Sickle Cells 2+ H Ovalocytes [place] Bodies Present H Acanthocytes (Spur) 1+ H Keratocytes RBC Morph Comment Retic Count Absolute Retic Sodium 138 Potassium 4.3 Chloride 106 Carbon Dioxide 25.5 Anion Gap 7 BUN 7 Creatinine 0.55 Estimated GFR Greater than 89 Random Glucose 93 Calcium 7.9 L Phosphorus Magnesium Ferritin Total Bilirubin 1.9 H Direct Bilirubin 0.2 Indirect Bilirubin 1.7 H AST 87 H ALT 18 Alkaline Phosphatase 124 H Lactate Dehydrogenase 1353 H 1222 H Total Protein 7.6 Albumin 3.1 L 11/07/17 11/07/17 11/07/17 04:59 04:59 04:59 WBC 7.2 RBC 3.65 L Hgb 11.0 L Hct 31.4 L MCV 86.1 MCH 30.3 MCHC 35.1 RDW 20.3 H Plt Count 361 MPV 8.7 Prelim Diff (Auto) Neut % (Auto) 34.7 Lymph % (Auto) 44.4 H [place] % (Auto) 11.7 H Eos % (Auto) 8.6 H Baso % (Auto) 0.6 Neut # (Auto) 2.5 Lymph # (Auto) 3.2 [place] # (Auto) 0.8 Eos # (Auto) 0.6 H Baso # (Auto) 0.0 CBC Comment AUTO DIFF WBC Differential Total Counted 100 Neutrophils % (Manual) 33 Seg Neuts % (Manual) Band Neutrophils % Lymphocytes % 43 Lymphocytes % (Manual) Monocytes % 13 H Monocytes % (Manual) Eosinophils % 10 H Eosinophils % (Manual) Basophils % 1 Neutrophils # (Manual) 2.4 Abs Neuts (Manual) Nucleated RBCs 5 H Nucleated RBCs/100 WBC Differential Comment FINAL DIFF MANUAL Platelet Estimate NORMAL Platelet Morphology Plt Morphology Comment NORMAL Polychromasia Pappenheimer Bodies Sickle Cells 2+ H Ovalocytes 1+ H [place] Bodies PRESENT Acanthocytes (Spur) Keratocytes OCC H RBC Morph Comment Retic Count 4.5 H Absolute Retic 162.2 H Sodium Potassium Chloride Carbon Dioxide Anion Gap BUN Creatinine Estimated GFR Random Glucose Calcium Phosphorus Magnesium Ferritin 403 H Total Bilirubin 2.3 H Direct Bilirubin Indirect Bilirubin AST ALT Alkaline Phosphatase Lactate Dehydrogenase 1143 H Total Protein Albumin 11/06/17 11/06/17 05:02 05:02 WBC 7.3 RBC 3.58 L Hgb 10.6 L Hct 30.1 L MCV 83.9 MCH 29.7 MCHC 35.4 RDW 20.3 H Plt Count 361 MPV 8.0 Prelim Diff (Auto) Neut % (Auto) 30.2 Lymph % (Auto) 50.9 H [place] % (Auto) 8.8 H Eos % (Auto) 9.7 H Baso % (Auto) 0.4 Neut # (Auto) 2.2 Lymph # (Auto) 3.7 [place] # (Auto) 0.6 Eos # (Auto) 0.7 H Baso # (Auto) 0.0 CBC Comment AUTO DIFF WBC Differential Total Counted 100 Neutrophils % (Manual) 34 Seg Neuts % (Manual) Band Neutrophils % 1 Lymphocytes % 50 H Lymphocytes % (Manual) Monocytes % 8 Monocytes % (Manual) Eosinophils % 7 H Eosinophils % (Manual) Basophils % Neutrophils # (Manual) 2.6 Abs Neuts (Manual) Nucleated RBCs 8 H Nucleated RBCs/100 WBC Differential Comment FINAL DIFF MANUAL Platelet Estimate NORMAL Platelet Morphology Plt Morphology Comment NORMAL Polychromasia 2.6 H [place] Bodies Sickle Cells 2+ H Ovalocytes [place] Bodies Acanthocytes ([place]) Keratocytes RBC Morph Comment Retic Count Absolute Retic Sodium 140 Potassium 4.2 Chloride 110 H Carbon Dioxide 21.4 Anion Gap 9 BUN 6 L Creatinine 0.47 L Estimated GFR 184 Random Glucose 82 Calcium 8.4 L Phosphorus 3.9 Magnesium 1.8 Ferritin Total Bilirubin 2.2 H Direct Bilirubin 0.4 H Indirect Bilirubin 1.8 H AST 75 H ALT 19 Alkaline Phosphatase 120 H Lactate Dehydrogenase Total Protein 7.6 D Albumin 3.2 L Discharge Plan - Discharge Disposition Patient Disposition: 01 Discharge Home - Discharge Condition Condition: Fair - Discharge Order Discharge Orders: Discharge Order (Routine); Ordered 11/09/17 Ordered By: Vance Valencia - Physicians Team Primary Care Provider: Primary Care Dora Akins Attending Provider: Vance Valencia Other Providers: Cade Pineda MD - Rxs /Orders / Referrals /Forms Prescriptions: New hydroxyurea 500 mg Capsule 500 mg PO DAILY RF: 0 Continue folic acid 400 mcg Tablet 0.4 mg PO DAILY hydrocodone-acetaminophen 10-325 mg Tablet 1 tab PO Q4H PRN (Reason: Pain) Referrals: Primary Care Dora Akins [Primary Care Provider] - See Instructions
== END 2017-11-09 14:15 | disposition home or self-care (01) ==
LOC: UNDODISIN → N07 08:20
PROVIDERS: ADMIT Hospitalist; ATTEND Hospitalist

== ENCOUNTER 2017-11-28 03:08 | Inpatient (IN) ==
[2017-11-28] MEDS ORDERED: Ketorolac Inj 30 MG/ML (IVP) Vial IV.PUSH ONE (03:54)
[2017-11-28] MEDS ORDERED: HYDROmorphone PF Inj 1 MG/ML Ampul IV.PUSH ONE ×2 (03:54→05:18)
[2017-11-28] MEDS ORDERED: Sod Chloride 0.9% Inj 1,000 ML IV.SIG SCH (04:00)
[2017-11-28] MEDS ORDERED: HYDROmorphone PF Inj 2 MG/ML Vial ONE (04:05)
--- NOTE | 2017-11-28 04:27 | ED ---
HPI General Chief Complaint: Sickle Cell Stated Complaint: Sickle Cell Time Seen by Provider: 11/28/17 03:36 Source: patient and old records reviewed Mode of arrival: ambulatory Limitations: no limitations History of Present Illness HPI Narrative: This is a sickle cell patient who is seen here frequently who presents with a chief complaint of fever and pain. Onset was 2 days ago. T- max is 100.7. She reports an associated cough. MD complaint: fever and other (Pain in her legs, back and chest) Onset (ago): day(s) (2) Maximum Temperature: 100.7 F Associated symptoms: sore throat and cough Relieving factors: acetaminophen Exacerbating factors: nothing Treatments prior to arrival fever: acetaminophen Related Data Home Medications Medication Instructions Recorded Confirmed folic acid 0.4 mg PO DAILY 11/08/17 11/18/17 hydrocodone-acetaminophen 1 tab PO Q4H PRN 11/08/17 11/18/17 Previous Rx's Medication Instructions Recorded hydroxyurea 500 mg PO DAILY cap 11/09/17 Allergies Allergy/AdvReac Type Severity Reaction Status Date / Time morphine Allergy Severe RASH Verified 11/28/17 03:29 Review of Systems Except as stated in HPI: all other systems reviewed are negative PMFSH History History Provided By: Patient Medical History Medical History Port-A-Cath in place (Acute) Tubal ligation status (Acute) Sickle cell anemia (Acute) Surgical History Surgical History Hx of cholecystectomy (Acute) Social History Social History Substance History: No History of Abuse Second Hand Smoke Exposure: No Smoking Status: Never smoker How Often Do You Have a Drink Containing Alcohol: Never Recent Travel in [facility] within the Last 8 Weeks: No Recent Out of Country Travel within the Last 8 Weeks: No Exam Const General: cooperative, healthy appearing, comfortable and no acute distress HENCT Head: normal to inspection, normocephalic and atraumatic Eyes General: appearance normal, both eyes and all related structures Conjunctivae: conjunctivae normal Sclera: sclerae normal Neck Neck: normal visual inspection, full ROM and supple Chest Chest: normal inspection of the chest Resp Effort & Inspection: normal respiratory effort and able to speak in complete sentences Auscultation: clear to auscultation bilaterally Cardio Rate: regular rate Rhythm: regular rhythm GI Inspection: normal to inspection Palpation: soft Back/Spine/Pelvis Cervical Spine: cervical ROM normal Thoracic/Lumbar Spine: thoraco-lumbar ROM normal Skin General: no rashes or lesions noted and turgor normal Neuro General: alert, awake, oriented x3, moves all extremities and CN's II-XI intact bilaterally Extrem General: normal to inspection and full ROM Psych Appearance: grossly normal Mental Status: mental status grossly normal Speech and Movement: speech and movement normal Mood: congruent mood Affect: normal affect Attitude: cooperative Thought Process: normal Thought Content: normal Judgment: judgment good Course Initial Documented Vital Signs Temperature 100.2 F H 11/28/17 03:25 Pulse Rate 101 H 11/28/17 03:25 Respiratory Rate 20 11/28/17 03:25 Blood Pressure 115/70 11/28/17 03:25 Pulse Oximetry 96 11/28/17 03:25 Last Documented Vital Signs Temperature 100.2 F H 11/28/17 03:25 Pulse Rate 101 H 11/28/17 03:25 Respiratory Rate 20 11/28/17 03:25 Blood Pressure 115/70 11/28/17 03:25 Pulse Oximetry 96 11/28/17 03:25 Medical Decision Making MDM Narrative Medical decision making narrative: This patient presents complaining with pain associated with sickle cell as well as fever. T-max is 100.7. She reports an associated cough. She is being treated with IV fluids, IV Toradol, IV Benadryl, IV Dilaudid. The results of her chest x-ray have been discussed with the patient. She will be given a dose of Rocephin and Zithromax here. The patient initially stated that she would like to go home. She now states that she feels that she should be admitted. Medical Records Medical records reviewed: Yes I reviewed the patient's medical records. This patient's most recent visit here was on 11/23. She is seen here very frequently for complications of her sickle cell disease. Lab Data Lab results reviewed: Yes I reviewed the patient's lab results. Result diagrams: 11/28/17 04:25 11/28/17 04:25 Lab Results 11/28/17 11/28/17 Range/Units 04:25 04:25 WBC 11.2 H (4.0-11.0) th/mm3 RBC 2.76 L (4.00-5.30) mil/mm3 Hgb 8.4 L (11.6-15.3) gm/dL Hct 23.9 L (35.0-46.0) % MCV 86.7 (80.0-100.0) fL MCH 30.4 (27.0-34.0) pg MCHC 35.0 (32.0-36.0) % RDW 18.9 H (11.6-17.2) % Plt Count 462 H (150-450) th/mm3 MPV 7.8 (7.0-11.0) fL Prelim Diff (Auto) Slide review pending Neut % (Auto) 45.8 (16.0-70.0) % Lymph % (Auto) 40.5 (9.0-44.0) % [place] % (Auto) 10.4 H (0.0-8.0) % Eos % (Auto) 2.5 (0.0-4.0) % Baso % (Auto) 0.8 (0.0-2.0) % Neut # (Auto) 5.1 (1.8-7.7) th/mm3 Lymph # (Auto) 4.5 (1.0-4.8) th/mm3 [place] # (Auto) 1.2 H (0.0-0.9) th/mm3 Eos # (Auto) 0.3 (0.0-0.4) th/mm3 Baso # (Auto) 0.1 (0.0-0.2) th/mm3 WBC Differential Manual diff final Seg Neuts % (Manual) 50 (16-70) % Lymphocytes % (Manual) 37 (9-44) % Monocytes % (Manual) 8 (0-8) % Eosinophils % (Manual) 4 (0-4) % Basophils % (Manual) 1 (0-2) % Abs Neuts (Manual) 5.6 (1.8-7.7) th/mm3 Nucleated RBCs/100 WBC 5 H (0-0) /100 WBC Differential Comment . Platelet Estimate High H (Normal) Platelet Morphology Normal (Normal) Polychromasia 5.3 H (0.0-1.9) % Sickle Cells 1+ H (None) [place] Bodies Present H (None) Acanthocytes (Spur) Occ H (None) Keratocytes Occ H (None) Retic Count 11.1 H (0.4-3.0) % Absolute Retic 304.9 H (20.0-150.0) mil/L Sodium 140 (136-145) meq/L Potassium 3.7 (3.5-5.1) meq/L Chloride 108 H (98-107) meq/L Carbon Dioxide 25.1 (21.0-32.0) meq/L Anion Gap 7 (5-15) meq/L BUN 7 (7-18) mg/dL Creatinine 0.61 (0.50-1.00) mg/dL Estimated GFR Greater than 89 (>89) mL/min Random Glucose 89 (74-106) mg/dL Calcium 8.1 L (8.5-10.1) mg/dL Imaging Data Attestation: I personally reviewed and interpreted this imaging study as follows : Radiologist's impression: Chest X-Ray 11/28/17 03:54 CONCLUSION: Patchy pneumonia of the right lung, mostly in the lower lobe. Discharge Plan Discharge Disposition Patient Disposition: 30 Still Patient Discharge Condition Condition: Stable Discharge Details Anticipated Discharge Date: 11/29/17 Diagnosis: Pneumonia, Acute sickle cell crisis Physicians Team ED Provider: Inna Delacruz Primary Care Provider: Primary Care Dora Akins Rxs /Orders / Referrals /Forms Prescriptions: No Action folic acid 400 mcg Tablet 0.4 mg PO DAILY RF: 0 hydrocodone-acetaminophen 10-325 mg Tablet 1 tab PO Q4H PRN (Reason: Pain) RF: 0 hydroxyurea 500 mg Capsule 500 mg PO DAILY RF: 0 Discharge Instructions Patient Printed Instructions: Sickle Cell Crisis (ED), Community Acquired Pneumonia (DC) Status ED Status: With Doctor
[2017-11-28 04:38] LABS: Baso # (Auto) 0.1 th/mm3 (0.0-0.2); Baso % (Auto) 0.8 % (0.0-2.0); Eos # (Auto) 0.3 th/mm3 (0.0-0.4); Eos % (Auto) 2.5 % (0.0-4.0); Hematocrit 23.9 % (35.0-46.0); Hemoglobin 8.4 gm/dL (11.6-15.3); Lymph # (Auto) 4.5 th/mm3 (1.0-4.8); Lymph % (Auto) 40.5 % (9.0-44.0); Mean Corpuscular Hemoglobin 30.4 pg (27.0-34.0); Mean Corpuscular Volume 86.7 fL (80.0-100.0); Mean Platelet Volume 7.8 fL (7.0-11.0); Mono # (Auto) 1.2 th/mm3 (0.0-0.9); Mono % (Auto) 10.4 % (0.0-8.0); Neut # (Auto) 5.1 th/mm3 (1.8-7.7); Neut % (Auto) 45.8 % (16.0-70.0); Platelet Count 462 th/mm3 (150-450); Red Blood Count 2.76 mil/mm3 (4.00-5.30); Red Cell Distribution Width 18.9 % (11.6-17.2); Reticulocyte Percent 11.1 % (0.4-3.0); White Blood Count 11.2 th/mm3 (4.0-11.0)
[2017-11-28 05:01] LABS: Anion Gap 7 meq/L (5-15); Blood Urea Nitrogen 7 mg/dL (7-18); Calcium 8.1 mg/dL (8.5-10.1); Carbon Dioxide 25.1 meq/L (21.0-32.0); Chloride 108 meq/L (98-107); Glomerular Filtration Rate Greater Than 89 mL/min (>89); Glucose,Random 89 mg/dL (74-106); Potassium 3.7 meq/L (3.5-5.1); Sodium 140 meq/L (136-145)
--- NOTE | 2017-11-28 05:09 | XR ---
EXAM DATE: 11/28/2017 4:55 AM EDT AGE/SEX: 32 years / Female INDICATIONS: . Fever. CLINICAL DATA: This is the patient's initial encounter. Patient reports that signs and symptoms have been present for 1 day and indicates a pain score of 3/10. MEDICAL/SURGICAL HISTORY: . Sickle Cell. None. [place]PAR[place] [facility] [place]. . FINDINGS: Patchy infiltrate seen right lung, mostly at the lower lobe base. No pleural effusion. No pneumothora x. Heart size stable, within normal limits. Right subclavian Lblruc-o-Chvn catheter again noted. CONCLUSION: Patchy pneumonia of the right lung, mostly in the lower lobe. Electronically signed by: Michael Downey MD 11/28/2017 5:08 AM EDT
[2017-11-28] MEDS ORDERED: Azithromycin Inj 500 MG in Sodium Chlor 0.9% Inj 250 ML IV.SIG ONE (05:15)
[2017-11-28 05:17] LABS: Eosinophils 4 % (0-4); Lymphocytes 37 % (9-44); Monocytes 8 % (0-8); Tallied Nucleated RBC 5 (0-0)
[2017-11-28 05:18] LABS: Sickle Cells 1+
[2017-11-28 05:19] LABS: Acanthocytes Occ; Howell-Jolly Bodies Present
[2017-11-28 05:22] LABS: Polychromasia 5.3 % (0.0-1.9)
[2017-11-28 05:23] LABS: Platelet Morphology Normal (Normal)
[2017-11-28] MEDS ORDERED: Acetaminophen 325 MG Tablet PO PRN ×2 (06:04→10:04)
[2017-11-28] MEDS ORDERED: Bisacodyl 10 MG Supp RECTAL PRN (06:04)
[2017-11-28] MEDS ORDERED: Naloxone Inj 0.4 MG/ML Vial IV.PUSH PRN (10:04)
[2017-11-28] MEDS ORDERED: HYDROmorphone PF Inj 2 MG/ML Vial IV.PUSH PRN (10:45)
--- NOTE | 2017-11-28 11:44 | P.HPIM ---
History of Present Illness Primary Care Physician: No Primary Care Physician History of Present Illness: 32-year-old female with history of sickle cell anemia with chronic changes to lumbar spine who presents with a 3 day history of sore throat, fevers up to 100.8, worsening continuous sharp nonradiating pain in lumbar and thoracic spine. She denies any cough. Denies any chest pain, shortness of breath, nausea, vomiting, diarrhea, constipation, dysuria. Review of Systems Performed and negative except for HPI and past medical history. PMF - History History Provided By: Patient - Medical History Medical History: Medical History (Last Updated 11/28/17 @ 11:42 by Wan Lechuga MD) Port-A-Cath in place (Acute) Tubal ligation status (Acute) Sickle cell anemia (Acute) Nephrolithiasis - Surgical History Surgical History: Surgical History (Last Updated 11/28/17 @ 11:42 by Wan Lechuga MD) Hx of tonsillectomy Hx of cholecystectomy - Family History Family History: Family History (Last Updated 11/28/17 @ 11:42 by Wan Lechuga MD) Daughter Sickle cell anemia Mother Sickle cell trait Father Sickle cell trait - Tobacco History Second Hand Smoke Exposure: No Tobacco Use In Past 30 Days: No Smoking Status: Never smoker - Alcohol History How Often Do You Have a Drink Containing Alcohol: Never - Substance Use History Substance History: No History of Abuse - Travel History Recent Travel in the [place] Within the Last 8 Weeks: No Recent Travel Out of the Country Within the Last 8 Weeks: No - Immunization History Tetanus Immunization: Unsure Hx Influenza Vaccine This Season: Yes Medications and Allergies Active Medications: Active Medications Acetaminophen (Tylenol) 650 mg PO Q4H PRN PRN Reason: Temp > 100.4 Acetaminophen (Tylenol) 650 mg PO Q6HR PRN PRN Reason: PAIN SCALE 1 TO 2 Hydrocodone Bitart/Acetaminophen ([place] 10/325) 1 tab PO Q4H PRN PRN Reason: PAIN SCALE 6 TO 10 Hydrocodone Bitart/Acetaminophen ([place] 5/325) 1 tab PO Q4H PRN PRN Reason: PAIN SCALE 3 TO 5 Al Hydroxide/Mg Hydroxide (Milk Of Magnesia Liq) 30 ml PO Q12H PRN PRN Reason: Mild Constipation Bisacodyl (Dulcolax Supp) 10 mg RECTAL DAILY PRN PRN Reason: SEVERE CONSITIPATION Diphenhydramine HCl (Benadryl Inj) 25 mg IV.PUSH Q3HR PRN PRN Reason: ITCHING Hydromorphone HCl (Dilaudid Pf Inj) 1 mg IV.PUSH Q3H PRN PRN Reason: BREAKTHROUGH PAIN Azithromycin 500 mg/ Sodium (Chloride) 250 mls @ 250 mls/hr IV.SIG Q24H CIRO Sodium Chloride (Ns Inj) 1,000 mls @ 100 mls/hr IV.CONT .Q10H CIRO Ceftriaxone Sodium 1,000 mg/ (Sodium Chloride) 100 mls @ 200 mls/hr IV.SIG Q24H CIRO Lactulose (Lactulose Liq) 30 ml PO DAILY PRN PRN Reason: SEVERE CONSITIPATION Naloxone HCl (Narcan Inj) 0.4 mg IV.PUSH UNSCH PRN PRN Reason: SEE LABEL COMMENTS Ondansetron HCl (Zofran Inj) 4 mg IV.PUSH Q6H PRN PRN Reason: NAUSEA OR VOMITING Sennosides (Senokot) 17.2 mg PO Q12H PRN PRN Reason: Moderate Constipation Allergies Allergy/AdvReac Type Severity Reaction Status Date / Time morphine Allergy Severe RASH Verified 11/28/17 03:29 Home Medications Medication Instructions Recorded Confirmed Type folic acid 0.4 mg PO DAILY 11/08/17 11/18/17 History hydrocodone-acetaminophen 1 tab PO Q4H PRN 11/08/17 11/18/17 History Exam Vital signs: Vital Signs 11/28/17 03:25 11/28/17 08:00 Temperature 100.2 F H 98.7 F Pulse Rate 101 H 84 Respiratory Rate 20 16 Blood Pressure 115/70 101/59 L Pulse Oximetry 96 93 L Intake & Output 11/27/17 11/28/17 11/28/17 18:59 06:59 18:59 Weight 57.153 kg Narrative: GENERAL: Patient sitting up in bed. Appears uncomfortable. SKIN: Warm and dry. HEAD: Atraumatic. Normocephalic. EYES: Pupils equal and round. No scleral icterus. No injection or drainage. ENT: No nasal bleeding or discharge. Mucous membranes pink and moist. NECK: Trachea midline. No JVD. CARDIOVASCULAR: Regular rate and rhythm. RESPIRATORY: No accessory muscle use. Clear to auscultation. Breath sounds equal bilaterally. GASTROINTESTINAL: Abdomen soft, non-tender, nondistended. Hepatic and splenic margins not palpable. MUSCULOSKELETAL: Extremities without clubbing, cyanosis, or edema. No obvious deformities. NEUROLOGICAL: Awake and alert. No obvious cranial nerve deficits. Motor grossly within normal limits. Five out of 5 muscle strength in the arms and legs. Normal speech. Tenderness palpation in the lumbar spine. No CVA tenderness. PSYCHIATRIC: Appropriate mood and affect; insight and judgment normal. Results - Labs CBC & Chem 7: 11/28/17 04:25 11/28/17 04:25 Labs: Short CBC 11/28/17 Range/Units 04:25 WBC 11.2 H (4.0-11.0) th/mm3 Hgb 8.4 L (11.6-15.3) gm/dL Hct 23.9 L (35.0-46.0) % Plt Count 462 H (150-450) th/mm3 BMP 11/28/17 04:25 Sodium 140 Potassium 3.7 Chloride 108 H Carbon Dioxide 25.1 BUN 7 Creatinine 0.61 Calcium 8.1 L - Imaging Impressions Chest X-Ray 11/28/17 03:54 CONCLUSION: Patchy pneumonia of the right lung, mostly in the lower lobe. Caprini VTE Risk Assessment Caprini VTE Risk Assessment: Moderate/High Risk (score >= 2) Caprini Risk Assessment Model: Point Value = 1 Point Value = 2 Point Value = 3 Point Value = 5 Age 41-60 Minor surgery BMI > 25 kg/m2 Swollen legs Varicose veins or History of unexplained or recurrent spontaneous Oral contraceptives or hormone replacement Sepsis (< 1 month) Serious lung disease, including pneumonia (< 1 month) Abnormal pulmonary function Acute myocardial infarction Congestive heart failure (< 1 month) History of inflammatory bowel disease Medical patient at bed rest Age 61-74 Arthroscopic surgery Major open surgery (> 45 min) Laparoscopic surgery (> 45 min) Malignancy Confined to bed (> 72 hours) Immobilizing plaster cast Central venous access Age >= 75 History of VTE Family history of VTE Factor V Leiden Prothrombin [id number] Lupus anticoagulant Anticardiolipin antibodies Elevated serum homocysteine Heparin-induced thrombocytopenia Other congenital or acquired thrombophilia Stroke (< 1 month) Elective arthroplasty Hip, pelvis, or leg fracture Acute spinal cord injury (< 1 month) Prophylaxis Regimen: Total Risk Factor Score Risk Level Prophylaxis Regimen 0-1 Low Early ambulation 2 Moderate Order ONE of the following: *Sequential Compression Device (SCD) *Heparin 5000 units SQ BID 3-4 Higher Order ONE of the following medications: *Heparin 5000 units SQ TID *Enoxaparin/Lovenox 40 mg SQ daily (WT < 150 kg, CrCl > 30 mL/min) *Enoxaparin/Lovenox 30 mg SQ daily (WT < 150 kg, CrCl > 10-29 mL/min) *Enoxaparin/Lovenox 30 mg SQ BID (WT < 150 kg, CrCl > 30 mL/min) AND/OR *Sequential Compression Device (SCD) 5 or more Highest Order ONE of the following medications: *Heparin 5000 units SQ TID (Preferred with Epidurals) *Enoxaparin/Lovenox 40 mg SQ daily (WT < 150 kg, CrCl > 30 mL/min) *Enoxaparin/Lovenox 30 mg SQ daily (WT < 150 kg, CrCl > 10-29 mL/min) *Enoxaparin/Lovenox 30 mg SQ BID (WT < 150 kg, CrCl > 30 mL/min) AND *Sequential Compression Device (SCD) Assessment and Plan - Plan //Sickle cell crisis //Community-acquired bacterial pneumonia = Temperature of 100.2 on admission. Pneumonia on chest x-ray. = Hemoglobin 8.8. Acceptable. Continue to monitor. = Broad-spectrum antibiotics. Mandatory oxygen. IV fluids. Continue to monitor. Discharge Planning: Continued inpatient treatment for sickle cell crisis.
[2017-11-28] MEDS: Sod Chloride 0.9% Inj 1,000 ML IV.CONT SCH (12:59)
[2017-11-28] MEDS: Enoxaparin Inj 40 MG/0.4 ML Syringe SQ SCH (14:56)
[2017-11-28] MEDS: HYDROmorphone PF Inj 2 MG/ML Vial IV.PUSH SCH ×3 (14:56→21:30)
[2017-11-29] MEDS: HYDROmorphone PF Inj 2 MG/ML Vial IV.PUSH SCH ×6 (00:24→14:55)
[2017-11-29] MEDS: Sod Chloride 0.9% Inj 1,000 ML IV.CONT SCH ×3 (03:05→14:13)
[2017-11-29] MEDS: Azithromycin Inj 500 MG in Sodium Chlor 0.9% Inj 250 ML IV.SIG SCH (05:21)
[2017-11-29 07:11] LABS: Baso # (Auto) 0.1 th/mm3 (0.0-0.2); Baso % (Auto) 0.5 % (0.0-2.0); Eos # (Auto) 0.6 th/mm3 (0.0-0.4); Hematocrit 22.1 % (35.0-46.0); Hemoglobin 7.6 gm/dL (11.6-15.3); Lymph % (Auto) 33.5 % (9.0-44.0); Mean Corpuscular HGB Conc 34.2 % (32.0-36.0); Mean Corpuscular Hemoglobin 29.7 pg (27.0-34.0); Mean Corpuscular Volume 86.7 fL (80.0-100.0); Mean Platelet Volume 8.2 fL (7.0-11.0); Mono % (Auto) 8.1 % (0.0-8.0); Neut # (Auto) 6.3 th/mm3 (1.8-7.7); Neut % (Auto) 52.9 % (16.0-70.0); Platelet Count 433 th/mm3 (150-450); Red Blood Count 2.55 mil/mm3 (4.00-5.30); Red Cell Distribution Width 19.1 % (11.6-17.2); White Blood Count 11.9 th/mm3 (4.0-11.0)
[2017-11-29 07:46] LABS: Blood Urea Nitrogen 5 mg/dL (7-18)
[2017-11-29 07:48] LABS: Anion Gap 8 meq/L (5-15); Calcium 8.4 mg/dL (8.5-10.1); Carbon Dioxide 24.1 meq/L (21.0-32.0); Chloride 107 meq/L (98-107); Glomerular Filtration Rate Greater Than 89 mL/min (>89); Glucose,Random 91 mg/dL (74-106); Potassium 4.1 meq/L (3.5-5.1); Sodium 139 meq/L (136-145)
--- NOTE | 2017-11-29 09:53 | P.PNIM ---
Subjective Interval history: Patient says she is feeling a little better today. Denies any chest pain or shortness of breath. Pain improved. Feels like she might be able to go home tomorrow. Physical Exam Vital signs: Vital Signs 11/28/17 10:37 11/28/17 12:00 11/28/17 16:00 Temperature 98.9 F 98.8 F Pulse Rate 85 88 Respiratory Rate 16 16 Blood Pressure 108/67 97/64 L Pulse Oximetry 95 92 L 94 L 11/29/17 00:00 11/29/17 04:00 11/29/17 07:21 Temperature 99.3 F 98.4 F 98.1 F Pulse Rate 90 80 75 Respiratory Rate 16 20 16 Blood Pressure 91/51 L 97/56 L 87/55 L Pulse Oximetry 95 95 11/29/17 08:00 Temperature Pulse Rate Respiratory Rate 16 Blood Pressure Pulse Oximetry Intake & Output 11/28/17 11/29/17 11/29/17 18:59 06:59 18:59 Intake Total 720 / 720 1999 Balance 720 / 720 1999 Weight 57.3 kg Intake: IV 1999 NS Inj 1,000 ML @ 100 mls/hr IV 1999 .CONT .Q10H CIRO Rx#:[id number] Oral 720 / 720 Other: # Voids 3 Narrative: GENERAL: Patient sitting up in bed. Appears comfortable. Alert and oriented 3. SKIN: Warm and dry. HEAD: Normocephalic. EYES: No scleral icterus. No injection or drainage. NECK: Supple, trachea midline. No JVD. CARDIOVASCULAR: Regular rate and rhythm without murmurs, gallops, or rubs. RESPIRATORY: Breath sounds equal bilaterally. No accessory muscle use. GASTROINTESTINAL: Abdomen soft, non-tender, nondistended. MUSCULOSKELETAL: No cyanosis, or edema. BACK: Nontender without obvious deformity. No CVA tenderness. Results - Labs CBC & Chem 7: 11/29/17 06:30 11/29/17 06:30 Laboratory Results - last 24 hr 11/29/17 11/29/17 06:30 06:30 WBC 11.9 H RBC 2.55 L Hgb 7.6 L Hct 22.1 L MCV 86.7 MCH 29.7 MCHC 34.2 RDW 19.1 H Plt Count 433 MPV 8.2 Prelim Diff (Auto) Slide review pending Neut % (Auto) 52.9 Lymph % (Auto) 33.5 [place] % (Auto) 8.1 H Eos % (Auto) 5.0 H Baso % (Auto) 0.5 Neut # (Auto) 6.3 Lymph # (Auto) 4.0 [place] # (Auto) 1.0 H Eos # (Auto) 0.6 H Baso # (Auto) 0.1 Differential Comment . Sodium 139 Potassium 4.1 Chloride 107 Carbon Dioxide 24.1 Anion Gap 8 BUN 5 L Creatinine 0.50 Estimated GFR Greater than 89 Random Glucose 91 Calcium 8.4 L Assessment and Plan - Plan //Sickle cell crisis //Community-acquired bacterial pneumonia = Temperature of 100.2 on admission. Pneumonia on chest x-ray. = Hemoglobin 8.8. Acceptable. Continue to monitor. = Broad-spectrum antibiotics. Mandatory oxygen. IV fluids. Continue to monitor. = 11/29. Patient says pain is improving. Feels like she may be able to go home tomorrow. Continue current pain regimen. Restart home hydroxyurea. //Hypertension. Systolic blood pressure 86 this morning. Patient asymptomatic. Says she was sleeping at the time. Will monitor closely. Discharge Planning: Continued inpatient treatment for sickle cell crisis.
[2017-11-29 09:54] LABS: Eosinophils 6 % (0-4); Lymphocytes 28 % (9-44); Monocytes 10 % (0-8); Tallied Nucleated RBC 5 (0-0)
[2017-11-29 09:55] LABS: Howell-Jolly Bodies Present; Platelet Estimate Normal (Normal); Platelet Morphology Normal (Normal); Sickle Cells 1+; Target Cells 1+
[2017-11-29 09:56] LABS: Polychromasia 2.3 % (0.0-1.9)
[2017-11-29] MEDS: Enoxaparin Inj 40 MG/0.4 ML Syringe SQ SCH (11:19)
[2017-11-29] MEDS: HYDROmorphone PF Inj 2 MG/ML Vial IV.PUSH PRN ×2 (18:13→21:08)
[2017-11-30] MEDS: HYDROmorphone PF Inj 2 MG/ML Vial IV.PUSH PRN ×8 (00:14→20:54)
[2017-11-30] MEDS: Sod Chloride 0.9% Inj 1,000 ML IV.CONT SCH ×3 (00:16→23:39)
[2017-11-30] MEDS: Azithromycin Inj 500 MG in Sodium Chlor 0.9% Inj 250 ML IV.SIG SCH (05:43)
[2017-11-30] MEDS: Enoxaparin Inj 40 MG/0.4 ML Syringe SQ SCH (09:20)
[2017-11-30] MEDS: Folic Acid 1 MG Tablet PO SCH (09:20)
[2017-11-30] MEDS: Hydroxyurea 500 MG Capsule PO SCH (09:20)
--- NOTE | 2017-11-30 11:13 | P.PNIM ---
Subjective Interval history: Patient says she is feeling okay, however still reports pain. Does not want pain meds increased but does not feel comfortable going home at this time. Says she might feel better this afternoon Physical Exam Vital signs: Vital Signs 11/29/17 11:32 11/29/17 11:36 11/29/17 20:00 Temperature 98.3 F 98.6 F Pulse Rate 83 84 Respiratory Rate 16 18 Blood Pressure 106/76 106/76 108/52 L Pulse Oximetry 97 96 11/29/17 22:00 11/29/17 23:45 11/30/17 08:00 Temperature 98.4 F 98.4 F Pulse Rate 86 79 Respiratory Rate 8 L 17 16 Blood Pressure 106/68 115/67 Pulse Oximetry 97 96 Intake & Output 11/29/17 11/30/17 11/30/17 18:59 06:59 18:59 Intake Total 3700 / 3700 1250 / 1250 1100 / 1100 Balance 3700 / 3700 1250 / 1250 1100 / 1100 Intake: IV 2700 / 2700 1250 / 1250 1100 / 1100 NS Inj 1,000 ML @ 100 mls/hr IV 1000 / 1000 1000 / 1000 1000 / 1000 .CONT .Q10H CIRO Rx#:[id number] Azithromycin Inj 500 MG In NS 250 / 250 250 / 250 Inj 250 ML @ 250 mls/hr IV.SIG Q24H CIRO Rx#:[id number] Rocephin Inj 1,000 MG In NS Inj 100 / 100 100 / 100 100 ML @ 200 mls/hr IV.SIG Q24H CIRO Rx#:[id number] Oral 1000 / 1000 Other: # Voids 2 Narrative: GENERAL: Patient sitting up in bed. Appears comfortable. Alert and oriented 3. Exam unchanged. SKIN: Warm and dry. HEAD: Normocephalic. EYES: No scleral icterus. No injection or drainage. NECK: Supple, trachea midline. No JVD. CARDIOVASCULAR: Regular rate and rhythm without murmurs, gallops, or rubs. RESPIRATORY: Breath sounds equal bilaterally. No accessory muscle use. GASTROINTESTINAL: Abdomen soft, non-tender, nondistended. MUSCULOSKELETAL: No cyanosis, or edema. BACK: Nontender without obvious deformity. No CVA tenderness. Results - Labs CBC & Chem 7: 11/29/17 06:30 11/29/17 06:30 Microbiology 11/28/17 04:25 Blood - Peripheral Aerobic Blood Culture - Preliminary No growth in 2 days 11/28/17 04:25 Blood - Peripheral Anaerobic Blood Culture - Preliminary No growth in 2 days 11/28/17 04:20 Blood - Peripheral Aerobic Blood Culture - Preliminary No growth in 2 days 11/28/17 04:20 Blood - Peripheral Anaerobic Blood Culture - Preliminary No growth in 2 days Assessment and Plan - Plan //Sickle cell crisis //Community-acquired bacterial pneumonia = Temperature of 100.2 on admission. Pneumonia on chest x-ray. = Hemoglobin 8.8. Acceptable. Continue to monitor. = Broad-spectrum antibiotics. Mandatory oxygen. IV fluids. Continue to monitor. = 11/29. Patient says pain is improving. Feels like she may be able to go home tomorrow. Continue current pain regimen. Restart home hydroxyurea. 11/30. Recheck labs. Continue pain regimen. Hopefully patient go home the next 1-2 days. //Hypertension. Systolic blood pressure 86 this morning. Patient asymptomatic. Says she was sleeping at the time. Will monitor closely. Discharge Planning: Continued inpatient treatment for sickle cell crisis.
[2017-11-30 12:25] LABS: Baso # (Auto) 0.1 th/mm3 (0.0-0.2); Baso % (Auto) 0.9 % (0.0-2.0); Eos # (Auto) 0.9 th/mm3 (0.0-0.4); Eos % (Auto) 9.1 % (0.0-4.0); Hematocrit 23.1 % (35.0-46.0); Hemoglobin 8.2 gm/dL (11.6-15.3); Lymph # (Auto) 3.8 th/mm3 (1.0-4.8); Lymph % (Auto) 40.9 % (9.0-44.0); Mean Corpuscular HGB Conc 35.3 % (32.0-36.0); Mean Corpuscular Hemoglobin 30.6 pg (27.0-34.0); Mean Corpuscular Volume 86.4 fL (80.0-100.0); Mean Platelet Volume 7.6 fL (7.0-11.0); Mono # (Auto) 0.9 th/mm3 (0.0-0.9); Mono % (Auto) 9.8 % (0.0-8.0); Neut # (Auto) 3.7 th/mm3 (1.8-7.7); Neut % (Auto) 39.3 % (16.0-70.0); Platelet Count 446 th/mm3 (150-450); Red Blood Count 2.67 mil/mm3 (4.00-5.30); Red Cell Distribution Width 19.2 % (11.6-17.2); White Blood Count 9.3 th/mm3 (4.0-11.0)
[2017-11-30 12:59] LABS: Alanine Aminotransferase 40 U/L (10-53)
[2017-11-30 13:00] LABS: Anion Gap 7 meq/L (5-15); Aspartate Aminotransferase 67 U/L (15-37); Blood Urea Nitrogen 6 mg/dL (7-18); Calcium 8.7 mg/dL (8.5-10.1); Carbon Dioxide 23.6 meq/L (21.0-32.0); Chloride 108 meq/L (98-107); Glomerular Filtration Rate Greater Than 89 mL/min (>89); Glucose,Random 98 mg/dL (74-106); Potassium 3.8 meq/L (3.5-5.1); Sodium 139 meq/L (136-145)
[2017-11-30 13:01] LABS: Alkaline Phosphatase 138 U/L (45-117); Total Protein 7.9 g/dL (6.4-8.2)
[2017-11-30 13:22] LABS: Eosinophils 8 % (0-4); Lymphocytes 32 % (9-44); Monocytes 4 % (0-8); Platelet Morphology Normal (Normal); Sickle Cells 1+; Tallied Nucleated RBC 6 (0-0); Target Cells 1+
[2017-12-01] MEDS: HYDROmorphone PF Inj 2 MG/ML Vial IV.PUSH PRN ×9 (00:01→22:28)
[2017-12-01] MEDS: Azithromycin Inj 500 MG in Sodium Chlor 0.9% Inj 250 ML IV.SIG SCH (04:35)
[2017-12-01] MEDS: Sod Chloride 0.9% Inj 1,000 ML IV.CONT SCH ×2 (05:18→15:42)
[2017-12-01 06:18] LABS: White Blood Count 9.6 th/mm3 (4.0-11.0)
[2017-12-01 06:19] LABS: Baso # (Auto) 0.1 th/mm3 (0.0-0.2); Baso % (Auto) 1.1 % (0.0-2.0); Eos # (Auto) 0.8 th/mm3 (0.0-0.4); Eos % (Auto) 8.6 % (0.0-4.0); Hematocrit 21.6 % (35.0-46.0); Lymph # (Auto) 3.7 th/mm3 (1.0-4.8); Lymph % (Auto) 38.3 % (9.0-44.0); Mean Corpuscular HGB Conc 36.8 % (32.0-36.0); Mean Corpuscular Hemoglobin 31.3 pg (27.0-34.0); Mean Corpuscular Volume 85.1 fL (80.0-100.0); Mean Platelet Volume 7.3 fL (7.0-11.0); Mono % (Auto) 10.7 % (0.0-8.0); Neut % (Auto) 41.3 % (16.0-70.0); Platelet Count 420 th/mm3 (150-450); Red Blood Count 2.54 mil/mm3 (4.00-5.30); Red Cell Distribution Width 18.5 % (11.6-17.2)
[2017-12-01 07:37] LABS: Eosinophils 13 % (0-4); Lymphocytes 45 % (9-44); Monocytes 5 % (0-8); Tallied Nucleated RBC 3 (0-0)
[2017-12-01 07:38] LABS: Platelet Estimate Normal (Normal); Platelet Morphology Normal (Normal); Sickle Cells 3+; Spherocytes Occ; Target Cells 1+; Tear Drop Cells 1+
[2017-12-01] MEDS: Folic Acid 1 MG Tablet PO SCH (08:59)
[2017-12-01] MEDS: Hydroxyurea 500 MG Capsule PO SCH (08:59)
--- NOTE | 2017-12-01 09:22 | P.PNIM ---
Subjective Interval history: She reports that back pain is worse today, she is upset about not being able to get her pain meds on time. Physical Exam Vital signs: Vital Signs 11/30/17 14:59 11/30/17 19:19 11/30/17 23:58 Temperature 99.0 F 98.0 F 99.1 F Pulse Rate 84 88 92 H Respiratory Rate 16 16 18 Blood Pressure 101/66 100/62 105/59 L Pulse Oximetry 100 95 12/01/17 03:19 Temperature 98.1 F Pulse Rate 92 H Respiratory Rate 16 Blood Pressure 88/58 L Pulse Oximetry 99 Intake & Output 11/30/17 12/01/17 12/01/17 18:59 06:59 18:59 Intake Total 1600 / 1600 Balance 1600 / 1600 Intake: IV 1100 / 1100 NS Inj 1,000 ML @ 100 mls/hr IV 1000 / 1000 .CONT .Q10H [facility] Rx#:[id number] Rocephin Inj 1,000 MG In NS Inj 100 / 100 100 ML @ 200 mls/hr IV.SIG Q24H [facility] Rx#:[id number] Oral 500 / 500 Other: # Voids 3 Narrative: GENERAL: Patient sitting up in bed. She is crying. Alert and oriented 3. Exam unchanged. SKIN: Warm and dry. HEAD: Normocephalic. EYES: No scleral icterus. No injection or drainage. NECK: Supple, trachea midline. No JVD. CARDIOVASCULAR: Regular rate and rhythm without murmurs, gallops, or rubs. RESPIRATORY: Breath sounds equal bilaterally. No accessory muscle use. GASTROINTESTINAL: Abdomen soft, non-tender, nondistended. MUSCULOSKELETAL: No cyanosis, or edema. Entire spine tender to palpation. BACK: Nontender without obvious deformity. No CVA tenderness. Results - Labs CBC & Chem 7: 12/01/17 06:09 11/30/17 12:06 Laboratory Results - last 24 hr 11/30/17 11/30/17 12/01/17 12:06 12:06 06:09 WBC 9.3 9.6 RBC 2.67 L 2.54 L Hgb 8.2 L 8.0 L Hct 23.1 L 21.6 L MCV 86.4 85.1 MCH 30.6 31.3 MCHC 35.3 36.8 H RDW 19.2 H 18.5 H Plt Count 446 420 MPV 7.6 7.3 Prelim Diff (Auto) Slide review pending Slide review pending Neut % (Auto) 39.3 41.3 Lymph % (Auto) 40.9 38.3 [place] % (Auto) 9.8 H 10.7 H Eos % (Auto) 9.1 H 8.6 H Baso % (Auto) 0.9 1.1 Neut # (Auto) 3.7 4.0 Lymph # (Auto) 3.8 3.7 [place] # (Auto) 0.9 1.0 H Eos # (Auto) 0.9 H 0.8 H Baso # (Auto) 0.1 0.1 WBC Differential Manual diff final Manual diff final Seg Neuts % (Manual) 56 37 Lymphocytes % (Manual) 32 45 H Monocytes % (Manual) 4 5 Eosinophils % (Manual) 8 H 13 H Abs Neuts (Manual) 5.2 3.6 Nucleated RBCs/100 WBC 6 H 3 H Differential Comment . . Platelet Estimate High H Normal Platelet Morphology Normal Normal Spherocytes Occ H Sickle Cells 1+ H 3+ H Target Cells 1+ H 1+ H Tear Drop Cells 1+ H Sodium 139 Potassium 3.8 Chloride 108 H Carbon Dioxide 23.6 Anion Gap 7 BUN 6 L Creatinine 0.54 Estimated GFR Greater than 89 Random Glucose 98 Calcium 8.7 Total Bilirubin 1.5 H AST 67 H ALT 40 Alkaline Phosphatase 138 H Total Protein 7.9 Albumin 3.0 L Microbiology 11/28/17 04:25 Blood - Peripheral Aerobic Blood Culture - Preliminary No growth in 2 days 11/28/17 04:25 Blood - Peripheral Anaerobic Blood Culture - Preliminary No growth in 2 days 11/28/17 04:20 Blood - Peripheral Aerobic Blood Culture - Preliminary No growth in 2 days 11/28/17 04:20 Blood - Peripheral Anaerobic Blood Culture - Preliminary No growth in 2 days Assessment and Plan - Plan //Sickle cell crisis //sickle cell anemia //Community-acquired bacterial pneumonia = Temperature of 100.2 on admission. Pneumonia on chest x-ray. = Hemoglobin 8.8. Acceptable. Continue to monitor. = Broad-spectrum antibiotics. Mandatory oxygen. IV fluids. Continue to monitor. = 11/29. Patient says pain is improving. Feels like she may be able to go home tomorrow. Continue current pain regimen. Restart home hydroxyurea. 11/30. Recheck labs. Continue pain regimen. Hopefully patient go home the next 1-2 days. 12/01 -worsening in spine pain. Patient with known history of chronic changes the spine. Hemoglobin 8.0. Will transfuse 2 units of RBCs. A new pain meds. //Hypotension. Systolic blood pressure 86 this morning. Patient asymptomatic. Says she was sleeping at the time. Will monitor closely. = 12/01. Systolic blood pressure again in the 80s. Will continue to monitor. Discharge Planning: Continued inpatient treatment for sickle cell crisis.
[2017-12-01] MEDS: Enoxaparin Inj 40 MG/0.4 ML Syringe SQ SCH (09:30)
[2017-12-01] MEDS ORDERED: Sodium Chlor 0.9% Inj 250 ML IV.SIG SCH (10:00)
--- NOTE | 2017-12-01 20:40 | P.PN ---
Subjective Interval history: F/U [facility] Physical Exam Vital signs: Vital Signs 11/30/17 23:58 12/01/17 03:19 12/01/17 11:57 Temperature 99.1 F 98.1 F 98.2 F Pulse Rate 92 H 92 H 95 H Respiratory Rate 18 16 16 Blood Pressure 105/59 L 88/58 L 105/66 Pulse Oximetry 99 96 12/01/17 14:26 12/01/17 16:00 12/01/17 18:20 Temperature 98.3 F 98.3 F 98.2 F Pulse Rate 89 86 62 Respiratory Rate 18 16 18 Blood Pressure 110/66 101/59 L 115/60 Pulse Oximetry 95 12/01/17 20:00 Temperature 99.1 F Pulse Rate 93 H Respiratory Rate 16 Blood Pressure 101/63 Pulse Oximetry 92 L Intake & Output 12/01/17 12/01/17 12/02/17 06:59 18:59 06:59 Intake Total 1350 / 1350 500 / 500 Balance 1350 / 1350 500 / 500 Intake: IV 1350 / 1350 NS Inj 1,000 ML @ 100 mls/hr IV 1000 / 1000 .CONT .Q10H [facility] Rx#:[id number] Azithromycin Inj 500 MG In NS 250 / 250 Inj 250 ML @ 250 mls/hr IV.SIG Q24H [facility] Rx#:[id number] Rocephin Inj 1,000 MG In NS Inj 100 / 100 100 ML @ 200 mls/hr IV.SIG Q24H [facility] Rx#:[id number] Oral 500 / 500 Intake (Blood Product) Amt 0 / 0 Rbc As-3 Leukoreduced Unit 0 / 0 [id number] Rbc As-3 Leukoreduced Unit 0 / 0 [id number] Narrative: GENERAL: Patient sitting up in bed. She is crying. Alert and oriented 3. SKIN: Warm and dry. CARDIOVASCULAR: Regular rate and rhythm without murmurs, gallops, or rubs. RESPIRATORY: Breath sounds equal bilaterally. No accessory muscle use. GASTROINTESTINAL: Abdomen soft, non-tender, nondistended. MUSCULOSKELETAL: No cyanosis, or edema. Entire spine tender to palpation. BACK: Nontender without obvious deformity. No CVA tenderness. Results - Labs CBC & Chem 7: 12/01/17 06:09 11/30/17 12:06 Laboratory Results - last 24 hr 12/01/17 12/01/17 06:09 11:45 WBC 9.6 RBC 2.54 L Hgb 8.0 L Hct 21.6 L MCV 85.1 MCH 31.3 MCHC 36.8 H RDW 18.5 H Plt Count 420 MPV 7.3 Prelim Diff (Auto) Slide review pending Neut % (Auto) 41.3 Lymph % (Auto) 38.3 [place] % (Auto) 10.7 H Eos % (Auto) 8.6 H Baso % (Auto) 1.1 Neut # (Auto) 4.0 Lymph # (Auto) 3.7 [place] # (Auto) 1.0 H Eos # (Auto) 0.8 H Baso # (Auto) 0.1 WBC Differential Manual diff final Seg Neuts % (Manual) 37 Lymphocytes % (Manual) 45 H Monocytes % (Manual) 5 Eosinophils % (Manual) 13 H Abs Neuts (Manual) 3.6 Nucleated RBCs/100 WBC 3 H Differential Comment . Platelet Estimate Normal Platelet Morphology Normal Spherocytes Occ H Sickle Cells 3+ H Target Cells 1+ H Tear Drop Cells 1+ H Blood Type B Positive Antibody Screen Negative MTS Gel Crossmatch See Detail Microbiology 11/28/17 04:25 Blood - Peripheral Aerobic Blood Culture - Preliminary No growth in 3 days 11/28/17 04:25 Blood - Peripheral Anaerobic Blood Culture - Preliminary No growth in 3 days 11/28/17 04:20 Blood - Peripheral Aerobic Blood Culture - Preliminary No growth in 3 days 11/28/17 04:20 Blood - Peripheral Anaerobic Blood Culture - Preliminary No growth in 3 days - Imaging ITS Impressions Chest X-Ray 11/28/17 03:54 CONCLUSION: Patchy pneumonia of the right lung, mostly in the lower lobe. - Procedures none Assessment and Plan - Plan //Sickle cell crisis //sickle cell anemia //Community-acquired bacterial pneumonia = Temperature of 100.2 on admission. Pneumonia on chest x-ray. = Hemoglobin 8.8. Acceptable. Continue to monitor. = Broad-spectrum antibiotics with zithromax and rocephin since 11/29. Mandatory oxygen. IV fluids. Continue to monitor. = 11/29. Patient says pain is improving. Feels like she may be able to go home tomorrow. Continue current pain regimen lortab and dilaudid. Restart home hydroxyurea. 11/30. Recheck labs. Continue pain regimen. Hopefully patient go home the next 1-2 days. 12/01 -worsening in spine pain. Patient with known history of chronic changes the spine. Hemoglobin 8.0. Will transfuse 2 units of RBCs. //Hypotension. Systolic blood pressure 86 this morning. Patient asymptomatic. Says she was sleeping at the time. Will monitor closely. = 12/01. Systolic blood pressure again in the 80s. Will continue to monitor.
[2017-12-02] MEDS: HYDROmorphone PF Inj 2 MG/ML Vial IV.PUSH PRN ×7 (01:33→21:38)
[2017-12-02] MEDS: Sod Chloride 0.9% Inj 1,000 ML IV.CONT SCH ×2 (02:00→11:47)
[2017-12-02] MEDS: Azithromycin Inj 500 MG in Sodium Chlor 0.9% Inj 250 ML IV.SIG SCH (04:41)
[2017-12-02 07:51] LABS: Baso # (Auto) 0.1 th/mm3 (0.0-0.2); Baso % (Auto) 0.8 % (0.0-2.0); Eos # (Auto) 0.8 th/mm3 (0.0-0.4); Eos % (Auto) 9.1 % (0.0-4.0); Hemoglobin 10.9 gm/dL (11.6-15.3); Lymph # (Auto) 3.2 th/mm3 (1.0-4.8); Lymph % (Auto) 36.6 % (9.0-44.0); Mean Corpuscular Hemoglobin 30.5 pg (27.0-34.0); Mean Corpuscular Volume 83.7 fL (80.0-100.0); Mean Platelet Volume 7.7 fL (7.0-11.0); Mono # (Auto) 0.9 th/mm3 (0.0-0.9); Mono % (Auto) 10.4 % (0.0-8.0); Neut # (Auto) 3.7 th/mm3 (1.8-7.7); Neut % (Auto) 43.1 % (16.0-70.0); Platelet Count 417 th/mm3 (150-450); Red Blood Count 3.58 mil/mm3 (4.00-5.30); Red Cell Distribution Width 18.5 % (11.6-17.2); White Blood Count 8.7 th/mm3 (4.0-11.0)
[2017-12-02 07:53] LABS: Mean Corpuscular HGB Conc 36.4 % (32.0-36.0)
[2017-12-02] MEDS: Folic Acid 1 MG Tablet PO SCH (08:09)
[2017-12-02] MEDS: Enoxaparin Inj 40 MG/0.4 ML Syringe SQ SCH (08:09)
[2017-12-02] MEDS: Hydroxyurea 500 MG Capsule PO SCH (08:09)
[2017-12-02 08:31] LABS: Eosinophils 11 % (0-4); Lymphocytes 29 % (9-44); Monocytes 4 % (0-8); Tallied Nucleated RBC 2 (0-0)
[2017-12-02 08:32] LABS: Dimorphic RBC Present; Ovalocytes 1+; Sickle Cells 2+
[2017-12-02 08:33] LABS: Platelet Estimate Normal (Normal); Platelet Morphology Normal (Normal)
[2017-12-02 08:53] LABS: Alanine Aminotransferase 34 U/L (10-53); Albumin 3.4 g/dL (3.4-5.0); Alkaline Phosphatase 127 U/L (45-117); Anion Gap 8 meq/L (5-15); Aspartate Aminotransferase 69 U/L (15-37); Blood Urea Nitrogen 7 mg/dL (7-18); Calcium 8.4 mg/dL (8.5-10.1); Carbon Dioxide 24.9 meq/L (21.0-32.0); Chloride 106 meq/L (98-107); Glomerular Filtration Rate Greater Than 89 mL/min (>89); Glucose,Random 111 mg/dL (74-106); Potassium 4.1 meq/L (3.5-5.1); Sodium 139 meq/L (136-145)
--- NOTE | 2017-12-02 09:29 | P.PN ---
Subjective Interval history: Follow-up sickle cell crisis. Discussed with nursing patient has refused IV antibiotics. Patient states she is hurting more than usual because of her menses. She agrees to receive IV antibiotics and switch pain meds to p.o. tomorrow Physical Exam Vital signs: Vital Signs 12/01/17 11:57 12/01/17 14:26 12/01/17 16:00 Temperature 98.2 F 98.3 F 98.3 F Pulse Rate 95 H 89 86 Respiratory Rate 16 18 16 Blood Pressure 105/66 110/66 101/59 L Pulse Oximetry 96 95 12/01/17 18:20 12/01/17 20:00 12/02/17 01:31 Temperature 98.2 F 99.1 F Pulse Rate 62 93 H 88 Respiratory Rate 18 16 16 Blood Pressure 115/60 101/63 103/68 Pulse Oximetry 92 L 12/02/17 04:00 12/02/17 04:45 12/02/17 07:56 Temperature 98.1 F 98.7 F Pulse Rate 75 88 102 H Respiratory Rate 16 16 Blood Pressure 97/63 L 129/81 117/75 Pulse Oximetry 96 99 Intake & Output 12/01/17 12/02/17 12/02/17 18:59 06:59 18:59 Intake Total 500 / 500 1400 / 1400 Balance 500 / 500 1400 / 1400 Intake: IV 1000 / 1000 NS Inj 1,000 ML @ 100 mls/hr IV 1000 / 1000 .CONT .Q10H [facility] Rx#:[id number] Oral 500 / 500 Intake (Blood Product) Amt 0 / 0 400 / 400 Rbc As-3 Leukoreduced Unit 0 / 0 [id number] Rbc As-3 Leukoreduced Unit 0 / 0 400 / 400 [id number] Narrative: GENERAL: Patient sitting up in bed. She is crying. Alert and oriented 3. SKIN: Warm and dry. CARDIOVASCULAR: Regular rate and rhythm without murmurs, gallops, or rubs. RESPIRATORY: Breath sounds equal bilaterally. No accessory muscle use. GASTROINTESTINAL: Abdomen soft, non-tender, nondistended. MUSCULOSKELETAL: No cyanosis, or edema. BACK: Nontender without obvious deformity. No CVA tenderness. Results - Labs CBC & Chem 7: 12/02/17 06:45 12/02/17 06:45 Laboratory Results - last 24 hr 12/01/17 12/02/17 12/02/17 11:45 06:45 06:45 WBC 8.7 RBC 3.58 L Hgb 10.9 L D Hct 30.0 L MCV 83.7 MCH 30.5 MCHC 36.4 H RDW 18.5 H Plt Count 417 MPV 7.7 Prelim Diff (Auto) Slide review pending Neut % (Auto) 43.1 Lymph % (Auto) 36.6 [place] % (Auto) 10.4 H Eos % (Auto) 9.1 H Baso % (Auto) 0.8 Neut # (Auto) 3.7 Lymph # (Auto) 3.2 [place] # (Auto) 0.9 Eos # (Auto) 0.8 H Baso # (Auto) 0.1 WBC Differential Manual diff final Seg Neuts % (Manual) 54 Band Neuts % (Manual) 1 Lymphocytes % (Manual) 29 Monocytes % (Manual) 4 Eosinophils % (Manual) 11 H Basophils % (Manual) 1 Abs Neuts (Manual) 4.8 Nucleated RBCs/100 WBC 2 H Differential Comment . Platelet Estimate Normal Platelet Morphology Normal Dimorphic RBCs Present H Sickle Cells 2+ H Ovalocytes 1+ H Sodium 139 Potassium 4.1 Chloride 106 Carbon Dioxide 24.9 Anion Gap 8 BUN 7 Creatinine 0.63 Estimated GFR Greater than 89 Random Glucose 111 H Calcium 8.4 L Total Bilirubin 1.5 H AST 69 H ALT 34 Alkaline Phosphatase 127 H Total Protein 8.0 Albumin 3.4 Blood Type B Positive Antibody Screen Negative MTS Gel Crossmatch See Detail Microbiology 11/28/17 04:25 Blood - Peripheral Aerobic Blood Culture - Preliminary No growth in 3 days 11/28/17 04:25 Blood - Peripheral Anaerobic Blood Culture - Preliminary No growth in 3 days 11/28/17 04:20 Blood - Peripheral Aerobic Blood Culture - Preliminary No growth in 3 days 11/28/17 04:20 Blood - Peripheral Anaerobic Blood Culture - Preliminary No growth in 3 days - Procedures none Assessment and Plan - Plan //Sickle cell crisis //sickle cell anemia //Community-acquired bacterial pneumonia = Temperature of 100.2 on admission. Pneumonia on chest x-ray. = Broad-spectrum antibiotics with zithromax and rocephin since 11/29. Mandatory oxygen. IV fluids. Continue to monitor. = worsening pain because of her menses. Wants to continue current pain management and will switch to p.o. tomorrow counselled regarding narcotics = Improved hemoglobin to 10 after transfusion. //Hypotension. Improving. Will continue to monitor. DVT prophylaxis with Lovenox Discharge Planning: Possible discharge in 1-2 days
[2017-12-03] MEDS: HYDROmorphone PF Inj 2 MG/ML Vial IV.PUSH PRN ×2 (01:14→04:11)
[2017-12-03] MEDS: Sod Chloride 0.9% Inj 1,000 ML IV.CONT SCH ×2 (04:10→07:59)
[2017-12-03] MEDS ORDERED: HYDROmorphone PF Inj 2 MG/ML Vial IV.PUSH PRN (05:22)
[2017-12-03] MEDS: Azithromycin Inj 500 MG in Sodium Chlor 0.9% Inj 250 ML IV.SIG SCH (05:35)
[2017-12-03] MEDS: Hydroxyurea 500 MG Capsule PO SCH (09:39)
[2017-12-03] MEDS: Enoxaparin Inj 40 MG/0.4 ML Syringe SQ SCH (09:39)
[2017-12-03] MEDS: Folic Acid 1 MG Tablet PO SCH (09:40)
--- NOTE | 2017-12-03 15:02 | P.DS ---
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 She denies any cough. Denies any chest pain, shortness of breath, nausea, vomiting, diarrhea, constipation, dysuria. DS: Diagnosis - Discharge Diagnosis (1) Sickle cell crisis Status: Acute (2) Pneumonia Status: Acute DS: Medications - Discharge Medications Prescriptions: cefuroxime axetil 500 mg PO Q12H #4 tab DS: Summary Hospital Course: //Sickle cell crisis //sickle cell anemia //Community-acquired bacterial pneumonia = Improved with blood transfusion, IV hydration and pain management. Counseled regarding narcotics. Temperature of 100.2 on admission. Pneumonia on chest x- ray. = Cultures negative to date switch to p.o. Ceftin status post Zithromax and Rocephin. Repeat chest x-ray in 6 weeks. //Hypotension. Resolved. Will continue to monitor. DVT prophylaxis with Lovenox - Time Spent with Patient Total time spent providing and/or coordinating discharge services: - Quality: VTE Deep Vein Thrombosis/Pulmonary Embolism Present on Admission: No Exam Vital signs: Vital Signs 12/02/17 16:00 12/02/17 20:00 12/03/17 00:00 Temperature 98.0 F 97.9 F 98.0 F Pulse Rate 80 74 69 Respiratory Rate 16 17 16 Blood Pressure 102/64 122/74 120/68 Pulse Oximetry 95 98 97 12/03/17 04:00 12/03/17 08:00 12/03/17 09:04 Temperature 97.9 F 98.2 F Pulse Rate 65 88 Respiratory Rate 14 22 22 Blood Pressure 119/79 115/69 Pulse Oximetry 95 96 Intake & Output 12/02/17 12/03/17 12/03/17 18:59 06:59 18:59 Intake Total 250 / 250 250 / 250 Balance 250 / 250 250 / 250 Intake: IV 250 / 250 250 / 250 Azithromycin Inj 500 MG In NS 250 / 250 Inj 250 ML @ 250 mls/hr IV.SIG Q24H [facility] Rx#:[id number] Narrative: GENERAL: Patient sitting up in bed. Alert and oriented 3. SKIN: Warm and dry. CARDIOVASCULAR: Regular rate and rhythm without murmurs, gallops, or rubs. RESPIRATORY: Breath sounds equal bilaterally. No accessory muscle use. GASTROINTESTINAL: Abdomen soft, non-tender, nondistended. MUSCULOSKELETAL: No cyanosis, or edema. BACK: Nontender without obvious deformity. No CVA tenderness. Results Procedures completed during hospitalization: none - Impressions ITS Impressions Chest X-Ray 11/28/17 03:54 CONCLUSION: Patchy pneumonia of the right lung, mostly in the lower lobe. Discharge Plan - Discharge Disposition Patient Disposition: Discharge Home - Discharge Condition Condition: Stable - Discharge Order Discharge Orders: Discharge Order (Routine); Ordered 12/03/17 Ordered By: Jorden Ling - Discharge Details Anticipated Discharge Date: 11/29/17 - Physicians Team Primary Care Provider: Primary Care Dora Akins Attending Provider: Jorden Ling
== END 2017-12-03 13:08 | disposition home or self-care (01) ==
LOC: NEDA 03:08 → NEPE 03:08 → NEDA 06:53 → NEPFCDU 07:16
PROVIDERS: ADMIT Internal Medicine; ATTEND Internal Medicine

== ENCOUNTER 2018-05-16 03:11 | Inpatient (IN) ==
[2018-05-16 03:15] VITALS: RESP 16; TEMP 98.3; O2SAT 92
[2018-05-16] MEDS ORDERED: HYDROmorphone PF Inj 1 MG/ML Ampul IV.PUSH ONE (03:56)
--- NOTE | 2018-05-16 03:56 | ED ---
HPI General Chief complaint: Sickle Cell Stated complaint: Sickle Cell Time Seen by Provider: 05/16/18 03:48 Source: patient Mode of arrival: ambulatory Limitations: no limitations History of Present Illness HPI narrative: 32-year-old female came to the emergency room with history of bilateral upper and lower extremity pain and chest pain that started 24 hours back. Patient has history of sickle cell disease and has been in the emergency room multiple times with the symptoms. 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 Vital signs showed some mild hypoxia at 92% on room air. Patient is denying any shortness of breath or respiratory distress. No history of fever or cough. Pain is nonradiating and no aggravating or relieving symptoms identified Related Data Home Medications Medication Instructions Recorded Confirmed folic acid 0.4 mg PO DAILY 11/08/17 05/16/18 multivitamin [Multiple Vitamins] 1 tab PO DAILY 01/21/18 05/16/18 hydrocodone-acetaminophen [[place]] 1 tab PO Q4-6H PRN 02/19/18 05/16/18 Allergies Allergy/AdvReac Type Severity Reaction Status Date / Time morphine Allergy Rash, Verified 05/12/18 08:02 Generalized Review of Systems ROS: all other systems reviewed are negative [facility] Medical History Medical History Port-A-Cath in place (Acute) Tubal ligation status (Acute) Sickle cell anemia (Acute) Nephrolithiasis (Acute) Surgical History Surgical History Hx of cholecystectomy (Acute) Hx of tonsillectomy (Acute) Family History Family History Daughter Sickle cell anemia Mother Sickle cell trait Father Sickle cell trait Social History Social History Substance History: No History of Abuse Second Hand Smoke Exposure: No Smoking Status: Never smoker How Often Do You Have a Drink Containing Alcohol: Never Recent Travel in [facility] within the Last 8 Weeks: No Recent Out of Country Travel within the Last 8 Weeks: No Immunization History Tetanus Immunization: Unsure Exam Narrative Exam Narrative: GENERAL: Awake, alert, mild distress SKIN: Focused skin assessment warm/dry. HEAD: Atraumatic. Normocephalic. EYES: Pupils equal and round. No scleral icterus. No injection or drainage. Pallor present ENT: No nasal bleeding or discharge. Mucous membranes pink and moist. NECK: Trachea midline. No JVD. CARDIOVASCULAR: Regular rate and rhythm. No murmur appreciated. RESPIRATORY: No accessory muscle use. Clear to auscultation. Breath sounds equal bilaterally. GASTROINTESTINAL: Abdomen soft, non-tender, nondistended. Hepatic and splenic margins not palpable. MUSCULOSKELETAL: No obvious deformities. No clubbing. No cyanosis. No edema. NEUROLOGICAL: Awake and alert. No obvious cranial nerve deficits. Motor grossly within normal limits. Normal speech. PSYCHIATRIC: Appropriate mood and affect; insight and judgment normal. Course Initial Documented Vital Signs Temperature 98.3 F 05/16/18 03:13 Pulse Rate 98 H 05/16/18 03:13 Respiratory Rate 16 05/16/18 03:13 Blood Pressure 113/69 05/16/18 03:13 Pulse Oximetry 92 L 05/16/18 03:13 Last Documented Vital Signs Temperature 98.3 F 05/16/18 03:13 Pulse Rate 98 H 05/16/18 03:13 Respiratory Rate 16 05/16/18 03:15 Blood Pressure 113/69 05/16/18 03:13 Pulse Oximetry 92 L 05/16/18 03:13 Medical Decision Making MDM Narrative Medical decision making narrative: 5:15 AM blood test results are back and suggestive of critically low hemoglobin. I have ordered 2 units of PRBC transfusion. I will admit the patient for observation. Medical Screen Exam Complete: Yes Emergency Medical Condition: Yes Lab Data Result diagrams: 05/16/18 04:32 05/16/18 04:32 Lab Results 05/16/18 Range/Units 04:32 WBC 9.2 (4.0-11.0) th/mm3 RBC 2.10 L (4.00-5.30) mil/mm3 Hgb 6.9 L* (11.6-15.3) gm/dL Hct 18.1 L* (35.0-46.0) % MCV 86.2 (80.0-100.0) fL MCH 32.7 (27.0-34.0) pg MCHC 38.0 H (32.0-36.0) % RDW 27.4 H (11.6-17.2) % Plt Count 281 (150-450) th/mm3 MPV 7.7 (7.0-11.0) fL Prelim Diff (Auto) Slide review pending Neut % (Auto) 41.9 (16.0-70.0) % Lymph % (Auto) 41.0 (9.0-44.0) % [place] % (Auto) 9.7 H (0.0-8.0) % Eos % (Auto) 6.3 H (0.0-4.0) % Baso % (Auto) 1.1 (0.0-2.0) % Neut # (Auto) 3.9 (1.8-7.7) th/mm3 Lymph # (Auto) 3.8 (1.0-4.8) th/mm3 [place] # (Auto) 0.9 (0.0-0.9) th/mm3 Eos # (Auto) 0.6 H (0.0-0.4) th/mm3 Baso # (Auto) 0.1 (0.0-0.2) th/mm3 Differential Comment . Retic Count 13.5 H (0.4-3.0) % Absolute Retic 283.9 H (20.0-150.0) mil/L Discharge Plan Discharge Disposition Patient Disposition: ED Admit(ED Internal Use Only) Physicians Team ED Provider: Iesha Lynn Primary Care Provider: UNKNOWN, Rxs /Orders / Referrals /Forms Prescriptions: No Action folic acid 400 mcg Tablet 0.4 mg PO DAILY RF: 0 hydrocodone-acetaminophen [[place]] 10-325 mg Tablet 1 tab PO Q4-6H PRN (Reason: Pain) RF: 0 multivitamin [Multiple Vitamins] Tablet 1 tab PO DAILY RF: 0 Discharge Interventions Interventions: Vital Signs Last Done: 05/16/18 03:15 Status ED Status: With Doctor
[2018-05-16] MEDS ORDERED: Sod Chloride 0.9% Inj 1,000 ML IV.SIG SCH (04:00)
[2018-05-16 04:44] LABS: Baso # (Auto) 0.1 th/mm3 (0.0-0.2); Baso % (Auto) 1.1 % (0.0-2.0); Eos # (Auto) 0.6 th/mm3 (0.0-0.4); Eos % (Auto) 6.3 % (0.0-4.0); Lymph # (Auto) 3.8 th/mm3 (1.0-4.8); Mean Corpuscular Hemoglobin 32.7 pg (27.0-34.0); Mean Corpuscular Volume 86.2 fL (80.0-100.0); Mean Platelet Volume 7.7 fL (7.0-11.0); Mono # (Auto) 0.9 th/mm3 (0.0-0.9); Mono % (Auto) 9.7 % (0.0-8.0); Neut # (Auto) 3.9 th/mm3 (1.8-7.7); Neut % (Auto) 41.9 % (16.0-70.0); Platelet Count 281 th/mm3 (150-450); Red Cell Distribution Width 27.4 % (11.6-17.2); Reticulocyte Percent 13.5 % (0.4-3.0); White Blood Count 9.2 th/mm3 (4.0-11.0)
[2018-05-16 04:47] LABS: Hemoglobin 6.9 gm/dL (11.6-15.3)
[2018-05-16 04:48] LABS: Hematocrit 18.1 % (35.0-46.0)
[2018-05-16] MEDS ORDERED: Sodium Chlor 0.9% Inj 250 ML IV.SIG SCH (05:00)
[2018-05-16 05:14] LABS: Alkaline Phosphatase 82 U/L (45-117); Total Protein 7.6 g/dL (6.4-8.2)
[2018-05-16 05:15] LABS: Alanine Aminotransferase 14 U/L (10-53); Albumin 3.1 g/dL (3.4-5.0); Anion Gap 9 meq/L (5-15); Blood Urea Nitrogen 5 mg/dL (7-18); Calcium 7.9 mg/dL (8.5-10.1); Carbon Dioxide 23.2 meq/L (21.0-32.0); Chloride 111 meq/L (98-107); Glomerular Filtration Rate Greater Than 89 mL/min (>89); Glucose,Random 88 mg/dL (74-106); Sodium 143 meq/L (136-145)
[2018-05-16 05:17] LABS: Aspartate Aminotransferase 69 U/L (15-37); Potassium 3.5 meq/L (3.5-5.1)
[2018-05-16 05:19] LABS: Eosinophils 3 % (0-4); Howell-Jolly Bodies Present; Lymphocytes 44 % (9-44); Monocytes 11 % (0-8); Platelet Estimate Normal (Normal); Sickle Cells 3+; Tallied Nucleated RBC 28 (0-0)
[2018-05-16 05:20] LABS: Pappenheimer Bodies Present; Polychromasia 2.1 % (0.0-1.9)
[2018-05-16] MEDS ORDERED: Acetaminophen 325 MG Tablet PO PRN (05:26)
[2018-05-16] MEDS ORDERED: Naloxone Inj 0.4 MG/ML Vial IV.PUSH PRN (05:31)
[2018-05-16 05:42] VITALS: BP 105/60; PULSE 80
== END 2018-05-16 15:00 | disposition left against medical advice (07) | DRG 812 ==
LOC: NEDA 03:11 → NEPC 03:11 → NEDA 07:30
PROVIDERS: ADMIT Family Medicine; ATTEND Family Medicine
CPT/HCPCS: 80053; 85025; 85044; 86850; 86900; 86901; 86923; 90761; 90774; 90775; 90784; 96361; 96374; 96375; 99285; C8952; J1170; J1200; J2405; J7030

== ENCOUNTER 2018-05-20 03:03 | Inpatient (IN) ==
[2018-05-20] MEDS ORDERED: HYDROmorphone PF Inj 1 MG/ML Ampul IV.PUSH ONE (03:38)
[2018-05-20] MEDS ORDERED: Sod Chloride 0.9% Inj 1,000 ML IV.SIG SCH (03:45)
--- NOTE | 2018-05-20 03:51 | ED ---
HPI General Chief complaint: Sickle Cell Stated complaint: Sickle Cell Time Seen by Provider: 05/20/18 03:25 Source: patient Mode of arrival: ambulatory Limitations: no limitations History of Present Illness HPI narrative: The patient is a 32 year old female who presents to the [facility] emergency department with a history of developing pain all over, worse in her upper and lower extremities and low back that began on May 15. The patient has a history of sickle cell anemia with frequent sickle cell pain crises. The patient on May 16 was seen in the emergency department and at that time was admitted for a blood transfusion. The patient unfortunately left AGAINST MEDICAL ADVICE. The patient was again seen yesterday in the emergency department by me with similar concerns and again was noted to have a low hemoglobin that would require transfusion for relief of her sickle cell pain crisis, however the patient again ended up leaving AGAINST MEDICAL ADVICE as she needed to arrange for care of her child. The patient presents today with similar concerns including continued pain in her upper and lower extremities and low back as well as her chest. She denies having any shortness of breath, cough or congestion. She denies having any nausea, vomiting, or diarrhea. She reports that earlier in the day she did have an elevated temperature with a T- max of 100.8. On review of systems otherwise, the patient denies having any neck pain, abdominal pain, urinary symptoms, or neurologic symptoms. LMP: May 15, 2018 Related Data Home Medications Medication Instructions Recorded Confirmed folic acid 0.4 mg PO DAILY 11/08/17 05/20/18 multivitamin [Multiple Vitamins] 1 tab PO DAILY 01/21/18 05/20/18 hydrocodone-acetaminophen [[place]] 1 tab PO Q4-6H PRN 02/19/18 05/20/18 Allergies Allergy/AdvReac Type Severity Reaction Status Date / Time morphine Allergy Rash, Verified 05/19/18 03:36 Generalized Review of Systems ROS: all other systems reviewed are negative [facility] Medical History Medical History Port-A-Cath in place (Acute) Tubal ligation status (Acute) Sickle cell anemia (Acute) Nephrolithiasis (Acute) Surgical History Surgical History Hx of cholecystectomy (Acute) Hx of tonsillectomy (Acute) Family History Family History Daughter Sickle cell anemia Mother Sickle cell trait Father Sickle cell trait Social History Social History Substance History: No History of Abuse Second Hand Smoke Exposure: No Smoking Status: Never smoker How Often Do You Have a Drink Containing Alcohol: Never Recent Travel in [facility] within the Last 8 Weeks: No Recent Out of Country Travel within the Last 8 Weeks: No Immunization History Tetanus Immunization: <5 Years Exam Const General: cooperative, no acute distress and well developed Nutritional Appearance: well nourished Orientation: alert, awake and oriented x3 HENMT Head: normocephalic and atraumatic Nose: no nasal discharge and no epistaxis Mouth: moist mucous membranes Throat: posterior oropharynx normal and uvula midline Eyes Sclera: scleral abnormality (Bilateral scleral icterus is noted.) Pupils: PERRL Neck Neck: no meningeal signs, trachea midline and no JVD Resp Effort & Inspection: no use of accessory muscles Auscultation: clear to auscultation bilaterally Cardio Rate: regular rate Rhythm: regular rhythm Heart Sounds: no murmurs GI Inspection: non-distended Palpation: soft, no hepatosplenomegaly and nontender Back/Spine/Pelvis Back: no CVA tenderness Thoracic/Lumbar Spine: paraspinal tenderness Skin General: dry skin (warm) Neuro General: alert, awake, oriented x3 and other (Grossly nonfocal) Speech: speech normal Motor: no movement abnormalities noted Extrem General: normal to inspection (2+ pulses in all 4 extremities, no joint erythema or edema noted.), no calf tenderness, no clubbing, no cyanosis and no edema Right upper extremity: normal to inspection and full ROM; no edema Left upper extremity: normal to inspection and full ROM; no edema Right lower extremity: normal to inspection and full ROM; no edema Left lower extremity: normal to inspection and full ROM; no edema Psych Mood: congruent mood Affect: normal affect Judgment: judgment good Course Initial Documented Vital Signs Temperature 99.5 F 05/20/18 03:12 Pulse Rate 92 H 05/20/18 03:12 Respiratory Rate 18 05/20/18 03:12 Blood Pressure 132/73 05/20/18 03:12 Pulse Oximetry 92 L 05/20/18 03:12 Last Documented Vital Signs Temperature 99.5 F 05/20/18 03:12 Pulse Rate 92 H 05/20/18 03:12 Respiratory Rate 18 05/20/18 03:12 Blood Pressure 132/73 05/20/18 03:12 Pulse Oximetry 92 L 05/20/18 03:12 Medical Decision Making MDM Narrative Medical decision making narrative: During the course of the patient's emergency department visit, the patient's history, examination, and differential diagnosis were reviewed with the patient. The patient was placed on a monitor tech with oximetry and frequent blood pressure monitoring. The patient had IV access obtained and blood work sent for analysis. A diagnostic evaluation was started regarding the patient's generalized pain that she reports is related to his sickle cell pain crisis. The patient on last evaluation left AGAINST MEDICAL ADVICE prior to receiving a blood transfusion that reportedly would be recommended by her corporate director of pharmacy for hemoglobin of 6.8. The patient reports that since leaving AGAINST MEDICAL ADVICE she has arranged for care for her child and plans to stay if a blood transfusion is required. The patient was initially provided hydromorphone 1 mg IV, Zofran 4 mg IV, Benadryl 25 mg IV, normal saline 1 L IV fluid bolus. The patient's diagnostic studies are remarkable for a white count of 9, hemoglobin is 6.1 for which the patient was typed and crossmatched for 2 units of packed red blood cells, 1 unit to be administered and 1 unit to be placed on hold, Platelets are 281, lymphocytes 45, monocytes 9.2, reticulocyte count is 12.9, chemistry is remarkable for potassium 3.4, chloride 111, BUN 5, creatinine 0.40, calcium 7.5, total bilirubin is 2.2, AST 65, albumin 3.0. The patient's case including history, pertinent physical examination findings, and laboratory studies were discussed with Dr. Hurst. It was agreed that the patient would be admitted to the hospitalist service. The patient's results were discussed with the patient, including the plan of care. I explained that further testing and/ or monitoring is indicated based on the patient's history, examination, and/ or laboratory findings. Therefore, I recommended admission for additional evaluation. The patient expressed understanding and was agreeable with this plan. The patient was admitted to the hospital in stable condition and sent to a bed under the care of the [facility] service. Medical Screen Exam Complete: Yes Emergency Medical Condition: Yes Differential Diagnosis Differential Diagnosis: Sickle cell pain crisis, versus symptomatic anemia, versus arthralgias, versus viral syndrome, versus septic arthritis Medical Records Medical records reviewed: Yes I reviewed the patient's medical records. Lab Data Lab results reviewed: Yes I reviewed the patient's lab results. Result diagrams: 05/20/18 04:00 05/20/18 05:02 Lab Results 05/20/18 05/20/18 05/20/18 Range/Units 04:00 04:32 04:32 WBC 9.0 (4.0-11.0) th/mm3 RBC 1.90 L (4.00-5.30) mil/mm3 Hgb 6.1 L* (11.6-15.3) gm/dL Hct 16.4 L* (35.0-46.0) % MCV 86.3 (80.0-100.0) fL MCH 32.3 (27.0-34.0) pg MCHC 37.4 H (32.0-36.0) % RDW 26.5 H (11.6-17.2) % Plt Count 281 (150-450) th/mm3 MPV 7.8 (7.0-11.0) fL Prelim Diff (Auto) Slide review pending Neut % (Auto) 41.1 (16.0-70.0) % Lymph % (Auto) 45.0 H (9.0-44.0) % [place] % (Auto) 9.2 H (0.0-8.0) % Eos % (Auto) 4.0 (0.0-4.0) % Baso % (Auto) 0.7 (0.0-2.0) % Neut # (Auto) 3.7 (1.8-7.7) th/mm3 Lymph # (Auto) 4.0 (1.0-4.8) th/mm3 [place] # (Auto) 0.8 (0.0-0.9) th/mm3 Eos # (Auto) 0.4 (0.0-0.4) th/mm3 Baso # (Auto) 0.1 (0.0-0.2) th/mm3 WBC Differential Manual diff final Seg Neuts % (Manual) 55 (16-70) % Band Neuts % (Manual) 1 (0-6) % Lymphocytes % (Manual) 35 (9-44) % Monocytes % (Manual) 7 (0-8) % Eosinophils % (Manual) 2 (0-4) % Abs Neuts (Manual) 5.0 (1.8-7.7) th/mm3 Nucleated RBCs/100 WBC 20 H (0-0) /100 WBC Differential Comment . Platelet Estimate Normal (Normal) Platelet Morphology Normal (Normal) Basophilic Stippling Faint H (None) Sickle Cells 1+ H (None) Target Cells 1+ H (None) Keratocytes Occ H (None) Retic Count 12.9 H (0.4-3.0) % Absolute Retic 243.8 H (20.0-150.0) mil/L Sodium (136-145) meq/L Potassium (3.5-5.1) meq/L Chloride (98-107) meq/L Carbon Dioxide (21.0-32.0) meq/L Anion Gap (5-15) meq/L BUN (7-18) mg/dL Creatinine (0.50-1.00) mg/dL Estimated GFR (>89) mL/min Random Glucose (74-106) mg/dL Calcium (8.5-10.1) mg/dL Total Bilirubin (0.2-1.0) mg/dL AST (15-37) U/L ALT (10-53) U/L Alkaline Phosphatase (45-117) U/L Total Protein (6.4-8.2) g/dL Albumin (3.4-5.0) g/dL Blood Type B Positive Blood Type Recheck Not needed Antibody Screen Negative MTS Gel Crossmatch See Detail Bld Prod Order Comment 05/20/18 Range/Units 05:02 WBC (4.0-11.0) th/mm3 RBC (4.00-5.30) mil/mm3 Hgb (11.6-15.3) gm/dL Hct (35.0-46.0) % MCV (80.0-100.0) fL MCH (27.0-34.0) pg MCHC (32.0-36.0) % RDW (11.6-17.2) % Plt Count (150-450) th/mm3 MPV (7.0-11.0) fL Prelim Diff (Auto) Neut % (Auto) (16.0-70.0) % Lymph % (Auto) (9.0-44.0) % [place] % (Auto) (0.0-8.0) % Eos % (Auto) (0.0-4.0) % Baso % (Auto) (0.0-2.0) % Neut # (Auto) (1.8-7.7) th/mm3 Lymph # (Auto) (1.0-4.8) th/mm3 [place] # (Auto) (0.0-0.9) th/mm3 Eos # (Auto) (0.0-0.4) th/mm3 Baso # (Auto) (0.0-0.2) th/mm3 WBC Differential Seg Neuts % (Manual) (16-70) % Band Neuts % (Manual) (0-6) % Lymphocytes % (Manual) (9-44) % Monocytes % (Manual) (0-8) % Eosinophils % (Manual) (0-4) % Abs Neuts (Manual) (1.8-7.7) th/mm3 Nucleated RBCs/100 WBC (0-0) /100 WBC Differential Comment Platelet Estimate (Normal) Platelet Morphology (Normal) Basophilic Stippling (None) Sickle Cells (None) Target Cells (None) Keratocytes (None) Retic Count (0.4-3.0) % Absolute Retic (20.0-150.0) mil/L Sodium 142 (136-145) meq/L Potassium 3.4 L (3.5-5.1) meq/L Chloride 111 H (98-107) meq/L Carbon Dioxide 24.7 (21.0-32.0) meq/L Anion Gap 6 (5-15) meq/L BUN 5 L (7-18) mg/dL Creatinine 0.40 L (0.50-1.00) mg/dL Estimated GFR Greater than 89 (>89) mL/min Random Glucose 81 (74-106) mg/dL Calcium 7.5 L (8.5-10.1) mg/dL Total Bilirubin 2.2 H (0.2-1.0) mg/dL AST 65 H (15-37) U/L ALT 14 (10-53) U/L Alkaline Phosphatase 79 (45-117) U/L Total Protein 6.9 D (6.4-8.2) g/dL Albumin 3.0 L (3.4-5.0) g/dL Blood Type Blood Type Recheck Antibody Screen MTS Gel Crossmatch Bld Prod Order Comment Discharge Plan Discharge Disposition Patient Disposition: ED Admit(ED Internal Use Only) Discharge Order Discharge Orders: ED Use Only Admit Order (Routine); Ordered 05/20/18 Ordered By: Mignon Lin Discharge Details Diagnosis: Sickle cell anemia Physicians Team ED Provider: Mignon Lin Primary Care Provider: Primary Care Dora Akins Attending Provider: Sheri Hurst Status ED Status: Admitted Observation Patient
[2018-05-20 04:16] LABS: Baso # (Auto) 0.1 th/mm3 (0.0-0.2); Baso % (Auto) 0.7 % (0.0-2.0); Eos # (Auto) 0.4 th/mm3 (0.0-0.4); Mean Corpuscular Hemoglobin 32.3 pg (27.0-34.0); Mean Corpuscular Volume 86.3 fL (80.0-100.0); Mean Platelet Volume 7.8 fL (7.0-11.0); Mono # (Auto) 0.8 th/mm3 (0.0-0.9); Mono % (Auto) 9.2 % (0.0-8.0); Neut # (Auto) 3.7 th/mm3 (1.8-7.7); Neut % (Auto) 41.1 % (16.0-70.0); Platelet Count 281 th/mm3 (150-450); Red Cell Distribution Width 26.5 % (11.6-17.2); Reticulocyte Percent 12.9 % (0.4-3.0)
[2018-05-20 04:27] LABS: Mean Corpuscular HGB Conc 37.4 % (32.0-36.0)
[2018-05-20 04:28] LABS: Hematocrit 16.4 % (35.0-46.0); Hemoglobin 6.1 gm/dL (11.6-15.3)
[2018-05-20] MEDS ORDERED: Sodium Chlor 0.9% Inj 250 ML IV.SIG SCH (05:00)
[2018-05-20] MEDS ORDERED: HYDROmorphone PF Inj 2 MG/ML Vial IV.PUSH ONE (05:27)
[2018-05-20 05:29] LABS: Eosinophils 2 % (0-4); Lymphocytes 35 % (9-44); Monocytes 7 % (0-8); Platelet Estimate Normal (Normal); Platelet Morphology Normal (Normal); Tallied Nucleated RBC 20 (0-0)
[2018-05-20 05:30] LABS: Sickle Cells 1+; Target Cells 1+
[2018-05-20 05:48] LABS: Alanine Aminotransferase 14 U/L (10-53); Alkaline Phosphatase 79 U/L (45-117); Anion Gap 6 meq/L (5-15); Aspartate Aminotransferase 65 U/L (15-37); Blood Urea Nitrogen 5 mg/dL (7-18); Calcium 7.5 mg/dL (8.5-10.1); Carbon Dioxide 24.7 meq/L (21.0-32.0); Chloride 111 meq/L (98-107); Glomerular Filtration Rate Greater Than 89 mL/min (>89); Glucose,Random 81 mg/dL (74-106); Potassium 3.4 meq/L (3.5-5.1); Sodium 142 meq/L (136-145); Total Protein 6.9 g/dL (6.4-8.2)
[2018-05-20] MEDS ORDERED: Bisacodyl 10 MG Supp RECTAL PRN (05:53)
[2018-05-20] MEDS ORDERED: Acetaminophen 325 MG Tablet PO PRN (05:53)
[2018-05-20] MEDS: Senna/Docusate Sodium 8.6/50 MG Tablet PO SCH ×2 (09:00→20:14)
[2018-05-20] MEDS: Folic Acid 1 MG Tablet PO SCH (10:52)
[2018-05-20] MEDS ORDERED: HYDROmorphone PF Inj 1 MG/ML Ampul IV.PUSH PRN (11:00)
[2018-05-20] MEDS: HYDROmorphone PF Inj 1 MG/ML Ampul IV.PUSH PRN ×5 (11:59→23:57)
--- NOTE | 2018-05-20 12:40 | P.HPIM ---
History of Present Illness Primary Care Physician: No Primary Care Physician Chief Complaint: Pain History of Present Illness: The patient is a 32-year-old female with past medical history of sickle cell disease who is presenting to the hospital with pain. The patient says she recently came to the hospital but was unable to stay because she had to make sure her son was well situated so she left. She represents to the hospital with severe pain in her legs, in her back and in her arms. She says she received a unit of blood and she was waiting for the results of her repeat blood count. She says her blood transfusion stopped early this morning. She says she has not received pain medication in several hours and was in extreme pain. She says that she needs Benadryl with her Dilaudid because she sometimes gets very itchy from the Dilaudid. She denies any shortness of breath or chest pain. She has been tolerating a diet. 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 Discussed with nursing. Diagnosis (1) Tubal ligation status: Inpatient Certification Inpatient Certification: I certify that the inpatient services were ordered in accordance with Medicare regulations governing the order. This includes certification that hospital inpatient services are reasonable and necessary and in the case of services not specified as inpatient-only under 42 CFR 419.22(n), that they are appropriately provided as inpatient services in accordance to with the 2-midnight benchmark under 43 CFR 412.3(e) Estimated Total Length of Stay (Days): 2 Plans for Post Hospital Care: Home Review of Systems Review of Systems: all other systems reviewed are negative [facility] Medical History Medical History Port-A-Cath in place (Acute) Tubal ligation status (Acute) Sickle cell anemia (Acute) Nephrolithiasis (Acute) Surgical History Surgical History Hx of cholecystectomy (Acute) Hx of tonsillectomy (Acute) Family History Family History Daughter Sickle cell anemia Mother Sickle cell trait Father Sickle cell trait Social History Social History Substance History: No History of Abuse Second Hand Smoke Exposure: No Smoking Status: Never smoker How Often Do You Have a Drink Containing Alcohol: Never Recent Travel in [facility] within the Last 8 Weeks: No Recent Out of Country Travel within the Last 8 Weeks: No Immunization History Tetanus Immunization: <5 Years Medications and Allergies Allergies Allergy/AdvReac Type Severity Reaction Status Date / Time morphine Allergy Rash, Verified 05/19/18 03:36 Generalized Home Medications Medication Instructions Recorded Confirmed Type folic acid 0.4 mg PO DAILY 11/08/17 05/20/18 History multivitamin [Multiple Vitamins] 1 tab PO DAILY 01/21/18 05/20/18 History hydrocodone-acetaminophen [[place]] 1 tab PO Q4-6H PRN 02/19/18 05/20/18 History Active Medications: Active Medications Acetaminophen (Tylenol) 650 mg PO Q4H PRN PRN Reason: Temp > 100.4 Al Hydroxide/Mg Hydroxide (Milk Of Magnesia Liq) 30 ml PO Q12H PRN PRN Reason: Mild Constipation Bisacodyl (Dulcolax Supp) 10 mg RECTAL DAILY PRN PRN Reason: SEVERE CONSITIPATION Diphenhydramine HCl (Benadryl Inj) 25 mg IV.PUSH Q6H PRN PRN Reason: ITCHING Last Admin: 05/20/18 11:52 Dose: 25 mg Folic Acid (Folic Acid) 1 mg PO DAILY [facility] Last Admin: 05/20/18 10:52 Dose: 1 mg Hydromorphone HCl (Dilaudid Pf Inj) 2 mg IV.PUSH Q3H PRN PRN Reason: pain 6-10 Last Admin: 05/20/18 11:59 Dose: 2 mg Sodium Chloride (Ns Inj) 250 mls @ 15 mls/hr IV.SIG ONCE [facility] Stop: 05/20/18 21:39 Lactulose (Lactulose Liq) 30 ml PO DAILY PRN PRN Reason: SEVERE CONSITIPATION Multivitamins (Theragran) 1 tab PO DAILY [facility] Last Admin: 05/20/18 10:52 Dose: 1 tab Ondansetron HCl (Zofran Inj) 4 mg IV.PUSH Q6H PRN PRN Reason: NAUSEA OR VOMITING Senna/Docusate Sodium (Leticia-Colace) 1 tab PO BID [facility] Last Admin: 05/20/18 09:00 Dose: Not Given Sennosides (Senokot) 17.2 mg PO Q12H PRN PRN Reason: Moderate Constipation Sodium Chloride (Ns Flush) 2 ml IV.FLUSH PRN PRN PRN Reason: FLUSH AFTER USING IV ACCESS Sodium Chloride (Ns Flush) 2 ml IV.FLUSH BID [facility] Last Admin: 05/20/18 11:51 Dose: 2 ml Sodium Chloride (Ns Flush) 2 ml IV.FLUSH PRN PRN PRN Reason: FLUSH AFTER USING IV ACCESS Physical Exam Vital signs: Vital Signs 05/20/18 03:12 05/20/18 03:38 05/20/18 06:00 Temperature 99.5 F 99.4 F Pulse Rate 92 H 80 88 Respiratory Rate 18 16 Blood Pressure 132/73 108/72 Pulse Oximetry 92 L 92 L 92 L 05/20/18 06:19 05/20/18 07:45 05/20/18 12:09 Temperature 98.7 F 98.7 F 98.7 F Pulse Rate 87 81 Respiratory Rate 16 16 Blood Pressure 108/73 112/80 110/70 Pulse Oximetry 92 L Intake & Output 05/19/18 05/20/18 05/20/18 18:59 06:59 18:59 Intake Total 1000 / 1000 400 / 400 Balance 1000 / 1000 400 / 400 Weight 59.874 kg Intake: IV 1000 / 1000 NS Inj 1,000 ML @ 1000 mls/hr 1000 / 1000 IV.SIG .Q1H [facility] Rx#:[id number] Intake (Blood Product) Amt 0 / 0 400 / 400 Rbc As-3 Leukoreduced Unit 0 / 0 400 / 400 [id number] Narrative: General: Appears uncomfortable from pain HEENT: NC, AT Lungs: CTAB. No W/R/R Cardiac: RRR. No M/R/G Abdomen: Soft, NT, ND Extremities: No edema. Neuro: No gross deficits Results Labs CBC & Chem 7: 05/20/18 04:00 05/20/18 05:02 Caprini VTE Risk Assessment Caprini VTE Risk Assessment: Moderate/High Risk (score >= 2) Caprini Risk Assessment Model: Point Value = 1 Point Value = 2 Point Value = 3 Point Value = 5 Age 41-60 Minor surgery BMI > 25 kg/m2 Swollen legs Varicose veins or History of unexplained or recurrent spontaneous Oral contraceptives or hormone replacement Sepsis (< 1 month) Serious lung disease, including pneumonia (< 1 month) Abnormal pulmonary function Acute myocardial infarction Congestive heart failure (< 1 month) History of inflammatory bowel disease Medical patient at bed rest Age 61-74 Arthroscopic surgery Major open surgery (> 45 min) Laparoscopic surgery (> 45 min) Malignancy Confined to bed (> 72 hours) Immobilizing plaster cast Central venous access Age >= 75 History of VTE Family history of VTE Factor V Leiden Prothrombin [id number] Lupus anticoagulant Anticardiolipin antibodies Elevated serum homocysteine Heparin-induced thrombocytopenia Other congenital or acquired thrombophilia Stroke (< 1 month) Elective arthroplasty Hip, pelvis, or leg fracture Acute spinal cord injury (< 1 month) Prophylaxis Regimen: Total Risk Factor Score Risk Level Prophylaxis Regimen 0-1 Low Early ambulation 2 Moderate Order ONE of the following: *Sequential Compression Device (SCD) *Heparin 5000 units SQ BID 3-4 Higher Order ONE of the following medications: *Heparin 5000 units SQ TID *Enoxaparin/Lovenox 40 mg SQ daily (WT < 150 kg, CrCl > 30 mL/min) *Enoxaparin/Lovenox 30 mg SQ daily (WT < 150 kg, CrCl > 10-29 mL/min) *Enoxaparin/Lovenox 30 mg SQ BID (WT < 150 kg, CrCl > 30 mL/min) AND/OR *Sequential Compression Device (SCD) 5 or more Highest Order ONE of the following medications: *Heparin 5000 units SQ TID (Preferred with Epidurals) *Enoxaparin/Lovenox 40 mg SQ daily (WT < 150 kg, CrCl > 30 mL/min) *Enoxaparin/Lovenox 30 mg SQ daily (WT < 150 kg, CrCl > 10-29 mL/min) *Enoxaparin/Lovenox 30 mg SQ BID (WT < 150 kg, CrCl > 30 mL/min) AND *Sequential Compression Device (SCD) Assessment and Plan (1) Tubal ligation status: Code(s): Z98.51 - Tubal ligation status Status: Acute Plan Sickle cell disease/severe anemia The patient presents with severe anemia and generalized pain. She received a unit of red blood cells in the emergency department. -Repeat CBC and transfuse additionally as indicated. -Pain control with IV Dilaudid. -IVFs. -hematology consult as needed. Hypokalemia Potassium 3.2 on admission. -replete and monitor. -check a magnesium level. Hypoxemia CXR unremarkable. -oxygen as needed. -nebs as needed. -encourage ambulation. PPx: SCDs
[2018-05-20 13:53] LABS: Mean Corpuscular HGB Conc 37.1 % (32.0-36.0); Mean Corpuscular Hemoglobin 32.8 pg (27.0-34.0); Mean Corpuscular Volume 88.3 fL (80.0-100.0); Mean Platelet Volume 7.9 fL (7.0-11.0); Platelet Count 280 th/mm3 (150-450); Red Blood Count 2.31 mil/mm3 (4.00-5.30); Red Cell Distribution Width 22.2 % (11.6-17.2); White Blood Count 7.9 th/mm3 (4.0-11.0)
[2018-05-20 13:56] LABS: Hematocrit 20.4 % (35.0-46.0); Hemoglobin 7.6 gm/dL (11.6-15.3)
[2018-05-20] MEDS: Sod Chloride 0.9% Inj 1,000 ML IV.CONT SCH ×2 (14:36→23:56)
[2018-05-21] MEDS: HYDROmorphone PF Inj 1 MG/ML Ampul IV.PUSH PRN ×7 (03:06→21:36)
[2018-05-21 06:46] LABS: Mean Corpuscular Hemoglobin 32.3 pg (27.0-34.0); Mean Corpuscular Volume 86.9 fL (80.0-100.0); Mean Platelet Volume 7.9 fL (7.0-11.0); Platelet Count 295 th/mm3 (150-450); Red Blood Count 2.35 mil/mm3 (4.00-5.30); Red Cell Distribution Width 23.2 % (11.6-17.2); White Blood Count 8.3 th/mm3 (4.0-11.0)
[2018-05-21 07:07] LABS: Mean Corpuscular HGB Conc 37.2 % (32.0-36.0)
[2018-05-21 07:12] LABS: Hematocrit 20.5 % (35.0-46.0); Hemoglobin 7.6 gm/dL (11.6-15.3)
[2018-05-21 07:21] LABS: Anion Gap 3 meq/L (5-15); Blood Urea Nitrogen 4 mg/dL (7-18); Calcium 7.9 mg/dL (8.5-10.1); Carbon Dioxide 27.1 meq/L (21.0-32.0); Chloride 110 meq/L (98-107); Glomerular Filtration Rate Greater Than 89 mL/min (>89); Glucose,Random 90 mg/dL (74-106); Magnesium 1.6 mg/dL (1.5-2.5); Potassium 3.9 meq/L (3.5-5.1)
[2018-05-21 07:30] LABS: Sodium 140 meq/L (136-145)
[2018-05-21] MEDS: Sod Chloride 0.9% Inj 1,000 ML IV.CONT SCH ×4 (09:36→21:36)
[2018-05-21] MEDS: Senna/Docusate Sodium 8.6/50 MG Tablet PO SCH ×2 (09:48→20:34)
[2018-05-21] MEDS: Folic Acid 1 MG Tablet PO SCH (09:48)
--- NOTE | 2018-05-21 11:45 | P.PNIM ---
Subjective Interval history: The pt was still having pain in her arms, legs and back. She said the pain meds helped. Tolerating a diet. Ambulating. No chest pain or shortness of breath. Physical Exam Vital signs: Vital Signs 05/20/18 12:09 05/20/18 16:31 05/20/18 19:54 Temperature 98.7 F 97.1 F L 96.9 F L Pulse Rate 81 88 83 Respiratory Rate 16 16 20 Blood Pressure 110/70 126/85 124/72 Pulse Oximetry 92 L 91 L 05/21/18 00:00 05/21/18 03:59 05/21/18 07:30 Temperature 97.2 F L 97.8 F 98.6 F Pulse Rate 88 85 83 Respiratory Rate 20 20 16 Blood Pressure 104/65 115/56 L 118/81 Pulse Oximetry 97 95 81 L Intake & Output 05/20/18 05/21/18 05/21/18 18:59 06:59 18:59 Intake Total 400 / 400 1000 / 1000 1000 / 1000 Balance 400 / 400 1000 / 1000 1000 / 1000 Weight 59.87 kg Intake: IV 1000 / 1000 1000 / 1000 NS Inj 1,000 ML @ 100 mls/hr IV 1000 / 1000 1000 / 1000 .CONT .Q10H [facility] Rx#:[id number] Intake (Blood Product) Amt 400 / 400 Rbc As-3 Leukoreduced Unit 400 / 400 [id number] Other: Date of Last Bowel Movement 05/20/18 Weight On Admission 59.874 kg Narrative: General: Appears uncomfortable from pain HEENT: NC, AT Lungs: CTAB. No W/R/R Cardiac: RRR. No M/R/G Abdomen: Soft, NT, ND Extremities: No edema. Neuro: No gross deficits Results Labs CBC & Chem 7: 05/21/18 06:19 05/21/18 06:19 Assessment and Plan (1) Tubal ligation status: Code(s): Z98.51 - Tubal ligation status Status: Acute Plan Sickle cell disease/severe anemia The patient presents with severe anemia and generalized pain. She received a unit of red blood cells in the emergency department. -Repeat CBC and transfuse additionally as indicated. Stable at this time. -Pain control with IV Dilaudid. -continue IVFs. -hematology consult as needed. Hypokalemia Potassium 3.2 on admission. -replete and monitor. -check a magnesium level. Hypoxemia CXR unremarkable. -oxygen as needed. -nebs as needed. -encourage ambulation. PPx: SCDs Progress Note: Quality VTE Deep Vein Thrombosis/Pulmonary Embolism Present on Admission: No
[2018-05-22] MEDS: HYDROmorphone PF Inj 1 MG/ML Ampul IV.PUSH PRN ×8 (00:30→23:34)
[2018-05-22] MEDS: Sod Chloride 0.9% Inj 1,000 ML IV.CONT SCH ×3 (06:00→20:47)
[2018-05-22 07:01] LABS: Baso # (Auto) 0.1 th/mm3 (0.0-0.2); Baso % (Auto) 0.6 % (0.0-2.0); Eos % (Auto) 11.7 % (0.0-4.0); Hematocrit 22.3 % (35.0-46.0); Hemoglobin 8.1 gm/dL (11.6-15.3); Lymph # (Auto) 3.6 th/mm3 (1.0-4.8); Lymph % (Auto) 41.8 % (9.0-44.0); Mean Corpuscular Hemoglobin 31.8 pg (27.0-34.0); Mean Corpuscular Volume 87.7 fL (80.0-100.0); Mono # (Auto) 0.8 th/mm3 (0.0-0.9); Neut # (Auto) 3.2 th/mm3 (1.8-7.7); Neut % (Auto) 36.9 % (16.0-70.0); Platelet Count 329 th/mm3 (150-450); Red Blood Count 2.54 mil/mm3 (4.00-5.30); Red Cell Distribution Width 23.5 % (11.6-17.2); White Blood Count 8.7 th/mm3 (4.0-11.0)
[2018-05-22 07:14] LABS: Mean Corpuscular HGB Conc 36.3 % (32.0-36.0)
[2018-05-22 07:26] LABS: Anion Gap 9 meq/L (5-15); Blood Urea Nitrogen 7 mg/dL (7-18); Calcium 8.4 mg/dL (8.5-10.1); Carbon Dioxide 24.4 meq/L (21.0-32.0); Chloride 106 meq/L (98-107); Glomerular Filtration Rate Greater Than 89 mL/min (>89); Glucose,Random 88 mg/dL (74-106); Magnesium 1.6 mg/dL (1.5-2.5); Sodium 139 meq/L (136-145)
[2018-05-22 08:14] LABS: Eosinophils 11 % (0-4); Lymphocytes 36 % (9-44); Monocytes 4 % (0-8); Tallied Nucleated RBC 8 (0-0)
[2018-05-22 08:15] LABS: Platelet Estimate Normal (Normal); Platelet Morphology Normal (Normal); Polychromasia 3.2 % (0.0-1.9); Sickle Cells 2+; Target Cells 1+
[2018-05-22 08:16] LABS: Pappenheimer Bodies Present
--- NOTE | 2018-05-22 10:51 | P.PNIM ---
Subjective Interval history: The patient was upset because her nurse was not giving her pain medications on time. She also stated multiple times that she did not refuse any vital signs. She still has pain in her arms back and legs. Discussed with nursing. Physical Exam Vital signs: Vital Signs 05/21/18 16:00 05/21/18 23:19 05/22/18 08:00 Temperature 97.5 F L 98.5 F 97.6 F Pulse Rate 92 H 88 82 Respiratory Rate 16 16 14 Blood Pressure 110/66 108/69 130/61 Pulse Oximetry 92 L 91 L Intake & Output 05/21/18 05/22/18 05/22/18 18:59 06:59 18:59 Intake Total 999 Balance 999 Intake: IV 999 / 999 NS Inj 1,000 ML @ 100 mls/hr IV 999 / 999 .CONT .Q10H [facility] Rx#:[id number] Other: Date of Last Bowel Movement 05/20/18 Narrative: General: No distress HEENT: NC, AT Lungs: CTAB. No W/R/R Cardiac: RRR. No M/R/G Abdomen: Soft, NT, ND Extremities: No edema. Neuro: No gross deficits Results Labs CBC & Chem 7: 05/22/18 06:25 05/22/18 06:25 Assessment and Plan (1) Tubal ligation status: Code(s): Z98.51 - Tubal ligation status Status: Acute Plan Sickle cell disease/severe anemia The patient presents with severe anemia and generalized pain. She received a unit of red blood cells in the emergency department. -Repeat CBC and transfuse additionally as indicated. Continues to improve. -continue pain control with IV Dilaudid. -continue IVFs. -hematology consult as needed. Hypokalemia Potassium 3.2 on admission. -replete and monitor. Resolved. Hypoxemia CXR unremarkable. -oxygen as needed. -nebs as needed. -encourage ambulation. PPx: SCDs Progress Note: Quality VTE Deep Vein Thrombosis/Pulmonary Embolism Present on Admission: No
[2018-05-22] MEDS: Senna/Docusate Sodium 8.6/50 MG Tablet PO SCH ×2 (10:58→21:09)
[2018-05-22] MEDS: Folic Acid 1 MG Tablet PO SCH (10:58)
[2018-05-23] MEDS: Sod Chloride 0.9% Inj 1,000 ML IV.CONT SCH (02:47)
[2018-05-23] MEDS: HYDROmorphone PF Inj 1 MG/ML Ampul IV.PUSH PRN ×8 (02:54→23:43)
[2018-05-23 07:01] LABS: Baso # (Auto) 0.1 th/mm3 (0.0-0.2); Baso % (Auto) 0.8 % (0.0-2.0); Eos # (Auto) 0.9 th/mm3 (0.0-0.4); Eos % (Auto) 10.8 % (0.0-4.0); Hemoglobin 8.1 gm/dL (11.6-15.3); Lymph # (Auto) 3.3 th/mm3 (1.0-4.8); Lymph % (Auto) 40.5 % (9.0-44.0); Mean Corpuscular Hemoglobin 32.1 pg (27.0-34.0); Mean Corpuscular Volume 87.5 fL (80.0-100.0); Mean Platelet Volume 7.8 fL (7.0-11.0); Mono # (Auto) 0.9 th/mm3 (0.0-0.9); Mono % (Auto) 10.6 % (0.0-8.0); Neut # (Auto) 3.1 th/mm3 (1.8-7.7); Neut % (Auto) 37.3 % (16.0-70.0); Platelet Count 309 th/mm3 (150-450); Red Blood Count 2.52 mil/mm3 (4.00-5.30); Red Cell Distribution Width 24.2 % (11.6-17.2); White Blood Count 8.2 th/mm3 (4.0-11.0)
[2018-05-23 07:07] LABS: Mean Corpuscular HGB Conc 36.7 % (32.0-36.0)
[2018-05-23 08:01] LABS: Eosinophils 9 % (0-4); Lymphocytes 51 % (9-44); Monocytes 9 % (0-8); Platelet Estimate Normal (Normal); Platelet Morphology Normal (Normal); Tallied Nucleated RBC 11 (0-0)
[2018-05-23 08:02] LABS: Howell-Jolly Bodies Present; Sickle Cells 3+
[2018-05-23 08:03] LABS: Pappenheimer Bodies Present
[2018-05-23] MEDS: Folic Acid 1 MG Tablet PO SCH (09:30)
[2018-05-23] MEDS: Senna/Docusate Sodium 8.6/50 MG Tablet PO SCH ×2 (09:30→21:47)
--- NOTE | 2018-05-23 10:23 | P.PNIM ---
Subjective Interval history: The patient says she was still in pain. She said she was not feeling well enough to go home yet. She has been having bowel movements. Physical Exam Vital signs: Vital Signs 05/22/18 12:00 05/22/18 16:00 05/22/18 20:00 Temperature 98.6 F 99.2 F 98.5 F Pulse Rate 83 92 H 97 H Respiratory Rate 16 14 16 Blood Pressure 104/61 139/97 H 123/66 Pulse Oximetry 95 97 91 L 05/22/18 23:00 05/23/18 03:23 05/23/18 03:35 Temperature 98.6 F 98.3 F Pulse Rate 94 H 92 H Respiratory Rate 16 16 16 Blood Pressure 125/72 120/64 Pulse Oximetry 90 L 05/23/18 05:37 05/23/18 07:47 Temperature 98.5 F Pulse Rate 86 Respiratory Rate 20 Blood Pressure 103/62 Pulse Oximetry 91 L 92 L Intake & Output 05/22/18 05/23/18 05/23/18 18:59 06:59 18:59 Intake Total 0 / 0 1999 Balance 0 / 0 1999 Intake: IV 0 / 0 1999 NS Inj 1,000 ML @ 100 mls/hr IV 0 / 0 1999 .CONT .Q10H [facility] Rx#:[id number] Other: Date of Last Bowel Movement 05/22/18 Narrative: General: No distress HEENT: NC, AT Lungs: CTAB. No W/R/R Cardiac: RRR. No M/R/G Abdomen: Soft, NT, ND Extremities: No edema. Neuro: No gross deficits Results Labs CBC & Chem 7: 05/23/18 06:30 05/22/18 06:25 Assessment and Plan (1) Tubal ligation status: Code(s): Z98.51 - Tubal ligation status Status: Acute Plan Sickle cell disease/severe anemia The patient presents with severe anemia and generalized pain. She received a unit of red blood cells in the emergency department. -Repeat CBC and transfuse additionally as indicated. Continues to improve. -continue pain control with IV Dilaudid. Resume home regimen upon discharge. -d/c IVFs. -hematology consult as needed. Hypokalemia Potassium 3.2 on admission. -replete and monitor. Resolved. Hypoxemia CXR unremarkable. -oxygen as needed. -nebs as needed. -encourage ambulation. PPx: SCDs Progress Note: Quality VTE Deep Vein Thrombosis/Pulmonary Embolism Present on Admission: No
[2018-05-24] MEDS: HYDROmorphone PF Inj 1 MG/ML Ampul IV.PUSH PRN ×8 (02:46→23:39)
[2018-05-24] MEDS: Folic Acid 1 MG Tablet PO SCH (08:51)
[2018-05-24] MEDS: Senna/Docusate Sodium 8.6/50 MG Tablet PO SCH ×2 (08:52→20:38)
--- NOTE | 2018-05-24 15:14 | P.PNIM ---
Subjective Interval history: Patient complains of lower back pain, she is also still having pain in her hips and lower extremities. Physical Exam Vital signs: Vital Signs 05/23/18 18:00 05/23/18 23:47 05/24/18 04:00 Temperature 97.8 F 98.4 F 98.7 F Pulse Rate 91 H 89 85 Respiratory Rate 20 16 18 Blood Pressure 135/73 113/72 114/75 Pulse Oximetry 98 96 93 L 05/24/18 08:00 Temperature 97.7 F Pulse Rate 97 H Respiratory Rate 20 Blood Pressure 115/67 Pulse Oximetry 90 L Intake & Output 05/23/18 05/24/18 05/24/18 18:59 06:59 18:59 Intake Total 1000 / 1000 Balance 1000 / 1000 Weight 60.1 kg Intake: IV 1000 / 1000 NS Inj 1,000 ML @ 100 mls/hr IV 1000 / 1000 .CONT .Q10H [facility] Rx#:[id number] Other: Date of Last Bowel Movement 05/22/18 Narrative: General patient still has complaints of lower back pain as well as pain in both of her legs. HEENT extraocular movements are intact, clear oropharyngeal mucosa, no JVD Cardiovascular S1-S2 audible, RRR, no murmurs rubs or gallops Respiratory clear to auscultation bilaterally Abdomen soft, nontender, nondistended, normal bowel sounds Extremities no edema 2+ distal pulses in bilateral upper and lower extremities Neuro cranial nerves II through XII intact Results - Labs CBC & Chem 7: 05/23/18 06:30 05/22/18 06:25 Assessment and Plan - Assessment (1) Tubal ligation status Code(s): Z98.51 - Tubal ligation status Status: Acute - Plan This patient is a 32-year-old female with a diagnosis of sickle cell disease who presents to the hospital with pain is mostly affecting her legs, back, arms. 1. Acute sickle cell pain crisis 2. Acute symptomatic anemia secondary to #1 Patient presented with the symptoms mentioned above. She is status post PRBC transfusion, currently hemoglobin is stable We will continue IV pain medications as well as p.o. pain medications. Continue IV fluids Lovenox for dvt prophylaxis.
[2018-05-25] MEDS: HYDROmorphone PF Inj 1 MG/ML Ampul IV.PUSH PRN ×5 (02:31→14:14)
[2018-05-25 03:02] LABS: Anion Gap 6 meq/L (5-15); Blood Urea Nitrogen 8 mg/dL (7-18); Calcium 8.1 mg/dL (8.5-10.1); Carbon Dioxide 26.2 meq/L (21.0-32.0); Chloride 108 meq/L (98-107); Glomerular Filtration Rate Greater Than 89 mL/min (>89); Glucose,Random 90 mg/dL (74-106); Magnesium 1.8 mg/dL (1.5-2.5); Sodium 140 meq/L (136-145)
[2018-05-25 03:09] LABS: Hematocrit 22.9 % (35.0-46.0); Hemoglobin 8.4 gm/dL (11.6-15.3); Reticulocyte Percent 5.9 % (0.4-3.0)
[2018-05-25 03:14] LABS: Lactate Dehydrogenase 1145 U/L (84-246)
[2018-05-25] MEDS: Senna/Docusate Sodium 8.6/50 MG Tablet PO SCH (08:34)
[2018-05-25] MEDS: Folic Acid 1 MG Tablet PO SCH (08:34)
--- NOTE | 2018-05-25 11:22 | P.DS ---
Date of admission: 05/20/18 10:29 Primary care physician: No Primary Care Physician Brief History from admission: The patient is a 32-year-old female with past medical history of sickle cell disease who is presenting to the hospital with pain. The patient says she recently came to the hospital but was unable to stay because she had to make sure her son was well situated so she left. She represents to the hospital with severe pain in her legs, in her back and in her arms. She says she received a unit of blood and she was waiting for the results of her repeat blood count. She says her blood transfusion stopped early this morning. She says she has not received pain medication in several hours and was in extreme pain. She says that she needs Benadryl with her Dilaudid because she sometimes gets very itchy from the Dilaudid. She denies any shortness of breath or chest pain. DS: Diagnosis - Discharge Diagnosis (1) Tubal ligation status Status: Acute DS: Summary Hospital Course: The patient is a 32-year-old female with past medical history of sickle cell disease who is presenting to the hospital with pain. The patient says she recently came to the hospital but was unable to stay because she had to make sure her son was well situated so she left. She represents to the hospital with severe pain in her legs, in her back and in her arms. 1. Acute sickle cell pain crisis 2. Acute symptomatic anemia secondary to #1 The patient presented with the symptoms mentioned above. She was complaining of a significant amount of pain. The patient was started on IV pain medications as well as p.o. pain medications. She was admitted and monitored closely. The patient was started on IV fluids as well as supplemental oxygen. There was no signs of infections, no fever. Patient did not have any complaints of chest pain. Her labs showed a low hemoglobin and the patient received 1 unit PRBCs. She also had an elevated reticulocyte count as well as an elevated LDH which is consistent with her diagnosis. After a few days of treatment with pain medications IV fluids and supplemental oxygen the patient's symptoms improved. She is now stable will be discharged today. Eforsce was checked and the patient had a prescription for 30 days of methadone filled approximately 3 weeks ago. The patient states she still has the medication at home and will continue to take the medication at home as needed. No prescription for pain medication will be given to the patient on discharge. Currently she is pain-free. She says she has a primary care doctor and will follow up with him in the next 1 -2 weeks. 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 - Time Spent with Patient Total time spent providing and/or coordinating discharge services: Greater than 30 minutes - Quality: VTE Deep Vein Thrombosis/Pulmonary Embolism Present on Admission: No Exam Vital signs: Vital Signs 05/24/18 12:00 05/24/18 16:00 05/24/18 20:00 Temperature 98.6 F 98.6 F 98.6 F Pulse Rate 91 H 86 95 H Respiratory Rate 20 20 18 Blood Pressure 113/61 106/65 110/64 Pulse Oximetry 92 L 94 L 96 05/24/18 20:23 05/24/18 23:46 05/25/18 08:00 Temperature 98.6 F 98.6 F Pulse Rate 93 H 87 Respiratory Rate 18 16 Blood Pressure 112/71 137/70 Pulse Oximetry 96 95 95 05/25/18 09:25 Temperature Pulse Rate Respiratory Rate 16 Blood Pressure Pulse Oximetry Intake & Output 05/24/18 05/25/18 05/25/18 18:59 06:59 18:59 Intake Total 360 / 360 1750 / 1750 1000 / 1000 Balance 360 / 360 1750 / 1750 1000 / 1000 Weight 60.6 kg Intake: IV 1000 / 1000 1000 / 1000 LR 1000 mL Inj 1,000 ML @ 125 1000 / 1000 1000 / 1000 mls/hr IV.CONT .Q8H [facility] Rx#: [id number] Oral 360 / 360 750 / 750 Other: # Voids 5 4 Date of Last Bowel Movement 05/22/18 05/24/18 05/24/18 # Bowel Movements 2 1 Narrative: General patient laying in bed, no current complaints. Her pain has improved significantly HEENT extraocular movements are intact, clear oropharyngeal mucosa, no JVD Cardiovascular S1-S2 audible, RRR, no murmurs rubs or gallops Respiratory clear to auscultation bilaterally Abdomen soft, nontender, no abd pain. Extremities no edema 2+ distal pulses in bilateral upper and lower extremities Neuro no focal neuro deficits Results Procedures completed during hospitalization: PRBC transfusion Labs on day of discharge: Labs from last 24 hours 05/25/18 05/25/18 05/25/18 02:21 02:21 02:21 Hgb 8.4 L Cancelled Hct 22.9 L Cancelled Retic Count 5.9 H Absolute Retic 154.6 H Hematology Comments Cancelled Sodium 140 Potassium 4.0 Chloride 108 H Carbon Dioxide 26.2 Anion Gap 6 BUN 8 Creatinine 0.46 L Estimated GFR Greater than 89 Random Glucose 90 Calcium 8.1 L Magnesium 1.8 Lactate Dehydrogenase 1145 H Discharge Plan - Discharge Disposition Patient Disposition: 01 Discharge Home - Discharge Condition Condition: Good - Discharge Order Discharge Orders: Discharge Order (Routine); Ordered 05/25/18 Ordered By: Sofya Alfaro ED Use Only Admit Order (Routine); Ordered 05/20/18 Ordered By: Mignon Lin - Discharge Details Discharge Comment: Discharge patient around 4pm. - Physicians Team Primary Care Provider: Primary Care Dora Akins Attending Provider: Sofya Alfaro
[2018-05-25] MEDS ORDERED: Heparin Central Flush 100 UNIT/ML 5 ML Vial IV.FLUSH ONE (14:48)
== END 2018-05-25 15:06 | disposition home or self-care (01) | DRG 812 ==
LOC: NEPC 03:03 → NEDA 03:03 → NEPFCDU 06:49 → N04 05-23 18:00
PROVIDERS: ADMIT Hospitalist; ATTEND Hospitalist
CPT/HCPCS: 36430; 71010; 71045; 80048; 80053; 82550; 83615; 83735; 84484; 85014; 85018; 85025; 85027; 85044; 86850; 86900; 86901; 86923; 90761; 90774; 90775; 90776; 90784; 94150; 96361; 96374; 96375; 96376; 97162; 99284; 99285; C8952; J1170; J1200; J1642; J2405; J7030; J7120; P9016